=== PATIENT | male | born 1950 | race Caucasian/White ===

== ENCOUNTER → 2018-06-13 | Outpatient (CLI) | payer MEDICARE, BC ==
[2018-06-13 07:38] LABS: ALT 35 U/L (21-72); AST 35 U/L (17-59); Cholesterol 93 mg/dL (<200); HDL Cholesterol 41 mg/dL (40-60); LDL Cholesterol,Calculated 39 mg/dL (0-99); Triglycerides 67 mg/dL (<150)
== END | disposition home or self-care (01) ==
LOC: LABWHC1 06:57
PROVIDERS: ATTEND Internal Medicine Cardiovascular Disease
DX: E78.2 Mixed hyperlipidemia (principal)
CPT/HCPCS: 36415; 80061; 84450; 84460

== ENCOUNTER 2019-03-13 09:09 | Emergency (ER) | payer MEDICARE, BC ==
[2019-03-13 09:13] VITALS: BP 147/68; PULSE 60; RESP 20; TEMP 97.5
[2019-03-13] MEDS ORDERED: FAMOTIDINE 20 MG/2 ML VIAL IV STA (09:23)
[2019-03-13] MEDS ORDERED: diphenhydrAMINE 50 MG/ML 1 ML VIAL IVP STA (09:24)
--- NOTE | 2019-03-13 09:24 | ED ---
Skin/Abscess/FB HPI - General Chief complaint: Skin/Abscess/Foreign Body Stated complaint: blisters Time Seen by Provider: 03/13/19 09:15 Source: patient, family Mode of arrival: ambulatory Limitations: physical limitation - History of Present Illness Initial comments: 63-year-old male past history of insulin-dependent diabetes presenting today for chief complaint of blisters. He states he has a blister on his right anterior knee as well as the inner thighs bilaterally one on each. He denies a surrounding redness he denies any fever chills or night sweats. Patient states after working in the yard, a few hours later while driving he noticed a blister on the right knee that was itchy. Patient states at night we took off his pants he noticed 2 additional blisters one on each thigh. He states therefore fluid. She denies any enlargement or spread the blistered since yesterday evening. He denies any feelings of general malaise he denies any new medications, diarrhea, vomiting. He states he feels fine. Upon arrival pt appears well, no signs of distress. VS within acceptable limits. Afebrile. - Related Data Home Medications Medication Instructions Recorded Confirmed Ammonium Lactate Cream [Lac-Hydrin 1 applic TOPICAL DAILY 03/13/19 03/13/19 12% Cream] Aspirin [[place] Aspirin EC] 81 mg PO DAILY 03/13/19 03/13/19 Clopidogrel [Plavix] 75 mg PO DAILY 03/13/19 03/13/19 Ferrous Sulfate [Iron (65 MG 325 mg PO DAILY 03/13/19 03/13/19 Elemental)] Gabapentin [Neurontin] 300 mg PO TID 03/13/19 03/13/19 Insulin Aspart [NovoLOG] See Protocol SQ AC-TID 03/13/19 03/13/19 Insulin Glargine [Lantus] 26 units SQ DAILY 03/13/19 03/13/19 Isosorbide Mononitrate ER [Imdur] 30 mg PO DAILY 03/13/19 03/13/19 Levothyroxine Sodium [Synthroid] 137 mcg PO DAILY 03/13/19 03/13/19 Lisinopril [Zestril] 2.5 mg PO DAILY 03/13/19 03/13/19 Metoprolol Tartrate [Lopressor] 25 mg PO BID 03/13/19 03/13/19 Pantoprazole Sodium [Protonix] 40 g PO DAILY 03/13/19 03/13/19 Simvastatin [Zocor] 40 mg PO DAILY 03/13/19 03/13/19 amLODIPine [Norvasc] 5 mg PO DAILY 03/13/19 03/13/19 Previous Rx's Medication Instructions Recorded predniSONE 50 mg PO DAILY 5 Days #5 tab 03/13/19 Allergies Allergy/AdvReac Type Severity Reaction Status Date / Time No Known Allergies Allergy Verified 03/13/19 09:35 Review of Systems ROS Statement: Those systems with pertinent positive or pertinent negative responses have been documented in the HPI. ROS Other: All systems not noted in ROS Statement are negative. Past Medical History Past Medical History: Coronary Artery Disease (CAD), Diabetes Mellitus, Hyperlipidemia, Hypertension, Myocardial Infarction ([place]) History of Any Multi-Drug Resistant Organisms: None Reported Past Surgical History: Appendectomy, Coronary Bypass/CABG, Heart Catheterization With Stent Past Psychological History: No Psychological Hx Reported Smoking Status: Never smoker Past Alcohol Use History: Daily Past Drug Use History: None Reported General Exam - General Exam Comments Initial Comments: General: The patient is awake and alert, in no distress, and does not appear acutely ill. Eye: Pupils are equal, round and reactive to light, extra-ocular movements are intact. No nystagmus. There is normal conjunctiva bilaterally. No signs of icterus. Ears, nose, mouth and throat: There are moist mucous membranes and no oral l esions. Neck: The neck is supple, there is no tenderness or JVD. Cardiovascular: There is a regular rate and rhythm. No murmur, rub or gallop is appreciated. Respiratory: Lungs are clear to auscultation, respirations are non-labored, breath sounds are equal. No wheezes, stridor, rales, or rhonchi. Musculoskeletal: Normal ROM, no tenderness. Strength 5/5. Sensation intact. Pulses equal bilaterally 2+. Neurological: A&O x 3. CN II-XII intact, There are no obvious motor or sensory deficits. Coordination appears grossly intact. Speech is normal. Skin: Skin is warm and dry. 3 bullae on skin, one quarter size lesion on the right anterior knee there is no surrounding erythema. Bullae intact. Full of fluid. No evidence of blood or blood filled bullae. No tenderness. Two similar lesions on inner thighs, intact skin full of fluid < 2 inches each without surrounding erythema. No other rash upon full body examination. Psychiatric: Cooperative, appropriate mood & affect, normal judgment. Limitations: physical limitation Course Vital Signs 03/13/19 09:10 Temperature 97.5 F L Pulse Rate 60 Respiratory 20 Rate Blood Pressure 147/68 O2 Sat by Pulse 99 Oximetry Medical Decision Making - Medical Decision Making Very well-appearing 68-year-old male presented for blisters of the right knee and bilateral thighs, 3 blisters in total. There is no surrounding erythema. Nikolsky sign (-). Patient has no constitutional symptoms denies fever chills night sweats. There is no warmth to palpation of the area. There is no blood filled bullae, no evidence of hemorrhage. Patient denies any new medications. Patient denies any spread since last night of the bullae. Pt states he feels great just wanted to have them evaluated. Given physical examination I feel at this time most likely until diagnosis is bullous pemphigoid. I discussed case at length with attending provider reviewing patient medication history at this time we do no identify a specific cause. At this time given it is early in disease process there is possibility ddx of another autoimmune or other cause. Patient's laboratory studies stable. Patient glucose on the lower aspect of normal patient was provided juice. At this time we feel patient should be started on a short course of steroid 50 mg daily for 5 days and follow-up with dermatology as well as primary care provider. Patient instructed return parameters for worsening symptoms, fever spread of bullae erythema or any other concerning signs or symptoms pt is agreeable with care plan and discharge. Verbalized understanding of return parameters and was discharged appearing well - Lab Data Result diagrams: 03/13/19 09:39 03/13/19 09:37 Lab Results 03/13/19 03/13/19 Range/Units 09:37 09:39 WBC 8.1 (3.8-10.6) k/uL RBC 4.77 (4.30-5.90) m/uL Hgb 13.5 (13.0-17.5) gm/dL Hct 43.3 (39.0-53.0) % MCV 90.8 (80.0-100.0) fL MCH 28.2 (25.0-35.0) pg MCHC 31.1 (31.0-37.0) g/dL RDW 13.8 (11.5-15.5) % Plt Count 257 (150-450) k/uL Neutrophils % 61 % Lymphocytes % 24 % Monocytes % 5 % Eosinophils % 6 % Basophils % 1 % Neutrophils # 5.0 (1.3-7.7) k/uL Lymphocytes # 2.0 (1.0-4.8) k/uL Monocytes # 0.4 (0-1.0) k/uL Eosinophils # 0.5 (0-0.7) k/uL Basophils # 0.1 (0-0.2) k/uL Sodium 141 (137-145) mmol/L Potassium 5.3 H (3.5-5.1) mmol/L Chloride 109 H (98-107) mmol/L Carbon Dioxide 23 (22-30) mmol/L Anion Gap 9 mmol/L BUN 32 H (9-20) mg/dL Creatinine 1.13 (0.66-1.25) mg/dL Est GFR (CKD-EPI)AfAm 77 (>60 ml/min/1.73 sqM) Est GFR (CKD-EPI)NonAf 67 (>60 ml/min/1.73 sqM) Glucose 70 L (74-99) mg/dL Calcium 9.3 (8.4-10.2) mg/dL Total Bilirubin 0.5 (0.2-1.3) mg/dL AST 39 (17-59) U/L ALT 27 (21-72) U/L Alkaline Phosphatase 83 (38-126) U/L Total Protein 7.8 (6.3-8.2) g/dL Albumin 4.3 (3.5-5.0) g/dL Disposition Clinical Impression: Bullae, Skin disorder Disposition: HOME SELF-CARE Condition: Good Instructions (If sedation given, give patient instructions): Acute Rash (ED) Additional Instructions: Please use medication as discussed. Please follow-up with family doctor in the next 2 days, review medications. Please follow-up with dermatology in next week. Please return to emergency room if the symptoms increase or worsen or for any other concerns, increased number of blisters, redness, pain/fever. Prescriptions: predniSONE 50 mg PO DAILY 5 Days #5 tab Is patient prescribed a controlled substance at d/c from ED?: No Referrals: Mika Bell DO [Primary Care Provider] - 1-2 days Bev Alcantar MD [STAFF PHYSICIAN] - 1-2 days Time of Disposition: 10:21
[2019-03-13 09:51] LABS: Basophils # (A) 0.1 k/uL (0-0.2); Basophils % (A) 1 %; Eosinophils # (A) 0.5 k/uL (0-0.7); Eosinophils % (A) 6 %; HCT 43.3 % (39.0-53.0); HGB 13.5 gm/dL (13.0-17.5); Lymphocytes % (A) 24 %; MCH 28.2 pg (25.0-35.0); MCHC 31.1 g/dL (31.0-37.0); MCV 90.8 fL (80.0-100.0); Mean Platelet Volume 6.9; Monocytes # (A) 0.4 k/uL (0-1.0); Monocytes % (A) 5 %; Neutrophils % (A) 61 %; Platelet Count 257 k/uL (150-450); RBC 4.77 m/uL (4.30-5.90); RDW 13.8 % (11.5-15.5); WBC 8.1 k/uL (3.8-10.6)
[2019-03-13 10:05] LABS: Albumin 4.3 g/dL (3.5-5.0); Calcium 9.3 mg/dL (8.4-10.2); Potassium 5.3 mmol/L (3.5-5.1); Total Bilirubin 0.5 mg/dL (0.2-1.3); Total Protein 7.8 g/dL (6.3-8.2)
== END 2019-03-13 10:30 | disposition home or self-care (01) ==
LOC: EEVIPCON 09:09 → EC 09:09
DX: L98.9 Disorder of the skin and subcutaneous tissue, unspecified (principal); R23.8 Other skin changes; I25.10 Atherosclerotic heart disease of native coronary artery without angina pectoris; E11.9 Type 2 diabetes mellitus without complications; E78.5 Hyperlipidemia, unspecified; I10 Essential (primary) hypertension; I25.2 Old myocardial infarction; Z79.4 Long term (current) use of insulin; Z79.890 Hormone replacement therapy; Z79.899 Other long term (current) drug therapy; Z79.82 Long term (current) use of aspirin; Z79.02 Long term (current) use of antithrombotics/antiplatelets; Z95.1 Presence of aortocoronary bypass graft; Z95.5 Presence of coronary angioplasty implant and graft
CPT/HCPCS: 36415; 80053; 85025; 99283; 96374; 96375; J1200

== ENCOUNTER → 2019-08-07 | Outpatient (CLI) | payer MEDICARE, BC ==
[2019-08-07 08:37] LABS: HCT 44.4 % (39.0-53.0); HGB 12.9 gm/dL (13.0-17.5); Hypochromasia Moderate; MCH 28.4 pg (25.0-35.0); MCV 97.8 fL (80.0-100.0); Mean Platelet Volume 7.1; Platelet Count 251 k/uL (150-450); RBC 4.55 m/uL (4.30-5.90); RDW 13.9 % (11.5-15.5); WBC 6.1 k/uL (3.8-10.6)
[2019-08-07 16:41] LABS: ALT 18 U/L (10-49); AST 25 U/L (14-35); African American GFR (CKD) 79.5 (60.0-200.0); Albumin/Globulin Ratio 1.56 (1.60-3.17); Alkaline Phosphatase 88 U/L (41-126); Calcium 8.8 mg/dL (8.7-10.3); Carbon Dioxide 24.6 mmol/L (21.6-31.8); Chloride 110 mmol/L (96-109); Chol/HDL Ratio 2.73; Cholesterol 142 mg/dL (0-200); Globulin 2.5 g/dL (1.6-3.3); Glucose 127 mg/dL (70-110); Potassium 5.2 mmol/L (3.5-5.5); Sodium 145 mmol/L (135-145); Total Bilirubin 0.4 mg/dL (0.2-1.2); Total Protein 6.4 g/dL (6.2-8.2); Triglycerides <50.0 mg/dL (0.0-149.0)
[2019-08-10 17:41] LABS: Chromogranin A 455 ng/mL (0-160)
== END | disposition home or self-care (01) ==
LOC: LABWHC1 07:31
PROVIDERS: ATTEND Internal Medicine Hematology & Oncology
DX: C7A.026 Malignant carcinoid tumor of the rectum (principal); E78.2 Mixed hyperlipidemia
CPT/HCPCS: 36415; 80053; 80061; 84260; 85027; 86316

== ENCOUNTER 2020-06-03 11:13 | Emergency (ER) | payer MEDICARE, BC ==
[2020-06-03] MEDS ORDERED: SODIUM CHLORIDE 0.9% 1,000 ML IV STA (11:38)
--- NOTE | 2020-06-03 12:09 | ED ---
Extremity Problem HPI - General Chief complaint: Extremity Problem,Nontraumatic Stated complaint: rt arm pain, neck, head pain Time Seen by Provider: 06/03/20 11:22 Source: patient, family, RN notes reviewed, old records reviewed Mode of arrival: wheelchair Limitations: physical limitation - History of Present Illness Initial comments: 69-year-old male with a history of the center, heart disease, presents emergency room today with complaints of pain on the right arm going into the neck and complaining of a headache. Patient reports that he was laying down and listening to the radio when the symptoms started. He reports the pain seemed be worse with range of motion of the shoulder initially. He denies any heavy lifting fall or trauma to cause onset of pain. He does report history of stroke in the past. Patient's reports symptoms started at 10:30 this morning. He states he felt well prior to this. He states that he had no decrease [employer] strength or weakness in the arm. He states that he has no visual changes. Denies any lower extremity weakness. Patient reports that he lives with his sister whom is his legal guardian. Patient reports the pain was so bad in his arm that he had have a neck that he had have his sister helped him down the stairs. He reports the headaches and be worse after going up and down the stairs each time. - Related Data Home Medications Medication Instructions Recorded Confirmed Aspirin [[place] Aspirin EC] 81 mg PO DAILY 03/13/19 06/03/20 Clopidogrel [Plavix] 75 mg PO DAILY 03/13/19 06/03/20 Ferrous Sulfate [Iron (65 MG 325 mg PO DAILY 03/13/19 06/03/20 Elemental)] Gabapentin [Neurontin] 300 mg PO TID 03/13/19 06/03/20 Insulin Aspart [NovoLOG] See Protocol SQ AC-TID 03/13/19 06/03/20 Insulin Glargine [Lantus] 26 units SQ DAILY 03/13/19 06/03/20 Isosorbide Mononitrate ER [Imdur] 30 mg PO DAILY 03/13/19 06/03/20 Levothyroxine Sodium [Synthroid] 137 mcg PO DAILY 03/13/19 06/03/20 Metoprolol Tartrate [Lopressor] 25 mg PO BID 03/13/19 06/03/20 Pantoprazole Sodium [Protonix] 40 mg PO DAILY 03/13/19 06/03/20 Simvastatin [Zocor] 40 mg PO DAILY 03/13/19 06/03/20 amLODIPine [Norvasc] 5 mg PO DAILY 03/13/19 06/03/20 lisinopriL [Zestril] 2.5 mg PO DAILY 03/13/19 06/03/20 Allergies Allergy/AdvReac Type Severity Reaction Status Date / Time No Known Allergies Allergy Verified 06/03/20 13:32 Review of Systems ROS Statement: Those systems with pertinent positive or pertinent negative responses have been documented in the HPI. ROS Other: All systems not noted in ROS Statement are negative. Past Medical History Past Medical History: Coronary Artery Disease (CAD), Diabetes Mellitus, Hyperlipidemia, Hypertension, Myocardial Infarction ([place]) History of Any Multi-Drug Resistant Organisms: None Reported Past Surgical History: Appendectomy, Coronary Bypass/CABG, Heart Catheterization With Stent Past Psychological History: No Psychological Hx Reported Smoking Status: Never smoker Past Alcohol Use History: Daily Past Drug Use History: None Reported General Exam - General Exam Comments Initial Comments: 69-year-old male. Patient has significant stutter. Limitations: physical limitation General appearance: alert, in no apparent distress Head exam: Present: atraumatic, normocephalic, normal inspection Eye exam: Present: normal appearance, PERRL, EOMI. Absent: scleral icterus, conjunctival injection, periorbital swelling ENT exam: Present: normal exam, mucous membranes moist Neck exam: Present: normal inspection. Absent: tenderness, meningismus, lymphadenopathy Respiratory exam: Present: normal lung sounds bilaterally. Absent: respiratory distress, wheezes, rales, rhonchi, stridor Cardiovascular Exam: Present: regular rate, normal rhythm, normal heart sounds. Absent: systolic murmur, diastolic murmur, rubs, gallop, clicks GI/Abdominal exam: Present: soft, normal bowel sounds. Absent: distended, tenderness, guarding, rebound, rigid Extremities exam: Present: normal inspection, full ROM, normal capillary refill. Absent: tenderness, pedal edema, joint swelling, calf tenderness Back exam: Present: normal inspection Neurological exam: Present: alert, oriented X3, CN II-XII intact Psychiatric exam: Present: normal affect Course Vital Signs 08/05/20 08/05/20 08/05/20 11:16 12:27 13:09 Temperature 97.7 F Pulse Rate 63 61 58 L Respiratory 18 18 16 Rate Blood Pressure 118/77 181/63 147/69 O2 Sat by Pulse 99 100 99 Oximetry Medical Decision Making - Medical Decision Making 69-year-old male presents emergency room today with his sister, his guardian with chief complaint of onset of right-sided shoulder and neck pain and no head pain starting today at 10:30 this morning. Patient is emergency department. No distress. He has full range of motion of the arm and neck. Patient reported the pain was worse after going down the steps. Discussed possible muscular skeletal or nerve impingement injury. He doesn't complain at the scene. Concerning headache. He has no acute neurological deficits on exam initially exam. He has full range of motion of the hand shoulder and neck. Patient's labs reviewedsignificant change since mild elevated potassium but could be hemolyzed. EKG shows no acute changes. Shoulder x-rays reviewed just shows some degenerative changes but no acute fracture. CT of the brain and C-spine and C-spine were completed and showed no acute intracranial hemorrhage. No sign of cervical spine fracture. He does have degenerative changes at C2-C3 to C5-C6.Patient was noted to be hypertensive while he is making her and was given a dose of IV labetalol and blood pressure improved well. He states that even before treatment he is feeling much better of his head and neck pain. I discussed the case with Dr. Persaud whom evaluated the Patient as well. Determine most likely muscular skeletal origin with worsening pain going on the steps and advised Patient to follow-up tomorrow with his primary care doctor. At this time. Again he has no acute neurological deficits. Blood pressure is normalized he has full range of motion of the arm. - Lab Data Result diagrams: 06/03/20 11:51 06/03/20 11:51 Lab Results 06/03/20 06/03/20 06/03/20 Range/Units 11:51 11:51 11:51 WBC 7.2 (3.8-10.6) k/uL RBC 4.88 (4.30-5.90) m/uL Hgb 14.5 (13.0-17.5) gm/dL Hct 46.2 (39.0-53.0) % MCV 94.5 (80.0-100.0) fL MCH 29.6 (25.0-35.0) pg MCHC 31.3 (31.0-37.0) g/dL RDW 13.4 (11.5-15.5) % Plt Count 232 (150-450) k/uL Neutrophils % 70 % Lymphocytes % 17 % Monocytes % 5 % Eosinophils % 5 % Basophils % 2 % Neutrophils # 5.0 (1.3-7.7) k/uL Lymphocytes # 1.3 (1.0-4.8) k/uL Monocytes # 0.3 (0-1.0) k/uL Eosinophils # 0.3 (0-0.7) k/uL Basophils # 0.1 (0-0.2) k/uL PT 9.7 (9.0-12.0) sec INR 0.9 (<1.2) APTT 21.2 L (22.0-30.0) sec Sodium 137 (137-145) mmol/L Potassium 5.7 H (3.5-5.1) mmol/L Chloride 108 H (98-107) mmol/L Carbon Dioxide 23 (22-30) mmol/L Anion Gap 6 mmol/L BUN 29 H (9-20) mg/dL Creatinine 0.97 (0.66-1.25) mg/dL Est GFR (CKD-EPI)AfAm >90 (>60 ml/min/1.73 sqM) Est GFR (CKD-EPI)NonAf 80 (>60 ml/min/1.73 sqM) Glucose 216 H (74-99) mg/dL Calcium 9.2 (8.4-10.2) mg/dL Total Bilirubin 0.6 (0.2-1.3) mg/dL AST 28 (17-59) U/L ALT 15 (4-49) U/L Alkaline Phosphatase 106 (38-126) U/L Total Protein 7.3 (6.3-8.2) g/dL Albumin 4.0 (3.5-5.0) g/dL 06/03/20 12:52 Patient's EKG shows sinus bradycardia with occasional PVCs, possible left atrial monitor. Low voltage QRS. Borderline EKG. Ventricular rate of 58 bpm. Intervals 180 ms. QS duration is 84 ms. QT QTc is 402/443 ms. - Radiology Data Radiology results: report reviewed Shoulder x-ray shows no fracture dislocation evident the shoulder. Well-defined curvilinear fragment of the distal clavicle could represent products of old i njury. Alignment of the inferior clot distal clavicle to the inferior acromion is satisfactory. Moderate glenohumeral joint narrowing without significant spurring. Visually was ribs are normal. Visualization of sternal wires is noted. Computed tomography scan shows no acute fracture dislocation evident cervical spine. No acute intracranial hemorrhage or midline shift is seen. Disposition Clinical Impression: Right shoulder pain, Neck muscle spasm Disposition: HOME SELF-CARE Condition: Good Instructions (If sedation given, give patient instructions): Muscle Spasm (ED) Additional Instructions: Patient is to take Motrin Tylenol for pain. Follow-up with PCP. Return to the emergency department if any alarming signs or symptoms occur. Is patient prescribed a controlled substance at d/c from ED?: No Referrals: Mika Bell DO [Primary Care Provider] - 1-2 days Time of Disposition: 13:58
[2020-06-03 12:12] LABS: Basophils # (A) 0.1 k/uL (0-0.2); Basophils % (A) 2 %; Eosinophils # (A) 0.3 k/uL (0-0.7); Eosinophils % (A) 5 %; HCT 46.2 % (39.0-53.0); HGB 14.5 gm/dL (13.0-17.5); Lymphocytes # (A) 1.3 k/uL (1.0-4.8); Lymphocytes % (A) 17 %; MCH 29.6 pg (25.0-35.0); MCHC 31.3 g/dL (31.0-37.0); MCV 94.5 fL (80.0-100.0); Mean Platelet Volume 7.6; Monocytes # (A) 0.3 k/uL (0-1.0); Monocytes % (A) 5 %; Neutrophils % (A) 70 %; Platelet Count 232 k/uL (150-450); RBC 4.88 m/uL (4.30-5.90); RDW 13.4 % (11.5-15.5); WBC 7.2 k/uL (3.8-10.6)
[2020-06-03 12:22] LABS: ALT 15 U/L (4-49); AST 28 U/L (17-59); African American GFR (CKD) >90 (>60 ml/min/1.73 sqM); Alkaline Phosphatase 106 U/L (38-126); Anion Gap 6 mmol/L; Blood Urea Nitrogen 29 mg/dL (9-20); Calcium 9.2 mg/dL (8.4-10.2); Carbon Dioxide 23 mmol/L (22-30); Chloride 108 mmol/L (98-107); Glucose 216 mg/dL (74-99); Non-African American GFR(CKD) 80 (>60 ml/min/1.73 sqM); Potassium 5.7 mmol/L (3.5-5.1); Sodium 137 mmol/L (137-145); Total Bilirubin 0.6 mg/dL (0.2-1.3); Total Protein 7.3 g/dL (6.3-8.2)
--- NOTE | 2020-06-03 12:29 | CT ---
EXAMINATION TYPE: CT brain [facility] DATE OF EXAM: 06/03/2020 COMPARISON: NONE HISTORY: Head and neck pain, right arm numbness and pain. History of stroke. CT DLP: 1448.2 mGycm. Automated Exposure Control for Dose Reduction was Utilized. TECHNIQUE: CT scan of the head and cervical spine are performed without contrast. FINDINGS: There is no acute intracranial hemorrhage or midline shift identified. Diffuse ventricula r and sulcal prominence consistent with moderate generalized atrophy. The calvarium is intact. Persis tent anterior metopic suture incidentally noted. The globes are intact and the visualized sinuses ar e clear. Cervical spine is visualized in its entirety from C1 through upper thoracic levels and demonstrates l oss of normal cervical curvature without evidence of acute fracture or dislocation. Prevertebral sof t tissue appears within normal limits. The C1-C2 articulation is within normal limits on the coronal images. Vertebral body heights are maintained. Moderate to borderline severe multilevel spurring and disc space narrowing C3-C4 through the C6-C7 levels is present. Posterior spur disc complexes are se en effacing anterior thecal sac at these levels on sagittal and axial images. Axial images reveal uncovertebral facet spurring causing multilevel bilateral neural foraminal narrow ing. Thyroid gland is somewhat small in size. Lung apices show moderate bilateral pleural/parenchymal scarring. There is moderate to severe calcified plaque at bilateral carotid bulb level noted. IMPRESSION: 1. There is no acute fracture or dislocation evident in the cervical spine. 2. No acute intracranial hemorrhage or midline shift is seen.
--- NOTE | 2020-06-03 12:30 | XR ---
EXAMINATION TYPE: XR shoulder complete RT DATE OF EXAM: 06/03/2020 CLINICAL HISTORY: Right shoulder pain. TECHNIQUE: Three views of the right shoulder are obtained. COMPARISON: None. FINDINGS: There is no acute fracture/dislocation evident in the right shoulder. Well-defined curvili near fragment from the distal clavicle could reflect product of old injury. Alignment of the inferior distal clavicle to the inferior acromion in satisfactory. Moderate narrowing glenohumeral joint with out significant spurring. The visualized ribs are intact and unremarkable. Partial visualization of s ternal wires. IMPRESSION: As above
[2020-06-03 12:36] LABS: INR 0.9 (<1.2); Prothrombin Time 9.7 sec (9.0-12.0)
[2020-06-03] MEDS ORDERED: ORPHENADRINE 30 MG/ML 2 ML VIAL IVP STA (12:41)
[2020-06-03 12:42] LABS: Partial Thromboplastin Time 21.2 sec (22.0-30.0)
[2020-06-03] MEDS ORDERED: KETOROLAC 30 MG/ML 1 ML VIAL IVP STA (12:42)
[2020-06-03] MEDS ORDERED: LABETALOL 5 MG/ML VIAL MDV IVP STA (12:43)
[2020-06-03 13:10] VITALS: RESP 16
[2020-06-03 14:10] VITALS: BP 167/60; PULSE 72; TEMP 98
== END 2020-06-03 14:09 | disposition home or self-care (01) ==
LOC: EC 11:13
DX: M25.511 Pain in right shoulder (principal); M62.838 Other muscle spasm; I25.10 Atherosclerotic heart disease of native coronary artery without angina pectoris; I10 Essential (primary) hypertension; E11.9 Type 2 diabetes mellitus without complications; E78.5 Hyperlipidemia, unspecified; I25.2 Old myocardial infarction; Z79.890 Hormone replacement therapy; Z79.4 Long term (current) use of insulin; Z79.02 Long term (current) use of antithrombotics/antiplatelets; Z79.899 Other long term (current) drug therapy; Z95.1 Presence of aortocoronary bypass graft; Z95.5 Presence of coronary angioplasty implant and graft; Z86.73 Personal history of transient ischemic attack (TIA), and cerebral infarction without residual deficits
CPT/HCPCS: 36415; 93005; 80053; 85025; 85610; 85730; 73030; 72125; 70450; 99285; 96374; 96375 ×2; 96361 ×2; J2360; J1885

== ENCOUNTER → 2020-08-19 | Outpatient (CLI) | payer MEDICARE, BC ==
[2020-08-19 11:34] LABS: ALT 24 U/L (10-49); AST 26 U/L (14-35); Chol/HDL Ratio 3.02; Cholesterol 151 mg/dL (0-200); Triglycerides <50.0 mg/dL (0.0-149.0)
== END | disposition home or self-care (01) ==
LOC: LABWHC1 07:40
PROVIDERS: ATTEND Internal Medicine Cardiovascular Disease
DX: E78.2 Mixed hyperlipidemia (principal)
CPT/HCPCS: 36415; 80061; 84450; 84460

== ENCOUNTER 2021-03-30 14:32 | Emergency (ER) | payer MEDICARE, BC ==
--- NOTE | 2021-03-30 15:31 | ED ---
General Adult HPI - General Chief complaint: Recheck/Abnormal Lab/Rx Stated complaint: abnormal labs, sent from dr Time Seen by Provider: 03/30/21 15:30 Source: patient Mode of arrival: ambulatory Limitations: no limitations - History of Present Illness Initial comments: Patient is 70-year-old man here to have recheck for suspected hyperkalemia. Patient had labs drawn earlier today and received call back for potassium 6.7 -: hour(s) Severity scale (1-10): 0 Improves with: none Worsens with: none Associated Symptoms: denies other symptoms Treatments Prior to Arrival: none - Related Data Home Medications Medication Instructions Recorded Confirmed Aspirin [[place] Aspirin EC] 81 mg PO DAILY 03/13/19 03/30/21 Clopidogrel [Plavix] 75 mg PO DAILY 03/13/19 03/30/21 Ferrous Sulfate [Iron (65 MG 325 mg PO DAILY 03/13/19 03/30/21 Elemental)] Gabapentin [Neurontin] 300 mg PO TID 03/13/19 03/30/21 Isosorbide Mononitrate ER [Imdur] 30 mg PO DAILY 03/13/19 03/30/21 Levothyroxine Sodium [Synthroid] 137 mcg PO DAILY 03/13/19 03/30/21 Metoprolol Tartrate [Lopressor] 25 mg PO BID 03/13/19 03/30/21 Pantoprazole Sodium [Protonix] 40 mg PO DAILY 03/13/19 03/30/21 Simvastatin [Zocor] 40 mg PO DAILY 03/13/19 03/30/21 amLODIPine [Norvasc] 5 mg PO DAILY 03/13/19 03/30/21 Insulin Aspart [NovoLOG Flexpen] See Protocol SQ AC-TID 03/30/21 03/30/21 Insulin Glargine,Hum.rec.anlog 20 unit SQ HS 03/30/21 03/30/21 [Lantus Solostar] Lisinopril [Zestril] 10 mg PO DAILY 03/30/21 03/30/21 Allergies Allergy/AdvReac Type Severity Reaction Status Date / Time No Known Allergies Allergy Verified 03/30/21 17:17 Review of Systems ROS Statement: Those systems with pertinent positive or pertinent negative responses have been documented in the HPI. ROS Other: All systems not noted in ROS Statement are negative. Constitutional: Denies: fever, chills, weakness Respiratory: Denies: cough, dyspnea Cardiovascular: Denies: chest pain, palpitations Gastrointestinal: Denies: abdominal pain, nausea, vomiting, diarrhea Genitourinary: Denies: dysuria Musculoskeletal: Denies: back pain Skin: Denies: rash Neurological: Denies: headache, weakness Past Medical History Past Medical History: Coronary Artery Disease (CAD), Diabetes Mellitus, Hyperlipidemia, Hypertension, Myocardial Infarction ([place]) History of Any Multi-Drug Resistant Organisms: None Reported Past Surgical History: Appendectomy, Coronary Bypass/CABG, Heart Catheterization With Stent Past Psychological History: No Psychological Hx Reported Smoking Status: Never smoker Past Alcohol Use History: Daily Past Drug Use History: None Reported General Exam Limitations: no limitations General appearance: alert, in no apparent distress Head exam: Present: atraumatic, normocephalic Eye exam: Present: normal appearance. Absent: scleral icterus, conjunctival injection Respiratory exam: Present: normal lung sounds bilaterally. Absent: respiratory distress, wheezes, rales, rhonchi, stridor Cardiovascular Exam: Present: regular rate, normal rhythm, normal heart sounds. Absent: systolic murmur, diastolic murmur, rubs, gallop GI/Abdominal exam: Present: soft. Absent: distended, tenderness, guarding, rebound, rigid, mass Extremities exam: Present: normal inspection, normal capillary refill Neurological exam: Present: alert. Absent: motor sensory deficit Skin exam: Present: warm, dry, intact, normal color. Absent: rash Course Vital Signs 03/30/21 03/30/21 14:58 16:50 Temperature 97.6 F Pulse Rate 51 L 52 L Respiratory 16 18 Rate Blood Pressure 123/64 148/69 O2 Sat by Pulse 98 99 Oximetry EKG Findings - EKG Results: EKG: interpreted by ERMD, sinus rhythm, normal axis, normal QRS EKG shows: bradycardia (Rate proximally 48 bpm) Medical Decision Making - Lab Data Result diagrams: 03/30/21 15:38 03/30/21 15:38 Lab Results 03/30/21 03/30/21 03/30/21 Range/Units 15:34 15:38 15:38 WBC 6.5 (3.8-10.6) k/uL RBC 4.43 (4.30-5.90) m/uL Hgb 13.1 (13.0-17.5) gm/dL Hct 41.5 (39.0-53.0) % MCV 93.6 (80.0-100.0) fL MCH 29.7 (25.0-35.0) pg MCHC 31.7 (31.0-37.0) g/dL RDW 13.0 (11.5-15.5) % Plt Count 269 (150-450) k/uL MPV 7.0 Neutrophils % 58 % Lymphocytes % 29 % Monocytes % 5 % Eosinophils % 4 % Basophils % 1 % Neutrophils # 3.8 (1.3-7.7) k/uL Lymphocytes # 1.9 (1.0-4.8) k/uL Monocytes # 0.4 (0-1.0) k/uL Eosinophils # 0.3 (0-0.7) k/uL Basophils # 0.1 (0-0.2) k/uL Sodium 138 (137-145) mmol/L Potassium 4.3 (3.5-5.1) mmol/L Chloride 105 (98-107) mmol/L Carbon Dioxide 26 (22-30) mmol/L Anion Gap 7 mmol/L BUN 33 H (9-20) mg/dL Creatinine 1.13 (0.66-1.25) mg/dL Est GFR (CKD-EPI)AfAm 76 (>60 ml/min/1.73 sqM) Est GFR (CKD-EPI)NonAf 66 (>60 ml/min/1.73 sqM) Glucose 35 L* (74-99) mg/dL POC Glucose (mg/dL) (75-99) mg/dL POC Glu Remelt Pan Tank Operator ID Plasma Lactic Acid Selvin (0.7-2.0) mmol/L Calcium 9.6 (8.4-10.2) mg/dL Magnesium 2.1 (1.6-2.3) mg/dL Total Bilirubin 0.2 (0.2-1.3) mg/dL AST 25 (17-59) U/L ALT 14 (4-49) U/L Alkaline Phosphatase 103 (38-126) U/L Total Protein 7.7 (6.3-8.2) g/dL Albumin 4.4 (3.5-5.0) g/dL Acetone, Qual Negative (Negative) 0603/30/21 03/30/21 Range/Units 16:40 16:49 17:16 WBC (3.8-10.6) k/uL RBC (4.30-5.90) m/uL Hgb (13.0-17.5) gm/dL Hct (39.0-53.0) % MCV (80.0-100.0) fL MCH (25.0-35.0) pg MCHC (31.0-37.0) g/dL RDW (11.5-15.5) % Plt Count (150-450) k/uL MPV Neutrophils % % Lymphocytes % % Monocytes % % Eosinophils % % Basophils % % Neutrophils # (1.3-7.7) k/uL Lymphocytes # (1.0-4.8) k/uL Monocytes # (0-1.0) k/uL Eosinophils # (0-0.7) k/uL Basophils # (0-0.2) k/uL Sodium (137-145) mmol/L Potassium (3.5-5.1) mmol/L Chloride (98-107) mmol/L Carbon Dioxide (22-30) mmol/L Anion Gap mmol/L BUN (9-20) mg/dL Creatinine (0.66-1.25) mg/dL Est GFR (CKD-EPI)AfAm (>60 ml/min/1.73 sqM) Est GFR (CKD-EPI)NonAf (>60 ml/min/1.73 sqM) Glucose (74-99) mg/dL POC Glucose (mg/dL) 73 L 119 H (75-99) mg/dL POC Glu Remelt Pan Tank Operator ID Doron, Vivienne Doron, Vivienne Plasma Lactic Acid Selvin 5.1 H* (0.7-2.0) mmol/L Calcium (8.4-10.2) mg/dL Magnesium (1.6-2.3) mg/dL Total Bilirubin (0.2-1.3) mg/dL AST (17-59) U/L ALT (4-49) U/L Alkaline Phosphatase (38-126) U/L Total Protein (6.3-8.2) g/dL Albumin (3.5-5.0) g/dL Acetone, Qual (Negative) Disposition Clinical Impression: Feared condition not demonstrated Disposition: HOME SELF-CARE Condition: Good Instructions (If sedation given, give patient instructions): Hyperkalemia (ED) Is patient prescribed a controlled substance at d/c from ED?: No Referrals: Mika Bell DO [Primary Care Provider] - 1-2 days
[2021-03-30] MEDS ORDERED: SODIUM CHLORIDE 0.9% 500 ML 500 ML IV STA (15:39)
[2021-03-30 15:45] LABS: Basophils # (A) 0.1 k/uL (0-0.2); Basophils % (A) 1 %; Eosinophils # (A) 0.3 k/uL (0-0.7); Eosinophils % (A) 4 %; HCT 41.5 % (39.0-53.0); HGB 13.1 gm/dL (13.0-17.5); Lymphocytes # (A) 1.9 k/uL (1.0-4.8); Lymphocytes % (A) 29 %; MCH 29.7 pg (25.0-35.0); MCHC 31.7 g/dL (31.0-37.0); MCV 93.6 fL (80.0-100.0); Monocytes # (A) 0.4 k/uL (0-1.0); Monocytes % (A) 5 %; Neutrophils # (A) 3.8 k/uL (1.3-7.7); Neutrophils % (A) 58 %; Platelet Count 269 k/uL (150-450); RBC 4.43 m/uL (4.30-5.90); WBC 6.5 k/uL (3.8-10.6)
[2021-03-30 15:55] LABS: Magnesium 2.1 mg/dL (1.6-2.3)
[2021-03-30 15:56] LABS: Albumin 4.4 g/dL (3.5-5.0); Calcium 9.6 mg/dL (8.4-10.2); Potassium 4.3 mmol/L (3.5-5.1); Total Bilirubin 0.2 mg/dL (0.2-1.3); Total Protein 7.7 g/dL (6.3-8.2)
[2021-03-30 16:52] LABS: Glucose,Whole Blood 73 mg/dL (75-99)
[2021-03-30 17:01] VITALS: RESP 18
[2021-03-30 17:17] LABS: Glucose,Whole Blood 119 mg/dL (75-99)
[2021-03-30 18:00] LABS: Calcium 9.2 mg/dL (8.4-10.2); Potassium 4.8 mmol/L (3.5-5.1)
[2021-03-30 18:15] VITALS: BP 149/66; PULSE 67; TEMP 98.1
== END 2021-03-30 18:22 | disposition home or self-care (01) ==
LOC: EC 14:32
DX: Z71.1 Person with feared health complaint in whom no diagnosis is made (principal); E11.9 Type 2 diabetes mellitus without complications; I10 Essential (primary) hypertension; E78.5 Hyperlipidemia, unspecified; I25.2 Old myocardial infarction; Z86.79 Personal history of other diseases of the circulatory system; Z79.82 Long term (current) use of aspirin; Z79.4 Long term (current) use of insulin; Z79.899 Other long term (current) drug therapy
CPT/HCPCS: 36415; 80048; 80053; 80061; 82009; 83036; 83605; 83735; 84439; 84443; 84450; 84460; 85025; 85027; 93005; 96360; 96361; 99283

== ENCOUNTER → 2021-03-30 | Outpatient (CLI) | payer MEDICARE, BC ==
[2021-03-30 11:28] LABS: HCT 41.8 % (39.6-50.0); MCH 29.7 pg (27.0-32.0); MCHC 31.1 g/dL (32.0-37.0); MCV 95.4 fL (80.0-97.0); Mean Platelet Volume 10.2 fL (9.5-12.2); Platelet Count 236 X 10*3/uL (140-440); RBC 4.38 X 10*6/uL (4.40-5.60)
[2021-03-30 11:59] LABS: African American GFR (CKD) 58.6 (60.0-200.0); Anion Gap 5.4 mmol/L (4.00-12.00); BUN/Creat Ratio 23.57 Ratio (12.00-20.00); Calcium 9.2 mg/dL (8.7-10.3); Carbon Dioxide 27.6 mmol/L (21.6-31.8); Chol/HDL Ratio 3.45; LDL Cholesterol,Calculated 100.4 mg/dL (0.0-131.0); Non-African American GFR(CKD) 50.5 (60.0-200.0); Potassium 6.7 mmol/L (3.5-5.5); Prostate Specific Antigen 0.6 ng/mL (0.0-6.5); VLDL Calculation 14.6 mg/dL (5.00-40.00)
[2021-03-30 12:55] LABS: Hemoglobin A1C 7.8 % (4.0-6.0)
== END | disposition home or self-care (01) ==
LOC: LABWHC1 07:19
PROVIDERS: ATTEND Internal Medicine Cardiovascular Disease
DX: D29.1 Benign neoplasm of prostate (principal); I10 Essential (primary) hypertension; E78.2 Mixed hyperlipidemia; E78.5 Hyperlipidemia, unspecified; E11.65 Type 2 diabetes mellitus with hyperglycemia; E03.9 Hypothyroidism, unspecified
CPT/HCPCS: 36415; 80048; 80061; 83036; 84153; 84439; 84443; 84450; 84460; 85027

== ENCOUNTER 2022-07-01 14:49 | Emergency (ER) | payer MEDICARE, BC ==
[2022-07-01 15:11] VITALS: PULSE 74; RESP 18; TEMP 98
--- NOTE | 2022-07-01 17:05 | ED ---
General Adult HPI - General Chief complaint: Recheck/Abnormal Lab/Rx Stated complaint: Irregular labs-sent by PCP Time Seen by Provider: 07/01/22 16:34 Source: patient Mode of arrival: ambulatory Limitations: no limitations - History of Present Illness Initial comments: Patient is a 71-year-old man who presents from his primary care office for suspected hyperkalemia. Patient had recent checkup with labs drawn and was called today due to high potassium and instructed to report to the emergency department. Patient states he feels well. Denies fever, chills, shortness of breath, chest pain, abdominal pain, nausea, vomiting, paresthesias, weakness. - Related Data Home Medications Medication Instructions Recorded Confirmed Aspirin [[place] Aspirin EC] 81 mg PO DAILY 03/13/19 03/30/21 Clopidogrel [Plavix] 75 mg PO DAILY 03/13/19 03/30/21 Ferrous Sulfate [Iron (65 MG 325 mg PO DAILY 03/13/19 03/30/21 Elemental)] Gabapentin [Neurontin] 300 mg PO TID 03/13/19 03/30/21 Isosorbide Mononitrate ER [Imdur] 30 mg PO DAILY 03/13/19 03/30/21 Levothyroxine Sodium [Synthroid] 137 mcg PO DAILY 03/13/19 03/30/21 Metoprolol Tartrate [Lopressor] 25 mg PO BID 03/13/19 03/30/21 Pantoprazole Sodium [Protonix] 40 mg PO DAILY 03/13/19 03/30/21 Simvastatin [Zocor] 40 mg PO DAILY 03/13/19 03/30/21 amLODIPine [Norvasc] 5 mg PO DAILY 03/13/19 03/30/21 Insulin Aspart [NovoLOG Flexpen] See Protocol SQ AC-TID 03/30/21 03/30/21 Insulin Glargine,Hum.rec.anlog 20 unit SQ HS 03/30/21 03/30/21 [Lantus Solostar] lisinopriL [Zestril] 10 mg PO DAILY 03/30/21 03/30/21 Allergies Allergy/AdvReac Type Severity Reaction Status Date / Time No Known Allergies Allergy Verified 07/01/22 15:11 Review of Systems ROS Statement: Those systems with pertinent positive or pertinent negative responses have been documented in the HPI. ROS Other: All systems not noted in ROS Statement are negative. Past Medical History Past Medical History: Coronary Artery Disease (CAD), Diabetes Mellitus, Hyperlipidemia, Hypertension, Myocardial Infarction ([place]) History of Any Multi-Drug Resistant Organisms: None Reported Past Surgical History: Appendectomy, Coronary Bypass/CABG, Heart Catheterization With Stent Past Psychological History: No Psychological Hx Reported Smoking Status: Never smoker Past Alcohol Use History: Daily Past Drug Use History: None Reported General Exam Limitations: no limitations Course Vital Signs 07/01/22 07/01/22 15:06 17:18 Temperature 98.0 F Pulse Rate 74 Respiratory 18 Rate Blood Pressure 86/54 144/59 O2 Sat by Pulse 96 Oximetry EKG Findings - EKG Comments: EKG Findings:: EKG taken at 16:53. Sinus bradycardia, no ST or T-wave abnormalities. Ventricular rate 56. IA interval 204. QRS duration 98. QTc 43 7 Medical Decision Making - Medical Decision Making This 71-year-old male who presents for evaluation of possible hyperkalemia. Thorough history and examination were performed. Potassium is 4.8. Patient to follow-up with primary care provider. Dr. Cope is my attending. - Lab Data Result diagrams: 07/01/22 17:08 07/01/22 17:08 Lab Results 07/01/22 07/01/22 Range/Units 17:08 17:08 WBC 6.0 (3.8-10.6) k/uL RBC 4.30 (4.30-5.90) m/uL Hgb 12.8 L (13.0-17.5) gm/dL Hct 41.1 (39.0-53.0) % MCV 95.5 (80.0-100.0) fL MCH 29.8 (25.0-35.0) pg MCHC 31.2 (31.0-37.0) g/dL RDW 13.1 (11.5-15.5) % Plt Count 216 (150-450) k/uL MPV 8.3 Neutrophils % 54 % Lymphocytes % 32 % Monocytes % 6 % Eosinophils % 4 % Basophils % 2 % Neutrophils # 3.2 (1.3-7.7) k/uL Lymphocytes # 1.9 (1.0-4.8) k/uL Monocytes # 0.3 (0-1.0) k/uL Eosinophils # 0.3 (0-0.7) k/uL Basophils # 0.1 (0-0.2) k/uL Hypochromasia Slight Sodium 142 (137-145) mmol/L Potassium 4.8 (3.5-5.1) mmol/L Chloride 104 (98-107) mmol/L Carbon Dioxide 25 (22-30) mmol/L Anion Gap 13 mmol/L BUN 36 H (9-20) mg/dL Creatinine 1.13 (0.66-1.25) mg/dL Est GFR (CKD-EPI)AfAm 76 (>60 ml/min/1.73 sqM) Est GFR (CKD-EPI)NonAf 65 (>60 ml/min/1.73 sqM) Glucose 87 (74-99) mg/dL Calcium 9.2 (8.4-10.2) mg/dL Total Bilirubin 0.3 (0.2-1.3) mg/dL AST 30 (17-59) U/L ALT 28 (4-49) U/L Alkaline Phosphatase 104 (38-126) U/L Total Protein 7.0 (6.3-8.2) g/dL Albumin 4.1 (3.5-5.0) g/dL Disposition Clinical Impression: Feared condition not demonstrated Disposition: HOME SELF-CARE Condition: Good Instructions (If sedation given, give patient instructions): Hyperkalemia (ED) Additional Instructions: Follow-up with primary care provider in one to 2 days. Return to the emergency department experience new, concerning, or worsening symptoms. Is patient prescribed a controlled substance at d/c from ED?: No Referrals: Mika Bell DO [Primary Care Provider] - 1-2 days Time of Disposition: 18:05
[2022-07-01 17:23] LABS: Basophils # (A) 0.1 k/uL (0-0.2); Basophils % (A) 2 %; Eosinophils # (A) 0.3 k/uL (0-0.7); Eosinophils % (A) 4 %; HCT 41.1 % (39.0-53.0); HGB 12.8 gm/dL (13.0-17.5); Hypochromasia Slight; Lymphocytes # (A) 1.9 k/uL (1.0-4.8); Lymphocytes % (A) 32 %; MCH 29.8 pg (25.0-35.0); MCHC 31.2 g/dL (31.0-37.0); MCV 95.5 fL (80.0-100.0); Mean Platelet Volume 8.3; Monocytes # (A) 0.3 k/uL (0-1.0); Monocytes % (A) 6 %; Neutrophils # (A) 3.2 k/uL (1.3-7.7); Neutrophils % (A) 54 %; Platelet Count 216 k/uL (150-450); RDW 13.1 % (11.5-15.5)
[2022-07-01 17:35] LABS: Albumin 4.1 g/dL (3.5-5.0); Calcium 9.2 mg/dL (8.4-10.2); Potassium 4.8 mmol/L (3.5-5.1); Total Bilirubin 0.3 mg/dL (0.2-1.3)
[2022-07-01 18:39] VITALS: BP 142/80
== END 2022-07-01 18:38 | disposition home or self-care (01) ==
LOC: EC 14:49
DX: Z71.1 Person with feared health complaint in whom no diagnosis is made (principal); R00.1 Bradycardia, unspecified; I25.10 Atherosclerotic heart disease of native coronary artery without angina pectoris; E11.9 Type 2 diabetes mellitus without complications; E78.5 Hyperlipidemia, unspecified; I10 Essential (primary) hypertension; I25.2 Old myocardial infarction; Z79.82 Long term (current) use of aspirin; Z79.02 Long term (current) use of antithrombotics/antiplatelets; Z79.4 Long term (current) use of insulin; Z79.899 Other long term (current) drug therapy
CPT/HCPCS: 36415; 80053; 85025; 93005; 99283

== ENCOUNTER → 2022-07-22 | Outpatient (CLI) | payer MEDICARE, BC ==
--- NOTE | 2022-07-22 14:54 | CT ---
EXAMINATION TYPE: CT ChestAbdPelvis w con DATE OF EXAM: 07/22/2022 COMPARISON: None HISTORY: Abnormal weight loss CT DLP: 881.70 mGycm CONTRAST: CT scan of the chest, abdomen and pelvis is performed with Oral Contrast and with IV Contrast, patien t injected with 70 mL of Isovue 300. CT Chest: LUNGS: There is biapical scarring. Subpleural fibrotic changes mild in degree are seen bilaterally. T he lungs are clear and free of infiltrate or atelectasis. No pulmonary nodule or mass is detected. No pleural effusion. MEDIASTINUM: Thoracic aorta is of normal caliber. The heart is not enlarged. No evidence for media stinal mass or adenopathy. HILAR STRUCTURES: No evidence for mass. No hilar adenopathy is appreciated. OTHER: No significant abnormality. CONTRAST CT ABDOMEN AND PELVIS FINDINGS: LIVER/GB: No calcified gallstones. No space occupying hepatic lesion. Biliary tree is of normal ca liber. PANCREAS: No inflammation. No distinct mass. SPLEEN: No splenic enlargement. No lesion seen. ADRENALS: No nodule. No thickening. KIDNEYS/BLADDER: No hydronephrosis. No nephrolithiasis. No disctinct renal mass. BOWEL: Normal appendix. Normal bowel caliber. No inflammation. GENITAL ORGANS: No gross abnormality. LYMPH NODES: No greater than 1cm abdominal or pelvic lymph nodes are appreciated. AORTA: No significant abnormality. OSSEOUS STRUCTURES: Moderate to severe degenerative change scattered throughout the mid and lower tho racic spine as well as the lumbar spine. OTHER: No significant additional abnormality is seen. IMPRESSION: 1. Significant abnormality to account for the patient's symptoms of weight loss.
== END | disposition home or self-care (01) ==
LOC: RADCTMAIN 11:49
PROVIDERS: ATTEND Family Medicine
DX: R91.8 Other nonspecific abnormal finding of lung field (principal)
CPT/HCPCS: 82565; 84520; 71260; 74177; 36415; Q9967

== ENCOUNTER 2023-04-07 17:27 | Emergency (ER) | payer MEDICARE, BC ==
[2023-04-07 17:47] VITALS: RESP 18
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
--- NOTE | 2023-04-07 19:03 | XR ---
EXAMINATION TYPE: XR Hip RT and AP Pelvis DATE OF EXAM: 04/07/2023 6:27 PM INDICATION: Patient age:Male; 72 years old; Reason for study: Right hip pain; PHH. COMPARISON: None. TECHNIQUE: The right hip was examined in the frontal and lateral projections and a AP pelvis. FINDINGS: No evidence for acute process, joint dislocation or significant soft tissue swelling. Osteo phyte formation of the superior acetabulum of the hips. Cam deformities of the femoral heads. Multile french disc degeneration changes of the spine. IMPRESSION: 1. No evidence for acute process. 2. Mild hip osteoarthrosis. 3. 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 4. Severe atherosclerosis.
[2023-04-07 19:40] VITALS: BP 212/78; PULSE 62; TEMP 98.5
== END 2023-04-07 19:43 | disposition home or self-care (01) ==
LOC: EC 17:27
DX: S70.01XA Contusion of right hip, initial encounter (principal); S70.11XA Contusion of right thigh, initial encounter; S50.311A Abrasion of right elbow, initial encounter; M23.91 Unspecified internal derangement of right knee; I25.10 Atherosclerotic heart disease of native coronary artery without angina pectoris; E11.9 Type 2 diabetes mellitus without complications; E78.5 Hyperlipidemia, unspecified; I10 Essential (primary) hypertension; I25.2 Old myocardial infarction; F12.90 Cannabis use, unspecified, uncomplicated; Z79.4 Long term (current) use of insulin; Z79.899 Other long term (current) drug therapy; Z79.82 Long term (current) use of aspirin; Z79.02 Long term (current) use of antithrombotics/antiplatelets; W19.XXXA Unspecified fall, initial encounter
CPT/HCPCS: 73502; 99283

== ENCOUNTER 2023-04-13 12:33 | Inpatient (IN) | payer MEDICARE, BC ==
[2023-04-13 12:42] LABS: Glucose,Whole Blood 115 mg/dL (70-110)
[2023-04-13] MEDS ORDERED: SODIUM CHLORIDE 0.9% 1,000 ML IV STA (12:54)
[2023-04-13 13:06] LABS: Glucose,Whole Blood 58 mg/dL (70-110)
--- NOTE | 2023-04-13 13:28 | ED ---
General Adult HPI - General Chief complaint: Recheck/Abnormal Lab/Rx Stated complaint: Diabetes Time Seen by Provider: 04/13/23 12:36 Source: patient, RN notes reviewed, old records reviewed Mode of arrival: EMS Limitations: physical limitation - History of Present Illness Initial comments: Patient is a 72-year-old male with past medical history remarkable for diabetes presents in the department complaining of multiple episodes of fainting at home secondary to low blood sugar. Has occurred 5 times over the last few days. Takes 24 units Lantus in the morning and 4 units NovoLog 3 times a day. Patient's sister is his guardian. States he has had episodes where he passes out. Resolved when replenishment here. Had another episode prior to arrival with a blood sugar of 40. Patient is improved now. Did receive 1 amp of dextrose prior to arrival. Currently is alert and oriented 4 with no acute neurological deficits. Complaining of right hip pain from a fall last week. Denies any headaches, neck pain. Denies any chest pain or shortness of breath. Denies any diarrhea, nausea, vomiting. Denies any fevers. His no other acute complaints at this time. Presents for further evaluation at this time. - Related Data Home Medications Medication Instructions Recorded Confirmed Aspirin [Ashe Aspirin EC] 81 mg PO DAILY 03/13/19 04/13/23 Ferrous Sulfate [Iron (65 MG 325 mg PO DAILY 03/13/19 04/13/23 Elemental)] Gabapentin [Neurontin] 300 mg PO TID 03/13/19 04/13/23 Isosorbide Mononitrate ER [Imdur] 30 mg PO DAILY 03/13/19 04/13/23 Levothyroxine Sodium [Synthroid] 137 mcg PO DAILY 03/13/19 04/13/23 Metoprolol Tartrate [Lopressor] 25 mg PO DAILY 03/13/19 04/13/23 Pantoprazole Sodium [Protonix] 40 mg PO DAILY 03/13/19 04/13/23 Insulin Aspart [NovoLOG Flexpen] See Protocol SQ AC-TID 03/30/21 04/13/23 Insulin Glargine,Hum.rec.anlog 20 unit SQ DAILY 03/30/21 04/13/23 [Lantus Solostar] Ammonium Lactate Cream [Lac-Hydrin 1 applic TOPICAL BID PRN 04/13/23 04/13/23 12% Cream] Atorvastatin [Lipitor] 80 mg PO DAILY 04/13/23 04/13/23 Empagliflozin [Jardiance] 25 mg PO DAILY 04/13/23 04/13/23 Escitalopram [Lexapro] 10 mg PO DAILY 04/13/23 04/13/23 Glucagon Emergency Kit 1 mg IM ONCE PRN 04/13/23 04/13/23 Solifenacin Succinate [Vesicare] 5 mg PO DAILY 04/13/23 04/13/23 metFORMIN HCL ER [Glucophage XR] 1,000 mg PO W/SUPPER 04/13/23 04/13/23 Allergies Allergy/AdvReac Type Severity Reaction Status Date / Time No Known Allergies Allergy Verified 04/13/23 14:10 Review of Systems ROS Statement: Those systems with pertinent positive or pertinent negative responses have been documented in the HPI. Review of Systems: CONST: Denies fever EYES: Denies blurry vision ENT: Denies nasal congestion C/V: Denies Chest pain RESP: Denies shortness of breath GI: Denies abdominal pain : Denies dysuria SKIN: Denies rash. MSK: Endorses right hip pain NEURO: Denies headache ROS Other: All systems not noted in ROS Statement are negative. Past Medical History Past Medical History: Coronary Artery Disease (CAD), Diabetes Mellitus, Hyperlipidemia, Hypertension, Myocardial Infarction (OK) History of Any Multi-Drug Resistant Organisms: None Reported Past Surgical History: Appendectomy, Coronary Bypass/CABG, Heart Catheterization With Stent Past Psychological History: No Psychological Hx Reported Smoking Status: Never smoker Past Alcohol Use History: Daily Past Drug Use History: Marijuana General Exam - General Exam Comments Initial Comments: General: Appears in no acute distress. HEAD: Normal with no signs of head trauma. EYES: PERRLA, EOMI, conjunctiva normal, no discharge. Pupils are 3 mm equal bilaterally. ENT: Hearing grossly intact, normal oropharynx. Moist mucous membranes. RESPIRATORY: Clear breath sounds bilaterally. No wheezes, rales, or rhonchi. C/V: Regular rate and rhythm. S1 and S2 auscultated, no edema, peripheral pulses 2+ and intact throughout ABD: Abd is soft, nontender, nondistended EXT: Normal range of motion, no obvious deformity. Tenderness to palpation of the right hip. No deformities. SKIN: No rashes or lesions observed on exposed skin. NEURO: Alert and oriented x 4. Cranial nerves II-XII intact. No focal sensory or strength deficits. GCS of 15. Limitations: physical limitation Course Vital Signs 04/13/23 12:37 Temperature 97.6 F Pulse Rate 78 Respiratory 18 Rate Blood Pressure 211/85 O2 Sat by Pulse 96 Oximetry Medical Decision Making - Medical Decision Making Was pt. sent in by a medical professional or institution (, PA, EXCEPTIONAL STUDENT EDUCATION TEACHER, urgent c are, hospital, or prison...) When possible be specific @ -No Did you speak to anyone other than the patient for history (EMS, parent, family, police, friend...)? What history was obtained from this source @ -Patient's sisters at bedside, who is the patient's guardian and provides past medical history the patient including medications. Did you review nursing and triage notes (agree or disagree)? Why? @ -I reviewed and agree with nursing and triage notes Were old charts reviewed (outside hosp., previous admission, EMS record, old EKG, old radiological studies, urgent care reports/EKG's, prison records)? Report findings @ -No old charts were reviewed Differential Diagnosis (chest pain, altered mental status, abdominal pain women, abdominal pain men, vaginal bleeding, weakness, fever, dyspnea, syncope, headache, dizziness, GI bleed, back pain, seizure, CVA, palpatations, mental health, musculoskeletal)? @ -Differential Syncope: Valvular disease, hypertrophic cardiomyopathy, pulmonary embolism, tamponade, tachycardia, bradycardia, OK, hypovolemia, hemorrhage, dissection, anemia, intracranial hemorrhage, seizure, hypoglycemia, carbon monoxide poisoning, this is not meant to be an all-inclusive list. EKG interpreted by me (3pts min.). @ -As above X-rays interpreted by me (1pt min.). @ -Patient's chest x-ray revealed no obvious acute cardio, process. Pelvis x- ray reveals a possible right femoral fracture. Radiology Recommend CT for definitive imaging. CT interpreted by me (1pt min.). @ -CT brain and C-spine negative for any acute intracranial process or cervical spine injury. Patient's CT right hip does reveal a right nondisplaced comminuted greater trochanteric fracture U/S interpreted by me (1pt. min.). @ -None done What testing was considered but not performed or refused? (CT, X-rays, U/S, labs)? Why? @ -None What meds were considered but not given or refused? Why? @ -Patient initially declined pain medications. Did you discuss the management of the patient with other professionals (professionals i.e. , PA, EXCEPTIONAL STUDENT EDUCATION TEACHER, lab, RT, psych nurse, dialysis social worker, management liaison, teacher, motorcycle police officer, pillowcase folder)? Give summary @ -I spoke with orthopedic mid-level provider Vicki as well as Dr. Barnett who accepted the consult will request the patient be made a medical admit as the fracture is nonoperative. I believe this is reasonable. I spoke with Dr. Parks who did accept the admission to his service. Was smoking cessation discussed for >3mins.? @ -No Was critical care preformed (if so, how long)? @ -No Were there social determinants of health that impacted care today? How? (Homelessness, low income, unemployed, alcoholism, drug addiction, transportation, low edu. Level, literacy, decrease access to med. care, [facility], rehab)? @ -No Was there de-escalation of care discussed even if they declined (Discuss DNR or withdrawal of care, Hospice)? DNR status @ -No What co-morbidities impacted this encounter? (DM, HTN, Smoking, COPD, CAD, Cancer, CVA, ARF, Chemo, Hep., AIDS, mental health diagnosis, sleep apnea, morbid obesity)? @ -None Was patient admitted / discharged? Hospital course, mention meds given and route, prescriptions, significant lab abnormalities, going to OR and other pertinent info. @ -Based on the patient's presentation and physical exam, I'm concerned for hypoglycemic episodes causing his syncopal episodes. Has had low blood sugar every time these occur. He is complaining of right hip pain. Unknown is if he lost consciousness. Is not on thinners. Due to his age we will obtain CT imaging of the brain and neck as well as chest x-ray and pelvic x-ray. We will obtain basic labs as well. He will likely be admitted for the recurrent episodes of hypoglycemia. As been compliant with his insulin medication. He was in agreement this plan. No other acute complaints at this time. Patient is hypertensive initially, but it is improving. I do believe it is likely secondary to stress and we will continue to monitor. Patient's labs returned within acceptable limits. Patient became hypoglycemic once here in the department was given an amp of D50 with recovery. Patient's initial imaging negative for any obvious fracture except for possibly the right hip. CT brain and C-spine negative for any obvious acute injury. We did obtain a CT of the right hip at this time which did reveal a minimally displaced comminuted right greater trochanteric fracture. I did the patient. He will be admitted for further monitoring. I spoke with orthopedic mid-level provider Vicki as well as Dr. Barnett who accepted the consult will request the patient be made a medical admit as the fracture is nonoperative. I believe this is reasonable. I spoke with Dr. Parks who did accept the admission to his service. Undiagnosed new problem with uncertain prognosis? @ -No Drug Therapy requiring intensive monitoring for toxicity (Heparin, Nitro, Insulin, Cardizem)? @ -No Were any procedures done? @ -No Diagnosis/symptom? @ -Hypoglycemia, right comminuted greater trochanteric fracture Acute, or Chronic, or Acute on Chronic? @ -Acute Uncomplicated (without systemic symptoms) or Complicated (systemic symptoms)? @ -Complicated Side effects of treatment? @ -No Exacerbation, Progression, or Severe Exacerbation? @ -No Poses a threat to life or bodily function? How? (Chest pain, USA, OK, pneumonia, PE, COPD, DKA, ARF, appy, cholecystitis, CVA, Diverticulitis, Homicidal, Suicidal, threat to staff... and all critical care pts) @ -Yes - Lab Data Result diagrams: 04/13/23 13:00 04/13/23 13:00 Lab Results 04/13/23 04/13/23 04/13/23 Range/Units 12:41 13:00 13:00 WBC 7.8 (3.8-10.6) k/uL RBC 4.22 L (4.30-5.90) m/uL Hgb 12.0 L (13.0-17.5) gm/dL Hct 39.7 (39.0-53.0) % MCV 94.2 (80.0-100.0) fL MCH 28.5 (25.0-35.0) pg MCHC 30.3 L (31.0-37.0) g/dL RDW 15.2 (11.5-15.5) % Plt Count 271 (150-450) k/uL MPV 8.0 Neutrophils % 78 % Lymphocytes % 13 % Monocytes % 5 % Eosinophils % 3 % Basophils % 1 % Neutrophils # 6.1 (1.3-7.7) k/uL Lymphocytes # 1.0 (1.0-4.8) k/uL Monocytes # 0.4 (0-1.0) k/uL Eosinophils # 0.2 (0-0.7) k/uL Basophils # 0.0 (0-0.2) k/uL Hypochromasia Slight PT 9.7 (9.0-12.0) sec INR 0.9 (<1.2) APTT 23.1 (22.0-30.0) sec Sodium (137-145) mmol/L Potassium (3.5-5.1) mmol/L Chloride (98-107) mmol/L Carbon Dioxide (22-30) mmol/L Anion Gap mmol/L BUN (9-20) mg/dL Creatinine (0.66-1.25) mg/dL Est GFR (CKD-EPI)AfAm (>60 ml/min/1.73 sqM) Est GFR (CKD-EPI)NonAf (>60 ml/min/1.73 sqM) Glucose (74-99) mg/dL POC Glucose (mg/dL) 115 H (70-110) mg/dL POC Glu Certified Professional Ergonomist ID Delroy Topete Calcium (8.4-10.2) mg/dL Magnesium (1.6-2.3) mg/dL Total Bilirubin (0.2-1.3) mg/dL AST (17-59) U/L ALT (4-49) U/L Alkaline Phosphatase (38-126) U/L Total Protein (6.3-8.2) g/dL Albumin (3.5-5.0) g/dL Urine Color Urine Appearance (Clear) Urine pH (5.0-8.0) Ur Specific [place] (1.001-1.035) Urine Protein (Negative) Urine Glucose (UA) (Negative) Urine Ketones (Negative) Urine Blood (Negative) Urine Nitrite (Negative) Urine Bilirubin (Negative) Urine Urobilinogen (<2.0) mg/dL Ur Leukocyte Esterase (Negative) Serum Alcohol mg/dL 06/04/13/23 04/13/23 Range/Units 13:00 13:00 13:03 WBC (3.8-10.6) k/uL RBC (4.30-5.90) m/uL Hgb (13.0-17.5) gm/dL Hct (39.0-53.0) % MCV (80.0-100.0) fL MCH (25.0-35.0) pg MCHC (31.0-37.0) g/dL RDW (11.5-15.5) % Plt Count (150-450) k/uL MPV Neutrophils % % Lymphocytes % % Monocytes % % Eosinophils % % Basophils % % Neutrophils # (1.3-7.7) k/uL Lymphocytes # (1.0-4.8) k/uL Monocytes # (0-1.0) k/uL Eosinophils # (0-0.7) k/uL Basophils # (0-0.2) k/uL Hypochromasia PT (9.0-12.0) sec INR (<1.2) APTT (22.0-30.0) sec Sodium 141 (137-145) mmol/L Potassium 4.4 (3.5-5.1) mmol/L Chloride 110 H (98-107) mmol/L Carbon Dioxide 26 (22-30) mmol/L Anion Gap 5 mmol/L BUN 28 H (9-20) mg/dL Creatinine 0.94 (0.66-1.25) mg/dL Est GFR (CKD-EPI)AfAm >90 (>60 ml/min/1.73 sqM) Est GFR (CKD-EPI)NonAf 81 (>60 ml/min/1.73 sqM) Glucose 48 L* (74-99) mg/dL POC Glucose (mg/dL) 58 L (70-110) mg/dL POC Glu Certified Professional Ergonomist ID Topete, Delroy Calcium 8.3 L (8.4-10.2) mg/dL Magnesium 2.0 (1.6-2.3) mg/dL Total Bilirubin 0.2 (0.2-1.3) mg/dL AST 39 (17-59) U/L ALT 32 (4-49) U/L Alkaline Phosphatase 108 (38-126) U/L Total Protein 6.7 (6.3-8.2) g/dL Albumin 3.4 L (3.5-5.0) g/dL Urine Color Light Yellow Urine Appearance Clear (Clear) Urine pH 5.5 (5.0-8.0) Ur Specific [place] 1.006 (1.001-1.035) Urine Protein Negative (Negative) Urine Glucose (UA) 3+ H (Negative) Urine Ketones Negative (Negative) Urine Blood Negative (Negative) Urine Nitrite Negative (Negative) Urine Bilirubin Negative (Negative) Urine Urobilinogen <2.0 (<2.0) mg/dL Ur Leukocyte Esterase Negative (Negative) Serum Alcohol mg/dL 04/13/23 04/13/23 04/13/23 Range/Units 14:02 14:29 15:32 WBC (3.8-10.6) k/uL RBC (4.30-5.90) m/uL Hgb (13.0-17.5) gm/dL Hct (39.0-53.0) % MCV (80.0-100.0) fL MCH (25.0-35.0) pg MCHC (31.0-37.0) g/dL RDW (11.5-15.5) % Plt Count (150-450) k/uL MPV Neutrophils % % Lymphocytes % % Monocytes % % Eosinophils % % Basophils % % Neutrophils # (1.3-7.7) k/uL Lymphocytes # (1.0-4.8) k/uL Monocytes # (0-1.0) k/uL Eosinophils # (0-0.7) k/uL Basophils # (0-0.2) k/uL Hypochromasia PT (9.0-12.0) sec INR (<1.2) APTT (22.0-30.0) sec Sodium (137-145) mmol/L Potassium (3.5-5.1) mmol/L Chloride (98-107) mmol/L Carbon Dioxide (22-30) mmol/L Anion Gap mmol/L BUN (9-20) mg/dL Creatinine (0.66-1.25) mg/dL Est GFR (CKD-EPI)AfAm (>60 ml/min/1.73 sqM) Est GFR (CKD-EPI)NonAf (>60 ml/min/1.73 sqM) Glucose (74-99) mg/dL POC Glucose (mg/dL) 106 141 H (70-110) mg/dL POC Glu Certified Professional Ergonomist ID Delroy Topete Kathryn Calcium (8.4-10.2) mg/dL Magnesium (1.6-2.3) mg/dL Total Bilirubin (0.2-1.3) mg/dL AST (17-59) U/L ALT (4-49) U/L Alkaline Phosphatase (38-126) U/L Total Protein (6.3-8.2) g/dL Albumin (3.5-5.0) g/dL Urine Color Urine Appearance (Clear) Urine pH (5.0-8.0) Ur Specific [place] (1.001-1.035) Urine Protein (Negative) Urine Glucose (UA) (Negative) Urine Ketones (Negative) Urine Blood (Negative) Urine Nitrite (Negative) Urine Bilirubin (Negative) Urine Urobilinogen (<2.0) mg/dL Ur Leukocyte Esterase (Negative) Serum Alcohol <10 mg/dL - EKG Data -: EKG Interpreted by Me EKG Comments: 12-lead Electrocardiogram Interpretation Note EKG was reviewed and interpreted by myself. 12-lead ECG performed at 1609 is interpreted by me as revealing normal sinus rhythm at a rate of 68 beats per minute. [place] is normal. NE interval is 208 ms, QRS duration is 89 ms, QTc is 436 ms.. There were no ST or T wave abnormalities to suggest myocardial ischemia or injury. R wave progression across the precordium was satisfactory. By my interpretation this EKG is non-diagnostic for acute ischemia. Disposition Clinical Impression: Fall, Hypoglycemia, Fracture of greater trochanter of right femur Disposition: ADMITTED IP TO THIS HOSP Condition: Stable Referrals: Mika Bell DO [Primary Care Provider] - 1-2 days Time of Disposition: 15:35
[2023-04-13 13:29] LABS: Basophils % (A) 1 %; Eosinophils # (A) 0.2 k/uL (0-0.7); Eosinophils % (A) 3 %; HCT 39.7 % (39.0-53.0); Hypochromasia Slight; Lymphocytes % (A) 13 %; MCH 28.5 pg (25.0-35.0); MCHC 30.3 g/dL (31.0-37.0); MCV 94.2 fL (80.0-100.0); Monocytes # (A) 0.4 k/uL (0-1.0); Monocytes % (A) 5 %; Neutrophils # (A) 6.1 k/uL (1.3-7.7); Neutrophils % (A) 78 %; Platelet Count 271 k/uL (150-450); RBC 4.22 m/uL (4.30-5.90); RDW 15.2 % (11.5-15.5); WBC 7.8 k/uL (3.8-10.6)
[2023-04-13 13:34] LABS: Appearance,Urine Clear (Clear); Bilirubin,Urine Negative (Negative); Blood,Urine Negative (Negative); Color,Urine Light Yellow; Glucose,Urine (UA) 3+ (Negative); Ketones,Urine Negative (Negative); Leukocyte Esterase,Urine Negative (Negative); Nitrite,Urine Negative (Negative); PH, Urine 5.5 (5.0-8.0); Protein,Urine Negative (Negative); Specific Gravity,Urine 1.006 (1.001-1.035); Urobilinogen,Urine <2.0 mg/dL (<2.0)
[2023-04-13 13:38] LABS: INR 0.9 (<1.2); Partial Thromboplastin Time 23.1 sec (22.0-30.0); Prothrombin Time 9.7 sec (9.0-12.0)
[2023-04-13 13:45] LABS: ALT 32 U/L (4-49); AST 39 U/L (17-59); African American GFR (CKD) >90 (>60 ml/min/1.73 sqM); Albumin 3.4 g/dL (3.5-5.0); Alkaline Phosphatase 108 U/L (38-126); Anion Gap 5 mmol/L; Blood Urea Nitrogen 28 mg/dL (9-20); Calcium 8.3 mg/dL (8.4-10.2); Carbon Dioxide 26 mmol/L (22-30); Chloride 110 mmol/L (98-107); Non-African American GFR(CKD) 81 (>60 ml/min/1.73 sqM); Potassium 4.4 mmol/L (3.5-5.1); Sodium 141 mmol/L (137-145); Total Bilirubin 0.2 mg/dL (0.2-1.3); Total Protein 6.7 g/dL (6.3-8.2)
[2023-04-13 13:52] LABS: Glucose 48 mg/dL (74-99)
[2023-04-13] MEDS ORDERED: DEXTROSE 50% SYRINGE 50 ML IVP STA (13:55)
[2023-04-13 14:03] LABS: Glucose,Whole Blood 106 mg/dL (70-110)
--- NOTE | 2023-04-13 14:14 | XR ---
EXAMINATION TYPE: XR chest 2V DATE OF EXAM: 04/13/2023 COMPARISON: NONE TECHNIQUE: PA and lateral views submitted. HISTORY: Syncope FINDINGS: The lungs are clear and there is no pneumothorax, pleural effusion, or focal pneumonia. Heart size normal and no overt failure. Osseous structures demonstrate hypertrophic and degenerative changes of the spine. Poststernotomy changes noted. Coarsened interstitium. Arthropathy of the shoulders with di ffuse osteopenia. Questionable 5 mm right upper lobe pulmonary nodule. IMPRESSION: 1. No acute process. 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 2. There is a 5 mm right upper lobe pulmonary nodule recommend follow-up CT chest.
--- NOTE | 2023-04-13 14:16 | XR ---
EXAMINATION TYPE: XR Hip RT and AP Pelvis DATE OF EXAM: 04/13/2023 COMPARISON: NONE HISTORY: Pain TECHNIQUE: A single AP view of the pelvis is obtained. Two views of the right hip are obtained. FINDINGS: There is lucency involving the greater trochanter. The sacroiliac joints appear symmetric and unremarkable. Mild concentric narrowing in joint. Vascular calcification seen in their surgical c lips along the left lower extremity soft tissues. Spina bifida occulta of the sacrum. Two views of right hip show no acute fracture or dislocation. No focal lytic or sclerotic lesion see n in the proximal right femur. The overlying soft tissue is unremarkable. IMPRESSION: 1. Findings are highly suspicious for a mildly displaced right greater trochanter femoral fracture. R ecommend CT of the hip for confirmation.
--- NOTE | 2023-04-13 14:29 | CT ---
EXAMINATION TYPE: CT brain cspine wo con CT DLP: 1496.9 mGycm, Automated exposure control for dose reduction was used. DATE OF EXAM: 04/13/2023 2:21 PM COMPARISON: CT brain C-spine 06/03/2020. CLINICAL INDICATION:Male, 72 years old with history of syncope, fall; Fall x2. TECHNIQUE: Brain: Multiple axial CT images of the brain were obtained without IV contrast. Cspine: Axial CT images from the skull base to the inferior aspect of T2 we obtained without intraven ous contrast. Coronal and sagittal reformatted images were also reviewed. FINDINGS: Brain: Extra-axial spaces: No abnormal extra-axial fluid collections. Ventricular system: Within normal limits Cerebral parenchyma: Cerebral atrophy. No acute intraparenchymal hemorrhage or mass effect. The sorenson -white junction is well differentiated. Scattered hypoattenuating areas are seen within the white mat ter. Cerebellum: Unremarkable. Mass effect: No evidence of midline shift. Intracranial vasculature: unremarkable Soft tissues: Normal. Calvarium/osseous structures: No depressed skull fracture. Paranasal sinuses and mastoid air cells: Mild mucosal thickening of the right maxillary sinus with ai r-fluid level. The mastoid air cells are clear. Visualized orbits: Bilateral aphakia Cervical spine: Fracture: None. Osseous structures: Multilevel degenerative disc disease changes with endplate spurring and disc oste ophyte complex's. Partial visualization of median sternotomy wire. Vertebral alignment: Within normal limits. Spinal canal/Neural Foramina: Disc osteophyte complexes at C3-C4, C4-C5, C5-C6 with at least mild spi nal canal stenosis. Facet joint uncovertebral joint arthropathy scattered throughout the cervical spi ne with varying degrees of neural foraminal stenosis. Neck soft tissues: Prevertebral soft tissues are within normal limits. Other: The airway is patent. Biapical pleural-parenchymal scarring.. Marked bilateral carotid bulb ca lcifications. IMPRESSION: 1. No acute intracranial process. 2. Nonspecific white matter changes, likely secondary to chronic small vessel ischemic disease. 3. No evidence of cervical spine fracture. 4. Moderate multilevel degenerative disc disease.
[2023-04-13] MEDS ORDERED: MORPHINE SULFATE 2 MG/ML SYRINGE IVP STA (14:57)
--- NOTE | 2023-04-13 15:31 | CT ---
EXAMINATION TYPE: CT hip RT wo con CT DLP: 524.3 mGycm, Automated exposure control for dose reduction was used. DATE OF EXAM: 04/13/2023 3:17 PM COMPARISON: CT chest abdomen pelvis 07/22/2022, right hip/pelvic's radiograph 04/13/2023. CLINICAL INDICATION:Male, 72 years old with history of possible right hip fracture; PHH, possible rig ht hip fracture TECHNIQUE: Axial images were obtained of the right hip without the use of IV contrast. Additional co sabina and sagittal reformatted images and soft tissue and bone window were obtained for review. 3-D r econstruction was created on a separate workstation. FINDINGS: Acute minimally displaced comminuted fracture of the greater trochanter (series 202, image 48 through 58). No subluxation or dislocation. There is associated mild soft tissue edema. No sizable joint effusion. Degenerative changes of the visualized lower lumbar spine. Multiple calcifications i dentified within the medial thigh soft tissues. Vascular sclerosis. Distended urinary bladder. IMPRESSION: 1. Acute minimally displaced comminuted fracture of the right greater trochanter. 2. Distended urinary bladder. Consider Romeo catheter placement if patient cannot void.
[2023-04-13 15:34] LABS: Glucose,Whole Blood 141 mg/dL (70-110)
[2023-04-13] MEDS ORDERED: NALOXONE 0.4 MG/ML 1 ML VIAL IV PRN (16:18)
[2023-04-13] MEDS ORDERED: MORPHINE SULFATE 4 MG/ML SYRINGE IV PRN (16:18)
[2023-04-13 17:09] LABS: Glucose,Whole Blood 148 mg/dL (70-110)
[2023-04-13 18:37] LABS: Glucose,Whole Blood 213 mg/dL (70-110)
[2023-04-13] MEDS ORDERED: AMMONIUM LACTATE 12% CREAM 140 GM TUBE TOPICAL PRN (19:15)
[2023-04-13] MEDS ORDERED: DEXTROSE 50% SYRINGE 50 ML IVP PRN (19:17)
[2023-04-13] MEDS ORDERED: cloNIDine HCL 0.1 MG TAB PO STA (19:22)
[2023-04-13 20:47] LABS: Glucose,Whole Blood 235 mg/dL (70-110)
[2023-04-13] MEDS: GABAPENTIN 300 MG CAP PO SCH (20:48)
[2023-04-13] MEDS: INSULIN ASPART (NovoLOG) 100 UNIT/ML VIAL SQ SCH (20:48)
[2023-04-14] MEDS: DEXTROSE 50% SYRINGE 50 ML IVP PRN (01:48)
[2023-04-14 02:05] LABS: Glucose,Whole Blood 194 mg/dL (70-110)
[2023-04-14] MEDS: INSULIN ASPART (NovoLOG) 100 UNIT/ML VIAL SQ SCH ×5 (04:42→22:00)
[2023-04-14 05:18] LABS: African American GFR (CKD) >90 (>60 ml/min/1.73 sqM); Anion Gap 6 mmol/L; Blood Urea Nitrogen 24 mg/dL (9-20); Calcium 8.6 mg/dL (8.4-10.2); Carbon Dioxide 28 mmol/L (22-30); Chloride 108 mmol/L (98-107); Glucose 96 mg/dL (74-99); Non-African American GFR(CKD) 82 (>60 ml/min/1.73 sqM); Potassium 4.4 mmol/L (3.5-5.1); Sodium 142 mmol/L (137-145)
[2023-04-14 05:19] LABS: Basophils % (A) 1 %; Eosinophils # (A) 0.4 k/uL (0-0.7); Eosinophils % (A) 5 %; HCT 41.2 % (39.0-53.0); HGB 12.3 gm/dL (13.0-17.5); Hypochromasia Moderate; Lymphocytes # (A) 1.3 k/uL (1.0-4.8); Lymphocytes % (A) 18 %; MCH 28.4 pg (25.0-35.0); MCHC 29.9 g/dL (31.0-37.0); Mean Platelet Volume 7.8; Monocytes # (A) 0.5 k/uL (0-1.0); Monocytes % (A) 6 %; Neutrophils # (A) 4.9 k/uL (1.3-7.7); Neutrophils % (A) 69 %; Platelet Count 270 k/uL (150-450); RBC 4.34 m/uL (4.30-5.90); RDW 15.1 % (11.5-15.5); WBC 7.1 k/uL (3.8-10.6)
[2023-04-14 07:32] LABS: Glucose,Whole Blood 93 mg/dL (70-110)
[2023-04-14 08:42] LABS: Glucose,Whole Blood 45 mg/dL (70-110)
[2023-04-14] MEDS ORDERED: METOPROLOL TARTRATE 25 MG TAB PO SCH (09:00)
[2023-04-14] MEDS: ASPIRIN 81 MG PO SCH (09:27)
[2023-04-14] MEDS: PANTOPRAZOLE 40 MG TABLET PO SCH (09:27)
[2023-04-14] MEDS: GABAPENTIN 300 MG CAP PO SCH ×2 (09:27→22:00)
[2023-04-14] MEDS: LEVOTHYROXINE 137 MCG TAB PO SCH (09:27)
[2023-04-14] MEDS: FERROUS SULFATE 325 MG TAB PO SCH (09:27)
[2023-04-14] MEDS: ESCITALOPRAM 10 MG TAB PO SCH (09:27)
[2023-04-14] MEDS: ISOSORBIDE MONONITRATE ER 30 MG TAB.ER.24H PO SCH (09:27)
[2023-04-14] MEDS: METOPROLOL TARTRATE 25 MG TAB PO SCH ×3 (09:27→22:00)
[2023-04-14] MEDS: ATORVASTATIN 80 MG TAB PO SCH (09:27)
[2023-04-14] MEDS: LISINOPRIL-HCTZ 10-12.5 MG 1 EACH TAB PO SCH ×3 (10:39→22:00)
[2023-04-14] MEDS: TROSPIUM CHLORIDE 20 MG TABLET PO SCH (10:39)
[2023-04-14] MEDS: DAPAGLIFLOZIN PROPANEDIOL 10 MG TABLET PO SCH (10:39)
[2023-04-14 11:19] LABS: Glucose,Whole Blood 198 mg/dL (70-110)
[2023-04-14] MEDS: ENOXAPARIN 40 MG/0.4 ML SYRINGE SQ SCH (12:47)
[2023-04-14] MEDS: metFORMIN 500 MG TAB PO SCH ×2 (12:48→16:58)
--- NOTE | 2023-04-14 14:50 | P.HPIM ---
History of Present Illness H&P Date: 04/14/23 Chief Complaint: Fall This is a pleasant 72-year-old patient follows with Dr. Bell. Patient lives with his sister who is also the guardian. Patient been having hypoglycemic episodes at home. Gets tremors are noted.. About 5 times in the last few days. Patient took a fall again yesterday. Right greater trochanter minimally displaced fracture occurred. Patient's appetite is good. Last night Lantus was held. Blood glucose in the ER yesterday was 48. Patient denies any chest pain or palpitation. And a baseline patient has stuttering when he talks. Denies any fever and chills. Review of systems: GEN.: Tired EYES: None HEENT: None NECK: None RESPIRATORY: None CARDIOVASCULAR: None GASTROINTESTINAL: None GENITOURINARY: None MUSCULOSKELETAL: Joint pain LYMPHATICS: None HEMATOLOGICAL: None PSYCHIATRY: None NEUROLOGICAL: Does use a cane Past medical history to include: CAD with stent, bypass, diabetes, GERD, hypertension, hyperlipidemia, peripheral neuropathy, hypothyroid, PAD Social history: Lives with his sister GEN. Was also the guardian. Smoked about 2 packs a day for 32 years stopped in 2001. Did work at [employer]. Physical examination: VITAL SIGNS: [98.1, 62, 18, 173/66, 96% room air upon presentation GENERAL: BMI 30.1, reclining bit of a comfortable. EYES: Pupils equal. Conjunctiva normal. HEENT: External appearance of nose and ears normal, oral cavity grossly normal. NECK: JVD not raised; masses not palpable. HEART: First and second heart sounds are normal; no edema. LUNGS: Respiratory rate normal; clear to auscultation. ABDOMEN: Soft, nontender, liver spleen not palpable, no masses palpable. PSYCH: Alert and oriented x3; mood and affect normal. MUSCULOSKELETAL:No Clubbing/cyanosis;muscles-grossly intact OA NEUROLOGICAL: Stuttering. Otherwise grossly intact. LYMPHATICS: No lymph nodes palpable in the axilla and neck INVESTIGATIONS, reviewed in the clinical context: White count 7.8 hemoglobin 12 platelets 271 sodium 141 potassium 4.4 BUN 28 creatinine 0.94 blood glucose 48 UA glucose 3+ positive EKG tracing personally reviewed by me-normal sinus rhythm. Nonspecific ST-T wave changes. Chest x-ray film personally reviewed by me-unremarkable Head CT: Acute minimally displaced comminuted fracture of the right greater trochanter. Head cervical spine CT: Multilevel DJD.. No fracture. Assessment and plan: -Acute minimally displaced comminuted fracture of the right greater trochanter secondary to fall. Orthopedics consulted -Recurrent falls due to recurrent hypoglycemia. -Diabetes mellitus type 2, chronically on insulin. Uncontrolled with hypoglycemia. . Stop Lantus. Metformin, GERD and squamous. Sliding scale. -Coronary artery disease and history of stent, bypass -GERD Chronic -Hyperlipidemia Lipitor 80 -Essential hypertension, accelerated Lopressor 25 mg twice a day, started Zestoretic 08/10.5 one tablet twice a day. Started Yesterday -Hypothyroid Synthroid. Recheck TSH/free T4 -Peripheral neuropathy Cutback Neurontin 300 mg bid -Chronic bladder dysfunction Vesicare -Depression and anxiety Lexapro -Full code Stop Lantus. Lopressor Zestoretic. Follow Accu-Cheks. Await orthopedic consult input. Discussed with patient. Subcu Lovenox. PTOT. Past Medical History Past Medical History: Coronary Artery Disease (CAD), Diabetes Mellitus, GERD/Reflux, Hyperlipidemia, Hypertension, Myocardial Infarction ([place]), Thyroid Disorder Additional Past Medical History / Comment(s): neuropathy Last Myocardial Infarction Date:: unknown History of Any Multi-Drug Resistant Organisms: None Reported Past Surgical History: Appendectomy, Coronary Bypass/CABG, Heart Catheterization With Stent Past Anesthesia/Blood Transfusion Reactions: No Reported Reaction Date of Last Stent Placement:: unknown Past Psychological History: Depression Smoking Status: Former smoker Past Alcohol Use History: Daily Past Drug Use History: Marijuana - Past Family History Father Family Medical History: Congestive Heart Failure (CHF) Mother Additional Family Medical History / Comment(s): of old age. Medications and Allergies Home Medications Medication Instructions Recorded Confirmed Type Aspirin [Mystic Aspirin EC] 81 mg PO DAILY 03/13/19 04/13/23 History Ferrous Sulfate [Iron (65 MG 325 mg PO DAILY 03/13/19 04/13/23 History Elemental)] Gabapentin [Neurontin] 300 mg PO TID 03/13/19 04/13/23 History Isosorbide Mononitrate ER [Imdur] 30 mg PO DAILY 03/13/19 04/13/23 History Levothyroxine Sodium [Synthroid] 137 mcg PO DAILY 03/13/19 04/13/23 History Metoprolol Tartrate [Lopressor] 25 mg PO DAILY 03/13/19 04/13/23 History Pantoprazole Sodium [Protonix] 40 mg PO DAILY 03/13/19 04/13/23 History Insulin Aspart [NovoLOG Flexpen] See Protocol SQ AC-TID 03/30/21 04/13/23 History Insulin Glargine,Hum.rec.anlog 20 unit SQ DAILY 03/30/21 04/13/23 History [Lantus Solostar] Ammonium Lactate Cream [Lac-Hydrin 1 applic TOPICAL BID PRN 04/13/23 04/13/23 History 12% Cream] Atorvastatin [Lipitor] 80 mg PO DAILY 04/13/23 04/13/23 History Empagliflozin [Jardiance] 25 mg PO DAILY 04/13/23 04/13/23 History Escitalopram [Lexapro] 10 mg PO DAILY 04/13/23 04/13/23 History Glucagon Emergency Kit 1 mg IM ONCE PRN 04/13/23 04/13/23 History Solifenacin Succinate [Vesicare] 5 mg PO DAILY 04/13/23 04/13/23 History metFORMIN HCL ER [Glucophage XR] 1,000 mg PO W/SUPPER 04/13/23 04/13/23 History Allergies Allergy/AdvReac Type Severity Reaction Status Date / Time No Known Allergies Allergy Verified 04/13/23 14:10 Physical Exam Vitals: Vital Signs Temp Pulse Pulse Resp BP BP BP 04/14/23 09:21 04/14/23 07:18 98.1 F 62 18 211/65 211/65 04/14/23 01:39 98.4 F 61 20 155/66 04/13/23 20:00 75 20 04/13/23 19:04 98.7 F 75 20 197/72 04/13/23 18:41 98.4 F 71 19 193/73 04/13/23 18:00 72 18 173/66 04/13/23 16:23 98.4 F 77 18 193/80 04/13/23 12:37 97.6 F 78 18 211/85 Pulse Ox 04/14/23 09:21 99 04/14/23 07:18 98 04/14/23 01:39 96 04/13/23 20:00 04/13/23 19:04 97 04/13/23 18:41 97 04/13/23 18:00 97 04/13/23 16:23 98 04/13/23 12:37 96 Intake and Output 04/13/23 04/14/23 04/14/23 22:59 06:59 14:59 Output Total 400 Balance -400 Output: Urine 400 Other: Voiding Method Urinal # Voids 1 3 # Bowel Movements 1 Weight 95.254 kg Results CBC & Chem 7: 04/14/23 04:34 04/14/23 04:34 Labs: Abnormal Lab Results - Last 24 Hours (Table) 04/13/23 04/13/23 04/13/23 Range/Units 12:41 13:00 13:00 RBC 4.22 L (4.30-5.90) m/uL Hgb 12.0 L (13.0-17.5) gm/dL MCHC 30.3 L (31.0-37.0) g/dL Chloride 110 H (98-107) mmol/L BUN 28 H (9-20) mg/dL Glucose 48 L* (74-99) mg/dL POC Glucose (mg/dL) 115 H (70-110) mg/dL Hemoglobin A1c (<=6.0) % Calcium 8.3 L (8.4-10.2) mg/dL Albumin 3.4 L (3.5-5.0) g/dL Urine Glucose (UA) (Negative) 04/13/23 04/13/23 04/13/23 Range/Units 13:00 13:03 15:32 RBC (4.30-5.90) m/uL Hgb (13.0-17.5) gm/dL MCHC (31.0-37.0) g/dL Chloride (98-107) mmol/L BUN (9-20) mg/dL Glucose (74-99) mg/dL POC Glucose (mg/dL) 58 L 141 H (70-110) mg/dL Hemoglobin A1c (<=6.0) % Calcium (8.4-10.2) mg/dL Albumin (3.5-5.0) g/dL Urine Glucose (UA) 3+ H (Negative) 04/13/23 04/13/23 04/13/23 Range/Units 17:07 18:34 20:44 RBC (4.30-5.90) m/uL Hgb (13.0-17.5) gm/dL MCHC (31.0-37.0) g/dL Chloride (98-107) mmol/L BUN (9-20) mg/dL Glucose (74-99) mg/dL POC Glucose (mg/dL) 148 H 213 H 235 H (70-110) mg/dL Hemoglobin A1c (<=6.0) % Calcium (8.4-10.2) mg/dL Albumin (3.5-5.0) g/dL Urine Glucose (UA) (Negative) 04/14/23 04/14/23 04/14/23 Range/Units 01:41 02:03 04:34 RBC (4.30-5.90) m/uL Hgb (13.0-17.5) gm/dL MCHC (31.0-37.0) g/dL Chloride (98-107) mmol/L BUN (9-20) mg/dL Glucose (74-99) mg/dL POC Glucose (mg/dL) 45 L 194 H (70-110) mg/dL Hemoglobin A1c 7.7 H (<=6.0) % Calcium (8.4-10.2) mg/dL Albumin (3.5-5.0) g/dL Urine Glucose (UA) (Negative) 04/14/23 04/14/23 Range/Units 04:34 04:34 RBC (4.30-5.90) m/uL Hgb 12.3 L (13.0-17.5) gm/dL MCHC 29.9 L (31.0-37.0) g/dL Chloride 108 H (98-107) mmol/L BUN 24 H (9-20) mg/dL Glucose (74-99) mg/dL POC Glucose (mg/dL) (70-110) mg/dL Hemoglobin A1c (<=6.0) % Calcium (8.4-10.2) mg/dL Albumin (3.5-5.0) g/dL Urine Glucose (UA) (Negative) Thrombosis Risk Factor Assmnt - Choose All That Apply Any of the Below Risk Factors Present?: Yes Each Factor Represents 1 point: Obesity (BMI >25) Other Risk Factors: Yes Each Risk Factor Represents 2 Points: Age 61-74 years Other congenital or acquired thrombophilia - If yes, enter type in comment: Yes Each Risk Factor Represents 5 Points: Hip, pelvis, or leg fracture (< 1 month) Thrombosis Risk Factor Assessment Total Risk Factor Score: 8 Thrombosis Risk Factor Assessment Level: High Risk
[2023-04-14 16:32] LABS: Glucose,Whole Blood 195 mg/dL (70-110)
[2023-04-14 21:09] LABS: Glucose,Whole Blood 179 mg/dL (70-110)
--- NOTE | 2023-04-14 21:20 | P.CNOR ---
History of Present Illness - [facility] Consult date: 04/14/23 History of present illness: The patient is a very pleasant 72-year-old male admitted to internal medicine with hypoglycemia and a minimally displaced isolated greater trochanter fracture. The patient has a history of mild dementia and diabetes. The patient is a somewhat poor historian but based on his history and the records history in the chart he has had several falls over the last several days resulting from hypoglycemia. He ultimately came to the emergency department where x-rays showed an isolated and minimally displaced greater trochanter fracture. The patient was admitted to internal medicine due to his hypoglycemia causing his falls. At the time of my evaluation the patient is complaining of mild discomfort in the lateral aspect of the right hip only with motion. He states that he has fallen several times over the several days, but has been able to walk. He has no other complaints today. Past Medical History Past Medical History: Coronary Artery Disease (CAD), Diabetes Mellitus, GERD/Reflux, Hyperlipidemia, Hypertension, Myocardial Infarction ([place]), Thyroid Disorder Additional Past Medical History / Comment(s): neuropathy Last Myocardial Infarction Date:: unknown History of Any Multi-Drug Resistant Organisms: None Reported Past Surgical History: Appendectomy, Coronary Bypass/CABG, Heart Catheterization With Stent Additional Past Surgical History / Comment(s): Sister relays, "He had peripheral artery surgery too." Past Anesthesia/Blood Transfusion Reactions: No Reported Reaction Date of Last Stent Placement:: unknown Past Psychological History: Depression Smoking Status: Former smoker Past Alcohol Use History: Daily Past Drug Use History: Marijuana - Past Family History Father Family Medical History: Congestive Heart Failure (CHF) Mother Additional Family Medical History / Comment(s): of old age. Medications and Allergies Home Medications Medication Instructions Recorded Confirmed Type Aspirin [Jerome Aspirin EC] 81 mg PO DAILY 03/13/19 04/13/23 History Ferrous Sulfate [Iron (65 MG 325 mg PO DAILY 03/13/19 04/13/23 History Elemental)] Gabapentin [Neurontin] 300 mg PO TID 03/13/19 04/13/23 History Isosorbide Mononitrate ER [Imdur] 30 mg PO DAILY 03/13/19 04/13/23 History Levothyroxine Sodium [Synthroid] 137 mcg PO DAILY 03/13/19 04/13/23 History Metoprolol Tartrate [Lopressor] 25 mg PO DAILY 03/13/19 04/13/23 History Pantoprazole Sodium [Protonix] 40 mg PO DAILY 03/13/19 04/13/23 History Insulin Aspart [NovoLOG Flexpen] See Protocol SQ AC-TID 03/30/21 04/13/23 History Insulin Glargine,Hum.rec.anlog 20 unit SQ DAILY 03/30/21 04/13/23 History [Lantus Solostar] Ammonium Lactate Cream [Lac-Hydrin 1 applic TOPICAL BID PRN 04/13/23 04/13/23 History 12% Cream] Atorvastatin [Lipitor] 80 mg PO DAILY 04/13/23 04/13/23 History Empagliflozin [Jardiance] 25 mg PO DAILY 04/13/23 04/13/23 History Escitalopram [Lexapro] 10 mg PO DAILY 04/13/23 04/13/23 History Glucagon Emergency Kit 1 mg IM ONCE PRN 04/13/23 04/13/23 History Solifenacin Succinate [Vesicare] 5 mg PO DAILY 04/13/23 04/13/23 History metFORMIN HCL ER [Glucophage XR] 1,000 mg PO W/SUPPER 04/13/23 04/13/23 History Allergies Allergy/AdvReac Type Severity Reaction Status Date / Time No Known Allergies Allergy Verified 04/13/23 14:10 Physical Examination The patient is resting comfortably in his bed. His head is normocephalic and atraumatic. He demonstrates nonlabored breathing with symmetric chest expansion. His abdomen is soft and nonobese. His upper extremities without deformity. His bilateral lower extremities are without deformity. He is able to perform a straight leg raise on the right. He has no pain with passive range of motion of the hip. He has tenderness over the lateral aspect of the hip over the greater trochanter. He has no pain with logroll and heel strike. His thigh and calf are soft. Motor and sensory function are intact. Results X-rays and computed tomography scan show an isolated greater trochanter fracture with no intertrochanteric extension. - Labs Labs: Abnormal Lab Results - Last 24 Hours (Table) 04/14/23 04/14/23 04/14/23 Range/Units 01:41 02:03 04:34 Hgb (13.0-17.5) gm/dL MCHC (31.0-37.0) g/dL Chloride (98-107) mmol/L BUN (9-20) mg/dL POC Glucose (mg/dL) 45 L 194 H (70-110) mg/dL Hemoglobin A1c 7.7 H (<=6.0) % 04/14/23 04/14/23 04/14/23 Range/Units 04:34 04:34 11:18 Hgb 12.3 L (13.0-17.5) gm/dL MCHC 29.9 L (31.0-37.0) g/dL Chloride 108 H (98-107) mmol/L BUN 24 H (9-20) mg/dL POC Glucose (mg/dL) 198 H (70-110) mg/dL Hemoglobin A1c (<=6.0) % 04/14/23 04/14/23 Range/Units 16:31 21:07 Hgb (13.0-17.5) gm/dL MCHC (31.0-37.0) g/dL Chloride (98-107) mmol/L BUN (9-20) mg/dL POC Glucose (mg/dL) 195 H 179 H (70-110) mg/dL Hemoglobin A1c (<=6.0) % H & H 04/13/23 04/14/23 Range/Units 13:00 04:34 Hgb 12.0 L 12.3 L (13.0-17.5) gm/dL Hct 39.7 41.2 (39.0-53.0) % Coagulation 04/13/23 Range/Units 13:00 INR 0.9 (<1.2) Result Diagrams: 04/14/23 04:34 04/14/23 04:34 Assessment and Plan Assessment: Isolated, minimally displaced right greater trochanter fracture without CT evidence of intertrochanteric extension Diabetes Dementia Plan: A long discussion with the patient at bedside this evening, but unfortunately he is a somewhat poor historian and his sister was not available time of my adelita luation. Given the minimal displacement of the greater trochanter fracture on x-ray and computed tomography scan without evidence of intertrochanteric extension my recommendation is nonsurgical treatment. The patient can weight- bear as tolerated on his right leg with a walker. He should avoid active abduction. We briefly discussed the best way to rule out intertrochanteric extension is with an MRI, but unfortunately the patient can have it due to heart stents. Since he has minimal pain and his computed tomography scan shows no extension we will trial nonsurgical treatment. Briefly discussed the potential for completion of intertrochanteric fracture if there is in fact intertrochanteric extension, but I think this is unlikely. The patient is okay to discharge from an orthopedic standpoint when he is medically stable. He will need follow-up in the office in 1 week for repeat x-rays of the hip. Time with Patient: Greater than 30
[2023-04-15] MEDS: LEVOTHYROXINE 137 MCG TAB PO SCH (05:47)
[2023-04-15 06:14] LABS: Glucose,Whole Blood 209 mg/dL (70-110)
[2023-04-15] MEDS: metFORMIN 500 MG TAB PO SCH ×3 (06:37→17:13)
[2023-04-15] MEDS: INSULIN ASPART (NovoLOG) 100 UNIT/ML VIAL SQ SCH ×6 (06:37→20:08)
[2023-04-15] MEDS: DAPAGLIFLOZIN PROPANEDIOL 10 MG TABLET PO SCH (10:18)
[2023-04-15] MEDS: ENOXAPARIN 40 MG/0.4 ML SYRINGE SQ SCH (10:18)
[2023-04-15] MEDS: LISINOPRIL-HCTZ 10-12.5 MG 1 EACH TAB PO SCH ×2 (10:18→20:27)
[2023-04-15] MEDS: GABAPENTIN 300 MG CAP PO SCH ×2 (10:18→20:27)
[2023-04-15] MEDS: TROSPIUM CHLORIDE 20 MG TABLET PO SCH (10:18)
[2023-04-15] MEDS: PANTOPRAZOLE 40 MG TABLET PO SCH (10:19)
[2023-04-15] MEDS: ESCITALOPRAM 10 MG TAB PO SCH (10:19)
[2023-04-15] MEDS: FERROUS SULFATE 325 MG TAB PO SCH (10:19)
[2023-04-15] MEDS: ASPIRIN 81 MG PO SCH (10:19)
[2023-04-15] MEDS: METOPROLOL TARTRATE 25 MG TAB PO SCH ×2 (10:19→20:27)
[2023-04-15] MEDS: ISOSORBIDE MONONITRATE ER 30 MG TAB.ER.24H PO SCH (10:19)
[2023-04-15] MEDS: ATORVASTATIN 80 MG TAB PO SCH (10:21)
--- NOTE | 2023-04-15 10:31 | P.PN ---
Subjective Patient is doing well this morning. He has been up and walking with therapy with minimal pain. Objective - Vital Signs Vital signs: Vital Signs Temp 97.9 F 04/15/23 07:25 Pulse 62 04/15/23 07:25 Resp 16 04/15/23 07:25 BP 130/68 04/15/23 07:25 Pulse Ox 97 04/15/23 07:25 FiO2 Intake & Output 04/14/23 04/15/23 04/15/23 18:59 06:59 18:59 Intake Total 1080 250 Output Total 1300 1075 Balance -220 -825 Intake: Oral 1080 250 Output: Urine 1300 1075 Other: Voiding Method Urinal # Voids 1 - Exam Patient is sitting comfortably in bed. He has minimal pain with passive range of motion of the hip. He is mildly tender over the greater trochanter. - Labs CBC & Chem 7: 04/14/23 04:34 04/14/23 04:34 Labs: Abnormal Lab Results - Last 24 Hours (Table) 04/14/23 04/14/23 04/14/23 Range/Units 11:18 16:31 21:07 POC Glucose (mg/dL) 198 H 195 H 179 H (70-110) mg/dL 04/15/23 Range/Units 06:12 POC Glucose (mg/dL) 209 H (70-110) mg/dL Assessment and Plan Plan: Continue treatment as outlined yesterday. The patient can weight-bear as tolerated with a walker. I would avoid active abduction. He is okay to discharge from an orthopedic standpoint.
[2023-04-15 11:06] LABS: Glucose,Whole Blood 463 mg/dL (70-110)
[2023-04-15] MEDS ORDERED: INSULIN ASPART (NovoLOG) 100 UNIT/ML VIAL SQ ONE (11:30)
[2023-04-15] MEDS ORDERED: INSULIN DETEMIR (LEVEMIR) 100 UNIT/ML SYR SQ SCH ×2 (12:00→12:30)
--- NOTE | 2023-04-15 13:35 | P.PN ---
Progress Note - Text Progress Note Date: 04/15/23 Chief Complaint: Fall This is a pleasant 72-year-old patient follows with Dr. Bell. Patient lives with his sister who is also the guardian. Patient been having hypoglycemic episodes at home. Gets tremors are noted.. About 5 times in the last few days. Patient took a fall again yesterday. Right greater trochanter minimally displaced fracture occurred. Patient's appetite is good. Last night Lantus was held. Blood glucose in the ER yesterday was 48. Patient denies any chest pain or palpitation. And a baseline patient has stuttering when he talks. Denies any fever and chills. April 15: Blood glucose 463 this morning. Patient's sister the bedside. She did tell me that patient is supposed to take Lantus 26 years in the morning. She was mistakenly also given Humalog 26 units along with that. This morning patient's Levemir has been resumed. At 22 units. Extra NovoLog is being given. Watch another 24 hours. Oral intake good. Discussed with the nurse. Time spent today over 50 minutes Active Medications Acetaminophen (Acetaminophen Tab 325 Mg Tab) 650 mg PO Q6HR PRN PRN Reason: Mild Pain or Fever > 100.5 Aspirin (Aspirin 81 Mg) 81 mg PO DAILY [facility] Last Admin: 04/15/23 10:19 Dose: 81 mg Atorvastatin Calcium (Atorvastatin 80 Mg Tab) 80 mg PO DAILY [facility] Last Admin: 04/15/23 10:21 Dose: 80 mg Dapagliflozin (Dapagliflozin Propanediol 10 Mg Tablet) 10 mg PO DAILY [facility] Last Admin: 04/15/23 10:18 Dose: 10 mg Dextrose/Water (Dextrose 50% Syringe 50 Ml) 25 ml IVP PER PROTOCOL PRN; Protocol PRN Reason: Hypoglycemia Dextrose/Water (Dextrose 50% Syringe 50 Ml) 50 ml IVP PER PROTOCOL PRN; Protocol PRN Reason: Hypoglycemia Last Admin: 04/14/23 01:48 Dose: 50 ml Enoxaparin Sodium (Enoxaparin 40 Mg/0.4 Ml Syringe) 40 mg SQ DAILY [facility] Last Admin: 04/15/23 10:18 Dose: 40 mg Escitalopram Oxalate (Escitalopram 10 Mg Tab) 10 mg PO DAILY [facility] Last Admin: 04/15/23 10:19 Dose: 10 mg Ferrous Sulfate (Ferrous Sulfate 325 Mg Tab) 325 mg PO DAILY [facility] Last Admin: 04/15/23 10:19 Dose: 325 mg Gabapentin (Gabapentin 300 Mg Cap) 300 mg PO BID [facility] Last Admin: 04/15/23 10:18 Dose: 300 mg Lisinopril/HCTZ (Lisinopril-Hctz 10-12.5 Mg 1 Each Tab) 1 each PO BID [facility] Last Admin: 04/15/23 10:18 Dose: 1 each Insulin Aspart (Insulin Aspart (Novolog) 100 Unit/Ml Vial) 0 unit SQ ACHS [facility]; Protocol Last Admin: 04/15/23 11:32 Dose: Not Given Insulin Aspart (Insulin Aspart (Novolog) 100 Unit/Ml Vial) 6 unit SQ AC-TID [facility] Last Admin: 04/15/23 11:54 Dose: 6 unit Insulin Detemir (Insulin Detemir (Levemir) 100 Unit/Ml Syr) 24 unit SQ DAILY@0700 [facility] Isosorbide Mononitrate (Isosorbide Mononitrate Er 30 Mg Tab.Er.24h) 30 mg PO DAILY [facility] Last Admin: 04/15/23 10:19 Dose: 30 mg Lactic Acid (Ammonium Lactate 12% Cream 140 Gm Tube) 1 applic TOPICAL BID PRN; Protocol PRN Reason: Dry Skin Levothyroxine Sodium (Levothyroxine 137 Mcg Tab) 137 mcg PO 0630 [facility] Last Admin: 04/15/23 05:47 Dose: 137 mcg Metformin HCl (Metformin 500 Mg Tab) 500 mg PO AC-TID [facility] Last Admin: 04/15/23 11:36 Dose: 500 mg Metoprolol Tartrate (Metoprolol Tartrate 25 Mg Tab) 25 mg PO BID [facility] Last Admin: 04/15/23 10:19 Dose: 25 mg Naloxone HCl (Naloxone 0.4 Mg/Ml 1 Ml Vial) 0.2 mg IV Q2M PRN PRN Reason: Opioid Reversal Pantoprazole Sodium (Pantoprazole 40 Mg Tablet) 40 mg PO DAILY [facility] Last Admin: 04/15/23 10:19 Dose: 40 mg Trospium (Trospium Chloride 20 Mg Tablet) 20 mg PO DAILY [facility] Last Admin: 04/15/23 10:18 Dose: 20 mg Past medical history to include: CAD with stent, bypass, diabetes, GERD, hypertension, hyperlipidemia, peripheral neuropathy, hypothyroid, PAD Social history: Lives with his sister GEN. Was also the guardian. Smoked about 2 packs a day for 32 years stopped in 2001. Did work at [employer]. Physical examination: VITAL SIGNS: 97.9, 62, 16, 1:30/68, 97% room air GENERAL: BMI 30.1, reclining -comfortable. EYES: Pupils equal. Conjunctiva normal. HEENT: External appearance of nose and ears normal, oral cavity grossly normal. NECK: JVD not raised; masses not palpable. HEART: First and second heart sounds are normal; no edema. LUNGS: Respiratory rate normal; clear to auscultation. ABDOMEN: Soft, nontender, liver spleen not palpable, no masses palpable. PSYCH: Alert and oriented x3; mood and affect normal. MUSCULOSKELETAL:No Clubbing/cyanosis;muscles-grossly intact OA NEUROLOGICAL: Stuttering. Otherwise grossly intact. INVESTIGATIONS, reviewed in the clinical context: TSH 3.2 White count 7.8 hemoglobin 12 platelets 271 sodium 141 potassium 4.4 BUN 28 creatinine 0.94 blood glucose 48 UA glucose 3+ positive EKG tracing personally reviewed by me-normal sinus rhythm. Nonspecific ST-T wave changes. Chest x-ray film personally reviewed by me-unremarkable Head CT: Acute minimally displaced comminuted fracture of the right greater trochanter. Head cervical spine CT: Multilevel DJD.. No fracture. Assessment and plan: -Acute minimally displaced comminuted fracture of the right greater trochanter secondary to fall. Weightbearing as tolerated. With a walker. Avoid active abduction. Seen by Dr. Barnett from orthopedics -Recurrent falls due to recurrent hypoglycemia. -Diabetes mellitus type 2, chronically on insulin. Uncontrolled with hyperglycemia start Lantus 24 units a day... Metformin, jardiance -Coronary artery disease and history of stent, bypass Aspirin, Lopressor -GERD Protonix -Hyperlipidemia Lipitor 80 -Essential hypertension, Lopressor 25 mg twice a day, Zestoretic 10/12.5 one tablet twice a day. -Hypothyroid Synthroid. -Peripheral neuropathy Cutback Neurontin 300 mg bid -Chronic bladder dysfunction Vesicare -Depression and anxiety Lexapro -Full code Resume Lantus. Scheduled Humalog 6 units with meals. Discussed with the sister and the patient. At a nurse.
[2023-04-15 16:22] LABS: Glucose,Whole Blood 81 mg/dL (70-110)
[2023-04-15] MEDS: ACETAMINOPHEN TAB 325 MG TAB PO PRN (17:51)
[2023-04-15 20:09] LABS: Glucose,Whole Blood 143 mg/dL (70-110)
[2023-04-15] MEDS: traMADol 50 MG TAB PO PRN (20:27)
[2023-04-16 02:43] LABS: Glucose,Whole Blood 35 mg/dL (70-110)
[2023-04-16] MEDS: DEXTROSE 50% SYRINGE 50 ML IVP PRN (02:49)
[2023-04-16 03:28] LABS: Glucose,Whole Blood 171 mg/dL (70-110)
[2023-04-16 05:51] LABS: Glucose,Whole Blood 397 mg/dL (70-110)
[2023-04-16] MEDS: LEVOTHYROXINE 137 MCG TAB PO SCH (06:10)
[2023-04-16] MEDS: metFORMIN 500 MG TAB PO SCH ×3 (06:10→17:00)
[2023-04-16] MEDS: INSULIN ASPART (NovoLOG) 100 UNIT/ML VIAL SQ SCH ×7 (06:10→20:33)
[2023-04-16] MEDS ORDERED: INSULIN DETEMIR (LEVEMIR) 100 UNIT/ML SYR SQ SCH (07:00)
[2023-04-16] MEDS: ISOSORBIDE MONONITRATE ER 30 MG TAB.ER.24H PO SCH (07:56)
[2023-04-16] MEDS: METOPROLOL TARTRATE 25 MG TAB PO SCH ×2 (07:56→20:35)
[2023-04-16] MEDS: LISINOPRIL-HCTZ 10-12.5 MG 1 EACH TAB PO SCH ×2 (07:56→20:35)
[2023-04-16] MEDS: ESCITALOPRAM 10 MG TAB PO SCH (07:56)
[2023-04-16] MEDS: FERROUS SULFATE 325 MG TAB PO SCH (07:56)
[2023-04-16] MEDS: ASPIRIN 81 MG PO SCH (07:56)
[2023-04-16] MEDS: TROSPIUM CHLORIDE 20 MG TABLET PO SCH (07:56)
[2023-04-16] MEDS: PANTOPRAZOLE 40 MG TABLET PO SCH (07:56)
[2023-04-16] MEDS: ATORVASTATIN 80 MG TAB PO SCH (07:56)
[2023-04-16] MEDS: DAPAGLIFLOZIN PROPANEDIOL 10 MG TABLET PO SCH (07:56)
[2023-04-16] MEDS: GABAPENTIN 300 MG CAP PO SCH ×2 (07:56→20:35)
[2023-04-16] MEDS: ENOXAPARIN 40 MG/0.4 ML SYRINGE SQ SCH (07:57)
[2023-04-16] MEDS: ACETAMINOPHEN TAB 325 MG TAB PO PRN (08:01)
[2023-04-16 11:09] LABS: Glucose,Whole Blood 86 mg/dL (70-110)
[2023-04-16 16:13] LABS: Glucose,Whole Blood 273 mg/dL (70-110)
--- NOTE | 2023-04-16 17:58 | P.PN ---
Progress Note - Text Progress Note Date: 04/16/23 Chief Complaint: Fall This is a pleasant 72-year-old patient follows with Dr. Bell. Patient lives with his sister who is also the guardian. Patient been having hypoglycemic episodes at home. Gets tremors are noted.. About 5 times in the last few days. Patient took a fall again yesterday. Right greater trochanter minimally displaced fracture occurred. Patient's appetite is good. Last night Lantus was held. Blood glucose in the ER yesterday was 48. Patient denies any chest pain or palpitation. And a baseline patient has stuttering when he talks. Denies any fever and chills. April 15: Blood glucose 463 this morning. Patient's sister the bedside. She did tell me that patient is supposed to take Lantus 26 years in the morning. She was mistakenly also given Humalog 26 units along with that. This morning patient's Levemir has been resumed. At 22 units. Extra NovoLog is being given. Watch another 24 hours. Oral intake good. Discussed with the nurse. Time spent today over 50 minutes April 16: At about 2:30 AM she'll drop blood glucose to 35. Today patient had received 24 units of Levemir in the morning. This involving cutback to 18 units for tomorrow morning. Also scheduled NovoLog is being cut back to 4 units with meals. Discussed with the patient's sister the bedside. Depending upon what Accu-Cheks remained tomorrow patient should be able to be discharged home tomorrow evening. Active Medications Acetaminophen (Acetaminophen Tab 325 Mg Tab) 650 mg PO Q6HR PRN PRN Reason: Mild Pain or Fever > 100.5 Last Admin: 04/16/23 08:01 Dose: 650 mg Aspirin (Aspirin 81 Mg) 81 mg PO DAILY [facility] Last Admin: 04/16/23 07:56 Dose: 81 mg Atorvastatin Calcium (Atorvastatin 80 Mg Tab) 80 mg PO DAILY [facility] Last Admin: 04/16/23 07:56 Dose: 80 mg Dapagliflozin (Dapagliflozin Propanediol 10 Mg Tablet) 10 mg PO DAILY [facility] Last Admin: 04/16/23 07:56 Dose: 10 mg Dextrose/Water (Dextrose 50% Syringe 50 Ml) 25 ml IVP PER PROTOCOL PRN; Protocol PRN Reason: Hypoglycemia Dextrose/Water (Dextrose 50% Syringe 50 Ml) 50 ml IVP PER PROTOCOL PRN; Protocol PRN Reason: Hypoglycemia Last Admin: 04/16/23 02:49 Dose: 50 ml Enoxaparin Sodium (Enoxaparin 40 Mg/0.4 Ml Syringe) 40 mg SQ DAILY [facility] Last Admin: 04/16/23 07:57 Dose: 40 mg Escitalopram Oxalate (Escitalopram 10 Mg Tab) 10 mg PO DAILY [facility] Last Admin: 04/16/23 07:56 Dose: 10 mg Ferrous Sulfate (Ferrous Sulfate 325 Mg Tab) 325 mg PO DAILY [facility] Last Admin: 04/16/23 07:56 Dose: 325 mg Gabapentin (Gabapentin 300 Mg Cap) 300 mg PO BID [facility] Last Admin: 04/16/23 07:56 Dose: 300 mg Lisinopril/HCTZ (Lisinopril-Hctz 10-12.5 Mg 1 Each Tab) 1 each PO BID [facility] Last Admin: 04/16/23 07:56 Dose: 1 each Insulin Aspart (Insulin Aspart (Novolog) 100 Unit/Ml Vial) 0 unit SQ [facility]; Protocol Last Admin: 04/16/23 17:00 Dose: 6 unit Insulin Aspart (Insulin Aspart (Novolog) 100 Unit/Ml Vial) 4 unit SQ AC-TID [facility] Last Admin: 04/16/23 17:00 Dose: 4 unit Insulin Detemir (Insulin Detemir (Levemir) 100 Unit/Ml Syr) 18 unit SQ DAILY@0700 [facility] Isosorbide Mononitrate (Isosorbide Mononitrate Er 30 Mg Tab.Er.24h) 30 mg PO DAILY [facility] Last Admin: 04/16/23 07:56 Dose: 30 mg Lactic Acid (Ammonium Lactate 12% Cream 140 Gm Tube) 1 applic TOPICAL BID PRN; Protocol PRN Reason: Dry Skin Levothyroxine Sodium (Levothyroxine 137 Mcg Tab) 137 mcg PO 0630 [facility] Last Admin: 04/16/23 06:10 Dose: 137 mcg Metformin HCl (Metformin 500 Mg Tab) 500 mg PO AC-TID [facility] Last Admin: 04/16/23 17:00 Dose: 500 mg Metoprolol Tartrate (Metoprolol Tartrate 25 Mg Tab) 25 mg PO BID [facility] Last Admin: 04/16/23 07:56 Dose: 25 mg Naloxone HCl (Naloxone 0.4 Mg/Ml 1 Ml Vial) 0.2 mg IV Q2M PRN PRN Reason: Opioid Reversal Pantoprazole Sodium (Pantoprazole 40 Mg Tablet) 40 mg PO DAILY [facility] Last Admin: 04/16/23 07:56 Dose: 40 mg Tramadol HCl (Tramadol 50 Mg Tab) 50 mg PO QID PRN PRN Reason: Moderate to Severe Pain (4-10) Last Admin: 04/15/23 20:27 Dose: 50 mg Trospium (Trospium Chloride 20 Mg Tablet) 20 mg PO DAILY [facility] Last Admin: 04/16/23 07:56 Dose: 20 mg Past medical history to include: CAD with stent, bypass, diabetes, GERD, hypertension, hyperlipidemia, peripheral neuropathy, hypothyroid, PAD Social history: Lives with his sister Was also the guardian. Smoked about 2 packs a day for 32 years stopped in 2001. Did work at [employer]. Physical examination: VITAL SIGNS: 97.9, 51, 16, 109/63, 96% room air GENERAL: BMI 30.1, reclining -comfortable. EYES: Pupils equal. Conjunctiva normal. HEENT: External appearance of nose and ears normal, oral cavity grossly normal. NECK: JVD not raised; masses not palpable. HEART: First and second heart sounds are normal; no edema. LUNGS: Respiratory rate normal; clear to auscultation. ABDOMEN: Soft, nontender, liver spleen not palpable, no masses palpable. PSYCH: Alert and oriented x3; mood and affect normal. MUSCULOSKELETAL:No Clubbing/cyanosis;muscles-grossly intact OA NEUROLOGICAL: Stuttering. Otherwise grossly intact. INVESTIGATIONS, reviewed in the clinical context: TSH 3.2 White count 7.8 hemoglobin 12 platelets 271 sodium 141 potassium 4.4 BUN 28 creatinine 0.94 blood glucose 48 UA glucose 3+ positive EKG tracing personally reviewed by me-normal sinus rhythm. Nonspecific ST-T wave changes. Chest x-ray film personally reviewed by me-unremarkable Head CT: Acute minimally displaced comminuted fracture of the right greater trochanter. Head cervical spine CT: Multilevel DJD.. No fracture. Assessment and plan: -Acute minimally displaced comminuted fracture of the right greater trochanter secondary to fall. Weightbearing as tolerated. With a walker. Avoid active abduction. Seen by Dr. Barnett from orthopedics -Recurrent falls due to recurrent hypoglycemia. -Diabetes mellitus type 2, chronically on insulin. Uncontrolled with hyperglycemia and hypoglycemia. Cutback Levemir 18 units a day... Metformin, jardiance. Cutback scheduled Humalog to 4 units with meals -Coronary artery disease and history of stent, bypass Aspirin, Lopressor -GERD Protonix -Hyperlipidemia Lipitor 80 -Essential hypertension, Lopressor 25 mg twice a day, Zestoretic 1012.5 one tablet twice a day. -Hypothyroid Synthroid. -Peripheral neuropathy Cutback Neurontin 300 mg bid -Chronic bladder dysfunction Vesicare -Depression and anxiety Lexapro -Full code Cutback Humalog to 4 units with meals. Cutback Levemir to 18 units in the morning. Depending on Accu-Cheks patient can be discharged hopefully tomorrow evening. No change in current blood pressure medications.
[2023-04-16 20:30] LABS: Glucose,Whole Blood 81 mg/dL (70-110)
[2023-04-17] MEDS: traMADol 50 MG TAB PO PRN (00:47)
[2023-04-17 01:05] LABS: Glucose,Whole Blood 118 mg/dL (70-110)
[2023-04-17 05:53] LABS: Glucose,Whole Blood 206 mg/dL (70-110)
[2023-04-17] MEDS: INSULIN ASPART (NovoLOG) 100 UNIT/ML VIAL SQ SCH ×4 (06:30→11:59)
[2023-04-17] MEDS: metFORMIN 500 MG TAB PO SCH ×2 (06:30→11:59)
[2023-04-17] MEDS: LEVOTHYROXINE 137 MCG TAB PO SCH (06:30)
[2023-04-17] MEDS ORDERED: INSULIN DETEMIR (LEVEMIR) 100 UNIT/ML SYR SQ SCH (07:00)
[2023-04-17 07:24] VITALS: TEMP 97.6
[2023-04-17] MEDS: FERROUS SULFATE 325 MG TAB PO SCH (07:24)
[2023-04-17] MEDS: ISOSORBIDE MONONITRATE ER 30 MG TAB.ER.24H PO SCH (07:24)
[2023-04-17] MEDS: ASPIRIN 81 MG PO SCH (07:24)
[2023-04-17] MEDS: ENOXAPARIN 40 MG/0.4 ML SYRINGE SQ SCH (07:24)
[2023-04-17] MEDS: METOPROLOL TARTRATE 25 MG TAB PO SCH (07:24)
[2023-04-17] MEDS: PANTOPRAZOLE 40 MG TABLET PO SCH (07:24)
[2023-04-17] MEDS: GABAPENTIN 300 MG CAP PO SCH (07:24)
[2023-04-17] MEDS: ATORVASTATIN 80 MG TAB PO SCH (07:24)
[2023-04-17] MEDS: DAPAGLIFLOZIN PROPANEDIOL 10 MG TABLET PO SCH (07:25)
[2023-04-17] MEDS: LISINOPRIL-HCTZ 10-12.5 MG 1 EACH TAB PO SCH (07:25)
[2023-04-17] MEDS: ESCITALOPRAM 10 MG TAB PO SCH (07:25)
[2023-04-17] MEDS: TROSPIUM CHLORIDE 20 MG TABLET PO SCH (07:25)
[2023-04-17 07:50] VITALS: RESP 18
[2023-04-17 11:39] LABS: Glucose,Whole Blood 116 mg/dL (70-110)
[2023-04-17 13:56] VITALS: BP 103/56; PULSE 64
--- NOTE | 2023-04-17 14:08 | P.DS ---
Providers Date of admission: 04/13/23 16:20 Expected date of discharge: 04/17/23 Attending physician: José Luis Parks Consults: 04/13/23 16:18 Consult Physician Routine Consulting Provider: Piotr Barnett Consult Reason/Comments: fall, right great trochanteric fracture Do you want consulting provider notified?: Already Contacted Primary care physician: [facility] Course: Discharge diagnoses; Acute minimally displaced comminuted fracture of the right greater trochanter secondary to fall. Weightbearing as tolerated. With a walker. Avoid active abduction. Seen by Dr. Barnett from orthopedics, outpatient follow-up -Recurrent falls due to recurrent hypoglycemia. -Diabetes mellitus type 2, chronically on insulin. Uncontrolled with hyperglycemia and hypoglycemia. Cutback Levemir 18 units a day... Metformin, jardiance. Cutback scheduled Humalog to 4 units with meals -Coronary artery disease and history of stent, bypass Aspirin, Lopressor -GERD Protonix -Hyperlipidemia Lipitor 80 -Essential hypertension, Lopressor 25 mg twice a day, Zestoretic 10/12.5 one tablet twice a day. -Hypothyroid Synthroid. -Peripheral neuropathy Continue Neurontin 300 mg bid -Chronic bladder dysfunction Vesicare -Depression and anxiety [facility] course; This is a pleasant 72-year-old patient follows with Dr. Bell. Patient lives with his sister who is also the guardian. Patient been having hypoglycemic episodes at home. Gets tremors are noted.. About 5 times in the last few days. Patient took a fall again yesterday. Right greater trochanter minimally displaced fracture occurred. Patient's appetite is good. Last night Lantus was held. Blood glucose in the ER yesterday was 48. Patient denies any chest pain or palpitation. And a baseline patient has stuttering when he talks. Denies any fever and chills. April 15: Blood glucose 463 this morning. Patient's sister the bedside. She did tell me that patient is supposed to take Lantus 26 years in the morning. She was mistakenly also given Humalog 26 units along with that. This morning patient's Levemir has been resumed. At 22 units. Extra NovoLog is being given. Watch another 24 hours. Oral intake good. Discussed with the nurse. Time spent today over 50 minutes April 16: At about 2:30 AM she'll drop blood glucose to 35. Today patient had received 24 units of Levemir in the morning. This involving cutback to 18 units for tomorrow morning. Also scheduled NovoLog is being cut back to 4 units with meals. Discussed with the patient's sister the bedside. Depending upon what Accu-Cheks remained tomorrow patient should be able to be discharged home tomorrow evening. 04/17. Patient seen and examined and blood sugar is better controlled, no evide nce of hypoglycemia. Being discharged on current regimen of Lantus 18 units in the morning and NovoLog 4 units with meals PHYSICAL EXAMINATION: GENERAL: The patient is alert and oriented x3, not in any acute distress. Well developed, well nourished. HEENT: Pupils are round and equally reacting to light. EOMI. No scleral icterus. No conjunctival pallor. Normocephalic, atraumatic. No pharyngeal erythema. No thyromegaly. CARDIOVASCULAR: S1 and S2 present. No murmurs, rubs, or gallops. PULMONARY: Chest is clear to auscultation, no wheezing or crackles. ABDOMEN: Soft, nontender, nondistended, normoactive bowel sounds. No palpable organomegaly. MUSCULOSKELETAL: No joint swelling or deformity. EXTREMITIES: No cyanosis, clubbing, or pedal edema. NEUROLOGICAL: Gross neurological examination did not reveal any focal deficits. SKIN: No rashes. Patient Condition at Discharge: Stable Plan - Discharge Summary Discharge Rx Participant: No New Discharge Prescriptions: New Lisinopril-Hctz 10-12.5 mg [Zestoretic 10-12.5] 1 each PO BID #30 tab Continue Isosorbide Mononitrate ER [Imdur] 30 mg PO DAILY Pantoprazole Sodium [Protonix] 40 mg PO DAILY Metoprolol Tartrate [Lopressor] 25 mg PO DAILY Ferrous Sulfate [Iron (65 MG Elemental)] 325 mg PO DAILY Aspirin [[place] Aspirin EC] 81 mg PO DAILY Gabapentin [Neurontin] 300 mg PO TID Levothyroxine Sodium [Synthroid] 137 mcg PO DAILY Ammonium Lactate Cream [Lac-Hydrin 12% Cream] 1 applic TOPICAL BID PRN PRN Reason: Dry Skin Empagliflozin [Jardiance] 25 mg PO DAILY Glucagon Emergency Kit 1 mg IM ONCE PRN PRN Reason: LOW BLOOD SUGAR Escitalopram [Lexapro] 10 mg PO DAILY Insulin Glargine,Hum.rec.anlog [Lantus Solostar Pen] 20 unit SQ DAILY Insulin Aspart [NovoLOG Flexpen] See Protocol SQ AC-TID Atorvastatin [Lipitor] 80 mg PO DAILY metFORMIN HCL ER [Glucophage XR] 1,000 mg PO W/SUPPER Solifenacin Succinate [Vesicare] 5 mg PO DAILY Discharge Medication List Aspirin [[place] Aspirin EC] 81 mg PO DAILY 03/13/19 [History] Ferrous Sulfate [Iron (65 MG Elemental)] 325 mg PO DAILY 03/13/19 [History] Gabapentin [Neurontin] 300 mg PO TID 03/13/19 [History] Isosorbide Mononitrate ER [Imdur] 30 mg PO DAILY 03/13/19 [History] Levothyroxine Sodium [Synthroid] 137 mcg PO DAILY 03/13/19 [History] Metoprolol Tartrate [Lopressor] 25 mg PO DAILY 03/13/19 [History] Pantoprazole Sodium [Protonix] 40 mg PO DAILY 03/13/19 [History] Insulin Aspart [NovoLOG Flexpen] See Protocol SQ AC-TID 03/30/21 [History] Insulin Glargine,Hum.rec.anlog [Lantus Solostar Pen] 20 unit SQ DAILY 03/30/21 [History] Ammonium Lactate Cream [Lac-Hydrin 12% Cream] 1 applic TOPICAL BID PRN 04/13/23 [History] Atorvastatin [Lipitor] 80 mg PO DAILY 04/13/23 [History] Empagliflozin [Jardiance] 25 mg PO DAILY 04/13/23 [History] Escitalopram [Lexapro] 10 mg PO DAILY 04/13/23 [History] Glucagon Emergency Kit 1 mg IM ONCE PRN 04/13/23 [History] Solifenacin Succinate [Vesicare] 5 mg PO DAILY 04/13/23 [History] metFORMIN HCL ER [Glucophage XR] 1,000 mg PO W/SUPPER 04/13/23 [History] Lisinopril-Hctz 10-12.5 mg [Zestoretic 10-12.5] 1 each PO BID #30 tab 04/17/23 [Rx] Follow up Appointment(s)/Referral(s): Souphis,Mika, DO [Primary Care Provider] - 1-2 days [facility], [NON-STAFF] - 1-2 Days Piotr Barnett MD [Medical Doctor] - 1 Week Activity/Diet/Wound Care/Special Instructions: Take Lantus 18 units in the morning Take Humalog 4 units with meals
== END 2023-04-17 15:54 | disposition home health service (06) | DRG 637 ==
LOC: EC 12:33 → 4SSUR 16:20
PROVIDERS: ADMIT Hospitalist; ATTEND Hospitalist
DX: E11.649 Type 2 diabetes mellitus with hypoglycemia without coma (principal); S72.111A Displaced fracture of greater trochanter of right femur, initial encounter for closed fracture; F03.A3 Unspecified dementia, mild, with mood disturbance; F03.A4 Unspecified dementia, mild, with anxiety; E11.42 Type 2 diabetes mellitus with diabetic polyneuropathy; E11.69 Type 2 diabetes mellitus with other specified complication; E11.51 Type 2 diabetes mellitus with diabetic peripheral angiopathy without gangrene; E11.65 Type 2 diabetes mellitus with hyperglycemia; I10 Essential (primary) hypertension; E78.5 Hyperlipidemia, unspecified; E03.9 Hypothyroidism, unspecified; K21.9 Gastro-esophageal reflux disease without esophagitis; N31.9 Neuromuscular dysfunction of bladder, unspecified; R25.1 Tremor, unspecified; R29.6 Repeated falls; W19.XXXA Unspecified fall, initial encounter; Z79.4 Long term (current) use of insulin; Z28.310 Unvaccinated for COVID-19; Z87.891 Personal history of nicotine dependence; Z95.1 Presence of aortocoronary bypass graft; Z95.5 Presence of coronary angioplasty implant and graft; I25.2 Old myocardial infarction; Z79.890 Hormone replacement therapy; Z79.82 Long term (current) use of aspirin; Z79.891 Long term (current) use of opiate analgesic; Z79.84 Long term (current) use of oral hypoglycemic drugs; Z91.81 History of falling; Z79.899 Other long term (current) drug therapy
CPT/HCPCS: 36415; 70450; 71046; 72125; 73502; 80048; 80053; 80320; 81003; 83036; 83735; 84443; 85025; 85610; 85730; 93005; 94760; 96360; 99285

== ENCOUNTER 2023-04-18 14:35 | Emergency (ER) | payer MEDICARE, BC ==
[2023-04-18] MEDS ORDERED: MORPHINE SULFATE 4 MG/ML SYRINGE IVP STA (16:17)
--- NOTE | 2023-04-18 16:43 | ED ---
General Adult HPI - General Chief complaint: Extremity Injury, Lower Stated complaint: Right Hip pain/hyerglycemia Time Seen by Provider: 04/18/23 16:06 Source: patient, EMS Mode of arrival: EMS Limitations: language barrier, physical limitation - History of Present Illness Initial comments: 72-year-old male with past medical history significant for diabetes causing hypoglycemia and frequent falls presents today with a chief complaint of right hip pain. Patient discharged yesterday after a fall. CT of the hip showed a right greater trochanteric minimally displaced fracture with no intertrochanteric extension. Evaluated by orthopedics who recommended nonsurgical treatment weight bear as tolerated. Per sister and patient, was attempting to walk up the stairs when his right leg gave out and he fell backwards onto his right hip. Now complains of worsening right hip pain. Denies head or neck injury at this time. Baby aspirin on a daily basis. Denies chest pain shortness of breath. - Related Data Home Medications Medication Instructions Recorded Confirmed Aspirin [[place] Aspirin EC] 81 mg PO DAILY 03/13/19 04/18/23 Ferrous Sulfate [Iron (65 MG 325 mg PO DAILY 03/13/19 04/18/23 Elemental)] Gabapentin [Neurontin] 300 mg PO TID 03/13/19 04/18/23 Isosorbide Mononitrate ER [Imdur] 30 mg PO DAILY 03/13/19 04/18/23 Levothyroxine Sodium [Synthroid] 137 mcg PO DAILY 03/13/19 04/18/23 Metoprolol Tartrate [Lopressor] 25 mg PO DAILY 03/13/19 04/18/23 Pantoprazole Sodium [Protonix] 40 mg PO DAILY 03/13/19 04/18/23 Insulin Aspart [NovoLOG Flexpen] See Protocol SQ AC-TID 03/30/21 04/18/23 Insulin Glargine,Hum.rec.anlog 20 unit SQ DAILY 03/30/21 04/18/23 [Lantus Solostar Pen] Ammonium Lactate Cream [Lac-Hydrin 1 applic TOPICAL BID PRN 04/13/23 04/18/23 12% Cream] Atorvastatin [Lipitor] 80 mg PO DAILY 04/13/23 04/18/23 Empagliflozin [Jardiance] 25 mg PO DAILY 04/13/23 04/18/23 Escitalopram [Lexapro] 10 mg PO DAILY 04/13/23 04/18/23 Glucagon Emergency Kit 1 mg IM ONCE PRN 04/13/23 04/18/23 Solifenacin Succinate [Vesicare] 5 mg PO DAILY 04/13/23 04/18/23 metFORMIN HCL ER [Glucophage XR] 1,000 mg PO W/SUPPER 04/13/23 04/18/23 Lisinopril-Hctz 10-12.5 mg 1 tab PO BID 04/18/23 04/18/23 [Zestoretic 10-12.5] Allergies Allergy/AdvReac Type Severity Reaction Status Date / Time No Known Allergies Allergy Verified 04/18/23 17:20 Review of Systems ROS Statement: Those systems with pertinent positive or pertinent negative responses have been documented in the HPI. ROS Other: All systems not noted in ROS Statement are negative. Past Medical History Past Medical History: Coronary Artery Disease (CAD), Diabetes Mellitus, GERD/Reflux, Hyperlipidemia, Hypertension, Myocardial Infarction (PA), Thyroid Disorder Additional Past Medical History / Comment(s): neuropathy Last Myocardial Infarction Date:: unknown History of Any Multi-Drug Resistant Organisms: None Reported Past Surgical History: Appendectomy, Coronary Bypass/CABG, Heart Catheterization With Stent Additional Past Surgical History / Comment(s): Sister relays, "He had peripheral artery surgery too." Past Anesthesia/Blood Transfusion Reactions: No Reported Reaction Date of Last Stent Placement:: unknown Past Psychological History: Depression Smoking Status: Former smoker Past Alcohol Use History: Daily Past Drug Use History: Marijuana - Past Family History Father Family Medical History: Congestive Heart Failure (CHF) Mother Additional Family Medical History / Comment(s): of old age. General Exam Limitations: language barrier (Stutters at baseline ), physical limitation General appearance: alert, in no apparent distress Head exam: Present: atraumatic, normocephalic Eye exam: Present: normal appearance Neck exam: Present: other (No midline cervical spinal tenderness to palpation) Respiratory exam: Present: wheezes (Diffuse wheezes in bilateral lung alexandra) Cardiovascular Exam: Present: regular rate, normal rhythm Extremities exam: Present: other (Strength and Sensation of bilateral lower extremities 5/5. Unable to log roll right hip secondary to pain. No shortening or rotation. No crepitus of the tibia or the fibula or step-off.) Back exam: Present: other (No midline thoracic or lumbar spinal tenderness to palpation) Neurological exam: Present: alert, oriented X3 Skin exam: Present: warm, dry Course Vital Signs 04/18/23 14:41 Temperature 97.2 F L Pulse Rate 73 Respiratory 16 Rate Blood Pressure 155/62 O2 Sat by Pulse 97 Oximetry Medical Decision Making - Medical Decision Making Was pt. sent in by a medical professional or institution (, PA, [employer], urgent care, hospital, or long term...) When possible be specific @ -No Did you speak to anyone other than the patient for history (EMS, parent, family, police, friend...)? What history was obtained from this source @ -Spoke to patient's sister/guardian who corroborates history. Did you review nursing and triage notes (agree or disagree)? Why? @ -I reviewed and agree with nursing and triage notes Were old charts reviewed (outside hosp., previous admission, EMS record, old EKG, old radiological studies, urgent care reports/EKG's, long term records)? Report findings @ -Reviewed discharge/orthopedic evaluation that showed history of right greater trochanteric minimally displaced fracture with no intertrochanteric extension. Orthopedics recommended nonsurgical treatment and weightbearing as tolerated at this time. Differential Diagnosis (chest pain, altered mental status, abdominal pain women, abdominal pain men, vaginal bleeding, weakness, fever, dyspnea, syncope, headache, dizziness, GI bleed, back pain, seizure, CVA, palpatations, mental health, musculoskeletal)? @ -Acute brain hemorrhage, cervical fracture, worsening hip fracture, femur/tib-fib fracture. This is not meant to be an all-inclusive list. EKG interpreted by me (3pts min.). @ -None X-rays interpreted by me (1pt min.). @ -X-rays of the femur and tib/fib showed no acute findings. CT interpreted by me (1pt min.). @ -CT of the right hip showed the same right greater trochanteric fracture mi nimally displaced with no intertrochanteric extension with improvement of soft tissue swelling. CT of the brain and C-spine showed no acute findings. U/S interpreted by me (1pt. min.). @ -None done What testing was considered but not performed or refused? (CT, X-rays, U/S, labs)? Why? @ -None What meds were considered but not given or refused? Why? @ -None Did you discuss the management of the patient with other professionals (professionals i.e. , PA, [employer], lab, RT, psych nurse, social media community manager, senior benefits analyst, teacher, special loan officer, major case detective)? Give summary @ -No Was smoking cessation discussed for >3mins.? @ -No Was critical care preformed (if so, how long)? @ -No Were there social determinants of health that impacted care today? How? (Homelessness, low income, unemployed, alcoholism, drug addiction, transportation, low edu. Level, literacy, decrease access to med. care, penitentiary, rehab)? @ -No Was there de-escalation of care discussed even if they declined (Discuss DNR or withdrawal of care, Hospice)? DNR status @ -No What co-morbidities impacted this encounter? (DM, HTN, Smoking, COPD, CAD, Cancer, CVA, ARF, Chemo, Hep., AIDS, mental health diagnosis, sleep apnea, morbid obesity)? @ -Diabetes Was patient admitted / discharged? Hospital course, mention meds given and route, prescriptions, significant lab abnormalities, going to OR and other pertinent info. @ -Discharge. Imaging studies showed no acute/worsening findings. Patient had improvement of pain with morphine. Patient able to ambulate in the ER with a cane without significant difficulty. He will be discharged home with the same recommendations as previously given by orthopedics - WBAT. Patient discharged in stable condition. Discussed return precautions with patient's guardian who verbally agreed. Undiagnosed new problem with uncertain prognosis? @ -No Drug Therapy requiring intensive monitoring for toxicity (Heparin, Nitro, Insulin, Cardizem)? @ -No Were any procedures done? @ -No Diagnosis/symptom? @ -Right greater trochanteric fracture Acute, or Chronic, or Acute on Chronic? @ -Acute Uncomplicated (without systemic symptoms) or Complicated (systemic symptoms)? @ -Uncomplicated Side effects of treatment? @ -No Exacerbation, Progression, or Severe Exacerbation? @ -No Poses a threat to life or bodily function? How? (Chest pain, [place], PA, pneumonia, PE, COPD, DKA, ARF, appy, cholecystitis, CVA, Diverticulitis, Homicidal, Suicidal, threat to staff... and all critical care pts) @ -No Disposition Clinical Impression: Hip fracture, right Disposition: HOME SELF-CARE Condition: Good Instructions (If sedation given, give patient instructions): Hip Pain (ED) Additional Instructions: Please return to the Emergency Department if symptoms worsen or any other concerns. Is patient prescribed a controlled substance at d/c from ED?: No Referrals: Mika Bell DO [Primary Care Provider] - 1-2 days Time of Disposition: 18:14
--- NOTE | 2023-04-18 17:28 | CT ---
EXAMINATION TYPE: CT brain cspine wo con DATE OF EXAM: 04/18/2023 COMPARISON: 04/13/2023 HISTORY: 72-year-old male with pain after fall on blood thinners CT DLP: 1370.7 mGycm Automated exposure control for dose reduction was used. Technique: Examination of the head was done in axial plane without intravenous contrast. Coronal and sagittal reconstructions performed. CT of the cervical spine was obtained in axial plane without intravenous injection of contrast mater ial. Coronal and sagittal reformatted images were obtained from the axial views for evaluation of f ractures, spinal alignment and canal. FINDINGS: Head: There is no evidence of acute intracranial hemorrhage, acute ischemic changes, mass, mass-effect, or extra-axial fluid collection. There is no effacement of cerebral sulci or basal subarachnoid cister ns. There is no hydrocephalus. There is no midline shift. Coburn-white matter distinction is preserv ed. Atherosclerotic calcifications in the carotid siphons. Mild to moderate generalized supratentorial vo lume loss. Paranasal sinuses and mastoid air cells are well pneumatized. Orbits and globes are intact. No calvar ial fracture. Cervical spine: No craniocervical junction anomaly, predental space widening, or prevertebral soft tissue swelling. Moderate to advanced spondylotic change throughout the cervical spine. Alignment is maintained. No ac viejas fracture of the cervical spine. Disc osteophyte complexes contribute to variable mild to moderate canal stenosis throughout. Additional variable moderate neuroforaminal stenoses throughout. Extensive pleural parenchymal scarring at the apices with underlying emphysematous change. Sagittal and coronal reformatted images confirm above findings. COMBINED IMPRESSION: 1. Mild to moderate cerebral atrophy. No acute intracranial abnormality seen. 2. Moderate to advanced multilevel spondylotic change. No acute fracture or malalignment of the cervi jenny spine.
--- NOTE | 2023-04-18 17:38 | CT ---
EXAMINATION TYPE: CT hip RT wo con DATE OF EXAM: 04/18/2023 COMPARISON: 04/13/2023 HISTORY: 72-year-old male with history of right greater trochanteric fracture. TECHNIQUE: Contiguous axial scanning of the right hip without IV contrast. Coronal and sagittal recon structions performed. Reconstructions generated on a dedicated workstation. CT DLP: 575.6 mGycm Automated exposure control for dose reduction was used. FINDINGS: Redemonstrated mildly comminuted fracture of the right greater trochanter. Minimal off set to 3 mm. N o significant displacement is seen. No clear intertrochanteric extension is identified. Some of the a djacent soft tissue swelling shows slight improvement. Underlying mild degenerative change at the rig ht hip with marginal spurring and axial joint space narrowing. Marked distention of the urinary bladder. IMPRESSION: 1. SEVERE DISTENTION OF THE URINARY BLADDER. CORRELATE TO EXCLUDE URINARY RETENTION/BLADDER OUTLET OB STRUCTION. 2. MILDLY COMMINUTED, RIGHT GREATER TROCHANTER FRACTURE REDEMONSTRATED. MINIMAL INTERVAL DISPLACEMENT UP TO 3 MM. SOFT TISSUE SWELLING MAY HAVE SLIGHTLY IMPROVED. 3. UNDERLYING MILD RIGHT HIP OA.
--- NOTE | 2023-04-18 17:43 | XR ---
EXAMINATION TYPE: XR femur 2 views RT, XR tibia fibula 2 views RT DATE OF EXAM: 04/18/2023 COMPARISON: NONE HISTORY: 72-year-old male with pain after fall FINDINGS: Femur: Mildly comminuted fracture of the right greater trochanter offset medially by 3 mm. Some adjacent sof t tissue swelling. Mild degenerative change of the right hip. Vascular calcifications. Surgical clips medially related to prior saphenous vein graft harvesting. Generalized muscle atrophy. Tibia/fibula: Chronic appearing bony deformity distal fibula suggesting prior healed fracture deformity. Generalize d muscle atrophy. Osteopenia. No acute fracture seen. Vascular calcifications. IMPRESSION: 1. Femur: Mildly comminuted fractures of the right greater trochanter offset medially by 3 mm. Mild r ight hip OA. 2. Tibia/fibula: Generalized muscle atrophy. Vascular calcification. Previous saphenous vein graft ochoa rvesting. Suspect old healed fracture of the distal fibula. No acute osseous abnormality seen.
[2023-04-18 18:37] VITALS: BP 173/72; PULSE 86; RESP 18; TEMP 98.1
== END 2023-04-18 18:37 | disposition home or self-care (01) ==
LOC: EC 14:35
DX: S72.111A Displaced fracture of greater trochanter of right femur, initial encounter for closed fracture (principal); I10 Essential (primary) hypertension; I25.2 Old myocardial infarction; I25.10 Atherosclerotic heart disease of native coronary artery without angina pectoris; E11.9 Type 2 diabetes mellitus without complications; E78.5 Hyperlipidemia, unspecified; K21.9 Gastro-esophageal reflux disease without esophagitis; E07.9 Disorder of thyroid, unspecified; F32.A Depression, unspecified; F12.90 Cannabis use, unspecified, uncomplicated; Z79.01 Long term (current) use of anticoagulants; Z79.4 Long term (current) use of insulin; Z79.82 Long term (current) use of aspirin; Z79.84 Long term (current) use of oral hypoglycemic drugs; Z79.890 Hormone replacement therapy; Z79.899 Other long term (current) drug therapy; Z87.891 Personal history of nicotine dependence; W18.30XA Fall on same level, unspecified, initial encounter
CPT/HCPCS: 73552; 73590; 72125; 70450; 73700; 99285; 96374; J2270

== ENCOUNTER 2023-04-20 17:01 | Inpatient (IN) | payer MEDICARE, BC ==
[2023-04-20] MEDS ORDERED: MORPHINE SULFATE 4 MG/ML SYRINGE IVP STA (18:10)
[2023-04-20 18:44] LABS: Glucose,Whole Blood 410 mg/dL (70-110)
--- NOTE | 2023-04-20 19:13 | ED ---
General Adult HPI - General Chief complaint: Fall Stated complaint: Hip Pain Time Seen by Provider: 04/20/23 17:11 Source: patient, family (Sister), EMS, RN notes reviewed Mode of arrival: EMS Limitations: physical limitation - History of Present Illness Initial comments: 72-year-old male presents emergency department for chief complaint of not being able to walk. Patient and his sister state that he has had multiple falls recently and was admitted to the hospital last week following a fall. He returned home on the and fell on the stairs he came to the emergency department following this. He has not had any new falls since but is u nable to bear weight on the right leg due to pain and history states that he is unable to care for himself at home. She reports that she has been helping him with the dressing and other ADLs. An x-ray of the right hip at that time was performed following the fall on which showed a mildly displaced greater trochanteric fracture which was evident after his fall on and a CT of the hip was performed demonstrating no fracture. - Related Data Home Medications Medication Instructions Recorded Confirmed Aspirin [Medora Aspirin EC] 81 mg PO DAILY 03/13/19 04/20/23 Ferrous Sulfate [Iron (65 MG 325 mg PO DAILY 03/13/19 04/20/23 Elemental)] Isosorbide Mononitrate ER [Imdur] 30 mg PO DAILY 03/13/19 04/20/23 Levothyroxine Sodium [Synthroid] 137 mcg PO DAILY 03/13/19 04/20/23 Metoprolol Tartrate [Lopressor] 25 mg PO DAILY 03/13/19 04/20/23 Pantoprazole Sodium [Protonix] 40 mg PO DAILY 03/13/19 04/20/23 Insulin Aspart [NovoLOG Flexpen] See Protocol SQ AC-TID 03/30/21 04/20/23 Ammonium Lactate Cream [Lac-Hydrin 1 applic TOPICAL BID PRN 04/13/23 04/20/23 12% Cream] Atorvastatin [Lipitor] 80 mg PO DAILY 04/13/23 04/20/23 Empagliflozin [Jardiance] 25 mg PO DAILY 04/13/23 04/20/23 Escitalopram [Lexapro] 10 mg PO DAILY 04/13/23 04/20/23 Glucagon Emergency Kit 1 mg IM ONCE PRN 04/13/23 04/20/23 Solifenacin Succinate [Vesicare] 5 mg PO DAILY 04/13/23 04/20/23 metFORMIN HCL ER [Glucophage XR] 1,000 mg PO W/SUPPER 04/13/23 04/20/23 Previous Rx's Medication Instructions Recorded Gabapentin [Neurontin] 300 mg PO TID 3 Days #6 cap 04/25/23 HYDROcodone/APAP 5-325MG [[place] 1 each PO Q4HR PRN #18 tab 04/25/23 5-325] Insulin Detemir (Levemir) [Levemir] 10 unit SQ HS each 04/25/23 Insulin Detemir (Levemir) [Levemir] 15 unit SQ DAILY@0700 each 04/25/23 Allergies Allergy/AdvReac Type Severity Reaction Status Date / Time No Known Allergies Allergy Verified 04/20/23 20:56 Review of Systems ROS Statement: Those systems with pertinent positive or pertinent negative responses have been documented in the HPI. ROS Other: All systems not noted in ROS Statement are negative. Past Medical History Past Medical History: Coronary Artery Disease (CAD), Diabetes Mellitus, GERD/Reflux, Hyperlipidemia, Hypertension, Myocardial Infarction (PA), Thyroid Disorder Additional Past Medical History / Comment(s): neuropathy Last Myocardial Infarction Date:: unknown History of Any Multi-Drug Resistant Organisms: None Reported Past Surgical History: Appendectomy, Coronary Bypass/CABG, Heart Catheterization With Stent Additional Past Surgical History / Comment(s): Sister relays, "He had peripheral artery surgery too." Past Anesthesia/Blood Transfusion Reactions: No Reported Reaction Date of Last Stent Placement:: unknown Past Psychological History: Depression Smoking Status: Former smoker Past Alcohol Use History: Daily Past Drug Use History: Marijuana - Past Family History Father Family Medical History: Congestive Heart Failure (CHF) Mother Additional Family Medical History / Comment(s): of old age. General Exam Limitations: physical limitation General appearance: alert, in no apparent distress Head exam: Present: atraumatic, normocephalic, normal inspection Eye exam: Present: normal appearance, PERRL, EOMI. Absent: scleral icterus, c onjunctival injection, periorbital swelling ENT exam: Present: normal exam, mucous membranes moist Neck exam: Present: normal inspection. Absent: tenderness, meningismus, lymphadenopathy Respiratory exam: Present: normal lung sounds bilaterally. Absent: respiratory distress, wheezes, rales, rhonchi, stridor Cardiovascular Exam: Present: regular rate, normal rhythm, normal heart sounds. Absent: systolic murmur, diastolic murmur, rubs, gallop, clicks GI/Abdominal exam: Present: soft, normal bowel sounds. Absent: distended, tenderness, guarding, rebound, rigid Extremities exam: Present: tenderness (Tenderness to the right hip), normal capillary refill, other (1+ PT pulses bilaterally, history of arterial disease with prior procedures; patient unable to bear weight on his right leg). Absent: pedal edema, joint swelling, calf tenderness Back exam: Present: normal inspection Neurological exam: Present: alert, oriented X3, other (Patient has a stutter at baseline ) Psychiatric exam: Present: normal affect, normal mood Skin exam: Present: warm, dry, intact, normal color. Absent: rash Course Vital Signs 04/20/23 04/20/23 04/20/23 17:03 18:59 20:21 Temperature 98.0 F Pulse Rate 78 80 77 Respiratory 18 18 18 Rate Blood Pressure 125/55 131/86 102/52 O2 Sat by Pulse 93 L 99 93 L Oximetry 04/20/23 23:00 Temperature Pulse Rate 72 Respiratory 18 Rate Blood Pressure 106/57 O2 Sat by Pulse 94 L Oximetry Medical Decision Making - Medical Decision Making Was pt. sent in by a medical professional or institution ([facility], [employer], urgent care, hospital, or intermediate...) When possible be specific @ -[No] Did you speak to anyone other than the patient for history (EMS, parent, family, police, friend...)? What history was obtained from this source @ -[No] Did you review nursing and triage notes (agree or disagree)? Why? @ -[I reviewed and agree with nursing and triage notes] Were old charts reviewed (outside hosp., previous admission, EMS record, old E KG, old radiological studies, urgent care reports/EKG's, intermediate records)? Report findings @ -[No old charts were reviewed] Differential Diagnosis (chest pain, altered mental status, abdominal pain women, abdominal pain men, vaginal bleeding, weakness, fever, dyspnea, syncope, headache, dizziness, GI bleed, back pain, seizure, CVA, palpatations, mental h ealth, musculoskeletal)? @ -[Differential Musculoskeletal Muscular strain, contusion, ligament sprain, fracture, arthritis, septic arthritis, bursitis, cellulitis, muscle spasm, nerve compression, DVT, arterial occlusion, herpes zoster, electrolyte abnormality, tumor.... This is not meant to be in all inclusive list] EKG interpreted by me (3pts min.). @ -[None] X-rays interpreted by me (1pt min.). @ -[None done] CT interpreted by me (1pt min.). @ -[None done] U/S interpreted by me (1pt. min.). @ -[None done] What testing was considered but not performed or refused? (CT, X-rays, U/S, labs)? Why? @ -[None] What meds were considered but not given or refused? Why? @ -[None] Did you discuss the management of the patient with other professionals (professionals i.e. , PA, INSIDE SALES LEAD, lab, RT, psych nurse, social sciences research scientist, utility bill collector, teacher, security control room officer, family service caseworker)? Give summary @ -[Case discussed with [facility]] Was smoking cessation discussed for >3mins.? @ -[No] Was critical care preformed (if so, how long)? @ -[No] Were there social determinants of health that impacted care today? How? (Homelessness, low income, unemployed, alcoholism, drug addiction, transportation, low edu. Level, literacy, decrease access to med. care, prison, rehab)? @ -[No] Was there de-escalation of care discussed even if they declined (Discuss DNR or withdrawal of care, Hospice)? DNR status @ -[No] What co-morbidities impacted this encounter? (DM, HTN, Smoking, COPD, CAD, Cancer, CVA, ARF, Chemo, Hep., AIDS, mental health diagnosis, sleep apnea, morbid obesity)? @ -[None] Was patient admitted / discharged? Hospital course, mention meds given and route, prescriptions, significant lab abnormalities, going to OR and other pertinent info. @ -[Admitted for observation. Patient presented to emergency department with chief complaint of right hip pain and unable to bear weight and perform ADLs. When patient was discharged from the hospital he was set up with home health but has not been seen by them yet. Patient reports increasing difficulty with walking worse than when he initially presented to the emergency department which at that time he did not qualify for rehab. It is unsafe for the patient to return home as he is unable to care for himself] Undiagnosed new problem with uncertain prognosis? @ -[No] Drug Therapy requiring intensive monitoring for toxicity (Heparin, Nitro, Insulin, Cardizem)? @ -[No] Were any procedures done? @ -[No] Diagnosis/symptom? @ -[greater trochanter fracture] Acute, or Chronic, or Acute on Chronic? @ -[acute] Uncomplicated (without systemic symptoms) or Complicated (systemic symptoms)? @ -[default] Side effects of treatment? @ -[No] Exacerbation, Progression, or Severe Exacerbation? @ -[No] Poses a threat to life or bodily function? How? (Chest pain, USA, PA, pneumonia, PE, COPD, DKA, ARF, appy, cholecystitis, CVA, Diverticulitis, Homicidal, Suicidal, threat to staff... and all critical care pts) @ -[No] - Lab Data Result diagrams: 04/21/23 22:47 04/22/23 08:15 Lab Results 04/20/23 04/20/23 04/20/23 Range/Units 18:42 19:01 19:01 WBC 11.6 H (3.8-10.6) k/uL RBC 3.99 L (4.30-5.90) m/uL Hgb 11.8 L (13.0-17.5) gm/dL Hct 37.9 L (39.0-53.0) % MCV 95.0 (80.0-100.0) fL MCH 29.6 (25.0-35.0) pg MCHC 31.1 (31.0-37.0) g/dL RDW 14.6 (11.5-15.5) % Plt Count 233 (150-450) k/uL MPV 8.6 Neutrophils % 85 % Lymphocytes % 6 % Monocytes % 6 % Eosinophils % 1 % Basophils % 1 % Neutrophils # 9.9 H (1.3-7.7) k/uL Lymphocytes # 0.7 L (1.0-4.8) k/uL Monocytes # 0.7 (0-1.0) k/uL Eosinophils # 0.1 (0-0.7) k/uL Basophils # 0.1 (0-0.2) k/uL Hypochromasia Slight VBG pH (7.31-7.41) VBG pCO2 (37-51) mmHg VBG HCO3 (24-28) mmol/L Sodium 131 L (137-145) mmol/L Potassium 4.7 (3.5-5.1) mmol/L Chloride 93 L (98-107) mmol/L Carbon Dioxide 23 (22-30) mmol/L Anion Gap 15 mmol/L BUN 56 H (9-20) mg/dL Creatinine 1.51 H (0.66-1.25) mg/dL Est GFR (CKD-EPI)AfAm 53 (>60 ml/min/1.73 sqM) Est GFR (CKD-EPI)NonAf 46 (>60 ml/min/1.73 sqM) Glucose 396 H (74-99) mg/dL POC Glucose (mg/dL) 410 H (70-110) mg/dL POC Glu Service Assistant Michele Chilel [address] Glu mg/dL mg/dL Hemoglobin A1c (<=6.0) % Calcium 8.7 (8.4-10.2) mg/dL Phosphorus (2.5-4.5) mg/dL Total Bilirubin 0.8 (0.2-1.3) mg/dL AST 24 (17-59) U/L ALT 30 (4-49) U/L Alkaline Phosphatase 145 H (38-126) U/L Total Protein 6.7 (6.3-8.2) g/dL Albumin 3.4 L (3.5-5.0) g/dL Acetone, Qual (Negative) 04/20/23 04/20/23 04/20/23 Range/Units 19:01 20:13 21:44 WBC (3.8-10.6) k/uL RBC (4.30-5.90) m/uL Hgb (13.0-17.5) gm/dL Hct (39.0-53.0) % MCV (80.0-100.0) fL MCH (25.0-35.0) pg MCHC (31.0-37.0) g/dL RDW (11.5-15.5) % Plt Count (150-450) k/uL MPV Neutrophils % % Lymphocytes % % Monocytes % % Eosinophils % % Basophils % % Neutrophils # (1.3-7.7) k/uL Lymphocytes # (1.0-4.8) k/uL Monocytes # (0-1.0) k/uL Eosinophils # (0-0.7) k/uL Basophils # (0-0.2) k/uL Hypochromasia VBG pH (7.31-7.41) VBG pCO2 (37-51) mmHg VBG HCO3 (24-28) mmol/L Sodium (137-145) mmol/L Potassium (3.5-5.1) mmol/L Chloride (98-107) mmol/L Carbon Dioxide (22-30) mmol/L Anion Gap mmol/L BUN (9-20) mg/dL Creatinine (0.66-1.25) mg/dL Est GFR (CKD-EPI)AfAm (>60 ml/min/1.73 sqM) Est GFR (CKD-EPI)NonAf (>60 ml/min/1.73 sqM) Glucose (74-99) mg/dL POC Glucose (mg/dL) >600 H 352 H (70-110) mg/dL POC Glu Service Assistant KARI Trotter, Michele Agraw[address] Glu mg/dL 186 mg/dL Hemoglobin A1c 8.1 H (<=6.0) % Calcium (8.4-10.2) mg/dL Phosphorus (2.5-4.5) mg/dL Total Bilirubin (0.2-1.3) mg/dL AST (17-59) U/L ALT (4-49) U/L Alkaline Phosphatase (38-126) U/L Total Protein (6.3-8.2) g/dL Albumin (3.5-5.0) g/dL Acetone, Qual (Negative) 04/20/23 04/20/23 04/21/23 Range/Units 22:53 23:46 06:10 WBC (3.8-10.6) k/uL RBC (4.30-5.90) m/uL Hgb (13.0-17.5) gm/dL Hct (39.0-53.0) % MCV (80.0-100.0) fL MCH (25.0-35.0) pg MCHC (31.0-37.0) g/dL RDW (11.5-15.5) % Plt Count (150-450) k/uL MPV Neutrophils % % Lymphocytes % % Monocytes % % Eosinophils % % Basophils % % Neutrophils # (1.3-7.7) k/uL Lymphocytes # (1.0-4.8) k/uL Monocytes # (0-1.0) k/uL Eosinophils # (0-0.7) k/uL Basophils # (0-0.2) k/uL Hypochromasia VBG pH (7.31-7.41) VBG pCO2 (37-51) mmHg VBG HCO3 (24-28) mmol/L Sodium (137-145) mmol/L Potassium (3.5-5.1) mmol/L Chloride (98-107) mmol/L Carbon Dioxide (22-30) mmol/L Anion Gap mmol/L BUN (9-20) mg/dL Creatinine (0.66-1.25) mg/dL Est GFR (CKD-EPI)AfAm (>60 ml/min/1.73 sqM) Est GFR (CKD-EPI)NonAf (>60 ml/min/1.73 sqM) Glucose (74-99) mg/dL POC Glucose (mg/dL) 428 H 324 H 582 H (70-110) mg/dL POC Glu Service Assistant Michele Chilel Taylor Sanchez, Deondra [address] Glu mg/dL mg/dL Hemoglobin A1c (<=6.0) % Calcium (8.4-10.2) mg/dL Phosphorus (2.5-4.5) mg/dL Total Bilirubin (0.2-1.3) mg/dL AST (17-59) U/L ALT (4-49) U/L Alkaline Phosphatase (38-126) U/L Total Protein (6.3-8.2) g/dL Albumin (3.5-5.0) g/dL Acetone, Qual (Negative) 04/21/23 04/21/23 04/21/23 Range/Units 11:53 16:57 17:00 WBC (3.8-10.6) k/uL RBC (4.30-5.90) m/uL Hgb (13.0-17.5) gm/dL Hct (39.0-53.0) % MCV (80.0-100.0) fL MCH (25.0-35.0) pg MCHC (31.0-37.0) g/dL RDW (11.5-15.5) % Plt Count (150-450) k/uL MPV Neutrophils % % Lymphocytes % % Monocytes % % Eosinophils % % Basophils % % Neutrophils # (1.3-7.7) k/uL Lymphocytes # (1.0-4.8) k/uL Monocytes # (0-1.0) k/uL Eosinophils # (0-0.7) k/uL Basophils # (0-0.2) k/uL Hypochromasia VBG pH (7.31-7.41) VBG pCO2 (37-51) mmHg VBG HCO3 (24-28) mmol/L Sodium (137-145) mmol/L Potassium (3.5-5.1) mmol/L Chloride (98-107) mmol/L Carbon Dioxide (22-30) mmol/L Anion Gap mmol/L BUN (9-20) mg/dL Creatinine (0.66-1.25) mg/dL Est GFR (CKD-EPI)AfAm (>60 ml/min/1.73 sqM) Est GFR (CKD-EPI)NonAf (>60 ml/min/1.73 sqM) Glucose (74-99) mg/dL POC Glucose (mg/dL) 468 H >600 H 488 H (70-110) mg/dL POC Glu Service Assistant ID Nadine, Tomas [facility], Tomas [facility], Tomas [address] Glu mg/dL mg/dL Hemoglobin A1c (<=6.0) % Calcium (8.4-10.2) mg/dL Phosphorus (2.5-4.5) mg/dL Total Bilirubin (0.2-1.3) mg/dL AST (17-59) U/L ALT (4-49) U/L Alkaline Phosphatase (38-126) U/L Total Protein (6.3-8.2) g/dL Albumin (3.5-5.0) g/dL Acetone, Qual (Negative) 04/21/23 04/21/23 04/21/23 Range/Units 20:43 21:57 22:47 WBC 9.3 (3.8-10.6) k/uL RBC 4.25 L (4.30-5.90) m/uL Hgb 12.6 L (13.0-17.5) gm/dL Hct 39.8 (39.0-53.0) % MCV 93.6 (80.0-100.0) fL MCH 29.6 (25.0-35.0) pg MCHC 31.6 (31.0-37.0) g/dL RDW 14.6 (11.5-15.5) % Plt Count 241 (150-450) k/uL MPV 7.9 Neutrophils % 80 % Lymphocytes % 10 % Monocytes % 5 % Eosinophils % 3 % Basophils % 1 % Neutrophils # 7.4 (1.3-7.7) k/uL Lymphocytes # 1.0 (1.0-4.8) k/uL Monocytes # 0.5 (0-1.0) k/uL Eosinophils # 0.3 (0-0.7) k/uL Basophils # 0.1 (0-0.2) k/uL Hypochromasia VBG pH (7.31-7.41) VBG pCO2 (37-51) mmHg VBG HCO3 (24-28) mmol/L Sodium (137-145) mmol/L Potassium (3.5-5.1) mmol/L Chloride (98-107) mmol/L Carbon Dioxide (22-30) mmol/L Anion Gap mmol/L BUN (9-20) mg/dL Creatinine (0.66-1.25) mg/dL Est GFR (CKD-EPI)AfAm (>60 ml/min/1.73 sqM) Est GFR (CKD-EPI)NonAf (>60 ml/min/1.73 sqM) Glucose (74-99) mg/dL POC Glucose (mg/dL) 536 H 444 H (70-110) mg/dL POC Glu Service Assistant Lilia Mcdonald Taylor [address] Glu mg/dL mg/dL Hemoglobin A1c (<=6.0) % Calcium (8.4-10.2) mg/dL Phosphorus (2.5-4.5) mg/dL Total Bilirubin (0.2-1.3) mg/dL AST (17-59) U/L ALT (4-49) U/L Alkaline Phosphatase (38-126) U/L Total Protein (6.3-8.2) g/dL Albumin (3.5-5.0) g/dL Acetone, Qual (Negative) 04/21/23 04/21/23 04/22/23 Range/Units 22:47 22:47 00:01 WBC (3.8-10.6) k/uL RBC (4.30-5.90) m/uL Hgb (13.0-17.5) gm/dL Hct (39.0-53.0) % MCV (80.0-100.0) fL MCH (25.0-35.0) pg MCHC (31.0-37.0) g/dL RDW (11.5-15.5) % Plt Count (150-450) k/uL MPV Neutrophils % % Lymphocytes % % Monocytes % % Eosinophils % % Basophils % % Neutrophils # (1.3-7.7) k/uL Lymphocytes # (1.0-4.8) k/uL Monocytes # (0-1.0) k/uL Eosinophils # (0-0.7) k/uL Basophils # (0-0.2) k/uL Hypochromasia VBG pH 7.40 (7.31-7.41) VBG pCO2 52 H (37-51) mmHg VBG HCO3 31 H (24-28) mmol/L Sodium 133 L (137-145) mmol/L Potassium 4.2 (3.5-5.1) mmol/L Chloride 96 L (98-107) mmol/L Carbon Dioxide 29 (22-30) mmol/L Anion Gap 8 mmol/L BUN 59 H (9-20) mg/dL Creatinine 1.29 H (0.66-1.25) mg/dL Est GFR (CKD-EPI)AfAm 64 (>60 ml/min/1.73 sqM) Est GFR (CKD-EPI)NonAf 55 (>60 ml/min/1.73 sqM) Glucose 253 H (74-99) mg/dL POC Glucose (mg/dL) 197 H (70-110) mg/dL POC Glu Service Assistant Justin Bass [address] Glu mg/dL mg/dL Hemoglobin A1c (<=6.0) % Calcium (8.4-10.2) mg/dL Phosphorus 3.7 (2.5-4.5) mg/dL Total Bilirubin (0.2-1.3) mg/dL AST (17-59) U/L ALT (4-49) U/L Alkaline Phosphatase (38-126) U/L Total Protein (6.3-8.2) g/dL Albumin (3.5-5.0) g/dL Acetone, Qual Negative (Negative) 04/22/23 04/22/23 04/22/23 Range/Units 00:10 02:05 03:49 WBC (3.8-10.6) k/uL RBC (4.30-5.90) m/uL Hgb (13.0-17.5) gm/dL Hct (39.0-53.0) % MCV (80.0-100.0) fL MCH (25.0-35.0) pg MCHC (31.0-37.0) g/dL RDW (11.5-15.5) % Plt Count (150-450) k/uL MPV Neutrophils % % Lymphocytes % % Monocytes % % Eosinophils % % Basophils % % Neutrophils # (1.3-7.7) k/uL Lymphocytes # (1.0-4.8) k/uL Monocytes # (0-1.0) k/uL Eosinophils # (0-0.7) k/uL Basophils # (0-0.2) k/uL Hypochromasia VBG pH (7.31-7.41) VBG pCO2 (37-51) mmHg VBG HCO3 (24-28) mmol/L Sodium 134 L (137-145) mmol/L Potassium 3.9 (3.5-5.1) mmol/L Chloride 97 L (98-107) mmol/L Carbon Dioxide 29 (22-30) mmol/L Anion Gap 8 mmol/L BUN 57 H (9-20) mg/dL Creatinine 1.24 (0.66-1.25) mg/dL Est GFR (CKD-EPI)AfAm 67 (>60 ml/min/1.73 sqM) Est GFR (CKD-EPI)NonAf 58 (>60 ml/min/1.73 sqM) Glucose 163 H (74-99) mg/dL POC Glucose (mg/dL) 158 H (70-110) mg/dL POC Glu Service Assistant ID Justin Aviles [address] Glu mg/dL 192 mg/dL Hemoglobin A1c 8.3 H (<=6.0) % Calcium (8.4-10.2) mg/dL Phosphorus (2.5-4.5) mg/dL Total Bilirubin (0.2-1.3) mg/dL AST (17-59) U/L ALT (4-49) U/L Alkaline Phosphatase (38-126) U/L Total Protein (6.3-8.2) g/dL Albumin (3.5-5.0) g/dL Acetone, Qual (Negative) 04/22/23 Range/Units 03:49 WBC (3.8-10.6) k/uL RBC (4.30-5.90) m/uL Hgb (13.0-17.5) gm/dL Hct (39.0-53.0) % MCV (80.0-100.0) fL MCH (25.0-35.0) pg MCHC (31.0-37.0) g/dL RDW (11.5-15.5) % Plt Count (150-450) k/uL MPV Neutrophils % % Lymphocytes % % Monocytes % % Eosinophils % % Basophils % % Neutrophils # (1.3-7.7) k/uL Lymphocytes # (1.0-4.8) k/uL Monocytes # (0-1.0) k/uL Eosinophils # (0-0.7) k/uL Basophils # (0-0.2) k/uL Hypochromasia VBG pH (7.31-7.41) VBG pCO2 (37-51) mmHg VBG HCO3 (24-28) mmol/L Sodium 135 L (137-145) mmol/L Potassium 4.8 (3.5-5.1) mmol/L Chloride 99 (98-107) mmol/L Carbon Dioxide 29 (22-30) mmol/L Anion Gap 7 mmol/L BUN 55 H (9-20) mg/dL Creatinine 1.24 (0.66-1.25) mg/dL Est GFR (CKD-EPI)AfAm 67 (>60 ml/min/1.73 sqM) Est GFR (CKD-EPI)NonAf 58 (>60 ml/min/1.73 sqM) Glucose 90 (74-99) mg/dL POC Glucose (mg/dL) (70-110) mg/dL POC Glu Service Assistant ID Estimated Ave Glu mg/dL mg/dL Hemoglobin A1c (<=6.0) % Calcium (8.4-10.2) mg/dL Phosphorus 4.2 (2.5-4.5) mg/dL Total Bilirubin (0.2-1.3) mg/dL AST (17-59) U/L ALT (4-49) U/L Alkaline Phosphatase (38-126) U/L Total Protein (6.3-8.2) g/dL Albumin (3.5-5.0) g/dL Acetone, Qual (Negative) Disposition Clinical Impression: Fracture of greater trochanter of right femur Disposition: ADMITTED IP TO THIS [facility] Condition: Good Is patient prescribed a controlled substance at d/c from ED?: No
[2023-04-20 19:17] LABS: Basophils # (A) 0.1 k/uL (0-0.2); Basophils % (A) 1 %; Eosinophils # (A) 0.1 k/uL (0-0.7); Eosinophils % (A) 1 %; HCT 37.9 % (39.0-53.0); HGB 11.8 gm/dL (13.0-17.5); Hypochromasia Slight; Lymphocytes # (A) 0.7 k/uL (1.0-4.8); Lymphocytes % (A) 6 %; MCH 29.6 pg (25.0-35.0); MCHC 31.1 g/dL (31.0-37.0); Mean Platelet Volume 8.6; Monocytes # (A) 0.7 k/uL (0-1.0); Monocytes % (A) 6 %; Neutrophils # (A) 9.9 k/uL (1.3-7.7); Neutrophils % (A) 85 %; Platelet Count 233 k/uL (150-450); RBC 3.99 m/uL (4.30-5.90); RDW 14.6 % (11.5-15.5); WBC 11.6 k/uL (3.8-10.6)
[2023-04-20] MEDS ORDERED: NALOXONE 0.4 MG/ML 1 ML VIAL IV PRN (19:41)
[2023-04-20 19:45] LABS: ALT 30 U/L (4-49); AST 24 U/L (17-59); African American GFR (CKD) 53 (>60 ml/min/1.73 sqM); Albumin 3.4 g/dL (3.5-5.0); Alkaline Phosphatase 145 U/L (38-126); Anion Gap 15 mmol/L; Blood Urea Nitrogen 56 mg/dL (9-20); Calcium 8.7 mg/dL (8.4-10.2); Carbon Dioxide 23 mmol/L (22-30); Chloride 93 mmol/L (98-107); Glucose 396 mg/dL (74-99); Non-African American GFR(CKD) 46 (>60 ml/min/1.73 sqM); Potassium 4.7 mmol/L (3.5-5.1); Sodium 131 mmol/L (137-145); Total Bilirubin 0.8 mg/dL (0.2-1.3); Total Protein 6.7 g/dL (6.3-8.2)
[2023-04-20] MEDS ORDERED: DEXTROSE 50% SYRINGE 50 ML IVP PRN ×2 (20:01)
[2023-04-20] MEDS ORDERED: INSULIN REGULAR 100 UNIT/ML VIAL (IV) SQ STA (20:02)
[2023-04-20 20:17] LABS: Glucose,Whole Blood >600 mg/dL (70-110)
[2023-04-20 21:46] LABS: Glucose,Whole Blood 352 mg/dL (70-110)
[2023-04-20] MEDS: INSULIN ASPART (NovoLOG) 100 UNIT/ML VIAL SQ SCH (21:52)
[2023-04-20 22:54] LABS: Glucose,Whole Blood 428 mg/dL (70-110)
[2023-04-20 23:50] LABS: Glucose,Whole Blood 324 mg/dL (70-110)
[2023-04-21] MEDS: MORPHINE SULFATE 4 MG/ML SYRINGE IV PRN ×2 (01:43→15:39)
[2023-04-21 06:12] LABS: Glucose,Whole Blood 582 mg/dL (70-110)
[2023-04-21] MEDS: INSULIN ASPART (NovoLOG) 100 UNIT/ML VIAL SQ SCH ×6 (06:37→21:12)
[2023-04-21] MEDS ORDERED: DEXTROSE 50% SYRINGE 50 ML IVP PRN ×5 (11:12→22:25)
[2023-04-21 11:58] LABS: Glucose,Whole Blood 468 mg/dL (70-110)
--- NOTE | 2023-04-21 13:32 | P.CNOR ---
History of Present Illness - [facility] Consult date: 04/21/23 History of present illness: This patient is a 72- year old male who presented to [facility] emergency department last evening due to multiple falls. Patient was recently admitted last weekend for hypoglycemia and a minimally displaced right greater trochanter fracture. CT showed no evidence of intertrochanteric extension. Patient was evaluated by Dr. Barnett and instructed to weight bear to tolerance on right lower extremity with a walker. Patient was discharged home with home health under the care of his sister, who is his guardian. Apparently patient has sustained multiple falls at home. He again presented to [facility] on 04/18/23, CT scan of the right hip was obtained and showed no significant displacement of the right greater trochanter fracture or intertrochanteric extension. He was again discharged home. Patient presented to the ED yesterday with concerns of being unable to care for himself. Patient was admitted under the care of internal medicine for rehab placement with a consult placed to orthopedics. Patient is examined bedside this morning. He is complaining of increased pain in the right hip, as well as left shoulder pain. He is confused and unsure when his last fall was. He is unsure if he fell after the CT was obtained of his right hip was obtained on 04/18. He states his left shoulder is the most painful right now. No additional complaints at this time. Past Medical History Past Medical History: Coronary Artery Disease (CAD), Diabetes Mellitus, GERD/Reflux, Hyperlipidemia, Hypertension, Myocardial Infarction ([place]), Thyroid Disorder Additional Past Medical History / Comment(s): neuropathy Last Myocardial Infarction Date:: unknown History of Any Multi-Drug Resistant Organisms: None Reported Past Surgical History: Appendectomy, Coronary Bypass/CABG, Heart Catheterization With Stent Additional Past Surgical History / Comment(s): Sister relays, "He had peripheral artery surgery too." Past Anesthesia/Blood Transfusion Reactions: No Reported Reaction Date of Last Stent Placement:: unknown Past Psychological History: Depression Smoking Status: Former smoker Past Alcohol Use History: Daily Past Drug Use History: Marijuana - Past Family History Father Family Medical History: Congestive Heart Failure (CHF) Mother Additional Family Medical History / Comment(s): of old age. Medications and Allergies Home Medications Medication Instructions Recorded Confirmed Type Aspirin [[place] Aspirin EC] 81 mg PO DAILY 03/13/19 04/20/23 History Ferrous Sulfate [Iron (65 MG 325 mg PO DAILY 03/13/19 04/20/23 History Elemental)] Gabapentin [Neurontin] 300 mg PO TID 03/13/19 04/20/23 History Isosorbide Mononitrate ER [Imdur] 30 mg PO DAILY 03/13/19 04/20/23 History Levothyroxine Sodium [Synthroid] 137 mcg PO DAILY 03/13/19 04/20/23 History Metoprolol Tartrate [Lopressor] 25 mg PO DAILY 03/13/19 04/20/23 History Pantoprazole Sodium [Protonix] 40 mg PO DAILY 03/13/19 04/20/23 History Insulin Aspart [NovoLOG Flexpen] See Protocol SQ AC-TID 03/30/21 04/20/23 History Insulin Glargine,Hum.rec.anlog 20 unit SQ DAILY 03/30/21 04/20/23 History [Lantus Solostar Pen] Ammonium Lactate Cream [Lac-Hydrin 1 applic TOPICAL BID PRN 04/13/23 04/20/23 History 12% Cream] Atorvastatin [Lipitor] 80 mg PO DAILY 04/13/23 04/20/23 History Empagliflozin [Jardiance] 25 mg PO DAILY 04/13/23 04/20/23 History Escitalopram [Lexapro] 10 mg PO DAILY 04/13/23 04/20/23 History Glucagon Emergency Kit 1 mg IM ONCE PRN 04/13/23 04/20/23 History Solifenacin Succinate [Vesicare] 5 mg PO DAILY 04/13/23 04/20/23 History metFORMIN HCL ER [Glucophage XR] 1,000 mg PO W/SUPPER 04/13/23 04/20/23 History Lisinopril-Hctz 10-12.5 mg 1 tab PO BID 04/18/23 04/20/23 History [Zestoretic 10-12.5] Allergies Allergy/AdvReac Type Severity Reaction Status Date / Time No Known Allergies Allergy Verified 04/20/23 20:56 Physical Examination On examination, the patient is sitting up in bed in no apparent distress. He is alert and answers questions appropriately, although confused. His head appears normocephalic and atraumatic. His breathing appears non-labored. On inspection of his right upper extremity, no obvious deformities or signs of trauma. On inspection of the left upper extremity, small superficial skin tears at the forearm and hand. There is diffuse pain with palpation of the shoulder. C-spine nontender. Elbow, forearm, wrist, hand nontender. Pain at any attempts at PROM of the left shoulder. Motor and sensory function is intact of the left upper extremity. Left upper extremity warm and well perfused. On inspection of the right hip, no swelling, ecchymosis, signs of trauma. No open wounds. There is diffuse pain on palpation of the lateral hip. Pain with attempts at log rolling and PROM of the right hip. No pain with palpation of the distal thigh, knee, lower leg, ankle, foot. Motor and sensory function intact right lower extremity. Right lower extremity warm and well perfused. No pain with PROM of the left hip. Results CT scan of the right hip obtained on 04/18/23 reviewed. Minimally displaced right greater trochanter fracture, no obvious intertrochanteric extension. CT scan of the right hip obtained 04/13/23 again reviewed. Right femur, Right tibia/fibula x-rays obtained 04/18/23 also reviewed. - Labs Labs: Abnormal Lab Results - Last 24 Hours (Table) 04/20/23 04/20/23 04/20/23 Range/Units 18:42 19:01 19:01 WBC 11.6 H (3.8-10.6) k/uL RBC 3.99 L (4.30-5.90) m/uL Hgb 11.8 L (13.0-17.5) gm/dL Hct 37.9 L (39.0-53.0) % Neutrophils # 9.9 H (1.3-7.7) k/uL Lymphocytes # 0.7 L (1.0-4.8) k/uL Sodium 131 L (137-145) mmol/L Chloride 93 L (98-107) mmol/L BUN 56 H (9-20) mg/dL Creatinine 1.51 H (0.66-1.25) mg/dL Glucose 396 H (74-99) mg/dL POC Glucose (mg/dL) 410 H (70-110) mg/dL Hemoglobin A1c (<=6.0) % Alkaline Phosphatase 145 H (38-126) U/L Albumin 3.4 L (3.5-5.0) g/dL 04/20/23 04/20/23 04/20/23 Range/Units 19:01 20:13 21:44 WBC (3.8-10.6) k/uL RBC (4.30-5.90) m/uL Hgb (13.0-17.5) gm/dL Hct (39.0-53.0) % Neutrophils # (1.3-7.7) k/uL Lymphocytes # (1.0-4.8) k/uL Sodium (137-145) mmol/L Chloride (98-107) mmol/L BUN (9-20) mg/dL Creatinine (0.66-1.25) mg/dL Glucose (74-99) mg/dL POC Glucose (mg/dL) >600 H 352 H (70-110) mg/dL Hemoglobin A1c 8.1 H (<=6.0) % Alkaline Phosphatase (38-126) U/L Albumin (3.5-5.0) g/dL 04/20/23 04/20/23 04/21/23 Range/Units 22:53 23:46 06:10 WBC (3.8-10.6) k/uL RBC (4.30-5.90) m/uL Hgb (13.0-17.5) gm/dL Hct (39.0-53.0) % Neutrophils # (1.3-7.7) k/uL Lymphocytes # (1.0-4.8) k/uL Sodium (137-145) mmol/L Chloride (98-107) mmol/L BUN (9-20) mg/dL Creatinine (0.66-1.25) mg/dL Glucose (74-99) mg/dL POC Glucose (mg/dL) 428 H 324 H 582 H (70-110) mg/dL Hemoglobin A1c (<=6.0) % Alkaline Phosphatase (38-126) U/L Albumin (3.5-5.0) g/dL 04/21/23 Range/Units 11:53 WBC (3.8-10.6) k/uL RBC (4.30-5.90) m/uL Hgb (13.0-17.5) gm/dL Hct (39.0-53.0) % Neutrophils # (1.3-7.7) k/uL Lymphocytes # (1.0-4.8) k/uL Sodium (137-145) mmol/L Chloride (98-107) mmol/L BUN (9-20) mg/dL Creatinine (0.66-1.25) mg/dL Glucose (74-99) mg/dL POC Glucose (mg/dL) 468 H (70-110) mg/dL Hemoglobin A1c (<=6.0) % Alkaline Phosphatase (38-126) U/L Albumin (3.5-5.0) g/dL H & H 04/20/23 Range/Units 19:01 Hgb 11.8 L (13.0-17.5) gm/dL Hct 37.9 L (39.0-53.0) % Result Diagrams: 04/20/23 19:01 04/20/23 19:01 Assessment and Plan Assessment: Right minimally displaced greater trochanter fracture without CT evidence of intertrochanteric extension Left shoulder pain Multiple falls Plan: - The patient and his imaging were reviewed with Dr. Giron. Patient is unsure of when he last fell. We will obtain new x-rays of the right hip and pelvis today for further evaluation of patient's increased right hip pain. If there is no concern for intertrochanteric extension, patient may weight bear to tolerance on right lower extremity with a walker. No active abduction of right hip. - We will also obtain x-rays of the left shoulder. - Recommend evaluation by physical therapy pending x-rays. - Patient would most likely benefit from discharge to subacute rehab. - We will follow patient as he remains inpatient and make recommendations as needed. Further recommendations following x-rays.
--- NOTE | 2023-04-21 14:38 | XR ---
EXAMINATION TYPE: XR shoulder complete 3 views LT DATE OF EXAM: 04/21/2023 Comparison: None Clinical History: 72-year-old male pain Findings: There is slight narrowing of the subacromial space and bony irregularity of the greater tuberosity. M edian sternotomy wires and post-CABG clips. No acute fracture, subluxation, dislocation seen. Moderat e degenerative joint space narrowing at the AC joint. Impression: 1. One of the images shows slight narrowing of the subacromial space with bony irregularity at the gr eater tuberosity. If concern for underlying rotator cuff tear, MRI can be performed. 2. Mild degenerative change at the AC joint. 3. No acute osseous abnormality seen.
--- NOTE | 2023-04-21 14:40 | P.HPIM ---
History of Present Illness H&P Date: 04/21/23 history of present illness;. Patient is a 72-year-old gentleman with past medical history significant for hypothyroidism, hypertension, diabetes mellitus who presented to the ER because of inability to walk. Patient was recently admitted to the hospital after having a fall.patient had a fall on the at which time he was monitored ,CT of the hip showed a right greater trochanteric minimally displaced fracture with no intertrochanteric extension. Evaluated by orthopedics who recommended nonsurgical treatment weight bear as tolerated. patient at home unable to bear any weight on his right leg and unable to take care of himself. Patient was admitted to medicine service REVIEW OF SYSTEMS: CONSTITUTIONAL: No fever, no malaise, no fatigue. HEENT: No recent visual problems or hearing problems. Denied any sore throat. CARDIOVASCULAR: No chest pain, orthopnea, PND, no palpitations, no syncope. PULMONARY: No shortness of breath, no cough, no hemoptysis. GASTROINTESTINAL: No diarrhea, no nausea, no vomiting, no abdominal pain. NEUROLOGICAL: No headaches, no weakness, no numbness. HEMATOLOGICAL: Denies any bleeding or petechiae. GENITOURINARY: Denies any burning micturition, frequency, or urgency. MUSCULOSKELETAL/RHEUMATOLOGICAL: Right hip pain ENDOCRINE: Denies any polyuria or polydipsia. The rest of the 14-point review of systems is negative. PHYSICAL EXAMINATION: GENERAL: The patient is alert and oriented x3, not in any acute distress. Well developed, well nourished. HEENT: Pupils are round and equally reacting to light. EOMI. No scleral icterus. No conjunctival pallor. Normocephalic, atraumatic. No pharyngeal erythema. No thyromegaly. CARDIOVASCULAR: S1 and S2 present. No murmurs, rubs, or gallops. PULMONARY: Chest is clear to auscultation, no wheezing or crackles. ABDOMEN: Soft, nontender, nondistended, normoactive bowel sounds. No palpable organomegaly. MUSCULOSKELETAL: No joint swelling or deformity. EXTREMITIES: No cyanosis, clubbing, or pedal edema. NEUROLOGICAL: Gross neurological examination did not reveal any focal deficits. SKIN: No rashes. Assessment and plan Acute minimally displaced comminuted fracture of the right greater trochanter secondary to fall. Inability to take care of himself -Recurrent falls Continue pain regimen Consult orthopedics PT and OT evaluation -Diabetes mellitus type 2, chronically on insulin. Uncontrolled with hyperglycemia and hypoglycemia. Monitor blood sugar levels Resume Levemir 15 units twice a day Resume NovoLog 4 units with meals Continue sliding scale -Coronary artery disease and history of stent, bypass Aspirin, Lopressor -GERD Protonix -Hyperlipidemia Lipitor 80 -Essential hypertension, Lopressor 25 mg twice a day, -Hypothyroid Synthroid. -Peripheral neuropathy Continue Neurontin 300 mg bid Past Medical History Past Medical History: Coronary Artery Disease (CAD), Diabetes Mellitus, GERD/Reflux, Hyperlipidemia, Hypertension, Myocardial Infarction ([place]), Thyroid Disorder Additional Past Medical History / Comment(s): neuropathy Last Myocardial Infarction Date:: unknown History of Any Multi-Drug Resistant Organisms: None Reported Past Surgical History: Appendectomy, Coronary Bypass/CABG, Heart Catheterization With Stent Additional Past Surgical History / Comment(s): Sister relays, "He had peripheral artery surgery too." Past Anesthesia/Blood Transfusion Reactions: No Reported Reaction Date of Last Stent Placement:: unknown Past Psychological History: Depression Smoking Status: Former smoker Past Alcohol Use History: Daily Past Drug Use History: Marijuana - Past Family History Father Family Medical History: Congestive Heart Failure (CHF) Mother Additional Family Medical History / Comment(s): of old age. Medications and Allergies Home Medications Medication Instructions Recorded Confirmed Type Aspirin [[place] Aspirin EC] 81 mg PO DAILY 03/13/19 04/20/23 History Ferrous Sulfate [Iron (65 MG 325 mg PO DAILY 03/13/19 04/20/23 History Elemental)] Gabapentin [Neurontin] 300 mg PO TID 03/13/19 04/20/23 History Isosorbide Mononitrate ER [Imdur] 30 mg PO DAILY 03/13/19 04/20/23 History Levothyroxine Sodium [Synthroid] 137 mcg PO DAILY 03/13/19 04/20/23 History Metoprolol Tartrate [Lopressor] 25 mg PO DAILY 03/13/19 04/20/23 History Pantoprazole Sodium [Protonix] 40 mg PO DAILY 03/13/19 04/20/23 History Insulin Aspart [NovoLOG Flexpen] See Protocol SQ AC-TID 03/30/21 04/20/23 History Insulin Glargine,Hum.rec.anlog 20 unit SQ DAILY 03/30/21 04/20/23 History [Lantus Solostar Pen] Ammonium Lactate Cream [Lac-Hydrin 1 applic TOPICAL BID PRN 04/13/23 04/20/23 History 12% Cream] Atorvastatin [Lipitor] 80 mg PO DAILY 04/13/23 04/20/23 History Empagliflozin [Jardiance] 25 mg PO DAILY 04/13/23 04/20/23 History Escitalopram [Lexapro] 10 mg PO DAILY 04/13/23 04/20/23 History Glucagon Emergency Kit 1 mg IM ONCE PRN 04/13/23 04/20/23 History Solifenacin Succinate [Vesicare] 5 mg PO DAILY 04/13/23 04/20/23 History metFORMIN HCL ER [Glucophage XR] 1,000 mg PO W/SUPPER 04/13/23 04/20/23 History Lisinopril-Hctz 10-12.5 mg 1 tab PO BID 04/18/23 04/20/23 History [Zestoretic 10-12.5] Allergies Allergy/AdvReac Type Severity Reaction Status Date / Time No Known Allergies Allergy Verified 04/20/23 20:56 Physical Exam Vitals: Vital Signs Temp Pulse Pulse Pulse Resp BP BP 04/21/23 07:53 98.2 F 90 19 100/75 04/21/23 02:18 99.1 F 70 04/20/23 23:33 99.9 F H 73 18 04/20/23 23:00 72 18 106/57 04/20/23 20:21 77 18 102/52 04/20/23 18:59 80 18 131/86 04/20/23 17:03 98.0 F 78 18 125/55 BP Pulse Ox 04/21/23 07:53 95 04/21/23 02:18 110/65 90 L 04/20/23 23:33 153/54 92 L 04/20/23 23:00 94 L 04/20/23 20:21 93 L 04/20/23 18:59 99 04/20/23 17:03 93 L Intake and Output 04/20/23 04/21/23 04/21/23 22:59 06:59 14:59 Output Total 485 Balance -485 Output: Urine 485 Other: # Voids 2 Weight 97.976 kg Results CBC & Chem 7: 04/20/23 19:01 04/20/23 19:01 Labs: Abnormal Lab Results - Last 24 Hours (Table) 04/20/23 04/20/23 04/20/23 Range/Units 18:42 19:01 19:01 WBC 11.6 H (3.8-10.6) k/uL RBC 3.99 L (4.30-5.90) m/uL Hgb 11.8 L (13.0-17.5) gm/dL Hct 37.9 L (39.0-53.0) % Neutrophils # 9.9 H (1.3-7.7) k/uL Lymphocytes # 0.7 L (1.0-4.8) k/uL Sodium 131 L (137-145) mmol/L Chloride 93 L (98-107) mmol/L BUN 56 H (9-20) mg/dL Creatinine 1.51 H (0.66-1.25) mg/dL Glucose 396 H (74-99) mg/dL POC Glucose (mg/dL) 410 H (70-110) mg/dL Hemoglobin A1c (<=6.0) % Alkaline Phosphatase 145 H (38-126) U/L Albumin 3.4 L (3.5-5.0) g/dL 04/20/23 04/20/23 04/20/23 Range/Units 19:01 20:13 21:44 WBC (3.8-10.6) k/uL RBC (4.30-5.90) m/uL Hgb (13.0-17.5) gm/dL Hct (39.0-53.0) % Neutrophils # (1.3-7.7) k/uL Lymphocytes # (1.0-4.8) k/uL Sodium (137-145) mmol/L Chloride (98-107) mmol/L BUN (9-20) mg/dL Creatinine (0.66-1.25) mg/dL Glucose (74-99) mg/dL POC Glucose (mg/dL) >600 H 352 H (70-110) mg/dL Hemoglobin A1c 8.1 H (<=6.0) % Alkaline Phosphatase (38-126) U/L Albumin (3.5-5.0) g/dL 04/20/23 04/20/23 04/21/23 Range/Units 22:53 23:46 06:10 WBC (3.8-10.6) k/uL RBC (4.30-5.90) m/uL Hgb (13.0-17.5) gm/dL Hct (39.0-53.0) % Neutrophils # (1.3-7.7) k/uL Lymphocytes # (1.0-4.8) k/uL Sodium (137-145) mmol/L Chloride (98-107) mmol/L BUN (9-20) mg/dL Creatinine (0.66-1.25) mg/dL Glucose (74-99) mg/dL POC Glucose (mg/dL) 428 H 324 H 582 H (70-110) mg/dL Hemoglobin A1c (<=6.0) % Alkaline Phosphatase (38-126) U/L Albumin (3.5-5.0) g/dL
--- NOTE | 2023-04-21 14:41 | XR ---
EXAMINATION TYPE: XR Hip RT and AP Pelvis DATE OF EXAM: 04/21/2023 COMPARISON: NONE HISTORY: Pain TECHNIQUE: A single AP view of the pelvis is obtained. Two views of the right hip are obtained. FINDINGS: There is fracture of the greater trochanter with mild displacement. Surgical clips overlyi ng the obturator canal.. The hip and sacroiliac joints appear symmetric and unremarkable. The overl isabella soft tissue appears unremarkable. Extensive vascular calcifications. Hypertrophic changes of the lower lumbar spine. IMPRESSION: There is a mildly displaced greater trochanteric fracture of the right femur.
[2023-04-21] MEDS: GABAPENTIN 300 MG CAP PO SCH ×2 (16:17→21:12)
[2023-04-21 16:57] LABS: Glucose,Whole Blood >600 mg/dL (70-110)
[2023-04-21 17:02] LABS: Glucose,Whole Blood 488 mg/dL (70-110)
[2023-04-21] MEDS: metFORMIN 500 MG TAB PO SCH (17:38)
[2023-04-21 20:45] LABS: Glucose,Whole Blood 536 mg/dL (70-110)
[2023-04-21] MEDS: INSULIN DETEMIR (LEVEMIR) 100 UNIT/ML SYR SQ SCH (21:12)
[2023-04-21] MEDS: ACETAMINOPHEN TAB 325 MG TAB PO PRN (21:12)
[2023-04-21 21:59] LABS: Glucose,Whole Blood 444 mg/dL (70-110)
[2023-04-21] MEDS ORDERED: Potassium Replacement Protocol 1 EACH MISC MISCELLANE PRN (22:25)
[2023-04-21] MEDS ORDERED: Magnesium Replacement Protocol 1 EACH MISC MISCELLANE PRN (22:25)
[2023-04-21] MEDS ORDERED: INSULIN REGULAR BOLUS (FROM DRIP BAG) IV ONE (22:25)
[2023-04-21] MEDS ORDERED: INSULIN REGULAR 100 UNIT in SODIUM CHLORIDE 0.9% 100 ML IV SCH (22:30)
[2023-04-21 23:08] LABS: Basophils # (A) 0.1 k/uL (0-0.2); Basophils % (A) 1 %; Eosinophils # (A) 0.3 k/uL (0-0.7); Eosinophils % (A) 3 %; HCT 39.8 % (39.0-53.0); HGB 12.6 gm/dL (13.0-17.5); Lymphocytes % (A) 10 %; MCH 29.6 pg (25.0-35.0); MCHC 31.6 g/dL (31.0-37.0); MCV 93.6 fL (80.0-100.0); Mean Platelet Volume 7.9; Monocytes # (A) 0.5 k/uL (0-1.0); Monocytes % (A) 5 %; Neutrophils # (A) 7.4 k/uL (1.3-7.7); Neutrophils % (A) 80 %; Platelet Count 241 k/uL (150-450); RBC 4.25 m/uL (4.30-5.90); RDW 14.6 % (11.5-15.5); WBC 9.3 k/uL (3.8-10.6)
[2023-04-21 23:10] LABS: VBG PH 7.4 (7.31-7.41)
[2023-04-21 23:19] LABS: African American GFR (CKD) 64 (>60 ml/min/1.73 sqM); Anion Gap 8 mmol/L; Blood Urea Nitrogen 59 mg/dL (9-20); Carbon Dioxide 29 mmol/L (22-30); Chloride 96 mmol/L (98-107); Glucose 253 mg/dL (74-99); Non-African American GFR(CKD) 55 (>60 ml/min/1.73 sqM); Phosphorus 3.7 mg/dL (2.5-4.5); Potassium 4.2 mmol/L (3.5-5.1); Sodium 133 mmol/L (137-145)
[2023-04-22] MEDS: MORPHINE SULFATE 4 MG/ML SYRINGE IV PRN ×3 (00:27→12:47)
[2023-04-22 01:08] LABS: African American GFR (CKD) 67 (>60 ml/min/1.73 sqM); Anion Gap 8 mmol/L; Blood Urea Nitrogen 57 mg/dL (9-20); Carbon Dioxide 29 mmol/L (22-30); Chloride 97 mmol/L (98-107); Glucose 163 mg/dL (74-99); Non-African American GFR(CKD) 58 (>60 ml/min/1.73 sqM); Potassium 3.9 mmol/L (3.5-5.1); Sodium 134 mmol/L (137-145)
[2023-04-22] MEDS: SODIUM CHLORIDE 0.9% 1,000 ML IV SCH ×9 (03:32→22:17)
[2023-04-22 04:36] LABS: African American GFR (CKD) 67 (>60 ml/min/1.73 sqM); Anion Gap 7 mmol/L; Blood Urea Nitrogen 55 mg/dL (9-20); Carbon Dioxide 29 mmol/L (22-30); Chloride 99 mmol/L (98-107); Glucose 90 mg/dL (74-99); Non-African American GFR(CKD) 58 (>60 ml/min/1.73 sqM); Phosphorus 4.2 mg/dL (2.5-4.5); Potassium 4.8 mmol/L (3.5-5.1); Sodium 135 mmol/L (137-145)
[2023-04-22 06:07] LABS: Glucose,Whole Blood 197 mg/dL (70-110)
[2023-04-22 06:07] LABS: Glucose,Whole Blood 158 mg/dL (70-110)
[2023-04-22 06:20] LABS: Glucose,Whole Blood 474 mg/dL (70-110)
[2023-04-22] MEDS: metFORMIN 500 MG TAB PO SCH ×2 (06:32→18:32)
[2023-04-22] MEDS: INSULIN ASPART (NovoLOG) 100 UNIT/ML VIAL SQ SCH ×7 (06:41→21:31)
[2023-04-22] MEDS: INSULIN DETEMIR (LEVEMIR) 100 UNIT/ML SYR SQ SCH ×2 (06:41→21:31)
[2023-04-22 08:38] LABS: African American GFR (CKD) 84 (>60 ml/min/1.73 sqM); Anion Gap 3 mmol/L; Blood Urea Nitrogen 50 mg/dL (9-20); Calcium 8.5 mg/dL (8.4-10.2); Carbon Dioxide 30 mmol/L (22-30); Chloride 103 mmol/L (98-107); Glucose 70 mg/dL (74-99); Non-African American GFR(CKD) 73 (>60 ml/min/1.73 sqM); Potassium 3.7 mmol/L (3.5-5.1); Sodium 136 mmol/L (137-145)
[2023-04-22] MEDS: PANTOPRAZOLE 40 MG TABLET PO SCH (08:46)
[2023-04-22] MEDS: ASPIRIN 81 MG PO SCH (08:46)
[2023-04-22] MEDS: GABAPENTIN 300 MG CAP PO SCH ×3 (08:46→21:31)
[2023-04-22] MEDS: ESCITALOPRAM 10 MG TAB PO SCH (08:46)
[2023-04-22] MEDS: ATORVASTATIN 80 MG TAB PO SCH (08:46)
[2023-04-22] MEDS: ISOSORBIDE MONONITRATE ER 30 MG TAB.ER.24H PO SCH (08:46)
[2023-04-22] MEDS: FERROUS SULFATE 325 MG TAB PO SCH (08:46)
[2023-04-22] MEDS: METOPROLOL TARTRATE 25 MG TAB PO SCH (08:46)
[2023-04-22] MEDS: LEVOTHYROXINE 137 MCG TAB PO SCH (08:55)
--- NOTE | 2023-04-22 10:09 | P.PN ---
Progress Note - Text Progress Note Date: 04/22/23 Orthopedics: History of present illness: Patient is a very pleasant 72-year-old male who is seen at bedside for follow-up evaluation of his right hip and left shoulder. He is known to have a right greater trochanter fracture. He has sustained mult iple falls. He states he does continue to have some pain at his right hip. He was able to transfer from bed to a bedside chair with the assistance of therapy and a walker this morning. He was able to weight-bear on his right lower extremity. His right hip pain is better controlled at rest. He does have some increased pain with hip flexion and active range of motion of the right hip. Regards to his left shoulder, he does continue to have some pain with active range of motion. He is difficulty with flexion and abduction. He was able to use a walker with his arms without significant difficulty to his left shoulder. X-ray imaging was performed yesterday in regards to his right hip and left shoulder. X-ray imaging of the right hip redemonstrated the known greater trochanter fracture without change. We did not see evidence of intratrochanteric fracture or femoral neck fracture. He is undergone multiple imaging modalities for his right hip. Imaging of the left shoulder did not show evidence of fracture or dislocation at the left shoulder. Patient is unable to go MRI imaging. Patient was transferred to [facility] care last night after significantly elevated glucose level at 474. Patient continues to be seen and examined by medicine. They're planning for discharge to a rehabilitation facility when the patient is stable. Physical Exam: Patient is awake, alert, and oriented 3 Vital signs stable Adequate chest excursion with deep inspiration and expiration Patient was able to transfer to a bedside chair with the assistance of a walker while weightbearing on the right lower extremity Pain with right hip flexion Pain with internal and external rotation of the right hip No significant pain with palpation over the right hip No signs or symptoms of DVT; no calf pain; right calf is soft nontender No significant pain with palpation over the left shoulder No significant pain with palpation over the acromioclavicular joint on the left Limited range of motion with left shoulder flexion and abduction Increased left shoulder pain with active range of motion of the left shoulder No swelling, erythema, bruising, or obvious sign of infection at the left shoulder Pertinent studies: X-rays of the right hip and pelvis taken on 04/21/2023: Mildly displaced fracture of the right greater trochanter; hip joint spacing and [place] joint spacing appears to be adequately maintained X-rays of the left shoulder taken on 04/21/2023: No evidence of fracture or dislocation at the left shoulder; mild degenerative change at the acromioclavicular joint; slight narrowing of the subacromial space with with bony irregularity at the greater tuberosity Sternal wires and post CABG clips Assessment: History of multiple falls Right hip pain Mildly displaced fracture of the right greater trochanter Left shoulder pain Left shoulder weakness Left acromioclavicular degenerative change Left shoulder subacromial space narrowing with greater tuberosity bony irregularity Elevated glucose at 474, transfered to [facility] care Coronary artery disease History of CABG Hypertension Hyperlipidemia Diabetes mellitus History of myocardial infarction Thyroid disorder Plan: 1. Imaging has been reviewed in regards to the patient's right hip and left shoulder. He has had multiple imaging modalities for his right hip which all have been reviewed. Review of imaging shows evidence of a mildly displaced fracture of the right greater trochanter. We do not see evidence of intertrochanteric fracture or femoral neck fracture. Patient may continue to weight-bear as tolerated on the right lower extremity with the assistance of a walker. He was able to ambulate on his right lower extremity today while I was at the bedside and transferred to a bedside chair. We did discuss without planning for surgical intervention currently at his right hip would recommend continued conservative treatment. He'll plan to follow up with Dr. Barnett at [facility] for further evaluation in approximately 7-10 days following discharge. 2. Patient does continue to have some pain with some weakness in his left shoulder. He does not have significant pain with palpation over his left shoulder or left acromioclavicular joint. X-ray imaging of the left shoulder was taken which shows evidence of left acromioclavicular degenerative change and left shoulder subacromial space narrowing with greater tuberosity bony irregularity. We do not see evidence of fracture or dislocation at the left shoulder. We did discuss may have an injury to his rotator cuff. He is unable to undergo MRI imaging. Currently, we would recommend he continue conservative treatment options. He does not need further acute imaging during his admission to the hospital for his left shoulder. We would not plan for acute surgical intervention in regards to his left shoulder. 3. He is encouraged to continue working with physical therapy for both his right hip and left shoulder. He may perform regular activities of daily living to his tolerance. 4. From an orthopedic standpoint, patient is clear for discharge. He'll plan to follow up with Dr. Barnett in the outpatient setting for further treatment and evaluation. 5. Patient is most likely being discharged to rehabilitation facility the time of discharge was cleared by medicine. 6. Patient will continue be seen and examined by medicine and will manage his discharge status.
[2023-04-22 11:43] LABS: Glucose,Whole Blood 54 mg/dL (70-110)
[2023-04-22 12:00] LABS: Glucose,Whole Blood 52 mg/dL (70-110)
[2023-04-22] MEDS: DAPAGLIFLOZIN PROPANEDIOL 10 MG TABLET PO SCH (12:12)
[2023-04-22 12:18] LABS: Glucose,Whole Blood 53 mg/dL (70-110)
[2023-04-22] MEDS: DEXTROSE 50% SYRINGE 50 ML IVP PRN (12:23)
[2023-04-22] MEDS: ACETAMINOPHEN TAB 325 MG TAB PO PRN (12:23)
[2023-04-22 12:52] LABS: Glucose,Whole Blood 155 mg/dL (70-110)
[2023-04-22 13:06] VITALS: BMI 30.9
--- NOTE | 2023-04-22 14:37 | P.PN ---
Subjective Progress Note Date: 04/22/23 Patient is a 72-year-old gentleman with past medical history significant for hypothyroidism, hypertension, diabetes mellitus who presented to the ER because of inability to walk. Patient was recently admitted to the hospital after having a fall.patient had a fall on the at which time he was monitored ,CT of the hip showed a right greater trochanteric minimally displaced fracture with no intertrochanteric extension. Evaluated by orthopedics who recommended nonsurgical treatment weight bear as tolerated. patient at home unable to bear any weight on his right leg and unable to take care of himself. Patient was admitted to medicine service 04/22. Patient seen and examined. Blood sugars were slightly elevated this morning, yesterday night was running pretty consistently in 100-200. Blood sugars are very labile. Sister at the bedside REVIEW OF SYSTEMS: CONSTITUTIONAL: No fever, no malaise,. CARDIOVASCULAR: No chest pain, no palpitations, no syncope. PULMONARY: No shortness of breath, no cough, GASTROINTESTINAL: No diarrhea, no nausea, no vomiting, no abdominal pain. NEUROLOGICAL: No headaches, no weakness, PHYSICAL EXAMINATION: GENERAL: The patient is alert , not in any acute distress. Well developed, well nourished. HEENT: Pupils are round and equally reacting to light. EOMI. No scleral icterus. No conjunctival pallor. Normocephalic, atraumatic. No pharyngeal erythema. No thyromegaly. CARDIOVASCULAR: S1 and S2 present. No murmurs, rubs, or gallops. PULMONARY: Chest is clear to auscultation, no wheezing or crackles. ABDOMEN: Soft, nontender, nondistended, normoactive bowel sounds. No palpable organomegaly. MUSCULOSKELETAL: No joint swelling or deformity. EXTREMITIES: No cyanosis, clubbing, or pedal edema. NEUROLOGICAL: Gross neurological examination did not reveal any focal deficits. SKIN: No rashes. Assessment and plan Acute minimally displaced comminuted fracture of the right greater trochanter secondary to fall. Inability to take care of himself -Recurrent falls Continue pain regimen Orthopedic evaluation the patient recommended no surgical intervention, recommended conservative management PT and OT evaluation -Diabetes mellitus type 2, chronically on insulin. Uncontrolled with hyperglycemia and hypoglycemia. Monitor blood sugar levels Continue Levemir 15 units twice a day continue NovoLog 4 units with meals Continue sliding scale Continue metformin and farxiga -Coronary artery disease and history of stent, bypass Aspirin, Lopressor -GERD Protonix -Hyperlipidemia Lipitor 80 -Essential hypertension, Lopressor 25 mg twice a day, -Hypothyroid Synthroid. -Peripheral neuropathy Continue Neurontin 300 mg bid DVT prophylaxis: Objective - Vital Signs Vital signs: Vital Signs Temp 97.8 F 04/22/23 08:00 Pulse 79 04/22/23 08:00 Resp 16 04/22/23 08:00 BP 161/68 04/22/23 08:00 Pulse Ox 92 L 04/22/23 08:00 FiO2 Intake & Output 04/21/23 04/22/23 04/22/23 18:59 06:59 18:59 Intake Total 120 120 Output Total 1450 250 450 Balance -1330 -250 -330 Intake: Oral 120 120 Output: Urine 1450 250 450 Other: # Voids 1 - Labs CBC & Chem 7: 04/21/23 22:47 04/22/23 08:15 Labs: Abnormal Lab Results - Last 24 Hours (Table) 04/21/23 04/21/23 04/21/23 Range/Units 11:53 16:57 17:00 RBC (4.30-5.90) m/uL Hgb (13.0-17.5) gm/dL VBG pCO2 (37-51) mmHg VBG HCO3 (24-28) mmol/L Sodium (137-145) mmol/L Chloride (98-107) mmol/L BUN (9-20) mg/dL Creatinine (0.66-1.25) mg/dL Glucose (74-99) mg/dL POC Glucose (mg/dL) 468 H >600 H 488 H (70-110) mg/dL 04/21/23 04/21/23 04/21/23 Range/Units 20:43 21:57 22:47 RBC 4.25 L (4.30-5.90) m/uL Hgb 12.6 L (13.0-17.5) gm/dL VBG pCO2 (37-51) mmHg VBG HCO3 (24-28) mmol/L Sodium (137-145) mmol/L Chloride (98-107) mmol/L BUN (9-20) mg/dL Creatinine (0.66-1.25) mg/dL Glucose (74-99) mg/dL POC Glucose (mg/dL) 536 H 444 H (70-110) mg/dL 04/21/23 04/21/23 04/22/23 Range/Units 22:47 22:47 00:01 RBC (4.30-5.90) m/uL Hgb (13.0-17.5) gm/dL VBG pCO2 52 H (37-51) mmHg VBG HCO3 31 H (24-28) mmol/L Sodium 133 L (137-145) mmol/L Chloride 96 L (98-107) mmol/L BUN 59 H (9-20) mg/dL Creatinine 1.29 H (0.66-1.25) mg/dL Glucose 253 H (74-99) mg/dL POC Glucose (mg/dL) 197 H (70-110) mg/dL 04/22/23 04/22/23 04/22/23 Range/Units 00:10 02:05 03:49 RBC (4.30-5.90) m/uL Hgb (13.0-17.5) gm/dL VBG pCO2 (37-51) mmHg VBG HCO3 (24-28) mmol/L Sodium 134 L 135 L (137-145) mmol/L Chloride 97 L (98-107) mmol/L BUN 57 H 55 H (9-20) mg/dL Creatinine (0.66-1.25) mg/dL Glucose 163 H (74-99) mg/dL POC Glucose (mg/dL) 158 H (70-110) mg/dL 04/22/23 04/22/23 Range/Units 06:16 08:15 RBC (4.30-5.90) m/uL Hgb (13.0-17.5) gm/dL VBG pCO2 (37-51) mmHg VBG HCO3 (24-28) mmol/L Sodium 136 L (137-145) mmol/L Chloride (98-107) mmol/L BUN 50 H (9-20) mg/dL Creatinine (0.66-1.25) mg/dL Glucose 70 L (74-99) mg/dL POC Glucose (mg/dL) 474 H (70-110) mg/dL
[2023-04-22 16:40] LABS: Glucose,Whole Blood 277 mg/dL (70-110)
[2023-04-22 20:08] LABS: Glucose,Whole Blood 319 mg/dL (70-110)
[2023-04-23] MEDS: MORPHINE SULFATE 4 MG/ML SYRINGE IV PRN ×5 (01:03→20:37)
[2023-04-23 02:07] LABS: Glucose,Whole Blood 124 mg/dL (70-110)
[2023-04-23] MEDS: SODIUM CHLORIDE 0.9% 1,000 ML IV SCH ×4 (04:27→12:27)
[2023-04-23 06:12] LABS: Glucose,Whole Blood 49 mg/dL (70-110)
[2023-04-23] MEDS: DEXTROSE 50% SYRINGE 50 ML IVP PRN (06:21)
[2023-04-23] MEDS: INSULIN ASPART (NovoLOG) 100 UNIT/ML VIAL SQ SCH ×7 (06:23→20:36)
[2023-04-23] MEDS: metFORMIN 500 MG TAB PO SCH ×2 (06:25→16:44)
[2023-04-23 06:29] LABS: Glucose,Whole Blood 125 mg/dL (70-110)
[2023-04-23] MEDS: INSULIN DETEMIR (LEVEMIR) 100 UNIT/ML SYR SQ SCH ×2 (06:33→20:36)
[2023-04-23] MEDS: ISOSORBIDE MONONITRATE ER 30 MG TAB.ER.24H PO SCH (08:19)
[2023-04-23] MEDS: PANTOPRAZOLE 40 MG TABLET PO SCH (08:19)
[2023-04-23] MEDS: ESCITALOPRAM 10 MG TAB PO SCH (08:19)
[2023-04-23] MEDS: FERROUS SULFATE 325 MG TAB PO SCH (08:19)
[2023-04-23] MEDS: METOPROLOL TARTRATE 25 MG TAB PO SCH (08:19)
[2023-04-23] MEDS: ATORVASTATIN 80 MG TAB PO SCH (08:19)
[2023-04-23] MEDS: ASPIRIN 81 MG PO SCH (08:19)
[2023-04-23] MEDS: GABAPENTIN 300 MG CAP PO SCH ×3 (08:19→20:36)
[2023-04-23] MEDS: DAPAGLIFLOZIN PROPANEDIOL 10 MG TABLET PO SCH (08:19)
[2023-04-23] MEDS: LEVOTHYROXINE 137 MCG TAB PO SCH (08:19)
[2023-04-23 11:28] LABS: Glucose,Whole Blood 79 mg/dL (70-110)
--- NOTE | 2023-04-23 13:46 | P.PN ---
Subjective Progress Note Date: 04/23/23 Patient is a 72-year-old gentleman with past medical history significant for hypothyroidism, hypertension, diabetes mellitus who presented to the ER because of inability to walk. Patient was recently admitted to the hospital after having a fall.patient had a fall on the at which time he was monitored ,CT of the hip showed a right greater trochanteric minimally displaced fracture with no intertrochanteric extension. Evaluated by orthopedics who recommended nonsurgical treatment weight bear as tolerated. patient at home unable to bear any weight on his right leg and unable to take care of himself. Patient was admitted to medicine service 04/22. Patient seen and examined. Blood sugars were slightly elevated this morning, yesterday night was running pretty consistently in 100-200. Blood sugars are very labile. Sister at the bedside 04/23. Patient seen and examined. Patient had a drop of low blood sugar this morning around 6:00. Rest of blood sugars were well maintained. Still com plaining of right hip pain REVIEW OF SYSTEMS: CONSTITUTIONAL: No fever, no malaise,. CARDIOVASCULAR: No chest pain, no palpitations, no syncope. PULMONARY: No shortness of breath, no cough, GASTROINTESTINAL: No diarrhea, no nausea, no vomiting, no abdominal pain. NEUROLOGICAL: No headaches, no weakness, PHYSICAL EXAMINATION: GENERAL: The patient is alert , not in any acute distress. Well developed, well nourished. HEENT: Pupils are round and equally reacting to light. EOMI. No scleral icterus. No conjunctival pallor. Normocephalic, atraumatic. No pharyngeal erythema. No thyromegaly. CARDIOVASCULAR: S1 and S2 present. No murmurs, rubs, or gallops. PULMONARY: Chest is clear to auscultation, no wheezing or crackles. ABDOMEN: Soft, nontender, nondistended, normoactive bowel sounds. No palpable organomegaly. MUSCULOSKELETAL: No joint swelling or deformity. EXTREMITIES: No cyanosis, clubbing, or pedal edema. NEUROLOGICAL: Gross neurological examination did not reveal any focal deficits. SKIN: No rashes. Assessment and plan Acute minimally displaced comminuted fracture of the right greater trochanter secondary to fall. Inability to take care of himself -Recurrent falls Continue pain regimen Orthopedic evaluation the patient recommended no surgical intervention, recommended conservative management PT and OT evaluation -Diabetes mellitus type 2, chronically on insulin. Uncontrolled with hyperglycemia and hypoglycemia. Monitor blood sugar levels Decrease Levemir to 10 units at night, continue Levemir 15 units a morning continue NovoLog 4 units with meals Continue sliding scale Continue metformin and farxiga -Coronary artery disease and history of stent, bypass Aspirin, Lopressor -GERD Protonix -Hyperlipidemia Lipitor 80 -Essential hypertension, Lopressor 25 mg twice a day, -Hypothyroid Synthroid. -Peripheral neuropathy Continue Neurontin 300 mg bid DVT prophylaxis: Objective - Vital Signs Vital signs: Vital Signs Temp 98.4 F 04/23/23 08:30 Pulse 73 04/23/23 08:30 Resp 16 04/23/23 08:30 BP 172/72 04/23/23 08:30 Pulse Ox 95 04/23/23 08:30 FiO2 Intake & Output 04/22/23 04/23/23 04/23/23 18:59 06:59 18:59 Intake Total 360 180 Output Total 1350 3002 Balance -990 -3002 180 Weight 97.976 kg Intake: Oral 360 180 Output: Gastric Drainage 0 Urine 1350 2375 Straight 900 900 Post Void Residual 627 Stool 0 0 Urine/Stool Mix 0 Emesis 0 Oral Regurgitation 0 Other 0 Other: Voiding Method External Catheter # Voids 0 # Bowel Movements 0 - Labs CBC & Chem 7: 04/21/23 22:47 04/22/23 08:15 Labs: Abnormal Lab Results - Last 24 Hours (Table) 04/22/23 04/22/23 04/22/23 Range/Units 03:49 11:41 11:59 POC Glucose (mg/dL) 54 L 52 L (70-110) mg/dL Hemoglobin A1c 8.3 H (<=6.0) % 04/22/23 04/22/23 04/22/23 Range/Units 12:16 12:51 16:38 POC Glucose (mg/dL) 53 L 155 H 277 H (70-110) mg/dL Hemoglobin A1c (<=6.0) % 04/22/23 04/23/23 04/23/23 Range/Units 20:07 02:04 06:11 POC Glucose (mg/dL) 319 H 124 H 49 L (70-110) mg/dL Hemoglobin A1c (<=6.0) % 04/23/23 Range/Units 06:28 POC Glucose (mg/dL) 125 H (70-110) mg/dL Hemoglobin A1c (<=6.0) %
[2023-04-23 16:46] LABS: Glucose,Whole Blood 141 mg/dL (70-110)
[2023-04-23 20:16] LABS: Glucose,Whole Blood 245 mg/dL (70-110)
[2023-04-24] MEDS: SODIUM CHLORIDE 0.9% 1,000 ML IV SCH ×3 (00:07→19:52)
[2023-04-24 02:16] LABS: Glucose,Whole Blood 127 mg/dL (70-110)
[2023-04-24] MEDS: MORPHINE SULFATE 4 MG/ML SYRINGE IV PRN ×3 (02:35→08:58)
[2023-04-24 05:40] LABS: Glucose,Whole Blood 85 mg/dL (70-110)
[2023-04-24] MEDS: INSULIN ASPART (NovoLOG) 100 UNIT/ML VIAL SQ SCH ×7 (05:44→19:51)
[2023-04-24] MEDS: METOPROLOL TARTRATE 25 MG TAB PO SCH (06:34)
[2023-04-24] MEDS: LEVOTHYROXINE 137 MCG TAB PO SCH (06:34)
[2023-04-24] MEDS: INSULIN DETEMIR (LEVEMIR) 100 UNIT/ML SYR SQ SCH ×2 (06:34→19:51)
[2023-04-24] MEDS: metFORMIN 500 MG TAB PO SCH ×2 (06:34→17:12)
[2023-04-24] MEDS: ATORVASTATIN 80 MG TAB PO SCH (08:59)
[2023-04-24] MEDS: DAPAGLIFLOZIN PROPANEDIOL 10 MG TABLET PO SCH (08:59)
[2023-04-24] MEDS: ASPIRIN 81 MG PO SCH (08:59)
[2023-04-24] MEDS: ISOSORBIDE MONONITRATE ER 30 MG TAB.ER.24H PO SCH (08:59)
[2023-04-24] MEDS: GABAPENTIN 300 MG CAP PO SCH ×3 (09:00→19:51)
[2023-04-24] MEDS: FERROUS SULFATE 325 MG TAB PO SCH (09:00)
[2023-04-24] MEDS: PANTOPRAZOLE 40 MG TABLET PO SCH (09:00)
[2023-04-24] MEDS: ESCITALOPRAM 10 MG TAB PO SCH (09:00)
[2023-04-24 11:44] LABS: Glucose,Whole Blood 104 mg/dL (70-110)
[2023-04-24] MEDS: ACETAMINOPHEN TAB 325 MG TAB PO PRN ×2 (11:56→19:51)
[2023-04-24] MEDS: HYDROcodone/APAP 5-325MG 1 EACH TAB PO PRN ×3 (13:04→22:02)
--- NOTE | 2023-04-24 14:32 | P.PN ---
Subjective Progress Note Date: 04/24/23 Patient is a 72-year-old gentleman with past medical history significant for hypothyroidism, hypertension, diabetes mellitus who presented to the ER because of inability to walk. Patient was recently admitted to the hospital after having a fall.patient had a fall on the at which time he was monitored ,CT of the hip showed a right greater trochanteric minimally displaced fracture with no intertrochanteric extension. Evaluated by orthopedics who recommended nonsurgical treatment weight bear as tolerated. patient at home unable to bear any weight on his right leg and unable to take care of himself. Patient was admitted to medicine service 04/22. Patient seen and examined. Blood sugars were slightly elevated this morning, yesterday night was running pretty consistently in 100-200. Blood sugars are very labile. Sister at the bedside 04/23. Patient seen and examined. Patient had a drop of low blood sugar this morning around 6:00. Rest of blood sugars were well maintained. Still com plaining of right hip pain 04/24. Patient seen and examined. Blood sugars are better controlled, still has right hip pain REVIEW OF SYSTEMS: CONSTITUTIONAL: No fever, no malaise,. CARDIOVASCULAR: No chest pain, no palpitations, no syncope. PULMONARY: No shortness of breath, no cough, GASTROINTESTINAL: No diarrhea, no nausea, no vomiting, no abdominal pain. NEUROLOGICAL: No headaches, no weakness, PHYSICAL EXAMINATION: GENERAL: The patient is alert , not in any acute distress. Well developed, well nourished. HEENT: Pupils are round and equally reacting to light. EOMI. No scleral icterus. No conjunctival pallor. Normocephalic, atraumatic. No pharyngeal erythema. No thyromegaly. CARDIOVASCULAR: S1 and S2 present. No murmurs, rubs, or gallops. PULMONARY: Chest is clear to auscultation, no wheezing or crackles. ABDOMEN: Soft, nontender, nondistended, normoactive bowel sounds. No palpable organomegaly. MUSCULOSKELETAL: No joint swelling or deformity. EXTREMITIES: No cyanosis, clubbing, or pedal edema. NEUROLOGICAL: Gross neurological examination did not reveal any focal deficits. SKIN: No rashes. Assessment and plan Acute minimally displaced comminuted fracture of the right greater trochanter secondary to fall. Inability to take care of himself -Recurrent falls Continue pain regimen Orthopedic evaluation the patient recommended no surgical intervention, recommended conservative management Start Dolores for pain control PT and OT evaluation -Diabetes mellitus type 2, chronically on insulin. Uncontrolled with hyperglycemia and hypoglycemia. Monitor blood sugar levels Continue Levemir 10 units at night, continue Levemir 15 units a morning continue NovoLog 4 units with meals Continue sliding scale Continue metformin and farxiga -Coronary artery disease and history of stent, bypass Aspirin, Lopressor -GERD Protonix -Hyperlipidemia Lipitor 80 -Essential hypertension, Lopressor 25 mg twice a day, -Hypothyroid Synthroid. -Peripheral neuropathy Continue Neurontin 300 mg bid DVT prophylaxis: Objective - Vital Signs Vital signs: Vital Signs Temp 98.9 F 04/24/23 08:43 Pulse 86 04/24/23 12:00 Resp 22 04/24/23 12:00 BP 185/86 04/24/23 12:00 Pulse Ox 95 04/24/23 12:00 FiO2 Intake & Output 04/23/23 04/24/23 04/24/23 18:59 06:59 18:59 Intake Total 1620 900 Output Total 1175 2225 650 Balance 445 -2225 250 Intake: Intake, IV Titration 1200 Amount Sodium Chloride 0.9% 1, 1200 000 ml @ 100 mls/hr IV . Q10H [facility] Rx#:[id number] Oral 420 900 Output: Urine 1175 2225 650 Uretheral (Romeo) 725 Stool 0 0 Other: Voiding Method Indwelling Catheter Indwelling Catheter Indwelling Catheter - Labs CBC & Chem 7: 04/21/23 22:47 04/22/23 08:15 Labs: Abnormal Lab Results - Last 24 Hours (Table) 04/23/23 04/23/23 04/24/23 Range/Units 16:45 20:15 02:07 POC Glucose (mg/dL) 141 H 245 H 127 H (70-110) mg/dL
[2023-04-24 15:54] LABS: Glucose,Whole Blood 223 mg/dL (70-110)
[2023-04-24 19:33] LABS: Glucose,Whole Blood 430 mg/dL (70-110)
[2023-04-25 02:00] LABS: Glucose,Whole Blood 184 mg/dL (70-110)
[2023-04-25 06:04] LABS: Glucose,Whole Blood 155 mg/dL (70-110)
[2023-04-25] MEDS: LEVOTHYROXINE 137 MCG TAB PO SCH (06:33)
[2023-04-25] MEDS: metFORMIN 500 MG TAB PO SCH (06:33)
[2023-04-25] MEDS: INSULIN DETEMIR (LEVEMIR) 100 UNIT/ML SYR SQ SCH (06:33)
[2023-04-25] MEDS: SODIUM CHLORIDE 0.9% 1,000 ML IV SCH (06:33)
[2023-04-25] MEDS: INSULIN ASPART (NovoLOG) 100 UNIT/ML VIAL SQ SCH ×5 (06:34→16:40)
[2023-04-25 08:24] VITALS: RESP 16
[2023-04-25] MEDS: ATORVASTATIN 80 MG TAB PO SCH (08:25)
[2023-04-25] MEDS: ISOSORBIDE MONONITRATE ER 30 MG TAB.ER.24H PO SCH (08:25)
[2023-04-25] MEDS: PANTOPRAZOLE 40 MG TABLET PO SCH (08:25)
[2023-04-25] MEDS: ESCITALOPRAM 10 MG TAB PO SCH (08:25)
[2023-04-25] MEDS: FERROUS SULFATE 325 MG TAB PO SCH (08:25)
[2023-04-25] MEDS: GABAPENTIN 300 MG CAP PO SCH ×2 (08:25→16:39)
[2023-04-25] MEDS: ASPIRIN 81 MG PO SCH (08:25)
[2023-04-25] MEDS: METOPROLOL TARTRATE 25 MG TAB PO SCH (08:25)
[2023-04-25] MEDS: HYDROcodone/APAP 5-325MG 1 EACH TAB PO PRN ×3 (08:26→16:39)
[2023-04-25] MEDS: DAPAGLIFLOZIN PROPANEDIOL 10 MG TABLET PO SCH (10:16)
[2023-04-25 11:44] LABS: Glucose,Whole Blood 86 mg/dL (70-110)
[2023-04-25 12:29] VITALS: BP 164/78; PULSE 69; TEMP 98
--- NOTE | 2023-04-25 13:59 | P.DS ---
Providers Date of admission: 04/22/23 06:06 Expected date of discharge: 04/25/23 Attending physician: Carter Ibarra Consults: 04/21/23 11:10 Consult Physician Routine Consulting Provider: Piotr Barnett Consult Reason/Comments: rt hip pain Do you want consulting provider notified?: Yes Primary care physician: [facility] Course: Discharge diagnoses; Acute minimally displaced comminuted fracture of the right greater trochanter secondary to fall. Inability to take care of himself -Recurrent falls Continue pain regimen Orthopedic evaluation the patient recommended no surgical intervention, recommended conservative management Being discharged to rehab -Diabetes mellitus type 2, chronically on insulin. Uncontrolled with hyperglycemia and hypoglycemia. Monitor blood sugar levels Continue Levemir 10 units at night, continue Levemir 15 units a morning Continue sliding scale Continue metformin and farxiga -Coronary artery disease and history of stent, bypass Aspirin, Lopressor -GERD Protonix -Hyperlipidemia Lipitor 80 -Essential hypertension, Lopressor 25 mg twice a day, -Hypothyroid Synthroid. -Peripheral neuropathy Continue Neurontin 300 mg bid Hospital course; Patient is a 72-year-old gentleman with past medical history significant for hypothyroidism, hypertension, diabetes mellitus who presented to the ER because of inability to walk. Patient was recently admitted to the hospital after having a fall.patient had a fall on the at which time he was monitored ,CT of the hip showed a right greater trochanteric minimally displaced fracture with no intertrochanteric extension. Evaluated by orthopedics who recommended nonsurgical treatment weight bear as tolerated. patient at home unable to bear any weight on his right leg and unable to take care of himself. Patient was admitted to medicine service 04/22. Patient seen and examined. Blood sugars were slightly elevated this morning, yesterday night was running pretty consistently in 100-200. Blood sugars are very labile. Sister at the bedside 04/23. Patient seen and examined. Patient had a drop of low blood sugar this morning around 6:00. Rest of blood sugars were well maintained. Still complaining of right hip pain 04/24. Patient seen and examined. Blood sugars are better controlled, still has right hip pain 04/25. Patient seen and examined. Being discharged in stable condition to rehab. Blood sugar is better controlled PHYSICAL EXAMINATION: GENERAL: The patient is alert , not in any acute distress. Well developed, well nourished. HEENT: Pupils are round and equally reacting to light. EOMI. No scleral icterus. No conjunctival pallor. Normocephalic, atraumatic. No pharyngeal erythema. No thyromegaly. CARDIOVASCULAR: S1 and S2 present. No murmurs, rubs, or gallops. PULMONARY: Chest is clear to auscultation, no wheezing or crackles. ABDOMEN: Soft, nontender, nondistended, normoactive bowel sounds. No palpable organomegaly. MUSCULOSKELETAL: No joint swelling or deformity. EXTREMITIES: No cyanosis, clubbing, or pedal edema. NEUROLOGICAL: Gross neurological examination did not reveal any focal deficits. SKIN: No rashes. Patient Condition at Discharge: Good Plan - Discharge Summary Discharge Rx Participant: No New Discharge Prescriptions: New Insulin Detemir (Levemir) [Levemir] 15 unit SQ DAILY@0700 each HYDROcodone/APAP 5-325MG [Hudson 5-325] 1 each PO Q4HR PRN #18 tab PRN Reason: Pain Insulin Detemir (Levemir) [Levemir] 10 unit SQ HS each Continue Isosorbide Mononitrate ER [Imdur] 30 mg PO DAILY Pantoprazole Sodium [Protonix] 40 mg PO DAILY Metoprolol Tartrate [Lopressor] 25 mg PO DAILY Ferrous Sulfate [Iron (65 MG Elemental)] 325 mg PO DAILY Aspirin [Ubly Aspirin EC] 81 mg PO DAILY Levothyroxine Sodium [Synthroid] 137 mcg PO DAILY Ammonium Lactate Cream [Lac-Hydrin 12% Cream] 1 applic TOPICAL BID PRN PRN Reason: Dry Skin Empagliflozin [Jardiance] 25 mg PO DAILY Glucagon Emergency Kit 1 mg IM ONCE PRN PRN Reason: LOW BLOOD SUGAR Escitalopram [Lexapro] 10 mg PO DAILY Gabapentin [Neurontin] 300 mg PO TID 3 Days #6 cap Insulin Aspart [NovoLOG Flexpen] See Protocol SQ AC-TID Atorvastatin [Lipitor] 80 mg PO DAILY metFORMIN HCL ER [Glucophage XR] 1,000 mg PO W/SUPPER Solifenacin Succinate [Vesicare] 5 mg PO DAILY Discontinued Insulin Glargine,Hum.rec.anlog [Lantus Solostar Pen] 20 unit SQ DAILY Lisinopril-Hctz 10-12.5 mg [Zestoretic 10-12.5] 1 tab PO BID Discharge Medication List Aspirin [Ubly Aspirin EC] 81 mg PO DAILY 03/13/19 [History] Ferrous Sulfate [Iron (65 MG Elemental)] 325 mg PO DAILY 03/13/19 [History] Isosorbide Mononitrate ER [Imdur] 30 mg PO DAILY 03/13/19 [History] Levothyroxine Sodium [Synthroid] 137 mcg PO DAILY 03/13/19 [History] Metoprolol Tartrate [Lopressor] 25 mg PO DAILY 03/13/19 [History] Pantoprazole Sodium [Protonix] 40 mg PO DAILY 03/13/19 [History] Insulin Aspart [NovoLOG Flexpen] See Protocol SQ AC-TID 03/30/21 [History] Ammonium Lactate Cream [Lac-Hydrin 12% Cream] 1 applic TOPICAL BID PRN 04/13/23 [History] Atorvastatin [Lipitor] 80 mg PO DAILY 04/13/23 [History] Empagliflozin [Jardiance] 25 mg PO DAILY 04/13/23 [History] Escitalopram [Lexapro] 10 mg PO DAILY 04/13/23 [History] Glucagon Emergency Kit 1 mg IM ONCE PRN 04/13/23 [History] Solifenacin Succinate [Vesicare] 5 mg PO DAILY 04/13/23 [History] metFORMIN HCL ER [Glucophage XR] 1,000 mg PO W/SUPPER 04/13/23 [History] Gabapentin [Neurontin] 300 mg PO TID 3 Days #6 cap 04/25/23 [Rx] HYDROcodone/APAP 5-325MG [Hudson 5-325] 1 each PO Q4HR PRN #18 tab 04/25/23 [Rx] Insulin Detemir (Levemir) [Levemir] 10 unit SQ HS each 04/25/23 [Rx] Insulin Detemir (Levemir) [Levemir] 15 unit SQ DAILY@0700 each 04/25/23 [Rx] Follow up Appointment(s)/Referral(s): [facility], [NON-STAFF] - (Contact Home Care Agency regarding visit.) Mika Bell DO [Primary Care Provider] - 1-2 days Piotr Barnett MD [Medical Doctor] - 10 Days (Patient may follow-up with Dr. Barnett at [facility] in 7-10 days following discharge. ) Activity/Diet/Wound Care/Special Instructions: 1. Patient may weight-bear as tolerated on right lower extremity with the assistance of a walker 2. Patient may perform regular activities of daily living with his left shoulder and left upper extremity to his tolerance 3. Patient is encouraged to continue working with physical therapy Discharge Disposition: TRANSFER TO SNF/ECF
[2023-04-25 16:34] LABS: Glucose,Whole Blood 134 mg/dL (70-110)
--- NOTE | 2023-04-25 16:55 | CDI ---
Documentation Clarification Form Date: From: Sasha Eagle RN, CCDS Admit Date: 04/22/2023 06:06:00 AM Patient Name: Colton Ross Visit Number: [id number] Discharge Date: ATTENTION: The Clinical Documentation Specialists (CDI) and [facility] Coding Staff appreciate your assistance in clarifying documentation. Please respond to the clarification below the line at the bottom and electronically sign. The CDI & [facility] Coding staff will review the response and follow-up if needed. Please note: Queries are made part of the Legal Health Record. If you have any questions, please contact the author of this message via ITS. Dr. Adi Harris Your patient has an abnormal lab value starting on 2022 BUN 56, Cr 1.51. Please clarify if there is an additional diagnosis and/or clinical significance related to this value. History/Risk Factors: CAD, Diabetes Mellitus type 2 HTN MS Hyperlipidemia, Thyroid disorder, former smoker Clinical indicators: 72-year-old male present to ER with inability to walk. He had a previous fall with CT of the hip showed a right greater trochanteric minimally displaced fracture with no intertrochanteric extension. Evaluated by orthopedic who recommended nonsurgical treatment weight bear as tolerated. He is alert and oriented x3. 04/20 BUN 56, Cr 1.51 GFR 46 04/21 BUN 59, Cr 1.29 GFR 55 04/22 BUN 55, Cr 1.24 GFR 58 Treatment: Cardiac/Telemetry Monitoring .9NS @100 MLS/HR 04/21-04/25 Is there an additional diagnosis and/or clinical significance related to the above lab result/information? [ x ] Acute Kidney injury [ ] Acute Kidney injury with chronic kidney disease (specify stage [ ] Other, please specify [ ] Unable to determine (Template Last Revised: November 2020) MTDD
== END 2023-04-25 16:50 | DRG 536 ==
LOC: EC 17:01 → 4SSUR 19:46 → 3SCARD 04-22 00:05 → OBSVTOIN 04-22 06:06
PROVIDERS: ADMIT Hospitalist; ATTEND Hospitalist
DX: S72.111A Displaced fracture of greater trochanter of right femur, initial encounter for closed fracture (principal); N17.9 Acute kidney failure, unspecified; E03.9 Hypothyroidism, unspecified; Z79.890 Hormone replacement therapy; E11.42 Type 2 diabetes mellitus with diabetic polyneuropathy; E78.5 Hyperlipidemia, unspecified; F32.A Depression, unspecified; I25.10 Atherosclerotic heart disease of native coronary artery without angina pectoris; K21.9 Gastro-esophageal reflux disease without esophagitis; I25.2 Old myocardial infarction; I10 Essential (primary) hypertension; M19.90 Unspecified osteoarthritis, unspecified site; R29.6 Repeated falls; W10.9XXA Fall (on) (from) unspecified stairs and steps, initial encounter; Z79.4 Long term (current) use of insulin; Z79.899 Other long term (current) drug therapy; Z79.84 Long term (current) use of oral hypoglycemic drugs; Z91.81 History of falling; Z87.891 Personal history of nicotine dependence; Z95.1 Presence of aortocoronary bypass graft; Z79.82 Long term (current) use of aspirin; Z82.49 Family history of ischemic heart disease and other diseases of the circulatory system; E11.649 Type 2 diabetes mellitus with hypoglycemia without coma
CPT/HCPCS: 36415; 73502; 80048; 80051; 80053; 82009; 82565; 82803; 82947; 83036; 84100; 84520; 85025; 96374; 99285

== ENCOUNTER 2023-05-01 22:31 | Emergency (ER) | payer MEDICARE, BC ==
[2023-05-01] MEDS ORDERED: Acetaminophen-Codeine 300-30mg TAB PO STA (22:56)
--- NOTE | 2023-05-01 22:59 | ED ---
Recheck HPI - General Stated Complaint: Abnormal labs Time Seen by Provider: 05/01/23 22:42 - History of Present Illness Initial Comments: This patient is 72-year-old man sent here because his potassium was found to be 6.8. The patient states that he was having routine blood testing at the prison and they found that his potassium was up to 6.8. The accompanying paperwork does state that the potassium was 6.8. The patient denies having symptoms related to that. He states he hasn't felt weaker than usual, but he isn't up that much at the prison anyway. He states that his hip does ache that he had a recent fracture related to a fall. Complaint: abnormal lab Onset/Timin -: days(s) Returns Today for: Called Because of Abnormal Lab/Test Symptoms Since Prior Visit: no new symptoms Context: called for abnormal lab result Associated Symptoms: none - Related Data Home Medications Medication Instructions Recorded Confirmed Aspirin [[place] Aspirin EC] 81 mg PO DAILY 03/13/19 04/20/23 Ferrous Sulfate [Iron (65 MG 325 mg PO DAILY 03/13/19 04/20/23 Elemental)] Isosorbide Mononitrate ER [Imdur] 30 mg PO DAILY 03/13/19 04/20/23 Levothyroxine Sodium [Synthroid] 137 mcg PO DAILY 03/13/19 04/20/23 Metoprolol Tartrate [Lopressor] 25 mg PO DAILY 03/13/19 04/20/23 Pantoprazole Sodium [Protonix] 40 mg PO DAILY 03/13/19 04/20/23 Insulin Aspart [NovoLOG Flexpen] See Protocol SQ AC-TID 03/30/21 04/20/23 Ammonium Lactate Cream [Lac-Hydrin 1 applic TOPICAL BID PRN 04/13/23 04/20/23 12% Cream] Atorvastatin [Lipitor] 80 mg PO DAILY 04/13/23 04/20/23 Empagliflozin [Jardiance] 25 mg PO DAILY 04/13/23 04/20/23 Escitalopram [Lexapro] 10 mg PO DAILY 04/13/23 04/20/23 Glucagon Emergency Kit 1 mg IM ONCE PRN 04/13/23 04/20/23 Solifenacin Succinate [Vesicare] 5 mg PO DAILY 04/13/23 04/20/23 metFORMIN HCL ER [Glucophage XR] 1,000 mg PO W/SUPPER 04/13/23 04/20/23 Previous Rx's Medication Instructions Recorded Gabapentin [Neurontin] 300 mg PO TID 3 Days #6 cap 04/25/23 HYDROcodone/APAP 5-325MG [Roland 1 each PO Q4HR PRN #18 tab 04/25/23 5-325] Insulin Detemir (Levemir) [Levemir] 10 unit SQ HS each 04/25/23 Insulin Detemir (Levemir) [Levemir] 15 unit SQ DAILY@0700 each 04/25/23 Allergies Allergy/AdvReac Type Severity Reaction Status Date / Time No Known Allergies Allergy Verified 04/20/23 20:56 Review of Systems ROS Statement: Those systems with pertinent positive or pertinent negative responses have been documented in the HPI. ROS Other: All systems not noted in ROS Statement are negative. Constitutional: Denies: fever, weakness Respiratory: Denies: cough, dyspnea Cardiovascular: Denies: chest pain, palpitations, syncope Gastrointestinal: Denies: abdominal pain, vomiting, diarrhea Genitourinary: Denies: dysuria Musculoskeletal: Reports: as per HPI, arthralgia Skin: Denies: rash Neurological: Denies: headache, weakness Past Medical History Past Medical History: Coronary Artery Disease (CAD), Diabetes Mellitus, GERD/Reflux, Hyperlipidemia, Hypertension, Myocardial Infarction ([place]), Thyroid Disorder Additional Past Medical History / Comment(s): neuropathy Last Myocardial Infarction Date:: unknown History of Any Multi-Drug Resistant Organisms: None Reported Past Surgical History: Appendectomy, Coronary Bypass/CABG, Heart Catheterization With Stent Additional Past Surgical History / Comment(s): Sister relays, "He had peripheral artery surgery too." Past Anesthesia/Blood Transfusion Reactions: No Reported Reaction Date of Last Stent Placement:: unknown Past Psychological History: Depression Smoking Status: Former smoker Past Alcohol Use History: Daily Past Drug Use History: Marijuana - Past Family History Father Family Medical History: Congestive Heart Failure (CHF) Mother Additional Family Medical History / Comment(s): of old age. General Exam General appearance: alert, in no apparent distress Head exam: Present: atraumatic, normocephalic Eye exam: Present: normal appearance. Absent: scleral icterus, conjunctival injection Neck exam: Present: normal inspection Respiratory exam: Present: normal lung sounds bilaterally. Absent: respiratory distress, wheezes, rales, rhonchi, stridor Cardiovascular Exam: Present: regular rate, normal rhythm, normal heart sounds. Absent: systolic murmur, diastolic murmur, rubs, gallop GI/Abdominal exam: Present: soft. Absent: distended, tenderness, guarding, rebound, rigid, mass Extremities exam: Present: normal inspection, normal capillary refill. Absent: pedal edema, calf tenderness Neurological exam: Present: alert Skin exam: Present: warm, dry, intact, normal color. Absent: rash Course Vital Signs 05/01/23 23:01 Temperature 98.5 F Pulse Rate 96 Respiratory 18 Rate Blood Pressure 175/83 O2 Sat by Pulse 93 L Oximetry Medical Decision Making - Medical Decision Making Was pt. sent in by a medical professional or institution (, PA, PLACEMENT SECRETARY, urgent care, hospital, or prison...) When possible be specific @ -Yes sent from prison after abnormal lab test Did you speak to anyone other than the patient for history (EMS, parent, family, police, friend...)? What history was obtained from this source @ -[No] Did you review nursing and triage notes (agree or disagree)? Why? @ -[I reviewed and agree with nursing and triage notes] Were old charts reviewed (outside hosp., previous admission, EMS record, old EKG, old radiological studies, urgent care reports/EKG's, prison records)? Report findings @ -[Transfer papers were reviewed] Differential Diagnosis (chest pain, altered mental status, abdominal pain women, abdominal pain men, vaginal bleeding, weakness, fever, dyspnea, syncope, headache, dizziness, GI bleed, back pain, seizure, CVA, palpatations, mental health, musculoskeletal)? @ -[The differential diagnosis for hyperkalemia includes but not limited to: Renal failure, acidosis, adrenal gland pathology, medication induced, rhabdomyolysis, increased intake, pseudohyperkalemia EKG interpreted by me (3pts min.). @ -[As above] X-rays interpreted by me (1pt min.). @ -[None done] CT interpreted by me (1pt min.). @ -[None done] U/S interpreted by me (1pt. min.). @ -[None done] What testing was considered but not performed or refused? (CT, X-rays, U/S, labs)? Why? @ -[None] What meds were considered but not given or refused? Why? @ -[None] Did you discuss the management of the patient with other professionals (professionals i.e. , PA, PLACEMENT SECRETARY, lab, RT, psych nurse, healthcare social worker, buzzle buffer, teacher, credit compliance officer, case management specialist)? Give summary @ -[No] Was smoking cessation discussed for >3mins.? @ -[No] Was critical care preformed (if so, how long)? @ -[No] Were there social determinants of health that impacted care today? How? (Homelessness, low income, unemployed, alcoholism, drug addiction, transportation, low edu. Level, literacy, decrease access to med. care, snf, rehab)? @ -[No] Was there de-escalation of care discussed even if they declined (Discuss DNR or withdrawal of care, Hospice)? DNR status @ -[No] What co-morbidities impacted this encounter? (DM, HTN, Smoking, COPD, CAD, Cancer, CVA, ARF, Chemo, Hep., AIDS, mental health diagnosis, sleep apnea, morbid obesity)? @ -[None] Was patient admitted / discharged? Hospital course, mention meds given and route, prescriptions, significant lab abnormalities, going to OR and other pertinent info. @ -[Lab testing reveals that the potassium here is normal, therefore patient stable for discharge back to his care facility Undiagnosed new problem with uncertain prognosis? @ -[No] Drug Therapy requiring intensive monitoring for toxicity (Heparin, Nitro, Insulin, Cardizem)? @ -[No] Were any procedures done? @ -[No] Diagnosis/symptom? @ -[Concern unfounded, normal potassium Acute, or Chronic, or Acute on Chronic? @ -[default] Uncomplicated (without systemic symptoms) or Complicated (systemic symptoms)? @ -[Uncomplicated Side effects of treatment? @ -[No] Exacerbation, Progression, or Severe Exacerbation? @ -[No] Poses a threat to life or bodily function? How? (Chest pain, [place], [place], pneumonia, PE, COPD, DKA, ARF, appy, cholecystitis, CVA, Diverticulitis, Homicidal, Suicidal, threat to staff... and all critical care pts) @ -[No] - Lab Data Result diagrams: 05/01/23 23:03 05/01/23 23:03 Lab Results 05/01/23 05/01/23 Range/Units 23:03 23:03 WBC 13.8 H (3.8-10.6) k/uL RBC 4.07 L (4.30-5.90) m/uL Hgb 11.8 L (13.0-17.5) gm/dL Hct 38.3 L (39.0-53.0) % MCV 94.0 (80.0-100.0) fL MCH 29.0 (25.0-35.0) pg MCHC 30.8 L (31.0-37.0) g/dL RDW 14.1 (11.5-15.5) % Plt Count 512 H (150-450) k/uL MPV 7.6 Neutrophils % 87 % Lymphocytes % 6 % Monocytes % 5 % Eosinophils % 1 % Basophils % 0 % Neutrophils # 12.0 H (1.3-7.7) k/uL Lymphocytes # 0.9 L (1.0-4.8) k/uL Monocytes # 0.6 (0-1.0) k/uL Eosinophils # 0.2 (0-0.7) k/uL Basophils # 0.0 (0-0.2) k/uL Hypochromasia Slight Sodium 131 L (137-145) mmol/L Potassium 5.0 (3.5-5.1) mmol/L Chloride 97 L (98-107) mmol/L Carbon Dioxide 26 (22-30) mmol/L Anion Gap 8 mmol/L BUN 24 H (9-20) mg/dL Creatinine 1.03 (0.66-1.25) mg/dL Est GFR (CKD-EPI)AfAm 84 (>60 ml/min/1.73 sqM) Est GFR (CKD-EPI)NonAf 73 (>60 ml/min/1.73 sqM) Glucose 284 H (74-99) mg/dL Calcium 8.2 L (8.4-10.2) mg/dL Total Bilirubin 0.4 (0.2-1.3) mg/dL AST 24 (17-59) U/L ALT 28 (4-49) U/L Alkaline Phosphatase 137 H (38-126) U/L Total Protein 7.0 (6.3-8.2) g/dL Albumin 2.9 L (3.5-5.0) g/dL - EKG Data -: EKG Interpreted by Me EKG shows normal: sinus rhythm, axis (Normal), intervals (Normal), QRS complexes (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
[2023-05-01 23:03] VITALS: BP 175/83; PULSE 96; RESP 18; TEMP 98.5
[2023-05-01 23:25] LABS: ALT 28 U/L (4-49); AST 24 U/L (17-59); African American GFR (CKD) 84 (>60 ml/min/1.73 sqM); Albumin 2.9 g/dL (3.5-5.0); Alkaline Phosphatase 137 U/L (38-126); Anion Gap 8 mmol/L; Blood Urea Nitrogen 24 mg/dL (9-20); Calcium 8.2 mg/dL (8.4-10.2); Carbon Dioxide 26 mmol/L (22-30); Chloride 97 mmol/L (98-107); Glucose 284 mg/dL (74-99); Non-African American GFR(CKD) 73 (>60 ml/min/1.73 sqM); Sodium 131 mmol/L (137-145); Total Bilirubin 0.4 mg/dL (0.2-1.3)
[2023-05-01 23:26] LABS: Basophils % (A) 0 %; Eosinophils # (A) 0.2 k/uL (0-0.7); Eosinophils % (A) 1 %; HCT 38.3 % (39.0-53.0); HGB 11.8 gm/dL (13.0-17.5); Hypochromasia Slight; Lymphocytes # (A) 0.9 k/uL (1.0-4.8); Lymphocytes % (A) 6 %; MCHC 30.8 g/dL (31.0-37.0); Mean Platelet Volume 7.6; Monocytes # (A) 0.6 k/uL (0-1.0); Monocytes % (A) 5 %; Neutrophils % (A) 87 %; Platelet Count 512 k/uL (150-450); RBC 4.07 m/uL (4.30-5.90); RDW 14.1 % (11.5-15.5); WBC 13.8 k/uL (3.8-10.6)
== END 2023-05-02 00:52 | disposition home or self-care (01) ==
LOC: EC 22:31
DX: Z71.1 Person with feared health complaint in whom no diagnosis is made (principal); E11.9 Type 2 diabetes mellitus without complications; E78.5 Hyperlipidemia, unspecified; F32.A Depression, unspecified; I10 Essential (primary) hypertension; I25.10 Atherosclerotic heart disease of native coronary artery without angina pectoris; I25.2 Old myocardial infarction; K21.9 Gastro-esophageal reflux disease without esophagitis; E07.9 Disorder of thyroid, unspecified; Z79.4 Long term (current) use of insulin; Z79.82 Long term (current) use of aspirin; Z79.84 Long term (current) use of oral hypoglycemic drugs; Z79.890 Hormone replacement therapy; Z79.899 Other long term (current) drug therapy; Z87.891 Personal history of nicotine dependence
CPT/HCPCS: 36415; 80053; 85025; 93005; 99284

== ENCOUNTER 2023-06-03 09:29 | Emergency (ER) | payer MEDICARE, BC ==
[2023-06-03 09:50] LABS: Glucose,Whole Blood 516 mg/dL (70-110)
[2023-06-03] MEDS ORDERED: KETOROLAC 15 MG/ML 1 ML VIAL IVP STA (10:37)
[2023-06-03] MEDS ORDERED: MORPHINE SULFATE 2 MG/ML SYRINGE IVP STA ×2 (10:37→16:08)
[2023-06-03 10:49] LABS: Basophils # (A) 0.1 k/uL (0-0.2); Basophils % (A) 1 %; Eosinophils # (A) 0.1 k/uL (0-0.7); Eosinophils % (A) 1 %; HGB 10.6 gm/dL (13.0-17.5); Hypochromasia Marked; Lymphocytes # (A) 0.6 k/uL (1.0-4.8); Lymphocytes % (A) 7 %; MCH 29.5 pg (25.0-35.0); MCHC 31.1 g/dL (31.0-37.0); MCV 94.8 fL (80.0-100.0); Mean Platelet Volume 7.6; Monocytes # (A) 0.4 k/uL (0-1.0); Monocytes % (A) 5 %; Neutrophils # (A) 7.8 k/uL (1.3-7.7); Neutrophils % (A) 85 %; Platelet Count 336 k/uL (150-450); RBC 3.59 m/uL (4.30-5.90); RDW 14.9 % (11.5-15.5); WBC 9.1 k/uL (3.8-10.6)
[2023-06-03 10:50] LABS: Appearance,Urine Clear (Clear); Bilirubin,Urine Negative (Negative); Blood,Urine Negative (Negative); Color,Urine Light Yellow; Glucose,Urine (UA) 4+ (Negative); Leukocyte Esterase,Urine Negative (Negative); Nitrite,Urine Negative (Negative); Protein,Urine Negative (Negative); Urobilinogen,Urine <2.0 mg/dL (<2.0)
[2023-06-03 10:54] LABS: Ketones,Urine 2+ (Negative)
--- NOTE | 2023-06-03 10:57 | ED ---
Fall HPI - General Chief Complaint: Fall Stated Complaint: Fall on thinners Time Seen by Provider: 06/03/23 10:12 Source: patient, EMS, RN notes reviewed Mode of arrival: EMS Limitations: no limitations - History of Present Illness Initial Comments: This is a 72-year-old male who presents to the emergency department for frequent falls and weakness. Patient was discharged from [facility] 2 weeks ago for a hairline fracture in the right hip, which was nonsurgical. He has since been living with his sister. States that since being home, he has fallen over 5 times, including one time that was on the stairs. He has not hit his head or sustain any loss of consciousness. Patient is on blood thinners. However, he does complain of pain to the right hip, left foot, and left shoulder. Additionally, his blood sugar has been elevated. Today it was over 600 and yesterday was in the 500s. Denies any fevers, chills, sore throat, cough, dyspnea, chest pain, palpitations, abdominal pain, nausea, vomiting, diarrhea, back pain, or headaches. MD Complaint: fall - Related Data Home Medications Medication Instructions Recorded Confirmed Aspirin [Stanford Aspirin EC] 81 mg PO DAILY 03/13/19 04/20/23 Ferrous Sulfate [Iron (65 MG 325 mg PO DAILY 03/13/19 04/20/23 Elemental)] Isosorbide Mononitrate ER [Imdur] 30 mg PO DAILY 03/13/19 04/20/23 Levothyroxine Sodium [Synthroid] 137 mcg PO DAILY 03/13/19 04/20/23 Metoprolol Tartrate [Lopressor] 25 mg PO DAILY 03/13/19 04/20/23 Pantoprazole Sodium [Protonix] 40 mg PO DAILY 03/13/19 04/20/23 Insulin Aspart [NovoLOG Flexpen] See Protocol SQ AC-TID 03/30/21 04/20/23 Ammonium Lactate Cream [Lac-Hydrin 1 applic TOPICAL BID PRN 04/13/23 04/20/23 12% Cream] Atorvastatin [Lipitor] 80 mg PO DAILY 04/13/23 04/20/23 Empagliflozin [Jardiance] 25 mg PO DAILY 04/13/23 04/20/23 Escitalopram [Lexapro] 10 mg PO DAILY 04/13/23 04/20/23 Glucagon Emergency Kit 1 mg IM ONCE PRN 04/13/23 04/20/23 Solifenacin Succinate [Vesicare] 5 mg PO DAILY 04/13/23 04/20/23 metFORMIN HCL ER [Glucophage XR] 1,000 mg PO W/SUPPER 04/13/23 04/20/23 Previous Rx's Medication Instructions Recorded Gabapentin [Neurontin] 300 mg PO TID 3 Days #6 cap 04/25/23 HYDROcodone/APAP 5-325MG [[place] 1 each PO Q4HR PRN #18 tab 04/25/23 5-325] Insulin Detemir (Levemir) [Levemir] 10 unit SQ HS each 04/25/23 Insulin Detemir (Levemir) [Levemir] 15 unit SQ DAILY@0700 each 04/25/23 Allergies Allergy/AdvReac Type Severity Reaction Status Date / Time No Known Allergies Allergy Verified 04/20/23 20:56 Review of Systems ROS Statement: Those systems with pertinent positive or pertinent negative responses have been documented in the HPI. ROS Other: All systems not noted in ROS Statement are negative. Past Medical History Past Medical History: Coronary Artery Disease (CAD), Diabetes Mellitus, GERD/Reflux, Hyperlipidemia, Hypertension, Myocardial Infarction ([place]), Thyroid Disorder Additional Past Medical History / Comment(s): neuropathy Last Myocardial Infarction Date:: unknown History of Any Multi-Drug Resistant Organisms: None Reported Past Surgical History: Appendectomy, Coronary Bypass/CABG, Heart Catheterization With Stent Additional Past Surgical History / Comment(s): Sister relays, "He had peripheral artery surgery too." Past Anesthesia/Blood Transfusion Reactions: No Reported Reaction Date of Last Stent Placement:: unknown Past Psychological History: Depression Smoking Status: Former smoker Past Alcohol Use History: Daily Past Drug Use History: Marijuana - Past Family History Father Family Medical History: Congestive Heart Failure (CHF) Mother Additional Family Medical History / Comment(s): of old age. General Exam Limitations: no limitations General appearance: alert, in no apparent distress Head exam: Present: atraumatic, normocephalic, normal inspection Respiratory exam: Present: normal lung sounds bilaterally. Absent: respiratory distress, wheezes, rales, rhonchi, stridor Cardiovascular Exam: Present: regular rate, normal rhythm, normal heart sounds. Absent: systolic murmur, diastolic murmur, rubs, gallop, clicks Extremities exam: Present: normal inspection, other (Mild tenderness to palpation over the left heel. Full active and passive range of motion. 2+ DP and PT pulses. Capillary refill less than 1 second.) Left Shoulder Exam: Present: normal inspection, full ROM. Absent: tenderness Right Hip exam: Present: normal inspection, tenderness (Right greater trochanter) Neurological exam: Present: alert, oriented X3, CN II-XII intact Psychiatric exam: Present: normal affect, normal mood Skin exam: Present: warm, dry, intact, normal color. Absent: rash Course Vital Signs 06/03/23 06/03/23 06/03/23 10:40 15:18 17:15 Temperature 97.8 F Pulse Rate 64 64 66 Respiratory 20 15 20 Rate Blood Pressure 189/71 139/71 168/70 O2 Sat by Pulse 98 97 97 Oximetry Medical Decision Making - Medical Decision Making This is a 72-year-old male who presents to the emergency department for frequent falls and hyperglycemia. Was pt. sent in by a medical professional or institution? @ -No Did you speak to anyone other than the patient for history? @ -No Did you review nursing and triage notes? @ -Yes, and I agree, it is accurate with regards to the patient's symptoms. Were old charts reviewed? @ -No Differential Diagnosis? @ -Differential Hyperglycemia: DKA, HHS, illness, inadequate medication, this is not meant to be an all- inclusive list. EKG interpreted by me (3pts min.)? @ -EKG interpreted by me demonstrating the following: Sinus rhythm. Ventricular rate 66 bpm, MT interval 174 ms, QRS duration 85 ms, QTC 421. X-rays interpreted by me (1pt min.)? @ -X-ray of the chest, right hip, left shoulder, and left foot obtained. My in terpretation identifies a lucency through the right greater trochanter without any other acute process on any of the other x-rays. CT interpreted by me (1pt min.)? @ -Not obtained U/S interpreted by me (1pt. min.)? @ -Not obtained What testing was considered but not performed? (CT, X-rays, U/S, labs)? Why? @ -None What meds were considered but not given? Why? @ -None Did you discuss the management of the patient with other professionals? @ -No Did you reconcile home meds? @ -No Was smoking cessation discussed for >3mins.? @ -No Was critical care preformed (if so, how long)? @ -No Were there social determinants of health that impacted care today? How? (Homelessness, low income, unemployed, alcoholism, drug addiction, transportation, low edu. Level, literacy, decrease access to med. care, fci, rehab)? @ -No Was there de-escalation of care discussed even if they declined? (Discuss DNR or withdrawal of care, Hospice)? @ -No What co-morbidities impacted this encounter? (DM, HTN, Smoking, COPD, CAD, Cancer, CVA, Hep., AIDS, mental health diagnosis, sleep apnea, morbid obesity)? @ -DM, Was patient admitted / discharged? @ -Discharged. Lab work obtained revealing hyperglycemia as reported by the patient at home. Patient does not meet DKA criteria, as he is acetone negative. He is mildly hyperkalemic, which has been an issue for the patient in the past as well. X-rays of the chest, right hip, left shoulder, and left foot obt ained. The avulsion fracture of the right greater trochanter was redemonstrated without any other acute processes identified. He does have multiple degenerative changes noted. His pain was well controlled in the emergency department. He was given 8 units of insulin, however he was apparently eating at the same time, and thus recheck of blood sugar was not improved. I did have an in-depth discussion with the patient regarding his frequent falls and ability to care for himself. He states that he lives with his sister who is comfortable providing care for him at this time. Patient's sister is in agreement with this as well and they do not feel the need for him to return to rehab at this time. He is instructed to increase his Levemir dose by 5 units and to monitor his blood sugar closely. Also discussed reducing intake of carbohydrates and sugar. He is also advised of the need to have very close follow-up with his primary care provider regarding his blood sugar and to have his potassium rechecked. He has [place] available to him at home, which he will continue to take for pain relief. Patient otherwise discharged home in stable condition with his sister. Undiagnosed new problem with uncertain prognosis? @ -None Drug Therapy requiring intensive monitoring for toxicity (Heparin, Nitro, Insulin, Cardizem)? @ -None Were any procedures done? @ -None Diagnosis/symptom? @ -Frequent falls, hyperglycemia, hyperkalemia Acute, or Chronic, or Acute on Chronic? @ -Acute Uncomplicated (without systemic symptoms) or Complicated (systemic symptoms)? @ -Uncomplicated Side effects of treatment? @ -None Exacerbation, Progression, or Severe Exacerbation] @ -Not applicable Poses a threat to life or bodily function? @ -No Return precautions reviewed in depth, the patient is instructed to return to the emergency department with any new, worsening, or concerning symptoms. Patient verbalized understanding. This case was discussed in detail with the attending ED physician, Dr. Lewis. Presentation, findings, and treatment plan discussed in detail as well. - Lab Data Result diagrams: 06/03/23 10:30 06/03/23 10:30 Lab Results 06/03/23 06/03/23 06/03/23 Range/Units 09:48 10:30 10:30 WBC 9.1 (3.8-10.6) k/uL RBC 3.59 L (4.30-5.90) m/uL Hgb 10.6 L (13.0-17.5) gm/dL Hct 34.0 L (39.0-53.0) % MCV 94.8 (80.0-100.0) fL MCH 29.5 (25.0-35.0) pg MCHC 31.1 (31.0-37.0) g/dL RDW 14.9 (11.5-15.5) % Plt Count 336 (150-450) k/uL MPV 7.6 Neutrophils % 85 % Lymphocytes % 7 % Monocytes % 5 % Eosinophils % 1 % Basophils % 1 % Neutrophils # 7.8 H (1.3-7.7) k/uL Lymphocytes # 0.6 L (1.0-4.8) k/uL Monocytes # 0.4 (0-1.0) k/uL Eosinophils # 0.1 (0-0.7) k/uL Basophils # 0.1 (0-0.2) k/uL Hypochromasia Marked Sodium (137-145) mmol/L Potassium (3.5-5.1) mmol/L Chloride (98-107) mmol/L Carbon Dioxide (22-30) mmol/L Anion Gap mmol/L BUN (9-20) mg/dL Creatinine (0.66-1.25) mg/dL Est GFR (CKD-EPI)AfAm (>60 ml/min/1.73 sqM) Est GFR (CKD-EPI)NonAf (>60 ml/min/1.73 sqM) Glucose (74-99) mg/dL POC Glucose (mg/dL) 516 H (70-110) mg/dL POC Glu Buck Presser ID Cami Infante Plasma Lactic Acid Selvin (0.7-2.0) mmol/L Calcium (8.4-10.2) mg/dL Magnesium (1.6-2.3) mg/dL Total Bilirubin (0.2-1.3) mg/dL AST (17-59) U/L ALT (4-49) U/L Alkaline Phosphatase (38-126) U/L Troponin I (0.000-0.034) ng/mL Total Protein (6.3-8.2) g/dL Albumin (3.5-5.0) g/dL Urine Color Light Yellow Urine Appearance Clear (Clear) Urine pH 6.0 (5.0-8.0) Ur Specific [place] 1.020 (1.001-1.035) Urine Protein Negative (Negative) Urine Glucose (UA) 4+ H (Negative) Urine Ketones 2+ H (Negative) Urine Blood Negative (Negative) Urine Nitrite Negative (Negative) Urine Bilirubin Negative (Negative) Urine Urobilinogen <2.0 (<2.0) mg/dL Ur Leukocyte Esterase Negative (Negative) Acetone, Qual (Negative) 06/03/23 06/03/23 06/03/23 Range/Units 10:30 10:30 10:30 WBC (3.8-10.6) k/uL RBC (4.30-5.90) m/uL Hgb (13.0-17.5) gm/dL Hct (39.0-53.0) % MCV (80.0-100.0) fL MCH (25.0-35.0) pg MCHC (31.0-37.0) g/dL RDW (11.5-15.5) % Plt Count (150-450) k/uL MPV Neutrophils % % Lymphocytes % % Monocytes % % Eosinophils % % Basophils % % Neutrophils # (1.3-7.7) k/uL Lymphocytes # (1.0-4.8) k/uL Monocytes # (0-1.0) k/uL Eosinophils # (0-0.7) k/uL Basophils # (0-0.2) k/uL Hypochromasia Sodium 133 L (137-145) mmol/L Potassium 5.4 H (3.5-5.1) mmol/L Chloride 99 (98-107) mmol/L Carbon Dioxide 19 L (22-30) mmol/L Anion Gap 15 mmol/L BUN 37 H (9-20) mg/dL Creatinine 0.94 (0.66-1.25) mg/dL Est GFR (CKD-EPI)AfAm >90 (>60 ml/min/1.73 sqM) Est GFR (CKD-EPI)NonAf 81 (>60 ml/min/1.73 sqM) Glucose 452 H (74-99) mg/dL POC Glucose (mg/dL) (70-110) mg/dL POC Glu Buck Presser ID Plasma Lactic Acid Selvin 0.9 (0.7-2.0) mmol/L Calcium 8.3 L (8.4-10.2) mg/dL Magnesium 2.2 (1.6-2.3) mg/dL Total Bilirubin 0.5 (0.2-1.3) mg/dL AST 23 (17-59) U/L ALT 24 (4-49) U/L Alkaline Phosphatase 156 H (38-126) U/L Troponin I <0.012 (0.000-0.034) ng/mL Total Protein 7.5 (6.3-8.2) g/dL Albumin 3.1 L (3.5-5.0) g/dL Urine Color Urine Appearance (Clear) Urine pH (5.0-8.0) Ur Specific [place] (1.001-1.035) Urine Protein (Negative) Urine Glucose (UA) (Negative) Urine Ketones (Negative) Urine Blood (Negative) Urine Nitrite (Negative) Urine Bilirubin (Negative) Urine Urobilinogen (<2.0) mg/dL Ur Leukocyte Esterase (Negative) Acetone, Qual Negative (Negative) 06/03/23 06/03/23 Range/Units 14:16 15:57 WBC (3.8-10.6) k/uL RBC (4.30-5.90) m/uL Hgb (13.0-17.5) gm/dL Hct (39.0-53.0) % MCV (80.0-100.0) fL MCH (25.0-35.0) pg MCHC (31.0-37.0) g/dL RDW (11.5-15.5) % Plt Count (150-450) k/uL MPV Neutrophils % % Lymphocytes % % Monocytes % % Eosinophils % % Basophils % % Neutrophils # (1.3-7.7) k/uL Lymphocytes # (1.0-4.8) k/uL Monocytes # (0-1.0) k/uL Eosinophils # (0-0.7) k/uL Basophils # (0-0.2) k/uL Hypochromasia Sodium (137-145) mmol/L Potassium (3.5-5.1) mmol/L Chloride (98-107) mmol/L Carbon Dioxide (22-30) mmol/L Anion Gap mmol/L BUN (9-20) mg/dL Creatinine (0.66-1.25) mg/dL Est GFR (CKD-EPI)AfAm (>60 ml/min/1.73 sqM) Est GFR (CKD-EPI)NonAf (>60 ml/min/1.73 sqM) Glucose (74-99) mg/dL POC Glucose (mg/dL) 437 H 436 H (70-110) mg/dL POC Glu Buck Presser Ashleigh Salmon Jessica Plasma Lactic Acid Selvin (0.7-2.0) mmol/L Calcium (8.4-10.2) mg/dL Magnesium (1.6-2.3) mg/dL Total Bilirubin (0.2-1.3) mg/dL AST (17-59) U/L ALT (4-49) U/L Alkaline Phosphatase (38-126) U/L Troponin I (0.000-0.034) ng/mL Total Protein (6.3-8.2) g/dL Albumin (3.5-5.0) g/dL Urine Color Urine Appearance (Clear) Urine pH (5.0-8.0) Ur Specific [place] (1.001-1.035) Urine Protein (Negative) Urine Glucose (UA) (Negative) Urine Ketones (Negative) Urine Blood (Negative) Urine Nitrite (Negative) Urine Bilirubin (Negative) Urine Urobilinogen (<2.0) mg/dL Ur Leukocyte Esterase (Negative) Acetone, Qual (Negative) - Radiology Data Radiology results: report reviewed, image reviewed Disposition Clinical Impression: Frequent falls, Hyperglycemia due to diabetes mellitus, Hyperkalemia Disposition: HOME SELF-CARE Instructions (If sedation given, give patient instructions): Fall Prevention for Older Adults (ED), Diabetic Hyperglycemia (ED) Additional Instructions: Return to the emergency department with any new, worsening, or concerning symptoms. Take Tylenol as needed for pain relief. You can increase your L evemir by 5 units due to your elevated blood sugar. Make sure you continue to monitor your sugar closely, and if it becomes too low, go back to your original dose. Follow up with your primary care provider in 1-2 days. Is patient prescribed a controlled substance at d/c from ED?: No Referrals: Mika Bell DO [Primary Care Provider] - 1-2 days
[2023-06-03 11:06] LABS: ALT 24 U/L (4-49); AST 23 U/L (17-59); African American GFR (CKD) >90 (>60 ml/min/1.73 sqM); Albumin 3.1 g/dL (3.5-5.0); Alkaline Phosphatase 156 U/L (38-126); Anion Gap 15 mmol/L; Blood Urea Nitrogen 37 mg/dL (9-20); Calcium 8.3 mg/dL (8.4-10.2); Carbon Dioxide 19 mmol/L (22-30); Chloride 99 mmol/L (98-107); Glucose 452 mg/dL (74-99); Magnesium 2.2 mg/dL (1.6-2.3); Non-African American GFR(CKD) 81 (>60 ml/min/1.73 sqM); Potassium 5.4 mmol/L (3.5-5.1); Sodium 133 mmol/L (137-145); Total Bilirubin 0.5 mg/dL (0.2-1.3); Total Protein 7.5 g/dL (6.3-8.2)
[2023-06-03] MEDS ORDERED: SODIUM CHLORIDE 0.9% 1,000 ML IV STA (11:12)
--- NOTE | 2023-06-03 11:57 | XR ---
EXAMINATION TYPE: XR shoulder complete LT DATE OF EXAM: 06/03/2023 COMPARISON: NONE HISTORY: Pain TECHNIQUE: Shoulder examined in 3 projections. FINDINGS: The humeral head articulates with the glenoid. The acromio-clavicular junction is normal. There is narrowing of the acromiohumeral space which can b e related to chronic rotator cuff tear. Some elevation of the humeral head in relation to the glenoid may be present. No acute fractures or dislocations are evident. A follow up study can be performed 7-10 days from acute trauma for continued pain. MRI can be perfor med if soft tissue evaluation would be of benefit. IMPRESSION: 1. No acute osseous left shoulder abnormality. 2. Chronic rotator cuff tears not excluded. MRI can be performed as clinically indicated
--- NOTE | 2023-06-03 12:38 | XR ---
EXAMINATION TYPE: XR foot complete LT DATE OF EXAM: 06/03/2023 COMPARISON: None HISTORY: Fall, pain TECHNIQUE: 3 view left foot FINDINGS: Note is made of prior open reduction internal fixation distal fibula. No acute fracture or dislocation is evident within the foot. Joint spaces and mild degenerative pena es. Soft tissues are normal. Vascular calcification foot. Follow-up studies can be performed 7-10 day s from acute trauma for continued pain. IMPRESSION: 1. No acute osseous abnormality left foot
--- NOTE | 2023-06-03 12:45 | XR ---
EXAMINATION TYPE: XR Hip Complete RT DATE OF EXAM: 06/03/2023 COMPARISON: CT right hip 04/18/2023 HISTORY: Pain after fall TECHNIQUE: 2 view right hip FINDINGS: Femoral head articulates with the acetabulum. Cam deformity appears to be present. There is a lucency within the greater trochanter corresponding to prior known greater trochanter avul chandrika. There is some progression of lucency within the greater trochanter Vascular calcification is present. No additional fractures evident. IMPRESSION: 1. Subacute avulsion of the greater trochanter. 2. New fracture is not identified.
--- NOTE | 2023-06-03 12:52 | XR ---
EXAMINATION TYPE: XR chest 1V DATE OF EXAM: 06/03/2023 COMPARISON: 04/13/2023 INDICATION: Pain after fall. TECHNIQUE: Single frontal view of the chest is obtained. FINDINGS: The heart size is normal. The pulmonary vasculature is normal. The lungs are clear. No pneumothorax is evident. Sternotomy wires are within the midline. IMPRESSION: 1. No acute pulmonary process.
[2023-06-03] MEDS ORDERED: INSULIN REGULAR 100 UNIT/ML VIAL (IV) IV ONE (13:03)
[2023-06-03 14:18] LABS: Glucose,Whole Blood 437 mg/dL (70-110)
[2023-06-03 15:59] LABS: Glucose,Whole Blood 436 mg/dL (70-110)
[2023-06-03] MEDS ORDERED: IBUPROFEN 600 MG STARTER PACK 4 TAB BTL PO STA (16:04)
[2023-06-03] MEDS ORDERED: ACET/COD 300 MG/30 MG STARTER PACK 6 TAB BTL PO STA (16:04)
[2023-06-03 17:17] VITALS: BP 168/70; PULSE 66; RESP 20; TEMP 97.8
== END 2023-06-03 17:15 | disposition home or self-care (01) ==
LOC: EC 09:29
DX: R35.0 Frequency of micturition (principal); E11.65 Type 2 diabetes mellitus with hyperglycemia; E87.5 Hyperkalemia; E78.5 Hyperlipidemia, unspecified; F32.A Depression, unspecified; I10 Essential (primary) hypertension; I25.10 Atherosclerotic heart disease of native coronary artery without angina pectoris; I25.2 Old myocardial infarction; K21.9 Gastro-esophageal reflux disease without esophagitis; E07.9 Disorder of thyroid, unspecified; F12.90 Cannabis use, unspecified, uncomplicated; Z87.891 Personal history of nicotine dependence; Z79.01 Long term (current) use of anticoagulants; Z79.4 Long term (current) use of insulin; Z79.82 Long term (current) use of aspirin; Z79.84 Long term (current) use of oral hypoglycemic drugs; Z79.890 Hormone replacement therapy; Z79.899 Other long term (current) drug therapy; W18.39XA Other fall on same level, initial encounter
CPT/HCPCS: 36415; 93005; 80053; 82009; 83605; 83735; 84484; 85025; 81003; 73030; 73502; 73630; 71045; 99285; 96374; 96375; 96376; 96361; J2270; J1885

== ENCOUNTER 2023-06-06 06:21 | Inpatient (IN) | payer MEDICARE, BC ==
[2023-06-06] MEDS ORDERED: SODIUM CHLORIDE 0.9% 1,000 ML IV STA (07:34)
--- NOTE | 2023-06-06 07:40 | ED ---
General Adult HPI - General Chief complaint: Altered Mental Status Stated complaint: Weakness Time Seen by Provider: 06/06/23 06:45 Source: patient, EMS, RN notes reviewed, old records reviewed Mode of arrival: EMS Limitations: altered mental status - History of Present Illness Initial comments: This is a 72-year-old male who is a very poor historian and has a severe stutter. Patient stated he did not fall today he stated he fell a few days ago was in the emergency department. Patient states she's been falling quite a bit in the last 6 weeks. Patient states about a year ago he spent about 9 months senior living because of the diabetic coma he states when he got out about 6 weeks or so ago he was trying to get on a bike ride outside he fell off the bike was seen in the hospital For 4 days and then went to a senior living for about 30 days. Patient states since then he's been home and did fall a few days ago and was here. Today he came in because she was sleeping on the couch and was unable to get up off the couch for about 8 hours because she was too weak states she's been getting progressively weaker over the last couple of months patient denies headache patient denies numbness weakness. Patient denies any chest pain difficulty breathing shortness of breath per patient has any fever chills or cough per patient denies abdominal pain patient denies nausea vomiting diarrhea. - Related Data Home Medications Medication Instructions Recorded Confirmed Aspirin [[place] Aspirin EC] 81 mg PO DAILY 03/13/19 04/20/23 Ferrous Sulfate [Iron (65 MG 325 mg PO DAILY 03/13/19 04/20/23 Elemental)] Isosorbide Mononitrate ER [Imdur] 30 mg PO DAILY 03/13/19 04/20/23 Levothyroxine Sodium [Synthroid] 137 mcg PO DAILY 03/13/19 04/20/23 Metoprolol Tartrate [Lopressor] 25 mg PO DAILY 03/13/19 04/20/23 Pantoprazole Sodium [Protonix] 40 mg PO DAILY 03/13/19 04/20/23 Insulin Aspart [NovoLOG Flexpen] See Protocol SQ AC-TID 03/30/21 04/20/23 Ammonium Lactate Cream [Lac-Hydrin 1 applic TOPICAL BID PRN 04/13/23 04/20/23 12% Cream] Atorvastatin [Lipitor] 80 mg PO DAILY 04/13/23 04/20/23 Empagliflozin [Jardiance] 25 mg PO DAILY 04/13/23 04/20/23 Escitalopram [Lexapro] 10 mg PO DAILY 04/13/23 04/20/23 Glucagon Emergency Kit 1 mg IM ONCE PRN 04/13/23 04/20/23 Solifenacin Succinate [Vesicare] 5 mg PO DAILY 04/13/23 04/20/23 metFORMIN HCL ER [Glucophage XR] 1,000 mg PO W/SUPPER 04/13/23 04/20/23 Previous Rx's Medication Instructions Recorded Gabapentin [Neurontin] 300 mg PO TID 3 Days #6 cap 04/25/23 HYDROcodone/APAP 5-325MG [[place] 1 each PO Q4HR PRN #18 tab 04/25/23 5-325] Insulin Detemir (Levemir) [Levemir] 10 unit SQ HS each 04/25/23 Insulin Detemir (Levemir) [Levemir] 15 unit SQ DAILY@0700 each 04/25/23 Allergies Allergy/AdvReac Type Severity Reaction Status Date / Time No Known Allergies Allergy Verified 04/20/23 20:56 Review of Systems ROS Statement: Those systems with pertinent positive or pertinent negative responses have been documented in the HPI. ROS Other: All systems not noted in ROS Statement are negative. Past Medical History Past Medical History: Coronary Artery Disease (CAD), Diabetes Mellitus, GERD/Reflux, Hyperlipidemia, Hypertension, Myocardial Infarction (DE), Thyroid Disorder Additional Past Medical History / Comment(s): neuropathy Last Myocardial Infarction Date:: unknown History of Any Multi-Drug Resistant Organisms: None Reported Past Surgical History: Appendectomy, Coronary Bypass/CABG, Heart Catheterization With Stent Additional Past Surgical History / Comment(s): Sister relays, "He had peripheral artery surgery too." Past Anesthesia/Blood Transfusion Reactions: No Reported Reaction Date of Last Stent Placement:: unknown Past Psychological History: Depression Smoking Status: Former smoker Past Alcohol Use History: Daily Past Drug Use History: Marijuana - Past Family History Father Family Medical History: Congestive Heart Failure (CHF) Mother Additional Family Medical History / Comment(s): of old age. General Exam - General Exam Comments Initial Comments: GENERAL: Patient is well-developed and well-nourished. Patient is nontoxic and well- hydrated and is in no acute distress. ENT: Neck is soft and supple. No significant lymphadenopathy is noted. Oropharynx is clear. Moist mucous membranes. Neck has full range of motion without eliciting any pain. EYES: The sclera were anicteric and conjunctiva were pink and moist. Extraocular movements were intact and pupils were equal round and reactive to light. Eyelids were unremarkable. PULMONARY: Unlabored respirations. Good breath sounds bilaterally. No audible rales rhonchi or wheezing was noted. CARDIOVASCULAR: There is a regular rate and rhythm without any murmurs gallops or rubs. ABDOMEN: Soft and nontender with normal bowel sounds. SKIN: Skin is clear with no lesions or rashes and otherwise unremarkable. NEUROLOGIC: Patient is alert and oriented x3. Cranial nerves II through XII are grossly intact. Motor and sensory are also intact. Patient has a significant stutter which she states is been long-standing. Symmetrical smile. MUSCULOSKELETAL: Patient is pain on the left shoulder. LYMPHATICS: No significant lymphadenopathy is noted PSYCHIATRIC: Normal psychiatric evaluation. Limitations: altered mental status Course Vital Signs 06/06/23 06/06/23 06/06/23 06:22 07:49 09:18 Temperature 98.2 F Pulse Rate 71 61 70 Respiratory 18 18 18 Rate Blood Pressure 190/87 174/68 171/67 O2 Sat by Pulse 97 97 95 Oximetry Medical Decision Making - Medical Decision Making EKG is interpreted by myself shows a sinus rhythm at 64 bpm HI interval 164 QRS is 85 Q-T intervals 423 QTC is 433. Patient's EKG shows no ST segment elevation or depression. Was pt. sent in by a medical professional or institution (, [facility], AVIATION CONSULTANT, urgent care, hospital, or senior living...) When possible be specific @ -No Did you speak to anyone other than the patient for history (EMS, parent, family, police, friend...)? What history was obtained from this source @ -No Did you review nursing and triage notes (agree or disagree)? Why? @ -I reviewed and agree with nursing and triage notes Were old charts reviewed (outside hosp., previous admission, EMS record, old EKG, old radiological studies, urgent care reports/EKG's, senior living records)? Report findings @ -I reviewed per chart per laboratory per radiological studies in this patient Differential Diagnosis (chest pain, altered mental status, abdominal pain women, abdominal pain men, vaginal bleeding, weakness, fever, dyspnea, syncope, headac he, dizziness, GI bleed, back pain, seizure, CVA, palpatations, mental health, musculoskeletal)? @ -Differential Weakness: Hypoglycemia, shock, sepsis, hyponatremia, anemia, infection, DE, ETOH, adverse medicine reaction, overdose, stroke, this is not meant to be an all-inclusive list. EKG interpreted by me (3pts min.). @ -As above X-rays interpreted by me (1pt min.). @ -Chest x-ray showed no acute abnormality CT interpreted by me (1pt min.). @ -None done U/S interpreted by me (1pt. min.). @ -None done What testing was considered but not performed or refused? (CT, X-rays, U/S, labs)? Why? @ -None What meds were considered but not given or refused? Why? @ -None Did you discuss the management of the patient with other professionals (professionals i.e. , PA, AVIATION CONSULTANT, lab, RT, psych nurse, director social welfare, decorating consultant, teacher, customs patrol officer, mattress spring encaser)? Give summary @ -I spoke with Dr. Parks he agreed to admit the patient Was smoking cessation discussed for >3mins.? @ -No Was critical care preformed (if so, how long)? @ -No Were there social determinants of health that impacted care today? How? (Homelessness, low income, unemployed, alcoholism, drug addiction, transportation, low edu. Level, literacy, decrease access to med. care, [place] [facility], rehab)? @ -No Was there de-escalation of care discussed even if they declined (Discuss DNR or withdrawal of care, Hospice)? DNR status @ -No What co-morbidities impacted this encounter? (DM, HTN, Smoking, COPD, CAD, Cancer, CVA, ARF, Chemo, Hep., AIDS, mental health diagnosis, sleep apnea, m orbid obesity)? @ -None Was patient admitted / discharged? Hospital course, mention meds given and route, prescriptions, significant lab abnormalities, going to OR and other pertinent info. @ -Patient had a urinary tract infection which could be coming to his weakness. I put the patient on antibiotics emergency department I'll continue those antibiotics on the floor. I spoke with Dr. Parks he did agree to admit the patient minute the patient wrote admitting orders Undiagnosed new problem with uncertain prognosis? @ -No Drug Therapy requiring intensive monitoring for toxicity (Heparin, Nitro, Insulin, Cardizem)? @ -No Were any procedures done? @ -No Diagnosis/symptom? @ -Urinary tract infection Acute, or Chronic, or Acute on Chronic? @ -Acute Uncomplicated (without systemic symptoms) or Complicated (systemic symptoms)? @ -Complicated Side effects of treatment? @ -No Exacerbation, Progression, or Severe Exacerbation? @ -No Poses a threat to life or bodily function? How? (Chest pain, [place], DE, pneumonia, PE, COPD, DKA, ARF, appy, cholecystitis, CVA, Diverticulitis, Homicidal, Suicidal, threat to staff... and all critical care pts) @ -Yes this could lead to sepsis and end organ dysfunction Diagnosis/symptom? @ -Generalized weakness Acute, or Chronic, or Acute on Chronic? @ -Acute Uncomplicated (without systemic symptoms) or Complicated (systemic symptoms)? @ -Complicated Side effects of treatment? @ -none Exacerbation, Progression, or Severe Exacerbation] @ -no Poses a threat to life or bodily function? @ -no - Lab Data Result diagrams: 06/06/23 07:42 06/06/23 07:42 Lab Results 06/06/23 06/06/23 06/06/23 Range/Units 07:42 07:42 07:42 WBC 8.8 (3.8-10.6) k/uL RBC 3.79 L (4.30-5.90) m/uL Hgb 11.1 L (13.0-17.5) gm/dL Hct 35.4 L (39.0-53.0) % MCV 93.4 (80.0-100.0) fL MCH 29.4 (25.0-35.0) pg MCHC 31.5 (31.0-37.0) g/dL RDW 14.8 (11.5-15.5) % Plt Count 327 (150-450) k/uL MPV 8.8 Neutrophils % 81 % Lymphocytes % 9 % Monocytes % 6 % Eosinophils % 2 % Basophils % 0 % Neutrophils # 7.1 (1.3-7.7) k/uL Lymphocytes # 0.8 L (1.0-4.8) k/uL Monocytes # 0.5 (0-1.0) k/uL Eosinophils # 0.1 (0-0.7) k/uL Basophils # 0.0 (0-0.2) k/uL Hypochromasia Moderate PT 10.4 (9.0-12.0) sec INR 1.0 (<1.2) APTT 23.2 (22.0-30.0) sec Sodium 135 L (137-145) mmol/L Potassium 5.3 H (3.5-5.1) mmol/L Chloride 103 (98-107) mmol/L Carbon Dioxide 22 (22-30) mmol/L Anion Gap 10 mmol/L BUN 25 H (9-20) mg/dL Creatinine 0.67 (0.66-1.25) mg/dL Est GFR (CKD-EPI)AfAm >90 (>60 ml/min/1.73 sqM) Est GFR (CKD-EPI)NonAf >90 (>60 ml/min/1.73 sqM) Glucose 300 H (74-99) mg/dL Plasma Lactic Acid Selvin (0.7-2.0) mmol/L Calcium 8.4 (8.4-10.2) mg/dL Magnesium 2.0 (1.6-2.3) mg/dL Total Bilirubin 0.6 (0.2-1.3) mg/dL AST 27 (17-59) U/L ALT 23 (4-49) U/L Alkaline Phosphatase 138 H (38-126) U/L Troponin I (0.000-0.034) ng/mL Total Protein 7.4 (6.3-8.2) g/dL Albumin 2.9 L (3.5-5.0) g/dL Urine Color Urine Appearance (Clear) Urine pH (5.0-8.0) Ur Specific Skipwith (1.001-1.035) Urine Protein (Negative) Urine Glucose (UA) (Negative) Urine Ketones (Negative) Urine Blood (Negative) Urine Nitrite (Negative) Urine Bilirubin (Negative) Urine Urobilinogen (<2.0) mg/dL Ur Leukocyte Esterase (Negative) Urine RBC (0-5) /hpf Urine WBC (0-5) /hpf Urine WBC Clumps (None) /hpf Ur Squamous Epith Cells (0-4) /hpf Urine Bacteria (None) /hpf Urine Mucus (None) /hpf 06/06/23 06/06/23 06/06/23 Range/Units 07:42 07:42 09:09 WBC (3.8-10.6) k/uL RBC (4.30-5.90) m/uL Hgb (13.0-17.5) gm/dL Hct (39.0-53.0) % MCV (80.0-100.0) fL MCH (25.0-35.0) pg MCHC (31.0-37.0) g/dL RDW (11.5-15.5) % Plt Count (150-450) k/uL MPV Neutrophils % % Lymphocytes % % Monocytes % % Eosinophils % % Basophils % % Neutrophils # (1.3-7.7) k/uL Lymphocytes # (1.0-4.8) k/uL Monocytes # (0-1.0) k/uL Eosinophils # (0-0.7) k/uL Basophils # (0-0.2) k/uL Hypochromasia PT (9.0-12.0) sec INR (<1.2) APTT (22.0-30.0) sec Sodium (137-145) mmol/L Potassium (3.5-5.1) mmol/L Chloride (98-107) mmol/L Carbon Dioxide (22-30) mmol/L Anion Gap mmol/L BUN (9-20) mg/dL Creatinine (0.66-1.25) mg/dL Est GFR (CKD-EPI)AfAm (>60 ml/min/1.73 sqM) Est GFR (CKD-EPI)NonAf (>60 ml/min/1.73 sqM) Glucose (74-99) mg/dL Plasma Lactic Acid Selvin 1.4 (0.7-2.0) mmol/L Calcium (8.4-10.2) mg/dL Magnesium (1.6-2.3) mg/dL Total Bilirubin (0.2-1.3) mg/dL AST (17-59) U/L ALT (4-49) U/L Alkaline Phosphatase (38-126) U/L Troponin I 0.013 (0.000-0.034) ng/mL Total Protein (6.3-8.2) g/dL Albumin (3.5-5.0) g/dL Urine Color Light Yellow Urine Appearance Cloudy (Clear) Urine pH 6.0 (5.0-8.0) Ur Specific [place] 1.017 (1.001-1.035) Urine Protein 1+ H (Negative) Urine Glucose (UA) 4+ H (Negative) Urine Ketones 1+ H (Negative) Urine Blood Trace H (Negative) Urine Nitrite Negative (Negative) Urine Bilirubin Negative (Negative) Urine Urobilinogen <2.0 (<2.0) mg/dL Ur Leukocyte Esterase Large H (Negative) Urine RBC 8 H (0-5) /hpf Urine WBC >182 H (0-5) /hpf Urine WBC Clumps Occasional H (None) /hpf Ur Squamous Epith Cells <1 (0-4) /hpf Urine Bacteria Rare H (None) /hpf Urine Mucus Rare H (None) /hpf Disposition Clinical Impression: Urinary tract infection, Generalized weakness Disposition: ADMITTED IP TO THIS HOSP Referrals: Mika Bell DO [Primary Care Provider] - 1-2 days Time of Disposition: 10:05
--- NOTE | 2023-06-06 07:43 | CT ---
EXAMINATION TYPE: CT brain [place] wo con DATE OF EXAM: 06/06/2023 COMPARISON: 04/18/2023 HISTORY: Fall CT DLP: [address] of the brain was performed. The ventricles, basal cisterns and sulci overlying the cerebral convexities demonstrate mild enlargem ent. There is no evidence for intracranial hemorrhage or sulcal effacement. There is decreased attenuatio n about the periventricular white matter and deep white matter of both cerebral hemispheres, compatib le with chronic small vessel ischemia. No mass effects are seen. If symptoms persist consider MRI. Osseous calvarium is intact. IMPRESSION: 1. Age related atrophic and chronic small vessel ischemic change without acute intracranial process seen at this time. CT Cervical Spine: Unenhanced CT of the cervical spine was performed with bone and soft tissue window settings submitted . Coronal and sagittal reconstruction is obtained. There is normal alignment and prevertebral soft tissues. No evidence for acute cervical fracture . Scattered degenerative disc disease and spondylosis. Biapical scarring. IMPRESSION: 1. No evidence for acute fracture or subluxation of the cervical spine.
[2023-06-06 08:00] LABS: Basophils % (A) 0 %; Eosinophils # (A) 0.1 k/uL (0-0.7); Eosinophils % (A) 2 %; HCT 35.4 % (39.0-53.0); HGB 11.1 gm/dL (13.0-17.5); Hypochromasia Moderate; Lymphocytes # (A) 0.8 k/uL (1.0-4.8); Lymphocytes % (A) 9 %; MCH 29.4 pg (25.0-35.0); MCHC 31.5 g/dL (31.0-37.0); MCV 93.4 fL (80.0-100.0); Mean Platelet Volume 8.8; Monocytes # (A) 0.5 k/uL (0-1.0); Monocytes % (A) 6 %; Neutrophils # (A) 7.1 k/uL (1.3-7.7); Neutrophils % (A) 81 %; Platelet Count 327 k/uL (150-450); RBC 3.79 m/uL (4.30-5.90); RDW 14.8 % (11.5-15.5); WBC 8.8 k/uL (3.8-10.6)
[2023-06-06 08:10] LABS: Partial Thromboplastin Time 23.2 sec (22.0-30.0); Prothrombin Time 10.4 sec (9.0-12.0)
[2023-06-06 08:18] LABS: ALT 23 U/L (4-49); AST 27 U/L (17-59); African American GFR (CKD) >90 (>60 ml/min/1.73 sqM); Albumin 2.9 g/dL (3.5-5.0); Alkaline Phosphatase 138 U/L (38-126); Anion Gap 10 mmol/L; Blood Urea Nitrogen 25 mg/dL (9-20); Calcium 8.4 mg/dL (8.4-10.2); Carbon Dioxide 22 mmol/L (22-30); Chloride 103 mmol/L (98-107); Glucose 300 mg/dL (74-99); Non-African American GFR(CKD) >90 (>60 ml/min/1.73 sqM); Potassium 5.3 mmol/L (3.5-5.1); Sodium 135 mmol/L (137-145); Total Bilirubin 0.6 mg/dL (0.2-1.3); Total Protein 7.4 g/dL (6.3-8.2)
--- NOTE | 2023-06-06 09:10 | XR ---
EXAMINATION TYPE: XR shoulder complete LT DATE OF EXAM: 06/06/2023 CLINICAL HISTORY: pain COMPARISON: NONE TECHNIQUE: Three views of the left shoulder are obtained. FINDINGS: There is no acute fracture/dislocation evident. The acromioclavicular and glenohumeral lakeisha int spaces appear moderately narrowed. The visualized ribs are intact and unremarkable. IMPRESSION: 1. There is no acute fracture or dislocation. ICD 10 NO FRACTURE, INITIAL EVALUATION
--- NOTE | 2023-06-06 09:15 | XR ---
EXAMINATION TYPE: XR chest 2V DATE OF EXAM: 06/06/2023 COMPARISON: 06/03/2023 HISTORY: Shortness of breath TECHNIQUE: Frontal and lateral views of the chest are obtained. FINDINGS: Scattered senescent parenchymal changes noted. Hyperinflation compatible with COPD. No evidence for infiltrate. No evidence for atelectasis. Heart size is stable. Mediastinal structures are stable and grossly unremarkable. No evidence for hilar prominence. Degenerative changes dorsal spine. IMPRESSION: 1. No evidence for acute pulmonary disease.
[2023-06-06 09:30] LABS: Appearance,Urine Cloudy (Clear); Bacteria,Urine Rare /hpf; Bilirubin,Urine Negative (Negative); Blood,Urine Trace (Negative); Color,Urine Light Yellow; Glucose,Urine (UA) 4+ (Negative); Ketones,Urine 1+ (Negative); Leukocyte Esterase,Urine Large (Negative); Mucus,Urine Rare /hpf; Nitrite,Urine Negative (Negative); Protein,Urine 1+ (Negative); RBC,Urine 8 /hpf (0-5); Specific Gravity,Urine 1.017 (1.001-1.035); Squamous Epithelial Cell,Urine <1 /hpf (0-4); Urobilinogen,Urine <2.0 mg/dL (<2.0); WBC,Urine >182 /hpf (0-5)
[2023-06-06] MEDS ORDERED: cefTRIAXone IN SWFI 1,000 MG/10 ML SYRINGE IVP STA ×2 (09:59→10:00)
[2023-06-06] MEDS ORDERED: SODIUM CHLORIDE 0.9% 1,000 ML IV ONE (10:05)
[2023-06-06] MEDS ORDERED: AMMONIUM LACTATE 12% CREAM 140 GM TUBE TOPICAL PRN (10:51)
[2023-06-06] MEDS ORDERED: DEXTROSE 50% SYRINGE 50 ML IVP PRN ×2 (10:52)
[2023-06-06] MEDS ORDERED: INSULIN DETEMIR (LEVEMIR) 100 UNIT/ML SYR SQ SCH ×2 (11:30→21:00)
[2023-06-06 12:02] LABS: Glucose,Whole Blood 289 mg/dL (70-110)
[2023-06-06] MEDS: DAPAGLIFLOZIN PROPANEDIOL 10 MG TABLET PO SCH (12:32)
[2023-06-06] MEDS: ESCITALOPRAM 10 MG TAB PO SCH (12:33)
[2023-06-06] MEDS: ISOSORBIDE MONONITRATE ER 30 MG TAB.ER.24H PO SCH (12:33)
[2023-06-06] MEDS: LEVOTHYROXINE 137 MCG TAB PO SCH (12:33)
[2023-06-06] MEDS: PANTOPRAZOLE 40 MG TABLET PO SCH (12:37)
[2023-06-06] MEDS: METOPROLOL TARTRATE 25 MG TAB PO SCH ×2 (12:37→20:29)
[2023-06-06] MEDS: TROSPIUM CHLORIDE 20 MG TABLET PO SCH (12:37)
[2023-06-06] MEDS: INSULIN ASPART (NovoLOG) 100 UNIT/ML VIAL SQ SCH ×2 (13:01→18:03)
[2023-06-06] MEDS: ENOXAPARIN 40 MG/0.4 ML SYRINGE SQ SCH (13:02)
--- NOTE | 2023-06-06 13:54 | P.GSCN ---
History of Present Illness Consult date: 06/06/23 Reason for Consult: Healing wound Requesting physician: José Luis Parks History of present illness: This is a pleasant 72-year-old male who presented to the emergency department today for weakness. Patient has had several falls and hospitalizations in the last few weeks. He was seen in the emergency department on 06/03/2023 for recent falls. Prior to that he had a fall where he fractured his right hip in March of this year which was nonsurgical. He then went to Rehab and was discharged about 2 weeks ago. He states that the wound started to left heel while he was at [facility]. He is unsure how long it has been present. He has a past medical history including coronary artery disease, hypertension, h yperlipidemia, peripheral arterial disease and diabetes mellitus, hypothyroidism and GERD. He is status post CABG, heart catheterization with stent and states that he had peripheral arterial surgery done in [place] possibly around 6 months ago. Patient states that he has had that wound since he left [facility] and it is painful. He has not had any wound care outpatient. He has been afebrile. He currently denies any shortness breath or chest pain, no abdominal pain, nausea or vomiting. Denies any pain in his legs. Sensorimotor intact. States that he has been following due to loss of balance. Review of Systems A 14 point review systems was completed all pertinent positives and negatives as stated in the HPI. Past Medical History Past Medical History: Coronary Artery Disease (CAD), Diabetes Mellitus, GERD/Reflux, Hyperlipidemia, Hypertension, Myocardial Infarction (ME), Thyroid Disorder Additional Past Medical History / Comment(s): neuropathy Last Myocardial Infarction Date:: unknown History of Any Multi-Drug Resistant Organisms: None Reported Past Surgical History: Appendectomy, Coronary Bypass/CABG, Heart Catheterization With Stent Additional Past Surgical History / Comment(s): Sister relays, "He had peripheral artery surgery too." Past Anesthesia/Blood Transfusion Reactions: No Reported Reaction Date of Last Stent Placement:: unknown Past Psychological History: Depression Smoking Status: Former smoker Past Alcohol Use History: Daily Past Drug Use History: Marijuana - Past Family History Father Family Medical History: Congestive Heart Failure (CHF) Mother Additional Family Medical History / Comment(s): of old age. Medications and Allergies Home Medications Medication Instructions Recorded Confirmed Type Aspirin [[place] Aspirin EC] 81 mg PO DAILY 03/13/19 06/06/23 History Ferrous Sulfate [Iron (65 MG 325 mg PO DAILY 03/13/19 06/06/23 History Elemental)] Isosorbide Mononitrate ER [Imdur] 30 mg PO DAILY 03/13/19 06/06/23 History Levothyroxine Sodium [Synthroid] 137 mcg PO DAILY 03/13/19 06/06/23 History Metoprolol Tartrate [Lopressor] 25 mg PO BID 03/13/19 06/06/23 History Pantoprazole Sodium [Protonix] 40 mg PO DAILY 03/13/19 06/06/23 History Insulin Aspart [NovoLOG Flexpen] 5 units SQ AC-BID 03/30/21 06/06/23 History Ammonium Lactate Cream [Lac-Hydrin 1 applic TOPICAL BID PRN 04/13/23 06/06/23 History 12% Cream] Atorvastatin [Lipitor] 80 mg PO HS 04/13/23 06/06/23 History Empagliflozin [Jardiance] 25 mg PO DAILY 04/13/23 06/06/23 History Escitalopram [Lexapro] 10 mg PO DAILY 04/13/23 06/06/23 History Glucagon Emergency Kit 1 mg IM ONCE PRN 04/13/23 06/06/23 History Solifenacin Succinate [Vesicare] 5 mg PO DAILY 04/13/23 06/06/23 History metFORMIN HCL ER [Glucophage XR] 1,000 mg PO W/SUPPER 04/13/23 06/06/23 History Gabapentin [Neurontin] 300 mg PO TID 3 Days #6 cap 04/25/23 06/06/23 Rx HYDROcodone/APAP 5-325MG [[place] 1 tab PO Q6HR PRN 06/06/23 06/06/23 History 5-325] Insulin Aspart [NovoLOG Flexpen] 7 units SQ AC-LUNCH 06/06/23 06/06/23 History Insulin Glargine,Hum.rec.anlog 26 units SQ DAILY 06/06/23 06/06/23 History [Lantus Solostar Pen] Allergies Allergy/AdvReac Type Severity Reaction Status Date / Time No Known Allergies Allergy Verified 04/20/23 20:56 Surgical - Exam Vital Signs Temp Pulse Resp BP Pulse Ox 98.2 F 71 18 190/87 97 06/06/23 06:22 06/06/23 06:22 06/06/23 06:22 06/06/23 06:22 06/06/23 06:22 General appearance: The patient is alert, oriented, appears in no acute distress. HET: Head is normocephalic and atraumatic. Pupils are equal and reactive. Neck: Supple. Heart: Regular. Lungs: Equal expansion, normal respiratory effort. Abdomen: Soft, nontender, nondistended. Extremities: Bilateral palpable femoral pulses. Right palpable popliteal pulse. Nonpalpable PT and DP pulses bilaterally. Left heel with pressure ulcer. Neurological: No focal deficits. Sensorimotor intact. Results - Labs 06/06/23 07:42 06/06/23 07:42 Abnormal Lab Results - Last 24 Hours (Table) 06/06/23 06/06/23 06/06/23 Range/Units 07:42 07:42 09:09 RBC 3.79 L (4.30-5.90) m/uL Hgb 11.1 L (13.0-17.5) gm/dL Hct 35.4 L (39.0-53.0) % Lymphocytes # 0.8 L (1.0-4.8) k/uL Sodium 135 L (137-145) mmol/L Potassium 5.3 H (3.5-5.1) mmol/L BUN 25 H (9-20) mg/dL Glucose 300 H (74-99) mg/dL POC Glucose (mg/dL) (70-110) mg/dL Alkaline Phosphatase 138 H (38-126) U/L Albumin 2.9 L (3.5-5.0) g/dL Urine Protein 1+ H (Negative) Urine Glucose (UA) 4+ H (Negative) Urine Ketones 1+ H (Negative) Urine Blood Trace H (Negative) Ur Leukocyte Esterase Large H (Negative) Urine RBC 8 H (0-5) /hpf Urine WBC >182 H (0-5) /hpf Urine WBC Clumps Occasional H (None) /hpf Urine Bacteria Rare H (None) /hpf Urine Mucus Rare H (None) /hpf 06/06/23 Range/Units 12:00 RBC (4.30-5.90) m/uL Hgb (13.0-17.5) gm/dL Hct (39.0-53.0) % Lymphocytes # (1.0-4.8) k/uL Sodium (137-145) mmol/L Potassium (3.5-5.1) mmol/L BUN (9-20) mg/dL Glucose (74-99) mg/dL POC Glucose (mg/dL) 289 H (70-110) mg/dL Alkaline Phosphatase (38-126) U/L Albumin (3.5-5.0) g/dL Urine Protein (Negative) Urine Glucose (UA) (Negative) Urine Ketones (Negative) Urine Blood (Negative) Ur Leukocyte Esterase (Negative) Urine RBC (0-5) /hpf Urine WBC (0-5) /hpf Urine WBC Clumps (None) /hpf Urine Bacteria (None) /hpf Urine Mucus (None) /hpf Diabetes panel 06/06/23 Range/Units 07:42 Sodium 135 L (137-145) mmol/L Potassium 5.3 H (3.5-5.1) mmol/L Chloride 103 (98-107) mmol/L Carbon Dioxide 22 (22-30) mmol/L BUN 25 H (9-20) mg/dL Creatinine 0.67 (0.66-1.25) mg/dL Glucose 300 H (74-99) mg/dL Calcium 8.4 (8.4-10.2) mg/dL AST 27 (17-59) U/L ALT 23 (4-49) U/L Alkaline Phosphatase 138 H (38-126) U/L Total Protein 7.4 (6.3-8.2) g/dL Albumin 2.9 L (3.5-5.0) g/dL Calcium panel 06/06/23 Range/Units 07:42 Calcium 8.4 (8.4-10.2) mg/dL Albumin 2.9 L (3.5-5.0) g/dL Pituitary panel 06/06/23 Range/Units 07:42 Sodium 135 L (137-145) mmol/L Potassium 5.3 H (3.5-5.1) mmol/L Chloride 103 (98-107) mmol/L Carbon Dioxide 22 (22-30) mmol/L BUN 25 H (9-20) mg/dL Creatinine 0.67 (0.66-1.25) mg/dL Glucose 300 H (74-99) mg/dL Calcium 8.4 (8.4-10.2) mg/dL Adrenal panel 06/06/23 Range/Units 07:42 Sodium 135 L (137-145) mmol/L Potassium 5.3 H (3.5-5.1) mmol/L Chloride 103 (98-107) mmol/L Carbon Dioxide 22 (22-30) mmol/L BUN 25 H (9-20) mg/dL Creatinine 0.67 (0.66-1.25) mg/dL Glucose 300 H (74-99) mg/dL Calcium 8.4 (8.4-10.2) mg/dL Total Bilirubin 0.6 (0.2-1.3) mg/dL AST 27 (17-59) U/L ALT 23 (4-49) U/L Alkaline Phosphatase 138 H (38-126) U/L Total Protein 7.4 (6.3-8.2) g/dL Albumin 2.9 L (3.5-5.0) g/dL Assessment and Plan Assessment: 1. Pressure ulcer left heel 2. Weakness 3. Multiple recent falls with right hip fracture, nonsurgical 4. Diabetes mellitus 5. Hyperglycemia 6. Hyperkalemia 7. History coronary artery disease status post CABG, cardiac stent 8. History of peripheral arterial disease, with possible revascularization 9. History hypertension and hyperlipidemia Plan: 1. Continue symptomatic and supportive care 2. Consult to wound clinic for local wound care for left heel pressure ulcer 3. Offload Pressure to bilateral heels, recommend soft green mediboots 4. Arterial ultrasound of lower extremities ordered Thank you for this consultation, we will continue to follow. The impression and plan of care has been dictated as directed. I performed a history and examination of this patient, discussed the same with the dictator. I agree with the dictator's note ,documented as a scribe. Any additional findings or plans will be noted.
--- NOTE | 2023-06-06 14:39 | P.HPIM ---
History of Present Illness H&P Date: 06/06/23 Chief Complaint: Falls This is a 72-year-old patient who follows with Dr. Bell. History is obtained but the sister to patient at the bedside. Patient's sister is the guardian. And patient lives with her. Patient had a fall in March 31. Says that he is at least had 3 falls. Very recently patient had a fall where he went down about 10 stairs. When tried to go up stairs. The last few days patient started using a walker. He has pain in the left shoulder not able to move much since the fall. Also pain in the right hip. In the ER presentation on June 03 right hip x-ray did show subacute avulsion of the greater trochanter. Because of fall patient also limited range of motion of left shoulder. Outpatient not barely able to move not even able to get out to uri spike. Has been wetting the culture has been sleeping. Appetite is good. No fever no chills. Urine frequency. Does not have good control of the bladder. Good control on the bowels ears. Patient for about 20 years has a stutter. After he came out of her diabetic coma,. No respiratory symptoms. Patient also has a wound on the left heel. Dressing changed from Dr. Bell's wound care team. Painful. Some drainage. Review of systems: GEN.: Tired EYES: None HEENT: None NECK: None RESPIRATORY: None CARDIOVASCULAR: None GASTROINTESTINAL: None GENITOURINARY: Urinary incontinence MUSCULOSKELETAL: Multiple joint pains LYMPHATICS: None HEMATOLOGICAL: None PSYCHIATRY: Slightly forgetful NEUROLOGICAL: Limited range of motion right hip and left shoulder Past medical history to include: CAD, diabetes, GERD, hypertension, hyperlipidemia, hypothyroid, peripheral neuropathy,'s coronary artery disease with stent and bypass, PAD, depression Social history: Lives with sister German who is also the POA. Former smoker. Marijuana. Physical examination: VITAL SIGNS: 98.5, 96, 18, 175/83, 93% room air upon presentation GENERAL: BMI 23, declining but awake not in distress. EYES: Pupils equal. Conjunctiva normal. HEENT: External appearance of nose and ears normal, oral cavity grossly normal. NECK: JVD not raised; masses not palpable. HEART: First and second heart sounds are normal; no edema. LUNGS: Respiratory rate normal; clear to auscultation. ABDOMEN: Soft, nontender, liver spleen not palpable, no masses palpable. PSYCH: Patient is able to answer simple questions.l. MUSCULOSKELETAL:No Clubbing/cyanosis;muscles-grossly intact. Limited range of motion left shoulder and the right hip. OA. NEUROLOGICAL: Cranial nerves grossly intact; no facial asymmetry, power and se nsation grossly intact. LYMPHATICS: No lymph nodes palpable in the axilla and neck DERMATOLOGICAL: Left heel ulcer. INVESTIGATIONS, reviewed in the clinical context: White count 8.8 hemoglobin 11.1 platelets 327 sodium 135 potassium 5.3 BUN 25 creatinine 0.67 Troponin I 0.013 UA positive for leukoesterase, WBC creatinine 182 bacteria and rare squamous epithelial less than 1 Chest x-ray film personally reviewed by me-cardiomegaly. Questionable chronic changes. Left shoulder x-ray: No fracture EKG tracing personally reviewed by me-no sinus rhythm. CT brain seeks spine without contrast: No fracture age-related changes. Right hip x-ray [June 03]: Subacute avulsion of the greater trochanter Assessment and plan: -Multiple falls related to underlying left shoulder injury, right hip injury, likely precipitating the initial fall in March of this year. 10 days ago patient has not undertaken fall from the stairs about 10 stairs down. -Likely left shoulder rotator cuff injury secondary to fall about 10 days ago. X-rays ruled out fracture. Orthopedics consulted -Right great greater trochanter avulsion fracture. Consult orthopedics. -Left heel ulcer, decubitus infected., Probably secondary to diabetes mellitus type 2 Consult vascular. Wound care. Offload the heel -Diabetes mellitus type 2 Metformin. Lantus. Follow Accu-Cheks and sliding scale. jardiance -Depression Lexapro -Acute UTI with cystitis IV ceftriaxone -Hyperlipidemia Lipitor -CAD with a prior history of stent and a bypass Aspirin. Lipitor. Imdur. Lopressor. -Hypothyroid Synthroid -Chronic stuttering -Patient's sister German is the POA -Full code Consultation orthopedics, vascular, wound care. Past Medical History Past Medical History: Coronary Artery Disease (CAD), Diabetes Mellitus, GERD/Reflux, Hyperlipidemia, Hypertension, Myocardial Infarction ([place]), Thyroid Disorder Additional Past Medical History / Comment(s): neuropathy Last Myocardial Infarction Date:: unknown History of Any Multi-Drug Resistant Organisms: None Reported Past Surgical History: Appendectomy, Coronary Bypass/CABG, Heart Catheterization With Stent Additional Past Surgical History / Comment(s): Sister relays, "He had peripheral artery surgery too." Past Anesthesia/Blood Transfusion Reactions: No Reported Reaction Date of Last Stent Placement:: unknown Past Psychological History: Depression Smoking Status: Former smoker Past Alcohol Use History: Daily Past Drug Use History: Marijuana - Past Family History Father Family Medical History: Congestive Heart Failure (CHF) Mother Additional Family Medical History / Comment(s): of old age. Medications and Allergies Home Medications Medication Instructions Recorded Confirmed Type Aspirin [[place] Aspirin EC] 81 mg PO DAILY 03/13/19 06/06/23 History Ferrous Sulfate [Iron (65 MG 325 mg PO DAILY 03/13/19 06/06/23 History Elemental)] Isosorbide Mononitrate ER [Imdur] 30 mg PO DAILY 03/13/19 06/06/23 History Levothyroxine Sodium [Synthroid] 137 mcg PO DAILY 03/13/19 06/06/23 History Metoprolol Tartrate [Lopressor] 25 mg PO BID 03/13/19 06/06/23 History Pantoprazole Sodium [Protonix] 40 mg PO DAILY 03/13/19 06/06/23 History Insulin Aspart [NovoLOG Flexpen] 5 units SQ AC-BID 03/30/21 06/06/23 History Ammonium Lactate Cream [Lac-Hydrin 1 applic TOPICAL BID PRN 04/13/23 06/06/23 History 12% Cream] Atorvastatin [Lipitor] 80 mg PO HS 04/13/23 06/06/23 History Empagliflozin [Jardiance] 25 mg PO DAILY 04/13/23 06/06/23 History Escitalopram [Lexapro] 10 mg PO DAILY 04/13/23 06/06/23 History Glucagon Emergency Kit 1 mg IM ONCE PRN 04/13/23 06/06/23 History Solifenacin Succinate [Vesicare] 5 mg PO DAILY 04/13/23 06/06/23 History metFORMIN HCL ER [Glucophage XR] 1,000 mg PO W/SUPPER 04/13/23 06/06/23 History Gabapentin [Neurontin] 300 mg PO TID 3 Days #6 cap 04/25/23 06/06/23 Rx HYDROcodone/APAP 5-325MG [Connell 1 tab PO Q6HR PRN 06/06/23 06/06/23 History 5-325] Insulin Aspart [NovoLOG Flexpen] 7 units SQ AC-LUNCH 06/06/23 06/06/23 History Insulin Glargine,Hum.rec.anlog 26 units SQ DAILY 06/06/23 06/06/23 History [Lantus Solostar Pen] Allergies Allergy/AdvReac Type Severity Reaction Status Date / Time No Known Allergies Allergy Verified 04/20/23 20:56 Physical Exam Vitals: Vital Signs Temp Pulse Resp BP Pulse Ox 06/06/23 09:18 70 18 171/67 95 06/06/23 07:49 61 18 174/68 97 06/06/23 06:22 98.2 F 71 18 190/87 97 Intake and Output 06/05/23 06/06/23 06/06/23 22:59 06:59 14:59 Other: Weight 72.575 kg Results CBC & Chem 7: 06/06/23 07:42 06/06/23 07:42 Labs: Abnormal Lab Results - Last 24 Hours (Table) 06/06/23 06/06/23 06/06/23 Range/Units 07:42 07:42 09:09 RBC 3.79 L (4.30-5.90) m/uL Hgb 11.1 L (13.0-17.5) gm/dL Hct 35.4 L (39.0-53.0) % Lymphocytes # 0.8 L (1.0-4.8) k/uL Sodium 135 L (137-145) mmol/L Potassium 5.3 H (3.5-5.1) mmol/L BUN 25 H (9-20) mg/dL Glucose 300 H (74-99) mg/dL Alkaline Phosphatase 138 H (38-126) U/L Albumin 2.9 L (3.5-5.0) g/dL Urine Protein 1+ H (Negative) Urine Glucose (UA) 4+ H (Negative) Urine Ketones 1+ H (Negative) Urine Blood Trace H (Negative) Ur Leukocyte Esterase Large H (Negative) Urine RBC 8 H (0-5) /hpf Urine WBC >182 H (0-5) /hpf Urine WBC Clumps Occasional H (None) /hpf Urine Bacteria Rare H (None) /hpf Urine Mucus Rare H (None) /hpf
--- NOTE | 2023-06-06 14:45 | P.CNOR ---
History of Present Illness - [facility] Consult date: 06/06/23 Requesting physician: José Luis Parks Consult reason: other (fall - pain diff joints) History of present illness: Patient is a 72-year-old male who presented the emergency department today with a chief complaint of weakness and history of falls. Orthopedics was consulted for difficulty ambulating and pain in his joints. Patient was seen at bedside this afternoon in the emergency department lying semirecumbent position. Patient says currently he is having left shoulder pain as well as right hip pain and pain in the feet. Patient says he was in the emergency department last week for similar issues. X-rays were performed of the right hip last week which did reveal avulsion fracture of the greater trochanter on the right hip. Left shoulder x-ray performed today in the emergency room does show some AC joint arthritis as well as rotator cuff arthropathy. Negative for any fractures. Patient states this past weekend he fell down 10 or 11 steps. Patient says normally does ambulate with a walker at home. Patient also mentions he is having some pain in both heels of his feet. He says he used to follow with a wound care doctor but his wound care physician retired. Patient does have a past medical history significant for CAD, hyperlipidemia, PVD diabetes. Patient denies chest pain, fever, shortness of breath, nausea, vomiting, change in vision, loss of bowel/bladder control. Past Medical History Past Medical History: Coronary Artery Disease (CAD), Diabetes Mellitus, GERD/Reflux, Hyperlipidemia, Hypertension, Myocardial Infarction ([place]), Thyroid Disorder Additional Past Medical History / Comment(s): neuropathy Last Myocardial Infarction Date:: unknown History of Any Multi-Drug Resistant Organisms: None Reported Past Surgical History: Appendectomy, Coronary Bypass/CABG, Heart Catheterization With Stent Additional Past Surgical History / Comment(s): Sister relays, "He had peripheral artery surgery too." Past Anesthesia/Blood Transfusion Reactions: No Reported Reaction Date of Last Stent Placement:: unknown Past Psychological History: Depression Smoking Status: Former smoker Past Alcohol Use History: Daily Past Drug Use History: Marijuana - Past Family History Father Family Medical History: Congestive Heart Failure (CHF) Mother Additional Family Medical History / Comment(s): of old age. Medications and Allergies Home Medications Medication Instructions Recorded Confirmed Type Aspirin [[place] Aspirin EC] 81 mg PO DAILY 03/13/19 06/06/23 History Ferrous Sulfate [Iron (65 MG 325 mg PO DAILY 03/13/19 06/06/23 History Elemental)] Isosorbide Mononitrate ER [Imdur] 30 mg PO DAILY 03/13/19 06/06/23 History Levothyroxine Sodium [Synthroid] 137 mcg PO DAILY 03/13/19 06/06/23 History Metoprolol Tartrate [Lopressor] 25 mg PO BID 03/13/19 06/06/23 History Pantoprazole Sodium [Protonix] 40 mg PO DAILY 03/13/19 06/06/23 History Insulin Aspart [NovoLOG Flexpen] 5 units SQ AC-BID 03/30/21 06/06/23 History Ammonium Lactate Cream [Lac-Hydrin 1 applic TOPICAL BID PRN 04/13/23 06/06/23 History 12% Cream] Atorvastatin [Lipitor] 80 mg PO HS 04/13/23 06/06/23 History Empagliflozin [Jardiance] 25 mg PO DAILY 04/13/23 06/06/23 History Escitalopram [Lexapro] 10 mg PO DAILY 04/13/23 06/06/23 History Glucagon Emergency Kit 1 mg IM ONCE PRN 04/13/23 06/06/23 History Solifenacin Succinate [Vesicare] 5 mg PO DAILY 04/13/23 06/06/23 History metFORMIN HCL ER [Glucophage XR] 1,000 mg PO W/SUPPER 04/13/23 06/06/23 History Gabapentin [Neurontin] 300 mg PO TID 3 Days #6 cap 04/25/23 06/06/23 Rx HYDROcodone/APAP 5-325MG [Mccarr 1 tab PO Q6HR PRN 06/06/23 06/06/23 History 5-325] Insulin Aspart [NovoLOG Flexpen] 7 units SQ AC-LUNCH 06/06/23 06/06/23 History Insulin Glargine,Hum.rec.anlog 26 units SQ DAILY 06/06/23 06/06/23 History [Lantus Solostar Pen] Allergies Allergy/AdvReac Type Severity Reaction Status Date / Time No Known Allergies Allergy Verified 04/20/23 20:56 Physical Examination Inspection: Negative for any open fractures, significant ecchymosis/erythema. There are 2 open wounds present on the bilateral heels. Negative for any active drainage. Sensation: Equal, symmetric, bilaterally intact Palpation: Patient does have moderate tenderness to patient diffusely throughout the right hip as well as the bilateral heels in the feet and diffusely throughout the left shoulder. Nontender to palpation throughout rest exam. Range of motion: Patient does have limited range of motion in the left shoulder. Patient is not able to actively flex, abduct, externally/internally rotate left shoulder due to pain. Limited passive range of motion of left shoulder as well as there is referred pain to left shoulder. Patient does have limited range of motion actively in the right hip in flexion/extension due to pain. Patient does have full range of motion right upper extremity and left lower extremity on exam. Patient does have limited range of motion in right knee and flexion/extension secondary referred pain to the right hip. Patient does have full range of motion in bilateral ankles in dorsi/plantar flexion bilaterally. Motor: 3/5 in resisted left shoulder for elevation, abduction, external/internal rotation. 3/5 and resisted right hip flexion/extension. 4/5 in all other major motor groups Neurovascular: Right foot is somewhat cool to the touch. DP pulse is intact in the right foot. Cap refill is somewhat delayed. Special tests: Negative Homans bilaterally. Results - Labs Labs: Abnormal Lab Results - Last 24 Hours (Table) 06/06/23 06/06/23 06/06/23 Range/Units 07:42 07:42 09:09 RBC 3.79 L (4.30-5.90) m/uL Hgb 11.1 L (13.0-17.5) gm/dL Hct 35.4 L (39.0-53.0) % Lymphocytes # 0.8 L (1.0-4.8) k/uL Sodium 135 L (137-145) mmol/L Potassium 5.3 H (3.5-5.1) mmol/L BUN 25 H (9-20) mg/dL Glucose 300 H (74-99) mg/dL POC Glucose (mg/dL) (70-110) mg/dL Alkaline Phosphatase 138 H (38-126) U/L Albumin 2.9 L (3.5-5.0) g/dL Urine Protein 1+ H (Negative) Urine Glucose (UA) 4+ H (Negative) Urine Ketones 1+ H (Negative) Urine Blood Trace H (Negative) Ur Leukocyte Esterase Large H (Negative) Urine RBC 8 H (0-5) /hpf Urine WBC >182 H (0-5) /hpf Urine WBC Clumps Occasional H (None) /hpf Urine Bacteria Rare H (None) /hpf Urine Mucus Rare H (None) /hpf 06/06/23 Range/Units 12:00 RBC (4.30-5.90) m/uL Hgb (13.0-17.5) gm/dL Hct (39.0-53.0) % Lymphocytes # (1.0-4.8) k/uL Sodium (137-145) mmol/L Potassium (3.5-5.1) mmol/L BUN (9-20) mg/dL Glucose (74-99) mg/dL POC Glucose (mg/dL) 289 H (70-110) mg/dL Alkaline Phosphatase (38-126) U/L Albumin (3.5-5.0) g/dL Urine Protein (Negative) Urine Glucose (UA) (Negative) Urine Ketones (Negative) Urine Blood (Negative) Ur Leukocyte Esterase (Negative) Urine RBC (0-5) /hpf Urine WBC (0-5) /hpf Urine WBC Clumps (None) /hpf Urine Bacteria (None) /hpf Urine Mucus (None) /hpf H & H 06/06/23 Range/Units 07:42 Hgb 11.1 L (13.0-17.5) gm/dL Hct 35.4 L (39.0-53.0) % Coagulation 06/06/23 Range/Units 07:42 INR 1.0 (<1.2) Result Diagrams: 06/06/23 07:42 06/06/23 07:42 - Diagnostic results Shoulder x-ray: report reviewed, image reviewed (X-ray of the left shoulder does reveal arthritis in the acromioclavicular joint. There is also evident rotator cuff arthropathy.) Assessment and Plan Assessment: 1. Left shoulder pain; right hip pain; bilateral foot wounds 2. Multiple medical comorbidities Plan: 1. Left shoulder pain; right hip pain; bilateral foot wounds - patient does present with weakness to the left shoulder on exam. Patient does have arthritis throughout the left shoulder and there is likely some rotator cuff pathology. At this time we are not recommending any emergent orthopedic surgical intervention for the left shoulder. Patient may follow-up in the outpatient setting with Dr. Pack for further evaluation of his left shoulder. Due to patient's history avulsion fracture of the right greater trochanter, we will order x-ray right hip. Pain medication as needed. Patient may be able to weight-bear as tolerated with walker and assistance. We'll continue to follow patient during his stay in hospital. 2. Appreciate medical management 3. Pain management - Mccarr; gabapentin 4. DVT prophylaxis - aspirin; Lovenox 5. GI prophylaxis - Protonix 6. PT/OT - weightbearing as tolerated with walker and assistance 7. Encourage incentive spirometer use 8. Appreciate consult Time with Patient: Less than 30
[2023-06-06] MEDS ORDERED: GABAPENTIN 300 MG CAP PO SCH (16:00)
--- NOTE | 2023-06-06 16:10 | XR ---
EXAMINATION TYPE: XR Hip Complete RT DATE OF EXAM: 06/06/2023 3:03 PM INDICATION: Patient age:Male; 72 years old; Reason for study: right hip pain; PHH. COMPARISON: 06/03/2023 TECHNIQUE: The right hip was examined in the frontal and lateral projections FINDINGS/IMPRESSION: Persistent irregularity to the greater trochanter suggestive of fracture. This can be confirmed with CT if clinically warranted.
[2023-06-06] MEDS: HYDROcodone/APAP 5-325MG 1 EACH TAB PO PRN ×2 (17:22→20:56)
--- NOTE | 2023-06-06 17:44 | US ---
EXAMINATION TYPE: US arterial LE single level DATE OF EXAM: 06/06/2023 5:11 PM CLINICAL INDICATION: Male, 72 years old with history of non-palpable DP/PT pulses. hx PAD; absent pe dianne pulses History of: Smoker: 20 yrs prior Hypertension: N Diabetic: Y Hyperlipidemia: N TIA/CVA: N Previous Vascular Surgery: BILAT VEIN STRIPPING, per RN and patient no peripheral arterial surgeries , quad bypass CAD: No [place]: No Vascular Ulcers: No Claudication: No Gangrene: No Doppler Waveforms: Right: Multiphasic Left: Multiphasic Right Brachial Pressure: defer due to IV Left Brachial Pressure: 166 Ankle-Brachial Indices: Right: could not occlude Left: could not occlude Toe Brachial Indices: Right: patient in too much pain, and unable to hold still to obtain Left: patient in too much pain, and unable to hold still to obtain LT DP audibly heard faintly but not strong enough to produce a waveform IMPRESSION: Findings suggestive of vessel hardening.
[2023-06-06 17:45] LABS: Glucose,Whole Blood 288 mg/dL (70-110)
[2023-06-06] MEDS: metFORMIN 500 MG TAB PO SCH (18:03)
[2023-06-06 20:07] LABS: Glucose,Whole Blood 300 mg/dL (70-110)
[2023-06-06] MEDS: GABAPENTIN 300 MG CAP PO SCH (20:29)
[2023-06-06] MEDS: INSULIN DETEMIR (LEVEMIR) 100 UNIT/ML SYR SQ SCH (20:30)
--- NOTE | 2023-06-06 22:30 | P.CONS ---
History of Present Illness - Reason for Consult Consult date: 06/06/23 Left heel wound Requesting physician: José Luis Parks - Chief Complaint Left heel pain and nonhealing wound x days - History of Present Illness Patient is a 72-year-old male with a past medical history significant for diabetes mellitus hypertension hyperlipidemia [place] coronary artery disease did have a recent discharge from jail about 6 weeks ago prior to that he has been there for about 9 months patient apparently came to the hospital complaining of weak and did have multiple falls patient also have developed a sore on his left heel area the patient mentioned has been there for a few weeks patient denies any history of any trauma has been complaining of pain to the left hand to be sharp 5-6 or 10 no radiation patient denies having any drainage from the left ear area denies any headache or urinary symptoms no chest pain shortness of breath or cough no abdominal pain or diarrhea on presentation to the hospital the patient was afebrile and no fever have encouraged subsequently patient is normal white count with no left shift creatinine was normal liver enzymes are normal patient did have a positive UA with large leukocyte esterase more than 1-2 WBC patient did receive a dose of Rocephin in the ER subsequently but has been switched over to cefazolin concerning for possible infected wound infectious disease was consulted for further management of antibiotic therapy Review of Systems Positive point and negatives has been mentioned in the HPI, complete review of systems was performed and all other systems are negative Past Medical History Past Medical History: Coronary Artery Disease (CAD), Diabetes Mellitus, GERD/Reflux, Hyperlipidemia, Hypertension, Myocardial Infarction ([place]), Thyroid Disorder Additional Past Medical History / Comment(s): neuropathy Last Myocardial Infarction Date:: unknown History of Any Multi-Drug Resistant Organisms: None Reported Past Surgical History: Appendectomy, Coronary Bypass/CABG, Heart Catheterization With Stent Additional Past Surgical History / Comment(s): Sister relays, "He had peripheral artery surgery too." Past Anesthesia/Blood Transfusion Reactions: No Reported Reaction Date of Last Stent Placement:: unknown Past Psychological History: Depression Smoking Status: Former smoker Past Alcohol Use History: Daily Past Drug Use History: Marijuana - Past Family History Father Family Medical History: Congestive Heart Failure (CHF) Mother Additional Family Medical History / Comment(s): of old age. Medications and Allergies Home Medications Medication Instructions Recorded Confirmed Type Aspirin [[place] Aspirin EC] 81 mg PO DAILY 03/13/19 06/06/23 History Ferrous Sulfate [Iron (65 MG 325 mg PO DAILY 03/13/19 06/06/23 History Elemental)] Isosorbide Mononitrate ER [Imdur] 30 mg PO DAILY 03/13/19 06/06/23 History Levothyroxine Sodium [Synthroid] 137 mcg PO DAILY 03/13/19 06/06/23 History Pantoprazole Sodium [Protonix] 40 mg PO DAILY 03/13/19 06/06/23 History Ammonium Lactate Cream [Lac-Hydrin 1 applic TOPICAL BID PRN 04/13/23 06/06/23 History 12% Cream] Atorvastatin [Lipitor] 80 mg PO HS 04/13/23 06/06/23 History Empagliflozin [Jardiance] 25 mg PO DAILY 04/13/23 06/06/23 History Escitalopram [Lexapro] 10 mg PO DAILY 04/13/23 06/06/23 History Glucagon Emergency Kit 1 mg IM ONCE PRN 04/13/23 06/06/23 History Solifenacin Succinate [Vesicare] 5 mg PO DAILY 04/13/23 06/06/23 History metFORMIN HCL ER [Glucophage XR] 1,000 mg PO W/SUPPER 04/13/23 06/06/23 History Vancomycin HCl in 5 % Dextrose 1.25 gm IV Q12HR #84 each 06/15/23 Rx [Vancomycin 1 Gram/250 ml-D5w] metroNIDAZOLE [Flagyl] 500 mg PO TID #90 tab 06/15/23 Rx Gabapentin [Neurontin] 300 mg PO HS #3 cap 06/16/23 Rx HYDROcodone/APAP 5-325MG [[place] 1 tab PO Q6HR PRN #12 06/16/23 06/06/23 Rx 5-325] INSULIN ASPART (NovoLOG) [NovoLOG 0 unit SQ ACHS each 06/16/23 Rx (formulary)] INSULIN ASPART (NovoLOG) [NovoLOG 7 unit SQ AC-TID #0 each 06/16/23 Rx (formulary)] Insulin Detemir (Levemir) [Levemir] 20 unit SQ BID@0700,2100 each 06/16/23 Rx Lisinopril-Hctz 20-12.5 mg 1 each PO BID #30 tab 06/16/23 Rx [Zestoretic 20-12.5] Metoprolol Tartrate [Lopressor] 50 mg PO BID #30 tab 06/16/23 Rx Allergies Allergy/AdvReac Type Severity Reaction Status Date / Time No Known Allergies Allergy Verified 04/20/23 20:56 Physical Exam Vitals: Vital Signs Temp Pulse Pulse Resp BP BP Pulse Ox 06/06/23 15:17 98.7 F 72 17 179/63 96 06/06/23 15:02 98.5 F 66 18 167/73 97 06/06/23 13:40 65 18 173/76 94 L 06/06/23 12:30 195/75 06/06/23 10:56 97.8 F 66 18 186/73 97 06/06/23 09:18 70 18 171/67 95 06/06/23 07:49 61 18 174/68 97 06/06/23 06:22 98.2 F 71 18 190/87 97 Intake and Output 06/06/23 06/06/23 06/06/23 06:59 14:59 22:59 Other: Weight 72.575 kg GENERAL DESCRIPTION: An elderly male lying in bed, no distress. No tachypnea or accessory muscle of respiration use. HEENT: Shows Pallor , no scleral icterus. Oral mucous membrane is dry. No pharyngeal erythema or thrush NECK: Trachea central, no thyromegaly. LUNGS: Unlabored breathing. Clear to auscultation anteriorly. No wheeze or crackle. HEART: S1, S2, regular rate and rhythm. No loud murmur ABDOMEN: Soft, no tenderness , guarding or rigidity, no organomegaly EXTREMITIES: Left heel with a blister minimal foul-smelling but no significant drainage was noticed. SKIN: No rash, no masses palpable. NEUROLOGICAL: The patient is awake, alert, oriented x3, mood and affect normal. Results CBC & Chem 7: 06/16/23 06:13 06/16/23 06:43 Labs: Abnormal Lab Results - Last 24 Hours (Table) 06/06/23 06/06/23 06/06/23 Range/Units 07:42 07:42 09:09 RBC 3.79 L (4.30-5.90) m/uL Hgb 11.1 L (13.0-17.5) gm/dL Hct 35.4 L (39.0-53.0) % Lymphocytes # 0.8 L (1.0-4.8) k/uL Sodium 135 L (137-145) mmol/L Potassium 5.3 H (3.5-5.1) mmol/L BUN 25 H (9-20) mg/dL Glucose 300 H (74-99) mg/dL POC Glucose (mg/dL) (70-110) mg/dL Alkaline Phosphatase 138 H (38-126) U/L Albumin 2.9 L (3.5-5.0) g/dL Urine Protein 1+ H (Negative) Urine Glucose (UA) 4+ H (Negative) Urine Ketones 1+ H (Negative) Urine Blood Trace H (Negative) Ur Leukocyte Esterase Large H (Negative) Urine RBC 8 H (0-5) /hpf Urine WBC >182 H (0-5) /hpf Urine WBC Clumps Occasional H (None) /hpf Urine Bacteria Rare H (None) /hpf Urine Mucus Rare H (None) /hpf 06/06/23 Range/Units 12:00 RBC (4.30-5.90) m/uL Hgb (13.0-17.5) gm/dL Hct (39.0-53.0) % Lymphocytes # (1.0-4.8) k/uL Sodium (137-145) mmol/L Potassium (3.5-5.1) mmol/L BUN (9-20) mg/dL Glucose (74-99) mg/dL POC Glucose (mg/dL) 289 H (70-110) mg/dL Alkaline Phosphatase (38-126) U/L Albumin (3.5-5.0) g/dL Urine Protein (Negative) Urine Glucose (UA) (Negative) Urine Ketones (Negative) Urine Blood (Negative) Ur Leukocyte Esterase (Negative) Urine RBC (0-5) /hpf Urine WBC (0-5) /hpf Urine WBC Clumps (None) /hpf Urine Bacteria (None) /hpf Urine Mucus (None) /hpf Assessment and Plan (1) Pressure ulcer, heel, left, unstageable Status: Acute Code(s): L89.620 - PRESSURE ULCER OF LEFT HEEL, UNSTAGEABLE SNOMED Code(s): 83095137934812160 Plan: 1patient presented hospital with weakness multiple falls which is likely multifactorial patient did have a significantly positive UA some vague urinary symptoms underlying urinary source are not really excluded 2-patient did have a unstageable pressure ulcer to the left heel area no surrounding erythema clinically does not look infected however underlying deep infection not entirely excluded 3-we will repeat his UA and a culture and check inflammatory markers 4-continue the empiric cefazolin while waiting for the work-up to be completed We will follow on clinical condition and cultures to further adjust medication if needed Thank you for this consultation we will follow the patient along with you Dictation was produced using [employer] dictation software. please excuse any grammatical, word or spelling errors. Time with Patient: Greater than 30
[2023-06-07] MEDS: HYDROcodone/APAP 5-325MG 1 EACH TAB PO PRN ×4 (05:08→20:05)
[2023-06-07] MEDS: LEVOTHYROXINE 137 MCG TAB PO SCH (06:00)
[2023-06-07] MEDS: metFORMIN 500 MG TAB PO SCH ×2 (06:00→17:06)
[2023-06-07] MEDS: PANTOPRAZOLE 40 MG TABLET PO SCH (06:00)
[2023-06-07 06:10] LABS: Glucose,Whole Blood 165 mg/dL (70-110)
[2023-06-07] MEDS: INSULIN ASPART (NovoLOG) 100 UNIT/ML VIAL SQ SCH ×3 (06:13→17:24)
[2023-06-07] MEDS: TROSPIUM CHLORIDE 20 MG TABLET PO SCH (08:55)
[2023-06-07] MEDS: FERROUS SULFATE 325 MG TAB PO SCH (08:55)
[2023-06-07] MEDS: METOPROLOL TARTRATE 25 MG TAB PO SCH ×2 (08:55→20:04)
[2023-06-07] MEDS: ASPIRIN 81 MG PO SCH (08:55)
[2023-06-07] MEDS: ENOXAPARIN 40 MG/0.4 ML SYRINGE SQ SCH (08:55)
[2023-06-07] MEDS: ATORVASTATIN 80 MG TAB PO SCH (08:55)
[2023-06-07] MEDS: DAPAGLIFLOZIN PROPANEDIOL 10 MG TABLET PO SCH (08:55)
[2023-06-07] MEDS: ESCITALOPRAM 10 MG TAB PO SCH (08:55)
[2023-06-07] MEDS: ISOSORBIDE MONONITRATE ER 30 MG TAB.ER.24H PO SCH (08:55)
--- NOTE | 2023-06-07 09:44 | P.CONS ---
History of Present Illness - Reason for Consult Consult date: 06/07/23 wound care - History of Present Illness This is a pleasant 72-year-old male being seen on for a unstageable pressure ulcer of the left heel. Patient has had several falls and hospitalizations in the last few weeks. He was seen in the emergency department on 06/03/2023 for recent falls. Prior to that he had a fall where he fractured his right hip in March of this year which was nonsurgical. He then went to Rehab and was discharged about 2 weeks ago. He states that the wound started to left heel while he was at [facility]. He is unsure how long it has been present. He has a past medical history including coronary artery disease, hypertension, hyperlipidemia, peripheral arterial disease and diabetes mellitus, hypothyroidism and GERD. He is status post CABG, heart catheterization with stent and states that he had peripheral arterial surgery done in [place] possibly around 6 months ago. Patient states that he has had that wound since he left [facility] and it is painful. He has not had any wound care outpatient. Left heel ulceration is unstageable pressure ulcer with eschar in place measur ing approximately 3 x 3 x 0.1 cm no granulation noted to the wound bed no tunneling or undermining noted at this time. The ulceration is tender to touch. Review Of Systems: Constitutional: No fever, no chills, no night sweats. No weight change. No weakness, fatigue or lethargy. No daytime sleepiness. Integumentary:reports wounds, no lesions. No rash or pruritus. No unusual bruising. No change in hair or nails. Physical exam: General Appearance: Alert, cooperative, no distress, appears stated age. Skin: See HPI all other Skin color, texture, tugor normal, no rashes or lesions. Neurologic: Alert oriented x3 Assessment: 1. Unstageable pressure ulcer left calcaneus 2. Diabetes the skin ulceration 3. Peripheral arterial disease with intervention Plan: 1. Apply honey gel, border foam. Continue to offload utilizing a heel protector. Nonweightbearing to the left heel. Patient would benefit from continued advancement care in a wound care center. We'll be happy to see him upon discharge. Thank for the consultation any questions contact the wound care center DNP note has been reviewed and discussed with Dr. Ramos and the impression and plan of care has been directed as dictated. Past Medical History Past Medical History: Coronary Artery Disease (CAD), Diabetes Mellitus, GERD/Reflux, Hyperlipidemia, Hypertension, Myocardial Infarction ([place]), Thyroid Disorder Additional Past Medical History / Comment(s): neuropathy Last Myocardial Infarction Date:: unknown History of Any Multi-Drug Resistant Organisms: None Reported Past Surgical History: Appendectomy, Coronary Bypass/CABG, Heart Catheterization With Stent Additional Past Surgical History / Comment(s): Sister relays, "He had peripheral artery surgery too." Past Anesthesia/Blood Transfusion Reactions: No Reported Reaction Date of Last Stent Placement:: unknown Past Psychological History: Depression Smoking Status: Former smoker Past Alcohol Use History: Daily Past Drug Use History: Marijuana - Past Family History Father Family Medical History: Congestive Heart Failure (CHF) Mother Additional Family Medical History / Comment(s): of old age. Medications and Allergies Home Medications Medication Instructions Recorded Confirmed Type Aspirin [[place] Aspirin EC] 81 mg PO DAILY 03/13/19 06/06/23 History Ferrous Sulfate [Iron (65 MG 325 mg PO DAILY 03/13/19 06/06/23 History Elemental)] Isosorbide Mononitrate ER [Imdur] 30 mg PO DAILY 03/13/19 06/06/23 History Levothyroxine Sodium [Synthroid] 137 mcg PO DAILY 03/13/19 06/06/23 History Metoprolol Tartrate [Lopressor] 25 mg PO BID 03/13/19 06/06/23 History Pantoprazole Sodium [Protonix] 40 mg PO DAILY 03/13/19 06/06/23 History Insulin Aspart [NovoLOG Flexpen] 5 units SQ AC-BID 03/30/21 06/06/23 History Ammonium Lactate Cream [Lac-Hydrin 1 applic TOPICAL BID PRN 04/13/23 06/06/23 History 12% Cream] Atorvastatin [Lipitor] 80 mg PO HS 04/13/23 06/06/23 History Empagliflozin [Jardiance] 25 mg PO DAILY 04/13/23 06/06/23 History Escitalopram [Lexapro] 10 mg PO DAILY 04/13/23 06/06/23 History Glucagon Emergency Kit 1 mg IM ONCE PRN 04/13/23 06/06/23 History Solifenacin Succinate [Vesicare] 5 mg PO DAILY 04/13/23 06/06/23 History metFORMIN HCL ER [Glucophage XR] 1,000 mg PO W/SUPPER 04/13/23 06/06/23 History Gabapentin [Neurontin] 300 mg PO TID 3 Days #6 cap 04/25/23 06/06/23 Rx HYDROcodone/APAP 5-325MG [[place] 1 tab PO Q6HR PRN 06/06/23 06/06/23 History 5-325] Insulin Aspart [NovoLOG Flexpen] 7 units SQ AC-LUNCH 06/06/23 06/06/23 History Insulin Glargine,Hum.rec.anlog 26 units SQ DAILY 06/06/23 06/06/23 History [Lantus Solostar Pen] Allergies Allergy/AdvReac Type Severity Reaction Status Date / Time No Known Allergies Allergy Verified 04/20/23 20:56 Physical Exam Vitals: Vital Signs Temp Pulse Pulse Resp BP BP BP 06/07/23 07:00 98.4 F 72 18 161/78 06/07/23 02:30 98.1 F 63 16 165/68 06/06/23 19:44 98.5 F 73 18 149/62 06/06/23 15:17 98.7 F 72 17 179/63 06/06/23 15:02 98.5 F 66 18 167/73 06/06/23 13:40 65 18 173/76 06/06/23 12:30 195/75 06/06/23 10:56 97.8 F 66 18 186/73 Pulse Ox 06/07/23 07:00 95 06/07/23 02:30 95 06/06/23 19:44 94 L 06/06/23 15:17 96 06/06/23 15:02 97 06/06/23 13:40 94 L 06/06/23 12:30 06/06/23 10:56 97 Intake and Output 06/06/23 06/07/23 06/07/23 22:59 06:59 14:59 Intake Total 1182 Output Total 400 750 Balance 782 -750 Intake: Oral 1182 Output: Urine 400 750 Other: Voiding Method Diaper Diaper Diaper External Catheter External Catheter External Catheter Weight 72.575 kg Results CBC & Chem 7: 06/06/23 07:42 06/06/23 07:42 Labs: Abnormal Lab Results - Last 24 Hours (Table) 08/06/2106/06/23 06/06/23 Range/Units 12:00 17:44 20:06 POC Glucose (mg/dL) 289 H 288 H 300 H (70-110) mg/dL 06/07/23 Range/Units 06:09 POC Glucose (mg/dL) 165 H (70-110) mg/dL Assessment and Plan (1) Pressure ulcer, heel, left, unstageable Current Visit: Yes Status: Acute Code(s): L89.620 - PRESSURE ULCER OF LEFT HEEL, UNSTAGEABLE SNOMED Code(s): 63915550925257789 (2) Type 2 diabetes mellitus with foot ulcer Current Visit: Yes Status: Acute Code(s): E11.621 - TYPE 2 DIABETES MELLITUS WITH FOOT ULCER; L97.509 - NON-PRESSURE CHRONIC ULCER OTH PRT UNSP FOOT W UNSP SEVERITY SNOMED Code(s): 675823963 (3) Peripheral vascular disease Current Visit: Yes Status: Acute Code(s): I73.9 - PERIPHERAL VASCULAR DISEASE, UNSPECIFIED SNOMED Code(s): 671799375
--- NOTE | 2023-06-07 10:10 | P.PN ---
Subjective Progress Note Date: 06/07/23 Principal diagnosis: bilateral foot wounds; greater trochanter fracture; left shoulder osteoarthrosis; left shoulder rotator cuff arthropathy Patient was seen at bedside this morning lying in semirecumbent position with physical therapy at bedside. Patient does have pringle boots presents to the lower extremities, vascular following. Patient states he is still having left shoul colton pain in right hip pain at this time. Patient says it is difficult to put weight on the right lower extremity. Physical therapy is about to help patient get up at bedside. X-ray of the right hip was performed. There does not appear to be any significant changes from previous x-ray of the right hip performed just over one month ago. Patient denies any changes since yesterday. Patient denies chest pain, fever, shortness of breath, nausea, vomiting, change in vision, loss of bowel/bladder control. Objective - Vital Signs Vital signs: Vital Signs Temp 98.4 F 06/07/23 07:00 Pulse 72 06/07/23 07:00 Resp 18 06/07/23 07:00 BP 161/78 06/07/23 07:00 Pulse Ox 95 06/07/23 07:00 FiO2 Intake & Output 06/06/23 06/07/23 06/07/23 18:59 06:59 18:59 Intake Total 1182 Output Total 1150 Balance 1182 -1150 Weight 72.575 kg Intake: Oral 1182 Output: Urine 1150 Other: Voiding Method Diaper Diaper External Catheter External Catheter - Exam Inspection: Negative for any open fractures, significant ecchymosis/erythema. There are 2 open wounds present on the bilateral heels. Negative for any active drainage. Sensation: Equal, symmetric, bilaterally intact Palpation: Patient does have moderate tenderness to patient diffusely throughout the right hip as well as the bilateral heels in the feet and diffusely throughout the left shoulder. Nontender to palpation throughout rest exam. Range of motion: Patient does have limited range of motion in the left shoulder. Patient is not able to actively flex, abduct, externally/internally rotate left shoulder due to pain. Limited passive range of motion of left shoulder as well as there is referred pain to left shoulder. Patient does have limited range of motion actively in the right hip in flexion/extension due to pain. Patient does have full range of motion right upper extremity and left lower extremity on exam. Patient does have limited range of motion in right knee and flexion/extension secondary referred pain to the right hip. Patient does have full range of motion in bilateral ankles in dorsi/plantar flexion bilaterally. Motor: 3/5 in resisted left shoulder for elevation, abduction, external/internal rotation. 3/5 and resisted right hip flexion/extension. 4/5 in all other major motor groups Neurovascular: Right foot is somewhat cool to the touch. DP pulse is intact in the right foot. Cap refill is somewhat delayed. Special tests: Negative Homans bilaterally. - Labs CBC & Chem 7: 06/06/23 07:42 06/06/23 07:42 Labs: Abnormal Lab Results - Last 24 Hours (Table) 06/06/23 06/06/23 06/06/23 Range/Units 09:09 12:00 17:44 POC Glucose (mg/dL) 289 H 288 H (70-110) mg/dL Urine Protein 1+ H (Negative) Urine Glucose (UA) 4+ H (Negative) Urine Ketones 1+ H (Negative) Urine Blood Trace H (Negative) Ur Leukocyte Esterase Large H (Negative) Urine RBC 8 H (0-5) /hpf Urine WBC >182 H (0-5) /hpf Urine WBC Clumps Occasional H (None) /hpf Urine Bacteria Rare H (None) /hpf Urine Mucus Rare H (None) /hpf 06/06/23 06/07/23 Range/Units 20:06 06:09 POC Glucose (mg/dL) 300 H 165 H (70-110) mg/dL Urine Protein (Negative) Urine Glucose (UA) (Negative) Urine Ketones (Negative) Urine Blood (Negative) Ur Leukocyte Esterase (Negative) Urine RBC (0-5) /hpf Urine WBC (0-5) /hpf Urine WBC Clumps (None) /hpf Urine Bacteria (None) /hpf Urine Mucus (None) /hpf Assessment and Plan Assessment: 1. bilateral foot wounds; greater trochanter fracture; left shoulder osteoarthrosis; left shoulder rotator cuff arthropathy 2. Multiple medical comorbidities Plan: 1. bilateral foot wounds; greater trochanter fracture; left shoulder osteoar throsis; left shoulder rotator cuff arthropathy - patient does present with weakness to the left shoulder on exam. Patient does have arthritis throughout the left shoulder and there is likely some rotator cuff pathology. At this time we are not recommending any emergent orthopedic surgical intervention for the left shoulder. Patient may follow-up in the outpatient setting with Dr. Pack for further evaluation of his left shoulder. X-ray of the right hip does demonstrate greater trochanter which was shown on previous x-ray from March 2023. Negative for any significant changes on x-ray. Pain medication as needed. Patient may be able to weight-bear as tolerated with walker and assistance. Patient is stable for orthopedic standpoint. Patient may follow-up in the outpatient setting with Dr. Pack for further evaluation of right hip and left shoulder. At this time orthopedics is signing off. Please do not hesitate to contact us for any further questions. 2. Appreciate medical management 3. Pain management - [place]; gabapentin 4. DVT prophylaxis - aspirin; Lovenox 5. GI prophylaxis - Protonix 6. PT/OT - weightbearing as tolerated with walker and assistance 7. Encourage incentive spirometer use Time with Patient: Less than 30
--- NOTE | 2023-06-07 10:46 | P.PN ---
Subjective Progress Note Date: 06/07/23 Principal diagnosis: Pressure ulcer Patient was seen and examined today as a follow-up. He has been afebrile. States he still has pain in bilateral heels. Left lower extremity with soft offloading boot in place. He denies any other acute changes through the night. He underwent arterial ultrasound of bilateral lower extremities multiphasic signals, ABIs could not occlude, TBI is unable to hold still to obtain, findings suggestive of vessel hardening Objective - Vital Signs Vital signs: Vital Signs Temp 98.4 F 06/07/23 07:00 Pulse 72 06/07/23 07:00 Resp 18 06/07/23 07:00 BP 161/78 06/07/23 07:00 Pulse Ox 95 06/07/23 07:00 FiO2 Intake & Output 06/06/23 06/07/23 06/07/23 18:59 06:59 18:59 Intake Total 1182 560 Output Total 1150 Balance 1182 -1150 560 Weight 72.575 kg Intake: Oral 1182 560 Output: Urine 1150 Other: Voiding Method Diaper Diaper Diaper External Catheter External Catheter External Catheter - Exam General appearance: The patient is alert, oriented, appears in no acute distress. HET: Head is normocephalic and atraumatic. Neck: Supple. Heart: Regular. Lungs: Equal expansion, normal respiratory effort. Abdomen: Soft, nondistended. Extremities: Palpable bilateral femoral pulses, bilateral lower extremities warm to the touch with good capillary refill. Left heel with pressure ulcer with eschar, tender to palpation. Neurological: No focal deficits. - Labs CBC & Chem 7: 06/06/23 07:42 06/06/23 07:42 Labs: Abnormal Lab Results - Last 24 Hours (Table) 06/06/23 06/06/23 06/06/23 Range/Units 12:00 17:44 20:06 POC Glucose (mg/dL) 289 H 288 H 300 H (70-110) mg/dL 06/07/23 Range/Units 06:09 POC Glucose (mg/dL) 165 H (70-110) mg/dL Assessment and Plan Assessment: 1. Pressure ulcer left heel 2. Weakness 3. Multiple recent falls with right hip fracture, nonsurgical 4. Diabetes mellitus 5. Hyperglycemia 6. Hyperkalemia 7. History coronary artery disease status post CABG, cardiac stent 8. History of peripheral arterial disease, with possible revascularization 9. History hypertension and hyperlipidemia Plan: 1. Continue symptomatic and supportive care 2. Continue local wound care per recommendations, and follow up outpatient with wound clinic 3. Offload Pressure to bilateral heels, recommend soft green mediboots 4. Arterial ultrasound of lower extremities ordered and reviewed 5. There is no indication for any vascular surgical intervention at this time. Thank you for this consultation, we will sign off at this time. The impression and plan of care has been dictated as directed. I performed a history and examination of this patient, discussed the same with the dictator. I agree with the dictator's note ,documented as a scribe. Any additional findings or plans will be noted.
[2023-06-07 11:36] VITALS: BMI 22.9
[2023-06-07 11:57] LABS: Appearance,Urine Turbid (Clear); Bacteria,Urine Rare /hpf; Bilirubin,Urine Negative (Negative); Blood,Urine Small (Negative); Color,Urine Light Yellow; Glucose,Urine (UA) 4+ (Negative); Ketones,Urine Negative (Negative); Leukocyte Esterase,Urine Large (Negative); Nitrite,Urine Negative (Negative); Protein,Urine 1+ (Negative); RBC,Urine 4 /hpf (0-5); Specific Gravity,Urine 1.018 (1.001-1.035); Squamous Epithelial Cell,Urine 1 /hpf (0-4); Urobilinogen,Urine <2.0 mg/dL (<2.0); WBC,Urine >182 /hpf (0-5)
[2023-06-07 12:25] LABS: Glucose,Whole Blood 232 mg/dL (70-110)
[2023-06-07 13:41] LABS: ALT 18 U/L (10-49); AST 21 U/L (14-35); Albumin 2.5 d/dL (3.8-4.9); Albumin/Globulin Ratio 0.57 Ratio (1.60-3.17); Alkaline Phosphatase 101 U/L (41-126); Blood Urea Nitrogen 19.8 mg/dL (9.0-27.0); Calcium 8.3 mg/dL (8.7-10.3); Carbon Dioxide 22.9 mmol/L (21.6-31.8); Chloride 103 mmol/L (96-109); Globulin 4.4 d/dL (1.6-3.3); Glucose 122 mg/dL (70-110); Potassium 4.6 mmol/L (3.5-5.5); Sodium 136 mmol/L (135-145); Total Bilirubin 0.3 mg/dL (0.3-1.2); Total Protein 6.9 d/dL (6.2-8.2)
[2023-06-07 14:24] LABS: Basophils # (A) 0.04 X 10*3/uL (0.00-0.10); Basophils % (A) 0.5 %; Eosinophils # (A) 0.13 X 10*3/uL (0.04-0.35); Eosinophils % (A) 1.5 %; HCT 31.5 % (39.6-50.0); HGB 9.9 d/dL (13.0-17.0); Lymphocytes # (A) 0.83 X 10*3/uL (0.90-5.00); Lymphocytes % (A) 9.6 %; MCH 28.4 pg (27.0-32.0); MCHC 31.4 d/dL (32.0-37.0); MCV 90.5 FL (80.0-97.0); Mean Platelet Volume 10.2 FL (9.5-12.2); Monocytes # (A) 0.61 X 10*3/uL (0.20-1.00); Monocytes % (A) 7.1 %; NRBC Per 100 WBC 0 X 10*3/uL (0.00-0.01); Platelet Count 393 X 10*3/uL (140-440); RBC 3.48 X 10*6/uL (4.40-5.60); RDW 15.1 % (11.5-14.5); WBC 8.64 X 10*3/uL (4.50-10.00)
[2023-06-07 17:19] LABS: Glucose,Whole Blood 290 mg/dL (70-110)
[2023-06-07] MEDS: GABAPENTIN 300 MG CAP PO SCH (20:04)
[2023-06-07 20:13] LABS: Glucose,Whole Blood 347 mg/dL (70-110)
[2023-06-07] MEDS ORDERED: INSULIN ASPART (NovoLOG) 100 UNIT/ML VIAL SQ ONE (20:43)
[2023-06-07] MEDS: INSULIN DETEMIR (LEVEMIR) 100 UNIT/ML SYR SQ SCH (21:15)
--- NOTE | 2023-06-07 22:23 | P.PN ---
Progress Note - Text Progress Note Date: 06/07/23 Chief Complaint: Falls This is a 72-year-old patient who follows with Dr. Bell. History is obtained but the sister to patient at the bedside. Patient's sister is the guardian. And patient lives with her. Patient had a fall in March 31. Says that he is at least had 3 falls. Very recently patient had a fall where he went down about 10 stairs. When tried to go up stairs. The last few days patient started using a walker. He has pain in the left shoulder not able to move much since the fall. Also pain in the right hip. In the ER presentation on June 03 right hip x-ray did show subacute avulsion of the greater trochanter. Because of fall patient also limited range of motion of left shoulder. Outpatient not barely able to move not even able to get out to urinate. Has been wetting the culture has been sleeping. Appetite is good. No fever no chills. Urine frequency. Does not have good control of the bladder. Good control on the bowels ears. Patient for about 20 years has a stutter. After he came out of her diabetic coma,. No respiratory symptoms. Patient also has a wound on the left heel. Dressing changed from Dr. Bell's wound care team. Painful. Some drainage. 06/17/2023: Up in a recliner. Feeling a bit better. Eating well. Seen by orthopedics Dr. Headley. Will follow up outpatient for the left shoulder. Right hip weightbearing as tolerated. With walker and assistance. Seen by wound care team. Nonweightbearing to the left heel. Seen by vascular Dr. Jackman. Offload both the years. Soft green MediPort. We will follow up outpatient. Active Medications Hydrocodone Bitart/Acetaminophen (Hydrocodone/Apap 5-325mg 1 Each Tab) 1 each PO Q4HR PRN PRN Reason: Pain Last Admin: 06/07/23 20:05 Dose: 1 each Aspirin (Aspirin 81 Mg) 81 mg PO DAILY [facility] Last Admin: 06/07/23 08:55 Dose: 81 mg Atorvastatin Calcium (Atorvastatin 80 Mg Tab) 80 mg PO DAILY [facility] Last Admin: 06/07/23 08:55 Dose: 80 mg Dapagliflozin (Dapagliflozin Propanediol 10 Mg Tablet) 10 mg PO DAILY [facility] Last Admin: 06/07/23 08:55 Dose: 10 mg Dextrose/Water (Dextrose 50% Syringe 50 Ml) 25 ml IVP PER PROTOCOL PRN; Protocol PRN Reason: Hypoglycemia Dextrose/Water (Dextrose 50% Syringe 50 Ml) 50 ml IVP PER PROTOCOL PRN; Protocol PRN Reason: Hypoglycemia Enoxaparin Sodium (Enoxaparin 40 Mg/0.4 Ml Syringe) 40 mg SQ DAILY [facility] Last Admin: 06/07/23 08:55 Dose: 40 mg Escitalopram Oxalate (Escitalopram 10 Mg Tab) 10 mg PO DAILY [facility] Last Admin: 06/07/23 08:55 Dose: 10 mg Ferrous Sulfate (Ferrous Sulfate 325 Mg Tab) 325 mg PO DAILY [facility] Last Admin: 06/07/23 08:55 Dose: 325 mg Gabapentin (Gabapentin 300 Mg Cap) 300 mg PO [facility] Last Admin: 06/07/23 20:04 Dose: 300 mg Cefazolin Sodium 2 gm/ Sodium (Chloride) 50 mls @ 100 mls/hr IVPB Q8HR [facility] Last Admin: 06/07/23 17:08 Dose: 100 mls/hr Insulin Aspart (Insulin Aspart (Novolog) 100 Unit/Ml Vial) 0 unit SQ AC-TID [facility]; Protocol Last Admin: 06/07/23 17:24 Dose: 3 unit Insulin Detemir (Insulin Detemir (Levemir) 100 Unit/Ml Syr) 20 unit SQ [facility] Last Admin: 06/07/23 21:15 Dose: 20 unit Isosorbide Mononitrate (Isosorbide Mononitrate Er 30 Mg Tab.Er.24h) 30 mg PO DAILY [facility] Last Admin: 06/07/23 08:55 Dose: 30 mg Lactic Acid (Ammonium Lactate 12% Cream 140 Gm Tube) 1 applic TOPICAL BID PRN; Protocol PRN Reason: Dry Skin Levothyroxine Sodium (Levothyroxine 137 Mcg Tab) 137 mcg PO DAILY@0630 [facility] Last Admin: 06/07/23 06:00 Dose: 137 mcg Metformin HCl (Metformin 500 Mg Tab) 500 mg PO BID-W/MEALS [facility] Last Admin: 06/07/23 17:06 Dose: 500 mg Metoprolol Tartrate (Metoprolol Tartrate 25 Mg Tab) 25 mg PO BID [facility] Last Admin: 06/07/23 20:04 Dose: 25 mg Pantoprazole Sodium (Pantoprazole 40 Mg Tablet) 40 mg PO AC-BRKFST [facility] Last Admin: 06/07/23 06:00 Dose: 40 mg Trospium (Trospium Chloride 20 Mg Tablet) 20 mg PO DAILY [facility] Last Admin: 06/07/23 08:55 Dose: 20 mg Past medical history to include: CAD, diabetes, GERD, hypertension, hyperlipidemia, hypothyroid, peripheral neuropathy,'s coronary artery disease with stent and bypass, PAD, depression Social history: Lives with sister German who is also the POA. Former smoker. Marijuana. Physical examination: VITAL SIGNS: 97.8, 65, 17, 156/72, 96% room air GENERAL: BMI 23, in a recliner. Awake. Comfortable. EYES: Pupils equal. Conjunctiva normal. HEENT: External appearance of nose and ears normal, oral cavity grossly normal. NECK: JVD not raised; masses not palpable. HEART: First and second heart sounds are normal; no edema. LUNGS: Respiratory rate normal; clear to auscultation. ABDOMEN: Soft, nontender, liver spleen not palpable, no masses palpable. PSYCH: Patient is able to answer simple questions.l. MUSCULOSKELETAL:No Clubbing/cyanosis;muscles-grossly intact. Limited range of motion left shoulder and the right hip. OA. DERMATOLOGICAL: Left heel ulcer. INVESTIGATIONS, reviewed in the clinical context: Arterial ultrasound left lower extremity: Evidence of vessel hardening. June 07: White count 8.6 hemoglobin 9.9 platelets 393 sodium 136 potassium 4.6 creatinine 0.9. CRP 13.8 White count 8.8 hemoglobin 11.1 platelets 327 sodium 135 potassium 5.3 BUN 25 creatinine 0.67 Troponin I 0.013 UA positive for leukoesterase, WBC creatinine 182 bacteria and rare squamous epithelial less than 1 Chest x-ray film personally reviewed by me-cardiomegaly. Questionable chronic changes. Left shoulder x-ray: No fracture EKG tracing personally reviewed by me-no sinus rhythm. CT brain seeks spine without contrast: No fracture age-related changes. Right hip x-ray [June 03]: Subacute avulsion of the greater trochanter Assessment and plan: -Multiple falls related to underlying left shoulder injury, right hip injury, likely precipitating the initial fall in March of this year. 10 days ago patient has not undertaken fall from the stairs about 10 stairs down. -Likely left shoulder rotator cuff injury secondary to fall about 10 days ago. X-rays ruled out fracture. \ Seen by Dr. Pack. With follow-up outpatient. -Right great greater trochanter avulsion fracture. Seen by Dr. Pack. No surgical intervention -Left heel ulcer stage I, not infected., Probably secondary to diabetes mellitus type 2 Seen by vascular and 90. Wound care. Offload the heel -Diabetes mellitus type 2 Metformin. Lantus. Follow Accu-Cheks and sliding scale. jardiance -Depression Lexapro -Acute UTI with cystitis IV ceftriaxone -Hyperlipidemia Lipitor -CAD with a prior history of stent and a bypass Aspirin. Lipitor. Imdur. Lopressor. -Hypothyroid Synthroid -Chronic stuttering -Patient's sister German is the POA -Full code Patient seen by multiple consultants. No surgical intervention from orthopedic vascular standpoint. Looking at rehab placement. Nonweightbearing of both the heels. Green offloading boots. Awake urine culture results.
[2023-06-08 06:11] LABS: Glucose,Whole Blood 277 mg/dL (70-110)
[2023-06-08] MEDS: INSULIN ASPART (NovoLOG) 100 UNIT/ML VIAL SQ SCH ×3 (06:16→18:11)
[2023-06-08] MEDS: LEVOTHYROXINE 137 MCG TAB PO SCH (06:16)
[2023-06-08] MEDS: PANTOPRAZOLE 40 MG TABLET PO SCH (06:16)
[2023-06-08] MEDS: TROSPIUM CHLORIDE 20 MG TABLET PO SCH (08:31)
[2023-06-08] MEDS: ATORVASTATIN 80 MG TAB PO SCH (08:32)
[2023-06-08] MEDS: FERROUS SULFATE 325 MG TAB PO SCH (08:32)
[2023-06-08] MEDS: ASPIRIN 81 MG PO SCH (08:32)
[2023-06-08] MEDS: ISOSORBIDE MONONITRATE ER 30 MG TAB.ER.24H PO SCH (08:32)
[2023-06-08] MEDS: ENOXAPARIN 40 MG/0.4 ML SYRINGE SQ SCH (08:32)
[2023-06-08] MEDS: METOPROLOL TARTRATE 25 MG TAB PO SCH ×2 (08:32→20:00)
[2023-06-08] MEDS: metFORMIN 500 MG TAB PO SCH ×2 (08:32→18:11)
[2023-06-08] MEDS: ESCITALOPRAM 10 MG TAB PO SCH (08:32)
[2023-06-08] MEDS: DAPAGLIFLOZIN PROPANEDIOL 10 MG TABLET PO SCH (08:32)
[2023-06-08 09:15] LABS: Basophils # (A) 0.04 X 10*3/uL (0.00-0.10); Basophils % (A) 0.5 %; Eosinophils % (A) 2.3 %; HCT 31.8 % (39.6-50.0); HGB 9.9 d/dL (13.0-17.0); Lymphocytes # (A) 0.93 X 10*3/uL (0.90-5.00); Lymphocytes % (A) 10.6 %; MCH 28.6 pg (27.0-32.0); MCHC 31.1 d/dL (32.0-37.0); MCV 91.9 FL (80.0-97.0); Mean Platelet Volume 10.2 FL (9.5-12.2); Monocytes # (A) 0.63 X 10*3/uL (0.20-1.00); Monocytes % (A) 7.2 %; NRBC Per 100 WBC 0 X 10*3/uL (0.00-0.01); Neutrophils # (A) 6.93 X 10*3/uL (1.80-7.70); Neutrophils % (A) 79.1 %; Platelet Count 340 X 10*3/uL (140-440); RBC 3.46 X 10*6/uL (4.40-5.60); RDW 15.1 % (11.5-14.5); WBC 8.76 X 10*3/uL (4.50-10.00)
[2023-06-08] MEDS: HYDROcodone/APAP 5-325MG 1 EACH TAB PO PRN ×3 (10:11→20:01)
[2023-06-08 10:38] LABS: Erythrocyte Sedimentation Rate >130 mm/Hr (0-20)
[2023-06-08 11:24] LABS: ALT 20 U/L (10-49); AST 26 U/L (14-35); Albumin 2.5 d/dL (3.8-4.9); Albumin/Globulin Ratio 0.58 Ratio (1.60-3.17); Alkaline Phosphatase 109 U/L (41-126); BUN/Creat Ratio 28.25 Ratio (12.00-20.00); Blood Urea Nitrogen 22.6 mg/dL (9.0-27.0); Calcium 8.4 mg/dL (8.7-10.3); Carbon Dioxide 23.2 mmol/L (21.6-31.8); Chloride 104 mmol/L (96-109); Globulin 4.3 d/dL (1.6-3.3); Glucose 184 mg/dL (70-110); Potassium 4.5 mmol/L (3.5-5.5); Sodium 136 mmol/L (135-145); Total Bilirubin <0.2 mg/dL (0.3-1.2); Total Protein 6.8 d/dL (6.2-8.2)
[2023-06-08 12:07] LABS: Glucose,Whole Blood 460 mg/dL (70-110)
[2023-06-08] MEDS ORDERED: INSULIN ASPART (NovoLOG) 100 UNIT/ML VIAL SQ ONE (12:35)
[2023-06-08] MEDS ORDERED: VANCOMYCIN IV PER PHARMACY 1 EACH MISC MISCELLANE PRN (13:27)
[2023-06-08 17:32] LABS: Glucose,Whole Blood 214 mg/dL (70-110)
[2023-06-08] MEDS: GABAPENTIN 300 MG CAP PO SCH (20:01)
--- NOTE | 2023-06-08 20:45 | P.PN ---
Progress Note - Text Progress Note Date: 06/08/23 Chief Complaint: Falls This is a 72-year-old patient who follows with Dr. Bell. History is obtained but the sister to patient at the bedside. Patient's sister is the guardian. And patient lives with her. Patient had a fall in March 31. Says that he is at least had 3 falls. Very recently patient had a fall where he went down about 10 stairs. When tried to go up stairs. The last few days patient started using a walker. He has pain in the left shoulder not able to move much since the fall. Also pain in the right hip. In the ER presentation on June 03 right hip x-ray did show subacute avulsion of the greater trochanter. Because of fall patient also limited range of motion of left shoulder. Outpatient not barely able to move not even able to get out to urinate. Has been wetting the culture has been sleeping. Appetite is good. No fever no chills. Urine frequency. Does not have good control of the bladder. Good control on the bowels ears. Patient for about 20 years has a stutter. After he came out of her diabetic coma,. No respiratory symptoms. Patient also has a wound on the left heel. Dressing changed from Dr. Bell's wound care team. Painful. Some drainage. 06/07/2023: Up in a recliner. Feeling a bit better. Eating well. Seen by orthopedics Dr. Headley. Will follow up outpatient for the left shoulder. Right hip weightbearing as tolerated. With walker and assistance. Seen by wound care team. Nonweightbearing to the left heel. Seen by vascular Dr. Jackman. Offload both the years. Soft green MediPort. We will follow up outpatient. 06/08/2023: Patient's blood cultures are growing presumptive staph aureus. Woun d cultures are growing Streptococcus agalactiae. Patient is on IV Ancef. Eating well. For increased blood pressure increase Lopressor to 50 mg twice a day. Active Medications Hydrocodone Bitart/Acetaminophen (Hydrocodone/Apap 5-325mg 1 Each Tab) 1 each PO Q4HR PRN PRN Reason: Pain Last Admin: 06/08/23 20:01 Dose: 1 each Aspirin (Aspirin 81 Mg) 81 mg PO DAILY [facility] Last Admin: 06/08/23 08:32 Dose: 81 mg Atorvastatin Calcium (Atorvastatin 80 Mg Tab) 80 mg PO DAILY [facility] Last Admin: 06/08/23 08:32 Dose: 80 mg Dapagliflozin (Dapagliflozin Propanediol 10 Mg Tablet) 10 mg PO DAILY [facility] Last Admin: 06/08/23 08:32 Dose: 10 mg Dextrose/Water (Dextrose 50% Syringe 50 Ml) 25 ml IVP PER PROTOCOL PRN; Protocol PRN Reason: Hypoglycemia Dextrose/Water (Dextrose 50% Syringe 50 Ml) 50 ml IVP PER PROTOCOL PRN; Protocol PRN Reason: Hypoglycemia Enoxaparin Sodium (Enoxaparin 40 Mg/0.4 Ml Syringe) 40 mg SQ DAILY [facility] Last Admin: 06/08/23 08:32 Dose: 40 mg Escitalopram Oxalate (Escitalopram 10 Mg Tab) 10 mg PO DAILY [facility] Last Admin: 06/08/23 08:32 Dose: 10 mg Ferrous Sulfate (Ferrous Sulfate 325 Mg Tab) 325 mg PO DAILY [facility] Last Admin: 06/08/23 08:32 Dose: 325 mg Gabapentin (Gabapentin 300 Mg Cap) 300 mg PO HS [facility] Last Admin: 06/08/23 20:01 Dose: 300 mg Cefazolin Sodium 2 gm/ Sodium (Chloride) 50 mls @ 100 mls/hr IVPB Q8HR [facility] Last Admin: 06/08/23 15:00 Dose: 100 mls/hr Insulin Aspart (Insulin Aspart (Novolog) 100 Unit/Ml Vial) 0 unit SQ AC-TID [facility]; Protocol Last Admin: 06/08/23 18:11 Dose: 2 unit Insulin Detemir (Insulin Detemir (Levemir) 100 Unit/Ml Syr) 26 unit SQ [facility] Isosorbide Mononitrate (Isosorbide Mononitrate Er 30 Mg Tab.Er.24h) 30 mg PO DAILY [facility] Last Admin: 06/08/23 08:32 Dose: 30 mg Lactic Acid (Ammonium Lactate 12% Cream 140 Gm Tube) 1 applic TOPICAL BID PRN; Protocol PRN Reason: Dry Skin Levothyroxine Sodium (Levothyroxine 137 Mcg Tab) 137 mcg PO DAILY@0630 [facility] Last Admin: 06/08/23 06:16 Dose: 137 mcg Metformin HCl (Metformin 500 Mg Tab) 500 mg PO BID-W/MEALS [facility] Last Admin: 06/08/23 18:11 Dose: 500 mg Metoprolol Tartrate (Metoprolol Tartrate 25 Mg Tab) 25 mg PO BID [facility] Last Admin: 06/08/23 20:00 Dose: 25 mg Pantoprazole Sodium (Pantoprazole 40 Mg Tablet) 40 mg PO AC-BRKFST [facility] Last Admin: 06/08/23 06:16 Dose: 40 mg Trospium (Trospium Chloride 20 Mg Tablet) 20 mg PO DAILY [facility] Last Admin: 06/08/23 08:31 Dose: 20 mg Past medical history to include: CAD, diabetes, GERD, hypertension, hyperlipidemia, hypothyroid, peripheral neuropathy,'s coronary artery disease with stent and bypass, PAD, depression Social history: Lives with sister German who is also the POA. Former smoker. Marijuana. Physical examination: VITAL SIGNS: 98.2, 65, 16, 165/70, 96% room air GENERAL: BMI 23, in a recliner. Awake. Comfortable. EYES: Pupils equal. Conjunctiva normal. HEENT: External appearance of nose and ears normal, oral cavity grossly normal. NECK: JVD not raised; masses not palpable. HEART: First and second heart sounds are normal; no edema. LUNGS: Respiratory rate normal; clear to auscultation. ABDOMEN: Soft, nontender, liver spleen not palpable, no masses palpable. PSYCH: Patient is able to answer simple questions.l. MUSCULOSKELETAL:No Clubbing/cyanosis;muscles-grossly intact. Limited range of motion left shoulder and the right hip. OA. DERMATOLOGICAL: Left heel ulcer. INVESTIGATIONS, reviewed in the clinical context: June 08: White count 8.7 hemoglobin 9.9 potassium 4.5 creatinine 0.8 Arterial ultrasound left lower extremity: Evidence of vessel hardening. June 07: White count 8.6 hemoglobin 9.9 platelets 393 sodium 136 potassium 4.6 creatinine 0.9. CRP 13.8 White count 8.8 hemoglobin 11.1 platelets 327 sodium 135 potassium 5.3 BUN 25 creatinine 0.67 Troponin I 0.013 UA positive for leukoesterase, WBC creatinine 182 bacteria and rare squamous epithelial less than 1 Chest x-ray film personally reviewed by me-cardiomegaly. Questionable chronic changes. Left shoulder x-ray: No fracture EKG tracing personally reviewed by me-no sinus rhythm. CT brain seeks spine without contrast: No fracture age-related changes. Right hip x-ray [June 03]: Subacute avulsion of the greater trochanter Assessment and plan: -Multiple falls related to underlying left shoulder injury, right hip injury, likely precipitating the initial fall in March of this year. 10 days ago patient has not undertaken fall from the stairs about 10 stairs down. -Sepsis and blood cultures positive for presumptive staph aureus.: New diagnosis Repeat blood cultures from June 08 pending. IV Ancef. -Likely left shoulder rotator cuff injury secondary to fall about 10 days ago. X-rays ruled out fracture. \ Seen by Dr. Pack. With follow-up outpatient. -Right great greater trochanter avulsion fracture. Seen by Dr. Pack. No surgical intervention -Left heel ulcer stage I, not infected., Probably secondary to diabetes mellitus type 2 Seen by vascular and ID. Wound care. Offload the heel -Diabetes mellitus type 2, uncontrolled with hyperglycemia Metformin. Increase Levemir 26 units.. Follow Accu-Cheks and sliding scale. jardiance -Depression Lexapro -Acute UTI with cystitis IV Ancef -Hyperlipidemia Lipitor -CAD with a prior history of stent and a bypass Aspirin. Lipitor. Imdur. Lopressor. -Hypothyroid Synthroid -Chronic stuttering -Patient's sister German is the POA -Full code Increase Levemir to 26 units. On IV Ancef for positive blood cultures. Repeat blood cultures pending. Other medications to continue.
[2023-06-08 20:52] LABS: Glucose,Whole Blood 296 mg/dL (70-110)
[2023-06-08] MEDS: METOPROLOL TARTRATE 50 MG TAB PO SCH (21:29)
[2023-06-08] MEDS: INSULIN DETEMIR (LEVEMIR) 100 UNIT/ML SYR SQ SCH (21:29)
--- NOTE | 2023-06-08 22:23 | P.PN ---
Subjective Progress Note Date: 06/07/23 Principal diagnosis: Left heel ulcer and bacteremia Patient is a 72-year-old male with a past medical history significant for diabetes mellitus hypertension hyperlipidemia NM coronary artery disease did have a recent discharge from [place] [facility], presenting to the hospital with weakness and fall and did have wound to the left heel area, subsequently blood cultures currently positive with MSSA. On today's evaluation that is 06/07/2023 patient remains to be afebrile, patient is breathing comfortably on room air no chest pain no shortness of the cough no nausea vomiting abdominal pain still complaining of pain to the left heel area. Patient had a hemoglobin of 9.9 white of 8.64 creatinine 0 point 9 repeat urine is positive blood culture with MSSA left heel culture with Streptococcus agalactiae Objective - Vital Signs Vital signs: Vital Signs Temp 98.4 F 06/07/23 07:00 Pulse 72 06/07/23 07:00 Resp 18 06/07/23 07:00 BP 161/78 06/07/23 07:00 Pulse Ox 95 06/07/23 07:00 FiO2 Intake & Output 06/06/23 06/07/23 06/07/23 18:59 06:59 18:59 Intake Total 1182 560 Output Total 1150 800 Balance 1182 -1150 -240 Weight 72.575 kg 72.575 kg Intake: Oral 1182 560 Output: Urine 1150 800 Other: Voiding Method Diaper Diaper Diaper External Catheter External Catheter External Catheter - Exam GENERAL DESCRIPTION: Elderly male lying in bed in no distress RESPIRATORY SYSTEM: Unlabored breathing , decreased breath sounds at bases HEART: S1 S2 regular rate and rhythm ,no loud murmurs ABDOMEN: Soft , no tenderness EXTREMITIES: Left heel is currently dressed - Labs CBC & Chem 7: 06/08/23 06:00 06/08/23 06:00 Labs: Abnormal Lab Results - Last 24 Hours (Table) 06/06/23 06/06/23 06/07/23 Range/Units 17:44 20:06 06:09 POC Glucose (mg/dL) 288 H 300 H 165 H (70-110) mg/dL Urine Protein (Negative) Urine Glucose (UA) (Negative) Urine Blood (Negative) Ur Leukocyte Esterase (Negative) Urine WBC (0-5) /hpf Urine WBC Clumps (None) /hpf Urine Bacteria (None) /hpf 06/07/23 06/07/23 Range/Units 11:35 12:24 POC Glucose (mg/dL) 232 H (70-110) mg/dL Urine Protein 1+ H (Negative) Urine Glucose (UA) 4+ H (Negative) Urine Blood Small H (Negative) Ur Leukocyte Esterase Large H (Negative) Urine WBC >182 H (0-5) /hpf Urine WBC Clumps Many H (None) /hpf Urine Bacteria Rare H (None) /hpf Microbiology - Last 24 Hours (Table) 06/06/23 10:15 Blood Culture Gram Stain - Preliminary Blood 06/06/23 10:00 Blood Culture Gram Stain - Preliminary Blood Assessment and Plan (1) Bacteremia Current Visit: Yes Status: Acute Code(s): R78.81 - BACTEREMIA SNOMED Code(s): 7356476 Plan: 1patient presented hospital with weakness multiple falls which is likely multifactorial patient did have a significantly positive UA some vague urinary symptoms underlying urinary source are not really excluded 2-patient did have a stage I pressure ulcer to the left heel area no surrounding erythema 3patient with a positive blood culture with MSSA source questionably urinary versus left heel ulcer patient to continue cefazolin blood culture has been repeated document clearance of his bacteremia Dictation was produced using [employer] dictation software. please excuse any grammatical, word or spelling errors. Time with Patient: Less than 30
[2023-06-09 06:15] LABS: Glucose,Whole Blood 216 mg/dL (70-110)
[2023-06-09] MEDS: INSULIN ASPART (NovoLOG) 100 UNIT/ML VIAL SQ SCH ×4 (06:24→21:10)
[2023-06-09] MEDS: HYDROcodone/APAP 5-325MG 1 EACH TAB PO PRN ×3 (06:25→20:45)
[2023-06-09] MEDS: LEVOTHYROXINE 137 MCG TAB PO SCH (06:25)
[2023-06-09] MEDS: PANTOPRAZOLE 40 MG TABLET PO SCH (06:25)
[2023-06-09] MEDS: DAPAGLIFLOZIN PROPANEDIOL 10 MG TABLET PO SCH (08:47)
[2023-06-09] MEDS: FERROUS SULFATE 325 MG TAB PO SCH (08:47)
[2023-06-09] MEDS: METOPROLOL TARTRATE 50 MG TAB PO SCH ×2 (08:47→20:46)
[2023-06-09] MEDS: ENOXAPARIN 40 MG/0.4 ML SYRINGE SQ SCH (08:47)
[2023-06-09] MEDS: ASPIRIN 81 MG PO SCH (08:47)
[2023-06-09] MEDS: ESCITALOPRAM 10 MG TAB PO SCH (08:47)
[2023-06-09] MEDS: ATORVASTATIN 80 MG TAB PO SCH (08:47)
[2023-06-09] MEDS: metFORMIN 500 MG TAB PO SCH ×2 (08:47→17:59)
[2023-06-09] MEDS: TROSPIUM CHLORIDE 20 MG TABLET PO SCH (08:47)
[2023-06-09] MEDS: ISOSORBIDE MONONITRATE ER 30 MG TAB.ER.24H PO SCH (08:47)
[2023-06-09] MEDS: VANCOMYCIN 1,250 MG in SODIUM CHLORIDE 0.9% 250 ML IVPB SCH ×2 (10:32→21:10)
[2023-06-09 12:28] LABS: Glucose,Whole Blood 259 mg/dL (70-110)
--- NOTE | 2023-06-09 13:27 | P.PN ---
Subjective Progress Note Date: 06/09/23 Principal diagnosis: Pressure ulcer Patient seen and examined today as a follow-up as requested by infectious disease. Patient had a wound culture showing presumptive MRSA and positive blood cultures. Patient denies any fevers or chills. He does have significant tenderness to his left heel with palpation or pressure. Green soft heel protector in place. No leukocytosis. Objective - Vital Signs Vital signs: Vital Signs Temp 98.1 F 06/09/23 07:15 Pulse 58 L 06/09/23 07:15 Resp 18 06/09/23 07:15 BP 185/74 06/09/23 07:15 Pulse Ox 95 06/09/23 08:05 FiO2 Intake & Output 06/08/23 06/09/23 06/09/23 18:59 06:59 18:59 Intake Total 1782 1180 Output Total 1500 2450 Balance 282 -2450 1180 Intake: Oral 1782 1180 Output: Urine 1500 2450 Other: Voiding Method Diaper Diaper Diaper External Catheter External Catheter External Catheter # Voids 300 - Exam General appearance: The patient is alert, oriented, appears in no acute distress. HET: Head is normocephalic and atraumatic. Neck: Supple. Abdomen: Soft, nondistended. Extremities: Palpable bilateral femoral and popliteal pulses, palpable bypass right lower extremity. Bilateral lower extremities warm to the touch with good capillary refill. Left heel with pressure ulcer with eschar, no pus or surrounding erythema. Tender to palpation. Neurological: No focal deficits. - Labs CBC & Chem 7: 06/08/23 06:00 06/08/23 06:00 Labs: Abnormal Lab Results - Last 24 Hours (Table) 06/08/23 06/08/23 06/09/23 Range/Units 17:30 20:50 06:13 POC Glucose (mg/dL) 214 H 296 H 216 H (70-110) mg/dL 06/09/23 Range/Units 12:26 POC Glucose (mg/dL) 259 H (70-110) mg/dL Microbiology - Last 24 Hours (Table) 06/08/23 06:00 Blood Culture - Preliminary Blood 06/07/23 11:35 Urine Culture - Final Urine,Voided 06/06/23 17:46 Gram Stain - Preliminary Foot - Left Wound Culture - Preliminary Strep agalactiae - (group b) Presumptive MRSA Group D Enterococcus 06/06/23 10:15 Blood Culture Gram Stain - Preliminary Blood Blood Culture - Preliminary Presumptive Staph aureus 06/06/23 10:00 Blood Culture Gram Stain - Preliminary Blood Assessment and Plan Assessment: 1. Pressure ulcer left heel 2. Weakness 3. Multiple recent falls with right hip fracture, nonsurgical 4. Positive wound culture 5. Positive blood cultures 6. Diabetes mellitus 7. Hyperglycemia 8. Hyperkalemia 9. History coronary artery disease status post CABG, cardiac stent 10. History of peripheral arterial disease, with possible revascularization 11. History hypertension and hyperlipidemia Plan: 1. Continue symptomatic and supportive care 2. Continue local wound care per recommendations, and follow up outpatient with wound clinic 3. Offload Pressure to bilateral heels, recommend soft green mediboots 4. Arterial ultrasound of lower extremities ordered and reviewed 5. There is no indication for surgical debridement at this time. Patient would benefit for outpatient wound care. 6. Nonweightbearing to left heel Thank you for this consultation. The impression and plan of care has been dictated as directed. Dr. Romeo I performed a history and examination of this patient, discussed the same with the dictator. I agree with the dictator's note ,documented as a scribe. Any additional findings or plans will be noted.
[2023-06-09 17:13] LABS: Glucose,Whole Blood 304 mg/dL (70-110)
[2023-06-09 20:44] LABS: Glucose,Whole Blood 339 mg/dL (70-110)
[2023-06-09] MEDS: INSULIN DETEMIR (LEVEMIR) 100 UNIT/ML SYR SQ SCH (20:44)
[2023-06-09] MEDS: GABAPENTIN 300 MG CAP PO SCH (20:46)
[2023-06-09] MEDS ORDERED: INSULIN DETEMIR (LEVEMIR) 100 UNIT/ML SYR SQ SCH (22:38)
--- NOTE | 2023-06-09 22:42 | P.PN ---
Progress Note - Text Progress Note Date: 06/09/23 Chief Complaint: Falls This is a 72-year-old patient who follows with Dr. Bell. History is obtained but the sister to patient at the bedside. Patient's sister is the guardian. And patient lives with her. Patient had a fall in March 31. Says that he is at least had 3 falls. Very recently patient had a fall where he went down about 10 stairs. When tried to go up stairs. The last few days patient started using a walker. He has pain in the left shoulder not able to move much since the fall. Also pain in the right hip. In the ER presentation on June 03 right hip x-ray did show subacute avulsion of the greater trochanter. Because of fall patient also limited range of motion of left shoulder. Outpatient not barely able to move not even able to get out to urinate. Has been wetting the culture has been sleeping. Appetite is good. No fever no chills. Urine frequency. Does not have good control of the bladder. Good control on the bowels ears. Patient for about 20 years has a stutter. After he came out of her diabetic coma,. No respiratory symptoms. Patient also has a wound on the left heel. Dressing changed from Dr. Bell's wound care team. Painful. Some drainage. 06/07/2023: Up in a recliner. Feeling a bit better. Eating well. Seen by orthopedics Dr. Headley. Will follow up outpatient for the left shoulder. Right hip weightbearing as tolerated. With walker and assistance. Seen by wound care team. Nonweightbearing to the left heel. Seen by vascular Dr. Jackman. Offload both the years. Soft green MediPort. We will follow up outpatient. 06/08/2023: Patient's blood cultures are growing presumptive staph aureus. Woun d cultures are growing Streptococcus agalactiae. Patient is on IV Ancef. Eating well. For increased blood pressure increase Lopressor to 50 mg twice a day. 06/09/2023: Discussed with Dr. Romeo from vascular. No surgical intervention on the heel wound. Cultures finalized for MSSA. Repeat blood cultures pending. Active Medications Hydrocodone Bitart/Acetaminophen (Hydrocodone/Apap 5-325mg 1 Each Tab) 1 each PO Q4HR PRN PRN Reason: Pain Last Admin: 06/09/23 20:45 Dose: 1 each Aspirin (Aspirin 81 Mg) 81 mg PO DAILY [facility] Last Admin: 06/09/23 08:47 Dose: 81 mg Atorvastatin Calcium (Atorvastatin 80 Mg Tab) 80 mg PO DAILY [facility] Last Admin: 06/09/23 08:47 Dose: 80 mg Dapagliflozin (Dapagliflozin Propanediol 10 Mg Tablet) 10 mg PO DAILY [facility] Last Admin: 06/09/23 08:47 Dose: 10 mg Dextrose/Water (Dextrose 50% Syringe 50 Ml) 25 ml IVP PER PROTOCOL PRN; Protocol PRN Reason: Hypoglycemia Dextrose/Water (Dextrose 50% Syringe 50 Ml) 50 ml IVP PER PROTOCOL PRN; Protocol PRN Reason: Hypoglycemia Enoxaparin Sodium (Enoxaparin 40 Mg/0.4 Ml Syringe) 40 mg SQ DAILY [facility] Last Admin: 06/09/23 08:47 Dose: 40 mg Escitalopram Oxalate (Escitalopram 10 Mg Tab) 10 mg PO DAILY [facility] Last Admin: 06/09/23 08:47 Dose: 10 mg Ferrous Sulfate (Ferrous Sulfate 325 Mg Tab) 325 mg PO DAILY [facility] Last Admin: 06/09/23 08:47 Dose: 325 mg Gabapentin (Gabapentin 300 Mg Cap) 300 mg PO HS [facility] Last Admin: 06/09/23 20:46 Dose: 300 mg Vancomycin HCl 1,250 mg/ (Sodium Chloride) 250 mls @ 125 mls/hr IVPB Q12HR [facility] Last Admin: 06/09/23 21:10 Dose: 125 mls/hr Insulin Aspart (Insulin Aspart (Novolog) 100 Unit/Ml Vial) 0 unit SQ AC-TID [facility]; Protocol Last Admin: 06/09/23 18:00 Dose: 4 unit Insulin Aspart (Insulin Aspart (Novolog) 100 Unit/Ml Vial) 0 unit SQ ACHS [facility]; Protocol Last Admin: 06/09/23 21:10 Dose: 4 unit Insulin Detemir (Insulin Detemir (Levemir) 100 Unit/Ml Syr) 26 unit SQ HS [facility] Last Admin: 06/09/23 20:44 Dose: 26 unit Isosorbide Mononitrate (Isosorbide Mononitrate Er 30 Mg Tab.Er.24h) 30 mg PO DAILY [facility] Last Admin: 06/09/23 08:47 Dose: 30 mg Lactic Acid (Ammonium Lactate 12% Cream 140 Gm Tube) 1 applic TOPICAL BID PRN; Protocol PRN Reason: Dry Skin Levothyroxine Sodium (Levothyroxine 137 Mcg Tab) 137 mcg PO DAILY@0630 [facility] Last Admin: 06/09/23 06:25 Dose: 137 mcg Metformin HCl (Metformin 500 Mg Tab) 500 mg PO BID-W/MEALS [facility] Last Admin: 06/09/23 17:59 Dose: 500 mg Metoprolol Tartrate (Metoprolol Tartrate 50 Mg Tab) 50 mg PO BID [facility] Last Admin: 06/09/23 20:46 Dose: 50 mg Pantoprazole Sodium (Pantoprazole 40 Mg Tablet) 40 mg PO AC-BRKFST [facility] Last Admin: 06/09/23 06:25 Dose: 40 mg Trospium (Trospium Chloride 20 Mg Tablet) 20 mg PO DAILY [facility] Last Admin: 06/09/23 08:47 Dose: 20 mg Past medical history to include: CAD, diabetes, GERD, hypertension, hyperlipidemia, hypothyroid, peripheral neuropathy,'s coronary artery disease with stent and bypass, PAD, depression Social history: Lives with sister German who is also the POA. Former smoker. Marijuana. Physical examination: VITAL SIGNS: Weight 0.3, 89, 18, 170/64, 96% room air GENERAL: BMI 23, in a recliner. Awake. Comfortable. EYES: Pupils equal. Conjunctiva normal. HEENT: External appearance of nose and ears normal, oral cavity grossly normal. NECK: JVD not raised; masses not palpable. HEART: First and second heart sounds are normal; no edema. LUNGS: Respiratory rate normal; clear to auscultation. ABDOMEN: Soft, nontender, liver spleen not palpable, no masses palpable. PSYCH: Patient is able to answer simple questions.l. MUSCULOSKELETAL:No Clubbing/cyanosis;muscles-grossly intact. Limited range of motion left shoulder and the right hip. OA. DERMATOLOGICAL: Left heel ulcer. INVESTIGATIONS, reviewed in the clinical context: June 08: White count 8.7 hemoglobin 9.9 potassium 4.5 creatinine 0.8 Arterial ultrasound left lower extremity: Evidence of vessel hardening. June 07: White count 8.6 hemoglobin 9.9 platelets 393 sodium 136 potassium 4.6 creatinine 0.9. CRP 13.8 White count 8.8 hemoglobin 11.1 platelets 327 sodium 135 potassium 5.3 BUN 25 creatinine 0.67 Troponin I 0.013 UA positive for leukoesterase, WBC creatinine 182 bacteria and rare squamous epithelial less than 1 Chest x-ray film personally reviewed by me-cardiomegaly. Questionable chronic changes. Left shoulder x-ray: No fracture EKG tracing personally reviewed by me-no sinus rhythm. CT brain seeks spine without contrast: No fracture age-related changes. Right hip x-ray [June 03]: Subacute avulsion of the greater trochanter Assessment and plan: -Multiple falls related to underlying left shoulder injury, right hip injury, likely precipitating the initial fall in March of this year. 10 days ago patient has not undertaken fall from the stairs about 10 stairs down. -Sepsis and blood cultures positive for MSSA.: Repeat blood cultures from June 08 pending. IV Ancef. -Likely left shoulder rotator cuff injury secondary to fall about 10 days ago. X-rays ruled out fracture. \ Seen by Dr. Pack. With follow-up outpatient. -Right great greater trochanter avulsion fracture. Seen by Dr. Pack. No surgical intervention -Left heel ulcer stage I, not infected., Probably secondary to diabetes mellitus type 2 Seen by vascular and ID. Wound care. Offload the heel. Not any surgical intervention. -Diabetes mellitus type 2, uncontrolled with hyperglycemia Metformin. Increase Levemir 32 units.. Follow Accu-Cheks and sliding scale. jardiance -Depression Lexapro -Acute UTI with cystitis IV Ancef -Hyperlipidemia Lipitor -CAD with a prior history of stent and a bypass Aspirin. Lipitor. Imdur. Lopressor. -Essential hypertension, uncontrolled Lopressor 50 mg twice a day. Add lisinopril hydrochlorothiazide 08/10.5 one tablet twice a day. -Hypothyroid Synthroid -Chronic stuttering -Patient's sister German is the POA -Full code Patient has been accepted [facility] for rehab. Once antibiotics finalized then will get discharged.
[2023-06-09] MEDS: LISINOPRIL-HCTZ 10-12.5 MG 1 EACH TAB PO SCH (22:55)
[2023-06-10] MEDS: HYDROcodone/APAP 5-325MG 1 EACH TAB PO PRN ×5 (02:56→22:04)
[2023-06-10 06:18] LABS: Glucose,Whole Blood 93 mg/dL (70-110)
[2023-06-10] MEDS: INSULIN ASPART (NovoLOG) 100 UNIT/ML VIAL SQ SCH ×4 (06:22→21:19)
[2023-06-10] MEDS: metFORMIN 500 MG TAB PO SCH ×2 (06:27→17:51)
[2023-06-10] MEDS: LEVOTHYROXINE 137 MCG TAB PO SCH (06:27)
[2023-06-10] MEDS: PANTOPRAZOLE 40 MG TABLET PO SCH (06:27)
[2023-06-10 08:01] LABS: African American GFR (CKD) >90 (>60 ml/min/1.73 sqM); Non-African American GFR(CKD) >90 (>60 ml/min/1.73 sqM)
[2023-06-10] MEDS: ATORVASTATIN 80 MG TAB PO SCH (08:14)
[2023-06-10] MEDS: METOPROLOL TARTRATE 50 MG TAB PO SCH ×2 (08:14→21:19)
[2023-06-10] MEDS: LISINOPRIL-HCTZ 10-12.5 MG 1 EACH TAB PO SCH ×2 (08:14→21:19)
[2023-06-10] MEDS: TROSPIUM CHLORIDE 20 MG TABLET PO SCH (08:14)
[2023-06-10] MEDS: ENOXAPARIN 40 MG/0.4 ML SYRINGE SQ SCH (08:15)
[2023-06-10] MEDS: DAPAGLIFLOZIN PROPANEDIOL 10 MG TABLET PO SCH (08:15)
[2023-06-10] MEDS: ISOSORBIDE MONONITRATE ER 30 MG TAB.ER.24H PO SCH (08:15)
[2023-06-10] MEDS: ASPIRIN 81 MG PO SCH (08:15)
[2023-06-10] MEDS: VANCOMYCIN 1,250 MG in SODIUM CHLORIDE 0.9% 250 ML IVPB SCH ×2 (08:16→21:19)
[2023-06-10] MEDS: ESCITALOPRAM 10 MG TAB PO SCH (08:17)
[2023-06-10] MEDS: FERROUS SULFATE 325 MG TAB PO SCH (08:45)
[2023-06-10 12:15] LABS: Glucose,Whole Blood 286 mg/dL (70-110)
--- NOTE | 2023-06-10 16:03 | P.PN ---
Progress Note - Text Progress Note Date: 06/10/23 Chief Complaint: Falls This is a 72-year-old patient who follows with Dr. Bell. History is obtained but the sister to patient at the bedside. Patient's sister is the guardian. And patient lives with her. Patient had a fall in March 31. Says that he is at least had 3 falls. Very recently patient had a fall where he went down about 10 stairs. When tried to go up stairs. The last few days patient started using a walker. He has pain in the left shoulder not able to move much since the fall. Also pain in the right hip. In the ER presentation on June 03 right hip x-ray did show subacute avulsion of the greater trochanter. Because of fall patient also limited range of motion of left shoulder. Outpatient not barely able to move not even able to get out to urinate. Has been wetting the culture has been sleeping. Appetite is good. No fever no chills. Urine frequency. Does not have good control of the bladder. Good control on the bowels ears. Patient for about 20 years has a stutter. After he came out of her diabetic coma,. No respiratory symptoms. Patient also has a wound on the left heel. Dressing changed from Dr. Bell's wound care team. Painful. Some drainage. 06/07/2023: Up in a recliner. Feeling a bit better. Eating well. Seen by orthopedics Dr. Headley. Will follow up outpatient for the left shoulder. Right hip weightbearing as tolerated. With walker and assistance. Seen by wound care team. Nonweightbearing to the left heel. Seen by vascular Dr. Jackman. Offload both the years. Soft green MediPort. We will follow up outpatient. 06/08/2023: Patient's blood cultures are growing presumptive staph aureus. Woun d cultures are growing Streptococcus agalactiae. Patient is on IV Ancef. Eating well. For increased blood pressure increase Lopressor to 50 mg twice a day. 06/09/2023: Discussed with Dr. Romeo from vascular. No surgical intervention on the heel wound. Cultures finalized for MSSA. Repeat blood cultures pending. 06/10/2023: Discussed with Dr. Go. He feels heel wound needs to be debrided. For deep cultures. He'll speak to vascular. Meantime continue IV vancomycin. Patient tolerating diet well. Active Medications Hydrocodone Bitart/Acetaminophen (Hydrocodone/Apap 5-325mg 1 Each Tab) 1 each PO Q4HR PRN PRN Reason: Pain Last Admin: 06/10/23 12:58 Dose: 1 each Aspirin (Aspirin 81 Mg) 81 mg PO DAILY [facility] Last Admin: 06/10/23 08:15 Dose: 81 mg Atorvastatin Calcium (Atorvastatin 80 Mg Tab) 80 mg PO DAILY [facility] Last Admin: 06/10/23 08:14 Dose: 80 mg Dapagliflozin (Dapagliflozin Propanediol 10 Mg Tablet) 10 mg PO DAILY [facility] Last Admin: 06/10/23 08:15 Dose: 10 mg Dextrose/Water (Dextrose 50% Syringe 50 Ml) 25 ml IVP PER PROTOCOL PRN; Protocol PRN Reason: Hypoglycemia Dextrose/Water (Dextrose 50% Syringe 50 Ml) 50 ml IVP PER PROTOCOL PRN; Protocol PRN Reason: Hypoglycemia Enoxaparin Sodium (Enoxaparin 40 Mg/0.4 Ml Syringe) 40 mg SQ DAILY [facility] Last Admin: 06/10/23 08:15 Dose: 40 mg Escitalopram Oxalate (Escitalopram 10 Mg Tab) 10 mg PO DAILY [facility] Last Admin: 06/10/23 08:17 Dose: 10 mg Ferrous Sulfate (Ferrous Sulfate 325 Mg Tab) 325 mg PO DAILY [facility] Last Admin: 06/10/23 08:45 Dose: 325 mg Gabapentin (Gabapentin 300 Mg Cap) 300 mg PO HS [facility] Last Admin: 06/09/23 20:46 Dose: 300 mg Lisinopril/HCTZ (Lisinopril-Hctz 10-12.5 Mg 1 Each Tab) 1 each PO BID [facility] Last Admin: 06/10/23 08:14 Dose: 1 each Vancomycin HCl 1,250 mg/ (Sodium Chloride) 250 mls @ 125 mls/hr IVPB Q12HR [facility] Last Admin: 06/10/23 08:16 Dose: 125 mls/hr Insulin Aspart (Insulin Aspart (Novolog) 100 Unit/Ml Vial) [address] [facility]; Protocol Last Admin: 06/10/23 12:59 Dose: 3 unit Insulin Detemir (Insulin Detemir (Levemir) 100 Unit/Ml Syr) 32 unit SQ [facility] Isosorbide Mononitrate (Isosorbide Mononitrate Er 30 Mg Tab.Er.24h) 30 mg PO DAILY [facility] Last Admin: 06/10/23 08:15 Dose: 30 mg Lactic Acid (Ammonium Lactate 12% Cream 140 Gm Tube) 1 applic TOPICAL BID PRN; Protocol PRN Reason: Dry Skin Levothyroxine Sodium (Levothyroxine 137 Mcg Tab) 137 mcg PO DAILY@0630 [facility] Last Admin: 06/10/23 06:27 Dose: 137 mcg Metformin HCl (Metformin 500 Mg Tab) 500 mg PO BID-W/MEALS [facility] Last Admin: 06/10/23 06:27 Dose: 500 mg Metoprolol Tartrate (Metoprolol Tartrate 50 Mg Tab) 50 mg PO BID [facility] Last Admin: 06/10/23 08:14 Dose: 50 mg Miscellaneous Information (Vancomycin Trough Due 1 Each Misc) 1 each MISCELLANE ONCE ONE Stop: 06/11/23 08:01 Pantoprazole Sodium (Pantoprazole 40 Mg Tablet) 40 mg PO AC-BRKFST [facility] Last Admin: 06/10/23 06:27 Dose: 40 mg Trospium (Trospium Chloride 20 Mg Tablet) 20 mg PO DAILY [facility] Last Admin: 06/10/23 08:14 Dose: 20 mg Past medical history to include: CAD, diabetes, GERD, hypertension, hyperlipidemia, hypothyroid, peripheral neuropathy,'s coronary artery disease with stent and bypass, PAD, depression Social history: Lives with sister German who is also the POA. Former smoker. Marijuana. Physical examination: VITAL SIGNS: 98.1, 63, 16, 156/75, 93% room air GENERAL: BMI 23, in a recliner. Awake. Comfortable. EYES: Pupils equal. Conjunctiva normal. HEENT: External appearance of nose and ears normal, oral cavity grossly normal. NECK: JVD not raised; masses not palpable. HEART: First and second heart sounds are normal; no edema. LUNGS: Respiratory rate normal; clear to auscultation. ABDOMEN: Soft, nontender, liver spleen not palpable, no masses palpable. PSYCH: Patient is able to answer simple questions.l. MUSCULOSKELETAL:No Clubbing/cyanosis;muscles-grossly intact. Limited range of motion left shoulder and the right hip. OA. DERMATOLOGICAL: Left heel ulcer. INVESTIGATIONS, reviewed in the clinical context: June 08: White count 8.7 hemoglobin 9.9 potassium 4.5 creatinine 0.8 Arterial ultrasound left lower extremity: Evidence of vessel hardening. June 07: White count 8.6 hemoglobin 9.9 platelets 393 sodium 136 potassium 4.6 creatinine 0.9. CRP 13.8 White count 8.8 hemoglobin 11.1 platelets 327 sodium 135 potassium 5.3 BUN 25 creatinine 0.67 Troponin I 0.013 UA positive for leukoesterase, WBC creatinine 182 bacteria and rare squamous epithelial less than 1 Chest x-ray film personally reviewed by me-cardiomegaly. Questionable chronic changes. Left shoulder x-ray: No fracture EKG tracing personally reviewed by me-no sinus rhythm. CT brain seeks spine without contrast: No fracture age-related changes. Right hip x-ray [June 03]: Subacute avulsion of the greater trochanter Assessment and plan: -Multiple falls related to underlying left shoulder injury, right hip injury, likely precipitating the initial fall in March of this year. 10 days ago patient has not undertaken fall from the stairs about 10 stairs down. -Sepsis and blood cultures positive for MSSA.: Repeat blood cultures from June 08 pending. IV Ancef. -Likely left shoulder rotator cuff injury secondary to fall about 10 days ago. X-rays ruled out fracture. \ Seen by Dr. Pack. With follow-up outpatient. -Right great greater trochanter avulsion fracture. Seen by Dr. Pack. No surgical intervention -Left heel ulcer stage I, not infected., Probably secondary to diabetes mellitus type 2 Seen by vascular and ID. Wound care. Offload the heel. Not any surgical intervention per vascular. -Diabetes mellitus type 2, uncontrolled with hyperglycemia Metformin. Increase Levemir 32 units.. Follow Accu-Cheks and sliding scale. jardiance -Depression Lexapro -Acute UTI with cystitis IV Ancef -Hyperlipidemia Lipitor -CAD with a prior history of stent and a bypass Aspirin. Lipitor. Imdur. Lopressor. -Essential hypertension, uncontrolled Lopressor 50 mg twice a day. Add lisinopril hydrochlorothiazide /12.5 one tablet twice a day. -Hypothyroid Synthroid -Chronic stuttering -Patient's sister German is the POA -Full code Dr. Go from ID will speak to vascular about debridement and deep wound culture of the left heel wound.
[2023-06-10 17:31] LABS: Glucose,Whole Blood 370 mg/dL (70-110)
[2023-06-10 20:49] LABS: Glucose,Whole Blood 339 mg/dL (70-110)
[2023-06-10] MEDS: GABAPENTIN 300 MG CAP PO SCH (21:18)
[2023-06-10] MEDS: INSULIN DETEMIR (LEVEMIR) 100 UNIT/ML SYR SQ SCH (21:19)
--- NOTE | 2023-06-10 22:10 | P.PN ---
Subjective Progress Note Date: 06/08/23 Principal diagnosis: Left heel ulcer and bacteremia Patient is a 72-year-old male with a past medical history significant for diabetes mellitus hypertension hyperlipidemia [place] coronary artery disease did have a recent discharge from long-term, presenting to the hospital with weakness and fall and did have wound to the left heel area, subsequently blood cultures currently positive with MSSA. On today's evaluation that is 06/08/2023 the patient denies having any fever or chills the patient is breathing comfortably on room air patient denies having any chest pain shortness of breath or cough no abdominal pains and abdominal pain to the left heel area. Patient did have a hemoglobin of 9.9 white count was 8.76 sed rate is more than 130 creatinine 0.8 local cultures growing Streptococcus agalactiae and MRSA along with anaerobes blood culture with MSSA blood culture repeat currently pending Objective - Vital Signs Vital signs: Vital Signs Temp 98.3 F 06/08/23 07:20 Pulse 71 06/08/23 07:20 Resp 16 06/08/23 07:20 BP 180/79 06/08/23 07:20 Pulse Ox 98 06/08/23 07:20 FiO2 Intake & Output 06/07/23 06/08/23 06/08/23 18:59 06:59 18:59 Intake Total 1255 477 Output Total 1400 600 Balance -145 -600 477 Weight 72.575 kg Intake: Oral 1255 477 Output: Urine 1400 600 Other: Voiding Method Diaper Diaper Diaper External Catheter External Catheter External Catheter - Exam GENERAL DESCRIPTION: Elderly male lying in bed in no distress RESPIRATORY SYSTEM: Unlabored breathing , decreased breath sounds at bases HEART: S1 S2 regular rate and rhythm ,no loud murmurs ABDOMEN: Soft , no tenderness EXTREMITIES: Left heel is currently dressed - Labs CBC & Chem 7: 06/08/23 06:00 06/10/23 07:00 Labs: Abnormal Lab Results - Last 24 Hours (Table) 06/07/23 06/07/23 06/07/23 Range/Units 07:01 07:01 11:35 RBC 3.48 L (4.40-5.60) X 10*6/uL Hgb 9.9 L (13.0-17.0) d/dL Hct 31.5 L (39.6-50.0) % MCHC 31.4 L (32.0-37.0) d/dL RDW 15.1 H (11.5-14.5) % Lymphocytes # 0.83 L (0.90-5.00) X 10*3/uL ESR (0-20) mm/Hr BUN/Creatinine Ratio 22.00 H (12.00-20.00) Ratio Glucose 122 H (70-110) mg/dL POC Glucose (mg/dL) (70-110) mg/dL Calcium 8.3 L (8.7-10.3) mg/dL C-Reactive Protein 13.80 H (0.00-0.80) mg/dL Albumin 2.5 L (3.8-4.9) d/dL Globulin 4.4 H (1.6-3.3) d/dL Albumin/Globulin Ratio 0.57 L (1.60-3.17) Ratio Urine Protein 1+ H (Negative) Urine Glucose (UA) 4+ H (Negative) Urine Blood Small H (Negative) Ur Leukocyte Esterase Large H (Negative) Urine WBC >182 H (0-5) /hpf Urine WBC Clumps Many H (None) /hpf Urine Bacteria Rare H (None) /hpf 06/07/23 06/07/23 06/07/23 Range/Units 12:24 17:18 20:12 RBC (4.40-5.60) X 10*6/uL Hgb (13.0-17.0) d/dL Hct (39.6-50.0) % MCHC (32.0-37.0) d/dL RDW (11.5-14.5) % Lymphocytes # (0.90-5.00) X 10*3/uL ESR (0-20) mm/Hr BUN/Creatinine Ratio (12.00-20.00) Ratio Glucose (70-110) mg/dL POC Glucose (mg/dL) 232 H 290 H 347 H (70-110) mg/dL Calcium (8.7-10.3) mg/dL C-Reactive Protein (0.00-0.80) mg/dL Albumin (3.8-4.9) d/dL Globulin (1.6-3.3) d/dL Albumin/Globulin Ratio (1.60-3.17) Ratio Urine Protein (Negative) Urine Glucose (UA) (Negative) Urine Blood (Negative) Ur Leukocyte Esterase (Negative) Urine WBC (0-5) /hpf Urine WBC Clumps (None) /hpf Urine Bacteria (None) /hpf 06/08/23 06/08/23 Range/Units 06:00 06:09 RBC 3.46 L (4.40-5.60) X 10*6/uL Hgb 9.9 L (13.0-17.0) d/dL Hct 31.8 L (39.6-50.0) % MCHC 31.1 L (32.0-37.0) d/dL RDW 15.1 H (11.5-14.5) % Lymphocytes # (0.90-5.00) X 10*3/uL ESR >130 H (0-20) mm/Hr BUN/Creatinine Ratio (12.00-20.00) Ratio Glucose (70-110) mg/dL POC Glucose (mg/dL) 277 H (70-110) mg/dL Calcium (8.7-10.3) mg/dL C-Reactive Protein (0.00-0.80) mg/dL Albumin (3.8-4.9) d/dL Globulin (1.6-3.3) d/dL Albumin/Globulin Ratio (1.60-3.17) Ratio Urine Protein (Negative) Urine Glucose (UA) (Negative) Urine Blood (Negative) Ur Leukocyte Esterase (Negative) Urine WBC (0-5) /hpf Urine WBC Clumps (None) /hpf Urine Bacteria (None) /hpf Microbiology - Last 24 Hours (Table) 06/06/23 10:15 Blood Culture Gram Stain - Preliminary Blood Blood Culture - Preliminary Presumptive Staph aureus 06/06/23 10:00 Blood Culture Gram Stain - Preliminary Blood 06/06/23 17:46 Gram Stain - Preliminary Foot - Left Wound Culture - Preliminary Strep agalactiae - (group b) Assessment and Plan (1) Bacteremia Current Visit: Yes Status: Acute Code(s): R78.81 - BACTEREMIA SNOMED Code(s): 8556586 (2) Pressure ulcer, heel, left, unstageable Current Visit: Yes Status: Acute Code(s): L89.620 - PRESSURE ULCER OF LEFT HEEL, UNSTAGEABLE SNOMED Code(s): 82680551243506614 (3) Type 2 diabetes mellitus with foot ulcer Current Visit: Yes Status: Acute Code(s): E11.621 - TYPE 2 DIABETES MELLITUS WITH FOOT ULCER; L97.509 - NON-PRESSURE CHRONIC ULCER OTH PRT UNSP FOOT W UNSP SEVERITY SNOMED Code(s): 579623314 Plan: 1patient presented hospital with weakness multiple falls which is likely multifactorial patient did have a significantly positive UA some vague urinary symptoms underlying urinary source are not really excluded 2-patient did have a unstagble pressure ulcer to the left heel area Now with local cultures growing MRSA and Streptococcus we will discontinue cefazolin start the patient on vancomycin pharmacy to dose, patient benefit from surgical debridement and deep cultures Dictation was produced using [employer] dictation software. please excuse any grammatical, word or spelling errors. Time with Patient: Less than 30
--- NOTE | 2023-06-10 22:14 | P.PN ---
Subjective Progress Note Date: 06/09/23 Principal diagnosis: Left heel ulcer and bacteremia Patient is a 72-year-old male with a past medical history significant for diabetes mellitus hypertension hyperlipidemia [place] coronary artery disease did have a recent [facility] from [facility], presenting to the hospital with weakness and fall and did have wound to the left heel area, subsequently blood cultures currently positive with MSSA. On today's evaluation that is 06/09/2023 the patient remains to be afebrile patient is breathing comfortably on room air denies any chest pain shortness of breath or cough no abdominal pain and no diarrhea has been reported still complaining of pain to the left heel area. No new blood draw today patient did have a white count of 8.75 and a sed rate of more than 130 left heel culture positive for MRSA and strep Enterococcus and anaerobes, blood culture repeated so far pending Objective - Vital Signs Vital signs: Vital Signs Temp 98.1 F 06/09/23 07:15 Pulse 58 L 06/09/23 07:15 Resp 18 06/09/23 07:15 BP 185/74 06/09/23 07:15 Pulse Ox 95 06/09/23 08:05 FiO2 Intake & Output 06/08/23 06/09/23 06/09/23 18:59 06:59 18:59 Intake Total 1782 1180 Output Total 1500 2450 Balance 282 -2450 1180 Intake: Oral 1782 1180 Output: Urine 1500 2450 Other: Voiding Method Diaper Diaper Diaper External Catheter External Catheter External Catheter # Voids 300 - Exam GENERAL DESCRIPTION: Elderly male lying in bed in no distress RESPIRATORY SYSTEM: Unlabored breathing , decreased breath sounds at bases HEART: S1 S2 regular rate and rhythm ,no loud murmurs ABDOMEN: Soft , no tenderness EXTREMITIES: Left heel wound with black esher , surrounding redness and foul smell - Labs CBC & Chem 7: 06/08/23 06:00 06/10/23 07:00 Labs: Abnormal Lab Results - Last 24 Hours (Table) 06/08/23 06/08/23 06/09/23 Range/Units 17:30 20:50 06:13 POC Glucose (mg/dL) 214 H 296 H 216 H (70-110) mg/dL 06/09/23 Range/Units 12:26 POC Glucose (mg/dL) 259 H (70-110) mg/dL Microbiology - Last 24 Hours (Table) 06/07/23 11:35 Urine Culture - Final Urine,Voided 06/06/23 17:46 Gram Stain - Preliminary Foot - Left Wound Culture - Preliminary Strep agalactiae - (group b) Presumptive MRSA Group D Enterococcus 06/06/23 10:15 Blood Culture Gram Stain - Preliminary Blood Blood Culture - Preliminary Presumptive Staph aureus 06/06/23 10:00 Blood Culture Gram Stain - Preliminary Blood Assessment and Plan (1) Bacteremia Current Visit: Yes Status: Acute Code(s): R78.81 - BACTEREMIA SNOMED Code(s): 8192081 Plan: 1patient presented hospital with weakness multiple falls which is likely multifactorial patient did have a significantly positive UA some vague urinary symptoms underlying urinary source are not really excluded 2-patient did have a unstagble pressure ulcer to the left heel area Now with local cultures growing MRSA and Streptococcus , With concern for possible deep infection and foul-smelling from the left heel patient benefit from reevaluation by vascular surgery and debridement this was discussed with the [employer] for the vascular surgery await reevaluation continue with the vancomycin Dictation was produced using [employer] dictation software. please excuse any grammatical, word or spelling errors. Time with Patient: Less than 30
--- NOTE | 2023-06-10 22:17 | P.PN ---
Subjective Progress Note Date: 06/10/23 Principal diagnosis: Left heel ulcer and bacteremia Patient is a 72-year-old male with a past medical history significant for diabetes mellitus hypertension hyperlipidemia [place] coronary artery disease did have a recent discharge from [facility], presenting to the hospital with weakness and fall and did have wound to the left heel area, subsequently blood cultures currently positive with MSSA. On today's evaluation that is 06/10/2023 the patient Denies any fever or any chills, the patient is breathing comfortably on room air. Denies any chest pain or shortness with occasional cough no abdominal pain or diarrhea still complaining of pain to the left heel area. Patient did have a normal creatinine 0.71 today no CBC was done today local culture positive for MRSA strep and anaerobes blood culture with MSSA repeat blood culture negative so far Objective - Vital Signs Vital signs: Vital Signs Temp 98.3 F 06/10/23 15:00 Pulse 68 06/10/23 15:00 Resp 16 06/10/23 15:00 BP 148/70 06/10/23 15:00 Pulse Ox 96 06/10/23 15:00 FiO2 Intake & Output 06/09/23 06/10/23 06/10/23 18:59 06:59 18:59 Intake Total 2131 250 477 Output Total 1150 2500 1500 Balance 081 -0734 -1023 Intake: Oral 2131 250 477 Output: Urine 1150 2500 1500 Other: Voiding Method Diaper Diaper Diaper External Catheter External Catheter External Catheter - Exam GENERAL DESCRIPTION: Elderly male lying in bed in no distress RESPIRATORY SYSTEM: Unlabored breathing , decreased breath sounds at bases HEART: S1 S2 regular rate and rhythm ,no loud murmurs ABDOMEN: Soft , no tenderness EXTREMITIES: Left heel wound with black esher , surrounding redness and foul smell - Labs CBC & Chem 7: 06/08/23 06:00 06/10/23 07:00 Labs: Abnormal Lab Results - Last 24 Hours (Table) 06/09/23 06/09/23 06/10/23 Range/Units 17:12 20:41 12:13 POC Glucose (mg/dL) 304 H 339 H 286 H (70-110) mg/dL Microbiology - Last 24 Hours (Table) 06/08/23 06:00 Blood Culture - Preliminary Blood 06/06/23 17:46 Gram Stain - Preliminary Foot - Left Wound Culture - Preliminary Strep agalactiae - (group b) Presumptive MRSA Group D Enterococcus 06/06/23 17:46 Anaerobic Culture - Final Heel - Left Anaerobic Gm Negative Bacilli Anaerobic Gram Positive Cocci 06/06/23 10:15 Blood Culture Gram Stain - Final Blood Blood Culture - Final Staphylococcus aureus 06/06/23 10:00 Blood Culture Gram Stain - Final Blood Blood Culture - Final Staphylococcus aureus Assessment and Plan (1) Bacteremia Current Visit: Yes Status: Acute Code(s): R78.81 - BACTEREMIA SNOMED C ode(s): 6892659 Plan: 1patient presented hospital with weakness multiple falls which is likely multifactorial patient did have a significantly positive UA some vague urinary symptoms underlying urinary source are not really excluded 2-patient did have a unstagble pressure ulcer to the left heel area Now with local cultures growing MRSA and Streptococcus , With concern for possible deep infection and foul-smelling from the left heel patient benefit from surgical debridement that will determine the extent of infection and possible underlying osteo however vascular surgery wants debridement to be done as an outpatient, in my clinical opinion the patient benefit from surgical debridement during this hospital stay that will decrease the burden of infection and help heal his wound, the snooer the debridement the the greater the patient can be discharged for now continue with the vancomycin Dictation was produced using [employer] dictation software. please excuse any grammatical, word or spelling errors. Time with Patient: Greater than 30
[2023-06-11 06:01] LABS: Glucose,Whole Blood 177 mg/dL (70-110)
[2023-06-11] MEDS: LEVOTHYROXINE 137 MCG TAB PO SCH (06:29)
[2023-06-11] MEDS: PANTOPRAZOLE 40 MG TABLET PO SCH (06:30)
[2023-06-11] MEDS: INSULIN ASPART (NovoLOG) 100 UNIT/ML VIAL SQ SCH ×4 (06:30→21:06)
[2023-06-11] MEDS: metFORMIN 500 MG TAB PO SCH ×2 (06:30→18:38)
[2023-06-11] MEDS ORDERED: VANCOMYCIN TROUGH DUE 1 EACH MISC MISCELLANE ONE (08:00)
[2023-06-11 08:12] LABS: ALT 28 U/L (4-49); AST 44 U/L (17-59); African American GFR (CKD) >90 (>60 ml/min/1.73 sqM); Albumin 2.8 g/dL (3.5-5.0); Albumin/Globulin Ratio 0.6; Alkaline Phosphatase 122 U/L (38-126); Anion Gap 3 mmol/L; Blood Urea Nitrogen 32 mg/dL (9-20); Calcium 8.3 mg/dL (8.4-10.2); Carbon Dioxide 32 mmol/L (22-30); Chloride 101 mmol/L (98-107); Globulin 4.5 g/dL; Glucose 141 mg/dL (74-99); Non-African American GFR(CKD) >90 (>60 ml/min/1.73 sqM); Potassium 4.5 mmol/L (3.5-5.1); Sodium 136 mmol/L (137-145); Total Bilirubin 0.3 mg/dL (0.2-1.3); Total Protein 7.3 g/dL (6.3-8.2)
[2023-06-11] MEDS: VANCOMYCIN 1,250 MG in SODIUM CHLORIDE 0.9% 250 ML IVPB SCH ×2 (09:06→21:11)
[2023-06-11] MEDS: ASPIRIN 81 MG PO SCH (09:07)
[2023-06-11] MEDS: HYDROcodone/APAP 5-325MG 1 EACH TAB PO PRN ×2 (09:07→18:41)
[2023-06-11] MEDS: DAPAGLIFLOZIN PROPANEDIOL 10 MG TABLET PO SCH (09:08)
[2023-06-11] MEDS: ESCITALOPRAM 10 MG TAB PO SCH (09:08)
[2023-06-11] MEDS: METOPROLOL TARTRATE 50 MG TAB PO SCH ×2 (09:08→21:05)
[2023-06-11] MEDS: ISOSORBIDE MONONITRATE ER 30 MG TAB.ER.24H PO SCH (09:08)
[2023-06-11] MEDS: TROSPIUM CHLORIDE 20 MG TABLET PO SCH (09:08)
[2023-06-11] MEDS: ATORVASTATIN 80 MG TAB PO SCH (09:08)
[2023-06-11] MEDS: FERROUS SULFATE 325 MG TAB PO SCH (09:08)
[2023-06-11] MEDS: ENOXAPARIN 40 MG/0.4 ML SYRINGE SQ SCH (09:09)
[2023-06-11] MEDS: LISINOPRIL-HCTZ 10-12.5 MG 1 EACH TAB PO SCH (09:11)
[2023-06-11 10:50] LABS: Basophils # (A) 0.09 X 10*3/uL (0.00-0.10); Eosinophils # (A) 0.24 X 10*3/uL (0.04-0.35); Eosinophils % (A) 2.7 %; HCT 34.4 % (39.6-50.0); HGB 10.5 d/dL (13.0-17.0); Lymphocytes # (A) 1.23 X 10*3/uL (0.90-5.00); MCH 27.9 pg (27.0-32.0); MCHC 30.5 d/dL (32.0-37.0); MCV 91.5 FL (80.0-97.0); Mean Platelet Volume 10.2 FL (9.5-12.2); NRBC Per 100 WBC 0 X 10*3/uL (0.00-0.01); Neutrophils # (A) 6.48 X 10*3/uL (1.80-7.70); Neutrophils % (A) 73.7 %; Platelet Count 401 X 10*3/uL (140-440); RBC 3.76 X 10*6/uL (4.40-5.60); RDW 14.9 % (11.5-14.5); WBC 8.79 X 10*3/uL (4.50-10.00)
[2023-06-11 12:10] LABS: Glucose,Whole Blood 385 mg/dL (70-110)
--- NOTE | 2023-06-11 14:49 | P.PN ---
Progress Note - Text Progress Note Date: 06/11/23 Chief Complaint: Falls This is a 72-year-old patient who follows with Dr. Bell. History is obtained but the sister to patient at the bedside. Patient's sister is the guardian. And patient lives with her. Patient had a fall in March 31. Says that he is at least had 3 falls. Very recently patient had a fall where he went down about 10 stairs. When tried to go up stairs. The last few days patient started using a walker. He has pain in the left shoulder not able to move much since the fall. Also pain in the right hip. In the ER presentation on June 03 right hip x-ray did show subacute avulsion of the greater trochanter. Because of fall patient also limited range of motion of left shoulder. Outpatient not barely able to move not even able to get out to urinate. Has been wetting the culture has been sleeping. Appetite is good. No fever no chills. Urine frequency. Does not have good control of the bladder. Good control on the bowels ears. Patient for about 20 years has a stutter. After he came out of her diabetic coma,. No respiratory symptoms. Patient also has a wound on the left heel. Dressing changed from Dr. Bell's wound care team. Painful. Some drainage. 06/07/2023: Up in a recliner. Feeling a bit better. Eating well. Seen by orthopedics Dr. Headley. Will follow up outpatient for the left shoulder. Right hip weightbearing as tolerated. With walker and assistance. Seen by wound care team. Nonweightbearing to the left heel. Seen by vascular Dr. Jackman. Offload both the years. Soft green MediPort. We will follow up outpatient. 06/08/2023: Patient's blood cultures are growing presumptive staph aureus. Woun d cultures are growing Streptococcus agalactiae. Patient is on IV Ancef. Eating well. For increased blood pressure increase Lopressor to 50 mg twice a day. 06/09/2023: Discussed with Dr. Romeo from vascular. No surgical intervention on the heel wound. Cultures finalized for MSSA. Repeat blood cultures pending. 06/10/2023: Discussed with Dr. Go. He feels heel wound needs to be debrided. For deep cultures. He'll speak to vascular. Meantime continue IV vancomycin. Patient tolerating diet well. 06/28/2023: I spoke to Dr. Romeo. From vascular. She will arrange for the heel to be debrided. Meantime continue with IV vancomycin. Eating well. The pressure on the high side. Increase Zestoretic to 20/12.5 twice a day Active Medications Hydrocodone Bitart/Acetaminophen (Hydrocodone/Apap 5-325mg 1 Each Tab) 1 each PO Q4HR PRN PRN Reason: Pain Last Admin: 06/11/23 09:07 Dose: 1 each Aspirin (Aspirin 81 Mg) 81 mg PO DAILY [facility] Last Admin: 06/11/23 09:07 Dose: 81 mg Atorvastatin Calcium (Atorvastatin 80 Mg Tab) 80 mg PO DAILY [facility] Last Admin: 06/11/23 09:08 Dose: 80 mg Dapagliflozin (Dapagliflozin Propanediol 10 Mg Tablet) 10 mg PO DAILY [facility] Last Admin: 06/11/23 09:08 Dose: 10 mg Dextrose/Water (Dextrose 50% Syringe 50 Ml) 25 ml IVP PER PROTOCOL PRN; Protocol PRN Reason: Hypoglycemia Dextrose/Water (Dextrose 50% Syringe 50 Ml) 50 ml IVP PER PROTOCOL PRN; Protocol PRN Reason: Hypoglycemia Enoxaparin Sodium (Enoxaparin 40 Mg/0.4 Ml Syringe) 40 mg SQ DAILY [facility] Last Admin: 06/11/23 09:09 Dose: 40 mg Escitalopram Oxalate (Escitalopram 10 Mg Tab) 10 mg PO DAILY [facility] Last Admin: 06/11/23 09:08 Dose: 10 mg Ferrous Sulfate (Ferrous Sulfate 325 Mg Tab) 325 mg PO DAILY [facility] Last Admin: 06/11/23 09:08 Dose: 325 mg Gabapentin (Gabapentin 300 Mg Cap) 300 mg PO HS [facility] Last Admin: 06/10/23 21:18 Dose: 300 mg Lisinopril/HCTZ (Lisinopril-Hctz 10-12.5 Mg 1 Each Tab) 1 each PO BID [facility] Last Admin: 06/11/23 09:11 Dose: 1 each Vancomycin HCl 1,250 mg/ (Sodium Chloride) 250 mls @ 125 mls/hr IVPB Q12HR YESY Last Admin: 06/11/23 09:06 Dose: 125 mls/hr Insulin Aspart (Insulin Aspart (Novolog) 100 Unit/Ml Vial) 0 unit SQ ACHS [facility]; Protocol Last Admin: 06/11/23 13:14 Dose: 6 unit Insulin Detemir (Insulin Detemir (Levemir) 100 Unit/Ml Syr) 32 unit SQ HS [facility] Last Admin: 06/10/23 21:19 Dose: 32 unit Isosorbide Mononitrate (Isosorbide Mononitrate Er 30 Mg Tab.Er.24h) 30 mg PO DAILY [facility] Last Admin: 06/11/23 09:08 Dose: 30 mg Lactic Acid (Ammonium Lactate 12% Cream 140 Gm Tube) 1 applic TOPICAL BID PRN; Protocol PRN Reason: Dry Skin Levothyroxine Sodium (Levothyroxine 137 Mcg Tab) 137 mcg PO DAILY@0630 [facility] Last Admin: 06/11/23 06:29 Dose: 137 mcg Metformin HCl (Metformin 500 Mg Tab) 500 mg PO BID-W/MEALS [facility] Last Admin: 06/11/23 06:30 Dose: 500 mg Metoprolol Tartrate (Metoprolol Tartrate 50 Mg Tab) 50 mg PO BID [facility] Last Admin: 06/11/23 09:08 Dose: 50 mg Metronidazole (Metronidazole 500 Mg Tab) 500 mg PO TID [facility]; Protocol Pantoprazole Sodium (Pantoprazole 40 Mg Tablet) 40 mg PO AC-BRKFST [facility] Last Admin: 06/11/23 06:30 Dose: 40 mg Trospium (Trospium Chloride 20 Mg Tablet) 20 mg PO DAILY [facility] Last Admin: 06/11/23 09:08 Dose: 20 mg Past medical history to include: CAD, diabetes, GERD, hypertension, hyperlipidemia, hypothyroid, peripheral neuropathy,'s coronary artery disease with stent and bypass, PAD, depression Social history: Lives with sister German who is also the POA. Former smoker. Marijuana. Physical examination: VITAL SIGNS: 98.1, 58, 18, 185-74, 98% room air GENERAL: BMI 23, in a recliner. Awake. Comfortable. EYES: Pupils equal. Conjunctiva normal. HEENT: External appearance of nose and ears normal, oral cavity grossly normal. NECK: JVD not raised; masses not palpable. HEART: First and second heart sounds are normal; no edema. LUNGS: Respiratory rate normal; clear to auscultation. ABDOMEN: Soft, nontender, liver spleen not palpable, no masses palpable. PSYCH: Patient is able to answer simple questions.l. MUSCULOSKELETAL:No Clubbing/cyanosis;muscles-grossly intact. Limited range of motion left shoulder and the right hip. OA. DERMATOLOGICAL: Left heel ulcer. INVESTIGATIONS, reviewed in the clinical context: June 11: White count 8.7 hemoglobin 10.5 potassium 4.5 crit 0.77 Arterial ultrasound left lower extremity: Evidence of vessel hardening. White count 8.8 hemoglobin 11.1 platelets 327 sodium 135 potassium 5.3 BUN 25 creatinine 0.67 Troponin I 0.013 UA positive for leukoesterase, WBC creatinine 182 bacteria and rare squamous epithelial less than 1 Chest x-ray film personally reviewed by me-cardiomegaly. Questionable chronic changes. Left shoulder x-ray: No fracture EKG tracing personally reviewed by me-no sinus rhythm. CT brain seeks spine without contrast: No fracture age-related changes. Right hip x-ray [June 03]: Subacute avulsion of the greater trochanter Assessment and plan: -Multiple falls related to underlying left shoulder injury, right hip injury, likely precipitating the initial fall in March of this year. 10 days ago patient has not undertaken fall from the stairs about 10 stairs down. -Sepsis and blood cultures positive for MSSA.: Repeat blood cultures from June 08 pending. IV Ancef. -Likely left shoulder rotator cuff injury secondary to fall about 10 days ago. X-rays ruled out fracture. \ Seen by Dr. Pack. With follow-up outpatient. -Right great greater trochanter avulsion fracture. Seen by Dr. Pack. No surgical intervention -Left heel ulcer stage I, not infected., Probably secondary to diabetes mellitus type 2 Seen by vascular and ID. Wound care. Offload the heel. -Diabetes mellitus type 2, uncontrolled with hyperglycemia Metformin. Increase Levemir 32 units.. Follow Accu-Cheks and sliding scale. jardiance -Depression Lexapro -Acute UTI with cystitis IV Ancef -Hyperlipidemia Lipitor -CAD with a prior history of stent and a bypass Aspirin. Lipitor. Imdur. Lopressor. -Essential hypertension, uncontrolled Lopressor 50 mg twice a day. Increase lisinopril hydrochlorothiazide 20/12.5 one tablet twice a day. -Hypothyroid Synthroid -Chronic stuttering -Patient's sister German is the POA -Full code Spoke to Dr. Romeo from vascular. She'll arrange for the heel to be debrided and deep cultured.
[2023-06-11] MEDS: metroNIDAZOLE 500 MG TAB PO SCH ×2 (17:13→21:05)
--- NOTE | 2023-06-11 17:37 | P.PN ---
Subjective Progress Note Date: 06/11/23 Principal diagnosis: Left heel ulcer and bacteremia Patient is a 72-year-old male with a past medical history significant for diabetes mellitus hypertension hyperlipidemia [place] coronary artery disease did have a recent discharge from [facility] term, presenting to the hospital with weakness and fall and did have wound to the left heel area, subsequently blood cultures currently positive with MSSA. On today's evaluation that is 06/11/2023 the patient remains to be afebrile, the patient is breathing comfortably on room air. The patient denies any chest pain or shortness with occasional cough no abdominal pain or diarrhea still complaining of pain to the left heel area. Patient did have a normal creatinine 0.77, hemoglobin is 10.5 white count 8.79, local culture positive for MRSA strep and anaerobes blood culture with MSSA repeat blood culture negative so far Objective - Vital Signs Vital signs: Vital Signs Temp 98.3 F 06/11/23 08:00 Pulse 68 06/11/23 08:00 Resp 16 06/11/23 08:00 BP 184/78 06/11/23 08:00 Pulse Ox 94 L 06/11/23 08:00 FiO2 Intake & Output 06/10/23 06/11/23 06/11/23 18:59 06:59 18:59 Intake Total 714 474 Output Total 2200 3050 1000 Balance -1486 -3050 -526 Intake: Oral 714 474 Output: Urine 2200 3050 1000 Other: Voiding Method Diaper Diaper Diaper External Catheter External Catheter External Catheter - Exam GENERAL DESCRIPTION: Elderly male lying in bed in no distress RESPIRATORY SYSTEM: Unlabored breathing , decreased breath sounds at bases HEART: S1 S2 regular rate and rhythm ,no loud murmurs ABDOMEN: Soft , no tenderness EXTREMITIES: Left heel wound with black esher , surrounding redness and foul smell - Labs CBC & Chem 7: 06/11/23 07:45 06/11/23 07:45 Labs: Abnormal Lab Results - Last 24 Hours (Table) 06/10/23 06/10/23 06/11/23 Range/Units 17:30 20:43 06:00 RBC (4.40-5.60) X 10*6/uL Hgb (13.0-17.0) d/dL Hct (39.6-50.0) % MCHC (32.0-37.0) d/dL RDW (11.5-14.5) % Sodium (137-145) mmol/L Carbon Dioxide (22-30) mmol/L BUN (9-20) mg/dL Glucose (74-99) mg/dL POC Glucose (mg/dL) 370 H 339 H 177 H (70-110) mg/dL Calcium (8.4-10.2) mg/dL C-Reactive Protein (<1.0) mg/dL Albumin (3.5-5.0) g/dL 06/11/23 06/11/23 06/11/23 Range/Units 07:45 07:45 12:08 RBC 3.76 L (4.40-5.60) X 10*6/uL Hgb 10.5 L (13.0-17.0) d/dL Hct 34.4 L (39.6-50.0) % MCHC 30.5 L (32.0-37.0) d/dL RDW 14.9 H (11.5-14.5) % Sodium 136 L (137-145) mmol/L Carbon Dioxide 32 H (22-30) mmol/L BUN 32 H (9-20) mg/dL Glucose 141 H (74-99) mg/dL POC Glucose (mg/dL) 385 H (70-110) mg/dL Calcium 8.3 L (8.4-10.2) mg/dL C-Reactive Protein 5.0 H (<1.0) mg/dL Albumin 2.8 L (3.5-5.0) g/dL Microbiology - Last 24 Hours (Table) 06/08/23 06:00 Blood Culture - Preliminary Blood 06/06/23 17:46 Gram Stain - Final Foot - Left Wound Culture - Final Strep agalactiae - (group b) Methicillin resist S. aureus Enterococcus gallinarum Assessment and Plan (1) Bacteremia Current Visit: Yes Status: Acute Code(s): R78.81 - BACTEREMIA SNOMED Code(s): 3957045 Plan: 1patient presented hospital with weakness multiple falls which is likely multifactorial patient did have a significantly positive UA some vague urinary symptoms underlying urinary source are not really excluded 2-patient did have a unstagble pressure ulcer to the left heel area Now with local cultures growing MRSA and Streptococcus , With concern for possible deep infection and foul-smelling from the left heel patient benefit from surgical debridement that will determine the extent of infection and possible underlying osteo however vascular surgery wants debridement to be done as an outpatient, in my clinical opinion the patient benefit from surgical debridement during this hospital stay that will decrease the burden of infection and help heal his wound this will be discussed further with the vascular surgery in the a.m., , we'll also check bone scan 3- for now continue with the vancomycin while watching his kidney function closely Dictation was produced using [employer] dictation software. please excuse any grammatical, word or spelling errors. Time with Patient: Less than 30
[2023-06-11 18:08] LABS: Glucose,Whole Blood 423 mg/dL (70-110)
[2023-06-11] MEDS ORDERED: INSULIN ASPART (NovoLOG) 100 UNIT/ML VIAL SQ ONE (19:06)
[2023-06-11 20:10] LABS: Glucose,Whole Blood 436 mg/dL (70-110)
[2023-06-11] MEDS: GABAPENTIN 300 MG CAP PO SCH (21:05)
[2023-06-11] MEDS: INSULIN DETEMIR (LEVEMIR) 100 UNIT/ML SYR SQ SCH (21:06)
[2023-06-11] MEDS: LISINOPRIL-HCTZ 20-12.5 MG 1 EACH TAB PO SCH (21:11)
[2023-06-12] MEDS: HYDROcodone/APAP 5-325MG 1 EACH TAB PO PRN ×4 (02:39→20:55)
[2023-06-12 06:13] LABS: Glucose,Whole Blood 70 mg/dL (70-110)
[2023-06-12] MEDS: INSULIN ASPART (NovoLOG) 100 UNIT/ML VIAL SQ SCH ×6 (06:19→22:18)
[2023-06-12] MEDS: PANTOPRAZOLE 40 MG TABLET PO SCH (06:28)
[2023-06-12] MEDS: LEVOTHYROXINE 137 MCG TAB PO SCH (06:28)
[2023-06-12 06:52] LABS: African American GFR (CKD) >90 (>60 ml/min/1.73 sqM); Non-African American GFR(CKD) >90 (>60 ml/min/1.73 sqM)
[2023-06-12] MEDS: VANCOMYCIN 1,250 MG in SODIUM CHLORIDE 0.9% 250 ML IVPB SCH ×2 (09:45→20:56)
[2023-06-12] MEDS: metroNIDAZOLE 500 MG TAB PO SCH ×3 (09:45→20:55)
[2023-06-12] MEDS: ISOSORBIDE MONONITRATE ER 30 MG TAB.ER.24H PO SCH (09:46)
[2023-06-12] MEDS: DAPAGLIFLOZIN PROPANEDIOL 10 MG TABLET PO SCH (09:46)
[2023-06-12] MEDS: ATORVASTATIN 80 MG TAB PO SCH (09:46)
[2023-06-12] MEDS: ESCITALOPRAM 10 MG TAB PO SCH (09:46)
[2023-06-12] MEDS: LISINOPRIL-HCTZ 20-12.5 MG 1 EACH TAB PO SCH ×2 (09:46→20:56)
[2023-06-12] MEDS: metFORMIN 500 MG TAB PO SCH ×2 (09:47→17:51)
[2023-06-12] MEDS: ASPIRIN 81 MG PO SCH (09:47)
[2023-06-12] MEDS: TROSPIUM CHLORIDE 20 MG TABLET PO SCH (09:47)
[2023-06-12] MEDS: FERROUS SULFATE 325 MG TAB PO SCH (09:47)
[2023-06-12] MEDS: METOPROLOL TARTRATE 50 MG TAB PO SCH ×2 (09:47→20:56)
[2023-06-12 12:09] LABS: Glucose,Whole Blood 412 mg/dL (70-110)
[2023-06-12] MEDS ORDERED: DEXTROSE 50% SYRINGE 50 ML IVP PRN ×2 (12:20)
[2023-06-12] MEDS ORDERED: INSULIN ASPART (NovoLOG) 100 UNIT/ML VIAL SQ ONE (12:30)
--- NOTE | 2023-06-12 13:15 | P.PN ---
Subjective Progress Note Date: 06/12/23 Principal diagnosis: Pressure ulcer Patient seen and examined today as a follow-up. He underwent this bone scan this morning and is scheduled to finish this afternoon. He denies any fevers or chills. Final wound cultures came back as strep group B agalactiae, MRSA, enterococcus gallinarum. Patient currently on vancomycin and Flagyl. Repeat blood cultures negative at 72 hours Objective - Vital Signs Vital signs: Vital Signs Temp 98.2 F 06/12/23 08:00 Pulse 79 06/12/23 08:00 Resp 16 06/12/23 08:00 BP 126/63 06/12/23 08:00 Pulse Ox 96 06/12/23 08:00 FiO2 Intake & Output 06/11/23 06/12/23 06/12/23 18:59 06:59 18:59 Intake Total 951 Output Total 2200 1550 Balance -1249 -1550 Intake: Oral 951 Output: Urine 2200 1550 Other: Voiding Method Diaper Diaper External Catheter External Catheter - Exam General appearance: The patient is alert, oriented, appears in no acute distres s. HET: Head is normocephalic and atraumatic. Neck: Supple. Abdomen: Soft, nondistended. Extremities: Palpable bilateral femoral and popliteal pulses, palpable bypass right lower extremity. Bilateral lower extremities warm to the touch with good capillary refill. Left heel with pressure ulcer with eschar, no pus or surrounding erythema. Tender to palpation. Neurological: No focal deficits. - Labs CBC & Chem 7: 06/11/23 07:45 06/12/23 05:45 Labs: Abnormal Lab Results - Last 24 Hours (Table) 06/11/23 06/11/23 06/12/23 Range/Units 18:07 20:08 12:07 POC Glucose (mg/dL) 423 H 436 H 412 H (70-110) mg/dL Microbiology - Last 24 Hours (Table) 06/08/23 06:00 Blood Culture - Preliminary Blood Assessment and Plan Assessment: 1. Pressure ulcer left heel 2. Weakness 3. Multiple recent falls with right hip fracture, nonsurgical 4. Positive wound culture 5. Positive blood cultures 6. Diabetes mellitus 7. Hyperglycemia 8. Hyperkalemia 9. History coronary artery disease status post CABG, cardiac stent 10. History of peripheral arterial disease, with possible revascularization 11. History hypertension and hyperlipidemia Plan: 1. Continue symptomatic and supportive care 2. Continue local wound care per recommendations, and follow up outpatient with wound clinic 3. Offload Pressure to bilateral heels, recommend soft green mediboots 4. Arterial ultrasound of lower extremities ordered and reviewed 5. Plan for left heel bedside debridement this afternoon. 6. Nonweightbearing to left heel Thank you for this consultation. The impression and plan of care has been dictated as directed. Dr. Jacmkan I performed a history and examination of this patient, discussed the same with the dictator. I agree with the dictator's note ,documented as a scribe. Any additional findings or plans will be noted.
--- NOTE | 2023-06-12 14:15 | P.PN ---
Subjective Progress Note Date: 06/12/23 This is a 72-year-old patient who follows with Dr. Bell. History is obtained but the sister to patient at the bedside. Patient's sister is the guardian. And patient lives with her. Patient had a fall in March 31. Says that he is at least had 3 falls. Very recently patient had a fall where he went down about 10 stairs. When tried to go up stairs. The last few days patient started using a walker. He has pain in the left shoulder not able to move much since the fall. Also pain in the right hip. In the ER presentation on June 03 right hip x-ray did show subacute avulsion of the greater trocha nter. Because of fall patient also limited range of motion of left shoulder. Outpatient not barely able to move not even able to get out to urinate. Has been wetting the culture has been sleeping. Appetite is good. No fever no chills. Urine frequency. Does not have good control of the bladder. Good control on the bowels ears. Patient for about 20 years has a stutter. After he came out of her diabetic coma,. No respiratory symptoms. Patient also has a wound on the left heel. Dressing changed from Dr. Bell's wound care team. Painful. Some drainage. 06/07/2023: Up in a recliner. Feeling a bit better. Eating well. Seen by orthopedics Dr. Headley. Will follow up outpatient for the left shoulder. Right hip weightbearing as tolerated. With walker and assistance. Seen by wound care team. Nonweightbearing to the left heel. Seen by vascular Dr. Jackman. Offload both the years. Soft green MediPort. We will follow up outpatient. 06/08/2023: Patient's blood cultures are growing presumptive staph aureus. Wound cultures are growing Streptococcus agalactiae. Patient is on IV Ancef. Eating well. For increased blood pressure increase Lopressor to 50 mg twice a day. 06/09/2023: Discussed with Dr. Romeo from vascular. No surgical intervention on the heel wound. Cultures finalized for MSSA. Repeat blood cultures pending. 06/10/2023: Discussed with Dr. Go. He feels heel wound needs to be debrided. For deep cultures. He'll speak to vascular. Meantime continue IV vancomycin. Patient tolerating diet well. 06/28/2023: I spoke to Dr. Romeo. From vascular. She will arrange for the heel to be debrided. Meantime continue with IV vancomycin. Eating well. The pressure on the high side. Increase Zestoretic to 20/12.5 twice a day 06/12. Patient seen and examined. Going for bone scan today, vascular planning bedside debridement REVIEW OF SYSTEMS: CONSTITUTIONAL: No fever, no malaise,. CARDIOVASCULAR: No chest pain, no palpitations, no syncope. PULMONARY: No shortness of breath, no cough, GASTROINTESTINAL: No diarrhea, no nausea, no vomiting, no abdominal pain. NEUROLOGICAL: No headaches, no weakness, PHYSICAL EXAMINATION: GENERAL: The patient is alert and oriented x3, not in any acute distress. Well developed, well nourished. HEENT: Pupils are round and equally reacting to light. EOMI. No scleral icterus. No conjunctival pallor. Normocephalic, atraumatic. No pharyngeal erythema. No thyromegaly. CARDIOVASCULAR: S1 and S2 present. No murmurs, rubs, or gallops. PULMONARY: Chest is clear to auscultation, no wheezing or crackles. ABDOMEN: Soft, nontender, nondistended, normoactive bowel sounds. No palpable organomegaly. MUSCULOSKELETAL: No joint swelling or deformity. EXTREMITIES: No cyanosis, clubbing, or pedal edema. NEUROLOGICAL: Gross neurological examination did not reveal any focal deficits. SKIN: No rashes. Assessment and plan -Multiple falls related to underlying left shoulder injury, right hip injury, likely precipitating the initial fall in March of this year. 10 days ago patient has not undertaken fall from the stairs about 10 stairs down. -Sepsis and blood cultures positive for MSSA.: Repeat blood cultures from June 08 pending. IV Ancef. ID following Vascular Planning left heel bedside debridement this afternoon -Likely left shoulder rotator cuff injury secondary to fall about 10 days ago. X-rays ruled out fracture. \ Seen by Dr. Pack. With follow-up outpatient. -Right great greater trochanter avulsion fracture. Seen by Dr. Pack. No surgical intervention -Left heel ulcer stage I, not infected., Probably secondary to diabetes mellitus type 2 Seen by vascular and ID. Wound care. Vascular Planning left heel bedside debridement this afternoon -Diabetes mellitus type 2, uncontrolled with hyperglycemia Metformin. Increase Levemir 32 units.. Follow Accu-Cheks and sliding scale. jardiance -Depression Lexapro -Acute UTI with cystitis On IV antibiotics -Hyperlipidemia Lipitor -CAD with a prior history of stent and a bypass Aspirin. Lipitor. Imdur. Lopressor. -Essential hypertension, uncontrolled Lopressor 50 mg twice a day. Increase lisinopril hydrochlorothiazide 20/12.5 one tablet twice a day. -Hypothyroid Synthroid -Chronic stuttering Labs and medication were reviewed.. Continue same treatment. Continue with symptomatic treatment. Resume home medication. Monitor labs and vitals. DVT and GI prophylaxis. Further recommendations as per clinical course of the patient Dictation was produced using [employer] dictation software. please excuse any grammatical, word or spelling errors. Objective - Vital Signs Vital signs: Vital Signs Temp 98.2 F 06/12/23 08:00 Pulse 79 06/12/23 08:00 Resp 16 06/12/23 08:00 BP 126/63 06/12/23 08:00 Pulse Ox 96 06/12/23 08:00 FiO2 Intake & Output 06/11/23 06/12/23 06/12/23 18:59 06:59 18:59 Intake Total 951 Output Total 2200 1550 Balance -1249 -1550 Intake: Oral 951 Output: Urine 2200 1550 Other: Voiding Method Diaper Diaper External Catheter External Catheter - Labs CBC & Chem 7: 06/11/23 07:45 06/12/23 05:45 Labs: Abnormal Lab Results - Last 24 Hours (Table) 06/11/23 06/11/23 06/11/23 Range/Units 12:08 18:07 20:08 POC Glucose (mg/dL) 385 H 423 H 436 H (70-110) mg/dL Microbiology - Last 24 Hours (Table) 06/08/23 06:00 Blood Culture - Preliminary Blood
--- NOTE | 2023-06-12 15:10 | NM ---
EXAMINATION TYPE: NM bone 3 phase DATE OF EXAM: 06/12/2023 COMPARISON: NONE CLINICAL INDICATION: Male, 72 years old with history of left heel osteo; Triple phase bone scintigraphy was performed following the injection of 21.3 mCi Tc 99m MDP. Immedia te images and 6 hours post injection images acquired. FINDINGS: There is increased perfusion to the left foot. Soft tissue uptake is seen along margins of the calcaneus. Delayed imaging demonstrates focal abnormal uptake involving the calcaneus plantar surface. IMPRESSION: Cellulitis with osteomyelitis of the calcaneus.
[2023-06-12 17:21] LABS: Glucose,Whole Blood 244 mg/dL (70-110)
[2023-06-12] MEDS: ENOXAPARIN 40 MG/0.4 ML SYRINGE SQ SCH (19:25)
[2023-06-12] MEDS: GABAPENTIN 300 MG CAP PO SCH (20:55)
[2023-06-12 22:09] LABS: Glucose,Whole Blood 278 mg/dL (70-110)
[2023-06-12] MEDS: INSULIN DETEMIR (LEVEMIR) 100 UNIT/ML SYR SQ SCH (22:18)
[2023-06-13] MEDS: HYDROcodone/APAP 5-325MG 1 EACH TAB PO PRN ×4 (04:03→21:54)
[2023-06-13] MEDS: INSULIN ASPART (NovoLOG) 100 UNIT/ML VIAL SQ SCH ×7 (06:25→21:51)
[2023-06-13] MEDS: LEVOTHYROXINE 137 MCG TAB PO SCH (06:26)
[2023-06-13] MEDS: PANTOPRAZOLE 40 MG TABLET PO SCH (06:26)
[2023-06-13] MEDS: metFORMIN 500 MG TAB PO SCH ×2 (06:26→17:22)
[2023-06-13 06:28] LABS: Glucose,Whole Blood 216 mg/dL (70-110)
[2023-06-13] MEDS: INSULIN DETEMIR (LEVEMIR) 100 UNIT/ML SYR SQ SCH ×2 (06:31→21:52)
[2023-06-13 06:56] LABS: ALT 33 U/L (4-49); AST 39 U/L (17-59); African American GFR (CKD) >90 (>60 ml/min/1.73 sqM); Albumin 2.8 g/dL (3.5-5.0); Albumin/Globulin Ratio 0.6; Alkaline Phosphatase 141 U/L (38-126); Anion Gap 8 mmol/L; Blood Urea Nitrogen 37 mg/dL (9-20); Calcium 8.5 mg/dL (8.4-10.2); Carbon Dioxide 29 mmol/L (22-30); Chloride 99 mmol/L (98-107); Globulin 4.7 g/dL; Glucose 231 mg/dL (74-99); Non-African American GFR(CKD) 88 (>60 ml/min/1.73 sqM); Sodium 136 mmol/L (137-145); Total Bilirubin 0.3 mg/dL (0.2-1.3); Total Protein 7.5 g/dL (6.3-8.2)
[2023-06-13] MEDS: ENOXAPARIN 40 MG/0.4 ML SYRINGE SQ SCH ×2 (07:32→16:03)
[2023-06-13] MEDS ORDERED: VANCOMYCIN TROUGH DUE 1 EACH MISC MISCELLANE ONE (08:00)
[2023-06-13] MEDS: ESCITALOPRAM 10 MG TAB PO SCH (08:15)
[2023-06-13] MEDS: FERROUS SULFATE 325 MG TAB PO SCH (08:15)
[2023-06-13] MEDS: metroNIDAZOLE 500 MG TAB PO SCH ×3 (08:15→21:08)
[2023-06-13] MEDS: ISOSORBIDE MONONITRATE ER 30 MG TAB.ER.24H PO SCH (08:16)
[2023-06-13] MEDS: METOPROLOL TARTRATE 50 MG TAB PO SCH ×2 (08:16→21:08)
[2023-06-13] MEDS: ASPIRIN 81 MG PO SCH (08:16)
[2023-06-13] MEDS: LISINOPRIL-HCTZ 20-12.5 MG 1 EACH TAB PO SCH ×2 (08:17→21:08)
[2023-06-13] MEDS: ATORVASTATIN 80 MG TAB PO SCH (08:17)
[2023-06-13] MEDS: DAPAGLIFLOZIN PROPANEDIOL 10 MG TABLET PO SCH (08:17)
[2023-06-13] MEDS: TROSPIUM CHLORIDE 20 MG TABLET PO SCH (08:17)
[2023-06-13 12:00] LABS: Basophils # (A) 0.09 X 10*3/uL (0.00-0.10); Basophils % (A) 1.1 %; Eosinophils # (A) 0.21 X 10*3/uL (0.04-0.35); Eosinophils % (A) 2.5 %; HCT 33.9 % (39.6-50.0); HGB 10.5 d/dL (13.0-17.0); Lymphocytes # (A) 1.28 X 10*3/uL (0.90-5.00); Lymphocytes % (A) 15.1 %; MCH 28.5 pg (27.0-32.0); MCV 92.1 FL (80.0-97.0); Mean Platelet Volume 9.9 FL (9.5-12.2); Monocytes # (A) 0.73 X 10*3/uL (0.20-1.00); Monocytes % (A) 8.6 %; NRBC Per 100 WBC 0 X 10*3/uL (0.00-0.01); Neutrophils # (A) 6.13 X 10*3/uL (1.80-7.70); Platelet Count 416 X 10*3/uL (140-440); RBC 3.68 X 10*6/uL (4.40-5.60)
--- NOTE | 2023-06-13 12:01 | P.PN ---
Subjective Progress Note Date: 06/13/23 Principal diagnosis: Pressure ulcer Patient seen and examined today as a follow-up. The patient underwent bone scan yesterday that revealed osteomyelitis in the left calcaneus. Bedside debridement deferred yesterday. Patient remains on IV antibiotics. He's been afebrile. No acute changes through the night. Still has tenderness to the left heel. Objective - Vital Signs Vital signs: Vital Signs Temp 97.9 F 06/13/23 07:30 Pulse 61 06/13/23 07:30 Resp 18 06/13/23 07:30 BP 172/79 06/13/23 07:30 Pulse Ox 96 06/13/23 08:35 FiO2 Intake & Output 06/12/23 06/13/23 06/13/23 18:59 06:59 18:59 Intake Total 118 Output Total 1000 1950 Balance -882 -1950 Weight 72.575 kg Intake: Oral 118 Output: Urine 1000 1950 Other: Voiding Method Diaper External Catheter External Catheter - Exam General appearance: The patient is alert, oriented, appears in no acute distress. HET: Head is normocephalic and atraumatic. Neck: Supple. Abdomen: Soft, nondistended. Extremities: Palpable bilateral femoral and popliteal pulses, palpable bypass right lower extremity. Bilateral lower extremities warm to the touch with good capillary refill. Left heel with pressure ulcer with eschar, no pus or surr ounding erythema. Tender to palpation. Neurological: No focal deficits. - Labs CBC & Chem 7: 06/11/23 07:45 06/13/23 06:03 Labs: Abnormal Lab Results - Last 24 Hours (Table) 06/12/23 06/12/23 06/12/23 Range/Units 12:07 17:19 22:08 Sodium (137-145) mmol/L BUN (9-20) mg/dL Glucose (74-99) mg/dL POC Glucose (mg/dL) 412 H 244 H 278 H (70-110) mg/dL Alkaline Phosphatase (38-126) U/L Albumin (3.5-5.0) g/dL Vancomycin Trough ug/mL 06/13/23 06/13/23 06/13/23 Range/Units 06:03 06:03 06:27 Sodium 136 L (137-145) mmol/L BUN 37 H (9-20) mg/dL Glucose 231 H (74-99) mg/dL POC Glucose (mg/dL) 216 H (70-110) mg/dL Alkaline Phosphatase 141 H (38-126) U/L Albumin 2.8 L (3.5-5.0) g/dL Vancomycin Trough 30.4 H* ug/mL Assessment and Plan Assessment: 1. Pressure ulcer left heel 2. Osteomyelitis of the left calcaneus 3. Weakness 4. Multiple recent falls with right hip fracture, nonsurgical 5. Positive wound culture 6. Positive blood cultures 7. Diabetes mellitus 8. Hyperglycemia 9. Hyperkalemia 10. History coronary artery disease status post CABG, cardiac stent 11. History of peripheral arterial disease, with possible revascularization 12. History hypertension and hyperlipidemia Plan: 1. Continue symptomatic and supportive care 2. Plan for surgical debridement tomorrow 3. Hold Lovenox morning dose 06/14/2023 4. Nothing by mouth after midnight 5. Offload Pressure to bilateral heels, recommend soft green mediboots 6. Arterial ultrasound of lower extremities ordered and reviewed 7. Continue antibiotics per recommendations from infectious disease 8. Nonweightbearing to left heel Thank you for this consultation. The impression and plan of care has been dictated as directed. Dr. Romeo I performed a history and examination of this patient, discussed the same with the dictator. I agree with the dictator's note ,documented as a scribe. Any additional findings or plans will be noted.
[2023-06-13 12:29] LABS: Glucose,Whole Blood 291 mg/dL (70-110)
--- NOTE | 2023-06-13 15:00 | P.PN ---
Subjective Progress Note Date: 06/13/23 This is a 72-year-old patient who follows with Dr. Bell. History is obtained but the sister to patient at the bedside. Patient's sister is the guardian. And patient lives with her. Patient had a fall in March 31. Says that he is at least had 3 falls. Very recently patient had a fall where he went down about 10 stairs. When tried to go up stairs. The last few days patient started using a walker. He has pain in the left shoulder not able to move much since the fall. Also pain in the right hip. In the ER presentation on June 03 right hip x-ray did show subacute avulsion of the greater trocha nter. Because of fall patient also limited range of motion of left shoulder. Outpatient not barely able to move not even able to get out to urinate. Has been wetting the culture has been sleeping. Appetite is good. No fever no chills. Urine frequency. Does not have good control of the bladder. Good control on the bowels ears. Patient for about 20 years has a stutter. After he came out of her diabetic coma,. No respiratory symptoms. Patient also has a wound on the left heel. Dressing changed from Dr. Bell's wound care team. Painful. Some drainage. 06/07/2023: Up in a recliner. Feeling a bit better. Eating well. Seen by orthopedics Dr. Headley. Will follow up outpatient for the left shoulder. Right hip weightbearing as tolerated. With walker and assistance. Seen by wound care team. Nonweightbearing to the left heel. Seen by vascular Dr. Jackman. Offload both the years. Soft green MediPort. We will follow up outpatient. 06/08/2023: Patient's blood cultures are growing presumptive staph aureus. Wound cultures are growing Streptococcus agalactiae. Patient is on IV Ancef. Eating well. For increased blood pressure increase Lopressor to 50 mg twice a day. 06/09/2023: Discussed with Dr. Romeo from vascular. No surgical intervention on the heel wound. Cultures finalized for MSSA. Repeat blood cultures pending. 06/10/2023: Discussed with Dr. Go. He feels heel wound needs to be debrided. For deep cultures. He'll speak to vascular. Meantime continue IV vancomycin. Patient tolerating diet well. 06/28/2023: I spoke to Dr. Romeo. From vascular. She will arrange for the heel to be debrided. Meantime continue with IV vancomycin. Eating well. The pressure on the high side. Increase Zestoretic to 20/12.5 twice a day 06/12. Patient seen and examined. Going for bone scan today, vascular planning bedside debridement 06/13. Patient seen and examined. Bone scan showed osteomyelitis in the left calcaneal REVIEW OF SYSTEMS: CONSTITUTIONAL: No fever, no malaise,. CARDIOVASCULAR: No chest pain, no palpitations, no syncope. PULMONARY: No shortness of breath, no cough, GASTROINTESTINAL: No diarrhea, no nausea, no vomiting, no abdominal pain. NEUROLOGICAL: No headaches, no weakness, PHYSICAL EXAMINATION: GENERAL: The patient is alert and oriented x3, not in any acute distress. Well developed, well nourished. HEENT: Pupils are round and equally reacting to light. EOMI. No scleral icterus. No conjunctival pallor. Normocephalic, atraumatic. No pharyngeal erythema. No thyromegaly. CARDIOVASCULAR: S1 and S2 present. No murmurs, rubs, or gallops. PULMONARY: Chest is clear to auscultation, no wheezing or crackles. ABDOMEN: Soft, nontender, nondistended, normoactive bowel sounds. No palpable organomegaly. MUSCULOSKELETAL: No joint swelling or deformity. EXTREMITIES: No cyanosis, clubbing, or pedal edema. NEUROLOGICAL: Gross neurological examination did not reveal any focal deficits. SKIN: No rashes. Assessment and plan -Multiple falls related to underlying left shoulder injury, right hip injury, likely precipitating the initial fall in March of this year. 10 days ago patient has not undertaken fall from the stairs about 10 stairs down. -Sepsis and blood cultures positive for MSSA.: Repeat blood cultures from June 08 pending. Continue vancomycin pharmacy dose Bone scan showed osteomyelitis in the left calcaneal ID following Vascular Planning left heel bedside debridement tomorrow -Likely left shoulder rotator cuff injury secondary to fall about 10 days ago. X-rays ruled out fracture. \ Seen by Dr. Pack. With follow-up outpatient. -Right great greater trochanter avulsion fracture. Seen by Dr. Pack. No surgical intervention -Left heel ulcer stage I, not infected., Probably secondary to diabetes mellitus type 2 Seen by vascular and ID. Wound care. Vascular Planning left heel debridement tomorrow -Diabetes mellitus type 2, uncontrolled with hyperglycemia Metformin. Continue current insulin regimen Follow Accu-Cheks and sliding scale. jardiance -Depression Lexapro -Acute UTI with cystitis On IV antibiotics -Hyperlipidemia Lipitor -CAD with a prior history of stent and a bypass Aspirin. Lipitor. Imdur. Lopressor. -Essential hypertension, uncontrolled Lopressor 50 mg twice a day. Increase lisinopril hydrochlorothiazide 20/12.5 one tablet twice a day. -Hypothyroid Synthroid -Chronic stuttering Labs and medication were reviewed.. Continue same treatment. Continue with symptomatic treatment. Resume home medication. Monitor labs and vitals. DVT and GI prophylaxis. Further recommendations as per clinical course of the patient Dictation was produced using [employer] dictation software. please excuse any gr ammatical, word or spelling errors. Objective - Vital Signs Vital signs: Vital Signs Temp 98.1 F 06/13/23 13:59 Pulse 62 06/13/23 14:41 Resp 16 06/13/23 13:59 BP 92/53 06/13/23 14:41 Pulse Ox 95 06/13/23 14:41 FiO2 Intake & Output 06/12/23 06/13/23 06/13/23 18:59 06:59 18:59 Intake Total 118 237 Output Total 1000 1950 700 Balance -882 -1950 -683 Weight 72.575 kg Intake: Oral 118 237 Output: Urine 1000 1950 700 Other: Voiding Method Diaper External Catheter External Catheter - Labs CBC & Chem 7: 06/13/23 06:03 06/13/23 06:03 Labs: Abnormal Lab Results - Last 24 Hours (Table) 06/12/23 06/12/23 06/13/23 Range/Units 17:19 22:08 06:03 RBC (4.40-5.60) X 10*6/uL Hgb (13.0-17.0) d/dL Hct (39.6-50.0) % MCHC (32.0-37.0) d/dL RDW (11.5-14.5) % Sodium (137-145) mmol/L BUN (9-20) mg/dL Glucose (74-99) mg/dL POC Glucose (mg/dL) 244 H 278 H (70-110) mg/dL Hemoglobin A1c 10.3 H (<=6.0) % Alkaline Phosphatase (38-126) U/L Albumin (3.5-5.0) g/dL Vancomycin Trough ug/mL 06/13/23 06/13/23 06/13/23 Range/Units 06:03 06:03 06:03 RBC 3.68 L (4.40-5.60) X 10*6/uL Hgb 10.5 L (13.0-17.0) d/dL Hct 33.9 L (39.6-50.0) % MCHC 31.0 L (32.0-37.0) d/dL RDW 15.0 H (11.5-14.5) % Sodium 136 L (137-145) mmol/L BUN 37 H (9-20) mg/dL Glucose 231 H (74-99) mg/dL POC Glucose (mg/dL) (70-110) mg/dL Hemoglobin A1c (<=6.0) % Alkaline Phosphatase 141 H (38-126) U/L Albumin 2.8 L (3.5-5.0) g/dL Vancomycin Trough 30.4 H* ug/mL 06/13/23 06/13/23 Range/Units 06:27 12:28 RBC (4.40-5.60) X 10*6/uL Hgb (13.0-17.0) d/dL Hct (39.6-50.0) % MCHC (32.0-37.0) d/dL RDW (11.5-14.5) % Sodium (137-145) mmol/L BUN (9-20) mg/dL Glucose (74-99) mg/dL POC Glucose (mg/dL) 216 H 291 H (70-110) mg/dL Hemoglobin A1c (<=6.0) % Alkaline Phosphatase (38-126) U/L Albumin (3.5-5.0) g/dL Vancomycin Trough ug/mL Microbiology - Last 24 Hours (Table) 06/08/23 06:00 Blood Culture - Final Blood
[2023-06-13] MEDS: VANCOMYCIN 1,250 MG in SODIUM CHLORIDE 0.9% 250 ML IVPB SCH (15:28)
[2023-06-13 17:12] LABS: Glucose,Whole Blood 194 mg/dL (70-110)
[2023-06-13] MEDS: GABAPENTIN 300 MG CAP PO SCH (21:08)
[2023-06-13 21:39] LABS: Glucose,Whole Blood 153 mg/dL (70-110)
[2023-06-14] MEDS: HYDROcodone/APAP 5-325MG 1 EACH TAB PO PRN ×5 (01:46→22:00)
[2023-06-14] MEDS: INSULIN ASPART (NovoLOG) 100 UNIT/ML VIAL SQ SCH ×7 (05:43→22:00)
[2023-06-14] MEDS: metFORMIN 500 MG TAB PO SCH ×2 (05:43→17:47)
[2023-06-14] MEDS: LEVOTHYROXINE 137 MCG TAB PO SCH (05:49)
[2023-06-14] MEDS: PANTOPRAZOLE 40 MG TABLET PO SCH (05:49)
[2023-06-14 06:12] LABS: Glucose,Whole Blood 205 mg/dL (70-110)
[2023-06-14] MEDS: INSULIN DETEMIR (LEVEMIR) 100 UNIT/ML SYR SQ SCH ×2 (06:18→22:00)
[2023-06-14] MEDS: VANCOMYCIN 1,250 MG in SODIUM CHLORIDE 0.9% 250 ML IVPB SCH (08:00)
[2023-06-14] MEDS: FERROUS SULFATE 325 MG TAB PO SCH (08:02)
[2023-06-14] MEDS: ISOSORBIDE MONONITRATE ER 30 MG TAB.ER.24H PO SCH (08:02)
[2023-06-14] MEDS: ESCITALOPRAM 10 MG TAB PO SCH (08:02)
[2023-06-14] MEDS: ATORVASTATIN 80 MG TAB PO SCH (08:02)
[2023-06-14] MEDS: ASPIRIN 81 MG PO SCH (08:02)
[2023-06-14] MEDS: LISINOPRIL-HCTZ 20-12.5 MG 1 EACH TAB PO SCH ×2 (08:02→22:00)
[2023-06-14] MEDS: metroNIDAZOLE 500 MG TAB PO SCH ×3 (08:03→22:00)
[2023-06-14] MEDS: TROSPIUM CHLORIDE 20 MG TABLET PO SCH (08:03)
[2023-06-14] MEDS: DAPAGLIFLOZIN PROPANEDIOL 10 MG TABLET PO SCH (08:03)
[2023-06-14] MEDS: METOPROLOL TARTRATE 50 MG TAB PO SCH ×2 (08:03→22:00)
[2023-06-14] MEDS: ENOXAPARIN 40 MG/0.4 ML SYRINGE SQ SCH (08:04)
[2023-06-14 09:30] LABS: ALT 35 U/L (10-49); AST 36 U/L (14-35); Albumin 2.5 d/dL (3.8-4.9); Albumin/Globulin Ratio 0.57 Ratio (1.60-3.17); Alkaline Phosphatase 115 U/L (41-126); Blood Urea Nitrogen 38.1 mg/dL (9.0-27.0); Calcium 8.7 mg/dL (8.7-10.3); Carbon Dioxide 26.2 mmol/L (21.6-31.8); Chloride 101 mmol/L (96-109); Globulin 4.4 d/dL (1.6-3.3); Glucose 210 mg/dL (70-110); Potassium 5.1 mmol/L (3.5-5.5); Sodium 135 mmol/L (135-145); Total Bilirubin <0.2 mg/dL (0.3-1.2); Total Protein 6.9 d/dL (6.2-8.2)
[2023-06-14 12:05] LABS: Glucose,Whole Blood 74 mg/dL (70-110)
[2023-06-14] MEDS: DEXTROSE 5% IN WATER 1,000 ML IV SCH (12:56)
[2023-06-14 13:40] LABS: Basophils # (A) 0.09 X 10*3/uL (0.00-0.10); Basophils % (A) 1.2 %; Eosinophils # (A) 0.25 X 10*3/uL (0.04-0.35); Eosinophils % (A) 3.3 %; HCT 31.9 % (39.6-50.0); HGB 10.2 d/dL (13.0-17.0); Lymphocytes # (A) 1.39 X 10*3/uL (0.90-5.00); Lymphocytes % (A) 18.5 %; MCH 29.1 pg (27.0-32.0); MCV 91.1 FL (80.0-97.0); Mean Platelet Volume 10.1 FL (9.5-12.2); Monocytes # (A) 0.63 X 10*3/uL (0.20-1.00); Monocytes % (A) 8.4 %; NRBC Per 100 WBC 0 X 10*3/uL (0.00-0.01); Neutrophils # (A) 5.07 X 10*3/uL (1.80-7.70); Neutrophils % (A) 67.7 %; Platelet Count 401 X 10*3/uL (140-440); RDW 15.3 % (11.5-14.5)
[2023-06-14] MEDS ORDERED: LIDOCAINE 2% (PF) 20 MG/ML 5 ML VIAL SQ ONE ×2 (13:53)
--- NOTE | 2023-06-14 14:45 | P.PN ---
Subjective Progress Note Date: 06/14/23 This is a 72-year-old patient who follows with Dr. Bell. History is obtained but the sister to patient at the bedside. Patient's sister is the guardian. And patient lives with her. Patient had a fall in March 31. Says that he is at least had 3 falls. Very recently patient had a fall where he went down about 10 stairs. When tried to go up stairs. The last few days patient started using a walker. He has pain in the left shoulder not able to move much since the fall. Also pain in the right hip. In the ER presentation on June 03 right hip x-ray did show subacute avulsion of the greater trocha nter. Because of fall patient also limited range of motion of left shoulder. Outpatient not barely able to move not even able to get out to urinate. Has been wetting the culture has been sleeping. Appetite is good. No fever no chills. Urine frequency. Does not have good control of the bladder. Good control on the bowels ears. Patient for about 20 years has a stutter. After he came out of her diabetic coma,. No respiratory symptoms. Patient also has a wound on the left heel. Dressing changed from Dr. Bell's wound care team. Painful. Some drainage. 06/07/2023: Up in a recliner. Feeling a bit better. Eating well. Seen by orthopedics Dr. Headley. Will follow up outpatient for the left shoulder. Right hip weightbearing as tolerated. With walker and assistance. Seen by wound care team. Nonweightbearing to the left heel. Seen by vascular Dr. Jackman. Offload both the years. Soft green MediPort. We will follow up outpatient. 06/08/2023: Patient's blood cultures are growing presumptive staph aureus. Wound cultures are growing Streptococcus agalactiae. Patient is on IV Ancef. Eating well. For increased blood pressure increase Lopressor to 50 mg twice a day. 06/09/2023: Discussed with Dr. Romeo from vascular. No surgical intervention on the heel wound. Cultures finalized for MSSA. Repeat blood cultures pending. 06/10/2023: Discussed with Dr. Go. He feels heel wound needs to be debrided. For deep cultures. He'll speak to vascular. Meantime continue IV vancomycin. Patient tolerating diet well. 06/28/2023: I spoke to Dr. Romeo. From vascular. She will arrange for the heel to be debrided. Meantime continue with IV vancomycin. Eating well. The pressure on the high side. Increase Zestoretic to 20/12.5 twice a day 06/12. Patient seen and examined. Going for bone scan today, vascular planning bedside debridement 06/13. Patient seen and examined. 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 Patient seen and examined. Currently, scheduled for procedure today REVIEW OF SYSTEMS: CONSTITUTIONAL: No fever, no malaise,. CARDIOVASCULAR: No chest pain, no palpitations, no syncope. PULMONARY: No shortness of breath, no cough, GASTROINTESTINAL: No diarrhea, no nausea, no vomiting, no abdominal pain. NEUROLOGICAL: No headaches, no weakness, PHYSICAL EXAMINATION: GENERAL: The patient is alert and oriented x3, not in any acute distress. Well developed, well nourished. HEENT: Pupils are round and equally reacting to light. EOMI. No scleral icterus. No conjunctival pallor. Normocephalic, atraumatic. No pharyngeal erythema. No thyromegaly. CARDIOVASCULAR: S1 and S2 present. No murmurs, rubs, or gallops. PULMONARY: Chest is clear to auscultation, no wheezing or crackles. ABDOMEN: Soft, nontender, nondistended, normoactive bowel sounds. No palpable organomegaly. MUSCULOSKELETAL: No joint swelling or deformity. EXTREMITIES: No cyanosis, clubbing, or pedal edema. NEUROLOGICAL: Gross neurological examination did not reveal any focal deficits. SKIN: No rashes. Assessment and plan -Multiple falls related to underlying left shoulder injury, right hip injury, likely precipitating the initial fall in March of this year. 10 days ago patient has not undertaken fall from the stairs about 10 stairs down. -Sepsis and blood cultures positive for MSSA.: Monitor vital signs Monitor CBC Continue vancomycin pharmacy dose Bone scan showed osteomyelitis in the left calcaneal ID following Vascular Planning left heel bedside debridement today -Likely left shoulder rotator cuff injury secondary to fall about 10 days ago. X-rays ruled out fracture. \ Seen by Dr. Pack. With follow-up outpatient. -Right great greater trochanter avulsion fracture. Seen by Dr. Pack. No surgical intervention -Left heel ulcer stage I, not infected., Probably secondary to diabetes mellitus type 2 Seen by vascular and ID. Wound care. Vascular Planning left heel debridement today -Diabetes mellitus type 2, uncontrolled with hyperglycemia Metformin. Continue current insulin regimen Follow Accu-Cheks and sliding scale. jardiance -Depression Lexapro -Acute UTI with cystitis On IV antibiotics -Hyperlipidemia Lipitor -CAD with a prior history of stent and a bypass Aspirin. Lipitor. Imdur. Lopressor. -Essential hypertension, uncontrolled Lopressor 50 mg twice a day. Continue lisinopril hydrochlorothiazide 20/12.5 one tablet twice a day. -Hypothyroid Synthroid -Chronic stuttering Labs and medication were reviewed.. Continue same treatment. Continue with symptomatic treatment. Resume home medication. Monitor labs and vitals. DVT and GI prophylaxis. Further recommendations as per clinical course of the patient Dictation was produced using [employer] dictation software. please excuse any grammatical, word or spelling errors. Objective - Vital Signs Vital signs: Vital Signs Temp 98.2 F 06/14/23 07:42 Pulse 57 L 06/14/23 07:42 Resp 16 06/14/23 07:42 BP 165/70 06/14/23 07:42 Pulse Ox 94 L 06/14/23 07:42 FiO2 Intake & Output 06/13/23 06/14/23 06/14/23 18:59 06:59 18:59 Intake Total 474 Output Total 700 700 Balance -226 -700 Intake: Oral 474 Output: Urine 700 700 Other: Voiding Method External Catheter External Catheter - Labs CBC & Chem 7: 06/14/23 05:43 06/14/23 05:43 Labs: Abnormal Lab Results - Last 24 Hours (Table) 06/13/23 06/13/23 06/14/23 Range/Units 17:11 21:37 05:43 RBC 3.50 L (4.40-5.60) X 10*6/uL Hgb 10.2 L (13.0-17.0) d/dL Hct 31.9 L (39.6-50.0) % RDW 15.3 H (11.5-14.5) % BUN (9.0-27.0) mg/dL BUN/Creatinine Ratio (12.00-20.00) Ratio Glucose (70-110) mg/dL POC Glucose (mg/dL) 194 H 153 H (70-110) mg/dL Total Bilirubin (0.3-1.2) mg/dL AST (14-35) U/L Albumin (3.8-4.9) d/dL Globulin (1.6-3.3) d/dL Albumin/Globulin Ratio (1.60-3.17) Ratio 06/14/23 06/14/23 Range/Units 05:43 06:11 RBC (4.40-5.60) X 10*6/uL Hgb (13.0-17.0) d/dL Hct (39.6-50.0) % RDW (11.5-14.5) % BUN 38.1 H (9.0-27.0) mg/dL BUN/Creatinine Ratio 38.10 H (12.00-20.00) Ratio Glucose 210 H (70-110) mg/dL POC Glucose (mg/dL) 205 H (70-110) mg/dL Total Bilirubin <0.2 L (0.3-1.2) mg/dL AST 36 H (14-35) U/L Albumin 2.5 L (3.8-4.9) d/dL Globulin 4.4 H (1.6-3.3) d/dL Albumin/Globulin Ratio 0.57 L (1.60-3.17) Ratio Microbiology - Last 24 Hours (Table) 06/08/23 06:00 Blood Culture - Final Blood
--- NOTE | 2023-06-14 14:49 | IR ---
PICC LINE PLACEMENT: HISTORY: Infection requiring long-term antibiotic therapy PROCEDURE: Ultrasound and fluoroscopic guidance of PICC line placement. COMPLICATIONS: None ANESTHESIA: 1. 1% Lidocaine locally. FINDINGS/TECHNIQUE: The procedure was explained to the patient. The risks, complications, benefits and alternatives were discussed and any questions were answered. Informed consent was obtained. The patient was placed supine on the fluoroscopic table and prepped and draped in the usual sterile fash ion. Utilizing a 21 gauge needle and sonographic and fluoroscopic guidance, access in the left basi lic vein was achieved and there is placement of a 0.018 guidewire. The vein is patent. A 4-F sheath was placed over the guidewire. The guidewire and dilator were removed and a 4-F. PICC line was plac ed through the sheath with the tip at the level of the SVC. The sheath was removed, the catheter was flushed and sutured into position. The patient was stable throughout the procedure and remained sta ble upon discharge from the Department of Radiology. The vein puncture was patent under ultrasound. A sorenson scale image was obtained to document patency of the vein punctured. All elements of the maximal barrier technique were utilized. FLUOROSCOPY TIME: DAP 0.0781Gy cm2 IMPRESSION: Successful PICC line placement under ultrasound and fluoroscopic guidance.
[2023-06-14] MEDS ORDERED: IV FLUID CONTINUATION 1,000 ML IV ONE (14:55)
[2023-06-14] MEDS ORDERED: ONDANSETRON 4 MG/2 ML VIAL ONE (15:30)
[2023-06-14] MEDS ORDERED: ONDANSETRON 4 MG/2 ML VIAL IVP ONE ×2 (15:37→15:53)
[2023-06-14] MEDS ORDERED: LACTATED RINGERS 1,000 ML IV ONE ×2 (15:37→16:16)
[2023-06-14 15:42] LABS: Glucose,Whole Blood 87 mg/dL (70-110)
[2023-06-14] MEDS ORDERED: PHENYLEPHRINE-0.9% NACL SYG 1,000 MCG/10 ML SYRINGE ONE (15:50)
[2023-06-14] MEDS ORDERED: MIDAZOLAM 2 MG/2 ML VIAL ONE (15:50)
[2023-06-14] MEDS ORDERED: fentaNYL (PF) 50 MCG/ML 2 ML AMP ONE (15:50)
[2023-06-14] MEDS ORDERED: SUCCINYLCHOLINE CHLORIDE 200 MG/10 ML VIAL IV ONE (15:50)
[2023-06-14] MEDS ORDERED: PROPOFOL 10 MG/ML 20 ML VIAL IV ONE (15:50)
[2023-06-14 16:33] LABS: Glucose,Whole Blood 124 mg/dL (70-110)
--- NOTE | 2023-06-14 16:34 | P.OP ---
Date of Procedure: 06/14/23 Description of Procedure: Preoperative diagnosis: Left heel wound, unstageable Postoperative diagnosis: Same Procedure: Sharp excisional debridement left heel wound to subcutaneous tissues measuring 3.6 x 3.5 x 0.2 cm Surgeon: Pricila Romeo D.O. EBL: Less than 5 mL IV fluids: See records Urine output: See records Drains: None Complications: None immediately apparent Condition: Stable Operative indication and findings: Patient is a 72-year-old male with a left heel wound that is unstageable. Skin cultures were growing fluoride he does have evidence of osteomyelitis in the heel due to the unstageable nature of the wound, it was recommended he undergo debridement. Initial discussion regarding bedside debridement was had however the patient had significant pain in the heel therefore operative evaluation was performed. Risks and benefits were discussed including but not limited to bleeding infection and poor wound healing. He seemingly understood and was willing to proceed. Procedure in detail: Patient was taken to the operative suite. He was intubated and placed in prone position. The left heel was prepped and draped in usual sterile fashion a preprocedure timeout was performed and all parties were in agreement. Using a scalpel, the eschar was excised. The measurements as above. The wound was then debrided with curet to the level of subcutaneous tissue and healthy-appearing granulation tissue. There was no purulent drainage or deep infection noted. There was no evidence of erosion to the bone itself. Cultures were taken The area was copiously irrigated. Dressings were placed. The patient was extubated in the OR and transported to recovery in stable condition having tolerated the procedure well.
[2023-06-14] MEDS ORDERED: HYDROmorphone 0.5 MG/0.5 ML SYRINGE IVP ONE (16:48)
[2023-06-14 21:47] LABS: Glucose,Whole Blood 216 mg/dL (70-110)
[2023-06-14] MEDS: GABAPENTIN 300 MG CAP PO SCH (22:00)
[2023-06-15] MEDS: VANCOMYCIN 1,250 MG in SODIUM CHLORIDE 0.9% 250 ML IVPB SCH ×2 (00:05→16:50)
[2023-06-15] MEDS: HYDROcodone/APAP 5-325MG 1 EACH TAB PO PRN ×4 (02:00→21:03)
[2023-06-15] MEDS: DEXTROSE 5% IN WATER 1,000 ML IV SCH (02:00)
[2023-06-15 06:18] LABS: Glucose,Whole Blood 212 mg/dL (70-110)
[2023-06-15 06:21] LABS: Glucose,Whole Blood 238 mg/dL (70-110)
[2023-06-15] MEDS: INSULIN DETEMIR (LEVEMIR) 100 UNIT/ML SYR SQ SCH ×2 (06:24→21:04)
[2023-06-15] MEDS: INSULIN ASPART (NovoLOG) 100 UNIT/ML VIAL SQ SCH ×7 (06:24→21:04)
[2023-06-15] MEDS: LEVOTHYROXINE 137 MCG TAB PO SCH (06:25)
[2023-06-15] MEDS: PANTOPRAZOLE 40 MG TABLET PO SCH (06:25)
[2023-06-15 07:13] LABS: African American GFR (CKD) >90 (>60 ml/min/1.73 sqM); Non-African American GFR(CKD) 88 (>60 ml/min/1.73 sqM)
--- NOTE | 2023-06-15 08:20 | P.PN ---
Subjective Progress Note Date: 06/15/23 Principal diagnosis: Pressure ulcer A shunt is seen and examined today as a follow-up. Yesterday he underwent debridement of his left heel. No pus was noted. He is been afebrile. He states there is some pain at that heel. Otherwise no complaints. Objective - Vital Signs Vital signs: Vital Signs Temp 98.0 F 06/15/23 07:10 Pulse 60 06/15/23 07:10 Resp 16 06/15/23 07:10 BP 149/67 06/15/23 07:10 Pulse Ox 96 06/15/23 07:10 FiO2 Intake & Output 06/14/23 06/15/23 06/15/23 18:59 06:59 18:59 Intake Total 400 Output Total 602 1850 Balance - -1849 Weight 72.575 kg Intake: IV 400 Output: Urine 600 1850 Estimated Blood Loss 2 Other: Voiding Method External Catheter External Catheter - Exam General appearance: The patient is alert, oriented, appears in no acute distress. HET: Head is normocephalic and atraumatic. Neck: Supple. Abdomen: Soft, nondistended. Extremities: Left foot with dressing clean dry and intact. Good capillary refill. Neurological: No focal deficits. - Labs CBC & Chem 7: 06/14/23 05:43 06/15/23 06:11 Labs: Abnormal Lab Results - Last 24 Hours (Table) 06/14/23 06/14/23 06/14/23 Range/Units 05:43 05:43 16:32 RBC 3.50 L (4.40-5.60) X 10*6/uL Hgb 10.2 L (13.0-17.0) d/dL Hct 31.9 L (39.6-50.0) % RDW 15.3 H (11.5-14.5) % BUN 38.1 H (9.0-27.0) mg/dL BUN/Creatinine Ratio 38.10 H (12.00-20.00) Ratio Glucose 210 H (70-110) mg/dL POC Glucose (mg/dL) 124 H (70-110) mg/dL Total Bilirubin <0.2 L (0.3-1.2) mg/dL AST 36 H (14-35) U/L Albumin 2.5 L (3.8-4.9) d/dL Globulin 4.4 H (1.6-3.3) d/dL Albumin/Globulin Ratio 0.57 L (1.60-3.17) Ratio 06/14/23 06/15/23 06/15/23 Range/Units 21:45 06:16 06:19 RBC (4.40-5.60) X 10*6/uL Hgb (13.0-17.0) d/dL Hct (39.6-50.0) % RDW (11.5-14.5) % BUN (9.0-27.0) mg/dL BUN/Creatinine Ratio (12.00-20.00) Ratio Glucose (70-110) mg/dL POC Glucose (mg/dL) 216 H 212 H 238 H (70-110) mg/dL Total Bilirubin (0.3-1.2) mg/dL AST (14-35) U/L Albumin (3.8-4.9) d/dL Globulin (1.6-3.3) d/dL Albumin/Globulin Ratio (1.60-3.17) Ratio Assessment and Plan Assessment: 1. Unstageable Pressure ulcer left heel status post surgical debridement 2. Osteomyelitis of the left calcaneus 3. Weakness 4. Multiple recent falls with right hip fracture, nonsurgical 5. Positive wound culture 6. Positive blood cultures 7. Diabetes mellitus 8. Hyperglycemia 9. Hyperkalemia 10. History coronary artery disease status post CABG, cardiac stent 11. History of peripheral arterial disease, with possible revascularization 12. History hypertension and hyperlipidemia Plan: 1. Continue symptomatic and supportive care 2. May resume Lovenox 3. Continue wound care as previously ordered 4. Offload Pressure to bilateral heels, recommend soft green mediboots 5. Arterial ultrasound of lower extremities ordered and reviewed 6. Nonweightbearing to left heel 7. Recommend outpatient follow-up with wound care clinic as previously recommended Thank you for this consultation. We will sign off at this time. The impression and plan of care has been dictated as directed. Dr. Romeo I performed a history and examination of this patient, discussed the same with the dictator. I agree with the dictator's note ,documented as a scribe. Any additional findings or plans will be noted.
[2023-06-15] MEDS: LISINOPRIL-HCTZ 20-12.5 MG 1 EACH TAB PO SCH ×2 (08:50→20:25)
[2023-06-15] MEDS: ASPIRIN 81 MG PO SCH (08:50)
[2023-06-15] MEDS: METOPROLOL TARTRATE 50 MG TAB PO SCH ×2 (08:50→20:25)
[2023-06-15] MEDS: FERROUS SULFATE 325 MG TAB PO SCH (08:50)
[2023-06-15] MEDS: ISOSORBIDE MONONITRATE ER 30 MG TAB.ER.24H PO SCH (08:50)
[2023-06-15] MEDS: ESCITALOPRAM 10 MG TAB PO SCH (08:50)
[2023-06-15] MEDS: ENOXAPARIN 40 MG/0.4 ML SYRINGE SQ SCH (08:50)
[2023-06-15] MEDS: TROSPIUM CHLORIDE 20 MG TABLET PO SCH (08:50)
[2023-06-15] MEDS: metroNIDAZOLE 500 MG TAB PO SCH ×3 (08:50→20:25)
[2023-06-15] MEDS: ATORVASTATIN 80 MG TAB PO SCH (08:50)
[2023-06-15] MEDS: metFORMIN 500 MG TAB PO SCH ×2 (08:50→18:05)
[2023-06-15] MEDS: DAPAGLIFLOZIN PROPANEDIOL 10 MG TABLET PO SCH (08:50)
[2023-06-15 12:20] LABS: Glucose,Whole Blood 236 mg/dL (70-110)
--- NOTE | 2023-06-15 15:00 | P.PN ---
Subjective Progress Note Date: 06/15/23 This is a 72-year-old patient who follows with Dr. Bell. History is obtained but the sister to patient at the bedside. Patient's sister is the guardian. And patient lives with her. Patient had a fall in March 31. Says that he is at least had 3 falls. Very recently patient had a fall where he went down about 10 stairs. When tried to go up stairs. The last few days patient started using a walker. He has pain in the left shoulder not able to move much since the fall. Also pain in the right hip. In the ER presentation on June 03 right hip x-ray did show subacute avulsion of the greater trocha nter. Because of fall patient also limited range of motion of left shoulder. Outpatient not barely able to move not even able to get out to urinate. Has been wetting the culture has been sleeping. Appetite is good. No fever no chills. Urine frequency. Does not have good control of the bladder. Good control on the bowels ears. Patient for about 20 years has a stutter. After he came out of her diabetic coma,. No respiratory symptoms. Patient also has a wound on the left heel. Dressing changed from Dr. Bell's wound care team. Painful. Some drainage. 06/07/2023: Up in a recliner. Feeling a bit better. Eating well. Seen by orthopedics Dr. Headley. Will follow up outpatient for the left shoulder. Right hip weightbearing as tolerated. With walker and assistance. Seen by wound care team. Nonweightbearing to the left heel. Seen by vascular Dr. Jackman. Offload both the years. Soft green MediPort. We will follow up outpatient. 06/08/2023: Patient's blood cultures are growing presumptive staph aureus. Wound cultures are growing Streptococcus agalactiae. Patient is on IV Ancef. Eating well. For increased blood pressure increase Lopressor to 50 mg twice a day. 06/09/2023: Discussed with Dr. Romeo from vascular. No surgical intervention on the heel wound. Cultures finalized for MSSA. Repeat blood cultures pending. 06/10/2023: Discussed with Dr. Go. He feels heel wound needs to be debrided. For deep cultures. He'll speak to vascular. Meantime continue IV vancomycin. Patient tolerating diet well. 06/28/2023: I spoke to Dr. Romeo. From vascular. She will arrange for the heel to be debrided. Meantime continue with IV vancomycin. Eating well. The pressure on the high side. Increase Zestoretic to 20/12.5 twice a day 06/12. Patient seen and examined. Going for bone scan today, vascular planning bedside debridement 06/13. Patient seen and examined. 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 Patient seen and examined. Currently, scheduled for procedure today 06/15. Patient seen and examined. Currently her oral Flagyl and vancomycin. Possible discharge to rehab tomorrow REVIEW OF SYSTEMS: CONSTITUTIONAL: No fever, no malaise,. CARDIOVASCULAR: No chest pain, no palpitations, no syncope. PULMONARY: No shortness of breath, no cough, GASTROINTESTINAL: No diarrhea, no nausea, no vomiting, no abdominal pain. NEUROLOGICAL: No headaches, no weakness, PHYSICAL EXAMINATION: GENERAL: The patient is alert and oriented x3, not in any acute distress. Well developed, well nourished. HEENT: Pupils are round and equally reacting to light. EOMI. No scleral icterus. No conjunctival pallor. Normocephalic, atraumatic. No pharyngeal erythema. No thyromegaly. CARDIOVASCULAR: S1 and S2 present. No murmurs, rubs, or gallops. PULMONARY: Chest is clear to auscultation, no wheezing or crackles. ABDOMEN: Soft, nontender, nondistended, normoactive bowel sounds. No palpable organomegaly. MUSCULOSKELETAL: No joint swelling or deformity. EXTREMITIES: Left heel bandage seen NEUROLOGICAL: Gross neurological examination did not reveal any focal deficits. SKIN: No rashes. Assessment and plan -Multiple falls related to underlying left shoulder injury, right hip injury, likely precipitating the initial fall in March of this year. 10 days ago patient has not undertaken fall from the stairs about 10 stairs down. -Sepsis and blood cultures positive for MSSA.: Monitor vital signs Monitor CBC Continue vancomycin pharmacy dose and oral Flagyl Bone scan showed osteomyelitis in the left calcaneal Status post left heel bedside debridement Vascular surgery following -Likely left shoulder rotator cuff injury secondary to fall about 10 days ago. X-rays ruled out fracture. \ Seen by Dr. Pack. With follow-up outpatient. -Right great greater trochanter avulsion fracture. Seen by Dr. Pack. No surgical intervention -Left heel ulcer stage I, not infected., Probably secondary to diabetes mellitus type 2 Seen by vascular and ID. Wound care. Status post left heel bedside debridement Vascular surgery following -Diabetes mellitus type 2, uncontrolled with hyperglycemia Metformin. Continue current insulin regimen Follow Accu-Cheks and sliding scale. jardiance -Depression Lexapro -Acute UTI with cystitis Completed Course of antibiotics for UTI -Hyperlipidemia Lipitor -CAD with a prior history of stent and a bypass Aspirin. Lipitor. Imdur. Lopressor. -Essential hypertension, uncontrolled Lopressor 50 mg twice a day. Continue lisinopril hydrochlorothiazide 20/12.5 one tablet twice a day. -Hypothyroid Synthroid -Chronic stuttering Labs and medication were reviewed.. Continue same treatment. Continue with symptomatic treatment. Resume home medication. Monitor labs and vitals. DVT and GI prophylaxis. Further recommendations as per clinical course of the patient Dictation was produced using [employer] dictation software. please excuse any grammatical, word or spelling errors. Objective - Vital Signs Vital signs: Vital Signs Temp 98.0 F 06/15/23 07:10 Pulse 60 06/15/23 07:10 Resp 16 06/15/23 07:10 BP 149/67 06/15/23 07:10 Pulse Ox 97 06/15/23 08:21 FiO2 21 06/15/23 08:21 Intake & Output 06/14/23 06/15/23 06/15/23 18:59 06:59 18:59 Intake Total 400 118 Output Total 602 1850 850 Balance - - Weight 72.575 kg Intake: IV 400 Oral 118 Output: Urine 600 1850 850 Estimated Blood Loss 2 Other: Voiding Method External Catheter External Catheter External Catheter - Labs CBC & Chem 7: 06/14/23 05:43 06/15/23 06:11 Labs: Abnormal Lab Results - Last 24 Hours (Table) 06/14/23 06/14/23 06/15/23 Range/Units 16:32 21:45 06:16 POC Glucose (mg/dL) 124 H 216 H 212 H (70-110) mg/dL 06/15/23 06/15/23 Range/Units 06:19 12:20 POC Glucose (mg/dL) 238 H 236 H (70-110) mg/dL
[2023-06-15 17:10] LABS: Glucose,Whole Blood 219 mg/dL (70-110)
[2023-06-15] MEDS: GABAPENTIN 300 MG CAP PO SCH (20:25)
[2023-06-15 20:41] LABS: Glucose,Whole Blood 184 mg/dL (70-110)
[2023-06-16] MEDS: HYDROcodone/APAP 5-325MG 1 EACH TAB PO PRN ×3 (01:59→14:15)
[2023-06-16 03:13] VITALS: RESP 16
[2023-06-16] MEDS: INSULIN ASPART (NovoLOG) 100 UNIT/ML VIAL SQ SCH ×4 (06:22→12:55)
[2023-06-16 06:23] LABS: Glucose,Whole Blood 72 mg/dL (70-110)
[2023-06-16] MEDS: LEVOTHYROXINE 137 MCG TAB PO SCH (06:50)
[2023-06-16] MEDS: PANTOPRAZOLE 40 MG TABLET PO SCH (06:50)
[2023-06-16 06:55] LABS: Glucose,Whole Blood 118 mg/dL (70-110)
[2023-06-16] MEDS ORDERED: VANCOMYCIN TROUGH DUE 1 EACH MISC MISCELLANE ONE (07:00)
[2023-06-16 07:08] LABS: African American GFR (CKD) 70 (>60 ml/min/1.73 sqM); Non-African American GFR(CKD) 61 (>60 ml/min/1.73 sqM)
[2023-06-16] MEDS: INSULIN DETEMIR (LEVEMIR) 100 UNIT/ML SYR SQ SCH (08:14)
[2023-06-16] MEDS: ATORVASTATIN 80 MG TAB PO SCH (08:14)
[2023-06-16] MEDS: FERROUS SULFATE 325 MG TAB PO SCH (08:14)
[2023-06-16] MEDS: DAPAGLIFLOZIN PROPANEDIOL 10 MG TABLET PO SCH (08:14)
[2023-06-16] MEDS: ESCITALOPRAM 10 MG TAB PO SCH (08:14)
[2023-06-16] MEDS: METOPROLOL TARTRATE 50 MG TAB PO SCH (08:14)
[2023-06-16] MEDS: ENOXAPARIN 40 MG/0.4 ML SYRINGE SQ SCH (08:14)
[2023-06-16] MEDS: ASPIRIN 81 MG PO SCH (08:15)
[2023-06-16] MEDS: LISINOPRIL-HCTZ 20-12.5 MG 1 EACH TAB PO SCH (08:15)
[2023-06-16] MEDS: TROSPIUM CHLORIDE 20 MG TABLET PO SCH (08:15)
[2023-06-16] MEDS: ISOSORBIDE MONONITRATE ER 30 MG TAB.ER.24H PO SCH (08:15)
[2023-06-16] MEDS: metFORMIN 500 MG TAB PO SCH (08:15)
[2023-06-16] MEDS: metroNIDAZOLE 500 MG TAB PO SCH (08:15)
--- NOTE | 2023-06-16 08:31 | P.PN ---
Subjective Progress Note Date: 06/12/23 Principal diagnosis: Left heel ulcer and bacteremia Patient is a 72-year-old male with a past medical history significant for diabetes mellitus hypertension hyperlipidemia CA coronary artery disease did have a recent discharge from snf, presenting to the hospital with weakness and fall and did have wound to the left heel area, subsequently blood cultures currently positive with MSSA. On today's evaluation that is 06/12/2023 the patient continues to be afebrile, the patient is breathing comfortably on room air. The patient denies any chest pain or shortness with occasional cough no abdominal pain or diarrhea still complaining of pain to the left heel area. Patient did have a normal creatinine 0.77, hemoglobin is 10.5 white count 8.79, local culture positive for MRSA strep and anaerobes blood culture with MSSA repeat blood culture negative so far Objective - Vital Signs Vital signs: Vital Signs Temp 98.2 F 06/12/23 08:00 Pulse 79 06/12/23 08:00 Resp 16 06/12/23 08:00 BP 126/63 06/12/23 08:00 Pulse Ox 96 06/12/23 08:00 FiO2 Intake & Output 06/11/23 06/12/23 06/12/23 18:59 06:59 18:59 Intake Total 951 Output Total 2200 1550 Balance -1249 -1550 Intake: Oral 951 Output: Urine 2200 1550 Other: Voiding Method Diaper Diaper External Catheter External Catheter - Exam GENERAL DESCRIPTION: Elderly male lying in bed in no distress RESPIRATORY SYSTEM: Unlabored breathing , decreased breath sounds at bases HEART: S1 S2 regular rate and rhythm ,no loud murmurs ABDOMEN: Soft , no tenderness EXTREMITIES: Left heel wound with black esher , surrounding redness and foul smell - Labs CBC & Chem 7: 06/14/23 05:43 06/16/23 06:43 Labs: Abnormal Lab Results - Last 24 Hours (Table) 06/11/23 06/11/23 06/11/23 Range/Units 07:45 12:08 18:07 RBC 3.76 L (4.40-5.60) X 10*6/uL Hgb 10.5 L (13.0-17.0) d/dL Hct 34.4 L (39.6-50.0) % MCHC 30.5 L (32.0-37.0) d/dL RDW 14.9 H (11.5-14.5) % POC Glucose (mg/dL) 385 H 423 H (70-110) mg/dL 06/11/23 Range/Units 20:08 RBC (4.40-5.60) X 10*6/uL Hgb (13.0-17.0) d/dL Hct (39.6-50.0) % MCHC (32.0-37.0) d/dL RDW (11.5-14.5) % POC Glucose (mg/dL) 436 H (70-110) mg/dL Microbiology - Last 24 Hours (Table) 06/08/23 06:00 Blood Culture - Preliminary Blood Assessment and Plan (1) Bacteremia Current Visit: Yes Status: Acute Code(s): R78.81 - BACTEREMIA SNOMED Code(s): 0071497 Plan: 1patient presented hospital with weakness multiple falls which is likely multifactorial patient did have a significantly positive UA some vague urinary symptoms underlying urinary source are not really excluded 2-patient did have a unstagble pressure ulcer to the left heel area Now with local cultures growing MRSA and Streptococcus , With concern for possible deep infection and foul-smelling from the left heel patient benefit from surgical debridement that will determine the extent of infection and possible underlying osteo however vascular surgery wants debridement to be done as an outpatient, in my clinical opinion the patient benefit from surgical debridement during this hospital stay , bone scan is in progress 3- Pt to continue with the vancomycin while watching his kidney function closely Dictation was produced using [employer] dictation software. please excuse any grammatical, word or spelling errors. Time with Patient: Less than 30
--- NOTE | 2023-06-16 08:33 | P.PN ---
Subjective Progress Note Date: 06/13/23 Principal diagnosis: Left heel ulcer and bacteremia Patient is a 72-year-old male with a past medical history significant for diabetes mellitus hypertension hyperlipidemia [place] coronary artery disease did have a recent discharge from longterm, presenting to the hospital with weakness and fall and did have wound to the left heel area, subsequently blood cultures currently positive with MSSA. On today's evaluation that is 06/13/2023 the patient denies having any fever or any chills the patient is breathing comfortably on room air denies any chest pain shortness of breath or cough no nausea noted no abdominal pain patient continued complaint of pain to the left heel area. Patient did have a white count of 8.5 that hemoglobin is 10.5 creatinine 0.83 Vanco trough has been high. Bone scan came a positive suspicious for osteomyelitis to the left heel area Objective - Vital Signs Vital signs: Vital Signs Temp 98.2 F 06/14/23 07:42 Pulse 57 L 06/14/23 07:42 Resp 16 06/14/23 07:42 BP 165/70 06/14/23 07:42 Pulse Ox 94 L 06/14/23 07:42 FiO2 Intake & Output 06/13/23 06/14/23 06/14/23 18:59 06:59 18:59 Intake Total 474 Output Total 700 700 Balance -226 -700 Intake: Oral 474 Output: Urine 700 700 Other: Voiding Method External Catheter External Catheter - Exam GENERAL DESCRIPTION: Elderly male lying in bed in no distress RESPIRATORY SYSTEM: Unlabored breathing , decreased breath sounds at bases HEART: S1 S2 regular rate and rhythm ,no loud murmurs ABDOMEN: Soft , no tenderness EXTREMITIES: Left heel wound with black esher , surrounding redness and foul smell - Labs CBC & Chem 7: 06/14/23 05:43 06/16/23 06:43 Labs: Abnormal Lab Results - Last 24 Hours (Table) 06/13/23 06/13/23 06/13/23 Range/Units 06:03 06:03 12:28 RBC 3.68 L (4.40-5.60) X 10*6/uL Hgb 10.5 L (13.0-17.0) d/dL Hct 33.9 L (39.6-50.0) % MCHC 31.0 L (32.0-37.0) d/dL RDW 15.0 H (11.5-14.5) % BUN (9.0-27.0) mg/dL BUN/Creatinine Ratio (12.00-20.00) Ratio Glucose (70-110) mg/dL POC Glucose (mg/dL) 291 H (70-110) mg/dL Hemoglobin A1c 10.3 H (<=6.0) % Total Bilirubin (0.3-1.2) mg/dL AST (14-35) U/L Albumin (3.8-4.9) d/dL Globulin (1.6-3.3) d/dL Albumin/Globulin Ratio (1.60-3.17) Ratio 06/13/23 06/13/23 06/14/23 Range/Units 17:11 21:37 05:43 RBC (4.40-5.60) X 10*6/uL Hgb (13.0-17.0) d/dL Hct (39.6-50.0) % MCHC (32.0-37.0) d/dL RDW (11.5-14.5) % BUN 38.1 H (9.0-27.0) mg/dL BUN/Creatinine Ratio 38.10 H (12.00-20.00) Ratio Glucose 210 H (70-110) mg/dL POC Glucose (mg/dL) 194 H 153 H (70-110) mg/dL Hemoglobin A1c (<=6.0) % Total Bilirubin <0.2 L (0.3-1.2) mg/dL AST 36 H (14-35) U/L Albumin 2.5 L (3.8-4.9) d/dL Globulin 4.4 H (1.6-3.3) d/dL Albumin/Globulin Ratio 0.57 L (1.60-3.17) Ratio 06/14/23 Range/Units 06:11 RBC (4.40-5.60) X 10*6/uL Hgb (13.0-17.0) d/dL Hct (39.6-50.0) % MCHC (32.0-37.0) d/dL RDW (11.5-14.5) % BUN (9.0-27.0) mg/dL BUN/Creatinine Ratio (12.00-20.00) Ratio Glucose (70-110) mg/dL POC Glucose (mg/dL) 205 H (70-110) mg/dL Hemoglobin A1c (<=6.0) % Total Bilirubin (0.3-1.2) mg/dL AST (14-35) U/L Albumin (3.8-4.9) d/dL Globulin (1.6-3.3) d/dL Albumin/Globulin Ratio (1.60-3.17) Ratio Microbiology - Last 24 Hours (Table) 06/08/23 06:00 Blood Culture - Final Blood Assessment and Plan (1) Bacteremia Current Visit: Yes Status: Acute Code(s): R78.81 - BACTEREMIA SNOMED Code(s): 3580682 Plan: 1patient presented hospital with weakness multiple falls which is likely multifactorial patient did have a significantly positive UA some vague urinary symptoms underlying urinary source are not really excluded 2-patient did have a unstagble pressure ulcer to the left heel area Now with local cultures growing MRSA and Streptococcus , With concern for possible deep infection and foul-smelling from the left heel , With a local culture positive for MRSA and the bone scan is suspicious for osteomyelitis of the calcaneus vascular surgery is planning for OR drainage of left heel. 3we will keep the patient on vancomycin however need to monitor his trough closely to keep it around 15 and will watch his kidney function closely patient will get a PICC line for outpatient antibiotics Dictation was produced using [employer] dictation software. please excuse any grammatical, word or spelling errors. Time with Patient: Less than 30
--- NOTE | 2023-06-16 08:35 | P.PN ---
Subjective Progress Note Date: 06/14/23 Principal diagnosis: Left heel ulcer and bacteremia Patient is a 72-year-old male with a past medical history significant for diabetes mellitus hypertension hyperlipidemia [place] coronary artery disease did have a recent discharge from [facility], presenting to the hospital with weakness and fall and did have wound to the left heel area, subsequently blood cultures currently positive with MSSA. On today's evaluation that is 06/14/2023 patient denies having any fever or any chills, the patient is breathing comfortably on room air no chest pain no shortness of breath or cough no abdominal pain no diarrhea at the patient no bowel movement pain to the left it is currently controlled. Patient did have a white count of 7.50 creatinine is 1.0 Objective - Vital Signs Vital signs: Vital Signs Temp 98.2 F 06/14/23 07:42 Pulse 57 L 06/14/23 07:42 Resp 16 06/14/23 07:42 BP 165/70 06/14/23 07:42 Pulse Ox 94 L 06/14/23 07:42 FiO2 Intake & Output 06/13/23 06/14/23 06/14/23 18:59 06:59 18:59 Intake Total 474 Output Total 700 700 Balance -226 -700 Intake: Oral 474 Output: Urine 700 700 Other: Voiding Method External Catheter External Catheter - Exam GENERAL DESCRIPTION: Elderly male lying in bed in no distress RESPIRATORY SYSTEM: Unlabored breathing , decreased breath sounds at bases HEART: S1 S2 regular rate and rhythm ,no loud murmurs ABDOMEN: Soft , no tenderness EXTREMITIES: Left heel wound with black esher , surrounding redness and foul smell - Labs CBC & Chem 7: 06/14/23 05:43 06/16/23 06:43 Labs: Abnormal Lab Results - Last 24 Hours (Table) 06/13/23 06/13/23 06/13/23 Range/Units 06:03 06:03 12:28 RBC 3.68 L (4.40-5.60) X 10*6/uL Hgb 10.5 L (13.0-17.0) d/dL Hct 33.9 L (39.6-50.0) % MCHC 31.0 L (32.0-37.0) d/dL RDW 15.0 H (11.5-14.5) % BUN (9.0-27.0) mg/dL BUN/Creatinine Ratio (12.00-20.00) Ratio Glucose (70-110) mg/dL POC Glucose (mg/dL) 291 H (70-110) mg/dL Hemoglobin A1c 10.3 H (<=6.0) % Total Bilirubin (0.3-1.2) mg/dL AST (14-35) U/L Albumin (3.8-4.9) d/dL Globulin (1.6-3.3) d/dL Albumin/Globulin Ratio (1.60-3.17) Ratio 06/13/23 06/13/23 06/14/23 Range/Units 17:11 21:37 05:43 RBC (4.40-5.60) X 10*6/uL Hgb (13.0-17.0) d/dL Hct (39.6-50.0) % MCHC (32.0-37.0) d/dL RDW (11.5-14.5) % BUN 38.1 H (9.0-27.0) mg/dL BUN/Creatinine Ratio 38.10 H (12.00-20.00) Ratio Glucose 210 H (70-110) mg/dL POC Glucose (mg/dL) 194 H 153 H (70-110) mg/dL Hemoglobin A1c (<=6.0) % Total Bilirubin <0.2 L (0.3-1.2) mg/dL AST 36 H (14-35) U/L Albumin 2.5 L (3.8-4.9) d/dL Globulin 4.4 H (1.6-3.3) d/dL Albumin/Globulin Ratio 0.57 L (1.60-3.17) Ratio 06/14/23 Range/Units 06:11 RBC (4.40-5.60) X 10*6/uL Hgb (13.0-17.0) d/dL Hct (39.6-50.0) % MCHC (32.0-37.0) d/dL RDW (11.5-14.5) % BUN (9.0-27.0) mg/dL BUN/Creatinine Ratio (12.00-20.00) Ratio Glucose (70-110) mg/dL POC Glucose (mg/dL) 205 H (70-110) mg/dL Hemoglobin A1c (<=6.0) % Total Bilirubin (0.3-1.2) mg/dL AST (14-35) U/L Albumin (3.8-4.9) d/dL Globulin (1.6-3.3) d/dL Albumin/Globulin Ratio (1.60-3.17) Ratio Microbiology - Last 24 Hours (Table) 06/08/23 06:00 Blood Culture - Final Blood Assessment and Plan (1) Bacteremia Current Visit: Yes Status: Acute Code(s): R78.81 - BACTEREMIA SNOMED Code(s): 8405808 Plan: 1patient presented hospital with weakness multiple falls which is likely multifactorial patient did have a significantly positive UA some vague urinary symptoms underlying urinary source are not really excluded 2-patient did have a unstagble pressure ulcer to the left heel area Now with local cultures growing MRSA and Streptococcus , With concern for possible deep infection and foul-smelling from the left heel , With a local culture positive for MRSA and the bone scan is suspicious for osteomyelitis of the calcaneus vascular surgery is planning for OR drainage of left heel This afternoon along with deep culture. 3continue with the vancomycin pharmacy to dose target trough 15 patient will require a PICC line for outpatient IV antibiotic therapy Dictation was produced using [email or web address] dictation software. please excuse any grammatical, word or spelling errors. Time with Patient: Less than 30
--- NOTE | 2023-06-16 08:38 | P.PN ---
Subjective Progress Note Date: 06/15/23 Principal diagnosis: Left heel ulcer and bacteremia Patient is a 72-year-old male with a past medical history significant for diabetes mellitus hypertension hyperlipidemia [place] coronary artery disease did have a [facility], presenting to the hospital with weakness and fall and did have wound to the left heel area, subsequently blood cultures currently positive with MSSA. On today's evaluation that is 06/15/2023 the patient denies having any fever or any chills he is breathing comfortably on room air denies any chest pain shortness of breath or cough no abdominal pain or worsening pain to the left heel patient has been complaining of constipation with no bowel movement during this admission. Patient did have a normal creatinine 0.84 no CBC was done today repeat blood culture negative OR culture from 06/14/2023 pending Objective - Vital Signs Vital signs: Vital Signs Temp 98.0 F 06/15/23 07:10 Pulse 60 06/15/23 07:10 Resp 16 06/15/23 07:10 BP 149/67 06/15/23 07:10 Pulse Ox 97 06/15/23 08:21 FiO2 21 06/15/23 08:21 Intake & Output 06/14/23 06/15/23 06/15/23 18:59 06:59 18:59 Intake Total 400 118 Output Total 602 1850 Balance - -1849 118 Weight 72.575 kg Intake: IV 400 Oral 118 Output: Urine 600 1850 Estimated Blood Loss 2 Other: Voiding Method External Catheter External Catheter - Exam GENERAL DESCRIPTION: Elderly male lying in bed in no distress RESPIRATORY SYSTEM: Unlabored breathing , decreased breath sounds at bases HEART: S1 S2 regular rate and rhythm ,no loud murmurs ABDOMEN: Soft , no tenderness EXTREMITIES: Left heel wound is currently dressed no drainage on the dressing - Labs CBC & Chem 7: 06/14/23 05:43 06/16/23 06:43 Labs: Abnormal Lab Results - Last 24 Hours (Table) 06/14/23 06/14/23 06/14/23 Range/Units 05:43 16:32 21:45 RBC 3.50 L (4.40-5.60) X 10*6/uL Hgb 10.2 L (13.0-17.0) d/dL Hct 31.9 L (39.6-50.0) % RDW 15.3 H (11.5-14.5) % POC Glucose (mg/dL) 124 H 216 H (70-110) mg/dL 06/15/23 06/15/23 Range/Units 06:16 06:19 RBC (4.40-5.60) X 10*6/uL Hgb (13.0-17.0) d/dL Hct (39.6-50.0) % RDW (11.5-14.5) % POC Glucose (mg/dL) 212 H 238 H (70-110) mg/dL Assessment and Plan (1) Bacteremia Current Visit: Yes Status: Acute Code(s): R78.81 - BACTEREMIA SNOMED Code(s): 1048103 Plan: 1-patient did have a unstagble pressure ulcer to the left heel area Now with local cultures growing MRSA and Streptococcus , With concern for possible deep infection and foul-smelling from the left heel , With a local culture positive for MRSA and the bone scan is suspicious for osteomyelitis of the calcaneus Patient is status post surgical drainage however no significant purulence or destruction of the bone reported by the surgeon deep cultures obtained which are currently pending. 2patient already get a PICC line plan is for a 6-week course of IV vancomycin pharmacy to dose target of 15 along with oral Flagyl and close outpatient follow-up Discharge antibiotic discussed with the admitting team Dictation was produced using [employer] dictation software. please excuse any grammatical, word or spelling errors. Time with Patient: Less than 30
[2023-06-16 11:07] LABS: HCT 34.3 % (39.6-50.0); HGB 10.7 d/dL (13.0-17.0); MCH 28.5 pg (27.0-32.0); MCHC 31.2 d/dL (32.0-37.0); MCV 91.5 FL (80.0-97.0); Mean Platelet Volume 10.2 FL (9.5-12.2); NRBC Per 100 WBC 0 X 10*3/uL (0.00-0.01); Platelet Count 422 X 10*3/uL (140-440); RBC 3.75 X 10*6/uL (4.40-5.60); RDW 15.4 % (11.5-14.5); WBC 10.11 X 10*3/uL (4.50-10.00)
[2023-06-16] MEDS ORDERED: SENNOSIDES 8.6 MG TAB PO SCH (12:15)
[2023-06-16 12:35] LABS: Glucose,Whole Blood 222 mg/dL (70-110)
--- NOTE | 2023-06-16 12:35 | P.DS ---
Providers Date of admission: 06/06/23 14:41 Expected date of discharge: 06/16/23 Attending physician: José Luis Parks Consults: 06/06/23 12:41 Consult Physician Routine Consulting Provider: Chava Pack Consult Reason/Comments: fall - pain diff joints Do you want consulting provider notified?: Yes 06/06/23 14:44 Consult Physician Routine Consulting Provider: Candido Fairbanks Consult Reason/Comments: Left heel wound Do you want consulting provider notified?: Yes Primary care physician: Mika Hollowaysaint elizabeth hebrontequila [facility] Course: Discharge diagnoses; -Multiple falls related to underlying left shoulder injury, right hip injury, likely precipitating the initial fall in March of this year. 10 days ago patient has not undertaken fall from the stairs about 10 stairs down. -Sepsis and blood cultures positive for MSSA.: -Likely left shoulder rotator cuff injury secondary to fall about 10 days ago. -Right great greater trochanter avulsion fracture. -Left heel ulcer -Diabetes mellitus type 2, uncontrolled with hyperglycemia -Depression -Acute UTI with cystitis -Hyperlipidemia -CAD with a prior history of stent and a bypass -Essential hypertension, uncontrolled -Hypothyroid -Chronic stuttering Hospital course; This is a 72-year-old patient who follows with Dr. Bell. History is obtained but the sister to patient at the bedside. Patient's sister is the guardian. And patient lives with her. Patient had a fall in March 31. Says that he is at least had 3 falls. Very recently patient had a fall where he went down about 10 stairs. When tried to go up stairs. The last few days patient started using a walker. He has pain in the left shoulder not able to move much since the fall. Also pain in the right hip. In the ER presentation on June 03 right hip x-ray did show subacute avulsion of the greater trochanter. Because of fall patient also limited range of motion of left shoulder. Outpatient not barely able to move not even able to get out to urinate. Has been wetting the culture has been sleeping. Appetite is good. No fever no chills. Urine frequency. Does not have good control of the bladder. Good control on the bowels ears. Patient for about 20 years has a stutter. After he came out of her diabetic coma,. No respiratory symptoms. Patient also has a wound on the left heel. Dressing changed from Dr. Bell's wound care team. Painful. Some drainage. 06/07/2023: Up in a recliner. Feeling a bit better. Eating well. Seen by orthopedics Dr. Headley. Will follow up outpatient for the left shoulder. Right hip weightbearing as tolerated. With walker and assistance. Seen by wound care team. Nonweightbearing to the left heel. Seen by vascular Dr. Jackman. Offload both the years. Soft green [employer]. We will follow up outpatient. 06/08/2023: Patient's blood cultures are growing presumptive staph aureus. Wound cultures are growing Streptococcus agalactiae. Patient is on IV Ancef. Eating well. For increased blood pressure increase Lopressor to 50 mg twice a day. 06/09/2023: Discussed with Dr. Romeo from vascular. No surgical intervention on the heel wound. Cultures finalized for MSSA. Repeat blood cultures pending. 06/10/2023: Discussed with Dr. Go. He feels heel wound needs to be debrided. For deep cultures. He'll speak to vascular. Meantime continue IV vancomycin. Patient tolerating diet well. 06/28/2023: I spoke to Dr. Romeo. From vascular. She will arrange for the heel to be debrided. Meantime continue with IV vancomycin. Eating well. The pressure on the high side. Increase Zestoretic to 20/12.5 twice a day 06/12. Patient seen and examined. Going for bone scan today, vascular planning bedside debridement 06/13. Patient seen and examined. 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 Patient seen and examined. Currently, scheduled for procedure today 06/15. Patient seen and examined.Status post left heel bedside debridement Currently her oral Flagyl and vancomycin. Possible discharge to rehab tomorrow 06/16. Being discharged on oral Flagyl and vancomycin for 6 weeks. Outpatient follow-up with vascular surgery and ID PHYSICAL EXAMINATION: GENERAL: The patient is alert and oriented x3, not in any acute distress. Well developed, well nourished. HEENT: Pupils are round and equally reacting to light. EOMI. No scleral icterus. No conjunctival pallor. Normocephalic, atraumatic. No pharyngeal erythema. No thyromegaly. CARDIOVASCULAR: S1 and S2 present. No murmurs, rubs, or gallops. PULMONARY: Chest is clear to auscultation, no wheezing or crackles. ABDOMEN: Soft, nontender, nondistended, normoactive bowel sounds. No palpable organomegaly. MUSCULOSKELETAL: Left heel bandage seen EXTREMITIES: No cyanosis, clubbing, or pedal edema. NEUROLOGICAL: Gross neurological examination did not reveal any focal deficits. SKIN: No rashes. Dictation was produced using [employer] dictation software. please excuse any grammatical, word or spelling errors. Patient Condition at Discharge: Good Plan - Discharge Summary Discharge Rx Participant: Yes New Discharge Prescriptions: New Vancomycin HCl in 5 % Dextrose [Vancomycin 1 Gram/250 ml-D5w] 1.25 gm IV Q12HR #84 each Metoprolol Tartrate [Lopressor] 50 mg PO BID #30 tab INSULIN ASPART (NovoLOG) [NovoLOG (formulary)] 0 unit SQ ACHS each Lisinopril-Hctz 20-12.5 mg [Zestoretic 20-12.5] 1 each PO BID #30 tab metroNIDAZOLE [Flagyl] 500 mg PO TID #90 tab Insulin Detemir (Levemir) [Levemir] 20 unit SQ BID@0700,2100 each Gabapentin [Neurontin] 300 mg PO HS #3 cap INSULIN ASPART (NovoLOG) [NovoLOG (formulary)] 7 unit SQ AC-TID #0 each Continue Isosorbide Mononitrate ER [Imdur] 30 mg PO DAILY Pantoprazole Sodium [Protonix] 40 mg PO DAILY Ferrous Sulfate [Iron (65 MG Elemental)] 325 mg PO DAILY Aspirin [Greenbrier Aspirin EC] 81 mg PO DAILY Levothyroxine Sodium [Synthroid] 137 mcg PO DAILY Ammonium Lactate Cream [Lac-Hydrin 12% Cream] 1 applic TOPICAL BID PRN PRN Reason: Dry Skin Empagliflozin [Jardiance] 25 mg PO DAILY Glucagon Emergency Kit 1 mg IM ONCE PRN PRN Reason: LOW BLOOD SUGAR Escitalopram [Lexapro] 10 mg PO DAILY HYDROcodone/APAP 5-325MG [Odin 5-325] 1 tab PO Q6HR PRN #12 PRN Reason: Pain Atorvastatin [Lipitor] 80 mg PO HS metFORMIN HCL ER [Glucophage XR] 1,000 mg PO W/SUPPER Solifenacin Succinate [Vesicare] 5 mg PO DAILY Discontinued Metoprolol Tartrate [Lopressor] 25 mg PO BID Gabapentin [Neurontin] 300 mg PO TID 3 Days #6 cap Insulin Glargine,Hum.rec.anlog [Lantus Solostar Pen] 26 units SQ DAILY Insulin Aspart [NovoLOG Flexpen] 5 units SQ AC-BID Insulin Aspart [NovoLOG Flexpen] 7 units SQ AC-LUNCH Discharge Medication List Aspirin [Green[place]rier Aspirin EC] 81 mg PO DAILY 03/13/19 [History] Ferrous Sulfate [Iron (65 MG Elemental)] 325 mg PO DAILY 03/13/19 [History] Isosorbide Mononitrate ER [Imdur] 30 mg PO DAILY 03/13/19 [History] Levothyroxine Sodium [Synthroid] 137 mcg PO DAILY 03/13/19 [History] Pantoprazole Sodium [Protonix] 40 mg PO DAILY 03/13/19 [History] Ammonium Lactate Cream [Lac-Hydrin 12% Cream] 1 applic TOPICAL BID PRN 04/13/23 [History] Atorvastatin [Lipitor] 80 mg PO HS 04/13/23 [History] Empagliflozin [Jardiance] 25 mg PO DAILY 04/13/23 [History] Escitalopram [Lexapro] 10 mg PO DAILY 04/13/23 [History] Glucagon Emergency Kit 1 mg IM ONCE PRN 04/13/23 [History] Solifenacin Succinate [Vesicare] 5 mg PO DAILY 04/13/23 [History] metFORMIN HCL ER [Glucophage XR] 1,000 mg PO W/SUPPER 04/13/23 [History] Vancomycin HCl in 5 % Dextrose [Vancomycin 1 Gram/250 ml-D5w] 1.25 gm IV Q12HR #84 each 06/15/23 [Rx] metroNIDAZOLE [Flagyl] 500 mg PO TID #90 tab 06/15/23 [Rx] Gabapentin [Neurontin] 300 mg PO HS #3 cap 06/16/23 [Rx] HYDROcodone/APAP 5-325MG [Odin 5-325] 1 tab PO Q6HR PRN #12 06/16/23 [Rx] INSULIN ASPART (NovoLOG) [NovoLOG (formulary)] 0 unit SQ ACHS each 06/16/23 [Rx] INSULIN ASPART (NovoLOG) [NovoLOG (formulary)] 7 unit SQ AC-TID #0 each 06/16/23 [Rx] Insulin Detemir (Levemir) [Levemir] 20 unit SQ BID@0700,2100 each 06/16/23 [Rx] Lisinopril-Hctz 20-12.5 mg [Zestoretic 20-12.5] 1 each PO BID #30 tab 06/16/23 [Rx] Metoprolol Tartrate [Lopressor] 50 mg PO BID #30 tab 06/16/23 [Rx] Follow up Appointment(s)/Referral(s): Mika Bell DO [Primary Care Provider] - 1-2 days [facility] [NON-STAFF] - 06/20/23 12:45 pm Candido Fairbanks MD [STAFF PHYSICIAN] - 2 Weeks Chava Pack MD [STAFF PHYSICIAN] - 2 Weeks Ambulatory/Diagnostic Orders: Basic Metabolic Panel [LAB.AMB] Location: None Selected C Reactive Protein [LAB.AMB] Location: None Selected Complete Blood Count w/diff [LAB.AMB] Location: None Selected Erythrocyte Sedimentation Rate [LAB.AMB] Location: None Selected Discharge Disposition: TRANSFER TO SNF/ECF
[2023-06-16 13:20] LABS: Blood Urea Nitrogen 36.6 mg/dL (9.0-27.0); Chloride 100 mmol/L (96-109); Glucose 83 mg/dL (70-110); Potassium 5.9 mmol/L (3.5-5.5); Sodium 137 mmol/L (135-145)
[2023-06-16 13:21] LABS: ALT 44 U/L (10-49); AST 35 U/L (14-35); Albumin/Globulin Ratio 0.56 Ratio (1.60-3.17); Alkaline Phosphatase 122 U/L (41-126); Calcium 9.4 mg/dL (8.7-10.3); Carbon Dioxide 26.6 mmol/L (21.6-31.8); Globulin 5.4 d/dL (1.6-3.3); Total Bilirubin 0.3 mg/dL (0.3-1.2); Total Protein 8.4 d/dL (6.2-8.2)
[2023-06-16 15:07] VITALS: BP 126/64; PULSE 75; TEMP 98.4
[2023-06-16] MEDS ORDERED: VANCOMYCIN 1,250 MG in SODIUM CHLORIDE 0.9% 250 ML IVPB SCH (18:00)
--- NOTE | 2023-06-23 15:41 | P.PN ---
Subjective Progress Note Date: 06/16/23 Principal diagnosis: Left heel ulcer and bacteremia Patient is a 72-year-old male with a past medical history significant for diabetes mellitus hypertension hyperlipidemia [place] coronary artery disease did have a recent discharge from [facility], presenting to the hospital with weakness and fall and did have wound to the left heel area, subsequently blood cultures currently positive with MSSA. On today's evaluation that is 06/16/2023 the patient remains to be afebrile, the patient is breathing comfortably on room air, the patient denies any chest pain shortness of breath or cough no abdominal pain or worsening pain to the left heel patient has been complaining of constipation with no bowel movement during this admission. Patient did have a normal creatinine, 1.19, white count is 10.11, left foot culture with MRSA and anaerobic gram-negative bacilli Objective - Vital Signs Vital signs: Vital Signs Temp 98.1 F 06/16/23 07:50 Pulse 63 06/16/23 07:50 Resp 16 06/16/23 07:50 BP 158/81 06/16/23 07:50 Pulse Ox 96 06/16/23 08:52 FiO2 21 06/16/23 08:52 Intake & Output 06/15/23 06/16/23 06/16/23 18:59 06:59 18:59 Intake Total 1552 Output Total 1600 1450 Balance -48 -1450 Intake: Oral 1552 Output: Urine 1600 1450 Other: Voiding Method External Catheter External Catheter - Exam GENERAL DESCRIPTION: Elderly male lying in bed in no distress RESPIRATORY SYSTEM: Unlabored breathing , decreased breath sounds at bases HEART: S1 S2 regular rate and rhythm ,no loud murmurs ABDOMEN: Soft , no tenderness EXTREMITIES: Left heel wound is currently dressed no drainage on the dressing - Labs CBC & Chem 7: 06/16/23 06:13 06/16/23 06:43 Labs: Abnormal Lab Results - Last 24 Hours (Table) 06/15/23 06/15/23 06/15/23 Range/Units 12:20 17:09 20:39 WBC (4.50-10.00) X 10*3/uL RBC (4.40-5.60) X 10*6/uL Hgb (13.0-17.0) d/dL Hct (39.6-50.0) % MCHC (32.0-37.0) d/dL RDW (11.5-14.5) % POC Glucose (mg/dL) 236 H 219 H 184 H (70-110) mg/dL 06/16/23 06/16/23 Range/Units 06:13 06:54 WBC 10.11 H (4.50-10.00) X 10*3/uL RBC 3.75 L (4.40-5.60) X 10*6/uL Hgb 10.7 L (13.0-17.0) d/dL Hct 34.3 L (39.6-50.0) % MCHC 31.2 L (32.0-37.0) d/dL RDW 15.4 H (11.5-14.5) % POC Glucose (mg/dL) 118 H (70-110) mg/dL Microbiology - Last 24 Hours (Table) 06/14/23 16:22 Gram Stain - Preliminary Foot - Left Assessment and Plan (1) Bacteremia Status: Acute Code(s): R78.81 - BACTEREMIA SNOMED Code(s): 5108389 Plan: 1-patient did have a unstagble pressure ulcer to the left heel area Now with local cultures growing MRSA and Streptococcus , With concern for possible deep infection and foul-smelling from the left heel , With a local culture positive for MRSA and the 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 please excuse any grammatical, word or spelling errors. Time with Patient: Less than 30
== END 2023-06-16 14:40 | DRG 854 ==
LOC: EC 06:21 → 6NMEDSUR 10:05 → OBSVTOIN 14:41
PROVIDERS: ADMIT Hospitalist; ATTEND Hospitalist
PROC: 02HV33Z Insertion of Infusion Device into Superior Vena Cava, Percutaneous Approach (ICD-10-PCS; 2023-06-14)
PROC: 0JBR0ZZ Excision of Left Foot Subcutaneous Tissue and Fascia, Open Approach (ICD-10-PCS; principal; 2023-06-14 09:40)
DX: A41.01 Sepsis due to Methicillin susceptible Staphylococcus aureus (principal); E87.1 Hypo-osmolality and hyponatremia; N30.00 Acute cystitis without hematuria; M86.9 Osteomyelitis, unspecified; E11.42 Type 2 diabetes mellitus with diabetic polyneuropathy; E11.51 Type 2 diabetes mellitus with diabetic peripheral angiopathy without gangrene; E11.621 Type 2 diabetes mellitus with foot ulcer; E11.65 Type 2 diabetes mellitus with hyperglycemia; E11.69 Type 2 diabetes mellitus with other specified complication; L89.620 Pressure ulcer of left heel, unstageable; Z79.4 Long term (current) use of insulin; Z28.310 Unvaccinated for COVID-19; S72.111D Displaced fracture of greater trochanter of right femur, subsequent encounter for closed fracture with routine healing; E78.5 Hyperlipidemia, unspecified; E87.5 Hyperkalemia; I10 Essential (primary) hypertension; E03.9 Hypothyroidism, unspecified; I25.10 Atherosclerotic heart disease of native coronary artery without angina pectoris; I25.2 Old myocardial infarction; K21.9 Gastro-esophageal reflux disease without esophagitis; F32.A Depression, unspecified; M19.012 Primary osteoarthritis, left shoulder; R29.6 Repeated falls; F80.81 Childhood onset fluency disorder; S91.301A Unspecified open wound, right foot, initial encounter; R32 Unspecified urinary incontinence; Z79.82 Long term (current) use of aspirin; Z79.84 Long term (current) use of oral hypoglycemic drugs; Z79.890 Hormone replacement therapy; Z79.899 Other long term (current) drug therapy; Z91.81 History of falling; Z87.891 Personal history of nicotine dependence; Z95.1 Presence of aortocoronary bypass graft; Z95.5 Presence of coronary angioplasty implant and graft; Z71.3 Dietary counseling and surveillance
CPT/HCPCS: 36415; 36573; 70450; 71046; 72125; 73502; 78315; 80053; 80202; 81001; 82009; 82565; 83036; 83605; 83735; 84484; 85025; 85027; 85610; 85652; 85730; 86140; 87040; 87070; 87075; 87077; 87086; 87186; 87205; 93005; 93922; 94760; 96361; 96374; 99285

== ENCOUNTER 2023-09-19 23:13 | Emergency (ER) | payer MEDICARE, BC ==
[2023-09-19 23:24] VITALS: TEMP 97.6
--- NOTE | 2023-09-19 23:27 | ED ---
Recheck HPI - General Chief Complaint: Recheck/Abnormal Lab/Rx Stated Complaint: Abn Labs Time Seen by Provider: 09/19/23 23:23 Source: patient, EMS Mode of arrival: EMS Limitations: no limitations - History of Present Illness Initial Comments: Colton is a 72-year-old man who presents to the emergency department today from [facility] after outpatient labs resulted with a high potassium. Patient had routine labs drawn earlier today he resulted this evening with the same of 6.4 so he is transported hospital for evaluation. Patient reports is been eating and drinking well and has not had any vomiting or abdominal pain. Patient states that he takes multiple pills a day but does not know what they are he states he takes whatever meds he is administered at [facility]. - Related Data Home Medications Medication Instructions Recorded Confirmed Aspirin [[place] Aspirin EC] 81 mg PO DAILY 03/13/19 06/06/23 Ferrous Sulfate [Iron (65 MG 325 mg PO DAILY 03/13/19 06/06/23 Elemental)] Isosorbide Mononitrate ER [Imdur] 30 mg PO DAILY 03/13/19 06/06/23 Levothyroxine Sodium [Synthroid] 137 mcg PO DAILY 03/13/19 06/06/23 Pantoprazole Sodium [Protonix] 40 mg PO DAILY 03/13/19 06/06/23 Ammonium Lactate Cream [Lac-Hydrin 1 applic TOPICAL BID PRN 04/13/23 06/06/23 12% Cream] Atorvastatin [Lipitor] 80 mg PO HS 04/13/23 06/06/23 Empagliflozin [Jardiance] 25 mg PO DAILY 04/13/23 06/06/23 Escitalopram [Lexapro] 10 mg PO DAILY 04/13/23 06/06/23 Glucagon Emergency Kit 1 mg IM ONCE PRN 04/13/23 06/06/23 Solifenacin Succinate [Vesicare] 5 mg PO DAILY 04/13/23 06/06/23 metFORMIN HCL ER [Glucophage XR] 1,000 mg PO W/SUPPER 04/13/23 06/06/23 Previous Rx's Medication Instructions Recorded Vancomycin HCl in 5 % Dextrose 1.25 gm IV Q12HR #84 each 06/15/23 [Vancomycin 1 Gram/250 ml-D5w] metroNIDAZOLE [Flagyl] 500 mg PO TID #90 tab 06/15/23 Gabapentin [Neurontin] 300 mg PO HS #3 cap 06/16/23 HYDROcodone/APAP 5-325MG [[place] 1 tab PO Q6HR PRN #12 06/16/23 5-325] INSULIN ASPART (NovoLOG) [NovoLOG 0 unit SQ ACHS each 06/16/23 (formulary)] INSULIN ASPART (NovoLOG) [NovoLOG 7 unit SQ AC-TID #0 each 06/16/23 (formulary)] Insulin Detemir (Levemir) [Levemir] 20 unit SQ BID@0700,2100 each 06/16/23 Lisinopril-Hctz 20-12.5 mg 1 each PO BID #30 tab 06/16/23 [Zestoretic 20-12.5] Metoprolol Tartrate [Lopressor] 50 mg PO BID #30 tab 06/16/23 Allergies Allergy/AdvReac Type Severity Reaction Status Date / Time No Known Allergies Allergy Verified 09/19/23 23:26 Review of Systems ROS Statement: Those systems with pertinent positive or pertinent negative responses have been documented in the HPI. ROS Other: All systems not noted in ROS Statement are negative. Past Medical History Past Medical History: Coronary Artery Disease (CAD), Diabetes Mellitus, GERD/Reflux, Hyperlipidemia, Hypertension, Myocardial Infarction (CT), Thyroid Disorder Additional Past Medical History / Comment(s): neuropathy Last Myocardial Infarction Date:: unknown History of Any Multi-Drug Resistant Organisms: MRSA Date of last positivie culture/infection: 06/14/23 MDRO Source:: Left Foot Past Surgical History: Appendectomy, Coronary Bypass/CABG, Heart Catheterization With Stent Additional Past Surgical History / Comment(s): Sister relays, "He had peripheral artery surgery too." Past Anesthesia/Blood Transfusion Reactions: No Reported Reaction Date of Last Stent Placement:: unknown Past Psychological History: Depression Smoking Status: Former smoker Past Alcohol Use History: Daily Past Drug Use History: Marijuana - Past Family History Father Family Medical History: Congestive Heart Failure (CHF) Mother Additional Family Medical History / Comment(s): of old age. General Exam Limitations: no limitations General appearance: alert Eye exam: Present: normal appearance ENT exam: Present: mucous membranes dry Respiratory exam: Absent: respiratory distress Cardiovascular Exam: Present: regular rate GI/Abdominal exam: Present: soft Rectal exam: Present: deferred Neurological exam: Present: alert Skin exam: Present: warm Course Vital Signs 09/19/23 09/20/23 23:17 00:20 Temperature 97.6 F Pulse Rate 67 63 Respiratory 18 18 Rate Blood Pressure 162/70 128/54 O2 Sat by Pulse 96 95 Oximetry Medical Decision Making - Medical Decision Making Was pt. sent in by a medical professional or institution (, [facility], [employer], urgent care, hospital, or mcc...) When possible be specific @ -Yes Dr. Av Echevarria Did you speak to anyone other than the patient for history (EMS, parent, family, police, friend...)? What history was obtained from this source @ -No Did you review nursing and triage notes (agree or disagree)? Why? @ -I reviewed and agree with nursing and triage notes Were old charts reviewed (outside hosp., previous admission, EMS record, old EKG, old radiological studies, urgent care reports/EKG's, mcc records)? Report findings @ -Previous labs were reviewed Differential Diagnosis (chest pain, altered mental status, abdominal pain women, abdominal pain men, vaginal bleeding, weakness, fever, dyspnea, syncope, headache, dizziness, GI bleed, back pain, seizure, CVA, palpatations, mental health, musculoskeletal)? @ -And him differential hyperkalemia, acute kidney injury, lab error EKG interpreted by me (3pts min.). @ -As above X-rays interpreted by me (1pt min.). @ -None done CT interpreted by me (1pt min.). @ -None done U/S interpreted by me (1pt. min.). @ -None done What testing was considered but not performed or refused? (CT, X-rays, U/S, labs)? Why? @ -None What meds were considered but not given or refused? Why? @ -None Did you discuss the management of the patient with other professionals (professionals i.e. , [facility], [employer]K ASSOCIATE, lab, RT, psych nurse, medical social worker, dining room host/hostess, teacher, marketing officer, case management assistant)? Give summary @ -No Was smoking cessation discussed for >3mins.? @ -No Was critical care preformed (if so, how long)? @ -No Were there social determinants of health that impacted care today? How? (Homele ssness, low income, unemployed, alcoholism, drug addiction, transportation, low edu. Level, literacy, decrease access to med. care, fpc, rehab)? @ -No Was there de-escalation of care discussed even if they declined (Discuss DNR or withdrawal of care, Hospice)? DNR status @ -No What co-morbidities impacted this encounter? (DM, HTN, Smoking, COPD, CAD, Cancer, CVA, ARF, Chemo, Hep., AIDS, mental health diagnosis, sleep apnea, morbid obesity)? @ -Diabetes, hypertension, CAD, CKD Was patient admitted / discharged? Hospital course, mention meds given and route, prescriptions, significant lab abnormalities, going to OR and other pertinent info. @ -Discharge Patient was seen and evaluated, outpatient labs reveal hyperkalemia, repeat labs reveal mild hyperkalemia with elevated BUN and creatinine consistent with prerenal a 5. IV fluids and Lasix were ordered for hyperkalemia. Repeat labs reveal only minimal improvement in the hyperkalemia a I remains unchanged. Additional 1 L bolus was given. At this time patient is stable for discharge home I suspect that his significantly elevated potassium on outpatient labs was a lab error is mildly elevated potassium now which is improving he has no EKG changes he was dehydrated upon arrival but has been appropriately hydrated and is being's charge home. Undiagnosed new problem with uncertain prognosis? @ -No Drug Therapy requiring intensive monitoring for toxicity (Heparin, Nitro, Insulin, Cardizem)? @ -No Were any procedures done? @ -No Diagnosis/symptom? @ -Dehydration, and CAD, hyperkalemia Acute, or Chronic, or Acute on Chronic? @ -default Uncomplicated (without systemic symptoms) or Complicated (systemic symptoms)? @ -default Side effects of treatment? @ -No Exacerbation, Progression, or Severe Exacerbation? @ -No Poses a threat to life or bodily function? How? (Chest pain, USA, CT, pneumonia, PE, COPD, DKA, ARF, appy, cholecystitis, CVA, Diverticulitis, Homicidal, Estella cidal, threat to staff... and all critical care pts) @ -No - Lab Data Result diagrams: 09/19/23 23:33 09/20/23 02:40 Lab Results 09/19/23 09/19/23 09/20/23 Range/Units 23:33 23:33 02:40 WBC 8.9 (3.8-10.6) k/uL RBC 4.10 L (4.30-5.90) m/uL Hgb 12.4 L (13.0-17.5) gm/dL Hct 39.4 (39.0-53.0) % MCV 96.1 (80.0-100.0) fL MCH 30.3 (25.0-35.0) pg MCHC 31.5 (31.0-37.0) g/dL RDW 13.8 (11.5-15.5) % Plt Count 295 (150-450) k/uL MPV 7.4 Neutrophils % 74 % Lymphocytes % 15 % Monocytes % 5 % Eosinophils % 4 % Basophils % 1 % Neutrophils # 6.5 (1.3-7.7) k/uL Lymphocytes # 1.3 (1.0-4.8) k/uL Monocytes # 0.4 (0-1.0) k/uL Eosinophils # 0.4 (0-0.7) k/uL Basophils # 0.1 (0-0.2) k/uL Hypochromasia Slight Sodium 137 139 (137-145) mmol/L Potassium 5.6 H 5.2 H (3.5-5.1) mmol/L Chloride 104 104 (98-107) mmol/L Carbon Dioxide 20 L 24 (22-30) mmol/L Anion Gap 13 11 mmol/L BUN 62 H 63 H (9-20) mg/dL Creatinine 1.60 H 1.57 H (0.66-1.25) mg/dL Est GFR (CKD-EPI)AfAm 49 50 (>60 ml/min/1.73 sqM) Est GFR (CKD-EPI)NonAf 43 44 (>60 ml/min/1.73 sqM) Glucose 203 H 229 H (74-99) mg/dL Calcium 9.1 9.3 (8.4-10.2) mg/dL Magnesium 2.4 H (1.6-2.3) mg/dL Total Bilirubin 0.3 (0.2-1.3) mg/dL AST 20 (17-59) U/L ALT 18 (4-49) U/L Alkaline Phosphatase 126 (38-126) U/L Total Protein 8.1 (6.3-8.2) g/dL Albumin 3.8 (3.5-5.0) g/dL - EKG Data -: EKG Interpreted by Me EKG Comments: EKG interpreted by me, EKG obtained due to hyperkalemia on outpatient labs, EKG obtained at 2323 rate is 70 rhythm is sinus first degree AV block, MN prolonged to 45 QRS stage III QTC [address] elevations or depressions no significant T-wave abnormalities concerning for hyperkalemia. No evidence of ischemia ischemia or infarction. Disposition Clinical Impression: Hyperkalemia Disposition: HOME SELF-CARE Condition: Stable Is patient prescribed a controlled substance at d/c from ED?: No Referrals: Mika Bell DO [Primary Care Provider] - 1-2 days
[2023-09-19] MEDS ORDERED: MORPHINE SULFATE 4 MG/ML SYRINGE IVP STA (23:29)
[2023-09-19 23:45] LABS: Basophils # (A) 0.1 k/uL (0-0.2); Basophils % (A) 1 %; Eosinophils # (A) 0.4 k/uL (0-0.7); Eosinophils % (A) 4 %; HCT 39.4 % (39.0-53.0); HGB 12.4 gm/dL (13.0-17.5); Hypochromasia Slight; Lymphocytes # (A) 1.3 k/uL (1.0-4.8); Lymphocytes % (A) 15 %; MCH 30.3 pg (25.0-35.0); MCHC 31.5 g/dL (31.0-37.0); MCV 96.1 fL (80.0-100.0); Mean Platelet Volume 7.4; Monocytes # (A) 0.4 k/uL (0-1.0); Monocytes % (A) 5 %; Neutrophils # (A) 6.5 k/uL (1.3-7.7); Neutrophils % (A) 74 %; Platelet Count 295 k/uL (150-450); RDW 13.8 % (11.5-15.5); WBC 8.9 k/uL (3.8-10.6)
[2023-09-19 23:53] LABS: ALT 18 U/L (4-49); AST 20 U/L (17-59); African American GFR (CKD) 49 (>60 ml/min/1.73 sqM); Albumin 3.8 g/dL (3.5-5.0); Alkaline Phosphatase 126 U/L (38-126); Anion Gap 13 mmol/L; Blood Urea Nitrogen 62 mg/dL (9-20); Calcium 9.1 mg/dL (8.4-10.2); Carbon Dioxide 20 mmol/L (22-30); Chloride 104 mmol/L (98-107); Glucose 203 mg/dL (74-99); Magnesium 2.4 mg/dL (1.6-2.3); Non-African American GFR(CKD) 43 (>60 ml/min/1.73 sqM); Potassium 5.6 mmol/L (3.5-5.1); Sodium 137 mmol/L (137-145); Total Bilirubin 0.3 mg/dL (0.2-1.3); Total Protein 8.1 g/dL (6.3-8.2)
[2023-09-20] MEDS ORDERED: SODIUM CHLORIDE 0.9% 1,000 ML IV ONE ×2 (00:07→03:24)
[2023-09-20] MEDS ORDERED: FUROSEMIDE 10 MG/ML 4 ML VIAL IV STA (00:08)
[2023-09-20 03:00] LABS: Appearance,Urine Cloudy (Clear); Bacteria,Urine Rare /hpf; Bilirubin,Urine Negative (Negative); Blood,Urine Large (Negative); Budding Yeast,Urine Many /hpf; Color,Urine Colorless; Glucose,Urine (UA) 3+ (Negative); Ketones,Urine Negative (Negative); Leukocyte Esterase,Urine Large (Negative); Nitrite,Urine Negative (Negative); Protein,Urine Negative (Negative); RBC,Urine 181 /hpf (0-5); Squamous Epithelial Cell,Urine 1 /hpf (0-4); Urobilinogen,Urine <2.0 mg/dL (<2.0); WBC,Urine >182 /hpf (0-5)
[2023-09-20 03:03] LABS: African American GFR (CKD) 50 (>60 ml/min/1.73 sqM); Anion Gap 11 mmol/L; Blood Urea Nitrogen 63 mg/dL (9-20); Calcium 9.3 mg/dL (8.4-10.2); Carbon Dioxide 24 mmol/L (22-30); Chloride 104 mmol/L (98-107); Glucose 229 mg/dL (74-99); Non-African American GFR(CKD) 44 (>60 ml/min/1.73 sqM); Potassium 5.2 mmol/L (3.5-5.1); Sodium 139 mmol/L (137-145)
[2023-09-20 03:57] VITALS: BP 162/67; PULSE 61; RESP 16
== END 2023-09-20 04:28 | disposition home or self-care (01) ==
LOC: EC 23:13
DX: E87.5 Hyperkalemia (principal); I44.0 Atrioventricular block, first degree; E11.42 Type 2 diabetes mellitus with diabetic polyneuropathy; E07.9 Disorder of thyroid, unspecified; E78.5 Hyperlipidemia, unspecified; I10 Essential (primary) hypertension; I25.10 Atherosclerotic heart disease of native coronary artery without angina pectoris; I25.2 Old myocardial infarction; K21.9 Gastro-esophageal reflux disease without esophagitis; F32.A Depression, unspecified; F12.90 Cannabis use, unspecified, uncomplicated; Z79.84 Long term (current) use of oral hypoglycemic drugs; Z79.899 Other long term (current) drug therapy; Z79.890 Hormone replacement therapy; Z87.891 Personal history of nicotine dependence; Z79.82 Long term (current) use of aspirin
CPT/HCPCS: 36415 ×2; 93005; 80053; 80048; 83735; 85025; 81001; 99285; 96374; 96375; 96361 ×2; J2270; J1940

== ENCOUNTER 2023-09-24 13:17 | Inpatient (IN) | payer MEDICARE, BC ==
[2023-09-24] MEDS ORDERED: SODIUM CHLORIDE 0.9% 1,000 ML IV STA ×2 (13:39→16:27)
[2023-09-24 13:45] LABS: Glucose,Whole Blood 387 mg/dL (70-110)
[2023-09-24] MEDS ORDERED: MORPHINE SULFATE 2 MG/ML SYRINGE IVP STA (14:13)
[2023-09-24 14:28] LABS: Basophils # (A) 0.1 k/uL (0-0.2); Basophils % (A) 1 %; Eosinophils # (A) 0.1 k/uL (0-0.7); Eosinophils % (A) 1 %; HCT 34.8 % (39.0-53.0); HGB 11.1 gm/dL (13.0-17.5); Hypochromasia Slight; Lymphocytes # (A) 0.8 k/uL (1.0-4.8); Lymphocytes % (A) 8 %; MCH 30.6 pg (25.0-35.0); MCHC 31.8 g/dL (31.0-37.0); MCV 96.1 fL (80.0-100.0); Mean Platelet Volume 7.5; Monocytes # (A) 0.5 k/uL (0-1.0); Monocytes % (A) 5 %; Neutrophils # (A) 8.3 k/uL (1.3-7.7); Neutrophils % (A) 84 %; Platelet Count 301 k/uL (150-450); RBC 3.62 m/uL (4.30-5.90); RDW 13.8 % (11.5-15.5); WBC 9.9 k/uL (3.8-10.6)
[2023-09-24 14:51] LABS: African American GFR (CKD) 36 (>60 ml/min/1.73 sqM); Anion Gap 8 mmol/L; Blood Urea Nitrogen 75 mg/dL (9-20); Calcium 8.6 mg/dL (8.4-10.2); Carbon Dioxide 25 mmol/L (22-30); Chloride 98 mmol/L (98-107); Glucose 377 mg/dL (74-99); Magnesium 2.2 mg/dL (1.6-2.3); Non-African American GFR(CKD) 32 (>60 ml/min/1.73 sqM); Potassium 5.1 mmol/L (3.5-5.1); Sodium 131 mmol/L (137-145)
[2023-09-24] MEDS ORDERED: NALOXONE 0.4 MG/ML 1 ML VIAL IV PRN (16:27)
--- NOTE | 2023-09-24 16:42 | ED ---
General Adult HPI - General Chief complaint: Recheck/Abnormal Lab/Rx Stated complaint: Abnormal labs Time Seen by Provider: 09/24/23 13:29 Source: patient, EMS, RN notes reviewed, old records reviewed Mode of arrival: EMS Limitations: physical limitation - History of Present Illness Initial comments: Patient is a 72-year-old male presents emergency Department after being sent from his nursing facility over concern for possible infection as an ear ther mometer reading read 100F. Also concern for hyperglycemia after treating a hypoglycemic episode. Also had recent hyperkalemia. Patient is on antibiotics for a chronic foot wound. This is over his left foot. No other acute complaints at this time. Patient states he has no symptoms. Presents for further evaluation. - Related Data Home Medications Medication Instructions Recorded Confirmed Aspirin [[place] Aspirin EC] 81 mg PO DAILY@1700 03/13/19 09/24/23 Ferrous Sulfate [Iron (65 MG 325 mg PO DAILY@1700 03/13/19 09/24/23 Elemental)] Isosorbide Mononitrate ER [Imdur] 30 mg PO DAILY@0800 03/13/19 09/24/23 Levothyroxine Sodium [Synthroid] 137 mcg PO DAILY 03/13/19 09/24/23 Pantoprazole Sodium [Protonix] 40 mg PO DAILY@0600 03/13/19 09/24/23 Ammonium Lactate Cream [Lac-Hydrin 1 applic TOPICAL BID PRN 04/13/23 09/24/23 12% Cream] Atorvastatin [Lipitor] 80 mg PO HS 04/13/23 09/24/23 Empagliflozin [Jardiance] 25 mg PO DAILY@0800 04/13/23 09/24/23 Escitalopram [Lexapro] 10 mg PO DAILY@0800 04/13/23 09/24/23 Solifenacin Succinate [Vesicare] 5 mg PO DAILY@0800 04/13/23 09/24/23 ALPRAZolam [Xanax] 0.25 mg PO DAILY PRN 09/24/23 09/24/23 Acetaminophen [Tylenol 8 Hour] 650 mg PO Q4HR PRN 09/24/23 09/24/23 Cefuroxime [Ceftin] 250 mg PO BID@0800,1700 09/24/23 09/24/23 Collagenase [Santyl Ointment] 1 applic TOPICAL DAILY 09/24/23 09/24/23 Furosemide [Lasix] 40 mg PO DAILY@0800 09/24/23 09/24/23 Gabapentin [Neurontin] 400 mg PO HS@2130 09/24/23 09/24/23 Glucerna Shake 1 can PO DAILY@1500 09/24/23 09/24/23 HYDROcodone/APAP 7.5-325MG [[place] 1 tab PO Q6H PRN 09/24/23 09/24/23 7.5-325] INSULIN ASPART (NovoLOG) [NovoLOG 10 unit SQ AC-TID 09/24/23 09/24/23 (formulary)] INSULIN ASPART (NovoLOG) [NovoLOG See Protocol SQ ACHS 09/24/23 09/24/23 (formulary)] Insulin Detemir (Levemir) [Levemir] 20 unit SQ HS@2100 09/24/23 09/24/23 Insulin Detemir (Levemir) [Levemir] 30 unit SQ DAILY@0800 09/24/23 09/24/23 Liquacel 30 ml PO BID@0800,1700 09/24/23 09/24/23 Magnesium Hydroxide [Milk of 7,200 mg PO Q48H PRN 09/24/23 09/24/23 Magnesia Concentrate] Metoprolol Tartrate [Lopressor] 50 mg PO BID@0800,1700 09/24/23 09/24/23 Na Phos,M-B/Na Phos,Di-Ba [Fleet 133 ml RECTAL DAILY PRN 09/24/23 09/24/23 Adult] Nystatin 100,000Unit/gm Cream 1 applic TOPICAL BID 09/24/23 09/24/23 [Mycostatin Cream] amLODIPine [Norvasc] 5 mg PO DAILY@0800 09/24/23 09/24/23 bisacodyL [Dulcolax] 10 mg RECTAL DAILY PRN 09/24/23 09/24/23 metFORMIN HCL [Glucophage] 1,000 mg PO DAILY@1700 09/24/23 09/24/23 Allergies Allergy/AdvReac Type Severity Reaction Status Date / Time No Known Allergies Allergy Verified 09/24/23 18:35 Review of Systems ROS Statement: Those systems with pertinent positive or pertinent negative responses have been documented in the HPI. Review of Systems: CONST: Denies fever EYES: Denies blurry vision ENT: Denies nasal congestion C/V: Denies Chest pain RESP: Denies shortness of breath GI: Denies abdominal pain : Denies dysuria SKIN: Endorses chronic left heel wound MSK: Denies joint pain. NEURO: Denies headache ROS Other: All systems not noted in ROS Statement are negative. Past Medical History Past Medical History: Coronary Artery Disease (CAD), Diabetes Mellitus, GERD/Reflux, Hyperlipidemia, Hypertension, Myocardial Infarction (SD), Thyroid Disorder Additional Past Medical History / Comment(s): neuropathy Last Myocardial Infarction Date:: unknown History of Any Multi-Drug Resistant Organisms: MRSA Date of last positivie culture/infection: 06/14/23 MDRO Source:: Left Foot Past Surgical History: Appendectomy, Coronary Bypass/CABG, Heart Catheterization With Stent Additional Past Surgical History / Comment(s): Sister relays, "He had peripheral artery surgery too." Past Anesthesia/Blood Transfusion Reactions: No Reported Reaction Date of Last Stent Placement:: unknown Past Psychological History: Depression Smoking Status: Former smoker Past Alcohol Use History: Daily Past Drug Use History: Marijuana - Past Family History Father Family Medical History: Congestive Heart Failure (CHF) Mother Additional Family Medical History / Comment(s): of old age. General Exam - General Exam Comments Initial Comments: General: Appears in no acute distress. Afebrile. HEAD: Normal with no signs of head trauma. EYES: PERRLA, EOMI, conjunctiva normal, no discharge. ENT: Hearing grossly intact, normal oropharynx. RESPIRATORY: Clear breath sounds bilaterally. No wheezes, rales, or rhonchi. C/V: Regular rate and rhythm. S1 and S2 auscultated, no edema, peripheral pulses 2+ and intact throughout ABD: Abd is soft, nontender, nondistended EXT: Normal range of motion, no obvious deformity SKIN: Chronic left heel wound that appears to be healing well and maintained. No evidence of cellulitis. No evidence of other acute infection. NEURO: Alert and oriented x 4. Cranial nerves II-XII intact. No focal sensory or strength deficits. Limitations: physical limitation Course Vital Signs 09/24/23 09/24/23 13:24 18:08 Temperature 98.3 F Pulse Rate 67 104 H Respiratory 18 18 Rate Blood Pressure 126/65 158/71 O2 Sat by Pulse 97 96 Oximetry Medical Decision Making - Medical Decision Making Was pt. sent in by a medical professional or institution ([facility], [facility] [employer] [facility], urgent care, hospital, or mcc...) When possible be specific @ -Sent from nursing facility for further evaluation. Did you speak to anyone other than the patient for history (EMS, parent, family, police, friend...)? What history was obtained from this source @ -No Did you review nursing and triage notes (agree or disagree)? Why? @ -I reviewed and agree with nursing and triage notes Were old charts reviewed (outside hosp., previous admission, EMS record, old EKG, old radiological studies, urgent care reports/EKG's, mcc records)? Report findings @ -Charts reviewed. Differential Diagnosis (chest pain, altered mental status, abdominal pain women, abdominal pain men, vaginal bleeding, weakness, fever, dyspnea, syncope, headache, dizziness, GI bleed, back pain, seizure, CVA, palpatations, mental health, musculoskeletal)? @ -Hypoglycemia, electrolyte abnormality, hyperglycemia, DKA, cellulitis, infection. This list is not all inclusive. EKG interpreted by me (3pts min.). @ -As above X-rays interpreted by me (1pt min.). @ -None done CT interpreted by me (1pt min.). @ -None done U/S interpreted by me (1pt. min.). @ -None done What testing was considered but not performed or refused? (CT, X-rays, U/S, labs)? Why? @ -None What meds were considered but not given or refused? Why? @ -None Did you discuss the management of the patient with other professionals (professionals i.e. [facility], [employer], lab, RT, psych nurse, director social service, orthopedic technician, teacher, space officer, caseworker protective services)? Give summary @ -Discussed with Dr. Tyson who accepted the admission. Was smoking cessation discussed for >3mins.? @ -No Was critical care preformed (if so, how long)? @ -No Were there social determinants of health that impacted care today? How? (Homelessness, low income, unemployed, alcoholism, drug addiction, transp ortation, low edu. Level, literacy, decrease access to med. care, residential, rehab)? @ -No Was there de-escalation of care discussed even if they declined (Discuss DNR or withdrawal of care, Hospice)? DNR status @ -No What co-morbidities impacted this encounter? (DM, HTN, Smoking, COPD, CAD, Cancer, CVA, ARF, Chemo, Hep., AIDS, mental health diagnosis, sleep apnea, morbid obesity)? @ -None Was patient admitted / discharged? Hospital course, mention meds given and route, prescriptions, significant lab abnormalities, going to OR and other pertinent info. @ -Based on patient's presentation and physical exam, presents mildly hyperglycemic with chronic foot wound and concern for possible hyperkalemia. We will obtain basic labs, screening EKG. He is on antibiotics at home. Patient in agreement this plan. EKG shows no evidence of hyperkalemia or other acute process. Labs are remarkable for a mild anemia with a hemoglobin of 11.1 which is chronic and stable for the patient. Patient also has what appears to be in acute ROSA with a BUN of 75 and creatinine of 2.05. Baseline creatinine appears to be 1.4. These elevations are all within the last week it appears. Patient is every glycemic without any evidence of anion gap metabolic acidosis. I discussed results of the patient. We will continue with IV fluid hydration and admit the patient for evaluation by nephrology. Patient agreement this plan. I spoke with the admitting physician, Dr. Tyson who accepted the admission. Undiagnosed new problem with uncertain prognosis? @ -No Drug Therapy requiring intensive monitoring for toxicity (Heparin, Nitro, Insulin, Cardizem)? @ -No Were any procedures done? @ -No Diagnosis/symptom? @ -Acute kidney injury Acute, or Chronic, or Acute on Chronic? @ -Acute Uncomplicated (without systemic symptoms) or Complicated (systemic symptoms)? @ -complicated Side effects of treatment? @ -No Exacerbation, Progression, or Severe Exacerbation? @ -No Poses a threat to life or bodily function? How? (Chest pain, USA, SD, pneumonia, PE, COPD, DKA, ARF, appy, cholecystitis, CVA, Diverticulitis, Homicidal, Suicidal, threat to staff... and all critical care pts) @ -Potentially - Lab Data Result diagrams: 09/24/23 14:03 09/24/23 14:03 Lab Results 09/24/23 09/24/2323 Range/Units 13:43 14:03 14:03 WBC 9.9 (3.8-10.6) k/uL RBC 3.62 L (4.30-5.90) m/uL Hgb 11.1 L (13.0-17.5) gm/dL Hct 34.8 L (39.0-53.0) % MCV 96.1 (80.0-100.0) fL MCH 30.6 (25.0-35.0) pg MCHC 31.8 (31.0-37.0) g/dL RDW 13.8 (11.5-15.5) % Plt Count 301 (150-450) k/uL MPV 7.5 Neutrophils % 84 % Lymphocytes % 8 % Monocytes % 5 % Eosinophils % 1 % Basophils % 1 % Neutrophils # 8.3 H (1.3-7.7) k/uL Lymphocytes # 0.8 L (1.0-4.8) k/uL Monocytes # 0.5 (0-1.0) k/uL Eosinophils # 0.1 (0-0.7) k/uL Basophils # 0.1 (0-0.2) k/uL Hypochromasia Slight Sodium 131 L (137-145) mmol/L Potassium 5.1 (3.5-5.1) mmol/L Chloride 98 (98-107) mmol/L Carbon Dioxide 25 (22-30) mmol/L Anion Gap 8 mmol/L BUN 75 H (9-20) mg/dL Creatinine 2.05 H (0.66-1.25) mg/dL Est GFR (CKD-EPI)AfAm 36 (>60 ml/min/1.73 sqM) Est GFR (CKD-EPI)NonAf 32 (>60 ml/min/1.73 sqM) Glucose 377 H (74-99) mg/dL POC Glucose (mg/dL) 387 H (70-110) mg/dL POC Glu Instructor Watch [employer] ID Alex Lugo Calcium 8.6 (8.4-10.2) mg/dL Magnesium 2.2 (1.6-2.3) mg/dL Acetone, Qual Negative (Negative) - EKG Data -: EKG Interpreted by Me EKG Comments: 12-lead Electrocardiogram Interpretation Note EKG was reviewed and interpreted by myself. 12-lead ECG performed at 1358 is interpreted by me as revealing normal sinus rhythm at a rate of 67 beats per minute. [place] is normal. [place] interval is 251 ms, QRS duration is 96 ms, QTc is 455 ms.. There were no ST or T wave abnormalities to suggest myocardial ischemia or injury. R wave progression across the precordium was satisfactory. By my interpretation this EKG is non-diagnostic for acute ischemia. Disposition Clinical Impression: Acute kidney injury Disposition: ADMITTED IP TO THIS HOSP Condition: Stable Time of Disposition: 16:15
[2023-09-24 17:11] LABS: Glucose,Whole Blood 240 mg/dL (70-110)
[2023-09-24 20:57] LABS: Glucose,Whole Blood 157 mg/dL (70-110)
--- NOTE | 2023-09-24 20:57 | US ---
EXAMINATION TYPE: US kidneys/renal and bladder DATE OF EXAM: 09/24/2023 COMPARISON: NONE CLINICAL INDICATION: Male, 72 years old with history of Renal failure; Renal failure EXAM MEASUREMENTS: Right Kidney: 9.7 x 4.6 x 4.2 cm Left Kidney: 10.7 x 5.8 x 5.4 cm Right Kidney: Lower pole limited due to bowel gas Left Kidney: Limited due to bowel gas Bladder: anechoic posterior wall appears slightly thickened Bilateral Jets seen: Yes There is no evidence for hydronephrosis at this point in time. No nephrolithiasis is seen. No lamar s are identified. The urinary bladder is anechoic. Bilateral ureteral jets are seen. IMPRESSION: Limited evaluation no evidence for obstructive uropathy.
[2023-09-24] MEDS: ATORVASTATIN 80 MG TAB PO SCH (21:22)
[2023-09-24] MEDS: GABAPENTIN 400 MG CAP PO SCH (21:22)
[2023-09-24] MEDS: INSULIN DETEMIR (LEVEMIR) 100 UNIT/ML SYR SQ SCH (21:30)
[2023-09-24] MEDS: HYDROcodone/APAP 7.5-325MG 1 EACH TAB PO PRN (21:40)
[2023-09-25] MEDS: HYDROcodone/APAP 7.5-325MG 1 EACH TAB PO PRN ×3 (03:51→22:04)
[2023-09-25] MEDS: PANTOPRAZOLE 40 MG TABLET PO SCH (06:14)
[2023-09-25] MEDS: LEVOTHYROXINE 137 MCG TAB PO SCH (06:14)
[2023-09-25 08:17] LABS: Glucose,Whole Blood 185 mg/dL (70-110)
[2023-09-25] MEDS: ALPRAZolam 0.25 MG TAB PO PRN (09:15)
[2023-09-25] MEDS: ISOSORBIDE MONONITRATE ER 30 MG TAB.ER.24H PO SCH (09:30)
[2023-09-25] MEDS: TROSPIUM CHLORIDE 20 MG TABLET PO SCH (09:30)
[2023-09-25] MEDS: ESCITALOPRAM 10 MG TAB PO SCH (09:30)
[2023-09-25] MEDS: METOPROLOL TARTRATE 50 MG TAB PO SCH ×2 (09:30→17:30)
[2023-09-25] MEDS: INSULIN ASPART (NovoLOG) 100 UNIT/ML VIAL SQ SCH ×3 (09:30→17:26)
[2023-09-25] MEDS: amLODIPine 5 MG TAB PO SCH (09:30)
[2023-09-25] MEDS: INSULIN DETEMIR (LEVEMIR) 100 UNIT/ML SYR SQ SCH ×2 (09:49→21:06)
[2023-09-25] MEDS: CEFDINIR 300 MG CAP PO SCH ×2 (10:16→17:24)
--- NOTE | 2023-09-25 10:54 | P.NPCON ---
History of Present Illness - Reason for Consult acute renal failure, chronic renal failure - History of Present Illness Reason for consultation: Acute kidney injury and chronic kidney disease History of present illness: Patient is a 72-year-old male seen in consultation for acute kidney injury on chronic kidney disease. Patient has chronic kidney disease stage II with baseline creatinine in the range of 1-1.2 in June and July 2023. Patient's creatinine this admission was 1.67 and then up to 2.05 dated 09/24/2023 at 2 PM. Patient comes from an extended care facility due to concern of infection. He was noted to have a fever and also had wounds on his left foot. Ultrasound showed no evidence of hydronephrosis. Patient was on diuretics as well as jardiance which are both held. He did receive fluids on admission. Patient has long-standing history of diabetes. He also has history of coronary artery disease and is status post CABG. He denies hematuria or dysuria. Patient is unsure of the pain medication he takes. I don't see any NSAIDs and his home medication list. Labs from this morning are pending. Afebrile this admission. Blood pressure controlled. On room air. Vital signs are stable. General: No acute distress. HEENT: Head exam is unremarkable. LUNGS: No audible rhonchi or wheezes. HEART: Rate and Rhythm are regular. ABDOMEN: Nontender. EXTREMITITES: Lower extremity wrapped. No edema. Past Medical History Past Medical History: Coronary Artery Disease (CAD), Diabetes Mellitus, GERD/Reflux, Hyperlipidemia, Hypertension, Myocardial Infarction ([place]), Thyroid Disorder Additional Past Medical History / Comment(s): neuropathy Last Myocardial Infarction Date:: unknown History of Any Multi-Drug Resistant Organisms: MRSA Date of last positivie culture/infection: 06/14/23 MDRO Source:: Left Foot Past Surgical History: Appendectomy, Coronary Bypass/CABG, Heart Catheterization With Stent Additional Past Surgical History / Comment(s): Sister relays, "He had peripheral artery surgery too." Past Anesthesia/Blood Transfusion Reactions: No Reported Reaction Date of Last Stent Placement:: unknown Past Psychological History: Depression Smoking Status: Former smoker Past Alcohol Use History: Daily Past Drug Use History: Marijuana - Past Family History Father Family Medical History: Congestive Heart Failure (CHF) Mother Additional Family Medical History / Comment(s): of old age. Medications and Allergies Home Medications Medication Instructions Recorded Confirmed Type Aspirin [[place] Aspirin EC] 81 mg PO DAILY@1700 03/13/19 09/24/23 History Ferrous Sulfate [Iron (65 MG 325 mg PO DAILY@1700 03/13/19 09/24/23 History Elemental)] Isosorbide Mononitrate ER [Imdur] 30 mg PO DAILY@0800 03/13/19 09/24/23 History Levothyroxine Sodium [Synthroid] 137 mcg PO DAILY 03/13/19 09/24/23 History Pantoprazole Sodium [Protonix] 40 mg PO DAILY@0600 03/13/19 09/24/23 History Ammonium Lactate Cream [Lac-Hydrin 1 applic TOPICAL BID PRN 04/13/23 09/24/23 History 12% Cream] Atorvastatin [Lipitor] 80 mg PO HS 04/13/23 09/24/23 History Empagliflozin [Jardiance] 25 mg PO DAILY@0800 04/13/23 09/24/23 History Escitalopram [Lexapro] 10 mg PO DAILY@0800 04/13/23 09/24/23 History Solifenacin Succinate [Vesicare] 5 mg PO DAILY@0800 04/13/23 09/24/23 History ALPRAZolam [Xanax] 0.25 mg PO DAILY PRN 09/24/23 09/24/23 History Acetaminophen [Tylenol 8 Hour] 650 mg PO Q4HR PRN 09/24/23 09/24/23 History Cefuroxime [Ceftin] 250 mg PO BID@0800,1700 09/24/23 09/24/23 History Collagenase [Santyl Ointment] 1 applic TOPICAL DAILY 09/24/23 09/24/23 History Furosemide [Lasix] 40 mg PO DAILY@0800 09/24/23 09/24/23 History Gabapentin [Neurontin] 400 mg PO HS@2130 09/24/23 09/24/23 History Glucerna Shake 1 can PO DAILY@1500 09/24/23 09/24/23 History HYDROcodone/APAP 7.5-325MG [[place] 1 tab PO Q6H PRN 09/24/23 09/24/23 History 7.5-325] INSULIN ASPART (NovoLOG) [NovoLOG 10 unit SQ AC-TID 09/24/23 09/24/23 History (formulary)] INSULIN ASPART (NovoLOG) [NovoLOG See Protocol SQ ACHS 09/24/23 09/24/23 History (formulary)] Insulin Detemir (Levemir) [Levemir] 20 unit SQ HS@2100 09/24/23 09/24/23 History Insulin Detemir (Levemir) [Levemir] 30 unit SQ DAILY@0800 09/24/23 09/24/23 History Liquacel 30 ml PO BID@0800,1700 09/24/23 09/24/23 History Magnesium Hydroxide [Milk of 7,200 mg PO Q48H PRN 09/24/23 09/24/23 History Magnesia Concentrate] Metoprolol Tartrate [Lopressor] 50 mg PO BID@0800,1700 09/24/23 09/24/23 History Na Phos,M-B/Na Phos,Di-Ba [Fleet 133 ml RECTAL DAILY PRN 09/24/23 09/24/23 History Adult] Nystatin 100,000Unit/gm Cream 1 applic TOPICAL BID 09/24/23 09/24/23 History [Mycostatin Cream] amLODIPine [Norvasc] 5 mg PO DAILY@0800 09/24/23 09/24/23 History bisacodyL [Dulcolax] 10 mg RECTAL DAILY PRN 09/24/23 09/24/23 History metFORMIN HCL [Glucophage] 1,000 mg PO DAILY@1700 09/24/23 09/24/23 History Allergies Allergy/AdvReac Type Severity Reaction Status Date / Time No Known Allergies Allergy Verified 09/24/23 18:35 Physical Exam Vitals: Vital Signs Temp Pulse Pulse Resp BP BP Pulse Ox 09/25/23 01:28 98.4 F 69 16 125/69 95 09/24/23 20:00 98.6 F 80 16 125/65 95 09/24/23 18:08 104 H 18 158/71 96 09/24/23 13:24 98.3 F 67 18 126/65 97 Intake and Output 09/24/23 09/25/23 09/25/23 22:59 06:59 14:59 Intake Total 1000 1200 Output Total 100 Balance 1000 1200 -100 Intake: Intake, IV Titration 500 700 Amount Sodium Chloride 0.9% 1, 500 700 000 ml @ 100 mls/hr IV . Q10H STA Rx#:[id number] Oral 500 500 Output: Urine 100 Other: Voiding Method Urinal Urinal Diaper Diaper # Voids 3 6 Weight 77.111 kg Results - Lab Results Most recent lab results Calcium 8.6 mg/dL (8.4-10.2) 09/24/23 14:03 Magnesium 2.2 mg/dL (1.6-2.3) 09/24/23 14:03 09/24/23 14:03 09/24/23 14:03 Assessment and Plan Plan: Assessment: 1. Acute kidney injury secondary to ATN secondary to hypovolemia, diuretics. Creatinine 2.05 on admission. No hydronephrosis noted on kidney ultrasound. 2. Chronic kidney disease stage II with baseline creatinine 1-1.2. Suspect diabetic kidney disease. UA dated 09/20/2023 showed UTI but no proteinuria. 3. Diabetes mellitus. 4. Hypertension with chronic kidney disease. 5. Hypovolemic hyponatremia. Component of hypertonicity from hyperglycemia. Plan: Start normal saline at 50 mL an hour. Continue to hold diuretics. Check UA. Avoid nephrotoxins. Follow-up morning labs. Thank you for the consultation. I will continue to follow the patient with you during his hospital stay.
[2023-09-25 11:05] LABS: Blood Urea Nitrogen 68.4 mg/dL (9.0-27.0); Calcium 9.2 mg/dL (8.7-10.3); Carbon Dioxide 23.2 mmol/L (21.6-31.8); Chloride 101 mmol/L (96-109); Glucose 172 mg/dL (70-110); Potassium 4.9 mmol/L (3.5-5.5); Sodium 136 mmol/L (135-145)
[2023-09-25 11:12] LABS: Basophils # (A) 0.06 X 10*3/uL (0.00-0.10); Basophils % (A) 0.6 %; Eosinophils % (A) 0.9 %; HGB 11.2 g/dL (13.0-17.0); Lymphocytes # (A) 0.78 X 10*3/uL (0.90-5.00); Lymphocytes % (A) 7.2 %; MCH 29.6 pg (27.0-32.0); MCHC 31.1 g/dL (32.0-37.0); MCV 95.2 FL (80.0-97.0); Mean Platelet Volume 9.8 FL (9.5-12.2); Monocytes # (A) 0.84 X 10*3/uL (0.20-1.00); Monocytes % (A) 7.7 %; NRBC Per 100 WBC 0 X 10*3/uL (0.00-0.01); Neutrophils # (A) 9.06 X 10*3/uL (1.80-7.70); Neutrophils % (A) 83.2 %; Platelet Count 309 X 10*3/uL (140-440); RBC 3.78 X 10*6/uL (4.40-5.60); RDW 13.7 % (11.5-14.5); WBC 10.88 X 10*3/uL (4.50-10.00)
[2023-09-25 12:08] LABS: Appearance,Urine Turbid (Clear); Bilirubin,Urine Negative (Negative); Blood,Urine Large (Negative); Color,Urine Red; Glucose,Urine (UA) 4+ (Negative); Ketones,Urine Negative (Negative); Leukocyte Esterase,Urine Large (Negative); Nitrite,Urine Negative (Negative); Protein,Urine 2+ (Negative); RBC,Urine >182 /hpf (0-5); Specific Gravity,Urine 1.017 (1.001-1.035); Urobilinogen,Urine <2.0 mg/dL (<2.0); WBC,Urine >182 /hpf (0-5)
[2023-09-25] MEDS: SODIUM CHLORIDE 0.9% 1,000 ML IV SCH ×2 (12:19→17:25)
--- NOTE | 2023-09-25 12:40 | P.HPIM ---
History of Present Illness H&P Date: 09/25/23 History of present illness; patient is 72-year-old gentleman with past medical h istory significant for hypertension, hypothyroidism, hyperlipidemia, insulin- dependent diabetes mellitus who was sent to the ER from his intermediate facility for concern of possible infection. Patient denies any symptoms. Patient was recently seen in the ER for elevated potassium levels and was evaluated by ER and was given IV fluids and repeat labs were normal so he was sent back to facility. This time nursing staff noticed that on patient's thermometer reading he was having a fever. Patient blood sugars also been very high and there was no complain of any nausea, vomiting or abdominal pain. No complain of increased frequency or burning micturition. No complaint of lethargy or weakness. Patient has been on antibiotics at the facility for chronic left wound. Denies any chest pain or shortness of breath. Patient was sent in for evaluation Initial lab work done in the ER showed WBC 9.9, hemoglobin 11.1, platelet count 301, sodium 139, potassium 5.1, BUN 75, creatinine 2.05, glucose 377, EKG done in the ER showed heart rate of 67, QRS 96, no ST segment elevation, no T-wave inversions seen Patient admitted to medicine service REVIEW OF SYSTEMS: CONSTITUTIONAL: No fever, no malaise, no fatigue. HEENT: No recent visual problems or hearing problems. Denied any sore throat. CARDIOVASCULAR: No chest pain, orthopnea, PND, no palpitations, no syncope. PULMONARY: No shortness of breath, no cough, no hemoptysis. GASTROINTESTINAL: No diarrhea, no nausea, no vomiting, no abdominal pain. NEUROLOGICAL: No headaches, no weakness, no numbness. HEMATOLOGICAL: Denies any bleeding or petechiae. GENITOURINARY: Denies any burning micturition, frequency, or urgency. MUSCULOSKELETAL/RHEUMATOLOGICAL: Denies any joint pain, swelling, or any muscle pain. ENDOCRINE: Denies any polyuria or polydipsia. The rest of the 14-point review of systems is negative. PHYSICAL EXAMINATION: GENERAL: The patient is alert and oriented x3, not in any acute distress. Well developed, well nourished. HEENT: Pupils are round and equally reacting to light. EOMI. No scleral icterus. No conjunctival pallor. Normocephalic, atraumatic. No pharyngeal erythema. No thyromegaly. CARDIOVASCULAR: S1 and S2 present. No murmurs, rubs, or gallops. PULMONARY: Chest is clear to auscultation, no wheezing or crackles. ABDOMEN: Soft, nontender, nondistended, normoactive bowel sounds. No palpable organomegaly. MUSCULOSKELETAL: Left foot wound seen EXTREMITIES: No cyanosis, clubbing, or pedal edema. NEUROLOGICAL: Gross neurological examination did not reveal any focal deficits. SKIN: No rashes. Assessment and plan Acute kidney injury Hyperglycemia Left foot wound insulin-dependent diabetes mellitus Hypertension Hyperlipidemia Monitor vital signs Monitor CBC Monitor CMP Continue telemetry monitoring Avoid nephrotoxic agents Continue IV fluids Ordered ultrasound of kidneys Monitor blood sugar levels, continue self scale insulin Resume home regimen of insulin. Resume home meds Consult nephrology Consult ID for evaluation of left foot wound, and need for antibiotics Labs and medication were reviewed.. Continue same treatment. Continue with symptomatic treatment. Resume home medication. Monitor labs and vitals. DVT and GI prophylaxis. Further recommendations as per clinical course of the patient Dictation was produced using [employer] dictation software. please excuse any grammatical, word or spelling errors. Past Medical History Past Medical History: Coronary Artery Disease (CAD), Diabetes Mellitus, GERD/Reflux, Hyperlipidemia, Hypertension, Myocardial Infarction ([place]), Thyroid Disorder Additional Past Medical History / Comment(s): neuropathy Last Myocardial Infarction Date:: unknown History of Any Multi-Drug Resistant Organisms: MRSA Date of last positivie culture/infection: 06/14/23 MDRO Source:: Left Foot Past Surgical History: Appendectomy, Coronary Bypass/CABG, Heart Catheterization With Stent Additional Past Surgical History / Comment(s): Sister relays, "He had peripheral artery surgery too." Past Anesthesia/Blood Transfusion Reactions: No Reported Reaction Date of Last Stent Placement:: unknown Past Psychological History: Depression Smoking Status: Former smoker Past Alcohol Use History: Daily Past Drug Use History: Marijuana - Past Family History Father Family Medical History: Congestive Heart Failure (CHF) Mother Additional Family Medical History / Comment(s): of old age. Medications and Allergies Home Medications Medication Instructions Recorded Confirmed Type Aspirin [[place] Aspirin EC] 81 mg PO DAILY@0 03/13/19 09/24/23 History Ferrous Sulfate [Iron (65 MG 325 mg PO DAILY@169903/13/19 09/24/23 History Elemental)] Isosorbide Mononitrate ER [Imdur] 30 mg PO DAILY@0800 03/13/19 09/24/23 History Levothyroxine Sodium [Synthroid] 137 mcg PO DAILY 03/13/19 09/24/23 History Pantoprazole Sodium [Protonix] 40 mg PO DAILY@0600 03/13/19 09/24/23 History Ammonium Lactate Cream [Lac-Hydrin 1 applic TOPICAL BID PRN 04/13/23 09/24/23 History 12% Cream] Atorvastatin [Lipitor] 80 mg PO HS 04/13/23 09/24/23 History Empagliflozin [Jardiance] 25 mg PO DAILY@0800 04/13/23 09/24/23 History Escitalopram [Lexapro] 10 mg PO DAILY@0800 04/13/23 09/24/23 History Solifenacin Succinate [Vesicare] 5 mg PO DAILY@0800 04/13/23 09/24/23 History ALPRAZolam [Xanax] 0.25 mg PO DAILY PRN 09/24/23 09/24/23 History Acetaminophen [Tylenol 8 Hour] 650 mg PO Q4HR PRN 09/24/23 09/24/23 History Cefuroxime [Ceftin] 250 mg PO BID@0800,1700 09/24/23 09/24/23 History Collagenase [Santyl Ointment] 1 applic TOPICAL DAILY 09/24/23 09/24/23 History Furosemide [Lasix] 40 mg PO DAILY@0800 09/24/23 09/24/23 History Gabapentin [Neurontin] 400 mg PO HS@2130 09/24/23 09/24/23 History Glucerna Shake 1 can PO DAILY@1500 09/24/23 09/24/23 History HYDROcodone/APAP 7.5-325MG [[place] 1 tab PO Q6H PRN 09/24/23 09/24/23 History 7.5-325] INSULIN ASPART (NovoLOG) [NovoLOG 10 unit SQ AC-TID 09/24/23 09/24/23 History (formulary)] INSULIN ASPART (NovoLOG) [NovoLOG See Protocol SQ ACHS 09/24/23 09/24/23 History (formulary)] Insulin Detemir (Levemir) [Levemir] 20 unit SQ HS@2100 09/24/23 09/24/23 History Insulin Detemir (Levemir) [Levemir] 30 unit SQ DAILY@0800 09/24/23 09/24/23 His tory Liquacel 30 ml PO BID@0800,1700 09/24/23 09/24/23 History Magnesium Hydroxide [Milk of 7,200 mg PO Q48H PRN 09/24/23 09/24/23 History Magnesia Concentrate] Metoprolol Tartrate [Lopressor] 50 mg PO BID@0800,1700 09/24/23 09/24/23 History Na Phos,M-B/Na Phos,Di-Ba [Fleet 133 ml RECTAL DAILY PRN 09/24/23 09/24/23 History Adult] Nystatin 100,000Unit/gm Cream 1 applic TOPICAL BID 09/24/23 09/24/23 History [Mycostatin Cream] amLODIPine [Norvasc] 5 mg PO DAILY@0800 09/24/23 09/24/23 History bisacodyL [Dulcolax] 10 mg RECTAL DAILY PRN 09/24/23 09/24/23 History metFORMIN HCL [Glucophage] 1,000 mg PO DAILY@1700 09/24/23 09/24/23 History Allergies Allergy/AdvReac Type Severity Reaction Status Date / Time No Known Allergies Allergy Verified 09/24/23 18:35 Physical Exam Vitals: Vital Signs Temp Pulse Pulse Resp BP BP Pulse Ox 09/25/23 01:28 98.4 F 69 16 125/69 95 09/24/23 20:00 98.6 F 80 16 125/65 95 09/24/23 18:08 104 H 18 158/71 96 09/24/23 13:24 98.3 F 67 18 126/65 97 Intake and Output 09/24/23 09/25/23 09/25/23 22:59 06:59 14:59 Intake Total 1000 1200 Balance 1000 1200 Intake: Intake, IV Titration 500 700 Amount Sodium Chloride 0.9% 1, 500 700 000 ml @ 100 mls/hr IV . Q10H STA Rx#:[id number] Oral 500 500 Other: Voiding Method Urinal Urinal Diaper Diaper # Voids 3 6 Weight 77.111 kg Results CBC & Chem 7: 09/25/23 08:17 09/25/23 08:17 Labs: Abnormal Lab Results - Last 24 Hours (Table) 09/24/23 09/24/23 09/24/23 Range/Units 13:43 14:03 14:03 RBC 3.62 L (4.30-5.90) m/uL Hgb 11.1 L (13.0-17.5) gm/dL Hct 34.8 L (39.0-53.0) % Neutrophils # 8.3 H (1.3-7.7) k/uL Lymphocytes # 0.8 L (1.0-4.8) k/uL Sodium 131 L (137-145) mmol/L BUN 75 H (9-20) mg/dL Creatinine 2.05 H (0.66-1.25) mg/dL Glucose 377 H (74-99) mg/dL POC Glucose (mg/dL) 387 H (70-110) mg/dL 09/24/23 09/24/23 09/25/23 Range/Units 17:09 20:55 08:16 RBC (4.30-5.90) m/uL Hgb (13.0-17.5) gm/dL Hct (39.0-53.0) % Neutrophils # (1.3-7.7) k/uL Lymphocytes # (1.0-4.8) k/uL Sodium (137-145) mmol/L BUN (9-20) mg/dL Creatinine (0.66-1.25) mg/dL Glucose (74-99) mg/dL POC Glucose (mg/dL) 240 H 157 H 185 H (70-110) mg/dL
[2023-09-25 13:39] LABS: Glucose,Whole Blood 114 mg/dL (70-110)
[2023-09-25 16:15] LABS: Glucose,Whole Blood 84 mg/dL (70-110)
[2023-09-25] MEDS: ACETAMINOPHEN TAB 325 MG TAB PO PRN (16:21)
[2023-09-25 16:30] LABS: Glucose,Whole Blood 87 mg/dL (70-110)
[2023-09-25] MEDS: ASPIRIN 81 MG PO SCH (17:30)
--- NOTE | 2023-09-25 17:30 | XR ---
EXAMINATION TYPE: XR chest 1V portable DATE OF EXAM: 09/25/2023 5:12 PM CLINICAL INDICATION:Male, 72 years old with history of desat; COMPARISON: Chest radiographs from 06/06/2023. TECHNIQUE: XR chest 1V portable Frontal view of the chest. FINDINGS: Lungs/Pleura: Prominent interstitial lung markings are seen scattered throughout the lungs with rachele ening of the diaphragm and increased lucency of the lung apices. No evidence of focal consolidation, pneumothorax or pleural effusion. Pulmonary vascularity: Unremarkable. Heart/mediastinum: Cardiomediastinal silhouette is prominent in size. Musculoskeletal: No acute osseous pathology. Midline sternotomy wires are noted. IMPRESSION: 1. There may be mild pulmonary vascular congestion versus low lung volumes and atelectasis correlate with serum BNP. 2. COPD changes.
[2023-09-25] MEDS: FERROUS SULFATE 325 MG TAB PO SCH (17:31)
[2023-09-25] MEDS: PIPERACILLIN-TAZOBACTAM 3.375 GM in SODIUM CHLORIDE 0.9% 100 ML IVPB SCH (18:16)
[2023-09-25 20:10] LABS: Glucose,Whole Blood 225 mg/dL (70-110)
[2023-09-25] MEDS: ATORVASTATIN 80 MG TAB PO SCH (21:06)
[2023-09-25] MEDS: GABAPENTIN 400 MG CAP PO SCH (21:06)
[2023-09-26] MEDS: PIPERACILLIN-TAZOBACTAM 3.375 GM in SODIUM CHLORIDE 0.9% 100 ML IVPB SCH ×2 (01:47→11:41)
[2023-09-26] MEDS: ACETAMINOPHEN TAB 325 MG TAB PO PRN ×2 (01:55→21:13)
[2023-09-26 06:10] LABS: Glucose,Whole Blood 43 mg/dL (70-110)
[2023-09-26 06:31] LABS: Glucose,Whole Blood 33 mg/dL (70-110)
[2023-09-26] MEDS: DEXTROSE 50% SYRINGE 50 ML IVP PRN ×2 (06:34→06:49)
[2023-09-26] MEDS ORDERED: DEXTROSE 50% SYRINGE 50 ML IVP PRN (06:42)
[2023-09-26 06:48] LABS: Glucose,Whole Blood 59 mg/dL (70-110)
[2023-09-26] MEDS: INSULIN ASPART (NovoLOG) 100 UNIT/ML VIAL SQ SCH ×5 (06:55→21:14)
[2023-09-26] MEDS: PANTOPRAZOLE 40 MG TABLET PO SCH (06:55)
[2023-09-26] MEDS: LEVOTHYROXINE 137 MCG TAB PO SCH (06:55)
[2023-09-26] MEDS: SODIUM CHLORIDE 0.9% 1,000 ML IV SCH ×2 (06:59)
[2023-09-26 07:00] LABS: Glucose,Whole Blood 191 mg/dL (70-110)
[2023-09-26 08:18] LABS: Glucose,Whole Blood 237 mg/dL (70-110)
--- NOTE | 2023-09-26 08:37 | P.CONS ---
History of Present Illness - Reason for Consult Consult date: 09/25/23 Chronic left heel wound evaluate for infection Requesting physician: Adi Harris - Chief Complaint Fever concerning for infection x one day - History of Present Illness Patient is a 72-year-old male with a past medical history significant for diabetes mellitus hypertension hyperlipidemia [place] coronary artery disease shelter resident patient has been sent to the ER for evaluation of possible infection at the patient was noticed to have a fever of 100 F at the local shelter patient also concern for hypoglycemia patient did have a chronic wound to the left heel area currently being treated at the shelter patient on presentation to the hospital was afebrile however he did spike a fever of 102.7 F patient was tachycardic not hypotensive or hypoxic currently on 2 L nasal cannula oxygen patient did have white count of 10.88 with a left shift BUN /creatinine has been mildly elevated did have a positive UA COVID testing was negative patient did have a chest x-ray mild pulmonary vascular congestion and atelectasis COPD changes abdominal bladder ultrasound limited evaluation evidence for obstructive uropathy, patient was initially started on cefdinir subsequently switched over to Zosyn infectious disease was consulted for further management of antibiotic therapy most information has been obtained from review the chart as patient is an elevated good historian patient denies having any headache or chest pain shortness of breath or cough no abdominal pain denies significant pain to the left heel wound area Review of Systems Positive points has been mentioned in HPI complete review could not be obtained because of his underlying mental status Past Medical History Past Medical History: Coronary Artery Disease (CAD), Diabetes Mellitus, GERD/Reflux, Hyperlipidemia, Hypertension, Myocardial Infarction (ME), Thyroid Disorder Additional Past Medical History / Comment(s): neuropathy Last Myocardial Infarction Date:: unknown History of Any Multi-Drug Resistant Organisms: MRSA Year Discovered:: 06/14/23 MDRO Source:: Left Foot Past Surgical History: Appendectomy, Coronary Bypass/CABG, Heart Catheterization With Stent Additional Past Surgical History / Comment(s): Sister relays, "He had peripheral artery surgery too." Past Anesthesia/Blood Transfusion Reactions: No Reported Reaction Date of Last Stent Placement:: unknown Past Psychological History: Depression Smoking Status: Former smoker Past Alcohol Use History: Daily Past Drug Use History: Marijuana - Past Family History Father Family Medical History: Congestive Heart Failure (CHF) Mother Additional Family Medical History / Comment(s): of old age. Medications and Allergies Home Medications Medication Instructions Recorded Confirmed Type Aspirin [[place] Aspirin EC] 81 mg PO DAILY@1700 03/13/19 09/24/23 History Ferrous Sulfate [Iron (65 MG 325 mg PO DAILY@1700 03/13/19 09/24/23 History Elemental)] Isosorbide Mononitrate ER [Imdur] 30 mg PO DAILY@0800 03/13/19 09/24/23 History Levothyroxine Sodium [Synthroid] 137 mcg PO DAILY 03/13/19 09/24/23 History Pantoprazole Sodium [Protonix] 40 mg PO DAILY@0600 03/13/19 09/24/23 History Ammonium Lactate Cream [Lac-Hydrin 1 applic TOPICAL BID PRN 04/13/23 09/24/23 History 12% Cream] Atorvastatin [Lipitor] 80 mg PO HS 04/13/23 09/24/23 History Empagliflozin [Jardiance] 25 mg PO DAILY@0800 04/13/23 09/24/23 History Escitalopram [Lexapro] 10 mg PO DAILY@0800 04/13/23 09/24/23 History Solifenacin Succinate [Vesicare] 5 mg PO DAILY@0800 04/13/23 09/24/23 History Acetaminophen [Tylenol 8 Hour] 650 mg PO Q4HR PRN 09/24/23 09/24/23 History Collagenase [Santyl Ointment] 1 applic TOPICAL DAILY 09/24/23 09/24/23 History Glucerna Shake 1 can PO DAILY@1500 09/24/23 09/24/23 History Insulin Detemir (Levemir) [Levemir] 20 unit SQ HS@2100 09/24/23 09/24/23 History Liquacel 30 ml PO BID@0800,1700 09/24/23 09/24/23 History Magnesium Hydroxide [Milk of 7,200 mg PO Q48H PRN 09/24/23 09/24/23 History Magnesia Concentrate] Metoprolol Tartrate [Lopressor] 50 mg PO BID@0800,1700 09/24/23 09/24/23 History Na Phos,M-B/Na Phos,Di-Ba [Fleet 133 ml RECTAL DAILY PRN 09/24/23 09/24/23 History Adult] Nystatin 100,000Unit/gm Cream 1 applic TOPICAL BID 09/24/23 09/24/23 History [Mycostatin Cream] bisacodyL [Dulcolax] 10 mg RECTAL DAILY PRN 09/24/23 09/24/23 History metFORMIN HCL [Glucophage] 1,000 mg PO DAILY@1700 09/24/23 09/24/23 History ALPRAZolam [Xanax] 0.25 mg PO DAILY PRN #3 tab 10/05/23 Rx Famotidine [Pepcid] 20 mg PO DAILY tab 10/05/23 Rx Fluconazole [Diflucan] 100 mg PO DAILY 4 Days #4 tab 10/05/23 Rx Gabapentin [Neurontin] 400 mg PO HS@2130 #2 cap 10/05/23 Rx HYDROcodone/APAP 7.5-325MG [[employer] 1 tab PO Q6H PRN #4 tab 10/05/23 Rx 7.5-325] Heparin Sodium,Porcine (1 ml) 5,000 unit SQ Q12HR each 10/05/23 Rx [Heparin Sodium] INSULIN ASPART (NovoLOG) [NovoLOG 0 unit SQ ACHS each 10/05/23 Rx (formulary)] INSULIN ASPART (NovoLOG) [NovoLOG 3 unit SQ AC-TID each 10/05/23 Rx (formulary)] Piperacillin-Tazobactam [Zosyn] 3.375 gm IVPB Q8HR 35 Days #105 10/05/23 Rx each Sodium Bicarbonate Tab 650 mg PO BID tab 10/05/23 Rx amLODIPine [Norvasc] 5 mg PO BID tab 10/05/23 Rx Allergies Allergy/AdvReac Type Severity Reaction Status Date / Time No Known Allergies Allergy Verified 09/24/23 18:35 Physical Exam Vitals: Vital Signs Temp Pulse Pulse Resp BP BP Pulse Ox 09/25/23 01:28 98.4 F 69 16 125/69 95 09/24/23 20:00 98.6 F 80 16 125/65 95 09/24/23 18:08 104 H 18 158/71 96 09/24/23 13:24 98.3 F 67 18 126/65 97 Intake and Output 09/24/23 09/25/23 09/25/23 22:59 06:59 14:59 Intake Total 1000 1200 Output Total 100 Balance 1000 1200 -100 Intake: Intake, IV Titration 500 700 Amount Sodium Chloride 0.9% 1, 500 700 000 ml @ 100 mls/hr IV . Q10H STA Rx#:[id number] Oral 500 500 Output: Urine 100 Other: Voiding Method Urinal Urinal Diaper Diaper # Voids 3 6 Weight 77.111 kg GENERAL DESCRIPTION: Elderly male lying in bed, no distress. No tachypnea or accessory muscle of respiration use. HEENT: Shows Pallor , no scleral icterus. Oral mucous membrane is dry. No pharyngeal erythema or thrush NECK: Trachea central, no thyromegaly. LUNGS: Unlabored breathing. Clear to auscultation anteriorly. No wheeze or crackle. HEART: S1, S2, regular rate and rhythm. No loud murmur ABDOMEN: Soft, no tenderness , guarding or rigidity, no organomegaly EXTREMITIES: Left heel wound with some slough tissue minimal swelling no s ignificant redness or drainage SKIN: No rash, no masses palpable. NEUROLOGICAL: The patient is awake, orientation could not be determined, mood and affect is okay. Results CBC & Chem 7: 10/05/23 06:33 10/05/23 06:33 Labs: Abnormal Lab Results - Last 24 Hours (Table) 09/24/23 09/24/23 09/24/23 Range/Units 13:43 14:03 14:03 RBC 3.62 L (4.30-5.90) m/uL Hgb 11.1 L (13.0-17.5) gm/dL Hct 34.8 L (39.0-53.0) % Neutrophils # 8.3 H (1.3-7.7) k/uL Lymphocytes # 0.8 L (1.0-4.8) k/uL Sodium 131 L (137-145) mmol/L BUN 75 H (9-20) mg/dL Creatinine 2.05 H (0.66-1.25) mg/dL Glucose 377 H (74-99) mg/dL POC Glucose (mg/dL) 387 H (70-110) mg/dL 09/24/23 09/24/23 09/25/23 Range/Units 17:09 20:55 08:16 RBC (4.30-5.90) m/uL Hgb (13.0-17.5) gm/dL Hct (39.0-53.0) % Neutrophils # (1.3-7.7) k/uL Lymphocytes # (1.0-4.8) k/uL Sodium (137-145) mmol/L BUN (9-20) mg/dL Creatinine (0.66-1.25) mg/dL Glucose (74-99) mg/dL POC Glucose (mg/dL) 240 H 157 H 185 H (70-110) mg/dL Assessment and Plan (1) Sepsis Current Visit: Yes Status: Acute Code(s): A41.9 - SEPSIS, UNSPECIFIED O RGANISM SNOMED Code(s): 21696676 (2) Pressure ulcer of left heel, stage 3 Current Visit: Yes Status: Acute Code(s): L89.623 - PRESSURE ULCER OF LEFT HEEL, STAGE 3 SNOMED Code(s): 31747835978015 (3) Urinary tract infection Current Visit: No Status: Acute Code(s): N39.0 - URINARY TRACT INFECTION, SITE NOT SPECIFIED SNOMED Code(s): 10613177 Plan: 1patient with an episode of sepsis in this patient who did have a fever tachycardia mild elevated white count source is likely urinary patient did have significantly positive UA and likely from enteric gram-negative pathogen, patient chest x-ray with mostly pulmonary vascular congestion no significant respiratory symptoms to be suspicious for pneumonia. 2patient with a chronic nonhealing wound to the left heel area with some slough tissue however no significant surrounding redness clinic suspicion is low for wound infection and cellulitis. 3we will obtain local wound culture and check x-ray of the left heel area 4Zosyn 3.375 g every 8 hours should provide adequate antibiotics coverage while waiting for the work-up to be completed 5local wound care to the left heel with Medihoney followed by moist dressing and keep the area of the pressure We will follow on clinical condition and cultures to further adjust medication if needed Thank you for this consultation we will follow the patient along with you Dictation was produced using [employer] dictation software. please excuse any grammatical, word or spelling errors. Time with Patient: Greater than 30
[2023-09-26] MEDS: ISOSORBIDE MONONITRATE ER 30 MG TAB.ER.24H PO SCH (09:22)
[2023-09-26] MEDS: INSULIN DETEMIR (LEVEMIR) 100 UNIT/ML SYR SQ SCH ×3 (09:22→21:28)
[2023-09-26] MEDS: ESCITALOPRAM 10 MG TAB PO SCH (09:22)
[2023-09-26] MEDS: amLODIPine 5 MG TAB PO SCH (09:22)
[2023-09-26] MEDS: TROSPIUM CHLORIDE 20 MG TABLET PO SCH (09:22)
[2023-09-26] MEDS: HYDROcodone/APAP 7.5-325MG 1 EACH TAB PO PRN ×2 (09:22→17:19)
[2023-09-26] MEDS: METOPROLOL TARTRATE 50 MG TAB PO SCH ×2 (09:22→17:19)
[2023-09-26] MEDS ORDERED: FUROSEMIDE 10 MG/ML 4 ML VIAL IV STA (11:02)
[2023-09-26 11:03] LABS: HGB 10.4 g/dL (13.0-17.0); MCH 29.3 pg (27.0-32.0); MCHC 30.6 g/dL (32.0-37.0); MCV 95.8 FL (80.0-97.0); Mean Platelet Volume 10.1 FL (9.5-12.2); NRBC Per 100 WBC 0 X 10*3/uL (0.00-0.01); Platelet Count 296 X 10*3/uL (140-440); RBC 3.55 X 10*6/uL (4.40-5.60); RDW 13.4 % (11.5-14.5); WBC 10.82 X 10*3/uL (4.50-10.00)
--- NOTE | 2023-09-26 11:03 | P.PN ---
Subjective Patient is seen in follow-up for acute kidney injury on chronic kidney disease. Has Romeo catheter. Nonoliguric. On IV fluids. Oral intake is good. Vital signs are stable. General: No acute distress. HEENT: Head exam is unremarkable. On nasal cannula. LUNGS: No audible rhonchi or wheezes. HEART: Rate and Rhythm are regular. ABDOMEN: Nontender. EXTREMITITES: 1+ edema. Objective - Vital Signs Vital signs: Vital Signs Temp 98.4 F 09/26/23 09:13 Pulse 87 09/26/23 09:13 Resp 20 09/26/23 09:13 BP 169/61 09/26/23 09:13 Pulse Ox 99 09/26/23 09:13 FiO2 Intake & Output 09/25/23 09/26/23 09/26/23 18:59 06:59 18:59 Intake Total 800 Output Total 800 900 Balance 0 -900 Intake: Intake, IV Titration 300 Amount Sodium Chloride 0.9% 1, 300 000 ml @ 100 mls/hr IV . Q10H STA Rx#:[id number] Oral 500 Output: Urine 800 900 Other: Voiding Method Urinal Indwelling Catheter Diaper - Labs CBC & Chem 7: 09/25/23 08:17 09/25/23 08:17 Labs: Abnormal Lab Results - Last 24 Hours (Table) 09/25/23 09/25/23 09/25/23 Range/Units 08:17 08:17 08:17 WBC 10.88 H (4.50-10.00) X 10*3/uL RBC 3.78 L (4.40-5.60) X 10*6/uL Hgb 11.2 L (13.0-17.0) g/dL Hct 36.0 L (39.6-50.0) % MCHC 31.1 L (32.0-37.0) g/dL Neutrophils # 9.06 H (1.80-7.70) X 10*3/uL Lymphocytes # 0.78 L (0.90-5.00) X 10*3/uL BUN 68.4 H (9.0-27.0) mg/dL Creatinine 1.9 H (0.6-1.5) mg/dL Est GFR (CKD-EPI) 37 L (>=60) BUN/Creatinine Ratio 36.00 H (12.00-20.00) Ratio Glucose 172 H (70-110) mg/dL POC Glucose (mg/dL) (70-110) mg/dL Magnesium 2.5 H (1.5-2.4) mg/dL Urine Protein (Negative) Urine Glucose (UA) (Negative) Urine Blood (Negative) Ur Leukocyte Esterase (Negative) Urine RBC (0-5) /hpf Urine WBC (0-5) /hpf Urine WBC Clumps (None) /hpf 09/25/23 09/25/23 09/25/23 Range/Units 11:56 13:37 20:08 WBC (4.50-10.00) X 10*3/uL RBC (4.40-5.60) X 10*6/uL Hgb (13.0-17.0) g/dL Hct (39.6-50.0) % MCHC (32.0-37.0) g/dL Neutrophils # (1.80-7.70) X 10*3/uL Lymphocytes # (0.90-5.00) X 10*3/uL BUN (9.0-27.0) mg/dL Creatinine (0.6-1.5) mg/dL Est GFR (CKD-EPI) (>=60) BUN/Creatinine Ratio (12.00-20.00) Ratio Glucose (70-110) mg/dL POC Glucose (mg/dL) 114 H 225 H (70-110) mg/dL Magnesium (1.5-2.4) mg/dL Urine Protein 2+ H (Negative) Urine Glucose (UA) 4+ H (Negative) Urine Blood Large H (Negative) Ur Leukocyte Esterase Large H (Negative) Urine RBC >182 H (0-5) /hpf Urine WBC >182 H (0-5) /hpf Urine WBC Clumps Many H (None) /hpf 09/26/23 09/26/23 09/26/23 Range/Units 06:09 06:29 06:47 WBC (4.50-10.00) X 10*3/uL RBC (4.40-5.60) X 10*6/uL Hgb (13.0-17.0) g/dL Hct (39.6-50.0) % MCHC (32.0-37.0) g/dL Neutrophils # (1.80-7.70) X 10*3/uL Lymphocytes # (0.90-5.00) X 10*3/uL BUN (9.0-27.0) mg/dL Creatinine (0.6-1.5) mg/dL Est GFR (CKD-EPI) (>=60) BUN/Creatinine Ratio (12.00-20.00) Ratio Glucose (70-110) mg/dL POC Glucose (mg/dL) 43 L 33 L 59 L (70-110) mg/dL Magnesium (1.5-2.4) mg/dL Urine Protein (Negative) Urine Glucose (UA) (Negative) Urine Blood (Negative) Ur Leukocyte Esterase (Negative) Urine RBC (0-5) /hpf Urine WBC (0-5) /hpf Urine WBC Clumps (None) /hpf 09/26/23 09/26/23 Range/Units 06:57 08:15 WBC (4.50-10.00) X 10*3/uL RBC (4.40-5.60) X 10*6/uL Hgb (13.0-17.0) g/dL Hct (39.6-50.0) % MCHC (32.0-37.0) g/dL Neutrophils # (1.80-7.70) X 10*3/uL Lymphocytes # (0.90-5.00) X 10*3/uL BUN (9.0-27.0) mg/dL Creatinine (0.6-1.5) mg/dL Est GFR (CKD-EPI) (>=60) BUN/Creatinine Ratio (12.00-20.00) Ratio Glucose (70-110) mg/dL POC Glucose (mg/dL) 191 H 237 H (70-110) mg/dL Magnesium (1.5-2.4) mg/dL Urine Protein (Negative) Urine Glucose (UA) (Negative) Urine Blood (Negative) Ur Leukocyte Esterase (Negative) Urine RBC (0-5) /hpf Urine WBC (0-5) /hpf Urine WBC Clumps (None) /hpf Assessment and Plan Plan: Assessment: 1. Acute kidney injury secondary to ATN secondary to severe sepsis, hypovolemia, diuretics. Creatinine 2.05 on admission - 1.9 yesterday. No hydronephrosis noted on kidney ultrasound. 2. Chronic kidney disease stage II with baseline creatinine 1-1.2. Suspect diabetic kidney disease. UA dated 09/20/2023 showed UTI but no proteinuria. 3. Diabetes mellitus. 4. Hypertension with chronic kidney disease. 5. Hypovolemic hyponatremia. Component of hypertonicity from hyperglycemia. Improved. Now slightly hypervolemic or lower extremity edema. 6. Severe sepsis secondary to UTI. Also has a nonhealing left foot wound. ID following. Plan: Hep-Lock IV fluids. Lasix 40 mg IV once today. Avoid nephrotoxins. Follow-up morning labs.
[2023-09-26 11:14] LABS: Magnesium 2.3 mg/dL (1.5-2.4)
[2023-09-26 11:33] LABS: Glucose,Whole Blood 316 mg/dL (70-110)
--- NOTE | 2023-09-26 11:51 | XR ---
EXAMINATION TYPE: XR foot complete LT DATE OF EXAM: 09/26/2023 COMPARISON: Bone scan 06/12/2023 HISTORY: Wound not heal TECHNIQUE: Three views are submitted. FINDINGS: The osseous structures are intact. There is no acute fracture or dislocation. Diffuse osteopenia. Vascular calcifications. Soft tissue edema posteriorly with a suspected ulceration near the posterior margin of the calcaneus. Arthropathy of the ankle mortise. There is a first MTP joint arthropathy. IMPRESSION: 1. Soft tissue edema with suspected ulceration posterior to the calcaneus. There is an area of demine ralization involving the posterior margin of the calcaneus and corresponds to the triple phase bone s can abnormality suspicious for osteomyelitis.
[2023-09-26 11:57] LABS: ALT 34 U/L (10-49); AST 128 U/L (14-35); Albumin 3.5 g/dL (3.8-4.9); Albumin/Globulin Ratio 0.81 Ratio (1.60-3.17); Alkaline Phosphatase 92 U/L (41-126); BUN/Creat Ratio 37.18 Ratio (12.00-20.00); Blood Urea Nitrogen 63.2 mg/dL (9.0-27.0); Calcium 9.1 mg/dL (8.7-10.3); Carbon Dioxide 22.4 mmol/L (21.6-31.8); Chloride 98 mmol/L (96-109); Globulin 4.3 g/dL (1.6-3.3); Glucose 35 mg/dL (70-110); Potassium 4.3 mmol/L (3.5-5.5); Sodium 133 mmol/L (135-145); Total Bilirubin 0.3 mg/dL (0.3-1.2); Total Protein 7.8 g/dL (6.2-8.2)
[2023-09-26 13:23] LABS: Glucose,Whole Blood 334 mg/dL (70-110)
[2023-09-26] MEDS: MEROPENEM 1 GM in SODIUM CHLORIDE 0.9% 100 ML IVPB SCH ×2 (15:54→21:19)
[2023-09-26 16:15] LABS: Glucose,Whole Blood 259 mg/dL (70-110)
--- NOTE | 2023-09-26 16:26 | P.PN ---
Subjective Progress Note Date: 09/26/23 Principal diagnosis: Reason for follow-up is fever and bacteremia Patient is a 72-year-old male with a past medical history significant for diabetes mellitus hypertension hyperlipidemia [place] coronary artery disease alf resident patient has been sent to the ER for evaluation of possible infection at the patient was noticed to have a fever of 100 F at the local alf, patient did have a positive UA also noticed to have a positive blood culture with ESBL E. coli On today's evaluation that is09/26/2023, the patient denies any fever or any chills, the patient is breathing comfortably on 3 L nasal cannula supplemental oxygen, patient denies chest pain shortness of breath, the patient denies cough or sputum production, patient denies Abdominal pain, no nausea/vomiting or diarrhea. Patient did have white count of 10.82, creatinine 1.7 Objective - Vital Signs Vital signs: Vital Signs Temp 98.4 F 09/26/23 09:13 Pulse 60 09/26/23 11:29 Resp 20 09/26/23 11:29 BP 106/69 09/26/23 11:29 Pulse Ox 99 09/26/23 11:29 FiO2 Intake & Output 09/25/23 09/26/23 09/26/23 18:59 06:59 18:59 Intake Total 800 Output Total 800 900 Balance 0 -900 Intake: Intake, IV Titration 300 Amount Sodium Chloride 0.9% 1, 300 000 ml @ 100 mls/hr IV . Q10H STA Rx#:[id number] Oral 500 Output: Urine 800 900 Other: Voiding Method Urinal Indwelling Catheter Diaper - Exam GENERAL DESCRIPTION: An elderly male up in bed in no distress RESPIRATORY SYSTEM: Unlabored breathing , clear to auscultation anteriorly HEART: S1 S2 regular rate and rhythm , ABDOMEN: Soft , no tenderness EXTREMITIES: Left heel wound is currently dressed - Labs CBC & Chem 7: 09/26/23 06:22 09/26/23 06:22 Labs: Abnormal Lab Results - Last 24 Hours (Table) 09/25/23 09/25/23 09/25/23 Range/Units 08:17 13:37 20:08 WBC (4.50-10.00) X 10*3/uL RBC (4.40-5.60) X 10*6/uL Hgb (13.0-17.0) g/dL Hct (39.6-50.0) % MCHC (32.0-37.0) g/dL Sodium (135-145) mmol/L Anion Gap (4.00-12.00) mmol/L BUN (9.0-27.0) mg/dL Creatinine (0.6-1.5) mg/dL Est GFR (CKD-EPI) (>=60) BUN/Creatinine Ratio (12.00-20.00) Ratio Glucose (70-110) mg/dL POC Glucose (mg/dL) 114 H 225 H (70-110) mg/dL Magnesium 2.5 H (1.5-2.4) mg/dL AST (14-35) U/L Albumin (3.8-4.9) g/dL Globulin (1.6-3.3) g/dL Albumin/Globulin Ratio (1.60-3.17) Ratio 09/26/23 09/26/23 09/26/23 Range/Units 06:09 06:22 06:22 WBC 10.82 H (4.50-10.00) X 10*3/uL RBC 3.55 L (4.40-5.60) X 10*6/uL Hgb 10.4 L (13.0-17.0) g/dL Hct 34.0 L (39.6-50.0) % MCHC 30.6 L (32.0-37.0) g/dL Sodium 133 L (135-145) mmol/L Anion Gap 12.60 H (4.00-12.00) mmol/L BUN 63.2 H (9.0-27.0) mg/dL Creatinine 1.7 H (0.6-1.5) mg/dL Est GFR (CKD-EPI) 42 L (>=60) BUN/Creatinine Ratio 37.18 H (12.00-20.00) Ratio Glucose 35 A* (70-110) mg/dL POC Glucose (mg/dL) 43 L (70-110) mg/dL Magnesium (1.5-2.4) mg/dL AST 128 H (14-35) U/L Albumin 3.5 L (3.8-4.9) g/dL Globulin 4.3 H (1.6-3.3) g/dL Albumin/Globulin Ratio 0.81 L (1.60-3.17) Ratio 09/26/23 09/26/23 09/26/23 Range/Units 06:29 06:47 06:57 WBC (4.50-10.00) X 10*3/uL RBC (4.40-5.60) X 10*6/uL Hgb (13.0-17.0) g/dL Hct (39.6-50.0) % MCHC (32.0-37.0) g/dL Sodium (135-145) mmol/L Anion Gap (4.00-12.00) mmol/L BUN (9.0-27.0) mg/dL Creatinine (0.6-1.5) mg/dL Est GFR (CKD-EPI) (>=60) BUN/Creatinine Ratio (12.00-20.00) Ratio Glucose (70-110) mg/dL POC Glucose (mg/dL) 33 L 59 L 191 H (70-110) mg/dL Magnesium (1.5-2.4) mg/dL AST (14-35) U/L Albumin (3.8-4.9) g/dL Globulin (1.6-3.3) g/dL Albumin/Globulin Ratio (1.60-3.17) Ratio 09/26/23 09/26/23 Range/Units 08:15 11:32 WBC (4.50-10.00) X 10*3/uL RBC (4.40-5.60) X 10*6/uL Hgb (13.0-17.0) g/dL Hct (39.6-50.0) % MCHC (32.0-37.0) g/dL Sodium (135-145) mmol/L Anion Gap (4.00-12.00) mmol/L BUN (9.0-27.0) mg/dL Creatinine (0.6-1.5) mg/dL Est GFR (CKD-EPI) (>=60) BUN/Creatinine Ratio (12.00-20.00) Ratio Glucose (70-110) mg/dL POC Glucose (mg/dL) 237 H 316 H (70-110) mg/dL Magnesium (1.5-2.4) mg/dL AST (14-35) U/L Albumin (3.8-4.9) g/dL Globulin (1.6-3.3) g/dL Albumin/Globulin Ratio (1.60-3.17) Ratio Microbiology - Last 24 Hours (Table) 09/25/23 17:05 Blood Culture Gram Stain - Preliminary Blood Assessment and Plan (1) Bacteremia Current Visit: No Status: Acute Code(s): R78.81 - BACTEREMIA SNOMED Code(s): 3727645 Plan: 1patient with an episode of sepsis in this patient who did have a fever tachycardia mild elevated white count source is likely urinary patient did have significantly positive UA and likely from enteric gram-negative pathogen, patient chest x-ray with mostly pulmonary vascular congestion no significant respiratory symptoms to be suspicious for pneumonia. 2patient with a chronic nonhealing wound to the left heel area with some slough tissue however no significant surrounding redness , patient did have x-rays show soft tissue swelling and area of demineralization, local wound care to the left heel with Medihoney followed by moist dressing and keep the area of the pressure 3positive blood culture with ESBL E. coli possible urinary source Zosyn discontinued meropenem has been added blood cultures will be repeated document clearance Dictation was produced using [employer] dictation software. please excuse any grammatical, word or spelling errors.
[2023-09-26] MEDS: ASPIRIN 81 MG PO SCH (17:19)
[2023-09-26] MEDS: FERROUS SULFATE 325 MG TAB PO SCH (17:19)
[2023-09-26 17:24] LABS: Glucose,Whole Blood 173 mg/dL (70-110)
[2023-09-26 20:49] LABS: Glucose,Whole Blood 108 mg/dL (70-110)
[2023-09-26] MEDS: GABAPENTIN 400 MG CAP PO SCH (21:13)
[2023-09-26] MEDS: ATORVASTATIN 80 MG TAB PO SCH (21:13)
--- NOTE | 2023-09-26 21:32 | P.PN ---
Subjective Progress Note Date: 09/26/23 Patient evaluated in the ER pending bed placement on the medical floor. He has indwelling catheter placed which was done in the ER on admission. There is concern for UTI as source of infection and urine culture has been ordered. Patient went for xray of the right foot wound which shows soft tissue edema with suspected ulceration posterior to the calcaneus, there is an area that corresponds to triple bone scan and is suspicious for osteomyelitis. Patient is on antibiotic coverage currently with IV zosyn and infectious disease consultation is in place. Renal function has improved with IV fluids currently 1.7, however sodium has decreased to 133. Chest xray was suspicious for vascular congestion and a proBNP was checked which results to 3090. Patient is on room air does not appear to be in over heart failure would recommending stopping the IV fluids and monitor closely at this time. He is having low blood glucose at insulin has been adjusted. Review of Systems Constitutional: Denied any fatigue denied any fever. Cardio vascular: denied any chest pain, palpitations Gastrointestinal: denied any nausea, vomiting, diarrhea Pulmonary: Denied any shortness of breath cough Neurologic denied any new focal deficits All inpatient medications were reviewed and appropriate changes in these medicat ions as dictated in the interval history and assessment and plan. PHYSICAL EXAMINATION: GENERAL: The patient is alert and oriented x3, not in any acute distress. Well developed, well nourished. HEENT: Pupils are round and equally reacting to light. EOMI. No scleral icterus. No conjunctival pallor. Normocephalic, atraumatic. No pharyngeal erythema. No thyromegaly. CARDIOVASCULAR: S1 and S2 present. No murmurs, rubs, or gallops. PULMONARY: Chest is clear to auscultation, no wheezing or crackles. ABDOMEN: Soft, nontender, nondistended, normoactive bowel sounds. No palpable organomegaly. MUSCULOSKELETAL: No joint swelling or deformity. EXTREMITIES: No cyanosis, clubbing, or pedal edema. NEUROLOGICAL: Gross neurological examination did not reveal any focal deficits. SKIN: No rashes. Lower extremity dressing in place. Assessment Acute kidney injury from ATN/sepsis and hypovolemia Left foot wound non-healing with concern for osteomyelitis insulin-dependent diabetes mellitus uncontrolled with hyper/hypoglycemia Abnormal urinalysis concern for acute UTI and sepsis present on admission Urinary retention requiring IDC placement Diabetic nephropathy Chronic kidney disease stage II Hypertension Hyperlipidemia Hx of coronary artery disease and prior CABG/Stenting Hypothyroidism Gastroesophageal reflux disease Former smoker GI prophylaxis DVT prophylaxis Full Code Plan Avoid nephrotoxic agents Nephrology following renal function Continue on IV zosyn, ID following cultures Wound culture pending IV fluids discontinued patient given dose of IV lasix x 1 Due to the hypoglycemia recommend to stop scheduled insulin and continue with accuchecks ACHS and sliding scale. Adjustments made pending clinical course Repeat blood culture and check urine culture PT/OT consultation Repeat labs in AM Continue all other medications and supportive care The impression and plan of care has been dictated by Silvia Ralph, Nurse Practitioner as directed. Dr. Karlie MD I have performed a history and physical examination and medical decision making of this patient, discussed the same with the dictator, and agree with the dictators assessment and plan as written, documented as a scribe. Based on total visit time, I have performed more than 50% of this visit. Objective - Vital Signs Vital signs: Vital Signs Temp 98.4 F 09/26/23 15:51 Pulse 68 09/26/23 15:51 Resp 18 09/26/23 15:51 BP 131/64 09/26/23 15:51 Pulse Ox 98 09/26/23 15:51 FiO2 Intake & Output 09/25/23 09/26/23 09/26/23 18:59 06:59 18:59 Intake Total 800 Output Total 800 2800 Balance 0 -2800 Intake: Intake, IV Titration 300 Amount Sodium Chloride 0.9% 1, 300 000 ml @ 100 mls/hr IV . Q10H STA Rx#:[id number] Oral 500 Output: Urine 800 2800 Uretheral (Romeo) 1900 Other: Voiding Method Urinal Indwelling Catheter Diaper - Labs CBC & Chem 7: 09/26/23 06:22 09/26/23 06:22 Labs: Abnormal Lab Results - Last 24 Hours (Table) 09/25/23 09/25/23 09/26/23 Range/Units 08:17 20:08 06:09 WBC (4.50-10.00) X 10*3/uL RBC (4.40-5.60) X 10*6/uL Hgb (13.0-17.0) g/dL Hct (39.6-50.0) % MCHC (32.0-37.0) g/dL Sodium (135-145) mmol/L Anion Gap (4.00-12.00) mmol/L BUN (9.0-27.0) mg/dL Creatinine (0.6-1.5) mg/dL Est GFR (CKD-EPI) (>=60) BUN/Creatinine Ratio (12.00-20.00) Ratio Glucose (70-110) mg/dL POC Glucose (mg/dL) 225 H 43 L (70-110) mg/dL Magnesium 2.5 H (1.5-2.4) mg/dL AST (14-35) U/L Albumin (3.8-4.9) g/dL Globulin (1.6-3.3) g/dL Albumin/Globulin Ratio (1.60-3.17) Ratio 09/26/23 09/26/23 09/26/23 Range/Units 06:22 06:22 06:29 WBC 10.82 H (4.50-10.00) X 10*3/uL RBC 3.55 L (4.40-5.60) X 10*6/uL Hgb 10.4 L (13.0-17.0) g/dL Hct 34.0 L (39.6-50.0) % MCHC 30.6 L (32.0-37.0) g/dL Sodium 133 L (135-145) mmol/L Anion Gap 12.60 H (4.00-12.00) mmol/L BUN 63.2 H (9.0-27.0) mg/dL Creatinine 1.7 H (0.6-1.5) mg/dL Est GFR (CKD-EPI) 42 L (>=60) BUN/Creatinine Ratio 37.18 H (12.00-20.00) Ratio Glucose 35 A* (70-110) mg/dL POC Glucose (mg/dL) 33 L (70-110) mg/dL Magnesium (1.5-2.4) mg/dL AST 128 H (14-35) U/L Albumin 3.5 L (3.8-4.9) g/dL Globulin 4.3 H (1.6-3.3) g/dL Albumin/Globulin Ratio 0.81 L (1.60-3.17) Ratio 09/26/23 09/26/23 09/26/23 Range/Units 06:47 06:57 08:15 WBC (4.50-10.00) X 10*3/uL RBC (4.40-5.60) X 10*6/uL Hgb (13.0-17.0) g/dL Hct (39.6-50.0) % MCHC (32.0-37.0) g/dL Sodium (135-145) mmol/L Anion Gap (4.00-12.00) mmol/L BUN (9.0-27.0) mg/dL Creatinine (0.6-1.5) mg/dL Est GFR (CKD-EPI) (>=60) BUN/Creatinine Ratio (12.00-20.00) Ratio Glucose (70-110) mg/dL POC Glucose (mg/dL) 59 L 191 H 237 H (70-110) mg/dL Magnesium (1.5-2.4) mg/dL AST (14-35) U/L Albumin (3.8-4.9) g/dL Globulin (1.6-3.3) g/dL Albumin/Globulin Ratio (1.60-3.17) Ratio 09/26/23 09/26/23 Range/Units 11:32 13:21 WBC (4.50-10.00) X 10*3/uL RBC (4.40-5.60) X 10*6/uL Hgb (13.0-17.0) g/dL Hct (39.6-50.0) % MCHC (32.0-37.0) g/dL Sodium (135-145) mmol/L Anion Gap (4.00-12.00) mmol/L BUN (9.0-27.0) mg/dL Creatinine (0.6-1.5) mg/dL Est GFR (CKD-EPI) (>=60) BUN/Creatinine Ratio (12.00-20.00) Ratio Glucose (70-110) mg/dL POC Glucose (mg/dL) 316 H 334 H (70-110) mg/dL Magnesium (1.5-2.4) mg/dL AST (14-35) U/L Albumin (3.8-4.9) g/dL Globulin (1.6-3.3) g/dL Albumin/Globulin Ratio (1.60-3.17) Ratio Microbiology - Last 24 Hours (Table) 09/25/23 17:05 Blood Culture Gram Stain - Preliminary Blood Assessment and Plan Time with Patient: Less than 30
[2023-09-27] MEDS: HEPARIN SODIUM,PORCINE 5,000 UNIT/ML 1 ML VIAL SQ SCH ×3 (00:34→20:55)
[2023-09-27 02:49] LABS: Glucose,Whole Blood 42 mg/dL (70-110)
[2023-09-27 03:12] LABS: Glucose,Whole Blood 73 mg/dL (70-110)
[2023-09-27] MEDS: MEROPENEM 1 GM in SODIUM CHLORIDE 0.9% 100 ML IVPB SCH ×3 (06:18→21:00)
[2023-09-27] MEDS: LEVOTHYROXINE 137 MCG TAB PO SCH (06:18)
[2023-09-27 08:15] LABS: Glucose,Whole Blood >600 mg/dL (70-110)
[2023-09-27 08:15] LABS: Glucose,Whole Blood 112 mg/dL (70-110)
[2023-09-27] MEDS: INSULIN ASPART (NovoLOG) 100 UNIT/ML VIAL SQ SCH ×4 (08:15→21:08)
[2023-09-27] MEDS: ISOSORBIDE MONONITRATE ER 30 MG TAB.ER.24H PO SCH (08:40)
[2023-09-27] MEDS: METOPROLOL TARTRATE 50 MG TAB PO SCH ×2 (08:40→17:48)
[2023-09-27] MEDS: ESCITALOPRAM 10 MG TAB PO SCH (08:40)
[2023-09-27] MEDS: amLODIPine 5 MG TAB PO SCH ×2 (08:40→20:58)
[2023-09-27] MEDS: TROSPIUM CHLORIDE 20 MG TABLET PO SCH (08:40)
[2023-09-27] MEDS: FAMOTIDINE 20 MG TAB PO SCH (08:40)
[2023-09-27] MEDS: HYDROcodone/APAP 7.5-325MG 1 EACH TAB PO PRN ×3 (08:43→22:40)
--- NOTE | 2023-09-27 10:56 | P.PN ---
Subjective Patient is seen in follow-up for acute kidney injury on chronic kidney disease. Has Romeo catheter. Nonoliguric. Oral intake is good. Denies chest pain or shortness of breath. Vital signs are stable. General: No acute distress. HEENT: Head exam is unremarkable. LUNGS: No audible rhonchi or wheezes. HEART: Rate and Rhythm are regular. ABDOMEN: Nontender. EXTREMITITES: 1+ edema. Objective - Vital Signs Vital signs: Vital Signs Temp 98.4 F 09/27/23 08:33 Pulse 74 09/27/23 08:33 Resp 14 09/27/23 08:33 BP 163/68 09/27/23 08:33 Pulse Ox 95 09/27/23 08:33 FiO2 Intake & Output 09/26/23 09/27/23 09/27/23 18:59 06:59 18:59 Intake Total 150 Output Total 3700 1650 650 Balance -3700 -1650 -500 Intake: Oral 150 Output: Urine 3700 1650 650 Uretheral (Romeo) 1900 Other: Voiding Method Indwelling Catheter Indwelling Catheter - Labs CBC & Chem 7: 09/26/23 06:22 09/26/23 06:22 Labs: Abnormal Lab Results - Last 24 Hours (Table) 09/26/23 09/26/23 09/26/23 Range/Units 06:22 06:22 11:32 WBC 10.82 H (4.50-10.00) X 10*3/uL RBC 3.55 L (4.40-5.60) X 10*6/uL Hgb 10.4 L (13.0-17.0) g/dL Hct 34.0 L (39.6-50.0) % MCHC 30.6 L (32.0-37.0) g/dL Sodium 133 L (135-145) mmol/L Anion Gap 12.60 H (4.00-12.00) mmol/L BUN 63.2 H (9.0-27.0) mg/dL Creatinine 1.7 H (0.6-1.5) mg/dL Est GFR (CKD-EPI) 42 L (>=60) BUN/Creatinine Ratio 37.18 H (12.00-20.00) Ratio Glucose 35 A* (70-110) mg/dL POC Glucose (mg/dL) 316 H (70-110) mg/dL AST 128 H (14-35) U/L Albumin 3.5 L (3.8-4.9) g/dL Globulin 4.3 H (1.6-3.3) g/dL Albumin/Globulin Ratio 0.81 L (1.60-3.17) Ratio 09/26/23 09/26/23 09/26/23 Range/Units 13:21 16:12 17:22 WBC (4.50-10.00) X 10*3/uL RBC (4.40-5.60) X 10*6/uL Hgb (13.0-17.0) g/dL Hct (39.6-50.0) % MCHC (32.0-37.0) g/dL Sodium (135-145) mmol/L Anion Gap (4.00-12.00) mmol/L BUN (9.0-27.0) mg/dL Creatinine (0.6-1.5) mg/dL Est GFR (CKD-EPI) (>=60) BUN/Creatinine Ratio (12.00-20.00) Ratio Glucose (70-110) mg/dL POC Glucose (mg/dL) 334 H 259 H 173 H (70-110) mg/dL AST (14-35) U/L Albumin (3.8-4.9) g/dL Globulin (1.6-3.3) g/dL Albumin/Globulin Ratio (1.60-3.17) Ratio 09/27/23 09/27/23 09/27/23 Range/Units 02:47 08:09 08:14 WBC (4.50-10.00) X 10*3/uL RBC (4.40-5.60) X 10*6/uL Hgb (13.0-17.0) g/dL Hct (39.6-50.0) % MCHC (32.0-37.0) g/dL Sodium (135-145) mmol/L Anion Gap (4.00-12.00) mmol/L BUN (9.0-27.0) mg/dL Creatinine (0.6-1.5) mg/dL Est GFR (CKD-EPI) (>=60) BUN/Creatinine Ratio (12.00-20.00) Ratio Glucose (70-110) mg/dL POC Glucose (mg/dL) 42 L >600 H 112 H (70-110) mg/dL AST (14-35) U/L Albumin (3.8-4.9) g/dL Globulin (1.6-3.3) g/dL Albumin/Globulin Ratio (1.60-3.17) Ratio Microbiology - Last 24 Hours (Table) 09/26/23 02:02 Gram Stain - Preliminary Foot - Left 09/25/23 17:05 Blood Culture Gram Stain - Preliminary Blood Assessment and Plan Plan: Assessment: 1. Acute kidney injury secondary to ATN secondary to severe sepsis, hypo volemia, diuretics. Creatinine 2.05 on admission - 1.7 yesterday. No hydronephrosis noted on kidney ultrasound. 2. Chronic kidney disease stage II with baseline creatinine 1-1.2. Suspect diabetic kidney disease. UA dated 09/20/2023 showed UTI but no proteinuria. 3. Diabetes mellitus. 4. Hypertension with chronic kidney disease. 5. Hypovolemic hyponatremia. Component of hypertonicity from hyperglycemia. Improved. Now slightly hypervolemic or lower extremity edema. 6. Severe sepsis secondary to UTI. Also has a nonhealing left foot wound. Blood cultures positive for gram-negative bacilli. ID following. Plan: Status post IV Lasix given 09/26/2023. Increase amlodipine to 5 mg twice daily. Avoid nephrotoxins. Encourage oral intake. Continue to monitor renal function and urine output. Follow-up morning labs. Repeat chest x-ray tomorrow morning.
[2023-09-27 11:22] LABS: Magnesium 2.2 mg/dL (1.5-2.4)
[2023-09-27 11:27] LABS: BUN/Creat Ratio 31.76 Ratio (12.00-20.00); Carbon Dioxide 24.2 mmol/L (21.6-31.8); Chloride 98 mmol/L (96-109); Glucose 79 mg/dL (70-110); Potassium 4.3 mmol/L (3.5-5.5); Sodium 134 mmol/L (135-145)
[2023-09-27 12:03] LABS: Glucose,Whole Blood 293 mg/dL (70-110)
[2023-09-27 12:38] VITALS: BMI 23.7
[2023-09-27 17:20] LABS: Glucose,Whole Blood 205 mg/dL (70-110)
[2023-09-27] MEDS: ASPIRIN 81 MG PO SCH (17:48)
[2023-09-27] MEDS: FERROUS SULFATE 325 MG TAB PO SCH (17:48)
[2023-09-27] MEDS: GABAPENTIN 400 MG CAP PO SCH (20:55)
[2023-09-27] MEDS: ATORVASTATIN 80 MG TAB PO SCH (20:55)
[2023-09-27 21:06] LABS: Glucose,Whole Blood 248 mg/dL (70-110)
[2023-09-27] MEDS: INSULIN DETEMIR (LEVEMIR) 100 UNIT/ML SYR SQ SCH (21:08)
--- NOTE | 2023-09-27 22:10 | P.PN ---
Subjective Progress Note Date: 09/27/23 Patient evaluated in the ER pending bed placement on the medical floor. He has indwelling catheter placed which was done in the ER on admission. There is concern for UTI as source of infection and urine culture has been ordered. Patient went for xray of the right foot wound which shows soft tissue edema with suspected ulceration posterior to the calcaneus, there is an area that corresponds to triple bone scan and is suspicious for osteomyelitis. Patient is on antibiotic coverage currently with IV zosyn and infectious disease consultation is in place. Renal function has improved with IV fluids currently 1.7, however sodium has decreased to 133. Chest xray was suspicious for vascular congestion and a proBNP was checked which results to 3090. Patient is on room air does not appear to be in over heart failure would recommending stopping the IV fluids and monitor closely at this time. He is having low blood glucose at insulin has been adjusted. 09/27/2023 Patient monitored on medical floor. More lethargic today. Blood culture is positive revealing gram negative bacilli. Urine culture pending. Remains with indwelling catheter. On IV meropenem. Labs today showing sodium 134, BUN 54, creatinine 1.7. Review of Systems Constitutional: Denied any fatigue denied any fever. Cardio vascular: denied any chest pain, palpitations Gastrointestinal: denied any nausea, vomiting, diarrhea Pulmonary: Denied any shortness of breath cough Neurologic denied any new focal deficits All inpatient medications were reviewed and appropriate changes in these medications as dictated in the interval history and assessment and plan. PHYSICAL EXAMINATION: GENERAL: The patient is alert and oriented x2-3, not in any acute distress. Well developed, well nourished. HEENT: Pupils are round and equally reacting to light. EOMI. No scleral icterus. No conjunctival pallor. Normocephalic, atraumatic. No pharyngeal erythema. No thyromegaly. CARDIOVASCULAR: S1 and S2 present. No murmurs, rubs, or gallops. PULMONARY: Chest is clear to auscultation, no wheezing or crackles. ABDOMEN: Soft, nontender, nondistended, normoactive bowel sounds. No palpable organomegaly. MUSCULOSKELETAL: No joint swelling or deformity. EXTREMITIES: No cyanosis, clubbing, or pedal edema. NEUROLOGICAL: Gross neurological examination did not reveal any focal deficits. Generalized weakness. SKIN: No rashes. Lower extremity dressing in place. Assessment Acute kidney injury from ATN/sepsis and hypovolemia Left foot wound non-healing with concern for osteomyelitis insulin-dependent diabetes mellitus uncontrolled with hyper/hypoglycemia Abnormal urinalysis concern for acute UTI and sepsis present on admission Urinary retention requiring IDC placement Diabetic nephropathy Chronic kidney disease stage II Hypertension Hyperlipidemia Hx of coronary artery disease and prior CABG/Stenting Hypothyroidism Gastroesophageal reflux disease Former smoker GI prophylaxis DVT prophylaxis Full Code Plan Avoid nephrotoxic agents Nephrology following renal function Continue on IV zantibiotics, ID following cultures Wound culture pending IV fluids discontinued patient given dose of IV lasix x 1 remains off fluids at this time Due to the hypoglycemia recommend to stop scheduled insulin and continue with accuchecks ACHS and sliding scale. Adjustments made pending clinical course Repeat blood culture and check urine culture PT/OT consultation Repeat labs in AM Continue all other medications and supportive care The impression and plan of care has been dictated by Silvia Ralph, Nurse Practitioner as directed. Dr. Karlie MD I have performed a history and physical examination and medical decision making of this patient, discussed the same with the dictator, and agree with the dictators assessment and plan as written, documented as a scribe. Based on total visit time, I have performed more than 50% of this visit. Objective - Vital Signs Vital signs: Vital Signs Temp 98.4 F 09/27/23 08:33 Pulse 74 09/27/23 08:33 Resp 14 09/27/23 08:33 BP 163/68 09/27/23 08:33 Pulse Ox 95 09/27/23 08:33 FiO2 Intake & Output 09/26/23 09/27/23 09/27/23 18:59 06:59 18:59 Output Total 3700 1650 Balance -3700 -1650 Output: Urine 3700 1650 Uretheral (Romeo) 1900 Other: Voiding Method Indwelling Catheter - Labs CBC & Chem 7: 09/26/23 06:22 09/27/23 06:38 Labs: Abnormal Lab Results - Last 24 Hours (Table) 09/26/23 09/26/23 09/26/23 Range/Units 06:22 06:22 11:32 WBC 10.82 H (4.50-10.00) X 10*3/uL RBC 3.55 L (4.40-5.60) X 10*6/uL Hgb 10.4 L (13.0-17.0) g/dL Hct 34.0 L (39.6-50.0) % MCHC 30.6 L (32.0-37.0) g/dL Sodium 133 L (135-145) mmol/L Anion Gap 12.60 H (4.00-12.00) mmol/L BUN 63.2 H (9.0-27.0) mg/dL Creatinine 1.7 H (0.6-1.5) mg/dL Est GFR (CKD-EPI) 42 L (>=60) BUN/Creatinine Ratio 37.18 H (12.00-20.00) Ratio Glucose 35 A* (70-110) mg/dL POC Glucose (mg/dL) 316 H (70-110) mg/dL AST 128 H (14-35) U/L Albumin 3.5 L (3.8-4.9) g/dL Globulin 4.3 H (1.6-3.3) g/dL Albumin/Globulin Ratio 0.81 L (1.60-3.17) Ratio 09/26/23 09/26/23 09/26/23 Range/Units 13:21 16:12 17:22 WBC (4.50-10.00) X 10*3/uL RBC (4.40-5.60) X 10*6/uL Hgb (13.0-17.0) g/dL Hct (39.6-50.0) % MCHC (32.0-37.0) g/dL Sodium (135-145) mmol/L Anion Gap (4.00-12.00) mmol/L BUN (9.0-27.0) mg/dL Creatinine (0.6-1.5) mg/dL Est GFR (CKD-EPI) (>=60) BUN/Creatinine Ratio (12.00-20.00) Ratio Glucose (70-110) mg/dL POC Glucose (mg/dL) 334 H 259 H 173 H (70-110) mg/dL AST (14-35) U/L Albumin (3.8-4.9) g/dL Globulin (1.6-3.3) g/dL Albumin/Globulin Ratio (1.60-3.17) Ratio 09/27/23 09/27/23 09/27/23 Range/Units 02:47 08:09 08:14 WBC (4.50-10.00) X 10*3/uL RBC (4.40-5.60) X 10*6/uL Hgb (13.0-17.0) g/dL Hct (39.6-50.0) % MCHC (32.0-37.0) g/dL Sodium (135-145) mmol/L Anion Gap (4.00-12.00) mmol/L BUN (9.0-27.0) mg/dL Creatinine (0.6-1.5) mg/dL Est GFR (CKD-EPI) (>=60) BUN/Creatinine Ratio (12.00-20.00) Ratio Glucose (70-110) mg/dL POC Glucose (mg/dL) 42 L >600 H 112 H (70-110) mg/dL AST (14-35) U/L Albumin (3.8-4.9) g/dL Globulin (1.6-3.3) g/dL Albumin/Globulin Ratio (1.60-3.17) Ratio Microbiology - Last 24 Hours (Table) 09/26/23 02:02 Gram Stain - Preliminary Foot - Left 09/25/23 17:05 Blood Culture Gram Stain - Preliminary Blood Assessment and Plan Time with Patient: Less than 30
[2023-09-28] MEDS: ACETAMINOPHEN TAB 325 MG TAB PO PRN (02:31)
[2023-09-28 04:58] LABS: Glucose,Whole Blood 233 mg/dL (70-110)
[2023-09-28] MEDS: MEROPENEM 1 GM in SODIUM CHLORIDE 0.9% 100 ML IVPB SCH ×3 (05:26→21:10)
[2023-09-28] MEDS: LEVOTHYROXINE 137 MCG TAB PO SCH (06:12)
[2023-09-28 07:30] LABS: Glucose,Whole Blood 192 mg/dL (70-110)
[2023-09-28] MEDS: ISOSORBIDE MONONITRATE ER 30 MG TAB.ER.24H PO SCH (08:53)
[2023-09-28] MEDS: FAMOTIDINE 20 MG TAB PO SCH (08:53)
[2023-09-28] MEDS: INSULIN ASPART (NovoLOG) 100 UNIT/ML VIAL SQ SCH ×4 (08:54→20:29)
[2023-09-28] MEDS: amLODIPine 5 MG TAB PO SCH ×2 (08:56→20:28)
[2023-09-28] MEDS: METOPROLOL TARTRATE 50 MG TAB PO SCH ×2 (08:56→16:09)
[2023-09-28] MEDS: TROSPIUM CHLORIDE 20 MG TABLET PO SCH (08:56)
[2023-09-28] MEDS: HEPARIN SODIUM,PORCINE 5,000 UNIT/ML 1 ML VIAL SQ SCH ×2 (08:57→20:28)
[2023-09-28] MEDS: ESCITALOPRAM 10 MG TAB PO SCH (08:57)
[2023-09-28] MEDS: HYDROcodone/APAP 7.5-325MG 1 EACH TAB PO PRN ×3 (08:59→23:39)
--- NOTE | 2023-09-28 10:28 | XR ---
EXAMINATION TYPE: XR chest 1V DATE OF EXAM: 09/28/2023 COMPARISON: 09/25/2023 HISTORY: Shortness of breath TECHNIQUE: Single frontal view of the chest is obtained. FINDINGS: Emphysematous changes with suspected pulmonary fibrosis. Elevated left hemidiaphragm with left lower lobe infiltrate. Median sternotomy changes. Atherosclerotic change aorta. Diffuse osteopen ia with arthropathy of the shoulders. IMPRESSION: 1. COPD correlate for pulmonary fibrosis. 2. Left lower lobe infiltrate.
[2023-09-28 11:09] LABS: Basophils # (A) 0.07 X 10*3/uL (0.00-0.10); Basophils % (A) 0.9 %; Eosinophils % (A) 3.8 %; HCT 32.7 % (39.6-50.0); HGB 10.3 g/dL (13.0-17.0); Lymphocytes # (A) 1.07 X 10*3/uL (0.90-5.00); Lymphocytes % (A) 13.6 %; MCH 29.4 pg (27.0-32.0); MCHC 31.5 g/dL (32.0-37.0); MCV 93.4 FL (80.0-97.0); Mean Platelet Volume 10.1 FL (9.5-12.2); Monocytes # (A) 0.99 X 10*3/uL (0.20-1.00); Monocytes % (A) 12.6 %; NRBC Per 100 WBC 0 X 10*3/uL (0.00-0.01); Neutrophils # (A) 5.38 X 10*3/uL (1.80-7.70); Neutrophils % (A) 68.6 %; Platelet Count 303 X 10*3/uL (140-440); RDW 13.4 % (11.5-14.5); WBC 7.85 X 10*3/uL (4.50-10.00)
[2023-09-28 11:31] LABS: Magnesium 2.2 mg/dL (1.5-2.4)
--- NOTE | 2023-09-28 11:37 | P.PN ---
Subjective Patient is seen in follow-up for acute kidney injury on chronic kidney disease. Has Romeo catheter. Nonoliguric. Oral intake is good. Denies chest pain or shortness of breath. Creatinine stable at 1.7 yesterday. Vital signs are stable. General: No acute distress. HEENT: Head exam is unremarkable. LUNGS: No audible rhonchi or wheezes. HEART: Rate and Rhythm are regular. ABDOMEN: Nontender. EXTREMITITES: Trace edema. Objective - Vital Signs Vital signs: Vital Signs Temp 97.5 F L 09/28/23 07:23 Pulse 54 L 09/28/23 07:23 Resp 16 09/28/23 07:23 BP 157/72 09/28/23 07:23 Pulse Ox 95 09/28/23 07:23 FiO2 Intake & Output 09/27/23 09/28/23 09/28/23 18:59 06:59 18:59 Intake Total 881 Output Total 1000 1850 Balance -119 -1850 Weight 77.111 kg Intake: Oral 881 Output: Urine 1000 1850 Other: Voiding Method Indwelling Catheter Indwelling Catheter Indwelling Catheter - Labs CBC & Chem 7: 09/28/23 06:39 09/27/23 06:38 Labs: Abnormal Lab Results - Last 24 Hours (Table) 09/27/23 09/27/23 09/27/23 Range/Units 06:38 06:38 12:02 RBC (4.40-5.60) X 10*6/uL Hgb (13.0-17.0) g/dL Hct (39.6-50.0) % MCHC (32.0-37.0) g/dL ESR 111 H (0-20) mm/Hr POC Glucose (mg/dL) 293 H (70-110) mg/dL Hemoglobin A1c 8.4 H (<=6.0) % 09/27/23 09/27/23 09/28/23 Range/Units 17:19 21:04 04:55 RBC (4.40-5.60) X 10*6/uL Hgb (13.0-17.0) g/dL Hct (39.6-50.0) % MCHC (32.0-37.0) g/dL ESR (0-20) mm/Hr POC Glucose (mg/dL) 205 H 248 H 233 H (70-110) mg/dL Hemoglobin A1c (<=6.0) % 09/28/23 09/28/23 Range/Units 06:39 07:30 RBC 3.50 L (4.40-5.60) X 10*6/uL Hgb 10.3 L (13.0-17.0) g/dL Hct 32.7 L (39.6-50.0) % MCHC 31.5 L (32.0-37.0) g/dL ESR (0-20) mm/Hr POC Glucose (mg/dL) 192 H (70-110) mg/dL Hemoglobin A1c (<=6.0) % Microbiology - Last 24 Hours (Table) 09/25/23 17:05 Blood Culture Gram Stain - Final Blood Blood Culture - Final Escherichia coli 09/26/23 16:25 Blood Culture - Preliminary Blood 09/26/23 20:18 Urine Culture - Preliminary Urine,Catheterized Yeast Assessment and Plan Plan: Assessment: 1. Acute kidney injury secondary to ATN secondary to severe sepsis, hypovolemia , diuretics. Creatinine 2.05 on admission - stable at 1.7 yesterday. No hydronephrosis noted on kidney ultrasound. 2. Chronic kidney disease stage II with baseline creatinine 1-1.2. Suspect diabetic kidney disease. UA dated 09/20/2023 showed UTI but no proteinuria. 3. Diabetes mellitus. 4. Hypertension with chronic kidney disease. 5. Hypovolemic hyponatremia. Component of hypertonicity from hyperglycemia. Improved. Slightly hypervolemic and improved with diuresis. 6. Severe sepsis secondary to UTI. Also has a nonhealing left foot wound. Blood cultures positive for E. coli. ID following. On IV antibiotics. Plan: Status post IV Lasix given 09/26/2023. Avoid nephrotoxins. Encourage oral intake. Continue to monitor renal function and urine output. Follow-up morning labs.
[2023-09-28 11:49] LABS: BUN/Creat Ratio 40.07 Ratio (12.00-20.00); Blood Urea Nitrogen 60.1 mg/dL (9.0-27.0); Calcium 8.7 mg/dL (8.7-10.3); Carbon Dioxide 23.7 mmol/L (21.6-31.8); Chloride 101 mmol/L (96-109); Glucose 192 mg/dL (70-110); Potassium 4.4 mmol/L (3.5-5.5); Sodium 134 mmol/L (135-145)
[2023-09-28 12:11] LABS: Glucose,Whole Blood 235 mg/dL (70-110)
--- NOTE | 2023-09-28 14:35 | P.PN ---
Subjective Progress Note Date: 09/27/23 Principal diagnosis: Reason for follow-up is fever and bacteremia Patient is a 72-year-old male with a past medical history significant for diabetes mellitus hypertension hyperlipidemia LA coronary artery disease long term resident patient has been sent to the ER for evaluation of possible infection at the patient was noticed to have a fever of 100 F at the local long term, patient did have a positive UA also noticed to have a positive blood culture with ESBL E. coli On today's evaluation that is 09/27/2023, the patient remains to be febrile, the patient is breathing comfortably on room air. The patient denies having any shortness of breath no chest pain or cough, patient denies Abdominal pain, no nausea/vomiting or diarrhea Patient did have white count of 10.82, creatinine 1.7 as of 09/26/2023 Objective - Vital Signs Vital signs: Vital Signs Temp 98.4 F 09/27/23 08:33 Pulse 74 09/27/23 08:33 Resp 14 09/27/23 08:33 BP 163/68 09/27/23 08:33 Pulse Ox 95 09/27/23 08:33 FiO2 Intake & Output 09/26/23 09/27/23 09/27/23 18:59 06:59 18:59 Intake Total 150 Output Total 3700 1650 650 Balance -3700 -1650 -500 Weight 77.111 kg Intake: Oral 150 Output: Urine 3700 1650 650 Uretheral (Romeo) 1900 Other: Voiding Method Indwelling Catheter Indwelling Catheter - Exam GENERAL DESCRIPTION: An elderly male up in bed in no distress RESPIRATORY SYSTEM: Unlabored breathing , clear to auscultation anteriorly HEART: S1 S2 regular rate and rhythm , ABDOMEN: Soft , no tenderness EXTREMITIES: Left heel wound is currently dressed - Labs CBC & Chem 7: 09/28/23 06:39 09/28/23 06:39 Labs: Abnormal Lab Results - Last 24 Hours (Table) 09/26/23 09/26/23 09/26/23 Range/Units 13:21 16:12 17:22 ESR (0-20) mm/Hr Sodium (135-145) mmol/L BUN (9.0-27.0) mg/dL Creatinine (0.6-1.5) mg/dL Est GFR (CKD-EPI) (>=60) BUN/Creatinine Ratio (12.00-20.00) Ratio POC Glucose (mg/dL) 334 H 259 H 173 H (70-110) mg/dL 09/27/23 09/27/23 09/27/23 Range/Units 02:47 06:38 06:38 ESR 111 H (0-20) mm/Hr Sodium 134 L (135-145) mmol/L BUN 54.0 H (9.0-27.0) mg/dL Creatinine 1.7 H (0.6-1.5) mg/dL Est GFR (CKD-EPI) 42 L (>=60) BUN/Creatinine Ratio 31.76 H (12.00-20.00) Ratio POC Glucose (mg/dL) 42 L (70-110) mg/dL 09/27/23 09/27/23 09/27/23 Range/Units 08:09 08:14 12:02 ESR (0-20) mm/Hr Sodium (135-145) mmol/L BUN (9.0-27.0) mg/dL Creatinine (0.6-1.5) mg/dL Est GFR (CKD-EPI) (>=60) BUN/Creatinine Ratio (12.00-20.00) Ratio POC Glucose (mg/dL) >600 H 112 H 293 H (70-110) mg/dL Microbiology - Last 24 Hours (Table) 09/25/23 17:05 Blood Culture Gram Stain - Preliminary Blood Blood Culture - Preliminary Gram Neg Bacilli 09/26/23 02:02 Gram Stain - Preliminary Foot - Left Assessment and Plan (1) Bacteremia Current Visit: No Status: Acute Code(s): R78.81 - BACTEREMIA SNOMED Code(s): 2014278 Plan: 1patient with an episode of sepsis in this patient who did have a fever tachycardia mild elevated white count source is likely urinary patient did have significantly positive UA and likely from enteric gram-negative pathogen, rell ent chest x-ray with mostly pulmonary vascular congestion no significant respiratory symptoms to be suspicious for pneumonia. 2patient with a chronic nonhealing wound to the left heel area with some slough tissue however no significant surrounding redness , patient did have x-rays show soft tissue swelling and area of demineralization, local wound care to the left heel with Medihoney followed by moist dressing and keep the area of the pressure 3positive blood culture with ESBL E. coli , status post questionable urinary versus his left heel ulcer. Wait for the culture to be finalize may need bone scan will continue with the meropenem Dictation was produced using [email or web address] dictation software. please excuse any grammatical, word or spelling errors. Time with Patient: Less than 30
--- NOTE | 2023-09-28 14:37 | P.PN ---
Subjective Progress Note Date: 09/28/23 Principal diagnosis: Reason for follow-up is fever and bacteremia Patient is a 72-year-old male with a past medical history significant for diabetes mellitus hypertension hyperlipidemia [place] coronary artery disease snf resident patient has been sent to the ER for evaluation of possible infection at the patient was noticed to have a fever of 100 F at the local snf, patient did have a positive UA also noticed to have a positive blood culture with ESBL E. coli On today's evaluation that is 09/28/2023, the patient denies any fever or any chills, the patient is breathing comfortably on room air and denies any shortness of breath, the patient denies any chest pain, no cough or sputum production, patient denies nausea/vomiting /diarrhea and no abdominal pain, denies any worsening pain to the left heel wound area Patient did have white count 7.5, creatinine 1.5, blood culture with ESBL E. coli, left heel with a gram-negative urine with yeast Objective - Vital Signs Vital signs: Vital Signs Temp 97.8 F 09/28/23 14:06 Pulse 72 09/28/23 14:06 Resp 16 09/28/23 14:06 BP 148/62 09/28/23 14:06 Pulse Ox 96 09/28/23 14:06 FiO2 Intake & Output 09/27/23 09/28/23 09/28/23 18:59 06:59 18:59 Intake Total 881 Output Total 1000 1850 1200 Balance -119 -1850 -1200 Weight 77.111 kg Intake: Oral 881 Output: Urine 1000 1850 1200 Other: Voiding Method Indwelling Catheter Indwelling Catheter Indwelling Catheter - Exam GENERAL DESCRIPTION: An elderly male up in bed in no distress RESPIRATORY SYSTEM: Unlabored breathing , clear to auscultation anteriorly HEART: S1 S2 regular rate and rhythm , ABDOMEN: Soft , no tenderness EXTREMITIES: Left heel wound is currently dressed - Labs CBC & Chem 7: 09/28/23 06:39 09/28/23 06:39 Labs: Abnormal Lab Results - Last 24 Hours (Table) 09/27/23 09/27/23 09/28/23 Range/Units 17:19 21:04 04:55 RBC (4.40-5.60) X 10*6/uL Hgb (13.0-17.0) g/dL Hct (39.6-50.0) % MCHC (32.0-37.0) g/dL Sodium (135-145) mmol/L BUN (9.0-27.0) mg/dL Est GFR (CKD-EPI) (>=60) BUN/Creatinine Ratio (12.00-20.00) Ratio Glucose (70-110) mg/dL POC Glucose (mg/dL) 205 H 248 H 233 H (70-110) mg/dL 09/28/23 09/28/23 09/28/23 Range/Units 06:39 06:39 07:30 RBC 3.50 L (4.40-5.60) X 10*6/uL Hgb 10.3 L (13.0-17.0) g/dL Hct 32.7 L (39.6-50.0) % MCHC 31.5 L (32.0-37.0) g/dL Sodium 134 L (135-145) mmol/L BUN 60.1 H (9.0-27.0) mg/dL Est GFR (CKD-EPI) 49 L (>=60) BUN/Creatinine Ratio 40.07 H (12.00-20.00) Ratio Glucose 192 H (70-110) mg/dL POC Glucose (mg/dL) 192 H (70-110) mg/dL 09/28/23 Range/Units 12:10 RBC (4.40-5.60) X 10*6/uL Hgb (13.0-17.0) g/dL Hct (39.6-50.0) % MCHC (32.0-37.0) g/dL Sodium (135-145) mmol/L BUN (9.0-27.0) mg/dL Est GFR (CKD-EPI) (>=60) BUN/Creatinine Ratio (12.00-20.00) Ratio Glucose (70-110) mg/dL POC Glucose (mg/dL) 235 H (70-110) mg/dL Microbiology - Last 24 Hours (Table) 09/27/23 06:38 Blood Culture - Preliminary Blood 09/26/23 02:02 Gram Stain - Preliminary Foot - Left Wound Culture - Preliminary Gram Neg Bacilli 09/25/23 17:05 Blood Culture Gram Stain - Final Blood Blood Culture - Final Escherichia coli 09/26/23 16:25 Blood Culture - Preliminary Blood 09/26/23 20:18 Urine Culture - Preliminary Urine,Catheterized Yeast Assessment and Plan (1) Bacteremia Current Visit: No Status: Acute Code(s): R78.81 - BACTEREMIA SNOMED Code(s): 6521193 Plan: 1patient with an episode of sepsis in this patient who did have a fever tachycardia mild elevated white count source is likely urinary patient did have significantly positive UA and likely from enteric gram-negative pathogen, patient chest x-ray with mostly pulmonary vascular congestion no significant respiratory symptoms to be suspicious for pneumonia. 2patient with a chronic nonhealing wound to the left heel area with some slough tissue , patient did have x-rays show soft tissue swelling and area of demineralization, local culture from the left lateral growing gram-negative with IV sensitivities pending 3positive blood culture with ESBL E. coli , source is likely left heel infected pressure ulcer and concern for possible osteomyelitis we will request a bone scan continue with the meropenem will need a PICC line and outpatient IV antibiotic therapy Dictation was produced using [employer] dictation software. please excuse any gram matical, word or spelling errors. Time with Patient: Less than 30
[2023-09-28] MEDS: FERROUS SULFATE 325 MG TAB PO SCH (16:09)
[2023-09-28] MEDS: ASPIRIN 81 MG PO SCH (16:09)
[2023-09-28 17:05] LABS: Glucose,Whole Blood 408 mg/dL (70-110)
[2023-09-28 19:10] LABS: Glucose,Whole Blood 472 mg/dL (70-110)
[2023-09-28] MEDS: GABAPENTIN 400 MG CAP PO SCH (20:28)
[2023-09-28] MEDS: ATORVASTATIN 80 MG TAB PO SCH (20:28)
[2023-09-28] MEDS ORDERED: INSULIN ASPART (NovoLOG) 100 UNIT/ML VIAL SQ ONE (20:28)
[2023-09-28] MEDS: INSULIN DETEMIR (LEVEMIR) 100 UNIT/ML SYR SQ SCH (20:28)
[2023-09-28 22:15] LABS: Glucose,Whole Blood 313 mg/dL (70-110)
[2023-09-29] MEDS: MEROPENEM 1 GM in SODIUM CHLORIDE 0.9% 100 ML IVPB SCH ×3 (05:35→21:36)
[2023-09-29] MEDS: HYDROcodone/APAP 7.5-325MG 1 EACH TAB PO PRN ×2 (05:35→14:13)
[2023-09-29] MEDS: LEVOTHYROXINE 137 MCG TAB PO SCH (05:50)
[2023-09-29 07:13] LABS: Glucose,Whole Blood 264 mg/dL (70-110)
[2023-09-29] MEDS: HEPARIN SODIUM,PORCINE 5,000 UNIT/ML 1 ML VIAL SQ SCH ×2 (08:24→20:46)
[2023-09-29] MEDS: INSULIN ASPART (NovoLOG) 100 UNIT/ML VIAL SQ SCH ×6 (08:25→20:49)
[2023-09-29] MEDS: ISOSORBIDE MONONITRATE ER 30 MG TAB.ER.24H PO SCH (08:25)
[2023-09-29] MEDS: ESCITALOPRAM 10 MG TAB PO SCH (08:26)
[2023-09-29] MEDS: FAMOTIDINE 20 MG TAB PO SCH (08:26)
[2023-09-29] MEDS: METOPROLOL TARTRATE 50 MG TAB PO SCH ×2 (08:26→18:03)
[2023-09-29] MEDS: amLODIPine 5 MG TAB PO SCH ×2 (08:27→20:46)
[2023-09-29] MEDS: TROSPIUM CHLORIDE 20 MG TABLET PO SCH (08:27)
--- NOTE | 2023-09-29 08:27 | P.PN ---
Subjective Progress Note Date: 09/28/23 Patient evaluated in the ER pending bed placement on the medical floor. He has indwelling catheter placed which was done in the ER on admission. There is concern for UTI as source of infection and urine culture has been ordered. Patient went for xray of the right foot wound which shows soft tissue edema with suspected ulceration posterior to the calcaneus, there is an area that corresponds to triple bone scan and is suspicious for osteomyelitis. Patient is on antibiotic coverage currently with IV zosyn and infectious disease consultation is in place. Renal function has improved with IV fluids currently 1.7, however sodium has decreased to 133. Chest xray was suspicious for vascular congestion and a proBNP was checked which results to 3090. Patient is on room air does not appear to be in over heart failure would recommending stopping the IV fluids and monitor closely at this time. He is having low blood glucose at insulin has been adjusted. 09/27/2023 Patient monitored on medical floor. More lethargic today. Blood culture is positive revealing gram negative bacilli. Urine culture pending. Remains with indwelling catheter. On IV meropenem. Labs today showing sodium 134, BUN 54, creatinine 1.7. 09/28/2023 Patient evaluated today sitting up in bed. Patient is agitated today. States he aches all over asking for pain medication. Indwelling catheter remains in place. Urine culture showing yeast, blood culture showing E.Coli and repeat blood culture pending. The left foot wound is also showing gram negative bacilli likely the source of infection. ID following closely. Had a f/u chest xray showing COPD, correlate for pulmonary fibrosis and left lower lobe infiltrate. Off IV fluids, sodium 134, creatinine 1.5. Review of Systems Constitutional: Denied any fatigue denied any fever. Cardio vascular: denied any chest pain, palpitations Gastrointestinal: denied any nausea, vomiting, diarrhea Pulmonary: Denied any shortness of breath cough Neurologic denied any new focal deficits All inpatient medications were reviewed and appropriate changes in these medications as dictated in the interval history and assessment and plan. PHYSICAL EXAMINATION: GENERAL: The patient is alert and oriented x2-3, not in any acute distress. Well developed, well nourished. HEENT: Pupils are round and equally reacting to light. EOMI. No scleral icterus. No conjunctival pallor. Normocephalic, atraumatic. No pharyngeal erythema. No thyromegaly. CARDIOVASCULAR: S1 and S2 present. No murmurs, rubs, or gallops. PULMONARY: Chest is clear to auscultation, no wheezing or crackles. ABDOMEN: Soft, nontender, nondistended, normoactive bowel sounds. No palpable organomegaly. MUSCULOSKELETAL: No joint swelling or deformity. EXTREMITIES: No cyanosis, clubbing, or pedal edema. NEUROLOGICAL: Gross neurological examination did not reveal any focal deficits. Generalized weakness. SKIN: No rashes. Lower extremity dressing in place. Assessment Acute kidney injury from ATN/sepsis and hypovolemia Left foot wound non-healing with concern for osteomyelitis culture showing gram negative likely source of the bacteremia E.Coli bacteremia insulin-dependent diabetes mellitus uncontrolled with hyper/hypoglycemia Abnormal urinalysis concern for acute UTI and sepsis present on admission urine culture showing donna. Urinary retention requiring IDC placement Diabetic nephropathy Chronic kidney disease stage II Hypertension Hyperlipidemia Hx of coronary artery disease and prior CABG/Stenting Hypothyroidism Gastroesophageal reflux disease Former smoker GI prophylaxis DVT prophylaxis Full Code Plan Avoid nephrotoxic agents Nephrology following renal function Continue on IV antibiotics, ID following cultures Wound culture pending currently growing gram negative IV fluids discontinued patient given dose of IV lasix x 1 remains off fluids at this time Due to the hypoglycemia recommend to stop scheduled insulin and continue with accuchecks ACHS and sliding scale. Adjustments made pending clinical course Repeat blood culture and check urine culture PT/OT consultation Repeat labs in AM Continue all other medications and supportive care The impression and plan of care has been dictated by Silvia Ralph, Nurse Practitioner as directed. Dr. Karlie MD I have performed a history and physical examination and medical decision making of this patient, discussed the same with the dictator, and agree with the dictators assessment and plan as written, documented as a scribe. Based on total visit time, I have performed more than 50% of this visit. Objective - Vital Signs Vital signs: Vital Signs Temp 98.2 F 09/29/23 02:00 Pulse 65 09/29/23 02:00 Resp 17 09/29/23 02:00 BP 154/62 09/29/23 02:00 Pulse Ox 95 09/29/23 02:00 FiO2 Intake & Output 09/28/23 09/28/23 09/29/23 06:59 18:59 06:59 Intake Total 100 1040 Output Total 1850 2300 2100 Balance -1850 -2200 -1060 Intake: Intake, IV Titration 100 Amount Meropenem 1 gm In Sodium 100 Chloride 0.9% 100 ml @ 33 .333 mls/hr IVPB Q8HR@ 0600,1400,2200 [facility] Rx#: [id number] Oral 1040 Output: Urine 1850 2300 2100 Uretheral (Romeo) 2100 Other: Voiding Method Indwelling Catheter Indwelling Catheter Indwelling Catheter - Labs CBC & Chem 7: 09/28/23 06:39 09/28/23 06:39 Labs: Abnormal Lab Results - Last 24 Hours (Table) 09/28/23 09/28/23 09/28/23 Range/Units 06:39 06:39 07:30 RBC 3.50 L (4.40-5.60) X 10*6/uL Hgb 10.3 L (13.0-17.0) g/dL Hct 32.7 L (39.6-50.0) % MCHC 31.5 L (32.0-37.0) g/dL Sodium 134 L (135-145) mmol/L BUN 60.1 H (9.0-27.0) mg/dL Est GFR (CKD-EPI) 49 L (>=60) BUN/Creatinine Ratio 40.07 H (12.00-20.00) Ratio Glucose 192 H (70-110) mg/dL POC Glucose (mg/dL) 192 H (70-110) mg/dL 09/28/23 09/28/23 09/28/23 Range/Units 12:10 17:04 19:08 RBC (4.40-5.60) X 10*6/uL Hgb (13.0-17.0) g/dL Hct (39.6-50.0) % MCHC (32.0-37.0) g/dL Sodium (135-145) mmol/L BUN (9.0-27.0) mg/dL Est GFR (CKD-EPI) (>=60) BUN/Creatinine Ratio (12.00-20.00) Ratio Glucose (70-110) mg/dL POC Glucose (mg/dL) 235 H 408 H 472 H (70-110) mg/dL 09/28/23 Range/Units 22:09 RBC (4.40-5.60) X 10*6/uL Hgb (13.0-17.0) g/dL Hct (39.6-50.0) % MCHC (32.0-37.0) g/dL Sodium (135-145) mmol/L BUN (9.0-27.0) mg/dL Est GFR (CKD-EPI) (>=60) BUN/Creatinine Ratio (12.00-20.00) Ratio Glucose (70-110) mg/dL POC Glucose (mg/dL) 313 H (70-110) mg/dL Microbiology - Last 24 Hours (Table) 09/26/23 16:25 Blood Culture - Preliminary Blood 09/26/23 20:18 Urine Culture - Final Urine,Catheterized Donna albicans 09/26/23 02:02 Anaerobic Culture - Final Heel - Left 09/27/23 06:38 Blood Culture - Preliminary Blood 09/26/23 02:02 Gram Stain - Preliminary Foot - Left Wound Culture - Preliminary Gram Neg Bacilli 09/25/23 17:05 Blood Culture Gram Stain - Final Blood Blood Culture - Final Escherichia coli Assessment and Plan Time with Patient: Less than 30
[2023-09-29 08:48] LABS: African American GFR (CKD) 55 (>60 ml/min/1.73 sqM); Anion Gap 11 mmol/L; Blood Urea Nitrogen 69 mg/dL (9-20); Calcium 8.4 mg/dL (8.4-10.2); Carbon Dioxide 22 mmol/L (22-30); Chloride 100 mmol/L (98-107); Glucose 243 mg/dL (74-99); Magnesium 2.2 mg/dL (1.6-2.3); Non-African American GFR(CKD) 47 (>60 ml/min/1.73 sqM); Potassium 4.9 mmol/L (3.5-5.1); Sodium 133 mmol/L (137-145)
[2023-09-29] MEDS: ACETAMINOPHEN TAB 325 MG TAB PO PRN (10:27)
[2023-09-29 12:02] LABS: Glucose,Whole Blood 407 mg/dL (70-110)
--- NOTE | 2023-09-29 12:47 | P.PN ---
Subjective Patient is seen in follow-up for acute kidney injury on chronic kidney disease. Has Romeo catheter. Nonoliguric. Oral intake is good. Denies chest pain or shortness of breath. Renal function stable. Vital signs are stable. General: No acute distress. HEENT: Head exam is unremarkable. LUNGS: No audible rhonchi or wheezes. HEART: Rate and Rhythm are regular. ABDOMEN: Nontender. EXTREMITITES: No edema. Objective - Vital Signs Vital signs: Vital Signs Temp 98.4 F 09/29/23 11:59 Pulse 62 09/29/23 11:59 Resp 16 09/29/23 11:59 BP 120/61 09/29/23 11:59 Pulse Ox 98 09/29/23 11:59 FiO2 Intake & Output 09/28/23 09/29/23 09/29/23 18:59 06:59 18:59 Intake Total 100 1040 Output Total 2300 2099 2049 Balance -2199 -1059 Intake: Intake, IV Titration 100 Amount Meropenem 1 gm In Sodium 100 Chloride 0.9% 100 ml @ 33 .333 mls/hr IVPB Q8HR@ 0600,1400,2200 [facility] Rx#: [id number] Oral 1040 Output: Urine 2300 2099 2049 Uretheral (Romeo) 2100 Other: Voiding Method Indwelling Catheter Indwelling Catheter Indwelling Catheter - Labs CBC & Chem 7: 09/28/23 06:39 09/29/23 07:22 Labs: Abnormal Lab Results - Last 24 Hours (Table) 09/28/23 09/28/23 09/28/23 Range/Units 17:04 19:08 22:09 Sodium (137-145) mmol/L BUN (9-20) mg/dL Creatinine (0.66-1.25) mg/dL Glucose (74-99) mg/dL POC Glucose (mg/dL) 408 H 472 H 313 H (70-110) mg/dL 09/29/23 09/29/23 09/29/23 Range/Units 07:11 07:22 12:01 Sodium 133 L (137-145) mmol/L BUN 69 H (9-20) mg/dL Creatinine 1.46 H (0.66-1.25) mg/dL Glucose 243 H (74-99) mg/dL POC Glucose (mg/dL) 264 H 407 H (70-110) mg/dL Microbiology - Last 24 Hours (Table) 09/26/23 02:02 Gram Stain - Final Foot - Left Wound Culture - Final Pseudomonas aeruginosa Proteus mirabilis 09/26/23 16:25 Blood Culture - Preliminary Blood 09/26/23 20:18 Urine Culture - Final Urine,Catheterized Donna albicans 09/26/23 02:02 Anaerobic Culture - Final Heel - Left 09/27/23 06:38 Blood Culture - Preliminary Blood 09/25/23 17:05 Blood Culture Gram Stain - Final Blood Blood Culture - Final Escherichia coli Assessment and Plan Plan: Assessment: 1. Acute kidney injury secondary to ATN secondary to severe sepsis, hypovolemia, diuretics. Creatinine 2.05 on admission -1.46 today. No hydronephrosis noted on kidney ultrasound. 2. Chronic kidney disease stage II with baseline creatinine 1-1.2. Suspect diabetic kidney disease. UA dated 09/20/2023 showed UTI but no proteinuria. 3. Diabetes mellitus. 4. Hypertension with chronic kidney disease. Controlled. 5. Hypovolemic hyponatremia. Component of hypertonicity from hyperglycemia. 6. Severe sepsis secondary to UTI. Also has a nonhealing left foot wound. Blood cultures positive for E. coli. ID following. On IV antibiotics. Plan: Status post IV Lasix given 09/26/2023. Avoid nephrotoxins. Encourage oral intake. Continue to monitor renal function and urine output.
--- NOTE | 2023-09-29 13:36 | NM ---
EXAMINATION TYPE: NM bone 3 phase DATE OF EXAM: 09/29/2023 COMPARISON: 06/12/2023, x-ray 09/26/2023 CLINICAL INDICATION: Male, 72 years old with history of Left heel ulcer Abnormal x-ray; Triple phase bone scintigraphy was performed following the injection of 20.0 mCi Tc 99m MDP. Immedia te images and 5.5 hours post injection images acquired. FINDINGS: There is increased perfusion to the left foot. Soft tissue uptake is seen along margins of the calcan eus. Delayed imaging demonstrates focal abnormal uptake involving the calcaneus plantar surface. Incr eased uptake is also seen on delayed images along the medial malleolus. Findings are similar to prior exam. IMPRESSION: 1. Findings remain compatible with cellulitis and osteomyelitis of the calcaneus medial malleolus.
--- NOTE | 2023-09-29 15:07 | P.PN ---
Subjective Progress Note Date: 09/29/23 Principal diagnosis: Reason for follow-up is fever and bacteremia Patient is a 72-year-old male with a past medical history significant for diabetes mellitus hypertension hyperlipidemia [place] coronary artery disease long-term resident patient has been sent to the ER for evaluation of possible infection at the patient was noticed to have a fever of 100 F at the local long-term, patient did have a positive UA also noticed to have a positive blood culture with ESBL E. coli On today's evaluation that is 09/29/2023 the patient remains to be afebrile, the patient is breathing comfortably on room air and no need for oxygen. The patient denies shortness of breath denies any chest pain or cough, patient denies nausea/vomiting or diarrhea and no abdominal pain, the patient pain to the left heel wound area currently controlled Patient did have white count 7.85 as of 09/28/2023, creatinine 1.46, blood culture with ESBL E. coli, left heel with Pseudomonas aeruginosa and Proteus mirabilis, urine with yeast Objective - Vital Signs Vital signs: Vital Signs Temp 98.4 F 09/29/23 11:59 Pulse 62 09/29/23 11:59 Resp 16 09/29/23 11:59 BP 120/61 09/29/23 11:59 Pulse Ox 98 09/29/23 11:59 FiO2 Intake & Output 09/28/23 09/29/23 09/29/23 18:59 06:59 18:59 Intake Total 100 1040 Output Total 2300 2099 2049 Balance -2199 Intake: Intake, IV Titration 100 Amount Meropenem 1 gm In Sodium 100 Chloride 0.9% 100 ml @ 33 .333 mls/hr IVPB Q8HR@ 0600,1400,2200 [facility] Rx#: [id number] Oral 1040 Output: Urine 2300 2099 2049 Uretheral (Romeo) 2099 Other: Voiding Method Indwelling Catheter Indwelling Catheter Indwelling Catheter - Exam GENERAL DESCRIPTION: An elderly male up in bed in no distress RESPIRATORY SYSTEM: Unlabored breathing , clear to auscultation anteriorly HEART: S1 S2 regular rate and rhythm , ABDOMEN: Soft , no tenderness EXTREMITIES: Left heel wound necrotic no foul-smelling drainage - Labs CBC & Chem 7: 09/28/23 06:39 09/29/23 07:22 Labs: Abnormal Lab Results - Last 24 Hours (Table) 09/28/23 09/28/23 09/28/23 Range/Units 17:04 19:08 22:09 Sodium (137-145) mmol/L BUN (9-20) mg/dL Creatinine (0.66-1.25) mg/dL Glucose (74-99) mg/dL POC Glucose (mg/dL) 408 H 472 H 313 H (70-110) mg/dL 09/29/23 09/29/23 09/29/23 Range/Units 07:11 07:22 12:01 Sodium 133 L (137-145) mmol/L BUN 69 H (9-20) mg/dL Creatinine 1.46 H (0.66-1.25) mg/dL Glucose 243 H (74-99) mg/dL POC Glucose (mg/dL) 264 H 407 H (70-110) mg/dL Microbiology - Last 24 Hours (Table) 09/26/23 02:02 Gram Stain - Final Foot - Left Wound Culture - Final Pseudomonas aeruginosa Proteus mirabilis 09/26/23 16:25 Blood Culture - Preliminary Blood 09/26/23 20:18 Urine Culture - Final Urine,Catheterized Donna albicans 09/26/23 02:02 Anaerobic Culture - Final Heel - Left 09/27/23 06:38 Blood Culture - Preliminary Blood 09/25/23 17:05 Blood Culture Gram Stain - Final Blood Blood Culture - Final Escherichia coli Assessment and Plan (1) Bacteremia Current Visit: No Status: Acute Code(s): R78.81 - BACTEREMIA SNOMED Code(s): 8199513 Plan: 1patient with an episode of sepsis in this patient who did have a fever tachycardia mild elevated white count source is likely urinary patient did have significantly positive UA and likely from enteric gram-negative pathogen, patient chest x-ray with mostly pulmonary vascular congestion no significant respiratory symptoms to be suspicious for pneumonia. 2patient with a chronic nonhealing wound to the left heel area , did have evidence of some necrotic tissue and will benefit from surgical debridement versus surgical consult has been placed 3positive blood culture with ESBL E. coli , however the patient is growing Pseudomonas and Proteus from the left heel wound await a surgical debridement and deep culture 4bone scan is positive suggestive left heel osteomyelitis 5will need PICC line for outpatient IV antibiotic therapy Dictation was produced using [employer] dictation software. please excuse any grammatical, word or spelling errors. Time with Patient: Less than 30
--- NOTE | 2023-09-29 16:08 | P.PN ---
Subjective Progress Note Date: 09/29/23 Patient evaluated in the ER pending bed placement on the medical floor. He has indwelling catheter placed which was done in the ER on admission. There is concern for UTI as source of infection and urine culture has been ordered. Patient went for xray of the right foot wound which shows soft tissue edema with suspected ulceration posterior to the calcaneus, there is an area that corresponds to triple bone scan and is suspicious for osteomyelitis. Patient is on antibiotic coverage currently with IV zosyn and infectious disease consultation is in place. Renal function has improved with IV fluids currently 1.7, however sodium has decreased to 133. Chest xray was suspicious for vascular congestion and a proBNP was checked which results to 3090. Patient is on room air does not appear to be in over heart failure would recommending stopping the IV fluids and monitor closely at this time. He is having low blood glucose at insulin has been adjusted. 09/27/2023 Patient monitored on medical floor. More lethargic today. Blood culture is positive revealing gram negative bacilli. Urine culture pending. Remains with indwelling catheter. On IV meropenem. Labs today showing sodium 134, BUN 54, creatinine 1.7. 09/28/2023 Patient evaluated today sitting up in bed. Patient is agitated today. States he aches all over asking for pain medication. Indwelling catheter remains in place. Urine culture showing yeast, blood culture showing E.Coli and repeat blood culture pending. The left foot wound is also showing gram negative bacilli likely the source of infection. ID following closely. Had a f/u chest xray showing COPD, correlate for pulmonary fibrosis and left lower lobe infiltrate. Off IV fluids, sodium 134, creatinine 1.5. 09/29/2023 Patient evaluated today sitting up in bed. Less agitated. Patient went for bone scan today which reveals cellulitis and osteomyelitis of the calcaneus medial ma lleolus. Patient will need PICC line for outpatient antibiotics per Dr Fairbanks. Additionally vascular has been consulted for debridement of the heel wound. Patient has been establishing care with Dr. Huertas outpatient who will be consulted. Patient will need deep tissue cultures also. Creatinine 1.46 today. Blood glucose up to 400. Review of Systems Constitutional: Denied any fatigue denied any fever. Cardio vascular: denied any chest pain, palpitations Gastrointestinal: denied any nausea, vomiting, diarrhea Pulmonary: Denied any shortness of breath cough Neurologic denied any new focal deficits All inpatient medications were reviewed and appropriate changes in these medications as dictated in the interval history and assessment and plan. PHYSICAL EXAMINATION: GENERAL: The patient is alert and oriented x2-3, not in any acute distress. Well developed, well nourished. HEENT: Pupils are round and equally reacting to light. EOMI. No scleral icterus. No conjunctival pallor. Normocephalic, atraumatic. No pharyngeal erythema. No thyromegaly. CARDIOVASCULAR: S1 and S2 present. No murmurs, rubs, or gallops. PULMONARY: Chest is clear to auscultation, no wheezing or crackles. ABDOMEN: Soft, nontender, nondistended, normoactive bowel sounds. No palpable organomegaly. MUSCULOSKELETAL: No joint swelling or deformity. EXTREMITIES: No cyanosis, clubbing, or pedal edema. NEUROLOGICAL: Gross neurological examination did not reveal any focal deficits. Generalized weakness. SKIN: No rashes. Lower extremity dressing in place. Ulceration to the left heel with surrounding erythema. Assessment Acute kidney injury from ATN/sepsis and hypovolemia Left foot wound non-healing with concern for osteomyelitis with cellulitis culture showing gram negative likely source of the bacteremia E.Coli bacteremia insulin-dependent diabetes mellitus uncontrolled with hyper/hypoglycemia Abnormal urinalysis concern for acute UTI and sepsis present on admission urine culture showing donna. Urinary retention requiring IDC placement Diabetic nephropathy Chronic kidney disease stage II Hypertension Hyperlipidemia Hx of coronary artery disease and prior CABG/Stenting Hypothyroidism Gastroesophageal reflux disease Former smoker GI prophylaxis DVT prophylaxis Full Code Plan Avoid nephrotoxic agents Nephrology following renal function Continue on IV antibiotics, ID following cultures Wound culture pending currently growing gram negative PICC line has been ordered patient will need IV antibiotics on discharge. IV fluids discontinued patient given dose of IV lasix x 1 remains off fluids at this time with improvement in renal function. Vascular has been consulted for surgical debridement and deep tissue cultures of the left heel wound. Due to the hypoglycemia recommend to stop scheduled insulin and continue with accuchecks ACHS and sliding scale. Adjustments made pending clinical course Repeat blood culture is negative so far. PT/OT consultation patient will return to ECF on discharge. Repeat labs in AM Continue all other medications and supportive care The impression and plan of care has been dictated by Silvia Ralph, Nurse Practitioner as directed. Dr. Karlie MD I have performed a history and physical examination and medical decision making of this patient, discussed the same with the dictator, and agree with the dictators assessment and plan as written, documented as a scribe. Based on total visit time, I have performed more than 50% of this visit. Objective - Vital Signs Vital signs: Vital Signs Temp 98.4 F 09/29/23 07:09 Pulse 64 09/29/23 07:09 Resp 16 09/29/23 07:09 BP 152/61 09/29/23 07:09 Pulse Ox 92 L 09/29/23 07:09 FiO2 Intake & Output 09/28/23 09/29/23 09/29/23 18:59 06:59 18:59 Intake Total 100 1040 Output Total 2300 2100 1450 Balance -2200 -1060 -1450 Intake: Intake, IV Titration 100 Amount Meropenem 1 gm In Sodium 100 Chloride 0.9% 100 ml @ 33 .333 mls/hr IVPB Q8HR@ 0600,1400,2200 [facility] Rx#: [id number] Oral 1040 Output: Urine 2300 2100 1450 Uretheral (Romeo) 2100 Other: Voiding Method Indwelling Catheter Indwelling Catheter - Labs CBC & Chem 7: 09/28/23 06:39 09/29/23 07:22 Labs: Abnormal Lab Results - Last 24 Hours (Table) 09/28/23 09/28/23 09/28/23 Range/Units 06:39 06:39 12:10 RBC 3.50 L (4.40-5.60) X 10*6/uL Hgb 10.3 L (13.0-17.0) g/dL Hct 32.7 L (39.6-50.0) % MCHC 31.5 L (32.0-37.0) g/dL Sodium 134 L (135-145) mmol/L BUN 60.1 H (9.0-27.0) mg/dL Est GFR (CKD-EPI) 49 L (>=60) BUN/Creatinine Ratio 40.07 H (12.00-20.00) Ratio Glucose 192 H (70-110) mg/dL POC Glucose (mg/dL) 235 H (70-110) mg/dL 09/28/23 09/28/23 09/28/23 Range/Units 17:04 19:08 22:09 RBC (4.40-5.60) X 10*6/uL Hgb (13.0-17.0) g/dL Hct (39.6-50.0) % MCHC (32.0-37.0) g/dL Sodium (135-145) mmol/L BUN (9.0-27.0) mg/dL Est GFR (CKD-EPI) (>=60) BUN/Creatinine Ratio (12.00-20.00) Ratio Glucose (70-110) mg/dL POC Glucose (mg/dL) 408 H 472 H 313 H (70-110) mg/dL 09/29/23 Range/Units 07:11 RBC (4.40-5.60) X 10*6/uL Hgb (13.0-17.0) g/dL Hct (39.6-50.0) % MCHC (32.0-37.0) g/dL Sodium (135-145) mmol/L BUN (9.0-27.0) mg/dL Est GFR (CKD-EPI) (>=60) BUN/Creatinine Ratio (12.00-20.00) Ratio Glucose (70-110) mg/dL POC Glucose (mg/dL) 264 H (70-110) mg/dL Microbiology - Last 24 Hours (Table) 09/26/23 16:25 Blood Culture - Preliminary Blood 09/26/23 20:18 Urine Culture - Final Urine,Catheterized Donna albicans 09/26/23 02:02 Anaerobic Culture - Final Heel - Left 09/27/23 06:38 Blood Culture - Preliminary Blood 09/26/23 02:02 Gram Stain - Preliminary Foot - Left Wound Culture - Preliminary Gram Neg Bacilli 09/25/23 17:05 Blood Culture Gram Stain - Final Blood Blood Culture - Final Escherichia coli Assessment and Plan Time with Patient: Less than 30
[2023-09-29 17:05] LABS: Glucose,Whole Blood 351 mg/dL (70-110)
[2023-09-29] MEDS: FERROUS SULFATE 325 MG TAB PO SCH (18:03)
[2023-09-29] MEDS: ASPIRIN 81 MG PO SCH (18:03)
[2023-09-29] MEDS ORDERED: ZINC OXIDE PASTE (Z-GUARD) 1 APPLIC APPLIC TOPICAL PRN (18:29)
[2023-09-29 20:44] LABS: Glucose,Whole Blood 415 mg/dL (70-110)
[2023-09-29] MEDS: GABAPENTIN 400 MG CAP PO SCH (20:46)
[2023-09-29] MEDS: ATORVASTATIN 80 MG TAB PO SCH (20:46)
[2023-09-29] MEDS: INSULIN DETEMIR (LEVEMIR) 100 UNIT/ML SYR SQ SCH (20:47)
[2023-09-29] MEDS ORDERED: INSULIN DETEMIR (LEVEMIR) 100 UNIT/ML SYR SQ SCH (21:00)
[2023-09-30] MEDS: LEVOTHYROXINE 137 MCG TAB PO SCH (06:10)
[2023-09-30] MEDS: MEROPENEM 1 GM in SODIUM CHLORIDE 0.9% 100 ML IVPB SCH ×3 (06:10→22:39)
[2023-09-30 07:27] LABS: Glucose,Whole Blood 198 mg/dL (70-110)
[2023-09-30] MEDS: HEPARIN SODIUM,PORCINE 5,000 UNIT/ML 1 ML VIAL SQ SCH ×2 (08:16→20:55)
[2023-09-30] MEDS: FAMOTIDINE 20 MG TAB PO SCH (08:16)
[2023-09-30] MEDS: METOPROLOL TARTRATE 50 MG TAB PO SCH ×2 (08:16→16:43)
[2023-09-30] MEDS: ISOSORBIDE MONONITRATE ER 30 MG TAB.ER.24H PO SCH (08:16)
[2023-09-30] MEDS: amLODIPine 5 MG TAB PO SCH ×2 (08:16→20:54)
[2023-09-30] MEDS: INSULIN ASPART (NovoLOG) 100 UNIT/ML VIAL SQ SCH ×7 (08:16→20:54)
[2023-09-30] MEDS: HYDROcodone/APAP 7.5-325MG 1 EACH TAB PO PRN ×2 (08:16→16:43)
[2023-09-30] MEDS: ESCITALOPRAM 10 MG TAB PO SCH (08:17)
[2023-09-30] MEDS: TROSPIUM CHLORIDE 20 MG TABLET PO SCH (08:17)
--- NOTE | 2023-09-30 11:00 | P.GSCN ---
History of Present Illness Consult date: 09/30/23 History of present illness: Patient is a 72-year-old male with a past medical history of diabetes, hypertension, hyperlipidemia, coronary artery disease with CABG who has a heel wound of his left. He is not certain really how long it has been going on for. He has a urinary infection as well as a bacteremia with multiple different strains bacteria between his blood and heel wound. He states that when he elevates his legs he has pain and then he has to having them over the site of the bed. Has walked previously but since the heel wound he's been told he is not allowed to walk. He states he has pain. Past Medical History Past Medical History: Coronary Artery Disease (CAD), Diabetes Mellitus, GERD/Reflux, Hyperlipidemia, Hypertension, Myocardial Infarction (AL), Thyroid Disorder Additional Past Medical History / Comment(s): neuropathy Last Myocardial Infarction Date:: unknown History of Any Multi-Drug Resistant Organisms: MRSA Year Discovered:: 06/14/23 MDRO Source:: Left Foot Past Surgical History: Appendectomy, Coronary Bypass/CABG, Heart Catheterization With Stent Additional Past Surgical History / Comment(s): Sister relays, "He had peripheral artery surgery too." Past Anesthesia/Blood Transfusion Reactions: No Reported Reaction Date of Last Stent Placement:: unknown Past Psychological History: Depression Smoking Status: Former smoker Past Alcohol Use History: Daily Past Drug Use History: Marijuana - Past Family History Father Family Medical History: Congestive Heart Failure (CHF) Mother Additional Family Medical History / Comment(s): of old age. Medications and Allergies Home Medications Medication Instructions Recorded Confirmed Type Aspirin [Lavalette Aspirin EC] 81 mg PO DAILY@1700 03/13/19 09/24/23 History Ferrous Sulfate [Iron (65 MG 325 mg PO DAILY@1700 03/13/19 09/24/23 History Elemental)] Isosorbide Mononitrate ER [Imdur] 30 mg PO DAILY@0800 03/13/19 09/24/23 History Levothyroxine Sodium [Synthroid] 137 mcg PO DAILY 03/13/19 09/24/23 History Pantoprazole Sodium [Protonix] 40 mg PO DAILY@0600 03/13/19 09/24/23 History Ammonium Lactate Cream [Lac-Hydrin 1 applic TOPICAL BID PRN 04/13/23 09/24/23 History 12% Cream] Atorvastatin [Lipitor] 80 mg PO HS 04/13/23 09/24/23 History Empagliflozin [Jardiance] 25 mg PO DAILY@0800 04/13/23 09/24/23 History Escitalopram [Lexapro] 10 mg PO DAILY@0800 04/13/23 09/24/23 History Solifenacin Succinate [Vesicare] 5 mg PO DAILY@0800 04/13/23 09/24/23 History ALPRAZolam [Xanax] 0.25 mg PO DAILY PRN 09/24/23 09/24/23 History Acetaminophen [Tylenol 8 Hour] 650 mg PO Q4HR PRN 09/24/23 09/24/23 History Cefuroxime [Ceftin] 250 mg PO BID@0800,1700 09/24/23 09/24/23 History Collagenase [Santyl Ointment] 1 applic TOPICAL DAILY 09/24/23 09/24/23 History Furosemide [Lasix] 40 mg PO DAILY@0800 09/24/23 09/24/23 History Gabapentin [Neurontin] 400 mg PO HS@2130 09/24/23 09/24/23 History Glucerna Shake 1 can PO DAILY@1500 09/24/23 09/24/23 History HYDROcodone/APAP 7.5-325MG [[place] 1 tab PO Q6H PRN 09/24/23 09/24/23 History 7.5-325] INSULIN ASPART (NovoLOG) [NovoLOG 10 unit SQ AC-TID 09/24/23 09/24/23 History (formulary)] INSULIN ASPART (NovoLOG) [NovoLOG See Protocol SQ ACHS 09/24/23 09/24/23 History (formulary)] Insulin Detemir (Levemir) [Levemir] 20 unit SQ HS@2100 09/24/23 09/24/23 History Insulin Detemir (Levemir) [Levemir] 30 unit SQ DAILY@0800 09/24/23 09/24/23 History Liquacel 30 ml PO BID@0800,1700 09/24/23 09/24/23 History Magnesium Hydroxide [Milk of 7,200 mg PO Q48H PRN 09/24/23 09/24/23 History Magnesia Concentrate] Metoprolol Tartrate [Lopressor] 50 mg PO BID@0800,1700 09/24/23 09/24/23 History Na Phos,M-B/Na Phos,Di-Ba [Fleet 133 ml RECTAL DAILY PRN 09/24/23 09/24/23 History Adult] Nystatin 100,000Unit/gm Cream 1 applic TOPICAL BID 09/24/23 09/24/23 History [Mycostatin Cream] amLODIPine [Norvasc] 5 mg PO DAILY@0800 09/24/23 09/24/23 History bisacodyL [Dulcolax] 10 mg RECTAL DAILY PRN 09/24/23 09/24/23 History metFORMIN HCL [Glucophage] 1,000 mg PO DAILY@1700 09/24/23 09/24/23 History Allergies Allergy/AdvReac Type Severity Reaction Status Date / Time No Known Allergies Allergy Verified 09/24/23 18:35 Surgical - Exam Vital Signs Temp Pulse Resp BP Pulse Ox 98.3 F 67 18 126/65 97 09/24/23 13:24 09/24/23 13:24 09/24/23 13:24 09/24/23 13:24 09/24/23 13:24 Gen is a pleasant cooperative elderly male in no acute distress. Heart appears regular at this time. Lungs are clear. Abdomen is soft or cyanosis. There is mild bilateral lower extremity edema. Left heel wound with evidence of necrotic tissue. No obvious drainage. No easily palpable pulses Results - Labs 09/28/23 06:39 09/29/23 07:22 Abnormal Lab Results - Last 24 Hours (Table) 09/29/23 09/29/23 09/29/23 Range/Units 12: 17:04 20:42 POC Glucose (mg/dL) 407 H 351 H 415 H (70-110) mg/dL 09/30/23 Range/Units 07:23 POC Glucose (mg/dL) 198 H (70-110) mg/dL Microbiology - Last 24 Hours (Table) 09/26/23 16:25 Blood Culture - Preliminary Blood 09/27/23 06:38 Blood Culture - Preliminary Blood 09/26/23 02:02 Gram Stain - Final Foot - Left Wound Culture - Final Pseudomonas aeruginosa Proteus mirabilis Assessment and Plan Assessment: Left heel wound, chronic nonhealing with evidence of osteomyelitis Positive culture Pseudomonas and Proteus from left heel wound Bacteremia ESBL E. coli Urosepsis Plan: Discussion had with the patient regarding his left heel wound. We'll plan for debridement with deep culture we'll also evaluate vascular studies to see if there is any revascularization potential to aid in wound healing. We'll plan to get a schedule for Monday, 10/02 pending OR availability
--- NOTE | 2023-09-30 11:47 | P.PN ---
Subjective Patient is seen for follow-up for acute kidney injury and chronic kidney disease. Serum creatinine decreased to 1.4 mg/dL yesterday from 2.0 on admission next No complaints today. Objective - Vital Signs Vital signs: Vital Signs Temp 98.8 F 09/30/23 07:00 Pulse 62 09/30/23 07:00 Resp 17 09/30/23 07:00 BP 173/70 09/30/23 07:00 Pulse Ox 98 09/30/23 07:00 FiO2 Intake & Output 09/29/23 09/30/23 09/30/23 18:59 06:59 18:59 Intake Total 460 120 Output Total 3000 2700 Balance -3000 -2240 120 Weight 77.111 kg Intake: Intake, IV Titration 100 Amount Meropenem 1 gm In Sodium 100 Chloride 0.9% 100 ml @ 33 .333 mls/hr IVPB Q8HR@ 0600,1400,2200 [facility] Rx#: [id number] Oral 360 120 Output: Urine 3000 2700 Other: Voiding Method Indwelling Catheter Indwelling Catheter - Exam Patient is comfortable awake not in any acute distress Examination of the heart S1 and S2 Examination lungs decreased breath sounds at the bases Abdomen is soft nontender Examination of the lower extremities shows no significant edema [employer]ING [employer] exam grossly intact - Labs CBC & Chem 7: 09/28/23 06:39 09/29/23 07:22 Labs: Abnormal Lab Results - Last 24 Hours (Table) 09/29/23 09/29/23 09/29/23 Range/Units 12: 17:04 20:42 POC Glucose (mg/dL) 407 H 351 H 415 H (70-110) mg/dL 09/30/23 Range/Units 07:23 POC Glucose (mg/dL) 198 H (70-110) mg/dL Microbiology - Last 24 Hours (Table) 09/26/23 16:25 Blood Culture - Preliminary Blood 09/27/23 06:38 Blood Culture - Preliminary Blood 09/26/23 02:02 Gram Stain - Final Foot - Left Wound Culture - Final Pseudomonas aeruginosa Proteus mirabilis Assessment and Plan Assessment: 1. Acute kidney injury secondary to ATN secondary to severe sepsis, hypovolemia, diuretics. Creatinine 2.05 on admission -1.46 today. No hydronephrosis noted on kidney ultrasound. 2. Chronic kidney disease stage II with baseline creatinine 1-1.2. Suspect diabetic kidney disease. UA dated 09/20/2023 showed UTI but no proteinuria. 3. Diabetes mellitus. 4. Hypertension with chronic kidney disease. Controlled. 5. Hypovolemic hyponatremia. Component of hypertonicity from hyperglycemia. 6. Severe sepsis secondary to UTI. Also has a nonhealing left foot wound. Blood cultures positive for E. coli. ID following. On IV antibiotics. Plan: Repeat labs in a.m. Encourage increased oral intake
--- NOTE | 2023-09-30 11:59 | P.PN ---
Subjective Progress Note Date: 09/30/23 Patient evaluated in the ER pending bed placement on the medical floor. He has indwelling catheter placed which was done in the ER on admission. There is concern for UTI as source of infection and urine culture has been ordered. Patient went for xray of the right foot wound which shows soft tissue edema with suspected ulceration posterior to the calcaneus, there is an area that corresponds to triple bone scan and is suspicious for osteomyelitis. Patient is on antibiotic coverage currently with IV zosyn and infectious disease consultation is in place. Renal function has improved with IV fluids currently 1.7, however sodium has decreased to 133. Chest xray was suspicious for vascular congestion and a proBNP was checked which results to 3090. Patient is on room air does not appear to be in over heart failure would recommending stopping the IV fluids and monitor closely at this time. He is having low blood glucose at insulin has been adjusted. 09/27/2023 Patient monitored on medical floor. More lethargic today. Blood culture is positive revealing gram negative bacilli. Urine culture pending. Remains with indwelling catheter. On IV meropenem. Labs today showing sodium 134, BUN 54, creatinine 1.7. 09/28/2023 Patient evaluated today sitting up in bed. Patient is agitated today. States he aches all over asking for pain medication. Indwelling catheter remains in place. Urine culture showing yeast, blood culture showing E.Coli and repeat blood culture pending. The left foot wound is also showing gram negative bacilli likely the source of infection. ID following closely. Had a f/u chest xray showing COPD, correlate for pulmonary fibrosis and left lower lobe infiltrate. Off IV fluids, sodium 134, creatinine 1.5. 09/29/2023 Patient evaluated today sitting up in bed. Less agitated. Patient went for bone scan today which reveals cellulitis and osteomyelitis of the calcaneus medial ma lleolus. Patient will need PICC line for outpatient antibiotics per Dr Fairbanks. Additionally vascular has been consulted for debridement of the heel wound. Patient has been establishing care with Dr. Huertas outpatient who will be consulted. Patient will need deep tissue cultures also. Creatinine 1.46 today. Blood glucose up to 400. 09/30/2023 Patient is evaluated today sitting up in bed. Indwelling catheter remains with 3.5 L of urine output overnight. Nephrology following. Patient was evaluated by vascular with plans for surgical debridement and deep tissue cultures on Monday. Patient will need PICC Line placed for outpatient antibiotics this will need to be done Monday as there is no IR here this weekend to place. Patient remains on IV meropenem. Wound culture showing pseudomonas and proteus, blood culture showing e.coli and urine showing yeast. Review of Systems Constitutional: Denied any fatigue denied any fever. Cardio vascular: denied any chest pain, palpitations Gastrointestinal: denied any nausea, vomiting, diarrhea Pulmonary: Denied any shortness of breath cough Neurologic denied any new focal deficits All inpatient medications were reviewed and appropriate changes in these medications as dictated in the interval history and assessment and plan. PHYSICAL EXAMINATION: GENERAL: The patient is alert and oriented x2-3, not in any acute distress. Well developed, well nourished. HEENT: Pupils are round and equally reacting to light. EOMI. No scleral icterus. No conjunctival pallor. Normocephalic, atraumatic. No pharyngeal erythema. No thyromegaly. CARDIOVASCULAR: S1 and S2 present. No murmurs, rubs, or gallops. PULMONARY: Chest is clear to auscultation, no wheezing or crackles. ABDOMEN: Soft, nontender, nondistended, normoactive bowel sounds. No palpable o rganomegaly. MUSCULOSKELETAL: No joint swelling or deformity. EXTREMITIES: No cyanosis, clubbing, or pedal edema. NEUROLOGICAL: Gross neurological examination did not reveal any focal deficits. Generalized weakness. SKIN: No rashes. Lower extremity dressing in place. Ulceration to the left heel with surrounding erythema. Assessment Acute kidney injury from ATN/sepsis and hypovolemia Left foot wound non-healing with concern for osteomyelitis with cellulitis culture showing gram negative likely source of the bacteremia E.Coli bacteremia insulin-dependent diabetes mellitus uncontrolled with hyper/hypoglycemia Abnormal urinalysis concern for acute UTI and sepsis present on admission urine culture showing alyssa. Urinary retention requiring IDC placement Diabetic nephropathy Chronic kidney disease stage II Hypertension Hyperlipidemia Hx of coronary artery disease and prior CABG/Stenting Hypothyroidism Gastroesophageal reflux disease Former smoker GI prophylaxis DVT prophylaxis Full Code Plan Avoid nephrotoxic agents Nephrology following renal function Continue on IV antibiotics, ID following cultures PICC line has been ordered patient will need IV antibiotics on discharge. IV fluids discontinued patient given dose of IV lasix x 1 remains off fluids at this time with improvement in renal function. Vascular planning for surgical debridement and deep tissue cultures on monday. Patient will undergo arterial ultrasound today. Due to the hypoglycemia recommend to stop scheduled insulin and continue with accuchecks ACHS and sliding scale. Adjustments made pending clinical course Repeat blood culture is negative so far. PT/OT consultation patient will return to ECF on discharge. Repeat labs in AM Continue all other medications and supportive care The impression and plan of care has been dictated by Silvia Ralph, Nurse Practitioner as directed. Dr. Karlie MD I have performed a history and physical examination and medical decision making of this patient, discussed the same with the dictator, and agree with the di ctators assessment and plan as written, documented as a scribe. Based on total visit time, I have performed more than 50% of this visit. Objective - Vital Signs Vital signs: Vital Signs Temp 98.1 F 09/30/23 02:00 Pulse 59 L 09/30/23 02:00 Resp 16 09/30/23 02:00 BP 127/66 09/30/23 02:00 Pulse Ox 96 09/29/23 20:00 FiO2 Intake & Output 09/29/23 09/30/23 09/30/23 18:59 06:59 18:59 Intake Total 460 Output Total 3000 2700 Balance -3000 -2240 Weight 77.111 kg Intake: Intake, IV Titration 100 Amount Meropenem 1 gm In Sodium 100 Chloride 0.9% 100 ml @ 33 .333 mls/hr IVPB Q8HR@ 0600,1400,2200 [facility] Rx#: [id number] Oral 360 Output: Urine 3000 2700 Other: Voiding Method Indwelling Catheter Indwelling Catheter - Labs CBC & Chem 7: 09/28/23 06:39 09/29/23 07:22 Labs: Abnormal Lab Results - Last 24 Hours (Table) 09/29/23 09/29/23 09/29/23 Range/Units 07:22 12: 17:04 Sodium 133 L (137-145) mmol/L BUN 69 H (9-20) mg/dL Creatinine 1.46 H (0.66-1.25) mg/dL Glucose 243 H (74-99) mg/dL POC Glucose (mg/dL) 407 H 351 H (70-110) mg/dL 09/29/23 09/30/23 Range/Units 20:42 07:23 Sodium (137-145) mmol/L BUN (9-20) mg/dL Creatinine (0.66-1.25) mg/dL Glucose (74-99) mg/dL POC Glucose (mg/dL) 415 H 198 H (70-110) mg/dL Microbiology - Last 24 Hours (Table) 09/26/23 16:25 Blood Culture - Preliminary Blood 09/27/23 06:38 Blood Culture - Preliminary Blood 09/26/23 02:02 Gram Stain - Final Foot - Left Wound Culture - Final Pseudomonas aeruginosa Proteus mirabilis Assessment and Plan Time with Patient: Less than 30
[2023-09-30 12:25] LABS: Glucose,Whole Blood 216 mg/dL (70-110)
--- NOTE | 2023-09-30 12:32 | US ---
EXAMINATION TYPE: US arterial LE single level DATE OF EXAM: 09/30/2023 12:16 PM CLINICAL INDICATION: Male, 72 years old with history of foot wound; Non-healing left heel wound History of: Smoker: Previous Hypertension: Yes Diabetic: Yes Hyperlipidemia: No TIA/CVA: No Previous Vascular Surgery: Heart bypass CAD: Yes WV: No Vascular Ulcers: Left Doppler Waveforms: Monophasic waveforms are evident bilaterally. Right Brachial Pressure: 127 Left Brachial Pressure: Deferred due to IV site Ankle-Brachial Indices: Right: 1.3 PT- please note that DP pressures could not be occluded Left: Could not be occluded Toe Brachial Indices: Right: 0.6 Left: 0.2 IMPRESSION: 1. Severe stenosis into the distal digits bilaterally. 2. Exam is limited with nonvisualization of left lower extremity trifurcation vessels right dorsalis pedis artery.
[2023-09-30] MEDS: ASPIRIN 81 MG PO SCH (16:43)
[2023-09-30] MEDS: FERROUS SULFATE 325 MG TAB PO SCH (16:43)
[2023-09-30 17:41] LABS: Glucose,Whole Blood 341 mg/dL (70-110)
[2023-09-30 20:33] LABS: Glucose,Whole Blood 306 mg/dL (70-110)
[2023-09-30] MEDS: INSULIN DETEMIR (LEVEMIR) 100 UNIT/ML SYR SQ SCH (20:54)
[2023-09-30] MEDS: ATORVASTATIN 80 MG TAB PO SCH (20:54)
[2023-09-30] MEDS: GABAPENTIN 400 MG CAP PO SCH (20:54)
[2023-10-01] MEDS: LEVOTHYROXINE 137 MCG TAB PO SCH (05:43)
[2023-10-01] MEDS: MEROPENEM 1 GM in SODIUM CHLORIDE 0.9% 100 ML IVPB SCH ×3 (05:43→22:29)
[2023-10-01 07:10] LABS: Glucose,Whole Blood 196 mg/dL (70-110)
[2023-10-01 07:49] LABS: Basophils # (A) 0.1 k/uL (0-0.2); Basophils % (A) 1 %; Eosinophils # (A) 0.5 k/uL (0-0.7); Eosinophils % (A) 6 %; HCT 36.9 % (39.0-53.0); HGB 11.7 gm/dL (13.0-17.5); Hypochromasia Slight; Lymphocytes # (A) 1.4 k/uL (1.0-4.8); Lymphocytes % (A) 15 %; MCHC 31.6 g/dL (31.0-37.0); MCV 95.1 fL (80.0-100.0); Mean Platelet Volume 8.4; Monocytes # (A) 0.5 k/uL (0-1.0); Monocytes % (A) 6 %; Neutrophils # (A) 6.7 k/uL (1.3-7.7); Neutrophils % (A) 72 %; Platelet Count 347 k/uL (150-450); RBC 3.88 m/uL (4.30-5.90); RDW 13.5 % (11.5-15.5); WBC 9.4 k/uL (3.8-10.6)
[2023-10-01] MEDS: HEPARIN SODIUM,PORCINE 5,000 UNIT/ML 1 ML VIAL SQ SCH ×2 (07:54→20:45)
[2023-10-01] MEDS: INSULIN ASPART (NovoLOG) 100 UNIT/ML VIAL SQ SCH ×7 (07:54→20:45)
[2023-10-01] MEDS: FAMOTIDINE 20 MG TAB PO SCH (07:54)
[2023-10-01] MEDS: TROSPIUM CHLORIDE 20 MG TABLET PO SCH (07:55)
[2023-10-01] MEDS: ESCITALOPRAM 10 MG TAB PO SCH (07:55)
[2023-10-01] MEDS: amLODIPine 5 MG TAB PO SCH ×2 (07:55→20:44)
[2023-10-01] MEDS: ISOSORBIDE MONONITRATE ER 30 MG TAB.ER.24H PO SCH (07:55)
[2023-10-01] MEDS: METOPROLOL TARTRATE 50 MG TAB PO SCH ×2 (07:55→16:44)
[2023-10-01] MEDS: HYDROcodone/APAP 7.5-325MG 1 EACH TAB PO PRN ×2 (10:02→20:44)
[2023-10-01] MEDS: ALPRAZolam 0.25 MG TAB PO PRN (10:05)
--- NOTE | 2023-10-01 11:13 | P.PN ---
Subjective Progress Note Date: 10/01/23 Patient evaluated in the ER pending bed placement on the medical floor. He has indwelling catheter placed which was done in the ER on admission. There is concern for UTI as source of infection and urine culture has been ordered. Patient went for xray of the right foot wound which shows soft tissue edema with suspected ulceration posterior to the calcaneus, there is an area that corresponds to triple bone scan and is suspicious for osteomyelitis. Patient is on antibiotic coverage currently with IV zosyn and infectious disease consultation is in place. Renal function has improved with IV fluids currently 1.7, however sodium has decreased to 133. Chest xray was suspicious for vascular congestion and a proBNP was checked which results to 3090. Patient is on room air does not appear to be in over heart failure would recommending stopping the IV fluids and monitor closely at this time. He is having low blood glucose at insulin has been adjusted. 09/27/2023 Patient monitored on medical floor. More lethargic today. Blood culture is positive revealing gram negative bacilli. Urine culture pending. Remains with indwelling catheter. On IV meropenem. Labs today showing sodium 134, BUN 54, creatinine 1.7. 09/28/2023 Patient evaluated today sitting up in bed. Patient is agitated today. States he aches all over asking for pain medication. Indwelling catheter remains in place. Urine culture showing yeast, blood culture showing E.Coli and repeat blood culture pending. The left foot wound is also showing gram negative bacilli likely the source of infection. ID following closely. Had a f/u chest xray showing COPD, correlate for pulmonary fibrosis and left lower lobe infiltrate. Off IV fluids, sodium 134, creatinine 1.5. 09/29/2023 Patient evaluated today sitting up in bed. Less agitated. Patient went for bone scan today which reveals cellulitis and osteomyelitis of the calcaneus medial ma lleolus. Patient will need PICC line for outpatient antibiotics per Dr Fairbanks. Additionally vascular has been consulted for debridement of the heel wound. Patient has been establishing care with Dr. Huertas outpatient who will be consulted. Patient will need deep tissue cultures also. Creatinine 1.46 today. Blood glucose up to 400. 09/30/2023 Patient is evaluated today sitting up in bed. Indwelling catheter remains with 3.5 L of urine output overnight. Nephrology following. Patient was evaluated by vascular with plans for surgical debridement and deep tissue cultures on Monday. Patient will need PICC Line placed for outpatient antibiotics this will need to be done Monday as there is no IR here this weekend to place. Patient remains on IV meropenem. Wound culture showing pseudomonas and proteus, blood culture showing e.coli and urine showing yeast. 10/01/2023 Patient evaluated today resting in bed. Complains of pain to the left leg, he is receiving norco q6 has not received since yesterday. Patient with E.Coli bacteremia and repeat blood culture is negative so far. Wound culture to the left heel growing pseudomonas and proteus plan for surgical debridement with vascular tomorrow. Patient needs PICC line scheduled for tomorrow also. Continues on IV meropenem. Arterial US completed yesterday reveals severe stenosis into the distal digits bilaterally. Review of Systems Constitutional: Denied any fatigue denied any fever. Cardio vascular: denied any chest pain, palpitations Gastrointestinal: denied any nausea, vomiting, diarrhea Pulmonary: Denied any shortness of breath cough Neurologic denied any new focal deficits All inpatient medications were reviewed and appropriate changes in these medications as dictated in the interval history and assessment and plan. PHYSICAL EXAMINATION: GENERAL: The patient is alert and oriented x2-3, not in any acute distress. Well developed, well nourished. HEENT: Pupils are round and equally reacting to light. EOMI. No scleral icterus. No conjunctival pallor. Normocephalic, atraumatic. No pharyngeal erythema. No thyromegaly. CARDIOVASCULAR: S1 and S2 present. No murmurs, rubs, or gallops. PULMONARY: Chest is clear to auscultation, no wheezing or crackles. ABDOMEN: Soft, nontender, nondistended, normoactive bowel sounds. No palpable organomegaly. MUSCULOSKELETAL: No joint swelling or deformity. EXTREMITIES: No cyanosis, clubbing, or pedal edema. NEUROLOGICAL: Gross neurological examination did not reveal any focal deficits. Generalized weakness. SKIN: No rashes. Lower extremity dressing in place. Ulceration to the left heel with surrounding erythema. Assessment Acute kidney injury from ATN/sepsis and hypovolemia Left foot wound non-healing with concern for osteomyelitis with cellulitis culture showing gram negative likely source of the bacteremia E.Coli bacteremia insulin-dependent diabetes mellitus uncontrolled with hyper/hypoglycemia Abnormal urinalysis concern for acute UTI and sepsis present on admission urine culture showing alyssa. Urinary retention requiring IDC placement Diabetic nephropathy Chronic kidney disease stage II Hypertension Hyperlipidemia Hx of coronary artery disease and prior CABG/Stenting Hypothyroidism Gastroesophageal reflux disease Former smoker GI prophylaxis DVT prophylaxis Full Code Plan Avoid nephrotoxic agents Nephrology following renal function Continue on IV antibiotics, ID following cultures PICC line has been ordered patient will need IV antibiotics on discharge. IV fluids discontinued patient given dose of IV lasix x 1 remains off fluids at this time with improvement in renal function. Vascular planning for surgical debridement and deep tissue cultures on monday. Due to the hypoglycemia recommend to stop scheduled insulin and continue with accuchecks ACHS and sliding scale. Adjustments made pending clinical course Repeat blood culture is negative so far. PT/OT consultation patient will return to ECF on discharge. Repeat labs in AM Continue all other medications and supportive care The impression and plan of care has been dictated by Silvia Ralph, Nurse Practitioner as directed. Dr. Karlie MD I have performed a history and physical examination and medical decision making of this patient, discussed the same with the dictator, and agree with the dictators assessment and plan as written, documented as a scribe. Based on total visit time, I have performed more than 50% of this visit. Objective - Vital Signs Vital signs: Vital Signs Temp 98.3 F 10/01/23 07:00 Pulse 58 L 10/01/23 10:06 Resp 18 10/01/23 07:00 BP 137/61 10/01/23 10:06 Pulse Ox 95 10/01/23 07:00 FiO2 Intake & Output 09/30/23 10/01/23 10/01/23 18:59 06:59 18:59 Intake Total 1200 560 240 Output Total 1000 Balance 200 560 240 Intake: Intake, IV Titration 200 Amount Meropenem 1 gm In Sodium 200 Chloride 0.9% 100 ml @ 33 .333 mls/hr IVPB Q8HR@ 0600,1400,2200 [facility] Rx#: [id number] Oral 1200 360 240 Output: Urine 1000 Other: Voiding Method Indwelling Catheter Indwelling Catheter Indwelling Catheter - Labs CBC & Chem 7: 10/01/23 06:44 09/29/23 07:22 Labs: Abnormal Lab Results - Last 24 Hours (Table) 09/30/23 09/30/23 09/30/23 Range/Units : 17:39 20:32 RBC (4.30-5.90) m/uL Hgb (13.0-17.5) gm/dL Hct (39.0-53.0) % POC Glucose (mg/dL) 216 H 341 H 306 H (70-110) mg/dL 10/01/23 10/01/23 Range/Units 06:44 07:07 RBC 3.88 L (4.30-5.90) m/uL Hgb 11.7 L (13.0-17.5) gm/dL Hct 36.9 L (39.0-53.0) % POC Glucose (mg/dL) 196 H (70-110) mg/dL Microbiology - Last 24 Hours (Table) 09/26/23 02:02 Gram Stain - Final Foot - Left Wound Culture - Final Pseudomonas aeruginosa Proteus mirabilis 09/27/23 06:38 Blood Culture - Preliminary Blood Assessment and Plan Time with Patient: Less than 30
--- NOTE | 2023-10-01 12:03 | P.PN ---
Subjective Patient is seen for follow-up for acute kidney injury and chronic kidney disease. Serum creatinine decreased to 1.4 mg/dL from 2.0 on admission. Complaining of constipation. There is concern for possible confusion. Significant stammering noted today Objective - Vital Signs Vital signs: Vital Signs Temp 98.3 F 10/01/23 07:00 Pulse 58 L 10/01/23 10:06 Resp 18 10/01/23 07:00 BP 137/61 10/01/23 10:06 Pulse Ox 95 10/01/23 07:00 FiO2 Intake & Output 09/30/23 10/01/23 10/01/23 18:59 06:59 18:59 Intake Total 1200 560 240 Output Total 1000 Balance 200 560 240 Intake: Intake, IV Titration 200 Amount Meropenem 1 gm In Sodium 200 Chloride 0.9% 100 ml @ 33 .333 mls/hr IVPB Q8HR@ 0600,1400,2200 [facility] Rx#: [id number] Oral 1200 360 240 Output: Urine 1000 Other: Voiding Method Indwelling Catheter Indwelling Catheter Indwelling Catheter - Exam Patient is comfortable awake not in any acute distress Examination of the heart S1 and S2 Examination lungs decreased breath sounds at the bases Abdomen is soft nontender Examination of the lower extremities shows no significant edema E [employer] exam grossly intact - Labs CBC & Chem 7: 10/01/23 06:44 09/29/23 07:22 Labs: Abnormal Lab Results - Last 24 Hours (Table) 09/30/23 09/30/23 09/30/23 Range/Units : 17:39 20:32 RBC (4.30-5.90) m/uL Hgb (13.0-17.5) gm/dL Hct (39.0-53.0) % POC Glucose (mg/dL) 216 H 341 H 306 H (70-110) mg/dL 10/01/23 10/01/23 Range/Units 06:44 07:07 RBC 3.88 L (4.30-5.90) m/uL Hgb 11.7 L (13.0-17.5) gm/dL Hct 36.9 L (39.0-53.0) % POC Glucose (mg/dL) 196 H (70-110) mg/dL Microbiology - Last 24 Hours (Table) 09/26/23 02:02 Gram Stain - Final Foot - Left Wound Culture - Final Pseudomonas aeruginosa Proteus mirabilis 09/27/23 06:38 Blood Culture - Preliminary Blood Assessment and Plan Assessment: 1. Acute kidney injury secondary to ATN secondary to severe sepsis, hypovolemia, diuretics. Creatinine 2.05 on admission -1.46 on 09/29/2023. No hydronephrosis noted on kidney ultrasound. 2. Chronic kidney disease stage II with baseline creatinine 1-1.2. Suspect diabetic kidney disease. UA dated 09/20/2023 showed UTI but no proteinuria. 3. Diabetes mellitus. 4. Hypertension with chronic kidney disease. Controlled. 5. Hypovolemic hyponatremia. Component of hypertonicity from hyperglycemia. 6. Severe sepsis secondary to UTI. Also has a nonhealing left foot wound. Blood cultures positive for E. coli. ID following. On IV antibiotics. Plan: Treatment of constipation Check labs today and in a.m. Encourage increased oral intake
[2023-10-01 12:34] LABS: African American GFR (CKD) 59 (>60 ml/min/1.73 sqM); Anion Gap 14 mmol/L; Blood Urea Nitrogen 71 mg/dL (9-20); Calcium 9.1 mg/dL (8.4-10.2); Carbon Dioxide 17 mmol/L (22-30); Chloride 107 mmol/L (98-107); Glucose 187 mg/dL (74-99); Non-African American GFR(CKD) 51 (>60 ml/min/1.73 sqM); Potassium 4.9 mmol/L (3.5-5.1); Sodium 138 mmol/L (137-145)
[2023-10-01 12:36] LABS: Glucose,Whole Blood 277 mg/dL (70-110)
--- NOTE | 2023-10-01 15:28 | P.PN ---
Subjective Progress Note Date: 09/30/23 Principal diagnosis: Reason for follow-up is fever and bacteremia Patient is a 72-year-old male with a past medical history significant for diabetes mellitus hypertension hyperlipidemia [place] coronary artery disease [place] resident patient has been sent to the ER for evaluation of possible infection at the patient was noticed to have a fever [facility] [address] [facility], patient did have a positive UA also noticed to have a positive blood culture with ESBL E. coli On today's evaluation that is 09/30/2023 the patient continues to be afebrile, the patient is breathing comfortably on room air and denies any shortness of breath, the patient denies chest pain or cough, patient denies abdominal pain, no nausea/vomiting or diarrhea., The patient has any worsening pain to the left heel wound area Patient did have white count 7.85 as of 09/28/2023, creatinine 1.46 as of 09/29/2023, blood culture with ESBL E. coli, left heel with Pseudomonas aeruginosa and Proteus mirabilis, urine with yeast Objective - Vital Signs Vital signs: Vital Signs Temp 98.8 F 09/30/23 07:00 Pulse 62 09/30/23 07:00 Resp 17 09/30/23 07:00 BP 173/70 09/30/23 07:00 Pulse Ox 98 09/30/23 07:00 FiO2 Intake & Output 09/29/23 09/30/23 09/30/23 18:59 06:59 18:59 Intake Total 460 120 Output Total 3000 2700 Balance -3000 -2240 120 Weight 77.111 kg Intake: Intake, IV Titration 100 Amount Meropenem 1 gm In Sodium 100 Chloride 0.9% 100 ml @ 33 .333 mls/hr IVPB Q8HR@ 0600,1400,2200 [facility] Rx#: [id number] Oral 360 120 Output: Urine 3000 2700 Other: Voiding Method Indwelling Catheter Indwelling Catheter Indwelling Catheter - Exam GENERAL DESCRIPTION: An elderly male up in bed in no distress RESPIRATORY SYSTEM: Unlabored breathing , clear to auscultation anteriorly HEART: S1 S2 regular rate and rhythm , ABDOMEN: Soft , no tenderness EXTREMITIES: Left heel wound is currently dressed - Labs CBC & Chem 7: 10/01/23 06:44 10/01/23 06:44 Labs: Abnormal Lab Results - Last 24 Hours (Table) 09/29/23 09/29/23 09/30/23 Range/Units 17:04 20:42 07:23 POC Glucose (mg/dL) 351 H 415 H 198 H (70-110) mg/dL 09/30/23 Range/Units 12:23 POC Glucose (mg/dL) 216 H (70-110) mg/dL Microbiology - Last 24 Hours (Table) 09/27/23 06:38 Blood Culture - Preliminary Blood 09/26/23 16:25 Blood Culture - Preliminary Blood 09/26/23 02:02 Gram Stain - Final Foot - Left Wound Culture - Final Pseudomonas aeruginosa Proteus mirabilis Assessment and Plan (1) Bacteremia Current Visit: No Status: Acute Code(s): R78.81 - BACTEREMIA SNOMED Code(s): 7500120 Plan: 1patient with an episode of sepsis in this patient who did have a fever tachycardia mild elevated white count source is likely urinary patient did have significantly positive UA and likely from enteric gram-negative pathogen, patient chest x-ray with mostly pulmonary vascular congestion no significant respiratory symptoms to be suspicious for pneumonia. 2patient with a chronic nonhealing wound to the left heel area , did have evidence of some necrotic tissue and will benefit from surgical debridement versus surgical consult has been placed 3positive blood culture with ESBL E. coli , however the patient is growing Pseudomonas and Proteus from the left heel wound, patient currently waiting for surgical debridement and deep culture 4bone scan is positive suggestive left heel osteomyelitis 5will need PICC line for outpatient IV antibiotic therapy, for now continue the patient on meropenem 1 g every 8 hours Dictation was produced using [employer] dictation software. please excuse any grammatical, word or spelling errors. Time with Patient: Less than 30
--- NOTE | 2023-10-01 15:30 | P.PN ---
Subjective Progress Note Date: 10/01/23 Principal diagnosis: Reason for follow-up is fever and bacteremia Patient is a 72-year-old male with a past medical history significant for diabetes mellitus hypertension hyperlipidemia [place] coronary artery disease [place] resident patient has been sent to the ER for evaluation of possible infection at the patient was noticed to have a fever of 100 F at the local [place] [facility], patient did have a positive UA also noticed to have a positive blood culture with ESBL E. coli On today's evaluation that is 10/01/2023 the patient denies any fever or any chills, the patient denies shortness of breath chest pain or cough, the patient nausea/vomiting or diarrhea and no abdominal pain. Patient denies any worsening pain to the left heel wound area Patient did have white count is 9.4, creatinine 1.37, blood culture with ESBL E. coli, left heel with Pseudomonas aeruginosa and Proteus mirabilis, urine with yeast Objective - Vital Signs Vital signs: Vital Signs Temp 97.6 F 10/01/23 13:01 Pulse 55 L 10/01/23 13:01 Resp 16 10/01/23 13:01 BP 131/61 10/01/23 13:01 Pulse Ox 96 10/01/23 13:01 FiO2 Intake & Output 09/30/23 10/01/23 10/01/23 18:59 06:59 18:59 Intake Total 1200 560 240 Output Total 1000 Balance 200 560 240 Intake: Intake, IV Titration 200 Amount Meropenem 1 gm In Sodium 200 Chloride 0.9% 100 ml @ 33 .333 mls/hr IVPB Q8HR@ 0600,1400,2200 [facility] Rx#: [id number] Oral 1200 360 240 Output: Urine 1000 Other: Voiding Method Indwelling Catheter Indwelling Catheter Indwelling Catheter - Exam GENERAL DESCRIPTION: An elderly male up in bed in no distress RESPIRATORY SYSTEM: Unlabored breathing , clear to auscultation anteriorly HEART: S1 S2 regular rate and rhythm , ABDOMEN: Soft , no tenderness EXTREMITIES: Left heel wound is currently dressed - Labs CBC & Chem 7: 10/01/23 06:44 10/01/23 06:44 Labs: Abnormal Lab Results - Last 24 Hours (Table) 09/30/23 09/30/23 10/01/23 Range/Units 17:39 20:32 06:44 RBC 3.88 L (4.30-5.90) m/uL Hgb 11.7 L (13.0-17.5) gm/dL Hct 36.9 L (39.0-53.0) % Carbon Dioxide (22-30) mmol/L BUN (9-20) mg/dL Creatinine (0.66-1.25) mg/dL Glucose (74-99) mg/dL POC Glucose (mg/dL) 341 H 306 H (70-110) mg/dL 10/01/23 10/01/23 10/01/23 Range/Units 06:44 07:07 12:33 RBC (4.30-5.90) m/uL Hgb (13.0-17.5) gm/dL Hct (39.0-53.0) % Carbon Dioxide 17 L (22-30) mmol/L BUN 71 H (9-20) mg/dL Creatinine 1.37 H (0.66-1.25) mg/dL Glucose 187 H (74-99) mg/dL POC Glucose (mg/dL) 196 H 277 H (70-110) mg/dL Microbiology - Last 24 Hours (Table) 09/26/23 02:02 Gram Stain - Final Foot - Left Wound Culture - Final Pseudomonas aeruginosa Proteus mirabilis 09/27/23 06:38 Blood Culture - Preliminary Blood Assessment and Plan (1) Bacteremia Current Visit: No Status: Acute Code(s): R78.81 - BACTEREMIA SNOMED Code(s): 3966044 Plan: 1patient with an episode of sepsis in this patient who did have a fever tachycardia mild elevated white count source is likely urinary patient did have significantly positive UA and likely from enteric gram-negative pathogen, patient chest x-ray with mostly pulmonary vascular congestion no significant respiratory symptoms to be suspicious for pneumonia. 2patient with a chronic nonhealing wound to the left heel area , did have evidence of some necrotic tissue and will benefit from surgical debridement versus surgical consult has been placed 3positive blood culture with ESBL E. coli , however the patient is growing Pseudomonas and Proteus from the left heel wound, patient currently waiting for surgical debridement and deep culture, possibly scheduled for tomorrow 4bone scan is positive suggestive left heel osteomyelitis 5patient continue the patient on meropenem 1 g every 8 hours, plan is for a PICC line placement tomorrow discussed with the EQUIPMENT DRIVER for admitting team Dictation was produced using [employer] dictation software. please excuse any grammatical, word or spelling errors. Time with Patient: Less than 30
[2023-10-01] MEDS: ASPIRIN 81 MG PO SCH (16:44)
[2023-10-01] MEDS: FERROUS SULFATE 325 MG TAB PO SCH (16:44)
[2023-10-01 17:00] LABS: Glucose,Whole Blood 355 mg/dL (70-110)
[2023-10-01 20:27] LABS: Glucose,Whole Blood 374 mg/dL (70-110)
[2023-10-01] MEDS: GABAPENTIN 400 MG CAP PO SCH (20:44)
[2023-10-01] MEDS: ATORVASTATIN 80 MG TAB PO SCH (20:44)
[2023-10-01] MEDS: INSULIN DETEMIR (LEVEMIR) 100 UNIT/ML SYR SQ SCH (20:45)
[2023-10-02] MEDS: ACETAMINOPHEN TAB 325 MG TAB PO PRN (00:43)
[2023-10-02] MEDS: HYDROcodone/APAP 7.5-325MG 1 EACH TAB PO PRN ×2 (02:46→20:58)
[2023-10-02] MEDS: LEVOTHYROXINE 137 MCG TAB PO SCH (06:17)
[2023-10-02] MEDS: MEROPENEM 1 GM in SODIUM CHLORIDE 0.9% 100 ML IVPB SCH ×3 (06:17→23:38)
[2023-10-02 06:34] LABS: Glucose,Whole Blood 147 mg/dL (70-110)
[2023-10-02 07:35] LABS: Glucose,Whole Blood 97 mg/dL (70-110)
[2023-10-02] MEDS: INSULIN ASPART (NovoLOG) 100 UNIT/ML VIAL SQ SCH ×7 (07:39→20:56)
[2023-10-02] MEDS: TROSPIUM CHLORIDE 20 MG TABLET PO SCH (08:31)
[2023-10-02] MEDS: FAMOTIDINE 20 MG TAB PO SCH (08:31)
[2023-10-02] MEDS: ISOSORBIDE MONONITRATE ER 30 MG TAB.ER.24H PO SCH (08:31)
[2023-10-02] MEDS: amLODIPine 5 MG TAB PO SCH ×2 (08:31→20:55)
[2023-10-02] MEDS: ESCITALOPRAM 10 MG TAB PO SCH (08:31)
[2023-10-02] MEDS: METOPROLOL TARTRATE 50 MG TAB PO SCH ×2 (08:32→18:33)
[2023-10-02] MEDS: HEPARIN SODIUM,PORCINE 5,000 UNIT/ML 1 ML VIAL SQ SCH ×2 (08:32→20:56)
[2023-10-02] MEDS ORDERED: LIDOCAINE 1% INJ 10MG/ML (5 ML VIAL-PF) SQ ONE (09:35)
--- NOTE | 2023-10-02 11:08 | IR ---
PICC LINE PLACEMENT: HISTORY: Infection requiring long-term antibiotic therapy PROCEDURE: Ultrasound and fluoroscopic guidance of PICC line placement. COMPLICATIONS: None ANESTHESIA: 1. 1% Lidocaine locally. FINDINGS/TECHNIQUE: The procedure was explained to the patient. The risks, complications, benefits and alternatives were discussed and any questions were answered. Informed consent was obtained. The patient was placed supine on the fluoroscopic table and prepped and draped in the usual sterile fash ion. Utilizing a 21 gauge needle and sonographic and fluoroscopic guidance, access in the left basi lic vein was achieved and there is placement of a 0.018 guidewire. The vein is patent. A 4-F sheath was placed over the guidewire. The guidewire and dilator were removed and a 4-F. PICC line was plac ed through the sheath with the tip at the level of the SVC. The sheath was removed, the catheter was flushed and sutured into position. The patient was stable throughout the procedure and remained sta ble upon discharge from the Department of Radiology. The vein puncture was patent under ultrasound. A sorenson scale image was obtained to document patency of the vein punctured. All elements of the maximal barrier technique were utilized. FLUOROSCOPY TIME: DAP 0.1Gy cm2 IMPRESSION: Successful PICC line placement under ultrasound and fluoroscopic guidance.
--- NOTE | 2023-10-02 11:55 | P.PN ---
Subjective Patient is seen for follow-up for acute kidney injury and chronic kidney disease. Serum creatinine decreased to 1.37 mg/dL from 2.0 on admission. Has indwelling sutton catheter. Laying in bed. No significant complaints today. Objective - Vital Signs Vital signs: Vital Signs Temp 98.1 F 10/02/23 07:18 Pulse 65 10/02/23 07:18 Resp 16 10/02/23 07:18 BP 166/74 10/02/23 07:18 Pulse Ox 94 L 10/02/23 07:18 FiO2 Intake & Output 10/01/23 10/02/23 10/02/23 18:59 06:59 18:59 Intake Total 1630 590 Output Total 19990 Balance -370 -1610 Intake: Intake, IV Titration 200 Amount Meropenem 1 gm In Sodium 200 Chloride 0.9% 100 ml @ 33 .333 mls/hr IVPB Q8HR@ 0600,1400,2200 [facility] Rx#: [id number] Oral 1430 590 Output: Urine 1999 1600 Post Void Residual 600 Other: Voiding Method Indwelling Catheter Indwelling Catheter Indwelling Catheter # Bowel Movements 1 - Exam Patient is comfortable awake not in any acute distress Examination of the heart S1 and S2 Examination lungs decreased breath sounds at the bases Abdomen is soft nontender Examination of the lower extremities shows no significant edema [employer]GER exam grossly intact - Labs CBC & Chem 7: 10/01/23 06:44 10/01/23 06:44 Labs: Abnormal Lab Results - Last 24 Hours (Table) 10/01/23 10/01/23 10/01/23 Range/Units 06:44 12:33 16:58 Carbon Dioxide 17 L (22-30) mmol/L BUN 71 H (9-20) mg/dL Creatinine 1.37 H (0.66-1.25) mg/dL Glucose 187 H (74-99) mg/dL POC Glucose (mg/dL) 277 H 355 H (70-110) mg/dL 10/01/23 10/02/23 Range/Units 20:25 06:15 Carbon Dioxide (22-30) mmol/L BUN (9-20) mg/dL Creatinine (0.66-1.25) mg/dL Glucose (74-99) mg/dL POC Glucose (mg/dL) 374 H 147 H (70-110) mg/dL Microbiology - Last 24 Hours (Table) 09/26/23 16:25 Blood Culture - Final Blood Assessment and Plan Assessment: 1. Acute kidney injury secondary to ATN secondary to severe sepsis, hypovolemia, diuretics. Creatinine 2.05 on admission -1.46 on 09/29/2023. No hydronephrosis noted on kidney ultrasound. 2. Chronic kidney disease stage II with baseline creatinine 1-1.2. Suspect diabetic kidney disease. UA dated 09/20/2023 showed UTI but no proteinuria. 3. Diabetes mellitus. 4. Hypertension with chronic kidney disease. Controlled. 5. Hypovolemic hyponatremia. Component of hypertonicity from hyperglycemia. 6. Severe sepsis secondary to UTI. Also has a nonhealing left foot wound. Blood cultures positive for E. coli. ID following. On IV antibiotics. Plan: Repeat labs Encourage increased oral intake Add oral sodium bicarb.
[2023-10-02 12:08] LABS: BUN/Creat Ratio 48.23 Ratio (12.00-20.00); Blood Urea Nitrogen 62.7 mg/dL (9.0-27.0); Calcium 9.3 mg/dL (8.7-10.3); Carbon Dioxide 20.7 mmol/L (21.6-31.8); Chloride 105 mmol/L (96-109); Glucose 93 mg/dL (70-110); Potassium 4.9 mmol/L (3.5-5.5); Sodium 138 mmol/L (135-145)
[2023-10-02] MEDS: DEXTROSE 50% SYRINGE 50 ML IVP PRN (12:08)
[2023-10-02 12:16] LABS: Glucose,Whole Blood 64 mg/dL (70-110)
[2023-10-02 12:22] LABS: Glucose,Whole Blood 147 mg/dL (70-110)
[2023-10-02 13:29] LABS: Glucose,Whole Blood 138 mg/dL (70-110)
[2023-10-02] MEDS ORDERED: LACTATED RINGERS 1,000 ML IV ONE (13:38)
[2023-10-02] MEDS ORDERED: ONDANSETRON 4 MG/2 ML VIAL ONE (13:46)
[2023-10-02] MEDS ORDERED: ONDANSETRON 4 MG/2 ML VIAL IVP ONE (13:49)
[2023-10-02] MEDS ORDERED: PROPOFOL 10 MG/ML 20 ML VIAL IV ONE (14:01)
[2023-10-02] MEDS ORDERED: MIDAZOLAM 2 MG/2 ML VIAL ONE (14:01)
[2023-10-02] MEDS ORDERED: KETAMINE HCL IN 0.9 % NACL 50 MG/5 ML SYRINGE ONE (14:01)
--- NOTE | 2023-10-02 14:35 | P.OP ---
Date of Procedure: 10/02/23 Description of Procedure: Preoperative diagnosis: [Nonhealing left heel wound] Postoperative diagnosis: Same Procedure: [Sharp excisional debridement left heel wound measuring 3 x 3 x 0.7 cm to bone] Surgeon: Pricila Romeo D.O. EBL: [5 mL] IV fluids: [See records] Urine output: [See records] Drains: [None] Complications: [None] Condition: [Stable] Operative indication and findings: [Patient is a 72-year-old male with a nonhealing heel wound who has bacteremia and due to this infectious disease want ed cleanup wound with deep cultures and potential bone culture.] Procedure in detail: [Patient was brought to the special suite and placed in supine position. The left foot was prepped and draped in usual sterile fashion. A procedure, performed, all parties were in agreement. Once anesthesia was adequate, a scalpel was utilized to debride the devitalized and callus tissue at the periwound. The further devitalized tissue at the schedule wound was debrided to healthy-appearing granulation tissue. There was an area of exposed bone which was debridement back and a portion of the bone was sent for culture. The bone itself at this location again exposed felt felt relatively brittle as well. Hemostasis was achieved with electrocautery and direct pressure. Wound measurements are as above. The wound was then irrigated copiously and dressings were placed. The patient was transferred to recovery in stable condition having tolerated the procedure well.]
[2023-10-02] MEDS ORDERED: bisacodyL 10 MG SUPP RECTAL PRN (14:51)
[2023-10-02] MEDS ORDERED: HYDROmorphone 0.5 MG/0.5 ML SYRINGE IVP ONE (15:00)
--- NOTE | 2023-10-02 15:59 | PN ---
PROGRESS NOTE DATE OF SERVICE: 10/02/2023 SUBJECTIVE: This is a 72-year-old gentleman, who was admitted with acute kidney injury. He also had left foot wound, also nonhealing ulcer, and concerns for osteomyelitis. The patient is scheduled to have a PICC line today. The patient is being closely monitored. The wound culture showed multiple organisms, Pseudomonas and Proteus. Donna in the urine. E coli in the blood also. PAST MEDICAL HISTORY: Reviewed. REVIEW OF SYSTEMS: Fourteen-point review is negative except as mentioned earlier. CURRENT MEDICATIONS: Reviewed include Norvasc. Doses and rest of the medications are noted. PHYSICAL EXAMINATION: VITAL SIGNS: Pulse is 67, blood pressure is 152/65, respirations 16. HEENT: Conjunctivae are normal. NECK: No jugular venous distention. CARDIOVASCULAR: S1 and S2 muffled. RESPIRATORY: Breath sounds diminished at the bases. Few scattered rhonchi. ABDOMEN: Soft. LEGS: Left leg wound present. LABORATORY DATA: Reviewed. ASSESSMENT: 1. Acute kidney injury from acute tubular necrosis and hypovolemia. 2. Left foot infection, nonhealing with osteomyelitis with Pseudomonas and Proteus mirabilis, sensitive. 3. Escherichia coli sepsis. 4. Donna from the urine. 5. Diabetes mellitus, type 2. 6. Urinary retention. 7. Hypertension. 8. Hyperlipidemia. 9. Multiple complex medical issues. RECOMMENDATIONS: Recommend to continue current medical management. Continue symptomatic treatment. Continue with antibiotics. I would also recommend to add Diflucan to the current regimen. Otherwise, closely follow with multiple consultants. PICC line and outpatient IV antibiotics. PT and OT evaluation. Prognosis is guarded. Further recommendations to follow. Monitor blood sugars closely. Repeat labs will be ordered. MMODL / IJN: [id number] /
[2023-10-02] MEDS: FLUCONAZOLE 100 MG TAB PO SCH (16:00)
[2023-10-02] MEDS ORDERED: HYDROmorphone 0.5 MG/0.5 ML SYRINGE IVP PRN (16:16)
[2023-10-02 17:26] LABS: Glucose,Whole Blood 174 mg/dL (70-110)
[2023-10-02] MEDS: FERROUS SULFATE 325 MG TAB PO SCH (18:33)
[2023-10-02] MEDS: ASPIRIN 81 MG PO SCH (18:33)
[2023-10-02 20:17] LABS: Glucose,Whole Blood 475 mg/dL (70-110)
[2023-10-02] MEDS ORDERED: INSULIN ASPART (NovoLOG) 100 UNIT/ML VIAL SQ ONE (20:33)
[2023-10-02] MEDS: INSULIN DETEMIR (LEVEMIR) 100 UNIT/ML SYR SQ SCH (20:54)
[2023-10-02] MEDS: GABAPENTIN 400 MG CAP PO SCH (20:55)
[2023-10-02] MEDS: ATORVASTATIN 80 MG TAB PO SCH (20:55)
[2023-10-02] MEDS: SODIUM BICARBONATE TAB 650 MG TAB PO SCH (20:55)
[2023-10-02] MEDS ORDERED: INSULIN DETEMIR (LEVEMIR) 100 UNIT/ML SYR SQ SCH (21:00)
[2023-10-02] MEDS ORDERED: INSULIN DETEMIR (LEVEMIR) 100 UNIT/ML SYR SQ ONE (21:30)
[2023-10-02] MEDS: ALPRAZolam 0.25 MG TAB PO PRN (21:42)
[2023-10-03 00:35] LABS: Glucose,Whole Blood 181 mg/dL (70-110)
[2023-10-03] MEDS: MEROPENEM 1 GM in SODIUM CHLORIDE 0.9% 100 ML IVPB SCH ×3 (05:28→20:48)
[2023-10-03] MEDS: LEVOTHYROXINE 137 MCG TAB PO SCH (06:30)
[2023-10-03] MEDS: HYDROcodone/APAP 7.5-325MG 1 EACH TAB PO PRN ×2 (06:30→14:42)
[2023-10-03] MEDS: INSULIN ASPART (NovoLOG) 100 UNIT/ML VIAL SQ SCH ×7 (07:48→20:47)
[2023-10-03 07:49] LABS: Glucose,Whole Blood 56 mg/dL (70-110)
[2023-10-03 07:49] LABS: Glucose,Whole Blood 60 mg/dL (70-110)
[2023-10-03 08:29] LABS: Glucose,Whole Blood 71 mg/dL (70-110)
[2023-10-03] MEDS: HEPARIN SODIUM,PORCINE 5,000 UNIT/ML 1 ML VIAL SQ SCH ×2 (09:36→20:37)
[2023-10-03] MEDS: METOPROLOL TARTRATE 50 MG TAB PO SCH ×2 (09:36→18:12)
[2023-10-03] MEDS: FAMOTIDINE 20 MG TAB PO SCH (09:36)
[2023-10-03] MEDS: SODIUM BICARBONATE TAB 650 MG TAB PO SCH ×2 (09:36→20:37)
[2023-10-03] MEDS: ESCITALOPRAM 10 MG TAB PO SCH (09:36)
[2023-10-03] MEDS: ISOSORBIDE MONONITRATE ER 30 MG TAB.ER.24H PO SCH (09:37)
[2023-10-03] MEDS: amLODIPine 5 MG TAB PO SCH ×2 (09:37→20:37)
[2023-10-03] MEDS: FLUCONAZOLE 100 MG TAB PO SCH (09:37)
[2023-10-03] MEDS: TROSPIUM CHLORIDE 20 MG TABLET PO SCH (09:37)
--- NOTE | 2023-10-03 10:03 | P.CONS ---
History of Present Illness - Reason for Consult Consult date: 10/03/23 wound care - History of Present Illness Patient is a 72-year-old male with a past medical history of diabetes, hypertension, hyperlipidemia, coronary artery disease with CABG who has a heel wound of his left. Patient is known to the wound care center has been treated with Santyl to the site. However there has not been significant change. Patient was scheduled to see vascular surgery for discussion of possible intervention. Patient underwent surgical debridement. The ulceration measures approximate 3 x 3 x 0.7 with bone exposure. We will continue with Santyl patient will be seen in the wound care center next week at 2:45. Review Of Systems: Constitutional: No fever, no chills, no night sweats. No weight change. No weakness, fatigue or lethargy. No daytime sleepiness. Integumentary:reports wounds, no lesions. No rash or pruritus. No unusual bruising. No change in hair or nails. Physical exam: General Appearance: Alert, cooperative, no distress, appears stated age. Skin: See HPI all other Skin color, texture, tugor normal, no rashes or lesions. Neurologic: Alert oriented x3 Assessment: 1. Pressure ulcer left heel stage III 2. Ostomy mellitus 3. Arthrosclerosis of left lower extremity with ulcerations to other parts of left foot Plan: 1. Apply Santyl. Saline moistened gauze, dry gauze, rolled gauze and secure with paper tape. Change daily. Patient returned to the wound care center on October 10 at 245. Continue nonweightbearing to the left heel. May use the left forefoot for transferring. Thank you for this consultation any questions please contact the wound care center DNP note has been reviewed and discussed with Dr. Ramos and the impression and plan of care has been directed as dictated. Past Medical History Past Medical History: Coronary Artery Disease (CAD), Diabetes Mellitus, GERD/Reflux, Hyperlipidemia, Hypertension, Myocardial Infarction (NH), Thyroid Disorder Additional Past Medical History / Comment(s): neuropathy, diabetic coma in 2000 and pt's sister has had legal guardianship since. Last Myocardial Infarction Date:: unknown History of Any Multi-Drug Resistant Organisms: MRSA Year Discovered:: 06/14/23 MDRO Source:: Left Foot Past Surgical History: Appendectomy, Coronary Bypass/CABG, Heart Catheterization With Stent Additional Past Surgical History / Comment(s): Sister relays, "He had peripheral artery surgery too." Past Anesthesia/Blood Transfusion Reactions: No Reported Reaction Date of Last Stent Placement:: unknown Past Psychological History: Depression, Panic Disorder Smoking Status: Former smoker Past Alcohol Use History: Daily Past Drug Use History: Marijuana - Past Family History Father Family Medical History: Congestive Heart Failure (CHF) Mother Additional Family Medical History / Comment(s): of old age. Medications and Allergies Home Medications Medication Instructions Recorded Confirmed Type Aspirin [[place] Aspirin EC] 81 mg PO DAILY@1700 03/13/19 09/24/23 History Ferrous Sulfate [Iron (65 MG 325 mg PO DAILY@169903/13/19 09/24/23 History Elemental)] Isosorbide Mononitrate ER [Imdur] 30 mg PO DAILY@0800 03/13/19 09/24/23 History Levothyroxine Sodium [Synthroid] 137 mcg PO DAILY 03/13/19 09/24/23 History Pantoprazole Sodium [Protonix] 40 mg PO DAILY@0600 03/13/19 09/24/23 History Ammonium Lactate Cream [Lac-Hydrin 1 applic TOPICAL BID PRN 04/13/23 09/24/23 History 12% Cream] Atorvastatin [Lipitor] 80 mg PO HS 04/13/23 09/24/23 History Empagliflozin [Jardiance] 25 mg PO DAILY@0800 04/13/23 09/24/23 History Escitalopram [Lexapro] 10 mg PO DAILY@0800 04/13/23 09/24/23 History Solifenacin Succinate [Vesicare] 5 mg PO DAILY@0800 04/13/23 09/24/23 History ALPRAZolam [Xanax] 0.25 mg PO DAILY PRN 09/24/23 09/24/23 History Acetaminophen [Tylenol 8 Hour] 650 mg PO Q4HR PRN 09/24/23 09/24/23 History Cefuroxime [Ceftin] 250 mg PO BID@0800,1700 09/24/23 09/24/23 History Collagenase [Santyl Ointment] 1 applic TOPICAL DAILY 09/24/23 09/24/23 History Furosemide [Lasix] 40 mg PO DAILY@0800 09/24/23 09/24/23 History Gabapentin [Neurontin] 400 mg PO HS@2130 09/24/23 09/24/23 History Glucerna Shake 1 can PO DAILY@1500 09/24/23 09/24/23 History HYDROcodone/APAP 7.5-325MG [[place] 1 tab PO Q6H PRN 09/24/23 09/24/23 History 7.5-325] INSULIN ASPART (NovoLOG) [NovoLOG 10 unit SQ AC-TID 09/24/23 09/24/23 History (formulary)] INSULIN ASPART (NovoLOG) [NovoLOG See Protocol SQ ACHS 09/24/23 09/24/23 History (formulary)] Insulin Detemir (Levemir) [Levemir] 20 unit SQ HS@2100 09/24/23 09/24/23 History Insulin Detemir (Levemir) [Levemir] 30 unit SQ DAILY@0800 09/24/23 09/24/23 History Liquacel 30 ml PO BID@0800,1700 09/24/23 09/24/23 History Magnesium Hydroxide [Milk of 7,200 mg PO Q48H PRN 09/24/23 09/24/23 History Magnesia Concentrate] Metoprolol Tartrate [Lopressor] 50 mg PO BID@0800,1700 09/24/23 09/24/23 History Na Phos,M-B/Na Phos,Di-Ba [Fleet 133 ml RECTAL DAILY PRN 09/24/23 09/24/23 History Adult] Nystatin 100,000Unit/gm Cream 1 applic TOPICAL BID 09/24/23 09/24/23 History [Mycostatin Cream] amLODIPine [Norvasc] 5 mg PO DAILY@0800 09/24/23 09/24/23 History bisacodyL [Dulcolax] 10 mg RECTAL DAILY PRN 09/24/23 09/24/23 History metFORMIN HCL [Glucophage] 1,000 mg PO DAILY@1700 09/24/23 09/24/23 History Allergies Allergy/AdvReac Type Severity Reaction Status Date / Time No Known Allergies Allergy Verified 09/24/23 18:35 Physical Exam Vitals: Vital Signs Temp Pulse Resp BP Pulse Ox 10/03/23 07:22 97.4 F L 56 L 16 112/54 91 L 10/03/23 02:00 98 16 99/54 93 L 10/02/23 20:00 97.6 F 96 16 135/69 92 L 10/02/23 17:20 69 112/62 96 10/02/23 17:05 67 117/63 97 10/02/23 16:50 65 107/60 97 10/02/23 16:35 66 111/61 96 10/02/23 16:05 98.2 F 69 16 109/61 96 10/02/23 15:30 67 18 114/56 94 L 10/02/23 15:15 68 16 127/63 97 10/02/23 15:00 66 16 122/68 95 10/02/23 14:47 67 16 114/55 94 L 10/02/23 14:32 58 L 18 86/51 96 10/02/23 13:21 97 F L 67 16 132/61 97 10/02/23 11:58 98.1 F 62 16 150/64 93 L Intake and Output 10/02/23 10/03/23 10/03/23 22:59 06:59 14:59 Intake Total 275 Output Total 225 1000 Balance 50 -1000 Intake: IV 275 Output: Urine 225 1000 Other: Voiding Method Indwelling Catheter Weight 77.111 kg Results CBC & Chem 7: 10/01/23 06:44 10/02/23 07:18 Labs: Abnormal Lab Results - Last 24 Hours (Table) 10/02/23 10/02/23 10/02/23 Range/Units 07:18 12:01 12:20 Carbon Dioxide 20.7 L (21.6-31.8) mmol/L Anion Gap 12.30 H (4.00-12.00) mmol/L BUN 62.7 H (9.0-27.0) mg/dL Est GFR (CKD-EPI) 58 L (>=60) BUN/Creatinine Ratio 48.23 H (12.00-20.00) Ratio POC Glucose (mg/dL) 64 L 147 H (70-110) mg/dL 10/02/23 10/02/23 10/02/23 Range/Units 13:26 17:24 20:15 Carbon Dioxide (21.6-31.8) mmol/L Anion Gap (4.00-12.00) mmol/L BUN (9.0-27.0) mg/dL Est GFR (CKD-EPI) (>=60) BUN/Creatinine Ratio (12.00-20.00) Ratio POC Glucose (mg/dL) 138 H 174 H 475 H (70-110) mg/dL 10/03/23 10/03/23 10/03/23 Range/Units 00:33 07:27 07:44 Carbon Dioxide (21.6-31.8) mmol/L Anion Gap (4.00-12.00) mmol/L BUN (9.0-27.0) mg/dL Est GFR (CKD-EPI) (>=60) BUN/Creatinine Ratio (12.00-20.00) Ratio POC Glucose (mg/dL) 181 H 60 L 56 L (70-110) mg/dL Microbiology - Last 24 Hours (Table) 10/02/23 14:46 Gram Stain - Preliminary Foot - Left 09/27/23 06:38 Blood Culture - Final Blood 09/26/23 16:25 Blood Culture - Final Blood Assessment and Plan (1) Pressure ulcer of left heel, stage 3 Current Visit: Yes Status: Acute Code(s): L89.623 - PRESSURE ULCER OF LEFT HEEL, STAGE 3 SNOMED Code(s): 89407088362445 (2) Osteomyelitis, unspecified Current Visit: Yes Status: Acute Code(s): M86.9 - OSTEOMYELITIS, UNSPECIFIED SNOMED Code(s): 38751866 (3) Atherosclerosis of [place] arteries of left leg with ulceration of other part of foot Current Visit: Yes Status: Acute Code(s): I70.245 - ATHSCL [place] ARTERIES OF LEFT LEG W ULCERATION OTH PRT FOOT SNOMED Code(s): 2345143323 (4) Type 2 diabetes mellitus with foot ulcer Current Visit: No Status: Acute Code(s): E11.621 - TYPE 2 DIABETES MELLITUS WITH FOOT ULCER; L97.509 - NON-PRESSURE CHRONIC ULCER OTH PRT UNSP FOOT W UNSP SEVERITY SNOMED Code(s): 731744746
[2023-10-03 10:56] LABS: Basophils # (A) 0.07 X 10*3/uL (0.00-0.10); Basophils % (A) 0.6 %; Eosinophils # (A) 0.75 X 10*3/uL (0.04-0.35); Eosinophils % (A) 6.3 %; HCT 36.1 % (39.6-50.0); Lymphocytes % (A) 14.3 %; MCH 29.6 pg (27.0-32.0); MCHC 30.5 g/dL (32.0-37.0); MCV 97.3 FL (80.0-97.0); Mean Platelet Volume 10.1 FL (9.5-12.2); Monocytes # (A) 0.78 X 10*3/uL (0.20-1.00); Monocytes % (A) 6.6 %; NRBC Per 100 WBC 0 X 10*3/uL (0.00-0.01); Neutrophils # (A) 8.49 X 10*3/uL (1.80-7.70); Neutrophils % (A) 71.6 %; Platelet Count 425 X 10*3/uL (140-440); RBC 3.71 X 10*6/uL (4.40-5.60); RDW 13.5 % (11.5-14.5); WBC 11.86 X 10*3/uL (4.50-10.00)
[2023-10-03 11:56] LABS: ALT 33 U/L (10-49); AST 25 U/L (14-35); Albumin 2.9 g/dL (3.8-4.9); Albumin/Globulin Ratio 0.76 Ratio (1.60-3.17); Alkaline Phosphatase 98 U/L (41-126); BUN/Creat Ratio 40.33 Ratio (12.00-20.00); Blood Urea Nitrogen 60.5 mg/dL (9.0-27.0); Calcium 8.9 mg/dL (8.7-10.3); Carbon Dioxide 25.5 mmol/L (21.6-31.8); Chloride 102 mmol/L (96-109); Globulin 3.8 g/dL (1.6-3.3); Glucose 27 mg/dL (70-110); Potassium 5.5 mmol/L (3.5-5.5); Sodium 135 mmol/L (135-145); Total Bilirubin 0.3 mg/dL (0.3-1.2); Total Protein 6.7 g/dL (6.2-8.2)
[2023-10-03 12:01] LABS: Glucose,Whole Blood 142 mg/dL (70-110)
--- NOTE | 2023-10-03 12:12 | P.PN ---
Subjective Patient is seen for follow-up for acute kidney injury and chronic kidney disease. Serum creatinine decreased to 1.37 mg/dL from 2.0 on admission. It was 1.5 today. Has indwelling sutton catheter. Sitting up in bed. No significant complaints today. Objective - Vital Signs Vital signs: Vital Signs Temp 97.4 F L 10/03/23 07:22 Pulse 56 L 10/03/23 07:22 Resp 16 10/03/23 07:22 BP 112/54 10/03/23 07:22 Pulse Ox 91 L 10/03/23 07:22 FiO2 Intake & Output 10/02/23 10/03/23 10/03/23 18:59 06:59 18:59 Intake Total 675 Output Total 230 1000 600 Balance 445 -1000 -600 Weight 77.111 kg Intake: IV 675 Output: Urine 225 1000 600 Estimated Blood Loss 5 Other: Voiding Method Indwelling Catheter Indwelling Catheter - Exam Patient is comfortable awake not in any acute distress Examination of the heart S1 and S2 Examination lungs decreased breath sounds at the bases Abdomen is soft nontender Examination of the lower extremities shows 1+ edema left leg. Left foot is wrapped PEOPLESOFT exam grossly intact - Labs CBC & Chem 7: 10/03/23 06:30 10/03/23 06:30 Labs: Abnormal Lab Results - Last 24 Hours (Table) 10/02/23 10/02/23 10/02/23 Range/Units 12:01 12:20 13:26 WBC (4.50-10.00) X 10*3/uL RBC (4.40-5.60) X 10*6/uL Hgb (13.0-17.0) g/dL Hct (39.6-50.0) % MCV (80.0-97.0) FL MCHC (32.0-37.0) g/dL Neutrophils # (1.80-7.70) X 10*3/uL Eosinophils # (0.04-0.35) X 10*3/uL BUN (9.0-27.0) mg/dL Est GFR (CKD-EPI) (>=60) BUN/Creatinine Ratio (12.00-20.00) Ratio Glucose (70-110) mg/dL POC Glucose (mg/dL) 64 L 147 H 138 H (70-110) mg/dL Albumin (3.8-4.9) g/dL Globulin (1.6-3.3) g/dL Albumin/Globulin Ratio (1.60-3.17) Ratio 10/02/23 10/02/23 10/03/23 Range/Units 17:24 20:15 00:33 WBC (4.50-10.00) X 10*3/uL RBC (4.40-5.60) X 10*6/uL Hgb (13.0-17.0) g/dL Hct (39.6-50.0) % MCV (80.0-97.0) FL MCHC (32.0-37.0) g/dL Neutrophils # (1.80-7.70) X 10*3/uL Eosinophils # (0.04-0.35) X 10*3/uL BUN (9.0-27.0) mg/dL Est GFR (CKD-EPI) (>=60) BUN/Creatinine Ratio (12.00-20.00) Ratio Glucose (70-110) mg/dL POC Glucose (mg/dL) 174 H 475 H 181 H (70-110) mg/dL Albumin (3.8-4.9) g/dL Globulin (1.6-3.3) g/dL Albumin/Globulin Ratio (1.60-3.17) Ratio 10/03/23 10/03/23 10/03/23 Range/Units 06:30 06:30 07:27 WBC 11.86 H (4.50-10.00) X 10*3/uL RBC 3.71 L (4.40-5.60) X 10*6/uL Hgb 11.0 L (13.0-17.0) g/dL Hct 36.1 L (39.6-50.0) % MCV 97.3 H (80.0-97.0) FL MCHC 30.5 L (32.0-37.0) g/dL Neutrophils # 8.49 H (1.80-7.70) X 10*3/uL Eosinophils # 0.75 H (0.04-0.35) X 10*3/uL BUN 60.5 H (9.0-27.0) mg/dL Est GFR (CKD-EPI) 49 L (>=60) BUN/Creatinine Ratio 40.33 H (12.00-20.00) Ratio Glucose 27 A* (70-110) mg/dL POC Glucose (mg/dL) 60 L (70-110) mg/dL Albumin 2.9 L (3.8-4.9) g/dL Globulin 3.8 H (1.6-3.3) g/dL Albumin/Globulin Ratio 0.76 L (1.60-3.17) Ratio 10/03/23 10/03/23 Range/Units 07:44 11:59 WBC (4.50-10.00) X 10*3/uL RBC (4.40-5.60) X 10*6/uL Hgb (13.0-17.0) g/dL Hct (39.6-50.0) % MCV (80.0-97.0) FL MCHC (32.0-37.0) g/dL Neutrophils # (1.80-7.70) X 10*3/uL Eosinophils # (0.04-0.35) X 10*3/uL BUN (9.0-27.0) mg/dL Est GFR (CKD-EPI) (>=60) BUN/Creatinine Ratio (12.00-20.00) Ratio Glucose (70-110) mg/dL POC Glucose (mg/dL) 56 L 142 H (70-110) mg/dL Albumin (3.8-4.9) g/dL Globulin (1.6-3.3) g/dL Albumin/Globulin Ratio (1.60-3.17) Ratio Microbiology - Last 24 Hours (Table) 10/02/23 14:46 Gram Stain - Preliminary Foot - Left 09/27/23 06:38 Blood Culture - Final Blood Assessment and Plan Assessment: 1. Acute kidney injury secondary to ATN secondary to severe sepsis, hypovolemia, diuretics. Creatinine 2.05 on admission -1.46 on 09/29/2023. No hydronephrosis noted on kidney ultrasound. 2. Chronic kidney disease stage II with baseline creatinine 1-1.2. Suspect diabetic kidney disease. UA dated 09/20/2023 showed UTI but no proteinuria. 3. Diabetes mellitus. 4. Hypertension with chronic kidney disease. Controlled. 5. Hypovolemic hyponatremia. Component of hypertonicity from hyperglycemia. 6. Severe sepsis secondary to UTI. Also has a nonhealing left foot wound. Blood cultures positive for E. coli. ID following. On IV antibiotics. Plan: Repeat labs Encourage increased oral intake Can likely discontinue sodium bicarb upon admission as metabolic acidosis has improved.
[2023-10-03] MEDS: COLLAGENASE 250 UNIT/GM OINTMENT 30 GM TUBE TOPICAL SCH (14:10)
--- NOTE | 2023-10-03 14:41 | PN ---
PROGRESS NOTE DATE OF SERVICE: 10/03/2023 SUBJECTIVE: This is a 72-year-old gentleman, who was admitted with acute kidney injury from acute tubular necrosis and hypovolemia, also had left foot infection. The patient is being closely monitored at this time. No chest pain. No palpitation. PHYSICAL EXAMINATION: VITAL SIGNS: Pulse is 56, blood pressure 112/55, respirations 16. CHEST: Few scattered rhonchi and crackles. ABDOMEN: Soft. NERVOUS SYSTEM: Nonfocal. LABORATORY DATA: Reviewed. Cultures are growing multiple cultures. Urine Donna. ASSESSMENT: 1. Acute kidney injury from acute tubular necrosis and hypovolemia. 2. Left foot infection, nonhealing with osteomyelitis, Pseudomonas and Proteus mirabilis, sensitive. 3. Escherichia coli sepsis. 4. Donna from the urine. 5. Diabetes mellitus, type 2. 6. Urinary retention. 7. Hypertension. 8. Hyperlipidemia. 9. Multiple complex medical issues. RECOMMENDATIONS: Recommend to continue current medical management. Continue symptomatic treatment. Otherwise, at this time, PICC line for outpatient IV antibiotics. Prognosis is guarded. Further recommendations to follow. MMODL / IJN: [id number] /
--- NOTE | 2023-10-03 15:53 | P.PN ---
Subjective Progress Note Date: 10/03/23 Patient was seen and examined today as a follow-up. Yesterday he underwent excisional debridement of the left heel. He states his pain is not well controlled. He is been afebrile. Objective - Vital Signs Vital signs: Vital Signs Temp 97.4 F L 10/03/23 07:22 Pulse 56 L 10/03/23 07:22 Resp 16 10/03/23 07:22 BP 112/54 10/03/23 07:22 Pulse Ox 91 L 10/03/23 07:22 FiO2 Intake & Output 10/02/23 10/03/23 10/03/23 18:59 06:59 18:59 Intake Total 675 Output Total 230 1000 Balance 445 -1000 Weight 77.111 kg Intake: IV 675 Output: Urine 225 1000 Estimated Blood Loss 5 Other: Voiding Method Indwelling Catheter Indwelling Catheter - Exam General appearance: The patient is alert, oriented, appears in no acute distress. HET: Head is normocephalic and atraumatic. Pupils are equal and reactive. Extremities: Left lobe with dressing clean dry and intact. Neurological: No focal deficits. Strength and sensation are grossly intact. - Labs CBC & Chem 7: 10/03/23 06:30 10/03/23 06:30 Labs: Abnormal Lab Results - Last 24 Hours (Table) 10/02/23 10/02/23 10/02/23 Range/Units 07:18 12:01 12:20 Carbon Dioxide 20.7 L (21.6-31.8) mmol/L Anion Gap 12.30 H (4.00-12.00) mmol/L BUN 62.7 H (9.0-27.0) mg/dL Est GFR (CKD-EPI) 58 L (>=60) BUN/Creatinine Ratio 48.23 H (12.00-20.00) Ratio POC Glucose (mg/dL) 64 L 147 H (70-110) mg/dL 10/02/23 10/02/23 10/02/23 Range/Units 13:26 17:24 20:15 Carbon Dioxide (21.6-31.8) mmol/L Anion Gap (4.00-12.00) mmol/L BUN (9.0-27.0) mg/dL Est GFR (CKD-EPI) (>=60) BUN/Creatinine Ratio (12.00-20.00) Ratio POC Glucose (mg/dL) 138 H 174 H 475 H (70-110) mg/dL 10/03/23 10/03/23 10/03/23 Range/Units 00:33 07:27 07:44 Carbon Dioxide (21.6-31.8) mmol/L Anion Gap (4.00-12.00) mmol/L BUN (9.0-27.0) mg/dL Est GFR (CKD-EPI) (>=60) BUN/Creatinine Ratio (12.00-20.00) Ratio POC Glucose (mg/dL) 181 H 60 L 56 L (70-110) mg/dL Microbiology - Last 24 Hours (Table) 10/02/23 14:46 Gram Stain - Preliminary Foot - Left 09/27/23 06:38 Blood Culture - Final Blood 09/26/23 16:25 Blood Culture - Final Blood Assessment and Plan Assessment: 1. Nonhealing left heel wound status post sharp excisional debridement 2. History coronary artery disease status post CABG 3. Diabetes mellitus 4. Bacteremia 5. Urinary tract infection 6. History of peripheral arterial disease Plan: 1. Consult to wound care clinic, patient known to them 2. Continue antibiotics per recommendations from infectious disease 3. Apply green soft offloading boot to patient while in bed in chair 4. Offloading heel pressure when ambulating 5. Patient to follow-up in outpatient setting with vascular surgery Thank you for this consultation. The impression and plan of care has been dictated as directed. I performed a history and examination of this patient, discussed the same with the dictator. I agree with the dictator's note ,documented as a scribe. Any additional findings or plans will be noted.
--- NOTE | 2023-10-03 16:02 | P.PN ---
Subjective Progress Note Date: 10/02/23 Principal diagnosis: Reason for follow-up is fever and bacteremia Patient is a 72-year-old male with a past medical history significant for diabetes mellitus hypertension hyperlipidemia DE coronary artery disease halfway resident patient has been sent to the ER for evaluation of possible infection at the patient was noticed to have a fever of 100 F at the local halfway, patient did have a positive UA also noticed to have a positive blood culture with ESBL E. coli, patient did have Sharp excisional debridement left heel wound measuring 3 x 3 x 0.7 cm to bone completed on 10/02/2023 On today's evaluation that is 10/02/2023 the patient remains to be afebrile, the patient is breathing comfortably on 2 L nasal cannula supplemental oxygen, the patient denies having any chest pain denies any cough or sputum production, patient denies any abdominal pain no nausea vomiting or any diarrhea, patient denies any worsening pain to the left heel Patient did have white count is 9.4, creatinine 1.37 as of 10/01/2023, blood culture with ESBL E. coli, left heel with Pseudomonas aeruginosa and Proteus mirabilis, urine with yeast Objective - Vital Signs Vital signs: Vital Signs Temp 97.6 F 10/02/23 20:00 Pulse 96 10/02/23 20:00 Resp 16 10/02/23 20:00 BP 135/69 10/02/23 20:00 Pulse Ox 92 L 10/02/23 20:00 FiO2 Intake & Output 10/02/23 10/02/23 10/03/23 06:59 18:59 06:59 Intake Total 590 675 Output Total 2200 230 Balance -1610 445 Weight 77.111 kg Intake: IV 675 Oral 590 Output: Urine 1600 225 Post Void Residual 600 Estimated Blood Loss 5 Other: Voiding Method Indwelling Catheter Indwelling Catheter - Exam GENERAL DESCRIPTION: An elderly male up in bed in no distress RESPIRATORY SYSTEM: Unlabored breathing , clear to auscultation anteriorly HEART: S1 S2 regular rate and rhythm , ABDOMEN: Soft , no tenderness EXTREMITIES: Left heel wound is currently dressed - Labs CBC & Chem 7: 10/03/23 06:30 10/03/23 06:30 Labs: Abnormal Lab Results - Last 24 Hours (Table) 10/02/23 10/02/23 10/02/23 Range/Units 06:15 07:18 12:01 Carbon Dioxide 20.7 L (21.6-31.8) mmol/L Anion Gap 12.30 H (4.00-12.00) mmol/L BUN 62.7 H (9.0-27.0) mg/dL Est GFR (CKD-EPI) 58 L (>=60) BUN/Creatinine Ratio 48.23 H (12.00-20.00) Ratio POC Glucose (mg/dL) 147 H 64 L (70-110) mg/dL 10/02/23 10/02/23 10/02/23 Range/Units 12:20 13:26 17:24 Carbon Dioxide (21.6-31.8) mmol/L Anion Gap (4.00-12.00) mmol/L BUN (9.0-27.0) mg/dL Est GFR (CKD-EPI) (>=60) BUN/Creatinine Ratio (12.00-20.00) Ratio POC Glucose (mg/dL) 147 H 138 H 174 H (70-110) mg/dL 10/02/23 Range/Units 20:15 Carbon Dioxide (21.6-31.8) mmol/L Anion Gap (4.00-12.00) mmol/L BUN (9.0-27.0) mg/dL Est GFR (CKD-EPI) (>=60) BUN/Creatinine Ratio (12.00-20.00) Ratio POC Glucose (mg/dL) 475 H (70-110) mg/dL Microbiology - Last 24 Hours (Table) 09/27/23 06:38 Blood Culture - Final Blood 09/26/23 16:25 Blood Culture - Final Blood Assessment and Plan (1) Bacteremia Current Visit: No Status: Acute Code(s): R78.81 - BACTEREMIA SNOMED Cod e(s): 0374634 (2) Osteomyelitis of left foot Current Visit: Yes Status: Acute Code(s): M86.9 - OSTEOMYELITIS, UNSPECIFIED SNOMED Code(s): 6154334744786627 Plan: 1patient with an episode of sepsis in this patient who did have a fever tachycardia mild elevated white count source is likely urinary patient did have significantly positive UA and likely from enteric gram-negative pathogen, patient chest x-ray with mostly pulmonary vascular congestion no significant respiratory symptoms to be suspicious for pneumonia. 2patient with a chronic nonhealing wound to the left heel area , did have evidence of some necrotic tissue , patient did have Sharp excisional debridement left heel wound measuring 3 x 3 x 0.7 cm to bone completed on 10/02/2023 3positive blood culture with ESBL E. coli , however the patient is growing Pseudomonas and Proteus from the left heel wound, patient is status post surgical debridement and deep culture which are currently pending 4bone scan is positive suggestive left heel osteomyelitis 5patient continue the patient on meropenem 1 g every 8 hours, awaiting deep culture finalization to determine his discharge antibiotics Dictation was produced using [employer] dictation software. please excuse any gr ammatical, word or spelling errors. Time with Patient: Less than 30
--- NOTE | 2023-10-03 16:03 | P.PN ---
Subjective Progress Note Date: 10/03/23 Principal diagnosis: Reason for follow-up is fever and bacteremia Patient is a 72-year-old male with a past medical history significant for diabetes mellitus hypertension hyperlipidemia MD coronary artery disease [facility] resident patient has been sent to the ER for evaluation of possible infection at the patient was noticed to have a fever of 100 F at the local [facility], patient did have a positive UA also noticed to have a positive blood culture with ESBL E. coli, patient did have Sharp excisional debridement left heel wound measuring 3 x 3 x 0.7 cm to bone completed on 10/02/2023 On today's evaluation that is 10/03/2023, the patient continues to be afebrile and is breathing comfortably on 2 L nasal cannula oxygen, and patient denies any shortness of breath, chest pain, no cough or sputum production, patient denies nausea/vomiting /diarrhea and no abdominal pain., the patient denies pain to the left heel Patient did have white count is 11.86, creatinine 1.5, blood culture with ESBL E. coli, left heel with Pseudomonas aeruginosa and Proteus mirabilis, urine with yeast Objective - Vital Signs Vital signs: Vital Signs Temp 97.6 F 10/03/23 11:56 Pulse 67 10/03/23 11:56 Resp 16 10/03/23 11:56 BP 146/73 10/03/23 11:56 Pulse Ox 99 10/03/23 11:56 FiO2 Intake & Output 10/02/23 10/03/23 10/03/23 18:59 06:59 18:59 Intake Total 675 Output Total 230 1000 600 Balance 445 -1000 -600 Weight 77.111 kg Intake: IV 675 Output: Urine 225 1000 600 Estimated Blood Loss 5 Other: Voiding Method Indwelling Catheter Indwelling Catheter Indwelling Catheter - Exam GENERAL DESCRIPTION: An elderly male up in bed in no distress RESPIRATORY SYSTEM: Unlabored breathing , clear to auscultation anteriorly HEART: S1 S2 regular rate and rhythm , ABDOMEN: Soft , no tenderness EXTREMITIES: Left heel wound is currently dressed - Labs CBC & Chem 7: 10/03/23 06:30 10/03/23 06:30 Labs: Abnormal Lab Results - Last 24 Hours (Table) 10/02/23 10/02/23 10/03/23 Range/Units 17:24 20:15 00:33 WBC (4.50-10.00) X 10*3/uL RBC (4.40-5.60) X 10*6/uL Hgb (13.0-17.0) g/dL Hct (39.6-50.0) % MCV (80.0-97.0) FL MCHC (32.0-37.0) g/dL Neutrophils # (1.80-7.70) X 10*3/uL Eosinophils # (0.04-0.35) X 10*3/uL BUN (9.0-27.0) mg/dL Est GFR (CKD-EPI) (>=60) BUN/Creatinine Ratio (12.00-20.00) Ratio Glucose (70-110) mg/dL POC Glucose (mg/dL) 174 H 475 H 181 H (70-110) mg/dL Albumin (3.8-4.9) g/dL Globulin (1.6-3.3) g/dL Albumin/Globulin Ratio (1.60-3.17) Ratio 10/03/23 10/03/23 10/03/23 Range/Units 06:30 06:30 07:27 WBC 11.86 H (4.50-10.00) X 10*3/uL RBC 3.71 L (4.40-5.60) X 10*6/uL Hgb 11.0 L (13.0-17.0) g/dL Hct 36.1 L (39.6-50.0) % MCV 97.3 H (80.0-97.0) FL MCHC 30.5 L (32.0-37.0) g/dL Neutrophils # 8.49 H (1.80-7.70) X 10*3/uL Eosinophils # 0.75 H (0.04-0.35) X 10*3/uL BUN 60.5 H (9.0-27.0) mg/dL Est GFR (CKD-EPI) 49 L (>=60) BUN/Creatinine Ratio 40.33 H (12.00-20.00) Ratio Glucose 27 A* (70-110) mg/dL POC Glucose (mg/dL) 60 L (70-110) mg/dL Albumin 2.9 L (3.8-4.9) g/dL Globulin 3.8 H (1.6-3.3) g/dL Albumin/Globulin Ratio 0.76 L (1.60-3.17) Ratio 10/03/23 10/03/23 Range/Units 07:44 11:59 WBC (4.50-10.00) X 10*3/uL RBC (4.40-5.60) X 10*6/uL Hgb (13.0-17.0) g/dL Hct (39.6-50.0) % MCV (80.0-97.0) FL MCHC (32.0-37.0) g/dL Neutrophils # (1.80-7.70) X 10*3/uL Eosinophils # (0.04-0.35) X 10*3/uL BUN (9.0-27.0) mg/dL Est GFR (CKD-EPI) (>=60) BUN/Creatinine Ratio (12.00-20.00) Ratio Glucose (70-110) mg/dL POC Glucose (mg/dL) 56 L 142 H (70-110) mg/dL Albumin (3.8-4.9) g/dL Globulin (1.6-3.3) g/dL Albumin/Globulin Ratio (1.60-3.17) Ratio Microbiology - Last 24 Hours (Table) 10/02/23 14:46 Gram Stain - Preliminary Foot - Left 09/27/23 06:38 Blood Culture - Final Blood Assessment and Plan (1) Bacteremia Current Visit: No Status: Acute Code(s): R78.81 - BACTEREMIA SNOMED Code(s): 8282459 (2) Osteomyelitis of left foot Current Visit: Yes Status: Acute Code(s): M86.9 - OSTEOMYELITIS, UNSPECIFIED SNOMED Code(s): 4574571795289833 Plan: 1patient with an episode of sepsis in this patient who did have a fever tachyca rdia mild elevated white count source is likely urinary patient did have significantly positive UA and likely from enteric gram-negative pathogen, patient chest x-ray with mostly pulmonary vascular congestion no significant respiratory symptoms to be suspicious for pneumonia. 2patient with a chronic nonhealing wound to the left heel area , did have evidence of some necrotic tissue , patient did have Sharp excisional debridement left heel wound measuring 3 x 3 x 0.7 cm to bone completed on 10/02/2023 3positive blood culture with ESBL E. coli , however the patient is growing Pseudomonas and Proteus from the left heel wound, patient is status post surgical debridement and deep culture which are currently pending 4bone scan is positive suggestive left heel osteomyelitis 5patient is afebrile white count is slightly up and will be monitored closely, patient to continue the patient on meropenem 1 g every 8 hours, awaiting deep culture finalization to determine his discharge antibiotics Dictation was produced using [employer] dictation software. please excuse any grammatical, word or spelling errors. Time with Patient: Less than 30
[2023-10-03 17:28] LABS: Glucose,Whole Blood 291 mg/dL (70-110)
[2023-10-03] MEDS: metFORMIN 500 MG TAB PO SCH (18:12)
[2023-10-03] MEDS: FERROUS SULFATE 325 MG TAB PO SCH (18:12)
[2023-10-03] MEDS: ASPIRIN 81 MG PO SCH (18:12)
[2023-10-03 20:13] LABS: Glucose,Whole Blood 377 mg/dL (70-110)
[2023-10-03] MEDS: ATORVASTATIN 80 MG TAB PO SCH (20:37)
[2023-10-03] MEDS: INSULIN DETEMIR (LEVEMIR) 100 UNIT/ML SYR SQ SCH (20:37)
[2023-10-03] MEDS: GABAPENTIN 400 MG CAP PO SCH (20:37)
[2023-10-03] MEDS: ALPRAZolam 0.25 MG TAB PO PRN (20:47)
[2023-10-04] MEDS: MEROPENEM 1 GM in SODIUM CHLORIDE 0.9% 100 ML IVPB SCH ×3 (06:13→21:47)
[2023-10-04] MEDS: LEVOTHYROXINE 137 MCG TAB PO SCH (06:13)
[2023-10-04] MEDS: HYDROcodone/APAP 7.5-325MG 1 EACH TAB PO PRN ×3 (06:17→18:14)
[2023-10-04 07:16] LABS: Glucose,Whole Blood 41 mg/dL (70-110)
[2023-10-04 07:40] LABS: Glucose,Whole Blood 53 mg/dL (70-110)
[2023-10-04 08:13] LABS: Glucose,Whole Blood 104 mg/dL (70-110)
[2023-10-04] MEDS: INSULIN ASPART (NovoLOG) 100 UNIT/ML VIAL SQ SCH ×7 (09:00→21:43)
[2023-10-04] MEDS: ISOSORBIDE MONONITRATE ER 30 MG TAB.ER.24H PO SCH (09:01)
[2023-10-04] MEDS: amLODIPine 5 MG TAB PO SCH ×2 (09:01→21:37)
[2023-10-04] MEDS: FLUCONAZOLE 100 MG TAB PO SCH (09:01)
[2023-10-04] MEDS: TROSPIUM CHLORIDE 20 MG TABLET PO SCH (09:01)
[2023-10-04] MEDS: ESCITALOPRAM 10 MG TAB PO SCH (09:01)
[2023-10-04] MEDS: METOPROLOL TARTRATE 50 MG TAB PO SCH ×2 (09:02→18:15)
[2023-10-04] MEDS: SODIUM BICARBONATE TAB 650 MG TAB PO SCH ×2 (09:02→21:37)
[2023-10-04] MEDS: HEPARIN SODIUM,PORCINE 5,000 UNIT/ML 1 ML VIAL SQ SCH ×2 (09:02→21:38)
[2023-10-04] MEDS: FAMOTIDINE 20 MG TAB PO SCH (09:02)
[2023-10-04] MEDS: COLLAGENASE 250 UNIT/GM OINTMENT 30 GM TUBE TOPICAL SCH (10:28)
[2023-10-04] MEDS: HYDROmorphone 0.5 MG/0.5 ML SYRINGE IVP PRN ×2 (10:28→21:57)
[2023-10-04 10:52] LABS: Basophils # (A) 0.06 X 10*3/uL (0.00-0.10); Basophils % (A) 0.6 %; Eosinophils # (A) 0.48 X 10*3/uL (0.04-0.35); Eosinophils % (A) 4.4 %; HCT 37.3 % (39.6-50.0); HGB 11.3 g/dL (13.0-17.0); Lymphocytes # (A) 1.45 X 10*3/uL (0.90-5.00); Lymphocytes % (A) 13.4 %; MCH 29.4 pg (27.0-32.0); MCHC 30.3 g/dL (32.0-37.0); MCV 96.9 FL (80.0-97.0); Mean Platelet Volume 10.1 FL (9.5-12.2); Monocytes # (A) 0.66 X 10*3/uL (0.20-1.00); Monocytes % (A) 6.1 %; NRBC Per 100 WBC 0 X 10*3/uL (0.00-0.01); Neutrophils # (A) 8.14 X 10*3/uL (1.80-7.70); Neutrophils % (A) 74.9 %; Platelet Count 366 X 10*3/uL (140-440); RBC 3.85 X 10*6/uL (4.40-5.60); RDW 13.6 % (11.5-14.5); WBC 10.85 X 10*3/uL (4.50-10.00)
--- NOTE | 2023-10-04 11:00 | P.PN ---
Subjective Patient is seen for follow-up for acute kidney injury and chronic kidney disease. Serum creatinine decreased to 1.37 mg/dL from 2.0 on admission. It was 1.5 yesterday. Has indwelling sutton catheter. Sitting up in bed. No significant complaints today. Objective - Vital Signs Vital signs: Vital Signs Temp 98.3 F 10/04/23 07:09 Pulse 58 L 10/04/23 07:09 Resp 16 10/04/23 07:09 BP 129/66 10/04/23 07:09 Pulse Ox 100 10/04/23 07:09 FiO2 Intake & Output 10/03/23 10/04/23 10/04/23 18:59 06:59 18:59 Intake Total 200 Output Total 1600 1175 Balance -1600 -975 Intake: Oral 200 Output: Urine 1600 1175 Other: Voiding Method Indwelling Catheter Indwelling Catheter - Exam Patient is comfortable awake not in any acute distress Examination of the heart S1 and S2 Examination lungs decreased breath sounds at the bases Abdomen is soft nontender Examination of the lower extremities shows 1+ edema left leg. Left foot is wrapped [employer] exam grossly intact - Labs CBC & Chem 7: 10/04/23 06:37 10/03/23 06:30 Labs: Abnormal Lab Results - Last 24 Hours (Table) 10/03/23 10/03/23 10/03/23 Range/Units 06:30 11:59 17:23 WBC (4.50-10.00) X 10*3/uL RBC (4.40-5.60) X 10*6/uL Hgb (13.0-17.0) g/dL Hct (39.6-50.0) % MCHC (32.0-37.0) g/dL Immature Gran # (0.00-0.04) X 10*3/uL Neutrophils # (1.80-7.70) X 10*3/uL Eosinophils # (0.04-0.35) X 10*3/uL BUN 60.5 H (9.0-27.0) mg/dL Est GFR (CKD-EPI) 49 L (>=60) BUN/Creatinine Ratio 40.33 H (12.00-20.00) Ratio Glucose 27 A* (70-110) mg/dL POC Glucose (mg/dL) 142 H 291 H (70-110) mg/dL Albumin 2.9 L (3.8-4.9) g/dL Globulin 3.8 H (1.6-3.3) g/dL Albumin/Globulin Ratio 0.76 L (1.60-3.17) Ratio 10/03/23 10/04/23 10/04/23 Range/Units 20:11 06:37 07:10 WBC 10.85 H (4.50-10.00) X 10*3/uL RBC 3.85 L (4.40-5.60) X 10*6/uL Hgb 11.3 L (13.0-17.0) g/dL Hct 37.3 L (39.6-50.0) % MCHC 30.3 L (32.0-37.0) g/dL Immature Gran # 0.06 H (0.00-0.04) X 10*3/uL Neutrophils # 8.14 H (1.80-7.70) X 10*3/uL Eosinophils # 0.48 H (0.04-0.35) X 10*3/uL BUN (9.0-27.0) mg/dL Est GFR (CKD-EPI) (>=60) BUN/Creatinine Ratio (12.00-20.00) Ratio Glucose (70-110) mg/dL POC Glucose (mg/dL) 377 H 41 L (70-110) mg/dL Albumin (3.8-4.9) g/dL Globulin (1.6-3.3) g/dL Albumin/Globulin Ratio (1.60-3.17) Ratio 10/04/23 Range/Units 07:38 WBC (4.50-10.00) X 10*3/uL RBC (4.40-5.60) X 10*6/uL Hgb (13.0-17.0) g/dL Hct (39.6-50.0) % MCHC (32.0-37.0) g/dL Immature Gran # (0.00-0.04) X 10*3/uL Neutrophils # (1.80-7.70) X 10*3/uL Eosinophils # (0.04-0.35) X 10*3/uL BUN (9.0-27.0) mg/dL Est GFR (CKD-EPI) (>=60) BUN/Creatinine Ratio (12.00-20.00) Ratio Glucose (70-110) mg/dL POC Glucose (mg/dL) 53 L (70-110) mg/dL Albumin (3.8-4.9) g/dL Globulin (1.6-3.3) g/dL Albumin/Globulin Ratio (1.60-3.17) Ratio Microbiology - Last 24 Hours (Table) 10/02/23 14:46 Gram Stain - Preliminary Foot - Left Wound Culture - Preliminary Gram Neg Bacilli Assessment and Plan Assessment: 1. Acute kidney injury secondary to ATN secondary to severe sepsis, hypovolemia, diuretics. Creatinine 2.05 on admission -1.5 on 10/03/2023. No hydronephrosis noted on kidney ultrasound. 2. Chronic kidney disease stage II with baseline creatinine 1-1.2. Suspect diabetic kidney disease. UA dated 09/20/2023 showed UTI but no proteinuria. 3. Diabetes mellitus. 4. Hypertension with chronic kidney disease. Controlled. 5. Hypovolemic hyponatremia. Component of hypertonicity from hyperglycemia. 6. Severe sepsis secondary to UTI and nonhealing left foot wound. Blood cultures positive for E. coli. ID following. On IV antibiotics. Plan: Repeat labs Encourage increased oral intake Can likely discontinue sodium bicarb upon discharge as metabolic acidosis has improved.
[2023-10-04 11:10] LABS: Blood Urea Nitrogen 61.1 mg/dL (9.0-27.0); Calcium 8.9 mg/dL (8.7-10.3); Carbon Dioxide 23.7 mmol/L (21.6-31.8); Chloride 104 mmol/L (96-109); Glucose 28 mg/dL (70-110); Potassium 5.1 mmol/L (3.5-5.5); Sodium 139 mmol/L (135-145)
--- NOTE | 2023-10-04 11:41 | P.PN ---
Subjective Progress Note Date: 10/04/23 Should seen and examined today as a follow-up for left heel debridement. Patient states pain is better controlled today. He was seen by wound care yesterday with recommendations for continued local wound care. He is afebrile. Objective - Vital Signs Vital signs: Vital Signs Temp 98.3 F 10/04/23 07:09 Pulse 58 L 10/04/23 07:09 Resp 16 10/04/23 07:09 BP 129/66 10/04/23 07:09 Pulse Ox 100 10/04/23 07:09 FiO2 Intake & Output 10/03/23 10/04/23 10/04/23 18:59 06:59 18:59 Intake Total 200 Output Total 1600 1175 Balance -1600 -975 Weight 77.111 kg Intake: Oral 200 Output: Urine 1600 1175 Other: Voiding Method Indwelling Catheter Indwelling Catheter - Exam General appearance: The patient is alert, oriented, appears in no acute distress. HET: Head is normocephalic and atraumatic. Pupils are equal and reactive. Extremities: Leftfoot with dressing clean dry and intact. Neurological: No focal deficits. Strength and sensation are grossly intact. - Labs CBC & Chem 7: 10/04/23 06:37 10/04/23 06:37 Labs: Abnormal Lab Results - Last 24 Hours (Table) 10/03/23 10/03/23 10/03/23 Range/Units 06:30 11:59 17:23 WBC (4.50-10.00) X 10*3/uL RBC (4.40-5.60) X 10*6/uL Hgb (13.0-17.0) g/dL Hct (39.6-50.0) % MCHC (32.0-37.0) g/dL Immature Gran # (0.00-0.04) X 10*3/uL Neutrophils # (1.80-7.70) X 10*3/uL Eosinophils # (0.04-0.35) X 10*3/uL BUN 60.5 H (9.0-27.0) mg/dL Est GFR (CKD-EPI) 49 L (>=60) BUN/Creatinine Ratio 40.33 H (12.00-20.00) Ratio Glucose 27 A* (70-110) mg/dL POC Glucose (mg/dL) 142 H 291 H (70-110) mg/dL Albumin 2.9 L (3.8-4.9) g/dL Globulin 3.8 H (1.6-3.3) g/dL Albumin/Globulin Ratio 0.76 L (1.60-3.17) Ratio 10/03/23 10/04/23 10/04/23 Range/Units 20:11 06:37 06:37 WBC 10.85 H (4.50-10.00) X 10*3/uL RBC 3.85 L (4.40-5.60) X 10*6/uL Hgb 11.3 L (13.0-17.0) g/dL Hct 37.3 L (39.6-50.0) % MCHC 30.3 L (32.0-37.0) g/dL Immature Gran # 0.06 H (0.00-0.04) X 10*3/uL Neutrophils # 8.14 H (1.80-7.70) X 10*3/uL Eosinophils # 0.48 H (0.04-0.35) X 10*3/uL BUN 61.1 H (9.0-27.0) mg/dL Est GFR (CKD-EPI) 58 L (>=60) BUN/Creatinine Ratio 47.00 H (12.00-20.00) Ratio Glucose 28 A* (70-110) mg/dL POC Glucose (mg/dL) 377 H (70-110) mg/dL Albumin (3.8-4.9) g/dL Globulin (1.6-3.3) g/dL Albumin/Globulin Ratio (1.60-3.17) Ratio 10/04/23 10/04/23 Range/Units 07:10 07:38 WBC (4.50-10.00) X 10*3/uL RBC (4.40-5.60) X 10*6/uL Hgb (13.0-17.0) g/dL Hct (39.6-50.0) % MCHC (32.0-37.0) g/dL Immature Gran # (0.00-0.04) X 10*3/uL Neutrophils # (1.80-7.70) X 10*3/uL Eosinophils # (0.04-0.35) X 10*3/uL BUN (9.0-27.0) mg/dL Est GFR (CKD-EPI) (>=60) BUN/Creatinine Ratio (12.00-20.00) Ratio Glucose (70-110) mg/dL POC Glucose (mg/dL) 41 L 53 L (70-110) mg/dL Albumin (3.8-4.9) g/dL Globulin (1.6-3.3) g/dL Albumin/Globulin Ratio (1.60-3.17) Ratio Microbiology - Last 24 Hours (Table) 10/02/23 14:46 Gram Stain - Preliminary Foot - Left Wound Culture - Preliminary Gram Neg Bacilli Assessment and Plan Assessment: 1. Nonhealing left heel wound status post sharp excisional debridement 2. History coronary artery disease status post CABG 3. Diabetes mellitus 4. Bacteremia 5. Urinary tract infection 6. History of peripheral arterial disease Plan: 1. Consult to wound care clinic, patient known to them 2. Local wound care per recommendations from wound care clinic 3. Continue antibiotics per recommendations from infectious disease 4. Apply green soft offloading boot to patient while in bed in chair 5. Offloading heel pressure when ambulating 6. Patient to follow-up in outpatient setting with vascular surgery Thank you for this consultation. We will sign off at this time. The impression and plan of care has been dictated as directed. Dr. Romeo I performed a history and examination of this patient, discussed the same with the dictator. I agree with the dictator's note ,documented as a scribe. Any additional findings or plans will be noted.
[2023-10-04 11:56] LABS: Glucose,Whole Blood 196 mg/dL (70-110)
[2023-10-04 17:40] LABS: Glucose,Whole Blood 415 mg/dL (70-110)
[2023-10-04] MEDS: ASPIRIN 81 MG PO SCH (18:15)
[2023-10-04] MEDS: metFORMIN 500 MG TAB PO SCH (18:15)
[2023-10-04] MEDS: FERROUS SULFATE 325 MG TAB PO SCH (18:16)
[2023-10-04 20:38] LABS: Glucose,Whole Blood 394 mg/dL (70-110)
[2023-10-04] MEDS: ATORVASTATIN 80 MG TAB PO SCH (21:37)
[2023-10-04] MEDS: GABAPENTIN 400 MG CAP PO SCH (21:37)
[2023-10-04] MEDS: INSULIN DETEMIR (LEVEMIR) 100 UNIT/ML SYR SQ SCH (21:43)
[2023-10-04] MEDS: ALPRAZolam 0.25 MG TAB PO PRN (21:57)
[2023-10-05 04:33] LABS: Glucose,Whole Blood 124 mg/dL (70-110)
[2023-10-05] MEDS: MEROPENEM 1 GM in SODIUM CHLORIDE 0.9% 100 ML IVPB SCH (05:30)
[2023-10-05] MEDS: LEVOTHYROXINE 137 MCG TAB PO SCH (06:24)
--- NOTE | 2023-10-05 06:26 | P.PN ---
Subjective Progress Note Date: 10/04/23 This is a 72-year-old male who was admitted with acute kidney injury with acute tubular necrosis as well as having an unhealing left foot infection with osteomyelitis being closely monitored. Patient is status post debridement of the left heel ulcer with vascular surgery and deep tissues cultures were obtained maintained on antibiotics with infectious disease following. Awaiting finalized cultures to determine appropriate discharge antibiotics. Patient will be returning to ECF on discharge. Patient is currently afebrile with no reported chest pain or shortness of breath. Patient tolerating diet and would recommend aspiration precautions. Patient also poorly controlled diabetic with extremely sensitive blood sugars and uncontrolled hyperglycemia. We'll continue to monitor Accu-Cheks before meals and at bedtime and continue current regimen. Patient has a tendency to drop drastically overnight and have low blood sugar readings in the morning. Case management following as patient will be returning to ECF on discharge Review of systems: Constitutional: No reports of fatigue, fever, or chills Cardiovascular: No reports of chest pain or palpitations Respiratory: No reports of shortness of breath or cough GI: No reports of nausea, no reports of vomiting, no diarrhea : No reports of dysuria or retention Neurovascular: reports of generalized weakness All medications have been reviewed PHYSICAL EXAMINATION: GENERAL: The patient is alert and oriented , Well developed, elderly appearing, thin built HEENT: Pupils are round and equally reacting to light. EOMI. no scleral icterus. No conjunctival pallor. Normocephalic, atraumatic. No pharyngeal erythema. No thyromegaly. CARDIOVASCULAR: S1 and S2 muffled PULMONARY: diminished breath sounds bilaterally with no wheezing or rhonchi noted. ABDOMEN: soft. Nontender on exam. non-distended, normoactive bowel sounds. No palpable organomegaly. MUSCULOSKELETAL: No joint swelling or deformity. EXTREMITIES: No cyanosis, clubbing, or pedal edema. Left foot dressing is dry and intact NEUROLOGICAL: Gross neurological examination did not reveal any focal deficits. Diffuse weakness SKIN: No rashes. Assessment: Acute kidney injury from acute tubular necrosis and hypokalemia, improving Left foot infection with nonhealing osteomyelitis, Pseudomonas and Proteus in the cultures E. coli sepsis, present on admission Donna from the urine Diabetes mellitus, type II uncontrolled with hypo-and hyperglycemia Blevins urinary retention next and hypertension Hyperlipidemia GI prophylaxis DVT prophylaxis Full code Plan: Recommend to continue with current medications and management with nephrology as well as infectious disease following. Kidney functions are improving and will continue current medication regimen Patient continues on IV antibiotics with infectious disease following and is status post left heel debridement with vascular surgery and deep tissue cultures were obtained awaiting finalized cultures to determine discharge antibiotics Case management following as patient will be returning to ECF once cleared by consultations Will discuss further with infectious disease on discharge planning patient will require midline or PICC line for discharge Follow-up labs ordered for a.m. Recommend aspiration precautions and supervision with meals Continue to monitor blood sugars closely and continued Accu-Cheks before meals and at bedtime and will continue current regimen Due to multiple complex medical issues, prognosis is guarded Possible discharge in the next 24 hours The impression and plan of care has been dictated by Aileen Poon, nurse practitioner as directed. Dr. Fred PARR I have performed a history and examination and MDM of this patient, discussed the same with the dictator, and agree with the dictator's assessment and plan as written ,documented as a scribe. Based on total visit time, I have performed more than 50% of the visit. Any additional findings or plans will be noted. Objective - Vital Signs Vital signs: Vital Signs Temp 97.7 F 10/05/23 02:06 Pulse 60 10/05/23 02:06 Resp 18 10/05/23 02:06 BP 121/56 10/05/23 02:06 Pulse Ox 96 10/05/23 02:06 FiO2 Intake & Output 10/04/23 10/04/23 10/05/23 06:59 18:59 06:59 Intake Total 200 Output Total 1175 1400 2600 Balance -975 -1400 -2600 Weight 77.111 kg Intake: Oral 200 Output: Urine 1175 1400 2600 Other: Voiding Method Indwelling Catheter Indwelling Catheter Indwelling Catheter # Voids 6 - Labs CBC & Chem 7: 10/04/23 06:37 10/04/23 06:37 Labs: Abnormal Lab Results - Last 24 Hours (Table) 10/04/23 10/04/23 10/04/23 Range/Units 06:37 06:37 07:10 WBC 10.85 H (4.50-10.00) X 10*3/uL RBC 3.85 L (4.40-5.60) X 10*6/uL Hgb 11.3 L (13.0-17.0) g/dL Hct 37.3 L (39.6-50.0) % MCHC 30.3 L (32.0-37.0) g/dL Immature Gran # 0.06 H (0.00-0.04) X 10*3/uL Neutrophils # 8.14 H (1.80-7.70) X 10*3/uL Eosinophils # 0.48 H (0.04-0.35) X 10*3/uL BUN 61.1 H (9.0-27.0) mg/dL Est GFR (CKD-EPI) 58 L (>=60) BUN/Creatinine Ratio 47.00 H (12.00-20.00) Ratio Glucose 28 A* (70-110) mg/dL POC Glucose (mg/dL) 41 L (70-110) mg/dL 10/04/23 10/04/23 10/04/23 Range/Units 07:38 11:54 17:39 WBC (4.50-10.00) X 10*3/uL RBC (4.40-5.60) X 10*6/uL Hgb (13.0-17.0) g/dL Hct (39.6-50.0) % MCHC (32.0-37.0) g/dL Immature Gran # (0.00-0.04) X 10*3/uL Neutrophils # (1.80-7.70) X 10*3/uL Eosinophils # (0.04-0.35) X 10*3/uL BUN (9.0-27.0) mg/dL Est GFR (CKD-EPI) (>=60) BUN/Creatinine Ratio (12.00-20.00) Ratio Glucose (70-110) mg/dL POC Glucose (mg/dL) 53 L 196 H 415 H (70-110) mg/dL 10/04/23 10/05/23 Range/Units 20:36 04:30 WBC (4.50-10.00) X 10*3/uL RBC (4.40-5.60) X 10*6/uL Hgb (13.0-17.0) g/dL Hct (39.6-50.0) % MCHC (32.0-37.0) g/dL Immature Gran # (0.00-0.04) X 10*3/uL Neutrophils # (1.80-7.70) X 10*3/uL Eosinophils # (0.04-0.35) X 10*3/uL BUN (9.0-27.0) mg/dL Est GFR (CKD-EPI) (>=60) BUN/Creatinine Ratio (12.00-20.00) Ratio Glucose (70-110) mg/dL POC Glucose (mg/dL) 394 H 124 H (70-110) mg/dL Microbiology - Last 24 Hours (Table) 10/02/23 14:46 Anaerobic Culture - Preliminary Foot - Left 10/02/23 14:46 Gram Stain - Final Foot - Left Wound Culture - Final Pseudomonas aeruginosa Proteus mirabilis
[2023-10-05 07:15] LABS: Glucose,Whole Blood 94 mg/dL (70-110)
[2023-10-05 07:43] LABS: Basophils # (A) 0.1 k/uL (0-0.2); Basophils % (A) 1 %; Eosinophils # (A) 0.6 k/uL (0-0.7); Eosinophils % (A) 6 %; HCT 35.1 % (39.0-53.0); HGB 11.2 gm/dL (13.0-17.5); Hypochromasia Slight; Lymphocytes # (A) 1.5 k/uL (1.0-4.8); Lymphocytes % (A) 14 %; MCH 30.7 pg (25.0-35.0); MCV 95.9 fL (80.0-100.0); Mean Platelet Volume 8.1; Monocytes # (A) 0.4 k/uL (0-1.0); Monocytes % (A) 4 %; Neutrophils # (A) 8.1 k/uL (1.3-7.7); Neutrophils % (A) 75 %; Platelet Count 375 k/uL (150-450); RBC 3.66 m/uL (4.30-5.90); RDW 13.6 % (11.5-15.5); WBC 10.9 k/uL (3.8-10.6)
[2023-10-05 07:47] VITALS: RESP 16
[2023-10-05 07:54] LABS: African American GFR (CKD) 72 (>60 ml/min/1.73 sqM); Anion Gap 9 mmol/L; Blood Urea Nitrogen 69 mg/dL (9-20); Calcium 8.9 mg/dL (8.4-10.2); Carbon Dioxide 27 mmol/L (22-30); Chloride 101 mmol/L (98-107); Glucose 86 mg/dL (74-99); Non-African American GFR(CKD) 62 (>60 ml/min/1.73 sqM); Potassium 5.4 mmol/L (3.5-5.1); Sodium 137 mmol/L (137-145)
[2023-10-05] MEDS: HEPARIN SODIUM,PORCINE 5,000 UNIT/ML 1 ML VIAL SQ SCH (08:25)
[2023-10-05] MEDS: FLUCONAZOLE 100 MG TAB PO SCH (08:25)
[2023-10-05] MEDS: METOPROLOL TARTRATE 50 MG TAB PO SCH (08:25)
[2023-10-05] MEDS: amLODIPine 5 MG TAB PO SCH (08:25)
[2023-10-05] MEDS: FAMOTIDINE 20 MG TAB PO SCH (08:25)
[2023-10-05] MEDS: ISOSORBIDE MONONITRATE ER 30 MG TAB.ER.24H PO SCH (08:25)
[2023-10-05] MEDS: TROSPIUM CHLORIDE 20 MG TABLET PO SCH (08:25)
[2023-10-05] MEDS: ESCITALOPRAM 10 MG TAB PO SCH (08:25)
[2023-10-05] MEDS: SODIUM BICARBONATE TAB 650 MG TAB PO SCH (08:25)
[2023-10-05] MEDS: INSULIN ASPART (NovoLOG) 100 UNIT/ML VIAL SQ SCH ×4 (08:35→13:12)
[2023-10-05] MEDS: HYDROcodone/APAP 7.5-325MG 1 EACH TAB PO PRN (09:24)
[2023-10-05] MEDS ORDERED: PIPERACILLIN-TAZOBACTAM 3.375 GM in SODIUM CHLORIDE 0.9% 100 ML IVPB STA (10:01)
[2023-10-05] MEDS: COLLAGENASE 250 UNIT/GM OINTMENT 30 GM TUBE TOPICAL SCH (11:32)
[2023-10-05 12:03] LABS: Glucose,Whole Blood 194 mg/dL (70-110)
--- NOTE | 2023-10-05 12:40 | P.PN ---
Subjective Progress Note Date: 10/04/23 Principal diagnosis: Reason for follow-up is fever and bacteremia Patient is a 72-year-old male with a past medical history significant for diabetes mellitus hypertension hyperlipidemia ID coronary artery disease long term resident patient has been sent to the ER for evaluation of possible infection at the patient was noticed to have a fever of 100 F at the local long term, patient did have a positive UA also noticed to have a positive blood culture with ESBL E. coli, patient did have Sharp excisional debridement left heel wound measuring 3 x 3 x 0.7 cm to bone completed on 10/02/2023 On today's evaluation that is 10/04/2023 the patient remains to be afebrile, the patient is breathing comfortably on room air and no need for supplemental oxygen, the patient denies having any chest pain or cough and no sputum production, patient denies nausea vomiting or any diarrhea, and no abdominal pain, the patient pain to the left heel has decreased intensity Patient did have white count is 10.85, creatinine 1.3, blood culture with ESBL E. coli, left heel with Pseudomonas aeruginosa and Proteus mirabilis, urine with yeast, deep OR culture from the left heel pending Objective - Vital Signs Vital signs: Vital Signs Temp 98.3 F 10/04/23 07:09 Pulse 58 L 10/04/23 07:09 Resp 16 10/04/23 07:09 BP 129/66 10/04/23 07:09 Pulse Ox 100 10/04/23 07:09 FiO2 Intake & Output 10/03/23 10/04/23 10/04/23 18:59 06:59 18:59 Intake Total 200 Output Total 1600 1175 Balance -1600 -975 Weight 77.111 kg Intake: Oral 200 Output: Urine 1600 1175 Other: Voiding Method Indwelling Catheter Indwelling Catheter Indwelling Catheter - Exam GENERAL DESCRIPTION: An elderly male up in bed in no distress RESPIRATORY SYSTEM: Unlabored breathing , clear to auscultation anteriorly HEART: S1 S2 regular rate and rhythm , ABDOMEN: Soft , no tenderness EXTREMITIES: Left heel wound is currently dressed - Labs CBC & Chem 7: 10/05/23 06:33 10/05/23 06:33 Labs: Abnormal Lab Results - Last 24 Hours (Table) 10/03/23 10/03/23 10/04/23 Range/Units 17:23 20:11 06:37 WBC 10.85 H (4.50-10.00) X 10*3/uL RBC 3.85 L (4.40-5.60) X 10*6/uL Hgb 11.3 L (13.0-17.0) g/dL Hct 37.3 L (39.6-50.0) % MCHC 30.3 L (32.0-37.0) g/dL Immature Gran # 0.06 H (0.00-0.04) X 10*3/uL Neutrophils # 8.14 H (1.80-7.70) X 10*3/uL Eosinophils # 0.48 H (0.04-0.35) X 10*3/uL BUN (9.0-27.0) mg/dL Est GFR (CKD-EPI) (>=60) BUN/Creatinine Ratio (12.00-20.00) Ratio Glucose (70-110) mg/dL POC Glucose (mg/dL) 291 H 377 H (70-110) mg/dL 10/04/23 10/04/23 10/04/23 Range/Units 06:37 07:10 07:38 WBC (4.50-10.00) X 10*3/uL RBC (4.40-5.60) X 10*6/uL Hgb (13.0-17.0) g/dL Hct (39.6-50.0) % MCHC (32.0-37.0) g/dL Immature Gran # (0.00-0.04) X 10*3/uL Neutrophils # (1.80-7.70) X 10*3/uL Eosinophils # (0.04-0.35) X 10*3/uL BUN 61.1 H (9.0-27.0) mg/dL Est GFR (CKD-EPI) 58 L (>=60) BUN/Creatinine Ratio 47.00 H (12.00-20.00) Ratio Glucose 28 A* (70-110) mg/dL POC Glucose (mg/dL) 41 L 53 L (70-110) mg/dL 10/04/23 Range/Units 11:54 WBC (4.50-10.00) X 10*3/uL RBC (4.40-5.60) X 10*6/uL Hgb (13.0-17.0) g/dL Hct (39.6-50.0) % MCHC (32.0-37.0) g/dL Immature Gran # (0.00-0.04) X 10*3/uL Neutrophils # (1.80-7.70) X 10*3/uL Eosinophils # (0.04-0.35) X 10*3/uL BUN (9.0-27.0) mg/dL Est GFR (CKD-EPI) (>=60) BUN/Creatinine Ratio (12.00-20.00) Ratio Glucose (70-110) mg/dL POC Glucose (mg/dL) 196 H (70-110) mg/dL Microbiology - Last 24 Hours (Table) 10/02/23 14:46 Gram Stain - Preliminary Foot - Left Wound Culture - Preliminary Gram Neg Bacilli Assessment and Plan (1) Bacteremia Current Visit: No Status: Acute Code(s): R78.81 - BACTEREMIA SNOMED Code(s): 9774239 (2) Osteomyelitis of left foot Current Visit: Yes Status: Acute Code(s): M86.9 - OSTEOMYELITIS, UNSPECIFIED SNOMED Code(s): 3901877714289637 Plan: 1patient with an episode of sepsis in this patient who did have a fever tachycardia mild elevated white count source is likely urinary patient did have significantly positive UA and likely from enteric gram-negative pathogen, patient chest x-ray with mostly pulmonary vascular congestion no significant respiratory symptoms to be suspicious for pneumonia. 2patient with a chronic nonhealing wound to the left heel area , did have evidence of some necrotic tissue , patient did have Sharp excisional debridement left heel wound measuring 3 x 3 x 0.7 cm to bone completed on 10/02/2023 3positive blood culture with ESBL E. coli , however the patient is growing Pseudomonas and Proteus from the left heel wound, patient is status post surgical debridement and deep culture which are currently pending 4bone scan is positive suggestive left heel osteomyelitis 5patient is afebrile white count is trending down plan at this time is to continue the patient on meropenem 1 g every 8 hours, while waiting for deep culture finalization to determine his discharge antibiotics Dictation was produced using [employer] dictation software. please excuse any grammatical, word or spelling errors. Time with Patient: Less than 30
--- NOTE | 2023-10-05 12:43 | P.PN ---
Subjective Progress Note Date: 10/05/23 Principal diagnosis: Reason for follow-up is fever and bacteremia Patient is a 72-year-old male with a past medical history significant for diabetes mellitus hypertension hyperlipidemia [place] coronary artery disease [facility] resident patient has been sent to the ER for evaluation of possible infection at the patient was noticed to have a fever of 100 F at the local [facility], patient did have a positive UA also noticed to have a positive blood culture with ESBL E. coli, patient did have Sharp excisional debridement left heel wound measuring 3 x 3 x 0.7 cm to bone completed on 10/02/2023 On today's evaluation that is 10/05/2023, the patient continues to be afebrile and is breathing comfortably on 2 L nasal cannula oxygen, and patient denies any shortness of breath, chest pain and no cough or sputum production, patient denies abdominal pain, no nausea/vomiting and no diarrhea has been reported, the patient is complaining of pain to the left heel however has decreased intensity Patient did have white count is 10.9 , creatinine 1.17, blood culture with ESBL E. coli, left heel with Pseudomonas aeruginosa and Proteus mirabilis, urine with yeast, deep OR culture from the left heel growing Pseudomonas and Proteus Objective - Vital Signs Vital signs: Vital Signs Temp 98.0 F 10/05/23 07:15 Pulse 61 10/05/23 07:15 Resp 16 10/05/23 07:15 BP 124/68 10/05/23 07:15 Pulse Ox 98 10/05/23 07:15 FiO2 Intake & Output 10/04/23 10/05/23 10/05/23 18:59 06:59 18:59 Output Total 1400 2600 Balance -1400 -2600 Weight 77.111 kg Output: Urine 1400 2600 Other: Voiding Method Indwelling Catheter Indwelling Catheter # Voids 6 - Exam GENERAL DESCRIPTION: An elderly male up in bed in no distress RESPIRATORY SYSTEM: Unlabored breathing , clear to auscultation anteriorly HEART: S1 S2 regular rate and rhythm , ABDOMEN: Soft , no tenderness EXTREMITIES: Left heel wound is currently dressed - Labs CBC & Chem 7: 10/05/23 06:33 10/05/23 06:33 Labs: Abnormal Lab Results - Last 24 Hours (Table) 10/04/23 10/04/23 10/04/23 Range/Units 06:37 06:37 11:54 WBC 10.85 H (4.50-10.00) X 10*3/uL RBC 3.85 L (4.40-5.60) X 10*6/uL Hgb 11.3 L (13.0-17.0) g/dL Hct 37.3 L (39.6-50.0) % MCHC 30.3 L (32.0-37.0) g/dL Immature Gran # 0.06 H (0.00-0.04) X 10*3/uL Neutrophils # 8.14 H (1.80-7.70) X 10*3/uL Eosinophils # 0.48 H (0.04-0.35) X 10*3/uL Potassium (3.5-5.1) mmol/L BUN 61.1 H (9.0-27.0) mg/dL Est GFR (CKD-EPI) 58 L (>=60) BUN/Creatinine Ratio 47.00 H (12.00-20.00) Ratio Glucose 28 A* (70-110) mg/dL POC Glucose (mg/dL) 196 H (70-110) mg/dL 10/04/23 10/04/23 10/05/23 Range/Units 17:39 20:36 04:30 WBC (4.50-10.00) X 10*3/uL RBC (4.40-5.60) X 10*6/uL Hgb (13.0-17.0) g/dL Hct (39.6-50.0) % MCHC (32.0-37.0) g/dL Immature Gran # (0.00-0.04) X 10*3/uL Neutrophils # (1.80-7.70) X 10*3/uL Eosinophils # (0.04-0.35) X 10*3/uL Potassium (3.5-5.1) mmol/L BUN (9.0-27.0) mg/dL Est GFR (CKD-EPI) (>=60) BUN/Creatinine Ratio (12.00-20.00) Ratio Glucose (70-110) mg/dL POC Glucose (mg/dL) 415 H 394 H 124 H (70-110) mg/dL 10/05/23 10/05/23 Range/Units 06:33 06:33 WBC 10.9 H (4.50-10.00) X 10*3/uL RBC 3.66 L (4.40-5.60) X 10*6/uL Hgb 11.2 L (13.0-17.0) g/dL Hct 35.1 L (39.6-50.0) % MCHC (32.0-37.0) g/dL Immature Gran # (0.00-0.04) X 10*3/uL Neutrophils # 8.1 H (1.80-7.70) X 10*3/uL Eosinophils # (0.04-0.35) X 10*3/uL Potassium 5.4 H (3.5-5.1) mmol/L BUN 69 H (9.0-27.0) mg/dL Est GFR (CKD-EPI) (>=60) BUN/Creatinine Ratio (12.00-20.00) Ratio Glucose (70-110) mg/dL POC Glucose (mg/dL) (70-110) mg/dL Microbiology - Last 24 Hours (Table) 10/02/23 14:46 Anaerobic Culture - Preliminary Foot - Left 10/02/23 14:46 Gram Stain - Final Foot - Left Wound Culture - Final Pseudomonas aeruginosa Proteus mirabilis Assessment and Plan (1) Bacteremia Current Visit: No Status: Acute Code(s): R78.81 - BACTEREMIA SNOMED Code(s): 1762316 (2) Osteomyelitis of left foot Current Visit: Yes Status: Acute Code(s): M86.9 - OSTEOMYELITIS, UNSPECIFIED SNOMED Code(s): 4040256947795381 Plan: 1patient with an episode of sepsis in this patient who did have a fever tachycardia mild elevated white count source is likely urinary patient did have significantly positive UA and likely from enteric gram-negative pathogen, patient chest x-ray with mostly pulmonary vascular congestion no significant respiratory symptoms to be suspicious for pneumonia. 2patient with a chronic nonhealing wound to the left heel area , did have evidence of some necrotic tissue , patient did have Sharp excisional debridement left heel wound measuring 3 x 3 x 0.7 cm to bone completed on 10/02/2023 3positive blood culture with ESBL E. coli repeat blood culture has been negative and the patient has received about 10 day course of meropenem that should be enough 4- the patient is growing Pseudomonas and Proteus from the left heel wound, patient is status post surgical debridement and deep culture which are growing Pseudomonas and Proteus, the patient bone scan is positive suggestive left heel osteomyelitis, plan is for a 5 week course of IV Zosyn on discharge as patient has received almost 10 days of antibiotic is already healed and closed the patient follow-up this was discussed with the APPLICATION MANAGER for admitting the working on discharge Dictation was produced using [employer] dictation software. please excuse any grammatical, word or spelling errors. Time with Patient: Less than 30
--- NOTE | 2023-10-05 12:44 | P.PN ---
Subjective Patient is seen for follow-up for acute kidney injury and chronic kidney disease. Serum creatinine decreased to 1.17 mg/dL from 2.0 on admission. Has indwelling sutton catheter. Sitting up in bed. No significant complaints today. Objective - Vital Signs Vital signs: Vital Signs Temp 98.0 F 10/05/23 07:15 Pulse 61 10/05/23 07:15 Resp 16 10/05/23 07:15 BP 124/68 10/05/23 07:15 Pulse Ox 98 10/05/23 07:15 FiO2 Intake & Output 10/04/23 10/05/23 10/05/23 18:59 06:59 18:59 Output Total 1400 2600 1966 Balance -1399 Weight 77.111 kg Output: Urine 1400 2600 1100 Post Void Residual 867 Other: Voiding Method Indwelling Catheter Indwelling Catheter Indwelling Catheter # Voids 6 2 - Exam Patient is comfortable awake not in any acute distress Examination of the heart S1 and S2 Examination lungs decreased breath sounds at the bases Abdomen is soft nontender Examination of the lower extremities shows 1+ edema left leg. Left foot is wrapped [employer] exam grossly intact - Labs CBC & Chem 7: 10/05/23 06:33 10/05/23 06:33 Labs: Abnormal Lab Results - Last 24 Hours (Table) 10/04/23 10/04/23 10/05/23 Range/Units 17:39 20:36 04:30 WBC (3.8-10.6) k/uL RBC (4.30-5.90) m/uL Hgb (13.0-17.5) gm/dL Hct (39.0-53.0) % Neutrophils # (1.3-7.7) k/uL Potassium (3.5-5.1) mmol/L BUN (9-20) mg/dL POC Glucose (mg/dL) 415 H 394 H 124 H (70-110) mg/dL 10/05/23 10/05/23 10/05/23 Range/Units 06:33 06:33 12:02 WBC 10.9 H (3.8-10.6) k/uL RBC 3.66 L (4.30-5.90) m/uL Hgb 11.2 L (13.0-17.5) gm/dL Hct 35.1 L (39.0-53.0) % Neutrophils # 8.1 H (1.3-7.7) k/uL Potassium 5.4 H (3.5-5.1) mmol/L BUN 69 H (9-20) mg/dL POC Glucose (mg/dL) 194 H (70-110) mg/dL Microbiology - Last 24 Hours (Table) 10/02/23 14:46 Anaerobic Culture - Preliminary Foot - Left 10/02/23 14:46 Gram Stain - Final Foot - Left Wound Culture - Final Pseudomonas aeruginosa Proteus mirabilis Assessment and Plan Assessment: 1. Acute kidney injury secondary to ATN secondary to severe sepsis, hypovolemia, diuretics. Creatinine 2.05 on admission -1.5 on 10/03/2023. No hydronephrosis noted on kidney ultrasound. 2. Chronic kidney disease stage II with baseline creatinine 1-1.2. Suspect diabetic kidney disease. UA dated 09/20/2023 showed UTI but no proteinuria. 3. Diabetes mellitus. 4. Hypertension with chronic kidney disease. Controlled. 5. Hypovolemic hyponatremia. Component of hypertonicity from hyperglycemia. 6. Severe sepsis secondary to UTI and nonhealing left foot wound. Blood cultures positive for E. coli. ID following. On IV antibiotics. Plan: Encourage increased oral intake PC sodium bicarb
[2023-10-05 14:14] VITALS: BP 128/64; PULSE 58; TEMP 98.2
--- NOTE | 2023-10-05 14:58 | P.DS ---
Providers Date of admission: 09/26/23 09:20 Expected date of discharge: 10/05/23 Attending physician: Jonnathan Tyson MD Consults: 09/24/23 16:27 Consult Physician Routine Consulting Provider: Elin Lopez Consult Reason/Comments: janice Do you want consulting provider notified?: Yes 09/25/23 09:32 Consult Physician Routine Consulting Provider: Candido Fairbanks Consult Reason/Comments: Chronic left wound, evaluate the need for antibiotics Do you want consulting provider notified?: Yes Primary care physician: Mika Bell [facility] Course: Final diagnosis Acute kidney injury from acute tubular necrosis and hypokalemia, improving Left foot infection with non-healing osteomyelitis, Pseudomonas and Proteus in the cultures E. coli sepsis, present on admission Donna from the urine Urinary retention requiring indwelling Romeo catheter Diabetes mellitus, type II uncontrolled with hypo-and hyperglycemia hypertension Hyperlipidemia GI prophylaxis DVT prophylaxis Full code Discharge disposition Patient is being discharged in a stable condition with guarded prognosis to [facility]. Patient will follow-up with Dr. Bell in the outpatient setting upon discharge. Patient is to continue with IV antibiotics in the form of Zosyn 3 times daily for the next 5 weeks per ID recommendations as scheduled. Patient to follow-up with vascular surgery along with infectious disease in the outpatient setting in the next 1-2 weeks. labs in the next 2-3 days to monitor CBC, BMP, magnesium. Total time taken is greater than 35 minutes. Hospital course This is a 72-year-old male who was recently admitted with acute kidney injury with acute tubular necrosis with severe sepsis and found to have a left unhealing foot wound infection with osteomyelitis being closely monitored. Patient was evaluated by vascular surgery underwent deep tissue debridement of the left heel and cultures were sent showing pseudomonas aeruginosa along with Proteus mirabilis and was contained on meropenem during hospitalization and we'll transition IV Zosyn 3 times daily for the next 5 weeks per ID recommendations. Patient has a PICC line in the left upper extremity and will continue these antibiotics with close outpatient follow-up with infectious disease along with vascular surgery. Patient to elevate lower extremities while at rest and continue with local wound care as mentioned below. Patient was also noted to have urinary retention requiring indwelling Romeo catheter with significant amount of sediment noted as well as yeast and is continued on nystatin along with Diflucan for the next 4 days. Recommend meticulous Romeo catheter care and frequent irrigation as there was large amounts of sediment noted and Romeo catheter was replaced today. Trial void in the outpatient setting and if continuing to have retention would recommend urology consultation outpatient. Patient with extremely uncontrollable blood sugars being extremely elevated as well as hypoglycemic recommend monitoring Accu-Cheks closely including at 2 AM if needed as blood sugars drop drastically overnight. Patient to continue on current regimen and continue with heart healthy, consistent carb diet. Patient has been cleared by consultations for discharge. Please refer to other consultation notes for further HPI. Currently no reports of chest pain, shortness of breath, or palpitations. Patient is afebrile. No reports of nausea or vomiting and patient is tolerating diet. Patient will be going to [facility] today. Guarded prognosis and high risk for readmission given patient's significant comorbidities Physical exam: Gen: This is a 72-year-old male who is awake, alert and oriented 3, thin built, elderly appearing, well-developed HEENT: Head is atraumatic, normocephalic. Pupils equal, round. Sclerae is anicteric. NECK: Supple. No JVD. No lymphadenopathy. No thyromegaly. LUNGS: Diminished breath sounds bilaterally with some scattered rhonchi. No intercostal retractions. HEART: Regular rate and rhythm. No murmur. ABDOMEN: Soft. Bowel sounds are present. No masses. No tenderness. EXTREMITIES: No pedal edema. No calf tenderness. NEUROLOGICAL: Patient is awake, alert and oriented x3. Cranial nerves 2 through 12 are grossly intact. Please refer to medication reconciliation sheet for a list of medications. The impression and plan of care has been dictated by Aileen Poon, Nurse Practitioner as directed. Dr. Carmencita MD I have performed a history and examination and MDM of this patient, discussed the same with the dictator, and agree with the dictator's assessment and plan as written ,documented as a scribe. Based on total visit time, I have performed more than 50% of the visit. Patient Condition at Discharge: Fair Plan - Discharge Summary Discharge Rx Participant: No New Discharge Prescriptions: New Fluconazole [Diflucan] 100 mg PO DAILY 4 Days #4 tab amLODIPine [Norvasc] 5 mg PO BID tab Famotidine [Pepcid] 20 mg PO DAILY tab Sodium Bicarbonate Tab 650 mg PO BID tab Heparin Sodium,Porcine (1 ml) [Heparin Sodium] 5,000 unit SQ Q12HR each INSULIN ASPART (NovoLOG) [NovoLOG (formulary)] 3 unit SQ AC-TID each INSULIN ASPART (NovoLOG) [NovoLOG (formulary)] 0 unit SQ ACHS each Piperacillin-Tazobactam [Zosyn] 3.375 gm IVPB Q8HR 35 Days #105 each Continue Isosorbide Mononitrate ER [Imdur] 30 mg PO DAILY@0800 Pantoprazole Sodium [Protonix] 40 mg PO DAILY@0600 Ferrous Sulfate [Iron (65 MG Elemental)] 325 mg PO DAILY@1700 Aspirin [[place] Aspirin EC] 81 mg PO DAILY@1700 Levothyroxine Sodium [Synthroid] 137 mcg PO DAILY Ammonium Lactate Cream [Lac-Hydrin 12% Cream] 1 applic TOPICAL BID PRN PRN Reason: Dry Skin Empagliflozin [Jardiance] 25 mg PO DAILY@0800 Escitalopram [Lexapro] 10 mg PO DAILY@0800 bisacodyL [Dulcolax] 10 mg RECTAL DAILY PRN PRN Reason: Constipation Magnesium Hydroxide [Milk of Magnesia Concentrate] 7,200 mg PO Q48H PRN PRN Reason: Constipation Collagenase [Santyl Ointment] 1 applic TOPICAL DAILY metFORMIN HCL [Glucophage] 1,000 mg PO DAILY@1700 Insulin Detemir (Levemir) [Levemir] 20 unit SQ HS@2100 HYDROcodone/APAP 7.5-325MG [Humble 7.5-325] 1 tab PO Q6H PRN #4 tab PRN Reason: Pain Atorvastatin [Lipitor] 80 mg PO HS Solifenacin Succinate [Vesicare] 5 mg PO DAILY@0800 Na Phos,M-B/Na Phos,Di-Ba [Fleet Adult] 133 ml RECTAL DAILY PRN PRN Reason: Constipation Acetaminophen [Tylenol 8 Hour] 650 mg PO Q4HR PRN PRN Reason: General Discomfort Nystatin 100,000Unit/gm Cream [Mycostatin Cream] 1 applic TOPICAL BID Metoprolol Tartrate [Lopressor] 50 mg PO BID@0800,1700 Liquacel 30 ml PO BID@0800,1700 Glucerna Shake 1 can PO DAILY@1500 Gabapentin [Neurontin] 400 mg PO HS@2130 #2 cap ALPRAZolam [Xanax] 0.25 mg PO DAILY PRN #3 tab PRN Reason: Anxiety Discontinued INSULIN ASPART (NovoLOG) [NovoLOG (formulary)] See Protocol SQ ACHS INSULIN ASPART (NovoLOG) [NovoLOG (formulary)] 10 unit SQ AC-TID Furosemide [Lasix] 40 mg PO DAILY@0800 Cefuroxime [Ceftin] 250 mg PO BID@0800,1700 Insulin Detemir (Levemir) [Levemir] 30 unit SQ DAILY@0800 amLODIPine [Norvasc] 5 mg PO DAILY@0800 Discharge Medication List Aspirin [[place] Aspirin EC] 81 mg PO DAILY@1700 03/13/19 [History] Ferrous Sulfate [Iron (65 MG Elemental)] 325 mg PO DAILY@1700 03/13/19 [History] Isosorbide Mononitrate ER [Imdur] 30 mg PO DAILY@0800 03/13/19 [History] Levothyroxine Sodium [Synthroid] 137 mcg PO DAILY 03/13/19 [History] Pantoprazole Sodium [Protonix] 40 mg PO DAILY@0600 03/13/19 [History] Ammonium Lactate Cream [Lac-Hydrin 12% Cream] 1 applic TOPICAL BID PRN 04/13/23 [History] Atorvastatin [Lipitor] 80 mg PO HS 04/13/23 [History] Empagliflozin [Jardiance] 25 mg PO DAILY@0800 04/13/23 [History] Escitalopram [Lexapro] 10 mg PO DAILY@0800 04/13/23 [History] Solifenacin Succinate [Vesicare] 5 mg PO DAILY@0800 04/13/23 [History] Acetaminophen [Tylenol 8 Hour] 650 mg PO Q4HR PRN 09/24/23 [History] Collagenase [Santyl Ointment] 1 applic TOPICAL DAILY 09/24/23 [History] Glucerna Shake 1 can PO DAILY@1500 09/24/23 [History] Insulin Detemir (Levemir) [Levemir] 20 unit SQ HS@2100 09/24/23 [History] Liquacel 30 ml PO BID@0800,1700 09/24/23 [History] Magnesium Hydroxide [Milk of Magnesia Concentrate] 7,200 mg PO Q48H PRN 09/24/23 [History] Metoprolol Tartrate [Lopressor] 50 mg PO BID@0800,1700 09/24/23 [History] Na Phos,M-B/Na Phos,Di-Ba [Fleet Adult] 133 ml RECTAL DAILY PRN 09/24/23 [History] Nystatin 100,000Unit/gm Cream [Mycostatin Cream] 1 applic TOPICAL BID 09/24/23 [History] bisacodyL [Dulcolax] 10 mg RECTAL DAILY PRN 09/24/23 [History] metFORMIN HCL [Glucophage] 1,000 mg PO DAILY@1700 09/24/23 [History] ALPRAZolam [Xanax] 0.25 mg PO DAILY PRN #3 tab 10/05/23 [Rx] Famotidine [Pepcid] 20 mg PO DAILY tab 10/05/23 [Rx] Fluconazole [Diflucan] 100 mg PO DAILY 4 Days #4 tab 10/05/23 [Rx] Gabapentin [Neurontin] 400 mg PO HS@0 #2 cap 10/05/23 [Rx] HYDROcodone/APAP 7.5-325MG [Humble 7.5-325] 1 tab PO Q6H PRN #4 tab 10/05/23 [Rx] Heparin Sodium,Porcine (1 ml) [Heparin Sodium] 5,000 unit SQ Q12HR each 10/05/23 [Rx] INSULIN ASPART (NovoLOG) [NovoLOG (formulary)] 0 unit SQ ACHS each 10/05/23 [Rx] INSULIN ASPART (NovoLOG) [NovoLOG (formulary)] 3 unit SQ AC-TID each 10/05/23 [Rx] Piperacillin-Tazobactam [Zosyn] 3.375 gm IVPB Q8HR 35 Days #105 each 10/05/23 [Rx] Sodium Bicarbonate Tab 650 mg PO BID tab 10/05/23 [Rx] amLODIPine [Norvasc] 5 mg PO BID tab 10/05/23 [Rx] Follow up Appointment(s)/Referral(s): Mika Bell DO [Primary Care Provider] - 1-2 days Pricila Romeo DO [STAFF PHYSICIAN] - 1 Week Candido Fairbanks MD [STAFF PHYSICIAN] - 1 Week Activity/Diet/Wound Care/Special Instructions: Patient is going to [facility] as tolerated Patient to continue on IV Zosyn every 8 hours for the next 5 weeks and has a PICC line per ID recommendations Continue monitoring Accu-Cheks before meals and at bedtime and as needed at night as blood sugars drop frequently Continue with current insulin regimen including sliding scale NovoLog sliding scale 0-150 equals 0 units 151-200 equals 2 units 201-250 equals 4 units 251-300 equals 6 units 301-350 equals 8 units 351-400 equals 10 units Please notify provider if blood sugar is 400 or above Continue heart healthy diet with consistent carb diet Repeat labs of CBC, BMP, magnesium in 2-3 days Continue with wound care by applying Santyl to the left heel daily apply edge to edge a nickel in depth with saline moistened gauze, dry gauze and roll gauze and secure with paper tape Elevate left lower extremity well at rest Continue indwelling Romeo catheter care for retention. Recommend frequent irrigation as patient is having retention due to increased sediment Discharge Disposition: TRANSFER TO SNF/ECF
[2023-10-05] MEDS ORDERED: PIPERACILLIN-TAZOBACTAM 3.375 GM in SODIUM CHLORIDE 0.9% 100 ML IVPB SCH (16:00)
[2023-10-05 17:06] LABS: Glucose,Whole Blood 344 mg/dL (70-110)
== END 2023-10-05 17:20 | DRG 853 ==
LOC: EC 13:17 → 6NMEDSUR 16:28 → 4SSUR 09-25 17:07 → OBSVTOIN 09-26 09:20 → 5NMEDONC 09-26 16:04
PROVIDERS: ADMIT Internal Medicine; ATTEND Internal Medicine
PROC: 02HV33Z Insertion of Infusion Device into Superior Vena Cava, Percutaneous Approach (ICD-10-PCS; 2023-10-02)
PROC: B548ZZA Ultrasonography of Superior Vena Cava, Guidance (ICD-10-PCS; 2023-10-02)
PROC: 0QBM0ZZ Excision of Left Tarsal, Open Approach (ICD-10-PCS; principal; 2023-10-02 07:30)
DX: A41.51 Sepsis due to Escherichia coli [E. coli] (principal); L89.623 Pressure ulcer of left heel, stage 3; N17.0 Acute kidney failure with tubular necrosis; M86.9 Osteomyelitis, unspecified; E87.1 Hypo-osmolality and hyponatremia; L03.116 Cellulitis of left lower limb; B37.49 Other urogenital candidiasis; B96.5 Pseudomonas (aeruginosa) (mallei) (pseudomallei) as the cause of diseases classified elsewhere; D63.1 Anemia in chronic kidney disease; E11.22 Type 2 diabetes mellitus with diabetic chronic kidney disease; E11.65 Type 2 diabetes mellitus with hyperglycemia; E11.621 Type 2 diabetes mellitus with foot ulcer; F32.A Depression, unspecified; E11.69 Type 2 diabetes mellitus with other specified complication; E11.649 Type 2 diabetes mellitus with hypoglycemia without coma; E11.628 Type 2 diabetes mellitus with other skin complications; I70.245 Atherosclerosis of native arteries of left leg with ulceration of other part of foot; J44.9 Chronic obstructive pulmonary disease, unspecified; I12.9 Hypertensive chronic kidney disease with stage 1 through stage 4 chronic kidney disease, or unspecified chronic kidney disease; E11.51 Type 2 diabetes mellitus with diabetic peripheral angiopathy without gangrene; E03.9 Hypothyroidism, unspecified; N13.9 Obstructive and reflux uropathy, unspecified; E11.40 Type 2 diabetes mellitus with diabetic neuropathy, unspecified; L97.529 Non-pressure chronic ulcer of other part of left foot with unspecified severity; N18.2 Chronic kidney disease, stage 2 (mild); Z79.4 Long term (current) use of insulin; B96.4 Proteus (mirabilis) (morganii) as the cause of diseases classified elsewhere; E78.5 Hyperlipidemia, unspecified; Z79.84 Long term (current) use of oral hypoglycemic drugs; E86.1 Hypovolemia; E87.70 Fluid overload, unspecified; I25.10 Atherosclerotic heart disease of native coronary artery without angina pectoris; I25.2 Old myocardial infarction; E87.6 Hypokalemia; K21.9 Gastro-esophageal reflux disease without esophagitis; R33.9 Retention of urine, unspecified; K59.00 Constipation, unspecified; Z79.82 Long term (current) use of aspirin; Z79.890 Hormone replacement therapy; Z79.899 Other long term (current) drug therapy; Z82.49 Family history of ischemic heart disease and other diseases of the circulatory system; Z95.1 Presence of aortocoronary bypass graft; Z95.5 Presence of coronary angioplasty implant and graft; Z86.14 Personal history of Methicillin resistant Staphylococcus aureus infection; Z11.52 Encounter for screening for COVID-19
CPT/HCPCS: 36415; 36573; 51702; 71045; 76770; 78315; 80048; 80053; 81001; 82009; 83036; 83605; 83735; 83880; 85025; 85027; 85652; 87040; 87070; 87075; 87077; 87086; 87186; 87205; 87635; 93005; 93922; 96361; 96365; 96366; 96375; 99285

== ENCOUNTER 2023-12-19 11:50 | Emergency (ER) | payer MEDICARE, BC, OTHER ==
[2023-12-19 11:54] LABS: Glucose,Whole Blood 537 mg/dL (70-110)
[2023-12-19 12:13] VITALS: RESP 18
--- NOTE | 2023-12-19 12:19 | ED ---
General Adult HPI - General Chief complaint: Recheck/Abnormal Lab/Rx Stated complaint: Hyperglycemia Time Seen by Provider: 12/19/23 12:03 Source: EMS Mode of arrival: EMS Limitations: no limitations - History of Present Illness Initial comments: Dictation was produced using [employer] dictation software. please excuse any grammatical, word or spelling errors. Chief Complaint: 73-year-old male presents to the emergency department for hyperglycemia History of Present Illness: Patient 73-year-old male presents emergency department for 1 day of hypoglycemia. According to EMS who provided history of present illness half-way staff forgot to give patient's long-acting insulin. This morning was found to have elevated blood glucose of over 500. He was given 15 units of short acting insulin at approximately 8:00 AM his blood sugar was still elevated. Patient has an indwelling PICC line catheter in his left upper extremity for foot ulcer he received antibiotics for. At the bedside patient has no complaints states he has no pain. He feels well and at baseline. Denies any pain lethargy nausea weakness. The ROS documented in this emergency department record has been reviewed and confirmed by me. Those systems with pertinent positive or negative responses have been documented in the HPI. All other systems are other negative and/or noncontributory. - Related Data Home Medications Medication Instructions Recorded Confirmed Aspirin [[place] Aspirin EC] 81 mg PO DAILY@1700 03/13/19 12/19/23 Ferrous Sulfate [Iron (65 MG 325 mg PO DAILY@1700 03/13/19 12/19/23 Elemental)] Isosorbide Mononitrate ER [Imdur] 30 mg PO DAILY@0803/13/19 12/19/23 Pantoprazole Sodium [Protonix] 40 mg PO DAILY@59903/13/19 12/19/23 Ammonium Lactate Cream [Lac-Hydrin 1 applic TOPICAL BID PRN 04/13/23 12/19/23 12% Cream] Atorvastatin [Lipitor] 80 mg PO DIRECTED 04/13/23 12/19/23 Empagliflozin [Jardiance] 25 mg PO DAILY@0800 04/13/23 12/19/23 Escitalopram [Lexapro] 10 mg PO DAILY@0800 04/13/23 12/19/23 Acetaminophen [Tylenol 8 Hour] 650 mg PO Q4HR PRN 09/24/23 12/19/23 Glucerna Shake 237 ml PO DAILY@1500 09/24/23 12/19/23 Liquacel 30 ml PO BID@0800,1700 09/24/23 12/19/23 Magnesium Hydroxide [Milk of 7,200 mg PO Q48H PRN 09/24/23 12/19/23 Magnesia Concentrate] Metoprolol Tartrate [Lopressor] 50 mg PO BID@0800,1700 09/24/23 12/19/23 Na Phos,M-B/Na Phos,Di-Ba [Fleet 133 ml RECTAL DAILY PRN 09/24/23 12/19/23 Adult] Nystatin 100,000Unit/gm Cream 1 applic TOPICAL BID 09/24/23 12/19/23 [Mycostatin Cream] bisacodyL [Dulcolax] 10 mg RECTAL DAILY PRN 09/24/23 12/19/23 metFORMIN HCL [Glucophage] 1,000 mg PO DAILY@1700 09/24/23 12/19/23 0.9 % Sodium Chloride [Sodium 10 ml IV BID 12/19/23 12/19/23 Chloride Flush] Cefepime [Maxipime] 2 gm IVPB Q8HR@0600,1400,2200 12/19/23 12/19/23 Cholecalciferol [Vitamin D3 (25 25 mcg PO DAILY@0812/19/23 12/19/23 Mcg = 1000 Iu)] DAPTOmycin [Cubicin] 500 mg IV DAILY@0800 12/19/23 12/19/23 Dulaglutide [Trulicity] 0.75 mg SQ FR@79912/19/23 12/19/23 Famotidine [Pepcid] 20 mg PO DAILY@0812/19/23 12/19/23 INSULIN ASPART (NovoLOG) [NovoLOG 3 unit SQ TID@0800,1200,1700 12/19/23 12/19/23 (formulary)] INSULIN ASPART (NovoLOG) [NovoLOG See Protocol SQ ACHS 12/19/23 12/19/23 (formulary)] Insulin Glargine [Lantus Vial] 20 unit SQ HS@2100 12/19/23 12/19/23 Levothyroxine Sodium [Synthroid] 150 mcg PO DAILY 12/19/23 12/19/23 Phytoplex Z-Guard External Paste 1 applic TOPICAL TUTHSA 12/19/23 12/19/23 57-17% Tamsulosin HCl [Flomax] 0.4 mg PO HS@2100 12/19/23 12/19/23 metroNIDAZOLE [Flagyl] 500 mg PO BID@0800,2100 12/19/23 12/19/23 Previous Rx's Medication Instructions Recorded Gabapentin [Neurontin] 400 mg PO HS@2130 #2 cap 10/05/23 HYDROcodone/APAP 7.5-325MG [[place] 1 tab PO Q6H PRN #4 tab 10/05/23 7.5-325] Heparin Sodium,Porcine (1 ml) 5,000 unit SQ Q12HR each 10/05/23 [Heparin Sodium] Allergies Allergy/AdvReac Type Severity Reaction Status Date / Time No Known Allergies Allergy Verified 12/19/23 12:56 Review of Systems ROS Statement: Those systems with pertinent positive or pertinent negative responses have been documented in the HPI. ROS Other: All systems not noted in ROS Statement are negative. Past Medical History Past Medical History: Coronary Artery Disease (CAD), Diabetes Mellitus, GERD/Reflux, Hyperlipidemia, Hypertension, Myocardial Infarction (MA), Thyroid Disorder Additional Past Medical History / Comment(s): neuropathy, diabetic coma in 2000 and pt's sister has had legal guardianship since. Last Myocardial Infarction Date:: unknown History of Any Multi-Drug Resistant Organisms: ESBL, MRSA, MRSA Date of last positivie culture/infection: 11/23/23-MRSA; 09/25/23 ESBL MDRO Source:: Left Heel-MRSA; Blood-ESBL Past Surgical History: Appendectomy, Coronary Bypass/CABG, Heart Catheterization With Stent Additional Past Surgical History / Comment(s): Sister relays, "He had peripheral artery surgery too." Past Anesthesia/Blood Transfusion Reactions: No Reported Reaction Date of Last Stent Placement:: unknown Past Psychological History: Depression, Panic Disorder Smoking Status: Former smoker Past Alcohol Use History: Daily Past Drug Use History: Marijuana - Past Family History Father Family Medical History: Congestive Heart Failure (CHF) Mother Additional Family Medical History / Comment(s): of old age. General Exam - General Exam Comments Initial Comments: PHYSICAL EXAM: General Impression: Alert and oriented x3, not in acute distress HEENT: Normocephalic atraumatic, extra-ocular movements intact, pupils equal and reactive to light bilaterally, mucous membranes moist. Cardiovascular: Heart regular rate and rhythm Chest: Able to complete full sentences, no retractions, no tachypnea Abdomen: abdomen soft, non-tender, non-distended, no organomegaly Musculoskeletal: Pulses present and equal in all extremities, no peripheral edema Motor: no focal deficits noted Neurological: CN II-XII grossly intact, no focal motor or sensory deficits noted Skin: Intact with no visualized rashes Psych: Normal affect and mood Limitations: no limitations Course Vital Signs 12/19/23 12:00 Temperature 98.6 F Pulse Rate 60 Respiratory 18 Rate Blood Pressure 93/55 O2 Sat by Pulse 97 Oximetry Medical Decision Making - Medical Decision Making Was pt. sent in by a medical professional or institution ([facility] Beckford, PRINCIPLE SOFTWARE ENGINEER, urgent care, hospital, or half-way...) When possible be specific @ -No Did you speak to anyone other than the patient for history (EMS, parent, family, police, friend...)? What history was obtained from this source @ -See above Did you review nursing and triage notes (agree or disagree)? Why? @ -I reviewed and agree with nursing and triage notes Were old charts reviewed (outside hosp., previous admission, EMS record, old EKG, old radiological studies, urgent care reports/EKG's, half-way records)? Report findings @ -No old charts were reviewed Differential Diagnosis (chest pain, altered mental status, abdominal pain women, abdominal pain men, vaginal bleeding, musculoskeletal, weakness, fever, dyspnea, syncope, headache, dizziness, GI bleed, back pain, seizure, CVA, palpatations, mental health)? @ -Not applicable EKG interpreted by me (3pts min.). @ -None done X-rays interpreted by me (1pt min.). @ -None done CT interpreted by me (1pt min.). @ -None done U/S interpreted by me (1pt. min.). @ -None done What testing was considered but not performed or refused? (CT, X-rays, U/S, labs)? Why? @ -None What meds were considered but not given or refused? Why? @ -None Did you discuss the management of the patient with other professionals (professionals i.e. [facility] Beckford, PRINCIPLE SOFTWARE ENGINEER, lab, RT, psych nurse, social insurance adviser, it support engineer, teacher, postal delivery officer, case technician)? Give summary @ -No Was smoking cessation discussed for >3mins.? @ -No Was critical care preformed (if so, how long)? @ -No Were there social determinants of health that impacted care today? How? (Homelessness, low income, unemployed, alcoholism, drug addiction, transportation, low edu. Level, literacy, decrease access to med. care, intermediate, rehab)? @ -No Was there de-escalation of care discussed even if they declined (Discuss DNR or withdrawal of care, Hospice)? DNR status @ -No What co-morbidities impacted this encounter? (DM, HTN, Smoking, COPD, CAD, Cancer, CVA, ARF, Chemo, Hep., AIDS, mental health diagnosis, sleep apnea, morbid obesity)? @ -None Was patient admitted / discharged? Hospital course, mention meds given and route, prescriptions, significant lab abnormalities, going to OR and other pertinent info. @ -73-year-old male presents to the emergency department for hyperglycemia. Patient has no complaints. Vital signs stable. Physical examination is benign. History of present illness benign. Clinically there is no concern for hyperosmolar coma, diabetic ketoacidosis or hyperglycemia related to acute illness. Blood sugars were improved with IV fluids and IV insulin. Blood sugar was 252. No acidosis. Labs are within acceptable limits. Patient reevaluated bedside at 3:30 PM found be stable to condition. Patient discharged. Undiagnosed new problem with uncertain prognosis? @ -No Drug Therapy requiring intensive monitoring for toxicity (Heparin, Nitro, Insulin, Cardizem)? @ -No Were any procedures done? @ -No Diagnosis/symptom? Acute, or Chronic, or Acute on Chronic? Uncomplicated (without systemic symptoms) or Complicated (systemic symptoms)? @ -Hyperglycemia Side effects of treatment? @ -No Exacerbation, Progression, or Severe Exacerbation? @ -No Poses a threat to life or bodily function? How? (Chest pain, [place], MA, pneumonia, PE, COPD, DKA, ARF, appy, cholecystitis, CVA, Diverticulitis, Homicidal, Suicidal, threat to staff... and all critical care pts) @ -No - Lab Data Result diagrams: 12/19/23 12:42 12/19/23 12:42 Lab Results 12/19/23 12/19/2312/19/24 Range/Units 11:53 12:42 12:42 WBC 7.4 (3.8-10.6) k/uL RBC 3.72 L (4.30-5.90) m/uL Hgb 11.4 L (13.0-17.5) gm/dL Hct 36.9 L (39.0-53.0) % MCV 99.3 (80.0-100.0) fL MCH 30.6 (25.0-35.0) pg MCHC 30.8 L (31.0-37.0) g/dL RDW 13.8 (11.5-15.5) % Plt Count 215 (150-450) k/uL MPV 8.0 Neutrophils % 76 % Lymphocytes % 11 % Monocytes % 5 % Eosinophils % 5 % Basophils % 1 % Neutrophils # 5.6 (1.3-7.7) k/uL Lymphocytes # 0.8 L (1.0-4.8) k/uL Monocytes # 0.4 (0-1.0) k/uL Eosinophils # 0.4 (0-0.7) k/uL Basophils # 0.1 (0-0.2) k/uL Hypochromasia Marked Sodium 134 L (137-145) mmol/L Potassium 5.4 H (3.5-5.1) mmol/L Chloride 108 H (98-107) mmol/L Carbon Dioxide 18 L (22-30) mmol/L Anion Gap 8 mmol/L BUN 61 H (9-20) mg/dL Creatinine 1.58 H (0.66-1.25) mg/dL Est GFR (CKD-EPI)AfAm 50 (>60 ml/min/1.73 sqM) Est GFR (CKD-EPI)NonAf 43 (>60 ml/min/1.73 sqM) Glucose 548 H* (74-99) mg/dL POC Glucose (mg/dL) 537 H (70-110) mg/dL POC Glu [employer] Car [employer]ic ID Cami Infante Calcium 9.0 (8.4-10.2) mg/dL 12/19/23 12/19/23 Range/Units 14:03 14:58 WBC (3.8-10.6) k/uL RBC (4.30-5.90) m/uL Hgb (13.0-17.5) gm/dL Hct (39.0-53.0) % MCV (80.0-100.0) fL MCH (25.0-35.0) pg MCHC (31.0-37.0) g/dL RDW (11.5-15.5) % Plt Count (150-450) k/uL MPV Neutrophils % % Lymphocytes % % Monocytes % % Eosinophils % % Basophils % % Neutrophils # (1.3-7.7) k/uL Lymphocytes # (1.0-4.8) k/uL Monocytes # (0-1.0) k/uL Eosinophils # (0-0.7) k/uL Basophils # (0-0.2) k/uL Hypochromasia Sodium (137-145) mmol/L Potassium (3.5-5.1) mmol/L Chloride (98-107) mmol/L Carbon Dioxide (22-30) mmol/L Anion Gap mmol/L BUN (9-20) mg/dL Creatinine (0.66-1.25) mg/dL Est GFR (CKD-EPI)AfAm (>60 ml/min/1.73 sqM) Est GFR (CKD-EPI)NonAf (>60 ml/min/1.73 sqM) Glucose (74-99) mg/dL POC Glucose (mg/dL) 421 H 252 H (70-110) mg/dL POC Glu Foreign Car Mechanic ID Karlie Falcon Danielle Calcium (8.4-10.2) mg/dL Disposition Clinical Impression: Hyperglycemia Disposition: HOME SELF-CARE Condition: Good Instructions (If sedation given, give patient instructions): Diabetic Hyp erglycemia (ED) Is patient prescribed a controlled substance at d/c from ED?: No Referrals: Mika Bell DO [Primary Care Provider] - 1-2 days Time of Disposition: 15:26
[2023-12-19] MEDS: SODIUM CHLORIDE 0.9% 1,000 ML IV STA (12:43)
[2023-12-19 12:46] LABS: Basophils # (A) 0.1 k/uL (0-0.2); Basophils % (A) 1 %; Eosinophils # (A) 0.4 k/uL (0-0.7); Eosinophils % (A) 5 %; HCT 36.9 % (39.0-53.0); HGB 11.4 gm/dL (13.0-17.5); Hypochromasia Marked; Lymphocytes # (A) 0.8 k/uL (1.0-4.8); Lymphocytes % (A) 11 %; MCH 30.6 pg (25.0-35.0); MCHC 30.8 g/dL (31.0-37.0); MCV 99.3 fL (80.0-100.0); Monocytes # (A) 0.4 k/uL (0-1.0); Monocytes % (A) 5 %; Neutrophils # (A) 5.6 k/uL (1.3-7.7); Neutrophils % (A) 76 %; Platelet Count 215 k/uL (150-450); RBC 3.72 m/uL (4.30-5.90); RDW 13.8 % (11.5-15.5); WBC 7.4 k/uL (3.8-10.6)
[2023-12-19 13:19] LABS: African American GFR (CKD) 50 (>60 ml/min/1.73 sqM); Anion Gap 8 mmol/L; Blood Urea Nitrogen 61 mg/dL (9-20); Carbon Dioxide 18 mmol/L (22-30); Chloride 108 mmol/L (98-107); Non-African American GFR(CKD) 43 (>60 ml/min/1.73 sqM); Potassium 5.4 mmol/L (3.5-5.1); Sodium 134 mmol/L (137-145)
[2023-12-19 14:00] LABS: Glucose 548 mg/dL (74-99)
[2023-12-19 14:05] LABS: Glucose,Whole Blood 421 mg/dL (70-110)
[2023-12-19] MEDS: INSULIN REGULAR 100 UNIT/ML VIAL (IV) IV ONE (14:06)
[2023-12-19 15:00] LABS: Glucose,Whole Blood 252 mg/dL (70-110)
[2023-12-19 15:47] VITALS: BP 134/92; PULSE 64; TEMP 98.1
== END 2023-12-19 15:49 | disposition home or self-care (01) ==
LOC: EC 11:50
DX: E11.65 Type 2 diabetes mellitus with hyperglycemia (principal); E11.621 Type 2 diabetes mellitus with foot ulcer; E11.649 Type 2 diabetes mellitus with hypoglycemia without coma; I25.10 Atherosclerotic heart disease of native coronary artery without angina pectoris; E78.5 Hyperlipidemia, unspecified; I10 Essential (primary) hypertension; E07.9 Disorder of thyroid, unspecified; I25.2 Old myocardial infarction; F32.A Depression, unspecified; F12.90 Cannabis use, unspecified, uncomplicated; K21.9 Gastro-esophageal reflux disease without esophagitis; Z79.82 Long term (current) use of aspirin; Z79.4 Long term (current) use of insulin; Z79.84 Long term (current) use of oral hypoglycemic drugs; Z79.890 Hormone replacement therapy; Z95.1 Presence of aortocoronary bypass graft; Z79.899 Other long term (current) drug therapy; Z87.891 Personal history of nicotine dependence
CPT/HCPCS: 36415; 80048; 85025; 96361; 96374; 99284

== ENCOUNTER 2024-01-12 22:10 | Inpatient (IN) | payer MEDICARE, BC, OTHER ==
--- NOTE | 2024-01-12 22:58 | ED ---
Abdominal Pain HPI - General Source: patient, EMS, RN notes reviewed, old records reviewed Mode of arrival: EMS Limitations: physical limitation <Meredith Sanchez - Last Filed: 01/13/24 00:12> <India Cartagena - Last Filed: 01/13/24 16:42> - General Chief Complaint: Abdominal Pain Stated Complaint: abd pain Time Seen by Provider: 01/12/24 22:57 - History of Present Illness Initial Comments: Patient is a 73-year-old male presented to ER via EMS with a chief complaint of abdominal pain x 3 days. Patient is currently residing at [facility] for rehab. Patient reports generalized abdominal pain. He states his last bowel movement was this morning and it was hard. Patient is unsure if he is passing gas. Reports appetite is normal denies any nausea or vomiting. Chart review from [facility] significant for temperature of 100.8 and oxygen saturation 88% on 2 L. Patient is not normally on oxygen. Patient states he is not currently having any shortness of breath, chest pain. Due to patient compl aining of abdominal pain KUB was performed which showed "scant stool". Does report that he did feel recent chills. Denies any urinary complaints. Patient does report he is having increased pain in his left heel for which he has a wound. Patient sees wound care and had dressing changed on Monday. (Meredith Sanchez) - Related Data Home Medications Medication Instructions Recorded Confirmed Aspirin [[place] Aspirin EC] 81 mg PO DAILY@0 03/13/19 01/13/24 Ferrous Sulfate [Iron (65 MG 325 mg PO DAILY@169903/13/19 01/13/24 Elemental)] Isosorbide Mononitrate ER [Imdur] 30 mg PO DAILY@0803/13/19 01/13/24 Pantoprazole Sodium [Protonix] 40 mg PO DAILY@59903/13/19 01/13/24 Ammonium Lactate Cream [Lac-Hydrin 1 applic TOPICAL BID PRN 04/13/23 01/13/24 12% Cream] Atorvastatin [Lipitor] 80 mg PO HS 04/13/23 01/13/24 Empagliflozin [Jardiance] 25 mg PO DAILY@79904/13/23 01/13/24 Escitalopram [Lexapro] 10 mg PO DAILY@0800 04/13/23 01/13/24 Acetaminophen [Tylenol 8 Hour] 650 mg PO Q4HR PRN 09/24/23 01/13/24 Glucerna Shake 237 ml PO DAILY@1500 09/24/23 01/13/24 Liquacel 30 ml PO BID@0800,1700 09/24/23 01/13/24 Magnesium Hydroxide [Milk of 7,200 mg PO Q48H PRN 09/24/23 01/13/24 Magnesia Concentrate] Metoprolol Tartrate [Lopressor] 50 mg PO BID@0800,1700 09/24/23 01/13/24 Na Phos,M-B/Na Phos,Di-Ba [Fleet 133 ml RECTAL DAILY PRN 09/24/23 01/13/24 Adult] bisacodyL [Dulcolax] 10 mg RECTAL DAILY PRN 09/24/23 01/13/24 0.9 % Sodium Chloride [Sodium 10 ml IV BID 12/19/23 01/13/24 Chloride Flush] Cholecalciferol [Vitamin D3 (25 25 mcg PO DAILY@0800 12/19/23 01/13/24 Mcg = 1000 Iu)] DAPTOmycin [Cubicin] 500 mg IV DAILY@0800 12/19/23 01/13/24 Famotidine [Pepcid] 20 mg PO DAILY@0800 12/19/23 01/13/24 INSULIN ASPART (NovoLOG) [NovoLOG 3 unit SQ TID@0800,1200,1700 12/19/23 01/13/24 (formulary)] INSULIN ASPART (NovoLOG) [NovoLOG See Protocol SQ ACHS 12/19/23 01/13/24 (formulary)] Insulin Glargine [Lantus Vial] 26 unit SQ HS 12/19/23 01/13/24 Levothyroxine Sodium [Synthroid] 150 mcg PO DAILY@0600 12/19/23 01/13/24 Phytoplex Z-Guard External Paste 1 applic TOPICAL TUTHSA 12/19/23 01/13/24 57-17% Tamsulosin HCl [Flomax] 0.4 mg PO HS 12/19/23 01/13/24 metroNIDAZOLE [Flagyl] 500 mg PO TID@0600,1400,2200 12/19/23 01/13/24 Dulaglutide [Trulicity] 1.5 mg SQ TH 01/13/24 01/13/24 Gabapentin [Neurontin] 400 mg PO HS 01/13/24 01/13/24 Ondansetron [Zofran] 4 mg PO Q8H PRN 01/13/24 01/13/24 amLODIPine [Norvasc] 5 mg PO BID@0800,199901/13/24 01/13/24 Previous Rx's Medication Instructions Recorded HYDROcodone/APAP 7.5-325MG [Hope 1 tab PO Q6H PRN #4 tab 10/05/23 7.5-325] Allergies Allergy/AdvReac Type Severity Reaction Status Date / Time No Known Allergies Allergy Verified 01/13/24 12:28 Review of Systems ROS Other: All systems not noted in ROS Statement are negative. <Meredith Sanchez - Last Filed: 01/13/24 00:12> ROS Other: All systems not noted in ROS Statement are negative. <India Cartagena - Last Filed: 01/13/24 16:42> ROS Statement: Those systems with pertinent positive or pertinent negative responses have been documented in the HPI. Past Medical History Past Medical History: Coronary Artery Disease (CAD), Diabetes Mellitus, GERD/Reflux, Hyperlipidemia, Hypertension, Myocardial Infarction (RI), Thyroid Disorder Additional Past Medical History / Comment(s): neuropathy, diabetic coma in 2000 and pt's sister has had legal guardianship since. Last Myocardial Infarction Date:: unknown History of Any Multi-Drug Resistant Organisms: ESBL, MRSA, MRSA Date of last positivie culture/infection: 11/23/23-MRSA; 09/25/23 ESBL MDRO Source:: Left Heel-MRSA; Blood-ESBL Past Surgical History: Appendectomy, Coronary Bypass/CABG, Heart Catheterization With Stent Additional Past Surgical History / Comment(s): Sister relays, "He had peripheral artery surgery too." Past Anesthesia/Blood Transfusion Reactions: No Reported Reaction Date of Last Stent Placement:: unknown Past Psychological History: Depression, Panic Disorder Smoking Status: Former smoker Past Alcohol Use History: Daily Past Drug Use History: Marijuana - Past Family History Father Family Medical History: Congestive Heart Failure (CHF) Mother Additional Family Medical History / Comment(s): of old age. <Meredith Sanchez - Last Filed: 01/13/24 00:12> General Exam Limitations: language barrier, physical limitation General appearance: alert, in no apparent distress Head exam: Present: atraumatic, normocephalic, normal inspection Eye exam: Present: normal appearance, PERRL, EOMI. Absent: scleral icterus, conjunctival injection, periorbital swelling Respiratory exam: Present: wheezes (mild bilaterally) Cardiovascular Exam: Present: regular rate, normal rhythm, normal heart sounds. Absent: systolic murmur, diastolic murmur, rubs, gallop, clicks GI/Abdominal exam: Present: soft, tenderness (Generalized), normal bowel sounds Neurological exam: Present: alert, oriented X3, CN II-XII intact Psychiatric exam: Present: normal affect, normal mood Skin exam: Present: warm, dry, intact, normal color. Absent: rash <Meredith Sanchez - Last Filed: 01/13/24 00:12> Course Vital Signs 01/12/24 01/13/24 01/13/24 22:12 00:00 03:38 Temperature 98.6 F Pulse Rate 93 96 72 Respiratory 19 19 18 Rate Blood Pressure 127/93 164/72 126/61 O2 Sat by Pulse 95 94 L Oximetry 01/13/24 05:01 Temperature Pulse Rate 71 Respiratory 17 Rate Blood Pressure 138/60 O2 Sat by Pulse 97 Oximetry Medical Decision Making - Lab Data Result diagrams: 01/12/24 23:18 01/12/24 23:18 - EKG Data -: EKG Interpreted by [facility] <Meredith Sanchez - Last Filed: 01/13/24 00:12> - Lab Data Result diagrams: 01/12/24 23:18 01/12/24 23:18 <India Cartagena - Last Filed: 01/13/24 16:42> - Medical Decision Making Was pt. sent in by a medical professional or institution (, PA, VICE PRESIDENT CLIENT SERVICES, urgent care, hospital, or [facility]...) When possible be specific @ -Yes, chart review from [facility] significant for temperature of 100.8 and oxygen saturation 88% on 2 L. Patient is not normally on oxygen. Patient also reporting abdominal pain for the past 3 days. KUB performed showed "scant stool". [facility] would also called and reported patient has a UTI. Did you speak to anyone other than the patient for history (EMS, parent, family, police, friend...)? What history was obtained from this source @ -No Did you review nursing and triage notes (agree or disagree)? Why? @ -I reviewed and agree with nursing and triage notes Were old charts reviewed (outside hosp., previous admission, EMS record, old EKG, old radiological studies, urgent care reports/EKG's, [facility] records)? Report findings @ -No old charts were reviewed Differential Diagnosis (chest pain, altered mental status, abdominal pain women, abdominal pain men, vaginal bleeding, weakness, fever, dyspnea, syncope, headache, dizziness, GI bleed, back pain, seizure, CVA, palpatations, mental health, musculoskeletal)? @ -Differential Abdominal Pain Men:Appendicitis, cholecystitis, diverticulosis, ischemic bowel, pancreatitis, hepatitis, UTI, gastroenteritis, AAA, incarcerated hernia, bowel obstruction, constipation, inflammatory bowel, hepatitis, peptic ulcer disease, splenic infarction, perforated viscus, testicular torsion, this is not meant to be an all-inclusive list EKG interpreted by me (3pts min.). @ -As above X-rays interpreted by me (1pt min.). @ -Pending CT interpreted by me (1pt min.). @ -Pending U/S interpreted by me (1pt. min.). @ -None done What testing was considered but not performed or refused? (CT, X-rays, U/S, labs)? Why? @ -None What meds were considered but not given or refused? Why? @ -None Did you discuss the management of the patient with other professionals (professionals i.e. , PA, VICE PRESIDENT CLIENT SERVICES, lab, RT, psych nurse, oncology social worker, manager account management, teacher, horticultural technical officer, watch case polisher)? Give summary @ -No Was smoking cessation discussed for >3mins.? @ -No Was critical care preformed (if so, how long)? @ -No Were there social determinants of health that impacted care today? How? (H omelessness, low income, unemployed, alcoholism, drug addiction, transportation, low edu. Level, literacy, decrease access to med. care, retirement, rehab)? @ -Yes, patient is currently residing at [facility] for rehab. Was there de-escalation of care discussed even if they declined (Discuss DNR or withdrawal of care, Hospice)? DNR status @ -No What co-morbidities impacted this encounter? (DM, HTN, Smoking, COPD, CAD, Cancer, CVA, ARF, Chemo, Hep., AIDS, mental health diagnosis, sleep apnea, morbid obesity)? @ -DM Was patient admitted / discharged? Hospital course, mention meds given and route, prescriptions, significant lab abnormalities, going to OR and other pertinent info. @ -Patient is a 73-year-old male presented to the ER with chief complaint of abdominal pain x 3 days. Patient sent from [facility] for evaluation. History and physical exam completed. Vitals stable. Patient no signs acute distress and resting comfortably in exam room. No focal abdominal tenderness on exam. Patient also has ulcer on left heel, dressing in place. Labs obtained significant for ROSA (BUN 40/creatinine 1.38). Influenza A positive. COVID and RSV negative. Patient signd out to India Cartagena PA-C pending imaging results and disposition. (Meredith Sanchez) Patient was signed out to me by Meredith Sanchez PA-C. In short this is a 73-year-old male sent from [facility] for abdominal pain. CT abdomen and pelvis shows no bowel obstruction. There is slight hydronephrosis of the left kidney without obstructing stone, cause unclear. Chest x-ray shows no acute findings in the chest. X-ray of the left foot shows focal extra-articular erosion involving the aspect of the first tarsometatarsal joint. Finding could represent underlying gout, or possibly osteomyelitis. Correlate clinically. No soft tissue ulcer visible by radiograph. No acute fracture or dislocation. Urine is positive for UTI. Patient is positive for influenza A. Patient is treated with Tamiflu for influenza. He was treated with Rocephin and Zosyn for UTI and possible osteomyelitis. He will be admitted for further management and evaluation. I discussed this case with my attending Dr. Coronel Was patient admitted / discharged? Hospital course, mention meds given and route, prescriptions, significant lab abnormalities, going to OR and other pertinent info. @ -Admitted, see above for details Undiagnosed new problem with uncertain prognosis? @ -No Drug Therapy requiring intensive monitoring for toxicity (Heparin, Nitro, Insulin, Cardizem)? @ -No Were any procedures done? @ -No Diagnosis/symptom? @ -Influenza, UTI, osteomyelitis versus gout Acute, or Chronic, or Acute on Chronic? @ -Acute Uncomplicated (without systemic symptoms) or Complicated (systemic symptoms)? @ -Complicated Side effects of treatment? @ -No Exacerbation, Progression, or Severe Exacerbation? @ -No Poses a threat to life or bodily function? How? (Chest pain, USA, RI, pneumonia, PE, COPD, DKA, ARF, appy, cholecystitis, CVA, Diverticulitis, Homicidal, Suicidal, threat to staff... and all critical care pts) @ -Yes (India Cartagena) - Lab Data Lab Results 01/12/24 01/12/24 01/12/24 Range/Units 23:18 23:18 23:18 WBC 6.8 (3.8-10.6) k/uL RBC 4.49 (4.30-5.90) m/uL Hgb 13.3 (13.0-17.5) gm/dL Hct 42.7 (39.0-53.0) % MCV 95.2 (80.0-100.0) fL MCH 29.7 (25.0-35.0) pg MCHC 31.2 (31.0-37.0) g/dL RDW 13.4 (11.5-15.5) % Plt Count 243 (150-450) k/uL MPV 7.4 Neutrophils % 78 % Lymphocytes % 9 % Monocytes % 8 % Eosinophils % 2 % Basophils % 1 % Neutrophils # 5.3 (1.3-7.7) k/uL Lymphocytes # 0.6 L (1.0-4.8) k/uL Monocytes # 0.5 (0-1.0) k/uL Eosinophils # 0.1 (0-0.7) k/uL Basophils # 0.1 (0-0.2) k/uL PT 10.3 (10.0-12.5) sec INR 0.9 (<1.2) APTT 24.5 (22.0-30.0) sec Sodium 131 L (137-145) mmol/L Potassium 4.8 (3.5-5.1) mmol/L Chloride 101 (98-107) mmol/L Carbon Dioxide 25 (22-30) mmol/L Anion Gap 5 mmol/L BUN 40 H (9-20) mg/dL Creatinine 1.38 H (0.66-1.25) mg/dL Est GFR (CKD-EPI)AfAm 58 (>60 ml/min/1.73 sqM) Est GFR (CKD-EPI)NonAf 50 (>60 ml/min/1.73 sqM) Glucose 192 H (74-99) mg/dL Plasma Lactic Acid Selvin (0.7-2.0) mmol/L Calcium 8.8 (8.4-10.2) mg/dL Magnesium 2.0 (1.6-2.3) mg/dL Total Bilirubin 0.3 (0.2-1.3) mg/dL AST 34 (17-59) U/L ALT 21 (4-49) U/L Alkaline Phosphatase 120 (38-126) U/L Troponin I (0.000-0.034) ng/mL Total Protein 7.4 (6.3-8.2) g/dL Albumin 3.5 (3.5-5.0) g/dL Amylase 49 (30-110) U/L Lipase 142 (23-300) U/L Urine Color Urine Appearance (Clear) Urine pH (5.0-8.0) Ur Specific Chamberlain (1.001-1.035) Urine Protein (Negative) Urine Glucose (UA) (Negative) Urine Ketones (Negative) Urine Blood (Negative) Urine Nitrite (Negative) Urine Bilirubin (Negative) Urine Urobilinogen (<2.0) mg/dL Ur Leukocyte Esterase (Negative) Urine RBC (0-5) /hpf Urine WBC (0-5) /hpf Urine WBC Clumps (None) /hpf Urine Bacteria (None) /hpf Urine Mucus (None) /hpf Influenza Type A (PCR) (Not Detectd) Influenza Type B (PCR) (Not Detectd) RSV (PCR) (Not Detectd) SARS-CoV-2 (PCR) (Not Detectd) 01/12/24 01/12/24 01/12/24 Range/Units 23:18 23:18 23:18 WBC (3.8-10.6) k/uL RBC (4.30-5.90) m/uL Hgb (13.0-17.5) gm/dL Hct (39.0-53.0) % MCV (80.0-100.0) fL MCH (25.0-35.0) pg MCHC (31.0-37.0) g/dL RDW (11.5-15.5) % Plt Count (150-450) k/uL MPV Neutrophils % % Lymphocytes % % Monocytes % % Eosinophils % % Basophils % % Neutrophils # (1.3-7.7) k/uL Lymphocytes # (1.0-4.8) k/uL Monocytes # (0-1.0) k/uL Eosinophils # (0-0.7) k/uL Basophils # (0-0.2) k/uL PT (10.0-12.5) sec INR (<1.2) APTT (22.0-30.0) sec Sodium (137-145) mmol/L Potassium (3.5-5.1) mmol/L Chloride (98-107) mmol/L Carbon Dioxide (22-30) mmol/L Anion Gap mmol/L BUN (9-20) mg/dL Creatinine (0.66-1.25) mg/dL Est GFR (CKD-EPI)AfAm (>60 ml/min/1.73 sqM) Est GFR (CKD-EPI)NonAf (>60 ml/min/1.73 sqM) Glucose (74-99) mg/dL Plasma Lactic Acid Selvin 1.1 (0.7-2.0) mmol/L Calcium (8.4-10.2) mg/dL Magnesium (1.6-2.3) mg/dL Total Bilirubin (0.2-1.3) mg/dL AST (17-59) U/L ALT (4-49) U/L Alkaline Phosphatase (38-126) U/L Troponin I 0.025 (0.000-0.034) ng/mL Total Protein (6.3-8.2) g/dL Albumin (3.5-5.0) g/dL Amylase (30-110) U/L Lipase (23-300) U/L Urine Color Urine Appearance (Clear) Urine pH (5.0-8.0) Ur Specific Chamberlain (1.001-1.035) Urine Protein (Negative) Urine Glucose (UA) (Negative) Urine Ketones (Negative) Urine Blood (Negative) Urine Nitrite (Negative) Urine Bilirubin (Negative) Urine Urobilinogen (<2.0) mg/dL Ur Leukocyte Esterase (Negative) Urine RBC (0-5) /hpf Urine WBC (0-5) /hpf Urine WBC Clumps (None) /hpf Urine Bacteria (None) /hpf Urine Mucus (None) /hpf Influenza Type A (PCR) Detected A (Not Detectd) Influenza Type B (PCR) Not Detected (Not Detectd) RSV (PCR) Not Detected (Not Detectd) SARS-CoV-2 (PCR) Not Detected (Not Detectd) 01/13/24 Range/Units 02:21 WBC (3.8-10.6) k/uL RBC (4.30-5.90) m/uL Hgb (13.0-17.5) gm/dL Hct (39.0-53.0) % MCV (80.0-100.0) fL MCH (25.0-35.0) pg MCHC (31.0-37.0) g/dL RDW (11.5-15.5) % Plt Count (150-450) k/uL MPV Neutrophils % % Lymphocytes % % Monocytes % % Eosinophils % % Basophils % % Neutrophils # (1.3-7.7) k/uL Lymphocytes # (1.0-4.8) k/uL Monocytes # (0-1.0) k/uL Eosinophils # (0-0.7) k/uL Basophils # (0-0.2) k/uL PT (10.0-12.5) sec INR (<1.2) APTT (22.0-30.0) sec Sodium (137-145) mmol/L Potassium (3.5-5.1) mmol/L Chloride (98-107) mmol/L Carbon Dioxide (22-30) mmol/L Anion Gap mmol/L BUN (9-20) mg/dL Creatinine (0.66-1.25) mg/dL Est GFR (CKD-EPI)AfAm (>60 ml/min/1.73 sqM) Est GFR (CKD-EPI)NonAf (>60 ml/min/1.73 sqM) Glucose (74-99) mg/dL Plasma Lactic Acid Selvin (0.7-2.0) mmol/L Calcium (8.4-10.2) mg/dL Magnesium (1.6-2.3) mg/dL Total Bilirubin (0.2-1.3) mg/dL AST (17-59) U/L ALT (4-49) U/L Alkaline Phosphatase (38-126) U/L Troponin I (0.000-0.034) ng/mL Total Protein (6.3-8.2) g/dL Albumin (3.5-5.0) g/dL Amylase (30-110) U/L Lipase (23-300) U/L Urine Color Colorless Urine Appearance Cloudy (Clear) Urine pH 6.0 (5.0-8.0) Ur Specific Chamberlain 1.014 (1.001-1.035) Urine Protein 1+ H (Negative) Urine Glucose (UA) 4+ H (Negative) Urine Ketones Trace H (Negative) Urine Blood Moderate H (Negative) Urine Nitrite Negative (Negative) Urine Bilirubin Negative (Negative) Urine Urobilinogen <2.0 (<2.0) mg/dL Ur Leukocyte Esterase Large H (Negative) Urine RBC 22 H (0-5) /hpf Urine WBC >182 H (0-5) /hpf Urine WBC Clumps Many H (None) /hpf Urine Bacteria Rare H (None) /hpf Urine Mucus Rare H (None) /hpf Influenza Type A (PCR) (Not Detectd) Influenza Type B (PCR) (Not Detectd) RSV (PCR) (Not Detectd) SARS-CoV-2 (PCR) (Not Detectd) - EKG Data EKG Comments: EKG taken at 22: 41 shows a sinus rhythm with a first-degree AV block. Inverted T waves in lead III and aVF. No other acute ST segment or T wave abnormalities. Ventricular rate 75, MA interval 256, QRS duration 89, QT/QTc 383/412. (Meredith Sanchez) Disposition <Meredith Sanchez - Last Filed: 01/13/24 00:12> Time of Disposition: 03:17 <India Cartagena - Last Filed: 01/13/24 16:42> Clinical Impression: UTI (urinary tract infection), Influenza A, Osteomyelitis Disposition: ADMITTED IP TO THIS HOSP Condition: Fair
[2024-01-12 23:32] LABS: Basophils # (A) 0.1 k/uL (0-0.2); Basophils % (A) 1 %; Eosinophils # (A) 0.1 k/uL (0-0.7); Eosinophils % (A) 2 %; HCT 42.7 % (39.0-53.0); HGB 13.3 gm/dL (13.0-17.5); Lymphocytes # (A) 0.6 k/uL (1.0-4.8); Lymphocytes % (A) 9 %; MCH 29.7 pg (25.0-35.0); MCHC 31.2 g/dL (31.0-37.0); MCV 95.2 fL (80.0-100.0); Mean Platelet Volume 7.4; Monocytes # (A) 0.5 k/uL (0-1.0); Monocytes % (A) 8 %; Neutrophils # (A) 5.3 k/uL (1.3-7.7); Neutrophils % (A) 78 %; Platelet Count 243 k/uL (150-450); RBC 4.49 m/uL (4.30-5.90); RDW 13.4 % (11.5-15.5); WBC 6.8 k/uL (3.8-10.6)
[2024-01-12 23:44] LABS: ALT 21 U/L (4-49); AST 34 U/L (17-59); African American GFR (CKD) 58 (>60 ml/min/1.73 sqM); Albumin 3.5 g/dL (3.5-5.0); Alkaline Phosphatase 120 U/L (38-126); Amylase 49 U/L (30-110); Anion Gap 5 mmol/L; Blood Urea Nitrogen 40 mg/dL (9-20); Calcium 8.8 mg/dL (8.4-10.2); Carbon Dioxide 25 mmol/L (22-30); Chloride 101 mmol/L (98-107); Glucose 192 mg/dL (74-99); Lipase 142 U/L (23-300); Non-African American GFR(CKD) 50 (>60 ml/min/1.73 sqM); Potassium 4.8 mmol/L (3.5-5.1); Sodium 131 mmol/L (137-145); Total Bilirubin 0.3 mg/dL (0.2-1.3); Total Protein 7.4 g/dL (6.3-8.2)
[2024-01-12 23:46] LABS: INR 0.9 (<1.2); Partial Thromboplastin Time 24.5 sec (22.0-30.0); Prothrombin Time 10.3 sec (10.0-12.5)
--- NOTE | 2024-01-13 00:21 | CT ---
EXAM: CT Abdomen and Pelvis Without Intravenous Contrast CLINICAL HISTORY: ITS.REASON CT Reason: abdominal pain- x-ray show poss blockage TECHNIQUE: Axial computed tomography images of the abdomen and pelvis without intravenous contrast. CTDI is 8.5 mGy and DLP is 566.1 mGy-cm. This CT exam was performed using one or more of the following dose reduction techniques: automated exposure control, adjustment of the mA and/or kV according to patient size, and/or use of iterative reconstruction technique. COMPARISON: No relevant prior studies available. FINDINGS: Lung bases: Mild fibrotic changes at the lung bases. No consolidation. Heart: No cardiomegaly. Coronary artery atherosclerosis. ABDOMEN: Liver: Unremarkable. Gallbladder and bile ducts: Unremarkable. No calcified stones. No ductal dilation. Pancreas: Unremarkable. No ductal dilation. Spleen: Unremarkable. No splenomegaly. Adrenals: Unremarkable. No mass. Kidneys and ureters: Slight hydronephrosis of left kidney without obstructing radiopaque stone. Normal right kidney. No radiopaque urinary stones identified. Stomach and bowel: Unremarkable. No mucosal thickening. No bowel obstruction. PELVIS: Appendix: Appendix not identified. Bladder: Unremarkable. No stones. Normal urinary bladder. Reproductive: Unremarkable as visualized. ABDOMEN and PELVIS: Intraperitoneal space: Unremarkable. No free air. No significant fluid collection. Bones/joints: No acute fracture or dislocation. Previous sternotomy. Remodeling of the right greater trochanter may represent chronic fracture or old avulsion injury. Soft tissues: Unremarkable. Vasculature: Heavy calcification of the aorta and iliac arteries. No aneurysm. Lymph nodes: Unremarkable. No enlarged lymph nodes. IMPRESSION: 1. No bowel obstruction. 2. Slight hydronephrosis of the left kidney without obstructing stone, cause unclear.
--- NOTE | 2024-01-13 00:23 | XR ---
EXAM: XR Chest, 2 Views CLINICAL HISTORY: ITS.REASON XR Reason: fever TECHNIQUE: Frontal and lateral views of the chest. COMPARISON: No relevant prior studies available. FINDINGS: Lungs: No airspace consolidation. Pleural space: Unremarkable. No pleural effusion or pneumothorax. Heart: Previous sternotomy and CABG. No cardiomegaly. No vascular congestion. Bones/joints: No acute fracture or dislocation. IMPRESSION: No acute findings in the chest.
--- NOTE | 2024-01-13 00:26 | XR ---
EXAM: XR Left Foot Complete, 3 or More Views CLINICAL HISTORY: ITS.REASON XR Reason: heel wound TECHNIQUE: Frontal, lateral and oblique views of the left foot. COMPARISON: 09/26/23 FINDINGS: Bones/joints: Bones are osteopenic. There is [id number] fixation hardware in the distal fibula. There is no acute fracture or dislocation. Extra-articular erosion is present along the medial aspect of the first tarsometatarsal joint. Soft tissues: No focal soft tissue swelling. No region of soft tissue ulceration is visible by radiograph. Surgical clips along the medial aspect of the distal tibia. No radiopaque foreign body. IMPRESSION: 1. Focal extra-articular erosion involving the medial aspect of the first tarsometatarsal joint. Finding could represent underlying gout, or possibly osteomyelitis. Correlate clinically. 2. No soft tissue ulcer visible by radiograph. 3. No acute fracture or dislocation.
[2024-01-13] MEDS: HYDROcodone/APAP 7.5-325MG 1 EACH TAB PO ONE (01:34)
[2024-01-13] MEDS ORDERED: NALOXONE 0.4 MG/ML 1 ML VIAL IV PRN (02:48)
[2024-01-13 02:55] LABS: Appearance,Urine Cloudy (Clear); Bacteria,Urine Rare /hpf; Bilirubin,Urine Negative (Negative); Blood,Urine Moderate (Negative); Color,Urine Colorless; Glucose,Urine (UA) 4+ (Negative); Ketones,Urine Trace (Negative); Leukocyte Esterase,Urine Large (Negative); Mucus,Urine Rare /hpf; Nitrite,Urine Negative (Negative); Protein,Urine 1+ (Negative); RBC,Urine 22 /hpf (0-5); Specific Gravity,Urine 1.014 (1.001-1.035); Urobilinogen,Urine <2.0 mg/dL (<2.0); WBC,Urine >182 /hpf (0-5)
[2024-01-13] MEDS ORDERED: ACETAMINOPHEN TAB 325 MG TAB PO PRN (03:09)
[2024-01-13] MEDS: cefTRIAXone IN SWFI 1,000 MG/10 ML SYRINGE IVP ONE (03:29)
[2024-01-13] MEDS: SODIUM CHLORIDE 0.9% 1,000 ML IV SCH (03:33)
[2024-01-13] MEDS: PIPERACILLIN-TAZOBACTAM 3.375 GM in SODIUM CHLORIDE 0.9% 100 ML IVPB STA (03:36)
[2024-01-13] MEDS: OSELTAMIVIR 75 MG CAP PO STA (03:38)
[2024-01-13] MEDS: HYDROcodone/APAP 5-325MG 1 EACH TAB PO PRN (05:52)
[2024-01-13 06:13] LABS: Glucose,Whole Blood 256 mg/dL (70-110)
[2024-01-13] MEDS ORDERED: DEXTROSE 50% SYRINGE 50 ML IVP PRN ×2 (09:14)
[2024-01-13] MEDS ORDERED: VANCOMYCIN IV PER PHARMACY 1 EACH MISC MISCELLANE PRN (09:23)
[2024-01-13] MEDS ORDERED: BENZONATATE 100 MG CAP PO PRN (09:26)
[2024-01-13] MEDS: guaiFENesin 600 MG TABLET.ER PO SCH (09:47)
[2024-01-13] MEDS: PIPERACILLIN-TAZOBACTAM 3.375 GM in SODIUM CHLORIDE 0.9% 100 ML IVPB SCH (09:48)
[2024-01-13] MEDS: VANCOMYCIN 1,500 MG in SODIUM CHLORIDE 0.9% 500 ML 500 ML IVPB ONE (11:24)
[2024-01-13] MEDS: IPRATROPIUM-ALBUTEROL 3 ML NEB INHALATION PRN (11:46)
[2024-01-13 12:06] LABS: Glucose,Whole Blood 450 mg/dL (70-110)
--- NOTE | 2024-01-13 12:29 | US ---
EXAMINATION TYPE: US kidneys/renal and bladder DATE OF EXAM: 01/13/2024 COMPARISON: CT 01/12/2024 CLINICAL INDICATION: Male, 73 years old with history of Hydronephrosis left kidney; Poor historian. CT showed left hydronephrosis. EXAM MEASUREMENTS: Right Kidney: 11.0 x 5.4 x 4.9 cm Left Kidney: 10.6 x 5.7 x 5.6 cm Right Kidney: Inferior pole obscured by bowel gas Left Kidney: Limited due to bowel gas, mild hydronephrosis. Bladder: Distended. Moving internal echoes. Posterior wall thickening = 0.9 cm Left ureteral jet seen IMPRESSION: 1. Limited visualization of the kidneys due to bowel gas. 2. Visualized right kidney is unremarkable. No hydronephrosis. 3. Mild left hydronephrosis, concordant with the CT finding. 4. Distended bladder containing echogenic urine and there is posterior wall thickening up to 0.9 cm. Findings could represent cystitis. Consider correlation with UA.
[2024-01-13] MEDS: INSULIN ASPART (NovoLOG) 100 UNIT/ML VIAL SQ SCH ×2 (12:43→16:50)
[2024-01-13] MEDS: OSELTAMIVIR 30 MG CAP PO SCH (12:43)
[2024-01-13] MEDS ORDERED: HYDROcodone/APAP 7.5-325MG 1 EACH TAB PO PRN (14:17)
[2024-01-13] MEDS ORDERED: AMMONIUM LACTATE 12% CREAM 140 GM TUBE TOPICAL PRN (14:17)
--- NOTE | 2024-01-13 14:17 | P.HPIM ---
History of Present Illness H&P Date: 01/13/24 Chief Complaint: Abdominal pain * 73-year-old gentleman with past medical history significant for left foot osteomyelitis, diabetes mellitus type 2, hypertension, hyperlipidemia, hypothyroid, previous history of MRSA, history of coronary artery disease s/p CABG, history of PCI presents to the emergency department with complaints of ongoing abdominal discomfort. Patient is residing at [facility] for rehab. Patient complained of generalized abdominal discomfort with no relief after bowel movement. Patient had also been complaining of left foot discomfort. * In ER included x-ray left foot which showed focal area of erosion involving the medial aspect of first metatarsal joint possibility of osteomyelitis cannot be ruled out. blood work obtained include WBC count of 6.8 hemoglobin 13.3 platelet count of 243 INR of 0.9. Serum chemistry obtained sodium 131 potassium 4.8, dioxide 25 BUN 40 creatinine 1.38 glucose 192. Serum lactate of 1.1, calcium of 8.8 magnesium of 2 alkaline phosphatase within normal limits troponin within normal limits * Tested positive for influenza a * Urine analysis obtained showed large leukocyte esterase WBC many bacteria * Chest x-ray negative for intrathoracic process * CT abdomen pelvis obtained in ER showed unremarkable liver no bowel obstruction slight hydronephrosis of left kidney without obstructing stone noted * While in ER patient was treated with IV Zosyn given dose of Tamiflu, received Rocephin as well started on fluid resuscitation and consultation from infectious disease REVIEW OF SYSTEMS: Abdominal pain, fever CONSTITUTIONAL: No fever, no malaise, no fatigue. HEENT: No recent visual problems or hearing problems. Denied any sore throat. CARDIOVASCULAR: No chest pain, orthopnea, PND, no palpitations, no syncope. PULMONARY: No shortness of breath, no cough, no hemoptysis. GASTROINTESTINAL: No diarrhea, no nausea, no vomiting, no abdominal pain. NEUROLOGICAL: No headaches, no weakness, no numbness. HEMATOLOGICAL: Denies any bleeding or petechiae. GENITOURINARY: Denies any burning micturition, frequency, or urgency. MUSCULOSKELETAL/RHEUMATOLOGICAL: Denies any joint pain, swelling, or any muscle pain. ENDOCRINE: Denies any polyuria or polydipsia. PHYSICAL EXAMINATION: GENERAL: The patient is alert and oriented x3, ill appearance, nasal cannula in place HEENT: Pupils are round and equally reacting to light. EOMI. No scleral icterus CARDIOVASCULAR: S1 and S2 present. No murmurs, rubs, or gallops. PULMONARY: Chest is clear to auscultation, no wheezing or crackles. ABDOMEN: Soft, nontender, nondistended, normoactive bowel sounds. No palpable o rganomegaly. MUSCULOSKELETAL: No joint swelling or deformity. EXTREMITIES: No cyanosis, clubbing, or pedal edema. NEUROLOGICAL: Gross neurological examination did not reveal any focal deficits. SKIN: Chronic changes noted bilateral lower extremity left foot bandage Past Medical History Past Medical History: Coronary Artery Disease (CAD), Diabetes Mellitus, GERD/Reflux, Hyperlipidemia, Hypertension, Myocardial Infarction ([place]), Thyroid Disorder Additional Past Medical History / Comment(s): neuropathy, diabetic coma in 2000 and pt's sister has had legal guardianship since. Last Myocardial Infarction Date:: unknown History of Any Multi-Drug Resistant Organisms: ESBL, MRSA, MRSA Date of last positivie culture/infection: 11/23/23-MRSA; 09/25/23 ESBL MDRO Source:: Left Heel-MRSA; Blood-ESBL Past Surgical History: Appendectomy, Coronary Bypass/CABG, Heart Catheterization With Stent Additional Past Surgical History / Comment(s): Sister relays, "He had peripheral artery surgery too." Past Anesthesia/Blood Transfusion Reactions: No Reported Reaction Date of Last Stent Placement:: unknown Past Psychological History: Depression, Panic Disorder Smoking Status: Former smoker Past Alcohol Use History: Daily Past Drug Use History: Marijuana - Past Family History Father Family Medical History: Congestive Heart Failure (CHF) Mother Additional Family Medical History / Comment(s): of old age. Medications and Allergies Home Medications Medication Instructions Recorded Confirmed Type Aspirin [[place] Aspirin EC] 81 mg PO DAILY@169903/13/19 01/13/24 History Ferrous Sulfate [Iron (65 MG 325 mg PO DAILY@169903/13/19 01/13/24 History Elemental)] Isosorbide Mononitrate ER [Imdur] 30 mg PO DAILY@0803/13/19 01/13/24 History Pantoprazole Sodium [Protonix] 40 mg PO DAILY@0603/13/19 01/13/24 History Ammonium Lactate Cream [Lac-Hydrin 1 applic TOPICAL BID PRN 04/13/23 01/13/24 History 12% Cream] Atorvastatin [Lipitor] 80 mg PO HS 04/13/23 01/13/24 History Empagliflozin [Jardiance] 25 mg PO DAILY@0800 04/13/23 01/13/24 History Escitalopram [Lexapro] 10 mg PO DAILY@0800 04/13/23 01/13/24 History Acetaminophen [Tylenol 8 Hour] 650 mg PO Q4HR PRN 09/24/23 01/13/24 History Glucerna Shake 237 ml PO DAILY@1500 09/24/23 01/13/24 History Liquacel 30 ml PO BID@0800,1700 09/24/23 01/13/24 History Magnesium Hydroxide [Milk of 7,200 mg PO Q48H PRN 09/24/23 01/13/24 History Magnesia Concentrate] Metoprolol Tartrate [Lopressor] 50 mg PO BID@0800,1700 09/24/23 01/13/24 History Na Phos,M-B/Na Phos,Di-Ba [Fleet 133 ml RECTAL DAILY PRN 09/24/23 01/13/24 History Adult] bisacodyL [Dulcolax] 10 mg RECTAL DAILY PRN 09/24/23 01/13/24 History HYDROcodone/APAP 7.5-325MG [[place] 1 tab PO Q6H PRN #4 tab 10/05/23 01/13/24 Rx 7.5-325] 0.9 % Sodium Chloride [Sodium 10 ml IV BID 12/19/23 01/13/24 History Chloride Flush] Cholecalciferol [Vitamin D3 (25 25 mcg PO DAILY@0800 12/19/23 01/13/24 History Mcg = 1000 Iu)] DAPTOmycin [Cubicin] 500 mg IV DAILY@0800 12/19/23 01/13/24 History Famotidine [Pepcid] 20 mg PO DAILY@0800 12/19/23 01/13/24 History INSULIN ASPART (NovoLOG) [NovoLOG 3 unit SQ TID@0800,1200,1700 12/19/23 01/13/24 History (formulary)] INSULIN ASPART (NovoLOG) [NovoLOG See Protocol SQ ACHS 12/19/23 01/13/24 History (formulary)] Insulin Glargine [Lantus Vial] 26 unit SQ HS 12/19/23 01/13/24 History Levothyroxine Sodium [Synthroid] 150 mcg PO DAILY@0600 12/19/23 01/13/24 History Phytoplex Z-Guard External Paste 1 applic TOPICAL TUTHSA 12/19/23 01/13/24 His tory 57-17% Tamsulosin HCl [Flomax] 0.4 mg PO HS 12/19/23 01/13/24 History metroNIDAZOLE [Flagyl] 500 mg PO TID@0600,1400,2200 12/19/23 01/13/24 History Dulaglutide [Trulicity] 1.5 mg SQ TH 01/13/24 01/13/24 History Gabapentin [Neurontin] 400 mg PO HS 01/13/24 01/13/24 History Ondansetron [Zofran] 4 mg PO Q8H PRN 01/13/24 01/13/24 History amLODIPine [Norvasc] 5 mg PO BID@0800,2000 01/13/24 01/13/24 History Allergies Allergy/AdvReac Type Severity Reaction Status Date / Time No Known Allergies Allergy Verified 01/13/24 12:28 Physical Exam Vitals: Vital Signs Temp Pulse Pulse Resp BP BP Pulse Ox 01/13/24 08:01 99.7 F H 65 17 150/63 97 01/13/24 05:57 72 20 01/13/24 05:37 98.6 F 72 20 161/77 97 01/13/24 05:01 71 17 138/60 97 01/13/24 03:38 72 18 126/61 94 L 01/13/24 00:00 96 19 164/72 01/12/24 22:12 98.6 F 93 19 127/93 95 Intake and Output 01/12/24 01/13/24 01/13/24 22:59 06:59 14:59 Intake Total 200 Output Total 240 Balance -40 Intake: Oral 200 Output: Urine 240 Other: Voiding Method Urinal # Voids 1 Weight 77.111 kg 77.111 kg Results CBC & Chem 7: 01/12/24 23:18 01/12/24 23:18 Labs: Abnormal Lab Results - Last 24 Hours (Table) 01/12/24 01/12/24 01/12/24 Range/Units 23:18 23:18 23:18 Lymphocytes # 0.6 L (1.0-4.8) k/uL Sodium 131 L (137-145) mmol/L BUN 40 H (9-20) mg/dL Creatinine 1.38 H (0.66-1.25) mg/dL Glucose 192 H (74-99) mg/dL POC Glucose (mg/dL) (70-110) mg/dL Urine Protein (Negative) Urine Glucose (UA) (Negative) Urine Ketones (Negative) Urine Blood (Negative) Ur Leukocyte Esterase (Negative) Urine RBC (0-5) /hpf Urine WBC (0-5) /hpf Urine WBC Clumps (None) /hpf Urine Bacteria (None) /hpf Urine Mucus (None) /hpf Influenza Type A (PCR) Detected A (Not Detectd) 01/13/24 01/13/24 Range/Units 02:21 06:09 Lymphocytes # (1.0-4.8) k/uL Sodium (137-145) mmol/L BUN (9-20) mg/dL Creatinine (0.66-1.25) mg/dL Glucose (74-99) mg/dL POC Glucose (mg/dL) 256 H (70-110) mg/dL Urine Protein 1+ H (Negative) Urine Glucose (UA) 4+ H (Negative) Urine Ketones Trace H (Negative) Urine Blood Moderate H (Negative) Ur Leukocyte Esterase Large H (Negative) Urine RBC 22 H (0-5) /hpf Urine WBC >182 H (0-5) /hpf Urine WBC Clumps Many H (None) /hpf Urine Bacteria Rare H (None) /hpf Urine Mucus Rare H (None) /hpf Influenza Type A (PCR) (Not Detectd) Thrombosis Risk Factor Assmnt - Choose All That Apply Any of the Below Risk Factors Present?: No Other Risk Factors: Yes Each Risk Factor Represents 2 Points: Age 61-74 years Other congenital or acquired thrombophilia - If yes, enter type in comment: No Thrombosis Risk Factor Assessment Total Risk Factor Score: 2 Thrombosis Risk Factor Assessment Level: Low Risk Assessment and Plan Assessment: Assessment and plan Acute hypoxemic respiratory failure secondary to influenza A viral infection Urinary tract infection Left foot cellulitis, rule out osteomyelitis Diabetes mellitus type 2 History of hypothyroid History of coronary artery disease s/p CABG History of bladder outflow obstruction * In regards to acute hypoxemic respiratory failure, chest x-ray negative, continue patient on Tamiflu, continue Mucinex as needed breathing treatment for shortness of breath * Regards to urinary tract infection continue patient on Zosyn, follow-up on blood cultures urine culture * Regards to suspected left foot cellulitis versus osteomyelitis, continue antibiotic will continue to monitor * In regards to diabetes mellitus Accu-Cheks ACHS continue patient on correctional insulin, will resume Lantus once confirmed * In regards to coronary artery disease continue patient on aspirin and Lipitor * In regards to bladder outflow obstruction, ultrasound ordered to evaluate for left-sided hydronephrosis. * Status is full code Time with Patient: Greater than 30
[2024-01-13] MEDS: ASPIRIN 81 MG PO SCH (16:03)
[2024-01-13] MEDS: CEFEPIME 2 GM in SODIUM CHLORIDE 0.9% 100 ML IVPB SCH (16:03)
[2024-01-13] MEDS: FERROUS SULFATE 325 MG TAB PO SCH (16:03)
[2024-01-13] MEDS: METOPROLOL TARTRATE 50 MG TAB PO SCH (16:03)
[2024-01-13 16:19] LABS: Glucose,Whole Blood 339 mg/dL (70-110)
[2024-01-13 20:01] LABS: Glucose,Whole Blood 207 mg/dL (70-110)
[2024-01-13] MEDS: GABAPENTIN 400 MG CAP PO SCH (22:00)
[2024-01-13] MEDS: amLODIPine 5 MG TAB PO SCH (22:00)
[2024-01-13] MEDS: TAMSULOSIN 0.4 MG CAP.ER.24H PO SCH (22:00)
[2024-01-13] MEDS: ATORVASTATIN 80 MG TAB PO SCH (22:00)
[2024-01-13] MEDS: ONDANSETRON 4 MG/2 ML VIAL IVP PRN (22:01)
[2024-01-13 22:23] LABS: Glucose,Whole Blood 203 mg/dL (70-110)
[2024-01-13] MEDS: INSULIN DETEMIR (LEVEMIR) 100 UNIT/ML SYR SQ SCH (22:32)
--- NOTE | 2024-01-13 23:05 | P.CONS ---
History of Present Illness - Reason for Consult Consult date: 01/13/24 UTI, possible osteomyelitis Requesting physician: Galindo Coronel - Chief Complaint Abdominal pain x 1 day - History of Present Illness Patient is a 73-year-old male with a past medical history significant for diabetes mellitus hypertension hyperlipidemia NC patient did have a chronic nonhealing wound to the left heel area with underlying osteomyelitis culture p ositive for Pseudomonas and MRSA for which the patient was receiving daptomycin and cefepime at the local long-term patient has been brought to the ER last night concerning for abdominal pain x 3 days patient symptom has been going on for 3 days and was complaining of constipation and did have a hard bowel movement he was noticed to have temperature 100.8 noted to be slightly hypoxic for the patient has been sent to the ER for further evaluation on presentation to the hospital patient was afebrile patient was not tachycardic or hypotensive mildly hypoxic currently on 3 L nasal cannula oxygen patient did have white count of 6.8 BUN/creatinine mildly elevated liver enzymes are normal amylase lipase was normal urine has been positive patient did tested positive for influenza COVID and RSV was negative patient did have a CT of abdominal pelvis no bowel obstruction slight hydronephrosis of the left kidney without obstructive stone he did have a foot x-ray focal extra-articular erosion in volving the medial aspect of the first tarsometatarsal joint abdominal ultrasound mild left hydronephrosis distended bladder containing echogenic urine and posterior wall thickening suggestive of cystitis patient was admitted to the hospital currently being treated with the vancomycin and Zosyn infectious disease was consulted for further management of antibiotic therapy Review of Systems Positive point and negatives has been mentioned in the HPI, complete review of systems was performed and all other systems are negative Past Medical History Past Medical History: Coronary Artery Disease (CAD), Diabetes Mellitus, GERD/Reflux, Hyperlipidemia, Hypertension, Myocardial Infarction ([place]), Thyroid Disorder Additional Past Medical History / Comment(s): neuropathy, diabetic coma in 2000 and pt's sister has had legal guardianship since. 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-MRSA; 09/25/23 ESBL MDRO Source:: Left Heel-MRSA; Blood-ESBL Past Surgical History: Appendectomy, Coronary Bypass/CABG, Heart Catheterization With Stent Additional Past Surgical History / Comment(s): Sister relays, "He had peripheral artery surgery too." Past Anesthesia/Blood Transfusion Reactions: No Reported Reaction Date of Last Stent Placement:: unknown Past Psychological History: Depression, Panic Disorder Smoking Status: Former smoker Past Alcohol Use History: Daily Past Drug Use History: Marijuana - Past Family History Father Family Medical History: Congestive Heart Failure (CHF) Mother Additional Family Medical History / Comment(s): of old age. Medications and Allergies Home Medications Medication Instructions Recorded Confirmed Type Aspirin [[place] Aspirin EC] 81 mg PO DAILY@1700 03/13/19 01/13/24 History Ferrous Sulfate [Iron (65 MG 325 mg PO DAILY@1700 03/13/19 01/13/24 History Elemental)] Isosorbide Mononitrate ER [Imdur] 30 mg PO DAILY@0800 03/13/19 01/13/24 History Pantoprazole Sodium [Protonix] 40 mg PO DAILY@0600 03/13/19 01/13/24 History Ammonium Lactate Cream [Lac-Hydrin 1 applic TOPICAL BID PRN 04/13/23 01/13/24 History 12% Cream] Atorvastatin [Lipitor] 80 mg PO HS 04/13/23 01/13/24 History Empagliflozin [Jardiance] 25 mg PO DAILY@0800 04/13/23 01/13/24 History Escitalopram [Lexapro] 10 mg PO DAILY@0800 04/13/23 01/13/24 History Glucerna Shake 237 ml PO DAILY@1500 09/24/23 01/13/24 History Liquacel 30 ml PO BID@0800,1700 09/24/23 01/13/24 History Magnesium Hydroxide [Milk of 7,200 mg PO Q48H PRN 09/24/23 01/13/24 History Magnesia Concentrate] Metoprolol Tartrate [Lopressor] 50 mg PO BID@0800,1700 09/24/23 01/13/24 History Na Phos,M-B/Na Phos,Di-Ba [Fleet 133 ml RECTAL DAILY PRN 09/24/23 01/13/24 Histo ry Adult] bisacodyL [Dulcolax] 10 mg RECTAL DAILY PRN 09/24/23 01/13/24 History Cholecalciferol [Vitamin D3 (25 25 mcg PO DAILY@0800 12/19/23 01/13/24 History Mcg = 1000 Iu)] Famotidine [Pepcid] 20 mg PO DAILY@0800 12/19/23 01/13/24 History INSULIN ASPART (NovoLOG) [NovoLOG 3 unit SQ TID@0800,1200,1700 12/19/23 01/13/24 History (formulary)] INSULIN ASPART (NovoLOG) [NovoLOG See Protocol SQ ACHS 12/19/23 01/13/24 History (formulary)] Levothyroxine Sodium [Synthroid] 150 mcg PO DAILY@0600 12/19/23 01/13/24 History Phytoplex Z-Guard External Paste 1 applic TOPICAL TUTHSA 12/19/23 01/13/24 History 57-17% Tamsulosin HCl [Flomax] 0.4 mg PO HS 12/19/23 01/13/24 History Dulaglutide [Trulicity] 1.5 mg SQ TH 01/13/24 01/13/24 History Ondansetron [Zofran] 4 mg PO Q8H PRN 01/13/24 01/13/24 History amLODIPine [Norvasc] 5 mg PO BID@0800,2000 01/13/24 01/13/24 History Acetaminophen Tab [Tylenol] 650 mg PO Q6HR PRN tab 01/23/24 Rx Benzonatate [Tessalon Perles] 100 mg PO TID PRN cap 01/23/24 Rx Enoxaparin [Lovenox] 40 mg SQ DAILY each 01/23/24 Rx Fluconazole [Diflucan] 400 mg PO 20 #10 tablet 01/23/24 Rx Folic Acid 1 mg PO DAILY@1200 tab 01/23/24 Rx Gabapentin [Neurontin] 400 mg PO HS #2 cap 01/23/24 Rx HYDROcodone/APAP 5-325MG [[place] 1 each PO Q4HR PRN #4 tab 01/23/24 Rx 5-325] Insulin Glargine [Lantus Vial] 20 unit SQ HS #0 01/23/24 01/13/24 Rx Ipratropium-Albuterol Nebulize 3 ml INHALATION RT-Q2H PRN each 01/23/24 Rx [Duoneb 0.5 mg-3 mg/3 ml Soln] Multivitamins, Thera [Multivitamin 1 each PO DAILY@1200 tab 01/23/24 Rx (formulary)] Nystatin 100,000 Unit/gm Powd 1 applic TOPICAL TID each 01/23/24 Rx [Mycostatin Powder] Thiamine [Vitamin B-1] 100 mg PO BID-W/MEALS tab 01/23/24 Rx guaiFENesin [Mucinex] 600 mg PO Q12HR 7 Days #14 tab 01/23/24 Rx Allergies Allergy/AdvReac Type Severity Reaction Status Date / Time No Known Allergies Allergy Verified 01/13/24 12:28 Physical Exam Vitals: Vital Signs Temp Pulse Pulse Resp BP BP Pulse Ox 01/13/24 11:57 74 01/13/24 11:48 70 97 01/13/24 08:01 99.7 F H 65 17 150/63 97 01/13/24 05:57 72 20 01/13/24 05:37 98.6 F 72 20 161/77 97 01/13/24 05:01 71 17 138/60 97 01/13/24 03:38 72 18 126/61 94 L 01/13/24 00:00 96 19 164/72 01/12/24 22:12 98.6 F 93 19 127/93 95 Intake and Output 01/12/24 01/13/24 01/13/24 22:59 06:59 14:59 Intake Total 200 Output Total 340 Balance -140 Intake: Oral 200 Output: Urine 340 Other: Voiding Method Urinal Urinal Diaper # Voids 1 1 Weight 77.111 kg 77.111 kg GENERAL DESCRIPTION: Elderly male lying in bed, no distress. No tachypnea or accessory muscle of respiration use. HEENT: Shows Pallor , no scleral icterus. Oral mucous membrane is dry. No pharyngeal erythema or thrush NECK: Trachea central, no thyromegaly. LUNGS: Unlabored breathing. Clear to auscultation anteriorly. No wheeze or crackle. HEART: S1, S2, regular rate and rhythm. No loud murmur ABDOMEN: Soft, no tenderness , guarding or rigidity, no organomegaly EXTREMITIES: Left heel is currently covered with specialized dressing no drainage SKIN: No rash, no masses palpable. NEUROLOGICAL: The patient is awake, alert, oriented x3, mood and affect normal. Results CBC & Chem 7: 01/23/24 06:22 01/23/24 06:22 Labs: Abnormal Lab Results - Last 24 Hours (Table) 01/12/24 01/12/24 01/12/24 Range/Units 23:18 23:18 23:18 Lymphocytes # 0.6 L (1.0-4.8) k/uL Sodium 131 L (137-145) mmol/L BUN 40 H (9-20) mg/dL Creatinine 1.38 H (0.66-1.25) mg/dL Glucose 192 H (74-99) mg/dL POC Glucose (mg/dL) (70-110) mg/dL Urine Protein (Negative) Urine Glucose (UA) (Negative) Urine Ketones (Negative) Urine Blood (Negative) Ur Leukocyte Esterase (Negative) Urine RBC (0-5) /hpf Urine WBC (0-5) /hpf Urine WBC Clumps (None) /hpf Urine Bacteria (None) /hpf Urine Mucus (None) /hpf Influenza Type A (PCR) Detected A (Not Detectd) 01/13/24 01/13/24 01/13/24 Range/Units 02:21 06:09 12:04 Lymphocytes # (1.0-4.8) k/uL Sodium (137-145) mmol/L BUN (9-20) mg/dL Creatinine (0.66-1.25) mg/dL Glucose (74-99) mg/dL POC Glucose (mg/dL) 256 H 450 H (70-110) mg/dL Urine Protein 1+ H (Negative) Urine Glucose (UA) 4+ H (Negative) Urine Ketones Trace H (Negative) Urine Blood Moderate H (Negative) Ur Leukocyte Esterase Large H (Negative) Urine RBC 22 H (0-5) /hpf Urine WBC >182 H (0-5) /hpf Urine WBC Clumps Many H (None) /hpf Urine Bacteria Rare H (None) /hpf Urine Mucus Rare H (None) /hpf Influenza Type A (PCR) (Not Detectd) Assessment and Plan (1) Influenza A Current Visit: Yes Status: Acute Code(s): J10.1 - FLU DUE TO OTH IDENT INFLUENZA VIRUS W OTH RESP MANIFEST SNOMED Code(s): 947160323 (2) Osteomyelitis, unspecified Current Visit: Yes Status: Acute Code(s): M86.9 - OSTEOMYELITIS, UNSPECIFIED SNOMED Code(s): 16920381 (3) Urinary tract infection Current Visit: Yes Status: Acute Code(s): N39.0 - URINARY TRACT INFECTION, SITE NOT SPECIFIED SNOMED Code(s): 53788959 Plan: 1patient presented to hospital abdominal pain in this patient who did have a positive UA both CT ultrasound has been suggestive of cystitis to be the likely etiology of his abdominal pain has no other acute process was seen on the CT abdominal pelvis and the patient did have significant tenderness on abdominal examination likely from enteric gram-negative pathogen. 2patient with a left heel osteomyelitis with outpatient culture positive for MRSA for which the patient has been receiving daptomycin at the local long-term 3-we will keep the patient on vancomycin while watching his kidney function closely however switch Zosyn to cefepime to decrease risk of nephrotoxicity while waiting for the urine culture to finalize 4-continue local wound care to the left heel and keep the area of the pressure 5-patient to continue with the Tamiflu to finish a 5-day course of therapy for influenza A We will follow on clinical condition and cultures to further adjust medication if needed Thank you for this consultation we will follow the patient along with you Dictation was produced using [employer] dictation software. please excuse any grammatical, word or spelling errors. Time with Patient: Greater than 30
[2024-01-14] MEDS: VANCOMYCIN 1,500 MG in SODIUM CHLORIDE 0.9% 500 ML 500 ML IVPB SCH (00:49)
[2024-01-14 06:06] LABS: Glucose,Whole Blood 60 mg/dL (70-110)
[2024-01-14 06:21] LABS: Glucose,Whole Blood 79 mg/dL (70-110)
[2024-01-14] MEDS: PANTOPRAZOLE 40 MG TABLET PO SCH (06:30)
[2024-01-14] MEDS: LEVOTHYROXINE 75 MCG TAB PO SCH (06:30)
[2024-01-14] MEDS: ESCITALOPRAM 10 MG TAB PO SCH (08:23)
[2024-01-14] MEDS: ENOXAPARIN 40 MG/0.4 ML SYRINGE SQ SCH (08:23)
[2024-01-14] MEDS: CHOLECALCIFEROL 25 MCG (1000 IU) TABLET PO SCH (08:23)
[2024-01-14] MEDS: FAMOTIDINE 20 MG TAB PO SCH (08:23)
[2024-01-14] MEDS: ISOSORBIDE MONONITRATE ER 30 MG TAB.ER.24H PO SCH (08:23)
[2024-01-14] MEDS: DAPAGLIFLOZIN PROPANEDIOL 10 MG TABLET PO SCH (08:23)
[2024-01-14 11:31] LABS: Glucose,Whole Blood 198 mg/dL (70-110)
[2024-01-14] MEDS: CEFEPIME 2 GM in SODIUM CHLORIDE 0.9% 100 ML IVPB SCH (11:54)
--- NOTE | 2024-01-14 12:53 | P.PN ---
Subjective Progress Note Date: 01/14/24 * 73-year-old gentleman with past medical history significant for left foot osteomyelitis, diabetes mellitus type 2, hypertension, hyperlipidemia, hypothyroid, previous history of MRSA, history of coronary artery disease s/p CABG, history of PCI presents to the emergency department with complaints of ongoing abdominal discomfort. Patient is residing at [facility] for rehab. Patient complained of generalized abdominal discomfort with no relief after bowel movement. Patient had also been complaining of left foot discomfort. * In ER included x-ray left foot which showed focal area of erosion involving th e medial aspect of first metatarsal joint possibility of osteomyelitis cannot be ruled out. blood work obtained include WBC count of 6.8 hemoglobin 13.3 platelet count of 243 INR of 0.9. Serum chemistry obtained sodium 131 potassium 4.8, dioxide 25 BUN 40 creatinine 1.38 glucose 192. Serum lactate of 1.1, calcium of 8.8 magnesium of 2 alkaline phosphatase within normal limits troponin within normal limits * Tested positive for influenza a * Urine analysis obtained showed large leukocyte esterase WBC many bacteria * Chest x-ray negative for intrathoracic process * CT abdomen pelvis obtained in ER showed unremarkable liver no bowel obstruction slight hydronephrosis of left kidney without obstructing stone noted * While in ER patient was treated with IV Zosyn given dose of Tamiflu, received Rocephin as well started on fluid resuscitation and consultation from infectious disease * 01/14/2024: Patient seen and evaluated at bedside, patient is awake and alert however angry does not want blood draw done. Patient stated he is tired of getting poked. Does complain of cough REVIEW OF SYSTEMS: Fever, abdominal pain resolved cough present CONSTITUTIONAL: No fever, no malaise, no fatigue. HEENT: No recent visual problems or hearing problems. Denied any sore throat. CARDIOVASCULAR: No chest pain, orthopnea, PND, no palpitations, no syncope. PULMONARY: Denies shortness of breath, cough present GASTROINTESTINAL: No diarrhea, no nausea, no vomiting, no abdominal pain. NEUROLOGICAL: No headaches, no weakness, no numbness. HEMATOLOGICAL: Denies any bleeding or petechiae. GENITOURINARY: Denies any burning micturition, frequency, or urgency. MUSCULOSKELETAL/RHEUMATOLOGICAL: Denies any joint pain, swelling, or any muscle pain. ENDOCRINE: Denies any polyuria or polydipsia. PHYSICAL EXAMINATION: GENERAL: The patient is alert and oriented x3, ill appearance, nasal cannula in place HEENT: Pupils are round and equally reacting to light. EOMI. No scleral icterus CARDIOVASCULAR: S1 and S2 present. No murmurs, rubs, or gallops. PULMONARY: Chest is clear to auscultation, no wheezing or crackles. ABDOMEN: Soft, nontender, nondistended, normoactive bowel sounds. No palpable organomegaly. MUSCULOSKELETAL: No joint swelling or deformity. EXTREMITIES: No cyanosis, clubbing, or pedal edema. NEUROLOGICAL: Gross neurological examination did not reveal any focal deficits. SKIN: Chronic changes noted bilateral lower extremity left foot bandage Objective - Vital Signs Vital signs: Vital Signs Temp 98.0 F 01/14/24 07:03 Pulse 75 01/14/24 07:49 Resp 19 01/14/24 07:03 BP 130/70 01/14/24 07:03 Pulse Ox 93 L 01/14/24 07:03 FiO2 Intake & Output 01/13/24 01/14/24 01/14/24 18:59 06:59 18:59 Output Total 700 700 Balance -700 -700 Output: Urine 700 700 Other: Voiding Method Urinal Urinal Diaper Diaper External Catheter # Voids 1 1 - Labs CBC & Chem 7: 01/12/24 23:18 01/12/24 23:18 Labs: Abnormal Lab Results - Last 24 Hours (Table) 01/13/24 01/13/24 01/13/24 Range/Units 16:18 20:00 22:22 POC Glucose (mg/dL) 339 H 207 H 203 H (70-110) mg/dL 01/14/24 01/14/24 Range/Units 06:05 11:30 POC Glucose (mg/dL) 60 L 198 H (70-110) mg/dL Microbiology - Last 24 Hours (Table) 01/13/24 02:21 Urine Culture - Preliminary Urine,Voided Gram Neg Bacilli Assessment and Plan Assessment: Assessment and plan Acute hypoxemic respiratory failure secondary to influenza A viral infection Urinary tract infection Left foot cellulitis, rule out osteomyelitis Diabetes mellitus type 2 History of hypothyroid History of coronary artery disease s/p CABG History of bladder outflow obstruction * In regards to acute hypoxemic respiratory failure, chest x-ray negative, continue patient on Tamiflu, continue Mucinex as needed breathing treatment for shortness of breath * Regards to urinary tract infection continue patient on cefepime and vancomycin follow-up on blood cultures, urine culture * Regards to suspected left foot cellulitis versus osteomyelitis, continue antibiotic will continue to monitor * In regards to diabetes mellitus Accu-Cheks ACHS continue patient on correctional insulin, will resume Lantus once confirmed * In regards to coronary artery disease continue patient on aspirin and Lipitor * In regards to bladder outflow obstruction, ultrasound ordered to evaluate for left-sided hydronephrosis., Inconclusive * Status is full code
--- NOTE | 2024-01-14 15:03 | P.PN ---
Subjective Progress Note Date: 01/14/24 Principal diagnosis: Reason for follow-up is left heel osteomyelitis and UTI Patient is a 73-year-old male with a past medical history significant for diabetes mellitus hypertension hyperlipidemia [place] patient did have a chronic nonhealing wound to the left heel area with underlying osteomyelitis culture positive for Pseudomonas and MRSA, presented to hospital with abdominal pain has been diagnosed with cystitis. On today's evaluation that is 01/14/2024, the patient continues to be afebrile, the patient is on 3 L nasal cannula oxygen and breathing comfortably, the Pt denies having any chest pain or cough, the patient denies having any abdominal pain no vomiting or any diarrhea has been reported by the nursing staff. No new labs obtained today urine is growing gram-negative Objective - Vital Signs Vital signs: Vital Signs Temp 98.0 F 01/14/24 07:03 Pulse 75 01/14/24 07:49 Resp 19 01/14/24 07:03 BP 130/70 01/14/24 07:03 Pulse Ox 93 L 01/14/24 07:03 FiO2 Intake & Output 01/13/24 01/14/24 01/14/24 18:59 06:59 18:59 Output Total 700 700 Balance -700 -700 Output: Urine 700 700 Other: Voiding Method Urinal Urinal Urinal Diaper Diaper Diaper External Catheter External Catheter # Voids 1 1 - Exam GENERAL DESCRIPTION: An elderly male lying in bed in no distress RESPIRATORY SYSTEM: Unlabored breathing , decreased breath sounds at bases HEART: S1 S2 regular rate and rhythm , ABDOMEN: Soft , no tenderness EXTREMITIES: Left heel is currently dressed - Labs CBC & Chem 7: 01/12/24 23:18 01/12/24 23:18 Labs: Abnormal Lab Results - Last 24 Hours (Table) 01/13/24 01/13/24 01/13/24 Range/Units 16:18 20:00 22:22 POC Glucose (mg/dL) 339 H 207 H 203 H (70-110) mg/dL 01/14/24 01/14/24 Range/Units 06:05 11:30 POC Glucose (mg/dL) 60 L 198 H (70-110) mg/dL Microbiology - Last 24 Hours (Table) 01/13/24 03:20 Blood Culture - Preliminary Blood 01/13/24 03:05 Blood Culture - Preliminary Blood 01/13/24 02:21 Urine Culture - Preliminary Urine,Voided Gram Neg Bacilli Assessment and Plan (1) Influenza A Current Visit: Yes Status: Acute Code(s): J10.1 - FLU DUE TO OTH IDENT INFLUENZA VIRUS W OTH RESP MANIFEST SNOMED Code(s): 622373575 (2) Urinary tract infection Current Visit: Yes Status: Acute Code(s): N39.0 - URINARY TRACT INFECTION, SITE NOT SPECIFIED SNOMED Code(s): 08155816 (3) Osteomyelitis of left foot Current Visit: No Status: Acute Code(s): M86.9 - OSTEOMYELITIS, UNSPECIFIED SNOMED Code(s): 1524864434860527 Plan: 1patient presented to hospital abdominal pain in this patient who did have a positive UA both CT ultrasound has been suggestive of cystitis to be the likely etiology of his abdominal pain has no other acute process was seen on the CT abdominal pelvis and the patient did have significant tenderness on abdominal examination likely from enteric gram-negative pathogen. 2patient with a left heel osteomyelitis with outpatient culture positive for MRSA for which the patient has been receiving daptomycin at the local long term 3--continue local wound care to the left heel and keep the area of the pressure 4-patient to continue with the Tamiflu to finish 5-day course of therapy 5-continue vancomycin and cefepime while waiting for the culture to finalize Dictation was produced using [employer] dictation software. please excuse any grammatical, word or spelling errors.
[2024-01-14 16:58] LABS: Glucose,Whole Blood 211 mg/dL (70-110)
[2024-01-14] MEDS: FLUCONAZOLE IN NACL,ISO-OSM 400 MG in SALINE 1 200ML.BAG IVPB SCH (19:45)
[2024-01-14 20:05] LABS: Glucose,Whole Blood 164 mg/dL (70-110)
[2024-01-15 05:46] LABS: Glucose,Whole Blood 51 mg/dL (70-110)
[2024-01-15 06:05] LABS: Glucose,Whole Blood 67 mg/dL (70-110)
[2024-01-15 06:19] LABS: Glucose,Whole Blood 75 mg/dL (70-110)
[2024-01-15 08:36] LABS: African American GFR (CKD) 75 (>60 ml/min/1.73 sqM); Anion Gap 9 mmol/L; Blood Urea Nitrogen 31 mg/dL (9-20); Calcium 8.1 mg/dL (8.4-10.2); Carbon Dioxide 19 mmol/L (22-30); Chloride 108 mmol/L (98-107); Glucose 90 mg/dL (74-99); Non-African American GFR(CKD) 64 (>60 ml/min/1.73 sqM); Potassium 3.9 mmol/L (3.5-5.1); Sodium 136 mmol/L (137-145)
[2024-01-15 08:40] LABS: Basophils # (A) 0.01 X 10*3/uL (0.00-0.10); Basophils % (A) 0.1 %; Eosinophils # (A) 0.12 X 10*3/uL (0.04-0.35); Eosinophils % (A) 1.6 %; HGB 11.2 g/dL (13.0-17.0); Lymphocytes # (A) 0.46 X 10*3/uL (0.90-5.00); Lymphocytes % (A) 6.2 %; MCHC 30.3 g/dL (32.0-37.0); MCV 95.9 FL (80.0-97.0); Mean Platelet Volume 10.3 FL (9.5-12.2); Monocytes # (A) 0.69 X 10*3/uL (0.20-1.00); Monocytes % (A) 9.3 %; NRBC Per 100 WBC 0 X 10*3/uL (0.00-0.01); Neutrophils # (A) 6.13 X 10*3/uL (1.80-7.70); Neutrophils % (A) 82.4 %; Platelet Count 196 X 10*3/uL (140-440); RBC 3.86 X 10*6/uL (4.40-5.60); RDW 13.1 % (11.5-14.5); WBC 7.44 X 10*3/uL (4.50-10.00)
[2024-01-15 11:43] LABS: Glucose,Whole Blood 224 mg/dL (70-110)
[2024-01-15 17:08] LABS: Glucose,Whole Blood 226 mg/dL (70-110)
--- NOTE | 2024-01-15 17:39 | P.PN ---
Subjective Progress Note Date: 01/15/24 Principal diagnosis: Reason for follow-up is left heel osteomyelitis and UTI Patient is a 73-year-old male with a past medical history significant for diabetes mellitus hypertension hyperlipidemia [place] patient did have a chronic nonhealing wound to the left heel area with underlying osteomyelitis culture positive for Pseudomonas and MRSA, presented to hospital with abdominal pain has been diagnosed with cystitis. On today's evaluation that is 01/15/2024, Patient is afebrile patient is currently on 3 L nasal cannula oxygen and denies having any shortness of breath, the patient denies any chest pain or cough, the patient denies any nausea vomiting did not have any abdominal pain and no diarrhea. Patient white count is 7.44, creatinine is 1.13 urine grew ESBL E. coli, blood culture with Donna albicans Objective - Vital Signs Vital signs: Vital Signs Temp 98.2 F 01/15/24 07:20 Pulse 68 01/15/24 07:20 Resp 17 01/15/24 07:20 BP 136/56 01/15/24 07:20 Pulse Ox 99 01/15/24 09:58 FiO2 Intake & Output 01/14/24 01/15/24 01/15/24 18:59 06:59 18:59 Intake Total 1500 Output Total 1600 1200 Balance -100 -1200 Intake: Intake, IV Titration 1500 Amount Cefepime 2 gm In Sodium 100 Chloride 0.9% 100 ml @ 25 mls/hr IVPB Q12H [facility] Rx# :[id number] Cefepime 2 gm In Sodium 500 Chloride 0.9% 100 ml @ 25 mls/hr IVPB Q8HR [facility] Rx# :[id number] Sodium Chloride 0.9% 1, 900 000 ml @ 75 mls/hr IV . [id number] [facility] Rx#:[id number] Output: Urine 1600 1200 Other: Voiding Method Urinal Diaper Diaper Diaper External Catheter External Catheter External Catheter - Exam GENERAL DESCRIPTION: An elderly male lying in bed in no distress RESPIRATORY SYSTEM: Unlabored breathing , decreased breath sounds at bases HEART: S1 S2 regular rate and rhythm , ABDOMEN: Soft , no tenderness EXTREMITIES: Left heel is currently dressed - Labs CBC & Chem 7: 01/15/24 06:25 01/15/24 06:25 Labs: Abnormal Lab Results - Last 24 Hours (Table) 01/14/24 01/14/24 01/15/24 Range/Units 16:57 20:03 05:41 RBC (4.40-5.60) X 10*6/uL Hgb (13.0-17.0) g/dL Hct (39.6-50.0) % MCHC (32.0-37.0) g/dL Lymphocytes # (0.90-5.00) X 10*3/uL Sodium (137-145) mmol/L Chloride (98-107) mmol/L Carbon Dioxide (22-30) mmol/L BUN (9-20) mg/dL POC Glucose (mg/dL) 211 H 164 H 51 L (70-110) mg/dL Hemoglobin A1c (<=6.0) % Calcium (8.4-10.2) mg/dL 01/15/24 01/15/24 01/15/24 Range/Units 05:59 06:25 06:25 RBC 3.86 L (4.40-5.60) X 10*6/uL Hgb 11.2 L (13.0-17.0) g/dL Hct 37.0 L (39.6-50.0) % MCHC 30.3 L (32.0-37.0) g/dL Lymphocytes # 0.46 L (0.90-5.00) X 10*3/uL Sodium (137-145) mmol/L Chloride (98-107) mmol/L Carbon Dioxide (22-30) mmol/L BUN (9-20) mg/dL POC Glucose (mg/dL) 67 L (70-110) mg/dL Hemoglobin A1c 9.6 H (<=6.0) % Calcium (8.4-10.2) mg/dL 01/15/24 01/15/24 Range/Units 06:25 11:43 RBC (4.40-5.60) X 10*6/uL Hgb (13.0-17.0) g/dL Hct (39.6-50.0) % MCHC (32.0-37.0) g/dL Lymphocytes # (0.90-5.00) X 10*3/uL Sodium 136 L (137-145) mmol/L Chloride 108 H (98-107) mmol/L Carbon Dioxide 19 L (22-30) mmol/L BUN 31 H (9-20) mg/dL POC Glucose (mg/dL) 224 H (70-110) mg/dL Hemoglobin A1c (<=6.0) % Calcium 8.1 L (8.4-10.2) mg/dL Microbiology - Last 24 Hours (Table) 01/13/24 03:05 Blood Culture Gram Stain - Preliminary Blood Blood Culture - Preliminary 01/13/24 03:20 Blood Culture - Preliminary Blood 01/13/24 02:21 Urine Culture - Preliminary Urine,Voided Gram Neg Bacilli Assessment and Plan (1) Influenza A Current Visit: Yes Status: Acute Code(s): J10.1 - FLU DUE TO OTH IDENT INFLUENZA VIRUS W OTH RESP MANIFEST SNOMED Code(s): 141910729 (2) Urinary tract infection Current Visit: Yes Status: Acute Code(s): N39.0 - URINARY TRACT INFECTION, SITE NOT SPECIFIED SNOMED Code(s): 55168444 (3) Osteomyelitis of left foot Current Visit: No Status: Acute Code(s): M86.9 - OSTEOMYELITIS, UNSPECIFIED SNOMED Code(s): 5280357612249937 (4) Candidemia Current Visit: Yes Status: Acute Code(s): B37.7 - CANDIDAL SEPSIS SNOMED Code(s): 507815276 (5) Infection due to ESBL-producing Escherichia coli Current Visit: Yes Status: Acute Code(s): A49.8 - OTHER BACTERIAL INFECTIONS OF UNSPECIFIED SITE; Z16.12 - EXTENDED SPECTRUM BETA LACTAMASE (ESBL) RESISTANCE SNOMED Code(s): 716654772 Plan: 1patient presented to hospital abdominal pain in this patient who did have a positive UA both CT ultrasound has been suggestive of cystitis to be the likely etiology of his abdominal pain has no other acute process was seen on the CT abdominal pelvis and the patient did have significant tenderness on abdominal e xamination likely from enteric gram-negative pathogen. 2patient with a left heel osteomyelitis with outpatient culture positive for MRSA for which the patient has been receiving daptomycin at the local custodial 3--continue local wound care to the left heel and keep the area of the pressure 4-patient to continue with the Tamiflu to finish 5-day course of therapy 5-patient with a positive blood culture with Donna albicans high clinical suspicion for related to the PICC line which will be discontinued tip will be sent for culture blood culture repeated yesterday patient started on Diflucan. 6urine cultures are growing ESBL E. coli we will discontinue cefepime and start the patient on meropenem 1 g every 8 hours Dictation was produced using [employer] dictation software. please excuse any grammatical, word or spelling errors. Time with Patient: Less than 30
[2024-01-15] MEDS: MEROPENEM 1 GM in SODIUM CHLORIDE 0.9% 100 ML IVPB SCH (18:00)
[2024-01-15 21:00] LABS: Glucose,Whole Blood 311 mg/dL (70-110)
--- NOTE | 2024-01-15 23:03 | P.PN ---
Subjective Progress Note Date: 01/15/24 Patient is evaluated in follow up today. Sent over from [facility] due to hypoxemia and found to be positive for Influenza. He is maintained on tamiflu at this time. He is currently denying shortness of breath. His wound culture to the left heel positive for MRSA and pseudomonas and patient remains on IV antibiotics with ID following closely. Patient has positive urine tract infection with culture showing E.Coli ESBL. Blood culture is growing donna albicans and his PICC Line has been removed and sent for culture. ID following closely. Blood work today reveals white count of 7.44, hemoglobin 11.2. BUN 31, creatinine 1.13. Blood glucose increased. Hemoglobin A1C 9.6. Review of Systems Constitutional: Denied any fatigue denied any fever. Cardio vascular: denied any chest pain, palpitations Gastrointestinal: denied any nausea, vomiting, diarrhea Pulmonary: Denied any shortness of breath cough Neurologic denied any new focal deficits All inpatient medications were reviewed and appropriate changes in these medications as dictated in the interval history and assessment and plan. PHYSICAL EXAMINATION: GENERAL: The patient is alert and oriented x3, ill appearance, nasal cannula in place HEENT: Pupils are round and equally reacting to light. EOMI. No scleral icterus CARDIOVASCULAR: S1 and S2 present. No murmurs, rubs, or gallops. PULMONARY: Chest is clear to auscultation, no wheezing or crackles. ABDOMEN: Soft, nontender, nondistended, normoactive bowel sounds. No palpable organomegaly. MUSCULOSKELETAL: No joint swelling or deformity. EXTREMITIES: No cyanosis, clubbing, or pedal edema. NEUROLOGICAL: Gross neurological examination did not reveal any focal deficits. SKIN: Chronic changes noted bilateral lower extremity left foot bandage Assessment and plan Acute hypoxemic respiratory failure secondary to influenza A viral infection Acute influenza A infection patient continues on oral tamiflu Urinary tract infection with ESBL currently on IV meropenem and IV vancomycin Donna bacteremia has been started on IV diflucan. PICC Line removed and sent for culture. Repeat blood cultures in place. Left foot cellulitis, history of osteomyelitis with MRSA and pseudomonas. 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 GI prophylaxis pepcid DVT prophylaxis lovenox Full Code The impression and plan of care has been dictated by Silvia Ralph, Nurse Practitioner as directed. Dr. Karlie MD I have performed a history and physical examination and medical decision making of this patient, discussed the same with the dictator, and agree with the dictators assessment and plan as written, documented as a scribe. Based on total visit time, I have performed more than 50% of this visit. Objective - Vital Signs Vital signs: Vital Signs Temp 98.5 F 01/15/24 14:00 Pulse 64 01/15/24 14:00 Resp 17 01/15/24 14:00 BP 132/74 01/15/24 14:00 Pulse Ox 99 01/15/24 14:00 FiO2 Intake & Output 01/15/24 01/15/24 01/16/24 06:59 18:59 06:59 Output Total 1200 2700 Balance -1200 -2700 Output: Urine 1200 2700 Other: Voiding Method Diaper Diaper Diaper External Catheter External Catheter External Catheter - Labs CBC & Chem 7: 01/15/24 06:25 01/15/24 06:25 Labs: Abnormal Lab Results - Last 24 Hours (Table) 01/15/24 01/15/24 01/15/24 Range/Units 05:41 05:59 06:25 RBC (4.40-5.60) X 10*6/uL Hgb (13.0-17.0) g/dL Hct (39.6-50.0) % MCHC (32.0-37.0) g/dL Lymphocytes # (0.90-5.00) X 10*3/uL Sodium (137-145) mmol/L Chloride (98-107) mmol/L Carbon Dioxide (22-30) mmol/L BUN (9-20) mg/dL POC Glucose (mg/dL) 51 L 67 L (70-110) mg/dL Hemoglobin A1c 9.6 H (<=6.0) % Calcium (8.4-10.2) mg/dL 01/15/24 01/15/24 01/15/24 Range/Units 06:25 06:25 11:43 RBC 3.86 L (4.40-5.60) X 10*6/uL Hgb 11.2 L (13.0-17.0) g/dL Hct 37.0 L (39.6-50.0) % MCHC 30.3 L (32.0-37.0) g/dL Lymphocytes # 0.46 L (0.90-5.00) X 10*3/uL Sodium 136 L (137-145) mmol/L Chloride 108 H (98-107) mmol/L Carbon Dioxide 19 L (22-30) mmol/L BUN 31 H (9-20) mg/dL POC Glucose (mg/dL) 224 H (70-110) mg/dL Hemoglobin A1c (<=6.0) % Calcium 8.1 L (8.4-10.2) mg/dL 01/15/24 01/15/24 Range/Units 17:07 20:59 RBC (4.40-5.60) X 10*6/uL Hgb (13.0-17.0) g/dL Hct (39.6-50.0) % MCHC (32.0-37.0) g/dL Lymphocytes # (0.90-5.00) X 10*3/uL Sodium (137-145) mmol/L Chloride (98-107) mmol/L Carbon Dioxide (22-30) mmol/L BUN (9-20) mg/dL POC Glucose (mg/dL) 226 H 311 H (70-110) mg/dL Hemoglobin A1c (<=6.0) % Calcium (8.4-10.2) mg/dL Microbiology - Last 24 Hours (Table) 01/13/24 02:21 Urine Culture - Preliminary Urine,Voided Escherichia coli 01/13/24 03:05 Blood Culture Gram Stain - Final Blood Blood Culture - Final Donna albicans 01/13/24 03:20 Blood Culture - Preliminary Blood Assessment and Plan Time with Patient: Less than 30
[2024-01-15] MEDS: VANCOMYCIN 1,250 MG in SODIUM CHLORIDE 0.9% 250 ML IVPB SCH (23:45)
[2024-01-16 06:21] LABS: Glucose,Whole Blood 102 mg/dL (70-110)
[2024-01-16 10:04] LABS: Basophils % (A) 1 %; Eosinophils # (A) 0.4 k/uL (0-0.7); Eosinophils % (A) 7 %; HCT 37.3 % (39.0-53.0); HGB 11.5 gm/dL (13.0-17.5); Hypochromasia Slight; Lymphocytes # (A) 0.7 k/uL (1.0-4.8); Lymphocytes % (A) 12 %; MCH 29.8 pg (25.0-35.0); MCHC 30.9 g/dL (31.0-37.0); MCV 96.7 fL (80.0-100.0); Mean Platelet Volume 8.2; Monocytes # (A) 0.4 k/uL (0-1.0); Monocytes % (A) 6 %; Neutrophils # (A) 4.7 k/uL (1.3-7.7); Neutrophils % (A) 74 %; Platelet Count 214 k/uL (150-450); RBC 3.86 m/uL (4.30-5.90); RDW 13.2 % (11.5-15.5); WBC 6.3 k/uL (3.8-10.6)
[2024-01-16 10:16] LABS: African American GFR (CKD) 86 (>60 ml/min/1.73 sqM); Anion Gap 8 mmol/L; Blood Urea Nitrogen 23 mg/dL (9-20); Carbon Dioxide 22 mmol/L (22-30); Chloride 109 mmol/L (98-107); Glucose 103 mg/dL (74-99); Non-African American GFR(CKD) 74 (>60 ml/min/1.73 sqM); Sodium 139 mmol/L (137-145)
--- NOTE | 2024-01-16 10:20 | P.CONS ---
History of Present Illness - Reason for Consult Consult date: 01/16/24 wound care - History of Present Illness This is a 73-year-old patient known to the wound care center being seen on 4 S. for nonhealing ulceration to the left heel. Patient has a stage III pressure ulcer to the left heel with history of osteomyelitis. He is currently a resident at [facility]. We have been utilizing EpiFix to the site. Ulceration shows granulation with minimal slough and nonviable tissue present the wound edges are attached to the wound base no tunneling or undermining noted. EpiFix to be kept in place until seen in the wound care center. Review Of Systems: Constitutional: No fever, no chills, no night sweats. No weight change. No weakness, fatigue or lethargy. No daytime sleepiness. Integumentary:reports wounds, no lesions. No rash or pruritus. No unusual bruising. No change in hair or nails. Physical exam: General Appearance: Alert, cooperative, no distress, appears stated age. Skin: See HPI all other Skin color, texture, tugor normal, no rashes or lesions. Neurologic: Alert oriented x3 Assessment: 1. Stage III pressure ulcer left heel 2. Osteomyelitis 3. Diabetic foot ulcer 4. Atherosclerosis of [place] arteries of left leg with ulceration of other part of foot Plan: 1. EpiFix is in place. Do not remove dressing. Dressing will be removed at the next wound care appointment which is January 22 at 245 Thank you for the consultation any questions please contact the wound care center DNP note has been reviewed and discussed with Dr. Ramos and the impression and plan of care has been directed as dictated. Past Medical History Past Medical History: Coronary Artery Disease (CAD), Diabetes Mellitus, GERD/Reflux, Hyperlipidemia, Hypertension, Myocardial Infarction ([place]), Thyroid Disorder Additional Past Medical History / Comment(s): neuropathy, diabetic coma in 2000 and pt's sister has had legal guardianship since. 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-MRSA; 09/25/23 ESBL MDRO Source:: Left Heel-MRSA; Blood-ESBL Past Surgical History: Appendectomy, Coronary Bypass/CABG, Heart Catheterization With Stent Additional Past Surgical History / Comment(s): Sister relays, "He had peripheral artery surgery too." Past Anesthesia/Blood Transfusion Reactions: No Reported Reaction Date of Last Stent Placement:: unknown Past Psychological History: Depression, Panic Disorder Smoking Status: Former smoker Past Alcohol Use History: Daily Past Drug Use History: Marijuana - Past Family History Father Family Medical History: Congestive Heart Failure (CHF) Mother Additional Family Medical History / Comment(s): of old age. Medications and Allergies Home Medications Medication Instructions Recorded Confirmed Type Aspirin [[place] Aspirin EC] 81 mg PO DAILY@1700 03/13/19 01/13/24 History Ferrous Sulfate [Iron (65 MG 325 mg PO DAILY@169903/13/19 01/13/24 History Elemental)] Isosorbide Mononitrate ER [Imdur] 30 mg PO DAILY@0800 03/13/19 01/13/24 History Pantoprazole Sodium [Protonix] 40 mg PO DAILY@0600 03/13/19 01/13/24 History Ammonium Lactate Cream [Lac-Hydrin 1 applic TOPICAL BID PRN 04/13/23 01/13/24 History 12% Cream] Atorvastatin [Lipitor] 80 mg PO HS 04/13/23 01/13/24 History Empagliflozin [Jardiance] 25 mg PO DAILY@0800 04/13/23 01/13/24 History Escitalopram [Lexapro] 10 mg PO DAILY@0800 04/13/23 01/13/24 History Acetaminophen [Tylenol 8 Hour] 650 mg PO Q4HR PRN 09/24/23 01/13/24 History Glucerna Shake 237 ml PO DAILY@1500 09/24/23 01/13/24 History Liquacel 30 ml PO BID@0800,1700 09/24/23 01/13/24 History Magnesium Hydroxide [Milk of 7,200 mg PO Q48H PRN 09/24/23 01/13/24 History Magnesia Concentrate] Metoprolol Tartrate [Lopressor] 50 mg PO BID@0800,1700 09/24/23 01/13/24 History Na Phos,M-B/Na Phos,Di-Ba [Fleet 133 ml RECTAL DAILY PRN 09/24/23 01/13/24 History Adult] bisacodyL [Dulcolax] 10 mg RECTAL DAILY PRN 09/24/23 01/13/24 History HYDROcodone/APAP 7.5-325MG [[place] 1 tab PO Q6H PRN #4 tab 10/05/23 01/13/24 Rx 7.5-325] 0.9 % Sodium Chloride [Sodium 10 ml IV BID 12/19/23 01/13/24 History Chloride Flush] Cholecalciferol [Vitamin D3 (25 25 mcg PO DAILY@0800 12/19/23 01/13/24 History Mcg = 1000 Iu)] DAPTOmycin [Cubicin] 500 mg IV DAILY@0800 12/19/23 01/13/24 History Famotidine [Pepcid] 20 mg PO DAILY@0800 12/19/23 01/13/24 History INSULIN ASPART (NovoLOG) [NovoLOG 3 unit SQ TID@0800,1200,1700 12/19/23 01/13/24 History (formulary)] INSULIN ASPART (NovoLOG) [NovoLOG See Protocol SQ ACHS 12/19/23 01/13/24 History (formulary)] Insulin Glargine [Lantus Vial] 26 unit SQ HS 12/19/23 01/13/24 History Levothyroxine Sodium [Synthroid] 150 mcg PO DAILY@0600 12/19/23 01/13/24 History Phytoplex Z-Guard External Paste 1 applic TOPICAL TUTHSA 12/19/23 01/13/24 History 57-17% Tamsulosin HCl [Flomax] 0.4 mg PO 12/19/23 01/13/24 History metroNIDAZOLE [Flagyl] 500 mg PO TID@0600,1400,2200 12/19/23 01/13/24 History Dulaglutide [Trulicity] 1.5 mg SQ TH 01/13/24 01/13/24 History Gabapentin [Neurontin] 400 mg PO HS 01/13/24 01/13/24 History Ondansetron [Zofran] 4 mg PO Q8H PRN 01/13/24 01/13/24 History amLODIPine [Norvasc] 5 mg PO BID@0800,2000 01/13/24 01/13/24 History Allergies Allergy/AdvReac Type Severity Reaction Status Date / Time No Known Allergies Allergy Verified 01/13/24 12:28 Physical Exam Vitals: Vital Signs Temp Pulse Resp BP BP Pulse Ox 01/16/24 07:38 97.6 F 75 18 170/79 100 01/16/24 01:19 61 149/74 99 01/15/24 19:36 98.6 F 65 15 152/63 97 01/15/24 14:00 98.5 F 64 17 132/74 99 Intake and Output 01/15/24 01/16/24 01/16/24 22:59 06:59 14:59 Output Total 1600 1350 Balance -1600 -1350 Output: Urine 1600 1350 Other: Voiding Method Diaper Diaper External Catheter External Catheter Results CBC & Chem 7: 01/16/24 08:37 01/15/24 06:25 Labs: Abnormal Lab Results - Last 24 Hours (Table) 01/15/24 01/15/24 01/15/24 Range/Units 11:43 17:07 20:59 RBC (4.30-5.90) m/uL Hgb (13.0-17.5) gm/dL Hct (39.0-53.0) % MCHC (31.0-37.0) g/dL Lymphocytes # (1.0-4.8) k/uL POC Glucose (mg/dL) 224 H 226 H 311 H (70-110) mg/dL 01/16/24 Range/Units 08:37 RBC 3.86 L (4.30-5.90) m/uL Hgb 11.5 L (13.0-17.5) gm/dL Hct 37.3 L (39.0-53.0) % MCHC 30.9 L (31.0-37.0) g/dL Lymphocytes # 0.7 L (1.0-4.8) k/uL POC Glucose (mg/dL) (70-110) mg/dL Microbiology - Last 24 Hours (Table) 01/13/24 03:20 Blood Culture - Preliminary Blood 01/14/24 18:48 Blood Culture - Preliminary Blood 01/14/24 18:50 Blood Culture - Preliminary Blood 01/13/24 02:21 Urine Culture - Preliminary Urine,Voided Escherichia coli 01/13/24 03:05 Blood Culture Gram Stain - Final Blood Blood Culture - Final Donna albicans Assessment and Plan (1) Pressure ulcer of left heel, stage 3 Current Visit: No Status: Acute Code(s): L89.623 - PRESSURE ULCER OF LEFT HEEL, STAGE 3 SNOMED Code(s): 22976090097515 (2) Osteomyelitis, unspecified Current Visit: Yes Status: Acute Code(s): M86.9 - OSTEOMYELITIS, UNSPECIFIED SNOMED Code(s): 72344049 (3) Atherosclerosis of [place] arteries of left leg with ulceration of other part of foot Current Visit: No Status: Acute Code(s): I70.245 - ATHSCL [place] ARTERIES OF LEFT LEG W ULCERATION OTH PRT FOOT SNOMED Code(s): 5691250448 (4) Type 2 diabetes mellitus with foot ulcer Current Visit: No Status: Acute Code(s): E11.621 - TYPE 2 DIABETES MELLITUS WITH FOOT ULCER; L97.509 - NON-PRESSURE CHRONIC ULCER OTH PRT UNSP FOOT W UNSP SEVERITY SNOMED Code(s): 474378537
[2024-01-16 10:31] LABS: Potassium 4.3 mmol/L (3.5-5.1)
[2024-01-16 11:55] LABS: Glucose,Whole Blood 96 mg/dL (70-110)
[2024-01-16 13:42] VITALS: BMI 24.3
--- NOTE | 2024-01-16 15:01 | P.PN ---
Subjective Progress Note Date: 01/16/24 Patient is evaluated in follow up today. Sent over from [facility] due to hypoxemia and found to be positive for Influenza. He is maintained on tamiflu at this time. He is currently denying shortness of breath. His wound culture to the left heel positive for MRSA and pseudomonas and patient remains on IV antibiotics with ID following closely. Patient has positive urine tract infection with culture showing E.Coli ESBL. Blood culture is growing donna albicans and his PICC Line has been removed and sent for culture. ID following closely. Blood work today reveals white count of 7.44, hemoglobin 11.2. BUN 31, creatinine 1.13. Blood glucose increased. Hemoglobin A1C 9.6. 01/16/2024 Patient is evaluated in follow up. He remains primarily bed rest. PT following he is from rehab. His PICC line was removed yesterday due to donna bacteremia and the catheter tip was sent for culture. ID following closely. IV fluconazole was added. Patient denies any shortness of breath and rest. He is continued on oxygen therapy. White blood cell count today is 6.3, hemoglobin 11.5, sodium 139, potassium 4.3, BUN of 23, creatinine of 1.00. Review of Systems Constitutional: Denied any fatigue denied any fever. Cardio vascular: denied any chest pain, palpitations Gastrointestinal: denied any nausea, vomiting, diarrhea Pulmonary: Denied any shortness of breath cough Neurologic denied any new focal deficits All inpatient medications were reviewed and appropriate changes in these medications as dictated in the interval history and assessment and plan. PHYSICAL EXAMINATION: GENERAL: The patient is alert and oriented x3, ill appearance, nasal cannula in place HEENT: Pupils are round and equally reacting to light. EOMI. No scleral icterus CARDIOVASCULAR: S1 and S2 present. No murmurs, rubs, or gallops. PULMONARY: Chest is clear to auscultation, no wheezing or crackles. ABDOMEN: Soft, nontender, nondistended, normoactive bowel sounds. No palpable organomegaly. MUSCULOSKELETAL: No joint swelling or deformity. EXTREMITIES: No cyanosis, clubbing, or pedal edema. NEUROLOGICAL: Gross neurological examination did not reveal any focal deficits. SKIN: Chronic changes noted bilateral lower extremity left foot bandage Assessment and plan Acute hypoxemic respiratory failure secondary to influenza A viral infection Acute influenza A infection patient continues on oral tamiflu Urinary tract infection with ESBL currently on IV meropenem and IV vancomycin Donna bacteremia has been started on IV diflucan. PICC Line removed and sent for culture. Repeat blood cultures in place. Left foot cellulitis, history of osteomyelitis with MRSA and pseudomonas. 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 GI prophylaxis pepcid DVT prophylaxis lovenox Full Code The impression and plan of care has been dictated by Silvia Ralph, Nurse Practitioner as directed. Dr. Karlie MD I have performed a history and physical examination and medical decision making of this patient, discussed the same with the dictator, and agree with the dictators assessment and plan as written, documented as a scribe. Based on total visit time, I have performed more than 50% of this visit. Objective - Vital Signs Vital signs: Vital Signs Temp 97.6 F 01/16/24 07:38 Pulse 75 01/16/24 07:38 Resp 18 01/16/24 07:38 BP 170/79 01/16/24 07:38 Pulse Ox 100 01/16/24 07:38 FiO2 Intake & Output 01/15/24 01/16/24 01/16/24 18:59 06:59 18:59 Output Total 2700 1350 Balance -2700 -1350 Weight 77.111 kg Output: Urine 2700 1350 Other: Voiding Method Diaper Diaper Diaper External Catheter External Catheter External Catheter - Labs CBC & Chem 7: 01/16/24 08:37 01/16/24 08:37 Labs: Abnormal Lab Results - Last 24 Hours (Table) 01/15/24 01/15/24 01/16/24 Range/Units 17:07 20:59 08:37 RBC (4.30-5.90) m/uL Hgb (13.0-17.5) gm/dL Hct (39.0-53.0) % MCHC (31.0-37.0) g/dL Lymphocytes # (1.0-4.8) k/uL Chloride 109 H (98-107) mmol/L BUN 23 H (9-20) mg/dL Glucose 103 H (74-99) mg/dL POC Glucose (mg/dL) 226 H 311 H (70-110) mg/dL Calcium 8.0 L (8.4-10.2) mg/dL 01/16/24 Range/Units 08:37 RBC 3.86 L (4.30-5.90) m/uL Hgb 11.5 L (13.0-17.5) gm/dL Hct 37.3 L (39.0-53.0) % MCHC 30.9 L (31.0-37.0) g/dL Lymphocytes # 0.7 L (1.0-4.8) k/uL Chloride (98-107) mmol/L BUN (9-20) mg/dL Glucose (74-99) mg/dL POC Glucose (mg/dL) (70-110) mg/dL Calcium (8.4-10.2) mg/dL Microbiology - Last 24 Hours (Table) 01/13/24 03:20 Blood Culture Gram Stain - Preliminary Blood Blood Culture - Preliminary 01/13/24 02:21 Urine Culture - Final Urine,Voided Escherichia coli Proteus mirabilis 01/14/24 18:48 Blood Culture - Preliminary Blood 01/14/24 18:50 Blood Culture - Preliminary Blood 01/13/24 03:05 Blood Culture Gram Stain - Final Blood Blood Culture - Final Donna albicans Assessment and Plan Time with Patient: Less than 30
--- NOTE | 2024-01-16 15:01 | P.PN ---
Subjective Progress Note Date: 01/16/24 Principal diagnosis: Reason for follow-up is left heel osteomyelitis and UTI Patient is a 73-year-old male with a past medical history significant for diabetes mellitus hypertension hyperlipidemia [place] patient did have a chronic nonhealing wound to the left heel area with underlying osteomyelitis culture positive for Pseudomonas and MRSA, presented to hospital with abdominal pain has been diagnosed with cystitis. On today's evaluation that is 01/16/2024, patient has been afebrile, patient is breathing comfortably and is currently on 2 L nasal cannula oxygen, patient denies having any significant cough no chest pain shortness of breath, patient denies nausea vomiting or diarrhea and no abdominal pain. Patient white count is 6.3, creatinine is 1.0 urine is growing ESBL E. coli and Proteus blood cultures with Donna albicans Objective - Vital Signs Vital signs: Vital Signs Temp 97.6 F 01/16/24 07:38 Pulse 75 01/16/24 07:38 Resp 18 01/16/24 07:38 BP 170/79 01/16/24 07:38 Pulse Ox 100 01/16/24 07:38 FiO2 Intake & Output 01/15/24 01/16/24 01/16/24 18:59 06:59 18:59 Output Total 2700 1350 Balance -2700 -1350 Weight 77.111 kg Output: Urine 2700 1350 Other: Voiding Method Diaper Diaper Diaper External Catheter External Catheter External Catheter - Exam GENERAL DESCRIPTION: An elderly male lying in bed in no distress RESPIRATORY SYSTEM: Unlabored breathing , decreased breath sounds at bases HEART: S1 S2 regular rate and rhythm , ABDOMEN: Soft , no tenderness EXTREMITIES: Left heel is currently dressed - Labs CBC & Chem 7: 01/16/24 08:37 01/16/24 08:37 Labs: Abnormal Lab Results - Last 24 Hours (Table) 01/15/24 01/15/24 01/16/24 Range/Units 17:07 20:59 08:37 RBC (4.30-5.90) m/uL Hgb (13.0-17.5) gm/dL Hct (39.0-53.0) % MCHC (31.0-37.0) g/dL Lymphocytes # (1.0-4.8) k/uL Chloride 109 H (98-107) mmol/L BUN 23 H (9-20) mg/dL Glucose 103 H (74-99) mg/dL POC Glucose (mg/dL) 226 H 311 H (70-110) mg/dL Calcium 8.0 L (8.4-10.2) mg/dL 01/16/24 Range/Units 08:37 RBC 3.86 L (4.30-5.90) m/uL Hgb 11.5 L (13.0-17.5) gm/dL Hct 37.3 L (39.0-53.0) % MCHC 30.9 L (31.0-37.0) g/dL Lymphocytes # 0.7 L (1.0-4.8) k/uL Chloride (98-107) mmol/L BUN (9-20) mg/dL Glucose (74-99) mg/dL POC Glucose (mg/dL) (70-110) mg/dL Calcium (8.4-10.2) mg/dL Microbiology - Last 24 Hours (Table) 01/13/24 03:20 Blood Culture Gram Stain - Preliminary Blood Blood Culture - Preliminary 01/13/24 02:21 Urine Culture - Final Urine,Voided Escherichia coli Proteus mirabilis 01/14/24 18:48 Blood Culture - Preliminary Blood 01/14/24 18:50 Blood Culture - Preliminary Blood 01/13/24 03:05 Blood Culture Gram Stain - Final Blood Blood Culture - Final Donna albicans Assessment and Plan (1) Influenza A Current Visit: Yes Status: Acute Code(s): J10.1 - FLU DUE TO OTH IDENT INFLUENZA VIRUS W OTH RESP MANIFEST SNOMED Code(s): 216493995 (2) Urinary tract infection Current Visit: Yes Status: Acute Code(s): N39.0 - URINARY TRACT INFECTION, SITE NOT SPECIFIED SNOMED Code(s): 55482814 (3) Osteomyelitis of left foot Current Visit: No Status: Acute Code(s): M86.9 - OSTEOMYELITIS, UNSPECIFIED SNOMED Code(s): 8684454620905897 (4) Candidemia Current Visit: Yes Status: Acute Code(s): B37.7 - CANDIDAL SEPSIS SNOMED Code(s): 832815076 (5) Infection due to ESBL-producing Escherichia coli Current Visit: Yes Status: Acute Code(s): A49.8 - OTHER BACTERIAL INFECTIONS OF UNSPECIFIED SITE; Z16.12 - EXTENDED SPECTRUM BETA LACTAMASE (ESBL) RESISTANCE SNOMED Code(s): 345539628 Plan: 1patient presented to hospital abdominal pain in this patient who did have a positive UA both CT ultrasound has been suggestive of cystitis to be the likely etiology of his abdominal pain has no other acute process was seen on the CT abdominal pelvis and the patient did have significant tenderness on abdominal examination likely from enteric gram-negative pathogen. 2patient with a left heel osteomyelitis with outpatient culture positive for MRSA for which the patient has been receiving daptomycin at the local halfway 3--continue local wound care to the left heel and keep the area of the pressure 4-patient to finish 5-day course of Tamiflu 5-patient with a positive blood culture with Donna albicans high clinical suspicion for related to the PICC line, PICC line has been discontinued blood cultures be obtained daily document clearance of candidemia and continue with the Diflucan 6urine cultures are growing ESBL E. coli, patient to continue with meropenem 1 g every 8 hours Dictation was produced using [employer] dictation software. please excuse any grammatical, word or spelling errors. Time with Patient: Less than 30
[2024-01-16 17:16] LABS: Glucose,Whole Blood 262 mg/dL (70-110)
[2024-01-16 20:43] LABS: Glucose,Whole Blood 167 mg/dL (70-110)
[2024-01-16] MEDS: OSELTAMIVIR 75 MG CAP PO SCH (20:45)
[2024-01-17 06:16] LABS: Glucose,Whole Blood 205 mg/dL (70-110)
[2024-01-17 09:17] LABS: BUN/Creat Ratio 16.92 Ratio (12.00-20.00); Blood Urea Nitrogen 20.3 mg/dL (9.0-27.0); Calcium 8.5 mg/dL (8.7-10.3); Chloride 107 mmol/L (96-109); Glucose 180 mg/dL (70-110); Potassium 4.4 mmol/L (3.5-5.5); Sodium 139 mmol/L (135-145)
[2024-01-17 11:57] LABS: Glucose,Whole Blood 156 mg/dL (70-110)
--- NOTE | 2024-01-17 12:36 | P.PN ---
Subjective Progress Note Date: 01/17/24 Principal diagnosis: Reason for follow-up is left heel osteomyelitis and UTI Patient is a 73-year-old male with a past medical history significant for diabetes mellitus hypertension hyperlipidemia [place] patient did have a chronic nonhealing wound to the left heel area with underlying osteomyelitis culture positive for Pseudomonas and MRSA, presented to hospital with abdominal pain has been diagnosed with cystitis. On today's evaluation that is 01/17/2024,the patient denies any fever or any chills, patient is breathing comfortably on room air, the patient denies chest pain shortness of breath and no significant cough, patient denies abdominal pain, no nausea vomiting or diarrhea. Patient did have a creatinine of 1.2 sed rate is 91 CRP is 4.40 blood culture repeat currently pending Objective - Vital Signs Vital signs: Vital Signs Temp 97.9 F 01/17/24 07:50 Pulse 61 01/17/24 07:50 Resp 18 01/17/24 07:50 BP 152/72 01/17/24 07:50 Pulse Ox 99 01/17/24 07:50 FiO2 Intake & Output 01/16/24 01/17/24 01/17/24 18:59 06:59 18:59 Output Total 400 1950 800 Balance -400 -1950 -800 Weight 77.111 kg Output: Urine 400 1950 800 Other: Voiding Method Diaper External Catheter External Catheter External Catheter # Voids 2 - Exam GENERAL DESCRIPTION: An elderly male lying in bed in no distress RESPIRATORY SYSTEM: Unlabored breathing , decreased breath sounds at bases HEART: S1 S2 regular rate and rhythm , ABDOMEN: Soft , no tenderness EXTREMITIES: Left heel is currently dressed - Labs CBC & Chem 7: 01/16/24 08:37 01/17/24 05:44 Labs: Abnormal Lab Results - Last 24 Hours (Table) 01/16/24 01/16/24 01/17/24 Range/Units 17:15 20:42 05:44 ESR (0-20) mm/Hr Glucose 180 H (70-110) mg/dL POC Glucose (mg/dL) 262 H 167 H (70-110) mg/dL Calcium 8.5 L (8.7-10.3) mg/dL C-Reactive Protein 4.40 H (0.00-0.80) mg/dL 01/17/24 01/17/24 01/17/24 Range/Units 05:44 06:14 11:55 ESR 91 H (0-20) mm/Hr Glucose (70-110) mg/dL POC Glucose (mg/dL) 205 H 156 H (70-110) mg/dL Calcium (8.7-10.3) mg/dL C-Reactive Protein (0.00-0.80) mg/dL Microbiology - Last 24 Hours (Table) 01/15/24 13:19 Catheter Tip Culture - Preliminary Picc Line 01/13/24 03:20 Blood Culture Gram Stain - Final Blood Blood Culture - Final Donna albicans 01/14/24 18:48 Blood Culture - Preliminary Blood 01/14/24 18:50 Blood Culture - Preliminary Blood 01/13/24 02:21 Urine Culture - Final Urine,Voided Escherichia coli Proteus mirabilis Assessment and Plan (1) Influenza A Current Visit: Yes Status: Acute Code(s): J10.1 - FLU DUE TO OTH IDENT INFLUENZA VIRUS W OTH RESP MANIFEST SNOMED Code(s): 704713327 (2) Urinary tract infection Current Visit: Yes Status: Acute Code(s): N39.0 - URINARY TRACT INFECTION, SITE NOT SPECIFIED SNOMED Code(s): 35862767 (3) Osteomyelitis of left foot Current Visit: No Status: Acute Code(s): M86.9 - OSTEOMYELITIS, UNSPECIFIED SNOMED Code(s): 6442274896730755 (4) Candidemia Current Visit: Yes Status: Acute Code(s): B37.7 - CANDIDAL SEPSIS SNOMED Code(s): 923820034 (5) Infection due to ESBL-producing Escherichia coli Current Visit: Yes Status: Acute Code(s): A49.8 - OTHER BACTERIAL INFECTIONS OF UNSPECIFIED SITE; Z16.12 - EXTENDED SPECTRUM BETA LACTAMASE (ESBL) RESISTANCE SNOMED Code(s): 036169312 Plan: 1patient presented to hospital abdominal pain in this patient who did have a positive UA both CT ultrasound has been suggestive of cystitis to be the likely etiology of his abdominal pain has no other acute process was seen on the CT abdominal pelvis and the patient did have significant tenderness on abdominal examination likely from enteric gram-negative pathogen. 2patient with a left heel osteomyelitis with outpatient culture positive for MRSA for which the patient has been [facility], currently on vancomycin pharmacy to dose to continue 3--continue local wound care to the left heel and keep the area of the pressure 4-patient to finish 5-day course of Tamiflu 5-patient with a positive blood culture with Donna albicans high clinical suspicion for related to the PICC line, PICC line has been discontinued blood cultures has been repeated which are currently pending, patient to continue with the Diflucan 6urine cultures are growing ESBL E. coli, patient to continue with meropenem 1 g every 8 hours and monitor his clinical course closely Dictation was produced using [employer] dictation software. please excuse any grammatical, word or spelling errors. Time with Patient: Less than 30
--- NOTE | 2024-01-17 14:27 | P.PN ---
Subjective Progress Note Date: 01/17/24 Patient is evaluated in follow up today. Sent over from [facility] due to hypoxemia and found to be positive for Influenza. He is maintained on tamiflu at this time. He is currently denying shortness of breath. His wound culture to the left heel positive for MRSA and pseudomonas and patient remains on IV antibiotics with ID following closely. Patient has positive urine tract infection with culture showing E.Coli ESBL. Blood culture is growing donna albicans and his PICC Line has been removed and sent for culture. ID following closely. Blood work today reveals white count of 7.44, hemoglobin 11.2. BUN 31, creatinine 1.13. Blood glucose increased. Hemoglobin A1C 9.6. 01/16/2024 Patient is evaluated in follow up. He remains primarily bed rest. PT following he is from rehab. His PICC line was removed yesterday due to donna bacteremia and the catheter tip was sent for culture. ID following closely. IV fluconazole was added. Patient denies any shortness of breath and rest. He is continued on oxygen therapy. White blood cell count today is 6.3, hemoglobin 11.5, sodium 139, potassium 4.3, BUN of 23, creatinine of 1.00. 01/17/2024 Patient is evaluated today in follow-up he is sitting up in the chair he is denying any shortness of breath he is not having any cough he has been weaned to room air. PICC line has been removed with culture tip pending. 2/2 blood cultures growing Donna bacteremia. Review of Systems Constitutional: Denied any fatigue denied any fever. Cardio vascular: denied any chest pain, palpitations Gastrointestinal: denied any nausea, vomiting, diarrhea Pulmonary: Denied any shortness of breath cough Neurologic denied any new focal deficits All inpatient medications were reviewed and appropriate changes in these medications as dictated in the interval history and assessment and plan. PHYSICAL EXAMINATION: GENERAL: The patient is alert and oriented x3, ill appearance, nasal cannula in place HEENT: Pupils are round and equally reacting to light. EOMI. No scleral icterus CARDIOVASCULAR: S1 and S2 present. No murmurs, rubs, or gallops. PULMONARY: Chest is clear to auscultation, no wheezing or crackles. ABDOMEN: Soft, nontender, nondistended, normoactive bowel sounds. No palpable organomegaly. MUSCULOSKELETAL: No joint swelling or deformity. EXTREMITIES: No cyanosis, clubbing, or pedal edema. NEUROLOGICAL: Gross neurological examination did not reveal any focal deficits. SKIN: Chronic changes noted bilateral lower extremity left foot bandage Assessment and plan Acute hypoxemic respiratory failure secondary to influenza A viral infection Acute influenza A infection patient continues on oral tamiflu Urinary tract infection with ESBL currently on IV meropenem and IV vancomycin Donna bacteremia has been started on IV diflucan. PICC Line removed and sent for culture. Repeat blood cultures in place. Left foot cellulitis, history of osteomyelitis with MRSA and pseudomonas. 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 GI prophylaxis pepcid DVT prophylaxis lovenox Full Code The impression and plan of care has been dictated by Silvia Ralph, Nurse Practitioner as directed. Dr. Karlie MD I have performed a history and physical examination and medical decision making of this patient, discussed the same with the dictator, and agree with the dictators assessment and plan as written, documented as a scribe. Based on total visit time, I have performed more than 50% of this visit. Objective - Vital Signs Vital signs: Vital Signs Temp 97.9 F 01/17/24 07:50 Pulse 61 01/17/24 07:50 Resp 18 01/17/24 07:50 BP 152/72 01/17/24 07:50 Pulse Ox 99 01/17/24 07:50 FiO2 Intake & Output 01/16/24 01/17/24 01/17/24 18:59 06:59 18:59 Output Total 400 1950 1300 Balance -400 -1950 -1300 Weight 77.111 kg Output: Urine 400 1950 1300 Other: Voiding Method Diaper External Catheter External Catheter External Catheter # Voids 2 # Bowel Movements 1 - Labs CBC & Chem 7: 01/16/24 08:37 01/17/24 05:44 Labs: Abnormal Lab Results - Last 24 Hours (Table) 01/16/24 01/16/24 01/17/24 Range/Units 17:15 20:42 05:44 ESR (0-20) mm/Hr Glucose 180 H (70-110) mg/dL POC Glucose (mg/dL) 262 H 167 H (70-110) mg/dL Calcium 8.5 L (8.7-10.3) mg/dL C-Reactive Protein 4.40 H (0.00-0.80) mg/dL 01/17/24 01/17/24 01/17/24 Range/Units 05:44 06:14 11:55 ESR 91 H (0-20) mm/Hr Glucose (70-110) mg/dL POC Glucose (mg/dL) 205 H 156 H (70-110) mg/dL Calcium (8.7-10.3) mg/dL C-Reactive Protein (0.00-0.80) mg/dL Microbiology - Last 24 Hours (Table) 01/15/24 13:19 Catheter Tip Culture - Preliminary Picc Line 01/13/24 03:20 Blood Culture Gram Stain - Final Blood Blood Culture - Final Donna albicans 01/14/24 18:48 Blood Culture - Preliminary Blood 01/14/24 18:50 Blood Culture - Preliminary Blood 01/13/24 02:21 Urine Culture - Final Urine,Voided Escherichia coli Proteus mirabilis Assessment and Plan Time with Patient: Less than 30
[2024-01-17 17:03] LABS: Glucose,Whole Blood 160 mg/dL (70-110)
[2024-01-17 20:34] LABS: Glucose,Whole Blood 228 mg/dL (70-110)
[2024-01-18 05:51] LABS: Glucose,Whole Blood 104 mg/dL (70-110)
[2024-01-18 11:19] LABS: Basophils # (A) 0.05 X 10*3/uL (0.00-0.10); Basophils % (A) 0.8 %; Eosinophils % (A) 6.2 %; HCT 40.8 % (39.6-50.0); HGB 12.6 g/dL (13.0-17.0); Lymphocytes % (A) 21.6 %; MCH 28.8 pg (27.0-32.0); MCHC 30.9 g/dL (32.0-37.0); MCV 93.2 FL (80.0-97.0); Mean Platelet Volume 10.1 FL (9.5-12.2); Monocytes # (A) 0.69 X 10*3/uL (0.20-1.00); Monocytes % (A) 10.6 %; NRBC Per 100 WBC 0 X 10*3/uL (0.00-0.01); Neutrophils # (A) 3.87 X 10*3/uL (1.80-7.70); Neutrophils % (A) 59.6 %; Platelet Count 234 X 10*3/uL (140-440); RBC 4.38 X 10*6/uL (4.40-5.60); RDW 12.7 % (11.5-14.5); WBC 6.49 X 10*3/uL (4.50-10.00)
[2024-01-18 11:45] LABS: BUN/Creat Ratio 17.33 Ratio (12.00-20.00); Blood Urea Nitrogen 20.8 mg/dL (9.0-27.0); Calcium 8.6 mg/dL (8.7-10.3); Carbon Dioxide 24.3 mmol/L (21.6-31.8); Chloride 107 mmol/L (96-109); Glucose 78 mg/dL (70-110); Potassium 4.4 mmol/L (3.5-5.5); Sodium 141 mmol/L (135-145)
[2024-01-18 11:53] LABS: Glucose,Whole Blood 136 mg/dL (70-110)
--- NOTE | 2024-01-18 15:08 | P.PN ---
Subjective Progress Note Date: 01/18/24 Principal diagnosis: Reason for follow-up is left heel osteomyelitis and UTI Patient is a 73-year-old male with a past medical history significant for diabetes mellitus hypertension hyperlipidemia SC patient did have a chronic nonhealing wound to the left heel area with underlying osteomyelitis culture positive for Pseudomonas and MRSA, presented to hospital with abdominal pain has been diagnosed with cystitis. On today's evaluation that is 01/18/2024,the patient remains to be afebrile, patient is on room air not requiring supplemental oxygen and denies any short ness of breath no chest pain or cough.Patient denies having any nausea or vomiting, no abdominal pain and no diarrhea has been reported, no new symptoms. Patient white count 6.49, creatinine 1.2 blood culture repeat currently pending Objective - Vital Signs Vital signs: Vital Signs Temp 98.1 F 01/18/24 07:31 Pulse 59 L 01/18/24 07:31 Resp 17 01/18/24 07:31 BP 144/69 01/18/24 07:31 Pulse Ox 93 L 01/18/24 08:02 FiO2 Intake & Output 01/17/24 01/18/24 01/18/24 18:59 06:59 18:59 Output Total 1795 1650 600 Balance -1795 -1650 -600 Output: Urine 1795 1650 600 Other: Voiding Method External Catheter External Catheter External Catheter # Voids 3 # Bowel Movements 1 - Exam GENERAL DESCRIPTION: An elderly male lying in bed in no distress RESPIRATORY SYSTEM: Unlabored breathing , decreased breath sounds at bases HEART: S1 S2 regular rate and rhythm , ABDOMEN: Soft , no tenderness EXTREMITIES: Left heel is currently dressed - Labs CBC & Chem 7: 01/18/24 06:35 01/18/24 06:35 Labs: Abnormal Lab Results - Last 24 Hours (Table) 01/17/24 01/17/24 01/18/24 Range/Units 17:01 20:32 06:35 RBC 4.38 L (4.40-5.60) X 10*6/uL Hgb 12.6 L (13.0-17.0) g/dL MCHC 30.9 L (32.0-37.0) g/dL Immature Gran # 0.08 H (0.00-0.04) X 10*3/uL Eosinophils # 0.40 H (0.04-0.35) X 10*3/uL POC Glucose (mg/dL) 160 H 228 H (70-110) mg/dL Calcium (8.7-10.3) mg/dL 01/18/24 01/18/24 Range/Units 06:35 11:52 RBC (4.40-5.60) X 10*6/uL Hgb (13.0-17.0) g/dL MCHC (32.0-37.0) g/dL Immature Gran # (0.00-0.04) X 10*3/uL Eosinophils # (0.04-0.35) X 10*3/uL POC Glucose (mg/dL) 136 H (70-110) mg/dL Calcium 8.6 L (8.7-10.3) mg/dL Microbiology - Last 24 Hours (Table) 01/17/24 05:44 Blood Culture - Preliminary Blood 01/15/24 13:19 Catheter Tip Culture - Final Picc Line 01/14/24 18:48 Blood Culture - Preliminary Blood 01/14/24 18:50 Blood Culture - Preliminary Blood 01/16/24 15:18 Blood Culture - Preliminary Blood Assessment and Plan (1) Influenza A Current Visit: Yes Status: Acute Code(s): J10.1 - FLU DUE TO OTH IDENT INFLUENZA VIRUS W OTH RESP MANIFEST SNOMED Code(s): 209574760 (2) Urinary tract infection Current Visit: Yes Status: Acute Code(s): N39.0 - URINARY TRACT INFECTION, SITE NOT SPECIFIED SNOMED Code(s): 44911119 (3) Osteomyelitis of left foot Current Visit: No Status: Acute Code(s): M86.9 - OSTEOMYELITIS, UNSPECIFIED SNOMED Code(s): 2843600428106505 (4) Candidemia Current Visit: Yes Status: Acute Code(s): B37.7 - CANDIDAL SEPSIS SNOMED Code(s): 564558697 (5) Infection due to ESBL-producing Escherichia coli Current Visit: Yes Status: Acute Code(s): A49.8 - OTHER BACTERIAL INFECTIONS OF UNSPECIFIED SITE; Z16.12 - EXTENDED SPECTRUM BETA LACTAMASE (ESBL) RESISTANCE SNOMED Code(s): 933584267 Plan: 1patient presented to hospital abdominal pain in this patient who did have a positive UA both CT ultrasound has been suggestive of cystitis to be the likely etiology of his abdominal pain has no other acute process was seen on the CT abdominal pelvis and the patient did have significant tenderness on abdominal examination likely from enteric gram-negative pathogen. 2patient with a left heel osteomyelitis with outpatient culture positive for MRSA for which the patient has been receiving [facility]aptomycin [facility] the [facility], currently on vancomycin pharmacy to dose to continue 3--continue local wound care to the left heel per the wound care and keep the area of the pressure 4-patient has completed 5-day course of Tamiflu 5-patient with a positive blood culture with Donna albicans high clinical suspicion for related to the PICC line, PICC line has been discontinued blood cultures has been repeated which are currently pending, patient to continue with the Diflucan 6urine cultures are growing ESBL E. coli, patient to continue with meropenem 1 g every 8 hours and monitor his clinical course closely, we will wait for the repeat culture to be negative before placement of another midline for completion of outpatient antibiotic therapy Dictation was produced using [employer] dictation software. please excuse any grammatical, word or spelling errors. Time with Patient: Less than 30
--- NOTE | 2024-01-18 16:05 | P.PN ---
Subjective Progress Note Date: 01/18/24 Patient is evaluated in follow up today. Sent over from [facility] due to hypoxemia and found to be positive for Influenza. He is maintained on tamiflu at this time. He is currently denying shortness of breath. His wound culture to the left heel positive for MRSA and pseudomonas and patient remains on IV antibiotics with ID following closely. Patient has positive urine tract infection with culture showing E.Coli ESBL. Blood culture is growing donna albicans and his PICC Line has been removed and sent for culture. ID following closely. Blood work today reveals white count of 7.44, hemoglobin 11.2. BUN 31, creatinine 1.13. Blood glucose increased. Hemoglobin A1C 9.6. 01/16/2024 Patient is evaluated in follow up. He remains primarily bed rest. PT following he is from rehab. His PICC line was removed yesterday due to donna bacteremia and the catheter tip was sent for culture. ID following closely. IV fluconazole was added. Patient denies any shortness of breath and rest. He is continued on oxygen therapy. White blood cell count today is 6.3, hemoglobin 11.5, sodium 139, potassium 4.3, BUN of 23, creatinine of 1.00. 01/17/2024 Patient is evaluated today in follow-up he is sitting up in the chair he is denying any shortness of breath he is not having any cough he has been weaned to room air. PICC line has been removed with culture tip pending. 2/2 blood cultures growing Donna bacteremia. 01/18/2024 Patient is evaluated today on the medical floor. He is currently resting comfor tably in the bed. He has no acute complaints. He was found to have Donna bacteremia and has been placed on IV fluconazole and remains on antibiotics for the left heel osteomyelitis with IV ertapenem and IV vancomycin. ID following closely. Review of Systems Constitutional: Denied any fatigue denied any fever. Cardio vascular: denied any chest pain, palpitations Gastrointestinal: denied any nausea, vomiting, diarrhea Pulmonary: Denied any shortness of breath cough Neurologic denied any new focal deficits All inpatient medications were reviewed and appropriate changes in these medications as dictated in the interval history and assessment and plan. PHYSICAL EXAMINATION: GENERAL: The patient is alert and oriented x3, ill appearance, nasal cannula in place HEENT: Pupils are round and equally reacting to light. EOMI. No scleral icterus CARDIOVASCULAR: S1 and S2 present. No murmurs, rubs, or gallops. PULMONARY: Chest is clear to auscultation, no wheezing or crackles. ABDOMEN: Soft, nontender, nondistended, normoactive bowel sounds. No palpable organomegaly. MUSCULOSKELETAL: No joint swelling or deformity. EXTREMITIES: No cyanosis, clubbing, or pedal edema. NEUROLOGICAL: Gross neurological examination did not reveal any focal deficits. SKIN: Chronic changes noted bilateral lower extremity left foot bandage Assessment and plan Acute hypoxemic respiratory failure secondary to influenza A viral infection Acute influenza A infection patient continues on oral tamiflu Urinary tract infection with ESBL currently on IV meropenem Donna bacteremia has been started on IV diflucan. PICC Line removed and sent for culture. Repeat blood cultures in place. Left foot cellulitis, history of osteomyelitis with MRSA and pseudomonas. Was on IV daptomycin outpatient, has been continued on IV vancomycin while inpatient. 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 GI prophylaxis pepcid DVT prophylaxis lovenox Full Code PICC line has been removed with catheter tip sent for culture. Once blood cultures are negative patient will have a midline placed for continuation of outpatient antibiotics. Patient has completed course of tamiflu. He has been weaned to room air. The impression and plan of care has been dictated by Silvia Ralph, Nurse Practitioner as directed. Dr. Karlie MD I have performed a history and physical examination and medical decision making of this patient, discussed the same with the dictator, and agree with the dictators assessment and plan as written, documented as a scribe. Based on total visit time, I have performed more than 50% of this visit. Objective - Vital Signs Vital signs: Vital Signs Temp 98.1 F 01/18/24 07:31 Pulse 59 L 01/18/24 07:31 Resp 17 01/18/24 07:31 BP 144/69 01/18/24 07:31 Pulse Ox 93 L 01/18/24 08:02 FiO2 Intake & Output 01/17/24 01/18/24 01/18/24 18:59 06:59 18:59 Output Total 1795 1650 600 Balance -1795 -1650 -600 Output: Urine 1795 1650 600 Other: Voiding Method External Catheter External Catheter External Catheter # Voids 3 # Bowel Movements 1 - Labs CBC & Chem 7: 01/18/24 06:35 01/18/24 06:35 Labs: Abnormal Lab Results - Last 24 Hours (Table) 01/17/24 01/17/24 01/18/24 Range/Units 17:01 20:32 06:35 RBC 4.38 L (4.40-5.60) X 10*6/uL Hgb 12.6 L (13.0-17.0) g/dL MCHC 30.9 L (32.0-37.0) g/dL Immature Gran # 0.08 H (0.00-0.04) X 10*3/uL Eosinophils # 0.40 H (0.04-0.35) X 10*3/uL POC Glucose (mg/dL) 160 H 228 H (70-110) mg/dL Calcium (8.7-10.3) mg/dL 01/18/24 01/18/24 Range/Units 06:35 11:52 RBC (4.40-5.60) X 10*6/uL Hgb (13.0-17.0) g/dL MCHC (32.0-37.0) g/dL Immature Gran # (0.00-0.04) X 10*3/uL Eosinophils # (0.04-0.35) X 10*3/uL POC Glucose (mg/dL) 136 H (70-110) mg/dL Calcium 8.6 L (8.7-10.3) mg/dL Microbiology - Last 24 Hours (Table) 01/17/24 05:44 Blood Culture - Preliminary Blood 01/15/24 13:19 Catheter Tip Culture - Final Picc Line 01/14/24 18:48 Blood Culture - Preliminary Blood 01/14/24 18:50 Blood Culture - Preliminary Blood 01/16/24 15:18 Blood Culture - Preliminary Blood Assessment and Plan Time with Patient: Less than 30
[2024-01-18 16:35] LABS: Glucose,Whole Blood 175 mg/dL (70-110)
[2024-01-18 20:02] LABS: Glucose,Whole Blood 169 mg/dL (70-110)
[2024-01-19 05:54] LABS: Glucose,Whole Blood 51 mg/dL (70-110)
[2024-01-19 06:22] LABS: Glucose,Whole Blood 112 mg/dL (70-110)
[2024-01-19] MEDS: VANCOMYCIN TROUGH DUE 1 EACH MISC MISCELLANE ONE (06:47)
[2024-01-19 08:08] LABS: African American GFR (CKD) 64 (>60 ml/min/1.73 sqM); Non-African American GFR(CKD) 55 (>60 ml/min/1.73 sqM)
[2024-01-19] MEDS ORDERED: VANCOMYCIN IV PER PHARMACY 1 EACH MISC MISCELLANE PRN (09:42)
[2024-01-19 11:38] LABS: Glucose,Whole Blood 162 mg/dL (70-110)
--- NOTE | 2024-01-19 14:29 | P.PN ---
Subjective Progress Note Date: 01/19/24 Patient is evaluated in follow up today. Sent over from [facility] due to hypoxemia and found to be positive for Influenza. He is maintained on tamiflu at this time. He is currently denying shortness of breath. His wound culture to the left heel positive for MRSA and pseudomonas and patient remains on IV antibiotics with ID following closely. Patient has positive urine tract infection with culture showing E.Coli ESBL. Blood culture is growing donna albicans and his PICC Line has been removed and sent for culture. ID following closely. Blood work today reveals white count of 7.44, hemoglobin 11.2. BUN 31, creatinine 1.13. Blood glucose increased. Hemoglobin A1C 9.6. 01/16/2024 Patient is evaluated in follow up. He remains primarily bed rest. PT following he is from rehab. His PICC line was removed yesterday due to donna bacteremia and the catheter tip was sent for culture. ID following closely. IV fluconazole was added. Patient denies any shortness of breath and rest. He is continued on oxygen therapy. White blood cell count today is 6.3, hemoglobin 11.5, sodium 139, potassium 4.3, BUN of 23, creatinine of 1.00. 01/17/2024 Patient is evaluated today in follow-up he is sitting up in the chair he is denying any shortness of breath he is not having any cough he has been weaned to room air. PICC line has been removed with culture tip pending. 2/2 blood cultures growing Donna bacteremia. 01/18/2024 Patient is evaluated today on the medical floor. He is currently resting comfor tably in the bed. He has no acute complaints. He was found to have Donna bacteremia and has been placed on IV fluconazole and remains on antibiotics for the left heel osteomyelitis with IV ertapenem and IV vancomycin. ID following closely. 01/19/2024 Patient is evaluated today on the medical floor. no acute complaints. He is maintained on room air. He has completed course of tamiflu for the influenza A infection. He remains on IV fluconazole, IV vancomycin and IV meropenem. Once blood cultures are negative he will either have PICC line or midline placed to complete course of antibiotic therapy outpatient. He has been on prolonged antibiotic therapy outpatient due to left heel wound with osteomyelitis. PICC line was removed and culture has been negative of the catheter tip. Review of Systems Constitutional: Denied any fatigue denied any fever. Cardio vascular: denied any chest pain, palpitations Gastrointestinal: denied any nausea, vomiting, diarrhea Pulmonary: Denied any shortness of breath cough Neurologic denied any new focal deficits All inpatient medications were reviewed and appropriate changes in these medications as dictated in the interval history and assessment and plan. PHYSICAL EXAMINATION: GENERAL: The patient is alert and oriented x3, ill appearance, nasal cannula in place HEENT: Pupils are round and equally reacting to light. EOMI. No scleral icterus CARDIOVASCULAR: S1 and S2 present. No murmurs, rubs, or gallops. PULMONARY: Chest is clear to auscultation, no wheezing or crackles. ABDOMEN: Soft, nontender, nondistended, normoactive bowel sounds. No palpable organomegaly. MUSCULOSKELETAL: No joint swelling or deformity. EXTREMITIES: No cyanosis, clubbing, or pedal edema. NEUROLOGICAL: Gross neurological examination did not reveal any focal deficits. SKIN: Chronic changes noted bilateral lower extremity left foot bandage Assessment and plan Acute hypoxemic respiratory failure secondary to influenza A viral infection resolved and on room air. Acute influenza A infection Completed course of tamiflu. Urinary tract infection with ESBL currently on IV meropenem Donna bacteremia has been started on IV diflucan. PICC Line removed and sent for culture which was negative. Once Blood cultures are negative patient to receive either PICC line or midline for continued antibiotic therapy. Left foot cellulitis, history of osteomyelitis with MRSA and pseudomonas. Was on IV daptomycin outpatient, has been continued on IV vancomycin while inpatient. 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 GI prophylaxis pepcid DVT prophylaxis lovenox Full Code Once blood cultures are negative patient will have a midline placed for co ntinuation of outpatient antibiotics. Patient has completed course of tamiflu. He has been weaned to room air. Pending further recommendations from ID. Local wound care to the left heel provided by [facility] wound care. Epifex is in place and dressing is not to be removed at this time. The impression and plan of care has been dictated by Silvia Ralph, Nurse Practitioner as directed. Dr. Karlie MD I have performed a history and physical examination and medical decision making of this patient, discussed the same with the dictator, and agree with the dictators assessment and plan as written, documented as a scribe. Based on total visit time, I have performed more than 50% of this visit. Objective - Vital Signs Vital signs: Vital Signs Temp 96 F L 01/19/24 08:00 Pulse 68 01/19/24 08:00 Resp 17 01/19/24 08:00 BP 172/70 01/19/24 08:00 Pulse Ox 96 01/19/24 08:00 FiO2 Intake & Output 01/18/24 01/19/24 01/19/24 18:59 06:59 18:59 Intake Total 120 Output Total 1300 1400 990 Balance -1300 -1280 -990 Intake: Oral 120 Output: Urine 1300 1400 990 Other: Voiding Method External Catheter External Catheter Incontinent - Labs CBC & Chem 7: 01/18/24 06:35 01/19/24 06:40 Labs: Abnormal Lab Results - Last 24 Hours (Table) 01/18/24 01/18/24 01/19/24 Range/Units 16:34 20:01 05:52 Creatinine (0.66-1.25) mg/dL POC Glucose (mg/dL) 175 H 169 H 51 L (70-110) mg/dL 01/19/24 01/19/24 01/19/24 Range/Units 06:21 06:40 11:37 Creatinine 1.28 H (0.66-1.25) mg/dL POC Glucose (mg/dL) 112 H 162 H (70-110) mg/dL Microbiology - Last 24 Hours (Table) 01/18/24 06:35 Blood Culture - Preliminary Blood 01/17/24 05:44 Blood Culture - Preliminary Blood 01/16/24 15:18 Blood Culture - Preliminary Blood Assessment and Plan Time with Patient: Less than 30
--- NOTE | 2024-01-19 16:14 | P.PN ---
Subjective Progress Note Date: 01/19/24 Principal diagnosis: Reason for follow-up is left heel osteomyelitis and UTI Patient is a 73-year-old male with a past medical history significant for diabetes mellitus hypertension hyperlipidemia [place] patient did have a chronic nonhealing wound to the left heel area with underlying osteomyelitis culture positive for Pseudomonas and MRSA, presented to hospital with abdominal pain has been diagnosed with cystitis. On today's evaluation that is 01/19/2024, the patient continues to be afebrile, the patient is on room air and breathing comfortably, the Pt denies having any chest pain or cough, the patient denies having any abdominal pain no vomiting or any diarrhea Patient creatinine is 1.28 vancomycin trough is 26.8 blood culture repeat pending Objective - Vital Signs Vital signs: Vital Signs Temp 96 F L 01/19/24 08:00 Pulse 68 01/19/24 08:00 Resp 17 01/19/24 08:00 BP 172/70 01/19/24 08:00 Pulse Ox 96 01/19/24 08:00 FiO2 Intake & Output 01/18/24 01/19/24 01/19/24 18:59 06:59 18:59 Intake Total 120 Output Total 1300 1400 990 Balance -1300 -1280 -990 Intake: Oral 120 Output: Urine 1300 1400 990 Other: Voiding Method External Catheter External Catheter Incontinent - Exam GENERAL DESCRIPTION: An elderly male lying in bed in no distress RESPIRATORY SYSTEM: Unlabored breathing , decreased breath sounds at bases HEART: S1 S2 regular rate and rhythm , ABDOMEN: Soft , no tenderness EXTREMITIES: Left heel is currently dressed - Labs CBC & Chem 7: 01/18/24 06:35 01/19/24 06:40 Labs: Abnormal Lab Results - Last 24 Hours (Table) 01/18/24 01/18/24 01/19/24 Range/Units 16:34 20:01 05:52 Creatinine (0.66-1.25) mg/dL POC Glucose (mg/dL) 175 H 169 H 51 L (70-110) mg/dL 01/19/24 01/19/24 01/19/24 Range/Units 06:21 06:40 11:37 Creatinine 1.28 H (0.66-1.25) mg/dL POC Glucose (mg/dL) 112 H 162 H (70-110) mg/dL Microbiology - Last 24 Hours (Table) 01/18/24 06:35 Blood Culture - Preliminary Blood 01/17/24 05:44 Blood Culture - Preliminary Blood 01/16/24 15:18 Blood Culture - Preliminary Blood Assessment and Plan (1) Influenza A Current Visit: Yes Status: Acute Code(s): J10.1 - FLU DUE TO OTH IDENT INFLUENZA VIRUS W OTH RESP MANIFEST SNOMED Code(s): 874571778 (2) Urinary tract infection Current Visit: Yes Status: Acute Code(s): N39.0 - URINARY TRACT INFECTION, SITE NOT SPECIFIED SNOMED Code(s): 89316918 (3) Osteomyelitis of left foot Current Visit: No Status: Acute Code(s): M86.9 - OSTEOMYELITIS, UNSPECIFIED SNOMED Code(s): 4939271461070834 (4) Candidemia Current Visit: Yes Status: Acute Code(s): B37.7 - CANDIDAL SEPSIS SNOMED Code(s): 619688633 (5) Infection due to ESBL-producing Escherichia coli Current Visit: Yes Status: Acute Code(s): A49.8 - OTHER BACTERIAL INFECTIONS OF UNSPECIFIED SITE; Z16.12 - EXTENDED SPECTRUM BETA LACTAMASE (ESBL) RESISTANCE SNOMED Code(s): 208300912 Plan: 1patient presented to hospital abdominal pain in this patient who did have a positive UA both CT ultrasound has been suggestive of cystitis to be the likely etiology of his abdominal pain has no other acute process was seen on the CT abdominal pelvis and the patient did have significant tenderness on abdominal examination likely from enteric gram-negative pathogen. 2patient with a left heel osteomyelitis with outpatient culture positive for MRSA for which the [facility], currently on vancomycin pharmacy to dose to continue, however Vanco trough slightly on the high side and does need to be cut back to prevent any worsening kidney function 3--continue local wound care to the left heel per the wound care and keep the area of the pressure 4-patient has completed 5-day course of Tamiflu 5-patient with a positive blood culture with Donna albicans high clinical suspicion for related to the PICC line, PICC line has been discontinued blood cultures has been repeated which are currently pending, patient to continue with the Diflucan 6urine cultures are growing ESBL E. coli, patient to continue with meropenem 1 g every 8 hours and monitor his clinical course closely Dictation was produced using [employer] dictation software. please excuse any grammatical, word or spelling errors. Time with Patient: Less than 30
[2024-01-19 16:19] LABS: Glucose,Whole Blood 106 mg/dL (70-110)
[2024-01-19 20:08] LABS: Glucose,Whole Blood 184 mg/dL (70-110)
[2024-01-20 06:04] LABS: Glucose,Whole Blood 126 mg/dL (70-110)
[2024-01-20 07:01] LABS: African American GFR (CKD) 75 (>60 ml/min/1.73 sqM); Anion Gap 7 mmol/L; Blood Urea Nitrogen 26 mg/dL (9-20); Calcium 8.6 mg/dL (8.4-10.2); Carbon Dioxide 22 mmol/L (22-30); Chloride 109 mmol/L (98-107); Glucose 125 mg/dL (74-99); Non-African American GFR(CKD) 64 (>60 ml/min/1.73 sqM); Potassium 4.4 mmol/L (3.5-5.1); Sodium 138 mmol/L (137-145)
[2024-01-20 07:06] LABS: Vancomycin,Random 24.8 ug/mL
[2024-01-20 11:21] LABS: Glucose,Whole Blood 296 mg/dL (70-110)
--- NOTE | 2024-01-20 15:36 | P.PN ---
Subjective Progress Note Date: 01/20/24 Principal diagnosis: Reason for follow-up is left heel osteomyelitis and UTI Patient is a 73-year-old male with a past medical history significant for diabetes mellitus hypertension hyperlipidemia [place] patient did have a chronic nonhealing wound to the left heel area with underlying osteomyelitis culture positive for Pseudomonas and MRSA, presented to hospital with abdominal pain has been diagnosed with cystitis. On today's evaluation that is 01/20/2024, Patient is afebrile patient is currently on room air and denies having any shortness of breath, the patient denies any chest pain or cough, the patient denies any nausea vomiting did not have any abdominal pain and no diarrhea, denies pain to the left heel wound area. Patient creatinine is 1.13 Vanco random is 24.8 blood culture repeat has been negative Objective - Vital Signs Vital signs: Vital Signs Temp 98.5 F 01/20/24 13:43 Pulse 61 01/20/24 13:43 Resp 18 01/20/24 13:43 BP 130/64 01/20/24 13:43 Pulse Ox 96 01/20/24 13:43 FiO2 Intake & Output 01/19/24 01/20/24 01/20/24 18:59 06:59 18:59 Output Total 1690 2150 Balance -1690 -2150 Weight 77.111 kg Output: Urine 990 2150 Stool 700 Other: Voiding Method Incontinent Incontinent Incontinent External Catheter - Exam GENERAL DESCRIPTION: An elderly male lying in bed in no distress RESPIRATORY SYSTEM: Unlabored breathing , decreased breath sounds at bases HEART: S1 S2 regular rate and rhythm , ABDOMEN: Soft , no tenderness EXTREMITIES: Left heel is currently dressed - Labs CBC & Chem 7: 01/18/24 06:35 01/20/24 06:09 Labs: Abnormal Lab Results - Last 24 Hours (Table) 01/19/24 01/20/24 01/20/24 Range/Units 20:06 06:03 06:09 Chloride 109 H (98-107) mmol/L BUN 26 H (9-20) mg/dL Glucose 125 H (74-99) mg/dL POC Glucose (mg/dL) 184 H 126 H (70-110) mg/dL 01/20/24 Range/Units 11:19 Chloride (98-107) mmol/L BUN (9-20) mg/dL Glucose (74-99) mg/dL POC Glucose (mg/dL) 296 H (70-110) mg/dL Microbiology - Last 24 Hours (Table) 01/18/24 06:35 Blood Culture - Preliminary Blood 01/17/24 05:44 Blood Culture - Preliminary Blood 01/14/24 18:48 Blood Culture - Final Blood 01/14/24 18:50 Blood Culture - Final Blood 01/16/24 15:18 Blood Culture - Preliminary Blood Assessment and Plan (1) Influenza A Current Visit: Yes Status: Acute Code(s): J10.1 - FLU DUE TO OTH IDENT INFLUENZA VIRUS W OTH RESP MANIFEST SNOMED Code(s): 985561656 (2) Urinary tract infection Current Visit: Yes Status: Acute Code(s): N39.0 - URINARY TRACT INFECTION, SITE NOT SPECIFIED SNOMED Code(s): 76572305 (3) Osteomyelitis of left foot Current Visit: No Status: Acute Code(s): M86.9 - OSTEOMYELITIS, UNSPECIFIED SNOMED Code(s): 9419306796235321 (4) Candidemia Current Visit: Yes Status: Acute Code(s): B37.7 - CANDIDAL SEPSIS SNOMED Code(s): 342596367 (5) Infection due to ESBL-producing Escherichia coli Current Visit: Yes Status: Acute Code(s): A49.8 - OTHER BACTERIAL INFECTIONS OF UNSPECIFIED SITE; Z16.12 - EXTENDED SPECTRUM BETA LACTAMASE (ESBL) RESISTANCE SNOMED Code(s): 806478652 Plan: 1patient presented to hospital abdominal pain in this patient who did have a positive UA both CT ultrasound has been suggestive of cystitis to be the likely etiology of his abdominal pain has no other acute process was seen on the CT abdominal pelvis and the patient did have significant tenderness on abdominal examination likely from enteric gram-negative pathogen. 2patient with a left heel osteomyelitis with outpatient culture positive for MRSA for which the patient has [facility], currently on vancomycin pharmacy to dose to continue, patient noticed to have elevated Vanco random and does need to be cut back to keep the trough around 15 and will monitor his creatinine closely which is currently 1.3 3--continue local wound care to the left heel per the wound care and keep the area of the pressure 4--patient with a positive blood culture with Donna albicans high clinical suspicion for related to the PICC line, PICC line has been discontinued blood cultures has been repeated which are currently pending, patient to continue with the Diflucan, hopefully will be able to finish therapy with oral Diflucan 6urine cultures are growing ESBL E. coli, patient to continue with meropenem 1 g every 8 hours and hopefully will complete treatment for the UTI by Monday so we can avoid placement of another line at the bedside questions answered Dictation was produced using [employer] dictation software. please excuse any grammatical, word or spelling errors. Time with Patient: Less than 30
[2024-01-20 16:27] LABS: Glucose,Whole Blood 55 mg/dL (70-110)
[2024-01-20 17:07] LABS: Glucose,Whole Blood 109 mg/dL (70-110)
--- NOTE | 2024-01-20 19:19 | PN ---
PROGRESS NOTE DATE OF SERVICE: 01/20/2024 SUBJECTIVE: This is a 73-year-old gentleman, who was admitted with multiple complex medical issues including respiratory failure, influenza A, also had UTI with ESBL, and has Donna bacteremia. The Donna was noted with Donna albicans, in the urine cultures, Escherichia coli and Proteus mirabilis. The most recent blood cultures reported as negative. PAST MEDICAL HISTORY: Reviewed. REVIEW OF SYSTEMS: A 14-point review is negative except as mentioned above. CURRENT MEDICATIONS: Reviewed, include DuoNeb, Radiant. Doses and rest of medications noted. PHYSICAL EXAMINATION: VITAL SIGNS: Pulse is 61, blood pressure n, respirations 18. HEENT: Conjunctivae normal. NECK: No jugular venous distention. CARDIOVASCULAR: S1, S2. RESPIRATIONS: Few scattered rhonchi. ABDOMEN: Soft. NERVOUS SYSTEM: Diffusely weak. LABORATORY DATA: Noted. WBC 6.1 and ESR is 91. ASSESSMENT: 1. Acute influenza A with acute hypoxic respiratory failure present on admission. 2. Donna bacteremia and candidemia. PICC line removed. 3. Urinary tract infection with extended-spectrum beta-lactamases, on meropenem. 4. Left foot cellulitis. 5. Diabetes mellitus, type 2. 6. Hypothyroidism. 7. Coronary artery disease, coronary artery bypass graft. 8. Multiple complex medical issues. RECOMMENDATIONS AND DISCUSSION: I recommend to continue current management and treatment, otherwise, at this time, I would also recommend a 2D echo with Doppler. Continue the antibiotics. Repeat cultures negative as mentioned earlier. The PICC line cultures are also showing no growth at this time. Prognosis guarded. Further recommendations to follow. See orders for details. We will repeat labs. MMODL / IJN: [id number] / MTDD
[2024-01-20 21:32] LABS: Glucose,Whole Blood 357 mg/dL (70-110)
--- NOTE | 2024-01-21 02:33 | CA ---
Transthoracic Echo Report Name: Colton Ross Age: 73 Gender: M : 1950 Exam Date: 01/20/2024 16:45 Exam Location: [facility] Ht (in): 70 Wt (lb): 170 Ordering Physician: Carter Ibarra MD Attending/Referring Phys: Combination Building Inspector Terell Ashley RDCS Procedure CPT: Indications: candidemia Cardiac Hx: Technical Quality: Contrast 1: Definity Total Dose (mL): 2 Contrast 2: Total Dose (mL): MEASUREMENTS (Male / Female) Normal Values 2D ECHO LV Diastolic Diameter PLAX 5.5 cm 4.2 - 5.9 / 3.9 - 5.3 cm LV Systolic Diameter PLAX 4.0 cm IVS Diastolic Thickness 1.0 cm 0.6 - 1.0 / 0.6 - 0.9 cm LVPW Diastolic Thickness 0.9 cm 0.6 - 1.0 / 0.6 - 0.9 cm LV Relative Wall Thickness 0.3 LVOT Diameter 2.0 cm Aortic Root Diameter 3.5 cm LA Systolic Diameter LX 4.2 cm 3.0 - 4.0 / 2.7 - 3.8 cm DOPPLER AV Peak Velocity 101.6 cm/s AV Peak Gradient 4.1 mmHg AV Mean Velocity 69.9 cm/s AV Mean Gradient 2.2 mmHg AV Velocity Time Integral 23.5 cm LVOT Peak Velocity 77.8 cm/s LVOT Peak Gradient 2.4 mmHg LVOT Velocity Time Integral 16.5 cm LVOT Stroke Volume 51.7 cm??? LVOT Stroke Volume Index 26.5 ml/m??? AV Area Cont Eq vti 2.2 cm??? AV Area Cont Eq pk 2.4 cm??? Mitral E Point Velocity 91.4 cm/s Mitral A Point Velocity 105.0 cm/s Mitral E to A Ratio 0.9 MV Deceleration Time 337.1 ms PV Peak Velocity 102.5 cm/s PV Peak Gradient 4.2 mmHg FINDINGS Left Ventricle Left ventricular ejection fraction is estimated at 50 %. Normal left ventricular wall motion. No obvious regional wall motion abnormalities. Mild anterolateral, inferolateral hypokinesis Right Ventricle Normal right ventricular size. Unable to estimate the right ventricular systolic pressure. Right Atrium Normal right atrial size. Left Atrium Mildly increased left atrial diameter. Mitral Valve Trace to mild mitral regurgitation. Aortic Valve No aortic regurgitation. Tricuspid Valve Trace tricuspid regurgitation. Pulmonic Valve No pulmonic regurgitation. Pericardium No pericardial effusion. Aorta Normal size aortic root. CONCLUSIONS Left ventricular ejection fraction 50% with anterolateral, inferolateral hypokinesis Trace to mild mitral regurgitation Trace tricuspid regurgitation No pericardial effusion Previewed by: Dr. Harjinder Tony DO (Electronically Signed) Final Date: 21 January 2024 02:32
[2024-01-21 06:26] LABS: Glucose,Whole Blood 51 mg/dL (70-110)
[2024-01-21 06:34] LABS: ALT 26 U/L (4-49); AST 29 U/L (17-59); African American GFR (CKD) 76 (>60 ml/min/1.73 sqM); Albumin 3.1 g/dL (3.5-5.0); Albumin/Globulin Ratio 0.8; Alkaline Phosphatase 100 U/L (38-126); Anion Gap 5 mmol/L; Blood Urea Nitrogen 27 mg/dL (9-20); Calcium 8.8 mg/dL (8.4-10.2); Carbon Dioxide 24 mmol/L (22-30); Chloride 109 mmol/L (98-107); Globulin 3.9 g/dL; Glucose 63 mg/dL (74-99); Non-African American GFR(CKD) 66 (>60 ml/min/1.73 sqM); Potassium 4.3 mmol/L (3.5-5.1); Sodium 138 mmol/L (137-145); Total Bilirubin 0.3 mg/dL (0.2-1.3)
[2024-01-21 06:40] LABS: Vancomycin,Random 18.8 ug/mL
[2024-01-21 06:48] LABS: Glucose,Whole Blood 64 mg/dL (70-110)
[2024-01-21 07:02] LABS: Glucose,Whole Blood 102 mg/dL (70-110)
[2024-01-21 10:08] LABS: Basophils # (A) 0.04 X 10*3/uL (0.00-0.10); Basophils % (A) 0.7 %; Eosinophils # (A) 0.36 X 10*3/uL (0.04-0.35); Eosinophils % (A) 5.9 %; HCT 37.5 % (39.6-50.0); HGB 11.8 g/dL (13.0-17.0); Lymphocytes # (A) 1.44 X 10*3/uL (0.90-5.00); Lymphocytes % (A) 23.4 %; MCH 29.1 pg (27.0-32.0); MCHC 31.5 g/dL (32.0-37.0); MCV 92.6 FL (80.0-97.0); Mean Platelet Volume 9.8 FL (9.5-12.2); Monocytes # (A) 0.75 X 10*3/uL (0.20-1.00); Monocytes % (A) 12.2 %; NRBC Per 100 WBC 0 X 10*3/uL (0.00-0.01); Neutrophils % (A) 56.8 %; Platelet Count 353 X 10*3/uL (140-440); RBC 4.05 X 10*6/uL (4.40-5.60); RDW 12.7 % (11.5-14.5); WBC 6.15 X 10*3/uL (4.50-10.00)
[2024-01-21] MEDS: VANCOMYCIN 1,250 MG in SODIUM CHLORIDE 0.9% 250 ML IVPB ONE (11:11)
[2024-01-21 11:33] LABS: Glucose,Whole Blood 130 mg/dL (70-110)
--- NOTE | 2024-01-21 16:36 | P.PN ---
Subjective Progress Note Date: 01/21/24 Principal diagnosis: Reason for follow-up is left heel osteomyelitis and UTI Patient is a 73-year-old male with a past medical history significant for diabetes mellitus hypertension hyperlipidemia [place] patient did have a chronic nonhealing wound to the left heel area with underlying osteomyelitis culture positive for Pseudomonas and MRSA, presented to hospital with abdominal pain has been diagnosed with cystitis. On today's evaluation that is 01/21/2024, patient has been afebrile, patient is breathing comfortably and is currently on room air, patient denies having any significant cough no chest pain shortness of breath, patient denies nausea vomiting or diarrhea and no abdominal pain, he did have a mild pain to the left heel area. No new labs has been repeated today blood culture repeat has been negative Objective - Vital Signs Vital signs: Vital Signs Temp 97.8 F 01/21/24 13:48 Pulse 59 L 01/21/24 13:48 Resp 17 01/21/24 13:48 BP 128/68 01/21/24 13:48 Pulse Ox 97 01/21/24 13:48 FiO2 Intake & Output 01/20/24 01/21/24 01/21/24 18:59 06:59 18:59 Output Total 2500 1900 Balance -2500 -1900 Output: Urine 2500 1900 Other: Voiding Method Incontinent Incontinent Incontinent External Catheter - Exam GENERAL DESCRIPTION: An elderly male lying in bed in no distress RESPIRATORY SYSTEM: Unlabored breathing , decreased breath sounds at bases HEART: S1 S2 regular rate and rhythm , ABDOMEN: Soft , no tenderness EXTREMITIES: Left heel is currently dressed - Labs CBC & Chem 7: 01/21/24 05:28 01/21/24 05:28 Labs: Abnormal Lab Results - Last 24 Hours (Table) 01/20/24 01/21/24 01/21/24 Range/Units 21:29 05:28 05:28 RBC 4.05 L (4.40-5.60) X 10*6/uL Hgb 11.8 L (13.0-17.0) g/dL Hct 37.5 L (39.6-50.0) % MCHC 31.5 L (32.0-37.0) g/dL Immature Gran # 0.06 H (0.00-0.04) X 10*3/uL Eosinophils # 0.36 H (0.04-0.35) X 10*3/uL Chloride 109 H (98-107) mmol/L BUN 27 H (9-20) mg/dL Glucose 63 L (74-99) mg/dL POC Glucose (mg/dL) 357 H (70-110) mg/dL Albumin 3.1 L (3.5-5.0) g/dL 01/21/24 01/21/24 01/21/24 Range/Units 06:24 06:46 11:31 RBC (4.40-5.60) X 10*6/uL Hgb (13.0-17.0) g/dL Hct (39.6-50.0) % MCHC (32.0-37.0) g/dL Immature Gran # (0.00-0.04) X 10*3/uL Eosinophils # (0.04-0.35) X 10*3/uL Chloride (98-107) mmol/L BUN (9-20) mg/dL Glucose (74-99) mg/dL POC Glucose (mg/dL) 51 L 64 L 130 H (70-110) mg/dL Albumin (3.5-5.0) g/dL Microbiology - Last 24 Hours (Table) 01/18/24 06:35 Blood Culture - Preliminary Blood 01/17/24 05:44 Blood Culture - Preliminary Blood Assessment and Plan (1) Influenza A Current Visit: Yes Status: Acute Code(s): J10.1 - FLU DUE TO OTH IDENT INFLUENZA VIRUS W OTH RESP MANIFEST SNOMED Code(s): 011607564 (2) Urinary tract infection Current Visit: Yes Status: Acute Code(s): N39.0 - URINARY TRACT INFECTION, SITE NOT SPECIFIED SNOMED Code(s): 10075354 (3) Osteomyelitis of left foot Current Visit: No Status: Acute Code(s): M86.9 - OSTEOMYELITIS, UNSPECIFIED SNOMED Code(s): 7194752581657345 (4) Candidemia Current Visit: Yes Status: Acute Code(s): B37.7 - CANDIDAL SEPSIS SNOMED Code(s): 112568163 (5) Infection due to ESBL-producing Escherichia coli Current Visit: Yes Status: Acute Code(s): A49.8 - OTHER BACTERIAL INFECTIONS OF UNSPECIFIED SITE; Z16.12 - EXTENDED SPECTRUM BETA LACTAMASE (ESBL) RESISTANCE SNOMED Code(s): 487814655 Plan: 1patient presented to hospital abdominal pain in this patient who did have a positive UA both CT ultrasound has been suggestive of cystitis to be the likely etiology of his abdominal pain has no other acute process was seen on the CT abdominal pelvis and the patient did have significant tenderness on abdominal examination likely from enteric gram-negative pathogen. 2patient with a left heel osteomyelitis with outpatient culture positive for MRSA for which the patient has been receiving [facility] the local [facility], currently on vancomycin pharmacy to dose to continue, however the patient seem to have completed 6-week course of IV vancomycin/daptomycin and recommend to discontinue vancomycin on discharge 3--continue local wound care to the left heel per the wound care and keep the area of the pressure 4--patient with a positive blood culture with Donna albicans high clinical suspicion for related to the PICC line, PICC line has been discontinued blood c ultures has been repeated which are currently pending, patient to continue with the Diflucan, hopefully will be able to finish therapy with oral Diflucan x 10 days on discharge 6urine cultures are growing ESBL E. coli, patient to continue with meropenem 1 g every 8 hours patient has received enough meropenem for his UTI and can be discontinued on discharge Dictation was produced using [employer] dictation software. please excuse any grammatical, word or spelling errors. Time with Patient: Less than 30
[2024-01-21 16:59] LABS: Glucose,Whole Blood 196 mg/dL (70-110)
[2024-01-21] MEDS: THIAMINE 100 MG TAB PO SCH (17:11)
[2024-01-21 20:14] LABS: Glucose,Whole Blood 288 mg/dL (70-110)
[2024-01-21 20:43] LABS: Amorphous Sediment,Urine Occasional /hpf; Bacteria,Urine Occasional /hpf; RBC,Urine >182 /hpf (0-5); WBC,Urine >182 /hpf (0-5)
[2024-01-21 20:44] LABS: Appearance,Urine Turbid (Clear); Color,Urine Light Red
--- NOTE | 2024-01-21 20:49 | P.GSCN ---
History of Present Illness Consult date: 01/21/24 History of present illness: 73 yo male in the hospital several days. He came in for for abdominal pain He has been found to have a uti. We have been asked to see for hematuria. the patient has had a normal us and ct scan during this admission. Blood cultures are pending. Urine culture grew E. coli and Proteus. The patient states that he had blood one time however I do not believe his history is reliable. Review of Systems ROS unobtainable: due to mental status All systems: negative - Constitutional Denies fever, Denies weight loss - EENT Eyes: denies blurred vision Ears, nose, mouth and throat: Denies dysphagia - Cardiovascular Denies chest pain, Denies shortness of breath - Respiratory Denies cough, Denies 7 - Gastrointestinal Reports as per HPI - Genitourinary Denies dysuria, Denies hematuria - Integumentary Denies rash, Denies unusual bruising - Neurological Denies headaches, Denies syncope - Hematologic/Lymphatic Denies easy bleeding, Denies easy bruising Past Medical History Past Medical History: Coronary Artery Disease (CAD), Diabetes Mellitus, GERD/Reflux, Hyperlipidemia, Hypertension, Myocardial Infarction (DC), Thyroid Disorder Additional Past Medical History / Comment(s): neuropathy, diabetic coma in 2000 and pt's sister has had legal guardianship since. 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-MRSA; 09/25/23 ESBL MDRO Source:: Left Heel-MRSA; Blood-ESBL Past Surgical History: Appendectomy, Coronary Bypass/CABG, Heart Catheterization With Stent Additional Past Surgical History / Comment(s): Sister relays, "He had peripheral artery surgery too." Past Anesthesia/Blood Transfusion Reactions: No Reported Reaction Date of Last Stent Placement:: unknown Past Psychological History: Depression, Panic Disorder Smoking Status: Former smoker Past Alcohol Use History: Daily Past Drug Use History: Marijuana - Past Family History Father Family Medical History: Congestive Heart Failure (CHF) Mother Additional Family Medical History / Comment(s): of old age. Medications and Allergies Home Medications Medication Instructions Recorded Confirmed Type Aspirin [Kay Aspirin EC] 81 mg PO DAILY@169903/13/19 01/13/24 History Ferrous Sulfate [Iron (65 MG 325 mg PO DAILY@1700 03/13/19 01/13/24 History Elemental)] Isosorbide Mononitrate ER [Imdur] 30 mg PO DAILY@0800 03/13/19 01/13/24 History Pantoprazole Sodium [Protonix] 40 mg PO DAILY@0600 03/13/19 01/13/24 History Ammonium Lactate Cream [Lac-Hydrin 1 applic TOPICAL BID PRN 04/13/23 01/13/24 History 12% Cream] Atorvastatin [Lipitor] 80 mg PO HS 04/13/23 01/13/24 History Empagliflozin [Jardiance] 25 mg PO DAILY@0800 04/13/23 01/13/24 History Escitalopram [Lexapro] 10 mg PO DAILY@0800 04/13/23 01/13/24 History Acetaminophen [Tylenol 8 Hour] 650 mg PO Q4HR PRN 09/24/23 01/13/24 History Glucerna Shake 237 ml PO DAILY@1500 09/24/23 01/13/24 History Liquacel 30 ml PO BID@0800,1700 09/24/23 01/13/24 History Magnesium Hydroxide [Milk of 7,200 mg PO Q48H PRN 09/24/23 01/13/24 History Magnesia Concentrate] Metoprolol Tartrate [Lopressor] 50 mg PO BID@0800,1700 09/24/23 01/13/24 History Na Phos,M-B/Na Phos,Di-Ba [Fleet 133 ml RECTAL DAILY PRN 09/24/23 01/13/24 History Adult] bisacodyL [Dulcolax] 10 mg RECTAL DAILY PRN 09/24/23 01/13/24 History HYDROcodone/APAP 7.5-325MG [[place] 1 tab PO Q6H PRN #4 tab 10/05/23 01/13/24 Rx 7.5-325] 0.9 % Sodium Chloride [Sodium 10 ml IV BID 12/19/23 01/13/24 History Chloride Flush] Cholecalciferol [Vitamin D3 (25 25 mcg PO DAILY@0800 12/19/23 01/13/24 History Mcg = 1000 Iu)] DAPTOmycin [Cubicin] 500 mg IV DAILY@0800 12/19/23 01/13/24 History Famotidine [Pepcid] 20 mg PO DAILY@0800 12/19/23 01/13/24 History INSULIN ASPART (NovoLOG) [NovoLOG 3 unit SQ TID@0800,1200,1700 12/19/23 01/13/24 History (formulary)] INSULIN ASPART (NovoLOG) [NovoLOG See Protocol SQ ACHS 12/19/23 01/13/24 History (formulary)] Insulin Glargine [Lantus Vial] 26 unit SQ HS 12/19/23 01/13/24 History Levothyroxine Sodium [Synthroid] 150 mcg PO DAILY@0600 12/19/23 01/13/24 History Phytoplex Z-Guard External Paste 1 applic TOPICAL TUTHSA 12/19/23 01/13/24 History 57-17% Tamsulosin HCl [Flomax] 0.4 mg PO HS 12/19/23 01/13/24 History metroNIDAZOLE [Flagyl] 500 mg PO TID@0600,1400,2200 12/19/23 01/13/24 History Dulaglutide [Trulicity] 1.5 mg SQ TH 01/13/24 01/13/24 History Gabapentin [Neurontin] 400 mg PO HS 01/13/24 01/13/24 History Ondansetron [Zofran] 4 mg PO Q8H PRN 01/13/24 01/13/24 History amLODIPine [Norvasc] 5 mg PO BID@0800,2000 01/13/24 01/13/24 History Allergies Allergy/AdvReac Type Severity Reaction Status Date / Time No Known Allergies Allergy Verified 01/13/24 12:28 Surgical - Exam Vital Signs Temp Pulse Resp BP Pulse Ox 98.6 F 93 19 127/93 95 01/12/24 22:12 01/12/24 22:12 01/12/24 22:12 01/12/24 22:12 01/12/24 22:12 - General well developed, well nourished, no distress - Eyes normal ocular movement, no icteric - ENT no hearing loss, no congestion - Neck no masses, trachea midline - Respiratory normal respiratory effort, clear to auscultation - Abdomen Abdomen: soft, non tender, no guarding, no rigid, no rebound - Integumentary no rash, no abnormal pigmentation - Neurologic no disoriented, no combative - Psychiatric oriented to time, oriented to person, oriented to place, speech is normal, memory intact Results - Labs 01/21/24 05:28 01/21/24 05:28 Abnormal Lab Results - Last 24 Hours (Table) 01/20/24 01/21/24 01/21/24 Range/Units 21:29 05:28 05:28 RBC 4.05 L (4.40-5.60) X 10*6/uL Hgb 11.8 L (13.0-17.0) g/dL Hct 37.5 L (39.6-50.0) % MCHC 31.5 L (32.0-37.0) g/dL Immature Gran # 0.06 H (0.00-0.04) X 10*3/uL Eosinophils # 0.36 H (0.04-0.35) X 10*3/uL Chloride 109 H (98-107) mmol/L BUN 27 H (9-20) mg/dL Glucose 63 L (74-99) mg/dL POC Glucose (mg/dL) 357 H (70-110) mg/dL Albumin 3.1 L (3.5-5.0) g/dL 01/21/24 01/21/24 01/21/24 Range/Units 06:24 06:46 11:31 RBC (4.40-5.60) X 10*6/uL Hgb (13.0-17.0) g/dL Hct (39.6-50.0) % MCHC (32.0-37.0) g/dL Immature Gran # (0.00-0.04) X 10*3/uL Eosinophils # (0.04-0.35) X 10*3/uL Chloride (98-107) mmol/L BUN (9-20) mg/dL Glucose (74-99) mg/dL POC Glucose (mg/dL) 51 L 64 L 130 H (70-110) mg/dL Albumin (3.5-5.0) g/dL 01/21/24 Range/Units 16:58 RBC (4.40-5.60) X 10*6/uL Hgb (13.0-17.0) g/dL Hct (39.6-50.0) % MCHC (32.0-37.0) g/dL Immature Gran # (0.00-0.04) X 10*3/uL Eosinophils # (0.04-0.35) X 10*3/uL Chloride (98-107) mmol/L BUN (9-20) mg/dL Glucose (74-99) mg/dL POC Glucose (mg/dL) 196 H (70-110) mg/dL Albumin (3.5-5.0) g/dL Microbiology - Last 24 Hours (Table) 01/18/24 06:35 Blood Culture - Preliminary Blood Diabetes panel 01/21/24 Range/Units 05:28 Sodium 138 (137-145) mmol/L Potassium 4.3 (3.5-5.1) mmol/L Chloride 109 H (98-107) mmol/L Carbon Dioxide 24 (22-30) mmol/L BUN 27 H (9-20) mg/dL Creatinine 1.11 (0.66-1.25) mg/dL Glucose 63 L (74-99) mg/dL Calcium 8.8 (8.4-10.2) mg/dL AST 29 (17-59) U/L ALT 26 (4-49) U/L Alkaline Phosphatase 100 (38-126) U/L Total Protein 7.0 (6.3-8.2) g/dL Albumin 3.1 L (3.5-5.0) g/dL Calcium panel 01/21/24 Range/Units 05:28 Calcium 8.8 (8.4-10.2) mg/dL Albumin 3.1 L (3.5-5.0) g/dL Pituitary panel 01/21/24 Range/Units 05:28 Sodium 138 (137-145) mmol/L Potassium 4.3 (3.5-5.1) mmol/L Chloride 109 H (98-107) mmol/L Carbon Dioxide 24 (22-30) mmol/L BUN 27 H (9-20) mg/dL Creatinine 1.11 (0.66-1.25) mg/dL Glucose 63 L (74-99) mg/dL Calcium 8.8 (8.4-10.2) mg/dL Adrenal panel 01/21/24 Range/Units 05:28 Sodium 138 (137-145) mmol/L Potassium 4.3 (3.5-5.1) mmol/L Chloride 109 H (98-107) mmol/L Carbon Dioxide 24 (22-30) mmol/L BUN 27 H (9-20) mg/dL Creatinine 1.11 (0.66-1.25) mg/dL Glucose 63 L (74-99) mg/dL Calcium 8.8 (8.4-10.2) mg/dL Total Bilirubin 0.3 (0.2-1.3) mg/dL AST 29 (17-59) U/L ALT 26 (4-49) U/L Alkaline Phosphatase 100 (38-126) U/L Total Protein 7.0 (6.3-8.2) g/dL Albumin 3.1 L (3.5-5.0) g/dL - Imaging CT scan - abdomen: report reviewed, image reviewed CT scan - pelvis: report reviewed, image reviewed US - kidney/bladder: report reviewed, image reviewed Assessment and Plan Assessment: Impression: Hematuria secondary to urinary tract infection, hemorrhagic cystitis. Recommendations: I have no further urologic recommendations other than treating him with antibiotics. A follow-up either with our office or with his primary care to make sure the urine clears would be appropriate
[2024-01-21] MEDS: INSULIN DETEMIR (LEVEMIR) 100 UNIT/ML SYR SQ SCH (20:53)
[2024-01-21] MEDS: ZINC OXIDE PASTE (Z-GUARD) 1 APPLIC TOPICAL SCH (21:05)
[2024-01-21] MEDS: NYSTATIN 100,000 UNIT/GM POWD 15 GM TOPICAL SCH (21:05)
--- NOTE | 2024-01-22 00:01 | PN ---
PROGRESS NOTE DATE OF SERVICE: 01/21/2024 SUBJECTIVE: This is a 73-year-old gentleman, who was admitted with multiple complex medical issues including respiratory failure, also had ESBL UTI and Donna bacteremia. Most recent cultures are negative. The patient also underwent a 2D echocardiogram, which was read today, ejection fraction 50%, some inferolateral hypokinesia, otherwise trace valvular abnormalities. PAST MEDICAL HISTORY: Reviewed. REVIEW OF SYSTEMS: A 14-point review of systems is negative except as mentioned above. MEDICATIONS: Current medications reviewed include [place], dose and rest of medications noted. PHYSICAL EXAMINATION: VITAL SIGNS: Pulse 59, blood pressure 120/60, and respirations 17. HEENT: Conjunctivae normal. NECK: No JVD. CARDIOVASCULAR: S1 and S2. RESPIRATIONS: Breath sounds diminished at the bases. Few scattered rhonchi and crackles. ABDOMEN: Soft. NERVOUS SYSTEMS: Diffusely weak. LABORATORY DATA: Reviewed. Glucose is 51. The patient also has hypoglycemia. ASSESSMENT: 1. Acute influenza A with acute hypoxic respiratory failure, present on admission. 2. Donna bacteremia and candidemia. PICC line removed. 3. Urinary tract infection with ESBL, on meropenem. 4. Hypoglycemia with uncontrolled diabetes mellitus type 2. 5. Left foot cellulitis. 6. Hypothyroidism. 7. Coronary artery disease, coronary artery bypass graft. 8. Multiple complex medical issues. RECOMMENDATIONS: Recommend to continue current management and treatment. 2D echo was reviewed. Otherwise, I would recommend repeat labs. Continue to follow the cultures. Continue the antibiotics and antifungals. Prognosis guarded because of multiple complex medical issues. Further recommendations to follow. See orders for details. I would also recommend reduce the dose of insulins also. MMODL / IJN: [id number] / MTDD
[2024-01-22 05:56] LABS: Glucose,Whole Blood 80 mg/dL (70-110)
[2024-01-22 08:38] LABS: Basophils # (A) 0.04 X 10*3/uL (0.00-0.10); Basophils % (A) 0.6 %; Eosinophils # (A) 0.29 X 10*3/uL (0.04-0.35); Eosinophils % (A) 4.7 %; HCT 38.8 % (39.6-50.0); HGB 12.4 g/dL (13.0-17.0); Lymphocytes # (A) 1.34 X 10*3/uL (0.90-5.00); Lymphocytes % (A) 21.8 %; MCH 29.8 pg (27.0-32.0); MCV 93.3 FL (80.0-97.0); Mean Platelet Volume 10.1 FL (9.5-12.2); Monocytes # (A) 0.78 X 10*3/uL (0.20-1.00); Monocytes % (A) 12.7 %; NRBC Per 100 WBC 0 X 10*3/uL (0.00-0.01); Neutrophils # (A) 3.64 X 10*3/uL (1.80-7.70); Neutrophils % (A) 59.1 %; Platelet Count 344 X 10*3/uL (140-440); RBC 4.16 X 10*6/uL (4.40-5.60); RDW 12.8 % (11.5-14.5); WBC 6.16 X 10*3/uL (4.50-10.00)
[2024-01-22 08:43] LABS: ALT 24 U/L (10-49); AST 22 U/L (14-35); Albumin 3.2 g/dL (3.8-4.9); Albumin/Globulin Ratio 0.82 Ratio (1.60-3.17); Alkaline Phosphatase 99 U/L (41-126); Blood Urea Nitrogen 24.6 mg/dL (9.0-27.0); Calcium 9.1 mg/dL (8.7-10.3); Carbon Dioxide 24.9 mmol/L (21.6-31.8); Chloride 104 mmol/L (96-109); Globulin 3.9 g/dL (1.6-3.3); Glucose 86 mg/dL (70-110); Potassium 4.7 mmol/L (3.5-5.5); Sodium 138 mmol/L (135-145); Total Bilirubin <0.2 mg/dL (0.3-1.2); Total Protein 7.1 g/dL (6.2-8.2)
[2024-01-22 11:54] LABS: Glucose,Whole Blood 191 mg/dL (70-110)
[2024-01-22] MEDS: FOLIC ACID 1 MG TAB PO SCH (12:39)
[2024-01-22] MEDS: MULTIVITAMINS, THERA 1 EACH TAB PO SCH (12:39)
--- NOTE | 2024-01-22 13:36 | PN ---
PROGRESS NOTE DATE OF SERVICE: 01/22/2024 This is a 73-year-old gentleman, admitted with multiple complex medical issues, including influenza A, also had Donna bacteremia. The patient is on antibiotics and antibacterial. Multiple consultants are following the patient closely. The patient has hematuria secondary to UTI and hemorrhagic cystitis. No chest pain. No palpitations. No fever. A 2D echo with Doppler was reported, basically negative except inferolateral hypokinesis. PHYSICAL EXAMINATION: VITAL SIGNS: Pulse 56, blood pressure 138/70, respirations 19. CHEST: Few scattered rhonchi and crackles. ABDOMEN: Soft. NERVOUS SYSTEM: Nonfocal. LABORATORY DATA: Reviewed. ASSESSMENT: 1. Acute influenza A with acute hypoxic respiratory failure, present on admission. 2. Donna bacteremia and candidemia. PICC line removed. 3. Urinary tract infection with ESBL, on meropenem. 4. Hypoglycemia with uncontrolled diabetes mellitus type 2. 5. Left foot cellulitis. 6. Hypothyroidism. 7. CAD, CABG. 8. Inferolateral hypokinesis in the 2D echo. 9. Multiple complex medical issues. RECOMMENDATIONS: Recommend to continue current management. Continue symptomatic treatment. The patient has history of myocardial infarction and CAD. Continue rest of medications. Continue the antibiotics and antifungals and closely follow with multiple consultants. Possible ECF rehab once the patient is stabilized. I will repeat the labs tomorrow. MMODL / IJN: [id number] /
[2024-01-22 15:45] VITALS: RESP 18
[2024-01-22 17:07] LABS: Glucose,Whole Blood 242 mg/dL (70-110)
--- NOTE | 2024-01-22 17:46 | P.PN ---
Subjective Progress Note Date: 01/22/24 Principal diagnosis: Reason for follow-up is left heel osteomyelitis and UTI Patient is a 73-year-old male with a past medical history significant for diabetes mellitus hypertension hyperlipidemia MS patient did have a chronic nonhealing wound to the left heel area with underlying osteomyelitis culture positive for Pseudomonas and MRSA, presented to hospital with abdominal pain has been diagnosed with cystitis. On today's evaluation that is 01/22/2024,the patient denies any fever or any chills, patient is breathing comfortably on room air, the patient denies chest pain shortness of breath and no significant cough, patient denies abdominal pain, no nausea vomiting or diarrhea. Feeling better no new symptoms. Patient white count is 6.16 creatinine is 1.2 blood culture repeat has been negative Objective - Vital Signs Vital signs: Vital Signs Temp 97.4 F L 01/22/24 07:34 Pulse 56 L 01/22/24 08:00 Resp 19 01/22/24 08:00 BP 138/70 01/22/24 07:34 Pulse Ox 95 01/22/24 09:02 FiO2 Intake & Output 01/21/24 01/22/24 01/22/24 18:59 06:59 18:59 Output Total 3300 1900 1100 Balance -3300 -1900 -1100 Output: Urine 3300 1900 400 Stool 700 Other: Voiding Method Incontinent Incontinent Incontinent External Catheter External Catheter # Voids 1 # Bowel Movements 1 - Exam GENERAL DESCRIPTION: An elderly male lying in bed in no distress RESPIRATORY SYSTEM: Unlabored breathing , decreased breath sounds at bases HEART: S1 S2 regular rate and rhythm , ABDOMEN: Soft , no tenderness EXTREMITIES: Left heel is currently dressed - Labs CBC & Chem 7: 01/22/24 06:16 01/22/24 06:16 Labs: Abnormal Lab Results - Last 24 Hours (Table) 01/21/24 01/21/24 01/21/24 Range/Units 16:58 20:13 20:17 RBC (4.40-5.60) X 10*6/uL Hgb (13.0-17.0) g/dL Hct (39.6-50.0) % Immature Gran # (0.00-0.04) X 10*3/uL BUN/Creatinine Ratio (12.00-20.00) Ratio POC Glucose (mg/dL) 196 H 288 H (70-110) mg/dL Total Bilirubin (0.3-1.2) mg/dL Albumin (3.8-4.9) g/dL Globulin (1.6-3.3) g/dL Albumin/Globulin Ratio (1.60-3.17) Ratio Urine RBC >182 H (0-5) /hpf Urine WBC >182 H (0-5) /hpf Urine WBC Clumps Few H (None) /hpf Amorphous Sediment Occasional H (None) /hpf Urine Bacteria Occasional H (None) /hpf 01/22/24 01/22/24 01/22/24 Range/Units 06:16 06:16 11:50 RBC 4.16 L (4.40-5.60) X 10*6/uL Hgb 12.4 L (13.0-17.0) g/dL Hct 38.8 L (39.6-50.0) % Immature Gran # 0.07 H (0.00-0.04) X 10*3/uL BUN/Creatinine Ratio 20.50 H (12.00-20.00) Ratio POC Glucose (mg/dL) 191 H (70-110) mg/dL Total Bilirubin <0.2 L (0.3-1.2) mg/dL Albumin 3.2 L (3.8-4.9) g/dL Globulin 3.9 H (1.6-3.3) g/dL Albumin/Globulin Ratio 0.82 L (1.60-3.17) Ratio Urine RBC (0-5) /hpf Urine WBC (0-5) /hpf Urine WBC Clumps (None) /hpf Amorphous Sediment (None) /hpf Urine Bacteria (None) /hpf Microbiology - Last 24 Hours (Table) 01/17/24 05:44 Blood Culture - Final Blood 01/16/24 15:18 Blood Culture - Final Blood 01/18/24 06:35 Blood Culture - Preliminary Blood Assessment and Plan (1) Influenza A Current Visit: Yes Status: Acute Code(s): J10.1 - FLU DUE TO OTH IDENT INFLUENZA VIRUS W OTH RESP MANIFEST SNOMED Code(s): 590800828 (2) Urinary tract infection Current Visit: Yes Status: Acute Code(s): N39.0 - URINARY TRACT INFECTION, SITE NOT SPECIFIED SNOMED Code(s): 33202037 (3) Osteomyelitis of left foot Current Visit: No Status: Acute Code(s): M86.9 - OSTEOMYELITIS, UNSPECIFIED SNOMED Code(s): 5310636855107938 (4) Candidemia Current Visit: Yes Status: Acute Code(s): B37.7 - CANDIDAL SEPSIS SNOMED Code(s): 778632522 (5) Infection due to ESBL-producing Escherichia coli Current Visit: Yes Status: Acute Code(s): A49.8 - OTHER BACTERIAL INFECTIONS OF UNSPECIFIED SITE; Z16.12 - EXTENDED SPECTRUM BETA LACTAMASE (ESBL) RESISTANCE SNOMED Code(s): 682848706 Plan: 1patient presented to hospital abdominal pain in this patient who did have a positive UA both CT ultrasound has been suggestive of cystitis to be the likely etiology of his abdominal pain has no other acute process was seen on the CT abdominal pelvis and the patient did have significant tenderness on abdominal examination likely from enteric gram-negative pathogen. 2patient with a left heel osteomyelitis with outpatient culture positive for MRSA for which the patient has been receiving daptomycin at the local senior living, currently on vancomycin pharmacy to dose to continue, however the patient seem to have completed 6-week course of IV vancomycin/daptomycin, vancomycin can be safely discontinued on discharge 3--continue local wound care to the left heel per the wound care and keep the area of the pressure 4--patient with a positive blood culture with Donna albicans high clinical suspicion for related to the PICC line, PICC line has been discontinued blood cultures has been repeated which are currently pending, patient to continue with the Diflucan, hopefully will be able to finish therapy with oral Diflucan 4 mg p.o. daily x 10 days on discharge 6urine cultures are growing ESBL E. coli, patient to continue with meropenem 1 g every 8 hours patient has received adequate antibiotic before his UTI not running any fever recommended discontinue meropenem on discharge at the bedside questions were answered Dictation was produced using zhiwo dictation software. please excuse any grammatical, word or spelling errors. Time with Patient: Less than 30
[2024-01-22 20:52] LABS: Glucose,Whole Blood 286 mg/dL (70-110)
[2024-01-23 05:42] LABS: Glucose,Whole Blood 44 mg/dL (70-110)
[2024-01-23 05:56] LABS: Glucose,Whole Blood 52 mg/dL (70-110)
[2024-01-23 06:06] LABS: Glucose,Whole Blood 77 mg/dL (70-110)
[2024-01-23 06:52] LABS: African American GFR (CKD) 70 (>60 ml/min/1.73 sqM); Anion Gap 7 mmol/L; Blood Urea Nitrogen 29 mg/dL (9-20); Calcium 8.8 mg/dL (8.4-10.2); Carbon Dioxide 25 mmol/L (22-30); Chloride 107 mmol/L (98-107); Glucose 140 mg/dL (74-99); Non-African American GFR(CKD) 60 (>60 ml/min/1.73 sqM); Potassium 4.4 mmol/L (3.5-5.1); Sodium 139 mmol/L (137-145)
[2024-01-23] MEDS: VANCOMYCIN 1,250 MG in SODIUM CHLORIDE 0.9% 250 ML IVPB ONE (11:07)
[2024-01-23 11:34] LABS: Glucose,Whole Blood 157 mg/dL (70-110)
[2024-01-23 12:15] LABS: Basophils # (A) 0.04 X 10*3/uL (0.00-0.10); Basophils % (A) 0.5 %; Eosinophils # (A) 0.21 X 10*3/uL (0.04-0.35); Eosinophils % (A) 2.6 %; HCT 38.7 % (39.6-50.0); HGB 11.9 g/dL (13.0-17.0); Lymphocytes # (A) 0.99 X 10*3/uL (0.90-5.00); Lymphocytes % (A) 12.4 %; MCH 28.7 pg (27.0-32.0); MCHC 30.7 g/dL (32.0-37.0); MCV 93.3 FL (80.0-97.0); Mean Platelet Volume 9.8 FL (9.5-12.2); Monocytes # (A) 0.63 X 10*3/uL (0.20-1.00); Monocytes % (A) 7.9 %; NRBC Per 100 WBC 0 X 10*3/uL (0.00-0.01); Neutrophils # (A) 6.01 X 10*3/uL (1.80-7.70); Neutrophils % (A) 75.5 %; Platelet Count 351 X 10*3/uL (140-440); RBC 4.15 X 10*6/uL (4.40-5.60); RDW 12.6 % (11.5-14.5); WBC 7.97 X 10*3/uL (4.50-10.00)
--- NOTE | 2024-01-23 14:06 | P.DS ---
Providers Date of admission: 01/13/24 03:13 Expected date of discharge: 01/23/24 Attending physician: Carter Ibarra Consults: 01/13/24 07:05 Consult Physician Routine Consulting Provider: Candido Fairbanks Consult Reason/Comments: UYI. Possible osteomyelitis Do you want consulting provider notified?: Yes 01/21/24 17:34 Consult Physician Routine Consulting Provider: Uriel Bowen Consult Reason/Comments: hematuria Do you want consulting provider notified?: Yes, Notify in am Primary care physician: Mika [facility] Course: Final diagnosis Acute influenza A with acute hypoxic respiratory failure, present on admission Donna bacteremia and candidemia, PICC line was removed and cultures were negative. Initial blood culture showing Donna and repeat cultures are negative. Acute urinary tract infection, present on admission with ESBL, has received adequate antibiotics Diabetes mellitus, type II, uncontrolled with hypoglycemia Left foot cellulitis, present on admission, improved Hypothyroidism GERD Hyperlipidemia Hypertension History of depression/panic disorder History of coronary artery disease with CABG Inferior lateral hypokinesis on the 2D echo GI prophylaxis DVT prophylaxis Full code Discharge disposition Patient is being discharged in a stable condition with guarded prognosis to [facility]. Patient will follow-up with Dr. Bell in the outpatient setting upon discharge. Patient is to continue with oral Diflucan 400 mg daily for the next 10 days and outpatient follow-up with the wound care center as well as Dr. Fairbanks as scheduled. Total time taken is greater than 35 minutes. Hospital course This is a 73-year-old male who was recently admitted with acute influenza A infection also with Donna bacteremia maintained on antibiotics. Patient had hematuria secondary to urinary tract infection with hemorrhagic cystitis and was evaluated by urology recommending continuing the course of antibiotics to complete the course and outpatient follow-up as needed. Infectious disease following and repeat cultures have been negative recommending to continue with Diflucan 400 mg daily for the next 10 days. Patient to continue with local wound care and elevating lower extremities while at rest. Patient has completed antibiotics and PICC line was removed. PICC line cultures were negative. Patient has been cleared by consultations for discharge back to [facility]. Please refer to other consultation notes for further HPI. Patient is a diabetic and recommend monitoring Accu-Cheks before meals and at bedtime and continuing with sliding scale, Premeal, and long-acting. Currently no reports of chest pain, shortness of breath, or palpitations. Patient is afebrile. No reports of nausea or vomiting and patient is tolerating diet. Patient will be going to [facility] today. Guarded prognosis given patient's significant comorbidities and high risk for readmission. Physical exam: Gen: This is a 73-year-old male who is awake, alert and oriented x 2-3, well- developed, well-nourished, elderly appearing HEENT: Head is atraumatic, normocephalic. Pupils equal, round. Sclerae is anicteric. NECK: Supple. No JVD. No lymphadenopathy. No thyromegaly. LUNGS: Diminished breath sounds bilaterally otherwise clear to auscultation. No wheezes or rhonchi. No intercostal retractions. HEART: S1, S2 are muffled ABDOMEN: Soft. Bowel sounds are present. No masses. No tenderness. EXTREMITIES: No pedal edema. No calf tenderness. Generalized edema noted bilaterally, improved from admission NEUROLOGICAL: Patient is awake, alert and oriented x2-3. Cranial nerves 2 through 12 are grossly intact. Diffusely weak Please refer to medication reconciliation sheet for a list of medications. The impression and plan of care has been dictated by Aileen Poon, Nurse Practitioner as directed. Dr. Fred MD I have performed a history and examination and MDM of this patient, discussed the same with the dictator, and agree with the dictator's assessment and plan as written ,documented as a scribe. Based on total visit time, I have performed more than 50% of the visit. Patient Condition at Discharge: Fair Plan - Discharge Summary Discharge Rx Participant: Yes New Discharge Prescriptions: New Fluconazole [Diflucan] 400 mg PO 20 #10 tablet Ipratropium-Albuterol Nebulize [Duoneb 0.5 mg-3 mg/3 ml Soln] 3 ml INHALATION RT-Q2H PRN each PRN Reason: Shortness Of Breath Or Wheezing Folic Acid 1 mg PO DAILY@1200 tab guaiFENesin [Mucinex] 600 mg PO Q12HR 7 Days #14 tab Multivitamins, Thera [Multivitamin (formulary)] 1 each PO DAILY@1200 tab Nystatin 100,000 Unit/gm Powd [Mycostatin Powder] 1 applic TOPICAL TID each Acetaminophen Tab [Tylenol] 650 mg PO Q6HR PRN tab PRN Reason: Mild Pain Or Fever > 100.5 Thiamine [Vitamin B-1] 100 mg PO BID-W/MEALS tab Enoxaparin [Lovenox] 40 mg SQ DAILY each HYDROcodone/APAP 5-325MG [Whitetop 5-325] 1 each PO Q4HR PRN #4 tab PRN Reason: Moderate Pain (Scale 4 To 6) Benzonatate [Tessalon Perles] 100 mg PO TID PRN cap PRN Reason: Cough Continue Isosorbide Mononitrate ER [Imdur] 30 mg PO DAILY@0800 Pantoprazole Sodium [Protonix] 40 mg PO DAILY@0600 Ferrous Sulfate [Iron (65 MG Elemental)] 325 mg PO DAILY@1700 Aspirin [[place] Aspirin EC] 81 mg PO DAILY@1700 Ammonium Lactate Cream [Lac-Hydrin 12% Cream] 1 applic TOPICAL BID PRN PRN Reason: Dry Skin Empagliflozin [Jardiance] 25 mg PO DAILY@0800 Escitalopram [Lexapro] 10 mg PO DAILY@0800 bisacodyL [Dulcolax] 10 mg RECTAL DAILY PRN PRN Reason: Constipation Magnesium Hydroxide [Milk of Magnesia Concentrate] 7,200 mg PO Q48H PRN PRN Reason: Constipation INSULIN ASPART (NovoLOG) [NovoLOG (formulary)] See Protocol SQ ACHS INSULIN ASPART (NovoLOG) [NovoLOG (formulary)] 3 unit SQ TID@0800,1200,1700 Famotidine [Pepcid] 20 mg PO DAILY@0800 Tamsulosin HCl [Flomax] 0.4 mg PO HS Ondansetron [Zofran] 4 mg PO Q8H PRN PRN Reason: Nausea And Vomiting Atorvastatin [Lipitor] 80 mg PO HS Na Phos,M-B/Na Phos,Di-Ba [Fleet Adult] 133 ml RECTAL DAILY PRN PRN Reason: Constipation Metoprolol Tartrate [Lopressor] 50 mg PO BID@0800,1700 Liquacel 30 ml PO BID@0800,1700 Glucerna Shake 237 ml PO DAILY@1500 Phytoplex Z-Guard External Paste 57-17% 1 applic TOPICAL TUTHSA Levothyroxine Sodium [Synthroid] 150 mcg PO DAILY@0600 Cholecalciferol [Vitamin D3 (25 Mcg = 1000 Iu)] 25 mcg PO DAILY@0800 amLODIPine [Norvasc] 5 mg PO BID@0800,1999 Dulaglutide [Trulicity] 1.5 mg SQ TH Changed Insulin Glargine [Lantus Vial] 20 unit SQ HS #0 Gabapentin [Neurontin] 400 mg PO HS #2 cap Discontinued HYDROcodone/APAP 7.5-325MG [Whitetop 7.5-325] 1 tab PO Q6H PRN #4 tab PRN Reason: Pain 0.9 % Sodium Chloride [Sodium Chloride Flush] 10 ml IV BID DAPTOmycin [Cubicin] 500 mg IV DAILY@0800 Acetaminophen [Tylenol 8 Hour] 650 mg PO Q4HR PRN PRN Reason: General Discomfort metroNIDAZOLE [Flagyl] 500 mg PO TID@0600,1400,2200 Discharge Medication List Aspirin [Johnson Siding Aspirin EC] 81 mg PO DAILY@1700 03/13/19 [History] Ferrous Sulfate [Iron (65 MG Elemental)] 325 mg PO DAILY@17003/13/19 [History] Isosorbide Mononitrate ER [Imdur] 30 mg PO DAILY@0800 03/13/19 [History] Pantoprazole Sodium [Protonix] 40 mg PO DAILY@0603/13/19 [History] Ammonium Lactate Cream [Lac-Hydrin 12% Cream] 1 applic TOPICAL BID PRN 04/13/23 [History] Atorvastatin [Lipitor] 80 mg PO HS 04/13/23 [History] Empagliflozin [Jardiance] 25 mg PO DAILY@0800 04/13/23 [History] Escitalopram [Lexapro] 10 mg PO DAILY@0800 04/13/23 [History] Glucerna Shake 237 ml PO DAILY@1500 09/24/23 [History] Liquacel 30 ml PO BID@0800,1700 09/24/23 [History] Magnesium Hydroxide [Milk of Magnesia Concentrate] 7,200 mg PO Q48H PRN 09/24/23 [History] Metoprolol Tartrate [Lopressor] 50 mg PO BID@0800,1700 09/24/23 [History] Na Phos,M-B/Na Phos,Di-Ba [Fleet Adult] 133 ml RECTAL DAILY PRN 09/24/23 [History] bisacodyL [Dulcolax] 10 mg RECTAL DAILY PRN 09/24/23 [History] Cholecalciferol [Vitamin D3 (25 Mcg = 1000 Iu)] 25 mcg PO DAILY@0800 12/19/23 [History] Famotidine [Pepcid] 20 mg PO DAILY@0800 12/19/23 [History] INSULIN ASPART (NovoLOG) [NovoLOG (formulary)] 3 unit SQ TID@0800,1200,1700 12/19/23 [History] INSULIN ASPART (NovoLOG) [NovoLOG (formulary)] See Protocol SQ ACHS 12/19/23 [History] Levothyroxine Sodium [Synthroid] 150 mcg PO DAILY@0600 12/19/23 [History] Phytoplex Z-Guard External Paste 57-17% 1 applic TOPICAL TUTHSA 12/19/23 [History] Tamsulosin HCl [Flomax] 0.4 mg PO HS 12/19/23 [History] Dulaglutide [Trulicity] 1.5 mg SQ TH 01/13/24 [History] Ondansetron [Zofran] 4 mg PO Q8H PRN 01/13/24 [History] amLODIPine [Norvasc] 5 mg PO BID@0800,2000 01/13/24 [History] Acetaminophen Tab [Tylenol] 650 mg PO Q6HR PRN tab 01/23/24 [Rx] Benzonatate [Tessalon Perles] 100 mg PO TID PRN cap 01/23/24 [Rx] Enoxaparin [Lovenox] 40 mg SQ DAILY each 01/23/24 [Rx] Fluconazole [Diflucan] 400 mg PO 20 #10 tablet 01/23/24 [Rx] Folic Acid 1 mg PO DAILY@1200 tab 01/23/24 [Rx] Gabapentin [Neurontin] 400 mg PO HS #2 cap 01/23/24 [Rx] HYDROcodone/APAP 5-325MG [Whitetop 5-325] 1 each PO Q4HR PRN #4 tab 01/23/24 [Rx] Insulin Glargine [Lantus Vial] 20 unit SQ HS #0 01/23/24 [Rx] Ipratropium-Albuterol Nebulize [Duoneb 0.5 mg-3 mg/3 ml Soln] 3 ml INHALATION RT-Q2H PRN each 01/23/24 [Rx] Multivitamins, Thera [Multivitamin (formulary)] 1 each PO DAILY@1200 tab 01/23/24 [Rx] Nystatin 100,000 Unit/gm Powd [Mycostatin Powder] 1 applic TOPICAL TID each 01/23/24 [Rx] Thiamine [Vitamin B-1] 100 mg PO BID-W/MEALS tab 01/23/24 [Rx] guaiFENesin [Mucinex] 600 mg PO Q12HR 7 Days #14 tab 01/23/24 [Rx] Follow up Appointment(s)/Referral(s): Mika Bell DO [Primary Care Provider] - 1-2 days Candido Fairbanks MD [STAFF PHYSICIAN] - 1 Week Activity/Diet/Wound Care/Special Instructions: Patient is returning to Adapx Activity as tolerated Patient is to continue with oral Diflucan 400 mg daily for the next 10 days per ID recommendations Continue with zinc barrier paste to the bottom twice daily and if becoming soiled and offloading with frequent position changes Continue monitoring Accu-Cheks before meals and at bedtime and continue with long-acting along with sliding scale and meals NovoLog sliding scale 0-150 equals 0 units 151-200 equals 2 units 201-250 equals 4 units 251-300 equals 6 units 301-350 equals 8 units 351-400 equals 10 units Please notify provider if blood sugar is 400 or above Follow-up primary care provider on discharge Follow-up with infectious disease outpatient Follow-up with the wound care center outpatient in 1 to 2 weeks. Left foot ulcer wound EpiFix is in place do not remove dressing Follow-up with urology outpatient as needed Continue consistent carb/heart healthy diet Discharge Disposition: TRANSFER TO SNF/ECF
[2024-01-23 14:18] VITALS: BP 118/62; PULSE 52; TEMP 97.8
--- NOTE | 2024-01-23 15:18 | P.PN ---
Subjective Progress Note Date: 01/23/24 Principal diagnosis: Reason for follow-up is left heel osteomyelitis and UTI Patient is a 73-year-old male with a past medical history significant for diabetes mellitus hypertension hyperlipidemia IA patient did have a chronic nonhealing wound to the left heel area with underlying osteomyelitis culture positive for Pseudomonas and MRSA, presented to hospital with abdominal pain has been diagnosed with cystitis. On today's evaluation that is 01/23/2024,the patient remains to be afebrile, patient is on room air not requiring supplemental oxygen and denies any short ness of breath no chest pain or cough.Patient denies having any nausea or vomiting, no abdominal pain and no diarrhea has been reported. Patient white count 7.97, creatinine 1.19 Vanco random is 13.7 Objective - Vital Signs Vital signs: Vital Signs Temp 97.9 F 01/23/24 07:26 Pulse 59 L 01/23/24 07:26 Resp 18 01/23/24 07:26 BP 135/66 01/23/24 07:26 Pulse Ox 96 01/23/24 07:26 FiO2 Intake & Output 01/22/24 01/23/24 01/23/24 18:59 06:59 18:59 Output Total 1750 1325 Balance -1750 -1325 Output: Urine 1050 1325 Stool 700 Other: Voiding Method Incontinent Incontinent Incontinent External Catheter External Catheter External Catheter # Voids 1 # Bowel Movements 1 - Exam GENERAL DESCRIPTION: An elderly male lying in bed in no distress RESPIRATORY SYSTEM: Unlabored breathing , decreased breath sounds at bases HEART: S1 S2 regular rate and rhythm , ABDOMEN: Soft , no tenderness EXTREMITIES: Left heel is currently dressed - Labs CBC & Chem 7: 01/23/24 06:22 01/23/24 06:22 Labs: Abnormal Lab Results - Last 24 Hours (Table) 01/22/24 01/22/24 01/23/24 Range/Units 17:05 20:51 05:35 RBC (4.40-5.60) X 10*6/uL Hgb (13.0-17.0) g/dL Hct (39.6-50.0) % MCHC (32.0-37.0) g/dL Immature Gran # (0.00-0.04) X 10*3/uL BUN (9-20) mg/dL Glucose (74-99) mg/dL POC Glucose (mg/dL) 242 H 286 H 44 L (70-110) mg/dL 01/23/24 01/23/24 01/23/24 Range/Units 05:51 06:22 06:22 RBC 4.15 L (4.40-5.60) X 10*6/uL Hgb 11.9 L (13.0-17.0) g/dL Hct 38.7 L (39.6-50.0) % MCHC 30.7 L (32.0-37.0) g/dL Immature Gran # 0.09 H (0.00-0.04) X 10*3/uL BUN 29 H (9-20) mg/dL Glucose 140 H (74-99) mg/dL POC Glucose (mg/dL) 52 L (70-110) mg/dL 01/23/24 Range/Units 11:32 RBC (4.40-5.60) X 10*6/uL Hgb (13.0-17.0) g/dL Hct (39.6-50.0) % MCHC (32.0-37.0) g/dL Immature Gran # (0.00-0.04) X 10*3/uL BUN (9-20) mg/dL Glucose (74-99) mg/dL POC Glucose (mg/dL) 157 H (70-110) mg/dL Microbiology - Last 24 Hours (Table) 01/18/24 06:35 Blood Culture - Final Blood 01/17/24 05:44 Blood Culture - Final Blood Assessment and Plan (1) Influenza A Current Visit: Yes Status: Acute Code(s): J10.1 - FLU DUE TO OTH IDENT INFLUENZA VIRUS W OTH RESP MANIFEST SNOMED Code(s): 968341121 (2) Urinary tract infection Current Visit: Yes Status: Acute Code(s): N39.0 - URINARY TRACT INFECTION, SITE NOT SPECIFIED SNOMED Code(s): 99793005 (3) Osteomyelitis of left foot Current Visit: No Status: Acute Code(s): M86.9 - OSTEOMYELITIS, UNSPECIFIED SNOMED Code(s): 2980452196331252 (4) Candidemia Current Visit: Yes Status: Acute Code(s): B37.7 - CANDIDAL SEPSIS SNOMED Code(s): 403636784 (5) Infection due to ESBL-producing Escherichia coli Current Visit: Yes Status: Acute Code(s): A49.8 - OTHER BACTERIAL INFECTIONS OF UNSPECIFIED SITE; Z16.12 - EXTENDED SPECTRUM BETA LACTAMASE (ESBL) RESISTANCE SNOMED Code(s): 184957637 Plan: 1patient with a left heel osteomyelitis with outpatient culture positive for MRSA for which the patient has been receiving daptomycin at the local detention, currently on vancomycin pharmacy to dose to continue, however the patient seem to have completed 6-week course of IV vancomycin/daptomycin, vancomycin can be discontinued on discharge discussed with the nursing staff,continue local wound care to the left heel per the wound care and keep the area of the pressure 2--patient with a positive blood culture with Donna albicans high clinical suspicion for related to the PICC line, PICC line has been discontinued blood cultures has been repeated which are currently pending, patient to continue with the Diflucan, hopefully will be able to finish therapy with oral Diflucan 400 mg p.o. daily x 10 days on discharge 3urine cultures grew ESBL E. coli, patient to continue with meropenem 1 g every 8 hours patient has received adequate antibiotic for his UTI and no need to continue meropenem on discharge This has been discussed in detail with the BUSINESS ANALYTICS ANALYST for admitting team working on discharge Dictation was produced using [employer] dictation software. please excuse any grammatical, word or spelling errors.
[2024-01-23 16:19] LABS: Glucose,Whole Blood 238 mg/dL (70-110)
== END 2024-01-23 17:03 | DRG 871 ==
LOC: EC 22:10 → 4SSUR 01-13 03:13
PROVIDERS: ADMIT Hospitalist; ATTEND Hospitalist
DX: B37.7 Candidal sepsis (principal); J96.01 Acute respiratory failure with hypoxia; L89.623 Pressure ulcer of left heel, stage 3; M86.8X7 Other osteomyelitis, ankle and foot; L97.829 Non-pressure chronic ulcer of other part of left lower leg with unspecified severity; L03.116 Cellulitis of left lower limb; N17.9 Acute kidney failure, unspecified; Z16.12 Extended spectrum beta lactamase (ESBL) resistance; N30.91 Cystitis, unspecified with hematuria; J10.1 Influenza due to other identified influenza virus with other respiratory manifestations; Z11.52 Encounter for screening for COVID-19; B96.20 Unspecified Escherichia coli [E. coli] as the cause of diseases classified elsewhere; E11.65 Type 2 diabetes mellitus with hyperglycemia; E11.649 Type 2 diabetes mellitus with hypoglycemia without coma; E11.69 Type 2 diabetes mellitus with other specified complication; E03.9 Hypothyroidism, unspecified; E11.40 Type 2 diabetes mellitus with diabetic neuropathy, unspecified; E11.621 Type 2 diabetes mellitus with foot ulcer; L97.529 Non-pressure chronic ulcer of other part of left foot with unspecified severity; E11.51 Type 2 diabetes mellitus with diabetic peripheral angiopathy without gangrene; I70.245 Atherosclerosis of native arteries of left leg with ulceration of other part of foot; E78.5 Hyperlipidemia, unspecified; F32.A Depression, unspecified; F41.0 Panic disorder [episodic paroxysmal anxiety]; I10 Essential (primary) hypertension; I25.10 Atherosclerotic heart disease of native coronary artery without angina pectoris; B95.62 Methicillin resistant Staphylococcus aureus infection as the cause of diseases classified elsewhere; B96.5 Pseudomonas (aeruginosa) (mallei) (pseudomallei) as the cause of diseases classified elsewhere; K59.00 Constipation, unspecified; K21.9 Gastro-esophageal reflux disease without esophagitis; N32.0 Bladder-neck obstruction; Z95.1 Presence of aortocoronary bypass graft; I25.2 Old myocardial infarction; Z79.2 Long term (current) use of antibiotics; Z79.4 Long term (current) use of insulin; Z79.82 Long term (current) use of aspirin; Z79.84 Long term (current) use of oral hypoglycemic drugs; Z79.890 Hormone replacement therapy; Z79.899 Other long term (current) drug therapy; Z87.891 Personal history of nicotine dependence; Z95.5 Presence of coronary angioplasty implant and graft
CPT/HCPCS: 36415; 71046; 74176; 76770; 80048; 80053; 80202; 81001; 82150; 82565; 83036; 83605; 83690; 83735; 84484; 85025; 85610; 85652; 85730; 86140; 87040; 87070; 87077; 87086; 87186; 87636; 93005; 93306; 94640; 94760; 96365; 96375; 99285

== ENCOUNTER 2024-02-16 04:12 | Inpatient (IN) | payer MEDICARE, BC, OTHER ==
[2024-02-16 04:19] LABS: Glucose,Whole Blood 483 mg/dL (70-110)
[2024-02-16] MEDS: SODIUM CHLORIDE 0.9% 1,000 ML IV STA ×3 (04:32→06:08)
[2024-02-16] MEDS: ONDANSETRON 4 MG/2 ML VIAL IVP STA (04:32)
[2024-02-16] MEDS: SODIUM CHLORIDE 0.9% 500 ML 500 ML IV STA (04:33)
--- NOTE | 2024-02-16 04:47 | ED ---
Recheck HPI - General Chief Complaint: Recheck/Abnormal Lab/Rx Stated Complaint: Hyperglycemia Time Seen by Provider: 02/16/24 04:14 Source: patient, EMS, RN notes reviewed, old records reviewed Mode of arrival: EMS Limitations: no limitations - History of Present Illness Initial Comments: This is a 73-year-old male for generalized pain. Patient coming in for severe pain complaining of severe pain but is coming in for evaluation of hyperglycemia. Patient is unable to significantly contribute to history of present illness MD Complaint: abnormal lab (Elevated blood sugar) -: unknown Returns Today for: Called Because of Abnormal Lab/Test Symptoms Since Prior Visit: worsening pain Context: called for abnormal lab result Associated Symptoms: none Treatments Prior to Arrival: Given Pain Meds on - Related Data Home Medications Medication Instructions Recorded Confirmed Aspirin [[facility] Aspirin EC] 81 mg PO DAILY@1700 03/13/19 02/16/24 Ferrous Sulfate [Iron (65 MG 325 mg PO DAILY@1700 03/13/19 02/16/24 Elemental)] Isosorbide Mononitrate ER [Imdur] 30 mg PO DAILY@0800 03/13/19 02/16/24 Pantoprazole Sodium [Protonix] 40 mg PO DAILY@0600 03/13/19 02/16/24 Ammonium Lactate Cream [Lac-Hydrin 1 applic TOPICAL BID PRN 04/13/23 02/16/24 12% Cream] Atorvastatin [Lipitor] 80 mg PO HS 04/13/23 02/16/24 Empagliflozin [Jardiance] 25 mg PO DAILY@0800 04/13/23 02/16/24 Escitalopram [Lexapro] 10 mg PO DAILY@0800 04/13/23 02/16/24 Glucerna Shake 237 ml PO DAILY@1500 09/24/23 02/16/24 Liquacel 30 ml PO BID@0800,1700 09/24/23 02/16/24 Magnesium Hydroxide [Milk of 7,200 mg PO Q48H PRN 09/24/23 02/16/24 Magnesia Concentrate] Metoprolol Tartrate [Lopressor] 50 mg PO BID@0800,1700 09/24/23 02/16/24 Na Phos,M-B/Na Phos,Di-Ba [Fleet 133 ml RECTAL DAILY PRN 09/24/23 02/16/24 Adult] bisacodyL [Dulcolax] 10 mg RECTAL DAILY PRN 09/24/23 02/16/24 Cholecalciferol [Vitamin D3 (25 25 mcg PO DAILY@0800 12/19/23 02/16/24 Mcg = 1000 Iu)] Famotidine [Pepcid] 20 mg PO DAILY@0800 12/19/23 02/16/24 Levothyroxine Sodium [Synthroid] 150 mcg PO DAILY@0600 12/19/23 02/16/24 Phytoplex Z-Guard External Paste 1 applic TOPICAL TUTHSA 12/19/23 02/16/24 57-17% Tamsulosin HCl [Flomax] 0.4 mg PO HS 12/19/23 02/16/24 Dulaglutide [Trulicity] 1.5 mg SQ TH 01/13/24 02/16/24 Ondansetron [Zofran] 4 mg PO Q8H PRN 01/13/24 02/16/24 amLODIPine [Norvasc] 5 mg PO BID@0800,199901/13/24 02/16/24 ALPRAZolam [Xanax] 0.25 mg PO DAILY PRN 02/16/24 02/16/24 Acetaminophen [Tylenol 8 Hour] 650 mg PO Q8H PRN 02/16/24 02/16/24 HYDROcodone/APAP 5-325MG [[place] 1 tab PO Q4HR PRN 02/16/24 02/16/24 5-325] Ipratropium-Albuterol Nebulize 3 ml INHALATION RT-Q6H 02/16/24 02/16/24 [Duoneb 0.5 mg-3 mg/3 ml Soln] Multivitamins, Thera [Multivitamin 1 tab PO DAILY@1200 02/16/24 02/16/24 (formulary)] Previous Rx's Medication Instructions Recorded Benzonatate [Tessalon Perles] 100 mg PO TID PRN cap 01/23/24 Enoxaparin [Lovenox] 40 mg SQ DAILY each 01/23/24 Folic Acid 1 mg PO DAILY@1200 tab 01/23/24 Gabapentin [Neurontin] 400 mg PO HS #2 cap 01/23/24 Nystatin 100,000 Unit/gm Powd 1 applic TOPICAL TID each 01/23/24 [Mycostatin Powder] Thiamine [Vitamin B-1] 100 mg PO BID-W/MEALS tab 01/23/24 INSULIN ASPART (NovoLOG) [NovoLOG 0 unit SQ ACHS each 02/16/24 (formulary)] INSULIN ASPART (NovoLOG) [NovoLOG 8 unit SQ AC-TID each 02/16/24 (formulary)] Insulin Detemir (Levemir) [Levemir] 13 unit SQ BID@0700,2100 each 02/16/24 Allergies Allergy/AdvReac Type Severity Reaction Status Date / Time No Known Allergies Allergy Verified 02/16/24 08:12 Review of Systems ROS Statement: Those systems with pertinent positive or pertinent negative responses have been documented in the HPI. ROS Other: All systems not noted in ROS Statement are negative. Past Medical History Past Medical History: Coronary Artery Disease (CAD), Diabetes Mellitus, GERD/Reflux, Hyperlipidemia, Hypertension, Myocardial Infarction (LA), Thyroid Disorder Additional Past Medical History / Comment(s): neuropathy, diabetic coma in 2000 and pt's sister has had legal guardianship since. Last Myocardial Infarction Date:: unknown History of Any Multi-Drug Resistant Organisms: ESBL, MRSA, MRSA Date of last positivie culture/infection: 11/23/23-MRSA; 09/25/23 ESBL MDRO Source:: Left Heel-MRSA; Blood-ESBL Past Surgical History: Appendectomy, Coronary Bypass/CABG, Heart Catheterization With Stent Additional Past Surgical History / Comment(s): Sister relays, "He had peripheral artery surgery too." Past Anesthesia/Blood Transfusion Reactions: No Reported Reaction Date of Last Stent Placement:: unknown Past Psychological History: Depression, Panic Disorder Smoking Status: Former smoker Past Alcohol Use History: Daily Past Drug Use History: Marijuana - Past Family History Father Family Medical History: Congestive Heart Failure (CHF) Mother Additional Family Medical History / Comment(s): of old age. General Exam Limitations: no limitations General appearance: alert, in no apparent distress, anxious, lethargic Head exam: Present: atraumatic, normocephalic, normal inspection Eye exam: Present: normal appearance, PERRL, EOMI. Absent: scleral icterus, conjunctival injection, periorbital swelling ENT exam: Present: normal exam, mucous membranes moist Neck exam: Present: normal inspection. Absent: tenderness, meningismus, lymphadenopathy Respiratory exam: Present: normal lung sounds bilaterally. Absent: respiratory distress, wheezes, rales, rhonchi, stridor Cardiovascular Exam: Present: regular rate, normal rhythm, normal heart sounds. Absent: systolic murmur, diastolic murmur, rubs, gallop, clicks GI/Abdominal exam: Present: soft, normal bowel sounds. Absent: distended, tenderness, guarding, rebound, rigid Extremities exam: Present: normal inspection, full ROM, normal capillary refill. Absent: tenderness, pedal edema, joint swelling, calf tenderness Back exam: Present: normal inspection Neurological exam: Present: alert, oriented X3, CN II-XII intact Psychiatric exam: Present: normal affect, normal mood Skin exam: Present: warm, dry, intact, normal color. Absent: rash Course Vital Signs 02/16/24 02/16/24 02/16/24 04:13 06:06 08:05 Temperature 97.4 F L 97.6 F Pulse Rate 67 72 65 Respiratory 18 18 17 Rate Blood Pressure 141/63 150/71 155/74 O2 Sat by Pulse 99 99 97 Oximetry 02/16/24 02/16/24 02/16/24 09:02 10:01 11:05 Temperature Pulse Rate 60 80 67 Respiratory 17 17 17 Rate Blood Pressure 146/64 175/89 155/60 O2 Sat by Pulse 98 98 96 Oximetry 02/16/24 02/16/24 02/16/24 12:13 13:09 14:17 Temperature 97.9 F 98.0 F 97.6 F Pulse Rate 73 77 61 Respiratory 18 20 16 Rate Blood Pressure 173/65 128/62 149/83 O2 Sat by Pulse 97 97 98 Oximetry - Reevaluation(s) Reevaluation #1: 02/16/24 06:15 Records reviewed Reevaluation #2: 02/16/24 06:15 Patient remains in severe pain Reevaluation #3: Patient informed of results and questions answered Reevaluation #4: Was pt. sent in by a medical professional or institution (, PA, UPHOLSTERY RESTORER, urgent care, hospital, or [facility]...) When possible be specific @ -no Did you speak to anyone other than the patient for history (EMS, parent, family, police, friend...)? What history was obtained from this source @ -no Did you review nursing and triage notes (agree or disagree)? Why? @ -agree Are old charts reviewed (outside hosp., previous admission, EMS record, old EKG, old radiological studies, urgent care reports/EKG's, [facility] records)? Report findings @ -yes Differential Diagnosis (chest pain, altered mental status, abdominal pain women, abdominal pain men, vaginal bleeding, weakness, fever, dyspnea, syncope, headache, dizziness, GI bleed, back pain, seizure, CVA, palpatations, mental he alth, musculoskeletal)? @ -prior EKG interpreted by me (3pts min.). @ -yes X-rays interpreted by me (1pt min.). @ -no CT interpreted by me (1pt min.). @ -no U/S interpreted by me (1pt. min.). @ -no What testing was considered but not performed or refused? (CT, X-rays, U/S, labs)? Why? @ -none What meds were considered but not given or refused? Why? @ -none Did you discuss the management of the patient with other professionals (professionals i.e. , PA, UPHOLSTERY RESTORER, lab, RT, psych nurse, neonatal social worker, financial risk manager, teacher, senior administrative services officer, medical case worker)? Give summary @ -no Was smoking cessation discussed for >3mins.? @ -no Was critical care preformed (if so, how long)? @ -no Were there social determinants of health that impacted care today? How? (Homelessness, low income, unemployed, alcoholism, drug addiction, transportation, low edu. Level, literacy, decrease access to med. care, care home, r ehab)? @ -none Was there de-escalation of care discussed even if they declined (Discuss DNR or withdrawal of care, Hospice)? DNR status @ -no What co-morbidities impacted this encounter? (DM, HTN, Smoking, COPD, CAD, Cancer, CVA, ARF, Chemo, Hep., AIDS, mental health diagnosis, sleep apnea, morbid obesity)? @ -none Was patient admitted / discharged? Hospital course, mention meds given and route , prescriptions, significant lab abnormalities, going to OR and other pertinent info. @ - 73 male to the ER for evaluation today. Patient presents today for evaluation regards to elevated blood sugar significant weakness with no other complaints. Patient will be admitted for further evaluation and management Admitted Undiagnosed new problem with uncertain prognosis? @ -no Drug Therapy requiring intensive monitoring for toxicity (Heparin, Nitro, Insulin, Cardizem)? @ -no Were any procedures done? @ -no Diagnosis/symptom? @ -Hyperglycemia Acute, or Chronic, or Acute on Chronic? @ -Acute Uncomplicated (without systemic symptoms) or Complicated (systemic symptoms)? @ -Complicated Side effects of treatment? @ -no Exacerbation, Progression, or Severe Exacerbation? @ -exacerbation Poses a threat to life or bodily function? How? (Chest pain, USA, LA, pneumonia, PE, COPD, DKA, ARF, appy, cholecystitis, CVA, Diverticulitis, Homicidal, Suicidal, threat to staff... and all critical care pts) @ -yes with extremes of age Reevaluation #5: Differential Weakness: Hypoglycemia, shock, sepsis, hyponatremia, anemia, infection, LA, ETOH, adverse medicine reaction, overdose, stroke, this is not meant to be an all-inclusive list. - Consultations Consultation #1: Spoke with many physicians who agreed to admit this patient Medical Decision Making - Medical Decision Making 73 male to the ER for evaluation today. Patient midstate for evaluation regards to elevated blood sugar significant weakness with no other complaints. Patient will be admitted for further evaluation and management - Lab Data Result diagrams: 02/16/24 04:35 02/16/24 04:35 Lab Results 02/16/24 02/16/24 02/16/24 Range/Units 04:18 04:35 04:35 WBC 6.0 (3.8-10.6) k/uL RBC 3.90 L (4.30-5.90) m/uL Hgb 11.2 L (13.0-17.5) gm/dL Hct 37.1 L (39.0-53.0) % MCV 95.2 (80.0-100.0) fL MCH 28.8 (25.0-35.0) pg MCHC 30.2 L (31.0-37.0) g/dL RDW 14.0 (11.5-15.5) % Plt Count 313 (150-450) k/uL MPV 7.5 Neutrophils % 64 % Lymphocytes % 22 % Monocytes % 6 % Eosinophils % 5 % Basophils % 1 % Neutrophils # 3.9 (1.3-7.7) k/uL Lymphocytes # 1.3 (1.0-4.8) k/uL Monocytes # 0.3 (0-1.0) k/uL Eosinophils # 0.3 (0-0.7) k/uL Basophils # 0.1 (0-0.2) k/uL Hypochromasia Slight PT 9.8 L (10.0-12.5) sec INR 0.9 (<1.2) APTT 20.4 L (22.0-30.0) sec VBG pH (7.31-7.41) VBG pCO2 (37-51) mmHg VBG HCO3 (24-28) mmol/L Sodium (137-145) mmol/L Potassium (3.5-5.1) mmol/L Chloride (98-107) mmol/L Carbon Dioxide (22-30) mmol/L Anion Gap mmol/L BUN (9-20) mg/dL Creatinine (0.66-1.25) mg/dL Est GFR (CKD-EPI)AfAm (>60 ml/min/1.73 sqM) Est GFR (CKD-EPI)NonAf (>60 ml/min/1.73 sqM) Glucose (74-99) mg/dL POC Glucose (mg/dL) 483 H (70-110) mg/dL POC Glu [employer] ID Indira Vidal Plasma Lactic Acid Selvin (0.7-2.0) mmol/L Calcium (8.4-10.2) mg/dL Phosphorus (2.5-4.5) mg/dL Magnesium (1.6-2.3) mg/dL Total Bilirubin (0.2-1.3) mg/dL AST (17-59) U/L ALT (4-49) U/L Alkaline Phosphatase (38-126) U/L Troponin I (0.000-0.034) ng/mL Total Protein (6.3-8.2) g/dL Albumin (3.5-5.0) g/dL Acetone, Qual (Negative) 02/16/24 02/16/24 02/16/24 Range/Units 04:35 04:35 04:35 WBC (3.8-10.6) k/uL RBC (4.30-5.90) m/uL Hgb (13.0-17.5) gm/dL Hct (39.0-53.0) % MCV (80.0-100.0) fL MCH (25.0-35.0) pg MCHC (31.0-37.0) g/dL RDW (11.5-15.5) % Plt Count (150-450) k/uL MPV Neutrophils % % Lymphocytes % % Monocytes % % Eosinophils % % Basophils % % Neutrophils # (1.3-7.7) k/uL Lymphocytes # (1.0-4.8) k/uL Monocytes # (0-1.0) k/uL Eosinophils # (0-0.7) k/uL Basophils # (0-0.2) k/uL Hypochromasia PT (10.0-12.5) sec INR (<1.2) APTT (22.0-30.0) sec VBG pH (7.31-7.41) VBG pCO2 (37-51) mmHg VBG HCO3 (24-28) mmol/L Sodium 132 L (137-145) mmol/L Potassium 5.8 H (3.5-5.1) mmol/L Chloride 104 (98-107) mmol/L Carbon Dioxide 16 L (22-30) mmol/L Anion Gap 12 mmol/L BUN 53 H (9-20) mg/dL Creatinine 1.44 H (0.66-1.25) mg/dL Est GFR (CKD-EPI)AfAm 55 (>60 ml/min/1.73 sqM) Est GFR (CKD-EPI)NonAf 48 (>60 ml/min/1.73 sqM) Glucose 506 H* (74-99) mg/dL POC Glucose (mg/dL) (70-110) mg/dL POC Glu [employer] ID Plasma Lactic Acid Selvin 1.3 (0.7-2.0) mmol/L Calcium 8.7 (8.4-10.2) mg/dL Phosphorus 4.7 H (2.5-4.5) mg/dL Magnesium 2.1 (1.6-2.3) mg/dL Total Bilirubin 0.7 (0.2-1.3) mg/dL AST 30 (17-59) U/L ALT 17 (4-49) U/L Alkaline Phosphatase 104 (38-126) U/L Troponin I <0.012 (0.000-0.034) ng/mL Total Protein 8.0 (6.3-8.2) g/dL Albumin 3.6 (3.5-5.0) g/dL Acetone, Qual Negative (Negative) 02/16/24 02/16/24 Range/Units 05:24 06:00 WBC (3.8-10.6) k/uL RBC (4.30-5.90) m/uL Hgb (13.0-17.5) gm/dL Hct (39.0-53.0) % MCV (80.0-100.0) fL MCH (25.0-35.0) pg MCHC (31.0-37.0) g/dL RDW (11.5-15.5) % Plt Count (150-450) k/uL MPV Neutrophils % % Lymphocytes % % Monocytes % % Eosinophils % % Basophils % % Neutrophils # (1.3-7.7) k/uL Lymphocytes # (1.0-4.8) k/uL Monocytes # (0-1.0) k/uL Eosinophils # (0-0.7) k/uL Basophils # (0-0.2) k/uL Hypochromasia PT (10.0-12.5) sec INR (<1.2) APTT (22.0-30.0) sec VBG pH 7.28 L (7.31-7.41) VBG pCO2 47 (37-51) mmHg VBG HCO3 22 L (24-28) mmol/L Sodium (137-145) mmol/L Potassium (3.5-5.1) mmol/L Chloride (98-107) mmol/L Carbon Dioxide (22-30) mmol/L Anion Gap mmol/L BUN (9-20) mg/dL Creatinine (0.66-1.25) mg/dL Est GFR (CKD-EPI)AfAm (>60 ml/min/1.73 sqM) Est GFR (CKD-EPI)NonAf (>60 ml/min/1.73 sqM) Glucose (74-99) mg/dL POC Glucose (mg/dL) 423 H (70-110) mg/dL POC Glu [employer]ship Vaishnavi Marshall Plasma Lactic Acid [place] (0.7-2.0) mmol/L Calcium (8.4-10.2) mg/dL Phosphorus (2.5-4.5) mg/dL Magnesium (1.6-2.3) mg/dL Total Bilirubin (0.2-1.3) mg/dL AST (17-59) U/L ALT (4-49) U/L Alkaline Phosphatase (38-126) U/L Troponin I (0.000-0.034) ng/mL Total Protein (6.3-8.2) g/dL Albumin (3.5-5.0) g/dL Acetone, Qual (Negative) - EKG Data -: EKG Interpreted by Me (EKG is sinus 65 SC 247 QRS 98 QTc four 42-year-old) Disposition Clinical Impression: Generalized weakness, Chronic pain, Hyperglycemia, Hyperkalemia Disposition: HOME SELF-CARE Condition: Fair Is patient prescribed a controlled substance at d/c from ED?: No Time of Disposition: 06:00
[2024-02-16 04:50] LABS: Basophils # (A) 0.1 k/uL (0-0.2); Basophils % (A) 1 %; Eosinophils # (A) 0.3 k/uL (0-0.7); Eosinophils % (A) 5 %; HCT 37.1 % (39.0-53.0); HGB 11.2 gm/dL (13.0-17.5); Hypochromasia Slight; Lymphocytes # (A) 1.3 k/uL (1.0-4.8); Lymphocytes % (A) 22 %; MCH 28.8 pg (25.0-35.0); MCHC 30.2 g/dL (31.0-37.0); MCV 95.2 fL (80.0-100.0); Mean Platelet Volume 7.5; Monocytes # (A) 0.3 k/uL (0-1.0); Monocytes % (A) 6 %; Neutrophils # (A) 3.9 k/uL (1.3-7.7); Neutrophils % (A) 64 %; Platelet Count 313 k/uL (150-450)
[2024-02-16 05:07] LABS: INR 0.9 (<1.2); Partial Thromboplastin Time 20.4 sec (22.0-30.0); Prothrombin Time 9.8 sec (10.0-12.5)
[2024-02-16 05:13] LABS: ALT 17 U/L (4-49); African American GFR (CKD) 55 (>60 ml/min/1.73 sqM); Anion Gap 12 mmol/L; Blood Urea Nitrogen 53 mg/dL (9-20); Calcium 8.7 mg/dL (8.4-10.2); Carbon Dioxide 16 mmol/L (22-30); Chloride 104 mmol/L (98-107); Non-African American GFR(CKD) 48 (>60 ml/min/1.73 sqM); Sodium 132 mmol/L (137-145)
[2024-02-16 05:15] LABS: Glucose 506 mg/dL (74-99)
[2024-02-16 05:19] LABS: AST 30 U/L (17-59); Albumin 3.6 g/dL (3.5-5.0); Alkaline Phosphatase 104 U/L (38-126); Magnesium 2.1 mg/dL (1.6-2.3); Phosphorus 4.7 mg/dL (2.5-4.5); Potassium 5.8 mmol/L (3.5-5.1); Total Bilirubin 0.7 mg/dL (0.2-1.3)
[2024-02-16 06:01] LABS: Glucose,Whole Blood 423 mg/dL (70-110)
[2024-02-16] MEDS: HYDROmorphone 1 MG/ML 1 ML SYRINGE IVP STA (06:08)
[2024-02-16] MEDS ORDERED: MORPHINE SULFATE 4 MG/ML SYRINGE IV PRN (06:14)
[2024-02-16] MEDS ORDERED: NALOXONE 0.4 MG/ML 1 ML VIAL IV PRN (06:14)
[2024-02-16] MEDS ORDERED: ONDANSETRON 4 MG/2 ML VIAL IVP PRN (06:14)
[2024-02-16 06:27] LABS: VBG PH 7.28 (7.31-7.41)
[2024-02-16] MEDS: SODIUM CHLORIDE 0.9% 1,000 ML IV SCH (06:41)
[2024-02-16 10:14] LABS: Glucose,Whole Blood 299 mg/dL (70-110)
[2024-02-16] MEDS ORDERED: DEXTROSE 50% SYRINGE 50 ML IVP PRN ×2 (10:30)
[2024-02-16 11:57] LABS: Glucose,Whole Blood 252 mg/dL (70-110)
[2024-02-16] MEDS: INSULIN ASPART (NovoLOG) 100 UNIT/ML VIAL SQ SCH ×2 (12:19→12:21)
--- NOTE | 2024-02-16 13:41 | P.HPIM ---
History of Present Illness H&P Date: 02/16/24 This is a 73-year-old male who presented to the emergency department via EMS from [facility] where he resides with concerns of hyperglycemia. Patient follows with Dr. Bell in the outpatient setting with a past medical history of coronary artery disease, diabetes, GERD, hyperlipidemia, hypertension, previous myocardial infarction, thyroid disorder, neuropathy, depression, panic disorder. On admission labs including glucose were found to be 506 other labs including troponin were negative. Patient will continue on Accu-Cheks before meals and at bedtime along with sliding scale, Premeal insulin, and long-acting twice daily. Adjust insulins accordingly and can consistent carb diet. REVIEW OF SYSTEMS: CONSTITUTIONAL: No fever, no malaise, no fatigue. Patient reports feeling " crappy" HEENT: No recent visual problems or hearing problems. Denied any sore throat. CARDIOVASCULAR: No chest pain, orthopnea, PND, no palpitations, no syncope. PULMONARY: No shortness of breath, no cough, no hemoptysis. GASTROINTESTINAL: No diarrhea, no nausea, no vomiting, no abdominal pain. NEUROLOGICAL: No headaches, no weakness, no numbness. HEMATOLOGICAL: Denies any bleeding or petechiae. GENITOURINARY: Denies any burning micturition, frequency, or urgency. MUSCULOSKELETAL/RHEUMATOLOGICAL: Reports chronic pain all the time ENDOCRINE: Denies any polyuria or polydipsia. The rest of the 14-point review of systems is negative. PHYSICAL EXAMINATION: GENERAL: The patient is alert and oriented x2-3, baseline, agitated because he has not eaten Well developed, well nourished. Elderly appearing HEENT: Pupils are round and equally reacting to light. EOMI. No scleral icterus. No conjunctival pallor. Normocephalic, atraumatic. No pharyngeal erythema. No thyromegaly. CARDIOVASCULAR: S1 and S2 present. No murmurs, rubs, or gallops. PULMONARY: Chest is clear to auscultation, no wheezing or crackles. ABDOMEN: Soft, nontender, nondistended, normoactive bowel sounds. No palpable organomegaly. MUSCULOSKELETAL: No joint swelling or deformity. EXTREMITIES: No cyanosis, clubbing, or pedal edema. NEUROLOGICAL: Gross neurological examination did not reveal any focal deficits. Diffusely weak SKIN: No rashes. Assessment: Diabetes mellitus, type II, insulin-dependent uncontrolled with hyperglycemia Chronic pain Gait dysfunction and generalized weakness History of coronary artery disease GERD Hyperlipidemia Hypertension Thyroid disorder Neuropathy Depression and panic disorder history Former smoker GI prophylaxis DVT prophylaxis Full code Plan: Patient has been seen and evaluated and blood sugars are more controlled recommend to continue with Accu-Cheks before meals and at bedtime as well as 2 AM and also adjust insulins accordingly. Patient will continue on long-acting twice daily along with sliding scale and Premeal insulins. Patient is medically stable for returning to [facility] where he resides at [facility] Case management following working on discharge planning Continue consistent carb diet The impression and plan of care has been dictated by Aileen Poon, Nurse Practitioner as directed. Dr. Fred MD I have performed a history and examination and MDM of this patient, discussed the same with the dictator, and agree with the dictator's assessment and plan as written ,documented as a scribe. Based on total visit time, I have performed more than 50% of the visit. Past Medical History Past Medical History: Coronary Artery Disease (CAD), Diabetes Mellitus, GERD/Reflux, Hyperlipidemia, Hypertension, Myocardial Infarction (MA), Thyroid Disorder Additional Past Medical History / Comment(s): neuropathy, diabetic coma in 2000 and pt's sister has had legal guardianship since. Last Myocardial Infarction Date:: unknown History of Any Multi-Drug Resistant Organisms: ESBL, MRSA, MRSA Date of last positivie culture/infection: 11/23/23-MRSA; 09/25/23 ESBL MDRO Source:: Left Heel-MRSA; Blood-ESBL Past Surgical History: Appendectomy, Coronary Bypass/CABG, Heart Catheterization With Stent Additional Past Surgical History / Comment(s): Sister relays, "He had peripheral artery surgery too." Past Anesthesia/Blood Transfusion Reactions: No Reported Reaction Date of Last Stent Placement:: unknown Past Psychological History: Depression, Panic Disorder Smoking Status: Former smoker Past Alcohol Use History: Daily Past Drug Use History: Marijuana - Past Family History Father Family Medical History: Congestive Heart Failure (CHF) Mother Additional Family Medical History / Comment(s): of old age. Medications and Allergies Home Medications Medication Instructions Recorded Confirmed Type Aspirin [Lea Aspirin EC] 81 mg PO DAILY@0 03/13/19 02/16/24 History Ferrous Sulfate [Iron (65 MG 325 mg PO DAILY@169903/13/19 02/16/24 History Elemental)] Isosorbide Mononitrate ER [Imdur] 30 mg PO DAILY@0800 03/13/19 02/16/24 History Pantoprazole Sodium [Protonix] 40 mg PO DAILY@0600 03/13/19 02/16/24 History Ammonium Lactate Cream [Lac-Hydrin 1 applic TOPICAL BID PRN 04/13/23 02/16/24 History 12% Cream] Atorvastatin [Lipitor] 80 mg PO HS 04/13/23 02/16/24 History Empagliflozin [Jardiance] 25 mg PO DAILY@0800 04/13/23 02/16/24 History Escitalopram [Lexapro] 10 mg PO DAILY@0800 04/13/23 02/16/24 History Glucerna Shake 237 ml PO DAILY@1500 09/24/23 02/16/24 History Liquacel 30 ml PO BID@0800,1700 09/24/23 02/16/24 History Magnesium Hydroxide [Milk of 7,200 mg PO Q48H PRN 09/24/23 02/16/24 History Magnesia Concentrate] Metoprolol Tartrate [Lopressor] 50 mg PO BID@0800,1700 09/24/23 02/16/24 History Na Phos,M-B/Na Phos,Di-Ba [Fleet 133 ml RECTAL DAILY PRN 09/24/23 02/16/24 His tory Adult] bisacodyL [Dulcolax] 10 mg RECTAL DAILY PRN 09/24/23 02/16/24 History Cholecalciferol [Vitamin D3 (25 25 mcg PO DAILY@0800 12/19/23 02/16/24 History Mcg = 1000 Iu)] Famotidine [Pepcid] 20 mg PO DAILY@0800 12/19/23 02/16/24 History Levothyroxine Sodium [Synthroid] 150 mcg PO DAILY@0600 12/19/23 02/16/24 History Phytoplex Z-Guard External Paste 1 applic TOPICAL TUTHSA 12/19/23 02/16/24 History 57-17% Tamsulosin HCl [Flomax] 0.4 mg PO HS 12/19/23 02/16/24 History Dulaglutide [Trulicity] 1.5 mg SQ TH 01/13/24 02/16/24 History Ondansetron [Zofran] 4 mg PO Q8H PRN 01/13/24 02/16/24 History amLODIPine [Norvasc] 5 mg PO BID@0800,2000 01/13/24 02/16/24 History Benzonatate [Tessalon Perles] 100 mg PO TID PRN cap 01/23/24 02/16/24 Rx Enoxaparin [Lovenox] 40 mg SQ DAILY each 01/23/24 02/16/24 Rx Folic Acid 1 mg PO DAILY@1200 tab 01/23/24 02/16/24 Rx Gabapentin [Neurontin] 400 mg PO HS #2 cap 01/23/24 02/16/24 Rx Nystatin 100,000 Unit/gm Powd 1 applic TOPICAL TID each 01/23/24 02/16/24 Rx [Mycostatin Powder] Thiamine [Vitamin B-1] 100 mg PO BID-W/MEALS tab 01/23/24 02/16/24 Rx ALPRAZolam [Xanax] 0.25 mg PO DAILY PRN 02/16/24 02/16/24 History Acetaminophen [Tylenol 8 Hour] 650 mg PO Q8H PRN 02/16/24 02/16/24 History HYDROcodone/APAP 5-325MG [[place] 1 tab PO Q4HR PRN 02/16/24 02/16/24 History 5-325] INSULIN ASPART (NovoLOG) [NovoLOG 0 unit SQ ACHS each 02/16/24 Rx (formulary)] INSULIN ASPART (NovoLOG) [NovoLOG 8 unit SQ AC-TID each 02/16/24 Rx (formulary)] Insulin Detemir (Levemir) [Levemir] 13 unit SQ BID@0700,2100 each 02/16/24 Rx Ipratropium-Albuterol Nebulize 3 ml INHALATION RT-Q6H 02/16/24 02/16/24 History [Duoneb 0.5 mg-3 mg/3 ml Soln] Multivitamins, Thera [Multivitamin 1 tab PO DAILY@1200 02/16/24 02/16/24 History (formulary)] Allergies Allergy/AdvReac Type Severity Reaction Status Date / Time No Known Allergies Allergy Verified 02/16/24 08:12 Physical Exam Vitals: Vital Signs Temp Pulse Resp BP Pulse Ox 02/16/24 12:13 97.9 F 73 18 173/65 97 02/16/24 11:05 67 17 155/60 96 02/16/24 10:01 80 17 175/89 98 02/16/24 09:02 60 17 146/64 98 02/16/24 08:05 97.6 F 65 17 155/74 97 02/16/24 06:06 72 18 150/71 99 02/16/24 04:13 97.4 F L 67 18 141/63 99 Intake and Output 02/15/24 02/16/24 02/16/24 22:59 06:59 14:59 Other: Weight 83.915 kg Results CBC & Chem 7: 02/16/24 04:35 02/16/24 04:35 Labs: Abnormal Lab Results - Last 24 Hours (Table) 02/16/24 02/16/24 02/16/24 Range/Units 04:18 04:35 04:35 RBC 3.90 L (4.30-5.90) m/uL Hgb 11.2 L (13.0-17.5) gm/dL Hct 37.1 L (39.0-53.0) % MCHC 30.2 L (31.0-37.0) g/dL PT 9.8 L (10.0-12.5) sec APTT 20.4 L (22.0-30.0) sec VBG pH (7.31-7.41) VBG HCO3 (24-28) mmol/L Sodium (137-145) mmol/L Potassium (3.5-5.1) mmol/L Carbon Dioxide (22-30) mmol/L BUN (9-20) mg/dL Creatinine (0.66-1.25) mg/dL Glucose (74-99) mg/dL POC Glucose (mg/dL) 483 H (70-110) mg/dL Phosphorus (2.5-4.5) mg/dL 02/16/24 02/16/24 02/16/24 Range/Units 04:35 05:24 06:00 RBC (4.30-5.90) m/uL Hgb (13.0-17.5) gm/dL Hct (39.0-53.0) % MCHC (31.0-37.0) g/dL PT (10.0-12.5) sec APTT (22.0-30.0) sec VBG pH 7.28 L (7.31-7.41) VBG HCO3 22 L (24-28) mmol/L Sodium 132 L (137-145) mmol/L Potassium 5.8 H (3.5-5.1) mmol/L Carbon Dioxide 16 L (22-30) mmol/L BUN 53 H (9-20) mg/dL Creatinine 1.44 H (0.66-1.25) mg/dL Glucose 506 H* (74-99) mg/dL POC Glucose (mg/dL) 423 H (70-110) mg/dL Phosphorus 4.7 H (2.5-4.5) mg/dL 02/16/24 02/16/24 Range/Units 10:12 11:54 RBC (4.30-5.90) m/uL Hgb (13.0-17.5) gm/dL Hct (39.0-53.0) % MCHC (31.0-37.0) g/dL PT (10.0-12.5) sec APTT (22.0-30.0) sec VBG pH (7.31-7.41) VBG HCO3 (24-28) mmol/L Sodium (137-145) mmol/L Potassium (3.5-5.1) mmol/L Carbon Dioxide (22-30) mmol/L BUN (9-20) mg/dL Creatinine (0.66-1.25) mg/dL Glucose (74-99) mg/dL POC Glucose (mg/dL) 299 H 252 H (70-110) mg/dL Phosphorus (2.5-4.5) mg/dL Thrombosis Risk Factor Assmnt - DVT/VTE Prophylaxis DVT/VTE Prophylaxis: Pharmacologic Prophylaxis ordered Assessment and Plan Time with Patient: Less than 30
--- NOTE | 2024-02-16 13:47 | P.DS ---
Providers Date of admission: 02/16/24 06:15 Expected date of discharge: 02/16/24 Attending physician: Carter Ibarra Primary care physician: Wale Mcconnell Hospital Course: Final diagnosis Diabetes mellitus, type II, insulin-dependent uncontrolled with hyperglycemia Chronic pain Gait dysfunction and generalized weakness History of coronary artery disease GERD Hyperlipidemia Hypertension Thyroid disorder Neuropathy Depression and panic disorder history Former smoker GI prophylaxis DVT prophylaxis Full code Discharge disposition Patient is being discharged in a stable condition with guarded prognosis to [facility] where he resides. Patient will follow-up with Dr. Bell in the outpatient setting upon discharge. Patient is to continue with current insulin regimen as scheduled and adjust accordingly. Continue heart healthy consistent carb diet. Total time taken is greater than 35 minutes. Hospital course This is a 73-year-old male who was recently admitted who is awake, alert and oriented x 2-3 baseline and agitated because he feels hungry. Patient was here for hyperglycemia with a blood sugar of 506. Insulins adjusted and patient will be returning to [facility] where he resides. Recommend to continue with Accu-Cheks b efore meals and at bedtime and at 2 AM as needed and would recommend low-dose long-acting twice daily with Premeal and sliding scale. Patient to follow-up with primary care provider on discharge. Patient is medically stable for discharge to return to [facility] today. Currently no reports of chest pain, shortness of breath, or palpitations. Patient is afebrile. No reports of nausea or vomiting and patient is tolerating diet. Patient will be going to [facility] today. Guarded prognosis and high risk for readmissions. Physical exam: Gen: This is a 73-year-old male who is awake, alert and oriented x 2-3, baseline, well-developed, thin built, elderly appearing HEENT: Head is atraumatic, normocephalic. Pupils equal, round. Sclerae is anicteric. NECK: Supple. No JVD. No lymphadenopathy. No thyromegaly. LUNGS: Diminished breath sounds bilaterally otherwise clear to auscultation. No wheezes or rhonchi. No intercostal retractions. HEART: S1, S2 are muffled ABDOMEN: Soft. Bowel sounds are present. No masses. No tenderness. EXTREMITIES: No pedal edema. No calf tenderness. NEUROLOGICAL: Patient is awake, alert and oriented x2-3. Cranial nerves 2 through 12 are grossly intact. Please refer to medication reconciliation sheet for a list of medications. The impression and plan of care has been dictated by Aileen Poon, Nurse Practitioner as directed. Dr. Fred MD I have performed a history and examination and MDM of this patient, discussed the same with the dictator, and agree with the dictator's assessment and plan as written ,documented as a scribe. Based on total visit time, I have performed more than 50% of the visit. Patient Condition at Discharge: Fair Plan - Discharge Summary New Discharge Prescriptions: New INSULIN ASPART (NovoLOG) [NovoLOG (formulary)] 0 unit SQ ACHS each Insulin Detemir (Levemir) [Levemir] 13 unit SQ BID@0700,2100 each INSULIN ASPART (NovoLOG) [NovoLOG (formulary)] 8 unit SQ AC-TID each Continue Isosorbide Mononitrate ER [Imdur] 30 mg PO DAILY@0800 Pantoprazole Sodium [Protonix] 40 mg PO DAILY@0600 Ferrous Sulfate [Iron (65 MG Elemental)] 325 mg PO DAILY@1700 Aspirin [[place] Aspirin EC] 81 mg PO DAILY@1700 Ammonium Lactate Cream [Lac-Hydrin 12% Cream] 1 applic TOPICAL BID PRN PRN Reason: Dry Skin Empagliflozin [Jardiance] 25 mg PO DAILY@0800 Escitalopram [Lexapro] 10 mg PO DAILY@0800 bisacodyL [Dulcolax] 10 mg RECTAL DAILY PRN PRN Reason: Constipation Magnesium Hydroxide [Milk of Magnesia Concentrate] 7,200 mg PO Q48H PRN PRN Reason: Constipation Famotidine [Pepcid] 20 mg PO DAILY@0800 Tamsulosin HCl [Flomax] 0.4 mg PO HS Ondansetron [Zofran] 4 mg PO Q8H PRN PRN Reason: Nausea And Vomiting Folic Acid 1 mg PO DAILY@1200 tab Nystatin 100,000 Unit/gm Powd [Mycostatin Powder] 1 applic TOPICAL TID each Thiamine [Vitamin B-1] 100 mg PO BID-W/MEALS tab Multivitamins, Thera [Multivitamin (formulary)] 1 tab PO DAILY@1200 Acetaminophen [Tylenol 8 Hour] 650 mg PO Q8H PRN PRN Reason: general discomfort Atorvastatin [Lipitor] 80 mg PO HS Na Phos,M-B/Na Phos,Di-Ba [Fleet Adult] 133 ml RECTAL DAILY PRN PRN Reason: Constipation Metoprolol Tartrate [Lopressor] 50 mg PO BID@0800,1700 Liquacel 30 ml PO BID@0800,1700 Glucerna Shake 237 ml PO DAILY@1500 Phytoplex Z-Guard External Paste 57-17% 1 applic TOPICAL TUTHSA Levothyroxine Sodium [Synthroid] 150 mcg PO DAILY@0600 Cholecalciferol [Vitamin D3 (25 Mcg = 1000 Iu)] 25 mcg PO DAILY@0800 amLODIPine [Norvasc] 5 mg PO BID@0800,2000 Dulaglutide [Trulicity] 1.5 mg SQ TH Enoxaparin [Lovenox] 40 mg SQ DAILY each Benzonatate [Tessalon Perles] 100 mg PO TID PRN cap PRN Reason: Cough Gabapentin [Neurontin] 400 mg PO HS #2 cap ALPRAZolam [Xanax] 0.25 mg PO DAILY PRN PRN Reason: Anxiety Ipratropium-Albuterol Nebulize [Duoneb 0.5 mg-3 mg/3 ml Soln] 3 ml INHALATION RT-Q6H HYDROcodone/APAP 5-325MG [[place] 5-325] 1 tab PO Q4HR PRN PRN Reason: Moderate Pain (Scale 4 To 6) Discontinued INSULIN ASPART (NovoLOG) [NovoLOG (formulary)] See Protocol SQ ACHS INSULIN ASPART (NovoLOG) [NovoLOG (formulary)] 3 unit SQ TID@0800,1200,1700 Insulin Glargine [Lantus Vial] 20 unit SQ HS #0 Discharge Medication List Aspirin [[place]illa Aspirin EC] 81 mg PO DAILY@1700 03/13/19 [History] Ferrous Sulfate [Iron (65 MG Elemental)] 325 mg PO DAILY@1700 03/13/19 [History] Isosorbide Mononitrate ER [Imdur] 30 mg PO DAILY@0800 03/13/19 [History] Pantoprazole Sodium [Protonix] 40 mg PO DAILY@0600 03/13/19 [History] Ammonium Lactate Cream [Lac-Hydrin 12% Cream] 1 applic TOPICAL BID PRN 04/13/23 [History] Atorvastatin [Lipitor] 80 mg PO HS 04/13/23 [History] Empagliflozin [Jardiance] 25 mg PO DAILY@0800 04/13/23 [History] Escitalopram [Lexapro] 10 mg PO DAILY@0800 04/13/23 [History] Glucerna Shake 237 ml PO DAILY@1500 09/24/23 [History] Liquacel 30 ml PO BID@0800,1700 09/24/23 [History] Magnesium Hydroxide [Milk of Magnesia Concentrate] 7,200 mg PO Q48H PRN 09/24/23 [History] Metoprolol Tartrate [Lopressor] 50 mg PO BID@0800,1700 09/24/23 [History] Na Phos,M-B/Na Phos,Di-Ba [Fleet Adult] 133 ml RECTAL DAILY PRN 09/24/23 [History] bisacodyL [Dulcolax] 10 mg RECTAL DAILY PRN 09/24/23 [History] Cholecalciferol [Vitamin D3 (25 Mcg = 1000 Iu)] 25 mcg PO DAILY@0800 12/19/23 [History] Famotidine [Pepcid] 20 mg PO DAILY@0800 12/19/23 [History] Levothyroxine Sodium [Synthroid] 150 mcg PO DAILY@0600 12/19/23 [History] Phytoplex Z-Guard External Paste 57-17% 1 applic TOPICAL TUTHSA 12/19/23 [History] Tamsulosin HCl [Flomax] 0.4 mg PO HS 12/19/23 [History] Dulaglutide [Trulicity] 1.5 mg SQ TH 01/13/24 [History] Ondansetron [Zofran] 4 mg PO Q8H PRN 01/13/24 [History] amLODIPine [Norvasc] 5 mg PO BID@0800,2000 01/13/24 [History] Benzonatate [Tessalon Perles] 100 mg PO TID PRN cap 01/23/24 [Rx] Enoxaparin [Lovenox] 40 mg SQ DAILY each 01/23/24 [Rx] Folic Acid 1 mg PO DAILY@1200 tab 01/23/24 [Rx] Gabapentin [Neurontin] 400 mg PO HS #2 cap 01/23/24 [Rx] Nystatin 100,000 Unit/gm Powd [Mycostatin Powder] 1 applic TOPICAL TID each 01/23/24 [Rx] Thiamine [Vitamin B-1] 100 mg PO BID-W/MEALS tab 01/23/24 [Rx] ALPRAZolam [Xanax] 0.25 mg PO DAILY PRN 02/16/24 [History] Acetaminophen [Tylenol 8 Hour] 650 mg PO Q8H PRN 02/16/24 [History] HYDROcodone/APAP 5-325MG [[place] 5-325] 1 tab PO Q4HR PRN 02/16/24 [History] INSULIN ASPART (NovoLOG) [NovoLOG (formulary)] 0 unit SQ ACHS each 02/16/24 [Rx] INSULIN ASPART (NovoLOG) [NovoLOG (formulary)] 8 unit SQ AC-TID each 02/16/24 [Rx] Insulin Detemir (Levemir) [Levemir] 13 unit SQ BID@0700,2100 each 02/16/24 [Rx] Ipratropium-Albuterol Nebulize [Duoneb 0.5 mg-3 mg/3 ml Soln] 3 ml INHALATION RT-Q6H 02/16/24 [History] Multivitamins, Thera [Multivitamin (formulary)] 1 tab PO DAILY@1200 02/16/24 [History] Follow up Appointment(s)/Referral(s): Mika Bell DO [STAFF PHYSICIAN] - 1 Week [facility] [Primary Care Provider] - 1-2 days Activity/Diet/Wound Care/Special Instructions: Patient returning to [facility] Activity as tolerated Recommend monitoring Accu-Cheks before meals and at bedtime and adjust sliding scale and long-acting as needed Continue consistent carb diet Discharge Disposition: TRANSFER TO SNF/ECF
[2024-02-16 14:21] VITALS: BP 149/83; PULSE 61; RESP 16; TEMP 97.6
[2024-02-16] MEDS ORDERED: INSULIN DETEMIR (LEVEMIR) 100 UNIT/ML SYR SQ SCH (21:00)
--- NOTE | 2024-02-21 12:24 | CDI ---
Documentation Clarification Form Date: 02/21/2024 12:07:34 PM From: Johanny Chu RN, CCDS Phone: [phone] Admit Date: 02/16/2024 06:15:00 AM Patient Name: Colton Ross Visit Number: [id number] Discharge Date: 02/16/2024 03:00:00 PM ATTENTION: The Clinical Documentation Specialists (CDI) and [facility] Coding Staff appreciate your assistance in clarifying documentation. Please respond to the clarification below the line at the bottom and electronically sign. The CDI & [facility] Coding staff will review the response and follow-up if needed. Please note: Queries are made part of the Legal Health Record. If you have any questions, please contact the author of this message via ITS. Dr. Carter Ibarra There is documentation of Diabetes with hyperglycemia and abnormal lab values noted. Additional clarification is requested. History/Risk Factors: CAD, DM, GERD, HTN and thyroid disorder. Sent in from extended care facility for hyperglycemia and weakness. Clinical Indicators: 02/15 VBG Results: pH 7.28 pCO2 47 HCO3 22 02/15 Labs: Na 132, CO2 16, anion gap 12, Cr 1.44, Glucose 506, acetone negative, PO4 4.7, K+ 5.8 02/15 POC glucose: [phone] H&P: "Gait dysfunction and generalized weakness." Discharge summary: "Diabetes mellitus, type II, insulin-dependent uncontrolled with hyperglycemia." Treatment: 0.9 NS 1L IV bolus x2 on 02/15 then 0.9 NS @130mL/hr; accuchecks; Aspart insulin 6 units on 02/15; Discharge on Aspart insulin and Levemir insulin Please clarify if there is an additional diagnosis: [ x ] Hyperosmolar hyperglycemic state [ ] Metabolic acidosis [ ] Unable to determine [ ] Other, please specify MTDD
--- NOTE | 2024-02-21 12:37 | CDI ---
Documentation Clarification Form Date: 02/21/2024 12:26:03 PM From: Johanny Chu RN, CCDS Phone: [phone] Admit Date: 02/16/2024 06:15:00 AM Patient Name: Colton Ross Visit Number: [id number] Discharge Date: 02/16/2024 03:00:00 PM ATTENTION: The Clinical Documentation Specialists (CDI) and [facility] Coding Staff appreciate your assistance in clarifying documentation. Please respond to the clarification below the line at the bottom and electronically sign. The CDI & [facility] Coding staff will review the response and follow-up if needed. Please note: Queries are made part of the Legal Health Record. If you have any questions, please contact the author of this message via ITS. Dr. Carter Ibarra Your patient had and elevated Cr/BUN. Based on this information and the findings below, is there an additional diagnosis that is clinically appropriate for this patient? History/Risk Factors: CAD, DM, GERD, HTN and thyroid disorder. Sent in from [facility] care facility for hyperglycemia and weakness. Clinical Indicators: 02/15 Labs: BUN 53, Cr 1.44, GFR 48, Glucose 506, 02/15 H&P: "Gait dysfunction and generalized weakness." 02/15 Discharge summary: "Diabetes mellitus, type II, insulin-dependent uncontrolled with hyperglycemia." Treatment: 0.9 NS 1L IV bolus x2 on 02/15 then 0.9 NS @130mL/hr; Aspart insulin 6 units on 02/15; IV Zofran 4mg x1 on 02/15 Is there an additional diagnosis that is clinically appropriate for this patient? [x ] Acute Kidney Injury secondary to uncontrolled diabetes [ ] No additional diagnosis/Not clinically significant [ ] Unable to determine [ ] Other, please specify Reference: KDIGO ROSA Criteria An increase in serum creatinine by greater than or equal to 0.3 mg/dL within 48 hours; An increase in serum creatinine by greater than or equal to 1.5 times baseline, which is known or presumed to have occurred within the prior 7 days; A urine volume less than 0.5 ml/kg/h for 6 hours. When the baseline is unknown the lowest creatinine during admission assumed to be baseline MTDD
== END 2024-02-16 15:00 | DRG 638 ==
LOC: EC 04:12 → 3SCARD 06:15
PROVIDERS: ADMIT Hospitalist; ATTEND Hospitalist
DX: E11.00 Type 2 diabetes mellitus with hyperosmolarity without nonketotic hyperglycemic-hyperosmolar coma (NKHHC) (principal); N17.9 Acute kidney failure, unspecified; E07.9 Disorder of thyroid, unspecified; E11.40 Type 2 diabetes mellitus with diabetic neuropathy, unspecified; F32.A Depression, unspecified; I10 Essential (primary) hypertension; Z79.4 Long term (current) use of insulin; E78.5 Hyperlipidemia, unspecified; E87.5 Hyperkalemia; F41.0 Panic disorder [episodic paroxysmal anxiety]; G89.29 Other chronic pain; I25.10 Atherosclerotic heart disease of native coronary artery without angina pectoris; I25.2 Old myocardial infarction; K21.9 Gastro-esophageal reflux disease without esophagitis; R26.9 Unspecified abnormalities of gait and mobility; Z79.82 Long term (current) use of aspirin; Z79.85 Long-term (current) use of injectable non-insulin antidiabetic drugs; Z79.84 Long term (current) use of oral hypoglycemic drugs; Z79.890 Hormone replacement therapy; Z79.899 Other long term (current) drug therapy; Z87.891 Personal history of nicotine dependence; Z95.1 Presence of aortocoronary bypass graft; Z95.5 Presence of coronary angioplasty implant and graft; Z86.14 Personal history of Methicillin resistant Staphylococcus aureus infection; Z86.19 Personal history of other infectious and parasitic diseases
CPT/HCPCS: 36415; 80053; 82009; 82803; 83605; 83735; 84100; 84484; 85025; 85610; 85730; 93005; 96361; 96374; 96375; 99285

== ENCOUNTER 2024-03-26 14:55 | Inpatient (IN) | payer MEDICARE, BC ==
[2024-03-26] MEDS: ACETAMINOPHEN TAB 325 MG TAB PO STA (15:49)
--- NOTE | 2024-03-26 15:49 | ED ---
Wound/Laceration HPI - General Chief Complaint: Wound/Laceration Stated Complaint: L Toe Wound-wound center Time Seen by Provider: 03/26/24 15:48 Source: patient, family, RN notes reviewed Mode of arrival: wheelchair Limitations: no limitations - History of Present Illness Initial Comments: 74-year-old male presented to the ER with a chief complaint of left toe wound. Patient has a past medical history significant of diabetes mellitus. Patient being treated by wound care for the past year for multiple sores. He most recently has been treated for a left heel and great toe wound. Patient had wound cultures completed and was started on antibiotics. Patient was seen by wound care today sent to the ER and this wound has deteriorated in the past week and is failing outpatient treatment. Patient reports most of his pain is in his left foot. Patient denies any fevers, chills, nausea, vomiting, chest pain, shortness of breath, peripheral edema, or urinary complaints. - Related Data Home Medications Medication Instructions Recorded Confirmed Aspirin [[place] Aspirin EC] 81 mg PO DAILY@17003/13/19 03/26/24 Ferrous Sulfate [Iron (65 MG 325 mg PO DAILY@169903/13/19 03/26/24 Elemental)] Isosorbide Mononitrate ER [Imdur] 30 mg PO DAILY@0800 03/13/19 03/26/24 Pantoprazole Sodium [Protonix] 40 mg PO DAILY@0603/13/19 03/26/24 Ammonium Lactate Cream [Lac-Hydrin 1 applic TOPICAL BID PRN 04/13/23 03/26/24 12% Cream] Atorvastatin [Lipitor] 80 mg PO HS@2100 04/13/23 03/26/24 Empagliflozin [Jardiance] 25 mg PO DAILY@0800 04/13/23 03/26/24 Escitalopram [Lexapro] 10 mg PO DAILY@0804/13/23 03/26/24 Glucerna Shake 237 ml PO AC-SUPPER@1500 09/24/23 03/26/24 Liquacel 30 ml PO BID@0800,1700 09/24/23 03/26/24 Magnesium Hydroxide [Milk of 7,200 mg PO Q48H PRN 09/24/23 03/26/24 Magnesia Concentrate] Metoprolol Tartrate [Lopressor] 50 mg PO BID@0800,1700 09/24/23 03/26/24 Na Phos,M-B/Na Phos,Di-Ba [Fleet 133 ml RECTAL DAILY PRN 09/24/23 03/26/24 Adult] bisacodyL [Dulcolax] 10 mg RECTAL DAILY PRN 09/24/23 03/26/24 Cholecalciferol [Vitamin D3 (25 25 mcg PO DAILY@0800 12/19/23 03/26/24 Mcg = 1000 Iu)] Famotidine [Pepcid] 20 mg PO DAILY@0800 12/19/23 03/26/24 Levothyroxine Sodium [Synthroid] 150 mcg PO DAILY@0612/19/23 03/26/24 Tamsulosin HCl [Flomax] 0.4 mg PO HS@209912/19/23 03/26/24 Dulaglutide [Trulicity] 1.5 mg SQ TH 01/13/24 03/26/24 Ondansetron [Zofran] 4 mg PO Q8H PRN 01/13/24 03/26/24 amLODIPine [Norvasc] 5 mg PO BID@0800,199901/13/24 03/26/24 ALPRAZolam [Xanax] 0.25 mg PO DAILY PRN 02/16/24 03/26/24 Acetaminophen [Tylenol 8 Hour] 650 mg PO Q8H PRN 02/16/24 03/26/24 HYDROcodone/APAP 5-325MG [[place] 1 tab PO Q4HR PRN 02/16/24 03/26/24 5-325] Ipratropium-Albuterol Nebulize 3 ml INHALATION RT-Q6H 02/16/24 03/26/24 [Duoneb 0.5 mg-3 mg/3 ml Soln] Multivitamins, Thera [Multivitamin 1 tab PO DAILY@1200 02/16/24 03/26/24 (formulary)] Enoxaparin [Lovenox] 40 mg SQ DAILY@0800 03/26/24 03/26/24 Gabapentin [Neurontin] 400 mg PO HS@209903/26/24 03/26/24 INSULIN ASPART (NovoLOG) [NovoLOG 8 unit SQ TID@0800,1200,1700 03/26/24 03/26/24 (formulary)] INSULIN ASPART (NovoLOG) [NovoLOG See Protocol SQ ACHS 03/26/24 03/26/24 (formulary)] Petrolat,White/Javi/8-Hydroxyqu 1 applic TOPICAL TUTHSA 03/26/24 03/26/24 [Bag [place]] clindamycin HCL [Cleocin HCl] 300 mg PO BID@0800,2100 03/26/24 03/26/24 Previous Rx's Medication Instructions Recorded Benzonatate [Tessalon Perles] 100 mg PO TID PRN cap 01/23/24 Folic Acid 1 mg PO DAILY@1200 tab 01/23/24 Nystatin 100,000 Unit/gm Powd 1 applic TOPICAL TID each 01/23/24 [Mycostatin Powder] Thiamine [Vitamin B-1] 100 mg PO BID-W/MEALS tab 01/23/24 Insulin Detemir (Levemir) [Levemir] 13 unit SQ BID@0700,2100 each 02/16/24 Allergies Allergy/AdvReac Type Severity Reaction Status Date / Time No Known Allergies Allergy Verified 03/26/24 17:47 Review of Systems ROS Statement: Those systems with pertinent positive or pertinent negative responses have been documented in the HPI. ROS Other: All systems not noted in ROS Statement are negative. Past Medical History Past Medical History: Coronary Artery Disease (CAD), Diabetes Mellitus, GERD/Reflux, Hyperlipidemia, Hypertension, Myocardial Infarction (MT), Thyroid Disorder Additional Past Medical History / Comment(s): neuropathy, diabetic coma in 2000 and pt's sister has had legal guardianship since. Last Myocardial Infarction Date:: unknown History of Any Multi-Drug Resistant Organisms: ESBL, MRSA, MRSA Date of last positivie culture/infection: 11/23/23-MRSA; 09/25/23 ESBL MDRO Source:: Left Heel-MRSA; Blood-ESBL Past Surgical History: Appendectomy, Coronary Bypass/CABG, Heart Catheterization With Stent Additional Past Surgical History / Comment(s): Sister relays, "He had peripheral artery surgery too." Past Anesthesia/Blood Transfusion Reactions: No Reported Reaction Date of Last Stent Placement:: unknown Past Psychological History: Depression, Panic Disorder Smoking Status: Former smoker Past Alcohol Use History: Daily Past Drug Use History: Marijuana - Past Family History Father Family Medical History: Congestive Heart Failure (CHF) Mother Additional Family Medical History / Comment(s): of old age. General Exam Limitations: no limitations General appearance: alert, in no apparent distress Respiratory exam: Present: normal lung sounds bilaterally. Absent: respiratory distress, wheezes, rales, rhonchi, stridor Cardiovascular Exam: Present: regular rate, normal rhythm, normal heart sounds. Absent: systolic murmur, diastolic murmur, rubs, gallop, clicks Extremities exam: Present: normal inspection, full ROM, normal capillary refill. Absent: tenderness, pedal edema, joint swelling, calf tenderness Skin exam: Present: warm, dry, other (2 cm left heel wound with surrounding erythema. Centimeter left great toe wound with surrounding erythema and purulent drainage. There is a white purulent material over the dorsal foot. Sensation intact. Blisters on bilateral shins. 1+ bilateral dorsalis pedis pulse.) Course Vital Signs 03/26/24 03/26/24 03/26/24 15:20 16:35 20:00 Temperature 98.6 F 98.9 F 98.4 F Pulse Rate 78 76 Pulse Rate [ 90 Pulse Oximetery ] Respiratory 16 18 16 Rate Blood Pressure 174/83 142/70 Blood Pressure 150/65 [Left Arm] O2 Sat by Pulse 98 97 96 Oximetry 03/26/24 20:49 Temperature 98.4 F Pulse Rate 80 Pulse Rate [ Pulse Oximetery ] Respiratory 18 Rate Blood Pressure 151/63 Blood Pressure [Left Arm] O2 Sat by Pulse 96 Oximetry - Reevaluation(s) Reevaluation #1: 03/26/24 18:[address] Parks accepts medical admission. Medical Decision Making - Medical Decision Making Was pt. sent in by a medical professional or institution (, PA, DEPARTMENT HEAD, urgent care, hospital, or fdc...) When possible be specific @ -Patient sent by wound care for evaluation of left great toe wound. Patient recently failed outpatient oral antibiotic treatment. Did you speak to anyone other than the patient for history (EMS, parent, family, police, friend...)? What history was obtained from this source @ -Sister, legal guardian, aiding in HPI and PMHx. Did you review nursing and triage notes (agree or disagree)? Why? @ -I reviewed and agree with nursing and triage notes Were old charts reviewed (outside hosp., previous admission, EMS record, old EKG, old radiological studies, urgent care reports/EKG's, fdc records)? Report findings @ -No old charts were reviewed Differential Diagnosis (chest pain, altered mental status, abdominal pain women, abdominal pain men, vaginal bleeding, weakness, fever, dyspnea, syncope, headache, dizziness, GI bleed, back pain, seizure, CVA, palpatations, mental health, musculoskeletal)? @ -Differential Musculoskeletal Muscular strain, contusion, ligament sprain, fracture, arthritis, septic arthritis, bursitis, cellulitis, muscle spasm, nerve compression, DVT, arterial occlusion, herpes zoster, electrolyte abnormality, tumor.... This is not meant to be in all inclusive list EKG interpreted by me (3pts min.). @ -As above X-rays interpreted by me (1pt min.). @ -Left foot x-ray interpreted by me significant for soft tissue swelling of the great toe with no suspicious lytic destruction. CT interpreted by me (1pt min.). @ -None done U/S interpreted by me (1pt. min.). @ -None done What testing was considered but not performed or refused? (CT, X-rays, U/S, labs)? Why? @ -None What meds were considered but not given or refused? Why? @ -None Did you discuss the management of the patient with other professionals (professionals i.e. , PA, DEPARTMENT HEAD, lab, RT, psych nurse, social media campaign manager, hair dresser, teacher, dog license officer supervisor, briefcase sewer)? Give summary @ -Yes, case discussed with Dr. Parks, customer care representative, who accepts medical admission. Was smoking cessation discussed for >3mins.? @ -No Was critical care preformed (if so, how long)? @ -No Were there social determinants of health that impacted care today? How? (Homelessness, low income, unemployed, alcoholism, drug addiction, transportation, low edu. Level, literacy, decrease access to med. care, long term, rehab)? @ -Patient is currently residing at [facility] and his sister is legal guardian. Was there de-escalation of care discussed even if they declined (Discuss DNR or withdrawal of care, Hospice)? DNR status @ -No What co-morbidities impacted this encounter? (DM, HTN, Smoking, COPD, CAD, Cancer, CVA, ARF, Chemo, Hep., AIDS, mental health diagnosis, sleep apnea, morbid obesity)? @ -Diabetes, peripheral arterial disease Was patient admitted / discharged? Hospital course, mention meds given and route, prescriptions, significant lab abnormalities, going to OR and other pertinent info. @ -Admitted. 73-year-old male presented to the ER with a chief complaint of left great toe wound. This has been a chronic issue patient has been following up with wound care outpatient. Patient recently failed outpatient antibiotic treatment. History and physical exam completed. Vitals stable. Patient in no signs of acute distress and nontoxic-appearing. Physical exam significant for 2 cm wound to left great toe with surrounding erythema and mild purulent drainage. There is also a 2 cm wound to left heel. Large vesicle on cherry. Bilateral lower extremities neurovascular intact. Laboratory studies obtained significant for white blood cell count 7.7, hemoglobin 9.5 which appears to be baseline. Hyponatremia 135, hyperkalemia 5.8, ROSA (BUN 67, creatinine 1.80). Blood cultures and wound cultures obtained. Admission considered for cellulitis and IV antibiotics as patient recently failed outpatient treatment. Case discussed with Dr. Hayden, who accepts medical admission. ID and vascular on consult. Patient started on IV zosyn. Patient agreeable for admission. Patient admitted in stable condition. Case discussed with ED attending, Dr. Trotter. Undiagnosed new problem with uncertain prognosis? @ -No Drug Therapy requiring intensive monitoring for toxicity (Heparin, Nitro, Insulin, Cardizem)? @ -No Were any procedures done? @ -No Diagnosis/symptom? @ -Cellulitis/ROSA/hyperkalemia Acute, or Chronic, or Acute on Chronic? @ -Acute Uncomplicated (without systemic symptoms) or Complicated (systemic symptoms)? @ -Complicated Side effects of treatment? @ -No Exacerbation, Progression, or Severe Exacerbation? @ -No Poses a threat to life or bodily function? How? (Chest pain, [place], MT, pneumonia, PE, COPD, DKA, ARF, appy, cholecystitis, CVA, Diverticulitis, Homicidal, Suicidal, threat to staff... and all critical care pts) @ -Yes can lead to sepsis - Lab Data Result diagrams: 03/27/24 06:32 03/27/24 06:32 Lab Results 03/26/24 03/26/24 03/26/24 Range/Units 16:01 16:01 16:01 WBC 7.7 (3.8-10.6) k/uL RBC 3.20 L (4.30-5.90) m/uL Hgb 9.5 L D (13.0-17.5) gm/dL Hct 30.0 L (39.0-53.0) % MCV 93.5 (80.0-100.0) fL MCH 29.8 (25.0-35.0) pg MCHC 31.9 (31.0-37.0) g/dL RDW 14.4 (11.5-15.5) % Plt Count 448 (150-450) k/uL MPV 8.5 Neutrophils % 81 % Lymphocytes % 8 % Monocytes % 5 % Eosinophils % 4 % Basophils % 1 % Neutrophils # 6.3 (1.3-7.7) k/uL Lymphocytes # 0.6 L (1.0-4.8) k/uL Monocytes # 0.4 (0-1.0) k/uL Eosinophils # 0.3 (0-0.7) k/uL Basophils # 0.1 (0-0.2) k/uL Hypochromasia Slight Sodium 135 L (137-145) mmol/L Potassium 5.8 H (3.5-5.1) mmol/L Chloride 108 H (98-107) mmol/L Carbon Dioxide 18 L (22-30) mmol/L Anion Gap 9 mmol/L BUN 67 H (9-20) mg/dL Creatinine 1.80 H (0.66-1.25) mg/dL Est GFR (CKD-EPI)AfAm 42 (>60 ml/min/1.73 sqM) Est GFR (CKD-EPI)NonAf 37 (>60 ml/min/1.73 sqM) Glucose 89 (74-99) mg/dL Plasma Lactic Acid [place] 1.0 (0.7-2.0) mmol/L Calcium 9.0 (8.4-10.2) mg/dL Total Bilirubin 0.3 (0.2-1.3) mg/dL AST 19 (17-59) U/L ALT 16 (4-49) U/L Alkaline Phosphatase 134 H (38-126) U/L Total Protein 8.5 H (6.3-8.2) g/dL Albumin 4.1 (3.5-5.0) g/dL - Radiology Data Radiology results: report reviewed, image reviewed Disposition Clinical Impression: Acute kidney injury, Cellulitis Disposition: ADMITTED IP TO THIS HOSP Condition: Good Time of Disposition: 17:16
[2024-03-26 16:40] LABS: ALT 16 U/L (4-49); AST 19 U/L (17-59); African American GFR (CKD) 42 (>60 ml/min/1.73 sqM); Albumin 4.1 g/dL (3.5-5.0); Alkaline Phosphatase 134 U/L (38-126); Anion Gap 9 mmol/L; Blood Urea Nitrogen 67 mg/dL (9-20); Carbon Dioxide 18 mmol/L (22-30); Chloride 108 mmol/L (98-107); Glucose 89 mg/dL (74-99); Non-African American GFR(CKD) 37 (>60 ml/min/1.73 sqM); Potassium 5.8 mmol/L (3.5-5.1); Sodium 135 mmol/L (137-145); Total Bilirubin 0.3 mg/dL (0.2-1.3); Total Protein 8.5 g/dL (6.3-8.2)
[2024-03-26 16:46] LABS: Basophils # (A) 0.1 k/uL (0-0.2); Basophils % (A) 1 %; Eosinophils # (A) 0.3 k/uL (0-0.7); Eosinophils % (A) 4 %; HGB 9.5 gm/dL (13.0-17.5); Hypochromasia Slight; Lymphocytes # (A) 0.6 k/uL (1.0-4.8); Lymphocytes % (A) 8 %; MCH 29.8 pg (25.0-35.0); MCHC 31.9 g/dL (31.0-37.0); MCV 93.5 fL (80.0-100.0); Mean Platelet Volume 8.5; Monocytes # (A) 0.4 k/uL (0-1.0); Monocytes % (A) 5 %; Neutrophils # (A) 6.3 k/uL (1.3-7.7); Neutrophils % (A) 81 %; Platelet Count 448 k/uL (150-450); RDW 14.4 % (11.5-15.5); WBC 7.7 k/uL (3.8-10.6)
--- NOTE | 2024-03-26 17:05 | XR ---
EXAMINATION TYPE: XR foot complete 3 views LT DATE OF EXAM: 03/26/2024 Comparison: 01/12/2024 Clinical History: 73-year-old male left great toe pain, infection, wound Findings: Diffuse osteopenia. Focal pronounced areas of osteopenia that has the medial aspect of the fifth MTP joint and medial aspect of the first TMT joint appear unchanged from 01/12/2024. Soft tissue swelling especially of the great toe. Vascular calcifications suggest underlying diabetes and chronic kidney d isease. No new discrete lytic destruction is identified. Some mild periosteal bone along the posterio r calcaneus is unchanged. Lateral plate and screw fixation distal fibula. Impression: 1. Focal areas of osteopenia such as at the medial aspect of the fifth MTP joint and medial aspect of the first TMT joint remain unchanged. Subtle periostitis at the posterior calcaneus is also similar. Suggestive of chronic changes. 2. Soft tissue swelling especially of the great toe. No new areas of suspicious lytic destruction is identified for a definitive radiographic diagnosis of osteomyelitis. If persistent concern, follow-up radiograph or MRI.
[2024-03-26] MEDS: SODIUM CHLORIDE 0.9% 1,000 ML IV STA (17:16)
[2024-03-26] MEDS: ONDANSETRON 4 MG/2 ML VIAL IVP STA (17:17)
[2024-03-26] MEDS: HYDROmorphone 0.5 MG/0.5 ML SYRINGE IVP STA (17:17)
[2024-03-26] MEDS ORDERED: NALOXONE 0.4 MG/ML 1 ML VIAL IV PRN (18:35)
[2024-03-26] MEDS: PIPERACILLIN-TAZOBACTAM 3.375 GM in SODIUM CHLORIDE 0.9% 100 ML IVPB STA (19:26)
[2024-03-26] MEDS: SODIUM CHLORIDE 0.9% 1,000 ML IV SCH (19:31)
[2024-03-26] MEDS: HYDROmorphone 0.5 MG/0.5 ML SYRINGE IVP PRN (21:52)
[2024-03-26] MEDS ORDERED: AMMONIUM LACTATE 12% CREAM 140 GM TUBE TOPICAL PRN (23:05)
[2024-03-26] MEDS ORDERED: NON FORMULARY DRUG (Acetaminophen [Tylenol 8 Hour] 650 MG Tablet) PO PRN (23:05)
[2024-03-26 23:06] LABS: Glucose,Whole Blood 327 mg/dL (70-110)
[2024-03-26] MEDS ORDERED: MAGNESIUM HYDROXIDE 2,400 MG/30 ML CUP PO PRN (23:12)
[2024-03-26] MEDS ORDERED: bisacodyL 10 MG SUPP RECTAL PRN (23:12)
[2024-03-26] MEDS ORDERED: ONDANSETRON 4 MG TAB PO PRN (23:12)
[2024-03-26] MEDS ORDERED: BENZONATATE 100 MG CAP PO PRN (23:12)
[2024-03-27] MEDS: PETROLATUM, WHITE OINT 50 GM TUBE TOPICAL SCH (03:07)
[2024-03-27] MEDS: LEVOTHYROXINE 75 MCG TAB PO SCH (06:27)
[2024-03-27 07:23] LABS: Glucose,Whole Blood 450 mg/dL (70-110)
[2024-03-27] MEDS ORDERED: DEXTROSE 50% SYRINGE 50 ML IVP PRN ×2 (07:26)
[2024-03-27] MEDS: IPRATROPIUM-ALBUTEROL 3 ML NEB INHALATION SCH (07:48)
[2024-03-27] MEDS ORDERED: NON FORMULARY DRUG (Liquacel 30 ML) PO SCH (08:00)
[2024-03-27] MEDS: INSULIN DETEMIR (LEVEMIR) 100 UNIT/ML SYR SQ SCH (09:38)
[2024-03-27] MEDS: INSULIN ASPART (NovoLOG) 100 UNIT/ML VIAL SQ SCH ×2 (09:38)
[2024-03-27] MEDS: PANTOPRAZOLE 40 MG TABLET PO SCH (09:39)
[2024-03-27] MEDS: THIAMINE 100 MG TAB PO SCH (09:39)
[2024-03-27] MEDS: amLODIPine 5 MG TAB PO SCH (09:39)
[2024-03-27] MEDS: CHOLECALCIFEROL 25 MCG (1000 IU) TABLET PO SCH (09:40)
[2024-03-27] MEDS: ENOXAPARIN 40 MG/0.4 ML SYRINGE SQ SCH (09:40)
[2024-03-27] MEDS: ISOSORBIDE MONONITRATE ER 30 MG TAB.ER.24H PO SCH (09:40)
[2024-03-27] MEDS: FAMOTIDINE 20 MG TAB PO SCH (09:40)
[2024-03-27] MEDS: METOPROLOL TARTRATE 50 MG TAB PO SCH (09:40)
[2024-03-27] MEDS: ESCITALOPRAM 10 MG TAB PO SCH (09:40)
[2024-03-27] MEDS: DAPAGLIFLOZIN PROPANEDIOL 10 MG TABLET PO SCH (09:40)
[2024-03-27] MEDS: MULTIVITAMINS, THERA 1 EACH TAB PO SCH (09:41)
[2024-03-27] MEDS: NYSTATIN 100,000 UNIT/GM POWD 15 GM TOPICAL SCH (09:41)
[2024-03-27] MEDS: FOLIC ACID 1 MG TAB PO SCH (09:41)
[2024-03-27] MEDS: HYDROcodone/APAP 5-325MG 1 EACH TAB PO PRN (09:47)
[2024-03-27] MEDS: ALPRAZolam 0.25 MG TAB PO PRN (09:49)
[2024-03-27] MEDS: CLINDAMYCIN 150 MG CAP PO SCH (09:57)
[2024-03-27] MEDS ORDERED: LACTULOSE 20 GM/30 ML CUP PO PRN (10:27)
[2024-03-27] MEDS ORDERED: CALCIUM CARBONATE 500 MG CHEWABLE PO PRN (10:27)
[2024-03-27 10:31] LABS: Basophils # (A) 0.04 X 10*3/uL (0.00-0.10); Basophils % (A) 0.6 %; Eosinophils # (A) 0.14 X 10*3/uL (0.04-0.35); Eosinophils % (A) 2.2 %; HCT 31.9 % (39.6-50.0); HGB 9.6 g/dL (13.0-17.0); Lymphocytes # (A) 0.35 X 10*3/uL (0.90-5.00); Lymphocytes % (A) 5.4 %; MCH 28.9 pg (27.0-32.0); MCHC 30.1 g/dL (32.0-37.0); MCV 96.1 FL (80.0-97.0); Mean Platelet Volume 9.9 FL (9.5-12.2); Monocytes # (A) 0.58 X 10*3/uL (0.20-1.00); NRBC Per 100 WBC 0 X 10*3/uL (0.00-0.01); Neutrophils # (A) 5.32 X 10*3/uL (1.80-7.70); Neutrophils % (A) 82.3 %; Platelet Count 334 X 10*3/uL (140-440); RBC 3.32 X 10*6/uL (4.40-5.60); RDW 14.2 % (11.5-14.5); WBC 6.46 X 10*3/uL (4.50-10.00)
[2024-03-27 10:39] LABS: ALT 13 U/L (10-49); AST 13 U/L (14-35); Albumin 3.2 g/dL (3.8-4.9); Albumin/Globulin Ratio 0.82 Ratio (1.60-3.17); Alkaline Phosphatase 103 U/L (41-126); BUN/Creat Ratio 30.53 Ratio (12.00-20.00); Calcium 8.3 mg/dL (8.7-10.3); Carbon Dioxide 18.8 mmol/L (21.6-31.8); Chloride 105 mmol/L (96-109); Globulin 3.9 g/dL (1.6-3.3); Glucose 340 mg/dL (70-110); Potassium 5.5 mmol/L (3.5-5.5); Sodium 134 mmol/L (135-145); Total Bilirubin <0.2 mg/dL (0.3-1.2); Total Protein 7.1 g/dL (6.2-8.2)
--- NOTE | 2024-03-27 11:00 | XR ---
EXAMINATION TYPE: XR chest 2V DATE OF EXAM: 03/27/2024 COMPARISON: 01/12/2024 TECHNIQUE: PA and lateral views submitted. HISTORY: Presurgical FINDINGS: The lungs are clear and there is no pneumothorax, pleural effusion, or focal pneumonia. Heart size normal and no overt failure. Osseous structures demonstrate hypertrophic and degenerative changes of the spine. Post median sternotomy changes. Diffuse osteopenia and arthropathy of the shoulders. Under lying COPD and chronic interstitial lung disease suspected. Subsegmental changes left lung base most typical of scarring or atelectasis. IMPRESSION: 1. No acute process. I suspect underlying COPD and interstitial chronic lung disease such as pulmonar y fibrosis.
[2024-03-27 11:55] LABS: Glucose,Whole Blood 233 mg/dL (70-110)
[2024-03-27] MEDS ORDERED: NON FORMULARY DRUG (Glucerna Shake 1 CAN Ml) PO SCH (15:00)
--- NOTE | 2024-03-27 15:47 | P.GSCN ---
History of Present Illness Consult date: 03/27/24 Reason for Consult: Foot abscess Requesting physician: José Luis Parks History of present illness: This is a 73-year-old male who was brought in for a left foot wound. He has a past medical history of diabetes mellitus and chronic nonhealing wounds. He has seen vascular surgery in the past and has undergone debridement of his left heel twice with Dr. Romeo. He is now presenting with wound on his left foot and grea t toe along with other multiple small wounds. He does state that bilateral lower extremities are painful. There is a visible blister on the left cherry. He has had recent arterial ultrasound of the lower extremities in September 2023 with noncompressible ABIs, and monophasic waveforms with severe stenosis in the distal digits bilaterally. He denies any fevers, chills, abdominal pain, nausea or vomiting. No shortness of breath or chest pain. Wound cultures currently pending. He did spike a low-grade fever of 100.5 through the night but has been afebrile since. Review of Systems A 14 point review systems was completed all pertinent positives and negatives as stated in the HPI. Past Medical History Past Medical History: Coronary Artery Disease (CAD), Diabetes Mellitus, GERD/Reflux, Hyperlipidemia, Hypertension, Myocardial Infarction (MD), Thyroid Disorder Additional Past Medical History / Comment(s): neuropathy, diabetic coma in 2000 and pt's sister has had legal guardianship since. 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-MRSA; 09/25/23 ESBL MDRO Source:: Left Heel-MRSA; Blood-ESBL Past Surgical History: Appendectomy, Coronary Bypass/CABG, Heart Catheterization With Stent Additional Past Surgical History / Comment(s): Sister relays, "He had peripheral artery surgery too." Past Anesthesia/Blood Transfusion Reactions: No Reported Reaction Date of Last Stent Placement:: unknown Past Psychological History: Depression, Panic Disorder Smoking Status: Former smoker Past Alcohol Use History: Daily Past Drug Use History: Marijuana - Past Family History Father Family Medical History: Congestive Heart Failure (CHF) Mother Additional Family Medical History / Comment(s): of old age. Medications and Allergies Home Medications Medication Instructions Recorded Confirmed Type Aspirin [[place] Aspirin EC] 81 mg PO DAILY@1700 03/13/19 03/26/24 History Ferrous Sulfate [Iron (65 MG 325 mg PO DAILY@1700 03/13/19 03/26/24 History Elemental)] Isosorbide Mononitrate ER [Imdur] 30 mg PO DAILY@0800 03/13/19 03/26/24 History Pantoprazole Sodium [Protonix] 40 mg PO DAILY@0600 03/13/19 03/26/24 History Ammonium Lactate Cream [Lac-Hydrin 1 applic TOPICAL BID PRN 04/13/23 03/26/24 History 12% Cream] Atorvastatin [Lipitor] 80 mg PO HS@2100 04/13/23 03/26/24 History Empagliflozin [Jardiance] 25 mg PO DAILY@0800 04/13/23 03/26/24 History Escitalopram [Lexapro] 10 mg PO DAILY@0800 04/13/23 03/26/24 History Glucerna Shake 237 ml PO AC-SUPPER@1500 09/24/23 03/26/24 History Liquacel 30 ml PO BID@0800,1700 09/24/23 03/26/24 History Magnesium Hydroxide [Milk of 7,200 mg PO Q48H PRN 09/24/23 03/26/24 History Magnesia Concentrate] Metoprolol Tartrate [Lopressor] 50 mg PO BID@0800,1700 09/24/23 03/26/24 History Na Phos,M-B/Na Phos,Di-Ba [Fleet 133 ml RECTAL DAILY PRN 09/24/23 03/26/24 History Adult] bisacodyL [Dulcolax] 10 mg RECTAL DAILY PRN 09/24/23 03/26/24 History Cholecalciferol [Vitamin D3 (25 25 mcg PO DAILY@0800 12/19/23 03/26/24 History Mcg = 1000 Iu)] Famotidine [Pepcid] 20 mg PO DAILY@0800 12/19/23 03/26/24 History Levothyroxine Sodium [Synthroid] 150 mcg PO DAILY@0600 12/19/23 03/26/24 History Tamsulosin HCl [Flomax] 0.4 mg PO HS@2100 12/19/23 03/26/24 History Dulaglutide [Trulicity] 1.5 mg SQ TH 01/13/24 03/26/24 History Ondansetron [Zofran] 4 mg PO Q8H PRN 01/13/24 03/26/24 History amLODIPine [Norvasc] 5 mg PO BID@0800,2000 01/13/24 03/26/24 History Benzonatate [Tessalon Perles] 100 mg PO TID PRN cap 01/23/24 03/26/24 Rx Folic Acid 1 mg PO DAILY@1200 tab 01/23/24 03/26/24 Rx Nystatin 100,000 Unit/gm Powd 1 applic TOPICAL TID each 01/23/24 03/26/24 Rx [Mycostatin Powder] Thiamine [Vitamin B-1] 100 mg PO BID-W/MEALS tab 01/23/24 03/26/24 Rx ALPRAZolam [Xanax] 0.25 mg PO DAILY PRN 02/16/24 03/26/24 History Acetaminophen [Tylenol 8 Hour] 650 mg PO Q8H PRN 02/16/24 03/26/24 History HYDROcodone/APAP 5-325MG [[place] 1 tab PO Q4HR PRN 02/16/24 03/26/24 History 5-325] Insulin Detemir (Levemir) [Levemir] 13 unit SQ BID@0700,2100 each 02/16/24 03/26/24 Rx Ipratropium-Albuterol Nebulize 3 ml INHALATION RT-Q6H 02/16/24 03/26/24 History [Duoneb 0.5 mg-3 mg/3 ml Soln] Multivitamins, Thera [Multivitamin 1 tab PO DAILY@1200 02/16/24 03/26/24 History (formulary)] Enoxaparin [Lovenox] 40 mg SQ DAILY@0800 03/26/24 03/26/24 History Gabapentin [Neurontin] 400 mg PO HS@2100 03/26/24 03/26/24 History INSULIN ASPART (NovoLOG) [NovoLOG 8 unit SQ TID@0800,1200,1700 03/26/24 03/26/24 History (formulary)] INSULIN ASPART (NovoLOG) [NovoLOG See Protocol SQ ACHS 03/26/24 03/26/24 History (formulary)] Petrolat,White/Javi/8-Hydroxyqu 1 applic TOPICAL TUTHSA 03/26/24 03/26/24 History [Bag [place]] clindamycin HCL [Cleocin HCl] 300 mg PO BID@0800,2100 03/26/24 03/26/24 History Allergies Allergy/AdvReac Type Severity Reaction Status Date / Time No Known Allergies Allergy Verified 03/26/24 17:47 Surgical - Exam Vital Signs Temp Pulse Resp BP Pulse Ox 98.6 F 78 16 174/83 98 03/26/24 15:20 03/26/24 15:20 03/26/24 15:20 03/26/24 15:20 03/26/24 15:20 General appearance: The patient is alert, oriented, appears in no acute distress. HET: Head is normocephalic and atraumatic. Neck: Supple. Heart: Regular. Lungs: Equal expansion, normal respiratory effort. Abdomen: Soft, nondistended. Extremities: Nonpalpable PT and DP pulses bilaterally. Left lower extremity with multiple diabetic ulcers on toes, dorsal aspect of left foot with diabetic ulcer, no fluctuance or drainage noted. Great toe with ischemic changes. Toes are cool to touch with decreased capillary refill. Diabetic ulcers to left lower extremity and cherry along with a blister with clear fluid. Left heel pressure ulcer, healing. Neurological: Patient is alert and oriented to person place and time. Results - Labs 03/27/24 06:32 03/27/24 06:32 Abnormal Lab Results - Last 24 Hours (Table) 03/26/24 03/26/24 03/26/24 Range/Units 16:01 16:01 23:04 RBC 3.20 L (4.30-5.90) m/uL Hgb 9.5 L D (13.0-17.5) gm/dL Hct 30.0 L (39.0-53.0) % MCHC (32.0-37.0) g/dL Lymphocytes # 0.6 L (1.0-4.8) k/uL Sodium 135 L (137-145) mmol/L Potassium 5.8 H (3.5-5.1) mmol/L Chloride 108 H (98-107) mmol/L Carbon Dioxide 18 L (22-30) mmol/L BUN 67 H (9-20) mg/dL Creatinine 1.80 H (0.66-1.25) mg/dL Est GFR (CKD-EPI) (>=60) BUN/Creatinine Ratio (12.00-20.00) Ratio Glucose (70-110) mg/dL POC Glucose (mg/dL) 327 H (70-110) mg/dL Calcium (8.7-10.3) mg/dL Total Bilirubin (0.3-1.2) mg/dL AST (14-35) U/L Alkaline Phosphatase 134 H (38-126) U/L Total Protein 8.5 H (6.3-8.2) g/dL Albumin (3.8-4.9) g/dL Globulin (1.6-3.3) g/dL Albumin/Globulin Ratio (1.60-3.17) Ratio 03/27/24 03/27/24 03/27/24 Range/Units 06:32 06:32 07:20 RBC 3.32 L (4.30-5.90) m/uL Hgb 9.6 L (13.0-17.5) gm/dL Hct 31.9 L (39.0-53.0) % MCHC 30.1 L (32.0-37.0) g/dL Lymphocytes # 0.35 L (1.0-4.8) k/uL Sodium 134 L (137-145) mmol/L Potassium (3.5-5.1) mmol/L Chloride (98-107) mmol/L Carbon Dioxide 18.8 L (22-30) mmol/L BUN 58.0 H (9-20) mg/dL Creatinine 1.9 H (0.66-1.25) mg/dL Est GFR (CKD-EPI) 37 L (>=60) BUN/Creatinine Ratio 30.53 H (12.00-20.00) Ratio Glucose 340 H (70-110) mg/dL POC Glucose (mg/dL) 450 H (70-110) mg/dL Calcium 8.3 L (8.7-10.3) mg/dL Total Bilirubin <0.2 L (0.3-1.2) mg/dL AST 13 L (14-35) U/L Alkaline Phosphatase (38-126) U/L Total Protein (6.3-8.2) g/dL Albumin 3.2 L (3.8-4.9) g/dL Globulin 3.9 H (1.6-3.3) g/dL Albumin/Globulin Ratio 0.82 L (1.60-3.17) Ratio 03/27/24 Range/Units 11:52 RBC (4.30-5.90) m/uL Hgb (13.0-17.5) gm/dL Hct (39.0-53.0) % MCHC (32.0-37.0) g/dL Lymphocytes # (1.0-4.8) k/uL Sodium (137-145) mmol/L Potassium (3.5-5.1) mmol/L Chloride (98-107) mmol/L Carbon Dioxide (22-30) mmol/L BUN (9-20) mg/dL Creatinine (0.66-1.25) mg/dL Est GFR (CKD-EPI) (>=60) BUN/Creatinine Ratio (12.00-20.00) Ratio Glucose (70-110) mg/dL POC Glucose (mg/dL) 233 H (70-110) mg/dL Calcium (8.7-10.3) mg/dL Total Bilirubin (0.3-1.2) mg/dL AST (14-35) U/L Alkaline Phosphatase (38-126) U/L Total Protein (6.3-8.2) g/dL Albumin (3.8-4.9) g/dL Globulin (1.6-3.3) g/dL Albumin/Globulin Ratio (1.60-3.17) Ratio Microbiology - Last 24 Hours (Table) 03/26/24 16:30 Gram Stain - Preliminary Foot - Left Diabetes panel 03/26/24 03/27/24 Range/Units 16:01 06:32 Sodium 135 L 134 L (137-145) mmol/L Potassium 5.8 H 5.5 (3.5-5.1) mmol/L Chloride 108 H 105 (98-107) mmol/L Carbon Dioxide 18 L 18.8 L (22-30) mmol/L BUN 67 H 58.0 H (9-20) mg/dL Creatinine 1.80 H 1.9 H (0.66-1.25) mg/dL Glucose 89 340 H (74-99) mg/dL Calcium 9.0 8.3 L (8.4-10.2) mg/dL AST 19 13 L (17-59) U/L ALT 16 13 (4-49) U/L Alkaline Phosphatase 134 H 103 (38-126) U/L Total Protein 8.5 H 7.1 (6.3-8.2) g/dL Albumin 4.1 3.2 L (3.5-5.0) g/dL Calcium panel 03/26/24 03/27/24 Range/Units 16:01 06:32 Calcium 9.0 8.3 L (8.4-10.2) mg/dL Albumin 4.1 3.2 L (3.5-5.0) g/dL Pituitary panel 03/26/24 03/27/24 Range/Units 16:01 06:32 Sodium 135 L 134 L (137-145) mmol/L Potassium 5.8 H 5.5 (3.5-5.1) mmol/L Chloride 108 H 105 (98-107) mmol/L Carbon Dioxide 18 L 18.8 L (22-30) mmol/L BUN 67 H 58.0 H (9-20) mg/dL Creatinine 1.80 H 1.9 H (0.66-1.25) mg/dL Glucose 89 340 H (74-99) mg/dL Calcium 9.0 8.3 L (8.4-10.2) mg/dL Adrenal panel 03/26/24 03/27/24 Range/Units 16:01 06:32 Sodium 135 L 134 L (137-145) mmol/L Potassium 5.8 H 5.5 (3.5-5.1) mmol/L Chloride 108 H 105 (98-107) mmol/L Carbon Dioxide 18 L 18.8 L (22-30) mmol/L BUN 67 H 58.0 H (9-20) mg/dL Creatinine 1.80 H 1.9 H (0.66-1.25) mg/dL Glucose 89 340 H (74-99) mg/dL Calcium 9.0 8.3 L (8.4-10.2) mg/dL Total Bilirubin 0.3 <0.2 L (0.2-1.3) mg/dL AST 19 13 L (17-59) U/L ALT 16 13 (4-49) U/L Alkaline Phosphatase 134 H 103 (38-126) U/L Total Protein 8.5 H 7.1 (6.3-8.2) g/dL Albumin 4.1 3.2 L (3.5-5.0) g/dL Assessment and Plan Assessment: 1. Left lower extremity diabetic ulcers 2. Left great toe diabetic ulcer with ischemic changes 3. Peripheral arterial disease 4. History of nonhealing wounds 5. Diabetes mellitus Plan: Discussed with patient that due to extent of peripheral arterial disease, nonhealing diabetic ulcers recommendation would be for below the knee amputation. Patient is alert and oriented to person place and time and states that he does not want any surgical intervention and no amputations. Discussed with him that if infection gets severe it could kill him and he states he would rather than have any amputations. At this time we will recommend continued local wound care per wound clinic. No plans for surgical intervention, recommend outpatient follow-up if patient should change his mind. Thank you for this consultation. The impression and plan of care has been dictated as directed. Dr. Romeo I performed a history and examination of this patient, discussed the same with the dictator. I agree with the dictator's note ,documented as a scribe. Any additional findings or plans will be noted.
[2024-03-27 16:59] LABS: Glucose,Whole Blood 76 mg/dL (70-110)
[2024-03-27] MEDS: ASPIRIN 81 MG PO SCH (17:51)
[2024-03-27] MEDS: FERROUS SULFATE 325 MG TAB PO SCH (17:51)
--- NOTE | 2024-03-27 17:53 | P.HPIM ---
History of Present Illness H&P Date: 03/26/24 Chief Complaint: Left foot infection This is a 73-year-old patient, follows Dr. Bell. Patient was seen by me in the ER. Chronic stable medical condition include CAD, diabetes, GERD, hypertension, hyperlipidemia, neuropathy. CAD with bypass and stent. PAD. Depression panic disorder. Patient's sister is his legal guardian: Radha Patient presents to the ER with left foot infection. He has had different wounds and follows up with the wound care center by Dr. Fiore. He was treated for a left heel wound. Also has had a great toe wound. Patient has been having increasing pain in the left bone. Apparently drainage from the left foot. Somewhat tender. Patient's sister and daughter at the bedside. Appetite is fair. Review of systems: GEN.: Tired some decrease in appetite EYES: None HEENT: None NECK: None RESPIRATORY: None CARDIOVASCULAR: None GASTROINTESTINAL: None GENITOURINARY: None MUSCULOSKELETAL: Left foot wound LYMPHATICS: None HEMATOLOGICAL: None PSYCHIATRY: Forgetful NEUROLOGICAL: Speech is somewhat staccato, also tremors Social history: Former smoker. Patient's sister denies a legal guardian Physical examination: VITAL SIGNS: 98.6, 78, 16, 142/70, 97% room air GENERAL: BMI 24, sitting at edge of bed somewhat anxious. EYES: Pupils equal. Conjunctiva cindy l. HEENT: External appearance of nose and ears normal, oral cavity grossly normal. NECK: JVD not raised; masses not palpable. HEART: First and second heart sounds are normal; no edema. LUNGS: Respiratory rate normal; decreased breath sounds. ABDOMEN: Soft, nontender, liver spleen not palpable, no masses palpable. PSYCH: Patient is able to hold a simple conversation. Sometimes jumps from 1 topic to the other. l. MUSCULOSKELETAL:No Clubbing/cyanosis;muscles-grossly intact. Left foot is swollen. Some wounds including the dorsum. Tender. Some drainage. NEUROLOGICAL: Stuttering speech. Gross tremors.. LYMPHATICS: No lymph nodes palpable in the axilla and neck INVESTIGATIONS, reviewed in the clinical context: March 26, 2024: White count 7.7 hemoglobin 9.5 platelets 448 sodium 135 potassium 5.8 BUN 67 creatinine 1.8 EKG tracing personally reviewed by me-normal sinus rhythm. Rate 81 Left foot x-ray: Focal areas of osteopenia subtle periostitis at the posterior calcaneus. Soft tissue swelling around the great toe. Assessment plan: -Suspect abscess of the left foot and possible soft tissue deep infection. Foot is rather swollen and tender and areas of drainage. Patient has known PAD and also underlying diabetes. Previous cultures that showed growing MRSA and Pseudomonas. Patient thinks he has seen Dr. Pascal in the past. He has been consulted. Wound culture Consult ID -Hyperlipidemia Lipitor 80 mg nightly -Diabetes mellitus type 2 Follow Accu-Cheks with sliding scale Jardiance 25 mg a day Trulicity. Levemir. NovoLog -Depression Lexapro 10 mg a day -Diabetic peripheral neuropathy Neurontin 4 mg nightly -BPH Flomax 0.4 mg nightly -GERD Pepcid 20 mg a day -Hypothyroid Synthroid 150 mcg a day -Cognitive impairment -CAD with a prior history of coronary bypass and stent Lopressor 50 mg twice daily -Chronic wound to the left foot follows at the wound care center -Full code -POA, Sister Radha Care was discussed with the patient. Sister not at the bedside. Consultation to ID and vascular Dr. Pascal to whom patient status known. Given the complexity and severity of patient's condition expect the patient to be in the hospital at least for 2 overnights Past Medical History Past Medical History: Coronary Artery Disease (CAD), Diabetes Mellitus, GERD/Reflux, Hyperlipidemia, Hypertension, Myocardial Infarction (MS), Thyroid Disorder Additional Past Medical History / Comment(s): neuropathy, diabetic coma in 2000 and pt's sister has had legal guardianship since. Last Myocardial Infarction Date:: unknown History of Any Multi-Drug Resistant Organisms: ESBL, MRSA, MRSA Date of last positivie culture/infection: 11/23/23-MRSA; 09/25/23 ESBL MDRO Source:: Left Heel-MRSA; Blood-ESBL Past Surgical History: Appendectomy, Coronary Bypass/CABG, Heart Catheterization With Stent Additional Past Surgical History / Comment(s): Sister relays, "He had peripheral artery surgery too." Past Anesthesia/Blood Transfusion Reactions: No Reported Reaction Date of Last Stent Placement:: unknown Past Psychological History: Depression, Panic Disorder Smoking Status: Former smoker Past Alcohol Use History: Daily Past Drug Use History: Marijuana - Past Family History Father Family Medical History: Congestive Heart Failure (CHF) Mother Additional Family Medical History / Comment(s): of old age. Medications and Allergies Home Medications Medication Instructions Recorded Confirmed Type Aspirin [[place] Aspirin EC] 81 mg PO DAILY@1700 03/13/19 03/26/24 History Ferrous Sulfate [Iron (65 MG 325 mg PO DAILY@17003/13/19 03/26/24 History Elemental)] Isosorbide Mononitrate ER [Imdur] 30 mg PO DAILY@0800 03/13/19 03/26/24 History Pantoprazole Sodium [Protonix] 40 mg PO DAILY@0603/13/19 03/26/24 History Ammonium Lactate Cream [Lac-Hydrin 1 applic TOPICAL BID PRN 04/13/23 03/26/24 History 12% Cream] Atorvastatin [Lipitor] 80 mg PO HS@2100 04/13/23 03/26/24 History Empagliflozin [Jardiance] 25 mg PO DAILY@0800 04/13/23 03/26/24 History Escitalopram [Lexapro] 10 mg PO DAILY@0800 04/13/23 03/26/24 History Glucerna Shake 237 ml PO AC-SUPPER@1500 09/24/23 03/26/24 History Liquacel 30 ml PO BID@0800,1700 09/24/23 03/26/24 History Magnesium Hydroxide [Milk of 7,200 mg PO Q48H PRN 09/24/23 03/26/24 History Magnesia Concentrate] Metoprolol Tartrate [Lopressor] 50 mg PO BID@0800,1700 09/24/23 03/26/24 History Na Phos,M-B/Na Phos,Di-Ba [Fleet 133 ml RECTAL DAILY PRN 09/24/23 03/26/24 History Adult] bisacodyL [Dulcolax] 10 mg RECTAL DAILY PRN 09/24/23 03/26/24 History Cholecalciferol [Vitamin D3 (25 25 mcg PO DAILY@0812/19/23 03/26/24 History Mcg = 1000 Iu)] Famotidine [Pepcid] 20 mg PO DAILY@0800 12/19/23 03/26/24 History Levothyroxine Sodium [Synthroid] 150 mcg PO DAILY@0600 12/19/23 03/26/24 History Tamsulosin HCl [Flomax] 0.4 mg PO HS@2100 /20/24 05/28/24 History Dulaglutide [Trulicity] 1.5 mg SQ TH 01/13/24 03/26/24 History Ondansetron [Zofran] 4 mg PO Q8H PRN 01/13/24 03/26/24 History amLODIPine [Norvasc] 5 mg PO BID@0800,2000 01/13/24 03/26/24 History Benzonatate [Tessalon Perles] 100 mg PO TID PRN cap 01/23/24 03/26/24 Rx Folic Acid 1 mg PO DAILY@1200 tab 01/23/24 03/26/24 Rx Nystatin 100,000 Unit/gm Powd 1 applic TOPICAL TID each 01/23/24 03/26/24 Rx [Mycostatin Powder] Thiamine [Vitamin B-1] 100 mg PO BID-W/MEALS tab 01/23/24 03/26/24 Rx ALPRAZolam [Xanax] 0.25 mg PO DAILY PRN 02/16/24 03/26/24 History Acetaminophen [Tylenol 8 Hour] 650 mg PO Q8H PRN 02/16/24 03/26/24 History HYDROcodone/APAP 5-325MG [[place] 1 tab PO Q4HR PRN 02/16/24 03/26/24 History 5-325] Insulin Detemir (Levemir) [Levemir] 13 unit SQ BID@0700,2100 each 02/16/24 03/26/24 Rx Ipratropium-Albuterol Nebulize 3 ml INHALATION RT-Q6H 02/16/24 03/26/24 History [Duoneb 0.5 mg-3 mg/3 ml Soln] Multivitamins, Thera [Multivitamin 1 tab PO DAILY@1200 02/16/24 03/26/24 History (formulary)] Enoxaparin [Lovenox] 40 mg SQ DAILY@0800 03/26/24 03/26/24 History Gabapentin [Neurontin] 400 mg PO HS@209903/26/24 03/26/24 History INSULIN ASPART (NovoLOG) [NovoLOG 8 unit SQ TID@0800,1200,1700 03/26/24 03/26/24 History (formulary)] INSULIN ASPART (NovoLOG) [NovoLOG See Protocol SQ ACHS 03/26/24 03/26/24 History (formulary)] Petrolat,White/Javi/8-Hydroxyqu 1 applic TOPICAL TUTHSA 03/26/24 03/26/24 History [Bag [place]] clindamycin HCL [Cleocin HCl] 300 mg PO BID@0800,2100 03/26/24 03/26/24 History Allergies Allergy/AdvReac Type Severity Reaction Status Date / Time No Known Allergies Allergy Verified 03/26/24 17:47 Physical Exam Vitals: Vital Signs Temp Pulse Pulse Resp BP BP Pulse Ox 03/27/24 07:17 98.3 F 93 16 156/65 94 L 03/27/24 02:00 100.5 F H 107 H 16 140/80 94 L 03/26/24 22:00 18 03/26/24 20:49 98.4 F 80 18 151/63 96 03/26/24 20:00 98.4 F 90 16 150/65 96 03/26/24 16:35 98.9 F 76 18 142/70 97 03/26/24 15:20 98.6 F 78 16 174/83 98 Intake and Output 03/26/24 03/27/24 03/27/24 22:59 06:59 14:59 Intake Total 590 Balance 590 Intake: Oral 590 Other: Voiding Method Urinal # Voids 2 2 Weight 75.75 kg Results CBC & Chem 7: 03/27/24 06:32 03/27/24 06:32 Labs: Abnormal Lab Results - Last 24 Hours (Table) 03/26/24 03/26/24 03/26/24 Range/Units 16:01 16:01 23:04 RBC 3.20 L (4.30-5.90) m/uL Hgb 9.5 L D (13.0-17.5) gm/dL Hct 30.0 L (39.0-53.0) % Lymphocytes # 0.6 L (1.0-4.8) k/uL Sodium 135 L (137-145) mmol/L Potassium 5.8 H (3.5-5.1) mmol/L Chloride 108 H (98-107) mmol/L Carbon Dioxide 18 L (22-30) mmol/L BUN 67 H (9-20) mg/dL Creatinine 1.80 H (0.66-1.25) mg/dL POC Glucose (mg/dL) 327 H (70-110) mg/dL Alkaline Phosphatase 134 H (38-126) U/L Total Protein 8.5 H (6.3-8.2) g/dL 03/27/24 Range/Units 07:20 RBC (4.30-5.90) m/uL Hgb (13.0-17.5) gm/dL Hct (39.0-53.0) % Lymphocytes # (1.0-4.8) k/uL Sodium (137-145) mmol/L Potassium (3.5-5.1) mmol/L Chloride (98-107) mmol/L Carbon Dioxide (22-30) mmol/L BUN (9-20) mg/dL Creatinine (0.66-1.25) mg/dL POC Glucose (mg/dL) 450 H (70-110) mg/dL Alkaline Phosphatase (38-126) U/L Total Protein (6.3-8.2) g/dL Microbiology - Last 24 Hours (Table) 03/26/24 16:30 Gram Stain - Preliminary Foot - Left Thrombosis Risk Factor Assmnt - Choose All That Apply Any of the Below Risk Factors Present?: Yes Each Factor Represents 1 point: Swollen legs (current) Other Risk Factors: Yes Each Risk Factor Represents 2 Points: Age 61-74 years Other congenital or acquired thrombophilia - If yes, enter type in comment: No Thrombosis Risk Factor Assessment Total Risk Factor Score: 3 Thrombosis Risk Factor Assessment Level: Moderate Risk
--- NOTE | 2024-03-27 18:27 | P.PN ---
Progress Note - Text Progress Note Date: 03/27/24 Chief Complaint: Left foot infection This is a 73-year-old patient, follows Dr. Bell. Patient was seen by me in the ER. Chronic stable medical condition include CAD, diabetes, GERD, hypertension, hyperlipidemia, neuropathy. CAD with bypass and stent. PAD. Depression panic disorder. Patient's sister is his legal guardian: Radha Patient presents to the ER with left foot infection. He has had different wounds and follows up with the wound care center by Dr. Fiore. He was treated for a left heel wound. Also has had a great toe wound. Patient has been having increasing pain in the left bone. Apparently drainage from the left foot. Somewhat tender. Patient's sister and daughter at the bedside. Appetite is fair. March 27, 2024: Admitted with left foot infection deep tissue/abscess. Spoke with Dr. Pascal from vascular. He will be going out of town. Will consult Dr. Romeo from vascular. ID following. Oral intake good. Patient diabetes appears to be brittle. Follow Active Medications Acetaminophen (Acetaminophen Tab 325 Mg Tab) 650 mg PO Q6HR PRN PRN Reason: Mild Pain or Fever > 100.5 Hydrocodone Bitart/Acetaminophen (Hydrocodone/Apap 5-325mg 1 Each Tab) 1 each PO Q4HR PRN PRN Reason: Pain Last Admin: 03/27/24 14:41 Dose: 1 each Albuterol/Ipratropium (Ipratropium-Albuterol 3 Ml Neb) 3 ml INHALATION RT-Q6H [facility] Last Admin: 03/27/24 11:37 Dose: Not Given Alprazolam (Alprazolam 0.25 Mg Tab) 0.25 mg PO DAILY PRN PRN Reason: Anxiety Last Admin: 03/27/24 09:49 Dose: 0.25 mg Amlodipine Besylate (Amlodipine 5 Mg Tab) 5 mg PO BID@0800,2000 [facility] Last Admin: 03/27/24 09:39 Dose: 5 mg Aspirin (Aspirin 81 Mg) 81 mg PO DAILY@1700 [facility] Last Admin: 03/27/24 17:51 Dose: 81 mg Atorvastatin Calcium (Atorvastatin 80 Mg Tab) 80 mg PO HS@2100 [facility] Benzonatate (Benzonatate 100 Mg Cap) 100 mg PO TID PRN PRN Reason: Cough Bisacodyl (Bisacodyl 10 Mg Supp) 10 mg RECTAL DAILY PRN PRN Reason: Constipation Calcium Carbonate/Glycine (Calcium Carbonate 500 Mg Chewable) 1,000 mg PO Q4HR PRN PRN Reason: Dyspepsia Cholecalciferol (Cholecalciferol 25 Mcg (1000 Iu) Tablet) 25 mcg PO DAILY@0800 [facility] Last Admin: 03/27/24 09:51 Dose: 25 mcg Dapagliflozin (Dapagliflozin Propanediol 10 Mg Tablet) 10 mg PO DAILY@0800 [facility] Last Admin: 03/27/24 09:51 Dose: 10 mg Dextrose/Water (Dextrose 50% Syringe 50 Ml) 25 ml IVP PER PROTOCOL PRN; Protocol PRN Reason: Hypoglycemia Dextrose/Water (Dextrose 50% Syringe 50 Ml) 50 ml IVP PER PROTOCOL PRN; Protocol PRN Reason: Hypoglycemia Enoxaparin Sodium (Enoxaparin 40 Mg/0.4 Ml Syringe) 40 mg SQ DAILY@0800 [facility] Last Admin: 03/27/24 09:52 Dose: 40 mg Escitalopram Oxalate (Escitalopram 10 Mg Tab) 10 mg PO DAILY@0800 [facility] Last Admin: 03/27/24 09:51 Dose: 10 mg Famotidine (Famotidine 20 Mg Tab) 20 mg PO DAILY@0800 [facility] Last Admin: 03/27/24 09:52 Dose: 20 mg Ferrous Sulfate (Ferrous Sulfate 325 Mg Tab) 325 mg PO DAILY@1700 [facility] Last Admin: 03/27/24 17:51 Dose: 325 mg Folic Acid (Folic Acid 1 Mg Tab) 1 mg PO DAILY@1200 [facility] Last Admin: 03/27/24 09:51 Dose: 1 mg Gabapentin (Gabapentin 400 Mg Cap) 400 mg PO HS@2100 [facility] Hydromorphone HCl (Hydromorphone 0.5 Mg/0.5 Ml Syringe) 0.5 mg IVP Q3HR PRN PRN Reason: Moderate Pain (Scale 4 to 6) Last Admin: 03/27/24 14:43 Dose: 0.5 mg Sodium Chloride (Saline 0.9%) 1,000 mls @ 75 mls/hr IV .[id number] [facility] Last Admin: 03/27/24 09:58 Dose: 75 mls/hr Insulin Aspart (Insulin Aspart (Novolog) 100 Unit/Ml Vial) 8 unit SQ TID@0800,1200,1700 [facility] Last Admin: 03/27/24 17:51 Dose: Not Given Insulin Aspart (Insulin Aspart (Novolog) 100 Unit/Ml Vial) 0 unit SQ ACHS [facility]; Protocol Last Admin: 03/27/24 17:52 Dose: Not Given Insulin Detemir (Insulin Detemir (Levemir) 100 Unit/Ml Syr) 13 unit SQ BID@0700,2100 [facility] Last Admin: 03/27/24 09:38 Dose: 13 unit Isosorbide Mononitrate (Isosorbide Mononitrate Er 30 Mg Tab.Er.24h) 30 mg PO DAILY@0800 [facility] Last Admin: 03/27/24 09:52 Dose: 30 mg Lactic Acid (Ammonium Lactate 12% Cream 140 Gm Tube) 1 applic TOPICAL BID PRN; Protocol PRN Reason: Dry Skin Lactulose (Lactulose 20 Gm/30 Ml Cup) 20 gm PO DAILY PRN PRN Reason: Constipation Levothyroxine Sodium (Levothyroxine 75 Mcg Tab) 150 mcg PO DAILY@0630 [facility] Last Admin: 03/27/24 06:27 Dose: 150 mcg Magnesium Hydroxide (Magnesium Hydroxide 2,400 Mg/30 Ml Cup) 7,200 mg PO Q48H PRN PRN Reason: Constipation Melatonin (Melatonin 3 Mg Tablet) 3 mg PO HS PRN PRN Reason: Insomnia Metoprolol Tartrate (Metoprolol Tartrate 50 Mg Tab) 50 mg PO BID@0800,1700 [facility] Last Admin: 03/27/24 17:51 Dose: 50 mg Multivitamins (Multivitamins, Thera 1 Each Tab) 1 each PO DAILY@1200 [facility] Last Admin: 03/27/24 09:51 Dose: 1 each Naloxone HCl (Naloxone 0.4 Mg/Ml 1 Ml Vial) 0.2 mg IV Q2M PRN PRN Reason: Opioid Reversal Non-Formulary Medication (Dulaglutide [Trulicity]) 1.5 mg SQ TH [facility] Nystatin (Nystatin 100,000 Unit/Gm Powd 15 Gm) 1 applic TOPICAL TID [facility]; Protocol Last Admin: 03/27/24 14:41 Dose: Not Given Ondansetron HCl (Ondansetron 4 Mg Tab) 4 mg PO Q8H PRN PRN Reason: Nausea And Vomiting Pantoprazole Sodium (Pantoprazole 40 Mg Tablet) 40 mg PO -BRKFST [facility] Last Admin: 03/27/24 09:51 Dose: 40 mg Petrolatum (Petrolatum, White Oint 50 Gm Tube) 1 applic TOPICAL TUTHSA [facility]; Protocol Last Admin: 03/27/24 03:07 Dose: Not Given Tamsulosin HCl (Tamsulosin 0.4 Mg Cap.Er.24h) 0.4 mg PO HS@2100 [facility] Thiamine HCl (Thiamine 100 Mg Tab) 100 mg PO BID-W/MEALS [facility] Last Admin: 03/27/24 17:51 Dose: 100 mg Social history: Former smoker. Patient's sister denies a legal guardian Physical examination: VITAL SIGNS: 98.9, 76, 18, 142/70, 97% room air GENERAL: Slightly slightly anxious. EYES: Pupils equal. Conjunctiva cindy l. HEENT: External appearance of nose and ears normal, oral cavity grossly normal. NECK: JVD not raised; masses not palpable. HEART: First and second heart sounds are normal; no edema. LUNGS: Respiratory rate normal; decreased breath sounds. ABDOMEN: Soft, nontender, liver spleen not palpable, no masses palpable. PSYCH: Patient is able to hold a simple conversation. Sometimes jumps from 1 topic to the other. A bit anxious MUSCULOSKELETAL:No Clubbing/cyanosis;muscles-grossly intact. Left foot is swollen. Some wounds including the dorsum. Tender. Some drainage. NEUROLOGICAL: Stuttering speech. Gross tremors.. INVESTIGATIONS, reviewed in the clinical context: March 27, 2024: White count 6.4 hemoglobin 9.6 platelets 334 sodium 134 potassium 5.5 BUN 58 creatinine 1.9 blood glucose 340 March 26, 2024: White count 7.7 hemoglobin 9.5 platelets 448 sodium 135 potassium 5.8 BUN 67 creatinine 1.8 EKG tracing personally reviewed by me-normal sinus rhythm. Rate 81 Left foot x-ray: Focal areas of osteopenia subtle periostitis at the posterior calcaneus. Soft tissue swelling around the great toe. Previous labs: Creatinine 1.44 on February 15 Assessment plan: -Suspect abscess of the left foot and possible soft tissue deep infection. Foot is rather swollen and tender and areas of drainage. Patient has known PAD and also underlying diabetes. Previous cultures that showed growing MRSA and Pseudomonas.: Slow to respond Consult Dr. Romeo from vascular. Wound culture, blood culture pending ID following -Hyperlipidemia Lipitor 80 mg nightly -Diabetes mellitus type 2, uncontrolled with hyperglycemia. Brittle Follow Accu-Cheks with sliding scale Jardiance 25 mg a day Trulicity. Levemir. 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 Add Lokelma 10 mg 3 times daily -BPH Flomax 0.4 mg nightly -GERD Pepcid 20 mg a day -Hypothyroid Synthroid 150 mcg a day -Peripheral arterial disease Lipitor -Cognitive impairment -CAD with a prior history of coronary bypass and stent Lopressor 50 mg twice daily -Chronic wound to the left foot follows at the wound care center -Full code -Legal guardian, Sister Radha: Legal guardian makes all decisions for the patient. Lokelma added. Spoke to patient's Sister Radha over the phone. She makes all decisions about the patient. Patient does not make decisions. Spoke to Dr. Romeo. Patient was seen by Dr. Romeo back in May 2023. Patient's sister is okay to proceed with surgery. Dr. Romeo will speak to the sister. Have asked the nurse to place the legal documents in the chart. Timing of surgery to be f urther determined now per Dr. Romeo. [Total time spent today about 1 hour with over 40 minutes of discussion] Past Medical History Past Medical History: Coronary Artery Disease (CAD), Diabetes Mellitus, GERD/Reflux, Hyperlipidemia, Hypertension, Myocardial Infarction ([place]), Thyroid Disorder Additional Past Medical History / Comment(s): neuropathy, diabetic coma in 2000 and pt's sister has had legal guardianship since. Last Myocardial Infarction Date:: unknown History of Any Multi-Drug Resistant Organisms: ESBL, MRSA, MRSA Date of last positivie culture/infection: 11/23/23-MRSA; 09/25/23 ESBL MDRO Source:: Left Heel-MRSA; Blood-ESBL Past Surgical History: Appendectomy, Coronary Bypass/CABG, Heart Catheterization With Stent Additional Past Surgical History / Comment(s): Sister relays, "He had peripheral artery surgery too." Past Anesthesia/Blood Transfusion Reactions: No Reported Reaction Date of Last Stent Placement:: unknown Past Psychological History: Depression, Panic Disorder Smoking Status: Former smoker Past Alcohol Use History: Daily Past Drug Use History: Marijuana
[2024-03-27] MEDS: SODIUM ZIRCONIUM CYCLOSILICATE 10 GM PACKET PO SCH (18:46)
[2024-03-27 20:22] LABS: Glucose,Whole Blood 190 mg/dL (70-110)
[2024-03-27] MEDS: GABAPENTIN 400 MG CAP PO SCH (20:40)
[2024-03-27] MEDS: TAMSULOSIN 0.4 MG CAP.ER.24H PO SCH (20:41)
[2024-03-27] MEDS ORDERED: ATORVASTATIN 80 MG TAB PO SCH (21:00)
[2024-03-27] MEDS: CEFEPIME 2 GM in SODIUM CHLORIDE 0.9% 100 ML IVPB SCH (23:56)
[2024-03-28 07:10] LABS: Glucose,Whole Blood 204 mg/dL (70-110)
--- NOTE | 2024-03-28 07:10 | P.CONS ---
History of Present Illness - Reason for Consult Consult date: 03/27/24 - History of Present Illness Patient is a 73-year-old male with a past medical history significant for diabetes mellitus hypertension hyperlipidemia [place] coronary artery disease patient did have a history of left heel infected pressure ulcer with underlying osteomyelitis for the patient has completed his antibiotic therapy patient has been sent to the [facility] ER from the local jail concerning for the left big toe wound patient was seen in the wound care center and subsequently sent to the ER for antibiotic therapy concerning for wound infection patient overall has not very good historian to tell me when it started and what kind of treatment has been provided to him has been complaining of some dull aching pain unable to quantify daily for the not very sure about any trauma and denies any high-grade fever or any chills on presentation to the hospital patient was initially afebrile however he did spike a fever of 100.5 F at 2 AM patient has been afebrile since then patient was mildly tachycardic at 1 point but not hypotensive or hypoxic and no need for supplemental oxygen patient did have a white count of 7.7 BUN and creatinine has been elevated with a creatinine 1.9 liver liver enzymes are normal patient did have a x-ray of the foot focal areas of osteopenia medial aspect of the fifth MTP joint and the medial aspect of the first TMT joint remain unchanged soft tissue swelling especially of the great toe no new areas of suspicious lytic destruction is identified patient has been admitted to hospital infectious disease was consulted for further management of antibiotic therapy apparently the patient has been evaluated by vascular surgery recommending amputation with the patient has refused Past Medical History Past Medical History: Coronary Artery Disease (CAD), Diabetes Mellitus, GERD/Reflux, Hyperlipidemia, Hypertension, Myocardial Infarction ([place]), Thyroid Disorder Additional Past Medical History / Comment(s): neuropathy, diabetic coma in 2000 and pt's sister has had legal guardianship since. 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-MRSA; 09/25/23 ESBL MDRO Source:: Left Heel-MRSA; Blood-ESBL Past Surgical History: Appendectomy, Coronary Bypass/CABG, Heart Catheterization With Stent Additional Past Surgical History / Comment(s): Sister relays, "He had peripheral artery surgery too." Past Anesthesia/Blood Transfusion Reactions: No Reported Reaction Date of Last Stent Placement:: unknown Past Psychological History: Depression, Panic Disorder Smoking Status: Former smoker Past Alcohol Use History: Daily Past Drug Use History: Marijuana - Past Family History Father Family Medical History: Congestive Heart Failure (CHF) Mother Additional Family Medical History / Comment(s): of old age. Medications and Allergies Home Medications Medication Instructions Recorded Confirmed Type Aspirin [[place] Aspirin EC] 81 mg PO DAILY@1700 03/13/19 03/26/24 History Ferrous Sulfate [Iron (65 MG 325 mg PO DAILY@17003/13/19 03/26/24 History Elemental)] Isosorbide Mononitrate ER [Imdur] 30 mg PO DAILY@0800 03/13/19 03/26/24 History Pantoprazole Sodium [Protonix] 40 mg PO DAILY@0600 03/13/19 03/26/24 History Ammonium Lactate Cream [Lac-Hydrin 1 applic TOPICAL BID PRN 04/13/23 03/26/24 History 12% Cream] Atorvastatin [Lipitor] 80 mg PO HS@2100 04/13/23 03/26/24 History Empagliflozin [Jardiance] 25 mg PO DAILY@0800 04/13/23 03/26/24 History Escitalopram [Lexapro] 10 mg PO DAILY@0800 04/13/23 03/26/24 History Glucerna Shake 237 ml PO AC-SUPPER@1500 09/24/23 03/26/24 History Liquacel 30 ml PO BID@0800,1700 09/24/23 03/26/24 History Magnesium Hydroxide [Milk of 7,200 mg PO Q48H PRN 09/24/23 03/26/24 History Magnesia Concentrate] Metoprolol Tartrate [Lopressor] 50 mg PO BID@0800,1700 09/24/23 03/26/24 History Na Phos,M-B/Na Phos,Di-Ba [Fleet 133 ml RECTAL DAILY PRN 09/24/23 03/26/24 History Adult] bisacodyL [Dulcolax] 10 mg RECTAL DAILY PRN 09/24/23 03/26/24 History Cholecalciferol [Vitamin D3 (25 25 mcg PO DAILY@0800 12/19/23 03/26/24 History Mcg = 1000 Iu)] Famotidine [Pepcid] 20 mg PO DAILY@0800 12/19/23 03/26/24 History Levothyroxine Sodium [Synthroid] 150 mcg PO DAILY@0600 12/19/23 03/26/24 History Tamsulosin HCl [Flomax] 0.4 mg PO HS@209912/19/23 03/26/24 History Dulaglutide [Trulicity] 1.5 mg SQ TH 01/13/24 03/26/24 History Ondansetron [Zofran] 4 mg PO Q8H PRN 01/13/24 03/26/24 History amLODIPine [Norvasc] 5 mg PO BID@0800,199901/13/24 03/26/24 History Benzonatate [Tessalon Perles] 100 mg PO TID PRN cap 01/23/24 03/26/24 Rx Folic Acid 1 mg PO DAILY@1200 tab 01/23/24 03/26/24 Rx Nystatin 100,000 Unit/gm Powd 1 applic TOPICAL TID each 01/23/24 03/26/24 Rx [Mycostatin Powder] Thiamine [Vitamin B-1] 100 mg PO BID-W/MEALS tab 01/23/24 03/26/24 Rx ALPRAZolam [Xanax] 0.25 mg PO DAILY PRN 02/16/24 03/26/24 History Acetaminophen [Tylenol 8 Hour] 650 mg PO Q8H PRN 02/16/24 03/26/24 History HYDROcodone/APAP 5-325MG [[place] 1 tab PO Q4HR PRN 02/16/24 03/26/24 History 5-325] Insulin Detemir (Levemir) [Levemir] 13 unit SQ BID@0700,2100 each 02/16/24 03/26/24 Rx Ipratropium-Albuterol Nebulize 3 ml INHALATION RT-Q6H 02/16/24 03/26/24 History [Duoneb 0.5 mg-3 mg/3 ml Soln] Multivitamins, Thera [Multivitamin 1 tab PO DAILY@1200 02/16/24 03/26/24 History (formulary)] Enoxaparin [Lovenox] 40 mg SQ DAILY@0800 03/26/24 03/26/24 History Gabapentin [Neurontin] 400 mg PO HS@2100 03/26/24 03/26/24 History INSULIN ASPART (NovoLOG) [NovoLOG 8 unit SQ TID@0800,1200,1700 03/26/24 03/26/24 History (formulary)] INSULIN ASPART (NovoLOG) [NovoLOG See Protocol SQ ACHS 03/26/24 03/26/24 History (formulary)] Petrolat,White/Javi/8-Hydroxyqu 1 applic TOPICAL TUTHSA 03/26/24 03/26/24 History [Bag [place]] clindamycin HCL [Cleocin HCl] 300 mg PO BID@0800,2100 03/26/24 03/26/24 History Allergies Allergy/AdvReac Type Severity Reaction Status Date / Time No Known Allergies Allergy Verified 03/26/24 17:47 Physical Exam Vitals: Vital Signs Temp Pulse Pulse Resp BP BP Pulse Ox 03/27/24 11:47 98.4 F 87 16 134/60 96 03/27/24 08:40 93 16 03/27/24 07:17 98.3 F 93 16 156/65 94 L 03/27/24 02:00 100.5 F H 107 H 16 140/80 94 L 03/26/24 22:00 18 03/26/24 20:49 98.4 F 80 18 151/63 96 03/26/24 20:00 98.4 F 90 16 150/65 96 Intake and Output 03/27/24 03/27/24 03/27/24 06:59 14:59 22:59 Intake Total 590 Balance 590 Intake: Oral 590 Other: Voiding Method Urinal # Voids 2 4 Results CBC & Chem 7: 03/27/24 06:32 03/27/24 06:32 Labs: Abnormal Lab Results - Last 24 Hours (Table) 03/26/24 03/27/24 03/27/24 Range/Units 23:04 06:32 06:32 RBC 3.32 L (4.40-5.60) X 10*6/uL Hgb 9.6 L (13.0-17.0) g/dL Hct 31.9 L (39.6-50.0) % MCHC 30.1 L (32.0-37.0) g/dL Lymphocytes # 0.35 L (0.90-5.00) X 10*3/uL Sodium 134 L (135-145) mmol/L Carbon Dioxide 18.8 L (21.6-31.8) mmol/L BUN 58.0 H (9.0-27.0) mg/dL Creatinine 1.9 H (0.6-1.5) mg/dL Est GFR (CKD-EPI) 37 L (>=60) BUN/Creatinine Ratio 30.53 H (12.00-20.00) Ratio Glucose 340 H (70-110) mg/dL POC Glucose (mg/dL) 327 H (70-110) mg/dL Calcium 8.3 L (8.7-10.3) mg/dL Total Bilirubin <0.2 L (0.3-1.2) mg/dL AST 13 L (14-35) U/L Albumin 3.2 L (3.8-4.9) g/dL Globulin 3.9 H (1.6-3.3) g/dL Albumin/Globulin Ratio 0.82 L (1.60-3.17) Ratio 03/27/24 03/27/24 Range/Units 07:20 11:52 RBC (4.40-5.60) X 10*6/uL Hgb (13.0-17.0) g/dL Hct (39.6-50.0) % MCHC (32.0-37.0) g/dL Lymphocytes # (0.90-5.00) X 10*3/uL Sodium (135-145) mmol/L Carbon Dioxide (21.6-31.8) mmol/L BUN (9.0-27.0) mg/dL Creatinine (0.6-1.5) mg/dL Est GFR (CKD-EPI) (>=60) BUN/Creatinine Ratio (12.00-20.00) Ratio Glucose (70-110) mg/dL POC Glucose (mg/dL) 450 H 233 H (70-110) mg/dL Calcium (8.7-10.3) mg/dL Total Bilirubin (0.3-1.2) mg/dL AST (14-35) U/L Albumin (3.8-4.9) g/dL Globulin (1.6-3.3) g/dL Albumin/Globulin Ratio (1.60-3.17) Ratio Microbiology - Last 24 Hours (Table) 03/26/24 16:30 Gram Stain - Preliminary Foot - Left Assessment and Plan Plan: 1patient being admitted to the hospital with worsening wound to the left big toe in this patient with underlying history of diabetes mellitus and also a history left heel osteomyelitis for the patient has completed antibiotic therapy patient has shown overall improvement in almost healing of the left heel wound now with wound to the left big toe has some superficial solution to the left foot concerning for diabetic foot wound and secondary cellulitis will need to call for the resistant gram-positive as well as gram-negative pathogen as the patient has previously grown MRSA and Pseudomonas 2-patient with renal insufficiency and high risk of nephrotoxicity from vancomycin 3-local culture has been obtained and results will be followed 4-we will start patient on cefepime and daptomycin while waiting for the culture to finalize We will follow on clinical condition and cultures to further adjust medication if needed Thank you for this consultation we will follow the patient along with you Dictation was produced using [employer] dictation software. please excuse any grammatical, word or spelling errors. Time with Patient: Greater than 30
[2024-03-28] MEDS: NON FORMULARY DRUG (Dulaglutide [Trulicity] 1.5 MG/0.5 ML Each) SQ SCH (08:25)
--- NOTE | 2024-03-28 11:57 | P.PN ---
Subjective Progress Note Date: 03/28/24 Principal diagnosis: Left lower extremity nonhealing wounds, peripheral arterial disease Patient was seen and examined today as a follow-up. He is laying in bed with his legs hanging over the side. He states that that relieves his pain. States he has pain in both lower extremities left more than right and greatest in his left great toe. He denies any shortness of breath, chest pain, fevers or chills. No abdominal pain, nausea or vomiting. He remains afebrile. No leuko cytosis. Wound culture and blood culture pending. Objective - Vital Signs Vital signs: Vital Signs Temp 98.1 F 03/28/24 07:00 Pulse 78 03/28/24 07:00 Resp 16 03/28/24 07:00 BP 178/79 03/28/24 07:00 Pulse Ox 97 03/28/24 07:00 FiO2 Intake & Output 03/27/24 03/28/24 03/28/24 18:59 06:59 18:59 Intake Total 360 1350 Output Total 600 Balance -240 1350 Intake: Intake, IV Titration 750 Amount Cefepime 2 gm In Sodium 100 Chloride 0.9% 100 ml @ 25 mls/hr IVPB Q12H [facility] Rx# :[id number] DAPTOmycin 300 mg In 50 Sodium Chloride 0.9% 50 ml @ 100 mls/hr IVPB Q24H [facility] Rx#:[id number] Sodium Chloride 0.9% 1, 600 000 ml @ 75 mls/hr IV . [id number] [facility] Rx#:[id number] Oral 360 600 Output: Urine 600 Other: Voiding Method Urinal Urinal # Voids 2 3 - Exam General appearance: The patient is alert, oriented, appears in no acute distre ss. HET: Head is normocephalic and atraumatic. Neck: Supple. Heart: Regular. Lungs: Equal expansion, normal respiratory effort. Abdomen: Soft, nondistended. Extremities: Nonpalpable PT and DP pulses bilaterally. Left lower extremity with multiple diabetic ulcers on toes, dorsal aspect of left foot with diabetic ulcer, no fluctuance or drainage noted. Great toe with ischemic changes. Toes are cool to touch with decreased capillary refill. Diabetic ulcers to left lower extremity and cherry along with a blister with clear fluid. Left heel pressure ulcer, healing. Neurological: Patient is alert and oriented to person place and time. - Labs CBC & Chem 7: 03/27/24 06:32 03/27/24 06:32 Labs: Abnormal Lab Results - Last 24 Hours (Table) 03/27/24 03/27/24 03/27/24 Range/Units 06:32 06:32 11:52 RBC 3.32 L (4.40-5.60) X 10*6/uL Hgb 9.6 L (13.0-17.0) g/dL Hct 31.9 L (39.6-50.0) % MCHC 30.1 L (32.0-37.0) g/dL Lymphocytes # 0.35 L (0.90-5.00) X 10*3/uL Sodium 134 L (135-145) mmol/L Carbon Dioxide 18.8 L (21.6-31.8) mmol/L BUN 58.0 H (9.0-27.0) mg/dL Creatinine 1.9 H (0.6-1.5) mg/dL Est GFR (CKD-EPI) 37 L (>=60) BUN/Creatinine Ratio 30.53 H (12.00-20.00) Ratio Glucose 340 H (70-110) mg/dL POC Glucose (mg/dL) 233 H (70-110) mg/dL Calcium 8.3 L (8.7-10.3) mg/dL Total Bilirubin <0.2 L (0.3-1.2) mg/dL AST 13 L (14-35) U/L Albumin 3.2 L (3.8-4.9) g/dL Globulin 3.9 H (1.6-3.3) g/dL Albumin/Globulin Ratio 0.82 L (1.60-3.17) Ratio 03/27/24 03/28/24 Range/Units 20:19 07:08 RBC (4.40-5.60) X 10*6/uL Hgb (13.0-17.0) g/dL Hct (39.6-50.0) % MCHC (32.0-37.0) g/dL Lymphocytes # (0.90-5.00) X 10*3/uL Sodium (135-145) mmol/L Carbon Dioxide (21.6-31.8) mmol/L BUN (9.0-27.0) mg/dL Creatinine (0.6-1.5) mg/dL Est GFR (CKD-EPI) (>=60) BUN/Creatinine Ratio (12.00-20.00) Ratio Glucose (70-110) mg/dL POC Glucose (mg/dL) 190 H 204 H (70-110) mg/dL Calcium (8.7-10.3) mg/dL Total Bilirubin (0.3-1.2) mg/dL AST (14-35) U/L Albumin (3.8-4.9) g/dL Globulin (1.6-3.3) g/dL Albumin/Globulin Ratio (1.60-3.17) Ratio Microbiology - Last 24 Hours (Table) 03/26/24 16:10 Blood Culture - Preliminary Blood 03/26/24 15:55 Blood Culture - Preliminary Blood 03/26/24 16:30 Gram Stain - Preliminary Foot - Left Assessment and Plan Assessment: 1. Left lower extremity chronic nonhealing diabetic ulcers 2. Left great toe diabetic ulcer with ischemic changes 3. Peripheral arterial disease with history of revascularization and bypass 4. History of nonhealing wounds 5. Diabetes mellitus Plan: Discussed with patient that due to extent of peripheral arterial disease, nonhealing diabetic ulcers recommendation would be for below the knee amputation. Today also discussed with patient possibly doing angiogram to further evaluate blood flow. Patient states he does not want any intervention or surgery done. He states that he does not care if he is in pain he just wants to go back to [facility]. Patient is alert and oriented to person place and time and states that he does not want any surgical intervention and no amputations. Discussed with him that if he gets an infection and it gets severe it could kill him and he states "I would rather than have any amputations". There is no evidence of bacteremia at this time and no sepsis. There is no urgency to any surgical intervention. Continue local wound care. Recommend offloading boots for heel protection. Patient apparently has a legal guardian his Sister German Ross. Documentation reviewed in chart. Dated from December 16, 2014. Unclear as to why patient has a legal guardian. His legal guardian German ross was called and a message was left for her to return call to discuss plan of care for Mr. Ross moving forward. In the meantime spoke with social work, may need to look further into guardianship. No plans on surgery at this time. Further recommendations forthcoming based on clinical course. Thank you for this consultation. The impression and plan of care has been dictated as directed. Dr. Romeo I performed a history and examination of this patient, discussed the same with the dictator. I agree with the dictator's note ,documented as a scribe. Any additional findings or plans will be noted.
[2024-03-28 12:15] LABS: Glucose,Whole Blood 73 mg/dL (70-110)
--- NOTE | 2024-03-28 12:55 | P.CONS ---
History of Present Illness - Reason for Consult Consult date: 03/28/24 wound care - History of Present Illness This is a 73-year-old patient known to the wound care center with nonhealing ulcerations to bilateral lower extremities. Patient was seen on Monday in the wound care center with a new ulceration to the left great toe that appeared necrotic and was sent to the emergency room for evaluation. We have been utilizing Santyl to the ulcerations. However patient continues to have signi ficant amount of pain and discomfort. Patient is often noncompliant. Original cause of wound was Pressure Injury. The date acquired was: 06/20/2023. The wound has been in treatment 40 weeks. The wound is currently classified as a Grade 3 wound with etiologies of Diabetic Wound/Ulcer of the Lower Extremity and Pressure Ulcer and is located on the Left Calcaneus. The wound measures 2.8cm length x 2.5cm width x 0.2cm depth; 5.498cm^2 area and 1.1cm^3 volume. There is Fat Layer (Subcutaneous Tissue) exposed. There is no tunneling or undermining noted. There is a large amount of serosanguineous drainage noted. The wound margin is flat and intact. There is large (67-100%) pink granulation within the wound bed. There is a small (1-33%) amount of necrotic tissue within the wound bed including Adherent Slough. The periwound skin appearance exhibited: Callus, Scarring, Maceration, Erythema. The periwound skin appearance did not exhibit: Crepitus, Excoriation, Induration, Rash, Dry/Scaly, Atrophie [place], Cyanosis, Ecchymosis, Hemosiderin Staining, Mottled, Pallor, Rubor. The surrounding wound skin color is noted with erythema which is circumferential. Periwound temperature was noted as No Abnormality. The periwound has tenderness on palpation. Wound #10 status is Open. Original cause of wound was Blister. The date acquired was: 02/27/2024. The wound has been in treatment 4 weeks. The wound is currently classified as a Grade 2 wound with etiology of Diabetic Wound/Ulcer of the Lower Extremity and is located on the Left,Distal,Dorsal Foot. The wound measures 6.3cm length x 4cm width x 0.1cm depth; 19.792cm^2 area and 1.979cm^3 volume. There is Fat Layer (Subcutaneous Tissue) exposed. There is no tunneling or undermining noted. There is a large amount of purulent drainage noted. The wound margin is indistinct and nonvisible. There is small (1-33%) pink granulation within the wound bed. There is a large (67-100%) amount of necrotic tissue within the wound bed including Eschar and Adherent Slough. The periwound skin appearance exhibited: Scarring, Maceration, Erythema. The periwound skin appearance did not exhibit: Callus, Crepitus, Excoriation, Induration, Rash, Dry/Scaly, Atrophie [place], Cyanosis, Ecchymosis, Hemosiderin Staining, Mottled, Pallor, Rubor. The surrounding wound skin color is noted with erythema which is circumferential. Periwound temperature was noted as No Abnormality. Wound #12 status is Open. Original cause of wound was Gradually Appeared. The date acquired was: 02/28/2024. The wound has been in treatment 3 weeks. The wound is currently classified as a Grade 2 wound with etiology of Diabetic Wound/Ulcer of the Lower Extremity and is located on the Left,Medial,Posterior Foot. The wound measures 1.1cm length x 1cm width x 0.1cm depth; 0.864cm^2 area and 0.086cm^3 volume. There is Fat Layer (Subcutaneous Tissue) exposed. There is no tunneling or undermining noted. There is a small amount of serous drainage noted. The wound margin is distinct with the outline attached to the wound base. There is large (67-100%) pink granulation within the wound bed. There is a small (1-33%) amount of necrotic tissue within the wound bed including Adherent Slough. The periwound skin appearance exhibited: Erythema. The periwound skin appearance did not exhibit: Callus, Crepitus, Excoriation, Induration, Rash, Scarring, Dry/Scaly, Maceration, Atrophie [place], Cyanosis, Ecchymosis, Hemosiderin Staining, Mottled, Pallor, Rubor. The surrounding wound skin color is noted with erythema which is circumferential. Periwound temperature was noted as No Abnormality. Wound #13 status is Open. Original cause of wound was Gradually Appeared. The date acquired was: 03/12/2024. The wound has been in treatment 1 weeks. The wound is currently classified as a Grade 2 wound with etiology of Diabetic Wound/Ulcer of the Lower Extremity and is located on the Left,Dorsal Toe Great. The wound measures 3cm length x 2.7cm width x 0.1cm depth; 6.362cm^2 area and 0.636cm^3 volume. There is Fat Layer (Subcutaneous Tissue) exposed. There is no tunneling or undermining noted. There is a large amount of purulent drainage noted. Foul odor after cleansing was noted. The wound margin is indistinct and nonvisible. There is no granulation within the wound bed. There is a large (67-100%) amount of necrotic tissue within the wound bed including Eschar and Adherent Slough. The periwound skin appearance exhibited: Maceration, Erythema. The periwound skin appearance did not exhibit: Callus, Crepitus, Excoriation, Induration, Rash, Scarring, Dry/Scaly, Atrophie [place], Cyanosis, Ecchymosis, Hemosiderin Staining, Mottled, Pallor, Rubor. The surrounding wound skin color is noted with erythema which is circumferential. Periwound temperature was noted as No Abnormality. The periwound has tenderness on palpation. Wound #7 status is Open. Original cause of wound was Gradually Appeared. The date acquired was: 02/06/2024. The wound has been in treatment 7 weeks. The wound is currently classified as a Grade 2 wound with etiology of Diabetic Wound/Ulcer of the Lower Extremity and is located on the Left,Dorsal Foot. The wound measures 1.7cm length x 1.1cm width x 0.1cm depth; 1.469cm^2 area and 0.147cm^3 volume. There is Fat Layer (Subcutaneous Tissue) exposed. There is no tunneling or undermining noted. There is a medium amount of serosanguineous drainage noted. The wound margin is indistinct and nonvisible. There is small (1-33%) red granulation within the wound bed. There is a large (67-100%) amount of necrotic tissue within the wound bed including Adherent Slough. The periwound skin appearance exhibited: Scarring, Maceration, Erythema. The periwound skin irma earance did not exhibit: Callus, Crepitus, Excoriation, Induration, Rash, Dry/Scaly, Atrophie [place], Cyanosis, Ecchymosis, Hemosiderin Staining, Mottled, Pallor, Rubor. The surrounding wound skin color is noted with erythema which is circumferential. Periwound temperature was noted as No Abnormality. Wound #8 status is Open. Original cause of wound was Gradually Appeared. The date acquired was: 02/06/2024. The wound has been in treatment 7 weeks. The wound is currently classified as a Grade 2 wound with etiology of Diabetic Wound/Ulcer of the Lower Extremity and is located on the Left,Anterior Lower Leg. The wound measures 2cm length x 2cm width x 0.1cm depth; 3.142cm^2 area and 0.314cm^3 v olume. There is Fat Layer (Subcutaneous Tissue) exposed. There is no tunneling or undermining noted. There is a small amount of serosanguineous drainage noted. The wound margin is indistinct and nonvisible. There is large (67-100%) pink granulation within the wound bed. There is a small (1-33%) amount of necrotic tissue within the wound bed. The periwound skin appearance exhibited: Scarring, Dry/Scaly, Erythema. The periwound skin appearance did not exhibit: Callus, Crepitus, Excoriation, Induration, Rash, Maceration, Atrophie [place], Cyanosis, Ecchymosis, Hemosiderin Staining, Mottled, Pallor, Rubor. The surrounding wound skin color is noted with erythema which is circumferential. Periwound temperature was noted as No Abnormality. Review Of Systems: Constitutional: No fever, no chills, no night sweats. No weight change. No weakness, fatigue or lethargy. No daytime sleepiness. Integumentary:reports wounds, no lesions. No rash or pruritus. No unusual bruising. No change in hair or nails. Physical exam: General Appearance: Alert, cooperative, no distress, appears stated age. Skin: See HPI all other Skin color, texture, tugor normal, no rashes or lesions. Neurologic: Alert oriented x3 Assessment: 1. Arthrosclerosis with ulcerations to the left foot and left calf 2. Stage III pressure ulcer left heel 3. Osteomyelitis 4. Diabetic foot ulcer Plan: 1. Apply Santyl to all open ulcerations, saline moist gauze, dry gauze, rolled gauze and secure with tape. Change daily. Patient return to the wound care center next week Thank you for the consultation any questions please contact the wound care center DNP note has been reviewed and discussed with Dr. Ramos and the impression and plan of care has been directed as dictated. Past Medical History Past Medical History: Coronary Artery Disease (CAD), Diabetes Mellitus, GERD/Reflux, Hyperlipidemia, Hypertension, Myocardial Infarction (AR), Thyroid Disorder Additional Past Medical History / Comment(s): neuropathy, diabetic coma in 2000 and pt's sister has had legal guardianship since. 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-MRSA; 09/25/23 ESBL MDRO Source:: Left Heel-MRSA; Blood-ESBL Past Surgical History: Appendectomy, Coronary Bypass/CABG, Heart Catheterization With Stent Additional Past Surgical History / Comment(s): Sister relays, "He had peripheral artery surgery too." Past Anesthesia/Blood Transfusion Reactions: No Reported Reaction Date of Last Stent Placement:: unknown Past Psychological History: Depression, Panic Disorder Smoking Status: Former smoker Past Alcohol Use History: Daily Past Drug Use History: Marijuana - Past Family History Father Family Medical History: Congestive Heart Failure (CHF) Mother Additional Family Medical History / Comment(s): of old age. Medications and Allergies Home Medications Medication Instructions Recorded Confirmed Type Aspirin [[place] Aspirin EC] 81 mg PO DAILY@169903/13/19 03/26/24 History Ferrous Sulfate [Iron (65 MG 325 mg PO DAILY@169903/13/19 03/26/24 History Elemental)] Isosorbide Mononitrate ER [Imdur] 30 mg PO DAILY@0803/13/19 03/26/24 History Pantoprazole Sodium [Protonix] 40 mg PO DAILY@0603/13/19 03/26/24 History Ammonium Lactate Cream [Lac-Hydrin 1 applic TOPICAL BID PRN 04/13/23 03/26/24 History 12% Cream] Atorvastatin [Lipitor] 80 mg PO HS@2100 04/13/23 03/26/24 History Empagliflozin [Jardiance] 25 mg PO DAILY@0800 04/13/23 03/26/24 History Escitalopram [Lexapro] 10 mg PO DAILY@0800 04/13/23 03/26/24 History Glucerna Shake 237 ml PO AC-SUPPER@1500 09/24/23 03/26/24 History Liquacel 30 ml PO BID@0800,1700 09/24/23 03/26/24 History Magnesium Hydroxide [Milk of 7,200 mg PO Q48H PRN 09/24/23 03/26/24 History Magnesia Concentrate] Metoprolol Tartrate [Lopressor] 50 mg PO BID@0800,1700 09/24/23 03/26/24 History Na Phos,M-B/Na Phos,Di-Ba [Fleet 133 ml RECTAL DAILY PRN 09/24/23 03/26/24 History Adult] bisacodyL [Dulcolax] 10 mg RECTAL DAILY PRN 09/24/23 03/26/24 History Cholecalciferol [Vitamin D3 (25 25 mcg PO DAILY@0800 12/19/23 03/26/24 History Mcg = 1000 Iu)] Famotidine [Pepcid] 20 mg PO DAILY@0800 12/19/23 03/26/24 History Levothyroxine Sodium [Synthroid] 150 mcg PO DAILY@0600 12/19/23 03/26/24 History Tamsulosin HCl [Flomax] 0.4 mg PO HS@2100 12/19/23 03/26/24 History Dulaglutide [Trulicity] 1.5 mg SQ TH 01/13/24 03/26/24 History Ondansetron [Zofran] 4 mg PO Q8H PRN 01/13/24 03/26/24 History amLODIPine [Norvasc] 5 mg PO BID@0800,2000 01/13/24 03/26/24 History Benzonatate [Tessalon Perles] 100 mg PO TID PRN cap 01/23/24 03/26/24 Rx Folic Acid 1 mg PO DAILY@1200 tab 01/23/24 03/26/24 Rx Nystatin 100,000 Unit/gm Powd 1 applic TOPICAL TID each 01/23/24 03/26/24 Rx [Mycostatin Powder] Thiamine [Vitamin B-1] 100 mg PO BID-W/MEALS tab 01/23/24 03/26/24 Rx ALPRAZolam [Xanax] 0.25 mg PO DAILY PRN 02/16/24 03/26/24 History Acetaminophen [Tylenol 8 Hour] 650 mg PO Q8H PRN 02/16/24 03/26/24 History HYDROcodone/APAP 5-325MG [[place] 1 tab PO Q4HR PRN 02/16/24 03/26/24 History 5-325] Insulin Detemir (Levemir) [Levemir] 13 unit SQ BID@0700,2100 each 02/16/24 03/26/24 Rx Ipratropium-Albuterol Nebulize 3 ml INHALATION RT-Q6H 02/16/24 03/26/24 History [Duoneb 0.5 mg-3 mg/3 ml Soln] Multivitamins, Thera [Multivitamin 1 tab PO DAILY@1200 02/16/24 03/26/24 History (formulary)] Enoxaparin [Lovenox] 40 mg SQ DAILY@0800 03/26/24 03/26/24 History Gabapentin [Neurontin] 400 mg PO HS@2100 03/26/24 03/26/24 History INSULIN ASPART (NovoLOG) [NovoLOG 8 unit SQ TID@0800,1200,1700 03/26/24 03/26/24 History (formulary)] INSULIN ASPART (NovoLOG) [NovoLOG See Protocol SQ ACHS 03/26/24 03/26/24 History (formulary)] Petrolat,White/Javi/8-Hydroxyqu 1 applic TOPICAL TUTHSA 03/26/24 03/26/24 History [Bag [place]] clindamycin HCL [Cleocin HCl] 300 mg PO BID@0800,2100 03/26/24 03/26/24 History Allergies Allergy/AdvReac Type Severity Reaction Status Date / Time No Known Allergies Allergy Verified 03/26/24 17:47 Physical Exam Vitals: Vital Signs Temp Pulse Resp BP Pulse Ox 03/28/24 12:08 97.8 F 71 16 136/63 98 03/28/24 08:40 78 16 03/28/24 07:00 98.1 F 78 16 178/79 97 03/28/24 02:00 98 F 90 16 143/61 92 L 03/27/24 20:00 98.3 F 63 16 111/57 90 L Intake and Output 03/27/24 03/28/24 03/28/24 22:59 06:59 14:59 Intake Total 360 1350 Output Total 600 Balance -240 1350 Intake: Intake, IV Titration 750 Amount Cefepime 2 gm In Sodium 100 Chloride 0.9% 100 ml @ 25 mls/hr IVPB Q12H [facility] Rx# :[id number] DAPTOmycin 300 mg In 50 Sodium Chloride 0.9% 50 ml @ 100 mls/hr IVPB Q24H [facility] Rx#:[id number] Sodium Chloride 0.9% 1, 600 000 ml @ 75 mls/hr IV . [id number] [facility] Rx#:[id number] Oral 360 600 Output: Urine 600 Other: Voiding Method Urinal Urinal # Voids 2 3 1 # Bowel Movements 1 Results CBC & Chem 7: 03/27/24 06:32 03/27/24 06:32 Labs: Abnormal Lab Results - Last 24 Hours (Table) 03/27/24 03/28/24 03/28/24 Range/Units 20:19 06:41 07:08 POC Glucose (mg/dL) 190 H 204 H (70-110) mg/dL Hemoglobin A1c 9.3 H (<=6.0) % Microbiology - Last 24 Hours (Table) 03/26/24 16:10 Blood Culture - Preliminary Blood 03/26/24 15:55 Blood Culture - Preliminary Blood
[2024-03-28] MEDS: COLLAGENASE 250 UNIT/GM OINTMENT 30 GM TUBE TOPICAL SCH (14:36)
--- NOTE | 2024-03-28 16:10 | P.PN ---
Subjective Progress Note Date: 03/28/24 Principal diagnosis: Reason for follow-up is left diabetic foot infection Patient is a 73-year-old male with a past medical history significant for diabetes mellitus hypertension hyperlipidemia [place] coronary artery disease patient did have a history of left heel infected pressure ulcer with underlying osteomyelitis for the patient has completed his antibiotic therapy, patient presenting to the hospital with worsening wound and discoloration to the left big toe concerning for diabetic foot infection. On today's evaluation that is 03/28/2024,the patient remains to be afebrile, patient is on room air not requiring supplemental oxygen and denies any shortness of breath no chest pain or cough.Patient denies having any nausea or vomiting, no abdominal pain and no diarrhea has been reported, denies any worsening pain to the left foot. No new labs has been obtained today cultures are currently pending Objective - Vital Signs Vital signs: Vital Signs Temp 97.8 F 03/28/24 12:08 Pulse 71 03/28/24 12:08 Resp 16 03/28/24 12:08 BP 136/63 03/28/24 12:08 Pulse Ox 98 03/28/24 12:08 FiO2 Intake & Output 03/27/24 03/28/24 03/28/24 18:59 06:59 18:59 Intake Total 360 1350 Output Total 600 Balance -240 1350 Intake: Intake, IV Titration 750 Amount Cefepime 2 gm In Sodium 100 Chloride 0.9% 100 ml @ 25 mls/hr IVPB Q12H [facility] Rx# :[id number] DAPTOmycin 300 mg In 50 Sodium Chloride 0.9% 50 ml @ 100 mls/hr IVPB Q24H [facility] Rx#:[id number] Sodium Chloride 0.9% 1, 600 000 ml @ 75 mls/hr IV . [id number] [facility] Rx#:[id number] Oral 360 600 Output: Urine 600 Other: Voiding Method Urinal Urinal Urinal # Voids 2 3 1 # Bowel Movements 1 - Exam GENERAL DESCRIPTION: An elderly male lying in bed in no distress RESPIRATORY SYSTEM: Unlabored breathing , decreased breath sounds at bases HEART: S1 S2 regular rate and rhythm , ABDOMEN: Soft , no tenderness EXTREMITIES: Left big toe with some discoloration did have some superficial elevation to the left foot no foul-smelling drainage - Labs CBC & Chem 7: 03/27/24 06:32 03/27/24 06:32 Labs: Abnormal Lab Results - Last 24 Hours (Table) 03/27/24 03/28/24 03/28/24 Range/Units 20:19 06:41 07:08 POC Glucose (mg/dL) 190 H 204 H (70-110) mg/dL Hemoglobin A1c 9.3 H (<=6.0) % Microbiology - Last 24 Hours (Table) 03/26/24 16:10 Blood Culture - Preliminary Blood 03/26/24 15:55 Blood Culture - Preliminary Blood Assessment and Plan (1) Diabetic infection of left foot Current Visit: Yes Status: Acute Code(s): E11.628 - TYPE 2 DIABETES MELLITUS WITH OTHER SKIN COMPLICATIONS; L08.9 - LOCAL INFECTION OF THE SKIN AND SUBCUTANEOUS TISSUE, UNSP SNOMED Code(s): 23436027 (2) Type 2 diabetes mellitus with foot ulcer Current Visit: No Status: Acute Code(s): E11.621 - TYPE 2 DIABETES MELLITUS WITH FOOT ULCER; L97.509 - NON-PRESSURE CHRONIC ULCER OTH PRT UNSP FOOT W UNSP SEVERITY SNOMED Code(s): 752851170 Plan: 1patient being admitted to the hospital with worsening wound to the left big toe in this patient with underlying history of diabetes mellitus and also a history left heel osteomyelitis for the patient has completed antibiotic therapy patient has shown overall improvement in almost healing of the left heel wound now with wound to the left big toe has some superficial solution to the left foot concerning for diabetic foot wound and secondary cellulitis will need to call for the resistant gram-positive as well as gram-negative pathogen as the patient has previously grown MRSA and Pseudomonas 2-patient with renal insufficiency and high risk of nephrotoxicity from vancomycin 3-local culture has been obtained and results are currently pending 4-patient to continue with cefepime and daptomycin while waiting for the cu lture to finalize Discussed with admitting team Dictation was produced using [employer] dictation software. please excuse any grammatical, word or spelling errors. Time with Patient: Less than 30
[2024-03-28 17:01] LABS: Glucose,Whole Blood 183 mg/dL (70-110)
--- NOTE | 2024-03-28 17:12 | P.PN ---
Progress Note - Text Progress Note Date: 03/28/24 Chief Complaint: Left foot infection This is a 73-year-old patient, follows Dr. Bell. Patient was seen by me in the ER. Chronic stable medical condition include CAD, diabetes, GERD, hypertension, hyperlipidemia, neuropathy. CAD with bypass and stent. PAD. Depression panic disorder. Patient's sister is his legal guardian: Radha Patient presents to the ER with left foot infection. He has had different wounds and follows up with the wound care center by Dr. Fiore. He was treated for a left heel wound. Also has had a great toe wound. Patient has been having increasing pain in the left bone. Apparently drainage from the left foot. Somewhat tender. Patient's sister and daughter at the bedside. Appetite is fair. March 27, 2024: Admitted with left foot infection deep tissue/abscess. Spoke with Dr. Pascal from vascular. He will be going out of town. Will consult Dr. Romeo from vascular. ID following. Oral intake good. Patient diabetes appears to be brittle. Follow March 28, 2024: Spoke to patient's sister German yesterday. She did confirm that she is a legal guardian takes all decisions for the patient. I did convey this to Dr. Romeo from vascular. Patient's sister was okay with proceeding with surgical intervention including amputation if so felt by Dr. Romeo. This morning MARGE Jj informed me that doctors for reevaluation patient was always a standing and able to decline surgery. They placed ethics consult for the same. I did speak to the hospital legal secretary Mrs. Frost, to assist in the situation. I spoke to the patient and explained to him the reason surgery is offering operation because it is felt antibiotics would not really help. Patient was initially irritated but then said he will proceed for surgery. I did communicate this to Анна BIRD. Meantime patient to continue with antibiotics. urgency of surgery is to be determined by Dr. Romeo. Await further input. Active Medications Acetaminophen (Acetaminophen Tab 325 Mg Tab) 650 mg PO Q6HR PRN PRN Reason: Mild Pain or Fever > 100.5 Hydrocodone Bitart/Acetaminophen (Hydrocodone/Apap 5-325mg 1 Each Tab) 1 each PO Q4HR PRN PRN Reason: Pain Last Admin: 03/28/24 08:30 Dose: 1 each Albuterol/Ipratropium (Ipratropium-Albuterol 3 Ml Neb) 3 ml INHALATION RT-Q6H [facility] Last Admin: 03/28/24 15:36 Dose: Not Given Alprazolam (Alprazolam 0.25 Mg Tab) 0.25 mg PO DAILY PRN PRN Reason: Anxiety Last Admin: 03/28/24 15:38 Dose: 0.25 mg Amlodipine Besylate (Amlodipine 5 Mg Tab) 5 mg PO BID@0800,2000 [facility] Last Admin: 03/28/24 08:20 Dose: 5 mg Aspirin (Aspirin 81 Mg) 81 mg PO DAILY@1700 [facility] Last Admin: 03/27/24 17:51 Dose: 81 mg Benzonatate (Benzonatate 100 Mg Cap) 100 mg PO TID PRN PRN Reason: Cough Bisacodyl (Bisacodyl 10 Mg Supp) 10 mg RECTAL DAILY PRN PRN Reason: Constipation Calcium Carbonate/Glycine (Calcium Carbonate 500 Mg Chewable) 1,000 mg PO Q4HR PRN PRN Reason: Dyspepsia Cholecalciferol (Cholecalciferol 25 Mcg (1000 Iu) Tablet) 25 mcg PO DAILY@0800 [facility] Last Admin: 03/27/24 09:51 Dose: 25 mcg Collagenase (Collagenase 250 Unit/Gm Ointment 30 Gm Tube) 1 applic TOPICAL DAILY [facility]; Protocol Last Admin: 03/28/24 14:36 Dose: Not Given Dapagliflozin (Dapagliflozin Propanediol 10 Mg Tablet) 10 mg PO DAILY@0800 [facility] Last Admin: 03/28/24 08:24 Dose: 10 mg Dextrose/Water (Dextrose 50% Syringe 50 Ml) 25 ml IVP PER PROTOCOL PRN; Protocol PRN Reason: Hypoglycemia Dextrose/Water (Dextrose 50% Syringe 50 Ml) 50 ml IVP PER PROTOCOL PRN; Protocol PRN Reason: Hypoglycemia Enoxaparin Sodium (Enoxaparin 40 Mg/0.4 Ml Syringe) 40 mg SQ DAILY@0800 [facility] Last Admin: 03/27/24 09:52 Dose: 40 mg Escitalopram Oxalate (Escitalopram 10 Mg Tab) 10 mg PO DAILY@0800 [facility] Last Admin: 03/28/24 08:21 Dose: 10 mg Famotidine (Famotidine 20 Mg Tab) 20 mg PO DAILY@0800 [facility] Last Admin: 03/28/24 08:22 Dose: 20 mg Ferrous Sulfate (Ferrous Sulfate 325 Mg Tab) 325 mg PO DAILY@1700 [facility] Last Admin: 03/27/24 17:51 Dose: 325 mg Folic Acid (Folic Acid 1 Mg Tab) 1 mg PO DAILY@1200 [facility] Last Admin: 03/27/24 09:51 Dose: 1 mg Gabapentin (Gabapentin 400 Mg Cap) 400 mg PO HS@2100 [facility] Last Admin: 03/27/24 20:40 Dose: 400 mg Hydromorphone HCl (Hydromorphone 0.5 Mg/0.5 Ml Syringe) 0.5 mg IVP Q3HR PRN PRN Reason: Moderate Pain (Scale 4 to 6) Last Admin: 03/28/24 15:38 Dose: 0.5 mg Sodium Chloride (Saline 0.9%) 1,000 mls @ 75 mls/hr IV .[id number] [facility] Last Admin: 03/27/24 20:45 Dose: 75 mls/hr Daptomycin 300 mg/ Sodium (Chloride) 50 mls @ 100 mls/hr IVPB Q24H [facility]; Protocol Last Admin: 03/27/24 20:40 Dose: 100 mls/hr Cefepime HCl 2 gm/ Sodium (Chloride) 100 mls @ 25 mls/hr IVPB Q12H [facility]; Protocol Last Admin: 03/28/24 12:55 Dose: 25 mls/hr Insulin Aspart (Insulin Aspart (Novolog) 100 Unit/Ml Vial) 8 unit SQ TID@0800,1200,1700 [facility] Last Admin: 03/28/24 12:52 Dose: Not Given Insulin Aspart (Insulin Aspart (Novolog) 100 Unit/Ml Vial) 0 unit SQ ACHS [facility]; Protocol Last Admin: 03/28/24 12:27 Dose: Not Given Insulin Detemir (Insulin Detemir (Levemir) 100 Unit/Ml Syr) 13 unit SQ BID@0700,2100 [facility] Last Admin: 03/28/24 08:18 Dose: 13 unit Isosorbide Mononitrate (Isosorbide Mononitrate Er 30 Mg Tab.Er.24h) 30 mg PO DAILY@0800 [facility] Last Admin: 03/28/24 08:20 Dose: 30 mg Lactic Acid (Ammonium Lactate 12% Cream 140 Gm Tube) 1 applic TOPICAL BID PRN; Protocol PRN Reason: Dry Skin Lactulose (Lactulose 20 Gm/30 Ml Cup) 20 gm PO DAILY PRN PRN Reason: Constipation Levothyroxine Sodium (Levothyroxine 75 Mcg Tab) 150 mcg PO DAILY@0630 [facility] Last Admin: 03/28/24 05:35 Dose: 150 mcg Magnesium Hydroxide (Magnesium Hydroxide 2,400 Mg/30 Ml Cup) 7,200 mg PO Q48H PRN PRN Reason: Constipation Melatonin (Melatonin 3 Mg Tablet) 3 mg PO HS PRN PRN Reason: Insomnia Metoprolol Tartrate (Metoprolol Tartrate 50 Mg Tab) 50 mg PO BID@0800,1700 [facility] Last Admin: 03/28/24 08:23 Dose: 50 mg Multivitamins (Multivitamins, Thera 1 Each Tab) 1 each PO DAILY@1200 [facility] Last Admin: 03/27/24 09:51 Dose: 1 each Naloxone HCl (Naloxone 0.4 Mg/Ml 1 Ml Vial) 0.2 mg IV Q2M PRN PRN Reason: Opioid Reversal Non-Formulary Medication (Dulaglutide [Trulicity]) 1.5 mg SQ TH [facility] Last Admin: 03/28/24 08:25 Dose: Not Given Nystatin (Nystatin 100,000 Unit/Gm Powd 15 Gm) 1 applic TOPICAL TID [facility]; Protocol Last Admin: 03/28/24 08:23 Dose: 1 applic Ondansetron HCl (Ondansetron 4 Mg Tab) 4 mg PO Q8H PRN PRN Reason: Nausea And Vomiting Pantoprazole Sodium (Pantoprazole 40 Mg Tablet) 40 mg PO AC-BRKFST [facility] Last Admin: 03/27/24 09:51 Dose: 40 mg Petrolatum (Petrolatum, White Oint 50 Gm Tube) 1 applic TOPICAL TUTHSA [facility]; Protocol Last Admin: 03/27/24 03:07 Dose: Not Given Tamsulosin HCl (Tamsulosin 0.4 Mg Cap.Er.24h) 0.4 mg PO HS@2100 [facility] Last Admin: 03/27/24 20:41 Dose: 0.4 mg Thiamine HCl (Thiamine 100 Mg Tab) 100 mg PO BID-W/MEALS [facility] Last Admin: 03/28/24 08:21 Dose: 100 mg Social history: Former smoker. Patient's sister denies a legal guardian Physical examination: VITAL SIGNS: 7.8, 71, 16, 136/63, 98% room air GENERAL: Resting in bed, EYES: Pupils equal. Conjunctiva cindy l. HEENT: External appearance of nose and ears normal, oral cavity grossly normal. NECK: JVD not raised; masses not palpable. HEART: First and second heart sounds are normal; no edema. LUNGS: Respiratory rate normal; decreased breath sounds. ABDOMEN: Soft, nontender, liver spleen not palpable, no masses palpable. PSYCH: Patient is able to hold a simple conversation. Sometimes jumps from 1 topic to the other. Mood swings. Easily gets agitated MUSCULOSKELETAL:No Clubbing/cyanosis;muscles-grossly intact. Left foot is swollen. Some wounds including the dorsum. Tender. Some drainage. NEUROLOGICAL: Stuttering speech. Gross tremors.. INVESTIGATIONS, reviewed in the clinical context: March 27, 2024: White count 6.4 hemoglobin 9.6 platelets 334 sodium 134 potassium 5.5 BUN 58 creatinine 1.9 blood glucose 340 March 26, 2024: White count 7.7 hemoglobin 9.5 platelets 448 sodium 135 potassium 5.8 BUN 67 creatinine 1.8 EKG tracing personally reviewed by me-normal sinus rhythm. Rate 81 Left foot x-ray: Focal areas of osteopenia subtle periostitis at the posterior calcaneus. Soft tissue swelling around the great toe. Previous labs: Creatinine 1.44 on February 15 Assessment plan: -Suspect abscess of the left foot and possible soft tissue deep infection. Foot is rather swollen and tender and areas of drainage. Patient has known PAD and also underlying diabetes. Previous cultures that showed growing MRSA and Pseudomonas.: Slow to respond Dr. Romeo from vascular:: Offered amputation to the patient. Patient declined surgery to Dr. Romeo. As per my discussion with the patient today he is agreeable for the same. Legal opinion awaited from [facility] [facility] [place], regarding patient's decision-making status given sister has legal guardianship.. Wound culture, blood culture pending ID following -Hyperlipidemia Lipitor 80 mg nightly -Diabetes mellitus type 2, uncontrolled with hyperglycemia. Brittle Follow Accu-Cheks with sliding scale Jardiance 25 mg a day Trulicity. Levemir. 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 Add Lokelma 10 mg 3 times daily -BPH Flomax 0.4 mg nightly -GERD Pepcid 20 mg a day -Hypothyroid Synthroid 150 mcg a day -Peripheral arterial disease Lipitor -Cognitive impairment -CAD with a prior history of coronary bypass and stent Lopressor 50 mg twice daily -Chronic wound to the left foot follows at the wound care center -Full code -Legal guardian, Sister Radha: Legal guardian makes all decisions for the patient. Lokelma added. Spoke to patient's Sister Radha over the phone. She makes all decisions about the patient. Patient does not make decisions. Spoke to Dr. Romeo. Patient was seen by Dr. Romeo back in May 2023. Patient's sister is okay to proceed with surgery. Dr. Romeo will speak to the sister. Have asked the nurse to place the legal documents in the chart. Timing of surgery to be further determined now per Dr. Romeo. Later in the day spoke to Dr. Alvarado from ethics committee.: They recommend a multidisciplinary meeting. Will do so after CT scan results are obtained we will speak to Dr. Romeo to determine urgency and viability of surgery if so. [Total time spent today about 1 hour with over 40 minutes of discussion] Past Medical History Past Medical History: Coronary Artery Disease (CAD), Diabetes Mellitus, GERD/Reflux, Hyperlipidemia, Hypertension, Myocardial Infarction ([place]), Thyroid Disorder Additional Past Medical History / Comment(s): neuropathy, diabetic coma in 2000 and pt's sister has had legal guardianship since. Last Myocardial Infarction Date:: unknown History of Any Multi-Drug Resistant Organisms: ESBL, MRSA, MRSA Date of last positivie culture/infection: 11/23/23-MRSA; 09/25/23 ESBL MDRO Source:: Left Heel-MRSA; Blood-ESBL Past Surgical History: Appendectomy, Coronary Bypass/CABG, Heart Catheterization With Stent Additional Past Surgical History / Comment(s): Sister relays, "He had peripheral artery surgery too." Past Anesthesia/Blood Transfusion Reactions: No Reported Reaction Date of Last Stent Placement:: unknown Past Psychological History: Depression, Panic Disorder Smoking Status: Former smoker Past Alcohol Use History: Daily Past Drug Use History: Marijuana
--- NOTE | 2024-03-28 17:49 | P.PN ---
Progress Note - Text Progress Note Date: 03/28/24 ETHICS CONSULT NOTE Members Present: MD Ramirez Guo MD Ryan Johnson Holly Gould Elizabeth Gildner Situation: Ethics Committee was consulted due to concerns over patient who expressed his wishes not to have amputation for diabetic foot infection. Vascular surgery placed consult over concerns that patient's legal guardian had decision making authority over a patient who appeared to have capacity to refuse medical procedure. Discussion: The ethics committee considered this unique case of a patient who has guardianship for over 9 years follow-up with sister. Patient is a diabetic and presented with a left diabetic foot infection. Primary care physician, vascular surgery, infectious disease are in agreement the patient's best course of action is to have below-knee amputation due to vascular perfusion issues of the extremity. Given these recommendations, guardian is in agreement with proceeding with surgery. However, patient has expressed his wish not to proceed with surgery. In the course of discussion it was identified the patient did demonstrate that he was alert and oriented x 3, understood the benefits of surgery, understood the risks of surgery and of with holding surgery, and was expressing his wishes that was consistent with his previously stated values. Therefore, in this situation, patient does appear to have capacity to refuse this medical procedure, but does not have competency in the eyes of the court. Therefore, in this situation consent for or against proceeding with an operation would fall in the hands of the guardian while "assent" falls in the purview of the patient. Given patient's adamant refusal to proceed with below-knee amputation, and his capacity to refuse despite lack of competency, this committee presents the following recommendations. Recommendations: 1. Multidisciplinary approach in which vascular surgery, primary attending, patient, guardian should meet together and discuss patient's expressed wishes, as well as alternative strategies that better align with patient's previously stated values. 2. This committee is in agreement that provided patient continues to demonstrate his understanding of his present medical condition, surgical options, benefits, risks, it would not be ethical to proceed with the procedure while the patient does not provide his assent to do so. 3. The patient become encephalopathic in the future however, and is unable to demonstrate understanding of the benefits and risks which at that point we will have changed, it is well within the rights of patient's legal guardian to consent to a lifesaving procedure such as below-knee amputation. 4. The patient should be provided resources to understand his legal rights as well as to appeal those in probate court, should he choose to do so.
[2024-03-28 20:35] LABS: Glucose,Whole Blood 184 mg/dL (70-110)
--- NOTE | 2024-03-28 22:53 | CT ---
EXAMINATION TYPE: CT angio abd aorta w/ Runoff DATE OF EXAM: 03/28/2024 HISTORY: cellutlitis, non healing wounds. Inpatient. CT DLP: 2280.9 mGycm, Automated Exposure Control for Dose Reduction was Utilized. CONTRAST: CT scan of the abdomen and pelvis is performed with oral and with IV Contrast, patient inje cted with 80ml mL of Isovue 370. COMPARISON: CT 07/22/2022 FINDINGS: VASCULATURE The visualized distal thoracic aorta is tortuous but not dilated. The abdominal aorta is not dilated but demonstrates at least circumferential intimal calcifications throughout its extent. The celiac tr unk, SMA, and BRIDGETTE are widely patent as are the bilateral renal arteries. Right lower extremity The right aortoiliac inflow is widely patent. The right common and external iliac arteries are widely patent. The right internal iliac artery is widely patent but there is an origin stenosis which appea rs hemodynamically significant. The proximal [employer] is patent but calcified stenosis produces hemodynami c significant narrowing throughout the mid and distal [employer], and extends to become a hemodynamically si gnificant origin stenosis of the profunda femoral artery. The femoral-posterior tibial graft is widel y patent. It is difficult to resolve the heavily calcified arterial anatomy from the contrast within the arteries below the knee but it appears there is a three-vessel runoff. Left lower extremity The left aortoiliac inflow is patent but the left common iliac origin shows a borderline significant stenosis. The mid and distal left common iliac and the left external iliac arteries are widely patent . The left internal iliac artery is widely patent but there is an origin stenosis which appears hemod ynamically significant. Left [employer] is widely patent but there is profundofemoral artery origin stenosis which appears hemodynamically significant. The left SFA and the popliteal arteries are severely dise ased throughout their extent, with innumerable hemodynamically significant stenoses. Again, it is dif ficult to resolve the heavily calcified arterial anatomy from the contrast within the arteries below the knee but it appears there is a three-vessel runoff. LUNG BASES: Chronic interstitial lung changes with a diffuse pattern of bilateral bronchiectasis and bronchial wall thickening and with normal right lower lobe ill-defined opacities partially visualized mild mediastinal adenopathy. These findings can be fully characterized with follow-up CT chest. LIVER/GB: No significant abnormality is appreciated. PANCREAS: No significant abnormality is seen. SPLEEN: No significant abnormality is seen. ADRENALS: No significant abnormality is seen. KIDNEYS, URETERS, BLADDER: There is moderate left-sided and [id number] right-sided hydronephro sis and hydroureter down to the urinary bladder, which shows marked urinary bladder mural thickening circumferentially. BOWEL: There is no small bowel dilation. Marked volume of pancolonic stool noted. LYMPH NODES: No greater than 1cm abdominal or pelvic lymph nodes. OSSEOUS STRUCTURES: No significant abnormality is seen. IMPRESSION: 1. Significant CTA runoff findings. 2. Prominent bilateral obstructive uropathy, left greater than right; suggest Urology consultation. 3. Marked pancolonic stool volume noted. 4. Pulmonary findings as noted; consider CT Chest.
[2024-03-29 07:16] LABS: Glucose,Whole Blood 133 mg/dL (70-110)
[2024-03-29 07:29] LABS: Basophils # (A) 0.1 k/uL (0-0.2); Basophils % (A) 1 %; Eosinophils # (A) 0.3 k/uL (0-0.7); Eosinophils % (A) 3 %; HCT 35.7 % (39.0-53.0); HGB 10.7 gm/dL (13.0-17.5); Hypochromasia Moderate; Lymphocytes # (A) 0.6 k/uL (1.0-4.8); Lymphocytes % (A) 7 %; MCH 28.6 pg (25.0-35.0); MCV 95.3 fL (80.0-100.0); Mean Platelet Volume 7.9; Monocytes # (A) 0.4 k/uL (0-1.0); Monocytes % (A) 5 %; Neutrophils # (A) 7.4 k/uL (1.3-7.7); Neutrophils % (A) 84 %; Platelet Count 349 k/uL (150-450); RBC 3.74 m/uL (4.30-5.90); RDW 14.2 % (11.5-15.5); WBC 8.8 k/uL (3.8-10.6)
[2024-03-29 07:43] LABS: African American GFR (CKD) 43 (>60 ml/min/1.73 sqM); Anion Gap 9 mmol/L; Blood Urea Nitrogen 44 mg/dL (9-20); Calcium 8.5 mg/dL (8.4-10.2); Carbon Dioxide 20 mmol/L (22-30); Chloride 110 mmol/L (98-107); Glucose 89 mg/dL (74-99); Non-African American GFR(CKD) 37 (>60 ml/min/1.73 sqM); Sodium 139 mmol/L (137-145)
[2024-03-29] MEDS: ESCITALOPRAM 10 MG TAB PO SCH (09:48)
--- NOTE | 2024-03-29 09:51 | P.PN ---
Subjective Progress Note Date: 03/29/24 Principal diagnosis: Left lower extremity nonhealing wounds, peripheral arterial disease Patient is seen and examined today as a follow-up. He was just getting washed up. He is alert and oriented. Still complains of bilateral lower extremity pain, left greater than right. He has been afebrile. He is without any other complaints at this time. Ethics committee had reviewed case yesterday and gave their recommendations. The patient had a CT angiogram abdomen aorta with runoff with the right lower extremity showing stenosis but bypass is patent. Left lower extremity with aortoiliac inflow patency but left common iliac origin shows stenosis. Left internal iliac artery patent with hemodynamically significant stenosis. Profundofemoral artery origin hemodynamically significant stenosis. Left SFA and popliteal artery is severely diseased with hemodynamically significant stenosis Objective - Vital Signs Vital signs: Vital Signs Temp 98.7 F 03/29/24 07:16 Pulse 76 03/29/24 07:16 Resp 16 03/29/24 07:16 BP 147/65 03/29/24 07:16 Pulse Ox 92 L 03/29/24 07:16 FiO2 Intake & Output 03/28/24 03/29/24 03/29/24 18:59 06:59 18:59 Intake Total 360 Output Total 1200 900 Balance -840 -900 Intake: Oral 360 Output: Urine 1200 900 Other: Voiding Method Urinal Urinal # Voids 1 1 # Bowel Movements 1 - Exam General appearance: The patient is alert, oriented, appears in no acute distre ss. HET: Head is normocephalic and atraumatic. Neck: Supple. Heart: Regular. Lungs: Equal expansion, normal respiratory effort. Abdomen: Soft, nondistended. Extremities: Nonpalpable PT and DP pulses bilaterally. Left lower extremity with multiple diabetic ulcers on toes, dorsal aspect of left foot with diabetic ulcer, no fluctuance or drainage noted. Great toe with ischemic changes. Toes are cool to touch with decreased capillary refill. Diabetic ulcers to left lower extremity and cherry along with a blister with clear fluid. Left heel pressure ulcer, healing. Neurological: Patient is alert and oriented to person place and time. - Labs CBC & Chem 7: 03/29/24 06:27 03/29/24 06:27 Labs: Abnormal Lab Results - Last 24 Hours (Table) 03/28/24 03/28/24 03/28/24 Range/Units 06:41 16:59 20:33 RBC (4.30-5.90) m/uL Hgb (13.0-17.5) gm/dL Hct (39.0-53.0) % MCHC (31.0-37.0) g/dL Lymphocytes # (1.0-4.8) k/uL Chloride (98-107) mmol/L Carbon Dioxide (22-30) mmol/L BUN (9-20) mg/dL Creatinine (0.66-1.25) mg/dL POC Glucose (mg/dL) 183 H 184 H (70-110) mg/dL Hemoglobin A1c 9.3 H (<=6.0) % 03/29/24 03/29/24 03/29/24 Range/Units 06:27 06:27 07:14 RBC 3.74 L (4.30-5.90) m/uL Hgb 10.7 L (13.0-17.5) gm/dL Hct 35.7 L (39.0-53.0) % MCHC 30.0 L (31.0-37.0) g/dL Lymphocytes # 0.6 L (1.0-4.8) k/uL Chloride 110 H (98-107) mmol/L Carbon Dioxide 20 L (22-30) mmol/L BUN 44 H (9-20) mg/dL Creatinine 1.78 H (0.66-1.25) mg/dL POC Glucose (mg/dL) 133 H (70-110) mg/dL Hemoglobin A1c (<=6.0) % Microbiology - Last 24 Hours (Table) 03/26/24 16:30 Anaerobic Culture - Final Toe - Left First 03/26/24 16:10 Blood Culture - Preliminary Blood 03/26/24 15:55 Blood Culture - Preliminary Blood 03/26/24 16:30 Gram Stain - Preliminary Foot - Left Wound Culture - Final Assessment and Plan Assessment: 1. Left lower extremity chronic nonhealing diabetic ulcers 2. Left great toe diabetic ulcer with ischemic changes 3. Hemodynamically significant peripheral arterial disease with history of revascularization and bypass 4. History of nonhealing wounds 5. Diabetes mellitus Plan: 1. CT angiogram with runoff reviewed independently by Dr. Romeo 2. Plan is for multidisciplinary meeting with family and patient to to discuss further plan of care 3. Patient may benefit from left lower extremity revascularization. This will be further discussed at the multidisciplinary meeting. 4. Patient will need cardiac and medical clearance prior to any surgical intervention. 5. Further recommendations forthcoming based on clinical course Thank you for this consultation. We will continue to follow. The impression and plan of care has been dictated as directed. Dr. Romeo I performed a history and examination of this patient, discussed the same with the dictator. I agree with the dictator's note ,documented as a scribe. Any additional findings or plans will be noted.
[2024-03-29 11:58] LABS: Glucose,Whole Blood 273 mg/dL (70-110)
--- NOTE | 2024-03-29 11:59 | CA ---
Transthoracic Echo Report Name: Colton Ross Age: 73 Gender: M : 1950 Exam Date: 03/29/2024 10:46 Exam Location: [facility] Ht (in): 70 Wt (lb): 167 Ordering Physician: José Luis Parks MD Attending/Referring Phys: [employer] Tasha Duncan RDCS Procedure CPT: Indications: pre-op Cardiac Hx: Technical Quality: Fair Contrast 1: Total Dose (mL): Contrast 2: Total Dose (mL): MEASUREMENTS (Male / Female) Normal Values 2D ECHO LV Diastolic Diameter PLAX 5.3 cm 4.2 - 5.9 / 3.9 - 5.3 cm LV Systolic Diameter PLAX 4.4 cm IVS Diastolic Thickness 0.9 cm 0.6 - 1.0 / 0.6 - 0.9 cm LVPW Diastolic Thickness 0.9 cm 0.6 - 1.0 / 0.6 - 0.9 cm LV Relative Wall Thickness 0.3 RV Internal Dim ED PLAX 3.7 cm M-MODE LV Diastolic Diameter MM 6.0 cm 4.2 - 5.9 / 3.9 - 5.3 cm LV Systolic Diameter MM 5.0 cm LV Cardiac Index MM Teich 3092.0 cm???/min???m??? IVS Diastolic Thickness MM 0.8 cm 0.6 - 1.0 / 0.6 - 0.9 cm LVPW Diastolic Thickness MM 0.8 cm 0.6 - 1.0 / 0.6 - 0.9 cm LV Relative Wall Thickness MM 0.3 0.24 - 0.42 / 0.22 - 0.42 LV Mass Index MM 94.3 g/m??? 49 - 115 / 43 - 95 g/m??? DOPPLER AV Peak Velocity 110.4 cm/s AV Peak Gradient 4.9 mmHg AV Mean Velocity 71.3 cm/s AV Mean Gradient 2.4 mmHg AV Velocity Time Integral 22.2 cm LVOT Peak Velocity 98.8 cm/s LVOT Peak Gradient 3.9 mmHg LVOT Velocity Time Integral 20.2 cm Mitral E Point Velocity 89.9 cm/s Mitral A Point Velocity 113.7 cm/s Mitral E to A Ratio 0.8 MV Deceleration Time 167.2 ms MV E' Velocity 9.6 cm/s Mitral E to MV E' Ratio 9.4 TR Peak Velocity 262.4 cm/s TR Peak Gradient 27.5 mmHg Right Atrial Pressure 10.0 mmHg Pulmonary Artery Systolic Pressu 37.5 mmHg Right Ventricular Systolic Press 37.5 mmHg PV Peak Velocity 117.2 cm/s PV Peak Gradient 5.5 mmHg FINDINGS Left Ventricle Left ventricular ejection fraction is estimated at 50 %. increased left ventricular diastolic diameter. Anteroseptal hypokinesia Right Ventricle Mild right ventricular dilatation with normal function. Mildly elevated right ventricular systolic pressure. Right Atrium Normal right atrial size. Left Atrium Normal left atrial size. Mitral Valve Mitral valve thickened. Mild mitral annular calcification. No evidence for mitral valve prolapse. Minimal mitral stenosis. Trace mitral regurgitation. Aortic Valve Trileaflet aortic valve. No aortic valve stenosis or regurgitation. Aortic valve sclerosis. Tricuspid Valve Structurally normal tricuspid valve. No tricuspid stenosis. Mild tricuspid regurgitation. Pulmonic Valve Structurally normal pulmonic valve. No pulmonic stenosis. Trace pulmonic regurgitation. Pericardium No pericardial effusion. Aorta Aortic annulus normal. CONCLUSIONS LV size is at upper limits of normal with anteroseptal hypokinesia ejection fraction of 50%. There is mild mitral and tricuspid regurgitation. No significant pulmonary hypertension. No pericardial effusion. Mitral and aortic valve leaflets are calcified but no significant restriction Previewed by: Dr. Yocasta Simpson MD (Electronically Signed) Final Date: 29 Mar 2024 11:58
[2024-03-29 13:21] VITALS: BMI 23.9
--- NOTE | 2024-03-29 13:36 | P.CRDCN ---
History of Present Illness Consult date: 03/29/24 Reason for Consult (text): Surgical clearance, left lower extremity revascularization History of present illness: History of present illness: This is a 73-year-old male patient of Dr. Jayde Edgar with past medical history of coronary artery disease status post CABG in [place] in 2002, details are not available, hypertension, diabetes mellitus type 2, dyslipidemia, chronic kidney disease, severe PAD, history of CVA. We have been asked to evaluate the patient for surgical clearance, patient is tentatively scheduled for left lower extremity revascularization. Patient also has history of osteomyelitis of the left heel status post antibiotic therapy and return to [facility] due to a left big toe wound. He has been seen by infectious disease and vascular surgery with plan for possible revascularization next week. Patient apparently has verb alized that he does not want to go through with amputation for diabetic foot infection and he has a legal guardian. This was reviewed by ethics committee. Patient denies having any chest pain or shortness of breath. EKG sinus rhythm with poor R wave progression Chest x-ray: No acute process. Suspect COPD and interstitial chronic lung disease such as pulmonary fibrosis. WBC 8.8, hemoglobin 10.7. Sodium 139, potassium 5, BUN 44 and creatinine 1.78. Hemoglobin A1c is 9.3 Home cardiac medications: Amlodipine 5 mg twice daily, aspirin 81 mg daily, atorvastatin 80 mg at bedtime, Imdur 30 mg daily, Lopressor 50 mg twice daily, also on levothyroxine and Jardiance 25 mg daily. Echocardiogram performed on 03/29/2024 reveals EF of 50%. LV size is upper limit of normal with anterior hypokinesia. Mild mitral and tricuspid regurgitation. No significant pulmonary hypertension. No pericardial effusion. Mitral and aortic valve leaflets are calcified but no significant restriction. Lexiscan Cardiolite stress test performed in the office on 08/01/2019 was a negative stress test by EKG criteria. Abnormal nuclear scan showing evidence of prior inferior lateral wall myocardial infarction with preserved LV function without any ischemia. Review Of Systems: At the time of my exam: CONSTITUTIONAL: Denies fever or chills. HEENT: Denies blurred vision, vision changes, or eye pain. Denies hemoptysis CARDIOVASCULAR: Denies chest pain. Denies orthopnea. Denies PND. Denies palpitations RESPIRATORY: Denies shortness of breath. GASTROINTESTINAL: Denies abdominal pain. Denies nausea or vomiting. HEMATOLOGIC: Denies bleeding disorders. GENITOURINARY: Denies any blood in urine. SKIN: Denies pruitis. Denies rash. Positive wounds Physical examination: Gen: This is a 73-year-old male in no acute distress VS: reviewed HEENT: Head is atraumatic, normocephalic. Pupils equal, round. Sclerae is anicteric. NECK: Supple. No JVD. LUNGS: Clear to auscultation. No wheezes or rhonchi. No intercostal retractions. HEART: Regular rate and rhythm. No murmur. ABDOMEN: Soft No tenderness. EXTREMITIES: No pedal edema. Multiple diabetic ulcers, ischemic change to the left great toe. NEUROLOGICAL: Patient is awake, alert and oriented x3. Assessment: Severe peripheral arterial disease Ischemic diabetic wound left great toe History of left heel osteomyelitis History of coronary artery disease with previous CABG Hypertension Diabetes with A1c 9.3 Chronic kidney disease Dyslipidemia History of CVA Plan: Resume patient's home cardiac medications Schedule patient for Lexiscan stress test on Monday. Following that, clearance for surgery will be evaluated Further recommendations to follow based upon clinical course Thank you kindly for this consultation. Nurse practitioner note has been reviewed, I agree with documented findings and plan of care. Patient was seen and examined. Past Medical History Past Medical History: Coronary Artery Disease (CAD), Diabetes Mellitus, GERD/Reflux, Hyperlipidemia, Hypertension, Myocardial Infarction ([place]), Thyroid Disorder Additional Past Medical History / Comment(s): neuropathy, diabetic coma in 2000 and pt's sister has had legal guardianship since. Last Myocardial Infarction Date:: unknown History of Any Multi-Drug Resistant Organisms: ESBL, MRSA, MRSA Date of last positivie culture/infection: 11/23/23-MRSA; 09/25/23 ESBL MDRO Source:: Left Heel-MRSA; Blood-ESBL Past Surgical History: Appendectomy, Coronary Bypass/CABG, Heart Catheterization With Stent Additional Past Surgical History / Comment(s): Sister relays, "He had peripheral artery surgery too." Past Anesthesia/Blood Transfusion Reactions: No Reported Reaction Date of Last Stent Placement:: unknown Past Psychological History: Depression, Panic Disorder Smoking Status: Former smoker Past Alcohol Use History: Daily Past Drug Use History: Marijuana - Past Family History Father Family Medical History: Congestive Heart Failure (CHF) Mother Additional Family Medical History / Comment(s): of old age. Medications and Allergies Home Medications Medication Instructions Recorded Confirmed Type Aspirin [[place] Aspirin EC] 81 mg PO DAILY@1700 03/13/19 03/26/24 History Ferrous Sulfate [Iron (65 MG 325 mg PO DAILY@17003/13/19 03/26/24 History Elemental)] Isosorbide Mononitrate ER [Imdur] 30 mg PO DAILY@0800 03/13/19 03/26/24 History Pantoprazole Sodium [Protonix] 40 mg PO DAILY@0603/13/19 03/26/24 History Ammonium Lactate Cream [Lac-Hydrin 1 applic TOPICAL BID PRN 04/13/23 03/26/24 History 12% Cream] Atorvastatin [Lipitor] 80 mg PO HS@2100 04/13/23 03/26/24 History Empagliflozin [Jardiance] 25 mg PO DAILY@0800 04/13/23 03/26/24 History Escitalopram [Lexapro] 10 mg PO DAILY@0800 04/13/23 03/26/24 History Glucerna Shake 237 ml PO AC-SUPPER@1500 09/24/23 03/26/24 History Liquacel 30 ml PO BID@0800,1700 09/24/23 03/26/24 History Magnesium Hydroxide [Milk of 7,200 mg PO Q48H PRN 09/24/23 03/26/24 History Magnesia Concentrate] Metoprolol Tartrate [Lopressor] 50 mg PO BID@0800,1700 09/24/23 03/26/24 History Na Phos,M-B/Na Phos,Di-Ba [Fleet 133 ml RECTAL DAILY PRN 09/24/23 03/26/24 History Adult] bisacodyL [Dulcolax] 10 mg RECTAL DAILY PRN 09/24/23 03/26/24 History Cholecalciferol [Vitamin D3 (25 25 mcg PO DAILY@0812/19/23 03/26/24 History Mcg = 1000 Iu)] Famotidine [Pepcid] 20 mg PO DAILY@0800 12/19/23 03/26/24 History Levothyroxine Sodium [Synthroid] 150 mcg PO DAILY@0600 12/19/23 03/26/24 History Tamsulosin HCl [Flomax] 0.4 mg PO HS@2100 12/19/23 03/26/24 History Dulaglutide [Trulicity] 1.5 mg SQ TH 01/13/24 03/26/24 History Ondansetron [Zofran] 4 mg PO Q8H PRN 01/13/24 03/26/24 History amLODIPine [Norvasc] 5 mg PO BID@0800,2000 01/13/24 03/26/24 History Benzonatate [Tessalon Perles] 100 mg PO TID PRN cap 01/23/24 03/26/24 Rx Folic Acid 1 mg PO DAILY@1200 tab 01/23/24 03/26/24 Rx Nystatin 100,000 Unit/gm Powd 1 applic TOPICAL TID each 01/23/24 03/26/24 Rx [Mycostatin Powder] Thiamine [Vitamin B-1] 100 mg PO BID-W/MEALS tab 01/23/24 03/26/24 Rx ALPRAZolam [Xanax] 0.25 mg PO DAILY PRN 02/16/24 03/26/24 History Acetaminophen [Tylenol 8 Hour] 650 mg PO Q8H PRN 02/16/24 03/26/24 History HYDROcodone/APAP 5-325MG [[place] 1 tab PO Q4HR PRN 02/16/24 03/26/24 History 5-325] Insulin Detemir (Levemir) [Levemir] 13 unit SQ BID@0700,2100 each 02/16/24 03/26/24 Rx Ipratropium-Albuterol Nebulize 3 ml INHALATION RT-Q6H 02/16/24 03/26/24 History [Duoneb 0.5 mg-3 mg/3 ml Soln] Multivitamins, Thera [Multivitamin 1 tab PO DAILY@1200 02/16/24 03/26/24 History (formulary)] Enoxaparin [Lovenox] 40 mg SQ DAILY@0800 03/26/24 03/26/24 History Gabapentin [Neurontin] 400 mg PO HS@2100 03/26/24 03/26/24 History INSULIN ASPART (NovoLOG) [NovoLOG 8 unit SQ TID@0800,1200,1700 03/26/24 03/26/24 History (formulary)] INSULIN ASPART (NovoLOG) [NovoLOG See Protocol SQ ACHS 03/26/24 03/26/24 History (formulary)] Petrolat,White/Javi/8-Hydroxyqu 1 applic TOPICAL TUTHSA 03/26/24 03/26/24 History [[place]] clindamycin HCL [Cleocin HCl] 300 mg PO BID@0800,2100 03/26/24 03/26/24 History Allergies Allergy/AdvReac Type Severity Reaction Status Date / Time No Known Allergies Allergy Verified 03/26/24 17:47 Physical Exam Vitals: Vital Signs Temp Pulse Resp BP Pulse Ox 03/29/24 07:16 98.7 F 76 16 147/65 92 L 03/29/24 02:00 98.6 F 76 16 149/72 93 L 03/28/24 19:16 98.5 F 67 16 129/57 94 L 03/28/24 12:08 97.8 F 71 16 136/63 98 Intake and Output 03/28/24 03/29/24 03/29/24 22:59 06:59 14:59 Intake Total 360 Output Total 1200 900 Balance -840 -900 Intake: Oral 360 Output: Urine 1200 900 Other: Voiding Method Urinal # Voids 1 Results 03/29/24 06:27 03/29/24 06:27 CBC 03/29/24 Range/Units 06:27 WBC 8.8 (3.8-10.6) k/uL RBC 3.74 L (4.30-5.90) m/uL Hgb 10.7 L (13.0-17.5) gm/dL Hct 35.7 L (39.0-53.0) % Plt Count 349 (150-450) k/uL Comprehensive Metabolic Panel 03/29/24 Range/Units 06:27 Sodium 139 (137-145) mmol/L Potassium 5.0 (3.5-5.1) mmol/L Chloride 110 H (98-107) mmol/L Carbon Dioxide 20 L (22-30) mmol/L BUN 44 H (9-20) mg/dL Creatinine 1.78 H (0.66-1.25) mg/dL Glucose 89 (74-99) mg/dL Calcium 8.5 (8.4-10.2) mg/dL Current Medications Generic Name Dose Route Start Last Admin Trade Name Freq PRN Reason Stop Dose Admin Acetaminophen 650 mg 03/26/24 18:35 Acetaminophen Tab 325 Mg Tab PO Q6HR PRN Mild Pain or Fever > 100.5 Hydrocodone Bitart/Acetaminophen 1 each 03/26/24 23:12 03/28/24 20:43 Hydrocodone/Apap 5-325mg 1 Each Tab PO 1 each Q4HR PRN Administration Pain Albuterol/Ipratropium 3 ml 03/27/24 02:00 03/29/24 09:14 Ipratropium-Albuterol 3 Ml Neb INHALATION Not Given RT-Q6H [facility] Alprazolam 0.25 mg 03/26/24 23:05 03/28/24 15:38 Alprazolam 0.25 Mg Tab PO 0.25 mg DAILY PRN Administration Anxiety Amlodipine Besylate 5 mg 03/27/24 08:00 03/29/24 09:00 Amlodipine 5 Mg Tab PO 5 mg BID@0800,2000 [facility] Administration Aspirin 81 mg 03/27/24 17:00 03/28/24 16:41 Aspirin 81 Mg PO 81 mg DAILY@1700 [facility] Administration Benzonatate 100 mg 03/26/24 23:12 Benzonatate 100 Mg Cap PO TID PRN Cough Bisacodyl 10 mg 03/26/24 23:12 Bisacodyl 10 Mg Supp RECTAL DAILY PRN Constipation Calcium Carbonate/Glycine 1,000 mg 03/27/24 10:27 Calcium Carbonate 500 Mg Chewable PO Q4HR PRN Dyspepsia Cholecalciferol 25 mcg 03/27/24 08:00 03/29/24 09:00 Cholecalciferol 25 Mcg (1000 Iu) Tablet PO 25 mcg DAILY@0800 [facility] Administration Collagenase 1 applic 03/28/24 13:00 03/29/24 09:02 Collagenase 250 Unit/Gm Ointment 30 Gm Tube TOPICAL 1 applic DAILY [facility] Administration Protocol Dapagliflozin 10 mg 03/27/24 08:00 03/29/24 09:00 Dapagliflozin Propanediol 10 Mg Tablet PO 10 mg DAILY@0800 [facility] Administration Dextrose/Water 25 ml 03/27/24 07:26 Dextrose 50% Syringe 50 Ml IVP PER PROTOCOL PRN Hypoglycemia Protocol Dextrose/Water 50 ml 03/27/24 07:26 Dextrose 50% Syringe 50 Ml IVP PER PROTOCOL PRN Hypoglycemia Protocol Enoxaparin Sodium 40 mg 03/27/24 08:00 03/29/24 08:58 Enoxaparin 40 Mg/0.4 Ml Syringe SQ 40 mg DAILY@0800 [facility] Administration Escitalopram Oxalate 10 mg 03/29/24 09:15 03/29/24 09:48 Escitalopram 10 Mg Tab PO Not Given DAILY@0800 [facility] Famotidine 20 mg 03/27/24 08:00 03/29/24 09:02 Famotidine 20 Mg Tab PO 20 mg DAILY@0800 [facility] Administration Ferrous Sulfate 325 mg 03/27/24 17:00 03/28/24 16:41 Ferrous Sulfate 325 Mg Tab PO 325 mg DAILY@1700 [facility] Administration Folic Acid 1 mg 03/27/24 12:00 03/27/24 09:51 Folic Acid 1 Mg Tab PO 1 mg DAILY@1200 [facility] Administration Gabapentin 400 mg 03/27/24 21:00 03/28/24 20:45 Gabapentin 400 Mg Cap PO 400 mg HS@2100 [facility] Administration Hydromorphone HCl 0.5 mg 03/26/24 18:35 03/29/24 06:08 Hydromorphone 0.5 Mg/0.5 Ml Syringe IVP 0.5 mg Q3HR PRN Administration Moderate Pain (Scale 4 to 6) Sodium Chloride 1,000 mls @ 75 mls/hr 03/26/24 18:45 03/29/24 05:18 Saline 0.9% IV 75 mls/hr .[id number] YESY Administration Daptomycin 300 mg/ Sodium 50 mls @ 100 mls/hr 03/27/24 20:00 03/28/24 19:53 Chloride IVPB 100 mls/hr Q24H [facility] Administration Protocol Cefepime HCl 2 gm/ Sodium 100 mls @ 25 mls/hr 03/28/24 00:00 03/28/24 23:59 Chloride IVPB 25 mls/hr Q12H [facility] Administration Protocol Insulin Aspart 8 unit 03/27/24 08:00 03/29/24 09:48 Insulin Aspart (Novolog) 100 Unit/Ml Vial SQ Not Given TID@0800,1200,1700 [facility] Insulin Aspart 0 unit 03/27/24 07:30 03/29/24 07:44 Insulin Aspart (Novolog) 100 Unit/Ml Vial SQ Not Given ACHS [facility] Protocol Insulin Detemir 13 unit 03/27/24 07:00 03/29/24 08:58 Insulin Detemir (Levemir) 100 Unit/Ml Syr SQ 13 unit BID@0700,2100 [facility] Administration Isosorbide Mononitrate 30 mg 03/27/24 08:00 03/29/24 09:00 Isosorbide Mononitrate Er 30 Mg Tab.Er.24h PO 30 mg DAILY@0800 [facility] Administration Lactic Acid 1 applic 03/26/24 23:05 Ammonium Lactate 12% Cream 140 Gm Tube TOPICAL BID PRN Dry Skin Protocol Lactulose 20 gm 03/27/24 10:27 Lactulose 20 Gm/30 Ml Cup PO DAILY PRN Constipation Levothyroxine Sodium 150 mcg 03/27/24 06:30 03/29/24 05:18 Levothyroxine 75 Mcg Tab PO 150 mcg DAILY@0630 [facility] Administration Magnesium Hydroxide 7,200 mg 03/26/24 23:12 Magnesium Hydroxide 2,400 Mg/30 Ml Cup PO Q48H PRN Constipation Melatonin 3 mg 03/27/24 10:27 Melatonin 3 Mg Tablet PO HS PRN Insomnia Metoprolol Tartrate 50 mg 03/27/24 08:00 03/29/24 09:01 Metoprolol Tartrate 50 Mg Tab PO 50 mg BID@0800,1700 [facility] Administration Multivitamins 1 each 03/27/24 12:00 03/27/24 09:51 Multivitamins, Thera 1 Each Tab PO 1 each DAILY@1200 [facility] Administration Naloxone HCl 0.2 mg 03/26/24 18:35 Naloxone 0.4 Mg/Ml 1 Ml Vial IV Q2M PRN Opioid Reversal Non-Formulary Medication 1.5 mg 03/28/24 09:00 03/28/24 08:25 Dulaglutide [Trulicity] SQ Not Given TH [facility] Nystatin 1 applic 03/27/24 09:00 03/29/24 09:55 Nystatin 100,000 Unit/Gm Powd 15 Gm TOPICAL 1 applic TID [facility] Administration Protocol Ondansetron HCl 4 mg 03/26/24 23:12 Ondansetron 4 Mg Tab PO Q8H PRN Nausea And Vomiting Pantoprazole Sodium 40 mg 03/27/24 07:30 03/29/24 09:00 Pantoprazole 40 Mg Tablet PO 40 mg [id number] [facility] Administration Petrolatum 1 applic 03/26/24 23:45 05/30/24 23:59 Petrolatum, White Oint 50 Gm Tube TOPICAL 1 applic TUTHSA YESY Administration Protocol Tamsulosin HCl 0.4 mg 03/27/24 21:00 03/28/24 20:43 Tamsulosin 0.4 Mg Cap.Er.24h PO 0.4 mg HS@2100 YESY Administration Thiamine HCl 100 mg 03/27/24 07:30 03/29/24 09:00 Thiamine 100 Mg Tab PO 100 mg BID-W/MEALS YESY Administration Intake and Output 03/28/24 03/29/24 03/29/24 22:59 06:59 14:59 Intake Total 360 Output Total 1200 900 Balance -840 -900 Intake: Oral 360 Output: Urine 1200 900 Other: Voiding Method Urinal # Voids 1 03/29/24 06:27 03/29/24 06:27
--- NOTE | 2024-03-29 16:22 | P.PN ---
Progress Note - Text Progress Note Date: 03/29/24 Chief Complaint: Left foot infection This is a 73-year-old patient, follows Dr. Bell. Patient was seen by me in the ER. Chronic stable medical condition include CAD, diabetes, GERD, hypertension, hyperlipidemia, neuropathy. CAD with bypass and stent. PAD. Depression panic disorder. Patient's sister is his legal guardian: Radha Patient presents to the ER with left foot infection. He has had different wounds and follows up with the wound care center by Dr. Fiore. He was treated for a left heel wound. Also has had a great toe wound. Patient has been having increasing pain in the left bone. Apparently drainage from the left foot. Somewhat tender. Patient's sister and daughter at the bedside. Appetite is fair. March 27, 2024: Admitted with left foot infection deep tissue/abscess. Spoke with Dr. Pascal from vascular. He will be going out of town. Will consult Dr. Romeo from vascular. ID following. Oral intake good. Patient diabetes appears to be brittle. Follow March 28, 2024: Spoke to patient's sister German yesterday. She did confirm that she is a legal guardian takes all decisions for the patient. I did convey this to Dr. Romeo from vascular. Patient's sister was okay with proceeding with surgical intervention including amputation if so felt by Dr. Romeo. This morning HARD TILE SETTER Анна informed me that doctors for reevaluation patient was always a standing and able to decline surgery. They placed ethics consult for the same. I did speak to the hospital apprise counselor Mrs. Frost, to assist in the situation. I spoke to the patient and explained to him the reason surgery is offering operation because it is felt antibiotics would not really help. Patient was initially irritated but then said he will proceed for surgery. I did communicate this to Анна BIRD. Meantime patient to continue with antibiotics. urgency of surgery is to be determined by Dr. Romeo. Await further input. March 29: Patient underwent CT angiogram lower extremity. Discussed with Dr. Romeo. Plan for surgical intervention likely bypass on Monday. Cardiology clearance requested. I did try to reach patient's sister on the phone. This morning- Unsuccessful. Did talk to the patient.-He is agreeable to proceed with bypass. Tentatively he is being boarded for next Monday. I am being covered by [facility] starting tomorrow. Tried reaching the sister again at about 4:20 PM.- Unable to get through Active Medications Acetaminophen (Acetaminophen Tab 325 Mg Tab) 650 mg PO Q6HR PRN PRN Reason: Mild Pain or Fever > 100.5 Hydrocodone Bitart/Acetaminophen (Hydrocodone/Apap 5-325mg 1 Each Tab) 1 each PO Q4HR PRN PRN Reason: Pain Last Admin: 03/28/24 20:43 Dose: 1 each Albuterol/Ipratropium (Ipratropium-Albuterol 3 Ml Neb) 3 ml INHALATION RT-Q6H [facility] Last Admin: 03/29/24 15:48 Dose: Not Given Alprazolam (Alprazolam 0.25 Mg Tab) 0.25 mg PO DAILY PRN PRN Reason: Anxiety Last Admin: 03/28/24 15:38 Dose: 0.25 mg Aminophylline (Aminophylline 500 Mg/20 Ml Vial) 100 mg IV ONCE PRN PRN Reason: Patient Response Stop: 04/01/24 23:00 Amlodipine Besylate (Amlodipine 5 Mg Tab) 5 mg PO BID@0800,2000 [facility] Last Admin: 03/29/24 09:00 Dose: 5 mg Aspirin (Aspirin 81 Mg) 81 mg PO DAILY@1700 [facility] Last Admin: 03/28/24 16:41 Dose: 81 mg Benzonatate (Benzonatate 100 Mg Cap) 100 mg PO TID PRN PRN Reason: Cough Bisacodyl (Bisacodyl 10 Mg Supp) 10 mg RECTAL DAILY PRN PRN Reason: Constipation Caffeine Citrate (Caffeine Citrate 60 Mg/3 Ml Vial) 60 mg IV ONCE PRN PRN Reason: Patient Response Stop: 04/01/24 23:00 Calcium Carbonate/Glycine (Calcium Carbonate 500 Mg Chewable) 1,000 mg PO Q4HR PRN PRN Reason: Dyspepsia Cholecalciferol (Cholecalciferol 25 Mcg (1000 Iu) Tablet) 25 mcg PO DAILY@0800 [facility] Last Admin: 03/29/24 09:00 Dose: 25 mcg Collagenase (Collagenase 250 Unit/Gm Ointment 30 Gm Tube) 1 applic TOPICAL DAILY [facility]; Protocol Last Admin: 03/29/24 09:02 Dose: 1 applic Dapagliflozin (Dapagliflozin Propanediol 10 Mg Tablet) 10 mg PO DAILY@0800 [facility] Last Admin: 03/29/24 09:00 Dose: 10 mg Dextrose/Water (Dextrose 50% Syringe 50 Ml) 25 ml IVP PER PROTOCOL PRN; Protocol PRN Reason: Hypoglycemia Dextrose/Water (Dextrose 50% Syringe 50 Ml) 50 ml IVP PER PROTOCOL PRN; Protocol PRN Reason: Hypoglycemia Enoxaparin Sodium (Enoxaparin 40 Mg/0.4 Ml Syringe) 40 mg SQ DAILY@0800 [facility] Last Admin: 03/29/24 08:58 Dose: 40 mg Escitalopram Oxalate (Escitalopram 10 Mg Tab) 10 mg PO DAILY@0800 [facility] Last Admin: 03/29/24 09:48 Dose: Not Given Famotidine (Famotidine 20 Mg Tab) 20 mg PO DAILY@0800 [facility] Last Admin: 03/29/24 09:02 Dose: 20 mg Ferrous Sulfate (Ferrous Sulfate 325 Mg Tab) 325 mg PO DAILY@1700 [facility] Last Admin: 03/28/24 16:41 Dose: 325 mg Folic Acid (Folic Acid 1 Mg Tab) 1 mg PO DAILY@1200 [facility] Last Admin: 03/29/24 13:02 Dose: 1 mg Gabapentin (Gabapentin 400 Mg Cap) 400 mg PO HS@2100 [facility] Last Admin: 03/28/24 20:45 Dose: 400 mg Hydromorphone HCl (Hydromorphone 0.5 Mg/0.5 Ml Syringe) 0.5 mg IVP Q3HR PRN PRN Reason: Moderate Pain (Scale 4 to 6) Last Admin: 03/29/24 15:31 Dose: 0.5 mg Sodium Chloride (Saline 0.9%) 1,000 mls @ 75 mls/hr IV .[id number] [facility] Last Admin: 03/29/24 05:18 Dose: 75 mls/hr Daptomycin 300 mg/ Sodium (Chloride) 50 mls @ 100 mls/hr IVPB Q24H [facility]; Protocol Last Admin: 03/28/24 19:53 Dose: 100 mls/hr Cefepime HCl 2 gm/ Sodium (Chloride) 100 mls @ 25 mls/hr IVPB Q12H [facility]; Protocol Last Admin: 03/29/24 13:00 Dose: 25 mls/hr Insulin Aspart (Insulin Aspart (Novolog) 100 Unit/Ml Vial) 8 unit SQ TID@0800,1200,1700 [facility] Last Admin: 03/29/24 13:01 Dose: 8 unit Insulin Aspart (Insulin Aspart (Novolog) 100 Unit/Ml Vial) 0 unit SQ ACHS [facility]; Protocol Last Admin: 03/29/24 13:01 Dose: 6 unit Insulin Detemir (Insulin Detemir (Levemir) 100 Unit/Ml Syr) 13 unit SQ BID@0700,2100 [facility] Last Admin: 03/29/24 08:58 Dose: 13 unit Isosorbide Mononitrate (Isosorbide Mononitrate Er 30 Mg Tab.Er.24h) 30 mg PO DAILY@0800 [facility] Last Admin: 03/29/24 09:00 Dose: 30 mg Lactic Acid (Ammonium Lactate 12% Cream 140 Gm Tube) 1 applic TOPICAL BID PRN; Protocol PRN Reason: Dry Skin Lactulose (Lactulose 20 Gm/30 Ml Cup) 20 gm PO DAILY PRN PRN Reason: Constipation Levothyroxine Sodium (Levothyroxine 75 Mcg Tab) 150 mcg PO DAILY@0630 [facility] Last Admin: 03/29/24 05:18 Dose: 150 mcg Magnesium Hydroxide (Magnesium Hydroxide 2,400 Mg/30 Ml Cup) 7,200 mg PO Q48H PRN PRN Reason: Constipation Melatonin (Melatonin 3 Mg Tablet) 3 mg PO HS PRN PRN Reason: Insomnia Metoprolol Tartrate (Metoprolol Tartrate 50 Mg Tab) 50 mg PO BID@0800,1700 [facility] Last Admin: 03/29/24 09:01 Dose: 50 mg Multivitamins (Multivitamins, Thera 1 Each Tab) 1 each PO DAILY@1200 [facility] Last Admin: 03/29/24 13:01 Dose: 1 each Naloxone HCl (Naloxone 0.4 Mg/Ml 1 Ml Vial) 0.2 mg IV Q2M PRN PRN Reason: Opioid Reversal Non-Formulary Medication (Dulaglutide [Trulicity]) 1.5 mg SQ TH [facility] Last Admin: 03/28/24 08:25 Dose: Not Given Nystatin (Nystatin 100,000 Unit/Gm Powd 15 Gm) 1 applic TOPICAL TID [facility]; Protocol Last Admin: 03/29/24 09:55 Dose: 1 applic Ondansetron HCl (Ondansetron 4 Mg Tab) 4 mg PO Q8H PRN PRN Reason: Nausea And Vomiting Pantoprazole Sodium (Pantoprazole 40 Mg Tablet) 40 mg PO -BRKFST [facility] Last Admin: 03/29/24 09:00 Dose: 40 mg Petrolatum (Petrolatum, White Oint 50 Gm Tube) 1 applic TOPICAL TUTHSA [facility]; Protocol Last Admin: 03/28/24 23:59 Dose: 1 applic Regadenoson (Regadenoson 0.4 Mg/5 Ml Syringe) 0.4 mg IV ONCE PRN PRN Reason: Per Protocol Stop: 04/01/24 14:00 Tamsulosin HCl (Tamsulosin 0.4 Mg Cap.Er.24h) 0.4 mg PO HS@2100 [facility] Last Admin: 03/28/24 20:43 Dose: 0.4 mg Thiamine HCl (Thiamine 100 Mg Tab) 100 mg PO BID-W/MEALS [facility] Last Admin: 03/29/24 09:00 Dose: 100 mg Social history: Former smoker. Patient's sister denies a legal guardian Physical examination: VITAL SIGNS: 98.7, 65, 18, 143 x 57, 96% room air GENERAL: Resting in bed, EYES: Pupils equal. Conjunctiva cindy l. HEENT: External appearance of nose and ears normal, oral cavity grossly normal. NECK: JVD not raised; masses not palpable. HEART: First and second heart sounds are normal; no edema. LUNGS: Respiratory rate normal; decreased breath sounds. ABDOMEN: Soft, nontender, liver spleen not palpable, no masses palpable. PSYCH: Patient agreeable to proceed with bypass surgery lower extremity-had discussed with Dr. Romeo earlier today. MUSCULOSKELETAL:No Clubbing/cyanosis;muscles-grossly intact. Left foot is swollen. Some wounds including the dorsum. Tender. Some drainage. NEUROLOGICAL: Stuttering speech. INVESTIGATIONS, reviewed in the clinical context: March 29: White count 8.8 hemoglobin 10.7 potassium 5 BUN 44 creatinine 1.78 March 27, 2024: White count 6.4 hemoglobin 9.6 platelets 334 sodium 134 potassium 5.5 BUN 58 creatinine 1.9 blood glucose 340 March 26, 2024: White count 7.7 hemoglobin 9.5 platelets 448 sodium 135 potassium 5.8 BUN 67 creatinine 1.8 EKG tracing personally reviewed by me-normal sinus rhythm. Rate 81 Left foot x-ray: Focal areas of osteopenia subtle periostitis at the posterior calcaneus. Soft tissue swelling around the great toe. Previous labs: Creatinine 1.44 on February 15 Assessment plan: -Suspect abscess of the left foot and possible soft tissue deep infection. Foot is rather swollen and tender and areas of drainage. Patient has known PAD and also underlying diabetes. Previous cultures that showed growing MRSA and Pseudomonas.: Improving Dr. Romeo from vascular:: Offered amputation to the patient. Patient declined surgery to Dr. Romeo. As per my discussion with the patient today he is agreeable for the same. CT angiogram shows significant lower extremity disease. Dr. Romeo is leaning towards bypass this coming Monday. Cardiology clearance requested: They have ordered a Lexiscan stress test for Monday Wound culture, blood culture pending ID following -Hyperlipidemia Lipitor 80 mg nightly -Diabetes mellitus type 2, uncontrolled with hyperglycemia. Brittle Follow Accu-Cheks with sliding scale Jardiance 25 mg a day Trulicity. Levemir. 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 Add Lokelma 10 mg 3 times daily -BPH Flomax 0.4 mg nightly -GERD Pepcid 20 mg a day -Hypothyroid Synthroid 150 mcg a day -Peripheral arterial disease Lipitor -Cognitive impairment -CAD with a prior history of coronary bypass and stent Lopressor 50 mg twice daily -Chronic wound to the left foot follows at the wound care center -Full code -Legal guardian, Sister Radha: Legal guardian makes all decisions for the patient. Cardiology consult requested. For medical clearance. Lexiscan ordered for Monday. Patient today agreeable for possible lower extremity bypass surgery. Being scheduled for next Monday by Dr. Romeo. Antibiotics to continue. Past Medical History Past Medical History: Coronary Artery Disease (CAD), Diabetes Mellitus, GERD/Reflux, Hyperlipidemia, Hypertension, Myocardial Infarction ([place]), Thyroid Disorder Additional Past Medical History / Comment(s): neuropathy, diabetic coma in 2000 and pt's sister has had legal guardianship since. Last Myocardial Infarction Date:: unknown History of Any Multi-Drug Resistant Organisms: ESBL, MRSA, MRSA Date of last positivie culture/infection: 11/23/23-MRSA; 09/25/23 ESBL MDRO Source:: Left Heel-MRSA; Blood-ESBL Past Surgical History: Appendectomy, Coronary Bypass/CABG, Heart Catheterization With Stent Additional Past Surgical History / Comment(s): Sister relays, "He had peripheral artery surgery too." Past Anesthesia/Blood Transfusion Reactions: No Reported Reaction Date of Last Stent Placement:: unknown Past Psychological History: Depression, Panic Disorder Smoking Status: Former smoker Past Alcohol Use History: Daily Past Drug Use History: Marijuana
--- NOTE | 2024-03-29 16:24 | P.PN ---
Subjective Progress Note Date: 03/29/24 Principal diagnosis: Reason for follow-up is left diabetic foot infection Patient is a 73-year-old male with a past medical history significant for diabetes mellitus hypertension hyperlipidemia AL coronary artery disease patient did have a history of left heel infected pressure ulcer with underlying osteomyelitis for the patient has completed his antibiotic therapy, patient presenting to the hospital with worsening wound and discoloration to the left big toe concerning for diabetic foot infection. On today's evaluation that is 03/29/2024, the patient continues to be afebrile, the patient is on room air and breathing comfortably, the Pt denies having any chest pain or cough, the patient denies having any abdominal pain no vomiting or any diarrhea denies any worsening pain to the left lower extremity. Patient did well for 8.8, creatinine 1.78 cultures currently pending Objective - Vital Signs Vital signs: Vital Signs Temp 98.7 F 03/29/24 07:16 Pulse 76 03/29/24 07:16 Resp 16 03/29/24 07:16 BP 147/65 03/29/24 07:16 Pulse Ox 92 L 03/29/24 07:16 FiO2 Intake & Output 03/28/24 03/29/24 03/29/24 18:59 06:59 18:59 Intake Total 360 Output Total 1200 900 700 Balance -840 -900 -700 Intake: Oral 360 Output: Urine 1200 900 700 Other: Voiding Method Urinal Urinal Urinal External Catheter # Voids 1 1 # Bowel Movements 1 - Exam GENERAL DESCRIPTION: An elderly male lying in bed in no distress RESPIRATORY SYSTEM: Unlabored breathing , decreased breath sounds at bases HEART: S1 S2 regular rate and rhythm , ABDOMEN: Soft , no tenderness EXTREMITIES: Left big toe with some discoloration did have some superficial elevation to the left foot no foul-smelling drainage - Labs CBC & Chem 7: 03/29/24 06:27 03/29/24 06:27 Labs: Abnormal Lab Results - Last 24 Hours (Table) 03/28/24 03/28/24 03/29/24 Range/Units 16:59 20:33 06:27 RBC 3.74 L (4.30-5.90) m/uL Hgb 10.7 L (13.0-17.5) gm/dL Hct 35.7 L (39.0-53.0) % MCHC 30.0 L (31.0-37.0) g/dL Lymphocytes # 0.6 L (1.0-4.8) k/uL Chloride (98-107) mmol/L Carbon Dioxide (22-30) mmol/L BUN (9-20) mg/dL Creatinine (0.66-1.25) mg/dL POC Glucose (mg/dL) 183 H 184 H (70-110) mg/dL 03/29/24 03/29/24 03/29/24 Range/Units 06:27 07:14 11:57 RBC (4.30-5.90) m/uL Hgb (13.0-17.5) gm/dL Hct (39.0-53.0) % MCHC (31.0-37.0) g/dL Lymphocytes # (1.0-4.8) k/uL Chloride 110 H (98-107) mmol/L Carbon Dioxide 20 L (22-30) mmol/L BUN 44 H (9-20) mg/dL Creatinine 1.78 H (0.66-1.25) mg/dL POC Glucose (mg/dL) 133 H 273 H (70-110) mg/dL Microbiology - Last 24 Hours (Table) 03/26/24 16:30 Gram Stain - Final Foot - Left Wound Culture - Final 03/26/24 16:30 Anaerobic Culture - Final Toe - Left First 03/26/24 16:10 Blood Culture - Preliminary Blood 03/26/24 15:55 Blood Culture - Preliminary Blood Assessment and Plan (1) Diabetic infection of left foot Current Visit: Yes Status: Acute Code(s): E11.628 - TYPE 2 DIABETES MELLITUS WITH OTHER SKIN COMPLICATIONS; L08.9 - LOCAL INFECTION OF THE SKIN AND SUBCUTANEOUS TISSUE, UNSP SNOMED Code(s): 59265911 (2) Type 2 diabetes mellitus with foot ulcer Current Visit: No Status: Acute Code(s): E11.621 - TYPE 2 DIABETES MELLITUS WITH FOOT ULCER; L97.509 - NON-PRESSURE CHRONIC ULCER OTH PRT UNSP FOOT W UNSP SEVERITY SNOMED Code(s): 485908893 Plan: 1patient being admitted to the hospital with worsening wound to the left big toe in this patient with underlying history of diabetes mellitus and also a history left heel osteomyelitis for the patient has completed antibiotic therapy patient has shown overall improvement in almost healing of the left heel wound now with wound to the left big toe has some superficial solution to the left foot concerning for diabetic foot wound and secondary cellulitis will need to call for the resistant gram-positive as well as gram-negative pathogen as the patient has previously grown MRSA and Pseudomonas 2-patient with renal insufficiency and high risk of nephrotoxicity from vancomycin 3-local culture has been obtained and results are currently pending 4-patient is currently covered with cefepime and daptomycin while waiting for the culture to finalize to determine discharge antibiotics Family bedside questions answered Dictation was produced using [employer] dictation software. please excuse any grammatical, word or spelling errors. Time with Patient: Less than 30
[2024-03-29 17:10] LABS: Glucose,Whole Blood 105 mg/dL (70-110)
[2024-03-29 20:18] LABS: Glucose,Whole Blood 230 mg/dL (70-110)
[2024-03-30 07:21] LABS: Glucose,Whole Blood 112 mg/dL (70-110)
[2024-03-30 12:04] LABS: Glucose,Whole Blood 214 mg/dL (70-110)
--- NOTE | 2024-03-30 12:20 | P.PN ---
Subjective Progress Note Date: 03/30/24 The patient is a 73-year-old male who was admitted to the hospital with osteomyelitis. Cardiology was consulted for preoperative clearance prior to left lower extremity amputation. Echocardiogram revealed ejection fraction at 50% with anterior hypokinesia therefore it is recommended that he undergo stress testing prior to general anesthesia. Patient was interviewed and examined sitting up on the side of his bed. He states he does have claudication discomfort in his left lower extremity, even at rest. No chest pain or chest pressure. No difficulty breathing. GENERAL: Well-appearing, well-nourished and in no acute distress. NECK: Supple without JVD or thyromegaly. LUNGS: Breath sounds coarse to auscultation bilaterally. Respiration equal and unlabored. Bilateral rhonchi HEART: Regular rate and rhythm without murmurs, rubs or gallops. S1 and S2 heard. EXTREMITIES: Normal range of motion. Multiple diabetic ulcers, ischemic changes to left great toe. TELEMETRY: Sinus mechanism overnight IMPRESSION: Preoperative clearance, stress test pending Monday Severe peripheral arterial disease Ischemic diabetic wound left great toe History of left heel osteomyelitis History of coronary artery disease with previous CABG Hypertension Diabetes with A1c 9.3 Chronic kidney disease Dyslipidemia History of CVA PLAN: KVO fluids Stress test pending Monday for preoperative clearance If no evidence of ischemia, patient may proceed I am dictating on behalf of Dr Virgilio Nair's history/physical and assessment/plan. Objective - Vital Signs Vital signs: Vital Signs Temp 98.6 F 03/30/24 07:21 Pulse 100 03/30/24 07:21 Resp 20 03/30/24 07:21 BP 172/67 03/30/24 07:21 Pulse Ox 93 L 03/30/24 07:21 FiO2 Intake & Output 03/29/24 03/30/24 03/30/24 18:59 06:59 18:59 Intake Total 1550 Output Total 1300 1400 350 Balance -1300 150 -350 Weight 75.75 kg Intake: Intake, IV Titration 950 Amount Cefepime 2 gm In Sodium 100 Chloride 0.9% 100 ml @ 25 mls/hr IVPB Q12H [facility] Rx# :[id number] DAPTOmycin 300 mg In 50 Sodium Chloride 0.9% 50 ml @ 100 mls/hr IVPB Q24H [facility] Rx#:[id number] Sodium Chloride 0.9% 1, 800 000 ml @ 75 mls/hr IV . [id number] Rx#:[id number] Oral 600 Output: Urine 1300 1400 350 Other: Voiding Method Urinal Urinal External Catheter External Catheter - Labs CBC & Chem 7: 03/29/24 06:27 03/29/24 06:27 Labs: Abnormal Lab Results - Last 24 Hours (Table) 03/29/24 03/29/24 03/30/24 Range/Units 11:57 20:15 07:19 POC Glucose (mg/dL) 273 H 230 H 112 H (70-110) mg/dL Microbiology - Last 24 Hours (Table) 03/26/24 16:10 Blood Culture - Preliminary Blood 03/26/24 15:55 Blood Culture - Preliminary Blood 03/26/24 16:30 Gram Stain - Final Foot - Left Wound Culture - Final
[2024-03-30 17:09] LABS: Glucose,Whole Blood 64 mg/dL (70-110)
[2024-03-30] MEDS: FUROSEMIDE 10 MG/ML 2 ML VIAL IV STA (17:24)
[2024-03-30 17:33] LABS: Glucose,Whole Blood 144 mg/dL (70-110)
[2024-03-30 19:58] LABS: Glucose,Whole Blood 338 mg/dL (70-110)
--- NOTE | 2024-03-31 06:30 | P.PN ---
Subjective Progress Note Date: 03/30/24 Chief Complaint: Left foot infection This is a 73-year-old patient, follows Dr. Bell. Patient was seen by me in the ER. Chronic stable medical condition include CAD, diabetes, GERD, hypertension, hype rlipidemia, neuropathy. CAD with bypass and stent. PAD. Depression panic disorder. Patient's sister is his legal guardian: Radha Patient presents to the ER with left foot infection. He has had different wounds and follows up with the wound care center by Dr. Fiore. He was treated for a left heel wound. Also has had a great toe wound. Patient has been having increasing pain in the left bone. Apparently drainage from the left foot. Somewhat tender. Patient's sister and daughter at the bedside. Appetite is fair. March 27, 2024: Admitted with left foot infection deep tissue/abscess. Spoke with Dr. Pascal from vascular. He will be going out of town. Will consult Dr. Romeo from [facility]. ID following. Oral intake good. Patient diabetes appears to be brittle. Follow March 28, 2024: Spoke to patient's sister German yesterday. She did confirm that she is a legal guardian takes all decisions for the patient. I did convey this to Dr. Romeo from vascular. Patient's sister was okay with proceeding with surgical intervention including amputation if so felt by Dr. Romeo. This morning MARGE Jj informed me that doctors for reevaluation patient was always a standing and able to decline surgery. They placed ethics consult for the same. I did speak to the hospital legal services manager Mrs. Frost, to assist in the situation. I spoke to the patient and explained to him the reason surgery is offering operation because it is felt antibiotics would not really help. Patient was initially irritated but then said he will proceed for surgery. I did communicate this to Анна BIRD. Meantime patient to continue with antibiotics. urgency of surgery is to be determined by Dr. Romeo. Await further input. March 29: Patient underwent CT angiogram lower extremity. Discussed with Dr. Romeo. Plan for surgical intervention likely bypass on Monday. Cardiology clearance requested. I did try to reach patient's sister on the phone. This morning- Unsuccessful. Did talk to the patient.-He is agreeable to proceed with bypass. Tentatively he is being boarded for next Monday. I am being covered by [facility] starting tomorrow. Tried reaching the sister again at about 4:20 PM.-Unable to get through 03/30/2024 Patient is seen in follow-up this morning currently laying in bed and lower extremities chcf hanging off the bed. Patient appears to be slightly confused although this is baseline and patient is able to have conversation. Multiple consultations following including cardiology and vascular surgery. Patient awaiting to undergo stress test on Monday with cardiology for clearance for possible tentative left femoral endarterectomy and femoral to tibial bypass with CryoVein that is scheduled on Monday if medically cleared and cardiology clears. Attempting to contact family to confirm consent. Patient continues on antibiotics with infectious disease following with concerns of left lower extremity cellulitis. Discussion is also being had about possible BKA. Patient is currently afebrile with no reports of chest pain or shortness of breath. Patient reports to tolerating diet with no reported nausea or vomiting. Blood sugars are uncontrolled and will adjust medications accordingly and recommend to continue monitoring Accu-Cheks ACHS as well as 2 AM as needed Physical examination: GENERAL: This is a 73-year-old male who is awake, alert and oriented x 2, appears mildly confused at baseline, able to answer questions appropriately, well-developed, elderly appearing, ill-appearing EYES: Pupils equal. Conjunctiva normal. HEENT: External appearance of nose and ears normal, oral cavity grossly normal. NECK: JVD not raised; masses not palpable. HEART: S1, S2 are muffled LUNGS: Diminished breath sounds bilaterally with some scattered rhonchi noted respiratory rate normal; no accessory muscle use noted ABDOMEN: Soft, nontender, positive bowel sounds noted, no masses palpable. PSYCH: Patient agreeable to proceed with bypass surgery lower extremity-had discussed with Dr. Romeo earlier today. MUSCULOSKELETAL:No Clubbing/cyanosis;muscles-grossly intact. Left foot with swelling, dressing is dry and intact currently. Some wounds including the dorsum. Tender. NEUROLOGICAL: Stuttering speech. Assessment: -Suspect abscess of the left foot and possible soft tissue deep infection. Foot is rather swollen and tender and areas of drainage. Patient has known PAD and also underlying diabetes. Previous cultures that showed growing MRSA and Pseudomonas.: Improving -Hyperlipidemia, continue statin therapy -Diabetes mellitus type 2, uncontrolled with hyperglycemia. 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 Romeo following and discussed and offered amputation to the patient. Patient declined surgery to Dr. Romeo. Tentatively discussing surgical intervention for next week Monday Cardiology consulted for medical clearance and will be scheduled to undergo stress test on Monday Continue monitoring Accu-Cheks before meals and at bedtime and 2 AM and will adjust insulins accordingly Continue with local wound care Continue IV antibiotics with infectious disease following and awaiting finalized cultures. Patient has a legal guardian, Sister Radha: Legal guardian makes all decisions for the patient. Have been attempting to contact her regarding consent which has been unsuccessful. Repeat labs and replace electrolytes per protocol Will need PT/OT therapy evaluation and ECF on discharge. Case management/social work consulted The impression and plan of care has been dictated by Aileen Poon, Nurse Practitioner as directed. Dr. Karlie MD I have performed a history and examination and MDM of this patient, discussed the same with the dictator, and agree with the dictator's assessment and plan as written ,documented as a scribe. Based on total visit time, I have performed more than 50% of the visit. Objective - Vital Signs Vital signs: Vital Signs Temp 98.6 F 03/30/24 07:21 Pulse 100 03/30/24 07:21 Resp 20 03/30/24 07:21 BP 172/67 03/30/24 07:21 Pulse Ox 93 L 03/30/24 07:21 FiO2 Intake & Output 03/29/24 03/30/24 03/30/24 18:59 06:59 18:59 Intake Total 1550 Output Total 1300 1400 350 Balance -1300 150 -350 Weight 75.75 kg Intake: Intake, IV Titration 950 Amount Cefepime 2 gm In Sodium 100 Chloride 0.9% 100 ml @ 25 mls/hr IVPB Q12H [facility] Rx# :[id number] DAPTOmycin 300 mg In 50 Sodium Chloride 0.9% 50 ml @ 100 mls/hr IVPB Q24H [facility] Rx#:[id number] Sodium Chloride 0.9% 1, 800 000 ml @ 75 mls/hr IV . [id number] [facility] Rx#:[id number] Oral 600 Output: Urine 1300 1400 350 Other: Voiding Method Urinal Urinal External Catheter External Catheter - Labs CBC & Chem 7: 03/29/24 06:27 03/29/24 06:27 Labs: Abnormal Lab Results - Last 24 Hours (Table) 03/29/24 03/29/24 03/30/24 Range/Units 11:57 20:15 07:19 POC Glucose (mg/dL) 273 H 230 H 112 H (70-110) mg/dL Microbiology - Last 24 Hours (Table) 03/26/24 16:10 Blood Culture - Preliminary Blood 03/26/24 15:55 Blood Culture - Preliminary Blood 03/26/24 16:30 Gram Stain - Final Foot - Left Wound Culture - Final
[2024-03-31 07:23] LABS: Glucose,Whole Blood 263 mg/dL (70-110)
[2024-03-31 07:42] LABS: Basophils % (A) 1 %; Eosinophils # (A) 0.3 k/uL (0-0.7); Eosinophils % (A) 4 %; HCT 33.8 % (39.0-53.0); HGB 10.1 gm/dL (13.0-17.5); Hypochromasia Moderate; Lymphocytes # (A) 0.6 k/uL (1.0-4.8); Lymphocytes % (A) 8 %; MCH 28.3 pg (25.0-35.0); MCHC 29.9 g/dL (31.0-37.0); MCV 94.6 fL (80.0-100.0); Mean Platelet Volume 7.8; Monocytes # (A) 0.4 k/uL (0-1.0); Monocytes % (A) 5 %; Neutrophils # (A) 6.3 k/uL (1.3-7.7); Neutrophils % (A) 81 %; Platelet Count 322 k/uL (150-450); RBC 3.58 m/uL (4.30-5.90); RDW 14.3 % (11.5-15.5); WBC 7.8 k/uL (3.8-10.6)
[2024-03-31 08:01] LABS: ALT 17 U/L (4-49); AST 25 U/L (17-59); African American GFR (CKD) 48 (>60 ml/min/1.73 sqM); Albumin 3.1 g/dL (3.5-5.0); Albumin/Globulin Ratio 0.8; Alkaline Phosphatase 102 U/L (38-126); Anion Gap 8 mmol/L; Blood Urea Nitrogen 52 mg/dL (9-20); Calcium 8.4 mg/dL (8.4-10.2); Carbon Dioxide 18 mmol/L (22-30); Chloride 110 mmol/L (98-107); Globulin 3.9 g/dL; Glucose 245 mg/dL (74-99); Magnesium 1.9 mg/dL (1.6-2.3); Non-African American GFR(CKD) 41 (>60 ml/min/1.73 sqM); Potassium 4.8 mmol/L (3.5-5.1); Sodium 136 mmol/L (137-145); Total Bilirubin 0.6 mg/dL (0.2-1.3)
--- NOTE | 2024-03-31 11:03 | P.PN ---
Subjective Progress Note Date: 03/30/24 Principal diagnosis: Reason for follow-up is left diabetic foot infection Patient is a 73-year-old male with a past medical history significant for diabetes mellitus hypertension hyperlipidemia IA coronary artery disease patient did have a history of left heel infected pressure ulcer with underlying osteomyelitis for the patient has completed his antibiotic therapy, patient presenting to the hospital with worsening wound and discoloration to the left big toe concerning for diabetic foot infection. On today's evaluation that is 03/30/2024, Patient is afebrile patient is currently on room air and denies having any shortness of breath, the patient denies any chest pain or cough, the patient denies any nausea vomiting did not have any abdominal pain and no diarrhea, denies any worsening pain to the left lower extremity. Patient white count is 8.8, creatinine is 1.78 cultures so far negative Objective - Vital Signs Vital signs: Vital Signs Temp 98.6 F 03/30/24 07:21 Pulse 100 03/30/24 07:21 Resp 20 03/30/24 07:21 BP 172/67 03/30/24 07:21 Pulse Ox 93 L 03/30/24 07:21 FiO2 Intake & Output 03/29/24 03/30/24 03/30/24 18:59 06:59 18:59 Intake Total 1550 Output Total 1300 1400 750 Balance -1300 150 -750 Weight 75.75 kg Intake: Intake, IV Titration 950 Amount Cefepime 2 gm In Sodium 100 Chloride 0.9% 100 ml @ 25 mls/hr IVPB Q12H [facility] Rx# :[id number] DAPTOmycin 300 mg In 50 Sodium Chloride 0.9% 50 ml @ 100 mls/hr IVPB Q24H [facility] Rx#:[id number] Sodium Chloride 0.9% 1, 800 000 ml @ 75 mls/hr IV . [id number] [facility] Rx#:[id number] Oral 600 Output: Urine 1300 1400 750 Other: Voiding Method Urinal Urinal Urinal External Catheter External Catheter External Catheter - Exam GENERAL DESCRIPTION: An elderly male lying in bed in no distress RESPIRATORY SYSTEM: Unlabored breathing , decreased breath sounds at bases HEART: S1 S2 regular rate and rhythm , ABDOMEN: Soft , no tenderness EXTREMITIES: Left big toe with some discoloration did have some superficial elevation to the left foot no foul-smelling drainage - Labs CBC & Chem 7: 03/31/24 07:00 03/31/24 07:00 Labs: Abnormal Lab Results - Last 24 Hours (Table) 03/29/24 03/30/24 03/30/24 Range/Units 20:15 07:19 12:02 POC Glucose (mg/dL) 230 H 112 H 214 H (70-110) mg/dL Microbiology - Last 24 Hours (Table) 03/26/24 16:10 Blood Culture - Preliminary Blood 03/26/24 15:55 Blood Culture - Preliminary Blood 03/26/24 16:30 Gram Stain - Final Foot - Left Wound Culture - Final Assessment and Plan (1) Diabetic infection of left foot Current Visit: Yes Status: Acute Code(s): E11.628 - TYPE 2 DIABETES MELLITUS WITH OTHER SKIN COMPLICATIONS; L08.9 - LOCAL INFECTION OF THE SKIN AND SUBCUTANEOUS TISSUE, UNSP SNOMED Code(s): 46828263 (2) Type 2 diabetes mellitus with foot ulcer Current Visit: No Status: Acute Code(s): E11.621 - TYPE 2 DIABETES MELLITUS WITH FOOT ULCER; L97.509 - NON-PRESSURE CHRONIC ULCER OTH PRT UNSP FOOT W UNSP SEVERITY SNOMED Code(s): 923687241 Plan: 1patient being admitted to the hospital with worsening wound to the left big toe in this patient with underlying history of diabetes mellitus and also a history left heel osteomyelitis for the patient has completed antibiotic therapy patient has shown overall improvement in almost healing of the left heel wound now with wound to the left big toe has some superficial solution to the left foot concerning for diabetic foot wound and secondary cellulitis will need to call for the resistant gram-positive as well as gram-negative pathogen as the patient has previously grown MRSA and Pseudomonas 2-patient with renal insufficiency and high risk of nephrotoxicity from vancomycin 3-local culture has been obtained and results are currently pending 4-patient to continue with cefepime and daptomycin while waiting for the culture to finalize and await any further vascular surgery recommendation and procedures Dictation was produced using [employer] dictation software. please excuse any grammatical, word or spelling errors. Time with Patient: Less than 30
[2024-03-31 12:03] LABS: Glucose,Whole Blood 261 mg/dL (70-110)
--- NOTE | 2024-03-31 14:12 | P.PN ---
Subjective Progress Note Date: 03/31/24 Principal diagnosis: Left foot wounds, critical limb ischemia Patient seen and examined. Doing well, pain controlled. No complaints Objective - Vital Signs Vital signs: Vital Signs Temp 98.8 F 03/31/24 07:24 Pulse 76 03/31/24 08:07 Resp 20 03/31/24 07:24 BP 148/72 03/31/24 07:24 Pulse Ox 94 L 03/31/24 07:24 FiO2 Intake & Output 03/30/24 03/31/24 03/31/24 18:59 06:59 18:59 Intake Total 100 750 Output Total 750 2250 1200 Balance -650 -1500 -1200 Intake: Intake, IV Titration 100 150 Amount Cefepime 2 gm In Sodium 100 100 Chloride 0.9% 100 ml @ 25 mls/hr IVPB Q12H [facility] Rx# :[id number] DAPTOmycin 300 mg In 50 Sodium Chloride 0.9% 50 ml @ 100 mls/hr IVPB Q24H [facility] Rx#:[id number] Oral 600 Output: Urine 750 2250 1200 Other: Voiding Method Urinal Urinal Urinal External Catheter External Catheter External Catheter # Bowel Movements 1 - Exam Left lower extremity with multiple wounds including the ankle and foot. Nonpalpable DP or PT pulse - Labs CBC & Chem 7: 03/31/24 07:00 03/31/24 07:00 Labs: Abnormal Lab Results - Last 24 Hours (Table) 03/30/24 03/30/24 03/30/24 Range/Units 17:08 17:32 19:46 RBC (4.30-5.90) m/uL Hgb (13.0-17.5) gm/dL Hct (39.0-53.0) % MCHC (31.0-37.0) g/dL Lymphocytes # (1.0-4.8) k/uL Sodium (137-145) mmol/L Chloride (98-107) mmol/L Carbon Dioxide (22-30) mmol/L BUN (9-20) mg/dL Creatinine (0.66-1.25) mg/dL Glucose (74-99) mg/dL POC Glucose (mg/dL) 64 L 144 H 338 H (70-110) mg/dL Albumin (3.5-5.0) g/dL 03/31/24 03/31/24 03/31/24 Range/Units 07:00 07:00 07:21 RBC 3.58 L (4.30-5.90) m/uL Hgb 10.1 L (13.0-17.5) gm/dL Hct 33.8 L (39.0-53.0) % MCHC 29.9 L (31.0-37.0) g/dL Lymphocytes # 0.6 L (1.0-4.8) k/uL Sodium 136 L (137-145) mmol/L Chloride 110 H (98-107) mmol/L Carbon Dioxide 18 L (22-30) mmol/L BUN 52 H (9-20) mg/dL Creatinine 1.63 H (0.66-1.25) mg/dL Glucose 245 H (74-99) mg/dL POC Glucose (mg/dL) 263 H (70-110) mg/dL Albumin 3.1 L (3.5-5.0) g/dL 03/31/24 Range/Units 12:01 RBC (4.30-5.90) m/uL Hgb (13.0-17.5) gm/dL Hct (39.0-53.0) % MCHC (31.0-37.0) g/dL Lymphocytes # (1.0-4.8) k/uL Sodium (137-145) mmol/L Chloride (98-107) mmol/L Carbon Dioxide (22-30) mmol/L BUN (9-20) mg/dL Creatinine (0.66-1.25) mg/dL Glucose (74-99) mg/dL POC Glucose (mg/dL) 261 H (70-110) mg/dL Albumin (3.5-5.0) g/dL Assessment and Plan Assessment: Critical limb ischemia left lower extremity with chronic wounds chronic Left lower extremity ankle and foot wounds Left superficial femoral artery occlusive disease Diabetic foot ulcers Plan: Plan for femoral endarterectomy and bypass next week
--- NOTE | 2024-03-31 15:50 | XR ---
EXAMINATION TYPE: XR chest 2V DATE OF EXAM: 03/31/2024 3:12 PM CLINICAL INDICATION:Male, 73 years old with history of shortness of breath; PHH COMPARISON: Chest radiographs from 03/27/2024 TECHNIQUE: XR chest 2V Frontal and lateral views of the chest. FINDINGS: Lungs/Pleura: There is no evidence of pleural effusion, focal consolidation, or pneumothorax. Pulmonary vascularity: Unremarkable. Heart/mediastinum: Cardiomediastinal silhouette is unremarkable. Musculoskeletal: Degenerative changes of the shoulder joints. Midline sternotomy wires are noted. IMPRESSION: Interstitial lung disease changes without acute pulmonary process.
[2024-03-31 17:13] LABS: Glucose,Whole Blood 126 mg/dL (70-110)
[2024-03-31 20:52] LABS: Glucose,Whole Blood 216 mg/dL (70-110)
--- NOTE | 2024-03-31 21:49 | P.PN ---
Subjective Progress Note Date: 03/31/24 Chief Complaint: Left foot infection This is a 73-year-old patient, follows Dr. Bell. Patient was seen by me in the ER. Chronic stable medical condition include CAD, diabetes, GERD, hypertension, hyperlipidemia, neuropathy. CAD with bypass and stent. PAD. Depression panic disorder. Patient's sister is his legal guardian: Radha Patient presents to the ER with left foot infection. He has had different wounds and follows up with the wound care center by Dr. Fiore. He was treated for a left heel wound. Also has had a great toe wound. Patient has been having increasing pain in the left bone. Apparently drainage from the left foot. Somewhat tender. Patient's sister and daughter at the bedside. Appetite is fair. March 27, 2024: Admitted with left foot infection deep tissue/abscess. Spoke with Dr. Pascal from vascular. He will be going out of town. Will consult Dr. Romeo from vascular. ID following. Oral intake good. Patient diabetes appears to be brittle. Follow March 28, 2024: Spoke to patient's sister German yesterday. She did confirm that she is a legal guardian takes all decisions for the patient. I did convey this to Dr. Romeo from vascular. Patient's sister was okay with proceeding with surgical intervention including amputation if so felt by Dr. Romeo. This morning RADIO MACHINIST Анна informed me that doctors for reevaluation patient was always a standing and able to decline surgery. They placed ethics consult for the same. I did speak to the hospital certified paralegal Mrs. Frost, to assist in the situation. I spoke to the patient and explained to him the reason surgery is offering operation because it is felt antibiotics would not really help. Patient was initially irritated but then said he will proceed for surgery. I did communicate this to Анна BIRD. Meantime patient to continue with antibiotics. urgency of surgery is to be determined by Dr. Romeo. Await further input. March 29: Patient underwent CT angiogram lower extremity. Discussed with Dr. Romeo. Plan for surgical intervention likely bypass on Monday. Cardiology clearance requested. I did try to reach patient's sister on the phone. This morning- Unsuccessful. Did talk to the patient.-He is agreeable to proceed with bypass. Tentatively he is being boarded for next Monday. I am being covered by [facility] starting tomorrow. Tried reaching the sister again at about 4:20 PM.-Unable to get through 03/30/2024 Patient is seen in follow-up this morning currently laying in bed and lower extremities [facility] hanging off the bed. Patient appears to be slightly confused although this is baseline and patient is able to have conversation. Multiple consultations following including cardiology and vascular surgery. Patient awaiting to undergo stress test on Monday with cardiology for clearance for possible tentative left femoral endarterectomy and femoral to tibial bypass with CryoVein that is scheduled on Monday if medically cleared and cardiology clears. Attempting to contact family to confirm consent. Patient continues on antibiotics with infectious disease following with concerns of left lower extremity cellulitis. Discussion is also being had about possible BKA. Patient is currently afebrile with no reports of chest pain or shortness of breath. Patient reports to tolerating diet with no reported nausea or vomiting. Blood sugars are uncontrolled and will adjust medications accordingly and recommend to continue monitoring Accu-Cheks ACHS as well as 2 AM as needed 03/31/2024 Patient is evaluated in follow up today. He is resting in bed. Reporting some congestion and shortness of breath did receive a dose of IV lasix yesterday. He is on room air. Lungs are clear. His chest xray shows interstitial lung disease with no acute pulmonary process. Sodium is 136, BUN 52, creatinine 1.63. He will be going for stress test tomorrow. Possible amputation next week of the left foot. His cultures are currently final and normal. Remains on antibiotics. Review of Systems Constitutional: Denied any fatigue denied any fever. Cardio vascular: denied any chest pain, palpitations Gastrointestinal: denied any nausea, vomiting, diarrhea Pulmonary: Denied any shortness of breath cough Neurologic denied any new focal deficits All inpatient medications were reviewed and appropriate changes in these medications as dictated in the interval history and assessment and plan. Physical examination: GENERAL: This is a 73-year-old male who is awake, alert and oriented x 2, appears mildly confused at baseline, able to answer questions appropriately, well-developed, elderly appearing, ill-appearing EYES: Pupils equal. Conjunctiva normal. HEENT: External appearance of nose and ears normal, oral cavity grossly normal. NECK: JVD not raised; masses not palpable. HEART: S1, S2 are muffled LUNGS: Diminished breath sounds bilaterally with some scattered rhonchi noted respiratory rate normal; no accessory muscle use noted ABDOMEN: Soft, nontender, positive bowel sounds noted, no masses palpable. PSYCH: Patient agreeable to proceed with bypass surgery lower extremity-had discussed with Dr. Romeo earlier today. MUSCULOSKELETAL:No Clubbing/cyanosis;muscles-grossly intact. Left foot with swelling, dressing is dry and intact currently. Some wounds including the dorsum. Tender. NEUROLOGICAL: Stuttering speech. Assessment: -Suspect abscess of the left foot and possible soft tissue deep infection. Foot is rather swollen and tender and areas of drainage. Patient has known PAD and also underlying diabetes. Previous cultures that showed growing MRSA and Pseudomonas.: Improving -Hyperlipidemia, continue statin therapy -Diabetes mellitus type 2, uncontrolled with hyperglycemia. 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 Romeo following and discussed and offered amputation to the patient. Patient declined surgery to Dr. Romeo. Tentatively discussing surgical intervention for next week Monday Cardiology consulted for medical clearance and will be scheduled to undergo stress test on Monday Continue monitoring Accu-Cheks before meals and at bedtime and 2 AM and will adjust insulins accordingly Continue with local wound care Continue IV antibiotics with infectious disease following and awaiting finalized cultures. Patient has a legal guardian, Sister Radha: Legal guardian makes all decisions for the patient. Have been attempting to contact her regarding consent which has been unsuccessful. Repeat labs and replace electrolytes per protocol Will need PT/OT therapy evaluation and ECF on discharge. Case management/social work consulted The impression and plan of care has been dictated by Silvia Ralph, Nurse Practitioner as directed. Dr. Karlie MD I have performed a history and physical examination and medical decision making of this patient, discussed the same with the dictator, and agree with the dictators assessment and plan as written, documented as a scribe. Based on total visit time, I have performed more than 50% of this visit. Objective - Vital Signs Vital signs: Vital Signs Temp 98.8 F 03/31/24 07:24 Pulse 76 03/31/24 08:07 Resp 20 03/31/24 07:24 BP 148/72 03/31/24 07:24 Pulse Ox 94 L 03/31/24 07:24 FiO2 Intake & Output 03/30/24 03/31/24 03/31/24 18:59 06:59 18:59 Intake Total 100 750 Output Total 750 2250 1200 Balance -650 -1500 -1200 Intake: Intake, IV Titration 100 150 Amount Cefepime 2 gm In Sodium 100 100 Chloride 0.9% 100 ml @ 25 mls/hr IVPB Q12H YESY Rx# :[id number] DAPTOmycin 300 mg In 50 Sodium Chloride 0.9% 50 ml @ 100 mls/hr IVPB Q24H YESY Rx#:[id number] Oral 600 Output: Urine 750 2250 1200 Other: Voiding Method Urinal Urinal Urinal External Catheter External Catheter External Catheter # Bowel Movements 1 - Labs CBC & Chem 7: 03/31/24 07:00 03/31/24 07:00 Labs: Abnormal Lab Results - Last 24 Hours (Table) 03/30/24 03/30/24 03/30/24 Range/Units 17:08 17:32 19:46 RBC (4.30-5.90) m/uL Hgb (13.0-17.5) gm/dL Hct (39.0-53.0) % MCHC (31.0-37.0) g/dL Lymphocytes # (1.0-4.8) k/uL Sodium (137-145) mmol/L Chloride (98-107) mmol/L Carbon Dioxide (22-30) mmol/L BUN (9-20) mg/dL Creatinine (0.66-1.25) mg/dL Glucose (74-99) mg/dL POC Glucose (mg/dL) 64 L 144 H 338 H (70-110) mg/dL Albumin (3.5-5.0) g/dL 03/31/24 03/31/24 03/31/24 Range/Units 07:00 07:00 07:21 RBC 3.58 L (4.30-5.90) m/uL Hgb 10.1 L (13.0-17.5) gm/dL Hct 33.8 L (39.0-53.0) % MCHC 29.9 L (31.0-37.0) g/dL Lymphocytes # 0.6 L (1.0-4.8) k/uL Sodium 136 L (137-145) mmol/L Chloride 110 H (98-107) mmol/L Carbon Dioxide 18 L (22-30) mmol/L BUN 52 H (9-20) mg/dL Creatinine 1.63 H (0.66-1.25) mg/dL Glucose 245 H (74-99) mg/dL POC Glucose (mg/dL) 263 H (70-110) mg/dL Albumin 3.1 L (3.5-5.0) g/dL 03/31/24 Range/Units 12:01 RBC (4.30-5.90) m/uL Hgb (13.0-17.5) gm/dL Hct (39.0-53.0) % MCHC (31.0-37.0) g/dL Lymphocytes # (1.0-4.8) k/uL Sodium (137-145) mmol/L Chloride (98-107) mmol/L Carbon Dioxide (22-30) mmol/L BUN (9-20) mg/dL Creatinine (0.66-1.25) mg/dL Glucose (74-99) mg/dL POC Glucose (mg/dL) 261 H (70-110) mg/dL Albumin (3.5-5.0) g/dL Assessment and Plan Time with Patient: Less than 30
[2024-04-01] MEDS: ACETAMINOPHEN TAB 325 MG TAB PO PRN (00:08)
[2024-04-01 03:19] LABS: Glucose,Whole Blood 323 mg/dL (70-110)
[2024-04-01] MEDS ORDERED: AMINOPHYLLINE 500 MG/20 ML VIAL IV PRN (06:00)
[2024-04-01] MEDS ORDERED: CAFFEINE CITRATE 60 MG/3 ML VIAL IV PRN (06:00)
[2024-04-01] MEDS ORDERED: REGADENOSON 0.4 MG/5 ML SYRINGE IV PRN (07:00)
[2024-04-01 07:18] LABS: Glucose,Whole Blood 208 mg/dL (70-110)
[2024-04-01 08:56] LABS: BUN/Creat Ratio 34.39 Ratio (12.00-20.00); Blood Urea Nitrogen 61.9 mg/dL (9.0-27.0); Calcium 8.2 mg/dL (8.7-10.3); Carbon Dioxide 19.1 mmol/L (21.6-31.8); Chloride 104 mmol/L (96-109); Glucose 285 mg/dL (70-110); Magnesium 2.1 mg/dL (1.5-2.4); Potassium 4.6 mmol/L (3.5-5.5); Sodium 133 mmol/L (135-145)
--- NOTE | 2024-04-01 11:03 | P.PN ---
Subjective Progress Note Date: 04/01/24 Principal diagnosis: Left lower extremity nonhealing wounds, peripheral arterial disease Patient is seen and examined today as a follow-up. Today he states he is not doing well. He is having pain and seems a bit confused and states "why am I here". He was scheduled to undergo cardiac stress test today however he ate breakfast this morning and it is rescheduled for tomorrow. Awaiting cardiac clearance to undergo left lower extremity fem-tib bypass and femoral endarterectomy. Patient has been afebrile. Objective - Vital Signs Vital signs: Vital Signs Temp 97.9 F 04/01/24 07:30 Pulse 70 04/01/24 08:00 Resp 18 04/01/24 07:30 BP 158/62 04/01/24 07:30 Pulse Ox 94 L 04/01/24 07:30 FiO2 Intake & Output 03/31/24 04/01/24 04/01/24 18:59 06:59 18:59 Intake Total 240 Output Total 1700 1500 450 Balance -1700 -1260 -450 Intake: Oral 240 Output: Urine 1700 1500 450 Other: Voiding Method Urinal Urinal External Catheter External Catheter - Exam General appearance: The patient is alert, oriented, appears in no acute distress. HET: Head is normocephalic and atraumatic. Neck: Supple. Abdomen: Soft, nondistended. Extremities: Nonpalpable PT and DP pulses bilaterally. Left lower extremity w ith multiple diabetic ulcers on toes, dorsal aspect of left foot with diabetic ulcer, no fluctuance or drainage noted. Great toe with ischemic changes. Toes are cool to touch with decreased capillary refill. Diabetic ulcers to left lower extremity and cherry along with a blister with clear fluid. Left heel pressure ulcer, healing. Neurological: Patient is alert and oriented to person place and time. - Labs CBC & Chem 7: 03/31/24 07:00 04/01/24 04:40 Labs: Abnormal Lab Results - Last 24 Hours (Table) 03/31/24 03/31/24 03/31/24 Range/Units 12:01 17:11 20:50 POC Glucose (mg/dL) 261 H 126 H 216 H (70-110) mg/dL 04/01/24 04/01/24 Range/Units 03:17 07:17 POC Glucose (mg/dL) 323 H 208 H (70-110) mg/dL Microbiology - Last 24 Hours (Table) 03/26/24 16:10 Blood Culture - Final Blood 03/26/24 15:55 Blood Culture - Final Blood Assessment and Plan Assessment: 1. Left lower extremity chronic nonhealing diabetic ulcers 2. Left great toe diabetic ulcer with ischemic changes 3. Hemodynamically significant peripheral arterial disease with history of revascularization and bypass 4. History of nonhealing wounds 5. Diabetes mellitus Plan: 1. CT angiogram with runoff reviewed independently by Dr. Romeo 2. Patient is tentatively scheduled for left femoral to tibial artery bypass and left femoral endarterectomy on 04/03/2024 3. Patient is rescheduled for stress test tomorrow 4. Awaiting cardiac clearance 5. Surgical plan discussed with the patient. He is agreeable moving forward. Left message with patient's legal guardian/Sister German Ross Thank you for this consultation. We will continue to follow. The impression and plan of care has been dictated as directed. Dr. Romeo I performed a history and examination of this patient, discussed the same with the dictator. I agree with the dictator's note ,documented as a scribe. Any additional findings or plans will be noted.
--- NOTE | 2024-04-01 11:39 | P.PN ---
Subjective HISTORY OF PRESENT ILLNESS: This is a 73-year-old male patient of Dr. Jayde Edgar with past medical history of coronary artery disease status post CABG in [place] in 2002, details are not available, hypertension, diabetes mellitus type 2, dyslipidemia, chronic kidney disease, severe PAD, history of CVA. We have been asked to evaluate the patient for surgical clearance, patient is tentatively scheduled for left lower extremity revascularization. Patient also has history of osteomyelitis of the left heel status post antibiotic therapy and return to [facility] due to a left big toe wound. He has been seen by infectious disease and vascular surgery with plan for possible revascularization next week. Patient apparently has verbalized that he does not want to go through with amputation for diabetic foot infection and he has a legal guardian. This was reviewed by ethics committee. Patient denies having any chest pain or shortness of breath. EKG sinus rhythm with poor R wave progression Chest x-ray: No acute process. Suspect COPD and interstitial chronic lung disease such as pulmonary fibrosis. WBC 8.8, hemoglobin 10.7. Sodium 139, potassium 5, BUN 44 and creatinine 1.78. Hemoglobin A1c is 9.3 Home cardiac medications: Amlodipine 5 mg twice daily, aspirin 81 mg daily, atorvastatin 80 mg at bedtime, Imdur 30 mg daily, Lopressor 50 mg twice daily, also on levothyroxine and Jardiance 25 mg daily. Echocardiogram performed on 03/29/2024 reveals EF of 50%. LV size is upper limit of normal with anterior hypokinesia. Mild mitral and tricuspid regurgitation. No significant pulmonary hypertension. No pericardial effusion. Mitral and aortic valve leaflets are calcified but no significant restriction. Lexiscan Cardiolite stress test performed in the office on 08/01/2019 was a negative stress test by EKG criteria. Abnormal nuclear scan showing evidence of prior inferior lateral wall myocardial infarction with preserved LV function without any ischemia. 04/01/2024 Patient examined this morning the bedside. Patient is resting comfortably. No complaints of chest pain or shortness of breath. Vital signs are stable. Patient was initially scheduled for Lexiscan stress test today, however the patient was given a full breakfast. PHYSICAL EXAM: VITAL SIGNS: Reviewed. GENERAL: Well-developed in no acute distress. NECK: Supple. No JVD or thyromegaly LUNGS: Respirations even and unlabored. Lungs essentially clear to auscultation bilaterally. HEART: Regular rate and rhythm. S1 and S2 heard. EXTREMITIES: Normal range of motion. No clubbing or cyanosis. Peripheral pulses intact. Multiple diabetic ulcers, ischemic change to the left great toe. ASSESSMENT: Severe peripheral arterial disease Ischemic diabetic wound left great toe History of left heel osteomyelitis History of coronary artery disease with previous CABG Hypertension Diabetes with A1c 9.3 Chronic kidney disease Dyslipidemia History of CVA PLAN: Continue current cardiac medications Patient will be rescheduled for Lexiscan stress test tomorrow N.p.o. at midnight Patient is tentatively scheduled for left femoral to tibial artery bypass and left femoral endarterectomy on 04/03/2024 Further recommendations pending patient course Nurse practitioner note has been reviewed by physician. Signing provider agrees with the documented findings, assessment, and plan of care documented by ZINC ETCHER as a scribe. Objective - Vital Signs Vital signs: Vital Signs Temp 97.9 F 04/01/24 07:30 Pulse 70 04/01/24 08:00 Resp 18 04/01/24 07:30 BP 158/62 04/01/24 07:30 Pulse Ox 94 L 04/01/24 07:30 FiO2 Intake & Output 03/31/24 04/01/24 04/01/24 18:59 06:59 18:59 Intake Total 240 Output Total 1700 1500 450 Balance -1700 -1260 -450 Intake: Oral 240 Output: Urine 1700 1500 450 Other: Voiding Method Urinal Urinal External Catheter External Catheter - Labs CBC & Chem 7: 03/31/24 07:00 04/01/24 04:40 Labs: Abnormal Lab Results - Last 24 Hours (Table) 03/31/24 03/31/24 03/31/24 Range/Units 12:01 17:11 20:50 Sodium (135-145) mmol/L Carbon Dioxide (21.6-31.8) mmol/L BUN (9.0-27.0) mg/dL Creatinine (0.6-1.5) mg/dL Est GFR (CKD-EPI) (>=60) BUN/Creatinine Ratio (12.00-20.00) Ratio Glucose (70-110) mg/dL POC Glucose (mg/dL) 261 H 126 H 216 H (70-110) mg/dL Calcium (8.7-10.3) mg/dL 04/01/24 04/01/24 04/01/24 Range/Units 03:17 04:40 07:17 Sodium 133 L (135-145) mmol/L Carbon Dioxide 19.1 L (21.6-31.8) mmol/L BUN 61.9 H (9.0-27.0) mg/dL Creatinine 1.8 H (0.6-1.5) mg/dL Est GFR (CKD-EPI) 39 L (>=60) BUN/Creatinine Ratio 34.39 H (12.00-20.00) Ratio Glucose 285 H (70-110) mg/dL POC Glucose (mg/dL) 323 H 208 H (70-110) mg/dL Calcium 8.2 L (8.7-10.3) mg/dL Microbiology - Last 24 Hours (Table) 03/26/24 16:10 Blood Culture - Final Blood 03/26/24 15:55 Blood Culture - Final Blood
[2024-04-01 11:47] LABS: Glucose,Whole Blood 270 mg/dL (70-110)
[2024-04-01] MEDS ORDERED: INSULIN ASPART (NovoLOG) 100 UNIT/ML VIAL SQ ONE (12:00)
--- NOTE | 2024-04-01 16:51 | P.PN ---
Subjective Progress Note Date: 04/01/24 Chief Complaint: Left foot infection This is a 73-year-old patient, follows Dr. Bell. Patient was seen by me in the ER. Chronic stable medical condition include CAD, diabetes, GERD, hypertension, hyperlipidemia, neuropathy. CAD with bypass and stent. PAD. Depression panic disorder. Patient's sister is his legal guardian: Radha Patient presents to the ER with left foot infection. He has had different wounds and follows up with the wound care center by Dr. Fiore. He was treated for a left heel wound. Also has had a great toe wound. Patient has been having increasing pain in the left bone. Apparently drainage from the left foot. Somewhat tender. Patient's sister and daughter at the bedside. Appetite is fair. March 27, 2024: Admitted with left foot infection deep tissue/abscess. Spoke with Dr. Pascal from vascular. He will be going out of town. Will consult Dr. Romeo from vascular. ID following. Oral intake good. Patient diabetes appears to be brittle. Follow March 28, 2024: Spoke to patient's sister German yesterday. She did confirm that she is a legal guardian takes all decisions for the patient. I did convey this to Dr. Romeo from vascular. Patient's sister was okay with proceeding with surgical intervention including amputation if so felt by Dr. Romeo. This morning DOCTOR'S ASSISTANT Анна informed me that doctors for reevaluation patient was always a standing and able to decline surgery. They placed ethics consult for the same. I did speak to the hospital legal biller Mrs. Frost, to assist in the situation. I spoke to the patient and explained to him the reason surgery is offering operation because it is felt antibiotics would not really help. Patient was initially irritated but then said he will proceed for surgery. I did communicate this to Анна BIDR. Meantime patient to continue with antibiotics. urgency of surgery is to be determined by Dr. Romeo. Await further input. March 29: Patient underwent CT angiogram lower extremity. Discussed with Dr. Romeo. Plan for surgical intervention likely bypass on Monday. Cardiology clearance requested. I did try to reach patient's sister on the phone. This morning- Unsuccessful. Did talk to the patient.-He is agreeable to proceed with bypass. Tentatively he is being boarded for next Monday. I am being covered by [facility] starting tomorrow. Tried reaching the sister again at about 4:20 PM.-Unable to get through 03/30/2024 Patient is seen in follow-up this morning currently laying in bed and lower extremities longterm hanging off the bed. Patient appears to be slightly confused although this is baseline and patient is able to have conversation. Multiple consultations following including cardiology and vascular surgery. Patient awaiting to undergo stress test on Monday with cardiology for clearance for possible tentative left femoral endarterectomy and femoral to tibial bypass with CryoVein that is scheduled on Monday if medically cleared and cardiology clears. Attempting to contact family to confirm consent. Patient continues on antibiotics with infectious disease following with concerns of left lower extremity cellulitis. Discussion is also being had about possible BKA. Patient is currently afebrile with no reports of chest pain or shortness of breath. Patient reports to tolerating diet with no reported nausea or vomiting. Blood sugars are uncontrolled and will adjust medications accordingly and recommend to continue monitoring Accu-Cheks ACHS as well as 2 AM as needed 03/31/2024 Patient is evaluated in follow up today. He is resting in bed. Reporting some congestion and shortness of breath did receive a dose of IV lasix yesterday. He is on room air. Lungs are clear. His chest xray shows interstitial lung disease with no acute pulmonary process. Sodium is 136, BUN 52, creatinine 1.63. He will be going for stress test tomorrow. Possible amputation next week of the left foot. His cultures are currently final and normal. Remains on antibiotics. 04/01/2024 Patient evaluated in follow up. Resting in bed. Having pain to the left foot. He is receiving norco and dilaudid for breakthrough pain. He is not having any shortness of breath today. Patient had breakfast stress test has been rescheduled He will undergo left lower extremity fem-tib bypass and femoral endarectomy when cardiology has cleared the patient. He remains on IV daptomycin and IV cefepime. Review of Systems Constitutional: Denied any fatigue denied any fever. Cardio vascular: denied any chest pain, palpitations Gastrointestinal: denied any nausea, vomiting, diarrhea Pulmonary: Denied any shortness of breath cough Neurologic denied any new focal deficits All inpatient medications were reviewed and appropriate changes in these medications as dictated in the interval history and assessment and plan. Physical examination: GENERAL: This is a 73-year-old male who is awake, alert and oriented x 2, appears mildly confused at baseline, able to answer questions appropriately, wel l-developed, elderly appearing, ill-appearing EYES: Pupils equal. Conjunctiva normal. HEENT: External appearance of nose and ears normal, oral cavity grossly normal. NECK: JVD not raised; masses not palpable. HEART: S1, S2 are muffled LUNGS: Diminished breath sounds bilaterally with some scattered rhonchi noted respiratory rate normal; no accessory muscle use noted ABDOMEN: Soft, nontender, positive bowel sounds noted, no masses palpable. PSYCH: Patient agreeable to proceed with bypass surgery lower extremity-had discussed with Dr. Romeo earlier today. MUSCULOSKELETAL:No Clubbing/cyanosis;muscles-grossly intact. Left foot with swelling, dressing is dry and intact currently. Some wounds including the dorsum. Tender. NEUROLOGICAL: Stuttering speech. Assessment: -Suspect abscess of the left foot and possible soft tissue deep infection. Foot is rather swollen and tender and areas of drainage. Patient has known PAD and also underlying diabetes. Previous cultures that showed growing MRSA and Pseudomonas.: Improving -nonhealing wound left great toe diabetic ulcer ischemic changes noted and pending left lower extremity fem-tib bypass and femoral endartectomy when cardiology has cleared the patient. -Hyperlipidemia, continue statin therapy -Diabetes mellitus type 2, uncontrolled with hyperglycemia. 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 Romeo following and discussed and offered amputation to the patient. Patient declined surgery to Dr. Romeo. Patient will undergo vascular intervention Cardiology consulted for medical clearance and will be scheduled to undergo str ess test has been rescheduled to monday. Continue monitoring Accu-Cheks before meals and at bedtime and 2 AM and will adjust insulins accordingly Continue with local wound care Continue IV antibiotics with infectious disease following and awaiting finalized cultures. Patient has a legal guardian, Sister Radha: Legal guardian makes all decisions for the patient. Have been attempting to contact her regarding consent which has been unsuccessful. Repeat labs and replace electrolytes per protocol Will need PT/OT therapy evaluation and ECF on discharge. Case management/social work consulted The impression and plan of care has been dictated by Silvia Ralph, Nurse Practitioner as directed. Dr. Karlie MD I have performed a history and physical examination and medical decision making of this patient, discussed the same with the dictator, and agree with the dictators assessment and plan as written, documented as a scribe. Based on total visit time, I have performed more than 50% of this visit. Objective - Vital Signs Vital signs: Vital Signs Temp 97.7 F 04/01/24 11:55 Pulse 72 04/01/24 15:55 Resp 18 04/01/24 11:55 BP 109/52 04/01/24 11:55 Pulse Ox 94 L 04/01/24 11:55 FiO2 Intake & Output 03/31/24 04/01/24 04/01/24 18:59 06:59 18:59 Intake Total 240 Output Total 1700 1500 950 Balance -1700 -1260 -950 Intake: Oral 240 Output: Urine 1700 1500 950 Other: Voiding Method Urinal Urinal External Catheter External Catheter - Labs CBC & Chem 7: 03/31/24 07:00 04/01/24 04:40 Labs: Abnormal Lab Results - Last 24 Hours (Table) 03/31/24 03/31/24 04/01/24 Range/Units 17:11 20:50 03:17 Sodium (135-145) mmol/L Carbon Dioxide (21.6-31.8) mmol/L BUN (9.0-27.0) mg/dL Creatinine (0.6-1.5) mg/dL Est GFR (CKD-EPI) (>=60) BUN/Creatinine Ratio (12.00-20.00) Ratio Glucose (70-110) mg/dL POC Glucose (mg/dL) 126 H 216 H 323 H (70-110) mg/dL Calcium (8.7-10.3) mg/dL 04/01/24 04/01/24 04/01/24 Range/Units 04:40 07:17 11:47 Sodium 133 L (135-145) mmol/L Carbon Dioxide 19.1 L (21.6-31.8) mmol/L BUN 61.9 H (9.0-27.0) mg/dL Creatinine 1.8 H (0.6-1.5) mg/dL Est GFR (CKD-EPI) 39 L (>=60) BUN/Creatinine Ratio 34.39 H (12.00-20.00) Ratio Glucose 285 H (70-110) mg/dL POC Glucose (mg/dL) 208 H 270 H (70-110) mg/dL Calcium 8.2 L (8.7-10.3) mg/dL Microbiology - Last 24 Hours (Table) 03/26/24 16:10 Blood Culture - Final Blood 03/26/24 15:55 Blood Culture - Final Blood Assessment and Plan Time with Patient: Less than 30
[2024-04-01 17:28] LABS: Glucose,Whole Blood 257 mg/dL (70-110)
[2024-04-01 20:05] LABS: Glucose,Whole Blood 299 mg/dL (70-110)
[2024-04-02 01:33] LABS: Glucose,Whole Blood 177 mg/dL (70-110)
[2024-04-02] MEDS ORDERED: REGADENOSON 0.4 MG/5 ML SYRINGE IV PRN (05:00)
[2024-04-02 06:52] LABS: Glucose,Whole Blood 249 mg/dL (70-110)
[2024-04-02 09:20] LABS: Basophils % (A) 1 %; Eosinophils # (A) 0.3 k/uL (0-0.7); Eosinophils % (A) 4 %; HCT 29.9 % (39.0-53.0); HGB 9.1 gm/dL (13.0-17.5); Hypochromasia Moderate; Lymphocytes % (A) 13 %; MCH 29.1 pg (25.0-35.0); MCHC 30.6 g/dL (31.0-37.0); MCV 95.1 fL (80.0-100.0); Mean Platelet Volume 7.9; Monocytes # (A) 0.4 k/uL (0-1.0); Monocytes % (A) 5 %; Neutrophils # (A) 5.7 k/uL (1.3-7.7); Neutrophils % (A) 77 %; Platelet Count 310 k/uL (150-450); RBC 3.14 m/uL (4.30-5.90); RDW 14.1 % (11.5-15.5); WBC 7.5 k/uL (3.8-10.6)
[2024-04-02 09:31] LABS: African American GFR (CKD) 45 (>60 ml/min/1.73 sqM); Anion Gap 6 mmol/L; Blood Urea Nitrogen 70 mg/dL (9-20); Calcium 8.5 mg/dL (8.4-10.2); Carbon Dioxide 18 mmol/L (22-30); Chloride 113 mmol/L (98-107); Glucose 204 mg/dL (74-99); Magnesium 2.1 mg/dL (1.6-2.3); Non-African American GFR(CKD) 39 (>60 ml/min/1.73 sqM); Potassium 5.1 mmol/L (3.5-5.1); Sodium 137 mmol/L (137-145)
--- NOTE | 2024-04-02 11:20 | CA ---
Lexiscan Nuclear Stress Test Report Name: Colton Ross Exam Date: 04/02/2024 09:23 Exam Location: [place] Stress Ht (in): 70 Wt (lb): 167 BSA: 1.93 Ordering Phys: Mary Kay Gonzalez Referring Phys: CHRISTOPHER CALDWELL,, Technologist: Ladarius Iqbal Age: 73 Gender: M : 1950 Procedure CPT: chest pain Indications: Reflex order-Stress test ICD-10 Codes: Patient History: Medications: SEE CHART Meds past 24 hrs: Pretest Chest Pain: STRESS TEST Lexiscan Protocol Exercise Duration (min:sec): 01:[address] Depressions (mm): Angina Score: Marquez Score: Resting HR (bpm): 74 Peak HR (bpm): 95 Resting BP (mmHg): 135 / 60 Peak BP (mmHg): 144 / 55 MPHR: 147 Target HR: 125 % MPHR: 65 METS: 1.0 Total Dose: Peak Dose: Atropine: Double Product: 09508 BP Response: Stress Termination: INFUSION COMPLETE Stress Symptoms: NO SYMPTOMS Stress Summary: ECG ANALYSIS Resting ECG: Normal sinus rhythm normal axis normal intervals Stress ECG: Patient was given intravenous Lexiscan as a protocol did not have chest pain or diagnostic ST segment depression CONCLUSIONS Negative stress test by EKG criteria Cardiolite portion of the stress test will be reported separately Dr. Arnulfo Edgar MD (Electronically Signed) Final Date: 02 April 2024 11:19
--- NOTE | 2024-04-02 11:22 | P.PN ---
Subjective HISTORY OF PRESENT ILLNESS: This is a 73-year-old male patient of Dr. Jayde Edgar with past medical history of coronary artery disease status post CABG in [place] in 2002, details are not available, hypertension, diabetes mellitus type 2, dyslipidemia, chronic kidney disease, severe PAD, history of CVA. We have been asked to evaluate the patient for surgical clearance, patient is tentatively scheduled for left lower extremity revascularization. Patient also has history of osteomyelitis of the left heel status post antibiotic therapy and return to [facility] due to a left big toe wound. He has been seen by infectious disease and vascular surgery with plan for possible revascularization next week. Patient apparently has verbalized that he does not want to go through with amputation for diabetic foot infection and he has a legal guardian. This was reviewed by ethics committee. Patient denies having any chest pain or shortness of breath. EKG sinus rhythm with poor R wave progression Chest x-ray: No acute process. Suspect COPD and interstitial chronic lung disease such as pulmonary fibrosis. WBC 8.8, hemoglobin 10.7. Sodium 139, potassium 5, BUN 44 and creatinine 1.78. Hemoglobin A1c is 9.3 Home cardiac medications: Amlodipine 5 mg twice daily, aspirin 81 mg daily, atorvastatin 80 mg at bedtime, Imdur 30 mg daily, Lopressor 50 mg twice daily, also on levothyroxine and Jardiance 25 mg daily. Echocardiogram performed on 03/29/2024 reveals EF of 50%. LV size is upper limit of normal with anterior hypokinesia. Mild mitral and tricuspid regurgitation. No significant pulmonary hypertension. No pericardial effusion. Mitral and aortic valve leaflets are calcified but no significant restriction. Lexiscan Cardiolite stress test performed in the office on 08/01/2019 was a negative stress test by EKG criteria. Abnormal nuclear scan showing evidence of prior inferior lateral wall myocardial infarction with preserved LV function without any ischemia. 04/01/2024 Patient examined this morning the bedside. Patient is resting comfortably. No complaints of chest pain or shortness of breath. Vital signs are stable. Patient was initially scheduled for Lexiscan stress test today, however the patient was given a full breakfast. 04/02/2024 Patient examined this morning in the stress lab. Patient currently denies chest pain or pressure. He denies shortness of breath. Vital signs are stable. Patient is scheduled for Lexiscan stress test this morning. PHYSICAL EXAM: VITAL SIGNS: Reviewed. GENERAL: Well-developed in no acute distress. NECK: Supple. No JVD or thyromegaly LUNGS: Respirations even and unlabored. Lungs essentially clear to auscultation bilaterally. HEART: Regular rate and rhythm. S1 and S2 heard. EXTREMITIES: Normal range of motion. No clubbing or cyanosis. Peripheral pulses intact. Multiple diabetic ulcers, ischemic change to the left great toe. ASSESSMENT: Severe peripheral arterial disease Ischemic diabetic wound left great toe History of left heel osteomyelitis History of coronary artery disease with previous CABG Hypertension Diabetes with A1c 9.3 Chronic kidney disease Dyslipidemia History of CVA PLAN: Continue current cardiac medications Patient currently undergoing Lexiscan stress test. Await results. Patient is tentatively scheduled for left femoral to tibial artery bypass and left femoral endarterectomy on 04/03/2024 Further recommendations pending patient course Nurse practitioner note has been reviewed by physician. Signing provider agrees with the documented findings, assessment, and plan of care documented by ASSET ANALYST as a scribe. Objective - Vital Signs Vital signs: Vital Signs Temp 98.5 F 04/02/24 06:49 Pulse 77 04/02/24 06:49 Resp 16 04/02/24 06:49 BP 135/60 04/02/24 06:49 Pulse Ox 94 L 04/02/24 06:49 FiO2 Intake & Output 04/01/24 04/02/24 04/02/24 18:59 06:59 18:59 Output Total 1450 1100 500 Balance -1450 -1100 -500 Output: Urine 1450 1100 500 Other: Voiding Method External Catheter - Labs CBC & Chem 7: 04/02/24 08:11 04/02/24 08:11 Labs: Abnormal Lab Results - Last 24 Hours (Table) 04/01/24 04/01/24 04/01/24 Range/Units 11:47 17:27 19:53 RBC (4.30-5.90) m/uL Hgb (13.0-17.5) gm/dL Hct (39.0-53.0) % MCHC (31.0-37.0) g/dL Chloride (98-107) mmol/L Carbon Dioxide (22-30) mmol/L BUN (9-20) mg/dL Creatinine (0.66-1.25) mg/dL Glucose (74-99) mg/dL POC Glucose (mg/dL) 270 H 257 H 299 H (70-110) mg/dL 04/02/24 04/02/24 04/02/24 Range/Units 01:28 06:50 08:11 RBC 3.14 L (4.30-5.90) m/uL Hgb 9.1 L (13.0-17.5) gm/dL Hct 29.9 L (39.0-53.0) % MCHC 30.6 L (31.0-37.0) g/dL Chloride (98-107) mmol/L Carbon Dioxide (22-30) mmol/L BUN (9-20) mg/dL Creatinine (0.66-1.25) mg/dL Glucose (74-99) mg/dL POC Glucose (mg/dL) 177 H 249 H (70-110) mg/dL 04/02/24 Range/Units 08:11 RBC (4.30-5.90) m/uL Hgb (13.0-17.5) gm/dL Hct (39.0-53.0) % MCHC (31.0-37.0) g/dL Chloride 113 H (98-107) mmol/L Carbon Dioxide 18 L (22-30) mmol/L BUN 70 H (9-20) mg/dL Creatinine 1.71 H (0.66-1.25) mg/dL Glucose 204 H (74-99) mg/dL POC Glucose (mg/dL) (70-110) mg/dL
--- NOTE | 2024-04-02 11:42 | NM ---
EXAMINATION TYPE: NM stress lexiscan cardiolite DATE OF EXAM: 04/02/2024 COMPARISON: NONE CLINICAL INDICATION: Male, 73 years old with history of preop clearance, CAD; TECHNIQUE: After the intravenous administration of 10.0 mCi Tc 99m Sestamibi - Cardiolite resting SP ECT images acquired 45 minutes post injection. The patient received 0.4mg Lexiscan, 26.5 mCi Tc 99m Sestamibi - Stress images obtained [address] injection FINDINGS: Review of stress and rest SPECT images demonstrates a large fixed defect involving the inferolateral aspect of the left ventricle. There is small area of reversibility along the mid to apical anterosept al wall noted. Gated analysis shows limited augmentation of the inferolateral wall and decreased LVEF of 48%. TID is upper limits of normal at 1.08. IMPRESSION: 1. Further evaluation is recommended. There is a large fixed defect involving the entire inferolatera l aspect of the left ventricle that may represent old infarct. 2. In addition, unable to exclude a small area of inducible ischemia along the mid to apical anterose ptal wall. 3. Estimated LVEF 48%.
--- NOTE | 2024-04-02 12:04 | P.PN ---
Subjective Progress Note Date: 04/02/24 Principal diagnosis: Left lower extremity nonhealing wounds, peripheral arterial disease Patient is seen and examined today as a follow-up. He went down for his stress test. Awaiting results. States of stress test was hard on him. Apparently patient's sister was just here she signed consents for left lower extremity bypass surgery. He currently denies any chest pain shortness of breath, abdominal pain nausea or vomiting. Still has pain down the left leg and foot. Has been afebrile. Objective - Vital Signs Vital signs: Vital Signs Temp 98.5 F 04/02/24 06:49 Pulse 77 04/02/24 06:49 Resp 16 04/02/24 06:49 BP 135/60 04/02/24 06:49 Pulse Ox 94 L 04/02/24 06:49 FiO2 Intake & Output 04/01/24 04/02/24 04/02/24 18:59 06:59 18:59 Output Total 1450 1100 500 Balance -1450 -1100 -500 Output: Urine 1450 1100 500 Other: Voiding Method External Catheter - Exam General appearance: The patient is alert, oriented, appears in no acute distress. HET: Head is normocephalic and atraumatic. Neck: Supple. Abdomen: Soft, nondistended. Extremities: Nonpalpable PT and DP pulses bilaterally. Left lower extremity w ith multiple diabetic ulcers on toes, dorsal aspect of left foot with diabetic ulcer, no fluctuance or drainage noted. Great toe with ischemic changes. Toes are cool to touch with decreased capillary refill. Diabetic ulcers to left lower extremity and cherry along with a blister with clear fluid. Left heel pressure ulcer, healing. Neurological: Patient is alert and oriented to person place and time. - Labs CBC & Chem 7: 04/02/24 08:11 04/02/24 08:11 Labs: Abnormal Lab Results - Last 24 Hours (Table) 04/01/24 04/01/24 04/01/24 Range/Units 11:47 17:27 19:53 RBC (4.30-5.90) m/uL Hgb (13.0-17.5) gm/dL Hct (39.0-53.0) % MCHC (31.0-37.0) g/dL Chloride (98-107) mmol/L Carbon Dioxide (22-30) mmol/L BUN (9-20) mg/dL Creatinine (0.66-1.25) mg/dL Glucose (74-99) mg/dL POC Glucose (mg/dL) 270 H 257 H 299 H (70-110) mg/dL 04/02/24 04/02/24 04/02/24 Range/Units 01:28 06:50 08:11 RBC 3.14 L (4.30-5.90) m/uL Hgb 9.1 L (13.0-17.5) gm/dL Hct 29.9 L (39.0-53.0) % MCHC 30.6 L (31.0-37.0) g/dL Chloride (98-107) mmol/L Carbon Dioxide (22-30) mmol/L BUN (9-20) mg/dL Creatinine (0.66-1.25) mg/dL Glucose (74-99) mg/dL POC Glucose (mg/dL) 177 H 249 H (70-110) mg/dL 04/02/24 Range/Units 08:11 RBC (4.30-5.90) m/uL Hgb (13.0-17.5) gm/dL Hct (39.0-53.0) % MCHC (31.0-37.0) g/dL Chloride 113 H (98-107) mmol/L Carbon Dioxide 18 L (22-30) mmol/L BUN 70 H (9-20) mg/dL Creatinine 1.71 H (0.66-1.25) mg/dL Glucose 204 H (74-99) mg/dL POC Glucose (mg/dL) (70-110) mg/dL Assessment and Plan Assessment: 1. Left lower extremity chronic nonhealing diabetic ulcers 2. Left great toe diabetic ulcer with ischemic changes 3. Hemodynamically significant peripheral arterial disease with history of revascularization and bypass 4. History of nonhealing wounds 5. Diabetes mellitus Plan: 1. CT angiogram with runoff reviewed independently by Dr. Romeo 2. Patient is tentatively scheduled for left femoral to tibial artery bypass and left femoral endarterectomy on 04/03/2024 3. Weight stress test results and cardiac clearance 4. Surgical plan discussed with the patient. He is agreeable moving forward. Left message with patient's legal guardian/Sister German Ross. Consent is in chart. 5. Rest of medical management per primary medical team Thank you for this consultation. We will continue to follow. The impression and plan of care has been dictated as directed. Dr. Romeo I performed a history and examination of this patient, discussed the same with the dictator. I agree with the dictator's note ,documented as a scribe. Any additional findings or plans will be noted.
[2024-04-02 12:25] LABS: Glucose,Whole Blood 120 mg/dL (70-110)
--- NOTE | 2024-04-02 15:34 | P.PN ---
Subjective Progress Note Date: 03/31/24 Principal diagnosis: Reason for follow-up is left diabetic foot infection Patient is a 73-year-old male with a past medical history significant for diabetes mellitus hypertension hyperlipidemia [place] coronary artery disease patient did have a history of left heel infected pressure ulcer with underlying osteomyelitis for the patient has completed his antibiotic therapy, patient presenting to the hospital with worsening wound and discoloration to the left big toe concerning for diabetic foot infection. On today's evaluation that is 03/31/2024, patient has been afebrile, patient is breathing comfortably and is currently on room air, patient denies having any significant cough no chest pain shortness of breath, patient denies nausea vomiting or diarrhea and no abdominal pain patient be complaining of some pain to the left lower extremity. Patient did have white count of 7.8, creatinine is 1.63 Objective - Vital Signs Vital signs: Vital Signs Temp 98.2 F 03/31/24 14:20 Pulse 76 03/31/24 15:41 Resp 20 03/31/24 14:20 BP 125/60 03/31/24 14:20 Pulse Ox 95 03/31/24 14:20 FiO2 Intake & Output 03/30/24 03/31/24 03/31/24 18:59 06:59 18:59 Intake Total 100 750 Output Total 750 2250 1200 Balance -650 -1500 -1200 Intake: Intake, IV Titration 100 150 Amount Cefepime 2 gm In Sodium 100 100 Chloride 0.9% 100 ml @ 25 mls/hr IV[facility] Rx# :[id number] DAPTOmycin 300 mg In 50 Sodium Chloride 0.9% 50 ml @ 100 mls/hr IVPB Q24H [facility] Rx#:[id number] Oral 600 Output: Urine 750 2250 1200 Other: Voiding Method Urinal Urinal Urinal External Catheter External Catheter External Catheter # Bowel Movements 1 - Exam GENERAL DESCRIPTION: An elderly male lying in bed in no distress RESPIRATORY SYSTEM: Unlabored breathing , decreased breath sounds at bases HEART: S1 S2 regular rate and rhythm , ABDOMEN: Soft , no tenderness EXTREMITIES: Left big toe with some discoloration did have some superficial elevation to the left foot no foul-smelling drainage - Labs CBC & Chem 7: 04/02/24 08:11 04/02/24 08:11 Labs: Abnormal Lab Results - Last 24 Hours (Table) 03/30/24 03/30/24 03/30/24 Range/Units 17:08 17:32 19:46 RBC (4.30-5.90) m/uL Hgb (13.0-17.5) gm/dL Hct (39.0-53.0) % MCHC (31.0-37.0) g/dL Lymphocytes # (1.0-4.8) k/uL Sodium (137-145) mmol/L Chloride (98-107) mmol/L Carbon Dioxide (22-30) mmol/L BUN (9-20) mg/dL Creatinine (0.66-1.25) mg/dL Glucose (74-99) mg/dL POC Glucose (mg/dL) 64 L 144 H 338 H (70-110) mg/dL Albumin (3.5-5.0) g/dL 03/31/24 03/31/24 03/31/24 Range/Units 07:00 07:00 07:21 RBC 3.58 L (4.30-5.90) m/uL Hgb 10.1 L (13.0-17.5) gm/dL Hct 33.8 L (39.0-53.0) % MCHC 29.9 L (31.0-37.0) g/dL Lymphocytes # 0.6 L (1.0-4.8) k/uL Sodium 136 L (137-145) mmol/L Chloride 110 H (98-107) mmol/L Carbon Dioxide 18 L (22-30) mmol/L BUN 52 H (9-20) mg/dL Creatinine 1.63 H (0.66-1.25) mg/dL Glucose 245 H (74-99) mg/dL POC Glucose (mg/dL) 263 H (70-110) mg/dL Albumin 3.1 L (3.5-5.0) g/dL 03/31/24 Range/Units 12:01 RBC (4.30-5.90) m/uL Hgb (13.0-17.5) gm/dL Hct (39.0-53.0) % MCHC (31.0-37.0) g/dL Lymphocytes # (1.0-4.8) k/uL Sodium (137-145) mmol/L Chloride (98-107) mmol/L Carbon Dioxide (22-30) mmol/L BUN (9-20) mg/dL Creatinine (0.66-1.25) mg/dL Glucose (74-99) mg/dL POC Glucose (mg/dL) 261 H (70-110) mg/dL Albumin (3.5-5.0) g/dL Assessment and Plan (1) Diabetic infection of left foot Current Visit: Yes Status: Acute Code(s): E11.628 - TYPE 2 DIABETES MELLITUS WITH OTHER SKIN COMPLICATIONS; L08.9 - LOCAL INFECTION OF THE SKIN AND SUBCU TANEOUS TISSUE, UNSP SNOMED Code(s): 15010797 (2) Type 2 diabetes mellitus with foot ulcer Current Visit: No Status: Acute Code(s): E11.621 - TYPE 2 DIABETES MELLITUS WITH FOOT ULCER; L97.509 - NON-PRESSURE CHRONIC ULCER OTH PRT UNSP FOOT W UNSP SEVERITY SNOMED Code(s): 148915554 Plan: 1patient being admitted to the hospital with worsening wound to the left big toe in this patient with underlying history of diabetes mellitus and also a history left heel osteomyelitis for the patient has completed antibiotic therapy patient has shown overall improvement in almost healing of the left heel wound now with wound to the left big toe has some superficial solution to the left foot concerning for diabetic foot wound and secondary cellulitis will need to call for the resistant gram-positive as well as gram-negative pathogen as the patient has previously grown MRSA and Pseudomonas 2-patient with renal insufficiency and high risk of nephrotoxicity from vancomycin 3-local culture has been obtained and so far negative 4-patient to continue with cefepime and daptomycin currently waiting for vascular workup Dictation was produced using [employer] dictation software. please excuse any grammatical, word or spelling errors. Time with Patient: Less than 30
--- NOTE | 2024-04-02 15:35 | P.PN ---
Subjective Progress Note Date: 04/01/24 Principal diagnosis: Reason for follow-up is left diabetic foot infection Patient is a 73-year-old male with a past medical history significant for diabetes mellitus hypertension hyperlipidemia [place] coronary artery disease patient did have a history of left heel infected pressure ulcer with underlying osteomyelitis for the patient has completed his antibiotic therapy, patient presenting to the hospital with worsening wound and discoloration to the left big toe concerning for diabetic foot infection. On today's evaluation that is 04/01/2024,the patient denies any fever or any chills, patient is breathing comfortably on room air, the patient denies chest pain shortness of breath and no significant cough, patient denies abdominal pain, no nausea vomiting or diarrhea. Patient denies any worsening pain to the left foot. Patient did have a creatinine 1.8 Objective - Vital Signs Vital signs: Vital Signs Temp 98.4 F 04/01/24 19:19 Pulse 69 04/01/24 19:19 Resp 18 04/01/24 19:19 BP 132/63 04/01/24 19:19 Pulse Ox 94 L 04/01/24 19:19 FiO2 Intake & Output 04/01/24 04/01/24 04/02/24 06:59 18:59 06:59 Intake Total 240 Output Total 1500 1450 Balance -1260 -1450 Intake: Oral 240 Output: Urine 1500 1450 Other: Voiding Method Urinal External Catheter - Exam GENERAL DESCRIPTION: An elderly male lying in bed in no distress RESPIRATORY SYSTEM: Unlabored breathing , decreased breath sounds at bases HEART: S1 S2 regular rate and rhythm , ABDOMEN: Soft , no tenderness EXTREMITIES: Left big toe with some discoloration did have some superficial elevation to the left foot no foul-smelling drainage - Labs CBC & Chem 7: 04/02/24 08:11 04/02/24 08:11 Labs: Abnormal Lab Results - Last 24 Hours (Table) 04/01/24 04/01/24 04/01/24 Range/Units 03:17 04:40 07:17 Sodium 133 L (135-145) mmol/L Carbon Dioxide 19.1 L (21.6-31.8) mmol/L BUN 61.9 H (9.0-27.0) mg/dL Creatinine 1.8 H (0.6-1.5) mg/dL Est GFR (CKD-EPI) 39 L (>=60) BUN/Creatinine Ratio 34.39 H (12.00-20.00) Ratio Glucose 285 H (70-110) mg/dL POC Glucose (mg/dL) 323 H 208 H (70-110) mg/dL Calcium 8.2 L (8.7-10.3) mg/dL 04/01/24 04/01/24 04/01/24 Range/Units 11:47 17:27 19:53 Sodium (135-145) mmol/L Carbon Dioxide (21.6-31.8) mmol/L BUN (9.0-27.0) mg/dL Creatinine (0.6-1.5) mg/dL Est GFR (CKD-EPI) (>=60) BUN/Creatinine Ratio (12.00-20.00) Ratio Glucose (70-110) mg/dL POC Glucose (mg/dL) 270 H 257 H 299 H (70-110) mg/dL Calcium (8.7-10.3) mg/dL Microbiology - Last 24 Hours (Table) 03/26/24 16:10 Blood Culture - Final Blood 03/26/24 15:55 Blood Culture - Final Blood Assessment and Plan (1) Diabetic infection of left foot Current Visit: Yes Status: Acute Code(s): E11.628 - TYPE 2 DIABETES MELLITUS WITH OTHER SKIN COMPLICATIONS; L08.9 - LOCAL INFECTION OF THE SKIN AND SUBCUTANEOUS TISSUE, UNSP SNOMED Code(s): 82329500 (2) Type 2 diabetes mellitus with foot ulcer Current Visit: No Status: Acute Code(s): E11.621 - TYPE 2 DIABETES MELLITUS WITH FOOT ULCER; L97.509 - NON-PRESSURE CHRONIC ULCER OTH PRT UNSP FOOT W UNSP SEVERITY SNOMED Code(s): 413440938 Plan: 1patient being admitted to the hospital with worsening wound to the left big toe in this patient with underlying history of diabetes mellitus and also a history left heel osteomyelitis for the patient has completed antibiotic therapy patient has shown overall improvement in almost healing of the left heel wound now with wound to the left big toe has some superficial solution to the left foot concerning for diabetic foot wound and secondary cellulitis will need to call for the resistant gram-positive as well as gram-negative pathogen as the patient has previously grown MRSA and Pseudomonas 2-patient with renal insufficiency and high risk of nephrotoxicity from vancomycin kidney function is being monitored closely 3-local culture has been obtained and so far negative 4-patient currently being treated with cefepime and daptomycin, cardiac workup in progress Dictation was produced using [employer] dictation software. please excuse any grammatical, word or spelling errors. Time with Patient: Less than 30
--- NOTE | 2024-04-02 15:36 | P.PN ---
Subjective Progress Note Date: 04/02/24 Principal diagnosis: Reason for follow-up is left diabetic foot infection Patient is a 73-year-old male with a past medical history significant for diabetes mellitus hypertension hyperlipidemia [place] coronary artery disease patient did have a history of left heel infected pressure ulcer with underlying osteomyelitis for the patient has completed his antibiotic therapy, patient presenting to the hospital with worsening wound and discoloration to the left big toe concerning for diabetic foot infection. On today's evaluation that is 04/02/2024,the patient remains to be afebrile, patient is on room air not requiring supplemental oxygen and denies any shortness of breath no chest pain or cough.Patient denies having any nausea or vomiting, no abdominal pain and no diarrhea has been reported, but denies any worsening pain to the left lower extremity. Patient white count 7.5, creatinine 1.71 Objective - Vital Signs Vital signs: Vital Signs Temp 98.6 F 04/02/24 12:20 Pulse 68 04/02/24 12:27 Resp 20 04/02/24 12:20 BP 120/57 04/02/24 12:20 Pulse Ox 100 04/02/24 12:20 FiO2 Intake & Output 04/01/24 04/02/24 04/02/24 18:59 06:59 18:59 Output Total 1450 1100 500 Balance -1450 -1100 -500 Output: Urine 1450 1100 500 Other: Voiding Method External Catheter Diaper Incontinent External Catheter - Exam GENERAL DESCRIPTION: An elderly male lying in bed in no distress RESPIRATORY SYSTEM: Unlabored breathing , decreased breath sounds at bases HEART: S1 S2 regular rate and rhythm , ABDOMEN: Soft , no tenderness EXTREMITIES: Left big toe with some discoloration did have some superficial elevation to the left foot no foul-smelling drainage - Labs CBC & Chem 7: 04/02/24 08:11 04/02/24 08:11 Labs: Abnormal Lab Results - Last 24 Hours (Table) 04/01/24 04/01/24 04/02/24 Range/Units 17:27 19:53 01:28 RBC (4.30-5.90) m/uL Hgb (13.0-17.5) gm/dL Hct (39.0-53.0) % MCHC (31.0-37.0) g/dL Chloride (98-107) mmol/L Carbon Dioxide (22-30) mmol/L BUN (9-20) mg/dL Creatinine (0.66-1.25) mg/dL Glucose (74-99) mg/dL POC Glucose (mg/dL) 257 H 299 H 177 H (70-110) mg/dL 04/02/24 04/02/24 04/02/24 Range/Units 06:50 08:11 08:11 RBC 3.14 L (4.30-5.90) m/uL Hgb 9.1 L (13.0-17.5) gm/dL Hct 29.9 L (39.0-53.0) % MCHC 30.6 L (31.0-37.0) g/dL Chloride 113 H (98-107) mmol/L Carbon Dioxide 18 L (22-30) mmol/L BUN 70 H (9-20) mg/dL Creatinine 1.71 H (0.66-1.25) mg/dL Glucose 204 H (74-99) mg/dL POC Glucose (mg/dL) 249 H (70-110) mg/dL 04/02/24 Range/Units 12:21 RBC (4.30-5.90) m/uL Hgb (13.0-17.5) gm/dL Hct (39.0-53.0) % MCHC (31.0-37.0) g/dL Chloride (98-107) mmol/L Carbon Dioxide (22-30) mmol/L BUN (9-20) mg/dL Creatinine (0.66-1.25) mg/dL Glucose (74-99) mg/dL POC Glucose (mg/dL) 120 H (70-110) mg/dL Assessment and Plan (1) Diabetic infection of left foot Current Visit: Yes Status: Acute Code(s): E11.628 - TYPE 2 DIABETES MELLITUS WITH OTHER SKIN COMPLICATIONS; L08.9 - LOCAL INFECTION OF THE SKIN AND SUBCUTANEOUS TISSUE, UNSP SNOMED Code(s): 30098081 (2) Type 2 diabetes mellitus with foot ulcer Current Visit: No Status: Acute Code(s): E11.621 - TYPE 2 DIABETES MELLITUS WITH FOOT ULCER; L97.509 - NON-PRESSURE CHRONIC ULCER OTH PRT UNSP FOOT W UNSP SEVERITY SNOMED Code(s): 364234195 Plan: 1patient being admitted to the hospital with worsening wound to the left big toe in this patient with underlying history of diabetes mellitus and also a history left heel osteomyelitis for the patient has completed antibiotic therapy patient has shown overall improvement in almost healing of the left heel wound now with wound to the left big toe has some superficial solution to the left foot concerning for diabetic foot wound and secondary cellulitis will need to call for the resistant gram-positive as well as gram-negative pathogen as the patient has previously grown MRSA and Pseudomonas 2-patient with renal insufficiency and high risk of nephrotoxicity from vancomycin kidney function is being monitored closely 3-local culture has been obtained and so far negative 4-patient to continue with cefepime and daptomycin, cardiac possible scheduled for left lower extremity bypass surgery tomorrow by vascular surgery Dictation was produced using [employer] dictation software. please excuse any grammatical, word or spelling errors. Time with Patient: Less than 30
[2024-04-02] MEDS: SODIUM ZIRCONIUM CYCLOSILICATE 10 GM PACKET PO ONE (16:17)
[2024-04-02 17:20] LABS: Glucose,Whole Blood 374 mg/dL (70-110)
[2024-04-02 20:03] LABS: Glucose,Whole Blood 342 mg/dL (70-110)
--- NOTE | 2024-04-02 21:03 | P.PN ---
Subjective Progress Note Date: 04/02/24 Chief Complaint: Left foot infection This is a 73-year-old patient, follows Dr. Bell. Patient was seen by me in the ER. Chronic stable medical condition include CAD, diabetes, GERD, hypertension, hyperlipidemia, neuropathy. CAD with bypass and stent. PAD. Depression panic disorder. Patient's sister is his legal guardian: Radha Patient presents to the ER with left foot infection. He has had different wounds and follows up with the wound care center by Dr. Fiore. He was treated for a left heel wound. Also has had a great toe wound. Patient has been having increasing pain in the left bone. Apparently drainage from the left foot. Somewhat tender. Patient's sister and daughter at the bedside. Appetite is fair. March 27, 2024: Admitted with left foot infection deep tissue/abscess. Spoke with Dr. Pascal from vascular. He will be going out of town. Will consult Dr. Romeo from vascular. ID following. Oral intake good. Patient diabetes appears to be brittle. Follow March 28, 2024: Spoke to patient's sister German yesterday. She did confirm that she is a legal guardian takes all decisions for the patient. I did convey this to Dr. Romeo from vascular. Patient's sister was okay with proceeding with surgical intervention including amputation if so felt by Dr. Romeo. This morning THREAD GRINDER Анна informed me that doctors for reevaluation patient was always a standing and able to decline surgery. They placed ethics consult for the same. I did speak to the hospital legal technician Mrs. Frost, to assist in the situation. I spoke to the patient and explained to him the reason surgery is offering operation because it is felt antibiotics would not really help. Patient was initially irritated but then said he will proceed for surgery. I did communicate this to Анна BIRD. Meantime patient to continue with antibiotics. urgency of surgery is to be determined by Dr. Romeo. Await further input. March 29: Patient underwent CT angiogram lower extremity. Discussed with Dr. Romeo. Plan for surgical intervention likely bypass on Monday. Cardiology clearance requested. I did try to reach patient's sister on the phone. This morning- Unsuccessful. Did talk to the patient.-He is agreeable to proceed with bypass. Tentatively he is being boarded for next Monday. I am being covered by [facility] starting tomorrow. Tried reaching the sister again at about 4:20 PM.-Unable to get through 03/30/2024 Patient is seen in follow-up this morning currently laying in bed and lower extremities chcf hanging off the bed. Patient appears to be slightly confused although this is baseline and patient is able to have conversation. Multiple consultations following including cardiology and vascular surgery. Patient awaiting to undergo stress test on Monday with cardiology for clearance for possible tentative left femoral endarterectomy and femoral to tibial bypass with CryoVein that is scheduled on Monday if medically cleared and cardiology clears. Attempting to contact family to confirm consent. Patient continues on antibiotics with infectious disease following with concerns of left lower extremity cellulitis. Discussion is also being had about possible BKA. Patient is currently afebrile with no reports of chest pain or shortness of breath. Patient reports to tolerating diet with no reported nausea or vomiting. Blood sugars are uncontrolled and will adjust medications accordingly and recommend to continue monitoring Accu-Cheks ACHS as well as 2 AM as needed 03/31/2024 Patient is evaluated in follow up today. He is resting in bed. Reporting some congestion and shortness of breath did receive a dose of IV lasix yesterday. He is on room air. Lungs are clear. His chest xray shows interstitial lung disease with no acute pulmonary process. Sodium is 136, BUN 52, creatinine 1.63. He will be going for stress test tomorrow. Possible amputation next week of the left foot. His cultures are currently final and normal. Remains on antibiotics. 04/01/2024 Patient evaluated in follow up. Resting in bed. Having pain to the left foot. He is receiving norco and dilaudid for breakthrough pain. He is not having any shortness of breath today. Patient had breakfast stress test has been rescheduled He will undergo left lower extremity fem-tib bypass and femoral endarectomy when cardiology has cleared the patient. He remains on IV daptomycin and IV cefepime. 04/02/2024 Patient scheduled to under chemical stress test today findings of a large fixed defect involving the entire inferolateral aspect of the left ventricle that may represent an old infarct. Unable to exclude a small area of inducible ischemia along the mid to apical anteroseptal wall. LV function 48%. Review of Systems Constitutional: Denied any fatigue denied any fever. Cardio vascular: denied any chest pain, palpitations Gastrointestinal: denied any nausea, vomiting, diarrhea Pulmonary: Denied any shortness of breath cough Neurologic denied any new focal deficits All inpatient medications were reviewed and appropriate changes in these medications as dictated in the interval history and assessment and plan. Physical examination: GENERAL: This is a 73-year-old male who is awake, alert and oriented x 2, appears mildly confused at baseline, able to answer questions appropriately, well-developed, elderly appearing, ill-appearing EYES: Pupils equal. Conjunctiva normal. HEENT: External appearance of nose and ears normal, oral cavity grossly normal. NECK: JVD not raised; masses not palpable. HEART: S1, S2 are muffled LUNGS: Diminished breath sounds bilaterally with some scattered rhonchi noted respiratory rate normal; no accessory muscle use noted ABDOMEN: Soft, nontender, positive bowel sounds noted, no masses palpable. PSYCH: Patient agreeable to proceed with bypass surgery lower extremity-had discussed with Dr. Romeo earlier today. MUSCULOSKELETAL:No Clubbing/cyanosis;muscles-grossly intact. Left foot with swelling, dressing is dry and intact currently. Some wounds including the dorsum. Tender. NEUROLOGICAL: Stuttering speech. Assessment: -Suspect abscess of the left foot and possible soft tissue deep infection. Foot is rather swollen and tender and areas of drainage. Patient has known PAD and also underlying diabetes. Previous cultures that showed growing MRSA and Pseudomonas.: Improving -nonhealing wound left great toe diabetic ulcer ischemic changes noted and pending left lower extremity fem-tib bypass and femoral endartectomy when cardiology has cleared the patient. -Hyperlipidemia, continue statin therapy -Diabetes mellitus type 2, uncontrolled with hyperglycemia. 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 Romeo following and discussed and offered amputation to the patient. Patient declined surgery to Dr. Romeo. Patient will undergo vascular intervention Cardiology consulted for medical clearance and underwent stress test today. Awaiting cardiology input for clearance. Continue monitoring Accu-Cheks before meals and at bedtime and 2 AM and will adjust insulins accordingly Continue with local wound care Continue IV antibiotics with infectious disease following and awaiting finalized cultures. Consent for vascular bypass has been signed by patients sister. Repeat labs and replace electrolytes per protocol Will need PT/OT therapy evaluation and ECF on discharge. Case management/social work consulted The impression and plan of care has been dictated by Slivia Ralph, Nurse Practitioner as directed. Dr. Karlie MD I have performed a history and physical examination and medical decision making of this patient, discussed the same with the dictator, and agree with the dictators assessment and plan as written, documented as a scribe. Based on total visit time, I have performed more than 50% of this visit. Objective - Vital Signs Vital signs: Vital Signs Temp 98.3 F 04/02/24 20:00 Pulse 72 04/02/24 20:21 Resp 20 04/02/24 20:00 BP 121/65 04/02/24 20:00 Pulse Ox 97 04/02/24 20:00 FiO2 Intake & Output 04/02/24 04/02/24 04/03/24 06:59 18:59 06:59 Output Total 1100 1500 Balance -1100 -1500 Output: Urine 1100 1500 Other: Voiding Method External Catheter Diaper Incontinent External Catheter - Labs CBC & Chem 7: 04/02/24 08:11 04/02/24 08:11 Labs: Abnormal Lab Results - Last 24 Hours (Table) 04/02/24 04/02/24 04/02/24 Range/Units 01:28 06:50 08:11 RBC 3.14 L (4.30-5.90) m/uL Hgb 9.1 L (13.0-17.5) gm/dL Hct 29.9 L (39.0-53.0) % MCHC 30.6 L (31.0-37.0) g/dL Chloride (98-107) mmol/L Carbon Dioxide (22-30) mmol/L BUN (9-20) mg/dL Creatinine (0.66-1.25) mg/dL Glucose (74-99) mg/dL POC Glucose (mg/dL) 177 H 249 H (70-110) mg/dL 04/02/24 04/02/24 04/02/24 Range/Units 08:11 12:21 17:18 RBC (4.30-5.90) m/uL Hgb (13.0-17.5) gm/dL Hct (39.0-53.0) % MCHC (31.0-37.0) g/dL Chloride 113 H (98-107) mmol/L Carbon Dioxide 18 L (22-30) mmol/L BUN 70 H (9-20) mg/dL Creatinine 1.71 H (0.66-1.25) mg/dL Glucose 204 H (74-99) mg/dL POC Glucose (mg/dL) 120 H 374 H (70-110) mg/dL 04/02/24 Range/Units 19:58 RBC (4.30-5.90) m/uL Hgb (13.0-17.5) gm/dL Hct (39.0-53.0) % MCHC (31.0-37.0) g/dL Chloride (98-107) mmol/L Carbon Dioxide (22-30) mmol/L BUN (9-20) mg/dL Creatinine (0.66-1.25) mg/dL Glucose (74-99) mg/dL POC Glucose (mg/dL) 342 H (70-110) mg/dL Assessment and Plan Time with Patient: Less than 30
[2024-04-02 22:19] LABS: Glucose,Whole Blood 264 mg/dL (70-110)
[2024-04-02] MEDS: INSULIN DETEMIR (LEVEMIR) 100 UNIT/ML SYR SQ SCH (22:28)
[2024-04-02] MEDS: ATORVASTATIN 80 MG TAB PO SCH (22:28)
[2024-04-03 07:24] LABS: Glucose,Whole Blood 239 mg/dL (70-110)
[2024-04-03 08:14] LABS: HCT 30.6 % (39.0-53.0); HGB 9.6 gm/dL (13.0-17.5); Hypochromasia Moderate; MCH 29.3 pg (25.0-35.0); MCHC 31.4 g/dL (31.0-37.0); MCV 93.4 fL (80.0-100.0); Mean Platelet Volume 8.2; Platelet Count 304 k/uL (150-450); RBC 3.28 m/uL (4.30-5.90); RDW 14.3 % (11.5-15.5); WBC 6.5 k/uL (3.8-10.6)
[2024-04-03 08:30] LABS: African American GFR (CKD) 44 (>60 ml/min/1.73 sqM); Anion Gap 8 mmol/L; Blood Urea Nitrogen 65 mg/dL (9-20); Calcium 8.8 mg/dL (8.4-10.2); Carbon Dioxide 16 mmol/L (22-30); Chloride 111 mmol/L (98-107); Glucose 233 mg/dL (74-99); Non-African American GFR(CKD) 38 (>60 ml/min/1.73 sqM); Potassium 4.8 mmol/L (3.5-5.1); Sodium 135 mmol/L (137-145)
--- NOTE | 2024-04-03 10:12 | P.PN ---
Subjective HISTORY OF PRESENT ILLNESS: This is a 73-year-old male patient of Dr. Jayde Edgar with past medical history of coronary artery disease status post CABG in [place] in 2002, details are not available, hypertension, diabetes mellitus type 2, dyslipidemia, chronic kidney disease, severe PAD, history of CVA. We have been asked to evaluate the patient for surgical clearance, patient is tentatively scheduled for left lower extremity revascularization. Patient also has history of osteomyelitis of the left heel status post antibiotic therapy and return to [facility] due to a left big toe wound. He has been seen by infectious disease and vascular surgery with plan for possible revascularization next week. Patient apparently has verbalized that he does not want to go through with amputation for diabetic foot infection and he has a legal guardian. This was reviewed by ethics committee. Patient denies having any chest pain or shortness of breath. EKG sinus rhythm with poor R wave progression Chest x-ray: No acute process. Suspect COPD and interstitial chronic lung disease such as pulmonary fibrosis. WBC 8.8, hemoglobin 10.7. Sodium 139, potassium 5, BUN 44 and creatinine 1.78. Hemoglobin A1c is 9.3 Home cardiac medications: Amlodipine 5 mg twice daily, aspirin 81 mg daily, atorvastatin 80 mg at bedtime, Imdur 30 mg daily, Lopressor 50 mg twice daily, also on levothyroxine and Jardiance 25 mg daily. Echocardiogram performed on 03/29/2024 reveals EF of 50%. LV size is upper limit of normal with anterior hypokinesia. Mild mitral and tricuspid regurgitation. No significant pulmonary hypertension. No pericardial effusion. Mitral and aortic valve leaflets are calcified but no significant restriction. Lexiscan Cardiolite stress test performed in the office on 08/01/2019 was a negative stress test by EKG criteria. Abnormal nuclear scan showing evidence of prior inferior lateral wall myocardial infarction with preserved LV function without any ischemia. 04/01/2024 Patient examined this morning the bedside. Patient is resting comfortably. No complaints of chest pain or shortness of breath. Vital signs are stable. Patient was initially scheduled for Lexiscan stress test today, however the patient was given a full breakfast. 04/02/2024 Patient examined this morning in the stress lab. Patient currently denies chest pain or pressure. He denies shortness of breath. Vital signs are stable. Patient is scheduled for Lexiscan stress test this morning. Addendum entered and electronically signed by Moni Fisher NP-C 04/02/24 12:47: Lexiscan results from today revealed large fixed defect involving the entire inferior lateral aspect of the left ventricle which may represent old artifact. In addition, unable to exclude a small area of inducible ischemia along the mid to apical anterior septal wall. Patient is asymptomatic and is without complaints of angina. There are no plans for cardiac catheterization at this time. Patient will be treated medically. Patient is at increased risk for cardiovascular events perioperatively. However there are no absolute contraindications for patient to proceed from a cardiac standpoint. Lexiscan stress test results reviewed with Dr. Edgar and plan of care was dictated by Dr. Edgar. Vascular team updated. 04/03/2024 Patient examined this morning at the bedside. Patient denies chest pain or pressure. He denies shortness of breath. Vital signs are stable. PHYSICAL EXAM: VITAL SIGNS: Reviewed. GENERAL: Well-developed in no acute distress. NECK: Supple. No JVD or thyromegaly LUNGS: Respirations even and unlabored. Lungs essentially clear to auscultation bilaterally. HEART: Regular rate and rhythm. S1 and S2 heard. EXTREMITIES: Normal range of motion. No clubbing or cyanosis. Peripheral pulses intact. Multiple diabetic ulcers, ischemic change to the left great toe. ASSESSMENT: Severe peripheral arterial disease Ischemic diabetic wound left great toe History of left heel osteomyelitis History of coronary artery disease with previous CABG Hypertension Diabetes with A1c 9.3 Chronic kidney disease Dyslipidemia History of CVA PLAN: Continue current cardiac medications Lexiscan results revealed large fixed defect involving the entire inferior lateral aspect of the left ventricle which may represent old artifact. In addition, unable to exclude a small area of inducible ischemia along the mid to apical anterior septal wall. Patient is asymptomatic and is without complaints of angina. There are no plans for cardiac catheterization at this time. Patient will be treated medically. Patient is at increased risk for cardiovascular events perioperatively. However there are no absolute contraindications for patient to proceed from a cardiac standpoint. Patient is tentatively scheduled for left femoral to tibial artery bypass and left femoral endarterectomy today Further recommendations pending patient course Nurse practitioner note has been reviewed by physician. Signing provider agrees with the documented findings, assessment, and plan of care documented by CONTINUOUS PICKLING LINE PICKLER HELPER as a scribe. Objective - Vital Signs Vital signs: Vital Signs Temp 98.5 F 04/03/24 07:20 Pulse 94 04/03/24 09:46 Resp 18 04/03/24 07:20 BP 144/70 04/03/24 07:20 Pulse Ox 95 04/03/24 07:20 FiO2 Intake & Output 04/02/24 04/03/24 04/03/24 18:59 06:59 18:59 Output Total 1500 1700 Balance -1500 -1700 Output: Urine 1500 1700 Other: Voiding Method Diaper Diaper Incontinent Incontinent External Catheter External Catheter - Labs CBC & Chem 7: 04/03/24 07:17 04/03/24 07:17 Labs: Abnormal Lab Results - Last 24 Hours (Table) 04/02/24 04/02/24 04/02/24 Range/Units 12:21 17:18 19:58 RBC (4.30-5.90) m/uL Hgb (13.0-17.5) gm/dL Hct (39.0-53.0) % Sodium (137-145) mmol/L Chloride (98-107) mmol/L Carbon Dioxide (22-30) mmol/L BUN (9-20) mg/dL Creatinine (0.66-1.25) mg/dL Glucose (74-99) mg/dL POC Glucose (mg/dL) 120 H 374 H 342 H (70-110) mg/dL 04/02/24 04/03/24 04/03/24 Range/Units 22:17 07:17 07:17 RBC 3.28 L (4.30-5.90) m/uL Hgb 9.6 L (13.0-17.5) gm/dL Hct 30.6 L (39.0-53.0) % Sodium 135 L (137-145) mmol/L Chloride 111 H (98-107) mmol/L Carbon Dioxide 16 L (22-30) mmol/L BUN 65 H (9-20) mg/dL Creatinine 1.74 H (0.66-1.25) mg/dL Glucose 233 H (74-99) mg/dL POC Glucose (mg/dL) 264 H (70-110) mg/dL 04/03/24 Range/Units 07:23 RBC (4.30-5.90) m/uL Hgb (13.0-17.5) gm/dL Hct (39.0-53.0) % Sodium (137-145) mmol/L Chloride (98-107) mmol/L Carbon Dioxide (22-30) mmol/L BUN (9-20) mg/dL Creatinine (0.66-1.25) mg/dL Glucose (74-99) mg/dL POC Glucose (mg/dL) 239 H (70-110) mg/dL
[2024-04-03 12:08] LABS: Glucose,Whole Blood 358 mg/dL (70-110)
[2024-04-03 12:08] LABS: Glucose,Whole Blood 381 mg/dL (70-110)
[2024-04-03] MEDS: IV FLUID CONTINUATION 1,000 ML IV ONE (14:30)
[2024-04-03 14:33] LABS: Glucose,Whole Blood 348 mg/dL (70-110)
[2024-04-03] MEDS: MIDAZOLAM 2 MG/2 ML VIAL IVP ONE (14:56)
[2024-04-03] MEDS: INSULIN ASPART (NovoLOG) 100 UNIT/ML VIAL SQ ONE (15:00)
[2024-04-03] MEDS ORDERED: NEOSTIGMINE 1 MG/ML 10 ML VIAL ONE (15:20)
[2024-04-03] MEDS ORDERED: HEPARIN SODIUM,PORCINE 10,000 UNIT/ML 1 ML VIAL ONE (15:20)
[2024-04-03] MEDS ORDERED: GLYCOPYRROLATE 0.2 MG/ML 2 ML VIAL ONE (15:20)
[2024-04-03] MEDS ORDERED: ROCURONIUM 10 MG/ML (5 ML VIAL) IV ONE (15:20)
[2024-04-03] MEDS ORDERED: PROPOFOL 10 MG/ML 20 ML VIAL IV ONE (15:20)
[2024-04-03] MEDS ORDERED: LIDOCAINE 1% INJ 10MG/ML (20 ML MDV) ONE (15:20)
[2024-04-03] MEDS ORDERED: ePHEDrine 50 MG/ML 1 ML VIAL ONE (15:20)
[2024-04-03] MEDS ORDERED: PHENYLEPHRINE 10 MG/ML VIAL ONE (15:20)
[2024-04-03] MEDS ORDERED: fentaNYL (PF) 50 MCG/ML 2 ML AMP ONE (15:20)
[2024-04-03] MEDS: SODIUM CHLORIDE 0.9% 1,000 ML IV ONE (15:25)
[2024-04-03] MEDS: THROMBIN (BOVINE) 5,000 UNIT VIAL TOPICAL ONE (16:13)
[2024-04-03] MEDS: HEPARIN SODIUM,PORCINE 500 UNIT in LACTATED RINGERS 1,000 ML IRRIGATION ONE (18:22)
[2024-04-03] MEDS: ceFAZolin 4,000 MG in SODIUM CHLORIDE 0.9% 1,000 ML IRRIGATION ONE (18:22)
[2024-04-03] MEDS: DEXTROSE 5%-LACTATED RINGERS 1,000 ML IV ONE (18:23)
[2024-04-03] MEDS: LACTATED RINGERS 1,000 ML IV ONE ×2 (18:36→19:27)
--- NOTE | 2024-04-03 19:18 | P.PN ---
Progress Note - Text Progress Note Date: 04/03/24 Chief Complaint: Left foot infection This is a 73-year-old patient, follows Dr. Bell. Patient was seen by me in the ER. Chronic stable medical condition include CAD, diabetes, GERD, hypertension, hyperlipidemia, neuropathy. CAD with bypass and stent. PAD. Depression panic disorder. Patient's sister is his legal guardian: Radha Patient presents to the ER with left foot infection. He has had different wounds and follows up with the wound care center by Dr. Fiore. He was treated for a left heel wound. Also has had a great toe wound. Patient has been having increasing pain in the left bone. Apparently drainage from the left foot. Somewhat tender. Patient's sister and daughter at the bedside. Appetite is fair. March 27, 2024: Admitted with left foot infection deep tissue/abscess. Spoke with Dr. Pascal from vascular. He will be going out of town. Will consult Dr. Romeo from vascular. ID following. Oral intake good. Patient diabetes appears to be brittle. Follow March 28, 2024: Spoke to patient's sister German yesterday. She did confirm that she is a legal guardian takes all decisions for the patient. I did convey this to Dr. Romeo from vascular. Patient's sister was okay with proceeding with surgical intervention including amputation if so felt by Dr. Romeo. This morning ENTRY LEVEL SOFTWARE DEVELOPER Анна informed me that doctors for reevaluation patient was always a standing and able to decline surgery. They placed ethics consult for the same. I did speak to the hospital legal department manager Mrs. Frost, to assist in the situation. I spoke to the patient and explained to him the reason surgery is offering operation because it is felt antibiotics would not really help. Patient was initially irritated but then said he will proceed for surgery. I did communicate this to Анна BIRD. Meantime patient to continue with antibiotics. urgency of surgery is to be determined by Dr. Romeo. Await further input. March 29: Patient underwent CT angiogram lower extremity. Discussed with Dr. Romeo. Plan for surgical intervention likely bypass on Monday. Cardiology clearance requested. I did try to reach patient's sister on the phone. This morning- Unsuccessful. Did talk to the patient.-He is agreeable to proceed with bypass. Tentatively he is being boarded for next Monday. I am being covered by [facility] starting tomorrow. Tried reaching the sister again at about 4:20 PM.- Unable to get through 03/30/2024 Patient is seen in follow-up this morning currently laying in bed and lower extremities care home hanging off the bed. Patient appears to be slightly confused although this is baseline and patient is able to have conversation. Multiple consultations following including cardiology and vascular surgery. Patient awaiting to undergo stress test on Monday with cardiology for clearance for possible tentative left femoral endarterectomy and femoral to tibial bypass with CryoVein that is scheduled on Monday if medically cleared and cardiology clears. Attempting to contact family to confirm consent. Patient continues on antibiotics with infectious disease following with concerns of left lower extremity cellulitis. Discussion is also being had about possible BKA. Patient is currently afebrile with no reports of chest pain or shortness of breath. Patient reports to tolerating diet with no reported nausea or vomiting. Blood sugars are uncontrolled and will adjust medications accordingly and recommend to continue monitoring Accu-Cheks ACHS as well as 2 AM as needed 03/31/2024 Patient is evaluated in follow up today. He is resting in bed. Reporting some congestion and shortness of breath did receive a dose of IV lasix yesterday. He is on room air. Lungs are clear. His chest xray shows interstitial lung disease with no acute pulmonary process. Sodium is 136, BUN 52, creatinine 1.63. He will be going for stress test tomorrow. Possible amputation next week of the left foot. His cultures are currently final and normal. Remains on antibiotics. 04/01/2024 Patient evaluated in follow up. Resting in bed. Having pain to the left foot. He is receiving norco and dilaudid for breakthrough pain. He is not having any shortness of breath today. Patient had breakfast stress test has been rescheduled He will undergo left lower extremity fem-tib bypass and femoral endarectomy when cardiology has cleared the patient. He remains on IV daptomycin and IV cefepime. 04/02/2024 Patient scheduled to under chemical stress test today findings of a large fixed defect involving the entire inferolateral aspect of the left ventricle that may represent an old infarct. Unable to exclude a small area of inducible ischemia along the mid to apical anteroseptal wall. LV function 48%. April 03, 2024: I saw the patient this morning. Patient due to go down for surgery later today. NPO. Some pain in the infected leg. Patient states he is ready for surgery. Active Medications Acetaminophen (Acetaminophen Tab 325 Mg Tab) 650 mg PO Q6HR PRN PRN Reason: Mild Pain or Fever > 100.5 Last Admin: 04/01/24 00:08 Dose: 650 mg Hydrocodone Bitart/Acetaminophen (Hydrocodone/Apap 5-325mg 1 Each Tab) 1 each PO Q4HR PRN PRN Reason: Pain Last Admin: 04/02/24 05:13 Dose: 1 each Albuterol/Ipratropium (Ipratropium-Albuterol 3 Ml Neb) 3 ml INHALATION RT-Q6H [facility] Last Admin: 04/03/24 15:59 Dose: Not Given Alprazolam (Alprazolam 0.25 Mg Tab) 0.25 mg PO DAILY PRN PRN Reason: Anxiety Last Admin: 04/01/24 20:24 Dose: 0.25 mg Amlodipine Besylate (Amlodipine 5 Mg Tab) 5 mg PO BID@0800,2000 [facility] Last Admin: 04/03/24 08:32 Dose: 5 mg Aspirin (Aspirin 81 Mg) 81 mg PO DAILY@1700 [facility] Last Admin: 04/02/24 18:06 Dose: 81 mg Atorvastatin Calcium (Atorvastatin 80 Mg Tab) 80 mg PO HS [facility] Last Admin: 04/02/24 22:28 Dose: 80 mg Benzonatate (Benzonatate 100 Mg Cap) 100 mg PO TID PRN PRN Reason: Cough Bisacodyl (Bisacodyl 10 Mg Supp) 10 mg RECTAL DAILY PRN PRN Reason: Constipation Calcium Carbonate/Glycine (Calcium Carbonate 500 Mg Chewable) 1,000 mg PO Q4HR PRN PRN Reason: Dyspepsia Cholecalciferol (Cholecalciferol 25 Mcg (1000 Iu) Tablet) 25 mcg PO DAILY@0800 [facility] Last Admin: 04/03/24 08:32 Dose: 25 mcg Collagenase (Collagenase 250 Unit/Gm Ointment 30 Gm Tube) 1 applic TOPICAL DAILY [facility]; Protocol Last Admin: 04/03/24 08:35 Dose: Not Given Dapagliflozin (Dapagliflozin Propanediol 10 Mg Tablet) 10 mg PO DAILY@0800 [facility] Last Admin: 04/03/24 08:32 Dose: 10 mg Dextrose/Water (Dextrose 50% Syringe 50 Ml) 25 ml IVP PER PROTOCOL PRN; Protocol PRN Reason: Hypoglycemia Dextrose/Water (Dextrose 50% Syringe 50 Ml) 50 ml IVP PER PROTOCOL PRN; P rotocol PRN Reason: Hypoglycemia Escitalopram Oxalate (Escitalopram 10 Mg Tab) 10 mg PO DAILY@0800 [facility] Last Admin: 04/03/24 08:33 Dose: 10 mg Famotidine (Famotidine 20 Mg Tab) 20 mg PO DAILY@0800 [facility] Last Admin: 04/03/24 08:33 Dose: 20 mg Ferrous Sulfate (Ferrous Sulfate 325 Mg Tab) 325 mg PO DAILY@1700 [facility] Last Admin: 04/02/24 18:06 Dose: 325 mg Folic Acid (Folic Acid 1 Mg Tab) 1 mg PO DAILY@1200 [facility] Last Admin: 04/03/24 08:34 Dose: Not Given Gabapentin (Gabapentin 400 Mg Cap) 400 mg PO HS@2100 [facility] Last Admin: 04/02/24 22:28 Dose: 400 mg Hydromorphone HCl (Hydromorphone 0.5 Mg/0.5 Ml Syringe) 0.5 mg IVP Q3HR PRN PRN Reason: Moderate Pain (Scale 4 to 6) Last Admin: 04/03/24 10:04 Dose: 0.5 mg Cefepime HCl 2 gm/ Sodium (Chloride) 100 mls @ 25 mls/hr IVPB Q12H [facility]; Protocol Last Admin: 04/03/24 11:46 Dose: 25 mls/hr Daptomycin 300 mg/ Sodium (Chloride) 50 mls @ 100 mls/hr IVPB Q24H [facility]; Protocol Insulin Aspart (Insulin Aspart (Novolog) 100 Unit/Ml Vial) 8 unit SQ TID@0800,1200,1700 [facility] Last Admin: 04/03/24 13:02 Dose: Not Given Insulin Aspart (Insulin Aspart (Novolog) 100 Unit/Ml Vial) 0 unit SQ ACHS [facility]; Protocol Last Admin: 04/03/24 13:22 Dose: 10 unit Insulin Detemir (Insulin Detemir (Levemir) 100 Unit/Ml Syr) 15 unit SQ BID@0700,2100 [facility] Last Admin: 04/03/24 08:31 Dose: Not Given Isosorbide Mononitrate (Isosorbide Mononitrate Er 30 Mg Tab.Er.24h) 30 mg PO DAILY@0800 [facility] Last Admin: 04/03/24 08:34 Dose: 30 mg Lactic Acid (Ammonium Lactate 12% Cream 140 Gm Tube) 1 applic TOPICAL BID PRN; Protocol PRN Reason: Dry Skin Lactulose (Lactulose 20 Gm/30 Ml Cup) 20 gm PO DAILY PRN PRN Reason: Constipation Levothyroxine Sodium (Levothyroxine 75 Mcg Tab) 150 mcg PO DAILY@0630 [facility] Last Admin: 04/03/24 06:19 Dose: 150 mcg Magnesium Hydroxide (Magnesium Hydroxide 2,400 Mg/30 Ml Cup) 7,200 mg PO Q48H PRN PRN Reason: Constipation Melatonin (Melatonin 3 Mg Tablet) 3 mg PO HS PRN PRN Reason: Insomnia Metoprolol Tartrate (Metoprolol Tartrate 50 Mg Tab) 50 mg PO BID@0800,1700 [facility] Last Admin: 04/03/24 08:35 Dose: 50 mg Multivitamins (Multivitamins, Thera 1 Each Tab) 1 each PO DAILY@1200 [facility] Last Admin: 04/03/24 08:34 Dose: Not Given Naloxone HCl (Naloxone 0.4 Mg/Ml 1 Ml Vial) 0.2 mg IV Q2M PRN PRN Reason: Opioid Reversal Non-Formulary Medication (Dulaglutide [Trulicity]) 1.5 mg SQ TH [facility] Last Admin: 03/28/24 08:25 Dose: Not Given Nystatin (Nystatin 100,000 Unit/Gm Powd 15 Gm) 1 applic TOPICAL TID [facility]; Protocol Last Admin: 04/03/24 08:35 Dose: 1 applic Ondansetron HCl (Ondansetron 4 Mg Tab) 4 mg PO Q8H PRN PRN Reason: Nausea And Vomiting Pantoprazole Sodium (Pantoprazole 40 Mg Tablet) 40 mg PO AC-BRKFST [facility] Last Admin: 04/03/24 08:32 Dose: 40 mg Petrolatum (Petrolatum, White Oint 50 Gm Tube) 1 applic TOPICAL TUTHSA [facility]; Protocol Last Admin: 04/03/24 03:28 Dose: Not Given Tamsulosin HCl (Tamsulosin 0.4 Mg Cap.Er.24h) 0.4 mg PO HS@2100 [facility] Last Admin: 04/02/24 22:28 Dose: 0.4 mg Thiamine HCl (Thiamine 100 Mg Tab) 100 mg PO BID-W/MEALS [facility] Last Admin: 04/03/24 08:32 Dose: 100 mg Social history: Former smoker. Patient's sister denies a legal guardian Physical examination: VITAL SIGNS: 99, 77, 18, 127 x 55, 93% room air GENERAL: Resting in bed, EYES: Pupils equal. Conjunctiva cindy l. HEENT: External appearance of nose and ears normal, oral cavity grossly normal. NECK: JVD not raised; masses not palpable. HEART: First and second heart sounds are normal; no edema. LUNGS: Respiratory rate normal; decreased breath sounds. ABDOMEN: Soft, nontender, liver spleen not palpable, no masses palpable. PSYCH: Patient agreeable to proceed with bypass surgery lower extremity-had discussed with Dr. Romeo earlier today. MUSCULOSKELETAL:No Clubbing/cyanosis;muscles-grossly intact. Left foot is swollen. Some wounds including the dorsum. Tender. Some drainage. NEUROLOGICAL: Stuttering speech. INVESTIGATIONS, reviewed in the clinical context: April 03: White count 6.5 hemoglobin 9.6 platelets 304 sodium 135 potassium 4.8 BUN 65 creatinine 1.74 March 26, 2024: White count 7.7 hemoglobin 9.5 platelets 448 sodium 135 potassium 5.8 BUN 67 creatinine 1.8 EKG tracing personally reviewed by me-normal sinus rhythm. Rate 81 Left foot x-ray: Focal areas of osteopenia subtle periostitis at the posterior calcaneus. Soft tissue swelling around the great toe. Previous labs: Creatinine 1.44 on February 15 Assessment plan: -Suspect abscess of the left foot and possible soft tissue deep infection. Foot is rather swollen and tender and areas of drainage. Patient has known PAD and also underlying diabetes. Previous cultures that showed growing MRSA and Pseudomonas.: Improving Dr. Romeo from vascular:: Offered amputation to the patient. Patient declined surgery to Dr. Romeo. As per my discussion with the patient today he is agreeable for the same. CT angiogram shows significant lower extremity disease. Dr. Romeo is leaning towards bypass this coming Monday. Cardiology clearance r given. Lexiscan stress test: Large fixed defect involving the entire inferolateral aspect of the left ventricle. Unable to exclude inducible ischemia. EF 48%.-Higher perioperative risk Wound culture, blood culture negative till now ID following -Hyperlipidemia Lipitor 80 mg nightly -Diabetes mellitus type 2, uncontrolled with hyperglycemia. Brittle Follow Accu-Cheks with sliding scale Jardiance 25 mg a day Trulicity. Urrutiaemir. 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 Add Lokelma 10 mg 3 times daily -BPH Flomax 0.4 mg nightly -GERD Pepcid 20 mg a day -Hypothyroid Synthroid 150 mcg a day -Peripheral arterial disease Lipitor -Cognitive impairment -CAD with a prior history of coronary bypass and stent Lopressor 50 mg twice daily -Chronic wound to the left foot follows at the wound care center -Full code -Legal guardian, Sister Radha: Legal guardian makes all decisions for the patient. Patient pending surgery this afternoon. Spoke to the patient. He is agreeable to same. Past Medical History Past Medical History: Coronary Artery Disease (CAD), Diabetes Mellitus, GERD/Reflux, Hyperlipidemia, Hypertension, Myocardial Infarction (HI), Thyroid Disorder Additional Past Medical History / Comment(s): neuropathy, diabetic coma in 2000 and pt's sister has had legal guardianship since. Last Myocardial Infarction Date:: unknown History of Any Multi-Drug Resistant Organisms: ESBL, MRSA, MRSA Date of last positivie culture/infection: 11/23/23-MRSA; 09/25/23 ESBL MDRO Source:: Left Heel-MRSA; Blood-ESBL Past Surgical History: Appendectomy, Coronary Bypass/CABG, Heart Catheterization With Stent Additional Past Surgical History / Comment(s): Sister relays, "He had peripheral artery surgery too." Past Anesthesia/Blood Transfusion Reactions: No Reported Reaction Date of Last Stent Placement:: unknown Past Psychological History: Depression, Panic Disorder Smoking Status: Former smoker Past Alcohol Use History: Daily Past Drug Use History: Marijuana
[2024-04-03 19:39] LABS: Glucose,Whole Blood 139 mg/dL (70-110)
--- NOTE | 2024-04-03 20:03 | P.OP ---
Date of Procedure: 04/03/24 Description of Procedure: Preoperative diagnosis: Severe peripheral arterial disease Postoperative diagnosis: Same Procedure: Left femoral endarterectomy and patch angioplasty Left femoral to distal popliteal artery bypass with CryoVein Surgeon: Pricila Romeo D.O. [employer] Supervisor: Alex Pena EBL: 150 mL IV fluids: See records Drains: None Urine output: See records Specimen: Left femoral plaque Complications: None Condition: Stable, extubated in the OR to PACU Operative indication and findings: Procedure in detail: Patient is a 73-year-old male with [place] 5 peripheral arterial disease and severe pain of his left lower extremity. He was found to have severe peripheral vascular disease and was recommended undergo bypass. Risk and benefits were discussed including but not limited to bleeding, infection, injury to the vessel, loss of limb and loss of life. He seemingly understood and was willing to proceed. Patient taken to the operative suite placed in supine position and intubated. A Romeo catheter was placed. The abdomen and left lower extremity prepped and draped in usual sterile fashion. A preprocedure timeout was performed and all parties are in agreement. An incision was made in the groin with the scalpel. It was deepened through subcutaneous tissues with electrocautery. The encountered lymphatics were ligated and divided. The femoral sheath was opened sharply. The common femoral artery was dissected free circumferentially. The dissection was extended proximally to the level of the inguinal ligament. The common femoral artery was encircled with vessel loops proximally and distally. Attention was then turned towards the below-knee incision. It was made in the medial border of the tibia. Dissection was carried down through the subcutaneous tissue with electrocautery. The neurovascular bundle was identified. The popliteal artery, anterior tibial artery,Tibioperoneal trunk and posterior tibial artery all appeared significantly calcified therefore an Doppler was utilized which did reveal flow in the vessel itself. Due to having flow at the popliteal level, the vessel was chosen for outflow. It was encircled proximally and distally. Attention was then turned back to the femoral artery. The tunnel had been previously placed through the subcutaneous tissue. The patient was heparinized. Flow was occluded through the femoral artery. Arteriotomy was performed, there was significant dense plaquing which was endarterectomized. This was done to the past the level of the superficial femoral artery takeoff which was occluded. The profunda endarterectomy was performed in inversion style and the profunda had adequate backbleeding. A patch was placed and anastomosis created with 5-0 Prolene. The cadaver vein was prepped. An 11 blade was utilized and arteriotomy is made the Cormier-Amaya scissors was utilized to enlarge the arteriotomy. At this time there is nowgood inflow from the proximal artery. . An anastomosis created using 6-0 Prolene between the femoral artery and the cadaver vein. An arteriotomy of the distal popliteal artery was then performed. There was evidence of good backbleeding. The vein was cut to size and spatulated. Utilizing 6-0 Prolene an anastomosis was created. Hemostasis was achieved with interrupted sutures of 6-0 Prolene and Surgicel. At this point all anastomoses were completed and flow was resumed through the bypass graft. A Doppler was utilized to confirm multiphasic flow distally to the anastomosis. The wound was copiously irrigated with antibiotic solution. The femoral sheath was reapproximated with interrupted sutures of 3-0 Vicryl. The subcuticular tissue was reapproximated with 3-0 Vicryl. The skin was reprepped with running sutures of 4-0 Monocryl. The deep dermal tissues of the lateral incision at the calf were reapproximated with 3-0 Vicryl. The subcutaneous tissues were reapproximated with 3-0 Vicryl and the skin was reapproximated with running 4-0 Monocryl in subcuticular fashion. Dressings were placed. The patient was extubated and transferred to recovery in stable condition having tolerated the procedure well.
[2024-04-03 21:36] LABS: Glucose,Whole Blood 246 mg/dL (70-110)
[2024-04-04 01:31] LABS: Glucose,Whole Blood 161 mg/dL (70-110)
[2024-04-04 03:51] LABS: Basophils % (A) 1 %; Eosinophils # (A) 0.2 k/uL (0-0.7); Eosinophils % (A) 2 %; HCT 26.6 % (39.0-53.0); Hypochromasia Moderate; Lymphocytes # (A) 0.9 k/uL (1.0-4.8); Lymphocytes % (A) 11 %; MCH 27.7 pg (25.0-35.0); MCHC 29.6 g/dL (31.0-37.0); MCV 93.6 fL (80.0-100.0); Mean Platelet Volume 7.9; Monocytes # (A) 0.5 k/uL (0-1.0); Monocytes % (A) 6 %; Neutrophils # (A) 6.4 k/uL (1.3-7.7); Neutrophils % (A) 79 %; Platelet Count 289 k/uL (150-450); RBC 2.85 m/uL (4.30-5.90); RDW 14.2 % (11.5-15.5); WBC 8.1 k/uL (3.8-10.6)
[2024-04-04 04:07] LABS: HGB 7.9 gm/dL (13.0-17.5)
[2024-04-04 06:12] LABS: Glucose,Whole Blood 115 mg/dL (70-110)
--- NOTE | 2024-04-04 10:41 | P.ANPRN ---
Procedure Note - Anesthesia - Invasive Line Left Arterial Line Time Out Performed: Yes Date of Procedure: 04/03/24 Location of Patient: PreOp Preparation: Sterile Prep, Sterile Dressing Arterial Line Location: Radial Ultrasound Used: Yes Purpose - Visualization and Identification of Vasculature: Yes Image Stored and Saved: No Narrative: Invasive line placement per sterile protocol utilized. Informed consent obtained from the patient. Procedure was performed under complete aseptic precautions. Left brachial artery was selected as some unsuccessful attempts with the radial artery due to weak pulse. Part wa cleaned and draped Ultrasound used for the visualization of the artery.. 2 mL of 1% lidocaine was infiltrate. A 20-gauge two and half inch Arrow arterial catheter was inserted and a bright red blood/back was noticed. It was connected to the pressure monitoring line and the flashback was confirmed. The line was sutured into the skin. Tegaderm dressing was applied. Patient tolerated the procedure very well with no apparent complications.
[2024-04-04 11:43] LABS: Glucose,Whole Blood 151 mg/dL (70-110)
--- NOTE | 2024-04-04 14:37 | P.PN ---
Subjective Progress Note Date: 04/04/24 HISTORY OF PRESENT ILLNESS: This is a 73-year-old male patient of Dr. Jayde Edgar with past medical history of coronary artery disease status post CABG in [place] in 2002, details are not available, hypertension, diabetes mellitus type 2, dyslipidemia, chronic kidney disease, severe PAD, history of CVA. We have been asked to evaluate the patient for surgical clearance, patient is tentatively scheduled for left lower extremity revascularization. Patient also has history of osteomyelitis of the left heel status post antibiotic therapy and return to [facility] due to a left big toe wound. He has been seen by infectious disease and vascular surgery with plan for possible revascularization next week. Patient apparently has verbalized that he does not want to go through with amputation for diabetic foot infection and he has a legal guardian. This was reviewed by ethics committee. Patient denies having any chest pain or shortness of breath. EKG sinus rhythm with poor R wave progression Chest x-ray: No acute process. Suspect COPD and interstitial chronic lung disease such as pulmonary fibrosis. WBC 8.8, hemoglobin 10.7. Sodium 139, potassium 5, BUN 44 and creatinine 1.78. Hemoglobin A1c is 9.3 Home cardiac medications: Amlodipine 5 mg twice daily, aspirin 81 mg daily, atorvastatin 80 mg at bedtime, Imdur 30 mg daily, Lopressor 50 mg twice daily, also on levothyroxine and Jardiance 25 mg daily. Echocardiogram performed on 03/29/2024 reveals EF of 50%. LV size is upper limit of normal with anterior hypokinesia. Mild mitral and tricuspid regurgitation. No significant pulmonary hypertension. No pericardial effusion. Mitral and aortic valve leaflets are calcified but no significant restriction. Lexiscan Cardiolite stress test performed in the office on 08/01/2019 was a negative stress test by EKG criteria. Abnormal nuclear scan showing evidence of prior inferior lateral wall myocardial infarction with preserved LV function without any ischemia. 04/01/2024 Patient examined this morning the bedside. Patient is resting comfortably. No complaints of chest pain or shortness of breath. Vital signs are stable. Patient was initially scheduled for Lexiscan stress test today, however the patient was given a full breakfast. 04/02/2024 Patient examined this morning in the stress lab. Patient currently denies chest pain or pressure. He denies shortness of breath. Vital signs are stable. Patient is scheduled for Lexiscan stress test this morning. Addendum entered and electronically signed by Moni Fisher NP-C 04/02/24 12:47: Lexiscan results from today revealed large fixed defect involving the entire inferior lateral aspect of the left ventricle which may represent old artifact. In addition, unable to exclude a small area of inducible ischemia along the mid to apical anterior septal wall. Patient is asymptomatic and is without complaints of angina. There are no plans for cardiac catheterization at this time. Patient will be treated medically. Patient is at increased risk for cardiovascular events perioperatively. However there are no absolute contraindications for patient to proceed from a cardiac standpoint. Lexiscan stress test results reviewed with Dr. Edgar and plan of care was dictated by Dr. Edgar. Vascular team updated. 04/03/2024 Patient examined this morning at the bedside. Patient denies chest pain or pre ssure. He denies shortness of breath. Vital signs are stable. 04/04 Patient is seen today in follow-up. He has been transferred to the cardiac stepdown unit. Patient denies having any chest pain or shortness of breath. Yesterday, patient underwent left femoral endarterectomy and patch angioplasty, left femoral to distal popliteal bypass. Blood pressure 129/62, heart rate 82, pulse ox 95% on room air. Hemoglobin is 7.9. PHYSICAL EXAM: VITAL SIGNS: Reviewed. GENERAL: Well-developed in no acute distress. NECK: Supple. No JVD or thyromegaly LUNGS: Respirations even and unlabored. Lungs essentially clear to auscultation bilaterally. HEART: Regular rate and rhythm. S1 and S2 heard. EXTREMITIES: Normal range of motion. No clubbing or cyanosis. Peripheral pulses intact. Multiple diabetic ulcers, ischemic change to the left great toe. ASSESSMENT: Severe peripheral arterial disease Ischemic diabetic wound left great toe History of left heel osteomyelitis History of coronary artery disease with previous CABG Hypertension Diabetes with A1c 9.3 Chronic kidney disease Dyslipidemia History of CVA PLAN: Continue current cardiac medications Cardiology will sign off this case and follow on an as-needed basis. Please reconsult for any new concerns. Patient may follow-up in the office in one to [address] Jayde Edgar. Nurse practitioner note has been reviewed by physician. Signing provider agrees with the documented findings, assessment, and plan of care documented by [employer] DI[employer]ITIAN as a scribe. Objective - Vital Signs Vital signs: Vital Signs Temp 99.3 F 04/04/24 08:00 Pulse 79 04/04/24 08:00 Resp 18 04/04/24 08:00 BP 126/62 04/04/24 08:00 Pulse Ox 94 L 04/04/24 08:00 FiO2 Intake & Output 04/03/24 04/04/24 04/04/24 18:59 06:59 18:59 Intake Total 2002 400 120 Output Total 750 1760 600 Balance 4613 -0384 -893 Weight 75.75 kg Intake: IV 2002 400 Oral 120 Output: Urine 750 1560 600 Estimated Blood Loss 200 Other: Voiding Method Diaper Indwelling Catheter Incontinent External Catheter # Voids 1 - Labs CBC & Chem 7: 04/04/24 03:14 04/03/24 07:17 Labs: Abnormal Lab Results - Last 24 Hours (Table) 04/02/24 04/03/24 04/03/24 Range/Units 08:11 12:06 12:07 RBC (4.30-5.90) m/uL Hgb (13.0-17.5) gm/dL Hct (39.0-53.0) % MCHC (31.0-37.0) g/dL Lymphocytes # (1.0-4.8) k/uL POC Glucose (mg/dL) 381 H 358 H (70-110) mg/dL Crossmatch See Detail 04/03/24 04/03/24 04/03/24 Range/Units 14:32 19:35 21:33 RBC (4.30-5.90) m/uL Hgb (13.0-17.5) gm/dL Hct (39.0-53.0) % MCHC (31.0-37.0) g/dL Lymphocytes # (1.0-4.8) k/uL POC Glucose (mg/dL) 348 H 139 H 246 H (70-110) mg/dL Crossmatch 04/04/24 04/04/24 04/04/24 Range/Units 01:29 03:14 06:04 RBC 2.85 L (4.30-5.90) m/uL Hgb 7.9 L D (13.0-17.5) gm/dL Hct 26.6 L (39.0-53.0) % MCHC 29.6 L (31.0-37.0) g/dL Lymphocytes # 0.9 L (1.0-4.8) k/uL POC Glucose (mg/dL) 161 H 115 H (70-110) mg/dL Crossmatch
--- NOTE | 2024-04-04 16:02 | P.PN ---
Progress Note - Text Progress Note Date: 04/04/24 Chief Complaint: Left foot infection This is a 73-year-old patient, follows Dr. Bell. Patient was seen by me in the ER. Chronic stable medical condition include CAD, diabetes, GERD, hypertension, hyperlipidemia, neuropathy. CAD with bypass and stent. PAD. Depression panic disorder. Patient's sister is his legal guardian: Radha Patient presents to the ER with left foot infection. He has had different wounds and follows up with the wound care center by Dr. Foire. He was treated for a left heel wound. Also has had a great toe wound. Patient has been having increasing pain in the left bone. Apparently drainage from the left foot. Somewhat tender. Patient's sister and daughter at the bedside. Appetite is fair. March 27, 2024: Admitted with left foot infection deep tissue/abscess. Spoke with Dr. Pascal from vascular. He will be going out of town. Will consult Dr. Romeo from vascular. ID following. Oral intake good. Patient diabetes appears to be brittle. Follow March 28, 2024: Spoke to patient's sister German yesterday. She did confirm that she is a legal guardian takes all decisions for the patient. I did convey this to Dr. Romeo from vascular. Patient's sister was okay with proceeding with surgical intervention including amputation if so felt by Dr. Romeo. This morning INSURANCE AND BENEFITS CLERK Анна informed me that doctors for reevaluation patient was always a standing and able to decline surgery. They placed ethics consult for the same. I did speak to the hospital workers compensation paralegal Mrs. Frost, to assist in the situation. I spoke to the patient and explained to him the reason surgery is offering operation because it is felt antibiotics would not really help. Patient was initially irritated but then said he will proceed for surgery. I did communicate this to Анна BIRD. Meantime patient to continue with antibiotics. urgency of surgery is to be determined by Dr. Romeo. Await further input. March 29: Patient underwent CT angiogram lower extremity. Discussed with Dr. Romeo. Plan for surgical intervention likely bypass on Monday. Cardiology clearance requested. I did try to reach patient's sister on the phone. This morning- Unsuccessful. Did talk to the patient.-He is agreeable to proceed with bypass. Tentatively he is being boarded for next Monday. I am being covered by [facility] starting tomorrow. Tried reaching the sister again at about 4:20 PM.- Unable to get through 03/30/2024 Patient is seen in follow-up this morning currently laying in bed and lower extremities senior living hanging off the bed. Patient appears to be slightly confused although this is baseline and patient is able to have conversation. Multiple consultations following including cardiology and vascular surgery. Patient awaiting to undergo stress test on Monday with cardiology for clearance for possible tentative left femoral endarterectomy and femoral to tibial bypass with CryoVein that is scheduled on Monday if medically cleared and cardiology clears. Attempting to contact family to confirm consent. Patient continues on antibiotics with infectious disease following with concerns of left lower extremity cellulitis. Discussion is also being had about possible BKA. Patient is currently afebrile with no reports of chest pain or shortness of breath. Patient reports to tolerating diet with no reported nausea or vomiting. Blood sugars are uncontrolled and will adjust medications accordingly and recommend to continue monitoring Accu-Cheks ACHS as well as 2 AM as needed 03/31/2024 Patient is evaluated in follow up today. He is resting in bed. Reporting some congestion and shortness of breath did receive a dose of IV lasix yesterday. He is on room air. Lungs are clear. His chest xray shows interstitial lung disease with no acute pulmonary process. Sodium is 136, BUN 52, creatinine 1.63. He will be going for stress test tomorrow. Possible amputation next week of the left foot. His cultures are currently final and normal. Remains on antibiotics. 04/01/2024 Patient evaluated in follow up. Resting in bed. Having pain to the left foot. He is receiving norco and dilaudid for breakthrough pain. He is not having any shortness of breath today. Patient had breakfast stress test has been rescheduled He will undergo left lower extremity fem-tib bypass and femoral endarectomy when cardiology has cleared the patient. He remains on IV daptomycin and IV cefepime. 04/02/2024 Patient scheduled to under chemical stress test today findings of a large fixed defect involving the entire inferolateral aspect of the left ventricle that may represent an old infarct. Unable to exclude a small area of inducible ischemia along the mid to apical anteroseptal wall. LV function 48%. April 03, 2024: I saw the patient this morning. Patient due to go down for surgery later today. NPO. Some pain in the infected leg. Patient states he is ready for surgery. April 04, 2024: Yesterday patient underwent left femoral endarterectomy and patch angioplasty left femoral to distal popliteal artery bypass with CryoVein. EBL 150 cc. Postprocedure with Romeo catheter patient has significant hematuria. Urology was consulted. This morning hematuria is lightened up. Patient tired. Eating some. Gangrenous changes to left foot big toe hemoglobin did drop to 7.9. Because of postop drop in hemoglobin Dr. Romeo has ordered a unit of blood. Active Medications Acetaminophen (Acetaminophen Tab 325 Mg Tab) 650 mg PO Q6HR PRN PRN Reason: Mild Pain or Fever > 100.5 Last Admin: 04/01/24 00:08 Dose: 650 mg Hydrocodone Bitart/Acetaminophen (Hydrocodone/Apap 5-325mg 1 Each Tab) 1 each PO Q4HR PRN PRN Reason: Pain Last Admin: 04/02/24 05:13 Dose: 1 each Albuterol/Ipratropium (Ipratropium-Albuterol 3 Ml Neb) 3 ml INHALATION RT-Q6H [facility] Last Admin: 04/04/24 13:28 Dose: 3 ml Alprazolam (Alprazolam 0.25 Mg Tab) 0.25 mg PO DAILY PRN PRN Reason: Anxiety Last Admin: 04/01/24 20:24 Dose: 0.25 mg Amlodipine Besylate (Amlodipine 5 Mg Tab) 5 mg PO BID@0800,2000 [facility] Last Admin: 04/04/24 09:51 Dose: 5 mg Aspirin (Aspirin 81 Mg) 81 mg PO DAILY@1700 [facility] Last Admin: 04/03/24 22:01 Dose: 81 mg Atorvastatin Calcium (Atorvastatin 80 Mg Tab) 80 mg PO HS [facility] Last Admin: 04/03/24 22:01 Dose: 80 mg Benzonatate (Benzonatate 100 Mg Cap) 100 mg PO TID PRN PRN Reason: Cough Bisacodyl (Bisacodyl 10 Mg Supp) 10 mg RECTAL DAILY PRN PRN Reason: Constipation Calcium Carbonate/Glycine (Calcium Carbonate 500 Mg Chewable) 1,000 mg PO Q4HR PRN PRN Reason: Dyspepsia Cholecalciferol (Cholecalciferol 25 Mcg (1000 Iu) Tablet) 25 mcg PO DAILY@0800 [facility] Last Admin: 04/04/24 09:51 Dose: 25 mcg Collagenase (Collagenase 250 Unit/Gm Ointment 30 Gm Tube) 1 applic TOPICAL DAILY [facility]; Protocol Last Admin: 04/03/24 08:35 Dose: Not Given Dapagliflozin (Dapagliflozin Propanediol 10 Mg Tablet) 10 mg PO DAILY@0800 [facility] Last Admin: 04/04/24 09:51 Dose: 10 mg Dextrose/Water (Dextrose 50% Syringe 50 Ml) 25 ml IVP PER PROTOCOL PRN; Protocol PRN Reason: Hypoglycemia Dextrose/Water (Dextrose 50% Syringe 50 Ml) 50 ml IVP PER PROTOCOL PRN; Protocol PRN Reason: Hypoglycemia Escitalopram Oxalate (Escitalopram 10 Mg Tab) 10 mg PO DAILY@0800 [facility] Last Admin: 04/04/24 09:51 Dose: 10 mg Famotidine (Famotidine 20 Mg Tab) 20 mg PO DAILY@0800 [facility] Last Admin: 04/04/24 09:51 Dose: 20 mg Ferrous Sulfate (Ferrous Sulfate 325 Mg Tab) 325 mg PO DAILY@1700 [facility] Last Admin: 04/03/24 22:01 Dose: 325 mg Folic Acid (Folic Acid 1 Mg Tab) 1 mg PO DAILY@1200 [facility] Last Admin: 04/04/24 12:36 Dose: 1 mg Gabapentin (Gabapentin 400 Mg Cap) 400 mg PO HS@2100 [facility] Last Admin: 04/03/24 22:02 Dose: 400 mg Hydromorphone HCl (Hydromorphone 0.5 Mg/0.5 Ml Syringe) 0.5 mg IVP Q3HR PRN PRN Reason: Moderate Pain (Scale 4 to 6) Last Admin: 04/03/24 10:04 Dose: 0.5 mg Cefepime HCl 2 gm/ Sodium (Chloride) 100 mls @ 25 mls/hr IVPB Q12H [facility]; Protocol Last Admin: 04/04/24 12:36 Dose: 25 mls/hr Daptomycin 300 mg/ Sodium (Chloride) 50 mls @ 100 mls/hr IVPB Q24H [facility]; Protocol Last Admin: 04/04/24 04:47 Dose: 100 mls/hr Insulin Aspart (Insulin Aspart (Novolog) 100 Unit/Ml Vial) 8 unit SQ TID@0800,1200,1700 [facility] Last Admin: 04/04/24 12:36 Dose: 4 unit Insulin Aspart (Insulin Aspart (Novolog) 100 Unit/Ml Vial) 0 unit SQ [facility]; Protocol Last Admin: 04/04/24 12:36 Dose: Not Given Insulin Detemir (Insulin Detemir (Levemir) 100 Unit/Ml Syr) 15 unit SQ BID@0700,2100 [facility] Last Admin: 04/04/24 06:27 Dose: 15 unit Isosorbide Mononitrate (Isosorbide Mononitrate Er 30 Mg Tab.Er.24h) 30 mg PO DAILY@0800 [facility] Last Admin: 04/04/24 09:51 Dose: 30 mg Lactic Acid (Ammonium Lactate 12% Cream 140 Gm Tube) 1 applic TOPICAL BID PRN; Protocol PRN Reason: Dry Skin Lactulose (Lactulose 20 Gm/30 Ml Cup) 20 gm PO DAILY PRN PRN Reason: Constipation Levothyroxine Sodium (Levothyroxine 75 Mcg Tab) 150 mcg PO DAILY@0630 [facility] Last Admin: 04/04/24 06:27 Dose: 150 mcg Magnesium Hydroxide (Magnesium Hydroxide 2,400 Mg/30 Ml Cup) 7,200 mg PO Q48H P RN PRN Reason: Constipation Melatonin (Melatonin 3 Mg Tablet) 3 mg PO HS PRN PRN Reason: Insomnia Metoprolol Tartrate (Metoprolol Tartrate 50 Mg Tab) 50 mg PO BID@0800,1700 [facility] Last Admin: 04/04/24 09:51 Dose: 50 mg Multivitamins (Multivitamins, Thera 1 Each Tab) 1 each PO DAILY@1200 [facility] Last Admin: 04/04/24 12:35 Dose: 1 each Naloxone HCl (Naloxone 0.4 Mg/Ml 1 Ml Vial) 0.2 mg IV Q2M PRN PRN Reason: Opioid Reversal Non-Formulary Medication (Dulaglutide [Trulicity]) 1.5 mg SQ TH [facility] Last Admin: 04/04/24 09:51 Dose: Not Given Nystatin (Nystatin 100,000 Unit/Gm Powd 15 Gm) 1 applic TOPICAL TID [facility]; Protocol Last Admin: 04/04/24 09:52 Dose: 1 applic Ondansetron HCl (Ondansetron 4 Mg Tab) 4 mg PO Q8H PRN PRN Reason: Nausea And Vomiting Pantoprazole Sodium (Pantoprazole 40 Mg Tablet) 40 mg PO AC-BRKFST [facility] Last Admin: 04/04/24 06:27 Dose: 40 mg Petrolatum (Petrolatum, White Oint 50 Gm Tube) 1 applic TOPICAL TUTHSA [facility]; Protocol Last Admin: 04/03/24 03:28 Dose: Not Given Tamsulosin HCl (Tamsulosin 0.4 Mg Cap.Er.24h) 0.4 mg PO HS@2100 [facility] Last Admin: 04/03/24 22:01 Dose: 0.4 mg Thiamine HCl (Thiamine 100 Mg Tab) 100 mg PO BID-W/MEALS [facility] Last Admin: 04/04/24 06:27 Dose: 100 mg Social history: Former smoker. Patient's sister denies a legal guardian Physical examination: VITAL SIGNS: 98.4, 82, 16, 129 x 62, 95% GENERAL: Reclining in bed, tired EYES: Pupils equal. Conjunctiva cindy l. HEENT: External appearance of nose and ears normal, oral cavity grossly normal. NECK: JVD not raised; masses not palpable. HEART: First and second heart sounds are normal; no edema. LUNGS: Respiratory rate normal; decreased breath sounds. ABDOMEN: Soft, nontender, liver spleen not palpable, no masses palpable. PSYCH: Rather tired. Somewhat reluctant to answer questions will answer yes and no MUSCULOSKELETAL:No Clubbing/cyanosis;muscles-grossly intact. Left foot is swollen. Some wounds including the dorsum. Tender. Left big toe some gangrene changes NEUROLOGICAL: Stuttering speech. INVESTIGATIONS, reviewed in the clinical context: April 04: White count 8.1 hemoglobin 7.9 platelets 289 April 03: White count 6.5 hemoglobin 9.6 platelets 304 sodium 135 potassium 4.8 BUN 65 creatinine 1.74 March 26, 2024: White count 7.7 hemoglobin 9.5 platelets 448 sodium 135 potassium 5.8 BUN 67 creatinine 1.8 EKG tracing personally reviewed by me-normal sinus rhythm. Rate 81 Left foot x-ray: Focal areas of osteopenia subtle periostitis at the posterior calcaneus. Soft tissue swelling around the great toe. Previous labs: Creatinine 1.44 on February 15 Assessment plan: -Suspect abscess of the left foot and possible soft tissue deep infection. Foot is rather swollen and tender and areas of drainage. Patient has known PAD and also underlying diabetes. Previous cultures that showed growing MRSA and Pseudomonas.: Improving Wound cultures: Polymicrobial CT angiogram shows significant lower extremity disease. April 03, 2024:left femoral endarterectomy and patch angioplasty left femoral to distal popliteal artery bypass with CryoVein. Cardiology clearance r given. Lexiscan stress test: Large fixed defect involving the entire inferolateral aspect of the left ventricle. Unable to exclude inducible ischemia. EF 48%.-Higher perioperative risk ID following -Hyperlipidemia Lipitor 80 mg nightly -Diabetes mellitus type 2, uncontrolled with hyperglycemia. Brittle Follow Accu-Cheks with sliding scale Jardiance 25 mg a day Trulicity. Levemir. 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 -BPH Flomax 0.4 mg nightly -GERD Pepcid 20 mg a day -Hypothyroid Synthroid 150 mcg a day -Peripheral arterial disease Lipitor -Cognitive impairment -CAD with a prior history of coronary bypass and stent Lopressor 50 mg twice daily -Chronic wound to the left foot follows at the wound care center -Full code -Legal guardian, Sister Radha: Legal guardian makes all decisions for the patient. Unit of blood was ordered. Follow closely. Continue with IV cefepime. Past Medical History Past Medical History: Coronary Artery Disease (CAD), Diabetes Mellitus, GERD/Reflux, Hyperlipidemia, Hypertension, Myocardial Infarction (CA), Thyroid Disorder Additional Past Medical History / Comment(s): neuropathy, diabetic coma in 2000 and pt's sister has had legal guardianship since. Last Myocardial Infarction Date:: unknown History of Any Multi-Drug Resistant Organisms: ESBL, MRSA, MRSA Date of last positivie culture/infection: 11/23/23-MRSA; 09/25/23 ESBL MDRO Source:: Left Heel-MRSA; Blood-ESBL Past Surgical History: Appendectomy, Coronary Bypass/CABG, Heart Catheterization With Stent Additional Past Surgical History / Comment(s): Sister relays, "He had peripheral artery surgery too." Past Anesthesia/Blood Transfusion Reactions: No Reported Reaction Date of Last Stent Placement:: unknown Past Psychological History: Depression, Panic Disorder Smoking Status: Former smoker Past Alcohol Use History: Daily Past Drug Use History: Marijuana
--- NOTE | 2024-04-04 16:03 | P.PN ---
Subjective Progress Note Date: 04/04/24 Principal diagnosis: Left lower extremity nonhealing wounds, peripheral arterial disease Patient seen and examined today as a follow-up. He is lying in bed. He is postop day #1 for left femoral to popliteal artery bypass and left femoral endarterectomy with patch angioplasty. Patient currently still has Romeo catheter and it is pink-tinged. He states his left lower extremity pain is improved. He denies any shortness of breath, chest pain, no abdominal pain nausea or vomiting. He has been afebrile. Today's repeat hemoglobin 7.9. Urology was consulted by primary medical team for hematuria. Objective - Vital Signs Vital signs: Vital Signs Temp 99.3 F 04/04/24 08:00 Pulse 97 04/04/24 09:38 Resp 18 04/04/24 08:00 BP 126/62 04/04/24 08:00 Pulse Ox 94 L 04/04/24 08:00 FiO2 Intake & Output 04/03/24 04/04/24 04/04/24 18:59 06:59 18:59 Intake Total 2002 400 120 Output Total 750 1760 600 Balance 1253 1360 -480 Weight 75.75 kg Intake: IV 2002 400 Oral 120 Output: Urine 750 1560 600 Estimated Blood Loss 200 Other: Voiding Method Diaper Indwelling Catheter Incontinent External Catheter # Voids 1 - Exam General appearance: The patient is alert, oriented, appears in no acute distress. HET: Head is normocephalic and atraumatic. Neck: Supple. Abdomen: Soft, nondistended. Extremities: Left foot pink, warm to the touch. Left groin with Prevena dressing in place with good suction. Left lower extremity Prevena dressing in place with good suction. Diabetic ulcers to left lower extremity and cherry along with a blister with clear fluid. Left heel pressure ulcer, healing. PT and DP Doppler signal present. Neurological: Patient is alert and oriented to person place and time. - Labs CBC & Chem 7: 04/04/24 03:14 04/03/24 07:17 Labs: Abnormal Lab Results - Last 24 Hours (Table) 04/02/24 04/03/24 04/03/24 Range/Units 08:11 12:06 12:07 RBC (4.30-5.90) m/uL Hgb (13.0-17.5) gm/dL Hct (39.0-53.0) % MCHC (31.0-37.0) g/dL Lymphocytes # (1.0-4.8) k/uL POC Glucose (mg/dL) 381 H 358 H (70-110) mg/dL Crossmatch See Detail 04/03/24 04/03/24 04/03/24 Range/Units 14:32 19:35 21:33 RBC (4.30-5.90) m/uL Hgb (13.0-17.5) gm/dL Hct (39.0-53.0) % MCHC (31.0-37.0) g/dL Lymphocytes # (1.0-4.8) k/uL POC Glucose (mg/dL) 348 H 139 H 246 H (70-110) mg/dL Crossmatch 04/04/24 04/04/24 04/04/24 Range/Units 01:29 03:14 06:04 RBC 2.85 L (4.30-5.90) m/uL Hgb 7.9 L D (13.0-17.5) gm/dL Hct 26.6 L (39.0-53.0) % MCHC 29.6 L (31.0-37.0) g/dL Lymphocytes # 0.9 L (1.0-4.8) k/uL POC Glucose (mg/dL) 161 H 115 H (70-110) mg/dL Crossmatch Assessment and Plan Assessment: 1. Severe peripheral arterial disease, postop day #1 left femoral to distal popliteal artery bypass with CryoVein and left femoral endarterectomy and patch angioplasty 2. Left lower extremity chronic nonhealing diabetic ulcers 3. Left great toe diabetic ulcer with ischemic changes 4. Hemodynamically significant peripheral arterial disease with history of revascularization and bypass 5. History of nonhealing wounds 6. Diabetes mellitus Plan: 1. Consult physical therapy 2. Patient may be up and with activity as tolerated 3. Continue Prevena wound VAC dressings for 7 days 4. Transfuse 1 unit of blood 5. Repeat CBC, BMP is a 6. Rest of medical management per primary medical team Thank you for this consultation. We will continue to follow. The impression and plan of care has been dictated as directed. Dr. Romeo I performed a history and examination of this patient, discussed the same with the dictator. I agree with the dictator's note ,documented as a scribe. Any additional findings or plans will be noted.
--- NOTE | 2024-04-04 16:12 | P.PN ---
Subjective Progress Note Date: 04/03/24 Principal diagnosis: Reason for follow-up is left diabetic foot infection Patient is a 73-year-old male with a past medical history significant for diabetes mellitus hypertension hyperlipidemia AR coronary artery disease patient did have a history of left heel infected pressure ulcer with underlying osteomyelitis for the patient has completed his antibiotic therapy, patient presenting to the hospital with worsening wound and discoloration to the left big toe concerning for diabetic foot infection. On today's evaluation that is 04/03/2024, the patient continues to be afebrile, the patient is on room air and breathing comfortably, the Pt denies having any chest pain or cough, the patient denies having any abdominal pain no vomiting or any diarrhea has been reported by the nursing staff, patient denies any worsening pain to the left lower extremity. Patient white count 6.5, creatinine 1.74 Objective - Vital Signs Vital signs: Vital Signs Temp 98.0 F 04/03/24 14:31 Pulse 81 04/03/24 14:31 Resp 16 04/03/24 14:31 BP 128/60 04/03/24 14:31 Pulse Ox 95 04/03/24 14:31 FiO2 Intake & Output 04/02/24 04/03/24 04/03/24 18:59 06:59 18:59 Output Total 1500 1700 750 Balance -1500 -1700 -750 Output: Urine 1500 1700 750 Other: Voiding Method Diaper Diaper Diaper Incontinent Incontinent Incontinent External Catheter External Catheter External Catheter # Voids 1 - Exam GENERAL DESCRIPTION: An elderly male lying in bed in no distress RESPIRATORY SYSTEM: Unlabored breathing , decreased breath sounds at bases HEART: S1 S2 regular rate and rhythm , ABDOMEN: Soft , no tenderness EXTREMITIES: Left big toe with some discoloration did have some superficial elevation to the left foot no foul-smelling drainage - Labs CBC & Chem 7: 04/04/24 03:14 04/03/24 07:17 Labs: Abnormal Lab Results - Last 24 Hours (Table) 04/02/24 04/02/24 04/02/24 Range/Units 17:18 19:58 22:17 RBC (4.30-5.90) m/uL Hgb (13.0-17.5) gm/dL Hct (39.0-53.0) % Sodium (137-145) mmol/L Chloride (98-107) mmol/L Carbon Dioxide (22-30) mmol/L BUN (9-20) mg/dL Creatinine (0.66-1.25) mg/dL Glucose (74-99) mg/dL POC Glucose (mg/dL) 374 H 342 H 264 H (70-110) mg/dL 04/03/24 04/03/24 04/03/24 Range/Units 07:17 07:17 07:23 RBC 3.28 L (4.30-5.90) m/uL Hgb 9.6 L (13.0-17.5) gm/dL Hct 30.6 L (39.0-53.0) % Sodium 135 L (137-145) mmol/L Chloride 111 H (98-107) mmol/L Carbon Dioxide 16 L (22-30) mmol/L BUN 65 H (9-20) mg/dL Creatinine 1.74 H (0.66-1.25) mg/dL Glucose 233 H (74-99) mg/dL POC Glucose (mg/dL) 239 H (70-110) mg/dL 04/03/24 04/03/24 04/03/24 Range/Units 12:06 12:07 14:32 RBC (4.30-5.90) m/uL Hgb (13.0-17.5) gm/dL Hct (39.0-53.0) % Sodium (137-145) mmol/L Chloride (98-107) mmol/L Carbon Dioxide (22-30) mmol/L BUN (9-20) mg/dL Creatinine (0.66-1.25) mg/dL Glucose (74-99) mg/dL POC Glucose (mg/dL) 381 H 358 H 348 H (70-110) mg/dL Assessment and Plan (1) Diabetic infection of left foot Current Visit: Yes Status: Acute Code(s): E11.628 - TYPE 2 DIABETES MELLITUS WITH OTHER SKIN COMPLICATIONS; L08.9 - LOCAL INFECTION OF THE SKIN AND SUBCUTANEOUS TISSUE, UNSP SNOMED Code(s): 57103231 (2) Type 2 diabetes mellitus with foot ulcer Current Visit: No Status: Acute Code(s): E11.621 - TYPE 2 DIABETES MELLITUS WITH FOOT ULCER; L97.509 - NON-PRESSURE CHRONIC ULCER OTH PRT UNSP FOOT W UNSP SEVERITY SNOMED Code(s): 227598625 Plan: 1patient being admitted to the hospital with worsening wound to the left big toe in this patient with underlying history of diabetes mellitus and also a history left heel osteomyelitis for the patient has completed antibiotic therapy patient has shown overall improvement in almost healing of the left heel wound now with wound to the left big toe has some superficial solution to the left foot concerning for diabetic foot wound and secondary cellulitis will need to call for the resistant gram-positive as well as gram-negative pathogen as the patient has previously grown MRSA and Pseudomonas 2-patient with renal insufficiency and high risk of nephrotoxicity from vancomycin kidney function is being monitored closely 3-local culture has been obtained which has been negative so far 4-patient to continue with cefepime and daptomycin, currently scheduled for vascular procedure this afternoon Dictation was produced using IP[employer] dictation software. please excuse any grammatical, word or spelling errors. Time with Patient: Less than 30
--- NOTE | 2024-04-04 16:13 | P.PN ---
Subjective Progress Note Date: 04/04/24 Principal diagnosis: Reason for follow-up is left diabetic foot infection Patient is a 73-year-old male with a past medical history significant for diabetes mellitus hypertension hyperlipidemia [place] coronary artery disease patient did have a history of left heel infected pressure ulcer with underlying osteomyelitis for the patient has completed his antibiotic therapy, patient presenting to the hospital with worsening wound and discoloration to the left big toe concerning for diabetic foot infection. Patient is status post left femoral endarterectomy and patch angioplasty as well as left femoral to distal popliteal artery bypass with CryoVein procedure completed on 04/03/2024. On today's evaluation that is 04/04/2024, Patient is afebrile patient is currently on room air and denies having any shortness of breath, the patient denies any chest pain or cough, the patient denies any nausea vomiting did not have any abdominal pain and no diarrhea, but denies any worsening pain to the left lower extremity patient white count is 8.1 Objective - Vital Signs Vital signs: Vital Signs Temp 98.0 F 04/04/24 11:58 Pulse 67 04/04/24 11:58 Resp 16 04/04/24 11:58 BP 134/65 04/04/24 11:58 Pulse Ox 97 04/04/24 11:58 FiO2 Intake & Output 04/03/24 04/04/24 04/04/24 18:59 06:59 18:59 Intake Total 2002 400 120 Output Total 750 1760 600 Balance 9447 -0616 -602 Weight 75.75 kg Intake: IV 2002 400 Oral 120 Blood Product 0 Unit 0 Output: Urine 750 1560 600 Estimated Blood Loss 200 Other: Voiding Method Diaper Indwelling Catheter Incontinent External Catheter # Voids 1 - Exam GENERAL DESCRIPTION: An elderly male lying in bed in no distress RESPIRATORY SYSTEM: Unlabored breathing , decreased breath sounds at bases HEART: S1 S2 regular rate and rhythm , ABDOMEN: Soft , no tenderness EXTREMITIES: Left big toe with some discoloration did have some superficial elevation to the left foot no foul-smelling drainage - Labs CBC & Chem 7: 04/04/24 03:14 04/03/24 07:17 Labs: Abnormal Lab Results - Last 24 Hours (Table) 04/02/24 04/03/24 04/03/24 Range/Units 08:11 14:32 19:35 RBC (4.30-5.90) m/uL Hgb (13.0-17.5) gm/dL Hct (39.0-53.0) % MCHC (31.0-37.0) g/dL Lymphocytes # (1.0-4.8) k/uL POC Glucose (mg/dL) 348 H 139 H (70-110) mg/dL Crossmatch See Detail 04/03/24 04/04/24 04/04/24 Range/Units 21:33 01:29 03:14 RBC 2.85 L (4.30-5.90) m/uL Hgb 7.9 L D (13.0-17.5) gm/dL Hct 26.6 L (39.0-53.0) % MCHC 29.6 L (31.0-37.0) g/dL Lymphocytes # 0.9 L (1.0-4.8) k/uL POC Glucose (mg/dL) 246 H 161 H (70-110) mg/dL Crossmatch 04/04/24 04/04/24 Range/Units 06:04 11:42 RBC (4.30-5.90) m/uL Hgb (13.0-17.5) gm/dL Hct (39.0-53.0) % MCHC (31.0-37.0) g/dL Lymphocytes # (1.0-4.8) k/uL POC Glucose (mg/dL) 115 H 151 H (70-110) mg/dL Crossmatch Assessment and Plan (1) Diabetic infection of left foot Current Visit: Yes Status: Acute Code(s): E11.628 - TYPE 2 DIABETES MELLITUS WITH OTHER SKIN COMPLICATIONS; L08.9 - LOCAL INFECTION OF THE SKIN AND SUBCUTANEOUS TISSUE, UNSP SNOMED Code(s): 06493037 (2) Type 2 diabetes mellitus with foot ulcer Current Visit: No Status: Acute Code(s): E11.621 - TYPE 2 DIABETES MELLITUS WITH FOOT ULCER; L97.509 - NON-PRESSURE CHRONIC ULCER OTH PRT UNSP FOOT W UNSP SEVERITY SNOMED Code(s): 995090267 Plan: 1patient being admitted to the hospital with worsening wound to the left big toe in this patient with underlying history of diabetes mellitus and also a history left heel osteomyelitis for the patient has completed antibiotic therapy patient has shown overall improvement in almost healing of the left heel wound now with wound to the left big toe has some superficial solution to the left foot concerning for diabetic foot wound and secondary cellulitis will need to call for the resistant gram-positive as well as gram-negative pathogen as the patient has previously grown MRSA and Pseudomonas 2-patient with renal insufficiency and high risk of nephrotoxicity from vancomycin kidney function is being monitored closely 3-local culture has been obtained which has been negative so far 4-patient is status post extensive vascular procedure to the left lower extremity completed yesterday patient is broadly covered cefepime and daptomycin to continue to help heal his wound infection Dictation was produced using [employer] dictation software. please excuse any grammatical, word or spelling errors. Time with Patient: Less than 30
[2024-04-04 16:23] LABS: Glucose,Whole Blood 270 mg/dL (70-110)
[2024-04-04 17:55] LABS: Basophils % (A) 1 %; Eosinophils # (A) 0.1 k/uL (0-0.7); Eosinophils % (A) 2 %; HCT 28.1 % (39.0-53.0); HGB 8.6 gm/dL (13.0-17.5); Hypochromasia Moderate; Lymphocytes # (A) 0.8 k/uL (1.0-4.8); Lymphocytes % (A) 10 %; MCHC 30.6 g/dL (31.0-37.0); MCV 94.6 fL (80.0-100.0); Mean Platelet Volume 8.3; Monocytes # (A) 0.4 k/uL (0-1.0); Monocytes % (A) 5 %; Neutrophils # (A) 6.8 k/uL (1.3-7.7); Neutrophils % (A) 82 %; Platelet Count 303 k/uL (150-450); RBC 2.97 m/uL (4.30-5.90); RDW 14.4 % (11.5-15.5); WBC 8.3 k/uL (3.8-10.6)
--- NOTE | 2024-04-04 18:37 | P.GSCN ---
History of Present Illness Consult date: 04/04/24 Reason for Consult: Gross hematuria History of present illness: This is a 73-year-old male that underwent Left femoral endarterectomy Left femo ral to distal popliteal artery bypass by Dr. Romeo yesterday. Patient was noticed to have gross hematuria upon Romeo catheter insertion in the OR. He had continued to have persistent hematuria last night which was resolving this morning. Denies any previous history of gross hematuria. Urine this morning is blood-tinged, with no clots. He does follow-up with Dr. Ambrocio as an outpatient. Of note he did have a CT abdomen pelvis on December of this year that showed evidence of left-sided hydronephrosis, focal thickening along the left lateral bladder wall upon imaging review. creatinine is 1.74 which is at his baseline Review of Systems - Constitutional Denies fever, Denies weight loss - EENT Ears, nose, mouth and throat: Denies dysphagia - Cardiovascular Denies chest pain, Denies shortness of breath - Respiratory Denies cough, Denies 7 - Gastrointestinal Reports as per HPI - Genitourinary Reports hematuria, Denies flank pain Past Medical History Past Medical History: Coronary Artery Disease (CAD), Diabetes Mellitus, GERD/Reflux, Hyperlipidemia, Hypertension, Myocardial Infarction ([place]), Thyroid Disorder Additional Past Medical History / Comment(s): neuropathy, diabetic coma in 2000 and pt's sister has had legal guardianship since. 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-MRSA; 09/25/23 ESBL MDRO Source:: Left Heel-MRSA; Blood-ESBL Past Surgical History: Appendectomy, Coronary Bypass/CABG, Heart Catheterization With Stent Additional Past Surgical History / Comment(s): Sister relays, "He had peripheral artery surgery too." Past Anesthesia/Blood Transfusion Reactions: No Reported Reaction Date of Last Stent Placement:: unknown Past Psychological History: Depression, Panic Disorder Smoking Status: Former smoker Past Alcohol Use History: Daily Past Drug Use History: Marijuana - Past Family History Father Family Medical History: Congestive Heart Failure (CHF) Mother Additional Family Medical History / Comment(s): of old age. Medications and Allergies Home Medications Medication Instructions Recorded Confirmed Type Aspirin [Dickson Aspirin EC] 81 mg PO DAILY@1700 03/13/19 03/26/24 History Ferrous Sulfate [Iron (65 MG 325 mg PO DAILY@1700 03/13/19 03/26/24 History Elemental)] Isosorbide Mononitrate ER [Imdur] 30 mg PO DAILY@0800 03/13/19 03/26/24 History Pantoprazole Sodium [Protonix] 40 mg PO DAILY@0600 03/13/19 03/26/24 History Ammonium Lactate Cream [Lac-Hydrin 1 applic TOPICAL BID PRN 04/13/23 03/26/24 History 12% Cream] Atorvastatin [Lipitor] 80 mg PO HS@2100 04/13/23 03/26/24 History Empagliflozin [Jardiance] 25 mg PO DAILY@0800 04/13/23 03/26/24 History Escitalopram [Lexapro] 10 mg PO DAILY@0800 04/13/23 03/26/24 History Glucerna Shake 237 ml PO AC-SUPPER@1500 09/24/23 03/26/24 History Liquacel 30 ml PO BID@0800,1700 09/24/23 03/26/24 History Magnesium Hydroxide [Milk of 7,200 mg PO Q48H PRN 09/24/23 03/26/24 History Magnesia Concentrate] Metoprolol Tartrate [Lopressor] 50 mg PO BID@0800,1700 09/24/23 03/26/24 History Na Phos,M-B/Na Phos,Di-Ba [Fleet 133 ml RECTAL DAILY PRN 09/24/23 03/26/24 History Adult] bisacodyL [Dulcolax] 10 mg RECTAL DAILY PRN 09/24/23 03/26/24 History Cholecalciferol [Vitamin D3 (25 25 mcg PO DAILY@0812/19/23 03/26/24 History Mcg = 1000 Iu)] Famotidine [Pepcid] 20 mg PO DAILY@0812/19/23 03/26/24 History Levothyroxine Sodium [Synthroid] 150 mcg PO DAILY@0600 12/19/23 03/26/24 History Tamsulosin HCl [Flomax] 0.4 mg PO HS@2100 12/19/23 03/26/24 History Dulaglutide [Trulicity] 1.5 mg SQ TH 01/13/24 03/26/24 History Ondansetron [Zofran] 4 mg PO Q8H PRN 01/13/24 03/26/24 History amLODIPine [Norvasc] 5 mg PO BID@0800,2000 01/13/24 03/26/24 History Benzonatate [Tessalon Perles] 100 mg PO TID PRN cap 01/23/24 03/26/24 Rx Folic Acid 1 mg PO DAILY@1200 tab 01/23/24 03/26/24 Rx Nystatin 100,000 Unit/gm Powd 1 applic TOPICAL TID each 01/23/24 03/26/24 Rx [Mycostatin Powder] Thiamine [Vitamin B-1] 100 mg PO BID-W/MEALS tab 01/23/24 03/26/24 Rx ALPRAZolam [Xanax] 0.25 mg PO DAILY PRN 02/16/24 03/26/24 History Acetaminophen [Tylenol 8 Hour] 650 mg PO Q8H PRN 02/16/24 03/26/24 History HYDROcodone/APAP 5-325MG [[place] 1 tab PO Q4HR PRN 02/16/24 03/26/24 History 5-325] Insulin Detemir (Levemir) [Levemir] 13 unit SQ BID@0700,2100 each 02/16/24 03/26/24 Rx Ipratropium-Albuterol Nebulize 3 ml INHALATION RT-Q6H 02/16/24 03/26/24 History [Duoneb 0.5 mg-3 mg/3 ml Soln] Multivitamins, Thera [Multivitamin 1 tab PO DAILY@1200 02/16/24 03/26/24 History (formulary)] Enoxaparin [Lovenox] 40 mg SQ DAILY@0800 03/26/24 03/26/24 History Gabapentin [Neurontin] 400 mg PO HS@2100 03/26/24 03/26/24 History INSULIN ASPART (NovoLOG) [NovoLOG 8 unit SQ TID@0800,1200,1700 03/26/24 03/26/24 History (formulary)] INSULIN ASPART (NovoLOG) [NovoLOG See Protocol SQ ACHS 03/26/24 03/26/24 History (formulary)] Petrolat,White/Javi/8-Hydroxyqu 1 applic TOPICAL TUTHSA 03/26/24 03/26/24 History [Bag [place]] clindamycin HCL [Cleocin HCl] 300 mg PO BID@0800,2100 03/26/24 03/26/24 History Allergies Allergy/AdvReac Type Severity Reaction Status Date / Time No Known Allergies Allergy Verified 03/26/24 17:47 Surgical - Exam Vital Signs Temp Pulse Resp BP Pulse Ox 98.6 F 78 16 174/83 98 03/26/24 15:20 03/26/24 15:20 03/26/24 15:20 03/26/24 15:20 03/26/24 15:20 - General no distress, no pain - Eyes normal ocular movement, no pale - Respiratory normal expansion, normal respiratory effort - Abdomen Abdomen: soft, non tender - Genitourinary Romeo in place, blood-tinged urine no clots draining without difficulty Results - Labs 04/04/24 17:39 04/03/24 07:17 Abnormal Lab Results - Last 24 Hours (Table) 04/02/24 04/03/24 04/03/24 Range/Units 08:11 19:35 21:33 RBC (4.30-5.90) m/uL Hgb (13.0-17.5) gm/dL Hct (39.0-53.0) % MCHC (31.0-37.0) g/dL Lymphocytes # (1.0-4.8) k/uL POC Glucose (mg/dL) 139 H 246 H (70-110) mg/dL Crossmatch See Detail 04/04/24 04/04/24 04/04/24 Range/Units 01:29 03:14 06:04 RBC 2.85 L (4.30-5.90) m/uL Hgb 7.9 L D (13.0-17.5) gm/dL Hct 26.6 L (39.0-53.0) % MCHC 29.6 L (31.0-37.0) g/dL Lymphocytes # 0.9 L (1.0-4.8) k/uL POC Glucose (mg/dL) 161 H 115 H (70-110) mg/dL Crossmatch 04/04/24 04/04/24 04/04/24 Range/Units 11:42 16:21 17:39 RBC 2.97 L (4.30-5.90) m/uL Hgb 8.6 L (13.0-17.5) gm/dL Hct 28.1 L (39.0-53.0) % MCHC 30.6 L (31.0-37.0) g/dL Lymphocytes # 0.8 L (1.0-4.8) k/uL POC Glucose (mg/dL) 151 H 270 H (70-110) mg/dL Crossmatch Assessment and Plan Assessment: This is a 73-year-old male with gross hematuria upon Romeo catheter insertion. Hematuria is resolving this morning. Bleeding most likely secondary to pro static trauma from catheter insertion. He did have a CT of December of this year that showed left hydronephrosis with a focal thickening along the left lateral bladder wall, he is a patient of Dr. Sena. No acute intervention from urology standpoint, his hematuria is resolving, as for his hydronephrosis given the creatinine is at baseline no acute intervention. He can follow-up as an outpatient with Dr. Ambrocio given the evidence of hydronephrosis, and the focal bladder wall thickening on CT of December of this year
[2024-04-04 19:55] LABS: Glucose,Whole Blood 274 mg/dL (70-110)
[2024-04-04] MEDS: MELATONIN 3 MG TABLET PO PRN (20:18)
[2024-04-05 05:49] LABS: Glucose,Whole Blood 180 mg/dL (70-110)
[2024-04-05 07:59] VITALS: TEMP 98.2
[2024-04-05 10:29] LABS: HCT 30.3 % (39.0-53.0); HGB 8.9 gm/dL (13.0-17.5); Hypochromasia Marked; MCH 28.5 pg (25.0-35.0); MCHC 29.4 g/dL (31.0-37.0); MCV 97.1 fL (80.0-100.0); Mean Platelet Volume 7.9; Platelet Count 322 k/uL (150-450); RBC 3.12 m/uL (4.30-5.90); RDW 14.2 % (11.5-15.5); WBC 7.4 k/uL (3.8-10.6)
[2024-04-05 11:21] LABS: Glucose,Whole Blood 201 mg/dL (70-110)
--- NOTE | 2024-04-05 12:24 | P.PN ---
Subjective Progress Note Date: 04/05/24 Principal diagnosis: Left lower extremity nonhealing wounds, peripheral arterial disease Patient was seen and examined today as a follow-up. He is postop day #2 for left lower extremity Valero pop bypass and endarterectomy. He states he still has some pain but it is definitely better since surgery. Physical therapy has been consulted but they have yet to see patient. Prevena wound vacs are in place. He has been afebrile. Hemoglobin 8.9 Objective - Vital Signs Vital signs: Vital Signs Temp 98.1 F 04/05/24 03:26 Pulse 73 04/05/24 03:26 Resp 20 04/05/24 03:26 BP 129/67 04/05/24 03:26 Pulse Ox 93 L 04/05/24 03:26 FiO2 Intake & Output 04/04/24 04/05/24 04/05/24 18:59 06:59 18:59 Intake Total 670 120 Output Total 2175 1500 Balance -1505 -1380 Weight 75.75 kg Intake: Oral 360 120 Blood Product 310 Rc As-1 Unit 310 [id number] Output: Urine 2175 1500 Other: Voiding Method Indwelling Catheter Indwelling Catheter - Exam General appearance: The patient is alert, oriented, appears in no acute distress. HET: Head is normocephalic and atraumatic. Neck: Supple. Abdomen: Soft, nondistended. Extremities: Left foot pink, warm to the touch. Left groin with Prevena dressing in place with good suction. Left lower extremity Prevena dressing in place with good suction. Dressing in place to right cherry and left foot. Left heel pressure ulcer, healing. PT and DP Doppler signal present. Neurological: Patient is alert and oriented to person place and time. - Labs CBC & Chem 7: 04/05/24 09:36 04/03/24 07:17 Labs: Abnormal Lab Results - Last 24 Hours (Table) 04/02/24 04/04/24 04/04/24 Range/Units 08:11 11:42 16:21 RBC (4.30-5.90) m/uL Hgb (13.0-17.5) gm/dL Hct (39.0-53.0) % MCHC (31.0-37.0) g/dL Lymphocytes # (1.0-4.8) k/uL POC Glucose (mg/dL) 151 H 270 H (70-110) mg/dL Crossmatch See Detail 04/04/24 04/04/24 04/05/24 Range/Units 17:39 19:54 05:47 RBC 2.97 L (4.30-5.90) m/uL Hgb 8.6 L (13.0-17.5) gm/dL Hct 28.1 L (39.0-53.0) % MCHC 30.6 L (31.0-37.0) g/dL Lymphocytes # 0.8 L (1.0-4.8) k/uL POC Glucose (mg/dL) 274 H 180 H (70-110) mg/dL Crossmatch Assessment and Plan Assessment: 1. Severe peripheral arterial disease, postop day #2 left femoral to distal popliteal artery bypass with CryoVein and left femoral endarterectomy and patch angioplasty 2. Left lower extremity chronic nonhealing diabetic ulcers 3. Left great toe diabetic ulcer with ischemic changes 4. Hemodynamically significant peripheral arterial disease with history of revascularization and bypass 5. History of nonhealing wounds 6. Diabetes mellitus Plan: 1. Consult physical therapy 2. Patient may be up with activity as tolerated 3. Continue Prevena wound VAC dressings for 7 days. May remove and throw away on 04/10/2024 4. Rest of medical management per primary medical team 5. Patient is cleared from vascular surgery for discharge. Follow-up in 2 weeks. 6. Continue outpatient follow-up with wound care Thank you for this consultation. The impression and plan of care has been dictated as directed. Dr. Huertas I performed a history and examination of this patient, discussed the same with the dictator. I agree with the dictator's note ,documented as a scribe. Any additional findings or plans will be noted.
[2024-04-05 13:19] VITALS: RESP 16
--- NOTE | 2024-04-05 15:15 | P.PN ---
Subjective Progress Note Date: 04/05/24 Principal diagnosis: Reason for follow-up is left diabetic foot infection Patient is a 73-year-old male with a past medical history significant for diabetes mellitus hypertension hyperlipidemia [place] coronary artery disease patient did have a history of left heel infected pressure ulcer with underlying osteomyelitis for the patient has completed his antibiotic therapy, patient presenting to the hospital with worsening wound and discoloration to the left big toe concerning for diabetic foot infection. Patient is status post left femoral endarterectomy and patch angioplasty as well as left femoral to distal popliteal artery bypass with CryoVein procedure completed on 04/03/2024. On today's evaluation that is 04/05/2024, patient has been afebrile, patient is breathing comfortably and is currently on room air, patient denies having any significant cough no chest pain shortness of breath, patient denies nausea vomiting or diarrhea and no abdominal pain denies any worsening pain to the left lower extremity. Patient white count is 7.4 patient blood culture as well as left foot and 2 cultures negative this admission Objective - Vital Signs Vital signs: Vital Signs Temp 98.2 F 04/05/24 07:58 Pulse 63 04/05/24 08:00 Resp 18 04/05/24 08:00 BP 134/59 04/05/24 07:58 Pulse Ox 94 L 04/05/24 07:58 FiO2 Intake & Output 04/04/24 04/05/24 04/05/24 18:59 06:59 18:59 Intake Total 670 120 Output Total 2175 1500 800 Balance -4405 -2872 -800 Weight 75.75 kg Intake: Oral 360 120 Blood Product 310 Rc As-1 Unit 310 [id number] Output: Urine 2175 1500 800 Other: Voiding Method Indwelling Catheter Indwelling Catheter Indwelling Catheter - Exam GENERAL DESCRIPTION: An elderly male lying in bed in no distress RESPIRATORY SYSTEM: Unlabored breathing , decreased breath sounds at bases HEART: S1 S2 regular rate and rhythm , ABDOMEN: Soft , no tenderness EXTREMITIES: Left big toe did have some discoloration no drainage was noticed - Labs CBC & Chem 7: 04/05/24 09:36 04/03/24 07:17 Labs: Abnormal Lab Results - Last 24 Hours (Table) 04/02/24 04/04/24 04/04/24 Range/Units 08:11 16:21 17:39 RBC 2.97 L (4.30-5.90) m/uL Hgb 8.6 L (13.0-17.5) gm/dL Hct 28.1 L (39.0-53.0) % MCHC 30.6 L (31.0-37.0) g/dL Lymphocytes # 0.8 L (1.0-4.8) k/uL POC Glucose (mg/dL) 270 H (70-110) mg/dL Crossmatch See Detail 04/04/24 04/05/24 04/05/24 Range/Units 19:54 05:47 09:36 RBC 3.12 L (4.30-5.90) m/uL Hgb 8.9 L (13.0-17.5) gm/dL Hct 30.3 L (39.0-53.0) % MCHC 29.4 L (31.0-37.0) g/dL Lymphocytes # (1.0-4.8) k/uL POC Glucose (mg/dL) 274 H 180 H (70-110) mg/dL Crossmatch 04/05/24 Range/Units 11:18 RBC (4.30-5.90) m/uL Hgb (13.0-17.5) gm/dL Hct (39.0-53.0) % MCHC (31.0-37.0) g/dL Lymphocytes # (1.0-4.8) k/uL POC Glucose (mg/dL) 201 H (70-110) mg/dL Crossmatch Assessment and Plan (1) Diabetic infection of left foot Current Visit: Yes Status: Acute Code(s): E11.628 - TYPE 2 DIABETES MELLITUS WITH OTHER SKIN COMPLICATIONS; L08.9 - LOCAL INFECTION OF THE SKIN AND SUBCUTANEOUS TISSUE, UNSP SNOMED Code(s): 21089341 (2) Type 2 diabetes mellitus with foot ulcer Current Visit: No Status: Acute Code(s): E11.621 - TYPE 2 DIABETES MELLITUS WITH FOOT ULCER; L97.509 - NON-PRESSURE CHRONIC ULCER OTH PRT UNSP FOOT W UNSP SEVERITY SNOMED Code(s): 467153534 Plan: 1patient being admitted to the hospital with worsening wound to the left big toe in this patient with underlying history of diabetes mellitus and also a history left heel osteomyelitis for the patient has completed antibiotic therapy patient has shown overall improvement in almost healing of the left heel wound now with wound to the left big toe has some superficial solution to the left foot concerning for diabetic foot wound and secondary cellulitis will need to call for the resistant gram-positive as well as gram-negative pathogen as the patient has previously grown MRSA and Pseudomonas 2--local culture has been obtained which has been negative so far 3-patient is status post extensive vascular procedure to the left lower extremity and the patient has been cleared for discharge by vascular surgery per discussion with the admitting team with a culture negative for resistant pathogen we will consider short course of oral Augmentin and doxycycline on discharge however the patient is high risk of amputation of the left second toe because of necrosis this was explained to the family Dictation was produced using [employer] software. please excuse any grammatical, word or spelling errors. Time with Patient: Less than 30
[2024-04-05 16:26] LABS: Glucose,Whole Blood 178 mg/dL (70-110)
--- NOTE | 2024-04-05 16:39 | P.DS ---
Providers Date of admission: 03/27/24 17:42 Expected date of discharge: 04/05/24 Attending physician: José Luis Parks Consults: 03/26/24 18:35 Consult Physician Urgent Consulting Provider: Candido Fairbanks Consult Reason/Comments: cellulitis Do you want consulting provider notified?: Yes 03/27/24 10:44 Consult Physician Urgent Consulting Provider: Pricila Sutton Consult Reason/Comments: foot abscess Do you want consulting provider notified?: Yes 03/29/24 10:27 Consult Physician Urgent Consulting Provider: Yocasta Simpson Consult Reason/Comments: Surgery Clearance Do you want consulting provider notified?: Yes 04/04/24 05:08 Consult Physician Urgent Consulting Provider: Uriel Bowen Consult Reason/Comments: Blood in urine after sutton initiation; hgb drop 9.6 to 7.9 Do you want consulting provider notified?: Yes Primary care physician: [facility] Course: Chief Complaint: Left foot infection This is a 73-year-old patient, follows Dr. Bell. Patient was seen by me in the ER. Chronic stable medical condition include CAD, diabetes, GERD, hypertension, hyperlipidemia, neuropathy. CAD with bypass and stent. PAD. Depression panic disorder. Patient's sister is his legal guardian: Radha Patient presents to the ER with left foot infection. He has had different wounds and follows up with the wound care center by Dr. Fiore. He was treated for a left heel wound. Also has had a great toe wound. Patient has been having increasing pain in the left bone. Apparently drainage from the left foot. Somewhat tender. Patient's sister and daughter at the bedside. Appetite is fair. March 27, 2024: Admitted with left foot infection deep tissue/abscess. Spoke with Dr. Pascal from vascular. He will be going out of town. Will consult Dr. Sutton from vascular. ID following. Oral intake good. Patient diabetes appears to be brittle. Follow March 28, 2024: Spoke to patient's sister German yesterday. She did confirm that she is a legal guardian takes all decisions for the patient. I did convey this to Dr. Sutton from vascular. Patient's sister was okay with proceeding with surgical intervention including amputation if so felt by Dr. Sutton. This morning MARGE Jj informed me that doctors for reevaluation patient was always a standing and able to decline surgery. They placed ethics consult for the same. I did speak to the hospital labor and employment paralegal Mrs. Frost, to assist in the situation. I spoke to the patient and explained to him the reason surgery is offering operation because it is felt antibiotics would not really help. Patient was initially irritated but then said he will proceed for surgery. I did communicate this to Анна TRAVELER CHANGER. Meantime patient to continue with antibiotics. urgency of surgery is to be determined by Dr. Sutton. Await further input. March 29: Patient underwent CT angiogram lower extremity. Discussed with Dr. Sutton. Plan for surgical intervention likely bypass on Monday. Cardiology clearance requested. I did try to reach patient's sister on the phone. This morning- Unsuccessful. Did talk to the patient.-He is agreeable to proceed with bypass. Tentatively he is being boarded for next Monday. I am being covered by [facility] starting tomorrow. Tried reaching the sister again at about 4:20 PM.- Unable to get through 03/30/2024 Patient is seen in follow-up this morning currently laying in bed and lower extremities skilled nursing hanging off the bed. Patient appears to be slightly confused although this is baseline and patient is able to have conversation. Multiple consultations following including cardiology and vascular surgery. Patient awaiting to undergo stress test on Monday with cardiology for clearance for possible tentative left femoral endarterectomy and femoral to tibial bypass with CryoVein that is scheduled on Monday if medically cleared and cardiology clears. Attempting to contact family to confirm consent. Patient continues on antibiotics with infectious disease following with concerns of left lower extremity cellulitis. Discussion is also being had about possible BKA. Patient is currently afebrile with no reports of chest pain or shortness of breath. Patient reports to tolerating diet with no reported nausea or vomiting. Blood sugars are uncontrolled and will adjust medications accordingly and recommend to continue monitoring Accu-Cheks ACHS as well as 2 AM as needed 03/31/2024 Patient is evaluated in follow up today. He is resting in bed. Reporting some congestion and shortness of breath did receive a dose of IV lasix yesterday. He is on room air. Lungs are clear. His chest xray shows interstitial lung disease with no acute pulmonary process. Sodium is 136, BUN 52, creatinine 1.63. He will be going for stress test tomorrow. Possible amputation next week of the left foot. His cultures are currently final and normal. Remains on antibiotics. 04/01/2024 Patient evaluated in follow up. Resting in bed. Having pain to the left foot. He is receiving norco and dilaudid for breakthrough pain. He is not having any shortness of breath today. Patient had breakfast stress test has been resche duled He will undergo left lower extremity fem-tib bypass and femoral endarectomy when cardiology has cleared the patient. He remains on IV daptomycin and IV cefepime. 04/02/2024 Patient scheduled to under chemical stress test today findings of a large fixed defect involving the entire inferolateral aspect of the left ventricle that may represent an old infarct. Unable to exclude a small area of inducible ischemia along the mid to apical anteroseptal wall. LV function 48%. April 03, 2024: I saw the patient this morning. Patient due to go down for surgery later today. NPO. Some pain in the infected leg. Patient states he is ready for surgery. April 04, 2024: Yesterday patient underwent left femoral endarterectomy and patch angioplasty left femoral to distal popliteal artery bypass with CryoVein. EBL 150 cc. Postprocedure with Sutton catheter patient has significant hematuria. Urology was consulted. This morning hematuria is lightened up. Patient tired. Eating some. Gangrenous changes to left foot big toe hemoglobin did drop to 7.9. Because of postop drop in hemoglobin Dr. Sutton has ordered a unit of blood. April 05: Sutton catheter in place. Blood greatly improved. Follow-up with urology outpatient. Cleared by surgery and ID. Consult ID. Patient being discharged on Augmentin and doxycycline for 10 days. Wound care per Dr. Sutton's team. Dr. Sutton in 2 weeks. Follow-up with ID in 2 weeks. And follow-up wound care center. Patient doing well. Will add Xarelto 2.5 mg twice daily. Prevena wound VAC in place Discussion and discharge planning more than 35 minutes Social history: Former smoker. Patient's sister denies a legal guardian Physical examination: VITAL SIGNS: 98.4, 82, 16, 129 x 62, 95% GENERAL: Reclining in bed, tired EYES: Pupils equal. Conjunctiva cindy l. HEENT: External appearance of nose and ears normal, oral cavity grossly normal. NECK: JVD not raised; masses not palpable. HEART: First and second heart sounds are normal; no edema. LUNGS: Respiratory rate normal; decreased breath sounds. ABDOMEN: Soft, nontender, liver spleen not palpable, no masses palpable. PSYCH: Rather tired. Somewhat reluctant to answer questions will answer yes and no MUSCULOSKELETAL:No Clubbing/cyanosis;muscles-grossly intact. Left foot is swollen. Some wounds including the dorsum. Tender. Left big toe some gangrene changes NEUROLOGICAL: Stuttering speech. INVESTIGATIONS, reviewed in the clinical context: April 04: White count 8.1 hemoglobin 7.9 platelets 289 April 03: White count 6.5 hemoglobin 9.6 platelets 304 sodium 135 potassium 4.8 BUN 65 creatinine 1.74 March 26, 2024: White count 7.7 hemoglobin 9.5 platelets 448 sodium 135 potassium 5.8 BUN 67 creatinine 1.8 EKG tracing personally reviewed by me-normal sinus rhythm. Rate 81 Left foot x-ray: Focal areas of osteopenia subtle periostitis at the posterior calcaneus. Soft tissue swelling around the great toe. Previous labs: Creatinine 1.44 on February 15 Assessment plan: -Suspect abscess of the left foot and possible soft tissue deep infection. Foot is rather swollen and tender and areas of drainage. Patient has known PAD and also underlying diabetes. Previous cultures that showed growing MRSA and Pseudomonas.: Improving Wound cultures: Polymicrobial CT angiogram shows significant lower extremity disease. April 03, 2024:left femoral endarterectomy and patch angioplasty left femoral to distal popliteal artery bypass with CryoVein. Cardiology clearance r given. Lexiscan stress test: Large fixed defect involving the entire inferolateral aspect of the left ventricle. Unable to exclude inducible ischemia. EF 48%.-Higher perioperative risk ID discharge on Augmentin and doxycycline-10 days Prevena wound VAC in place -Hyperlipidemia Lipitor 80 mg nightly -Diabetes mellitus type 2, uncontrolled with hyperglycemia. Brittle Follow Accu-Cheks with sliding scale Jardiance 25 mg a day Trulicity. Levemir. 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 -BPH Flomax 0.4 mg nightly -GERD Pepcid 20 mg a day -Hypothyroid Synthroid 150 mcg a day -Peripheral arterial disease Lipitor -Cognitive impairment -CAD with a prior history of coronary bypass and stent Lopressor 50 mg twice daily -Chronic wound to the left foot follows at the wound care center -Full code -Legal guardian, Sister Radha: Legal guardian makes all decisions for the patient. Disposition: [facility] Past Medical History Past Medical History: Coronary Artery Disease (CAD), Diabetes Mellitus, VALERI D/Reflux, Hyperlipidemia, Hypertension, Myocardial Infarction ([place]), Thyroid Disorder Additional Past Medical History / Comment(s): neuropathy, diabetic coma in 2000 and pt's sister has had legal guardianship since. Last Myocardial Infarction Date:: unknown History of Any Multi-Drug Resistant Organisms: ESBL, MRSA, MRSA Date of last positivie culture/infection: 11/23/23-MRSA; 09/25/23 ESBL MDRO Source:: Left Heel-MRSA; Blood-ESBL Past Surgical History: Appendectomy, Coronary Bypass/CABG, Heart Catheterization With Stent Additional Past Surgical History / Comment(s): Sister relays, "He had peripheral artery surgery too." Past Anesthesia/Blood Transfusion Reactions: No Reported Reaction Date of Last Stent Placement:: unknown Past Psychological History: Depression, Panic Disorder Smoking Status: Former smoker Past Alcohol Use History: Daily Past Drug Use History: Marijuana Plan - Discharge Summary New Discharge Prescriptions: New Amoxic-Pot Clav 875-125Mg [Augmentin 875-125] 1 tab PO Q12HR 10 Days #20 tab Doxycycline Hyclate 100 mg PO BID 10 Days #20 tab Collagenase [Santyl Ointment] 1 applic TOPICAL DAILY each Lactulose [Cephulac] 20 gm PO DAILY PRN ml PRN Reason: Constipation Continue Isosorbide Mononitrate ER [Imdur] 30 mg PO DAILY@0800 Pantoprazole Sodium [Protonix] 40 mg PO DAILY@0600 Ferrous Sulfate [Iron (65 MG Elemental)] 325 mg PO DAILY@1700 Aspirin [[place] Aspirin EC] 81 mg PO DAILY@1700 Ammonium Lactate Cream [Lac-Hydrin 12% Cream] 1 applic TOPICAL BID PRN PRN Reason: Dry Skin Empagliflozin [Jardiance] 25 mg PO DAILY@0800 Escitalopram [Lexapro] 10 mg PO DAILY@0800 bisacodyL [Dulcolax] 10 mg RECTAL DAILY PRN PRN Reason: Constipation Magnesium Hydroxide [Milk of Magnesia Concentrate] 7,200 mg PO Q48H PRN PRN Reason: Constipation Famotidine [Pepcid] 20 mg PO DAILY@0800 Tamsulosin HCl [Flomax] 0.4 mg PO HS@2100 Ondansetron [Zofran] 4 mg PO Q8H PRN PRN Reason: Nausea And Vomiting Folic Acid 1 mg PO DAILY@1200 tab Nystatin 100,000 Unit/gm Powd [Mycostatin Powder] 1 applic TOPICAL TID each Thiamine [Vitamin B-1] 100 mg PO BID-W/MEALS tab Multivitamins, Thera [Multivitamin (formulary)] 1 tab PO DAILY@1200 Acetaminophen [Tylenol 8 Hour] 650 mg PO Q8H PRN PRN Reason: general discomfort INSULIN ASPART (NovoLOG) [NovoLOG (formulary)] See Protocol SQ ACHS Atorvastatin [Lipitor] 80 mg PO HS@2100 Na Phos,M-B/Na Phos,Di-Ba [Fleet Adult] 133 ml RECTAL DAILY PRN PRN Reason: Constipation Metoprolol Tartrate [Lopressor] 50 mg PO BID@0800,1700 Liquacel 30 ml PO BID@0800,1700 Glucerna Shake 237 ml PO AC-SUPPER@1500 Levothyroxine Sodium [Synthroid] 150 mcg PO DAILY@0600 Cholecalciferol [Vitamin D3 (25 Mcg = 1000 Iu)] 25 mcg PO DAILY@0800 amLODIPine [Norvasc] 5 mg PO BID@0800,2000 Dulaglutide [Trulicity] 1.5 mg SQ TH Benzonatate [Tessalon Perles] 100 mg PO TID PRN cap PRN Reason: Cough Ipratropium-Albuterol Nebulize [Duoneb 0.5 mg-3 mg/3 ml Soln] 3 ml INHALATION RT-Q6H Insulin Detemir (Levemir) [Levemir] 13 unit SQ BID@0700,2100 each INSULIN ASPART (NovoLOG) [NovoLOG (formulary)] 8 unit SQ TID@0800,1200,1700 Petrolat,White/Javi/8-Hydroxyqu [Bag [place]] 1 applic TOPICAL TUTHSA HYDROcodone/APAP 5-325MG [[place] 5-325] 1 tab PO Q4HR PRN #18 tab PRN Reason: Pain ALPRAZolam [Xanax] 0.25 mg PO DAILY PRN #3 tab PRN Reason: Anxiety Changed Gabapentin [Neurontin] 400 mg PO HS@2100 #3 cap Discontinued clindamycin HCL [Cleocin HCl] 300 mg PO BID@799,2099 Enoxaparin [Lovenox] 40 mg SQ DAILY@0800 Discharge Medication List Aspirin [[place] Aspirin EC] 81 mg PO DAILY@169903/13/19 [History] Ferrous Sulfate [Iron (65 MG Elemental)] 325 mg PO DAILY@169903/13/19 [History] Isosorbide Mononitrate ER [Imdur] 30 mg PO DAILY@0803/13/19 [History] Pantoprazole Sodium [Protonix] 40 mg PO DAILY@59903/13/19 [History] Ammonium Lactate Cream [Lac-Hydrin 12% Cream] 1 applic TOPICAL BID PRN 04/13/23 [History] Atorvastatin [Lipitor] 80 mg PO HS@209904/13/23 [History] Empagliflozin [Jardiance] 25 mg PO DAILY@79904/13/23 [History] Escitalopram [Lexapro] 10 mg PO DAILY@0804/13/23 [History] Glucerna Shake 237 ml PO AC-SUPPER@1500 09/24/23 [History] Liquacel 30 ml PO BID@0800,169909/24/23 [History] Magnesium Hydroxide [Milk of Magnesia Concentrate] 7,200 mg PO Q48H PRN 09/24/23 [History] Metoprolol Tartrate [Lopressor] 50 mg PO BID@0800,0 09/24/23 [History] Na Phos,M-B/Na Phos,Di-Ba [Fleet Adult] 133 ml RECTAL DAILY PRN 09/24/23 [History] bisacodyL [Dulcolax] 10 mg RECTAL DAILY PRN 09/24/23 [History] Cholecalciferol [Vitamin D3 (25 Mcg = 1000 Iu)] 25 mcg PO DAILY@0800 12/19/23 [History] Famotidine [Pepcid] 20 mg PO DAILY@0800 12/19/23 [History] Levothyroxine Sodium [Synthroid] 150 mcg PO DAILY@0600 12/19/23 [History] Tamsulosin HCl [Flomax] 0.4 mg PO HS@2100 12/19/23 [History] Dulaglutide [Trulicity] 1.5 mg SQ TH 01/13/24 [History] Ondansetron [Zofran] 4 mg PO Q8H PRN 01/13/24 [History] amLODIPine [Norvasc] 5 mg PO BID@0800,199901/13/24 [History] Benzonatate [Tessalon Perles] 100 mg PO TID PRN cap 01/23/24 [Rx] Folic Acid 1 mg PO DAILY@1200 tab 01/23/24 [Rx] Nystatin 100,000 Unit/gm Powd [Mycostatin Powder] 1 applic TOPICAL TID each 01/23/24 [Rx] Thiamine [Vitamin B-1] 100 mg PO BID-W/MEALS tab 01/23/24 [Rx] Acetaminophen [Tylenol 8 Hour] 650 mg PO Q8H PRN 02/16/24 [History] Insulin Detemir (Levemir) [Levemir] 13 unit SQ BID@0700,2100 each 02/16/24 [Rx] Ipratropium-Albuterol Nebulize [Duoneb 0.5 mg-3 mg/3 ml Soln] 3 ml INHALATION RT-Q6H 02/16/24 [History] Multivitamins, Thera [Multivitamin (formulary)] 1 tab PO DAILY@1200 02/16/24 [History] INSULIN ASPART (NovoLOG) [NovoLOG (formulary)] 8 unit SQ TID@0800,1200,1700 03/26/24 [History] INSULIN ASPART (NovoLOG) [NovoLOG (formulary)] See Protocol SQ ACHS 03/26/24 [History] Petrolat,White/Javi/8-Hydroxyqu [Bag [place]] 1 applic TOPICAL TUTHSA 03/26/24 [History] ALPRAZolam [Xanax] 0.25 mg PO DAILY PRN #3 tab 04/05/24 [Rx] Amoxic-Pot Clav 875-125Mg [Augmentin 875-125] 1 tab PO Q12HR 10 Days #20 tab 04/05/24 [Rx] Collagenase [Santyl Ointment] 1 applic TOPICAL DAILY each 04/05/24 [Rx] Doxycycline Hyclate 100 mg PO BID 10 Days #20 tab 04/05/24 [Rx] Gabapentin [Neurontin] 400 mg PO HS@2100 #3 cap 04/05/24 [Rx] HYDROcodone/APAP 5-325MG [[place] 5-325] 1 tab PO Q4HR PRN #18 tab 04/05/24 [Rx] Lactulose [Cephulac] 20 gm PO DAILY PRN ml 04/05/24 [Rx] Follow up Appointment(s)/Referral(s): Markel Sena MD [STAFF PHYSICIAN] - 2 Weeks Pricila Sutton DO [STAFF PHYSICIAN] - 2 Weeks Wale Mcconnell [NON-STAFF] - 1-2 days [facility] [NON-STAFF] - 1 Week Candido Fairbanks MD [STAFF PHYSICIAN] - 2 Weeks Activity/Diet/Wound Care/Special Instructions: Activity as tolerated. Patient may sponge bathe until Prevena wound vacs have been removed. Then patient may shower but no tub bathing or soaking. Monitor incision sites for infection including redness, drainage, and fever greater than 100.4. No heavy lifting or strenuous activity no stair climbing until cleared by surgeon. Keep Prevena dressing in place until 04/10/2024 then may remove and throw away. Apply santyl to left great toe daily. Continue with local wound care per recommendations from wound clinic
[2024-04-05 19:42] VITALS: BP 137/57; PULSE 69
[2024-04-05 20:00] LABS: Glucose,Whole Blood 148 mg/dL (70-110)
== END 2024-04-05 20:43 | DRG 252 ==
LOC: EC 14:55 → SUPCPDRO 14:55 → 5NMEDONC 17:09 → OBSVTOIN 03-27 17:42 → 3SCARD 04-03 20:26
PROVIDERS: ADMIT Hospitalist; ATTEND Hospitalist
PROC: 041L0JJ Bypass Left Femoral Artery to Left Femoral Artery with Synthetic Substitute, Open Approach (ICD-10-PCS; 2024-04-03)
PROC: 041L0KJ Bypass Left Femoral Artery to Left Femoral Artery with Nonautologous Tissue Substitute, Open Approach (ICD-10-PCS; 2024-04-03)
PROC: 04CL0ZZ Extirpation of Matter from Left Femoral Artery, Open Approach (ICD-10-PCS; principal; 2024-04-03 07:30)
PROC: 30233N1 Transfusion of Nonautologous Red Blood Cells into Peripheral Vein, Percutaneous Approach (ICD-10-PCS; 2024-04-04)
DX: E11.51 Type 2 diabetes mellitus with diabetic peripheral angiopathy without gangrene (principal); L89.623 Pressure ulcer of left heel, stage 3; N17.0 Acute kidney failure with tubular necrosis; T83.83XA Hemorrhage due to genitourinary prosthetic devices, implants and grafts, initial encounter; M86.8X7 Other osteomyelitis, ankle and foot; L97.525 Non-pressure chronic ulcer of other part of left foot with muscle involvement without evidence of necrosis; L97.222 Non-pressure chronic ulcer of left calf with fat layer exposed; J84.9 Interstitial pulmonary disease, unspecified; L97.919 Non-pressure chronic ulcer of unspecified part of right lower leg with unspecified severity; D62 Acute posthemorrhagic anemia; L03.116 Cellulitis of left lower limb; E87.1 Hypo-osmolality and hyponatremia; L02.612 Cutaneous abscess of left foot; E11.42 Type 2 diabetes mellitus with diabetic polyneuropathy; E11.22 Type 2 diabetes mellitus with diabetic chronic kidney disease; E11.621 Type 2 diabetes mellitus with foot ulcer; I70.245 Atherosclerosis of native arteries of left leg with ulceration of other part of foot; Z79.4 Long term (current) use of insulin; E11.649 Type 2 diabetes mellitus with hypoglycemia without coma; L97.522 Non-pressure chronic ulcer of other part of left foot with fat layer exposed; E11.622 Type 2 diabetes mellitus with other skin ulcer; E11.628 Type 2 diabetes mellitus with other skin complications; E11.69 Type 2 diabetes mellitus with other specified complication; N18.30 Chronic kidney disease, stage 3 unspecified; E11.65 Type 2 diabetes mellitus with hyperglycemia; J44.9 Chronic obstructive pulmonary disease, unspecified; Z79.891 Long term (current) use of opiate analgesic; I12.9 Hypertensive chronic kidney disease with stage 1 through stage 4 chronic kidney disease, or unspecified chronic kidney disease; E78.5 Hyperlipidemia, unspecified; F32.A Depression, unspecified; E03.9 Hypothyroidism, unspecified; I08.1 Rheumatic disorders of both mitral and tricuspid valves; S80.822A Blister (nonthermal), left lower leg, initial encounter; E87.5 Hyperkalemia; M85.872 Other specified disorders of bone density and structure, left ankle and foot; F41.0 Panic disorder [episodic paroxysmal anxiety]; R31.0 Gross hematuria; Y73.1 Therapeutic (nonsurgical) and rehabilitative gastroenterology and urology devices associated with adverse incidents; N40.0 Benign prostatic hyperplasia without lower urinary tract symptoms; R41.89 Other symptoms and signs involving cognitive functions and awareness; I25.10 Atherosclerotic heart disease of native coronary artery without angina pectoris; K21.9 Gastro-esophageal reflux disease without esophagitis; Z79.890 Hormone replacement therapy; Z95.1 Presence of aortocoronary bypass graft; I25.2 Old myocardial infarction; Z87.891 Personal history of nicotine dependence; Z86.14 Personal history of Methicillin resistant Staphylococcus aureus infection; Z86.19 Personal history of other infectious and parasitic diseases; Z79.82 Long term (current) use of aspirin; Z79.84 Long term (current) use of oral hypoglycemic drugs; Z79.899 Other long term (current) drug therapy; Z79.85 Long-term (current) use of injectable non-insulin antidiabetic drugs; Z79.51 Long term (current) use of inhaled steroids; Z86.73 Personal history of transient ischemic attack (TIA), and cerebral infarction without residual deficits; Z82.49 Family history of ischemic heart disease and other diseases of the circulatory system; Z95.5 Presence of coronary angioplasty implant and graft; Z87.39 Personal history of other diseases of the musculoskeletal system and connective tissue; Z91.199 Patient's noncompliance with other medical treatment and regimen due to unspecified reason
CPT/HCPCS: 36415; 36430; 71046; 75635; 78452; 80048; 80053; 82009; 83036; 83605; 83735; 85025; 85027; 86850; 86900; 86901; 86920; 87040; 87070; 87075; 87086; 87205; 88108; 88304; 88311; 93005; 93017; 93306; 94640; 96361; 96365; 96375; 99285

== ENCOUNTER → 2024-05-17 | Outpatient (CLI) | payer MEDICARE, BC, OTHER ==
--- NOTE | 2024-05-17 16:00 | US ---
EXAMINATION TYPE: US kidneys/renal and bladder DATE OF EXAM: 05/17/2024 COMPARISON: US 2023 CLINICAL INDICATION: Male, 73 years old with history of N13.30 Unspecified hydronephrosis; EXAM MEASUREMENTS: Right Kidney: 9.6 x 5.0 x 5.8 cm Left Kidney: 11.0 x 5.5 x 4.9 cm Right Kidney: wnl Left Kidney: limited visualization due to rib shadowing and overlying bowel gas Bladder: irregular thickened wall, debris, sutton catheter Bilateral Jets seen: yes There is no evidence for hydronephrosis at this point in time. No nephrolithiasis is seen. No lamar s are identified. The urinary bladder is anechoic. Bilateral ureteral jets are seen. IMPRESSION: 1. No right hydronephrosis. 2. Limited evaluation of the left kidney due to ribs. 3. Thickened urinary bladder wall with Sutton catheter in place correlate with urinalysis for cystiti s.
== END | disposition home or self-care (01) ==
LOC: RADUSWWP 14:27
PROVIDERS: ATTEND Urology
DX: N13.30 Unspecified hydronephrosis (principal)
CPT/HCPCS: 76770

== ENCOUNTER → 2024-12-24 | Outpatient (CLI) | payer MEDICARE, BC | END | disposition home or self-care (01) | LOC: LABWHC1 15:26 | PROVIDERS: ATTEND Internal Medicine Cardiovascular Disease | DX: I50.9 Heart failure, unspecified (principal) | CPT/HCPCS: 36415; 83880 ==

== ENCOUNTER 2024-12-27 12:02 | Inpatient (IN) | payer MEDICARE, BC, OTHER ==
--- NOTE | 2024-12-27 12:24 | ED ---
General Adult HPI - General Chief complaint: Recheck/Abnormal Lab/Rx Stated complaint: Gangrene left large toe Time Seen by Provider: 12/27/24 12:09 Source: patient, RN notes reviewed Mode of arrival: ambulatory Limitations: no limitations, physical limitation - History of Present Illness Initial comments: 74-year-old male with a past medical history of diabetes presents to the emergency department for evaluation of left first toe duration. The patient states that this has been going on for a year. He notes that it has gotten worse in his toe but now seems like it is going to "fall off "he follows with Dr. Romeo for this. He was told that it would fall off on its own but has not yet. Denies fever, chills. - Related Data Home Medications Medication Instructions Recorded Confirmed Aspirin [[place] Aspirin EC] 81 mg PO DAILY@1700 03/13/19 12/27/24 Ferrous Sulfate [Iron (65 MG 325 mg PO TID@08,12,17 03/13/19 12/27/24 Elemental)] Isosorbide Mononitrate ER [Imdur] 30 mg PO DAILY@0800 03/13/19 12/27/24 Pantoprazole Sodium [Protonix] 40 mg PO DAILY@0803/13/19 12/27/24 Ammonium Lactate Cream [Lac-Hydrin 1 applic TOPICAL BID PRN 04/13/23 12/27/24 12% Cream] Escitalopram [Lexapro] 10 mg PO DAILY@0800 04/13/23 12/27/24 Glucerna Shake 1 can PO DAILY PRN 09/24/23 12/27/24 Liquacel 30 ml PO BID@0800,1700 09/24/23 12/27/24 Magnesium Hydroxide [Milk of 7,200 mg PO Q48H PRN 09/24/23 12/27/24 Magnesia Concentrate] Metoprolol Tartrate [Lopressor] 50 mg PO BID@0800,1700 09/24/23 12/27/24 bisacodyL [Dulcolax] 10 mg RECTAL DAILY PRN 09/24/23 12/27/24 Cholecalciferol [Vitamin D3 (25 25 mcg PO DAILY@0812/19/23 12/27/24 Mcg = 1000 Iu)] Famotidine [Pepcid] 20 mg PO DAILY@0800 12/19/23 12/27/24 Levothyroxine Sodium [Synthroid] 150 mcg PO DAILY@0612/19/23 12/27/24 Tamsulosin HCl [Flomax] 0.4 mg PO HS@209912/19/23 12/27/24 Ondansetron [Zofran] 4 mg PO Q8H PRN 01/13/24 12/27/24 amLODIPine [Norvasc] 5 mg PO BID@08,199901/13/24 12/27/24 Acetaminophen [Tylenol 8 Hour] 650 mg PO Q6H PRN 02/16/24 12/27/24 Ipratropium-Albuterol Nebulize 3 ml INHALATION RT-Q6H PRN 02/16/24 12/27/24 [Duoneb 0.5 mg-3 mg/3 ml Soln] Multivitamins, Thera [Multivitamin 1 tab PO DAILY@1200 02/16/24 12/27/24 (formulary)] INSULIN ASPART (NovoLOG) [NovoLOG 5 unit SQ W/LUNCH@1100 03/26/24 12/27/24 (formulary)] INSULIN ASPART (NovoLOG) [NovoLOG See Protocol SQ 03/26/24 12/27/24 (formulary)] ACHS@07,11,1630,0 Petrolat,White/Javi/8-Hydroxyqu 1 applic TOPICAL TUTHSA 03/26/24 12/27/24 [Bag [place]] Atorvastatin [Lipitor] 20 mg PO HS@209912/27/24 12/27/24 Dextrose Chew [Glucose Chew Tab] 16 gm PO DAILY PRN 12/27/24 12/27/24 Dulaglutide [Trulicity] 4.5 mg SQ FR@0812/27/24 12/27/24 HYDROcodone/APAP 5-325MG [[place] 1 tab PO TID@06,14,12/27/24 12/27/24 5-325] INSULIN ASPART (NovoLOG) [NovoLOG 8 unit SQ BID-W/MEALS@07,1630 12/27/24 12/27/24 (formulary)] Insulin Glargine,Hum.rec.anlog 13 units SQ BID@0800,209912/27/24 12/27/24 [Lantus Solostar Pen] [place] Packet 1 packet PO BID@0800,1700 12/27/24 12/27/24 Petrolat,White/Javi/8-Hydroxyqu 1 applic TOPICAL MOWEFR 12/27/24 12/27/24 [Bag [place]] Phytoplex Z-Guard External Paste 1 applic TOPICAL DAILY 12/27/24 12/27/24 57-17% Sennosides [Senokot] 8.6 mg PO BID@0800,1700 12/27/24 12/27/24 Thiamine [Vitamin B-1] 100 mg PO BID@0800,1700 12/27/24 12/27/24 Previous Rx's Medication Instructions Recorded Folic Acid 1 mg PO DAILY@1200 tab 01/23/24 Nystatin 100,000 Unit/gm Powd 1 applic TOPICAL TID each 01/23/24 [Mycostatin Powder] Gabapentin [Neurontin] 400 mg PO HS@2100 #3 cap 04/05/24 Lactulose [Cephulac] 20 gm PO DAILY PRN ml 04/05/24 Allergies Allergy/AdvReac Type Severity Reaction Status Date / Time No Known Allergies Allergy Verified 12/27/24 13:53 Review of Systems ROS Statement: Those systems with pertinent positive or pertinent negative responses have been documented in the HPI. ROS Other: All systems not noted in ROS Statement are negative. Past Medical History Past Medical History: Coronary Artery Disease (CAD), Diabetes Mellitus, GERD/Re flux, Hyperlipidemia, Hypertension, Myocardial Infarction ([place]), Thyroid Disorder Additional Past Medical History / Comment(s): neuropathy, diabetic coma in 2000 and pt's sister has had legal guardianship since. Last Myocardial Infarction Date:: unknown History of Any Multi-Drug Resistant Organisms: None Reported Date of last positivie culture/infection: 11/23/23-MRSA; 09/25/23 ESBL MDRO Source:: Left Heel-MRSA; Blood-ESBL Past Surgical History: Appendectomy, Coronary Bypass/CABG, Heart Catheterization With Stent Additional Past Surgical History / Comment(s): Sister relays, "He had peripheral artery surgery too." Past Anesthesia/Blood Transfusion Reactions: No Reported Reaction Date of Last Stent Placement:: unknown Past Psychological History: Depression, Panic Disorder Smoking Status: Former smoker Past Alcohol Use History: Daily Past Drug Use History: Marijuana - Past Family History Father Family Medical History: Congestive Heart Failure (CHF) Mother Additional Family Medical History / Comment(s): of old age. General Exam Limitations: physical limitation General appearance: alert, in no apparent distress Head exam: Present: atraumatic, normocephalic, normal inspection ENT exam: Present: normal exam, mucous membranes moist Respiratory exam: Present: normal lung sounds bilaterally. Absent: respiratory distress, wheezes, rales, rhonchi, stridor Cardiovascular Exam: Present: regular rate, normal rhythm, normal heart sounds. Absent: systolic murmur, diastolic murmur, rubs, gallop, clicks Neurological exam: Present: alert, oriented X3 Psychiatric exam: Present: normal affect, normal mood Skin exam: Present: other (Gangrenous left first toe with open wound and purulent drainage). Absent: intact, normal color Course Vital Signs 12/27/24 12/27/24 12/27/24 12:04 13:51 15:19 Temperature 97.6 F 97.4 F L Pulse Rate 68 102 H 66 Respiratory 20 20 16 Rate Blood Pressure 144/68 145/74 149/73 O2 Sat by Pulse 96 97 93 L Oximetry 12/27/24 15:38 Temperature 97.4 F L Pulse Rate 66 Respiratory 16 Rate Blood Pressure 149/73 O2 Sat by Pulse 93 L Oximetry Medical Decision Making - Medical Decision Making Was pt. sent in by a medical professional or institution ([facility], [employer], urgent care, hospital, or chcf...) When possible be specific @ -No Did you speak to anyone other than the patient for history (EMS, parent, family, police, friend...)? What history was obtained from this source @ -No Did you review nursing and triage notes (agree or disagree)? Why? @ -I reviewed and agree with nursing and triage notes Were old charts reviewed (outside hosp., previous admission, EMS record, old EKG, old radiological studies, urgent care reports/EKG's, ch[facility] records)? Report findings @ -No old charts were reviewed Differential Diagnosis (chest pain, altered mental status, abdominal pain women, abdominal pain men, vaginal bleeding, weakness, fever, dyspnea, syncope, headache, dizziness, GI bleed, back pain, seizure, CVA, palpatations, mental health, musculoskeletal)? @ -Differential Musculoskeletal Muscular strain, contusion, ligament sprain, fracture, arthritis, septic arthritis, bursitis, cellulitis, muscle spasm, nerve compression, DVT, arterial occlusion, herpes zoster, electrolyte abnormality, tumor.... This is not meant to be in all inclusive list EKG interpreted by me (3pts min.). @ -None X-rays interpreted by me (1pt min.). @ -X-ray of the left toes shows acute osteomyelitis of the first digit CT interpreted by me (1pt min.). @ -None done U/S interpreted by me (1pt. min.). @ -None done What testing was considered but not performed or refused? (CT, X-rays, U/S, labs)? Why? @ -None What meds were considered but not given or refused? Why? @ -None Did you discuss the management of the patient with other professionals (professionals i.e. , PA, SLIDER ASSEMBLER, lab, RT, psych nurse, dialysis social worker, broke beater operator, teacher, certification officer, case resolution specialist)? Give summary @ -Case discussed with [facility] was accepting of the admission Was smoking cessation discussed for >3mins.? @ -No Was critical care preformed (if so, how long)? @ -No Were there social determinants of health that impacted care today? How? (Homelessness, low income, unemployed, alcoholism, drug addiction, transportation, low edu. Level, literacy, decrease access to med. care, usp, rehab)? @ -No Was there de-escalation of care discussed even if they declined (Discuss DNR or withdrawal of care, Hospice)? DNR status @ -No What co-morbidities impacted this encounter? (DM, HTN, Smoking, COPD, CAD, Cancer, CVA, ARF, Chemo, Hep., AIDS, mental health diagnosis, sleep apnea, morbid obesity)? @ -Diabetes Was patient admitted / discharged? Hospital course, mention meds given and ro tetlin, prescriptions, significant lab abnormalities, going to OR and other pertinent info. @ -Admitted. Patient presented the emergency department for evaluation of left toe problem.Laboratory studies were obtained revealing no significant leukocytosis, hemoglobin 8.3 which is stable for the patient. Normal coagulation studies. CMP shows mild hyperkalemia he was given mild fluid hydration for this. BUN/creatinine elevated with the patient presents stable for him. X-ray of the toes shows acute osteomyelitis of the left first digit. Patient was started on vancomycin and Zosyn. Patient will be admitted to the hospital. Case discussed with [facility] was accepting of the admission. Infectious d isease consulted. He is understanding of admission plan. Case discussed with Dr. Lewis Undiagnosed new problem with uncertain prognosis? @ -No Drug Therapy requiring intensive monitoring for toxicity (Heparin, Nitro, Insulin, Cardizem)? @ -No Were any procedures done? @ -No Diagnosis/symptom? @ -Osteomyelitis Acute, or Chronic, or Acute on Chronic? @ -Acute Uncomplicated (without systemic symptoms) or Complicated (systemic symptoms)? @Complicated Side effects of treatment? @ -No Exacerbation, Progression, or Severe Exacerbation? @ -exacerbation Poses a threat to life or bodily function? How? (Chest pain, [place], [place], pneumonia, PE, COPD, DKA, ARF, appy, cholecystitis, CVA, Diverticulitis, Homicidal, Suicidal, threat to staff... and all critical care pts) @ -No - Lab Data Result diagrams: 12/28/24 04:40 12/28/24 04:40 Lab Results 12/27/24 12/27/24 12/27/24 Range/Units 12:42 12:42 12:42 PT 10.5 (10.0-12.5) sec INR 0.9 (<1.2) APTT 22.3 (22.0-30.0) sec Sodium 141 (137-145) mmol/L Potassium 5.2 H (3.5-5.1) mmol/L Chloride 110 H (98-107) mmol/L Carbon Dioxide 19 L (22-30) mmol/L Anion Gap 12 mmol/L BUN 89 H (9-20) mg/dL Creatinine 1.72 H (0.66-1.25) mg/dL Est GFR (CKD-EPI)AfAm 44 (>60 ml/min/1.73 sqM) Est GFR (CKD-EPI)NonAf 38 (>60 ml/min/1.73 sqM) Glucose 122 H (74-99) mg/dL Plasma Lactic Acid [place] 1.0 (0.7-2.0) mmol/L Calcium 8.7 (8.4-10.2) mg/dL Total Bilirubin 0.3 (0.2-1.3) mg/dL AST 20 (17-59) U/L ALT 25 (4-49) U/L Alkaline Phosphatase 102 (38-126) U/L Total Protein 7.7 (6.3-8.2) g/dL Albumin 3.6 (3.5-5.0) g/dL Disposition Clinical Impression: Osteomyelitis of left foot Disposition: ADMITTED IP TO THIS HOSP Condition: Stable Is patient prescribed a controlled substance at d/c from ED?: No
[2024-12-27 13:12] LABS: ALT 25 U/L (4-49); AST 20 U/L (17-59); African American GFR (CKD) 44 (>60 ml/min/1.73 sqM); Albumin 3.6 g/dL (3.5-5.0); Alkaline Phosphatase 102 U/L (38-126); Anion Gap 12 mmol/L; Blood Urea Nitrogen 89 mg/dL (9-20); Calcium 8.7 mg/dL (8.4-10.2); Carbon Dioxide 19 mmol/L (22-30); Chloride 110 mmol/L (98-107); Glucose 122 mg/dL (74-99); Non-African American GFR(CKD) 38 (>60 ml/min/1.73 sqM); Potassium 5.2 mmol/L (3.5-5.1); Sodium 141 mmol/L (137-145); Total Bilirubin 0.3 mg/dL (0.2-1.3); Total Protein 7.7 g/dL (6.3-8.2)
[2024-12-27 13:15] LABS: INR 0.9 (<1.2); Partial Thromboplastin Time 22.3 sec (22.0-30.0); Prothrombin Time 10.5 sec (10.0-12.5)
--- NOTE | 2024-12-27 13:30 | XR ---
EXAMINATION TYPE: XR toes LT DATE OF EXAM: 12/27/2024 COMPARISON: Left foot x-ray March 26, 2024 CLINICAL INDICATION: Male, 74 years old with history of gangrene 1st digit; TECHNIQUE: 3 views left first toe. FINDINGS: Osseous structures remain demineralized. There is now erosive destruction of the mid to dis celestina diaphysis of the first proximal phalanx. There is moderate surrounding soft tissue swelling. Ther e is suspected subcutaneous air extending into the distal toe. IMPRESSION: As above. Acute osteomyelitis is suspected. [facility], , 12/27/2024 1:28 PM
[2024-12-27] MEDS ORDERED: VANCOMYCIN IV PER PHARMACY 1 EACH MISC MISCELLANE PRN (13:46)
[2024-12-27] MEDS: SODIUM CHLORIDE 0.9% 500 ML 500 ML IV ONE (14:17)
[2024-12-27] MEDS: PIPERACILLIN-TAZOBACTAM 3.375 GM in SODIUM CHLORIDE 0.9% 100 ML IVPB STA (14:18)
[2024-12-27 14:55] LABS: Anisocytosis Slight; Basophils # (A) 0.1 k/uL (0-0.2); Basophils % (A) 1 %; Eosinophils # (A) 0.4 k/uL (0-0.7); Eosinophils % (A) 6 %; HCT 29.3 % (39.0-53.0); HGB 8.3 gm/dL (13.0-17.5); Hypochromasia Marked; Lymphocytes # (A) 0.9 k/uL (1.0-4.8); Lymphocytes % (A) 14 %; MCH 26.2 pg (25.0-35.0); MCHC 28.4 g/dL (31.0-37.0); MCV 92.3 fL (80.0-100.0); Mean Platelet Volume 7.2; Monocytes # (A) 0.5 k/uL (0-1.0); Monocytes % (A) 7 %; Neutrophils # (A) 4.4 k/uL (1.3-7.7); Neutrophils % (A) 69 %; Platelet Count 294 k/uL (150-450); RBC 3.18 m/uL (4.30-5.90); RDW 17.1 % (11.5-15.5); WBC 6.3 k/uL (3.8-10.6)
[2024-12-27] MEDS: VANCOMYCIN 1,500 MG in SODIUM CHLORIDE 0.9% 500 ML 500 ML IVPB ONE (15:01)
[2024-12-27] MEDS ORDERED: NALOXONE 0.4 MG/ML 1 ML VIAL IV PRN (15:08)
[2024-12-27 16:02] LABS: Glucose,Whole Blood 107 mg/dL (70-110)
[2024-12-27 18:12] LABS: Appearance,Urine Cloudy (Clear); Bilirubin,Urine Negative (Negative); Blood,Urine Large (Negative); Color,Urine Colorless; Glucose,Urine (UA) 3+ (Negative); Ketones,Urine Negative (Negative); Leukocyte Esterase,Urine Large (Negative); Nitrite,Urine Negative (Negative); PH, Urine 7.5 (5.0-8.0); Protein,Urine 1+ (Negative); RBC,Urine 9 /hpf (0-5); Specific Gravity,Urine 1.011 (1.001-1.035); Squamous Epithelial Cell,Urine <1 /hpf (0-4); Urobilinogen,Urine <2.0 mg/dL (<2.0); WBC,Urine 135 /hpf (0-5)
[2024-12-27 21:11] LABS: Glucose,Whole Blood 257 mg/dL (70-110)
--- NOTE | 2024-12-27 22:18 | P.CONS ---
History of Present Illness - Reason for Consult Consult date: 12/27/24 Osteomyelitis of the toe Requesting physician: Anat Alegre - Chief Complaint Big toe falling off x days - History of Present Illness Patient is a 74-year-old male with a past medical history significant for Coronary Artery Disease (CAD), Diabetes Mellitus, GERD/Reflux, Hyperlipidemia, Hypertension, Myocardial Infarction ([place]), Thyroid Disorder has been dealing with gangrene to the left big toe that has been going on for couple of weeks to months and was told that it will fall off and seem to be have come to this stage IV the patient has been sent to the ER from the [facility] patient had been complaining of pain especially when toe is being touched mostly dull aching to sharp moderate intensity without radiation did have mild foul- smelling drainage from it denies high-grade fever or any chills no chest pain shortness of breath or cough no nausea vomiting no abdominal pain no diarrhea patient on presentation to hospital was afebrile patient was tachycardic but not hypotensive or hypoxic and no need for supplemental oxygen patient did have white count of 6.3 BUN and creatinine has been elevated with a creatinine 1.72 urine has been positive patient did have a 2 x-ray suggestive of osteomyelitis patient did receive a dose of Zosyn in the ER subsequently has been started on vancomycin infectious disease was consulted for further management of antibiotic therapy Review of Systems Positive point and negatives has been mentioned in the HPI, complete review of systems was performed and all other systems are negative Past Medical History Past Medical History: Coronary Artery Disease (CAD), Diabetes Mellitus, GERD/Reflux, Hyperlipidemia, Hypertension, Myocardial Infarction ([place]), Thyroid Disorder Additional Past Medical History / Comment(s): neuropathy, diabetic coma in 2000 and pt's sister has had legal guardianship since. Last Myocardial Infarction Date:: unknown History of Any Multi-Drug Resistant Organisms: None Reported Year Discovered:: 11/23/23-MRSA; 09/25/23 ESBL MDRO Source:: Left Heel-MRSA; Blood-ESBL Past Surgical History: Appendectomy, Coronary Bypass/CABG, Heart Catheterization With Stent Additional Past Surgical History / Comment(s): Sister relays, "He had peripheral artery surgery too." Past Anesthesia/Blood Transfusion Reactions: No Reported Reaction Date of Last Stent Placement:: unknown Past Psychological History: Depression, Panic Disorder Smoking Status: Former smoker Past Alcohol Use History: Daily Past Drug Use History: Marijuana - Past Family History Father Family Medical History: Congestive Heart Failure (CHF) Mother Additional Family Medical History / Comment(s): of old age. Medications and Allergies Home Medications Medication Instructions Recorded Confirmed Type Aspirin [[place] Aspirin EC] 81 mg PO DAILY@1700 03/13/19 12/27/24 History Ferrous Sulfate [Iron (65 MG 325 mg PO TID@08,12,17 03/13/19 12/27/24 History Elemental)] Isosorbide Mononitrate ER [Imdur] 30 mg PO DAILY@0800 03/13/19 12/27/24 History Pantoprazole Sodium [Protonix] 40 mg PO DAILY@0800 03/13/19 12/27/24 History Ammonium Lactate Cream [Lac-Hydrin 1 applic TOPICAL BID PRN 04/13/23 12/27/24 History 12% Cream] Escitalopram [Lexapro] 10 mg PO DAILY@0800 04/13/23 12/27/24 History Glucerna Shake 1 can PO DAILY PRN 09/24/23 12/27/24 History Liquacel 30 ml PO BID@0800,1700 09/24/23 12/27/24 History Magnesium Hydroxide [Milk of 7,200 mg PO Q48H PRN 09/24/23 12/27/24 History Magnesia Concentrate] Metoprolol Tartrate [Lopressor] 50 mg PO BID@0800,1700 09/24/23 12/27/24 History bisacodyL [Dulcolax] 10 mg RECTAL DAILY PRN 09/24/23 12/27/24 History Cholecalciferol [Vitamin D3 (25 25 mcg PO DAILY@0800 12/19/23 12/27/24 History Mcg = 1000 Iu)] Famotidine [Pepcid] 20 mg PO DAILY@0800 12/19/23 12/27/24 History Levothyroxine Sodium [Synthroid] 150 mcg PO DAILY@0600 12/19/23 12/27/24 History Tamsulosin HCl [Flomax] 0.4 mg PO HS@2100 12/19/23 12/27/24 History Ondansetron [Zofran] 4 mg PO Q8H PRN 01/13/24 12/27/24 History amLODIPine [Norvasc] 5 mg PO BID@0800,2000 01/13/24 12/27/24 History Folic Acid 1 mg PO DAILY@1200 tab 01/23/24 12/27/24 Rx Nystatin 100,000 Unit/gm Powd 1 applic TOPICAL TID each 01/23/24 12/27/24 Rx [Mycostatin Powder] Acetaminophen [Tylenol 8 Hour] 650 mg PO Q6H PRN 02/16/24 12/27/24 History Ipratropium-Albuterol Nebulize 3 ml INHALATION RT-Q6H PRN 02/16/24 12/27/24 History [Duoneb 0.5 mg-3 mg/3 ml Soln] Multivitamins, Thera [Multivitamin 1 tab PO DAILY@1200 02/16/24 12/27/24 History (formulary)] INSULIN ASPART (NovoLOG) [NovoLOG 5 unit SQ W/LUNCH@1100 03/26/24 12/27/24 Histo ry (formulary)] INSULIN ASPART (NovoLOG) [NovoLOG See Protocol SQ 03/26/24 12/27/24 History (formulary)] ACHS@07,11,1630,2130 Petrolat,White/Javi/8-Hydroxyqu 1 applic TOPICAL TUTHSA 03/26/24 12/27/24 History [Bag [place]] Gabapentin [Neurontin] 400 mg PO HS@2100 #3 cap 04/05/24 12/27/24 Rx Lactulose [Cephulac] 20 gm PO DAILY PRN ml 04/05/24 12/27/24 Rx Atorvastatin [Lipitor] 20 mg PO HS@2100 12/27/24 12/27/24 History Dextrose Chew [Glucose Chew Tab] 16 gm PO DAILY PRN 12/27/24 12/27/24 History Dulaglutide [Trulicity] 4.5 mg SQ FR@0800 12/27/24 12/27/24 History HYDROcodone/APAP 5-325MG [[place] 1 tab PO TID@06,14,22 12/27/24 12/27/24 History 5-325] INSULIN ASPART (NovoLOG) [NovoLOG 8 unit SQ BID-W/MEALS@07,1630 12/27/24 12/27/24 History (formulary)] Insulin Glargine,Hum.rec.anlog 13 units SQ BID@0800,2100 12/27/24 12/27/24 History [Lantus Solostar Pen] [place] Packet 1 packet PO BID@0800,1700 12/27/24 12/27/24 History Petrolat,White/Javi/8-Hydroxyqu 1 applic TOPICAL MOWEFR 12/27/24 12/27/24 History [Bag [place]] Phytoplex Z-Guard External Paste 1 applic TOPICAL DAILY 12/27/24 12/27/24 History 57-17% Sennosides [Senokot] 8.6 mg PO BID@0800,1700 12/27/24 12/27/24 History Thiamine [Vitamin B-1] 100 mg PO BID@0800,1700 12/27/24 12/27/24 History Allergies Allergy/AdvReac Type Severity Reaction Status Date / Time No Known Allergies Allergy Verified 12/27/24 13:53 Physical Exam Vitals: Vital Signs Temp Pulse Resp BP Pulse Ox 12/27/24 15:38 97.4 F L 66 16 149/73 93 L 12/27/24 15:19 97.4 F L 66 16 149/73 93 L 12/27/24 13:51 102 H 20 145/74 97 12/27/24 12:04 97.6 F 68 20 144/68 96 Intake and Output 12/27/24 12/27/24 12/27/24 06:59 14:59 22:59 Other: Weight 92.986 kg GENERAL DESCRIPTION: Elderly male lying in bed, no distress. No tachypnea or accessory muscle of respiration use. HEENT: Shows Pallor , no scleral icterus. Oral mucous membrane is dry. NECK: Trachea central, no thyromegaly. LUNGS: Unlabored breathing. Clear to auscultation anteriorly. No wheeze or crackle. HEART: S1, S2, regular rate and rhythm. No loud murmur ABDOMEN: Soft, no tenderness , guarding or rigidity, no organomegaly EXTREMITIES: Left big toe gangrene is seems to be following up with some foul- smelling drainage. SKIN: No rash, no masses palpable. NEUROLOGICAL: The patient is awake, alert, oriented x3, mood and affect normal. Results CBC & Chem 7: 12/27/24 14:09 12/27/24 12:42 Labs: Abnormal Lab Results - Last 24 Hours (Table) 12/27/24 12/27/24 Range/Units 12:42 14:09 RBC 3.18 L (4.30-5.90) m/uL Hgb 8.3 L (13.0-17.5) gm/dL Hct 29.3 L (39.0-53.0) % MCHC 28.4 L (31.0-37.0) g/dL RDW 17.1 H (11.5-15.5) % Lymphocytes # 0.9 L (1.0-4.8) k/uL Potassium 5.2 H (3.5-5.1) mmol/L Chloride 110 H (98-107) mmol/L Carbon Dioxide 19 L (22-30) mmol/L BUN 89 H (9-20) mg/dL Creatinine 1.72 H (0.66-1.25) mg/dL Glucose 122 H (74-99) mg/dL Assessment and Plan (1) Osteomyelitis of left foot Current Visit: Yes Status: Acute Code(s): M86.9 - OSTEOMYELITIS, UNSPECIFIED SNOMED Code(s): 1127272158289690 (2) Diabetic infection of left foot Current Visit: No Status: Acute Code(s): E11.628 - TYPE 2 DIABETES MELLITUS WITH OTHER SKIN COMPLICATIONS; L08.9 - LOCAL INFECTION OF THE SKIN AND SUBCUTANEOUS TISSUE, UNSP SNOMED Code(s): 131086385 Plan: 1patient presented to hospital with left big toe gangrene we seem to be falling off did have associated foul-smelling drainage concerning for underlying osteomyelitis/diabetic foot infection in this patient who has previously grown both MRSA and Pseudomonas aeruginosa 2-patient did have a renal insufficiency and high risk of nephrotoxicity from vancomycin 3-local culture have been obtained to guide further antibiotic therapy 4-we will consult vascular surgery for amputation of the leg toe 5-discontinue vancomycin 6-we will start the patient on Zosyn and daptomycin pending workup completion We will follow on clinical condition and cultures to further adjust medication if needed Thank you for this consultation we will follow the patient along with you Dictation was produced using [employer] dictation software. please excuse any grammatical, word or spelling errors. Time with Patient: Greater than 30
[2024-12-28] MEDS: PIPERACILLIN-TAZOBACTAM 3.375 GM in SODIUM CHLORIDE 0.9% 100 ML IVPB SCH (00:41)
[2024-12-28] MEDS: ACETAMINOPHEN TAB 325 MG TAB PO PRN (00:51)
[2024-12-28 06:12] LABS: Glucose,Whole Blood 133 mg/dL (70-110)
[2024-12-28] MEDS: INSULIN LISPRO (HumaLOG) 100 UNIT/ML 10 mL VL SQ SCH (06:18)
[2024-12-28 07:23] LABS: Anisocytosis Slight; Basophils % (A) 0 %; Eosinophils # (A) 0.4 k/uL (0-0.7); Eosinophils % (A) 6 %; HCT 30.1 % (39.0-53.0); HGB 8.3 gm/dL (13.0-17.5); Hypochromasia Marked; Lymphocytes # (A) 0.4 k/uL (1.0-4.8); Lymphocytes % (A) 7 %; MCH 25.8 pg (25.0-35.0); MCHC 27.6 g/dL (31.0-37.0); MCV 93.4 fL (80.0-100.0); Mean Platelet Volume 7.6; Monocytes # (A) 0.3 k/uL (0-1.0); Monocytes % (A) 5 %; Neutrophils # (A) 4.4 k/uL (1.3-7.7); Neutrophils % (A) 79 %; Platelet Count 279 k/uL (150-450); RBC 3.23 m/uL (4.30-5.90); WBC 5.6 k/uL (3.8-10.6)
[2024-12-28 07:28] LABS: African American GFR (CKD) 41 (>60 ml/min/1.73 sqM); Anion Gap 9 mmol/L; Blood Urea Nitrogen 76 mg/dL (9-20); Calcium 8.7 mg/dL (8.4-10.2); Carbon Dioxide 22 mmol/L (22-30); Chloride 110 mmol/L (98-107); Glucose 167 mg/dL (74-99); Non-African American GFR(CKD) 36 (>60 ml/min/1.73 sqM); Potassium 4.9 mmol/L (3.5-5.1); Sodium 141 mmol/L (137-145)
[2024-12-28] MEDS: amLODIPine 5 MG TAB PO SCH (08:10)
[2024-12-28] MEDS: METOPROLOL TARTRATE 50 MG TAB PO SCH (08:10)
[2024-12-28] MEDS: MORPHINE SULFATE 4 MG/ML SYRINGE IV PRN (08:19)
[2024-12-28 11:19] LABS: Glucose,Whole Blood 211 mg/dL (70-110)
--- NOTE | 2024-12-28 11:50 | P.GSCN ---
History of Present Illness Consult date: 12/28/24 History of present illness: Colton is a 74-year-old male in today for worsening of his gangrene of his left big toe. Historically he has had issues with peripheral vascular disease, subsequently he underwent a femoral to popliteal bypass with vein. At the time he had a questionable toe however had refused any sort of amputation at that point. It continues to do poorly, the distal portion of the toe is necrotic and partially autoamputated. Past Medical History Past Medical History: Coronary Artery Disease (CAD), Diabetes Mellitus, GERD/Reflux, Hyperlipidemia, Hypertension, Myocardial Infarction ([place]), Thyroid Disorder Additional Past Medical History / Comment(s): neuropathy, diabetic coma in 2000 and pt's sister has had legal guardianship since. Last Myocardial Infarction Date:: unknown History of Any Multi-Drug Resistant Organisms: None Reported Year Discovered:: 11/23/23-MRSA; 09/25/23 ESBL MDRO Source:: Left Heel-MRSA; Blood-ESBL Past Surgical History: Appendectomy, Coronary Bypass/CABG, Heart Catheterization With Stent Additional Past Surgical History / Comment(s): Sister relays, "He had peripheral artery surgery too." Past Anesthesia/Blood Transfusion Reactions: No Reported Reaction Date of Last Stent Placement:: unknown Past Psychological History: Depression, Panic Disorder Smoking Status: Former smoker Past Alcohol Use History: Daily Past Drug Use History: Marijuana - Past Family History Father Family Medical History: Congestive Heart Failure (CHF) Mother Additional Family Medical History / Comment(s): of old age. Medications and Allergies Home Medications Medication Instructions Recorded Confirmed Type Aspirin [[place] Aspirin EC] 81 mg PO DAILY@1700 03/13/19 12/27/24 History Ferrous Sulfate [Iron (65 MG 325 mg PO TID@08,12,17 03/13/19 12/27/24 History Elemental)] Isosorbide Mononitrate ER [Imdur] 30 mg PO DAILY@0803/13/19 12/27/24 History Pantoprazole Sodium [Protonix] 40 mg PO DAILY@0803/13/19 12/27/24 History Ammonium Lactate Cream [Lac-Hydrin 1 applic TOPICAL BID PRN 04/13/23 12/27/24 History 12% Cream] Escitalopram [Lexapro] 10 mg PO DAILY@0804/13/23 12/27/24 History Glucerna Shake 1 can PO DAILY PRN 09/24/23 12/27/24 History Liquacel 30 ml PO BID@0800,1700 09/24/23 12/27/24 History Magnesium Hydroxide [Milk of 7,200 mg PO Q48H PRN 09/24/23 12/27/24 History Magnesia Concentrate] Metoprolol Tartrate [Lopressor] 50 mg PO BID@0800,1700 09/24/23 12/27/24 History bisacodyL [Dulcolax] 10 mg RECTAL DAILY PRN 09/24/23 12/27/24 History Cholecalciferol [Vitamin D3 (25 25 mcg PO DAILY@0800 12/19/23 12/27/24 History Mcg = 1000 Iu)] Famotidine [Pepcid] 20 mg PO DAILY@0800 12/19/23 12/27/24 History Levothyroxine Sodium [Synthroid] 150 mcg PO DAILY@0600 12/19/23 12/27/24 History Tamsulosin HCl [Flomax] 0.4 mg PO HS@2100 12/19/23 12/27/24 History Ondansetron [Zofran] 4 mg PO Q8H PRN 01/13/24 12/27/24 History amLODIPine [Norvasc] 5 mg PO BID@0800,2000 01/13/24 12/27/24 History Folic Acid 1 mg PO DAILY@1200 tab 01/23/24 12/27/24 Rx Nystatin 100,000 Unit/gm Powd 1 applic TOPICAL TID each 01/23/24 12/27/24 Rx [Mycostatin Powder] Acetaminophen [Tylenol 8 Hour] 650 mg PO Q6H PRN 02/16/24 12/27/24 History Ipratropium-Albuterol Nebulize 3 ml INHALATION RT-Q6H PRN 02/16/24 12/27/24 History [Duoneb 0.5 mg-3 mg/3 ml Soln] Multivitamins, Thera [Multivitamin 1 tab PO DAILY@1200 02/16/24 12/27/24 History (formulary)] INSULIN ASPART (NovoLOG) [NovoLOG 5 unit SQ W/LUNCH@1100 03/26/24 12/27/24 History (formulary)] INSULIN ASPART (NovoLOG) [NovoLOG See Protocol SQ 03/26/24 12/27/24 History (formulary)] ACHS@07,11,1630,2130 Petrolat,White/Javi/8-Hydroxyqu 1 applic TOPICAL TUTHSA 03/26/24 12/27/24 History [Bag [place]] Gabapentin [Neurontin] 400 mg PO HS@2100 #3 cap 04/05/24 12/27/24 Rx Lactulose [Cephulac] 20 gm PO DAILY PRN ml 04/05/24 12/27/24 Rx Atorvastatin [Lipitor] 20 mg PO HS@2100 12/27/24 12/27/24 History Dextrose Chew [Glucose Chew Tab] 16 gm PO DAILY PRN 12/27/24 12/27/24 History Dulaglutide [Trulicity] 4.5 mg SQ FR@0800 12/27/24 12/27/24 History HYDROcodone/APAP 5-325MG [[place] 1 tab PO TID@06,14,12/27/24 12/27/24 History 5-325] INSULIN ASPART (NovoLOG) [NovoLOG 8 unit SQ BID-W/MEALS@07,1630 12/27/24 12/27/24 History (formulary)] Insulin Glargine,Hum.rec.anlog 13 units SQ BID@0800,209912/27/24 12/27/24 History [Lantus Solostar Pen] [place] Packet 1 packet PO BID@0800,1700 12/27/24 12/27/24 History Petrolat,White/Javi/8-Hydroxyqu 1 applic TOPICAL MOWEFR 12/27/24 12/27/24 History [Bag [place]] Phytoplex Z-Guard External Paste 1 applic TOPICAL DAILY 12/27/24 12/27/24 History 57-17% Sennosides [Senokot] 8.6 mg PO BID@0800,1700 12/27/24 12/27/24 History Thiamine [Vitamin B-1] 100 mg PO BID@0800,1700 12/27/24 12/27/24 History Allergies Allergy/AdvReac Type Severity Reaction Status Date / Time No Known Allergies Allergy Verified 12/27/24 13:53 Surgical - Exam Vital Signs Temp Pulse Resp BP Pulse Ox 97.6 F 68 20 144/68 96 12/27/24 12:04 12/27/24 12:04 12/27/24 12:04 12/27/24 12:04 12/27/24 12:04 Constitutional: No acute distress, pleasant, chronically ill-appearing Eyes: Anicteric sclerae, moist conjunctiva, no lid-lag HENMT: Normocephalic / Atraumatic Oropharynx clear Neck: Supple, full range of motion, nontender, no masses Lungs: No respiratory distress Abdominal: Soft, Nontender, nondistended Skin: Normal temperature, tone, texture, turgor. No rashes Extremities: Left great toe partially out of amputating due to dry gangrene, bone exposure Vascular: Palpable pulse in graft Psychiatric: AOx3 Neuro: Cranial nerves II-XII grossly intact Results - Labs 12/28/24 04:40 12/28/24 04:40 Abnormal Lab Results - Last 24 Hours (Table) 12/27/24 12/27/24 12/27/24 Range/Units 12:42 14:09 16:12 RBC 3.18 L (4.30-5.90) m/uL Hgb 8.3 L (13.0-17.5) gm/dL Hct 29.3 L (39.0-53.0) % MCHC 28.4 L (31.0-37.0) g/dL RDW 17.1 H (11.5-15.5) % Lymphocytes # 0.9 L (1.0-4.8) k/uL Potassium 5.2 H (3.5-5.1) mmol/L Chloride 110 H (98-107) mmol/L Carbon Dioxide 19 L (22-30) mmol/L BUN 89 H (9-20) mg/dL Creatinine 1.72 H (0.66-1.25) mg/dL Glucose 122 H (74-99) mg/dL POC Glucose (mg/dL) (70-110) mg/dL Urine Protein 1+ H (Negative) Urine Glucose (UA) 3+ H (Negative) Urine Blood Large H (Negative) Ur Leukocyte Esterase Large H (Negative) Urine RBC 9 H (0-5) /hpf Urine WBC 135 H (0-5) /hpf Urine WBC Clumps Many H (None) /hpf 12/27/24 12/28/24 12/28/24 Range/Units 21:10 04:40 04:40 RBC 3.23 L (4.30-5.90) m/uL Hgb 8.3 L (13.0-17.5) gm/dL Hct 30.1 L (39.0-53.0) % MCHC 27.6 L (31.0-37.0) g/dL RDW 17.0 H (11.5-15.5) % Lymphocytes # 0.4 L (1.0-4.8) k/uL Potassium (3.5-5.1) mmol/L Chloride 110 H (98-107) mmol/L Carbon Dioxide (22-30) mmol/L BUN 76 H (9-20) mg/dL Creatinine 1.82 H (0.66-1.25) mg/dL Glucose 167 H (74-99) mg/dL POC Glucose (mg/dL) 257 H (70-110) mg/dL Urine Protein (Negative) Urine Glucose (UA) (Negative) Urine Blood (Negative) Ur Leukocyte Esterase (Negative) Urine RBC (0-5) /hpf Urine WBC (0-5) /hpf Urine WBC Clumps (None) /hpf 12/28/24 12/28/24 Range/Units 06:11 11:17 RBC (4.30-5.90) m/uL Hgb (13.0-17.5) gm/dL Hct (39.0-53.0) % MCHC (31.0-37.0) g/dL RDW (11.5-15.5) % Lymphocytes # (1.0-4.8) k/uL Potassium (3.5-5.1) mmol/L Chloride (98-107) mmol/L Carbon Dioxide (22-30) mmol/L BUN (9-20) mg/dL Creatinine (0.66-1.25) mg/dL Glucose (74-99) mg/dL POC Glucose (mg/dL) 133 H 211 H (70-110) mg/dL Urine Protein (Negative) Urine Glucose (UA) (Negative) Urine Blood (Negative) Ur Leukocyte Esterase (Negative) Urine RBC (0-5) /hpf Urine WBC (0-5) /hpf Urine WBC Clumps (None) /hpf Diabetes panel 12/27/24 12/28/24 Range/Units 12:42 04:40 Sodium 141 141 (137-145) mmol/L Potassium 5.2 H 4.9 (3.5-5.1) mmol/L Chloride 110 H 110 H (98-107) mmol/L Carbon Dioxide 19 L 22 (22-30) mmol/L BUN 89 H 76 H (9-20) mg/dL Creatinine 1.72 H 1.82 H (0.66-1.25) mg/dL Glucose 122 H 167 H (74-99) mg/dL Calcium 8.7 8.7 (8.4-10.2) mg/dL AST 20 (17-59) U/L ALT 25 (4-49) U/L Alkaline Phosphatase 102 (38-126) U/L Total Protein 7.7 (6.3-8.2) g/dL Albumin 3.6 (3.5-5.0) g/dL Calcium panel 12/27/24 12/28/24 Range/Units 12:42 04:40 Calcium 8.7 8.7 (8.4-10.2) mg/dL Albumin 3.6 (3.5-5.0) g/dL Pituitary panel 12/27/24 12/28/24 Range/Units 12:42 04:40 Sodium 141 141 (137-145) mmol/L Potassium 5.2 H 4.9 (3.5-5.1) mmol/L Chloride 110 H 110 H (98-107) mmol/L Carbon Dioxide 19 L 22 (22-30) mmol/L BUN 89 H 76 H (9-20) mg/dL Creatinine 1.72 H 1.82 H (0.66-1.25) mg/dL Glucose 122 H 167 H (74-99) mg/dL Calcium 8.7 8.7 (8.4-10.2) mg/dL Adrenal panel 12/27/24 12/28/24 Range/Units 12:42 04:40 Sodium 141 141 (137-145) mmol/L Potassium 5.2 H 4.9 (3.5-5.1) mmol/L Chloride 110 H 110 H (98-107) mmol/L Carbon Dioxide 19 L 22 (22-30) mmol/L BUN 89 H 76 H (9-20) mg/dL Creatinine 1.72 H 1.82 H (0.66-1.25) mg/dL Glucose 122 H 167 H (74-99) mg/dL Calcium 8.7 8.7 (8.4-10.2) mg/dL Total Bilirubin 0.3 (0.2-1.3) mg/dL AST 20 (17-59) U/L ALT 25 (4-49) U/L Alkaline Phosphatase 102 (38-126) U/L Total Protein 7.7 (6.3-8.2) g/dL Albumin 3.6 (3.5-5.0) g/dL Assessment and Plan Assessment: Dry gangrene left great toe Osteomyelitis due to exposed bone Peripheral vascular disease with previous femoral to tibial bypass, patent Plan: Last has not had a [place] at this time in regards to plan for amputation of the toe. He seemingly understands the plan overall and is willing to proceed. Did talk to his guardian, his Sister German who is also in agreement. Will plan for this tomorrow nothing to eat or drink after midnight. Hopeful for good potential for healing due to patent vasculature
[2024-12-28] MEDS ORDERED: VANCOMYCIN 1,500 MG in SODIUM CHLORIDE 0.9% 500 ML 500 ML IVPB SCH (12:00)
--- NOTE | 2024-12-28 15:46 | P.HPIM ---
History of Present Illness H&P Date: 12/28/24 Chief Complaint: Pain and swelling left first toe 74-year-old male, history of coronary artery disease, hypertension, hyperlipidemia, hypothyroidism, diabetes mellitus, with a past medical history of diabetes presents to the emergency department for evaluation of left first toe duration. The patient states that this has been going on for a year. He notes that it has gotten worse in his toe but now seems like it is going to "fall off "he follows with Dr. Romeo for this. He was told that it would fall off on its own but has not yet. Denies fever, chills. Blood work completed in ED reveals a WBC of 5.6, hemoglobin of 8.3 and platelet count of 279, sodium 141, potassium 4.9, BUNs/creatinine of 76/1.82, blood glucose of 257 UA reveals 3+ glucose, large amount of blood, large leukocyte esterase, many WBCs Left foot x-ray reveals erosive destruction of the mid to distal diaphysis of the first proximal phalanx with moderate surrounding soft tissue swelling, acute osteomyelitis is suspected Review of Systems REVIEW OF SYSTEMS: CONSTITUTIONAL: No fever, no malaise, no fatigue. HEENT: No recent visual problems or hearing problems. Denied any sore throat. CARDIOVASCULAR: No chest pain, orthopnea, PND, no palpitations, no syncope. PULMONARY: No shortness of breath, no cough, no hemoptysis. GASTROINTESTINAL: No diarrhea, no nausea, no vomiting, no abdominal pain. NEUROLOGICAL: No headaches, no weakness, no numbness. HEMATOLOGICAL: Denies any bleeding or petechiae. GENITOURINARY: Denies any burning micturition, frequency, or urgency. MUSCULOSKELETAL/RHEUMATOLOGICAL: Denies any joint pain, swelling, or any muscle pain. ENDOCRINE: Denies any polyuria or polydipsia. The rest of the 14-point review of systems is negative. Past Medical History Past Medical History: Coronary Artery Disease (CAD), Diabetes Mellitus, GERD/Reflux, Hyperlipidemia, Hypertension, Myocardial Infarction ([place]), Thyroid Disorder Additional Past Medical History / Comment(s): neuropathy, diabetic coma in 2000 and pt's sister has had legal guardianship since. Last Myocardial Infarction Date:: unknown History of Any Multi-Drug Resistant Organisms: None Reported Date of last positivie culture/infection: 11/23/23-MRSA; 09/25/23 ESBL MDRO Source:: Left Heel-MRSA; Blood-ESBL Past Surgical History: Appendectomy, Coronary Bypass/CABG, Heart Catheterization With Stent Additional Past Surgical History / Comment(s): Sister relays, "He had peripheral artery surgery too." Past Anesthesia/Blood Transfusion Reactions: No Reported Reaction Date of Last Stent Placement:: unknown Past Psychological History: Depression, Panic Disorder Smoking Status: Former smoker Past Alcohol Use History: Daily Past Drug Use History: Marijuana - Past Family History Father Family Medical History: Congestive Heart Failure (CHF) Mother Additional Family Medical History / Comment(s): of old age. Medications and Allergies Home Medications Medication Instructions Recorded Confirmed Type Aspirin [[place] Aspirin EC] 81 mg PO DAILY@1700 03/13/19 12/27/24 History Ferrous Sulfate [Iron (65 MG 325 mg PO TID@08,12,17 03/13/19 12/27/24 History Elemental)] Isosorbide Mononitrate ER [Imdur] 30 mg PO DAILY@0800 03/13/19 12/27/24 History Pantoprazole Sodium [Protonix] 40 mg PO DAILY@0800 03/13/19 12/27/24 History Ammonium Lactate Cream [Lac-Hydrin 1 applic TOPICAL BID PRN 04/13/23 12/27/24 History 12% Cream] Escitalopram [Lexapro] 10 mg PO DAILY@0800 04/13/23 12/27/24 History Glucerna Shake 1 can PO DAILY PRN 09/24/23 12/27/24 History Liquacel 30 ml PO BID@0800,1700 09/24/23 12/27/24 History Magnesium Hydroxide [Milk of 7,200 mg PO Q48H PRN 09/24/23 12/27/24 History Magnesia Concentrate] Metoprolol Tartrate [Lopressor] 50 mg PO BID@0800,1700 09/24/23 12/27/24 History bisacodyL [Dulcolax] 10 mg RECTAL DAILY PRN 09/24/23 12/27/24 History Cholecalciferol [Vitamin D3 (25 25 mcg PO DAILY@0800 12/19/23 12/27/24 History Mcg = 1000 Iu)] Famotidine [Pepcid] 20 mg PO DAILY@0800 12/19/23 12/27/24 History Levothyroxine Sodium [Synthroid] 150 mcg PO DAILY@0600 12/19/23 12/27/24 History Tamsulosin HCl [Flomax] 0.4 mg PO HS@209912/19/23 12/27/24 History Ondansetron [Zofran] 4 mg PO Q8H PRN 01/13/24 12/27/24 History amLODIPine [Norvasc] 5 mg PO BID@0800,2000 01/13/24 12/27/24 History Folic Acid 1 mg PO DAILY@1200 tab 01/23/24 12/27/24 Rx Nystatin 100,000 Unit/gm Powd 1 applic TOPICAL TID each 01/23/24 12/27/24 Rx [Mycostatin Powder] Acetaminophen [Tylenol 8 Hour] 650 mg PO Q6H PRN 02/16/24 12/27/24 History Ipratropium-Albuterol Nebulize 3 ml INHALATION RT-Q6H PRN 02/16/24 12/27/24 History [Duoneb 0.5 mg-3 mg/3 ml Soln] Multivitamins, Thera [Multivitamin 1 tab PO DAILY@1200 02/16/24 12/27/24 History (formulary)] INSULIN ASPART (NovoLOG) [NovoLOG 5 unit SQ W/LUNCH@1100 03/26/24 12/27/24 History (formulary)] INSULIN ASPART (NovoLOG) [NovoLOG See Protocol SQ 03/26/24 12/27/24 History (formulary)] ACHS@07,11,1630,2130 Petrolat,White/Javi/8-Hydroxyqu 1 applic TOPICAL TUTHSA 03/26/24 12/27/24 History [Bag [place]] Gabapentin [Neurontin] 400 mg PO HS@2099 #3 cap 04/05/24 12/27/24 Rx Lactulose [Cephulac] 20 gm PO DAILY PRN ml 04/05/24 12/27/24 Rx Atorvastatin [Lipitor] 20 mg PO HS@209912/27/24 12/27/24 History Dextrose Chew [Glucose Chew Tab] 16 gm PO DAILY PRN 12/27/24 12/27/24 History Dulaglutide [Trulicity] 4.5 mg SQ FR@0800 12/27/24 12/27/24 History HYDROcodone/APAP 5-325MG [[place] 1 tab PO TID@06,14,22 12/27/24 12/27/24 History 5-325] INSULIN ASPART (NovoLOG) [NovoLOG 8 unit SQ BID-W/MEALS@07,1630 12/27/24 12/27/24 History (formulary)] Insulin Glargine,Hum.rec.anlog 13 units SQ BID@0800,2100 12/27/24 12/27/24 History [Lantus Solostar Pen] [place] Packet 1 packet PO BID@0800,1700 12/27/24 12/27/24 History Petrolat,White/Javi/8-Hydroxyqu 1 applic TOPICAL MOWEFR 12/27/24 12/27/24 History [Bag [place]] Phytoplex Z-Guard External Paste 1 applic TOPICAL DAILY 12/27/24 12/27/24 History 57-17% Sennosides [Senokot] 8.6 mg PO BID@0800,1700 12/27/24 12/27/24 History Thiamine [Vitamin B-1] 100 mg PO BID@0800,1700 12/27/24 12/27/24 History Allergies Allergy/AdvReac Type Severity Reaction Status Date / Time No Known Allergies Allergy Verified 12/27/24 13:53 Physical Exam Vitals: Vital Signs Temp Pulse Pulse Resp BP BP Pulse Ox 12/28/24 07:05 97.6 F 88 19 191/78 97 12/28/24 01:36 97.9 F 94 16 163/82 97 12/27/24 20:21 98.4 F 87 17 145/70 94 L 12/27/24 16:00 18 12/27/24 15:38 97.4 F L 66 16 149/73 93 L 12/27/24 15:19 97.4 F L 66 16 149/73 93 L 12/27/24 13:51 102 H 20 145/74 97 12/27/24 12:04 97.6 F 68 20 144/68 96 Intake and Output 12/27/24 12/28/24 12/28/24 22:59 06:59 14:59 Output Total 3400 Balance -3400 Output: Urine 3400 Other: Voiding Method Indwelling Catheter Weight 92.986 kg GENERAL DESCRIPTION: Elderly male lying in bed, no distress. No tachypnea or accessory muscle of respiration use. HEENT: Shows Pallor , no scleral icterus. Oral mucous membrane is dry. NECK: Trachea central, no thyromegaly. LUNGS: Unlabored breathing. Clear to auscultation anteriorly. No wheeze or crackle. HEART: S1, S2, regular rate and rhythm. No loud murmur ABDOMEN: Soft, no tenderness , guarding or rigidity, no organomegaly EXTREMITIES: Left big toe gangrene is seems to be following up with some foul- smelling drainage. SKIN: No rash, no masses palpable. NEUROLOGICAL: The patient is awake, alert, oriented x3, mood and affect normal. Results CBC & Chem 7: 12/28/24 04:40 12/28/24 04:40 Labs: Abnormal Lab Results - Last 24 Hours (Table) 12/27/24 12/27/24 12/27/24 Range/Units 12:42 14:09 16:12 RBC 3.18 L (4.30-5.90) m/uL Hgb 8.3 L (13.0-17.5) gm/dL Hct 29.3 L (39.0-53.0) % MCHC 28.4 L (31.0-37.0) g/dL RDW 17.1 H (11.5-15.5) % Lymphocytes # 0.9 L (1.0-4.8) k/uL Potassium 5.2 H (3.5-5.1) mmol/L Chloride 110 H (98-107) mmol/L Carbon Dioxide 19 L (22-30) mmol/L BUN 89 H (9-20) mg/dL Creatinine 1.72 H (0.66-1.25) mg/dL Glucose 122 H (74-99) mg/dL POC Glucose (mg/dL) (70-110) mg/dL Urine Protein 1+ H (Negative) Urine Glucose (UA) 3+ H (Negative) Urine Blood Large H (Negative) Ur Leukocyte Esterase Large H (Negative) Urine RBC 9 H (0-5) /hpf Urine WBC 135 H (0-5) /hpf Urine WBC Clumps Many H (None) /hpf 12/27/24 12/28/24 12/28/24 Range/Units 21:10 04:40 04:40 RBC 3.23 L (4.30-5.90) m/uL Hgb 8.3 L (13.0-17.5) gm/dL Hct 30.1 L (39.0-53.0) % MCHC 27.6 L (31.0-37.0) g/dL RDW 17.0 H (11.5-15.5) % Lymphocytes # 0.4 L (1.0-4.8) k/uL Potassium (3.5-5.1) mmol/L Chloride 110 H (98-107) mmol/L Carbon Dioxide (22-30) mmol/L BUN 76 H (9-20) mg/dL Creatinine 1.82 H (0.66-1.25) mg/dL Glucose 167 H (74-99) mg/dL POC Glucose (mg/dL) 257 H (70-110) mg/dL Urine Protein (Negative) Urine Glucose (UA) (Negative) Urine Blood (Negative) Ur Leukocyte Esterase (Negative) Urine RBC (0-5) /hpf Urine WBC (0-5) /hpf Urine WBC Clumps (None) /hpf 12/28/24 Range/Units 06:11 RBC (4.30-5.90) m/uL Hgb (13.0-17.5) gm/dL Hct (39.0-53.0) % MCHC (31.0-37.0) g/dL RDW (11.5-15.5) % Lymphocytes # (1.0-4.8) k/uL Potassium (3.5-5.1) mmol/L Chloride (98-107) mmol/L Carbon Dioxide (22-30) mmol/L BUN (9-20) mg/dL Creatinine (0.66-1.25) mg/dL Glucose (74-99) mg/dL POC Glucose (mg/dL) 133 H (70-110) mg/dL Urine Protein (Negative) Urine Glucose (UA) (Negative) Urine Blood (Negative) Ur Leukocyte Esterase (Negative) Urine RBC (0-5) /hpf Urine WBC (0-5) /hpf Urine WBC Clumps (None) /hpf Thrombosis Risk Factor Assmnt - Choose All That Apply Any of the Below Risk Factors Present?: Yes Each Factor Represents 1 point: Obesity (BMI >25) Other Risk Factors: Yes Each Risk Factor Represents 2 Points: Age 61-74 years Other congenital or acquired thrombophilia - If yes, enter type in comment: No Thrombosis Risk Factor Assessment Total Risk Factor Score: 3 Thrombosis Risk Factor Assessment Level: Moderate Risk Assessment and Plan Assessment: 1. Osteomyelitis left foot -Patient placed on IV Zosyn and vancomycin in ED -Vascular surgery and ID consulted 2. Diabetic infection left foot; patient has been evaluated by ID and has been transitioned to IV daptomycin; continue current dose of Zosyn 3. Acute renal injury; BUN/creatinine elevated at 89/1.72 at time of admission and continuing to trend up to a creatinine of 1.82 -We will monitor strict MACK's, daily weights, renal function electrolytes; avoid nephrotoxins and hypotension 4. Hyperglycemia; diabetes mellitus type 2; monitor Accu-Cheks before every meal and at bedtime with insulin sliding scale 5. Hyperkalemia; likely related to acute renal injury; potassium at 5.2 upon arrival to ED; repeat potassium level at 4.9 -Will monitor electrolytes periodically 6. Hypertension; amlodipine 5 mg twice daily; metoprolol 50 mg twice daily DVT prophylaxis; SCDs/subcu heparin CODE STATUS; full code
[2024-12-28 16:33] LABS: Glucose,Whole Blood 96 mg/dL (70-110)
[2024-12-28 20:38] LABS: Glucose,Whole Blood 192 mg/dL (70-110)
[2024-12-29] MEDS: IPRATROPIUM-ALBUTEROL 3 ML NEB INHALATION PRN (01:57)
[2024-12-29] MEDS: amLODIPine 5 MG TAB PO STA (03:16)
[2024-12-29 06:58] LABS: Glucose,Whole Blood 233 mg/dL (70-110)
[2024-12-29 11:12] LABS: Glucose,Whole Blood 164 mg/dL (70-110)
[2024-12-29 11:27] LABS: Anisocytosis Slight; Basophils % (A) 0 %; Eosinophils # (A) 0.4 k/uL (0-0.7); Eosinophils % (A) 6 %; HCT 33.3 % (39.0-53.0); Hypochromasia Marked; Lymphocytes # (A) 0.5 k/uL (1.0-4.8); Lymphocytes % (A) 8 %; MCH 25.2 pg (25.0-35.0); MCHC 26.9 g/dL (31.0-37.0); MCV 93.6 fL (80.0-100.0); Mean Platelet Volume 7.6; Monocytes # (A) 0.3 k/uL (0-1.0); Monocytes % (A) 5 %; Neutrophils # (A) 4.8 k/uL (1.3-7.7); Neutrophils % (A) 79 %; Platelet Count 270 k/uL (150-450); RBC 3.56 m/uL (4.30-5.90); RDW 17.4 % (11.5-15.5)
[2024-12-29 11:47] LABS: African American GFR (CKD) 32 (>60 ml/min/1.73 sqM); Anion Gap 10 mmol/L; Blood Urea Nitrogen 57 mg/dL (9-20); Calcium 8.7 mg/dL (8.4-10.2); Carbon Dioxide 23 mmol/L (22-30); Chloride 110 mmol/L (98-107); Glucose 165 mg/dL (74-99); Non-African American GFR(CKD) 28 (>60 ml/min/1.73 sqM); Potassium 5.2 mmol/L (3.5-5.1); Sodium 143 mmol/L (137-145)
[2024-12-29] MEDS: IPRATROPIUM-ALBUTEROL 3 ML NEB INHALATION STA (12:01)
[2024-12-29] MEDS: BUDESONIDE 1 MG/2 ML NEBU INHALATION STA (12:01)
[2024-12-29] MEDS: DEXAMETHASONE SOD PHOSPHATE 4 MG/ML 1 ML VIAL IVP STA (12:01)
[2024-12-29] MEDS: ONDANSETRON 4 MG/2 ML VIAL IVP STA (12:02)
[2024-12-29] MEDS: METOCLOPRAMIDE 5 MG/ML 2 ML VIAL IVP STA (12:02)
[2024-12-29] MEDS: LACTATED RINGERS 1,000 ML IV ONE (12:18)
[2024-12-29] MEDS ORDERED: KETAMINE HCL IN 0.9 % NACL 50 MG/5 ML SYRINGE ONE (12:20)
[2024-12-29] MEDS ORDERED: MIDAZOLAM 2 MG/2 ML VIAL ONE (12:20)
[2024-12-29] MEDS: LIDOCAINE 1% INJ 10MG/ML (20 ML MDV) SQ ONE ×3 (12:30→12:33)
--- NOTE | 2024-12-29 13:11 | P.OP ---
Date of Procedure: 12/29/24 Description of Procedure: SURGEON: Pricila Romeo DO SECTION GANG: None PREOPERATIVE DIAGNOSIS: Dry gangrene with partial autoamputation of left great toe. POSTOPERATIVE DIAGNOSIS: Same. OPERATION: Left great toe ray amputation ANESTHESIA: Local with sedation ESTIMATED BLOOD LOSS: Less than 5 cc SPECIMENS REMOVED: Left great toe for disposal COMPLICATIONS: None DESCRIPTION OF PROCEDURE: This patient was brought to the operating room, and given local and IV sedation. The operative foot was prepped and draped in sterile manner. An incision was made at the base of the great toe deep into skin and fascia on plantar and dorsal aspect until we reached the head of the metatarsal bone.The head of the metatarsal was from the toe and transected. The tendons were divided in plantar and dorsal aspects. The toe was removed. The metatarsal was transected with a bone cutters. The bone was relatively brittle. Sesamoid bones were removed. There were minimal bleeding points which were electrocoagulated. Base of the wound looked clean, and the wound was copiously irrigated with saline. Tissue was approximated with 3-0 Vicryl interrupted sutures and the skin with 2-0 nylon. dressing was applied. The patient tolerated the procedure well.
--- NOTE | 2024-12-29 14:28 | P.PN ---
Subjective Progress Note Date: 12/29/24 74-year-old male, history of coronary artery disease, hypertension, hyperlipidemia, hypothyroidism, diabetes mellitus, with a past medical history of diabetes presents to the emergency department for evaluation of left first toe duration. The patient states that this has been going on for a year. He notes that it has gotten worse in his toe but now seems like it is going to "fall off "he follows with Dr. Romeo for this. He was told that it would fall off on its own but has not yet. Denies fever, chills. Blood work completed in ED reveals a WBC of 5.6, hemoglobin of 8.3 and platelet count of 279, sodium 141, potassium 4.9, BUNs/creatinine of 76/1.82, blood glucose of 257 UA reveals 3+ glucose, large amount of blood, large leukocyte esterase, many WBCs Left foot x-ray reveals erosive destruction of the mid to distal diaphysis of the first proximal phalanx with moderate surrounding soft tissue swelling, acute osteomyelitis is suspected --- Patient is scheduled for left big toe amputation this morning Objective - Vital Signs Vital signs: Vital Signs Temp 98.2 F 12/29/24 07:53 Pulse 87 12/29/24 08:30 Resp 18 12/29/24 08:30 BP 151/63 12/29/24 07:53 Pulse Ox 99 12/29/24 07:53 FiO2 Intake & Output 12/28/24 12/29/24 12/29/24 18:59 06:59 18:59 Output Total 2250 1525 Balance -2250 -1525 Output: Urine 2250 1525 Other: Voiding Method Indwelling Catheter Indwelling Catheter Indwelling Catheter # Bowel Movements 1 - Exam GENERAL DESCRIPTION: Elderly male lying in bed, no distress. No tachypnea or accessory muscle of respiration use. HEENT: Shows Pallor , no scleral icterus. Oral mucous membrane is dry. NECK: Trachea central, no thyromegaly. LUNGS: Unlabored breathing. Clear to auscultation anteriorly. No wheeze or crackle. HEART: S1, S2, regular rate and rhythm. No loud murmur ABDOMEN: Soft, no tenderness , guarding or rigidity, no organomegaly EXTREMITIES: Left big toe gangrene is seems to be following up with some foul- smelling drainage. SKIN: No rash, no masses palpable. NEUROLOGICAL: The patient is awake, alert, oriented x3, mood and affect normal. - Labs CBC & Chem 7: 12/29/24 11:06 12/29/24 11:06 Labs: Abnormal Lab Results - Last 24 Hours (Table) 12/28/24 12/28/24 12/29/24 Range/Units 11:17 20:37 06:57 POC Glucose (mg/dL) 211 H 192 H 233 H (70-110) mg/dL Microbiology - Last 24 Hours (Table) 12/27/24 16:12 Urine Culture - Preliminary Urine,Voided 12/27/24 16:15 Gram Stain - Preliminary Toe - Left First Wound Culture - Preliminary Proteus mirabilis Enterococcus faecalis Assessment and Plan Assessment: 1. Osteomyelitis left foot -Patient placed on IV Zosyn and vancomycin in ED -Vascular surgery and ID consulted 2. Diabetic infection left foot; patient has been evaluated by ID and has been transitioned to IV daptomycin; continue current dose of Zosyn 3. Acute renal injury; BUN/creatinine elevated at 89/1.72 at time of admission and continuing to trend up to a creatinine of 1.82 -We will monitor strict MACK's, daily weights, renal function electrolytes; avoid nephrotoxins and hypotension 4. Hyperglycemia; diabetes mellitus type 2; monitor Accu-Cheks before every meal and at bedtime with insulin sliding scale 5. Hyperkalemia; likely related to acute renal injury; potassium at 5.2 upon arrival to ED; repeat potassium level at 4.9 -Will monitor electrolytes periodically 6. Hypertension; amlodipine 5 mg twice daily; metoprolol 50 mg twice daily DVT prophylaxis; SCDs/subcu heparin CODE STATUS; full code
--- NOTE | 2024-12-29 14:55 | P.PN ---
Subjective Progress Note Date: 12/28/24 Principal diagnosis: Reason for follow-up is left big toe gangrene's/osteomyelitis Patient is a 74-year-old male with a past medical history significant for Coronary Artery Disease (CAD), Diabetes Mellitus, GERD/Reflux, Hyperlipidemia, Hypertension, Myocardial Infarction ([place]), Thyroid Disorder has been dealing with gangrene to the left big toe has not been brought back to the hospital with partial amputation of that gangrenous toe concerning for osteomyelitis. On today's evaluation that is 12/28/2024, patient did not have any fever and denies any chills, patient is breathing comfortably on 3 L nasal oxygen patient with no chest pain or cough patient did not have any abdominal pain nausea vomiting or any loose stools. Patient white count is 5.6 creatinine is 1.82 Objective - Vital Signs Vital signs: Vital Signs Temp 98.2 F 12/28/24 13:42 Pulse 64 12/28/24 13:42 Resp 17 12/28/24 13:42 BP 146/70 12/28/24 13:42 Pulse Ox 98 12/28/24 13:42 FiO2 Intake & Output 12/27/24 12/28/24 12/28/24 18:59 06:59 18:59 Output Total 3400 Balance -3400 Weight 92.986 kg 92.986 kg Output: Urine 3400 Other: Voiding Method Indwelling Catheter Indwelling Catheter Indwelling Catheter - Exam GENERAL DESCRIPTION: An elderly male lying in bed in no distress RESPIRATORY SYSTEM: Unlabored breathing , decreased breath sounds at bases HEART: S1 S2 regular rate and rhythm , ABDOMEN: Soft , no tenderness EXTREMITIES: Left big toe is currently dressed - Labs CBC & Chem 7: 12/29/24 11:06 12/29/24 11:06 Labs: Abnormal Lab Results - Last 24 Hours (Table) 12/27/24 12/27/24 12/28/24 Range/Units 16:12 21:10 04:40 RBC 3.23 L (4.30-5.90) m/uL Hgb 8.3 L (13.0-17.5) gm/dL Hct 30.1 L (39.0-53.0) % MCHC 27.6 L (31.0-37.0) g/dL RDW 17.0 H (11.5-15.5) % Lymphocytes # 0.4 L (1.0-4.8) k/uL Chloride (98-107) mmol/L BUN (9-20) mg/dL Creatinine (0.66-1.25) mg/dL Glucose (74-99) mg/dL POC Glucose (mg/dL) 257 H (70-110) mg/dL Urine Protein 1+ H (Negative) Urine Glucose (UA) 3+ H (Negative) Urine Blood Large H (Negative) Ur Leukocyte Esterase Large H (Negative) Urine RBC 9 H (0-5) /hpf Urine WBC 135 H (0-5) /hpf Urine WBC Clumps Many H (None) /hpf 12/28/24 12/28/24 12/28/24 Range/Units 04:40 06:11 11:17 RBC (4.30-5.90) m/uL Hgb (13.0-17.5) gm/dL Hct (39.0-53.0) % MCHC (31.0-37.0) g/dL RDW (11.5-15.5) % Lymphocytes # (1.0-4.8) k/uL Chloride 110 H (98-107) mmol/L BUN 76 H (9-20) mg/dL Creatinine 1.82 H (0.66-1.25) mg/dL Glucose 167 H (74-99) mg/dL POC Glucose (mg/dL) 133 H 211 H (70-110) mg/dL Urine Protein (Negative) Urine Glucose (UA) (Negative) Urine Blood (Negative) Ur Leukocyte Esterase (Negative) Urine RBC (0-5) /hpf Urine WBC (0-5) /hpf Urine WBC Clumps (None) /hpf Assessment and Plan (1) Osteomyelitis of left foot Current Visit: Yes Status: Acute Code(s): M86.9 - OSTEOMYELITIS, UNSPECIFIED SNOMED Code(s): 1776923800676439 (2) Diabetic infection of left foot Current Visit: No Status: Acute Code(s): E11.628 - TYPE 2 DIABETES MELLITUS WITH OTHER SKIN COMPLICATIONS; L08.9 - LOCAL INFECTION OF THE SKIN AND SUBCUT ANEOUS TISSUE, UNSP SNOMED Code(s): 719787936 Plan: 1patient presented to hospital with left big toe gangrene we seem to be falling off did have associated foul-smelling drainage concerning for underlying osteomyelitis/diabetic foot infection in this patient who has previously grown both MRSA and Pseudomonas aeruginosa 2-patient did have a renal insufficiency and high risk of nephrotoxicity from vancomycin 3-local culture have been obtained which are currently pending patient has been seen by vascular surgery planning for possible amputation in a.m. 4-patient to continue with Zosyn and daptomycin while waiting for the culture to finalize Dictation was produced using [employer] dictation software. please excuse any grammatical, word or spelling errors. Time with Patient: Less than 30
[2024-12-29 17:00] LABS: Glucose,Whole Blood 219 mg/dL (70-110)
--- NOTE | 2024-12-29 18:55 | US ---
EXAMINATION TYPE: US venous doppler duplex UE RT DATE OF EXAM: 12/29/2024 Exam done portable COMPARISON: NONE CLINICAL INDICATION: Male, 74 years old with history of r/o DVT; TECHNIQUE: Grayscale, color Doppler and spectral Doppler imaging of the upper extremity. SIDE PERFORMED: Right VESSELS IMAGED: IJV Subclavian Vein Axilla Vein Brachial Vein(s) Radial Paired Veins Ulnar Paired Veins Cephalic Vein* Basilic Vein* (*superficial vessels) FINDINGS: Right Arm: Appears negative for DVT IMPRESSION: No evidence of DVT in the right upper extremity. [facility], , 12/29/2024 6:53 PM
[2024-12-29 20:57] LABS: Glucose,Whole Blood 358 mg/dL (70-110)
[2024-12-30 06:29] LABS: Glucose,Whole Blood 379 mg/dL (70-110)
[2024-12-30 08:19] LABS: Basophils # (A) 0.02 X 10*3/uL (0.00-0.10); Basophils % (A) 0.3 %; Eosinophils # (A) 0 X 10*3/uL (0.04-0.35); Eosinophils % (A) 0 %; HGB 7.3 g/dL (13.0-17.0); Lymphocytes # (A) 0.31 X 10*3/uL (0.90-5.00); Lymphocytes % (A) 4.8 %; MCH 26.2 pg (27.0-32.0); MCHC 28.1 g/dL (32.0-37.0); MCV 93.2 FL (80.0-97.0); Mean Platelet Volume 10.4 FL (9.5-12.2); Monocytes # (A) 0.21 X 10*3/uL (0.20-1.00); Monocytes % (A) 3.2 %; NRBC Per 100 WBC 0 X 10*3/uL (0.00-0.01); Neutrophils # (A) 5.96 X 10*3/uL (1.80-7.70); Neutrophils % (A) 91.4 %; Platelet Count 221 X 10*3/uL (140-440); RBC 2.79 X 10*6/uL (4.40-5.60); RDW 17.2 % (11.5-14.5); WBC 6.52 X 10*3/uL (4.50-10.00)
[2024-12-30 08:36] LABS: BUN/Creat Ratio 23.84 Ratio (12.00-20.00); Blood Urea Nitrogen 59.6 mg/dL (9.0-27.0); Carbon Dioxide 18.9 mmol/L (21.6-31.8); Chloride 107 mmol/L (96-109); Glucose 339 mg/dL (70-110); Potassium 5.8 mmol/L (3.5-5.5); Sodium 138 mmol/L (135-145)
--- NOTE | 2024-12-30 11:14 | P.PN ---
Subjective Progress Note Date: 12/30/24 Principal diagnosis: Dry gangrene Patient is seen and examined today as a follow-up. States pain has been well- controlled. He is postop day #1 for left great toe amputation. Lower extremity warm to the touch. Patient has been afebrile. Currently on oxygen, does have audible wheezing. Objective - Vital Signs Vital signs: Vital Signs Temp 97.6 F 12/30/24 07:06 Pulse 76 12/30/24 07:06 Resp 18 12/30/24 07:06 BP 151/65 12/30/24 07:06 Pulse Ox 100 12/30/24 07:06 FiO2 Intake & Output 12/29/24 12/30/24 12/30/24 18:59 06:59 18:59 Intake Total 300 Output Total 551 1000 Balance -251 -1000 Intake: IV 300 Output: Urine 550 1000 Estimated Blood Loss 1 Other: Voiding Method Indwelling Catheter Indwelling Catheter - Exam General appearance: The patient is alert, oriented, appears in no acute distress. HET: Head is normocephalic and atraumatic. Neck: Supple. Heart: Regular. Lungs: Equal expansion, normal respiratory effort. Wheezing. Abdomen: Soft, nontender, nondistended. Extremities: Left great toe amputation well-approximated with sutures no active bleeding. Surrounding tissue pink and dry. Neurological: No focal deficits. Strength and sensation are grossly intact. - Labs CBC & Chem 7: 12/30/24 03:03 12/30/24 03:03 Labs: Abnormal Lab Results - Last 24 Hours (Table) 12/29/24 12/29/24 12/29/24 Range/Units 11:06 11:06 11:10 RBC 3.56 L (4.30-5.90) m/uL Hgb 9.0 L (13.0-17.5) gm/dL Hct 33.3 L (39.0-53.0) % MCH (27.0-32.0) pg MCHC 26.9 L (31.0-37.0) g/dL RDW 17.4 H (11.5-15.5) % Lymphocytes # 0.5 L (1.0-4.8) k/uL Eosinophils # (0.04-0.35) X 10*3/uL Potassium 5.2 H (3.5-5.1) mmol/L Chloride 110 H (98-107) mmol/L Carbon Dioxide (21.6-31.8) mmol/L Anion Gap (4.00-12.00) mmol/L BUN 57 H (9-20) mg/dL Creatinine 2.24 H (0.66-1.25) mg/dL Est GFR (CKD-EPI) (>=60) BUN/Creatinine Ratio (12.00-20.00) Ratio Glucose 165 H (74-99) mg/dL POC Glucose (mg/dL) 164 H (70-110) mg/dL Calcium (8.7-10.3) mg/dL 12/29/24 12/29/24 12/30/24 Range/Units 16:44 20:56 03:03 RBC 2.79 L (4.30-5.90) m/uL Hgb 7.3 L (13.0-17.5) gm/dL Hct 26.0 L (39.0-53.0) % MCH 26.2 L (27.0-32.0) pg MCHC 28.1 L (31.0-37.0) g/dL RDW 17.2 H (11.5-15.5) % Lymphocytes # 0.31 L (1.0-4.8) k/uL Eosinophils # 0 L (0.04-0.35) X 10*3/uL Potassium (3.5-5.1) mmol/L Chloride (98-107) mmol/L Carbon Dioxide (21.6-31.8) mmol/L Anion Gap (4.00-12.00) mmol/L BUN (9-20) mg/dL Creatinine (0.66-1.25) mg/dL Est GFR (CKD-EPI) (>=60) BUN/Creatinine Ratio (12.00-20.00) Ratio Glucose (74-99) mg/dL POC Glucose (mg/dL) 219 H 358 H (70-110) mg/dL Calcium (8.7-10.3) mg/dL 12/30/24 12/30/24 Range/Units 03:03 06:28 RBC (4.30-5.90) m/uL Hgb (13.0-17.5) gm/dL Hct (39.0-53.0) % MCH (27.0-32.0) pg MCHC (31.0-37.0) g/dL RDW (11.5-15.5) % Lymphocytes # (1.0-4.8) k/uL Eosinophils # (0.04-0.35) X 10*3/uL Potassium 5.8 H (3.5-5.1) mmol/L Chloride (98-107) mmol/L Carbon Dioxide 18.9 L (21.6-31.8) mmol/L Anion Gap 12.10 H (4.00-12.00) mmol/L BUN 59.6 H (9-20) mg/dL Creatinine 2.5 H (0.66-1.25) mg/dL Est GFR (CKD-EPI) 26 L (>=60) BUN/Creatinine Ratio 23.84 H (12.00-20.00) Ratio Glucose 339 H (74-99) mg/dL POC Glucose (mg/dL) 379 H (70-110) mg/dL Calcium 8.0 L (8.7-10.3) mg/dL Microbiology - Last 24 Hours (Table) 12/27/24 16:15 Gram Stain - Preliminary Toe - Left First Wound Culture - Preliminary Proteus mirabilis Enterococcus faecalis Gram Neg Bacilli 12/27/24 16:15 Anaerobic Culture - Final Toe - Left First Anaerobic Gm Negative Bacilli Assessment and Plan Assessment: 1. Dry gangrene left great toe, partial amputation status post left great toe amputation 2. History of peripheral arterial disease with left femoropopliteal bypass with vein Plan: 1. Continue symptomatic and supportive care 2. Daily dressing change with Adaptic, 4 x 4 and Kerlix 3. He offload pressure to left foot, heel walk only 4. Offloading shoe to be worn when ambulating 5. Continue with recommendations from infectious disease. Discussed with them findings during surgery did not appear to be grossly infected. 6. Patient is cleared from vascular surgery for discharge Thank you for this consultation, we will continue to follow. The impression and plan of care has been dictated as directed. I performed a history and examination of this patient, discussed the same with the dictator. I agree with the dictator's note ,documented as a scribe. Any additional findings or plans will be noted.
[2024-12-30 11:17] LABS: Glucose,Whole Blood 421 mg/dL (70-110)
--- NOTE | 2024-12-30 12:37 | P.PN ---
Subjective Progress Note Date: 12/29/24 Principal diagnosis: Reason for follow-up is left big toe gangrene's/osteomyelitis Patient is a 74-year-old male with a past medical history significant for Coronary Artery Disease (CAD), Diabetes Mellitus, GERD/Reflux, Hyperlipidemia, Hypertension, Myocardial Infarction ([place]), Thyroid Disorder has been dealing with gangrene to the left big toe has not been brought back to the hospital with partial amputation of that gangrenous toe concerning for osteomyelitis. Patient is status post left big toe ray amputation completed on 12/29/2024. On today's evaluation that is 12/29/2024, Patient is afebrile patient is currently on room air and denies having any shortness of breath, the patient denies any chest pain or cough, the patient denies any nausea vomiting did not h ave any abdominal pain and no diarrhea. Patient white count is 6.0, creatinine is 2.24 cultures currently growing Proteus and Enterococcus faecalis Objective - Vital Signs Vital signs: Vital Signs Temp 97.5 F L 12/29/24 14:09 Pulse 80 12/29/24 14:09 Resp 16 12/29/24 14:09 BP 138/56 12/29/24 14:09 Pulse Ox 94 L 12/29/24 14:09 FiO2 Intake & Output 12/28/24 12/29/24 12/29/24 18:59 06:59 18:59 Intake Total 300 Output Total 2250 1525 301 Balance -2250 -1525 -1 Intake: IV 300 Output: Urine 2250 1525 300 Estimated Blood Loss 1 Other: Voiding Method Indwelling Catheter Indwelling Catheter Indwelling Catheter # Bowel Movements 1 - Exam GENERAL DESCRIPTION: An elderly male lying in bed in no distress RESPIRATORY SYSTEM: Unlabored breathing , decreased breath sounds at bases HEART: S1 S2 regular rate and rhythm , ABDOMEN: Soft , no tenderness EXTREMITIES: Left big toe amputation and is currently dressed - Labs CBC & Chem 7: 12/29/24 11:06 12/29/24 11:06 Labs: Abnormal Lab Results - Last 24 Hours (Table) 12/28/24 12/29/24 12/29/24 Range/Units 20:37 06:57 11:06 RBC 3.56 L (4.30-5.90) m/uL Hgb 9.0 L (13.0-17.5) gm/dL Hct 33.3 L (39.0-53.0) % MCHC 26.9 L (31.0-37.0) g/dL RDW 17.4 H (11.5-15.5) % Lymphocytes # 0.5 L (1.0-4.8) k/uL Potassium (3.5-5.1) mmol/L Chloride (98-107) mmol/L BUN (9-20) mg/dL Creatinine (0.66-1.25) mg/dL Glucose (74-99) mg/dL POC Glucose (mg/dL) 192 H 233 H (70-110) mg/dL 12/29/24 12/29/24 Range/Units 11:06 11:10 RBC (4.30-5.90) m/uL Hgb (13.0-17.5) gm/dL Hct (39.0-53.0) % MCHC (31.0-37.0) g/dL RDW (11.5-15.5) % Lymphocytes # (1.0-4.8) k/uL Potassium 5.2 H (3.5-5.1) mmol/L Chloride 110 H (98-107) mmol/L BUN 57 H (9-20) mg/dL Creatinine 2.24 H (0.66-1.25) mg/dL Glucose 165 H (74-99) mg/dL POC Glucose (mg/dL) 164 H (70-110) mg/dL Microbiology - Last 24 Hours (Table) 12/27/24 16:12 Urine Culture - Preliminary Urine,Voided 12/27/24 16:15 Gram Stain - Preliminary Toe - Left First Wound Culture - Preliminary Proteus mirabilis Enterococcus faecalis Assessment and Plan (1) Osteomyelitis of left foot Current Visit: Yes Status: Acute Code(s): M86.9 - OSTEOMYELITIS, UNSPECIFIED SNOMED Code(s): 9125920013211210 (2) Diabetic infection of left foot Current Visit: No Status: Acute Code(s): E11.628 - TYPE 2 DIABETES MELLITUS WITH OTHER SKIN COMPLICATIONS; L08.9 - LOCAL INFECTION OF THE SKIN AND SUBCUTANEOUS TISSUE, UNSP SNOMED Code(s): 603682341 Plan: 1patient presented to hospital with left big toe gangrene we seem to be falling off did have associated foul-smelling drainage concerning for underlying osteomyelitis/diabetic foot infection in this patient who has previously grown both MRSA and Pseudomonas aeruginosa 2-patient did have a renal insufficiency and high risk of nephrotoxicity from vancomycin 3-local culture have been obtained which are currently growing Proteus and En terococcus with sensitivities pending 4-patient is status post left big toe amputation currently being treated with Zosyn and daptomycin and monitor clinical course closely Dictation was produced using [employer] dictation software. please excuse any grammatical, word or spelling errors.
[2024-12-30] MEDS: IPRATROPIUM-ALBUTEROL 3 ML NEB INHALATION SCH (16:07)
[2024-12-30 16:43] LABS: Glucose,Whole Blood 222 mg/dL (70-110)
[2024-12-30] MEDS: SODIUM ZIRCONIUM CYCLOSILICATE 10 GM PACKET PO ONE (16:47)
[2024-12-30 19:57] LABS: Glucose,Whole Blood 272 mg/dL (70-110)
[2024-12-30] MEDS: HYDROcodone/APAP 7.5-325MG 1 EACH TAB PO PRN (20:16)
--- NOTE | 2024-12-31 02:27 | P.PN ---
Subjective Progress Note Date: 12/30/24 74-year-old male, history of coronary artery disease, hypertension, hyperlipidemia, hypothyroidism, diabetes mellitus, with a past medical history of diabetes presents to the emergency department for evaluation of left first toe duration. The patient states that this has been going on for a year. He n otes that it has gotten worse in his toe but now seems like it is going to "fall off "he follows with Dr. Romeo for this. He was told that it would fall off on its own but has not yet. Denies fever, chills. Blood work completed in ED reveals a WBC of 5.6, hemoglobin of 8.3 and platelet count of 279, sodium 141, potassium 4.9, BUNs/creatinine of 76/1.82, blood glucose of 257 UA reveals 3+ glucose, large amount of blood, large leukocyte esterase, many WBCs Left foot x-ray reveals erosive destruction of the mid to distal diaphysis of the first proximal phalanx with moderate surrounding soft tissue swelling, acute osteomyelitis is suspected --- Patient is scheduled for left big toe amputation this morning 12/30/2024 Patient is seen in follow-up with vascular surgery following status post left big toe amputation currently maintained on antibiotics with infectious disease following as well. Awaiting finalized cultures to determine discharge antibiotics. Patient is significantly wheezing on exam and was on fluids and will discontinue. Recommend breathing treatments and also low potassium diet as potassium was above 5. Per case management plan is to return to [facility] on discharge. Review of systems: Constitutional: No reports of fatigue, fever, or chills Cardiovascular: No reports of chest pain or palpitations Respiratory: No reports of shortness of breath, occasional cough GI: No reports of nausea, vomiting, or diarrhea : No reports of dysuria or retention Neurovascular: No reports of weakness or numbness All medications have been reviewed Physical exam: Gen: This is a 74-year-old male who is awake, alert and oriented x 2-3, well- developed, elderly appearing HEENT: Head is atraumatic, normocephalic. Pupils equal, round. Sclerae is anicteric. NECK: Supple. No JVD. No lymphadenopathy. No thyromegaly. LUNGS: Diminished breath sounds bilaterally with some audible expiratory wheezes and coarse scattered rhonchi. No intercostal retractions. HEART: Regular . ABDOMEN: Soft. Bowel sounds are present. No masses. No tenderness. EXTREMITIES: No pedal edema. No calf tenderness. NEUROLOGICAL: Patient is awake, alert and oriented x3. Cranial nerves 2 through 12 are grossly intact. Assessment 1. Osteomyelitis left foot with dry gangrene status post left great toe amputation -Patient is continued on IV Zosyn and vancomycin -Vascular surgery following status post left great toe amputation and ID following and cultures preliminary showing Pseudomonas, Proteus Mirabella's, and Enterococcus and awaiting finalized culture 2. Diabetic infection left foot; patient has been evaluated by ID and has been transitioned to IV daptomycin; continue current dose of Zosyn 3. Acute renal injury; BUN/creatinine elevated at 89/1.72 at time of admission and continuing to trend up to a creatinine of 1.82 -We will monitor strict MACK's, daily weights, renal function electrolytes; avoid nephrotoxins and hypotension 4. Hyperglycemia; diabetes mellitus type 2; monitor Accu-Cheks before every meal and at bedtime with insulin sliding scale 5. Hyperkalemia; likely related to acute renal injury; potassium at 5.2 upon arrival to ED; repeat potassium level at 4.9 -Will monitor electrolytes periodically 6. Hypertension; amlodipine 5 mg twice daily; metoprolol 50 mg twice daily DVT prophylaxis; SCDs/subcu heparin CODE STATUS; full code Plan: Patient is status post amputation of the left great toe with vascular surgery and has been cleared by vascular surgery for discharge planning Awaiting cultures and as mentioned previously preliminary showing Proteus, gram- negative, Enterococcus and will await finalized cultures to discuss with infectious disease regarding discharge planning Patient is at [facility] and will be returning there on discharge Potassium elevated and will give a dose of Lokelma and follow-up on repeat labs The impression and plan of care has been dictated by Aileen Poon, Nurse Practitioner as directed. Dr. Karlie MD I have performed a history and examination and MDM of this patient, discussed the same with the dictator, and agree with the dictator's assessment and plan as written ,documented as a scribe. Based on total visit time, I have performed more than 50% of the visit. Objective - Vital Signs Vital signs: Vital Signs Temp 97.6 F 12/30/24 07:06 Pulse 76 12/30/24 07:06 Resp 18 12/30/24 07:06 BP 151/65 12/30/24 07:06 Pulse Ox 100 12/30/24 07:06 FiO2 Intake & Output 12/29/24 12/30/24 12/30/24 18:59 06:59 18:59 Intake Total 300 Output Total 551 1000 Balance -251 -1000 Intake: IV 300 Output: Urine 550 1000 Estimated Blood Loss 1 Other: Voiding Method Indwelling Catheter Indwelling Catheter - Labs CBC & Chem 7: 12/30/24 03:03 12/30/24 03:03 Labs: Abnormal Lab Results - Last 24 Hours (Table) 12/29/24 12/29/24 12/29/24 Range/Units 11:06 11:06 11:10 RBC 3.56 L (4.30-5.90) m/uL Hgb 9.0 L (13.0-17.5) gm/dL Hct 33.3 L (39.0-53.0) % MCH (27.0-32.0) pg MCHC 26.9 L (31.0-37.0) g/dL RDW 17.4 H (11.5-15.5) % Lymphocytes # 0.5 L (1.0-4.8) k/uL Eosinophils # (0.04-0.35) X 10*3/uL Potassium 5.2 H (3.5-5.1) mmol/L Chloride 110 H (98-107) mmol/L Carbon Dioxide (21.6-31.8) mmol/L Anion Gap (4.00-12.00) mmol/L BUN 57 H (9-20) mg/dL Creatinine 2.24 H (0.66-1.25) mg/dL Est GFR (CKD-EPI) (>=60) BUN/Creatinine Ratio (12.00-20.00) Ratio Glucose 165 H (74-99) mg/dL POC Glucose (mg/dL) 164 H (70-110) mg/dL Calcium (8.7-10.3) mg/dL 12/29/24 12/29/24 12/30/24 Range/Units 16:44 20:56 03:03 RBC 2.79 L (4.30-5.90) m/uL Hgb 7.3 L (13.0-17.5) gm/dL Hct 26.0 L (39.0-53.0) % MCH 26.2 L (27.0-32.0) pg MCHC 28.1 L (31.0-37.0) g/dL RDW 17.2 H (11.5-15.5) % Lymphocytes # 0.31 L (1.0-4.8) k/uL Eosinophils # 0 L (0.04-0.35) X 10*3/uL Potassium (3.5-5.1) mmol/L Chloride (98-107) mmol/L Carbon Dioxide (21.6-31.8) mmol/L Anion Gap (4.00-12.00) mmol/L BUN (9-20) mg/dL Creatinine (0.66-1.25) mg/dL Est GFR (CKD-EPI) (>=60) BUN/Creatinine Ratio (12.00-20.00) Ratio Glucose (74-99) mg/dL POC Glucose (mg/dL) 219 H 358 H (70-110) mg/dL Calcium (8.7-10.3) mg/dL 12/30/24 12/30/24 Range/Units 03:03 06:28 RBC (4.30-5.90) m/uL Hgb (13.0-17.5) gm/dL Hct (39.0-53.0) % MCH (27.0-32.0) pg MCHC (31.0-37.0) g/dL RDW (11.5-15.5) % Lymphocytes # (1.0-4.8) k/uL Eosinophils # (0.04-0.35) X 10*3/uL Potassium 5.8 H (3.5-5.1) mmol/L Chloride (98-107) mmol/L Carbon Dioxide 18.9 L (21.6-31.8) mmol/L Anion Gap 12.10 H (4.00-12.00) mmol/L BUN 59.6 H (9-20) mg/dL Creatinine 2.5 H (0.66-1.25) mg/dL Est GFR (CKD-EPI) 26 L (>=60) BUN/Creatinine Ratio 23.84 H (12.00-20.00) Ratio Glucose 339 H (74-99) mg/dL POC Glucose (mg/dL) 379 H (70-110) mg/dL Calcium 8.0 L (8.7-10.3) mg/dL Microbiology - Last 24 Hours (Table) 12/27/24 16:15 Gram Stain - Preliminary Toe - Left First Wound Culture - Preliminary Proteus mirabilis Enterococcus faecalis Gram Neg Bacilli 12/27/24 16:15 Anaerobic Culture - Final Toe - Left First Anaerobic Gm Negative Bacilli
[2024-12-31 06:02] LABS: Glucose,Whole Blood 356 mg/dL (70-110)
[2024-12-31 08:41] LABS: Basophils # (A) 0.03 X 10*3/uL (0.00-0.10); Basophils % (A) 0.4 %; Eosinophils # (A) 0.26 X 10*3/uL (0.04-0.35); Eosinophils % (A) 3.8 %; HCT 25.4 % (39.6-50.0); HGB 7.1 g/dL (13.0-17.0); Lymphocytes # (A) 0.79 X 10*3/uL (0.90-5.00); Lymphocytes % (A) 11.4 %; Mean Platelet Volume 10.5 FL (9.5-12.2); Monocytes # (A) 0.55 X 10*3/uL (0.20-1.00); Monocytes % (A) 7.9 %; NRBC Per 100 WBC 0 X 10*3/uL (0.00-0.01); Neutrophils # (A) 5.27 X 10*3/uL (1.80-7.70); Neutrophils % (A) 76.1 %; Platelet Count 231 X 10*3/uL (140-440); RBC 2.73 X 10*6/uL (4.40-5.60); RDW 17.2 % (11.5-14.5); WBC 6.93 X 10*3/uL (4.50-10.00)
[2024-12-31 08:43] LABS: ALT 16 U/L (10-49); AST 15 U/L (14-35); Albumin 3.3 g/dL (3.8-4.9); Albumin/Globulin Ratio 0.82 Ratio (1.60-3.17); Alkaline Phosphatase 88 U/L (41-126); BUN/Creat Ratio 23.61 Ratio (12.00-20.00); Blood Urea Nitrogen 66.1 mg/dL (9.0-27.0); Calcium 7.9 mg/dL (8.7-10.3); Carbon Dioxide 20.3 mmol/L (21.6-31.8); Chloride 108 mmol/L (96-109); Glucose 288 mg/dL (70-110); Potassium 4.9 mmol/L (3.5-5.5); Sodium 138 mmol/L (135-145); Total Bilirubin 0.3 mg/dL (0.3-1.2); Total Protein 7.3 g/dL (6.2-8.2)
[2024-12-31] MEDS: INSULIN GLARGINE (LANTUS) 100 UNIT/ML SYR SQ SCH ×2 (08:46→21:06)
[2024-12-31 11:27] LABS: Glucose,Whole Blood 484 mg/dL (70-110)
--- NOTE | 2024-12-31 11:34 | P.PN ---
Subjective Progress Note Date: 12/31/24 Principal diagnosis: Dry gangrene Patient seen as a follow-up. No acute changes through the night. Awaiting antibiotic recommendations from infectious disease for discharge. Pain is well- controlled. Patient is afebrile. Objective - Vital Signs Vital signs: Vital Signs Temp 98.0 F 12/31/24 06:51 Pulse 79 12/31/24 09:21 Resp 18 12/31/24 06:51 BP 137/69 12/31/24 06:51 Pulse Ox 98 12/31/24 09:22 FiO2 Intake & Output 12/30/24 12/31/24 12/31/24 18:59 06:59 18:59 Intake Total 360 Output Total 1200 900 Balance -1200 -540 Intake: Oral 360 Output: Urine 1200 900 Other: Voiding Method Indwelling Catheter Indwelling Catheter # Bowel Movements 0 - Exam General appearance: The patient is alert, oriented, appears in no acute distress. HET: Head is normocephalic and atraumatic. Neck: Supple. Heart: Regular. Lungs: Equal expansion, normal respiratory effort. Wheezing. Abdomen: Soft, nontender, nondistended. Extremities: Left great toe amputation well-approximated with sutures no active bleeding. Surrounding tissue pink and dry. Neurological: No focal deficits. Strength and sensation are grossly intact. - Labs CBC & Chem 7: 12/31/24 03:59 12/31/24 03:59 Labs: Abnormal Lab Results - Last 24 Hours (Table) 12/30/24 12/30/24 12/30/24 Range/Units 11:15 16:40 19:56 RBC (4.40-5.60) X 10*6/uL Hgb (13.0-17.0) g/dL Hct (39.6-50.0) % MCH (27.0-32.0) pg MCHC (32.0-37.0) g/dL RDW (11.5-14.5) % Lymphocytes # (0.90-5.00) X 10*3/uL Carbon Dioxide (21.6-31.8) mmol/L BUN (9.0-27.0) mg/dL Creatinine (0.6-1.5) mg/dL Est GFR (CKD-EPI) (>=60) BUN/Creatinine Ratio (12.00-20.00) Ratio Glucose (70-110) mg/dL POC Glucose (mg/dL) 421 H 222 H 272 H (70-110) mg/dL Calcium (8.7-10.3) mg/dL Albumin (3.8-4.9) g/dL Globulin (1.6-3.3) g/dL Albumin/Globulin Ratio (1.60-3.17) Ratio 12/31/24 12/31/24 12/31/24 Range/Units 03:59 03:59 06:00 RBC 2.73 L (4.40-5.60) X 10*6/uL Hgb 7.1 L (13.0-17.0) g/dL Hct 25.4 L (39.6-50.0) % MCH 26.0 L (27.0-32.0) pg MCHC 28.0 L (32.0-37.0) g/dL RDW 17.2 H (11.5-14.5) % Lymphocytes # 0.79 L (0.90-5.00) X 10*3/uL Carbon Dioxide 20.3 L (21.6-31.8) mmol/L BUN 66.1 H (9.0-27.0) mg/dL Creatinine 2.8 H (0.6-1.5) mg/dL Est GFR (CKD-EPI) 23 L (>=60) BUN/Creatinine Ratio 23.61 H (12.00-20.00) Ratio Glucose 288 H (70-110) mg/dL POC Glucose (mg/dL) 356 H (70-110) mg/dL Calcium 7.9 L (8.7-10.3) mg/dL Albumin 3.3 L (3.8-4.9) g/dL Globulin 4.0 H (1.6-3.3) g/dL Albumin/Globulin Ratio 0.82 L (1.60-3.17) Ratio Microbiology - Last 24 Hours (Table) 12/27/24 16:12 Urine Culture - Final Urine,Voided Pseudomonas aeruginosa Proteus mirabilis 12/27/24 16:15 Gram Stain - Final Toe - Left First Wound Culture - Final Proteus mirabilis Enterococcus faecalis Pseudomonas aeruginosa Assessment and Plan Assessment: 1. Dry gangrene left great toe, partial amputation status post left great toe amputation 2. History of peripheral arterial disease with left femoropopliteal bypass with vein Plan: 1. Continue symptomatic and supportive care 2. Daily dressing change with Adaptic, 4 x 4 and Kerlix 3. He offload pressure to left foot, heel walk only 4. Offloading shoe to be worn when ambulating 5. Continue with recommendations from infectious disease. Discussed with them findings during surgery did not appear to be grossly infected. 6. Rest of medical management per primary medical team Thank you for this consultation, patient is cleared from vascular surgery for discharge. The impression and plan of care has been dictated as directed. Dr. Huertas I performed a history and examination of this patient, discussed the same with the dictator. I agree with the dictator's note ,documented as a scribe. Any additional findings or plans will be noted.
--- NOTE | 2024-12-31 13:13 | P.PN ---
Subjective Progress Note Date: 12/30/24 Principal diagnosis: Reason for follow-up is left big toe gangrene's/osteomyelitis Patient is a 74-year-old male with a past medical history significant for Coronary Artery Disease (CAD), Diabetes Mellitus, GERD/Reflux, Hyperlipidemia, Hypertension, Myocardial Infarction ([place]), Thyroid Disorder has been dealing with gangrene to the left big toe has not been brought back to the hospital with partial amputation of that gangrenous toe concerning for osteomyelitis. Patient is status post left big toe ray amputation completed on 12/29/2024. On today's evaluation that is 12/30/2024, patient has been afebrile, patient is breathing comfortably and is currently on 3 L current oxygen, patient denies having any significant cough no chest pain, patient denies nausea vomiting or diarrhea and no abdominal pain still complaining of pain to the left foot area. Patient white count 6.52, creatinine is 2.5 local culture currently growing Proteus Enterococcus faecalis and Pseudomonas Objective - Vital Signs Vital signs: Vital Signs Temp 97.6 F 12/30/24 07:06 Pulse 76 12/30/24 07:06 Resp 18 12/30/24 07:06 BP 151/65 12/30/24 07:06 Pulse Ox 100 12/30/24 07:06 FiO2 Intake & Output 12/29/24 12/30/24 12/30/24 18:59 06:59 18:59 Intake Total 300 Output Total 551 1000 Balance -251 -1000 Intake: IV 300 Output: Urine 550 1000 Estimated Blood Loss 1 Other: Voiding Method Indwelling Catheter Indwelling Catheter Indwelling Catheter - Exam GENERAL DESCRIPTION: An elderly male lying in bed in no distress RESPIRATORY SYSTEM: Unlabored breathing , decreased breath sounds at bases HEART: S1 S2 regular rate and rhythm , ABDOMEN: Soft , no tenderness EXTREMITIES: Left big toe amputation and is currently dressed - Labs CBC & Chem 7: 12/31/24 03:59 12/31/24 03:59 Labs: Abnormal Lab Results - Last 24 Hours (Table) 12/29/24 12/29/24 12/30/24 Range/Units 16:44 20:56 03:03 RBC 2.79 L (4.40-5.60) X 10*6/uL Hgb 7.3 L (13.0-17.0) g/dL Hct 26.0 L (39.6-50.0) % MCH 26.2 L (27.0-32.0) pg MCHC 28.1 L (32.0-37.0) g/dL RDW 17.2 H (11.5-14.5) % Lymphocytes # 0.31 L (0.90-5.00) X 10*3/uL Eosinophils # 0 L (0.04-0.35) X 10*3/uL Potassium (3.5-5.5) mmol/L Carbon Dioxide (21.6-31.8) mmol/L Anion Gap (4.00-12.00) mmol/L BUN (9.0-27.0) mg/dL Creatinine (0.6-1.5) mg/dL Est GFR (CKD-EPI) (>=60) BUN/Creatinine Ratio (12.00-20.00) Ratio Glucose (70-110) mg/dL POC Glucose (mg/dL) 219 H 358 H (70-110) mg/dL Calcium (8.7-10.3) mg/dL 12/30/24 12/30/24 12/30/24 Range/Units 03:03 06:28 11:15 RBC (4.40-5.60) X 10*6/uL Hgb (13.0-17.0) g/dL Hct (39.6-50.0) % MCH (27.0-32.0) pg MCHC (32.0-37.0) g/dL RDW (11.5-14.5) % Lymphocytes # (0.90-5.00) X 10*3/uL Eosinophils # (0.04-0.35) X 10*3/uL Potassium 5.8 H (3.5-5.5) mmol/L Carbon Dioxide 18.9 L (21.6-31.8) mmol/L Anion Gap 12.10 H (4.00-12.00) mmol/L BUN 59.6 H (9.0-27.0) mg/dL Creatinine 2.5 H (0.6-1.5) mg/dL Est GFR (CKD-EPI) 26 L (>=60) BUN/Creatinine Ratio 23.84 H (12.00-20.00) Ratio Glucose 339 H (70-110) mg/dL POC Glucose (mg/dL) 379 H 421 H (70-110) mg/dL Calcium 8.0 L (8.7-10.3) mg/dL Microbiology - Last 24 Hours (Table) 12/27/24 16:15 Gram Stain - Preliminary Toe - Left First Wound Culture - Preliminary Proteus mirabilis Enterococcus faecalis Gram Neg Bacilli 12/27/24 16:15 Anaerobic Culture - Final Toe - Left First Anaerobic Gm Negative Bacilli Assessment and Plan (1) Osteomyelitis of left foot Current Visit: Yes Status: Acute Code(s): M86.9 - OSTEOMYELITIS, UNSPECIFIED SNOMED Code(s): 8599184460973481 (2) Diabetic infection of left foot Current Visit: No Status: Acute Code(s): E11.628 - TYPE 2 DIABETES MELLITUS WITH OTHER SKIN COMPLICATIONS; L08.9 - LOCAL INFECTION OF THE SKIN AND SUBCUTANEOUS TISSUE, UNSP SNOMED Code(s): 087982727 Plan: 1patient presented to hospital with left big toe gangrene we seem to be falling off did have associated foul-smelling drainage concerning for underlying osteomyelitis/diabetic foot infection in this patient who has previously grown both MRSA and Pseudomonas aeruginosa 2-patient did have a renal insufficiency and high risk of nephrotoxicity from vancomycin 3-local culture have been obtained which are currently growing Proteus Pseudomonas and Enterococcus with sensitivities pending 4-patient is status post left big toe amputation we will go ahead and discontinue daptomycin as no MRSA continue with Zosyn short course while waiting for sensitivity finalize Dictation was produced using [employer] dictation software. please excuse any grammatical, word or spelling errors. Time with Patient: Less than 30
--- NOTE | 2024-12-31 13:15 | P.PN ---
Subjective Progress Note Date: 12/31/24 Principal diagnosis: Reason for follow-up is left big toe gangrene's/osteomyelitis Patient is a 74-year-old male with a past medical history significant for Coronary Artery Disease (CAD), Diabetes Mellitus, GERD/Reflux, Hyperlipidemia, Hypertension, Myocardial Infarction ([place]), Thyroid Disorder has been dealing with gangrene to the left big toe has not been brought back to the hospital with partial amputation of that gangrenous toe concerning for osteomyelitis. Patient is status post left big toe ray amputation completed on 12/29/2024. On today's evaluation that is 12/31/2024, Patient is afebrile this morning patient denies having any chest pain shortness of breath or cough, the patient is currently on 3 L current oxygen, patient denies any abdominal pain no perry rrhea no nausea no vomiting, the patient is still complaining of pain to the left big toe area. Patient white count 6.93 creatinine is 2.8 Objective - Vital Signs Vital signs: Vital Signs Temp 98.0 F 12/31/24 06:51 Pulse 70 12/31/24 12:29 Resp 18 12/31/24 06:51 BP 137/69 12/31/24 06:51 Pulse Ox 98 12/31/24 09:22 FiO2 Intake & Output 12/30/24 12/31/24 12/31/24 18:59 06:59 18:59 Intake Total 360 Output Total 1200 900 Balance -1200 -540 Intake: Oral 360 Output: Urine 1200 900 Other: Voiding Method Indwelling Catheter Indwelling Catheter Indwelling Catheter # Bowel Movements 0 - Exam GENERAL DESCRIPTION: An elderly male lying in bed in no distress RESPIRATORY SYSTEM: Unlabored breathing , decreased breath sounds at bases HEART: S1 S2 regular rate and rhythm , ABDOMEN: Soft , no tenderness EXTREMITIES: Left big toe amputation site wound is currently stitches intact, some swelling no drainage - Labs CBC & Chem 7: 12/31/24 03:59 12/31/24 03:59 Labs: Abnormal Lab Results - Last 24 Hours (Table) 12/30/24 12/30/24 12/31/24 Range/Units 16:40 19:56 03:59 RBC 2.73 L (4.40-5.60) X 10*6/uL Hgb 7.1 L (13.0-17.0) g/dL Hct 25.4 L (39.6-50.0) % MCH 26.0 L (27.0-32.0) pg MCHC 28.0 L (32.0-37.0) g/dL RDW 17.2 H (11.5-14.5) % Lymphocytes # 0.79 L (0.90-5.00) X 10*3/uL Carbon Dioxide (21.6-31.8) mmol/L BUN (9.0-27.0) mg/dL Creatinine (0.6-1.5) mg/dL Est GFR (CKD-EPI) (>=60) BUN/Creatinine Ratio (12.00-20.00) Ratio Glucose (70-110) mg/dL POC Glucose (mg/dL) 222 H 272 H (70-110) mg/dL Calcium (8.7-10.3) mg/dL Albumin (3.8-4.9) g/dL Globulin (1.6-3.3) g/dL Albumin/Globulin Ratio (1.60-3.17) Ratio 12/31/24 12/31/24 12/31/24 Range/Units 03:59 06:00 11:26 RBC (4.40-5.60) X 10*6/uL Hgb (13.0-17.0) g/dL Hct (39.6-50.0) % MCH (27.0-32.0) pg MCHC (32.0-37.0) g/dL RDW (11.5-14.5) % Lymphocytes # (0.90-5.00) X 10*3/uL Carbon Dioxide 20.3 L (21.6-31.8) mmol/L BUN 66.1 H (9.0-27.0) mg/dL Creatinine 2.8 H (0.6-1.5) mg/dL Est GFR (CKD-EPI) 23 L (>=60) BUN/Creatinine Ratio 23.61 H (12.00-20.00) Ratio Glucose 288 H (70-110) mg/dL POC Glucose (mg/dL) 356 H 484 H (70-110) mg/dL Calcium 7.9 L (8.7-10.3) mg/dL Albumin 3.3 L (3.8-4.9) g/dL Globulin 4.0 H (1.6-3.3) g/dL Albumin/Globulin Ratio 0.82 L (1.60-3.17) Ratio Microbiology - Last 24 Hours (Table) 12/27/24 16:12 Urine Culture - Final Urine,Voided Pseudomonas aeruginosa Proteus mirabilis 12/27/24 16:15 Gram Stain - Final Toe - Left First Wound Culture - Final Proteus mirabilis Enterococcus faecalis Pseudomonas aeruginosa Assessment and Plan (1) Osteomyelitis of left foot Current Visit: Yes Status: Acute Code(s): M86.9 - OSTEOMYELITIS, UNSPECIFIED SNOMED Code(s): 2042475045091977 (2) Diabetic infection of left foot Current Visit: No Status: Acute Code(s): E11.628 - TYPE 2 DIABETES MELLITUS WITH OTHER SKIN COMPLICATIONS; L08.9 - LOCAL INFECTION OF THE SKIN AND SUBCUTANEOUS TISSUE, UNSP SNOMED Code(s): 681870175 Plan: 1patient presented to hospital with left big toe gangrene we seem to be falling off did have associated foul-smelling drainage concerning for underlying osteomyelitis/diabetic foot infection in this patient who has previously grown both MRSA and Pseudomonas aeruginosa 2-patient did have a renal insufficiency and high risk of nephrotoxicity from vancomycin 3-local culture have been obtained which are currently growing Proteus Ps eudomonas and Enterococcus sensitive to Zosyn 4-patient to continue with Zosyn while inpatient short course of oral Cipro and Augmentin on discharge Dictation was produced using [place] dictation software. please excuse any grammatical, word or spelling errors.
--- NOTE | 2024-12-31 14:29 | XR ---
EXAMINATION TYPE: XR chest 1V portable DATE OF EXAM: 12/31/2024 1:34 PM COMPARISON: Chest radiographs from 03/31/2024 CLINICAL INDICATION: Male, 74 years old with history of shortness of breath; [facility] TECHNIQUE: XR chest 1V portable Frontal view of the chest. FINDINGS: Lungs/Pleura: There is no evidence of pleural effusion, focal consolidation, or pneumothorax. Pulmonary vascularity: Pulmonary vascular congestion. Heart/mediastinum: Cardiomediastinal silhouette is enlarged and stable. Musculoskeletal: No acute osseous pathology. Midline sternotomy wires are noted. IMPRESSION: Cardiomegaly and mild pulmonary vascular congestion. Correlate with BNP for congestive heart failure. [facility], , 12/31/2024 2:27 PM
[2024-12-31] MEDS: FUROSEMIDE 10 MG/ML 4 ML VIAL IV STA (15:49)
[2024-12-31 16:08] LABS: Glucose,Whole Blood 327 mg/dL (70-110)
[2024-12-31 19:47] LABS: Glucose,Whole Blood 104 mg/dL (70-110)
--- NOTE | 2025-01-01 05:32 | P.PN ---
Subjective Progress Note Date: 12/31/24 74-year-old male, history of coronary artery disease, hypertension, hyperlipidemia, hypothyroidism, diabetes mellitus, with a past medical history of diabetes presents to the emergency department for evaluation of left first toe duration. The patient states that this has been going on for a year. He n otes that it has gotten worse in his toe but now seems like it is going to "fall off "he follows with Dr. Romeo for this. He was told that it would fall off on its own but has not yet. Denies fever, chills. Blood work completed in ED reveals a WBC of 5.6, hemoglobin of 8.3 and platelet count of 279, sodium 141, potassium 4.9, BUNs/creatinine of 76/1.82, blood glucose of 257 UA reveals 3+ glucose, large amount of blood, large leukocyte esterase, many WBCs Left foot x-ray reveals erosive destruction of the mid to distal diaphysis of the first proximal phalanx with moderate surrounding soft tissue swelling, acute osteomyelitis is suspected --- Patient is scheduled for left big toe amputation this morning 12/30/2024 Patient is seen in follow-up with vascular surgery following status post left big toe amputation currently maintained on antibiotics with infectious disease following as well. Awaiting finalized cultures to determine discharge antibiotics. Patient is significantly wheezing on exam and was on fluids and will discontinue. Recommend breathing treatments and also low potassium diet as potassium was above 5. Per case management plan is to return to [facility] on discharge. 12/31/2024 Patient is seen in follow-up today continues to be audibly wheezing and having some shortness of breath. Patient is continued on breathing treatments and will make scheduled as well as as needed. IV fluids discontinued although patient continues to be short of breath obtain a chest x-ray for further evaluation. Kidney functions have worsened and will consult nephrology and appreciate input and recommendations. Creatinine is 2.8 today. Patient does have chronic kidney disease. Plan will be for return to [facility] and will need updated PT/OT therapy notes. Will obtain a BNP Review of systems: Constitutional: No reports of fatigue, fever, or chills Cardiovascular: No reports of chest pain or palpitations Respiratory: reports of shortness of breath, occasional cough GI: No reports of nausea, vomiting, or diarrhea : No reports of dysuria or retention Neurovascular: reports of generalized weakness and continued left foot pain All medications have been reviewed Physical exam: Gen: This is a 74-year-old male who is awake, alert and oriented x 2-3, well- developed, elderly appearing HEENT: Head is atraumatic, normocephalic. Pupils equal, round. Sclerae is anicteric. NECK: Supple. No JVD. No lymphadenopathy. No thyromegaly. LUNGS: Diminished breath sounds bilaterally with some audible expiratory wheezes and coarse scattered rhonchi. No intercostal retractions. HEART: Regular . ABDOMEN: Soft. Bowel sounds are present. No masses. No tenderness. EXTREMITIES: No pedal edema. No calf tenderness. NEUROLOGICAL: Patient is awake, alert and oriented x3. Cranial nerves 2 through 12 are grossly intact. Assessment 1. Osteomyelitis left foot with dry gangrene status post left great toe amputation -Patient is continued on IV Zosyn and vancomycin and will transition to oral antibiotics per ID recommendations on discharge -Vascular surgery following status post left great toe amputation and ID following and cultures preliminary showing Pseudomonas, Proteus Mirabella's, and Enterococcus and awaiting finalized culture 2. Diabetic infection left foot; patient has been evaluated by ID and has been transitioned to IV daptomycin; continue current dose of Zosyn 3. Acute renal injury; BUN/creatinine elevated at 89/1.72 at time of admission and continuing to trend up to a creatinine of 1.82 -We will monitor strict MACK's, daily weights, renal function electrolytes; avoid nephrotoxins and hypotension 4. Hyperglycemia; diabetes mellitus type 2; monitor Accu-Cheks before every meal and at bedtime with insulin sliding scale 5. Hyperkalemia; likely related to acute renal injury; potassium at 5.2 upon arrival to ED; repeat potassium level at 4.9 -Will monitor electrolytes periodically 6. Hypertension; amlodipine 5 mg twice daily; metoprolol 50 mg twice daily DVT prophylaxis; SCDs/subcu heparin CODE STATUS; full code Plan: Patient is status post amputation of the left great toe with vascular surgery and has been cleared by vascular surgery for discharge planning Awaiting cultures and as mentioned previously preliminary showing Proteus, gram- negative, Enterococcus and will await finalized cultures to discuss with infectious disease regarding discharge planning. Patient will likely transition to oral antibiotics on discharge Patient having some audible wheezes and reports of shortness of breath maintained on 2 to 3 L via nasal cannula and will obtain a chest x-ray as well as BNP for further evaluation. Patient kidney functions are trending up and will consult nephrology appreciate input and recommendations. Patient had a recent ultrasound and of last year showing no hydronephrosis. Patient is voiding Patient is at [facility] and will be returning there on discharge The impression and plan of care has been dictated by Aileen Poon, Nurse Practitioner as directed. Dr. Karlie MD I have performed a history and examination and MDM of this patient, discussed the same with the dictator, and agree with the dictator's assessment and plan as written ,documented as a scribe. Based on total visit time, I have performed more than 50% of the visit. Objective - Vital Signs Vital signs: Vital Signs Temp 98.0 F 12/31/24 06:51 Pulse 80 12/31/24 09:33 Resp 18 12/31/24 06:51 BP 137/69 12/31/24 06:51 Pulse Ox 98 12/31/24 09:22 FiO2 Intake & Output 12/30/24 12/31/24 12/31/24 18:59 06:59 18:59 Intake Total 360 Output Total 1200 900 Balance -1200 -540 Intake: Oral 360 Output: Urine 1200 900 Other: Voiding Method Indwelling Catheter Indwelling Catheter Indwelling Catheter # Bowel Movements 0 - Labs CBC & Chem 7: 12/31/24 03:59 12/31/24 03:59 Labs: Abnormal Lab Results - Last 24 Hours (Table) 12/30/24 12/30/24 12/30/24 Range/Units 11:15 16:40 19:56 RBC (4.40-5.60) X 10*6/uL Hgb (13.0-17.0) g/dL Hct (39.6-50.0) % MCH (27.0-32.0) pg MCHC (32.0-37.0) g/dL RDW (11.5-14.5) % Lymphocytes # (0.90-5.00) X 10*3/uL Carbon Dioxide (21.6-31.8) mmol/L BUN (9.0-27.0) mg/dL Creatinine (0.6-1.5) mg/dL Est GFR (CKD-EPI) (>=60) BUN/Creatinine Ratio (12.00-20.00) Ratio Glucose (70-110) mg/dL POC Glucose (mg/dL) 421 H 222 H 272 H (70-110) mg/dL Calcium (8.7-10.3) mg/dL Albumin (3.8-4.9) g/dL Globulin (1.6-3.3) g/dL Albumin/Globulin Ratio (1.60-3.17) Ratio 12/31/24 12/31/24 12/31/24 Range/Units 03:59 03:59 06:00 RBC 2.73 L (4.40-5.60) X 10*6/uL Hgb 7.1 L (13.0-17.0) g/dL Hct 25.4 L (39.6-50.0) % MCH 26.0 L (27.0-32.0) pg MCHC 28.0 L (32.0-37.0) g/dL RDW 17.2 H (11.5-14.5) % Lymphocytes # 0.79 L (0.90-5.00) X 10*3/uL Carbon Dioxide 20.3 L (21.6-31.8) mmol/L BUN 66.1 H (9.0-27.0) mg/dL Creatinine 2.8 H (0.6-1.5) mg/dL Est GFR (CKD-EPI) 23 L (>=60) BUN/Creatinine Ratio 23.61 H (12.00-20.00) Ratio Glucose 288 H (70-110) mg/dL POC Glucose (mg/dL) 356 H (70-110) mg/dL Calcium 7.9 L (8.7-10.3) mg/dL Albumin 3.3 L (3.8-4.9) g/dL Globulin 4.0 H (1.6-3.3) g/dL Albumin/Globulin Ratio 0.82 L (1.60-3.17) Ratio Microbiology - Last 24 Hours (Table) 12/27/24 16:12 Urine Culture - Final Urine,Voided Pseudomonas aeruginosa Proteus mirabilis 12/27/24 16:15 Gram Stain - Final Toe - Left First Wound Culture - Final Proteus mirabilis Enterococcus faecalis Pseudomonas aeruginosa
[2025-01-01 06:16] LABS: Glucose,Whole Blood 98 mg/dL (70-110)
[2025-01-01 09:32] LABS: Basophils # (A) 0.05 X 10*3/uL (0.00-0.10); Basophils % (A) 0.8 %; Eosinophils # (A) 0.52 X 10*3/uL (0.04-0.35); Eosinophils % (A) 8.6 %; HCT 25.4 % (39.6-50.0); HGB 7.3 g/dL (13.0-17.0); Lymphocytes # (A) 0.97 X 10*3/uL (0.90-5.00); MCH 26.2 pg (27.0-32.0); MCHC 28.7 g/dL (32.0-37.0); Mean Platelet Volume 10.1 FL (9.5-12.2); Monocytes # (A) 0.64 X 10*3/uL (0.20-1.00); Monocytes % (A) 10.6 %; NRBC Per 100 WBC 0 X 10*3/uL (0.00-0.01); Neutrophils # (A) 3.86 X 10*3/uL (1.80-7.70); Neutrophils % (A) 63.7 %; Platelet Count 228 X 10*3/uL (140-440); RBC 2.79 X 10*6/uL (4.40-5.60); RDW 17.2 % (11.5-14.5); WBC 6.06 X 10*3/uL (4.50-10.00)
[2025-01-01 09:46] LABS: BUN/Creat Ratio 24.72 Ratio (12.00-20.00); Blood Urea Nitrogen 61.8 mg/dL (9.0-27.0); Carbon Dioxide 21.9 mmol/L (21.6-31.8); Chloride 110 mmol/L (96-109); Glucose 101 mg/dL (70-110); Potassium 4.4 mmol/L (3.5-5.5); Sodium 141 mmol/L (135-145)
[2025-01-01 09:47] LABS: ALT 15 U/L (10-49); AST 16 U/L (14-35); Albumin 3.2 g/dL (3.8-4.9); Albumin/Globulin Ratio 0.76 Ratio (1.60-3.17); Alkaline Phosphatase 79 U/L (41-126); Globulin 4.2 g/dL (1.6-3.3); Total Bilirubin 0.2 mg/dL (0.3-1.2); Total Protein 7.4 g/dL (6.2-8.2)
--- NOTE | 2025-01-01 10:50 | P.PN ---
Subjective Progress Note Date: 01/01/25 Principal diagnosis: Dry gangrene Is seen and examined today as a follow-up. Still has some pain at the surgical site. He has been afebrile. Currently remains on IV antibiotics but plan according to infectious diseases discharge on oral antibiotics. No acute changes through the night. Objective - Vital Signs Vital signs: Vital Signs Temp 98.0 F 01/01/25 07:23 Pulse 76 01/01/25 09:14 Resp 18 01/01/25 07:48 BP 173/78 01/01/25 07:23 Pulse Ox 99 01/01/25 09:03 FiO2 Intake & Output 12/31/24 01/01/25 01/01/25 18:59 06:59 18:59 Output Total 4000 1400 Balance -4000 -1400 Output: Urine 4000 1400 Uretheral (Romeo) 4000 Other: Voiding Method Indwelling Catheter Indwelling Catheter Indwelling Catheter - Exam General appearance: The patient is alert, oriented, appears in no acute distress. HET: Head is normocephalic and atraumatic. Neck: Supple. Lungs: Equal expansion, normal respiratory effort. Wheezing. Abdomen: Soft, nontender, nondistended. Extremities: Left great toe amputation well-approximated with sutures no active bleeding. Surrounding tissue pink and dry. Neurological: Alert and oriented.. - Labs CBC & Chem 7: 01/01/25 05:27 01/01/25 05:27 Labs: Abnormal Lab Results - Last 24 Hours (Table) 12/31/24 12/31/24 12/31/24 Range/Units 03:59 11:26 16:04 RBC (4.40-5.60) X 10*6/uL Hgb (13.0-17.0) g/dL Hct (39.6-50.0) % MCH (27.0-32.0) pg MCHC (32.0-37.0) g/dL RDW (11.5-14.5) % Eosinophils # (0.04-0.35) X 10*3/uL Chloride (96-109) mmol/L BUN (9.0-27.0) mg/dL Creatinine (0.6-1.5) mg/dL Est GFR (CKD-EPI) (>=60) BUN/Creatinine Ratio (12.00-20.00) Ratio POC Glucose (mg/dL) 484 H 327 H (70-110) mg/dL Calcium (8.7-10.3) mg/dL Total Bilirubin (0.3-1.2) mg/dL NT-Pro-B Natriuret Pep 66001 H (0-125) pg/mL Albumin (3.8-4.9) g/dL Globulin (1.6-3.3) g/dL Albumin/Globulin Ratio (1.60-3.17) Ratio 01/01/25 01/01/25 Range/Units 05:27 05:27 RBC 2.79 L (4.40-5.60) X 10*6/uL Hgb 7.3 L (13.0-17.0) g/dL Hct 25.4 L (39.6-50.0) % MCH 26.2 L (27.0-32.0) pg MCHC 28.7 L (32.0-37.0) g/dL RDW 17.2 H (11.5-14.5) % Eosinophils # 0.52 H (0.04-0.35) X 10*3/uL Chloride 110 H (96-109) mmol/L BUN 61.8 H (9.0-27.0) mg/dL Creatinine 2.5 H (0.6-1.5) mg/dL Est GFR (CKD-EPI) 26 L (>=60) BUN/Creatinine Ratio 24.72 H (12.00-20.00) Ratio POC Glucose (mg/dL) (70-110) mg/dL Calcium 8.0 L (8.7-10.3) mg/dL Total Bilirubin 0.2 L (0.3-1.2) mg/dL NT-Pro-B Natriuret Pep (0-125) pg/mL Albumin 3.2 L (3.8-4.9) g/dL Globulin 4.2 H (1.6-3.3) g/dL Albumin/Globulin Ratio 0.76 L (1.60-3.17) Ratio Assessment and Plan Assessment: 1. Dry gangrene left great toe, partial amputation status post left great toe amputation 2. History of peripheral arterial disease with left femoropopliteal bypass with vein Plan: 1. Continue symptomatic and supportive care 2. Daily dressing change with Adaptic, 4 x 4 and Kerlix 3. He offload pressure to left foot, heel walk only 4. Offloading shoe to be worn when ambulating 5. Continue with recommendations from infectious disease. Discussed with them findings during surgery did not appear to be grossly infected. 6. Rest of medical management per primary medical team Thank you for this consultation, patient is cleared from vascular surgery for discharge. We will sign off at this time. The impression and plan of care has been dictated as directed. Dr. Romeo I performed a history and examination of this patient, discussed the same with the dictator. I agree with the dictator's note ,documented as a scribe. Any additional findings or plans will be noted.
--- NOTE | 2025-01-01 11:09 | US ---
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 No obstructive nephrolithiasis is see n. No obstructing right calculus noted. No masses are identified. The urinary bladder is anechoic. Sutton catheter in place. IMPRESSION: 1. No evidence for obstructing uropathy. 2. Right renal atrophy contrast. 3. Sutton catheter in place. [facility], , 01/01/2025 11:06 AM
[2025-01-01 11:16] LABS: Glucose,Whole Blood 153 mg/dL (70-110)
--- NOTE | 2025-01-01 12:21 | P.PN ---
Subjective Progress Note Date: 01/01/25 Principal diagnosis: Reason for follow-up is left big toe gangrene's/osteomyelitis Patient is a 74-year-old male with a past medical history significant for Coronary Artery Disease (CAD), Diabetes Mellitus, GERD/Reflux, Hyperlipidemia, Hypertension, Myocardial Infarction (VT), Thyroid Disorder has been dealing with gangrene to the left big toe has not been brought back to the hospital with partial amputation of that gangrenous toe concerning for osteomyelitis. Patient is status post left big toe ray amputation completed on 12/29/2024. On today's evaluation that is 01/01/2025,the patient denies any fever or any chills, patient is breathing comfortably on 3 L current oxygen, the patient denies chest pain shortness of breath and no significant cough, patient denies abdominal pain, no nausea vomiting or diarrhea Patient white count 6.06, creatinine is 2.5 culture with Proteus Enterococcus Pseudomonas and anaerobes Objective - Vital Signs Vital signs: Vital Signs Temp 98.0 F 01/01/25 07:23 Pulse 76 01/01/25 09:14 Resp 18 01/01/25 07:48 BP 173/78 01/01/25 07:23 Pulse Ox 99 01/01/25 09:03 FiO2 Intake & Output 12/31/24 01/01/25 01/01/25 18:59 06:59 18:59 Output Total 4000 1400 Balance -4000 -1400 Output: Urine 4000 1400 Uretheral (Romeo) 4000 Other: Voiding Method Indwelling Catheter Indwelling Catheter Indwelling Catheter - Exam GENERAL DESCRIPTION: An elderly male lying in bed in no distress RESPIRATORY SYSTEM: Unlabored breathing , decreased breath sounds at bases HEART: S1 S2 regular rate and rhythm , ABDOMEN: Soft , no tenderness EXTREMITIES: Left big toe amputation site wound is currently stitches intact, some swelling no drainage - Labs CBC & Chem 7: 01/01/25 05:27 01/01/25 05:27 Labs: Abnormal Lab Results - Last 24 Hours (Table) 12/31/24 12/31/24 12/31/24 Range/Units 03:59 11:26 16:04 RBC (4.40-5.60) X 10*6/uL Hgb (13.0-17.0) g/dL Hct (39.6-50.0) % MCH (27.0-32.0) pg MCHC (32.0-37.0) g/dL RDW (11.5-14.5) % Eosinophils # (0.04-0.35) X 10*3/uL Chloride (96-109) mmol/L BUN (9.0-27.0) mg/dL Creatinine (0.6-1.5) mg/dL Est GFR (CKD-EPI) (>=60) BUN/Creatinine Ratio (12.00-20.00) Ratio POC Glucose (mg/dL) 484 H 327 H (70-110) mg/dL Calcium (8.7-10.3) mg/dL Total Bilirubin (0.3-1.2) mg/dL NT-Pro-B Natriuret Pep 50222 H (0-125) pg/mL Albumin (3.8-4.9) g/dL Globulin (1.6-3.3) g/dL Albumin/Globulin Ratio (1.60-3.17) Ratio 01/01/25 01/01/25 Range/Units 05:27 05:27 RBC 2.79 L (4.40-5.60) X 10*6/uL Hgb 7.3 L (13.0-17.0) g/dL Hct 25.4 L (39.6-50.0) % MCH 26.2 L (27.0-32.0) pg MCHC 28.7 L (32.0-37.0) g/dL RDW 17.2 H (11.5-14.5) % Eosinophils # 0.52 H (0.04-0.35) X 10*3/uL Chloride 110 H (96-109) mmol/L BUN 61.8 H (9.0-27.0) mg/dL Creatinine 2.5 H (0.6-1.5) mg/dL Est GFR (CKD-EPI) 26 L (>=60) BUN/Creatinine Ratio 24.72 H (12.00-20.00) Ratio POC Glucose (mg/dL) (70-110) mg/dL Calcium 8.0 L (8.7-10.3) mg/dL Total Bilirubin 0.2 L (0.3-1.2) mg/dL NT-Pro-B Natriuret Pep (0-125) pg/mL Albumin 3.2 L (3.8-4.9) g/dL Globulin 4.2 H (1.6-3.3) g/dL Albumin/Globulin Ratio 0.76 L (1.60-3.17) Ratio Assessment and Plan (1) Osteomyelitis of left foot Current Visit: Yes Status: Acute Code(s): M86.9 - OSTEOMYELITIS, UNSPECIFIED SNOMED Code(s): 7880474004702544 (2) Diabetic infection of left foot Current Visit: No Status: Acute Code(s): E11.628 - TYPE 2 DIABETES MELLITUS WITH OTHER SKIN COMPLICATIONS; L08.9 - LOCAL INFECTION OF THE SKIN AND SUBCUTANEOUS TISSUE, UNSP SNOMED Code(s): 900408299 Plan: 1patient presented to hospital with left big toe gangrene we seem to be falling off did have associated foul-smelling drainage concerning for underlying osteomyelitis/diabetic foot infection in this patient who has 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 please excuse any grammatical, word or spelling errors.
--- NOTE | 2025-01-01 12:44 | P.NPCON ---
History of Present Illness - Reason for Consult acute renal failure - History of Present Illness Patient is a 74-year-old male with history of hypertension, coronary artery disease, hyperlipidemia, type 2 diabetes who is admitted to the hospital for evaluation of left big toe discoloration. Patient was noted to have gangrene and osteomyelitis and is status post left big toe amputation on 12/29/2024. Serum creatinine was 1.7 on admission and increased to 2.8 yesterday. It is down to 2.5 today. Previous creatinine around 2.0 to 1.9 mg/dL since July 2024. Underlying history of chronic kidney disease NKF stage IV No hypotension noted. Currently not on any IV fluids or diuretics. Patient received IV Lasix yesterday. Patient had been on vancomycin which is now discontinued. No recent levels no darren. Patient has an indwelling Romeo catheter. It appears that he may have had urine retention with 4 L of urine noted upon Romeo catheter placement. Past Medical History Past Medical History: Coronary Artery Disease (CAD), Diabetes Mellitus, GERD/Reflux, Hyperlipidemia, Hypertension, Myocardial Infarction (OR), Thyroid Disorder Additional Past Medical History / Comment(s): neuropathy, diabetic coma in 2000 and pt's sister has had legal guardianship since. Last Myocardial Infarction Date:: unknown History of Any Multi-Drug Resistant Organisms: None Reported Date of last positivie culture/infection: 11/23/23-MRSA; 09/25/23 ESBL MDRO Source:: Left Heel-MRSA; Blood-ESBL Past Surgical History: Appendectomy, Coronary Bypass/CABG, Heart Catheterization With Stent Additional Past Surgical History / Comment(s): Sister relays, "He had peripheral artery surgery too." Past Anesthesia/Blood Transfusion Reactions: No Reported Reaction Date of Last Stent Placement:: unknown Past Psychological History: Depression, Panic Disorder Smoking Status: Former smoker Past Alcohol Use History: Daily Past Drug Use History: Marijuana - Past Family History Father Family Medical History: Congestive Heart Failure (CHF) Mother Additional Family Medical History / Comment(s): of old age. Medications and Allergies Home Medications Medication Instructions Recorded Confirmed Type Aspirin [[place] Aspirin EC] 81 mg PO DAILY@1700 03/13/19 12/27/24 History Ferrous Sulfate [Iron (65 MG 325 mg PO TID@08,12,17 03/13/19 12/27/24 History Elemental)] Isosorbide Mononitrate ER [Imdur] 30 mg PO DAILY@0800 03/13/19 12/27/24 History Pantoprazole Sodium [Protonix] 40 mg PO DAILY@0800 03/13/19 12/27/24 History Ammonium Lactate Cream [Lac-Hydrin 1 applic TOPICAL BID PRN 04/13/23 12/27/24 History 12% Cream] Escitalopram [Lexapro] 10 mg PO DAILY@0800 04/13/23 12/27/24 History Glucerna Shake 1 can PO DAILY PRN 09/24/23 12/27/24 History Liquacel 30 ml PO BID@0800,1700 09/24/23 12/27/24 History Magnesium Hydroxide [Milk of 7,200 mg PO Q48H PRN 09/24/23 12/27/24 History Magnesia Concentrate] Metoprolol Tartrate [Lopressor] 50 mg PO BID@0800,1700 09/24/23 12/27/24 History bisacodyL [Dulcolax] 10 mg RECTAL DAILY PRN 09/24/23 12/27/24 History Cholecalciferol [Vitamin D3 (25 25 mcg PO DAILY@0800 12/19/23 12/27/24 History Mcg = 1000 Iu)] Famotidine [Pepcid] 20 mg PO DAILY@0800 12/19/23 12/27/24 History Levothyroxine Sodium [Synthroid] 150 mcg PO DAILY@0600 12/19/23 12/27/24 History Tamsulosin HCl [Flomax] 0.4 mg PO HS@2100 12/19/23 12/27/24 History Ondansetron [Zofran] 4 mg PO Q8H PRN 01/13/24 12/27/24 History amLODIPine [Norvasc] 5 mg PO BID@0800,2000 01/13/24 12/27/24 History Folic Acid 1 mg PO DAILY@1200 tab 01/23/24 12/27/24 Rx Nystatin 100,000 Unit/gm Powd 1 applic TOPICAL TID each 01/23/24 12/27/24 Rx [Mycostatin Powder] Acetaminophen [Tylenol 8 Hour] 650 mg PO Q6H PRN 02/16/24 12/27/24 History Ipratropium-Albuterol Nebulize 3 ml INHALATION RT-Q6H PRN 02/16/24 12/27/24 History [Duoneb 0.5 mg-3 mg/3 ml Soln] Multivitamins, Thera [Multivitamin 1 tab PO DAILY@1200 02/16/24 12/27/24 History (formulary)] INSULIN ASPART (NovoLOG) [NovoLOG 5 unit SQ W/LUNCH@1100 03/26/24 12/27/24 History (formulary)] INSULIN ASPART (NovoLOG) [NovoLOG See Protocol SQ 03/26/24 12/27/24 History (formulary)] ACHS@07,11,1630,2130 Petrolat,White/Javi/8-Hydroxyqu 1 applic TOPICAL TUTHSA 03/26/24 12/27/24 History [Bag [place]] Gabapentin [Neurontin] 400 mg PO HS@2100 #3 cap 04/05/24 12/27/24 Rx Lactulose [Cephulac] 20 gm PO DAILY PRN ml 04/05/24 12/27/24 Rx Atorvastatin [Lipitor] 20 mg PO HS@209912/27/24 12/27/24 History Dextrose Chew [Glucose Chew Tab] 16 gm PO DAILY PRN 12/27/24 12/27/24 History Dulaglutide [Trulicity] 4.5 mg SQ FR@0800 12/27/24 12/27/24 History HYDROcodone/APAP 5-325MG [Noble 1 tab PO TID@06,14,22 12/27/24 12/27/24 History 5-325] INSULIN ASPART (NovoLOG) [NovoLOG 8 unit SQ BID-W/MEALS@07,1630 12/27/24 12/27/24 History (formulary)] Insulin Glargine,Hum.rec.anlog 13 units SQ BID@0800,2100 12/27/24 12/27/24 History [Lantus Solostar Pen] [place] Packet 1 packet PO BID@0800,1700 12/27/24 12/27/24 History Petrolat,White/Javi/8-Hydroxyqu 1 applic TOPICAL MOWEFR 12/27/24 12/27/24 History [Bag [place]] Phytoplex Z-Guard External Paste 1 applic TOPICAL DAILY 12/27/24 12/27/24 History 57-17% Sennosides [Senokot] 8.6 mg PO BID@0800,1700 12/27/24 12/27/24 History Thiamine [Vitamin B-1] 100 mg PO BID@0800,1700 12/27/24 12/27/24 History Allergies Allergy/AdvReac Type Severity Reaction Status Date / Time No Known Allergies Allergy Verified 12/27/24 13:53 Physical Exam Vitals: Vital Signs Temp Pulse Pulse Pulse Resp BP Pulse Ox 01/01/25 12:34 80 01/01/25 09:14 76 01/01/25 09:03 72 99 01/01/25 07:48 74 73 18 01/01/25 07:23 98.0 F 73 18 173/78 96 01/01/25 00:05 97.7 F 75 20 131/63 96 12/31/24 20:59 70 12/31/24 20:50 68 12/31/24 19:02 98.0 F 68 18 115/72 96 12/31/24 16:33 80 12/31/24 16:25 77 12/31/24 13:08 97.5 F L 70 18 132/81 98 Intake and Output 12/31/24 01/01/25 01/01/25 22:59 06:59 14:59 Output Total 4000 1400 Balance -4000 -1400 Output: Urine 4000 1400 Uretheral (Romeo) 4000 Other: Voiding Method Indwelling Catheter Indwelling Catheter Patient is awake, comfortable, no acute distress Examination of the heart S1 and S2 Examination of the lungs bilateral breath sounds are heard Abdomen is soft nontender Examination of lower extremities shows left forefoot is wrapped, trace edema noted in right leg Results - Lab Results Most recent lab results Calcium 8.0 mg/dL (8.7-10.3) L 01/01/25 05:27 Magnesium 2.0 mg/dL (1.5-2.4) 01/01/25 05:27 01/01/25 05:27 01/01/25 05:27 Assessment and Plan Assessment: 1. Acute kidney injury, ATN from underlying infection and urine retention. Possible underlying vancomycin toxicity although no recent levels noted. Currently with indwelling Romeo catheter with good urine output and improving r enal function. No obstruction noted on ultrasound 2. Left big toe osteomyelitis and gangrene status post amputation on 12/29/2024 3. Anemia rule out iron deficiency 4. Chronic kidney disease stage IV with baseline creatinine around 1.9 to 2 mg/dL secondary to diabetic kidney disease Plan: Continue off of IV fluids Repeat labs in a.m. Continue with Romeo catheter Check iron profile Avoid nephrotoxic agents Thank you for the consultation. We will continue to follow the patient with you during his hospitalization.
[2025-01-01 16:31] LABS: Glucose,Whole Blood 232 mg/dL (70-110)
[2025-01-01 20:00] LABS: Glucose,Whole Blood 283 mg/dL (70-110)
[2025-01-02] MEDS: FUROSEMIDE 10 MG/ML 4 ML VIAL IVP STA (04:53)
--- NOTE | 2025-01-02 05:56 | P.PN ---
Subjective Progress Note Date: 01/01/25 74-year-old male, history of coronary artery disease, hypertension, hyperlipidemia, hypothyroidism, diabetes mellitus, with a past medical history of diabetes presents to the emergency department for evaluation of left first toe duration. The patient states that this has been going on for a year. He n otes that it has gotten worse in his toe but now seems like it is going to "fall off "he follows with Dr. Romeo for this. He was told that it would fall off on its own but has not yet. Denies fever, chills. Blood work completed in ED reveals a WBC of 5.6, hemoglobin of 8.3 and platelet count of 279, sodium 141, potassium 4.9, BUNs/creatinine of 76/1.82, blood glucose of 257 UA reveals 3+ glucose, large amount of blood, large leukocyte esterase, many WBCs Left foot x-ray reveals erosive destruction of the mid to distal diaphysis of the first proximal phalanx with moderate surrounding soft tissue swelling, acute osteomyelitis is suspected --- Patient is scheduled for left big toe amputation this morning 12/30/2024 Patient is seen in follow-up with vascular surgery following status post left big toe amputation currently maintained on antibiotics with infectious disease following as well. Awaiting finalized cultures to determine discharge antibiotics. Patient is significantly wheezing on exam and was on fluids and will discontinue. Recommend breathing treatments and also low potassium diet as potassium was above 5. Per case management plan is to return to [facility] on discharge. 12/31/2024 Patient is seen in follow-up today continues to be audibly wheezing and having some shortness of breath. Patient is continued on breathing treatments and will make scheduled as well as as needed. IV fluids discontinued although patient continues to be short of breath obtain a chest x-ray for further evaluation. Kidney functions have worsened and will consult nephrology and appreciate input and recommendations. Creatinine is 2.8 today. Patient does have chronic kidney disease. Plan will be for return to [facility] and will need updated PT/OT therapy notes. Will obtain a BNP 01/01/2025 Patient is seen in follow-up today a little less wheezing noted although continues to have shortness of breath maintained on 3 L although oxygen saturations are above 95%. Chest x-ray yesterday suggestive of vascular congestion and a dose of Lasix was given. Kidney functions trending up and nep hrology consulted. Creatinine slightly improved at 2.5 today and will give another dose of Lasix as patient BNP was 16,490. Infectious disease following and will continue IV antibiotics during hospitalization will transition to oral Cipro and Augmentin on discharge. Plan is to return to [facility]. Vascular surgery has cleared the patient for discharge recommending outpatient follow-up and will continue with local wound care to the left lower extremity. Review of systems: Constitutional: No reports of fatigue, fever, or chills Cardiovascular: No reports of chest pain or palpitations Respiratory: reports of shortness of breath although feels slightly improved, occasional cough GI: No reports of nausea, vomiting, or diarrhea : No reports of dysuria or retention Neurovascular: reports of generalized weakness and continued left foot pain All medications have been reviewed Physical exam: Gen: This is a 74-year-old male who is lethargic although arousable , alert and oriented x 2-3 baseline, well-developed, elderly appearing HEENT: Head is atraumatic, normocephalic. Pupils equal, round. Sclerae is anicteric. NECK: Supple. No JVD. No lymphadenopathy. No thyromegaly. LUNGS: Diminished breath sounds bilaterally with some audible expiratory wheezes and coarse scattered rhonchi. No intercostal retractions. HEART: Regular rate, S1, S2 are muffled. ABDOMEN: Soft. Nontender on palpation bowel sounds are present. No masses. No tenderness. EXTREMITIES: No pedal edema. No calf tenderness. Left lower extremity surgical dressing is dry and intact NEUROLOGICAL: Patient is awake, alert and oriented x3. Cranial nerves 2 through 12 are grossly intact. Diffusely weak Assessment -Osteomyelitis left foot with dry gangrene status post left great toe amputation -Diabetic infection left foot; present on admission with cultures growing Pseudomonas currently maintained on IV antibiotics and will transition to oral Cipro and Augmentin on discharge for 10 days per ID recommendations -Acute hypoxic respiratory failure, multifactorial possibly secondary to volume overload, BNP 16,000 -Congestive heart failure acute exacerbation, preserved EF, most recent was 50% in 2023 -COPD, acute exacerbation -Acute renal injury; creatinine 2.5 today and nephrology consulted -Diabetes mellitus, type II, uncontrolled with hyperglycemia -Hyperkalemia; likely related to acute renal injury; potassium at 5.2 upon arrival to ED, improving recommend low potassium diet -History of coronary artery disease with previous CABG -Hypertension -History of CVA GI prophylaxis DVT prophylaxis; SCDs/subcu heparin Full code Plan: Patient is status post amputation of the left great toe with vascular surgery and has been cleared by vascular surgery for discharge planning Cultures finalized showing Proteus, Pseudomonas, Enterococcus with infectious disease following and maintained on IV antibiotics and will transition to oral Cipro and Augmentin on discharge for 10 days Patient having some audible wheezes and reports of shortness of breath maintained on 2 to 3 L via nasal cannula chest x-ray was suggestive of pulmonary vascular congestion and BNP was 16,000, IV Lasix given x 1 as patient's kidney functions were elevated and nephrology consulted. Follow-up kidney and function today with a creatinine of 2.5 slightly improved from 2.9 yesterday. Will give Lasix x 1 once more Encourage incentive spirometer use and weaning FiO2 as tolerated. Patient is 99% on 2 to 3 L Patient is at [facility] and will be returning there on discharge with case management following and possible discharge in the next 24 to 48 hours The impression and plan of care has been dictated by Aileen Poon, Nurse Practitioner as directed. Dr. Karlie MD I have performed a history and examination and MDM of this patient, discussed the same with the dictator, and agree with the dictator's assessment and plan as written ,documented as a scribe. Based on total visit time, I have performed more than 50% of the visit. Objective - Vital Signs Vital signs: Vital Signs Temp 98.0 F 01/01/25 07:23 Pulse 76 01/01/25 09:14 Resp 18 01/01/25 07:48 BP 173/78 01/01/25 07:23 Pulse Ox 99 01/01/25 09:03 FiO2 Intake & Output 12/31/24 01/01/25 01/01/25 18:59 06:59 18:59 Output Total 4000 1400 Balance -4000 -1400 Output: Urine 4000 1400 Uretheral (Romeo) 4000 Other: Voiding Method Indwelling Catheter Indwelling Catheter Indwelling Catheter - Labs CBC & Chem 7: 01/01/25 05:27 01/01/25 05:27 Labs: Abnormal Lab Results - Last 24 Hours (Table) 12/31/24 12/31/24 12/31/24 Range/Units 03:59 11:26 16:04 RBC (4.40-5.60) X 10*6/uL Hgb (13.0-17.0) g/dL Hct (39.6-50.0) % MCH (27.0-32.0) pg MCHC (32.0-37.0) g/dL RDW (11.5-14.5) % Eosinophils # (0.04-0.35) X 10*3/uL Chloride (96-109) mmol/L BUN (9.0-27.0) mg/dL Creatinine (0.6-1.5) mg/dL Est GFR (CKD-EPI) (>=60) BUN/Creatinine Ratio (12.00-20.00) Ratio POC Glucose (mg/dL) 484 H 327 H (70-110) mg/dL Calcium (8.7-10.3) mg/dL Total Bilirubin (0.3-1.2) mg/dL NT-Pro-B Natriuret Pep 29422 H (0-125) pg/mL Albumin (3.8-4.9) g/dL Globulin (1.6-3.3) g/dL Albumin/Globulin Ratio (1.60-3.17) Ratio 01/01/25 01/01/25 Range/Units 05:27 05:27 RBC 2.79 L (4.40-5.60) X 10*6/uL Hgb 7.3 L (13.0-17.0) g/dL Hct 25.4 L (39.6-50.0) % MCH 26.2 L (27.0-32.0) pg MCHC 28.7 L (32.0-37.0) g/dL RDW 17.2 H (11.5-14.5) % Eosinophils # 0.52 H (0.04-0.35) X 10*3/uL Chloride 110 H (96-109) mmol/L BUN 61.8 H (9.0-27.0) mg/dL Creatinine 2.5 H (0.6-1.5) mg/dL Est GFR (CKD-EPI) 26 L (>=60) BUN/Creatinine Ratio 24.72 H (12.00-20.00) Ratio POC Glucose (mg/dL) (70-110) mg/dL Calcium 8.0 L (8.7-10.3) mg/dL Total Bilirubin 0.2 L (0.3-1.2) mg/dL NT-Pro-B Natriuret Pep (0-125) pg/mL Albumin 3.2 L (3.8-4.9) g/dL Globulin 4.2 H (1.6-3.3) g/dL Albumin/Globulin Ratio 0.76 L (1.60-3.17) Ratio
[2025-01-02 06:13] LABS: Glucose,Whole Blood 85 mg/dL (70-110)
--- NOTE | 2025-01-02 07:07 | CT ---
EXAMINATION TYPE: CT brain wo con DATE OF EXAM: 01/02/2025 6:52 AM COMPARISON: 06/06/2023 CLINICAL INDICATION: Male, 74 years old with history of Mentation Change, mentation change TECHNIQUE: Brain: Axial CT images of the brain were obtained with coronal and sagittal reformats created and rev iewed. Contrast used: None. Oral contrast used: None. CT DLP: 1125.6 mGycm, Automated exposure control for dose reduction was used. FINDINGS: Brain: Extra-axial spaces: No abnormal extra-axial fluid collections. Ventricular system: Dilatation in proportion to cerebral atrophy. Cerebral parenchyma: Cerebral atrophy. No acute intraparenchymal hemorrhage or mass effect. The sorenson -white junction is well differentiated. Scattered hypoattenuating areas are seen within the white mat ter. Cerebellum: Unremarkable. Mass effect: No evidence of midline shift. Intracranial vasculature: Atherosclerotic calcifications of the intracranial vessels. Soft tissues: Normal. Calvarium/osseous structures: No depressed skull fracture. Paranasal sinuses and mastoid air cells: Mild scattered paranasal sinus disease. Visualized orbits: Orbital contents are intact. 01/02/2025 7:02 AM,01/02/2025 6:52 AM,Zoey Daniels,CT brain wo con,[id number] IMPRESSION: No acute intracranial process. [facility], , 01/02/2025 7:05 AM
[2025-01-02] MEDS: HEPARIN SODIUM,PORCINE 5,000 UNIT/ML 1 ML VIAL SQ SCH (07:39)
[2025-01-02 08:13] VITALS: RESP 16
[2025-01-02 09:10] LABS: Basophils # (A) 0.06 X 10*3/uL (0.00-0.10); Eosinophils # (A) 0.58 X 10*3/uL (0.04-0.35); Eosinophils % (A) 10.1 %; HCT 30.8 % (39.6-50.0); HGB 8.8 g/dL (13.0-17.0); Lymphocytes # (A) 0.94 X 10*3/uL (0.90-5.00); Lymphocytes % (A) 16.3 %; MCH 26.3 pg (27.0-32.0); MCHC 28.6 g/dL (32.0-37.0); MCV 91.9 FL (80.0-97.0); Mean Platelet Volume 10.5 FL (9.5-12.2); Monocytes # (A) 0.63 X 10*3/uL (0.20-1.00); NRBC Per 100 WBC 0 X 10*3/uL (0.00-0.01); Neutrophils # (A) 3.52 X 10*3/uL (1.80-7.70); Neutrophils % (A) 61.3 %; Platelet Count 264 X 10*3/uL (140-440); RBC 3.35 X 10*6/uL (4.40-5.60); RDW 17.2 % (11.5-14.5); WBC 5.75 X 10*3/uL (4.50-10.00)
[2025-01-02 09:34] LABS: BUN/Creat Ratio 20.79 Ratio (12.00-20.00); Blood Urea Nitrogen 49.9 mg/dL (9.0-27.0); Calcium 8.5 mg/dL (8.7-10.3); Carbon Dioxide 22.9 mmol/L (21.6-31.8); Chloride 110 mmol/L (96-109); Glucose 52 mg/dL (70-110); Potassium 4.7 mmol/L (3.5-5.5); Sodium 144 mmol/L (135-145)
[2025-01-02 11:52] LABS: Glucose,Whole Blood 256 mg/dL (70-110)
--- NOTE | 2025-01-02 13:02 | P.PN ---
Subjective Patient is seen for follow-up for acute kidney injury. Renal function has improved with serum creatinine slightly lower at 2.4 today from peak of 2.8. Patient wants to go home 24-hour urine output at 4.1 L, has indwelling Romeo catheter. Objective - Vital Signs Vital signs: Vital Signs Temp 97.2 F L 01/02/25 07:32 Pulse 64 01/02/25 09:28 Resp 16 01/02/25 07:32 BP 180/78 01/02/25 07:32 Pulse Ox 98 01/02/25 09:19 FiO2 Intake & Output 01/01/25 01/02/25 01/02/25 18:59 06:59 18:59 Intake Total 540 Output Total 2099 1999 1699 Balance -2099 -1460 -170 Intake: Oral 540 Output: Urine 2099 1999 1699 Uretheral (Romeo) 1699 Other: Voiding Method Indwelling Catheter Indwelling Catheter Indwelling Catheter - Exam Patient is awake, comfortable, no acute distress Examination of the heart S1 and S2 Examination of the lungs bilateral breath sounds are heard Abdomen is soft nontender Examination of lower extremities shows left forefoot is wrapped, trace edema noted in right leg - Labs CBC & Chem 7: 01/02/25 05:31 01/02/25 05:31 Labs: Abnormal Lab Results - Last 24 Hours (Table) 01/01/25 01/01/25 01/02/25 Range/Units 16:29 19:58 05:31 RBC 3.35 L (4.40-5.60) X 10*6/uL Hgb 8.8 L (13.0-17.0) g/dL Hct 30.8 L (39.6-50.0) % MCH 26.3 L (27.0-32.0) pg MCHC 28.6 L (32.0-37.0) g/dL RDW 17.2 H (11.5-14.5) % Eosinophils # 0.58 H (0.04-0.35) X 10*3/uL Chloride (96-109) mmol/L BUN (9.0-27.0) mg/dL Creatinine (0.6-1.5) mg/dL Est GFR (CKD-EPI) (>=60) BUN/Creatinine Ratio (12.00-20.00) Ratio Glucose (70-110) mg/dL POC Glucose (mg/dL) 232 H 283 H (70-110) mg/dL Calcium (8.7-10.3) mg/dL 01/02/25 01/02/25 Range/Units 05:31 11:51 RBC (4.40-5.60) X 10*6/uL Hgb (13.0-17.0) g/dL Hct (39.6-50.0) % MCH (27.0-32.0) pg MCHC (32.0-37.0) g/dL RDW (11.5-14.5) % Eosinophils # (0.04-0.35) X 10*3/uL Chloride 110 H (96-109) mmol/L BUN 49.9 H (9.0-27.0) mg/dL Creatinine 2.4 H (0.6-1.5) mg/dL Est GFR (CKD-EPI) 28 L (>=60) BUN/Creatinine Ratio 20.79 H (12.00-20.00) Ratio Glucose 52 L (70-110) mg/dL POC Glucose (mg/dL) 256 H (70-110) mg/dL Calcium 8.5 L (8.7-10.3) mg/dL Assessment and Plan Assessment: 1. Acute kidney injury, ATN from underlying infection and urine retention. Possible underlying vancomycin toxicity although no recent levels noted. Currently with indwelling Romeo catheter with good urine output and improving renal function. No obstruction noted on ultrasound. UA shows 1+ protein, large blood and WBCs 135 2. Left big toe osteomyelitis and gangrene status post amputation on 12/29/2024 3. Anemia rule out iron deficiency 4. Chronic kidney disease stage IV with baseline creatinine around 1.9 to 2 mg/dL secondary to diabetic kidney disease 5. UTI with urine culture growing Pseudomonas and Proteus Plan: Continue off of IV fluids Repeat labs in a.m. Continue with Romeo catheter Check iron profile Avoid nephrotoxic agents
--- NOTE | 2025-01-02 14:26 | P.PN ---
Subjective Progress Note Date: 01/02/25 Principal diagnosis: Reason for follow-up is left big toe gangrene's/osteomyelitis Patient is a 74-year-old male with a past medical history significant for Coronary Artery Disease (CAD), Diabetes Mellitus, GERD/Reflux, Hyperlipidemia, Hypertension, Myocardial Infarction (VT), Thyroid Disorder has been dealing with gangrene to the left big toe has not been brought back to the hospital with partial amputation of that gangrenous toe concerning for osteomyelitis. Patient is status post left big toe ray amputation completed on 12/29/2024. On today's evaluation that is 01/02/2025,the patient remains to be afebrile, patient is on room air not requiring supplemental oxygen and denies any shortness of breath no chest pain or cough.Patient denies having any nausea or vomiting, no abdominal pain and no diarrhea. Still complaining of pain to the left foot area. Patient white count is 5.75, creatinine is 2.4 Objective - Vital Signs Vital signs: Vital Signs Temp 97.2 F L 01/02/25 07:32 Pulse 64 01/02/25 09:28 Resp 16 01/02/25 07:32 BP 180/78 01/02/25 07:32 Pulse Ox 98 01/02/25 09:19 FiO2 Intake & Output 01/01/25 01/02/25 01/02/25 18:59 06:59 18:59 Intake Total 540 Output Total 2099 1999 1700 Balance -2100 -1460 -1700 Intake: Oral 540 Output: Urine 2099 1999 1700 Uretheral (Romeo) 1700 Other: Voiding Method Indwelling Catheter Indwelling Catheter Indwelling Catheter - Exam GENERAL DESCRIPTION: An elderly male lying in bed in no distress RESPIRATORY SYSTEM: Unlabored breathing , decreased breath sounds at bases HEART: S1 S2 regular rate and rhythm , ABDOMEN: Soft , no tenderness EXTREMITIES: Left big toe amputation site wound is currently stitches intact, some swelling no drainage - Labs CBC & Chem 7: 01/02/25 05:31 01/02/25 05:31 Labs: Abnormal Lab Results - Last 24 Hours (Table) 01/01/25 01/01/25 01/02/25 Range/Units 16:29 19:58 05:31 RBC 3.35 L (4.40-5.60) X 10*6/uL Hgb 8.8 L (13.0-17.0) g/dL Hct 30.8 L (39.6-50.0) % MCH 26.3 L (27.0-32.0) pg MCHC 28.6 L (32.0-37.0) g/dL RDW 17.2 H (11.5-14.5) % Eosinophils # 0.58 H (0.04-0.35) X 10*3/uL Chloride (96-109) mmol/L BUN (9.0-27.0) mg/dL Creatinine (0.6-1.5) mg/dL Est GFR (CKD-EPI) (>=60) BUN/Creatinine Ratio (12.00-20.00) Ratio Glucose (70-110) mg/dL POC Glucose (mg/dL) 232 H 283 H (70-110) mg/dL Calcium (8.7-10.3) mg/dL 01/02/25 Range/Units 05:31 RBC (4.40-5.60) X 10*6/uL Hgb (13.0-17.0) g/dL Hct (39.6-50.0) % MCH (27.0-32.0) pg MCHC (32.0-37.0) g/dL RDW (11.5-14.5) % Eosinophils # (0.04-0.35) X 10*3/uL Chloride 110 H (96-109) mmol/L BUN 49.9 H (9.0-27.0) mg/dL Creatinine 2.4 H (0.6-1.5) mg/dL Est GFR (CKD-EPI) 28 L (>=60) BUN/Creatinine Ratio 20.79 H (12.00-20.00) Ratio Glucose 52 L (70-110) mg/dL POC Glucose (mg/dL) (70-110) mg/dL Calcium 8.5 L (8.7-10.3) mg/dL Assessment and Plan (1) Osteomyelitis of left foot Current Visit: Yes Status: Acute Code(s): M86.9 - OSTEOMYELITIS, UNSPECIFIED SNOMED Code(s): 0101860140218807 (2) Diabetic infection of left foot Current Visit: No Status: Acute Code(s): E11.628 - TYPE 2 DIABETES MELLITUS WITH OTHER SKIN COMPLICATIONS; L08.9 - LOCAL INFECTION OF THE SKIN AND SUBCUTANEOUS TISSUE, UNSP SNOMED Code(s): 841240209 Plan: 1patient presented to hospital with left big toe gangrene we seem to be falling off did have associated foul-smelling drainage concerning for underlying osteomyelitis/diabetic foot infection in this patient who has previously grown both MRSA and Pseudomonas aeruginosa 2-patient did have a renal insufficiency and high risk of nephrotoxicity from vancomycin 3-local culture have been obtained which are currently growing Proteus Pseudomonas and Enterococcus sensitive to Zosyn 4-patient will be treated Zosyn while inpatient however consider short course of oral Cipro and Augmentin on discharge Dictation was produced using [employer] dictation software. please excuse any grammatical, word or spelling errors. Time with Patient: Less than 30
--- NOTE | 2025-01-02 14:54 | P.DS ---
Providers Date of admission: 12/27/24 13:46 Attending physician: Cori Alvarado MD Consults: 12/27/24 15:08 Consult Physician Routine Consulting Provider: Candido Fairbanks Consult Reason/Comments: osteomyelitis of toe Do you want consulting provider notified?: Yes 12/31/24 10:32 Consult Physician Urgent Consulting Provider: Nisha Chaves Consult Reason/Comments: ROSA, chronic kidney disease Do you want consulting provider notified?: Yes Primary care physician: Mika Bell [facility] Course: Final Diagnosis -Osteomyelitis left foot with dry gangrene status post left great toe amputation -Diabetic infection left foot; present on admission with cultures growing Pseudomonas currently maintained on IV antibiotics and will transition to oral Cipro and Augmentin on discharge for 10 days per ID recommendations -Acute hypoxic respiratory failure, multifactorial possibly secondary to volume overload, BNP 16,000 -Congestive heart failure acute exacerbation, preserved EF, most recent was 50% in 2023 -COPD, acute exacerbation -Acute renal injury; creatinine 2.5 today and nephrology consulted -Diabetes mellitus, type II, uncontrolled with hyperglycemia -Hyperkalemia; likely related to acute renal injury; potassium at 5.2 upon arrival to ED, improving recommend low potassium diet -History of coronary artery disease with previous CABG -Hypertension -History of CVA Discharge Disposition Patient stable for return to [facility] rehabilitation. Patient will continue a 10-day course of oral antibiotics with Cipro twice daily and Augmentin twice daily. Patient will continue local wound care to the right great toe wound with Adaptic 4 x 4 and Kerlix. Patient is heel walk only and should be wearing an offloading shoe while ambulating. No tub bathing. Repeat blood work in 2 to 3 days. Patient requires close follow-up with vascular surgery Dr. Romeo and Dr. Fairbanks with infectious disease on discharge. [facility] Hospital Course This is a 74-year-old male, history of coronary artery disease, hypertension, hyperlipidemia, hypothyroidism, diabetes mellitus, with a past medical history of diabetes presents to the emergency department for evaluation of left first toe duration. The patient states that this has been going on for a year. He notes that it has gotten worse in his toe but now seems like it is going to "fall off "he follows with Dr. Rmoeo for this. He was told that it would fall off on its own but has not yet. Denies fever, chills. Blood work completed in ED reveals a WBC of 5.6, hemoglobin of 8.3 and platelet count of 279, sodium 141, potassium 4.9, BUNs/creatinine of 76/1.82, blood glucose of 257. UA reveals 3+ glucose, large amount of blood, large leukocyte esterase, many WBCs. Left foot x-ray reveals erosive destruction of the mid to distal diaphysis of the first proximal phalanx with moderate surrounding soft tissue swelling, acute osteomyelitis is suspected. He was started on IV antibiotics empirically and admitted to the hospital or surgery and infectious disease were consulted. Patient underwent left great toe amputation. His renal function did worsen and nephrology was consulted. Creatinine peaked at 2.8 and has been slowly normalizing. He does have a history of chronic kidney disease. Patient was noted to have some shortness of breath was on 3 L of oxygen his chest x-ray did suggest vascular congestion and a dose of Lasix was given. Creatinine is better at 2.5 and patient was given a second dose of IV Lasix as his BNP was elevated at 16,490. Patient was cleared by due to discharge on oral Augmentin and oral ciprofloxacin for a 10-day course twice daily. His wound cultures come back positive for Proteus Enterococcus and Pseudomonas. Additionally he had a urine culture that was positive for Pseudomonas and Proteus. Patient did have indwelling Romeo catheter and has been having significant urinary output with 4 L out at the insertion of the indwelling Romeo catheter and urine is clear yellow. He did have a positive anaerobic culture of anaerobic gram-negative bacilli as well. Nephrology recommending to patient to follow-up in the office in 1 week. Please see medication reconciliation for a list of current medications. Thank you for allowing us to participate in the care of this patient. The impression and plan of care has been dictated by Silvia Ralph, Nurse Practitioner as directed. Dr. Karlie MD I have performed a history and physical examination and medical decision making of this patient, discussed the same with the dictator, and agree with the di ctators assessment and plan as written, documented as a scribe. Based on total visit time, I have performed more than 50% of this visit. Patient Condition at Discharge: Stable Plan - Discharge Summary Discharge Rx Participant: Yes New Discharge Prescriptions: New Heparin Sodium,Porcine (1 ml) [Heparin Sodium] 5,000 unit SQ Q12HR each HYDROcodone/APAP 7.5-325MG [[place] 7.5-325] 1 each PO Q6HR PRN #6 tab PRN Reason: Pain Amoxic-Pot Clav 875-125Mg [Augmentin 875-125] 1 tab PO Q12HR 10 Days #20 tab Ciprofloxacin HCl [Cipro] 500 mg PO Q12HR 10 Days #20 tab Continue Isosorbide Mononitrate ER [Imdur] 30 mg PO DAILY@0800 Pantoprazole Sodium [Protonix] 40 mg PO DAILY@0800 Ferrous Sulfate [Iron (65 MG Elemental)] 325 mg PO TID@08,12,17 Aspirin [[place] Aspirin EC] 81 mg PO DAILY@1700 Ammonium Lactate Cream [Lac-Hydrin 12% Cream] 1 applic TOPICAL BID PRN PRN Reason: Dry Skin Escitalopram [Lexapro] 10 mg PO DAILY@0800 bisacodyL [Dulcolax] 10 mg RECTAL DAILY PRN PRN Reason: Constipation Magnesium Hydroxide [Milk of Magnesia Concentrate] 7,200 mg PO Q48H PRN PRN Reason: Constipation Famotidine [Pepcid] 20 mg PO DAILY@0800 Tamsulosin HCl [Flomax] 0.4 mg PO HS@2100 Ondansetron [Zofran] 4 mg PO Q8H PRN PRN Reason: Nausea And Vomiting Folic Acid 1 mg PO DAILY@1200 tab Nystatin 100,000 Unit/gm Powd [Mycostatin Powder] 1 applic TOPICAL TID each Multivitamins, Thera [Multivitamin (formulary)] 1 tab PO DAILY@1200 Acetaminophen [Tylenol 8 Hour] 650 mg PO Q6H PRN PRN Reason: general discomfort INSULIN ASPART (NovoLOG) [NovoLOG (formulary)] See Protocol SQ ACHS@07,11,1630,2130 Sennosides [Senokot] 8.6 mg PO BID@0800,1700 INSULIN ASPART (NovoLOG) [NovoLOG (formulary)] 8 unit SQ BID-W/MEALS@07,1630 Insulin Glargine,Hum.rec.anlog [Lantus Solostar Pen] 13 units SQ BID@0800,210 0 Dulaglutide [Trulicity] 4.5 mg SQ FR@0800 Atorvastatin [Lipitor] 20 mg PO HS@2100 Metoprolol Tartrate [Lopressor] 50 mg PO BID@0800,1700 Liquacel 30 ml PO BID@0800,1700 Glucerna Shake 1 can PO DAILY PRN PRN Reason: low cbg Levothyroxine Sodium [Synthroid] 150 mcg PO DAILY@0600 Cholecalciferol [Vitamin D3 (25 Mcg = 1000 Iu)] 25 mcg PO DAILY@0800 amLODIPine [Norvasc] 5 mg PO BID@0800,2000 Ipratropium-Albuterol Nebulize [Duoneb 0.5 mg-3 mg/3 ml Soln] 3 ml INHALATION RT-Q6H PRN PRN Reason: Shortness Of Breath INSULIN ASPART (NovoLOG) [NovoLOG (formulary)] 5 unit SQ W/LUNCH@1100 Petrolat,White/Javi/8-Hydroxyqu [Bag [employer]] 1 applic TOPICAL TUTHSA Lactulose [Cephulac] 20 gm PO DAILY PRN ml PRN Reason: Constipation Gabapentin [Neurontin] 400 mg PO HS@2100 #3 cap Dextrose Chew [Glucose Chew Tab] 16 gm PO DAILY PRN PRN Reason: low blood sugar Thiamine [Vitamin B-1] 100 mg PO BID@0800,1700 [place] Packet 1 packet PO BID@0800,1700 Petrolat,White/Javi/8-Hydroxyqu [Bag [employer]] 1 applic TOPICAL MOWEFR Phytoplex Z-Guard External Paste 57-17% 1 applic TOPICAL DAILY Discontinued HYDROcodone/APAP 5-325MG [[place] 5-325] 1 tab PO TID@,, Discharge Medication List Aspirin [[place] Aspirin EC] 81 mg PO DAILY@1700 03/13/19 [History] Ferrous Sulfate [Iron (65 MG Elemental)] 325 mg PO TID@08,12,17 03/13/19 [History] Isosorbide Mononitrate ER [Imdur] 30 mg PO DAILY@0800 03/13/19 [History] Pantoprazole Sodium [Protonix] 40 mg PO DAILY@0800 03/13/19 [History] Ammonium Lactate Cream [Lac-Hydrin 12% Cream] 1 applic TOPICAL BID PRN 04/13/23 [History] Escitalopram [Lexapro] 10 mg PO DAILY@0800 04/13/23 [History] Glucerna Shake 1 can PO DAILY PRN 09/24/23 [History] Liquacel 30 ml PO BID@0800,1700 09/24/23 [History] Magnesium Hydroxide [Milk of Magnesia Concentrate] 7,200 mg PO Q48H PRN 09/24/23 [History] Metoprolol Tartrate [Lopressor] 50 mg PO BID@0800,1700 09/24/23 [History] bisacodyL [Dulcolax] 10 mg RECTAL DAILY PRN 09/24/23 [History] Cholecalciferol [Vitamin D3 (25 Mcg = 1000 Iu)] 25 mcg PO DAILY@0800 12/19/23 [History] Famotidine [Pepcid] 20 mg PO DAILY@0800 12/19/23 [History] Levothyroxine Sodium [Synthroid] 150 mcg PO DAILY@0600 12/19/23 [History] Tamsulosin HCl [Flomax] 0.4 mg PO HS@2100 12/19/23 [History] Ondansetron [Zofran] 4 mg PO Q8H PRN 01/13/24 [History] amLODIPine [Norvasc] 5 mg PO BID@0800,2000 01/13/24 [History] Folic Acid 1 mg PO DAILY@1200 tab 01/23/24 [Rx] Nystatin 100,000 Unit/gm Powd [Mycostatin Powder] 1 applic TOPICAL TID each [Rx] Acetaminophen [Tylenol 8 Hour] 650 mg PO Q6H PRN 02/16/24 [History] Ipratropium-Albuterol Nebulize [Duoneb 0.5 mg-3 mg/3 ml Soln] 3 ml INHALATION RT-Q6H PRN 02/16/24 [History] Multivitamins, Thera [Multivitamin (formulary)] 1 tab PO DAILY@1200 02/16/24 [History] INSULIN ASPART (NovoLOG) [NovoLOG (formulary)] 5 unit SQ W/LUNCH@1100 03/26/24 [History] INSULIN ASPART (NovoLOG) [NovoLOG (formulary)] See Protocol SQ ACHS@07,11,1630,2130 03/26/24 [History] Petrolat,White/Javi/8-Hydroxyqu [Bag [employer]] 1 applic TOPICAL TUTHSA 03/26/24 [History] Gabapentin [Neurontin] 400 mg PO HS@2100 #3 cap 04/05/24 [Rx] Lactulose [Cephulac] 20 gm PO DAILY PRN ml 04/05/24 [Rx] Atorvastatin [Lipitor] 20 mg PO HS@2100 12/27/24 [History] Dextrose Chew [Glucose Chew Tab] 16 gm PO DAILY PRN 12/27/24 [History] Dulaglutide [Trulicity] 4.5 mg SQ FR@0800 12/27/24 [History] INSULIN ASPART (NovoLOG) [NovoLOG (formulary)] 8 unit SQ BID-W/MEALS@07,1630 12/27/24 [History] Insulin Glargine,Hum.rec.anlog [Lantus Solostar Pen] 13 units SQ BID@0800,2100 12/27/24 [History] [place] Packet 1 packet PO BID@0800,1700 12/27/24 [History] Petrolat,White/Javi/8-Hydroxyqu [Bag [employer]] 1 applic TOPICAL MOWEFR 12/27/24 [History] Phytoplex Z-Guard External Paste 57-17% 1 applic TOPICAL DAILY 12/27/24 [History] Sennosides [Senokot] 8.6 mg PO BID@0800,1700 12/27/24 [History] Thiamine [Vitamin B-1] 100 mg PO BID@0800,1700 12/27/24 [History] Amoxic-Pot Clav 875-125Mg [Augmentin 875-125] 1 tab PO Q12HR 10 Days #20 tab 01/02/25 [Rx] Ciprofloxacin HCl [Cipro] 500 mg PO Q12HR 10 Days #20 tab 01/02/25 [Rx] HYDROcodone/APAP 7.5-325MG [[place] 7.5-325] 1 each PO Q6HR PRN #6 tab 01/02/25 [Rx] Heparin Sodium,Porcine (1 ml) [Heparin Sodium] 5,000 unit SQ Q12HR each 01/02/25 [Rx] Follow up Appointment(s)/Referral(s): Nisha Chaves MD [STAFF PHYSICIAN] - 1 Week Mika Bell DO [Primary Care Provider] - 1-2 days Pricila Otero DO [STAFF PHYSICIAN] - 2 Weeks Candido Fairbanks MD [STAFF PHYSICIAN] - 1 Week Ambulatory/Diagnostic Orders: Basic Metabolic Panel [LAB.AMB] Time Frame: 3 Days, Location: None Selected Complete Blood Count w/diff [LAB.AMB] Location: None Selected Activity/Diet/Wound Care/Special Instructions: Up as tolerated, offload weight on forefoot. Heel walk only. Recommend wearing offloading shoe while ambulating Dressing change daily as needed with Adaptic, 4 x 4 and wrapped with Kerlix and secure with tape May shower no tub bathing, watch surgical incision site for signs of infection including redness, drainage, fever 100.4 or greater Continue oral augmentin and oral cipro twice daily for the next 10 days. Repeat blood work in 2 to 3 days.
[2025-01-02 15:02] VITALS: BP 152/68; PULSE 65; TEMP 97.9
[2025-01-02 16:44] LABS: Glucose,Whole Blood 184 mg/dL (70-110)
== END 2025-01-02 17:08 | DRG 239 ==
LOC: EC 12:02 → 1SOBS 13:46 → 4SSUR 19:12
PROVIDERS: ADMIT Internal Medicine; ATTEND Internal Medicine
PROC: 0Y6N0Z9 Detachment at Left Foot, Partial 1st Ray, Open Approach (ICD-10-PCS; principal; 2024-12-29 09:00)
DX: E11.52 Type 2 diabetes mellitus with diabetic peripheral angiopathy with gangrene (principal); I50.33 Acute on chronic diastolic (congestive) heart failure; J96.01 Acute respiratory failure with hypoxia; N17.0 Acute kidney failure with tubular necrosis; B96.5 Pseudomonas (aeruginosa) (mallei) (pseudomallei) as the cause of diseases classified elsewhere; E11.22 Type 2 diabetes mellitus with diabetic chronic kidney disease; B96.4 Proteus (mirabilis) (morganii) as the cause of diseases classified elsewhere; I13.0 Hypertensive heart and chronic kidney disease with heart failure and stage 1 through stage 4 chronic kidney disease, or unspecified chronic kidney disease; J44.1 Chronic obstructive pulmonary disease with (acute) exacerbation; N18.4 Chronic kidney disease, stage 4 (severe); E03.9 Hypothyroidism, unspecified; I70.209 Unspecified atherosclerosis of native arteries of extremities, unspecified extremity; M86.172 Other acute osteomyelitis, left ankle and foot; N39.0 Urinary tract infection, site not specified; L03.116 Cellulitis of left lower limb; E11.69 Type 2 diabetes mellitus with other specified complication; E11.65 Type 2 diabetes mellitus with hyperglycemia; Z79.4 Long term (current) use of insulin; E11.40 Type 2 diabetes mellitus with diabetic neuropathy, unspecified; E11.628 Type 2 diabetes mellitus with other skin complications; E87.5 Hyperkalemia; E78.5 Hyperlipidemia, unspecified; I25.10 Atherosclerotic heart disease of native coronary artery without angina pectoris; I25.2 Old myocardial infarction; Z95.1 Presence of aortocoronary bypass graft; Z89.412 Acquired absence of left great toe; Z87.891 Personal history of nicotine dependence; Z86.73 Personal history of transient ischemic attack (TIA), and cerebral infarction without residual deficits; Z82.49 Family history of ischemic heart disease and other diseases of the circulatory system; Z79.899 Other long term (current) drug therapy; Z79.890 Hormone replacement therapy; Z79.82 Long term (current) use of aspirin
CPT/HCPCS: 36415; 70450; 71045; 76770; 80048; 80053; 81001; 83605; 83735; 83880; 85025; 85610; 85730; 87070; 87075; 87077; 87086; 87186; 87205; 94640; 94760; 96365; 96367; 99285

== ENCOUNTER 2025-04-16 18:18 | Inpatient (IN) | payer MEDICARE, BC ==
[2025-04-16 18:58] LABS: Glucose,Whole Blood 146 mg/dL (70-110)
[2025-04-16 19:20] LABS: Basophils # (A) 0.05 10*3/uL (0.00-0.10); Basophils % (A) 0.4 %; Eosinophils # (A) 0.12 10*3/uL (0.04-0.35); Eosinophils % (A) 1.0 %; HCT 25.3 % (39.6-50.0); HGB 7.7 g/dL (13.0-17.0); Lymphocytes # (A) 0.52 10*3/uL (0.90-5.00); Lymphocytes % (A) 4.2 %; MCH 28.0 pg (27.0-32.0); MCHC 30.4 g/dL (32.0-37.0); MCV 92.0 fL (80.0-97.0); Monocytes # (A) 0.94 10*3/uL (0.20-1.00); Monocytes % (A) 7.6 %; Neutrophils # (A) 10.78 10*3/uL (1.80-7.70); Neutrophils % (A) 86.5 %; Platelet Count 270 10*3/uL (140-440); RBC 2.75 10*6/uL (4.40-5.60); RDW 15.9 % (11.5-14.5); WBC 12.45 10*3/uL (4.50-10.00)
[2025-04-16 19:23] LABS: VBG HCO3 20.0 mmol/L (24-28); VBG PCO2 48.0 mmHg (37-51); VBG PH 7.22 (7.31-7.41)
--- NOTE | 2025-04-16 19:29 | ED ---
General Adult HPI - General Chief complaint: Nausea/Vomiting/Diarrhea Stated complaint: tremors Time Seen by Provider: 04/16/25 18:30 Source: patient, EMS, RN notes reviewed, old records reviewed Mode of arrival: EMS Limitations: no limitations - History of Present Illness Initial comments: 74-year-old male presenting for evaluation of dyspnea history of chronic kidney disease and congestive heart failure patient is a diabetic. He also has history of COPD. Patient coming from the long term for evaluation. No fever. No abdominal pain. No chest pain. Patient complains of persistent nausea and difficulty breathing. - Related Data Home Medications Medication Instructions Recorded Confirmed Aspirin [Celebration Aspirin EC] 81 mg PO DAILY@1700 03/13/19 12/27/24 Ferrous Sulfate [Iron (65 MG 325 mg PO TID@08,,03/13/19 12/27/24 Elemental)] Isosorbide Mononitrate ER [Imdur] 30 mg PO DAILY@0800 03/13/19 12/27/24 Pantoprazole Sodium [Protonix] 40 mg PO DAILY@0800 03/13/19 12/27/24 Ammonium Lactate Cream [Lac-Hydrin 1 applic TOPICAL BID PRN 04/13/23 12/27/24 12% Cream] Escitalopram [Lexapro] 10 mg PO DAILY@0800 04/13/23 12/27/24 Glucerna Shake 1 can PO DAILY PRN 09/24/23 12/27/24 Liquacel 30 ml PO BID@0800,1700 09/24/23 12/27/24 Magnesium Hydroxide [Milk of 7,200 mg PO Q48H PRN 09/24/23 12/27/24 Magnesia Concentrate] Metoprolol Tartrate [Lopressor] 50 mg PO BID@0800,1700 09/24/23 12/27/24 bisacodyL [Dulcolax] 10 mg RECTAL DAILY PRN 09/24/23 12/27/24 Cholecalciferol [Vitamin D3 (25 25 mcg PO DAILY@0800 12/19/23 12/27/24 Mcg = 1000 Iu)] Famotidine [Pepcid] 20 mg PO DAILY@0800 12/19/23 12/27/24 Levothyroxine Sodium [Synthroid] 150 mcg PO DAILY@0600 12/19/23 12/27/24 Tamsulosin HCl [Flomax] 0.4 mg PO HS@209912/19/23 12/27/24 Ondansetron [Zofran] 4 mg PO Q8H PRN 01/13/24 12/27/24 amLODIPine [Norvasc] 5 mg PO BID@0800,199901/13/24 12/27/24 Acetaminophen [Tylenol 8 Hour] 650 mg PO Q6H PRN 02/16/24 12/27/24 Ipratropium-Albuterol Nebulize 3 ml INHALATION RT-Q6H PRN 02/16/24 12/27/24 [Duoneb 0.5 mg-3 mg/3 ml Soln] Multivitamins, Thera [Multivitamin 1 tab PO DAILY@1200 02/16/24 12/27/24 (formulary)] INSULIN ASPART (NovoLOG) [NovoLOG 5 unit SQ W/LUNCH@1100 03/26/24 12/27/24 (formulary)] INSULIN ASPART (NovoLOG) [NovoLOG See Protocol SQ 03/26/24 12/27/24 (formulary)] ACHS@07,11,1630,2130 Petrolat,White/Javi/8-Hydroxyqu 1 applic TOPICAL TUTHSA 03/26/24 12/27/24 [Bag [place]] Atorvastatin [Lipitor] 20 mg PO HS@209912/27/24 12/27/24 Dextrose Chew [Glucose Chew Tab] 16 gm PO DAILY PRN 12/27/24 12/27/24 Dulaglutide [Trulicity] 4.5 mg SQ FR@0812/27/24 12/27/24 INSULIN ASPART (NovoLOG) [NovoLOG 8 unit SQ BID-W/MEALS@07,1630 12/27/24 12/27/24 (formulary)] Insulin Glargine,Hum.rec.anlog 13 units SQ BID@0800,209912/27/24 12/27/24 [Lantus Solostar Pen] [place] Packet 1 packet PO BID@0800,1700 12/27/24 12/27/24 Petrolat,White/Javi/8-Hydroxyqu 1 applic TOPICAL MOWEFR 12/27/24 12/27/24 [Bag [place]] Phytoplex Z-Guard External Paste 1 applic TOPICAL DAILY 12/27/24 12/27/24 57-17% Sennosides [Senokot] 8.6 mg PO BID@0800,1700 12/27/24 12/27/24 Thiamine [Vitamin B-1] 100 mg PO BID@0800,1700 12/27/24 12/27/24 Previous Rx's Medication Instructions Recorded Folic Acid 1 mg PO DAILY@1200 tab 01/23/24 Nystatin 100,000 Unit/gm Powd 1 applic TOPICAL TID each 01/23/24 [Mycostatin Powder] Gabapentin [Neurontin] 400 mg PO HS@2100 #3 cap 04/05/24 Lactulose [Cephulac] 20 gm PO DAILY PRN ml 04/05/24 Amoxic-Pot Clav 875-125Mg 1 tab PO Q12HR 10 Days #20 tab 01/02/25 [Augmentin 875-125] Ciprofloxacin HCl [Cipro] 500 mg PO Q12HR 10 Days #20 tab 01/02/25 HYDROcodone/APAP 7.5-325MG [[place] 1 each PO Q6HR PRN #6 tab 01/02/25 7.5-325] Heparin Sodium,Porcine (1 ml) 5,000 unit SQ Q12HR each 01/02/25 [Heparin Sodium] Allergies Allergy/AdvReac Type Severity Reaction Status Date / Time No Known Allergies Allergy Verified 12/27/24 13:53 Review of Systems ROS Statement: Those systems with pertinent positive or pertinent negative responses have been documented in the HPI. ROS Other: All systems not noted in ROS Statement are negative. Past Medical History Past Medical History: Coronary Artery Disease (CAD), Diabetes Mellitus, GERD/Reflux, Hyperlipidemia, Hypertension, Myocardial Infarction (NE), Thyroid Disorder Additional Past Medical History / Comment(s): neuropathy, diabetic coma in 2000 and pt's sister has had legal guardianship since. Last Myocardial Infarction Date:: unknown History of Any Multi-Drug Resistant Organisms: None Reported Date of last positivie culture/infection: 11/23/23-MRSA; 09/25/23 ESBL MDRO Source:: Left Heel-MRSA; Blood-ESBL Past Surgical History: Appendectomy, Coronary Bypass/CABG, Heart Catheterization With Stent Additional Past Surgical History / Comment(s): Sister relays, "He had peripheral artery surgery too." Past Anesthesia/Blood Transfusion Reactions: No Reported Reaction Date of Last Stent Placement:: unknown Past Psychological History: Depression, Panic Disorder Smoking Status: Former smoker Past Alcohol Use History: Daily Past Drug Use History: Marijuana - Past Family History Father Family Medical History: Congestive Heart Failure (CHF) Mother Additional Family Medical History / Comment(s): of old age. General Exam Limitations: no limitations General appearance: alert, in distress Head exam: Present: atraumatic, normocephalic Eye exam: Present: normal appearance, PERRL ENT exam: Present: mucous membranes dry Respiratory exam: Present: respiratory distress, wheezes Cardiovascular Exam: Present: regular rate, normal rhythm GI/Abdominal exam: Present: soft. Absent: distended, tenderness, guarding Extremities exam: Present: normal inspection, normal capillary refill, other (Bilateral lower extremity bandages) Neurological exam: Present: alert, oriented X3, CN II-XII intact. Absent: motor sensory deficit Psychiatric exam: Present: normal affect, normal mood Skin exam: Present: warm, dry, intact. Absent: cyanosis, diaphoretic Course Vital Signs 04/16/25 04/16/25 04/16/25 18:33 19:52 19:58 Temperature 99.0 F 98.4 F Pulse Rate 97 98 97 Respiratory 24 22 24 Rate Blood Pressure 145/90 142/73 O2 Sat by Pulse 89 L 96 Oximetry 04/16/25 04/16/25 04/16/25 20:00 20:04 20:10 Temperature Pulse Rate 99 99 99 Respiratory 24 24 Rate Blood Pressure 154/80 O2 Sat by Pulse Oximetry 04/16/25 20:28 Temperature Pulse Rate 94 Respiratory 22 Rate Blood Pressure O2 Sat by Pulse Oximetry Medical Decision Making - Medical Decision Making Was pt. sent in by a medical professional or institution (, PA, PUPPET MAKER, urgent care, hospital, or long term...) When possible be specific @ -[No] Did you speak to anyone other than the patient for history (EMS, parent, family, police, friend...)? What history was obtained from this source @ -[No] Did you review nursing and triage notes (agree or disagree)? Why? @ -[I reviewed and agree with nursing and triage notes] Were old charts reviewed (outside hosp., previous admission, EMS record, old EKG, old radiological studies, urgent care reports/EKG's, long term records)? Report findings @ -[No old charts were reviewed] Differential Dyspnea: Coronary syndrome, arrhythmia, tamponade, asthma, COPD, pulmonary embolism, pneumonia, pneumothorax, pulmonary effusion, anaphylaxis, diabetic ketoacidosis, flailed chest, pulmonary contusion, diaphragmatic rupture, anemia, neuromuscular, this is not meant to be an all-inclusive list. EKG interpreted by me (3pts min.). @Sinus rhythm with first-degree AV block significant artifact limiting assessment, no ST segment elevation rate of 95, WV interval 249, QRS duration 89, QTc 401 X-rays interpreted by me (1pt min.). @ -[Chest x-ray consistent with CHF CT interpreted by me (1pt min.). @ -[None done] U/S interpreted by me (1pt. min.). @ -[None done] What testing was considered but not performed or refused? (CT, X-rays, U/S, labs)? Why? @ -[None] What meds were considered but not given or refused? Why? @ -[None] Did you discuss the management of the patient with other professionals (professionals i.e. , PA, PUPPET MAKER, lab, RT, psych nurse, social sciences chair, digital media designer, teacher, welfare officer, casework manager)? Give summary @ -[No] Was smoking cessation discussed for >3mins.? @ -[No] Was critical care preformed (if so, how long)? @ -[No] Were there social determinants of health that impacted care today? How? (Homelessness, low income, unemployed, alcoholism, drug addiction, transportation, low edu. Level, literacy, decrease access to med. care, mcc, rehab)? @ -[No] Was there de-escalation of care discussed even if they declined (Discuss DNR or withdrawal of care, Hospice)? DNR status @ -[No] What co-morbidities impacted this encounter? (DM, HTN, Smoking, COPD, CAD, Cancer, CVA, ARF, Chemo, Hep., AIDS, mental health diagnosis, sleep apnea, morbid obesity)? @ -[CKD, hypertension, anemia Was patient admitted / discharged? Hospital course, mention meds given and route, prescriptions, significant lab abnormalities, going to OR and other pertinent info. @ -[74-year-old male presenting with dyspnea, associated nausea. No chest pain. EKG is sinus rhythm without ST segment elevation. Patient chest x-ray is consistent with CHF. Patient does have chronic anemia which is stable. He al so has chronic kidney disease which is also stable. His troponin is negative and BNP is 11,000. Patient given IV diuretics. He will be admitted for diuresis. Case discussed with Dr. Parks. Undiagnosed new problem with uncertain prognosis? @ -[No] Drug Therapy requiring intensive monitoring for toxicity (Heparin, Nitro, Insulin, Cardizem)? @ -[No] Were any procedures done? @ -[No] Diagnosis/symptom? @ -[CHF Acute, or Chronic, or Acute on Chronic? @Acute on chronic Uncomplicated (without systemic symptoms) or Complicated (systemic symptoms)? @ -[default] Side effects of treatment? @ -[No] Exacerbation, Progression, or Severe Exacerbation? @ -[No] Poses a threat to life or bodily function? How? (Chest pain, USA, NE, pneumonia, PE, COPD, DKA, ARF, appy, cholecystitis, CVA, Diverticulitis, Homicidal, Suicidal, threat to staff... and all critical care pts) @ -Yes, hypoxic respiratory failure - Lab Data Result diagrams: 04/16/25 19:05 04/16/25 19:05 Lab Results 04/16/25 04/16/25 04/16/25 Range/Units 18:57 19:05 19:05 WBC 12.45 H (4.50-10.00) 10*3/uL RBC 2.75 L (4.40-5.60) 10*6/uL Hgb 7.7 L (13.0-17.0) g/dL Hct 25.3 L (39.6-50.0) % MCV 92.0 (80.0-97.0) fL MCH 28.0 (27.0-32.0) pg MCHC 30.4 L (32.0-37.0) g/dL Plt Count 270 (140-440) 10*3/uL MPV 9.7 (9.5-12.2) fL Immature Gran % (Auto) 0.3 % Neutrophils % 86.5 % Lymphocytes % 4.2 % Monocytes % 7.6 % Eosinophils % 1.0 % Basophils % 0.4 % Immature Gran # 0.04 (0.00-0.04) 10*3/uL Neutrophils # 10.78 H (1.80-7.70) 10*3/uL Lymphocytes # 0.52 L (0.90-5.00) 10*3/uL Monocytes # 0.94 (0.20-1.00) 10*3/uL Eosinophils # 0.12 (0.04-0.35) 10*3/uL Basophils # 0.05 (0.00-0.10) 10*3/uL PT 10.2 (10.0-12.5) sec INR 0.9 (<1.2) APTT 21.6 L (22.0-30.0) sec VBG pH (7.31-7.41) VBG pCO2 (37-51) mmHg VBG HCO3 (24-28) mmol/L Sodium (137-145) mmol/L Potassium (3.5-5.1) mmol/L Chloride (98-107) mmol/L Carbon Dioxide (22-30) mmol/L Anion Gap mmol/L BUN (9-20) mg/dL Creatinine (0.66-1.25) mg/dL Est GFR (CKD-EPI)AfAm (>60 ml/min/1.73 sqM) Est GFR (CKD-EPI)NonAf (>60 ml/min/1.73 sqM) Glucose (74-99) mg/dL POC Glucose (mg/dL) 146 H (70-110) mg/dL POC Glu [employer] Lead ID Zych Viola Plasma Lactic Acid Selvin (0.7-2.0) mmol/L Calcium (8.4-10.2) mg/dL Magnesium (1.6-2.3) mg/dL Total Bilirubin (0.2-1.3) mg/dL AST (17-59) U/L ALT (4-49) U/L Alkaline Phosphatase (38-126) U/L Troponin I (0.000-0.034) ng/mL NT-Pro-B Natriuret Pep pg/mL Total Protein (6.3-8.2) g/dL Albumin (3.5-5.0) g/dL 04/16/25 04/16/25 04/16/25 Range/Units 19:05 19:05 19:05 WBC (4.50-10.00) 10*3/uL RBC (4.40-5.60) 10*6/uL Hgb (13.0-17.0) g/dL Hct (39.6-50.0) % MCV (80.0-97.0) fL MCH (27.0-32.0) pg MCHC (32.0-37.0) g/dL Plt Count (140-440) 10*3/uL MPV (9.5-12.2) fL Immature Gran % (Auto) % Neutrophils % % Lymphocytes % % Monocytes % % Eosinophils % % Basophils % % Immature Gran # (0.00-0.04) 10*3/uL Neutrophils # (1.80-7.70) 10*3/uL Lymphocytes # (0.90-5.00) 10*3/uL Monocytes # (0.20-1.00) 10*3/uL Eosinophils # (0.04-0.35) 10*3/uL Basophils # (0.00-0.10) 10*3/uL PT (10.0-12.5) sec INR (<1.2) APTT (22.0-30.0) sec VBG pH (7.31-7.41) VBG pCO2 (37-51) mmHg VBG HCO3 (24-28) mmol/L Sodium 139 (137-145) mmol/L Potassium 5.9 H (3.5-5.1) mmol/L Chloride 108 H (98-107) mmol/L Carbon Dioxide 18 L (22-30) mmol/L Anion Gap 13 mmol/L BUN 67 H (9-20) mg/dL Creatinine 2.46 H (0.66-1.25) mg/dL Est GFR (CKD-EPI)AfAm 29 (>60 ml/min/1.73 sqM) Est GFR (CKD-EPI)NonAf 25 (>60 ml/min/1.73 sqM) Glucose 142 H (74-99) mg/dL POC Glucose (mg/dL) (70-110) mg/dL POC Glu [employer] Lead ID Plasma Lactic Acid Selvin 1.8 (0.7-2.0) mmol/L Calcium 9.2 (8.4-10.2) mg/dL Magnesium 2.0 (1.6-2.3) mg/dL Total Bilirubin 0.3 (0.2-1.3) mg/dL AST 18 (17-59) U/L ALT 14 (4-49) U/L Alkaline Phosphatase 121 (38-126) U/L Troponin I <0.012 (0.000-0.034) ng/mL NT-Pro-B Natriuret Pep 67497 pg/mL Total Protein 8.3 H (6.3-8.2) g/dL Albumin 3.9 (3.5-5.0) g/dL 04/16/25 Range/Units 19:11 WBC (4.50-10.00) 10*3/uL RBC (4.40-5.60) 10*6/uL Hgb (13.0-17.0) g/dL Hct (39.6-50.0) % MCV (80.0-97.0) fL MCH (27.0-32.0) pg MCHC (32.0-37.0) g/dL Plt Count (140-440) 10*3/uL MPV (9.5-12.2) fL Immature Gran % (Auto) % Neutrophils % % Lymphocytes % % Monocytes % % Eosinophils % % Basophils % % Immature Gran # (0.00-0.04) 10*3/uL Neutrophils # (1.80-7.70) 10*3/uL Lymphocytes # (0.90-5.00) 10*3/uL Monocytes # (0.20-1.00) 10*3/uL Eosinophils # (0.04-0.35) 10*3/uL Basophils # (0.00-0.10) 10*3/uL PT (10.0-12.5) sec INR (<1.2) APTT (22.0-30.0) sec VBG pH 7.22 L (7.31-7.41) VBG pCO2 48 (37-51) mmHg VBG HCO3 20 L (24-28) mmol/L Sodium (137-145) mmol/L Potassium (3.5-5.1) mmol/L Chloride (98-107) mmol/L Carbon Dioxide (22-30) mmol/L Anion Gap mmol/L BUN (9-20) mg/dL Creatinine (0.66-1.25) mg/dL Est GFR (CKD-EPI)AfAm (>60 ml/min/1.73 sqM) Est GFR (CKD-EPI)NonAf (>60 ml/min/1.73 sqM) Glucose (74-99) mg/dL POC Glucose (mg/dL) (70-110) mg/dL POC Glu [employer] Lead ID Plasma Lactic Acid Selvin (0.7-2.0) mmol/L Calcium (8.4-10.2) mg/dL Magnesium (1.6-2.3) mg/dL Total Bilirubin (0.2-1.3) mg/dL AST (17-59) U/L ALT (4-49) U/L Alkaline Phosphatase (38-126) U/L Troponin I (0.000-0.034) ng/mL NT-Pro-B Natriuret Pep pg/mL Total Protein (6.3-8.2) g/dL Albumin (3.5-5.0) g/dL Disposition Clinical Impression: CKD (chronic kidney disease), CHF (congestive heart failure) Disposition: ADMITTED IP TO THIS HOSP Condition: Stable Is patient prescribed a controlled substance at d/c from ED?: No Referrals: Mika Bell DO [Primary Care Provider] - 1-2 days Time of Disposition: 20:37
[2025-04-16 19:31] LABS: ALT 14 U/L (4-49); AST 18 U/L (17-59); African American GFR (CKD) 29 (>60 ml/min/1.73 sqM); Albumin 3.9 g/dL (3.5-5.0); Alkaline Phosphatase 121 U/L (38-126); Anion Gap 13 mmol/L; Blood Urea Nitrogen 67 mg/dL (9-20); Calcium 9.2 mg/dL (8.4-10.2); Carbon Dioxide 18 mmol/L (22-30); Chloride 108 mmol/L (98-107); Glucose 142 mg/dL (74-99); Magnesium 2.0 mg/dL (1.6-2.3); Non-African American GFR(CKD) 25 (>60 ml/min/1.73 sqM); Potassium 5.9 mmol/L (3.5-5.1); Sodium 139 mmol/L (137-145); Total Protein 8.3 g/dL (6.3-8.2)
[2025-04-16 19:36] LABS: INR 0.9 (<1.2); Partial Thromboplastin Time 21.6 sec (22.0-30.0); Prothrombin Time 10.2 sec (10.0-12.5)
[2025-04-16 19:40] LABS: NT-Pro-B-Type Natriuretic Pept 11400 pg/mL
--- NOTE | 2025-04-16 19:41 | XR ---
EXAMINATION TYPE: XR chest 2V DATE OF EXAM: 04/16/2025 7:37 PM COMPARISON: Chest radiograph 12/31/2024. CLINICAL INDICATION: Male, 74 years old with history of difficulty breathing; [facility] TECHNIQUE: XR chest 2V Frontal and lateral views of the chest. FINDINGS: Lungs/Pleura: There is no evidence of pleural effusion, focal consolidation, or pneumothorax. Pulmonary vascularity: Pulmonary vascular congestion. Heart/mediastinum: Cardiomediastinal silhouette is enlarged and stable. Musculoskeletal: No acute osseous pathology. Median sternotomy wires. Other findings: None IMPRESSION: Cardiomegaly and pulmonary vascular congestive changes. [facility], , 04/16/2025 7:39 PM
[2025-04-16] MEDS: ALBUTEROL NEBULIZED 2.5 MG/3 ML INHALATION STA (19:58)
[2025-04-16] MEDS: IPRATROPIUM 0.5 MG/2.5 ML NEBU INHALATION STA (19:58)
[2025-04-16] MEDS: ONDANSETRON 4 MG/2 ML VIAL IVP STA (20:23)
[2025-04-16] MEDS ORDERED: NALOXONE 0.4 MG/ML 1 ML VIAL IV PRN (20:34)
[2025-04-16] MEDS: FUROSEMIDE 10 MG/ML 4 ML VIAL IV STA (20:57)
[2025-04-16] MEDS: ACETAMINOPHEN TAB 325 MG TAB PO STA (21:11)
[2025-04-17 01:30] LABS: Glucose,Whole Blood 368 mg/dL (70-110)
[2025-04-17] MEDS: TAMSULOSIN 0.4 MG CAP.ER.24H PO STA (02:18)
[2025-04-17] MEDS: ZOLPIDEM 5 MG TAB PO STA (03:49)
[2025-04-17] MEDS: HYDROcodone/APAP 7.5-325MG 1 EACH TAB PO PRN (05:26)
[2025-04-17] MEDS: LEVOTHYROXINE 75 MCG TAB PO SCH (06:39)
[2025-04-17 07:43] LABS: Glucose,Whole Blood 452 mg/dL (70-110)
[2025-04-17] MEDS: INSULIN LISPRO (HumaLOG) 100 UNIT/ML 10 mL VL SQ SCH (08:26)
[2025-04-17] MEDS: PANTOPRAZOLE 40 MG TABLET PO SCH (08:26)
[2025-04-17] MEDS: METOPROLOL TARTRATE 50 MG TAB PO SCH (09:06)
[2025-04-17] MEDS: amLODIPine 5 MG TAB PO SCH (09:06)
[2025-04-17] MEDS: FUROSEMIDE 10 MG/ML 4 ML VIAL IV SCH (09:06)
[2025-04-17] MEDS: ESCITALOPRAM 10 MG TAB PO SCH (09:06)
[2025-04-17 10:01] LABS: Glucose,Whole Blood 476 mg/dL (70-110)
[2025-04-17] MEDS ORDERED: DEXTROSE 50% SYRINGE 50 ML IVP PRN (10:49)
--- NOTE | 2025-04-17 11:00 | P.CRDCN ---
History of Present Illness Consult date: 04/17/25 Consult reason: congestive heart failure History of present illness: This is a 74-year-old male patient of Dr. Edgar with past medical history of coronary artery disease status post bypass surgery, hypertension, dyslipidemia, chronic heart failure, mitral regurgitation, peripheral artery disease status post amputation of the toes, diabetes. Patient was last seen in the office on 01/10/2025. We have been asked to evaluate the patient for CHF. Patient states the reason he came into the hospital because he fell. He states he started shaking all over his body and fell over. He denies chest pain chest pressure or chest tightness. He does complain of shortness of breath and nausea. Blood pressure 123/49, heart rate in the 50s, pulse ox 95% on room air. Patient has been started on IV Lasix 40 mg every 12 hours. Patient seen today in the emergency center waiting for a bed on the cardiac stepdown unit. -EKG: Sinus rhythm with no acute ST changes -Chest x-ray: Cardiomegaly and pulmonary vascular congestion. -Laboratory studies: WBC 12.4, hemoglobin 6.6 followed by 7.7. Patient did not receive transfusion. Potassium 5.9, BUN 67, creatinine 2.46, CO2 18, venous pH 7.22, [id number] and bicarb 20. Troponin negative x 1, proBNP 11,400. -Home cardiac medications: Amlodipine 5 mg twice daily, aspirin 81 mg daily, atorvastatin 20 mg at bedtime, Imdur 30 mg daily, metoprolol tartrate 50 mg twice daily, also on ferrous sulfate and levothyroxine. -Echocardiogram performed 03/29/2024 at [facility] revealed EF of 50%, mild mitral and tricuspid regurgitation. No significant pulmonary hypertension. Mitral and aortic valve leaflets are calcified. No significant restriction. -Lexiscan Cardiolite stress test performed at [facility] on 04/02/2024 revealed large fixed defect involving the entire inferior lateral aspect of the left ventricle which may represent old infarct. Unable to exclude small area of inducible ischemia along the mid to apical anterior septal wall. EF 48%. Review Of Systems: At the time of my exam: CONSTITUTIONAL: Denies fever or chills. HEENT: Denies blurred vision, vision changes, or eye pain. Denies hemoptysis CARDIOVASCULAR: Denies chest pain. Denies orthopnea. Denies PND. Denies palpit ations RESPIRATORY: Denies shortness of breath. GASTROINTESTINAL: Denies abdominal pain. Denies nausea or vomiting. HEMATOLOGIC: Denies bleeding disorders. GENITOURINARY: Denies any blood in urine. SKIN: Denies puritis. Denies rash. Physical examination: Gen: This is a 74-year-old appearing male in no acute distress VS: reviewed HEENT: Head is atraumatic, normocephalic. Pupils equal, round. Sclerae is anicteric. NECK: Supple. No JVD. LUNGS: Diminished breath sounds. No intercostal retractions. HEART: Regular rate and rhythm. No murmur. ABDOMEN: Soft No tenderness. EXTREMITIES: No pedal edema. No calf tenderness. NEUROLOGICAL: Patient is awake, alert and oriented x3. Assessment: Acute on chronic diastolic heart failure History of coronary artery disease status post bypass surgery Hypertension Dyslipidemia Chronic kidney disease stage IV Severe anemia Moderate to severe mitral regurgitation Moderate pulmonary hypertension PAD status post amputation of the toes Diabetes mellitus type 2 Hypothyroidism Plan: Resume patient's home cardiac medications Continue patient on IV Lasix 40 mg every 12 hours Monitor MACK, daily weights, electrolytes and renal function No need to repeat echocardiogram as this was performed in December Further recommendations to follow based upon clinical course Thank you kindly for this consultation. Nurse practitioner note has been reviewed, I agree with documented findings and plan of care. Patient was seen and examined. Past Medical History Past Medical History: Coronary Artery Disease (CAD), Diabetes Mellitus, GERD/Reflux, Hyperlipidemia, Hypertension, Myocardial Infarction ([place]), Thyroid Disorder Additional Past Medical History / Comment(s): neuropathy, diabetic coma in 2000 and pt's sister has had legal guardianship since. Last Myocardial Infarction Date:: unknown History of Any Multi-Drug Resistant Organisms: None Reported Date of last positivie culture/infection: 11/23/23-MRSA; 09/25/23 ESBL MDRO Source:: Left Heel-MRSA; Blood-ESBL Past Surgical History: Appendectomy, Coronary Bypass/CABG, Heart Catheterization With Stent Additional Past Surgical History / Comment(s): Sister relays, "He had peripheral artery surgery too." Past Anesthesia/Blood Transfusion Reactions: No Reported Reaction Date of Last Stent Placement:: unknown Past Psychological History: Depression, Panic Disorder Smoking Status: Former smoker Past Alcohol Use History: Daily Past Drug Use History: Marijuana - Past Family History Father Family Medical History: Congestive Heart Failure (CHF) Mother Additional Family Medical History / Comment(s): of old age. Medications and Allergies Home Medications Medication Instructions Recorded Confirmed Type Aspirin [[place] Aspirin EC] 81 mg PO DAILY@1700 03/13/19 04/17/25 History Ferrous Sulfate [Iron (65 MG 325 mg PO TID@08,12,17 03/13/19 04/17/25 History Elemental)] Isosorbide Mononitrate ER [Imdur] 30 mg PO DAILY@0800 03/13/19 04/17/25 History Pantoprazole Sodium [Protonix] 40 mg PO DAILY@0800 03/13/19 04/17/25 History Escitalopram [Lexapro] 10 mg PO DAILY@0800 04/13/23 04/17/25 History Glucerna Shake 1 can PO DAILY PRN 09/24/23 04/17/25 History Magnesium Hydroxide [Milk of 7,200 mg PO Q48H PRN 09/24/23 04/17/25 History Magnesia Concentrate] Metoprolol Tartrate [Lopressor] 50 mg PO BID@0800,1700 09/24/23 04/17/25 History bisacodyL [Dulcolax] 10 mg RECTAL DAILY PRN 09/24/23 04/17/25 History Cholecalciferol [Vitamin D3 (25 25 mcg PO DAILY@0800 12/19/23 04/17/25 History Mcg = 1000 Iu)] Famotidine [Pepcid] 20 mg PO DAILY@0800 12/19/23 04/17/25 History Tamsulosin HCl [Flomax] 0.4 mg PO HS@2100 12/19/23 04/17/25 History Ondansetron [Zofran] 4 mg PO Q8H PRN 01/13/24 04/17/25 History amLODIPine [Norvasc] 5 mg PO BID@0800,2000 01/13/24 04/17/25 History Folic Acid 1 mg PO DAILY@1200 tab 01/23/24 04/17/25 Rx Nystatin 100,000 Unit/gm Powd 1 applic TOPICAL TID each 01/23/24 04/17/25 Rx [Mycostatin Powder] Acetaminophen [Tylenol 8 Hour] 650 mg PO Q6H PRN 02/16/24 04/17/25 History Ipratropium-Albuterol Nebulize 3 ml INHALATION RT-Q6H PRN 02/16/24 04/17/25 History [Duoneb 0.5 mg-3 mg/3 ml Soln] Multivitamins, Thera [Multivitamin 1 tab PO DAILY@1200 02/16/24 04/17/25 History (formulary)] INSULIN ASPART (NovoLOG) [NovoLOG 8 unit SQ W/LUNCH@1100 03/26/24 04/17/25 History (formulary)] INSULIN ASPART (NovoLOG) [NovoLOG See Protocol SQ 03/26/24 04/17/25 History (formulary)] ACHS@07,11,1630,2130 Gabapentin [Neurontin] 400 mg PO HS@2100 #3 cap 04/05/24 04/17/25 Rx Lactulose [Cephulac] 20 gm PO DAILY PRN ml 04/05/24 04/17/25 Rx Atorvastatin [Lipitor] 20 mg PO HS@2100 12/27/24 04/17/25 History Dextrose Chew [Glucose Chew Tab] 16 gm PO DAILY PRN 12/27/24 04/17/25 History Dulaglutide [Trulicity] 4.5 mg SQ SA@0800 12/27/24 04/17/25 History INSULIN ASPART (NovoLOG) [NovoLOG 10 unit SQ BID-W/MEALS@07,1630 12/27/24 04/17/25 History (formulary)] Insulin Glargine,Hum.rec.anlog 13 units SQ BID@0800,2100 12/27/24 04/17/25 History [Lantus Solostar Pen] Sennosides [Senokot] 8.6 mg PO BID@0800,1700 12/27/24 04/17/25 History Thiamine [Vitamin B-1] 100 mg PO BID@0800,1700 12/27/24 04/17/25 History HYDROcodone/APAP 7.5-325MG [[place] 1 tab PO Q6HR PRN 04/17/25 04/17/25 History 7.5-325] Levothyroxine Sodium [Synthroid] 175 mcg PO DAILY@0600 04/17/25 04/17/25 History Loperamide HCl [Imodium A-D] 4 mg PO BID PRN 04/17/25 04/17/25 History Na Phos,M-B/Na Phos,Di-Ba [Fleet 133 ml RECTAL DAILY 04/17/25 04/17/25 History Adult] SILVER sulfADIAZINE Cream 1 applic TOPICAL DAILY 04/17/25 04/17/25 History [Silvadene 1% Cream] Allergies Allergy/AdvReac Type Severity Reaction Status Date / Time No Known Allergies Allergy Verified 04/17/25 07:38 Physical Exam Vitals: Vital Signs Temp Pulse Resp BP Pulse Ox 04/17/25 07:27 54 L 18 123/49 95 04/17/25 06:00 55 L 18 119/50 96 04/17/25 05:00 54 L 115/47 95 04/17/25 04:00 97.8 F 55 L 16 113/46 99 04/17/25 03:00 53 L 99 04/17/25 02:14 55 L 16 111/52 98 04/17/25 01:30 47 L 20 110/85 98 04/17/25 00:00 60 18 108/51 97 04/16/25 23:31 98.6 F 41 L 19 93/76 97 04/16/25 23:00 78 19 111/56 97 04/16/25 22:00 83 19 131/64 95 04/16/25 21:04 92 126/75 04/16/25 20:54 93 118/63 04/16/25 20:42 100.0 F H 98 22 111/67 97 04/16/25 20:28 94 22 04/16/25 20:10 99 24 04/16/25 20:04 99 24 04/16/25 20:00 99 154/80 04/16/25 19:58 97 24 04/16/25 19:52 98.4 F 98 22 142/73 96 04/16/25 18:33 99.0 F 97 24 145/90 89 L Intake and Output 04/16/25 04/17/25 04/17/25 22:59 06:59 14:59 Output Total 300 Balance -300 Output: Urine 300 Other: Weight 108.862 kg Results 04/16/25 19:05 04/16/25 19:05 Cardiac Enzymes 04/16/25 04/16/25 Range/Units 19:05 19:05 AST 18 (17-59) U/L Troponin I <0.012 (0.000-0.034) ng/mL Coagulation 04/16/25 Range/Units 19:05 PT 10.2 (10.0-12.5) sec APTT 21.6 L (22.0-30.0) sec CBC 04/16/25 Range/Units 19:05 WBC 12.45 H (4.50-10.00) 10*3/uL RBC 2.75 L (4.40-5.60) 10*6/uL Hgb 7.7 L (13.0-17.0) g/dL Hct 25.3 L (39.6-50.0) % Plt Count 270 (140-440) 10*3/uL Comprehensive Metabolic Panel 04/16/25 Range/Units 19:05 Sodium 139 (137-145) mmol/L Potassium 5.9 H (3.5-5.1) mmol/L Chloride 108 H (98-107) mmol/L Carbon Dioxide 18 L (22-30) mmol/L BUN 67 H (9-20) mg/dL Creatinine 2.46 H (0.66-1.25) mg/dL Glucose 142 H (74-99) mg/dL Calcium 9.2 (8.4-10.2) mg/dL AST 18 (17-59) U/L ALT 14 (4-49) U/L Alkaline Phosphatase 121 (38-126) U/L Total Protein 8.3 H (6.3-8.2) g/dL Albumin 3.9 (3.5-5.0) g/dL Current Medications Generic Name Dose Route Start Last Admin Trade Name Freq PRN Reason Stop Dose Admin Acetaminophen 650 mg 04/16/25 20:34 Acetaminophen Tab 325 Mg Tab PO Q6HR PRN Mild Pain or Fever > 100.5 Hydrocodone Bitart/Acetaminophen 1 each 04/17/25 01:07 04/17/25 05:26 Hydrocodone/Apap 7.5-325mg 1 Each Tab PO 1 each Q6HR PRN Administration Pain Amlodipine Besylate 5 mg 04/17/25 09:00 Amlodipine 5 Mg Tab PO DAILY [facility] Atorvastatin Calcium 20 mg 04/17/25 21:00 Atorvastatin 20 Mg Tab PO HS [facility] Escitalopram Oxalate 10 mg 04/17/25 09:00 Escitalopram 10 Mg Tab PO DAILY YESY Furosemide 40 mg 04/17/25 09:00 Furosemide 10 Mg/Ml 4 Ml Vial IV Q12HR YESY Gabapentin 400 mg 04/17/25 21:00 Gabapentin 400 Mg Cap PO HS YESY Insulin Human Lispro 0 unit 04/17/25 07:30 Insulin Lispro (Humalog) 100 Unit/Ml 10 Ml Vl SQ ACHS [facility] Protocol Levothyroxine Sodium 150 mcg 04/17/25 06:30 04/17/25 06:39 Levothyroxine 75 Mcg Tab PO 150 mcg DAILY@0630 [facility] Administration Metoprolol Tartrate 50 mg 04/17/25 09:00 Metoprolol Tartrate 50 Mg Tab PO BID [facility] Naloxone HCl 0.2 mg 04/16/25 20:34 Naloxone 0.4 Mg/Ml 1 Ml Vial IV Q2M PRN Opioid Reversal Pantoprazole Sodium 40 mg 04/17/25 07:30 Pantoprazole 40 Mg Tablet PO AC-BRKFST [facility] Intake and Output 04/16/25 04/17/25 04/17/25 22:59 06:59 14:59 Output Total 300 Balance -300 Output: Urine 300 Other: Weight 108.862 kg 04/16/25 19:05 04/16/25 19:05
--- NOTE | 2025-04-17 11:27 | P.NPCON ---
History of Present Illness - Reason for Consult acute renal failure, chronic renal failure - History of Present Illness Reason for consultation: Acute kidney injury on chronic kidney disease History of present as: Patient is a 74-year-old male seen in renal consultation for acute kidney injury on chronic kidney disease. Patient has chronic kidney disease stage IV with baseline creatinine 2.2-2.3. Creatinine 2.46 on admission yesterday. Labs from today are pending. Patient came to the hospital after he sustained a fall. Patient states he was having generalized shaking all over and fell. He denies losing consciousness. He is currently on a nasal cannula. He is maintained on IV Lasix 40 mg twice daily. Potassium yesterday was elevated 5.9. This morning patient has been having pauses and is being followed by cardiology. He is being started on dopamine and was also given atropine. Chest x-ray suggestive of CHF. Patient has history of coronary disease status post CABG. Also has history of diabetes. Patient has history of diastolic CHF and moderate to severe mitral regurgitation and pulmonary hypertension. Vital signs are stable. General: No acute distress. HEENT: Head exam is unremarkable. LUNGS: No audible rhonchi or wheezes. HEART: Bradycardic. ABDOMEN: Nontender. EXTREMITITES: No edema. Past Medical History Past Medical History: Coronary Artery Disease (CAD), Diabetes Mellitus, GERD/Reflux, Hyperlipidemia, Hypertension, Myocardial Infarction ([place]), Thyroid Disorder Additional Past Medical History / Comment(s): neuropathy, diabetic coma in 2000 and pt's sister has had legal guardianship since. Last Myocardial Infarction Date:: unknown History of Any Multi-Drug Resistant Organisms: None Reported Date of last positivie culture/infection: 11/23/23-MRSA; 09/25/23 ESBL MDRO Source:: Left Heel-MRSA; Blood-ESBL Past Surgical History: Appendectomy, Coronary Bypass/CABG, Heart Catheterization With Stent Additional Past Surgical History / Comment(s): Sister relays, "He had peripheral artery surgery too." Past Anesthesia/Blood Transfusion Reactions: No Reported Reaction Date of Last Stent Placement:: unknown Past Psychological History: Depression, Panic Disorder Smoking Status: Former smoker Past Alcohol Use History: Daily Past Drug Use History: Marijuana - Past Family History Father Family Medical History: Congestive Heart Failure (CHF) Mother Additional Family Medical History / Comment(s): of old age. Medications and Allergies Home Medications Medication Instructions Recorded Confirmed Type Aspirin [[place] Aspirin EC] 81 mg PO DAILY@1700 03/13/19 04/17/25 History Ferrous Sulfate [Iron (65 MG 325 mg PO TID@08,12,17 03/13/19 04/17/25 History Elemental)] Isosorbide Mononitrate ER [Imdur] 30 mg PO DAILY@0800 03/13/19 04/17/25 History Pantoprazole Sodium [Protonix] 40 mg PO DAILY@0800 03/13/19 04/17/25 History Escitalopram [Lexapro] 10 mg PO DAILY@0800 04/13/23 04/17/25 History Glucerna Shake 1 can PO DAILY PRN 09/24/23 04/17/25 History Magnesium Hydroxide [Milk of 7,200 mg PO Q48H PRN 09/24/23 04/17/25 History Magnesia Concentrate] Metoprolol Tartrate [Lopressor] 50 mg PO BID@0800,1700 09/24/23 04/17/25 History bisacodyL [Dulcolax] 10 mg RECTAL DAILY PRN 09/24/23 04/17/25 History Cholecalciferol [Vitamin D3 (25 25 mcg PO DAILY@0800 12/19/23 04/17/25 History Mcg = 1000 Iu)] Famotidine [Pepcid] 20 mg PO DAILY@0800 12/19/23 04/17/25 History Tamsulosin HCl [Flomax] 0.4 mg PO HS@2100 12/19/23 04/17/25 History Ondansetron [Zofran] 4 mg PO Q8H PRN 01/13/24 04/17/25 History amLODIPine [Norvasc] 5 mg PO BID@0800,2000 01/13/24 04/17/25 History Folic Acid 1 mg PO DAILY@1200 tab 01/23/24 04/17/25 Rx Nystatin 100,000 Unit/gm Powd 1 applic TOPICAL TID each 01/23/24 04/17/25 Rx [Mycostatin Powder] Acetaminophen [Tylenol 8 Hour] 650 mg PO Q6H PRN 02/16/24 04/17/25 History Ipratropium-Albuterol Nebulize 3 ml INHALATION RT-Q6H PRN 02/16/24 04/17/25 History [Duoneb 0.5 mg-3 mg/3 ml Soln] Multivitamins, Thera [Multivitamin 1 tab PO DAILY@1200 02/16/24 04/17/25 History (formulary)] INSULIN ASPART (NovoLOG) [NovoLOG 8 unit SQ W/LUNCH@1100 03/26/24 04/17/25 History (formulary)] INSULIN ASPART (NovoLOG) [NovoLOG See Protocol SQ 03/26/24 04/17/25 History (formulary)] ACHS@07,11,1630,2130 Gabapentin [Neurontin] 400 mg PO HS@2100 #3 cap 04/05/24 04/17/25 Rx Lactulose [Cephulac] 20 gm PO DAILY PRN ml 04/05/24 04/17/25 Rx Atorvastatin [Lipitor] 20 mg PO HS@2100 12/27/24 04/17/25 History Dextrose Chew [Glucose Chew Tab] 16 gm PO DAILY PRN 12/27/24 04/17/25 History Dulaglutide [Trulicity] 4.5 mg SQ SA@0800 12/27/24 04/17/25 History INSULIN ASPART (NovoLOG) [NovoLOG 10 unit SQ BID-W/MEALS@07,1630 12/27/24 04/17/25 History (formulary)] Insulin Glargine,Hum.rec.anlog 13 units SQ BID@0800,2100 12/27/24 04/17/25 History [Lantus Solostar Pen] Sennosides [Senokot] 8.6 mg PO BID@0800,1700 12/27/24 04/17/25 History Thiamine [Vitamin B-1] 100 mg PO BID@0800,1700 12/27/24 04/17/25 History HYDROcodone/APAP 7.5-325MG [[place] 1 tab PO Q6HR PRN 04/17/25 04/17/25 History 7.5-325] Levothyroxine Sodium [Synthroid] 175 mcg PO DAILY@0600 04/17/25 04/17/25 History Loperamide HCl [Imodium A-D] 4 mg PO BID PRN 04/17/25 04/17/25 History Na Phos,M-B/Na Phos,Di-Ba [Fleet 133 ml RECTAL DAILY 04/17/25 04/17/25 History Adult] SILVER sulfADIAZINE Cream 1 applic TOPICAL DAILY 04/17/25 04/17/25 History [Silvadene 1% Cream] Allergies Allergy/AdvReac Type Severity Reaction Status Date / Time No Known Allergies Allergy Verified 04/17/25 07:38 Physical Exam Vitals: Vital Signs Temp Pulse Resp BP Pulse Ox 04/17/25 11:14 95 04/17/25 10:38 50 L 15 120/59 97 04/17/25 09:04 55 L 18 125/53 98 04/17/25 07:27 54 L 18 123/49 95 04/17/25 06:00 55 L 18 119/50 96 04/17/25 05:00 54 L 115/47 95 04/17/25 04:00 97.8 F 55 L 16 113/46 99 04/17/25 03:00 53 L 99 04/17/25 02:14 55 L 16 111/52 98 04/17/25 01:30 47 L 20 110/85 98 04/17/25 00:00 60 18 108/51 97 04/16/25 23:31 98.6 F 41 L 19 93/76 97 04/16/25 23:00 78 19 111/56 97 04/16/25 22:00 83 19 131/64 95 04/16/25 21:04 92 126/75 04/16/25 20:54 93 118/63 04/16/25 20:42 100.0 F H 98 22 111/67 97 04/16/25 20:28 94 22 04/16/25 20:10 99 24 04/16/25 20:04 99 24 04/16/25 20:00 99 154/80 04/16/25 19:58 97 24 04/16/25 19:52 98.4 F 98 22 142/73 96 04/16/25 18:33 99.0 F 97 24 145/90 89 L Intake and Output 04/16/25 04/17/25 04/17/25 22:59 06:59 14:59 Output Total 300 Balance -300 Output: Urine 300 Other: Weight 108.862 kg Results - Lab Results Most recent lab results Calcium 9.2 mg/dL (8.4-10.2) 04/16/25 19:05 Magnesium 2.0 mg/dL (1.6-2.3) 04/16/25 19:05 04/16/25 19:05 04/16/25 19:05 Assessment and Plan Plan: Assessment: 1. Acute kidney injury secondary to ATN secondary to cardiorenal syndrome. Creatinine 2.46 on admission. Kidney ultrasound from December 2024 showed no evidence of hydronephrosis. 2. Chronic kidney disease stage IV with baseline creatinine 2.2-2.3. Etiology is diabetic kidney disease. 3. Hyperkalemia secondary to acute kidney injury and acidosis. 4. Acute on chronic diastolic CHF moderate to severe mitral regurgitation and pulmonary hypertension. 5. Diabetes mellitus. 6. Coronary disease status post CABG. 7. Cardiac arrhythmia being started on dopamine drip. Cardiology following. Plan: Maintain IV Lasix. 1 g IV calcium gluconate, 10 units IV regular insulin with an amp D50 as well as Lokelma being given now. Labs from today pending. Maintain Romeo catheter. Strict I's and O's. Avoid nephrotoxins. Continue to monitor renal function and urine output. Thank you for the consultation. I will continue to follow the patient with you during his hospital stay.
[2025-04-17] MEDS: INSULIN REGULAR 100 UNIT/ML VIAL (IV) IV ONE ×2 (11:28→21:31)
[2025-04-17] MEDS: DEXTROSE 50% SYRINGE 50 ML IVP STA ×2 (11:29→15:33)
[2025-04-17] MEDS: CALCIUM GLUCONATE IN NACL 1 GM in SALINE 1 100ML.BAG IVPB ONE ×2 (11:36→21:31)
[2025-04-17] MEDS: ATROPINE SULFATE 0.1 MG/ML 10ML SYRINGE IV STA (11:37)
[2025-04-17] MEDS: DOPamine DRIP 800 MG in DEXTROSE/WATER 1 250ML.BAG IV SCH (11:37)
[2025-04-17 11:41] LABS: African American GFR (CKD) 18 (>60 ml/min/1.73 sqM); Anion Gap 11 mmol/L; Blood Urea Nitrogen 82 mg/dL (9-20); Calcium 8.0 mg/dL (8.4-10.2); Carbon Dioxide 16 mmol/L (22-30); Chloride 105 mmol/L (98-107); Glucose 429 mg/dL (74-99); Magnesium 2.1 mg/dL (1.6-2.3); Non-African American GFR(CKD) 15 (>60 ml/min/1.73 sqM); Sodium 132 mmol/L (137-145)
[2025-04-17] MEDS: LIDOCAINE 1% INJ 10MG/ML (20 ML MDV) SQ ONE (11:50)
[2025-04-17 11:58] LABS: INR 1.1 (<1.2); Prothrombin Time 11.7 sec (10.0-12.5)
[2025-04-17] MEDS: MIDAZOLAM 2 MG/2 ML VIAL IVP ONE (12:02)
[2025-04-17] MEDS: SODIUM CHLORIDE 0.9% 1,000 ML IV ONE (12:02)
[2025-04-17 12:08] LABS: African American GFR (CKD) 18 (>60 ml/min/1.73 sqM); Anion Gap 8 mmol/L; Blood Urea Nitrogen 83 mg/dL (9-20); Calcium 7.9 mg/dL (8.4-10.2); Carbon Dioxide 17 mmol/L (22-30); Chloride 103 mmol/L (98-107); Glucose 483 mg/dL (74-99); Non-African American GFR(CKD) 15 (>60 ml/min/1.73 sqM); Sodium 128 mmol/L (137-145)
[2025-04-17 12:09] LABS: Potassium 8.2 mmol/L (3.5-5.1)
[2025-04-17 12:10] LABS: Potassium 8.2 mmol/L (3.5-5.1)
[2025-04-17 12:28] LABS: Glucose,Whole Blood 465 mg/dL (70-110)
[2025-04-17] MEDS: INSULIN REGULAR 100 UNIT in SODIUM CHLORIDE 0.9% 100 ML IV SCH (12:31)
[2025-04-17] MEDS: SODIUM CHLORIDE 0.9% 1,000 ML IV SCH ×3 (12:38→17:11)
[2025-04-17 13:16] LABS: Glucose,Whole Blood 384 mg/dL (70-110)
[2025-04-17] MEDS: LORazepam 1 MG/0.5 ML VIAL IV STA ×2 (13:22→17:29)
[2025-04-17] MEDS: SODIUM BICARB 8.4% 50 ML SYR (1 MEQ/ML) IV STA (13:59)
[2025-04-17 14:12] LABS: Glucose,Whole Blood 349 mg/dL (70-110)
[2025-04-17 15:09] LABS: Glucose,Whole Blood 300 mg/dL (70-110)
--- NOTE | 2025-04-17 15:16 | P.CNPUL ---
History of Present Illness Consult date: 04/17/25 Requesting physician: José Luis Pakrs Reason for consult: other (Critical care management) Chief complaint: Nausea and shortness of breath History of present illness: This is a 74-year-old male patient with history of coronary artery disease with previous stent placement, subsequent coronary bypass grafting, peripheral arterial disease, diabetes mellitus, diabetic neuropathy, gastroesophageal r eflux disease, hypertension, hyperlipidemia, hypothyroidism, former smoker who was brought in from the local detention with complaints of persistent nausea and shortness of breath. Chest x-ray reveals cardiomegaly and pulmonary vascular congestion. EKG revealed significant sinus pauses and bradycardia. White count 12.4. Hemoglobin 7.7. Platelets 270. Sodium 128. Potassium 7.7. Bicarb 17. BUN 83. Creatinine 3.68. Glucose 483. Acetone negative. proBNP 11,400. Troponin opponent negative x 1. He was taken to the [facility] for temporary venous pacemaker placement. He is seen in consultation in the intensive care unit. He is receiving a hemodialysis catheter. He is maintaining O2 saturations in the 90s on 2 L/min per nasal cannula. He is currently afebrile. Mean arterial pressure 68. Heart rate 60. He is on normal saline at 50 mL/h. Receiving Lasix 40 mg IV every 12 hours. On an insulin drip at 10.7 units/h. Deep Review of Systems REVIEW OF SYSTEMS: CONSTITUTIONAL: Positive for generalized weakness. Denies any recent significant weight loss or weight gain. EYES: Denies change in vision. EARS, NOSE, MOUTH, THROAT: Denies headaches, denies sore throat. CARDIOVASCULAR: Denies chest pain, palpitations or syncopal episodes. RESPIRATORY: Positive for shortness of breath, no cough, congestion or hemoptysis. GASTROINTESTINAL: Positive for nausea, denies abdominal pain GENITOURINARY: Denies hematuria, denies infections. MUSKULOSKELETAL: Denies pain, denies swelling. INTEGUMENTARY: Denies rash, denies eczema. NEUROLOGICAL: Denies recent memory loss, no recent seizure activity. PSYCHIATRIC: Denies anxiety, denies depression. HEMATOLOGIC/LYMPHATIC: Denies anemia, denies enlarged lymph nodes. Past Medical History Past Medical History: Coronary Artery Disease (CAD), Diabetes Mellitus, GERD/R eflux, Hyperlipidemia, Hypertension, Myocardial Infarction (ND), Thyroid Disorder Additional Past Medical History / Comment(s): neuropathy, diabetic coma in 2000 and pt's sister has had legal guardianship since. Last Myocardial Infarction Date:: unknown History of Any Multi-Drug Resistant Organisms: None Reported Date of last positivie culture/infection: 11/23/23-MRSA; 09/25/23 ESBL MDRO Source:: Left Heel-MRSA; Blood-ESBL Past Surgical History: Appendectomy, Coronary Bypass/CABG, Heart Catheterization With Stent Additional Past Surgical History / Comment(s): Sister relays, "He had peripheral artery surgery too." CABG done around 2002 Past Anesthesia/Blood Transfusion Reactions: No Reported Reaction Date of Last Stent Placement:: unknown Smoking Status: Former smoker - Past Family History Father Family Medical History: Congestive Heart Failure (CHF) Mother Additional Family Medical History / Comment(s): of old age. Medications and Allergies Home Medications Medication Instructions Recorded Confirmed Type Aspirin [[place] Aspirin EC] 81 mg PO DAILY@1700 03/13/19 04/17/25 History Ferrous Sulfate [Iron (65 MG 325 mg PO TID@08,12,17 03/13/19 04/17/25 History Elemental)] Isosorbide Mononitrate ER [Imdur] 30 mg PO DAILY@0800 03/13/19 04/17/25 History Pantoprazole Sodium [Protonix] 40 mg PO DAILY@0800 03/13/19 04/17/25 History Escitalopram [Lexapro] 10 mg PO DAILY@0800 04/13/23 04/17/25 History Glucerna Shake 1 can PO DAILY PRN 09/24/23 04/17/25 History Magnesium Hydroxide [Milk of 7,200 mg PO Q48H PRN 09/24/23 04/17/25 History Magnesia Concentrate] Metoprolol Tartrate [Lopressor] 50 mg PO BID@0800,1700 09/24/23 04/17/25 History bisacodyL [Dulcolax] 10 mg RECTAL DAILY PRN 09/24/23 04/17/25 History Cholecalciferol [Vitamin D3 (25 25 mcg PO DAILY@0800 12/19/23 04/17/25 History Mcg = 1000 Iu)] Famotidine [Pepcid] 20 mg PO DAILY@0800 12/19/23 04/17/25 History Tamsulosin HCl [Flomax] 0.4 mg PO HS@2100 12/19/23 04/17/25 History Ondansetron [Zofran] 4 mg PO Q8H PRN 01/13/24 04/17/25 History amLODIPine [Norvasc] 5 mg PO BID@0800,2000 01/13/24 04/17/25 History Folic Acid 1 mg PO DAILY@1200 tab 01/23/24 04/17/25 Rx Nystatin 100,000 Unit/gm Powd 1 applic TOPICAL TID each 01/23/24 04/17/25 Rx [Mycostatin Powder] Acetaminophen [Tylenol 8 Hour] 650 mg PO Q6H PRN 02/16/24 04/17/25 History Ipratropium-Albuterol Nebulize 3 ml INHALATION RT-Q6H PRN 02/16/24 04/17/25 History [Duoneb 0.5 mg-3 mg/3 ml Soln] Multivitamins, Thera [Multivitamin 1 tab PO DAILY@1200 02/16/24 04/17/25 History (formulary)] INSULIN ASPART (NovoLOG) [NovoLOG 8 unit SQ W/LUNCH@1100 03/26/24 04/17/25 History (formulary)] INSULIN ASPART (NovoLOG) [NovoLOG See Protocol SQ 03/26/24 04/17/25 History (formulary)] ACHS@07,11,1630,2130 Gabapentin [Neurontin] 400 mg PO HS@2100 #3 cap 04/05/24 04/17/25 Rx Lactulose [Cephulac] 20 gm PO DAILY PRN ml 04/05/24 04/17/25 Rx Atorvastatin [Lipitor] 20 mg PO HS@2100 12/27/24 04/17/25 History Dextrose Chew [Glucose Chew Tab] 16 gm PO DAILY PRN 12/27/24 04/17/25 History Dulaglutide [Trulicity] 4.5 mg SQ SA@0800 12/27/24 04/17/25 History INSULIN ASPART (NovoLOG) [NovoLOG 10 unit SQ BID-W/MEALS@07,1630 12/27/24 04/17/25 History (formulary)] Insulin Glargine,Hum.rec.anlog 13 units SQ BID@0800,2100 12/27/24 04/17/25 History [Lantus Solostar Pen] Sennosides [Senokot] 8.6 mg PO BID@0800,1700 12/27/24 04/17/25 History Thiamine [Vitamin B-1] 100 mg PO BID@0800,1700 12/27/24 04/17/25 History HYDROcodone/APAP 7.5-325MG [[place] 1 tab PO Q6HR PRN 04/17/25 04/17/25 History 7.5-325] Levothyroxine Sodium [Synthroid] 175 mcg PO DAILY@0600 04/17/25 04/17/25 History Loperamide HCl [Imodium A-D] 4 mg PO BID PRN 04/17/25 04/17/25 History Na Phos,M-B/Na Phos,Di-Ba [Fleet 133 ml RECTAL DAILY 04/17/25 04/17/25 History Adult] SILVER sulfADIAZINE Cream 1 applic TOPICAL DAILY 04/17/25 04/17/25 History [Silvadene 1% Cream] Allergies Allergy/AdvReac Type Severity Reaction Status Date / Time No Known Allergies Allergy Verified 04/17/25 07:38 Physical Exam Vitals: Vital Signs Temp Pulse Pulse Resp BP BP Pulse Ox 04/17/25 14:00 59 L 20 99/45 97 04/17/25 13:40 60 18 99/45 96 04/17/25 13:30 60 13 112/57 95 04/17/25 13:20 59 L 12 112/57 96 04/17/25 13:10 89 16 112/57 95 04/17/25 13:00 60 16 97 04/17/25 12:50 108 H 17 109/56 92 L 04/17/25 12:40 60 22 99 04/17/25 12:30 97.4 F L 60 60 16 106/68 106/68 90 L 04/17/25 11:14 95 04/17/25 10:38 50 L 15 120/59 97 04/17/25 09:04 55 L 18 125/53 98 04/17/25 07:27 54 L 18 123/49 95 04/17/25 06:00 55 L 18 119/50 96 04/17/25 05:00 54 L 115/47 95 04/17/25 04:00 97.8 F 55 L 16 113/46 99 04/17/25 03:00 53 L 99 04/17/25 02:14 55 L 16 111/52 98 04/17/25 01:30 47 L 20 110/85 98 04/17/25 00:00 60 18 108/51 97 04/16/25 23:31 98.6 F 41 L 19 93/76 97 04/16/25 23:00 78 19 111/56 97 04/16/25 22:00 83 19 131/64 95 04/16/25 21:04 92 126/75 04/16/25 20:54 93 118/63 04/16/25 20:42 100.0 F H 98 22 111/67 97 04/16/25 20:28 94 22 04/16/25 20:10 99 24 04/16/25 20:04 99 24 04/16/25 20:00 99 154/80 04/16/25 19:58 97 24 04/16/25 19:52 98.4 F 98 22 142/73 96 04/16/25 18:33 99.0 F 97 24 145/90 89 L Intake and Output 04/17/25 04/17/25 04/17/25 06:59 14:59 22:59 Intake Total 210.578 Output Total 600 Balance -389.422 Intake: Intake, IV Titration 210.578 Amount Calcium Gluconate in NaCl 100 1 gm In Saline 1 100ml. bag @ 100 mls/hr IVPB ONCE [facility] Rx#:[id number] Insulin Regular 100 unit 10.578 In Sodium Chloride 0.9% 100 ml @ Titrate IV .Q0M [facility] Rx#:[id number] Sodium Chloride 0.9% 1, 100 000 ml @ 50 mls/hr IV . Q20H [facility] Rx#:[id number] Output: Urine 600 Uretheral (Romeo) 300 Other: Weight 108.862 kg GENERAL EXAM: Alert, 74-year-old male, resting flat in bed, on 2 L nasal cannula, fairly comfortable in no apparent distress. HEAD: Normocephalic. EYES: Normal reaction of pupils, equal size. NOSE: Clear with pink turbinates. THROAT: No erythema or exudates. NECK: No masses, no JVD. CHEST: No chest wall deformity. Temporary venous pacemaker in place. LUNGS: Equal air entry with no crackles, wheeze, rhonchi or dullness. CVS: S1 and S2 normal with no audible murmur, regular rhythm. ABDOMEN: No hepatosplenomegaly, normal bowel sounds, no guarding or rigidity. SPINE: No scoliosis or deformity SKIN: No rashes CENTRAL NERVOUS SYSTEM: No focal deficits, tone is normal in all 4 extremities. EXTREMITIES: Right temporary HD catheter placed. There is no peripheral edema. No clubbing, no cyanosis. Peripheral pulses are intact. Results - Laboratory Findings CBC and BMP: 04/16/25 19:05 04/17/25 12:37 PT/INR, D-dimer PT 11.7 sec (10.0-12.5) 04/17/25 11:29 INR 1.1 (<1.2) 04/17/25 11:29 Abnormal lab findings: Abnormal Labs 04/16/25 04/16/25 04/16/25 18:57 19:05 19:05 WBC 12.45 H RBC 2.75 L Hgb 7.7 L Hct 25.3 L MCHC 30.4 L Neutrophils # 10.78 H Lymphocytes # 0.52 L APTT 21.6 L VBG pH VBG HCO3 Sodium Potassium Chloride Carbon Dioxide BUN Creatinine Glucose POC Glucose (mg/dL) 146 H Calcium Total Protein 04/16/25 04/16/25 04/17/25 19:05 19:11 01:28 WBC RBC Hgb Hct MCHC Neutrophils # Lymphocytes # APTT VBG pH 7.22 L VBG HCO3 20 L Sodium Potassium 5.9 H Chloride 108 H Carbon Dioxide 18 L BUN 67 H Creatinine 2.46 H Glucose 142 H POC Glucose (mg/dL) 368 H Calcium Total Protein 8.3 H 04/17/25 04/17/25 04/17/25 07:41 09:59 10:50 WBC RBC Hgb Hct MCHC Neutrophils # Lymphocytes # APTT VBG pH VBG HCO3 Sodium 132 L Potassium 8.2 H* Chloride Carbon Dioxide 16 L BUN 82 H Creatinine 3.67 H Glucose 429 H POC Glucose (mg/dL) 452 H 476 H Calcium 8.0 L Total Protein 04/17/25 04/17/25 04/17/25 11:29 12:26 12:37 WBC RBC Hgb Hct MCHC Neutrophils # Lymphocytes # APTT VBG pH VBG HCO3 Sodium 128 L Potassium 8.2 H* 7.7 H* Chloride Carbon Dioxide 17 L BUN 83 H Creatinine 3.68 H Glucose 483 H POC Glucose (mg/dL) 465 H Calcium 7.9 L Total Protein 04/17/25 04/17/25 13:15 14:11 WBC RBC Hgb Hct MCHC Neutrophils # Lymphocytes # APTT VBG pH VBG HCO3 Sodium Potassium Chloride Carbon Dioxide BUN Creatinine Glucose POC Glucose (mg/dL) 384 H 349 H Calcium Total Protein - Diagnostic Findings Chest x-ray: image reviewed Assessment and Plan Assessment: Acute kidney injury secondary to ATN secondary to cardiorenal syndrome. Receiving temporary dialysis catheter Hyperkalemia secondary to above Hyponatremia Metabolic acidosis Sinus pause with significant bradycardia requiring temporary venous pacer placement today and initiated on a dopamine drip Acute exacerbation of chronic diastolic congestive heart failure Moderate to severe mitral regurgitation Pulmonary hypertension History of chronic kidney disease stage IV Diabetes mellitus with hyperglycemia Diabetic neuropathy Coronary artery disease with previous coronary artery bypass grafting Plan: The patient was seen and evaluated Chest x-ray, EKGs, labs and medications reviewed Received a temporary venous pacemaker today Receiving a temporary hemodialysis catheter today Received [facility] Most recent potassium 7.7 Nephrology is following Continue on insulin drip currently at 10.7 units/h Normal saline at 50 mL/h Receiving Lasix 40 mg IV every 12 hours We will continue to monitor closely here in the intensive care unit We will continue to follow and make further recommendations based on his clinical status I have personally seen and examined the patient, performed the documentation and the assessment and plan as written. Number of minutes spent on the visit: 20 Dictation was produced using [email or web address] dictation software. Please excuse any grammatical, word or spelling errors. Time with Patient: Greater than 30
[2025-04-17] MEDS: CALCIUM GLUCONATE IN NACL 1 GM in SALINE 1 100ML.BAG IVPB STA (15:32)
[2025-04-17] MEDS: INSULIN REGULAR 100 UNIT/ML VIAL (IV) IV STA (15:33)
[2025-04-17] MEDS: HEPARIN SODIUM 1,000 UN/ML (10ML VL) MISCELLANE ONE (15:33)
[2025-04-17 16:22] LABS: Glucose,Whole Blood 219 mg/dL (70-110)
--- NOTE | 2025-04-17 16:35 | OP ---
OPERATIVE REPORT DATE OF SERVICE : PREOPERATIVE DIAGNOSIS: [id number] renal failure, high potassium. POSTOPERATIVE DIAGNOSIS: [id number] renal failure, high potassium. PROCEDURE PERFORMED: Ultrasound-guided 20 cm dialysis catheter placed, left femoral approach. NARRATIVE: The patient was seen in the intensive care unit. Left groin was prepped and draped in the usual sterile manner. A 1% lidocaine plain infiltrated in the groin area. Ultrasound-guided micropuncture introduced in the left common femoral vein. Micropuncture guidewire was passed and 4-Lith[place]ian dilator advanced on top of the guidewire. Then, we passed a regular guidewire without any resistance. The dilator was advanced. Then a 20 cm dialysis catheter placed in the left groin approach and flushed with heparin saline and hep-locked, secured with 3-0 nylon. The patient tolerated the procedure well. MMNELLIE / JOANNEN: [id number] /
[2025-04-17] MEDS: DEXTROSE 5%-0.45% NACL 1,000 ML IV SCH (17:10)
[2025-04-17 17:26] LABS: Glucose,Whole Blood 109 mg/dL (70-110)
[2025-04-17] MEDS: SODIUM ZIRCONIUM CYCLOSILICATE 10 GM PACKET PO ONE (18:00)
[2025-04-17] MEDS: LIDOCAINE 1% PF 10 MG/ML (5 ML AMP) SQ ONE (18:00)
[2025-04-17 18:17] LABS: Glucose,Whole Blood 73 mg/dL (70-110)
[2025-04-17] MEDS: DEXTROSE 50% SYRINGE 50 ML IVP PRN (18:19)
[2025-04-17 18:45] LABS: Glucose,Whole Blood 97 mg/dL (70-110)
[2025-04-17 19:02] LABS: Glucose,Whole Blood 117 mg/dL (70-110)
--- NOTE | 2025-04-17 19:17 | CA ---
Transthoracic Echo Report Name: Colton Ross Age: 74 Gender: M : 1950 Exam Date: 04/17/2025 13:30 Exam Location: [facility] Ht (in): 70 Wt (lb): 240 Ordering Physician: Mary Kay Gonzalez Attending/Referring Phys: [id number], Carlos Wool Tamper Damian Solis, DANIELLE Procedure CPT: Indications: LVF, post temp pmk Cardiac Hx: Technical Quality: Good Contrast 1: Definity Total Dose (mL): 2 Contrast 2: Total Dose (mL): MEASUREMENTS (Male / Female) Normal Values 2D ECHO LV Diastolic Diameter PLAX 5.5 cm 4.2 - 5.9 / 3.9 - 5.3 cm LV Systolic Diameter PLAX 4.4 cm IVS Diastolic Thickness 1.2 cm 0.6 - 1.0 / 0.6 - 0.9 cm LVPW Diastolic Thickness 1.2 cm 0.6 - 1.0 / 0.6 - 0.9 cm LV Relative Wall Thickness 0.4 RV Internal Dim ED PLAX 4.4 cm LVOT Diameter 1.8 cm LA Systolic Diameter LX 4.5 cm 3.0 - 4.0 / 2.7 - 3.8 cm LV Diastolic Volume MOD BP 144.3 cm??? 67 - 155 / 56 - 104 cm??? LV Systolic Volume MOD BP 84.8 cm??? 22 - 58 / 19 - 49 cm??? LV Ejection Fraction MOD BP 41.3 % >= 55 % LV Diastolic Volume MOD 4C 161.8 cm??? LV Systolic Volume MOD 4C 85.3 cm??? LV Ejection Fraction MOD 4C 47.3 % LV Diastolic Length 4C 10.0 cm LV Systolic Length 4C 9.3 cm LV Diastolic Volume MOD 2C 127.1 cm??? LV Systolic Volume MOD 2C 84.2 cm??? LV Ejection Fraction MOD 2C 33.8 % LV Diastolic Length 2C 9.9 cm LV Systolic Length 2C 9.5 cm LA Volume 67.5 cm??? 18 - 58 / 22 - 52 cm??? LA Volume Index 28.6 cm???/m??? 16 - 28 cm???/m??? DOPPLER MV Peak Velocity 109.5 cm/s MV Peak Gradient 4.8 mmHg MV Mean Velocity 50.9 cm/s MV Mean Gradient 1.4 mmHg MV Velocity Time Integral 29.8 cm MV Area PHT 4.0 cm??? Mitral E Point Velocity 107.0 cm/s Mitral A Point Velocity 25.9 cm/s Mitral E to A Ratio 4.1 MV Deceleration Time 189.2 ms TR Peak Velocity 240.9 cm/s TR Peak Gradient 23.2 mmHg Right Atrial Pressure 10.0 mmHg Pulmonary Artery Systolic Pressu 33.2 mmHg Right Ventricular Systolic Press 33.2 mmHg FINDINGS Left Ventricle Left ventricular ejection fraction is estimated at 40-45%. Mild concentric left ventricular hypertrophy. . Moderately decreased left ventricular ejection fraction. Right Ventricle Right ventricle not well visualized. Reduced right ventricular global systolic function. Right ventricular systolic pressure within normal limits. A wire is noted in the right ventricle Right Atrium Severe right atrial dilatation. Catheter/pacemaker wire in the right atrial cavity. Left Atrium Mildly increased left atrial diameter. Mildly increased left atrial volume. Mildly increased left atrial area. Mitral Valve Mitral annular calcification. No mitral stenosis. Mild to moderate mitral regurgitation. Calcified leaflets Aortic Valve Trileaflet aortic valve. Thickened aortic valve without stenosis. No aortic regurgitation. Tricuspid Valve Structurally normal tricuspid valve. No tricuspid stenosis. moderate tricuspid regurgitation. Pulmonic Valve Structurally normal pulmonic valve. No pulmonic stenosis. Trace pulmonic regurgitation. Pericardium Minimal pericardial effusion (normal variant). Aorta Aortic annulus normal. CONCLUSIONS Technically difficult study. Definity ECHO contrast used for improved visualization of the endocardial borders (inadequate visualization of two or more contiguous segments). Moderate global hypokinesis of the left ventricle Hypokinesis of the right ventricle, wire noted in the right ventricle Moderate tricuspid regurgitation Mild to moderate mitral regurgitation Previewed by: Dr. Jose Ramon Sidhu MD (Electronically Signed) Final Date: 17 April 2025 19:16
[2025-04-17] MEDS ORDERED: NON FORMULARY DRUG (Glucerna Shake 1 CAN Ml) PO PRN (19:19)
[2025-04-17] MEDS ORDERED: NON FORMULARY DRUG (Acetaminophen [Tylenol 8 Hour] 650 MG Tablet) PO PRN (19:19)
--- NOTE | 2025-04-17 19:24 | P.HPIM ---
History of Present Illness H&P Date: 04/17/25 Chief Complaint: Altered mentation I did come this morning to see the patient in the ER but patient is being taken to lab for TVP. Came back to the ICU to see him later and patient is getting an ultrasound. Then came back again later to see him. 74-year-old patient, resident of [facility]. Chronic medical conditions include CAD with coronary bypass stent, PAD, diabetes GERD hyperlipidemia hypertension hypothyroid neuropathy. Patient currently at [facility]. EMS was called out to [facility] with abnormal labs. Patient was on his scooter. AO x 4. Nurse informed that abnormal labs from this morning showed potassium of 6.1 and hemoglobin of 6.6. Patient was complaining of feeling rather shaky. And also vomited since dinner. Has a history of tremors. Has a chronic Romeo catheter. Patient was significantly hyperkalemic. Was given 2 rounds of calcium gl uconate, sodium bicarbonate, insulin. He was somewhat agitated earlier had to be given Ativan. Apparently also had taken a fall. He has known chronic kidney disease with a baseline creatinine of 2.2. Because of bradycardia patient received the transvenous pacemaker. Also temporarily had been put on dopamine before he was transferred to the lab. Accu-Cheks are running high. Started on insulin drip When I came to see the patient this afternoon patient was sedated after Ativan. Earlier patient's sister was visiting was also the guardian. Review of systems: Cannot obtain patient is rather sedated with Ativan Social history: Former smoker. Currently at [facility]. Sister is legal guardian Physical examination: VITAL SIGNS: 97.8, 85, 16, 113 x 46, 99% 2 L this morning GENERAL: BMI 34.4, lying in bed. Status post Ativan EYES: Pupils equal. Conjunctiva cindy l. HEENT: External appearance of nose and ears normal, oral cavity grossly normal. NECK: JVD not raised; masses not palpable. HEART: First and second heart sounds are normal; no edema.. Poor peripheral pulses LUNGS: Respiratory rate normal; decreased breath sound. ABDOMEN: Soft, nontender, liver spleen not palpable, no masses palpable. Left groin dialysis catheter. Right groin transvenous pacemaker PSYCH: [Sleepy l. MUSCULOSKELETAL:No Clubbing/cyanosis;muscles-grossly intact. Left big toe amputation stump NEUROLOGICAL: Cranial nerves grossly intact; no facial asymmetry, power and sensation grossly intact. LYMPHATICS: No lymph nodes palpable in the axilla and neck INVESTIGATIONS, reviewed in the clinical context: April 17, 2025: Sodium 128 potassium 8.2 bicarb 17 BUN 83 creatinine 3.68 blood glucose 483. Serum acetone negative April 16: White count 12.4 hemoglobin 7.7 platelets 270 sodium 139 potassium 5.9 BUN 67 creatinine 2.46 Chest x-ray film personally reviewed by me-cardiomegaly, venous prominence EKG tracing personally reviewed by me-bradycardia Assessment plan - Acute kidney injury. Possibly ATN. Underlying CKD. Causing severe hyperkalemia and resultant bradycardia Dialysis temporary catheter was placed in the left groin. With dialysis this afternoon. Follow I's and O's - Chronic kidney disease likely combination of nephrosclerosis and diabetic nephropathy baseline creatinine around 2.3 - Diabetes mellitus type 2, chronically on insulin. Uncontrolled with hyperg lycemia Serum acetone negative. Insulin drip - Severe hyperkalemia from kidney disease Patient received calcium gluconate, sodium bicarbonate, insulin. Follow labs - Acute metabolic encephalopathy from renal failure hypoglycemia - Coronary artery disease with prior history of coronary stent and bypass Because of bradycardia Lopressor was held. 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 Multiple consultants. Including cardiology. Nephrology. Vascular. Financial Investigator. Past Medical History Past Medical History: Coronary Artery Disease (CAD), Diabetes Mellitus, GERD/Reflux, Hyperlipidemia, Hypertension, Myocardial Infarction ([place]), Thyroid Disorder Additional Past Medical History / Comment(s): neuropathy, diabetic coma in 2000 and pt's sister has had legal guardianship since. Last Myocardial Infarction Date:: unknown History of Any Multi-Drug Resistant Organisms: None Reported Date of last positivie culture/infection: 11/23/23-MRSA; 09/25/23 ESBL MDRO Source:: Left Heel-MRSA; Blood-ESBL Past Surgical History: Appendectomy, Coronary Bypass/CABG, Heart Catheterization With Stent Additional Past Surgical History / Comment(s): Sister relays, "He had peripheral artery surgery too." Past Anesthesia/Blood Transfusion Reactions: No Reported Reaction Date of Last Stent Placement:: unknown Past Psychological History: Depression, Panic Disorder Smoking Status: Former smoker Past Alcohol Use History: Daily Past Drug Use History: Marijuana - Past Family History Father Family Medical History: Congestive Heart Failure (CHF) Mother Additional Family Medical History / Comment(s): of old age. Medications and Allergies Home Medications Medication Instructions Recorded Confirmed Type Aspirin [Martha Aspirin EC] 81 mg PO DAILY@1700 03/13/19 04/17/25 History Ferrous Sulfate [Iron (65 MG 325 mg PO TID@08,12,17 03/13/19 04/17/25 History Elemental)] Isosorbide Mononitrate ER [Imdur] 30 mg PO DAILY@0800 03/13/19 04/17/25 History Pantoprazole Sodium [Protonix] 40 mg PO DAILY@0800 03/13/19 04/17/25 History Escitalopram [Lexapro] 10 mg PO DAILY@0800 04/13/23 04/17/25 History Glucerna Shake 1 can PO DAILY PRN 09/24/23 04/17/25 History Magnesium Hydroxide [Milk of 7,200 mg PO Q48H PRN 09/24/23 04/17/25 History Magnesia Concentrate] Metoprolol Tartrate [Lopressor] 50 mg PO BID@0800,1700 09/24/23 04/17/25 History bisacodyL [Dulcolax] 10 mg RECTAL DAILY PRN 09/24/23 04/17/25 History Cholecalciferol [Vitamin D3 (25 25 mcg PO DAILY@0800 12/19/23 04/17/25 History Mcg = 1000 Iu)] Famotidine [Pepcid] 20 mg PO DAILY@0800 12/19/23 04/17/25 History Tamsulosin HCl [Flomax] 0.4 mg PO HS@209912/19/23 04/17/25 History Ondansetron [Zofran] 4 mg PO Q8H PRN 01/13/24 04/17/25 History amLODIPine [Norvasc] 5 mg PO BID@0800,199901/13/24 04/17/25 History Folic Acid 1 mg PO DAILY@1200 tab 01/23/24 04/17/25 Rx Nystatin 100,000 Unit/gm Powd 1 applic TOPICAL TID each 01/23/24 04/17/25 Rx [Mycostatin Powder] Acetaminophen [Tylenol 8 Hour] 650 mg PO Q6H PRN 02/16/24 04/17/25 History Ipratropium-Albuterol Nebulize 3 ml INHALATION RT-Q6H PRN 02/16/24 04/17/25 History [Duoneb 0.5 mg-3 mg/3 ml Soln] Multivitamins, Thera [Multivitamin 1 tab PO DAILY@1200 02/16/24 04/17/25 History (formulary)] INSULIN ASPART (NovoLOG) [NovoLOG 8 unit SQ W/LUNCH@1100 03/26/24 04/17/25 History (formulary)] INSULIN ASPART (NovoLOG) [NovoLOG See Protocol SQ 03/26/24 04/17/25 History (formulary)] ACHS@07,11,1630,2130 Gabapentin [Neurontin] 400 mg PO HS@2100 #3 cap 04/05/24 04/17/25 Rx Lactulose [Cephulac] 20 gm PO DAILY PRN ml 04/05/24 04/17/25 Rx Atorvastatin [Lipitor] 20 mg PO HS@2100 12/27/24 04/17/25 History Dextrose Chew [Glucose Chew Tab] 16 gm PO DAILY PRN 12/27/24 04/17/25 History Dulaglutide [Trulicity] 4.5 mg SQ SA@0800 12/27/24 04/17/25 History INSULIN ASPART (NovoLOG) [NovoLOG 10 unit SQ BID-W/MEALS@07,1630 12/27/24 04/17/25 History (formulary)] Insulin Glargine,Hum.rec.anlog 13 units SQ BID@0800,2100 12/27/24 04/17/25 History [Lantus Solostar Pen] Sennosides [Senokot] 8.6 mg PO BID@0800,1700 12/27/24 04/17/25 History Thiamine [Vitamin B-1] 100 mg PO BID@0800,1700 12/27/24 04/17/25 History HYDROcodone/APAP 7.5-325MG [[place] 1 tab PO Q6HR PRN 04/17/25 04/17/25 History 7.5-325] Levothyroxine Sodium [Synthroid] 175 mcg PO DAILY@0600 04/17/25 04/17/25 History Loperamide HCl [Imodium A-D] 4 mg PO BID PRN 04/17/25 04/17/25 History Na Phos,M-B/Na Phos,Di-Ba [Fleet 133 ml RECTAL DAILY 04/17/25 04/17/25 History Adult] SILVER sulfADIAZINE Cream 1 applic TOPICAL DAILY 04/17/25 04/17/25 History [Silvadene 1% Cream] Allergies Allergy/AdvReac Type Severity Reaction Status Date / Time No Known Allergies Allergy Verified 04/17/25 07:38 Physical Exam Vitals: Vital Signs Temp Pulse Resp BP Pulse Ox 04/17/25 10:38 50 L 15 120/59 97 04/17/25 09:04 55 L 18 125/53 98 04/17/25 07:27 54 L 18 123/49 95 04/17/25 06:00 55 L 18 119/50 96 04/17/25 05:00 54 L 115/47 95 04/17/25 04:00 97.8 F 55 L 16 113/46 99 04/17/25 03:00 53 L 99 04/17/25 02:14 55 L 16 111/52 98 04/17/25 01:30 47 L 20 110/85 98 04/17/25 00:00 60 18 108/51 97 04/16/25 23:31 98.6 F 41 L 19 93/76 97 04/16/25 23:00 78 19 111/56 97 04/16/25 22:00 83 19 131/64 95 04/16/25 21:04 92 126/75 04/16/25 20:54 93 118/63 04/16/25 20:42 100.0 F H 98 22 111/67 97 04/16/25 20:28 94 22 04/16/25 20:10 99 24 04/16/25 20:04 99 24 04/16/25 20:00 99 154/80 04/16/25 19:58 97 24 04/16/25 19:52 98.4 F 98 22 142/73 96 04/16/25 18:33 99.0 F 97 24 145/90 89 L Intake and Output 04/16/25 04/17/25 04/17/25 22:59 06:59 14:59 Output Total 300 Balance -300 Output: Urine 300 Other: Weight 108.862 kg Results CBC & Chem 7: 04/16/25 19:05 04/17/25 12:37 Labs: Abnormal Lab Results - Last 24 Hours (Table) 04/16/25 04/16/25 04/16/25 Range/Units 18:57 19:05 19:05 WBC 12.45 H (4.50-10.00) 10*3/uL RBC 2.75 L (4.40-5.60) 10*6/uL Hgb 7.7 L (13.0-17.0) g/dL Hct 25.3 L (39.6-50.0) % MCHC 30.4 L (32.0-37.0) g/dL Neutrophils # 10.78 H (1.80-7.70) 10*3/uL Lymphocytes # 0.52 L (0.90-5.00) 10*3/uL APTT 21.6 L (22.0-30.0) sec VBG pH (7.31-7.41) VBG HCO3 (24-28) mmol/L Potassium (3.5-5.1) mmol/L Chloride (98-107) mmol/L Carbon Dioxide (22-30) mmol/L BUN (9-20) mg/dL Creatinine (0.66-1.25) mg/dL Glucose (74-99) mg/dL POC Glucose (mg/dL) 146 H (70-110) mg/dL Total Protein (6.3-8.2) g/dL 04/16/25 04/16/25 04/17/25 Range/Units 19:05 19:11 01:28 WBC (4.50-10.00) 10*3/uL RBC (4.40-5.60) 10*6/uL Hgb (13.0-17.0) g/dL Hct (39.6-50.0) % MCHC (32.0-37.0) g/dL Neutrophils # (1.80-7.70) 10*3/uL Lymphocytes # (0.90-5.00) 10*3/uL APTT (22.0-30.0) sec VBG pH 7.22 L (7.31-7.41) VBG HCO3 20 L (24-28) mmol/L Potassium 5.9 H (3.5-5.1) mmol/L Chloride 108 H (98-107) mmol/L Carbon Dioxide 18 L (22-30) mmol/L BUN 67 H (9-20) mg/dL Creatinine 2.46 H (0.66-1.25) mg/dL Glucose 142 H (74-99) mg/dL POC Glucose (mg/dL) 368 H (70-110) mg/dL Total Protein 8.3 H (6.3-8.2) g/dL 04/17/25 04/17/25 Range/Units 07:41 09:59 WBC (4.50-10.00) 10*3/uL RBC (4.40-5.60) 10*6/uL Hgb (13.0-17.0) g/dL Hct (39.6-50.0) % MCHC (32.0-37.0) g/dL Neutrophils # (1.80-7.70) 10*3/uL Lymphocytes # (0.90-5.00) 10*3/uL APTT (22.0-30.0) sec VBG pH (7.31-7.41) VBG HCO3 (24-28) mmol/L Potassium (3.5-5.1) mmol/L Chloride (98-107) mmol/L Carbon Dioxide (22-30) mmol/L BUN (9-20) mg/dL Creatinine (0.66-1.25) mg/dL Glucose (74-99) mg/dL POC Glucose (mg/dL) 452 H 476 H (70-110) mg/dL Total Protein (6.3-8.2) g/dL
[2025-04-17 20:12] LABS: Glucose,Whole Blood 98 mg/dL (70-110)
[2025-04-17 20:25] LABS: HCT 20.8 % (39.6-50.0); MCH 28.4 pg (27.0-32.0); MCHC 30.8 g/dL (32.0-37.0); MCV 92.4 fL (80.0-97.0); Platelet Count 182 10*3/uL (140-440); RBC 2.25 10*6/uL (4.40-5.60); RDW 15.6 % (11.5-14.5); WBC 9.32 10*3/uL (4.50-10.00)
[2025-04-17 20:29] LABS: HGB 6.4 g/dL (13.0-17.0)
[2025-04-17 20:39] LABS: African American GFR (CKD) 22 (>60 ml/min/1.73 sqM); Anion Gap 12 mmol/L; Blood Urea Nitrogen 60 mg/dL (9-20); Calcium 8.1 mg/dL (8.4-10.2); Carbon Dioxide 20 mmol/L (22-30); Chloride 101 mmol/L (98-107); Glucose 86 mg/dL (74-99); Non-African American GFR(CKD) 19 (>60 ml/min/1.73 sqM); Potassium 6.0 mmol/L (3.5-5.1); Sodium 133 mmol/L (137-145)
[2025-04-17] MEDS ORDERED: GABAPENTIN 400 MG CAP PO SCH (21:00)
[2025-04-17 21:29] LABS: Hepatitis B Surface Antigen Nonreactive (Nonreactive)
[2025-04-17] MEDS: DEXTROSE 50% SYRINGE 50 ML IVP ONE (21:30)
[2025-04-17] MEDS: SODIUM BICARB 8.4% 50 ML SYR (1 MEQ/ML) IV ONE (21:31)
[2025-04-17 21:39] LABS: Glucose,Whole Blood 96 mg/dL (70-110)
--- NOTE | 2025-04-17 21:45 | PN ---
PROGRESS NOTE SUBJECTIVE: A 74-year-old gentleman, who presented to the emergency room with history of dyspnea, shortness of breath and chronic kidney disease with history of congestive heart failure. I was consulted for placement of dialysis catheter. The patient has a high BUN and creatinine and potassium. PAST HISTORY: History of coronary artery disease, diabetes mellitus, hyperlipidemia, hypertension, myocardial infraction. PHYSICAL EXAMINATION: On examination, the patient was seen in the intensive care unit. NECK: Supple. No bruit appreciated. CHEST: There are a few crackles at the lung bases. HEART: First and second sounds present. ABDOMEN: Soft, nontender. EXTREMITIES: Femorals are 1+ bilaterally. PLAN: Placement of a dialysis catheter. Risks and complications discussed. MMODL / IJN: [id number] /
[2025-04-17] MEDS: INSULIN GLARGINE (LANTUS) 100 UNIT/ML SYR SQ SCH (22:09)
[2025-04-17] MEDS: GABAPENTIN 100 MG CAP PO SCH (22:09)
[2025-04-17] MEDS: ATORVASTATIN 20 MG TAB PO SCH (22:09)
[2025-04-17 22:22] LABS: Glucose,Whole Blood 135 mg/dL (70-110)
[2025-04-17 22:26] LABS: Hepatitis B Surface AB- Quant 3.5 mIU/mL
[2025-04-18 00:40] LABS: ABG HCO3 23 mmol/L (21-25); ABG PCO2 47 mmHg (35-45); ABG PH 7.31 (7.35-7.45); ABG PO2 254 mmHg (83-108); ABG TCO2 25 mmol/L (19-24); Allen Test Performed? Yes
[2025-04-18 00:56] LABS: Glucose,Whole Blood 116 mg/dL (70-110)
[2025-04-18] MEDS: DEXTROSE 50% SYRINGE 50 ML IVP ONE (00:58)
[2025-04-18] MEDS: FUROSEMIDE 10 MG/ML 10 ML VIAL IV STA (00:59)
[2025-04-18] MEDS: INSULIN REGULAR 100 UNIT/ML VIAL (IV) IV ONE (00:59)
[2025-04-18] MEDS: SODIUM BICARB 8.4% 50 ML SYR (1 MEQ/ML) IV ONE (00:59)
[2025-04-18] MEDS: CALCIUM GLUCONATE IN NACL 1 GM in SALINE 1 100ML.BAG IVPB ONE (00:59)
--- NOTE | 2025-04-18 01:16 | XR ---
EXAM: XR Chest, 1 View CLINICAL HISTORY: ITS.REASON XR Reason: increased O2 demands TECHNIQUE: Frontal view of the chest. COMPARISON: CXR, yesterday. FINDINGS: Lungs: See below. Pleural space: See below. Heart: Cardiomegaly. Mild pulmonary vascular congestion. Small bilateral pleural effusions, correlate for congestive heart failure. Mediastinum: Unremarkable. Bones/joints: Sternotomy wires. Tubes, lines and devices: Transvenous pacer lead. IMPRESSION: Cardiomegaly. Mild pulmonary vascular congestion. Small bilateral pleural effusions, correlate for congestive heart failure.
[2025-04-18 06:20] LABS: Glucose,Whole Blood 106 mg/dL (70-110)
[2025-04-18 08:13] LABS: Glucose,Whole Blood 137 mg/dL (70-110)
[2025-04-18 08:54] LABS: ABG HCO3 29 mmol/L (21-25); ABG PCO2 55 mmHg (35-45); ABG PH 7.34 (7.35-7.45); ABG PO2 210 mmHg (83-108); ABG TCO2 31 mmol/L (19-24); Allen Test Performed? Yes
[2025-04-18 09:03] LABS: Basophils # (A) 0.04 10*3/uL (0.00-0.10); Basophils % (A) 0.4 %; Eosinophils # (A) 0.06 10*3/uL (0.04-0.35); Eosinophils % (A) 0.6 %; HCT 20.9 % (39.6-50.0); Lymphocytes # (A) 0.51 10*3/uL (0.90-5.00); Lymphocytes % (A) 4.8 %; MCH 28.9 pg (27.0-32.0); MCHC 32.1 g/dL (32.0-37.0); MCV 90.1 fL (80.0-97.0); Monocytes # (A) 1.05 10*3/uL (0.20-1.00); Monocytes % (A) 9.9 %; Neutrophils # (A) 8.88 10*3/uL (1.80-7.70); Neutrophils % (A) 84.0 %; Platelet Count 148 10*3/uL (140-440); RBC 2.32 10*6/uL (4.40-5.60); RDW 15.4 % (11.5-14.5); WBC 10.57 10*3/uL (4.50-10.00)
[2025-04-18 09:14] LABS: Glucose,Whole Blood 138 mg/dL (70-110)
[2025-04-18 09:15] LABS: HGB 6.7 g/dL (13.0-17.0)
--- NOTE | 2025-04-18 09:34 | XR ---
EXAMINATION TYPE: XR chest 1V portable DATE OF EXAM: 04/18/2025 8:49 AM COMPARISON: 04/17/2025 CLINICAL INDICATION: Male, 74 years old with history of Lead placement check, TECHNIQUE: XR chest 1V portable views of the chest are obtained. FINDINGS: Demonstrated are scattered senescent parenchymal change. Continued cardiomegaly with pulmonary venous congestion and mixed interstitial and alveolar edema. La yering right-sided pleural effusion. Overall stable appearance. Hilar and mediastinal structures are within normal limits. Degenerative changes are seen of the dorsal spine. IMPRESSION: 1. Continued cardiomegaly with pulmonary venous congestion and mixed interstitial and alveolar edema . Layering right-sided pleural effusion. Overall stable appearance. [facility], , 04/18/2025 9:32 AM
--- NOTE | 2025-04-18 10:02 | P.PN ---
Subjective Patient is seen in follow-up for acute kidney injury on chronic kidney disease. Oliguric. No response to Lasix. Underwent hemodialysis started on hemodialysis April 17, 2025. Completed second treatment of hemodialysis earlier this morning. Currently on nonrebreather. Also received blood transfusion due to low hemoglobin. Vital signs are stable. General: Resting in bed. HEENT: On nonrebreather. LUNGS: Scattered rhonchi. HEART: Rate and Rhythm are regular. ABDOMEN: Obese. EXTREMITITES: Trace edema. Objective - Vital Signs Vital signs: Vital Signs Temp 99.6 F 04/18/25 07:18 Pulse 84 04/18/25 07:18 Resp 18 04/18/25 07:18 BP 134/56 04/18/25 07:18 Pulse Ox 100 04/18/25 07:40 FiO2 Intake & Output 04/17/25 04/18/25 04/18/25 18:59 06:59 18:59 Intake Total 4872.066 6194 300 Output Total 3100 20 500 Balance -2049.535 1061 -200 Weight 108.862 kg 99.5 kg Intake: Intake, IV Titration 550.465 800 Amount Calcium Gluconate in NaCl 200 200 1 gm In Saline 1 100ml. bag @ 100 mls/hr IVPB ONCE [facility] Rx#:[id number] Insulin Regular 100 unit 50.465 In Sodium Chloride 0.9% 100 ml @ Titrate IV .Q0M [facility] Rx#:[id number] Sodium Chloride 0.9% 1, 250 600 000 ml @ 50 mls/hr IV . Q20H [facility] Rx#:[id number] Sodium Chloride 0.9% 1, 50 000 ml @ 50 mls/hr IV . Q20H [facility] Rx#:[id number] Blood Product 281 Rc Pheresis As-3 Unit 281 [id number] Hemodialysis 500 300 Output: Urine 600 20 Uretheral (Romeo) 300 Hemodialysis 1500 400 Hemodialysis Net Amount 1000 100 Other: Voiding Method Indwelling Catheter Indwelling Catheter - Labs CBC & Chem 7: 04/18/25 08:33 04/18/25 02:59 Labs: Abnormal Lab Results - Last 24 Hours (Table) 04/17/25 04/17/25 04/17/25 Range/Units 09:59 10:50 10:50 WBC (4.50-10.00) 10*3/uL RBC (4.40-5.60) 10*6/uL Hgb (13.0-17.0) g/dL Hct (39.6-50.0) % MCHC (32.0-37.0) g/dL Neutrophils # (1.80-7.70) 10*3/uL Lymphocytes # (0.90-5.00) 10*3/uL Monocytes # (0.20-1.00) 10*3/uL ABG pH (7.35-7.45) ABG pCO2 (35-45) mmHg ABG pO2 (83-108) mmHg ABG HCO3 (21-25) mmol/L ABG Total CO2 (19-24) mmol/L ABG O2 Saturation (94-97) % Hemoglobin (13.0-17.5) gm/dL Sodium 132 L (137-145) mmol/L Potassium 8.2 H* (3.5-5.1) mmol/L Carbon Dioxide 16 L (22-30) mmol/L BUN 82 H (9-20) mg/dL Creatinine 3.67 H (0.66-1.25) mg/dL Glucose 429 H (74-99) mg/dL POC Glucose (mg/dL) 476 H (70-110) mg/dL Hemoglobin A1c 8.0 H (<=6.0) % Calcium 8.0 L (8.4-10.2) mg/dL Crossmatch 04/17/25 04/17/25 04/17/25 Range/Units 11:29 11:29 12:26 WBC (4.50-10.00) 10*3/uL RBC (4.40-5.60) 10*6/uL Hgb (13.0-17.0) g/dL Hct (39.6-50.0) % MCHC (32.0-37.0) g/dL Neutrophils # (1.80-7.70) 10*3/uL Lymphocytes # (0.90-5.00) 10*3/uL Monocytes # (0.20-1.00) 10*3/uL ABG pH (7.35-7.45) ABG pCO2 (35-45) mmHg ABG pO2 (83-108) mmHg ABG HCO3 (21-25) mmol/L ABG Total CO2 (19-24) mmol/L ABG O2 Saturation (94-97) % Hemoglobin (13.0-17.5) gm/dL Sodium 128 L (137-145) mmol/L Potassium 8.2 H* (3.5-5.1) mmol/L Carbon Dioxide 17 L (22-30) mmol/L BUN 83 H (9-20) mg/dL Creatinine 3.68 H (0.66-1.25) mg/dL Glucose 483 H (74-99) mg/dL POC Glucose (mg/dL) 465 H (70-110) mg/dL Hemoglobin A1c (<=6.0) % Calcium 7.9 L (8.4-10.2) mg/dL Crossmatch See Detail 04/17/25 04/17/25 04/17/25 Range/Units 12:37 13:15 14:11 WBC (4.50-10.00) 10*3/uL RBC (4.40-5.60) 10*6/uL Hgb (13.0-17.0) g/dL Hct (39.6-50.0) % MCHC (32.0-37.0) g/dL Neutrophils # (1.80-7.70) 10*3/uL Lymphocytes # (0.90-5.00) 10*3/uL Monocytes # (0.20-1.00) 10*3/uL ABG pH (7.35-7.45) ABG pCO2 (35-45) mmHg ABG pO2 (83-108) mmHg ABG HCO3 (21-25) mmol/L ABG Total CO2 (19-24) mmol/L ABG O2 Saturation (94-97) % Hemoglobin (13.0-17.5) gm/dL Sodium (137-145) mmol/L Potassium 7.7 H* (3.5-5.1) mmol/L Carbon Dioxide (22-30) mmol/L BUN (9-20) mg/dL Creatinine (0.66-1.25) mg/dL Glucose (74-99) mg/dL POC Glucose (mg/dL) 384 H 349 H (70-110) mg/dL Hemoglobin A1c (<=6.0) % Calcium (8.4-10.2) mg/dL Crossmatch 04/17/25 04/17/25 04/17/25 Range/Units 15:08 16:20 19:00 WBC (4.50-10.00) 10*3/uL RBC (4.40-5.60) 10*6/uL Hgb (13.0-17.0) g/dL Hct (39.6-50.0) % MCHC (32.0-37.0) g/dL Neutrophils # (1.80-7.70) 10*3/uL Lymphocytes # (0.90-5.00) 10*3/uL Monocytes # (0.20-1.00) 10*3/uL ABG pH (7.35-7.45) ABG pCO2 (35-45) mmHg ABG pO2 (83-108) mmHg ABG HCO3 (21-25) mmol/L ABG Total CO2 (19-24) mmol/L ABG O2 Saturation (94-97) % Hemoglobin (13.0-17.5) gm/dL Sodium (137-145) mmol/L Potassium (3.5-5.1) mmol/L Carbon Dioxide (22-30) mmol/L BUN (9-20) mg/dL Creatinine (0.66-1.25) mg/dL Glucose (74-99) mg/dL POC Glucose (mg/dL) 300 H 219 H 117 H (70-110) mg/dL Hemoglobin A1c (<=6.0) % Calcium (8.4-10.2) mg/dL Crossmatch 04/17/25 04/17/25 04/17/25 Range/Units 20:08 20:08 22:20 WBC (4.50-10.00) 10*3/uL RBC 2.25 L (4.40-5.60) 10*6/uL Hgb 6.4 L* (13.0-17.0) g/dL Hct 20.8 L (39.6-50.0) % MCHC 30.8 L (32.0-37.0) g/dL Neutrophils # (1.80-7.70) 10*3/uL Lymphocytes # (0.90-5.00) 10*3/uL Monocytes # (0.20-1.00) 10*3/uL ABG pH (7.35-7.45) ABG pCO2 (35-45) mmHg ABG pO2 (83-108) mmHg ABG HCO3 (21-25) mmol/L ABG Total CO2 (19-24) mmol/L ABG O2 Saturation (94-97) % Hemoglobin (13.0-17.5) gm/dL Sodium 133 L (137-145) mmol/L Potassium 6.0 H (3.5-5.1) mmol/L Carbon Dioxide 20 L (22-30) mmol/L BUN 60 H (9-20) mg/dL Creatinine 3.11 H (0.66-1.25) mg/dL Glucose (74-99) mg/dL POC Glucose (mg/dL) 135 H (70-110) mg/dL Hemoglobin A1c (<=6.0) % Calcium 8.1 L (8.4-10.2) mg/dL Crossmatch 04/17/25 04/18/25 04/18/25 Range/Units 23:49 00:07 00:55 WBC (4.50-10.00) 10*3/uL RBC (4.40-5.60) 10*6/uL Hgb (13.0-17.0) g/dL Hct (39.6-50.0) % MCHC (32.0-37.0) g/dL Neutrophils # (1.80-7.70) 10*3/uL Lymphocytes # (0.90-5.00) 10*3/uL Monocytes # (0.20-1.00) 10*3/uL ABG pH 7.31 L (7.35-7.45) ABG pCO2 47 H (35-45) mmHg ABG pO2 254 H (83-108) mmHg ABG HCO3 (21-25) mmol/L ABG Total CO2 25 H (19-24) mmol/L ABG O2 Saturation 99.8 H (94-97) % Hemoglobin 7.3 L (13.0-17.5) gm/dL Sodium (137-145) mmol/L Potassium 6.4 H* (3.5-5.1) mmol/L Carbon Dioxide (22-30) mmol/L BUN (9-20) mg/dL Creatinine (0.66-1.25) mg/dL Glucose (74-99) mg/dL POC Glucose (mg/dL) 116 H (70-110) mg/dL Hemoglobin A1c (<=6.0) % Calcium (8.4-10.2) mg/dL Crossmatch 04/18/25 04/18/25 04/18/25 Range/Units 02:59 08:11 08:33 WBC 10.57 H (4.50-10.00) 10*3/uL RBC 2.32 L (4.40-5.60) 10*6/uL Hgb 6.7 L* (13.0-17.0) g/dL Hct 20.9 L (39.6-50.0) % MCHC (32.0-37.0) g/dL Neutrophils # 8.88 H (1.80-7.70) 10*3/uL Lymphocytes # 0.51 L (0.90-5.00) 10*3/uL Monocytes # 1.05 H (0.20-1.00) 10*3/uL ABG pH (7.35-7.45) ABG pCO2 (35-45) mmHg ABG pO2 (83-108) mmHg ABG HCO3 (21-25) mmol/L ABG Total CO2 (19-24) mmol/L ABG O2 Saturation (94-97) % Hemoglobin (13.0-17.5) gm/dL Sodium (137-145) mmol/L Potassium 5.9 H (3.5-5.1) mmol/L Carbon Dioxide (22-30) mmol/L BUN (9-20) mg/dL Creatinine (0.66-1.25) mg/dL Glucose (74-99) mg/dL POC Glucose (mg/dL) 137 H (70-110) mg/dL Hemoglobin A1c (<=6.0) % Calcium (8.4-10.2) mg/dL Crossmatch 04/18/25 04/18/25 Range/Units 08:49 09:13 WBC (4.50-10.00) 10*3/uL RBC (4.40-5.60) 10*6/uL Hgb (13.0-17.0) g/dL Hct (39.6-50.0) % MCHC (32.0-37.0) g/dL Neutrophils # (1.80-7.70) 10*3/uL Lymphocytes # (0.90-5.00) 10*3/uL Monocytes # (0.20-1.00) 10*3/uL ABG pH 7.34 L (7.35-7.45) ABG pCO2 55 H (35-45) mmHg ABG pO2 210 H (83-108) mmHg ABG HCO3 29 H (21-25) mmol/L ABG Total CO2 31 H (19-24) mmol/L ABG O2 Saturation 99.7 H (94-97) % Hemoglobin 6.8 L* (13.0-17.5) gm/dL Sodium (137-145) mmol/L Potassium (3.5-5.1) mmol/L Carbon Dioxide (22-30) mmol/L BUN (9-20) mg/dL Creatinine (0.66-1.25) mg/dL Glucose (74-99) mg/dL POC Glucose (mg/dL) 138 H (70-110) mg/dL Hemoglobin A1c (<=6.0) % Calcium (8.4-10.2) mg/dL Crossmatch Assessment and Plan Plan: Assessment: 1. Acute kidney injury secondary to ATN secondary to cardiorenal syndrome. Creatinine 2.46 on admission and up to 3.68 yesterday. Oliguric. Kidney ultrasound from December 2024 showed no evidence of hydronephrosis. Started on hemodialysis April 17, 2025 via femoral catheter. 2. Chronic kidney disease stage IV with baseline creatinine 2.2-2.3. Etiology is diabetic kidney disease. 3. Hyperkalemia secondary to acute kidney injury and acidosis. Improved with dialysis. 4. Acute on chronic systolic CHF with ejection fraction of 40 to 45% with moderate mitral and tricuspid regurgitation. 5. Diabetes mellitus. 6. Coronary disease status post CABG. 7. Cardiac arrhythmia secondary to hyperkalemia. 8. Acute blood loss anemia status post blood transfusion. Plan: Status post hemodialysis this morning. Plan for another treatment tomorrow. 80 mg IV Lasix given April 17, 2025 with no response in urine output. Maintain Romeo catheter. Strict I's and O's. Avoid nephrotoxins. Continue to monitor renal function and urine output. IV DDAVP x 1 dose today. Blood transfusion pending.
[2025-04-18 10:08] LABS: Glucose,Whole Blood 148 mg/dL (70-110)
[2025-04-18] MEDS: FAMOTIDINE 20 MG TAB PO SCH (10:15)
[2025-04-18] MEDS: CHOLECALCIFEROL 25 MCG (1000 IU) TABLET PO SCH (10:16)
[2025-04-18] MEDS: amLODIPine 10 MG TAB PO SCH (10:17)
[2025-04-18 10:34] LABS: African American GFR (CKD) 27 (>60 ml/min/1.73 sqM); Anion Gap 5 mmol/L; Blood Urea Nitrogen 42 mg/dL (9-20); Calcium 7.4 mg/dL (8.4-10.2); Carbon Dioxide 32 mmol/L (22-30); Chloride 96 mmol/L (98-107); Glucose 142 mg/dL (74-99); Magnesium 1.6 mg/dL (1.6-2.3); Non-African American GFR(CKD) 24 (>60 ml/min/1.73 sqM); Potassium 4.9 mmol/L (3.5-5.1); Sodium 133 mmol/L (137-145)
[2025-04-18] MEDS: DESMOPRESSIN ACETATE 26 MCG in SODIUM CHLORIDE 0.9% 50 ML IVPB ONE (11:27)
--- NOTE | 2025-04-18 11:51 | P.PN ---
Subjective Progress Note Date: 04/18/25 This is a 74-year-old male patient with history of coronary artery disease with previous stent placement, subsequent coronary bypass grafting, peripheral arterial disease, diabetes mellitus, diabetic neuropathy, gastroesophageal reflux disease, hypertension, hyperlipidemia, hypothyroidism, former smoker who was brought in from the local [facility] with complaints of persistent nausea and shortness of breath. Chest x-ray reveals cardiomegaly and pulmonary vascular congestion. EKG revealed significant sinus pauses and bradycardia. White count 12.4. Hemoglobin 7.7. Platelets 270. Sodium 128. Potassium 7.7. Bicarb 17. BUN 83. Creatinine 3.68. Glucose 483. Acetone negative. proBNP 11,400. Troponin opponent negative x 1. He was taken to the [facility] for temporary venous pacemaker placement. He is seen in consultation in the intensive care unit. He is receiving a hemodialysis catheter. He is maintaining O2 saturations in the 90s on 2 L/min per nasal cannula. He is currently afebrile. Mean arterial pressure 68. Heart rate 60. He is on normal saline at 50 mL/h. Receiving Lasix 40 mg IV every 12 hours. On an insulin drip at 10.7 units/h. The patient is seen today April 18, 2025 in follow-up in the intensive care unit. He is currently resting in bed. Awake and alert in no acute distress. Currently requiring oxygen at 10 L high flow nasal cannula. O2 saturations of 100%. Chest x-ray reveals continued cardiomegaly with pulmonary venous congestion and mixed interstitial and alveolar edema. He did not respond to Lasix yesterday. He is to receive hemodialysis again today. He did require a unit of packed red blood cells last night with a hemoglobin of 6.4. Hemoglobin today 6.7. White count 10.5. Platelets 148. Sodium 133. Potassium 4.9. Bicarb 32. BUN 42. Creatinine 2.56. Glucose 142. Arterial blood gases revealed a PO2 of 210, PCO2 of 55 and a pH of 7.34. He is off the insulin drip. Objective - Vital Signs Vital signs: Vital Signs Temp 100.6 F H 04/18/25 08:00 Pulse 80 04/18/25 10:30 Resp 17 04/18/25 10:30 BP 140/55 04/18/25 10:30 Pulse Ox 100 04/18/25 10:30 FiO2 Intake & Output 04/17/25 04/18/25 04/18/25 18:59 06:59 18:59 Intake Total 7594.898 0766 450 Output Total 3100 20 600 Balance -2049.535 1061 -150 Weight 108.862 kg 99.5 kg Intake: IV 150 Sodium Chloride 0.9% 1, 120 000 ml @ 50 mls/hr IV . Q20H [facility] Rx#:[id number] Venous Sheath KVO 30 Intake, IV Titration 550.465 800 Amount Calcium Gluconate in NaCl 200 200 1 gm In Saline 1 100ml. bag @ 100 mls/hr IVPB ONCE [facility] Rx#:[id number] Insulin Regular 100 unit 50.465 In Sodium Chloride 0.9% 100 ml @ Titrate IV .Q0M [facility] Rx#:[id number] Sodium Chloride 0.9% 1, 250 600 000 ml @ 50 mls/hr IV . Q20H [facility] Rx#:[id number] Sodium Chloride 0.9% 1, 50 000 ml @ 50 mls/hr IV . Q20H [facility] Rx#:[id number] Blood Product 281 Rc Pheresis As-3 Unit 281 [id number] Hemodialysis 500 300 Output: Urine 600 20 100 Uretheral (Romeo) 300 Hemodialysis 1500 400 Hemodialysis Net Amount 1000 100 Other: Voiding Method Indwelling Catheter Indwelling Catheter - Exam GENERAL EXAM: Alert, 74-year-old male, on 10 L high flow nasal cannula, fairly comfortable in no apparent distress. HEAD: Normocephalic. EYES: Normal reaction of pupils, equal size. NOSE: Clear with pink turbinates. THROAT: No erythema or exudates. NECK: No masses, no JVD. CHEST: No chest wall deformity. LUNGS: Equal air entry with crackles in the posterior bases. CVS: S1 and S2 normal with no audible murmur, regular rhythm. ABDOMEN: No hepatosplenomegaly, normal bowel sounds, no guarding or rigidity. SPINE: No scoliosis or deformity SKIN: No rashes CENTRAL NERVOUS SYSTEM: No focal deficits, tone is normal in all 4 extremities. EXTREMITIES: Right femoral hemodialysis catheter in place. There is no peripheral edema. No clubbing, no cyanosis. Peripheral pulses are intact. - Labs CBC & Chem 7: 04/18/25 08:33 04/18/25 09:55 Labs: Abnormal Lab Results - Last 24 Hours (Table) 04/17/25 04/17/25 04/17/25 Range/Units 10:50 10:50 11:29 WBC (4.50-10.00) 10*3/uL RBC (4.40-5.60) 10*6/uL Hgb (13.0-17.0) g/dL Hct (39.6-50.0) % MCHC (32.0-37.0) g/dL Neutrophils # (1.80-7.70) 10*3/uL Lymphocytes # (0.90-5.00) 10*3/uL Monocytes # (0.20-1.00) 10*3/uL ABG pH (7.35-7.45) ABG pCO2 (35-45) mmHg ABG pO2 (83-108) mmHg ABG HCO3 (21-25) mmol/L ABG Total CO2 (19-24) mmol/L ABG O2 Saturation (94-97) % Hemoglobin (13.0-17.5) gm/dL Sodium 132 L 128 L (137-145) mmol/L Potassium 8.2 H* 8.2 H* (3.5-5.1) mmol/L Chloride (98-107) mmol/L Carbon Dioxide 16 L 17 L (22-30) mmol/L BUN 82 H 83 H (9-20) mg/dL Creatinine 3.67 H 3.68 H (0.66-1.25) mg/dL Glucose 429 H 483 H (74-99) mg/dL POC Glucose (mg/dL) (70-110) mg/dL Hemoglobin A1c 8.0 H (<=6.0) % Calcium 8.0 L 7.9 L (8.4-10.2) mg/dL Crossmatch 04/17/25 04/17/25 04/17/25 Range/Units 11:29 12:26 12:37 WBC (4.50-10.00) 10*3/uL RBC (4.40-5.60) 10*6/uL Hgb (13.0-17.0) g/dL Hct (39.6-50.0) % MCHC (32.0-37.0) g/dL Neutrophils # (1.80-7.70) 10*3/uL Lymphocytes # (0.90-5.00) 10*3/uL Monocytes # (0.20-1.00) 10*3/uL ABG pH (7.35-7.45) ABG pCO2 (35-45) mmHg ABG pO2 (83-108) mmHg ABG HCO3 (21-25) mmol/L ABG Total CO2 (19-24) mmol/L ABG O2 Saturation (94-97) % Hemoglobin (13.0-17.5) gm/dL Sodium (137-145) mmol/L Potassium 7.7 H* (3.5-5.1) mmol/L Chloride (98-107) mmol/L Carbon Dioxide (22-30) mmol/L BUN (9-20) mg/dL Creatinine (0.66-1.25) mg/dL Glucose (74-99) mg/dL POC Glucose (mg/dL) 465 H (70-110) mg/dL Hemoglobin A1c (<=6.0) % Calcium (8.4-10.2) mg/dL Crossmatch See Detail 04/17/25 04/17/25 04/17/25 Range/Units 13:15 14:11 15:08 WBC (4.50-10.00) 10*3/uL RBC (4.40-5.60) 10*6/uL Hgb (13.0-17.0) g/dL Hct (39.6-50.0) % MCHC (32.0-37.0) g/dL Neutrophils # (1.80-7.70) 10*3/uL Lymphocytes # (0.90-5.00) 10*3/uL Monocytes # (0.20-1.00) 10*3/uL ABG pH (7.35-7.45) ABG pCO2 (35-45) mmHg ABG pO2 (83-108) mmHg ABG HCO3 (21-25) mmol/L ABG Total CO2 (19-24) mmol/L ABG O2 Saturation (94-97) % Hemoglobin (13.0-17.5) gm/dL Sodium (137-145) mmol/L Potassium (3.5-5.1) mmol/L Chloride (98-107) mmol/L Carbon Dioxide (22-30) mmol/L BUN (9-20) mg/dL Creatinine (0.66-1.25) mg/dL Glucose (74-99) mg/dL POC Glucose (mg/dL) 384 H 349 H 300 H (70-110) mg/dL Hemoglobin A1c (<=6.0) % Calcium (8.4-10.2) mg/dL Crossmatch 04/17/25 04/17/25 04/17/25 Range/Units 16:20 19:00 20:08 WBC (4.50-10.00) 10*3/uL RBC 2.25 L (4.40-5.60) 10*6/uL Hgb 6.4 L* (13.0-17.0) g/dL Hct 20.8 L (39.6-50.0) % MCHC 30.8 L (32.0-37.0) g/dL Neutrophils # (1.80-7.70) 10*3/uL Lymphocytes # (0.90-5.00) 10*3/uL Monocytes # (0.20-1.00) 10*3/uL ABG pH (7.35-7.45) ABG pCO2 (35-45) mmHg ABG pO2 (83-108) mmHg ABG HCO3 (21-25) mmol/L ABG Total CO2 (19-24) mmol/L ABG O2 Saturation (94-97) % Hemoglobin (13.0-17.5) gm/dL Sodium (137-145) mmol/L Potassium (3.5-5.1) mmol/L Chloride (98-107) mmol/L Carbon Dioxide (22-30) mmol/L BUN (9-20) mg/dL Creatinine (0.66-1.25) mg/dL Glucose (74-99) mg/dL POC Glucose (mg/dL) 219 H 117 H (70-110) mg/dL Hemoglobin A1c (<=6.0) % Calcium (8.4-10.2) mg/dL Crossmatch 04/17/25 04/17/25 04/17/25 Range/Units 20:08 22:20 23:49 WBC (4.50-10.00) 10*3/uL RBC (4.40-5.60) 10*6/uL Hgb (13.0-17.0) g/dL Hct (39.6-50.0) % MCHC (32.0-37.0) g/dL Neutrophils # (1.80-7.70) 10*3/uL Lymphocytes # (0.90-5.00) 10*3/uL Monocytes # (0.20-1.00) 10*3/uL ABG pH (7.35-7.45) ABG pCO2 (35-45) mmHg ABG pO2 (83-108) mmHg ABG HCO3 (21-25) mmol/L ABG Total CO2 (19-24) mmol/L ABG O2 Saturation (94-97) % Hemoglobin (13.0-17.5) gm/dL Sodium 133 L (137-145) mmol/L Potassium 6.0 H 6.4 H* (3.5-5.1) mmol/L Chloride (98-107) mmol/L Carbon Dioxide 20 L (22-30) mmol/L BUN 60 H (9-20) mg/dL Creatinine 3.11 H (0.66-1.25) mg/dL Glucose (74-99) mg/dL POC Glucose (mg/dL) 135 H (70-110) mg/dL Hemoglobin A1c (<=6.0) % Calcium 8.1 L (8.4-10.2) mg/dL Crossmatch 04/18/25 04/18/25 04/18/25 Range/Units 00:07 00:55 02:59 WBC (4.50-10.00) 10*3/uL RBC (4.40-5.60) 10*6/uL Hgb (13.0-17.0) g/dL Hct (39.6-50.0) % MCHC (32.0-37.0) g/dL Neutrophils # (1.80-7.70) 10*3/uL Lymphocytes # (0.90-5.00) 10*3/uL Monocytes # (0.20-1.00) 10*3/uL ABG pH 7.31 L (7.35-7.45) ABG pCO2 47 H (35-45) mmHg ABG pO2 254 H (83-108) mmHg ABG HCO3 (21-25) mmol/L ABG Total CO2 25 H (19-24) mmol/L ABG O2 Saturation 99.8 H (94-97) % Hemoglobin 7.3 L (13.0-17.5) gm/dL Sodium (137-145) mmol/L Potassium 5.9 H (3.5-5.1) mmol/L Chloride (98-107) mmol/L Carbon Dioxide (22-30) mmol/L BUN (9-20) mg/dL Creatinine (0.66-1.25) mg/dL Glucose (74-99) mg/dL POC Glucose (mg/dL) 116 H (70-110) mg/dL Hemoglobin A1c (<=6.0) % Calcium (8.4-10.2) mg/dL Crossmatch 04/18/25 04/18/25 04/18/25 Range/Units 08:11 08:33 08:49 WBC 10.57 H (4.50-10.00) 10*3/uL RBC 2.32 L (4.40-5.60) 10*6/uL Hgb 6.7 L* (13.0-17.0) g/dL Hct 20.9 L (39.6-50.0) % MCHC (32.0-37.0) g/dL Neutrophils # 8.88 H (1.80-7.70) 10*3/uL Lymphocytes # 0.51 L (0.90-5.00) 10*3/uL Monocytes # 1.05 H (0.20-1.00) 10*3/uL ABG pH 7.34 L (7.35-7.45) ABG pCO2 55 H (35-45) mmHg ABG pO2 210 H (83-108) mmHg ABG HCO3 29 H (21-25) mmol/L ABG Total CO2 31 H (19-24) mmol/L ABG O2 Saturation 99.7 H (94-97) % Hemoglobin 6.8 L* (13.0-17.5) gm/dL Sodium (137-145) mmol/L Potassium (3.5-5.1) mmol/L Chloride (98-107) mmol/L Carbon Dioxide (22-30) mmol/L BUN (9-20) mg/dL Creatinine (0.66-1.25) mg/dL Glucose (74-99) mg/dL POC Glucose (mg/dL) 137 H (70-110) mg/dL Hemoglobin A1c (<=6.0) % Calcium (8.4-10.2) mg/dL Crossmatch 04/18/25 04/18/25 04/18/25 Range/Units 09:13 09:55 10:06 WBC (4.50-10.00) 10*3/uL RBC (4.40-5.60) 10*6/uL Hgb (13.0-17.0) g/dL Hct (39.6-50.0) % MCHC (32.0-37.0) g/dL Neutrophils # (1.80-7.70) 10*3/uL Lymphocytes # (0.90-5.00) 10*3/uL Monocytes # (0.20-1.00) 10*3/uL ABG pH (7.35-7.45) ABG pCO2 (35-45) mmHg ABG pO2 (83-108) mmHg ABG HCO3 (21-25) mmol/L ABG Total CO2 (19-24) mmol/L ABG O2 Saturation (94-97) % Hemoglobin (13.0-17.5) gm/dL Sodium 133 L (137-145) mmol/L Potassium (3.5-5.1) mmol/L Chloride 96 L (98-107) mmol/L Carbon Dioxide 32 H (22-30) mmol/L BUN 42 H (9-20) mg/dL Creatinine 2.56 H (0.66-1.25) mg/dL Glucose 142 H (74-99) mg/dL POC Glucose (mg/dL) 138 H 148 H (70-110) mg/dL Hemoglobin A1c (<=6.0) % Calcium 7.4 L (8.4-10.2) mg/dL Crossmatch Assessment and Plan Assessment: Acute kidney injury secondary to ATN secondary to cardiorenal syndrome. Received temporary dialysis catheter 04/17/2025. Received hemodialysis 04/17 and again today Acute anemia secondary to above with a hemoglobin of 6.4, status post 1 unit of packed red blood cells, current hemoglobin 6.7 to receive a second unit today Hyperkalemia secondary to above, improved Hyponatremia, improved Metabolic acidosis improved Sinus pause with significant bradycardia requiring temporary venous pacer pl acement 04/17/2025 Acute exacerbation of chronic diastolic congestive heart failure Acute hypoxic respiratory failure secondary to above, currently on 10 L high flow nasal cannula Moderate to severe mitral regurgitation Pulmonary hypertension History of chronic kidney disease stage IV Diabetes mellitus with hyperglycemia Diabetic neuropathy Coronary artery disease with previous coronary artery bypass grafting Plan: The patient was seen and evaluated Chest x-ray, labs and medications reviewed Received a temporary venous pacemaker yesterday Receiving a temporary hemodialysis catheter yesterday Received hemodialysis yesterday and again today Most recent potassium 4.9 Nephrology is following To receive a second unit of packed red blood cells today Normal saline at 50 mL/h Titrate down the FiO2 as tolerated We will continue to follow I have personally seen and examined the patient, performed the documentation and the assessment and plan as written. Number of minutes spent on the visit: 10 Dictation was produced using [employer] dictation software. Please excuse any grammatical, word or spelling errors.
--- NOTE | 2025-04-18 11:57 | PN ---
PROGRESS NOTE FOLLOWUP NOTE. SUBJECTIVE: A 74-year-old gentleman, who is admitted to hospital with acute worsening of the chronic renal failure. While in the emergency room, developed pauses related to hyperkalemia, and I did a temporary transvenous pacemaker on him. This morning, he remains in sinus rhythm. Stopped using the pacemaker a few hours ago, remains confused. Currently on Norvasc 10 daily, aspirin, Lipitor, insulin, and Synthroid. PHYSICAL EXAMINATION: VITAL SIGNS: On exam heart rate is 70 beats per minute, blood pressure is 140/55, respiratory rate 18, and O2 saturation is 100%. NECK: There is no jugular venous distention. Carotid upstroke is normal. There is no bruit. CHEST: Reveals good air entry bilaterally. HEART: Reveals first and second heart sounds. Systolic murmur at the left lower sternal border. ABDOMEN: Soft. EXTREMITIES: Examination of the extremities reveal mild edema. Peripheral pulses are felt. ASSESSMENT: 1. Symptomatic bradycardia status post temporary transvenous pacemaker. 2. Acute on chronic renal failure. This. 3. Acute on chronic diastolic heart failure. 4. Coronary artery disease status post CABG. 5. Anemia. PLAN: I am going to leave the temporary pacemaker in for another day. I will start the patient back on amlodipine for blood pressure control and if the patient remains in sinus rhythm and is not using the pacemaker tomorrow, we can remove the temporary transvenous pacemaker. SWATI / CIRA: [id number] /
[2025-04-18 12:02] LABS: Glucose,Whole Blood 160 mg/dL (70-110)
[2025-04-18] MEDS: FOLIC ACID 1 MG TAB PO SCH (12:17)
[2025-04-18 12:54] LABS: Bacteria,Urine Many /hpf; Bilirubin,Urine Negative (Negative); Blood,Urine Large (Negative); Color,Urine Light Red; Glucose,Urine (UA) Negative (Negative); Ketones,Urine Negative (Negative); Leukocyte Esterase,Urine Large (Negative); Nitrite,Urine Negative (Negative); PH, Urine 5.5 (5.0-8.0); Protein,Urine 2+ (Negative); RBC,Urine 50 /hpf (0-5); Specific Gravity,Urine 1.018 (1.001-1.035); Urobilinogen,Urine <2.0 mg/dL (<2.0); WBC,Urine >182 /hpf (0-5)
[2025-04-18 15:06] LABS: Glucose,Whole Blood 177 mg/dL (70-110)
[2025-04-18 17:06] LABS: Glucose,Whole Blood 195 mg/dL (70-110)
--- NOTE | 2025-04-18 17:07 | P.PN ---
Progress Note - Text Progress Note Date: 04/18/25 Chief Complaint: Altered mentation I did come this morning to see the patient in the ER but patient is being taken to lab for TVP. Came back to the ICU to see him later and patient is getting an ultrasound. Then came back again later to see him. 74-year-old patient, resident of [facility]. Chronic medical conditions include CAD with coronary bypass stent, PAD, diabetes GERD hyperlipidemia hypertension hypothyroid neuropathy. Patient currently at [facility]. EMS was called out to [facility] with abnormal labs. Patient was on his scooter. AO x 4. Nurse informed that abnormal labs from this morning showed potassium of 6.1 and hemoglobin of 6.6. Patient was complaining of feeling rather shaky. And also vomited since dinner. Has a history of tremors. Has a chronic Romeo catheter. Patient was significantly hyperkalemic. Was given 2 rounds of calcium gluconate, sodium bicarbonate, insulin. He was somewhat agitated earlier had to be given Ativan. Apparently also had taken a fall. He has known chronic kidney disease with a baseline creatinine of 2.2. Because of bradycardia patient received the transvenous pacemaker. Also temporarily had been put on dopamine before he was transferred to the lab. Accu-Cheks are running high. Started on insulin drip When I came to see the patient this afternoon patient was sedated after Ativan. Earlier patient's sister was visiting was also the guardian. April 18: ICU.: Admitted with acute kidney injury, severe hypokalemia, acute metabolic encephalopathy, metabolic acidosis. Patient received hemodialysis last night 1 L was removed. Earlier today ultrafiltration was carried out. Overnight patient was on 3 L of nasal cannula and had to be bumped up to nonrebreather. Today is on 8 L of nasal cannula. Has a sitter. Decreased urine output. Patient is able to answer simple question lethargic arousable. Delirious. Patient also received a unit of blood for low hemoglobin of 6.7. Patient has lost some blood during dialysis catheter placement. Has been on insulin drip. Will DC the same tonight. Increase Lantus to 24 units nightly. Patient is off sodium bicarbonate drip. Active Medications Acetaminophen (Acetaminophen Tab 325 Mg Tab) 650 mg PO Q6HR PRN PRN Reason: Mild Pain or Fever > 100.5 Hydrocodone Bitart/Acetaminophen (Hydrocodone/Apap 7.5-325mg 1 Each Tab) 1 each PO Q6HR PRN PRN Reason: Pain Last Admin: 04/17/25 05:26 Dose: 1 each Amlodipine Besylate (Amlodipine 10 Mg Tab) 10 mg PO DAILY [facility] Aspirin (Aspirin 81 Mg) 81 mg PO DAILY@1700 [facility] Atorvastatin Calcium (Atorvastatin 20 Mg Tab) [address] [facility] Last Admin: 04/17/25 22:09 Dose: Not Given Bisacodyl (Bisacodyl 10 Mg Supp) 10 mg RECTAL DAILY PRN PRN Reason: Constipation Cholecalciferol (Cholecalciferol 25 Mcg (1000 Iu) Tablet) 25 mcg PO DAILY@0800 [facility] Dextrose/Water (Dextrose 50% Syringe 50 Ml) 25 ml IVP PER PROTOCOL PRN; Protocol PRN Reason: Hypoglycemia Last Admin: 04/17/25 18:45 Dose: 25 ml Dextrose/Water (Dextrose 50% Syringe 50 Ml) 50 ml IVP PER PROTOCOL PRN; Protocol PRN Reason: Hypoglycemia Escitalopram Oxalate (Escitalopram 10 Mg Tab) 10 mg PO DAILY [facility] Last Admin: 04/17/25 09:06 Dose: 10 mg Famotidine (Famotidine 20 Mg Tab) 20 mg PO DAILY@0800 [facility] Folic Acid (Folic Acid 1 Mg Tab) 1 mg PO DAILY@1200 [facility] Gabapentin (Gabapentin 100 Mg Cap) [address] [facility] Last Admin: 04/17/25 22:09 Dose: Not Given Insulin Human Regular 100 unit (/ Sodium Chloride) 100 mls @ 0 mls/hr IV .Q0M [facility]; Protocol Last Titration: 04/17/25 17:25 Dose: 0 units/hr, 0 mls/hr Sodium Chloride (Saline 0.9%) 1,000 mls @ 50 mls/hr IV .Q20H [facility] Last Admin: 04/17/25 17:11 Dose: Not Given Insulin Glargine (Insulin Glargine (Lantus) 100 Unit/Ml Syr) [address] [facility] Last Admin: 04/17/25 22:09 Dose: Not Given Levothyroxine Sodium (Levothyroxine 75 Mcg Tab) 150 mcg PO DAILY@0630 [facility] Last Admin: 04/17/25 06:39 Dose: 150 mcg Naloxone HCl (Naloxone 0.4 Mg/Ml 1 Ml Vial) 0.2 mg IV Q2M PRN PRN Reason: Opioid Reversal Non-Formulary Medication (Dulaglutide [Trulicity]) 4.5 mg SQ SA@0800 [facility] Pantoprazole Sodium (Pantoprazole 40 Mg Tablet) 40 mg PO AC-BRKFST [facility] Last Admin: 04/17/25 08:26 Dose: 40 mg Sodium Chloride (Sodium Chloride 0.9% Flush 10 Ml Syringe) 10 ml IV Q12HR [facility] Last Admin: 04/17/25 21:33 Dose: 10 ml Social history: Former smoker. Currently at [facility]. Sister is legal guardian Physical examination: VITAL SIGNS: 100.9, 78, 18, 109 x 37, 98% on 8 L GENERAL: BMI 34.4, lying in bed. Lethargic, delirious EYES: Pupils equal. Conjunctiva cindy l. HEENT: External appearance of nose and ears normal, oral cavity grossly normal. NECK: JVD not raised; masses not palpable. HEART: First and second heart sounds are normal; no edema.. Poor peripheral pulses LUNGS: Respiratory rate normal; decreased breath sound. ABDOMEN: Soft, nontender, liver spleen not palpable, no masses palpable. Left groin dialysis catheter. Right groin transvenous pacemaker PSYCH: [Lethargic will answer occasional question. MUSCULOSKELETAL:No Clubbing/cyanosis;muscles-grossly intact. Left big toe amputation stump NEUROLOGICAL: Cranial nerves grossly intact; no facial asymmetry, moving his limbs INVESTIGATIONS, reviewed in the clinical context: April 18: Sodium 133 potassium 4.9 BUN 42 creatinine 2.56. Hemoglobin 6.7 April 17, 2025: Sodium 128 potassium 8.2 bicarb 17 BUN 83 creatinine 3.68 blood g lucose 483. Serum acetone negative April 16: White count 12.4 hemoglobin 7.7 platelets 270 sodium 139 potassium 5.9 BUN 67 creatinine 2.46 Chest x-ray film personally reviewed by me-cardiomegaly, venous prominence EKG tracing personally reviewed by me-bradycardia Assessment plan - Acute kidney injury. Possibly ATN. Underlying CKD. Causing severe hyperkalemia and resultant bradycardia Dialysis temporary catheter was placed in the left groin. First dialysis done on April 17 - Chronic kidney disease likely combination of nephrosclerosis and diabetic nephropathy baseline creatinine around 2.3 - Diabetes mellitus type 2, chronically on insulin. Uncontrolled with hyperglycemia Received Lantus 20 units last night. Increase to 22 units nightly starting today. Stop insulin drip tonight. - Acute hypoxic respiratory failure from pulm edema secondary to fluid retention from kidney injury Patient on 3 L then went to nonrebreather. Currently 8 L - Severe hyperkalemia from kidney disease: Improved Patient received calcium gluconate, sodium bicarbonate, insulin. Follow labs - Acute metabolic encephalopathy from renal failure hypoglycemia: Slow to respond - Coronary artery disease with prior history of coronary stent and bypass Because of bradycardia Lopressor was held. 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 Gentle hydration. 8 L nasal cannula. DC insulin drip later today. Increase Lantus to 24 units. Prognosis guarded. Past Medical History Past Medical History: Coronary Artery Disease (CAD), Diabetes Mellitus, GERD/Reflux, Hyperlipidemia, Hypertension, Myocardial Infarction (VT), Thyroid Disorder Additional Past Medical History / Comment(s): neuropathy, diabetic coma in 2000 and pt's sister has had legal guardianship since. Last Myocardial Infarction Date:: unknown History of Any Multi-Drug Resistant Organisms: None Reported Date of last positivie culture/infection: 11/23/23-MRSA; 09/25/23 ESBL MDRO Source:: Left Heel-MRSA; Blood-ESBL Past Surgical History: Appendectomy, Coronary Bypass/CABG, Heart Catheterization With Stent Additional Past Surgical History / Comment(s): Sister relays, "He had peripheral artery surgery too." Past Anesthesia/Blood Transfusion Reactions: No Reported Reaction Date of Last Stent Placement:: unknown Past Psychological History: Depression, Panic Disorder Smoking Status: Former smoker Past Alcohol Use History: Daily Past Drug Use History: Marijuana
[2025-04-18] MEDS: INSULIN LISPRO (HumaLOG) 100 UNIT/ML 10 mL VL SQ SCH (17:25)
[2025-04-18] MEDS: ASPIRIN 81 MG PO SCH (18:33)
[2025-04-18] MEDS: INSULIN GLARGINE (LANTUS) 100 UNIT/ML SYR SQ SCH (21:15)
[2025-04-18 22:40] LABS: Glucose,Whole Blood 208 mg/dL (70-110)
[2025-04-19 06:20] LABS: Glucose,Whole Blood 233 mg/dL (70-110)
[2025-04-19 07:12] LABS: Basophils # (A) 0.06 10*3/uL (0.00-0.10); Basophils % (A) 0.7 %; Eosinophils # (A) 0.14 10*3/uL (0.04-0.35); Eosinophils % (A) 1.6 %; HCT 21.7 % (39.6-50.0); Lymphocytes # (A) 0.64 10*3/uL (0.90-5.00); Lymphocytes % (A) 7.5 %; MCH 28.4 pg (27.0-32.0); MCHC 30.9 g/dL (32.0-37.0); MCV 91.9 fL (80.0-97.0); Monocytes # (A) 1.04 10*3/uL (0.20-1.00); Monocytes % (A) 12.2 %; Neutrophils # (A) 6.59 10*3/uL (1.80-7.70); Neutrophils % (A) 77.5 %; RBC 2.36 10*6/uL (4.40-5.60); RDW 15.3 % (11.5-14.5); WBC 8.51 10*3/uL (4.50-10.00)
[2025-04-19 07:23] LABS: African American GFR (CKD) 20 (>60 ml/min/1.73 sqM); Anion Gap 10 mmol/L; Blood Urea Nitrogen 65 mg/dL (9-20); Calcium 7.7 mg/dL (8.4-10.2); Carbon Dioxide 27 mmol/L (22-30); Chloride 95 mmol/L (98-107); Glucose 214 mg/dL (74-99); Magnesium 1.8 mg/dL (1.6-2.3); Non-African American GFR(CKD) 17 (>60 ml/min/1.73 sqM); Potassium 5.0 mmol/L (3.5-5.1); Sodium 132 mmol/L (137-145)
[2025-04-19 07:40] LABS: HGB 6.7 g/dL (13.0-17.0)
[2025-04-19 08:03] LABS: Platelet Count 96 10*3/uL (140-440)
--- NOTE | 2025-04-19 09:45 | P.PN ---
Subjective Patient is seen in follow-up for acute kidney injury on chronic kidney disease. Urine output 20 to 30 cc an hour. Started on hemodialysis April 17, 2025. Currently on nonrebreather. Scheduled to receive another unit of blood today. Vital signs are stable. General: Resting in bed. HEENT: On nonrebreather. LUNGS: Scattered rhonchi. HEART: Rate and Rhythm are regular. ABDOMEN: Obese. EXTREMITITES: Trace edema. Objective - Vital Signs Vital signs: Vital Signs Temp 98.2 F 04/19/25 09:40 Pulse 81 04/19/25 09:40 Resp 24 04/19/25 09:40 BP 153/65 04/19/25 09:40 Pulse Ox 100 04/19/25 09:40 FiO2 100 04/19/25 08:45 Intake & Output 04/18/25 04/19/25 04/19/25 18:59 06:59 18:59 Intake Total 710 180 30 Output Total 760 245 65 Balance -50 -65 -35 Weight 97.6 kg Intake: IV 410 180 30 Sodium Chloride 0.9% 1, 300 60 10 000 ml @ 50 mls/hr IV . Q20H [facility] Rx#:[id number] Venous Sheath KVO 110 120 20 Blood Product 0 Rc Pheresis 2 As3 Unit 0 [id number] Hemodialysis 300 Output: Urine 260 245 65 Hemodialysis 400 Hemodialysis Net Amount 100 Other: Voiding Method Indwelling Catheter Indwelling Catheter - Labs CBC & Chem 7: 04/19/25 06:47 04/19/25 06:47 Labs: Abnormal Lab Results - Last 24 Hours (Table) 04/17/25 04/18/25 04/18/25 Range/Units 11:29 09:22 09:55 RBC (4.40-5.60) 10*6/uL Hgb (13.0-17.0) g/dL Hct (39.6-50.0) % MCHC (32.0-37.0) g/dL Plt Count (140-440) 10*3/uL Lymphocytes # (0.90-5.00) 10*3/uL Monocytes # (0.20-1.00) 10*3/uL Sodium 133 L (137-145) mmol/L Chloride 96 L (98-107) mmol/L Carbon Dioxide 32 H (22-30) mmol/L BUN 42 H (9-20) mg/dL Creatinine 2.56 H (0.66-1.25) mg/dL Glucose 142 H (74-99) mg/dL POC Glucose (mg/dL) (70-110) mg/dL Calcium 7.4 L (8.4-10.2) mg/dL Phosphorus (2.5-4.5) mg/dL Urine Protein 2+ H (Negative) Urine Blood Large H (Negative) Ur Leukocyte Esterase Large H (Negative) Urine RBC 50 H (0-5) /hpf Urine WBC >182 H (0-5) /hpf Urine WBC Clumps Many H (None) /hpf Urine Bacteria Many H (None) /hpf Crossmatch See Detail 04/18/25 04/18/25 04/18/25 Range/Units 10:06 12:00 15:04 RBC (4.40-5.60) 10*6/uL Hgb (13.0-17.0) g/dL Hct (39.6-50.0) % MCHC (32.0-37.0) g/dL Plt Count (140-440) 10*3/uL Lymphocytes # (0.90-5.00) 10*3/uL Monocytes # (0.20-1.00) 10*3/uL Sodium (137-145) mmol/L Chloride (98-107) mmol/L Carbon Dioxide (22-30) mmol/L BUN (9-20) mg/dL Creatinine (0.66-1.25) mg/dL Glucose (74-99) mg/dL POC Glucose (mg/dL) 148 H 160 H 177 H (70-110) mg/dL Calcium (8.4-10.2) mg/dL Phosphorus (2.5-4.5) mg/dL Urine Protein (Negative) Urine Blood (Negative) Ur Leukocyte Esterase (Negative) Urine RBC (0-5) /hpf Urine WBC (0-5) /hpf Urine WBC Clumps (None) /hpf Urine Bacteria (None) /hpf Crossmatch 04/18/25 04/18/25 04/19/25 Range/Units 17:05 22:39 06:18 RBC (4.40-5.60) 10*6/uL Hgb (13.0-17.0) g/dL Hct (39.6-50.0) % MCHC (32.0-37.0) g/dL Plt Count (140-440) 10*3/uL Lymphocytes # (0.90-5.00) 10*3/uL Monocytes # (0.20-1.00) 10*3/uL Sodium (137-145) mmol/L Chloride (98-107) mmol/L Carbon Dioxide (22-30) mmol/L BUN (9-20) mg/dL Creatinine (0.66-1.25) mg/dL Glucose (74-99) mg/dL POC Glucose (mg/dL) 195 H 208 H 233 H (70-110) mg/dL Calcium (8.4-10.2) mg/dL Phosphorus (2.5-4.5) mg/dL Urine Protein (Negative) Urine Blood (Negative) Ur Leukocyte Esterase (Negative) Urine RBC (0-5) /hpf Urine WBC (0-5) /hpf Urine WBC Clumps (None) /hpf Urine Bacteria (None) /hpf Crossmatch 04/19/25 04/19/25 Range/Units 06:47 06:47 RBC 2.36 L (4.40-5.60) 10*6/uL Hgb 6.7 L* (13.0-17.0) g/dL Hct 21.7 L (39.6-50.0) % MCHC 30.9 L (32.0-37.0) g/dL Plt Count 96 L (140-440) 10*3/uL Lymphocytes # 0.64 L (0.90-5.00) 10*3/uL Monocytes # 1.04 H (0.20-1.00) 10*3/uL Sodium 132 L (137-145) mmol/L Chloride 95 L (98-107) mmol/L Carbon Dioxide (22-30) mmol/L BUN 65 H (9-20) mg/dL Creatinine 3.32 H (0.66-1.25) mg/dL Glucose 214 H (74-99) mg/dL POC Glucose (mg/dL) (70-110) mg/dL Calcium 7.7 L (8.4-10.2) mg/dL Phosphorus 5.6 H (2.5-4.5) mg/dL Urine Protein (Negative) Urine Blood (Negative) Ur Leukocyte Esterase (Negative) Urine RBC (0-5) /hpf Urine WBC (0-5) /hpf Urine WBC Clumps (None) /hpf Urine Bacteria (None) /hpf Crossmatch Assessment and Plan Plan: Assessment: 1. Acute kidney injury secondary to ATN secondary to cardiorenal syndrome. Started on hemodialysis April 17, 2025 due to refractory hyperkalemia and oliguria. Kidney ultrasound from December 2024 showed no evidence of hydronephrosis. Started on hemodialysis April 17, 2025 via femoral catheter. Urine output 20 to 30 cc an hour. 2. Chronic kidney disease stage IV with baseline creatinine 2.2-2.3. Etiology is diabetic kidney disease. 3. Hyperkalemia secondary to acute kidney injury and acidosis. Improved with dialysis. 4. Acute on chronic systolic CHF with ejection fraction of 40 to 45% with moderate mitral and tricuspid regurgitation. 5. Diabetes mellitus. 6. Coronary disease status post CABG. 7. Cardiac arrhythmia secondary to hyperkalemia. 8. Acute blood loss anemia status post blood transfusions. Also received IV DDAVP. Plan: Hemodialysis today. Blood transfusion with dialysis. Challenge with 80 mg IV Lasix this evening. Maintain Romeo catheter. Strict I's and O's. Avoid nephrotoxins. Continue to monitor renal function and urine output.
--- NOTE | 2025-04-19 09:52 | P.PN ---
Subjective Progress Note Date: 04/19/25 This is a 74-year-old male patient with history of coronary artery disease with previous stent placement, subsequent coronary bypass grafting, peripheral arterial disease, diabetes mellitus, diabetic neuropathy, gastroesophageal reflux disease, hypertension, hyperlipidemia, hypothyroidism, former smoker who was brought in from the local snf with complaints of persistent nausea and shortness of breath. Chest x-ray reveals cardiomegaly and pulmonary vascular congestion. EKG revealed significant sinus pauses and bradycardia. White count 12.4. Hemoglobin 7.7. Platelets 270. Sodium 128. Potassium 7.7. Bicarb 17. BUN 83. Creatinine 3.68. Glucose 483. Acetone negative. proBNP 11,400. Troponin opponent negative x 1. He was taken to the [facility] for temporary venous pacemaker placement. He is seen in consultation in the intensive care unit. He is receiving a hemodialysis catheter. He is maintaining O2 saturations in the 90s on 2 L/min per nasal cannula. He is currently afebrile. Mean arterial pressure 68. Heart rate 60. He is on normal saline at 50 mL/h. Receiving Lasix 40 mg IV every 12 hours. On an insulin drip at 10.7 units/h. The patient is seen today April 18, 2025 in follow-up in the intensive care unit. He is currently resting in bed. Awake and alert in no acute distress. Currently requiring oxygen at 10 L high flow nasal cannula. O2 saturations of 100%. Chest x-ray reveals continued cardiomegaly with pulmonary venous congestion and mixed interstitial and alveolar edema. He did not respond to Lasix yesterday. He is to receive hemodialysis again today. He did require a unit of packed red blood cells last night with a hemoglobin of 6.4. Hemoglobin today 6.7. White count 10.5. Platelets 148. Sodium 133. Potassium 4.9. Bicarb 32. BUN 42. Creatinine 2.56. Glucose 142. Arterial blood gases revealed a PO2 of 210, PCO2 of 55 and a pH of 7.34. He is off the insulin drip. The patient is seen today April 19, 2025 in follow-up in the intensive care unit. He is currently resting in bed. Awake and alert in mild respiratory distress. He is on 15 L high flow nasal cannula plus a nonrebreather mask. He is to receive hemodialysis again today. White count 8.5. Hemoglobin 6.7. Platelets 96,000. Sodium 132. Potassium 5.0. Bicarb 27. BUN 65. Creatinine 3.32. Glucose 214. He remains on Lantus insulin along with Humalog sliding scale. Objective - Vital Signs Vital signs: Vital Signs Temp 98.2 F 04/19/25 09:40 Pulse 81 04/19/25 09:40 Resp 24 04/19/25 09:40 BP 153/65 04/19/25 09:40 Pulse Ox 100 04/19/25 09:40 FiO2 100 04/19/25 08:45 Intake & Output 04/18/25 04/19/25 04/19/25 18:59 06:59 18:59 Intake Total 710 180 30 Output Total 760 245 65 Balance -50 -65 -35 Weight 97.6 kg Intake: IV 410 180 30 Sodium Chloride 0.9% 1, 300 60 10 000 ml @ 50 mls/hr IV . Q20H [facility] Rx#:[id number] Venous Sheath KVO 110 120 20 Blood Product 0 Rc Pheresis 2 As3 Unit 0 [id number] Hemodialysis 300 Output: Urine 260 245 65 Hemodialysis 400 Hemodialysis Net Amount 100 Other: Voiding Method Indwelling Catheter Indwelling Catheter - Exam GENERAL EXAM: Alert, weak 74-year-old male, on 15 L high flow nasal cannula plus a nonrebreather mask, fairly comfortable in no apparent distress. HEAD: Normocephalic. EYES: Normal reaction of pupils, equal size. NOSE: Clear with pink turbinates. THROAT: No erythema or exudates. NECK: No masses, no JVD. CHEST: No chest wall deformity. LUNGS: Equal air entry with crackles in the posterior bases. CVS: S1 and S2 normal with no audible murmur, regular rhythm. ABDOMEN: No hepatosplenomegaly, normal bowel sounds, no guarding or rigidity. SPINE: No scoliosis or deformity SKIN: No rashes CENTRAL NERVOUS SYSTEM: No focal deficits, tone is normal in all 4 extremities. EXTREMITIES: Right femoral hemodialysis catheter in place. There is no peripheral edema. No clubbing, no cyanosis. Peripheral pulses are intact. - Labs CBC & Chem 7: 04/19/25 06:47 04/19/25 06:47 Labs: Abnormal Lab Results - Last 24 Hours (Table) 04/17/25 04/18/25 04/18/25 Range/Units 11:29 09:22 09:55 RBC (4.40-5.60) 10*6/uL Hgb (13.0-17.0) g/dL Hct (39.6-50.0) % MCHC (32.0-37.0) g/dL Plt Count (140-440) 10*3/uL Lymphocytes # (0.90-5.00) 10*3/uL Monocytes # (0.20-1.00) 10*3/uL Sodium 133 L (137-145) mmol/L Chloride 96 L (98-107) mmol/L Carbon Dioxide 32 H (22-30) mmol/L BUN 42 H (9-20) mg/dL Creatinine 2.56 H (0.66-1.25) mg/dL Glucose 142 H (74-99) mg/dL POC Glucose (mg/dL) (70-110) mg/dL Calcium 7.4 L (8.4-10.2) mg/dL Phosphorus (2.5-4.5) mg/dL Urine Protein 2+ H (Negative) Urine Blood Large H (Negative) Ur Leukocyte Esterase Large H (Negative) Urine RBC 50 H (0-5) /hpf Urine WBC >182 H (0-5) /hpf Urine WBC Clumps Many H (None) /hpf Urine Bacteria Many H (None) /hpf Crossmatch See Detail 04/18/25 04/18/25 04/18/25 Range/Units 10:06 12:00 15:04 RBC (4.40-5.60) 10*6/uL Hgb (13.0-17.0) g/dL Hct (39.6-50.0) % MCHC (32.0-37.0) g/dL Plt Count (140-440) 10*3/uL Lymphocytes # (0.90-5.00) 10*3/uL Monocytes # (0.20-1.00) 10*3/uL Sodium (137-145) mmol/L Chloride (98-107) mmol/L Carbon Dioxide (22-30) mmol/L BUN (9-20) mg/dL Creatinine (0.66-1.25) mg/dL Glucose (74-99) mg/dL POC Glucose (mg/dL) 148 H 160 H 177 H (70-110) mg/dL Calcium (8.4-10.2) mg/dL Phosphorus (2.5-4.5) mg/dL Urine Protein (Negative) Urine Blood (Negative) Ur Leukocyte Esterase (Negative) Urine RBC (0-5) /hpf Urine WBC (0-5) /hpf Urine WBC Clumps (None) /hpf Urine Bacteria (None) /hpf Crossmatch 04/18/25 04/18/25 04/19/25 Range/Units 17:05 22:39 06:18 RBC (4.40-5.60) 10*6/uL Hgb (13.0-17.0) g/dL Hct (39.6-50.0) % MCHC (32.0-37.0) g/dL Plt Count (140-440) 10*3/uL Lymphocytes # (0.90-5.00) 10*3/uL Monocytes # (0.20-1.00) 10*3/uL Sodium (137-145) mmol/L Chloride (98-107) mmol/L Carbon Dioxide (22-30) mmol/L BUN (9-20) mg/dL Creatinine (0.66-1.25) mg/dL Glucose (74-99) mg/dL POC Glucose (mg/dL) 195 H 208 H 233 H (70-110) mg/dL Calcium (8.4-10.2) mg/dL Phosphorus (2.5-4.5) mg/dL Urine Protein (Negative) Urine Blood (Negative) Ur Leukocyte Esterase (Negative) Urine RBC (0-5) /hpf Urine WBC (0-5) /hpf Urine WBC Clumps (None) /hpf Urine Bacteria (None) /hpf Crossmatch 04/19/25 04/19/25 Range/Units 06:47 06:47 RBC 2.36 L (4.40-5.60) 10*6/uL Hgb 6.7 L* (13.0-17.0) g/dL Hct 21.7 L (39.6-50.0) % MCHC 30.9 L (32.0-37.0) g/dL Plt Count 96 L (140-440) 10*3/uL Lymphocytes # 0.64 L (0.90-5.00) 10*3/uL Monocytes # 1.04 H (0.20-1.00) 10*3/uL Sodium 132 L (137-145) mmol/L Chloride 95 L (98-107) mmol/L Carbon Dioxide (22-30) mmol/L BUN 65 H (9-20) mg/dL Creatinine 3.32 H (0.66-1.25) mg/dL Glucose 214 H (74-99) mg/dL POC Glucose (mg/dL) (70-110) mg/dL Calcium 7.7 L (8.4-10.2) mg/dL Phosphorus 5.6 H (2.5-4.5) mg/dL Urine Protein (Negative) Urine Blood (Negative) Ur Leukocyte Esterase (Negative) Urine RBC (0-5) /hpf Urine WBC (0-5) /hpf Urine WBC Clumps (None) /hpf Urine Bacteria (None) /hpf Crossmatch Assessment and Plan Assessment: Acute kidney injury secondary to ATN secondary to cardiorenal syndrome. Received temporary dialysis catheter 04/17/2025. Received hemodialysis 04/17, 04/18 and again today Acute anemia secondary to above with a hemoglobin of 6.4, status post 2 units of packed red blood cells, current hemoglobin 6.7 Hyperkalemia secondary to above, improved Hyponatremia, improved Metabolic acidosis improved Sinus pause with significant bradycardia requiring temporary venous pacer placement 04/17/2025 Acute exacerbation of chronic diastolic congestive heart failure Acute hypoxic respiratory failure secondary to above, currently on 10 L high flow nasal cannula Moderate to severe mitral regurgitation Pulmonary hypertension History of chronic kidney disease stage IV Diabetes mellitus with hyperglycemia Diabetic neuropathy Coronary artery disease with previous coronary artery bypass grafting Plan: The patient was seen and evaluated Labs and medications reviewed Received a temporary venous pacemaker Received a temporary hemodialysis catheter Received hemodialysis again yesterday and plans for today Most recent potassium 5.0 Nephrology is following Normal saline at 50 mL/h Titrate down the FiO2 as tolerated Prognosis is guarded We will continue to follow I have personally seen and examined the patient, performed the documentation and the assessment and plan as written. Number of minutes spent on the visit: 10 Dictation was produced using [employer] dictation software. Please excuse any grammatical, word or spelling errors.
[2025-04-19 11:04] LABS: Glucose,Whole Blood 187 mg/dL (70-110)
[2025-04-19] MEDS: NON FORMULARY DRUG (Dulaglutide [Trulicity] 4.5 MG/0.5 ML Each) SQ SCH (14:34)
[2025-04-19 16:17] LABS: Basophils # (A) 0.06 10*3/uL (0.00-0.10); Basophils % (A) 0.7 %; Eosinophils # (A) 0.12 10*3/uL (0.04-0.35); Eosinophils % (A) 1.3 %; HCT 26.0 % (39.6-50.0); Lymphocytes # (A) 0.69 10*3/uL (0.90-5.00); Lymphocytes % (A) 7.6 %; MCH 29.2 pg (27.0-32.0); MCHC 31.9 g/dL (32.0-37.0); MCV 91.5 fL (80.0-97.0); Monocytes # (A) 0.95 10*3/uL (0.20-1.00); Monocytes % (A) 10.5 %; Neutrophils # (A) 7.21 10*3/uL (1.80-7.70); Neutrophils % (A) 79.3 %; Platelet Count 103 10*3/uL (140-440); RBC 2.84 10*6/uL (4.40-5.60); RDW 15.1 % (11.5-14.5); WBC 9.08 10*3/uL (4.50-10.00)
[2025-04-19 16:21] LABS: HGB 8.3 g/dL (13.0-17.0)
[2025-04-19 16:50] LABS: Glucose,Whole Blood 155 mg/dL (70-110)
[2025-04-19 19:55] LABS: Glucose,Whole Blood 177 mg/dL (70-110)
--- NOTE | 2025-04-19 20:36 | P.PN ---
Subjective Progress Note Date: 04/19/25 This is a 74-year-old male patient of Dr. Edgar with past medical history of coronary artery disease status post bypass surgery, hypertension, dyslipidemia, chronic heart failure, mitral regurgitation, peripheral artery disease status post amputation of the toes, diabetes. Patient was last seen in the office on 01/10/2025. We have been asked to evaluate the patient for CHF. Patient states the reason he came into the hospital because he fell. He states he started shaking all over his body and fell over. He denies chest pain chest pressure or chest tightness. He does complain of shortness of breath and nausea. Blood pressure 123/49, heart rate in the 50s, pulse ox 95% on room air. Patient has b een started on IV Lasix 40 mg every 12 hours. Patient seen today in the emergency center waiting for a bed on the cardiac stepdown unit. -EKG: Sinus rhythm with no acute ST changes -Chest x-ray: Cardiomegaly and pulmonary vascular congestion. -Laboratory studies: WBC 12.4, hemoglobin 6.6 followed by 7.7. Patient did not receive transfusion. Potassium 5.9, BUN 67, creatinine 2.46, CO2 18, venous pH 7.22, [id number] and bicarb 20. Troponin negative x 1, proBNP 11,400. -Home cardiac medications: Amlodipine 5 mg twice daily, aspirin 81 mg daily, atorvastatin 20 mg at bedtime, Imdur 30 mg daily, metoprolol tartrate 50 mg twice daily, also on ferrous sulfate and levothyroxine. -Echocardiogram performed 03/29/2024 at [facility] revealed EF of 50%, mild mitral and tricuspid regurgitation. No significant pulmonary hypertension. Mitral and aortic valve leaflets are calcified. No significant restriction. -Lexiscan Cardiolite stress test performed at [facility] on 04/02/2024 revealed large fixed defect involving the entire inferior lateral aspect of the left ventricle which may represent old infarct. Unable to exclude small area of inducible ischemia along the mid to apical anterior septal wall. EF 48%. Progress note 04/19/2025 Patient is tolerating hemodialysis, kidney function and potassium are improving Patient has not required transvenous pacemaker. It appears that patient's bradycardia was temporary and was related to hypotension. I remove the transvenous pacemaker today without any complications. Physical examination: Gen: This is a 74-year-old appearing male in no acute distress VS: reviewed HEENT: Head is atraumatic, normocephalic. Pupils equal, round. Sclerae is anicteric. NECK: Supple. No JVD. LUNGS: Diminished breath sounds. No intercostal retractions. HEART: Regular rate and rhythm. No murmur. ABDOMEN: Soft No tenderness. EXTREMITIES: No pedal edema. No calf tenderness. NEUROLOGICAL: Patient is awake, alert and oriented x3. 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 Diabetes mellitus type 2 Hypothyroidism Plan: Do not resume any AV tam blocking agents Continue aspirin, amlodipine, Lipitor Patient is getting IV Lasix as a challenge from nephrology team Consider oral potassium binders as per nephrology recommendations Dialysis as per nephrology Continue ICU support Objective - Vital Signs Vital signs: Vital Signs Temp 97.8 F 04/19/25 20:00 Pulse 70 04/19/25 20:00 Resp 13 04/19/25 20:00 BP 130/58 04/19/25 20:00 Pulse Ox 97 04/19/25 20:00 FiO2 100 04/19/25 13:15 Intake & Output 04/19/25 04/19/25 04/20/25 06:59 18:59 06:59 Intake Total 180 440 0 Output Total 245 340 55 Balance -65 100 -55 Weight 97.6 kg Intake: IV 180 130 0 Sodium Chloride 0.9% 1, 60 20 000 ml @ 50 mls/hr IV . Q20H [facility] Rx#:[id number] Venous Sheath KVO 120 110 0 Blood Product 310 Rc Pheresis 2 As3 Unit 310 [id number] Output: Urine 245 340 55 Other: Voiding Method Indwelling Catheter Indwelling Catheter - Labs CBC & Chem 7: 04/19/25 16:03 04/19/25 06:47 Labs: Abnormal Lab Results - Last 24 Hours (Table) 04/17/25 04/18/25 04/19/25 Range/Units 11:29 22:39 06:18 RBC (4.40-5.60) 10*6/uL Hgb (13.0-17.0) g/dL Hct (39.6-50.0) % MCHC (32.0-37.0) g/dL Plt Count (140-440) 10*3/uL Immature Gran # (0.00-0.04) 10*3/uL Lymphocytes # (0.90-5.00) 10*3/uL Monocytes # (0.20-1.00) 10*3/uL Sodium (137-145) mmol/L Chloride (98-107) mmol/L BUN (9-20) mg/dL Creatinine (0.66-1.25) mg/dL Glucose (74-99) mg/dL POC Glucose (mg/dL) 208 H 233 H (70-110) mg/dL Calcium (8.4-10.2) mg/dL Phosphorus (2.5-4.5) mg/dL Crossmatch See Detail 04/19/25 04/19/25 04/19/25 Range/Units 06:47 06:47 11:03 RBC 2.36 L (4.40-5.60) 10*6/uL Hgb 6.7 L* (13.0-17.0) g/dL Hct 21.7 L (39.6-50.0) % MCHC 30.9 L (32.0-37.0) g/dL Plt Count 96 L (140-440) 10*3/uL Immature Gran # (0.00-0.04) 10*3/uL Lymphocytes # 0.64 L (0.90-5.00) 10*3/uL Monocytes # 1.04 H (0.20-1.00) 10*3/uL Sodium 132 L (137-145) mmol/L Chloride 95 L (98-107) mmol/L BUN 65 H (9-20) mg/dL Creatinine 3.32 H (0.66-1.25) mg/dL Glucose 214 H (74-99) mg/dL POC Glucose (mg/dL) 187 H (70-110) mg/dL Calcium 7.7 L (8.4-10.2) mg/dL Phosphorus 5.6 H (2.5-4.5) mg/dL Crossmatch 04/19/25 04/19/25 04/19/25 Range/Units 16:03 16:47 19:54 RBC 2.84 L (4.40-5.60) 10*6/uL Hgb 8.3 L D (13.0-17.0) g/dL Hct 26.0 L (39.6-50.0) % MCHC 31.9 L (32.0-37.0) g/dL Plt Count 103 L (140-440) 10*3/uL Immature Gran # 0.05 H (0.00-0.04) 10*3/uL Lymphocytes # 0.69 L (0.90-5.00) 10*3/uL Monocytes # (0.20-1.00) 10*3/uL Sodium (137-145) mmol/L Chloride (98-107) mmol/L BUN (9-20) mg/dL Creatinine (0.66-1.25) mg/dL Glucose (74-99) mg/dL POC Glucose (mg/dL) 155 H 177 H (70-110) mg/dL Calcium (8.4-10.2) mg/dL Phosphorus (2.5-4.5) mg/dL Crossmatch
[2025-04-19] MEDS: FUROSEMIDE 10 MG/ML 10 ML VIAL IV ONE (20:44)
[2025-04-20 03:40] LABS: Basophils # (A) 0.05 10*3/uL (0.00-0.10); Basophils % (A) 0.6 %; Eosinophils # (A) 0.24 10*3/uL (0.04-0.35); Eosinophils % (A) 3.1 %; HCT 24.9 % (39.6-50.0); HGB 7.7 g/dL (13.0-17.0); Lymphocytes # (A) 0.79 10*3/uL (0.90-5.00); Lymphocytes % (A) 10.3 %; MCH 28.4 pg (27.0-32.0); MCHC 30.9 g/dL (32.0-37.0); MCV 91.9 fL (80.0-97.0); Monocytes # (A) 0.83 10*3/uL (0.20-1.00); Monocytes % (A) 10.8 %; Neutrophils # (A) 5.74 10*3/uL (1.80-7.70); Neutrophils % (A) 74.6 %; Platelet Count 101 10*3/uL (140-440); RBC 2.71 10*6/uL (4.40-5.60); RDW 15.3 % (11.5-14.5); WBC 7.70 10*3/uL (4.50-10.00)
[2025-04-20 03:57] LABS: African American GFR (CKD) 27 (>60 ml/min/1.73 sqM); Anion Gap 7 mmol/L; Blood Urea Nitrogen 51 mg/dL (9-20); Calcium 7.6 mg/dL (8.4-10.2); Carbon Dioxide 31 mmol/L (22-30); Chloride 95 mmol/L (98-107); Glucose 200 mg/dL (74-99); Non-African American GFR(CKD) 23 (>60 ml/min/1.73 sqM); Potassium 3.7 mmol/L (3.5-5.1); Sodium 133 mmol/L (137-145)
[2025-04-20 06:28] LABS: Glucose,Whole Blood 220 mg/dL (70-110)
--- NOTE | 2025-04-20 06:44 | XR ---
EXAMINATION TYPE: XR chest 1V DATE OF EXAM: 04/20/2025 COMPARISON: 04/18/2025 CLINICAL INDICATION: Male, 74 years old with history of CHF; TECHNIQUE: Single frontal view of the chest is obtained. FINDINGS:. Prior CABG surgery. Mild cardiomegaly. No significant interval change in the diffuse bilateral interstitial and alveolar opacity. No large pleural effusion or pneumothorax. The osseous structures are intact. IMPRESSION: No change in the acute cardiopulmonary process, likely related to CHF and pulmonary edema. [facility], , 04/20/2025 6:42 AM
--- NOTE | 2025-04-20 10:34 | P.PN ---
Subjective Progress Note Date: 04/20/25 This is a 74-year-old male patient with history of coronary artery disease with previous stent placement, subsequent coronary bypass grafting, peripheral arterial disease, diabetes mellitus, diabetic neuropathy, gastroesophageal reflux disease, hypertension, hyperlipidemia, hypothyroidism, former smoker who was brought in from the local long-term with complaints of persistent nausea and shortness of breath. Chest x-ray reveals cardiomegaly and pulmonary vascular congestion. EKG revealed significant sinus pauses and bradycardia. White count 12.4. Hemoglobin 7.7. Platelets 270. Sodium 128. Potassium 7.7. Bicarb 17. BUN 83. Creatinine 3.68. Glucose 483. Acetone negative. proBNP 11,400. Troponin opponent negative x 1. He was taken to the [facility] for temporary venous pacemaker placement. He is seen in consultation in the intensive care unit. He is receiving a hemodialysis catheter. He is maintaining O2 saturations in the 90s on 2 L/min per nasal cannula. He is currently afebrile. Mean arterial pressure 68. Heart rate 60. He is on normal saline at 50 mL/h. Receiving Lasix 40 mg IV every 12 hours. On an insulin drip at 10.7 units/h. The patient is seen today April 18, 2025 in follow-up in the intensive care unit. He is currently resting in bed. Awake and alert in no acute distress. Currently requiring oxygen at 10 L high flow nasal cannula. O2 saturations of 100%. Chest x-ray reveals continued cardiomegaly with pulmonary venous congestion and mixed interstitial and alveolar edema. He did not respond to Lasix yesterday. He is to receive hemodialysis again today. He did require a unit of packed red blood cells last night with a hemoglobin of 6.4. Hemoglobin today 6.7. White count 10.5. Platelets 148. Sodium 133. Potassium 4.9. Bicarb 32. BUN 42. Creatinine 2.56. Glucose 142. Arterial blood gases revealed a PO2 of 210, PCO2 of 55 and a pH of 7.34. He is off the insulin drip. The patient is seen today April 19, 2025 in follow-up in the intensive care unit. He is currently resting in bed. Awake and alert in mild respiratory distress. He is on 15 L high flow nasal cannula plus a nonrebreather mask. He is to receive hemodialysis again today. White count 8.5. Hemoglobin 6.7. Platelets 96,000. Sodium 132. Potassium 5.0. Bicarb 27. BUN 65. Creatinine 3.32. Glucose 214. He remains on Lantus insulin along with Humalog sliding scale. The patient is seen today April 20, 2025 in follow-up in the intensive care unit. He is currently sitting up in bed. Awake and alert in no acute distress. Maintaining good O2 saturations in the 90s on 3 L/min per nasal cannula. No IV fluids. His temporary venous pacemaker was discontinued. He remains on Lantus and Humalog sliding scale. White count 7.7. Hemoglobin 7.7. Platelets 101. Sodium 133. Potassium 3.7. Bicarb 31. BUN 51. Creatinine 2.60. Glucose 200. Chest x-ray reveals mild fluid volume overload. Currently net -650 mL balance. Objective - Vital Signs Vital signs: Vital Signs Temp 98.8 F 04/20/25 08:00 Pulse 82 04/20/25 10:00 Resp 15 04/20/25 10:00 BP 144/62 04/20/25 10:00 Pulse Ox 94 L 04/20/25 10:00 FiO2 100 04/19/25 13:15 Intake & Output 04/19/25 04/20/25 04/20/25 18:59 06:59 18:59 Intake Total 440 0 Output Total 340 755 315 Balance 100 -755 -315 Weight 97.5 kg Intake: IV 130 0 Sodium Chloride 0.9% 1, 20 000 ml @ 50 mls/hr IV . Q20H [facility] Rx#:[id number] Venous Sheath KVO 110 0 Blood Product 310 Rc Pheresis 2 As3 Unit 310 [id number] Output: Urine 340 755 315 Other: Voiding Method Indwelling Catheter Indwelling Catheter Indwelling Catheter - Exam GENERAL EXAM: Alert, 74-year-old male, on 3 L nasal cannula, comfortable in no apparent distress. HEAD: Normocephalic. EYES: Normal reaction of pupils, equal size. NOSE: Clear with pink turbinates. THROAT: No erythema or exudates. NECK: No masses, no JVD. CHEST: No chest wall deformity. LUNGS: Equal air entry with crackles in the posterior bases. CVS: S1 and S2 normal with no audible murmur, regular rhythm. ABDOMEN: No hepatosplenomegaly, normal bowel sounds, no guarding or rigidity. SPINE: No scoliosis or deformity SKIN: No rashes CENTRAL NERVOUS SYSTEM: No focal deficits, tone is normal in all 4 extremities. EXTREMITIES: Right femoral hemodialysis catheter in place. There is no peripheral edema. No clubbing, no cyanosis. Peripheral pulses are intact. - Labs CBC & Chem 7: 04/20/25 02:57 04/20/25 02:57 Labs: Abnormal Lab Results - Last 24 Hours (Table) 04/17/25 04/19/25 04/19/25 Range/Units 11:29 11:03 16:03 RBC 2.84 L (4.40-5.60) 10*6/uL Hgb 8.3 L D (13.0-17.0) g/dL Hct 26.0 L (39.6-50.0) % MCHC 31.9 L (32.0-37.0) g/dL Plt Count 103 L (140-440) 10*3/uL Immature Gran # 0.05 H (0.00-0.04) 10*3/uL Lymphocytes # 0.69 L (0.90-5.00) 10*3/uL Sodium (137-145) mmol/L Chloride (98-107) mmol/L Carbon Dioxide (22-30) mmol/L BUN (9-20) mg/dL Creatinine (0.66-1.25) mg/dL Glucose (74-99) mg/dL POC Glucose (mg/dL) 187 H (70-110) mg/dL Calcium (8.4-10.2) mg/dL Crossmatch See Detail 04/19/25 04/19/25 04/20/25 Range/Units 16:47 19:54 02:57 RBC 2.71 L (4.40-5.60) 10*6/uL Hgb 7.7 L (13.0-17.0) g/dL Hct 24.9 L (39.6-50.0) % MCHC 30.9 L (32.0-37.0) g/dL Plt Count 101 L (140-440) 10*3/uL Immature Gran # 0.05 H (0.00-0.04) 10*3/uL Lymphocytes # 0.79 L (0.90-5.00) 10*3/uL Sodium (137-145) mmol/L Chloride (98-107) mmol/L Carbon Dioxide (22-30) mmol/L BUN (9-20) mg/dL Creatinine (0.66-1.25) mg/dL Glucose (74-99) mg/dL POC Glucose (mg/dL) 155 H 177 H (70-110) mg/dL Calcium (8.4-10.2) mg/dL Crossmatch 04/20/25 04/20/25 Range/Units 02:57 06:26 RBC (4.40-5.60) 10*6/uL Hgb (13.0-17.0) g/dL Hct (39.6-50.0) % MCHC (32.0-37.0) g/dL Plt Count (140-440) 10*3/uL Immature Gran # (0.00-0.04) 10*3/uL Lymphocytes # (0.90-5.00) 10*3/uL Sodium 133 L (137-145) mmol/L Chloride 95 L (98-107) mmol/L Carbon Dioxide 31 H (22-30) mmol/L BUN 51 H (9-20) mg/dL Creatinine 2.60 H (0.66-1.25) mg/dL Glucose 200 H (74-99) mg/dL POC Glucose (mg/dL) 220 H (70-110) mg/dL Calcium 7.6 L (8.4-10.2) mg/dL Crossmatch Assessment and Plan Assessment: Acute kidney injury secondary to ATN secondary to cardiorenal syndrome. Received temporary dialysis catheter 04/17/2025. Received hemodialysis 04/17, 04/18 and 04/19/25 Acute anemia secondary to above with a hemoglobin of 6.4, status post 2 units of packed red blood cells, current hemoglobin 6.7 Hyperkalemia secondary to above, improved Hyponatremia, improved Metabolic acidosis improved Sinus pause with significant bradycardia requiring temporary venous pacer placem ent 04/17/2025 and removed 04/19/2025 Acute exacerbation of chronic diastolic congestive heart failure Acute hypoxic respiratory failure secondary to above, currently on 10 L high flow nasal cannula Moderate to severe mitral regurgitation Pulmonary hypertension History of chronic kidney disease stage IV Diabetes mellitus with hyperglycemia Diabetic neuropathy Coronary artery disease with previous coronary artery bypass grafting Plan: The patient was seen and evaluated Chest x-ray, labs and medications reviewed Temporary venous pacemaker removed yesterday Received hemodialysis again yesterday Received Lasix 80 mg IVP x 1 yesterday Currently net negative balance Most recent potassium 3.7 Nephrology is following Improved and down to 3 L nasal cannula Titrate down the FiO2 as tolerated Could transfer to 3 S. today We will continue to follow I have personally seen and examined the patient, performed the documentation and the assessment and plan as written. Number of minutes spent on the visit: 10 Dictation was produced using [employer] dictation software. Please excuse any gramm atical, word or spelling errors.
--- NOTE | 2025-04-20 10:46 | P.PN ---
Subjective Patient is seen in follow-up for acute kidney injury on chronic kidney disease. Urine output improved to 70-100 cc an hour. Started on hemodialysis April 17, 2025. Last dialysis April 19, 2025. Sitting up in chair. Now on nasal cannula. Vital signs are stable. General: Resting in bed. HEENT: On nasal cannula. LUNGS: Scattered rhonchi. HEART: Rate and Rhythm are regular. ABDOMEN: Obese. EXTREMITITES: Trace edema. Objective - Vital Signs Vital signs: Vital Signs Temp 98.8 F 04/20/25 08:00 Pulse 82 04/20/25 10:00 Resp 15 04/20/25 10:00 BP 144/62 04/20/25 10:00 Pulse Ox 94 L 04/20/25 10:00 FiO2 100 04/19/25 13:15 Intake & Output 04/19/25 04/20/25 04/20/25 18:59 06:59 18:59 Intake Total 440 0 Output Total 340 755 315 Balance 100 -755 -315 Weight 97.5 kg Intake: IV 130 0 Sodium Chloride 0.9% 1, 20 000 ml @ 50 mls/hr IV . [facility]H [facility] Rx#:[id number] Venous Sheath KVO 110 0 Blood Product 310 Rc Pheresis 2 As3 Unit 310 [id number] Output: Urine 340 755 315 Other: Voiding Method Indwelling Catheter Indwelling Catheter Indwelling Catheter - Labs CBC & Chem 7: 04/20/25 02:57 04/20/25 02:57 Labs: Abnormal Lab Results - Last 24 Hours (Table) 04/17/25 04/19/25 04/19/25 Range/Units 11:29 11:03 16:03 RBC 2.84 L (4.40-5.60) 10*6/uL Hgb 8.3 L D (13.0-17.0) g/dL Hct 26.0 L (39.6-50.0) % MCHC 31.9 L (32.0-37.0) g/dL Plt Count 103 L (140-440) 10*3/uL Immature Gran # 0.05 H (0.00-0.04) 10*3/uL Lymphocytes # 0.69 L (0.90-5.00) 10*3/uL Sodium (137-145) mmol/L Chloride (98-107) mmol/L Carbon Dioxide (22-30) mmol/L BUN (9-20) mg/dL Creatinine (0.66-1.25) mg/dL Glucose (74-99) mg/dL POC Glucose (mg/dL) 187 H (70-110) mg/dL Calcium (8.4-10.2) mg/dL Crossmatch See Detail 04/19/25 04/19/25 04/20/25 Range/Units 16:47 19:54 02:57 RBC 2.71 L (4.40-5.60) 10*6/uL Hgb 7.7 L (13.0-17.0) g/dL Hct 24.9 L (39.6-50.0) % MCHC 30.9 L (32.0-37.0) g/dL Plt Count 101 L (140-440) 10*3/uL Immature Gran # 0.05 H (0.00-0.04) 10*3/uL Lymphocytes # 0.79 L (0.90-5.00) 10*3/uL Sodium (137-145) mmol/L Chloride (98-107) mmol/L Carbon Dioxide (22-30) mmol/L BUN (9-20) mg/dL Creatinine (0.66-1.25) mg/dL Glucose (74-99) mg/dL POC Glucose (mg/dL) 155 H 177 H (70-110) mg/dL Calcium (8.4-10.2) mg/dL Crossmatch 04/20/25 04/20/25 Range/Units 02:57 06:26 RBC (4.40-5.60) 10*6/uL Hgb (13.0-17.0) g/dL Hct (39.6-50.0) % MCHC (32.0-37.0) g/dL Plt Count (140-440) 10*3/uL Immature Gran # (0.00-0.04) 10*3/uL Lymphocytes # (0.90-5.00) 10*3/uL Sodium 133 L (137-145) mmol/L Chloride 95 L (98-107) mmol/L Carbon Dioxide 31 H (22-30) mmol/L BUN 51 H (9-20) mg/dL Creatinine 2.60 H (0.66-1.25) mg/dL Glucose 200 H (74-99) mg/dL POC Glucose (mg/dL) 220 H (70-110) mg/dL Calcium 7.6 L (8.4-10.2) mg/dL Crossmatch Assessment and Plan Plan: Assessment: 1. Acute kidney injury secondary to ATN secondary to cardiorenal syndrome. Started on hemodialysis April 17, 2025 due to refractory hyperkalemia and oliguria. Has femoral catheter. Kidney ultrasound from December 2024 showed no evidence of hydronephrosis. Now nonoliguric. 2. Chronic kidney disease stage IV with baseline creatinine 2.2-2.3. Etiology is diabetic kidney disease. 3. Hyperkalemia secondary to acute kidney injury and acidosis. Improved with dialysis. 4. Acute on chronic systolic CHF with ejection fraction of 40 to 45% with moderate mitral and tricuspid regurgitation. 5. Diabetes mellitus. 6. Coronary disease status post CABG. 7. Cardiac arrhythmia secondary to hyperkalemia. 8. Acute blood loss anemia status post blood transfusions. Also received IV DDAVP. Plan: Hold off on hemodialysis and monitor for renal recovery. Add IV Lasix 60 mg twice daily. Avoid nephrotoxins. Continue to monitor renal function and urine output. Replace potassium.
[2025-04-20] MEDS: FUROSEMIDE 10 MG/ML 10 ML VIAL IV SCH (11:12)
[2025-04-20] MEDS: POTASSIUM CHLORIDE ER 10 MEQ TAB.ER.PRT PO STA (11:12)
[2025-04-20 11:19] LABS: Glucose,Whole Blood 413 mg/dL (70-110)
[2025-04-20] MEDS: INSULIN LISPRO (HumaLOG) 100 UNIT/ML 10 mL VL SQ SCH (12:17)
--- NOTE | 2025-04-20 15:47 | P.PN ---
Subjective Progress Note Date: 04/19/25 74-year-old male patient with history of coronary artery disease with previous stent placement, subsequent coronary bypass grafting, peripheral arterial disease, diabetes mellitus, diabetic neuropathy, gastroesophageal reflux disease, hypertension, hyperlipidemia, hypothyroidism, former smoker who was bro ught in from the local half-way with complaints of persistent nausea and shortness of breath. Chest x-ray reveals cardiomegaly and pulmonary vascular congestion. EKG revealed significant sinus pauses and bradycardia. White count 12.4. Hemoglobin 7.7. Platelets 270. Sodium 128. Potassium 7.7. Bicarb 17. BUN 83. Creatinine 3.68. Glucose 483. Acetone negative. proBNP 11,400. Troponin opponent negative x 1. He was taken to the [facility] for temporary venous pacemaker placement. He is seen in consultation in the intensive care unit. He is receiving a hemodialysis catheter. He is maintaining O2 saturations in the 90s on 2 L/min per nasal cannula. He is currently afebrile. Mean arterial pressure 68. Heart rate 60. He is on normal saline at 50 mL/h. Receiving Lasix 40 mg IV every 12 hours. On an insulin drip at 10.7 units/h. Objective - Vital Signs Vital signs: Vital Signs Temp 98.2 F 04/19/25 09:49 Pulse 80 04/19/25 09:49 Resp 22 04/19/25 09:49 BP 158/68 04/19/25 09:49 Pulse Ox 100 04/19/25 09:49 FiO2 100 04/19/25 08:45 Intake & Output 04/18/25 04/19/25 04/19/25 18:59 06:59 18:59 Intake Total 710 180 30 Output Total 760 245 65 Balance -50 -65 -35 Weight 97.6 kg Intake: IV 410 180 30 Sodium Chloride 0.9% 1, 300 60 10 000 ml @ 50 mls/hr IV . Q20H [facility] Rx#:[id number] Venous Sheath KVO 110 120 20 Blood Product 0 Rc Pheresis 2 As3 Unit 0 [id number] Hemodialysis 300 Output: Urine 260 245 65 Hemodialysis 400 Hemodialysis Net Amount 100 Other: Voiding Method Indwelling Catheter Indwelling Catheter - Exam GENERAL EXAM: Alert, weak 74-year-old male, on 15 L high flow nasal cannula plus a nonrebreather mask, fairly comfortable in no apparent distress. HEAD: Normocephalic. EYES: Normal reaction of pupils, equal size. THROAT: No erythema or exudates. NECK: No masses, no JVD. CHEST: No chest wall deformity. LUNGS: Equal air entry with crackles in the posterior bases. CVS: S1 and S2 normal with no audible murmur, regular rhythm. ABDOMEN: No hepatosplenomegaly, normal bowel sounds, no guarding or rigidity. CENTRAL NERVOUS SYSTEM: No focal deficits, tone is normal in all 4 extremities. EXTREMITIES: Right femoral hemodialysis catheter in place. There is no peripheral edema. No clubbing, no cyanosis. Peripheral pulses are intact. - Labs CBC & Chem 7: 04/20/25 02:57 04/20/25 02:57 Labs: Abnormal Lab Results - Last 24 Hours (Table) 04/17/25 04/18/25 04/18/25 Range/Units 11:29 09:22 09:55 RBC (4.40-5.60) 10*6/uL Hgb (13.0-17.0) g/dL Hct (39.6-50.0) % MCHC (32.0-37.0) g/dL Plt Count (140-440) 10*3/uL Lymphocytes # (0.90-5.00) 10*3/uL Monocytes # (0.20-1.00) 10*3/uL Sodium 133 L (137-145) mmol/L Chloride 96 L (98-107) mmol/L Carbon Dioxide 32 H (22-30) mmol/L BUN 42 H (9-20) mg/dL Creatinine 2.56 H (0.66-1.25) mg/dL Glucose 142 H (74-99) mg/dL POC Glucose (mg/dL) (70-110) mg/dL Calcium 7.4 L (8.4-10.2) mg/dL Phosphorus (2.5-4.5) mg/dL Urine Protein 2+ H (Negative) Urine Blood Large H (Negative) Ur Leukocyte Esterase Large H (Negative) Urine RBC 50 H (0-5) /hpf Urine WBC >182 H (0-5) /hpf Urine WBC Clumps Many H (None) /hpf Urine Bacteria Many H (None) /hpf Crossmatch See Detail 06/20/25 06/20/25 06/20/25 Range/Units 10:06 12:00 15:04 RBC (4.40-5.60) 10*6/uL Hgb (13.0-17.0) g/dL Hct (39.6-50.0) % MCHC (32.0-37.0) g/dL Plt Count (140-440) 10*3/uL Lymphocytes # (0.90-5.00) 10*3/uL Monocytes # (0.20-1.00) 10*3/uL Sodium (137-145) mmol/L Chloride (98-107) mmol/L Carbon Dioxide (22-30) mmol/L BUN (9-20) mg/dL Creatinine (0.66-1.25) mg/dL Glucose (74-99) mg/dL POC Glucose (mg/dL) 148 H 160 H 177 H (70-110) mg/dL Calcium (8.4-10.2) mg/dL Phosphorus (2.5-4.5) mg/dL Urine Protein (Negative) Urine Blood (Negative) Ur Leukocyte Esterase (Negative) Urine RBC (0-5) /hpf Urine WBC (0-5) /hpf Urine WBC Clumps (None) /hpf Urine Bacteria (None) /hpf Crossmatch 04/18/25 04/18/25 04/19/25 Range/Units 17:05 22:39 06:18 RBC (4.40-5.60) 10*6/uL Hgb (13.0-17.0) g/dL Hct (39.6-50.0) % MCHC (32.0-37.0) g/dL Plt Count (140-440) 10*3/uL Lymphocytes # (0.90-5.00) 10*3/uL Monocytes # (0.20-1.00) 10*3/uL Sodium (137-145) mmol/L Chloride (98-107) mmol/L Carbon Dioxide (22-30) mmol/L BUN (9-20) mg/dL Creatinine (0.66-1.25) mg/dL Glucose (74-99) mg/dL POC Glucose (mg/dL) 195 H 208 H 233 H (70-110) mg/dL Calcium (8.4-10.2) mg/dL Phosphorus (2.5-4.5) mg/dL Urine Protein (Negative) Urine Blood (Negative) Ur Leukocyte Esterase (Negative) Urine RBC (0-5) /hpf Urine WBC (0-5) /hpf Urine WBC Clumps (None) /hpf Urine Bacteria (None) /hpf Crossmatch 04/19/25 04/19/25 Range/Units 06:47 06:47 RBC 2.36 L (4.40-5.60) 10*6/uL Hgb 6.7 L* (13.0-17.0) g/dL Hct 21.7 L (39.6-50.0) % MCHC 30.9 L (32.0-37.0) g/dL Plt Count 96 L (140-440) 10*3/uL Lymphocytes # 0.64 L (0.90-5.00) 10*3/uL Monocytes # 1.04 H (0.20-1.00) 10*3/uL Sodium 132 L (137-145) mmol/L Chloride 95 L (98-107) mmol/L Carbon Dioxide (22-30) mmol/L BUN 65 H (9-20) mg/dL Creatinine 3.32 H (0.66-1.25) mg/dL Glucose 214 H (74-99) mg/dL POC Glucose (mg/dL) (70-110) mg/dL Calcium 7.7 L (8.4-10.2) mg/dL Phosphorus 5.6 H (2.5-4.5) mg/dL Urine Protein (Negative) Urine Blood (Negative) Ur Leukocyte Esterase (Negative) Urine RBC (0-5) /hpf Urine WBC (0-5) /hpf Urine WBC Clumps (None) /hpf Urine Bacteria (None) /hpf Crossmatch Assessment and Plan Assessment: Acute kidney injury secondary to ATN secondary to cardiorenal syndrome. Received temporary dialysis catheter 04/17/2025. Received hemodialysis 04/17, 04/18 and again today Acute anemia secondary to above with a hemoglobin of 6.4, status post 2 units of packed red blood cells, current hemoglobin 6.7 Hyperkalemia secondary to above, improved Hyponatremia, improved Metabolic acidosis improved Sinus pause with significant bradycardia requiring temporary venous pacer placement 04/17/2025 Acute exacerbation of chronic diastolic congestive heart failure Acute hypoxic respiratory failure secondary to above, currently on 10 L high flow nasal cannula Moderate to severe mitral regurgitation History of chronic kidney disease stage IV Diabetes mellitus with hyperglycemia//Diabetic neuropathy Coronary artery disease with previous coronary artery bypass grafting Received a temporary venous pacemaker Received a temporary hemodialysis catheter Received hemodialysis again yesterday and plans for today Most recent potassium 5.0 Nephrology is following Normal saline at 50 mL/h Titrate down the FiO2 as tolerated Prognosis is guarded
--- NOTE | 2025-04-20 15:51 | P.PN ---
Subjective Progress Note Date: 04/20/25 74-year-old male patient with history of coronary artery disease with previous stent placement, subsequent coronary bypass grafting, peripheral arterial disease, diabetes mellitus, diabetic neuropathy, gastroesophageal reflux disease, hypertension, hyperlipidemia, hypothyroidism, former smoker who was bro ught in from the local intermediate with complaints of persistent nausea and shortness of breath. Chest x-ray reveals cardiomegaly and pulmonary vascular congestion. EKG revealed significant sinus pauses and bradycardia. White count 12.4. Hemoglobin 7.7. Platelets 270. Sodium 128. Potassium 7.7. Bicarb 17. BUN 83. Creatinine 3.68. Glucose 483. Acetone negative. proBNP 11,400. Troponin opponent negative x 1. He was taken to the [facility] for temporary venous pacemaker placement. He is seen in consultation in the intensive care unit. He is receiving a hemodialysis catheter. He is maintaining O2 saturations in the 90s on 2 L/min per nasal cannula. He is currently afebrile. Mean arterial pressure 68. Heart rate 60. He is on normal saline at 50 mL/h. Receiving Lasix 40 mg IV every 12 hours. On an insulin drip at 10.7 units/h. 04/20/2025 Patient is seen and evaluated in follow-up in the intensive care unit. He is currently sitting up in bed. Awake and alert in no acute distress. Maintaining good O2 saturations in the 90s on 3 L/min per nasal cannula. No IV fluids. - His temporary venous pacemaker was discontinued. Patient remains on Lantus and Humalog sliding scale; with Accu-Cheks before every meal and at bedtime with insulin sliding. Blood work is reviewed white count 7.7. Hemoglobin 7.7. Platelets 101. Sodium 133. Potassium 3.7. Bicarb 31. BUN 51. Creatinine 2.60. Glucose 200. - Chest x-ray reveals mild fluid volume overload; patient received Lasix 80 mg IV push x 1 yesterday --Hemodialysis, third session done yesterday - We will continue to monitor electrolytes - O2 saturation markedly improved currently on 3 L per nasal cannula Objective - Vital Signs Vital signs: Vital Signs Temp 98.8 F 04/20/25 08:00 Pulse 71 04/20/25 09:00 Resp 24 04/20/25 09:00 BP 148/66 04/20/25 09:00 Pulse Ox 95 04/20/25 09:00 FiO2 100 04/19/25 13:15 Intake & Output 04/19/25 04/20/25 04/20/25 18:59 06:59 18:59 Intake Total 440 0 Output Total 340 755 315 Balance 100 -755 -315 Weight 97.5 kg Intake: IV 130 0 Sodium Chloride 0.9% 1, 20 000 ml @ 50 mls/hr IV . Q20H [facility] Rx#:[id number] Venous Sheath KVO 110 0 Blood Product 310 Rc Pheresis 2 As3 Unit 310 [id number] Output: Urine 340 755 315 Other: Voiding Method Indwelling Catheter Indwelling Catheter Indwelling Catheter - Exam GENERAL EXAM: Alert, weak 74-year-old male, on 15 L high flow nasal cannula plus a nonrebreather mask, fairly comfortable in no apparent distress. HEAD: Normocephalic. EYES: Normal reaction of pupils, equal size. THROAT: No erythema or exudates. NECK: No masses, no JVD. CHEST: No chest wall deformity. LUNGS: Equal air entry with crackles in the posterior bases. CVS: S1 and S2 normal with no audible murmur, regular rhythm. ABDOMEN: No hepatosplenomegaly, normal bowel sounds, no guarding or rigidity. CENTRAL NERVOUS SYSTEM: No focal deficits, tone is normal in all 4 extremities. EXTREMITIES: Right femoral hemodialysis catheter in place. There is no peripheral edema. No clubbing, no cyanosis. Peripheral pulses are intact. - Labs CBC & Chem 7: 04/20/25 02:57 04/20/25 02:57 Labs: Abnormal Lab Results - Last 24 Hours (Table) 04/17/25 04/19/25 04/19/25 Range/Units 11:29 11:03 16:03 RBC 2.84 L (4.40-5.60) 10*6/uL Hgb 8.3 L D (13.0-17.0) g/dL Hct 26.0 L (39.6-50.0) % MCHC 31.9 L (32.0-37.0) g/dL Plt Count 103 L (140-440) 10*3/uL Immature Gran # 0.05 H (0.00-0.04) 10*3/uL Lymphocytes # 0.69 L (0.90-5.00) 10*3/uL Sodium (137-145) mmol/L Chloride (98-107) mmol/L Carbon Dioxide (22-30) mmol/L BUN (9-20) mg/dL Creatinine (0.66-1.25) mg/dL Glucose (74-99) mg/dL POC Glucose (mg/dL) 187 H (70-110) mg/dL Calcium (8.4-10.2) mg/dL Crossmatch See Detail 04/19/25 04/19/25 04/20/25 Range/Units 16:47 19:54 02:57 RBC 2.71 L (4.40-5.60) 10*6/uL Hgb 7.7 L (13.0-17.0) g/dL Hct 24.9 L (39.6-50.0) % MCHC 30.9 L (32.0-37.0) g/dL Plt Count 101 L (140-440) 10*3/uL Immature Gran # 0.05 H (0.00-0.04) 10*3/uL Lymphocytes # 0.79 L (0.90-5.00) 10*3/uL Sodium (137-145) mmol/L Chloride (98-107) mmol/L Carbon Dioxide (22-30) mmol/L BUN (9-20) mg/dL Creatinine (0.66-1.25) mg/dL Glucose (74-99) mg/dL POC Glucose (mg/dL) 155 H 177 H (70-110) mg/dL Calcium (8.4-10.2) mg/dL Crossmatch 04/20/25 04/20/25 Range/Units 02:57 06:26 RBC (4.40-5.60) 10*6/uL Hgb (13.0-17.0) g/dL Hct (39.6-50.0) % MCHC (32.0-37.0) g/dL Plt Count (140-440) 10*3/uL Immature Gran # (0.00-0.04) 10*3/uL Lymphocytes # (0.90-5.00) 10*3/uL Sodium 133 L (137-145) mmol/L Chloride 95 L (98-107) mmol/L Carbon Dioxide 31 H (22-30) mmol/L BUN 51 H (9-20) mg/dL Creatinine 2.60 H (0.66-1.25) mg/dL Glucose 200 H (74-99) mg/dL POC Glucose (mg/dL) 220 H (70-110) mg/dL Calcium 7.6 L (8.4-10.2) mg/dL Crossmatch Assessment and Plan Assessment: Acute kidney injury secondary to ATN secondary to cardiorenal syndrome. Received temporary dialysis catheter 04/17/2025. Received hemodialysis 04/17, 04/18 and again today Acute anemia secondary to above with a hemoglobin of 6.4, status post 2 units of packed red blood cells, current hemoglobin 6.7 Hyperkalemia secondary to above, improved Hyponatremia, improved Metabolic acidosis improved Sinus pause with significant bradycardia requiring temporary venous pacer placement 04/17/2025 Acute exacerbation of chronic diastolic congestive heart failure Acute hypoxic respiratory failure secondary to above, currently on 10 L high flow nasal cannula Moderate to severe mitral regurgitation History of chronic kidney disease stage IV Diabetes mellitus with hyperglycemia//Diabetic neuropathy Coronary artery disease with previous coronary artery bypass grafting Received a temporary venous pacemaker Received a temporary hemodialysis catheter Received hemodialysis again yesterday and plans for today Most recent potassium 5.0 Nephrology is following Normal saline at 50 mL/h Titrate down the FiO2 as tolerated Prognosis is guarded
[2025-04-20 17:09] LABS: Glucose,Whole Blood 276 mg/dL (70-110)
--- NOTE | 2025-04-20 18:18 | P.PN ---
Subjective Progress Note Date: 04/20/25 This is a 74-year-old male patient of Dr. Edgar with past medical history of coronary artery disease status post bypass surgery, hypertension, dyslipidemia, chronic heart failure, mitral regurgitation, peripheral artery disease status post amputation of the toes, diabetes. Patient was last seen in the office on 01/10/2025. We have been asked to evaluate the patient for CHF. Patient states the reason he came into the hospital because he fell. He states he started shaking all over his body and fell over. He denies chest pain chest pressure or chest tightness. He does complain of shortness of breath and nausea. Blood pressure 123/49, heart rate in the 50s, pulse ox 95% on room air. Patient has b een started on IV Lasix 40 mg every 12 hours. Patient seen today in the emergency center waiting for a bed on the cardiac stepdown unit. -EKG: Sinus rhythm with no acute ST changes -Chest x-ray: Cardiomegaly and pulmonary vascular congestion. -Laboratory studies: WBC 12.4, hemoglobin 6.6 followed by 7.7. Patient did not receive transfusion. Potassium 5.9, BUN 67, creatinine 2.46, CO2 18, venous pH 7.22, BKP288 and bicarb 20. Troponin negative x 1, proBNP 11,400. -Home cardiac medications: Amlodipine 5 mg twice daily, aspirin 81 mg daily, atorvastatin 20 mg at bedtime, Imdur 30 mg daily, metoprolol tartrate 50 mg twice daily, also on ferrous sulfate and levothyroxine. -Echocardiogram performed 03/29/2024 at [facility] revealed EF of 50%, mild mitral and tricuspid regurgitation. No significant pulmonary hypertension. Mitral and aortic valve leaflets are calcified. No significant restriction. -Lexiscan Cardiolite stress test performed at [facility] on 04/02/2024 revealed large fixed defect involving the entire inferior lateral aspect of the left ventricle which may represent old infarct. Unable to exclude small area of inducible ischemia along the mid to apical anterior septal wall. EF 48%. Progress note 04/19/2025 Patient is tolerating hemodialysis, kidney function and potassium are improving Patient has not required transvenous pacemaker. It appears that patient's bradycardia was temporary and was related to hypotension. I remove the transvenous pacemaker today without any complications. 04/20/2025 BP 145/68, heart rate 70 BUN 51, creatinine 2.6, Telemetry shows sinus rhythm with no significant bradycardia Transfer out of ICU to telemetry floor today Physical examination: LUNGS: Diminished breath sounds. No intercostal retractions. HEART: Regular rate and rhythm. No murmur. ABDOMEN: Soft No tenderness. EXTREMITIES: No pedal edema. No calf tenderness. NEUROLOGICAL: Patient is awake, alert and oriented x3. 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 Cardiology team signed off,. Please reconsult us in case of any question Follow-up outpatient recommended with Dr. Salinas in next 1 to 2 weeks Objective - Vital Signs Vital signs: Vital Signs Temp 97.9 F 04/20/25 15:01 Pulse 63 04/20/25 15:01 Resp 18 04/20/25 17:23 BP 145/68 04/20/25 15:01 Pulse Ox 97 04/20/25 17:23 FiO2 100 04/19/25 13:15 Intake & Output 04/19/25 04/20/25 04/20/25 18:59 06:59 18:59 Intake Total 440 0 Output Total 340 755 690 Balance 100 -755 -690 Weight 97.5 kg Intake: IV 130 0 Sodium Chloride 0.9% 1, 20 000 ml @ 50 mls/hr IV . Q20H [facility] Rx#:[id number] Venous Sheath KVO 110 0 Blood Product 310 Rc Pheresis 2 As3 Unit 310 [id number] Output: Urine 340 755 690 Other: Voiding Method Indwelling Catheter Indwelling Catheter Indwelling Catheter - Labs CBC & Chem 7: 04/20/25 02:57 04/20/25 02:57 Labs: Abnormal Lab Results - Last 24 Hours (Table) 04/19/25 04/20/25 04/20/25 Range/Units 19:54 02:57 02:57 RBC 2.71 L (4.40-5.60) 10*6/uL Hgb 7.7 L (13.0-17.0) g/dL Hct 24.9 L (39.6-50.0) % MCHC 30.9 L (32.0-37.0) g/dL Plt Count 101 L (140-440) 10*3/uL Immature Gran # 0.05 H (0.00-0.04) 10*3/uL Lymphocytes # 0.79 L (0.90-5.00) 10*3/uL Sodium 133 L (137-145) mmol/L Chloride 95 L (98-107) mmol/L Carbon Dioxide 31 H (22-30) mmol/L BUN 51 H (9-20) mg/dL Creatinine 2.60 H (0.66-1.25) mg/dL Glucose 200 H (74-99) mg/dL POC Glucose (mg/dL) 177 H (70-110) mg/dL Calcium 7.6 L (8.4-10.2) mg/dL 04/20/25 04/20/25 04/20/25 Range/Units 06:26 11:17 16:54 RBC (4.40-5.60) 10*6/uL Hgb (13.0-17.0) g/dL Hct (39.6-50.0) % MCHC (32.0-37.0) g/dL Plt Count (140-440) 10*3/uL Immature Gran # (0.00-0.04) 10*3/uL Lymphocytes # (0.90-5.00) 10*3/uL Sodium (137-145) mmol/L Chloride (98-107) mmol/L Carbon Dioxide (22-30) mmol/L BUN (9-20) mg/dL Creatinine (0.66-1.25) mg/dL Glucose (74-99) mg/dL POC Glucose (mg/dL) 220 H 413 H 276 H (70-110) mg/dL Calcium (8.4-10.2) mg/dL
[2025-04-20 19:53] LABS: Glucose,Whole Blood 287 mg/dL (70-110)
[2025-04-21 05:51] LABS: Glucose,Whole Blood 250 mg/dL (70-110)
--- NOTE | 2025-04-21 11:00 | P.PN ---
Subjective 74-year-old male patient with history of coronary artery disease with previous stent placement, subsequent coronary bypass grafting, peripheral arterial disease, diabetes mellitus, diabetic neuropathy, gastroesophageal reflux disease, hypertension, hyperlipidemia, hypothyroidism, former smoker who was brought in from the local [place] [facility] with complaints of persistent nausea and shortness of breath. Chest x-ray reveals cardiomegaly and pulmonary vascular congestion. EKG revealed significant sinus pauses and bradycardia. White count 12.4. Hemoglobin 7.7. Platelets 270. Sodium 128. Potassium 7.7. Bicarb 17. BUN 83. Creatinine 3.68. Glucose 483. Acetone negative. proBNP 11,400. Troponin opponent negative x 1. He was taken to the [facility] for temporary venous pacemaker placement. He is seen in consultation in the intensive care unit. He is receiving a hemodialysis catheter. He is maintaining O2 saturations in the 90s on 2 L/min per nasal cannula. He is currently afebrile. Mean arterial pressure 68. Heart rate 60. He is on normal saline at 50 mL/h. Receiving Lasix 40 mg IV every 12 hours. On an insulin drip at 10.7 units/h. 04/20/2025 Patient is seen and evaluated in follow-up in the intensive care unit. He is currently sitting up in bed. Awake and alert in no acute distress. Maintaining good O2 saturations in the 90s on 3 L/min per nasal cannula. No IV fluids. - His temporary venous pacemaker was discontinued. Patient remains on Lantus and Humalog sliding scale; with Accu-Cheks before every meal and at bedtime with insulin sliding. Blood work is reviewed white count 7.7. Hemoglobin 7.7. Platelets 101. Sodium 133. Potassium 3.7. Bicarb 31. BUN 51. Creatinine 2.60. Glucose 200. - Chest x-ray reveals mild fluid volume overload; patient received Lasix 80 mg IV push x 1 yesterday --Hemodialysis, third session done yesterday - We will continue to monitor electrolytes - O2 saturation markedly improved currently on 3 L per nasal cannula 04/21 This is a pleasant 74 years old male who presents with acute CHF exacerbation, EF is 40 to 45% Also patient was found to have severe anemia status post 2 units of blood transfusion and thrombocytopenia which is mild but acute kidney injury was worsening and he was started on hemodialysis on 04/17. Patient is a known case of stage IV chronic kidney disease. Continue with IV Lasix per nephrology currently on 60 mg twice daily continue and electrolytes. Nephrology team consult Vital stable Creatinine 2.6 yesterday. Which is improving Check labs tomorrow Objective - Vital Signs Vital signs: Vital Signs Temp 97.5 F L 04/21/25 08:46 Pulse 76 04/21/25 08:46 Resp 20 04/21/25 08:46 BP 164/76 04/21/25 08:46 Pulse Ox 94 L 04/21/25 08:46 FiO2 100 04/19/25 13:15 Intake & Output 04/20/25 04/21/25 04/21/25 18:59 06:59 18:59 Intake Total 237 118 Output Total 690 2050 1000 Balance -750 -7316 -494 Weight 97.5 kg Intake: Oral 237 118 Output: Urine 690 2050 1000 Other: Voiding Method Indwelling Catheter Indwelling Catheter Indwelling Catheter # Voids 1 - Exam GENERAL: The patient is alert and oriented x3, not in any acute distress. Well developed, well nourished. HEENT: Pupils are round and equally reacting to light. EOMI. No scleral icterus. No conjunctival pallor. Normocephalic, atraumatic. No pharyngeal erythema. No thyromegaly. CARDIOVASCULAR: S1 and S2 present. No murmurs, rubs, or gallops. PULMONARY: Chest is clear to auscultation, no wheezing , no crackles. ABDOMEN: Soft, nontender, nondistended, normoactive bowel sounds. No palpable or ganomegaly. MUSCULOSKELETAL: No joint swelling or deformity. EXTREMITIES: No cyanosis, clubbing, or pedal edema. NEUROLOGICAL: Gross neurological examination did not reveal any focal deficits. SKIN: No rashes. no petechiae. - Labs CBC & Chem 7: 04/20/25 02:57 04/20/25 02:57 Labs: Abnormal Lab Results - Last 24 Hours (Table) 04/20/25 04/20/25 04/20/25 Range/Units 11:17 16:54 19:52 POC Glucose (mg/dL) 413 H 276 H 287 H (70-110) mg/dL 04/21/25 Range/Units 05:50 POC Glucose (mg/dL) 250 H (70-110) mg/dL Assessment and Plan Assessment: Acute kidney injury secondary to ATN secondary to cardiorenal syndrome. Received temporary dialysis catheter 04/17/2025. Received hemodialysis 04/17, 04/18 and 04/20 Acute anemia secondary to above with a hemoglobin of 6.4, status post 2 units of packed red blood cells, improved Hyperkalemia secondary to above, improved Hyponatremia, improved Metabolic acidosis improved Sinus pause with significant bradycardia requiring temporary venous pacer placement 04/17/2025 Acute exacerbation of chronic diastolic congestive heart failure Acute hypoxic respiratory failure secondary to above, currently on 10 L high flow nasal cannula Moderate to severe mitral regurgitation History of chronic kidney disease stage IV Diabetes mellitus with hyperglycemia//Diabetic neuropathy Coronary artery disease with previous coronary artery bypass grafting Plan: Continue with IV Lasix per nephrology team Monitor creatinine and electrolytes Nephrology team consult Cardiology and pulmonary team consult Labs and medication were reviewed.. Continue same treatment. Continue with symptomatic treatment. Resume home medication. Monitor labs and vitals. DVT and GI prophylaxis. Further recommendations as per clinical course of the patient DVT prophylaxis: no Subcutaneous heparin for severe anemia GI Prophylaxis: Pepcid and Protonix PT/OT: Pending Prognosis is guarded
[2025-04-21 11:17] LABS: African American GFR (CKD) 25 (>60 ml/min/1.73 sqM); Anion Gap 8 mmol/L; Blood Urea Nitrogen 68 mg/dL (9-20); Calcium 8.1 mg/dL (8.4-10.2); Carbon Dioxide 34 mmol/L (22-30); Chloride 95 mmol/L (98-107); Glucose 222 mg/dL (74-99); Non-African American GFR(CKD) 22 (>60 ml/min/1.73 sqM); Potassium 3.6 mmol/L (3.5-5.1); Sodium 137 mmol/L (137-145)
[2025-04-21 11:21] LABS: Glucose,Whole Blood 263 mg/dL (70-110)
[2025-04-21 16:10] LABS: Glucose,Whole Blood 353 mg/dL (70-110)
--- NOTE | 2025-04-21 17:51 | P.PN ---
Subjective Patient is seen for follow-up for acute kidney injury. Started hemodialysis on 04/17/2025 Good urine output noted, 2.7 L for 24 hours Last hemodialysis on 05/19/2025 No significant complaints today. Objective - Vital Signs Vital signs: Vital Signs Temp 98.5 F 04/21/25 15:57 Pulse 83 04/21/25 15:57 Resp 20 04/21/25 15:57 BP 156/78 04/21/25 15:57 Pulse Ox 97 04/21/25 15:57 FiO2 100 04/19/25 13:15 Intake & Output 04/20/25 04/21/25 04/21/25 18:59 06:59 18:59 Intake Total 237 236 Output Total 690 2050 2600 Balance -752 -3065 -5331 Weight 97.5 kg Intake: Oral 237 236 Output: Urine 690 2050 2600 Other: Voiding Method Indwelling Catheter Indwelling Catheter Indwelling Catheter # Voids 1 - Exam Patient is awake, comfortable, no acute distress Examination of the heart S1 and S2 Examination of the lungs bilateral breath sounds are heard Abdomen soft nontender Examination lower extremity shows no evidence of edema. [employer] exam grossly intact - Labs CBC & Chem 7: 04/20/25 02:57 04/21/25 10:48 Labs: Abnormal Lab Results - Last 24 Hours (Table) 04/20/25 04/21/25 04/21/25 Range/Units 19:52 05:50 10:48 Chloride 95 L (98-107) mmol/L Carbon Dioxide 34 H (22-30) mmol/L BUN 68 H (9-20) mg/dL Creatinine 2.77 H (0.66-1.25) mg/dL Glucose 222 H (74-99) mg/dL POC Glucose (mg/dL) 287 H 250 H (70-110) mg/dL Calcium 8.1 L (8.4-10.2) mg/dL 04/21/25 04/21/25 Range/Units 11:19 16:08 Chloride (98-107) mmol/L Carbon Dioxide (22-30) mmol/L BUN (9-20) mg/dL Creatinine (0.66-1.25) mg/dL Glucose (74-99) mg/dL POC Glucose (mg/dL) 263 H 353 H (70-110) mg/dL Calcium (8.4-10.2) mg/dL Assessment and Plan Assessment: 1. Acute kidney injury secondary to ATN secondary to cardiorenal syndrome. Started on hemodialysis April 17, 2025 due to refractory hyperkalemia and oliguria. Has femoral catheter. Kidney ultrasound from December 2024 showed no evidence of hydronephrosis. Now nonoliguric. Hemodialysis on hold for possible recovery of renal function. Last hemodialysis was 05/19/2025 2. Chronic kidney disease stage IV with baseline creatinine 2.2-2.3. Etiology is diabetic kidney disease. 3. Hyperkalemia secondary to acute kidney injury and acidosis. Improved with dialysis. 4. Acute on chronic systolic CHF with ejection fraction of 40 to 45% with mo derate mitral and tricuspid regurgitation. 5. Diabetes mellitus. 6. Coronary disease status post CABG. 7. Cardiac arrhythmia secondary to hyperkalemia. 8. Acute blood loss anemia status post blood transfusions. Also received IV DDAVP. Plan: Hold hemodialysis today Repeat labs in a.m. Continue to avoid nephrotoxic agents Consider decreasing diuretics tomorrow
--- NOTE | 2025-04-21 18:26 | P.PN ---
Subjective Progress Note Date: 04/21/25 On 04/21/2025, the patient is being seen for a follow-up. The patient is stable on 2 L of oxygen by nasal cannula. Last hemodialysis session was on 04/19/2025 and the patient is currently producing adequate amount of urine output with a negative fluid balance of 2.5 L over the past 24 hours. Renal function remained stable with a BUN of 68 and a creatinine of 2.7. Rest of the electrolytes are all within normal limits and the patient remains on Lasix 60 mg IV every 12 hours. Patient is known to have coronary disease with previous bypass surgery x 4 and echocardiogram showed ejection fraction 40 to 45% and the patient is currently receiving Lasix 60 mg IV every 12 hours. The patient has no signif icant respiratory distress and the patient is resting comfortably in bed. Most recent chest x-ray from 04/20/2025 showed no significant change in the patient continues to have some CHF findings with diffuse interstitial and alveolar opacity without any significant pleural effusions. Postthoracotomy changes seen in the chest x-ray. The patient's creatinine remained stable and the patient is known to have chronic kidney disease. Objective - Vital Signs Vital signs: Vital Signs Temp 98.1 F 04/21/25 12:20 Pulse 70 04/21/25 12:20 Resp 18 04/21/25 12:20 BP 155/75 04/21/25 12:20 Pulse Ox 99 04/21/25 12:20 FiO2 100 04/19/25 13:15 Intake & Output 04/20/25 04/21/25 04/21/25 18:59 06:59 18:59 Intake Total 237 236 Output Total 690 2049 1600 Balance -431 -0273 -9878 Weight 97.5 kg Intake: Oral 237 236 Output: Urine 690 2050 1600 Other: Voiding Method Indwelling Catheter Indwelling Catheter Indwelling Catheter # Voids 1 - Exam GENERAL EXAM: Alert, 74-year-old male, on 2 L nasal cannula, comfortable in no apparent distress. HEAD: Normocephalic. EYES: Normal reaction of pupils, equal size. NOSE: Clear with pink turbinates. THROAT: No erythema or exudates. NECK: No masses, no JVD. CHEST: No chest wall deformity. LUNGS: Equal air entry with crackles in the posterior bases. CVS: S1 and S2 normal with no audible murmur, regular rhythm. ABDOMEN: No hepatosplenomegaly, normal bowel sounds, no guarding or rigidity. SPINE: No scoliosis or deformity SKIN: No rashes CENTRAL NERVOUS SYSTEM: No focal deficits, tone is normal in all 4 extremities. EXTREMITIES: Right femoral hemodialysis catheter in place. There is no peripheral edema. No clubbing, no cyanosis. Peripheral pulses are intact. - Labs CBC & Chem 7: 04/20/25 02:57 04/21/25 10:48 Labs: Abnormal Lab Results - Last 24 Hours (Table) 04/20/25 04/20/25 04/21/25 Range/Units 16:54 19:52 05:50 Chloride (98-107) mmol/L Carbon Dioxide (22-30) mmol/L BUN (9-20) mg/dL Creatinine (0.66-1.25) mg/dL Glucose (74-99) mg/dL POC Glucose (mg/dL) 276 H 287 H 250 H (70-110) mg/dL Calcium (8.4-10.2) mg/dL 04/21/25 04/21/25 Range/Units 10:48 11:19 Chloride 95 L (98-107) mmol/L Carbon Dioxide 34 H (22-30) mmol/L BUN 68 H (9-20) mg/dL Creatinine 2.77 H (0.66-1.25) mg/dL Glucose 222 H (74-99) mg/dL POC Glucose (mg/dL) 263 H (70-110) mg/dL Calcium 8.1 L (8.4-10.2) mg/dL Assessment and Plan Plan: Acute hypoxic respiratory failure, the patient oxygenation is improved and the patient is down from 15 L down to 2 L of O2 nasal cannula. Acute kidney injury secondary to ATN secondary to cardiorenal syndrome on top of chronic kidney disease/stage IV. Received temporary dialysis catheter 04/17/2025. Received hemodialysis 04/17, 04/18 and 04/19/25, and the patient is producing adequate amount of urine output for now. Romeo catheter is in place. Patient remains on diuretics Acute anemia secondary to above with a hemoglobin of 6.4, status post 2 units of packed red blood cells, current hemoglobin 7.7 Hyperkalemia secondary to above, improved Hyponatremia, improved Metabolic acidosis improved Sinus pause with significant bradycardia requiring temporary venous pacer placement 04/17/2025 and removed 04/19/2025 Acute exacerbation of chronic diastolic congestive heart failure. Echocardiogram was done on 04/17/2025 showed a mild impairment LV function with an ejection fraction of 40 to 45% with mild concentric LVH and moderate global LV hypokinesis. No significant valvular abnormalities. Moderate to severe mitral regurgitation Pulmonary hypertension History of chronic kidney disease stage IV Diabetes mellitus with hyperglycemia Diabetic neuropathy Coronary artery disease with previous coronary artery bypass grafting Plan: Oxygenation is stable and the patient is currently on 2 L of oxygen by nasal cannula Hemodialysis currently on hold as the patient is producing adequate amount of urine output. Currently net negative balance Potassium level is stable Nephrology is following Lantus insulin 24 units daily and NovoLog 5 units with meals and insulin scale coverage Continue Lasix 60 mg IV every 12 hours Improved and down to 2 L nasal cannula Titrate down the FiO2 as tolerated
[2025-04-21 19:58] LABS: Glucose,Whole Blood 304 mg/dL (70-110)
[2025-04-22 06:05] LABS: Glucose,Whole Blood 86 mg/dL (70-110)
[2025-04-22 08:56] LABS: Basophils # (A) 0.05 10*3/uL (0.00-0.10); Basophils % (A) 0.6 %; Eosinophils # (A) 0.28 10*3/uL (0.04-0.35); Eosinophils % (A) 3.3 %; HCT 31.5 % (39.6-50.0); Lymphocytes # (A) 0.75 10*3/uL (0.90-5.00); Lymphocytes % (A) 8.9 %; MCH 28.5 pg (27.0-32.0); MCHC 31.7 g/dL (32.0-37.0); MCV 89.7 fL (80.0-97.0); Monocytes # (A) 0.93 10*3/uL (0.20-1.00); Monocytes % (A) 11.1 %; Neutrophils # (A) 6.33 10*3/uL (1.80-7.70); Neutrophils % (A) 75.5 %; Platelet Count 132 10*3/uL (140-440); RBC 3.51 10*6/uL (4.40-5.60); RDW 15.0 % (11.5-14.5); WBC 8.39 10*3/uL (4.50-10.00)
[2025-04-22 09:01] LABS: HGB 10.0 g/dL (13.0-17.0)
[2025-04-22 11:11] LABS: Glucose,Whole Blood 111 mg/dL (70-110)
[2025-04-22 11:19] LABS: Glucose,Whole Blood 255 mg/dL (70-110)
--- NOTE | 2025-04-22 16:19 | P.PN ---
Subjective Patient is seen for follow-up for acute kidney injury. Started hemodialysis on 04/17/2025 Urine output documented at 5 L for 24 hours Last hemodialysis on 05/19/2025 No significant complaints today. No labs noted today Objective - Vital Signs Vital signs: Vital Signs Temp 98.1 F 04/22/25 08:00 Pulse 80 04/22/25 14:00 Resp 20 04/22/25 14:00 BP 139/70 04/22/25 12:00 Pulse Ox 98 04/22/25 12:00 FiO2 100 04/19/25 13:15 Intake & Output 04/21/25 04/22/25 04/22/25 18:59 06:59 18:59 Intake Total 354 30 120 Output Total 3300 1750 1400 Balance -2946 -1720 -1280 Weight 90 kg Intake: IV 30 Invasive Line 3 10 Invasive Line 6 10 Invasive Line 7 10 Oral 354 120 Output: Urine 3300 1750 1400 Other: Voiding Method Indwelling Catheter Indwelling Catheter Indwelling Catheter # Bowel Movements 1 - Exam Patient is awake, comfortable, no acute distress Examination of the heart S1 and S2 Examination of the lungs bilateral breath sounds are heard Abdomen soft nontender Examination lower extremity shows 1+ edema. [employer] exam grossly intact - Labs CBC & Chem 7: 04/22/25 08:15 04/21/25 10:48 Labs: Abnormal Lab Results - Last 24 Hours (Table) 04/17/25 04/21/25 04/22/25 Range/Units 23:20 19:57 08:15 RBC 3.51 L (4.40-5.60) 10*6/uL Hgb 10.0 L D (13.0-17.0) g/dL Hct 31.5 L (39.6-50.0) % MCHC 31.7 L (32.0-37.0) g/dL Plt Count 132 L (140-440) 10*3/uL Immature Gran # 0.05 H (0.00-0.04) 10*3/uL Lymphocytes # 0.75 L (0.90-5.00) 10*3/uL POC Glucose (mg/dL) 111 H 304 H (70-110) mg/dL 04/22/25 Range/Units 11:18 RBC (4.40-5.60) 10*6/uL Hgb (13.0-17.0) g/dL Hct (39.6-50.0) % MCHC (32.0-37.0) g/dL Plt Count (140-440) 10*3/uL Immature Gran # (0.00-0.04) 10*3/uL Lymphocytes # (0.90-5.00) 10*3/uL POC Glucose (mg/dL) 255 H (70-110) mg/dL Assessment and Plan Assessment: 1. Acute kidney injury secondary to ATN secondary to cardiorenal syndrome. Started on hemodialysis April 17, 2025 due to refractory hyperkalemia and oliguria. Has femoral catheter. Kidney ultrasound from December 2024 showed no evidence of hydronephrosis. Now nonoliguric. Hemodialysis on hold for possible recovery of renal function. Last hemodialysis was 05/19/2025 2. Chronic kidney disease stage IV with baseline creatinine 2.2-2.3. Etiology is diabetic kidney disease. 3. Hyperkalemia secondary to acute kidney injury and acidosis. Improved with dialysis. 4. Acute on chronic systolic CHF with ejection fraction of 40 to 45% with moderate mitral and tricuspid regurgitation. 5. Diabetes mellitus. 6. Coronary disease status post CABG. 7. Cardiac arrhythmia secondary to hyperkalemia. 8. Acute blood loss anemia status post blood transfusions. Also received IV DDAVP. 9. Volume overload, improving Plan: Continue to hold hemodialysis Check labs today and in a.m. Continue to avoid nephrotoxic agents Consider decreasing diuretics based on labs today
[2025-04-22 16:43] LABS: Glucose,Whole Blood 279 mg/dL (70-110)
[2025-04-22 17:48] LABS: African American GFR (CKD) 27 (>60 ml/min/1.73 sqM); Anion Gap 12 mmol/L; Blood Urea Nitrogen 78 mg/dL (9-20); Calcium 8.2 mg/dL (8.4-10.2); Carbon Dioxide 30 mmol/L (22-30); Chloride 94 mmol/L (98-107); Glucose 231 mg/dL (74-99); Non-African American GFR(CKD) 23 (>60 ml/min/1.73 sqM); Potassium 4.0 mmol/L (3.5-5.1); Sodium 136 mmol/L (137-145)
[2025-04-22 20:04] LABS: Glucose,Whole Blood 313 mg/dL (70-110)
--- NOTE | 2025-04-22 21:55 | P.PN ---
Subjective Progress Note Date: 04/22/25 On 04/21/2025, the patient is being seen for a follow-up. The patient is stable on 2 L of oxygen by nasal cannula. Last hemodialysis session was on 04/19/2025 and the patient is currently producing adequate amount of urine output with a negative fluid balance of 2.5 L over the past 24 hours. Renal function remained stable with a BUN of 68 and a creatinine of 2.7. Rest of the electrolytes are all within normal limits and the patient remains on Lasix 60 mg IV every 12 hours. Patient is known to have coronary disease with previous bypass surgery x 4 and echocardiogram showed ejection fraction 40 to 45% and the patient is currently receiving Lasix 60 mg IV every 12 hours. The patient has no signif icant respiratory distress and the patient is resting comfortably in bed. Most recent chest x-ray from 04/20/2025 showed no significant change in the patient continues to have some CHF findings with diffuse interstitial and alveolar opacity without any significant pleural effusions. Postthoracotomy changes seen in the chest x-ray. The patient's creatinine remained stable and the patient is known to have chronic kidney disease. On 04/22/2025, the patient is being seen for a follow-up. Doing well, resting comfortably in bed. The patient is currently off oxygen the patient is currently on room air oxygen with a pulse ox of 99%. Continues to produce excellent urine output and the patient has negative fluid balance of at least 4.6 L over the past 24 hours. Remains on Lasix 60 mg IV every 12 hours. Rest of the medications remain unchanged. Due to soft blood work, creatinine remains stable at 2.6 with a BUN of 78. Rest of the electrolytes are all normal. Sodium is at 136, serum bicarb is at 30. WBC count is at 8.3 with a hemoglobin of 10 and a platelet count of 132. Objective - Vital Signs Vital signs: Vital Signs Temp 98.1 F 04/22/25 08:00 Pulse 83 04/22/25 08:00 Resp 20 04/22/25 08:00 BP 158/73 04/22/25 08:00 Pulse Ox 93 L 04/22/25 08:00 FiO2 100 04/19/25 13:15 Intake & Output 04/21/25 04/22/25 04/22/25 18:59 06:59 18:59 Intake Total 354 30 Output Total 3300 1750 600 Balance -2946 -1720 -600 Weight 90 kg Intake: IV 30 Invasive Line 3 10 Invasive Line 6 10 Invasive Line 7 10 Oral 354 Output: Urine 3300 1750 600 Other: Voiding Method Indwelling Catheter Indwelling Catheter Indwelling Catheter # Bowel Movements 1 - Exam GENERAL EXAM: Alert, 74-year-old male, on room air oxygen, calm and comfortable HEAD: Normocephalic. EYES: Normal reaction of pupils, equal size. NOSE: Clear with pink turbinates. THROAT: No erythema or exudates. NECK: No masses, no JVD. CHEST: No chest wall deformity. LUNGS: Equal air entry with crackles in the posterior bases. CVS: S1 and S2 normal with no audible murmur, regular rhythm. ABDOMEN: No hepatosplenomegaly, normal bowel sounds, no guarding or rigidity. SPINE: No scoliosis or deformity SKIN: No rashes CENTRAL NERVOUS SYSTEM: No focal deficits, tone is normal in all 4 extremities. EXTREMITIES: Right femoral hemodialysis catheter in place. There is no peripheral edema. No clubbing, no cyanosis. Peripheral pulses are intact. - Labs CBC & Chem 7: 04/22/25 08:15 04/22/25 16:49 Labs: Abnormal Lab Results - Last 24 Hours (Table) 04/17/25 04/21/25 04/21/25 Range/Units 23:20 16:08 19:57 RBC (4.40-5.60) 10*6/uL Hgb (13.0-17.0) g/dL Hct (39.6-50.0) % MCHC (32.0-37.0) g/dL Plt Count (140-440) 10*3/uL Immature Gran # (0.00-0.04) 10*3/uL Lymphocytes # (0.90-5.00) 10*3/uL POC Glucose (mg/dL) 111 H 353 H 304 H (70-110) mg/dL 04/22/25 04/22/25 Range/Units 08:15 11:18 RBC 3.51 L (4.40-5.60) 10*6/uL Hgb 10.0 L D (13.0-17.0) g/dL Hct 31.5 L (39.6-50.0) % MCHC 31.7 L (32.0-37.0) g/dL Plt Count 132 L (140-440) 10*3/uL Immature Gran # 0.05 H (0.00-0.04) 10*3/uL Lymphocytes # 0.75 L (0.90-5.00) 10*3/uL POC Glucose (mg/dL) 255 H (70-110) mg/dL Assessment and Plan Plan: Acute hypoxic respiratory failure, the patient oxygenation is improved and the patient is down from 15 L to room air oxygen. Acute kidney injury secondary to ATN secondary to cardiorenal syndrome on top of chronic kidney disease/stage IV. Received temporary dialysis catheter 04/17/2025. Received hemodialysis 04/17, 04/18 and 04/19/25, and the patient is producing adequate amount of urine output for now. Romeo catheter is in place. Patient remains on diuretics, and the patient continues to improve and the patient continues to be a negative fluid balance. Nephrology on the case. Acute anemia secondary to above with a hemoglobin is stable Hyperkalemia secondary to above, improved Hyponatremia, improved Metabolic acidosis improved Sinus pause with significant bradycardia requiring temporary venous pacer placement 04/17/2025 and removed 04/19/2025 Acute exacerbation of chronic diastolic congestive heart failure. Echocardiogram was done on 04/17/2025 showed a mild impairment LV function with an ejection fraction of 40 to 45% with mild concentric LVH and moderate global LV hypokinesis. No significant valvular abnormalities. Moderate to severe mitral regurgitation Pulmonary hypertension History of chronic kidney disease stage IV Diabetes mellitus with hyperglycemia Diabetic neuropathy Coronary artery disease with previous coronary artery bypass grafting Plan: Oxygenation is stable and the patient is currently on room air oxygen Hemodialysis currently on hold as the patient is producing adequate amount of urine output. Currently in a negative fluid balance Potassium level is stable Nephrology is following Lantus insulin 24 units daily and NovoLog 5 units with meals and insulin scale coverage Continue Lasix 60 mg IV every 12 hours Monitor electrolytes and renal function Continue Lantus insulin 24 units daily and NovoLog 5 units with meals Continue levothyroxine 150 mcg p.o. daily Continue Norvasc 10 mg p.o. daily Continue aspirin 81 mg p.o. daily Continue Lipitor 20 mg p.o. daily
[2025-04-23 05:35] LABS: Glucose,Whole Blood 103 mg/dL (70-110)
--- NOTE | 2025-04-23 05:35 | P.PN ---
Subjective 74-year-old male patient with history of coronary artery disease with previous stent placement, subsequent coronary bypass grafting, peripheral arterial disease, diabetes mellitus, diabetic neuropathy, gastroesophageal reflux disease, hypertension, hyperlipidemia, hypothyroidism, former smoker who [facility] with complaints of persistent nausea and shortness of breath. Chest x-ray reveals cardiomegaly and pulmonary vascular congestion. EKG revealed significant sinus pauses and bradycardia. White count 12.4. Hemoglobin 7.7. Platelets 270. Sodium 128. Potassium 7.7. Bicarb 17. BUN 83. Creatinine 3.68. Glucose 483. Acetone negative. proBNP 11,400. Troponin opponent negative x 1. He was taken to the [facility] for temporary venous pacemaker placement. He is seen in consultation in the intensive care unit. He is receiving a hemodialysis catheter. He is maintaining O2 saturations in the 90s on 2 L/min per nasal cannula. He is currently afebrile. Mean arterial pressure 68. Heart rate 60. He is on normal saline at 50 mL/h. Receiving Lasix 40 mg IV every 12 hours. On an insulin drip at 10.7 units/h. 04/20/2025 Patient is seen and evaluated in follow-up in the intensive care unit. He is currently sitting up in bed. Awake and alert in no acute distress. Maintaining good O2 saturations in the 90s on 3 L/min per nasal cannula. No IV fluids. - His temporary venous pacemaker was discontinued. Patient remains on Lantus and Humalog sliding scale; with Accu-Cheks before every meal and at bedtime with insulin sliding. Blood work is reviewed white count 7.7. Hemoglobin 7.7. Platelets 101. Sodium 133. Potassium 3.7. Bicarb 31. BUN 51. Creatinine 2.60. Glucose 200. - Chest x-ray reveals mild fluid volume overload; patient received Lasix 80 mg IV push x 1 yesterday --Hemodialysis, third session done yesterday - We will continue to monitor electrolytes - O2 saturation markedly improved currently on 3 L per nasal cannula 04/21 This is a pleasant 74 years old male who presents with acute CHF exacerbation, EF is 40 to 45% Also patient was found to have severe anemia status post 2 units of blood transfusion and thrombocytopenia which is mild but acute kidney injury was worsening and he was started on hemodialysis on 04/17. Patient is a known case of stage IV chronic kidney disease. Continue with IV Lasix per nephrology currently on 60 mg twice daily continue and electrolytes. Nephrology team consult Vital stable Creatinine 2.6 yesterday. Which is improving Check labs tomorrow 04/22 Patient still tachypneic and coughing but not bothering the patient much Romeo catheter in place Going to [facility] for rehab Eat meals well no other new signs symptoms He has 1 loose bowel movement yesterday but no abdominal pain. Discussed case with nephrology team would like to monitor 1 more day. Currently hemodialysis is on hold Remains on IV Lasix from 60 mg twice daily which, to be switched to the same dose upon discharge compared to 40 mg twice daily prior to hospitalization Objective - Vital Signs Vital signs: Vital Signs Temp 98.1 F 04/22/25 08:00 Pulse 80 04/22/25 12:00 Resp 20 04/22/25 08:00 BP 139/70 04/22/25 12:00 Pulse Ox 98 04/22/25 12:00 FiO2 100 04/19/25 13:15 Intake & Output 04/21/25 04/22/25 04/22/25 18:59 06:59 18:59 Intake Total 354 30 120 Output Total 3300 1750 600 Balance -0556 -1720 -480 Weight 90 kg Intake: IV 30 Invasive Line 3 10 Invasive Line 6 10 Invasive Line 7 10 Oral 354 120 Output: Urine 3300 1750 600 Other: Voiding Method Indwelling Catheter Indwelling Catheter Indwelling Catheter # Bowel Movements 1 - Exam GENERAL: The patient is alert and oriented x3, not in any acute distress. Well developed, well nourished. HEENT: Pupils are round and equally reacting to light. EOMI. No scleral icterus. No conjunctival pallor. Normocephalic, atraumatic. No pharyngeal erythema. No thyromegaly. CARDIOVASCULAR: S1 and S2 present. No murmurs, rubs, or gallops. PULMONARY: Chest is clear to auscultation, no wheezing , no crackles. ABDOMEN: Soft, nontender, nondistended, normoactive bowel sounds. No palpable organomegaly. MUSCULOSKELETAL: No joint swelling or deformity. EXTREMITIES: No cyanosis, clubbing, or pedal edema. NEUROLOGICAL: Gross neurological examination did not reveal any focal deficits. SKIN: No rashes. no petechiae. - Labs CBC & Chem 7: 04/22/25 08:15 04/22/25 16:49 Labs: Abnormal Lab Results - Last 24 Hours (Table) 04/17/25 04/21/25 04/21/25 Range/Units 23:20 16:08 19:57 RBC (4.40-5.60) 10*6/uL Hgb (13.0-17.0) g/dL Hct (39.6-50.0) % MCHC (32.0-37.0) g/dL Plt Count (140-440) 10*3/uL Immature Gran # (0.00-0.04) 10*3/uL Lymphocytes # (0.90-5.00) 10*3/uL POC Glucose (mg/dL) 111 H 353 H 304 H (70-110) mg/dL 04/22/25 04/22/25 Range/Units 08:15 11:18 RBC 3.51 L (4.40-5.60) 10*6/uL Hgb 10.0 L D (13.0-17.0) g/dL Hct 31.5 L (39.6-50.0) % MCHC 31.7 L (32.0-37.0) g/dL Plt Count 132 L (140-440) 10*3/uL Immature Gran # 0.05 H (0.00-0.04) 10*3/uL Lymphocytes # 0.75 L (0.90-5.00) 10*3/uL POC Glucose (mg/dL) 255 H (70-110) mg/dL Assessment and Plan Assessment: Acute kidney injury secondary to ATN secondary to cardiorenal syndrome. Received temporary dialysis catheter 04/17/2025. Received hemodialysis 04/17, 04/18 and 04/20 Acute anemia secondary to above with a hemoglobin of 6.4, status post 2 units of packed red blood cells, improved Hyperkalemia secondary to above, improved Hyponatremia, improved Metabolic acidosis improved Sinus pause with significant bradycardia requiring temporary venous pacer placement 04/17/2025 Acute exacerbation of chronic diastolic congestive heart failure Acute hypoxic respiratory failure secondary to above, currently on 10 L high flow nasal cannula Moderate to severe mitral regurgitation History of chronic kidney disease stage IV Diabetes mellitus with hyperglycemia//Diabetic neuropathy Coronary artery disease with previous coronary artery bypass grafting Plan: Continue with IV Lasix per nephrology team Monitor creatinine and electrolytes Nephrology team consult Cardiology and pulmonary team consult. Cardiology team sign off the case Labs and medication were reviewed.. Continue same treatment. Continue with symptomatic treatment. Resume home medication. Monitor labs and vitals. DVT and GI prophylaxis. Further recommendations as per clinical course of the patient DVT prophylaxis: no Subcutaneous heparin for severe anemia GI Prophylaxis: Pepcid and Protonix PT/OT: Pending Prognosis is guarded
[2025-04-23 09:14] LABS: Basophils # (A) 0.05 10*3/uL (0.00-0.10); Basophils % (A) 0.6 %; Eosinophils # (A) 0.23 10*3/uL (0.04-0.35); Eosinophils % (A) 2.7 %; HCT 33.8 % (39.6-50.0); HGB 10.4 g/dL (13.0-17.0); Lymphocytes # (A) 0.87 10*3/uL (0.90-5.00); Lymphocytes % (A) 10.3 %; MCH 27.8 pg (27.0-32.0); MCHC 30.8 g/dL (32.0-37.0); MCV 90.4 fL (80.0-97.0); Monocytes # (A) 1.07 10*3/uL (0.20-1.00); Monocytes % (A) 12.7 %; Neutrophils # (A) 6.16 10*3/uL (1.80-7.70); Neutrophils % (A) 72.9 %; Platelet Count 152 10*3/uL (140-440); RBC 3.74 10*6/uL (4.40-5.60); RDW 15.3 % (11.5-14.5); WBC 8.45 10*3/uL (4.50-10.00)
[2025-04-23 09:20] LABS: African American GFR (CKD) 24 (>60 ml/min/1.73 sqM); Anion Gap 8 mmol/L; Blood Urea Nitrogen 71 mg/dL (9-20); Calcium 8.2 mg/dL (8.4-10.2); Carbon Dioxide 35 mmol/L (22-30); Chloride 93 mmol/L (98-107); Glucose 166 mg/dL (74-99); Non-African American GFR(CKD) 21 (>60 ml/min/1.73 sqM); Potassium 3.8 mmol/L (3.5-5.1); Sodium 136 mmol/L (137-145)
--- NOTE | 2025-04-23 09:36 | US ---
EXAMINATION TYPE: US venous doppler duplex UE LT DATE OF EXAM: 04/23/2025 COMPARISON: CLINICAL INDICATION: Male, 74 years old with history of swelling; Swelling within Lt arm, no pain, no hx of DVT, pt unsure if he's currently on thinners TECHNIQUE: Grayscale, color Doppler and spectral Doppler imaging of the upper extremity. SIDE PERFORMED: Left VESSELS IMAGED: IJV Subclavian Vein Axilla Vein Brachial Vein(s) Radial Paired Veins Ulnar Paired Veins Cephalic Vein* Basilic Vein* (*superficial vessels) FINDINGS: Left Arm: There appears to be internal echoes with no compressibility within the Lt Basilic vein, appears posit michele for DVT Grayscale, color doppler, spectral doppler imaging performed of the deep veins of the upper extremiti es. IMPRESSION: 1. Exam positive for left basilic vein SVT. 2. No evidence for DVT within the left upper extremity. [facility], , 04/23/2025 9:34 AM
[2025-04-23 11:16] LABS: Glucose,Whole Blood 279 mg/dL (70-110)
--- NOTE | 2025-04-23 12:39 | P.PN ---
Subjective Patient is seen for follow-up for acute kidney injury. Started hemodialysis on 04/17/2025. Renal function has improved and hemodialysis is on hold. Urine output documented at 2.8 L for 24 hours Last hemodialysis on 05/19/2025 No significant complaints today. serum creatinine at 2.8 today. Maintained on IV Lasix Objective - Vital Signs Vital signs: Vital Signs Temp 97.6 F 04/23/25 08:00 Pulse 77 04/23/25 08:00 Resp 18 04/23/25 08:00 BP 149/78 04/23/25 08:00 Pulse Ox 97 04/23/25 08:00 FiO2 100 04/19/25 13:15 Intake & Output 04/22/25 04/23/25 04/23/25 18:59 06:59 18:59 Intake Total 120 10 240 Output Total 1999 850 750 Balance -1880 -840 -510 Weight 90 kg Intake: IV 10 Invasive Line 7 10 Oral 120 240 Output: Urine 1999 850 750 Other: Voiding Method Indwelling Catheter Indwelling Catheter Indwelling Catheter # Bowel Movements 1 - Exam Patient is awake, comfortable, no acute distress Examination of the heart S1 and S2 Examination of the lungs bilateral breath sounds are heard Abdomen soft nontender Examination lower extremity shows 1+ edema. MANAGER COST exam grossly intact - Labs CBC & Chem 7: 04/23/25 08:48 04/23/25 08:48 Labs: Abnormal Lab Results - Last 24 Hours (Table) 04/22/25 04/22/25 04/22/25 Range/Units 16:42 16:49 20:03 RBC (4.40-5.60) 10*6/uL Hgb (13.0-17.0) g/dL Hct (39.6-50.0) % MCHC (32.0-37.0) g/dL Immature Gran # (0.00-0.04) 10*3/uL Lymphocytes # (0.90-5.00) 10*3/uL Monocytes # (0.20-1.00) 10*3/uL Sodium 136 L (137-145) mmol/L Chloride 94 L (98-107) mmol/L Carbon Dioxide (22-30) mmol/L BUN 78 H (9-20) mg/dL Creatinine 2.63 H (0.66-1.25) mg/dL Glucose 231 H (74-99) mg/dL POC Glucose (mg/dL) 279 H 313 H (70-110) mg/dL Calcium 8.2 L (8.4-10.2) mg/dL 04/23/25 04/23/25 04/23/25 Range/Units 08:48 08:48 11:15 RBC 3.74 L (4.40-5.60) 10*6/uL Hgb 10.4 L (13.0-17.0) g/dL Hct 33.8 L (39.6-50.0) % MCHC 30.8 L (32.0-37.0) g/dL Immature Gran # 0.07 H (0.00-0.04) 10*3/uL Lymphocytes # 0.87 L (0.90-5.00) 10*3/uL Monocytes # 1.07 H (0.20-1.00) 10*3/uL Sodium 136 L (137-145) mmol/L Chloride 93 L (98-107) mmol/L Carbon Dioxide 35 H (22-30) mmol/L BUN 71 H (9-20) mg/dL Creatinine 2.88 H (0.66-1.25) mg/dL Glucose 166 H (74-99) mg/dL POC Glucose (mg/dL) 279 H (70-110) mg/dL Calcium 8.2 L (8.4-10.2) mg/dL Assessment and Plan Assessment: 1. Acute kidney injury secondary to ATN secondary to cardiorenal syndrome. Started on hemodialysis April 17, 2025 due to refractory hyperkalemia and ol iguria. Has femoral catheter. Kidney ultrasound from December 2024 showed no evidence of hydronephrosis. Now nonoliguric. Hemodialysis on hold for possible recovery of renal function with increased urine output. Last hemodialysis was 05/19/2025 2. Chronic kidney disease stage IV with baseline creatinine 2.2-2.3. Etiology is diabetic kidney disease. 3. Hyperkalemia secondary to acute kidney injury and acidosis. Improved with dialysis. 4. Acute on chronic systolic CHF with ejection fraction of 40 to 45% with moderate mitral and tricuspid regurgitation. 5. Diabetes mellitus. 6. Coronary disease status post CABG. 7. Cardiac arrhythmia secondary to hyperkalemia. 8. Acute blood loss anemia status post blood transfusions. Also received IV DDAVP. 9. Volume overload, improving Plan: Continue to hold hemodialysis Decrease Lasix May remove dialysis catheter repeat labs in a.m. Continue to avoid nephrotoxic agents
[2025-04-23 16:20] LABS: Glucose,Whole Blood 363 mg/dL (70-110)
--- NOTE | 2025-04-23 17:03 | CDI ---
Documentation Clarification Form Date: 04/23/2025 04:44:06 PM From: Kenna Chavez RN CCDS Phone: [phone] Admit Date: 04/17/2025 12:20:00 PM Patient Name: Colton Ross Visit Number: [id number] Discharge Date: ATTENTION: The Clinical Documentation Specialists (CDI) and [facility] Coding Staff appreciate your assistance in clarifying documentation. Please respond to the clarification below the line at the bottom and electronically sign. The CDI & [facility] Coding staff will review the response and follow-up if needed. Please note: Queries are made part of the Legal Health Record. If you have any questions, please contact the author of this message via ITS. Doctor: Filiberto E Sheet Conflicting documentation has been found in the medical record. As attending physician, please provide clarification. Acute on Chronic Diastolic Heart Failure, 04/20 Cardiology note Acute on Chronic Systolic Heart Failure, 04/18 Nephrology note History/Risk Factors: 74 year old male presented to the ED from [facility] for abnormal labs of Potassium 6.1 and Hemoglobin of 6.6, the patient was feeling shaky. A Medical history: CKD with baseline 2.2, HTN, DM, CABG stent, CAD and PAD. Clinical Indicators: ECHO 04/17: EF 40-45% Moderate global hypokinesis of the left ventricle. Moderate tricuspid regurgitation. Mild to Moderate mitral regurgitation. CXR, 04/16: Cardiomegaly and pulmonary vascular congestive changes. BNP, 04/16: [id number] Nephrology Note 04/18: Acute on chronic systolic CHF with ejection fraction of 40 to 45% with Moderate mitral and tricuspid regurgitation. Cardiology Note 04/20 Acute on chronic HFpEF, currently mild volume overload Treatment: 04/16 Lasix IV 40mg x 1; 04/17 Lasix IV 40mg BID, 04/18 04/20 Lasix 80mg IV x 1, 04/20 04/23 Lasix 60mg IV Q12H, 04/23 Lasix 40mg PO BID. 04/17 04/20 Lopressor 50mg PO BID, Please clarify which diagnosis is most appropriate: [ ] Acute on Chronic Diastolic Heart Failure [ x ] Acute on Chronic Systolic Heart Failure [ ] Acute on Chronic Combined Diastolic Systolic Heart Failure [ ] Other (please specify) [ ] Unable to determine (Template Last Revised: December 2020) MTDD
[2025-04-23] MEDS: FUROSEMIDE 40 MG TAB PO SCH (17:22)
[2025-04-23 19:38] LABS: Glucose,Whole Blood 290 mg/dL (70-110)
--- NOTE | 2025-04-23 20:44 | P.PN ---
Subjective Progress Note Date: 04/23/25 On 04/21/2025, the patient is being seen for a follow-up. The patient is stable on 2 L of oxygen by nasal cannula. Last hemodialysis session was on 04/19/2025 and the patient is currently producing adequate amount of urine output with a negative fluid balance of 2.5 L over the past 24 hours. Renal function remained stable with a BUN of 68 and a creatinine of 2.7. Rest of the electrolytes are all within normal limits and the patient remains on Lasix 60 mg IV every 12 hours. Patient is known to have coronary disease with previous bypass surgery x 4 and echocardiogram showed ejection fraction 40 to 45% and the patient is currently receiving Lasix 60 mg IV every 12 hours. The patient has no signif icant respiratory distress and the patient is resting comfortably in bed. Most recent chest x-ray from 04/20/2025 showed no significant change in the patient continues to have some CHF findings with diffuse interstitial and alveolar opacity without any significant pleural effusions. Postthoracotomy changes seen in the chest x-ray. The patient's creatinine remained stable and the patient is known to have chronic kidney disease. On 04/22/2025, the patient is being seen for a follow-up. Doing well, resting comfortably in bed. The patient is currently off oxygen the patient is currently on room air oxygen with a pulse ox of 99%. Continues to produce excellent urine output and the patient has negative fluid balance of at least 4.6 L over the past 24 hours. Remains on Lasix 60 mg IV every 12 hours. Rest of the medications remain unchanged. Due to soft blood work, creatinine remains stable at 2.6 with a BUN of 78. Rest of the electrolytes are all normal. Sodium is at 136, serum bicarb is at 30. WBC count is at 8.3 with a hemoglobin of 10 and a platelet count of 132. On 04/23/2025, the patient is being seen for a follow-up. The patient resting comfortably in bed. The patient remains on room air oxygen with a pulse ox of 98%. Continues to make excellent urine output with a negative fluid balance of 2.7 L in the patient remains on Lasix and the patient has been switched to 40 mg of oral Lasix twice daily. Limited edema lower extremities bilaterally. No chest pain. No pleurisy. No hemoptysis. Doppler of the upper extremity showed a positive left basilic vein superficial vein thrombosis. No evidence of any DVT involving the left upper extremity. The patient remains on aspirin 81 mg p.o. daily. Rest of the medication unchanged. Remains on Lantus 24 units daily and NovoLog 5 units with meals and sliding scale coverage. Patient is also on Trulicity once a week. Amlodipine for blood pressure control 10 mg p.o. daily. The white cell count is 8.4 with a hemoglobin of 10.4 and the platelet count of 152. BUN is 71 and a creatinine is 2.88 and a potassium level of 3.8 and the chloride is at 93 with a bicarb level of 35. Objective - Vital Signs Vital signs: Vital Signs Temp 97.6 F 04/23/25 08:00 Pulse 77 04/23/25 08:00 Resp 18 04/23/25 08:00 BP 149/78 04/23/25 08:00 Pulse Ox 97 04/23/25 08:00 FiO2 100 04/19/25 13:15 Intake & Output 04/22/25 04/23/25 04/23/25 18:59 06:59 18:59 Intake Total 120 10 462 Output Total 1999 850 750 Balance -1880 -840 -288 Weight 90 kg Intake: IV 10 Invasive Line 7 10 Oral 120 462 Output: Urine 1999 850 750 Other: Voiding Method Indwelling Catheter Indwelling Catheter Indwelling Catheter # Bowel Movements 1 - Exam GENERAL EXAM: Alert, 74-year-old male, on room air oxygen, calm and comfortable HEAD: Normocephalic. EYES: Normal reaction of pupils, equal size. NOSE: Clear with pink turbinates. THROAT: No erythema or exudates. NECK: No masses, no JVD. CHEST: No chest wall deformity. LUNGS: Equal air entry with crackles in the posterior bases. CVS: S1 and S2 normal with no audible murmur, regular rhythm. ABDOMEN: No hepatosplenomegaly, normal bowel sounds, no guarding or rigidity. SPINE: No scoliosis or deformity SKIN: No rashes CENTRAL NERVOUS SYSTEM: No focal deficits, tone is normal in all 4 extremities. EXTREMITIES: Right femoral hemodialysis catheter in place. There is no peripheral edema. No clubbing, no cyanosis. Peripheral pulses are intact. - Labs CBC & Chem 7: 04/23/25 08:48 04/23/25 08:48 Labs: Abnormal Lab Results - Last 24 Hours (Table) 04/22/25 04/22/25 04/22/25 Range/Units 16:42 16:49 20:03 RBC (4.40-5.60) 10*6/uL Hgb (13.0-17.0) g/dL Hct (39.6-50.0) % MCHC (32.0-37.0) g/dL Immature Gran # (0.00-0.04) 10*3/uL Lymphocytes # (0.90-5.00) 10*3/uL Monocytes # (0.20-1.00) 10*3/uL Sodium 136 L (137-145) mmol/L Chloride 94 L (98-107) mmol/L Carbon Dioxide (22-30) mmol/L BUN 78 H (9-20) mg/dL Creatinine 2.63 H (0.66-1.25) mg/dL Glucose 231 H (74-99) mg/dL POC Glucose (mg/dL) 279 H 313 H (70-110) mg/dL Calcium 8.2 L (8.4-10.2) mg/dL 04/23/25 04/23/25 04/23/25 Range/Units 08:48 08:48 11:15 RBC 3.74 L (4.40-5.60) 10*6/uL Hgb 10.4 L (13.0-17.0) g/dL Hct 33.8 L (39.6-50.0) % MCHC 30.8 L (32.0-37.0) g/dL Immature Gran # 0.07 H (0.00-0.04) 10*3/uL Lymphocytes # 0.87 L (0.90-5.00) 10*3/uL Monocytes # 1.07 H (0.20-1.00) 10*3/uL Sodium 136 L (137-145) mmol/L Chloride 93 L (98-107) mmol/L Carbon Dioxide 35 H (22-30) mmol/L BUN 71 H (9-20) mg/dL Creatinine 2.88 H (0.66-1.25) mg/dL Glucose 166 H (74-99) mg/dL POC Glucose (mg/dL) 279 H (70-110) mg/dL Calcium 8.2 L (8.4-10.2) mg/dL Assessment and Plan Plan: Acute hypoxic respiratory failure, the patient oxygenation is improved and the patient is down from 15 L to room air oxygen. No significant respiratory distress and the patient is laying down comfortably in bed Acute kidney injury secondary to ATN secondary to cardiorenal syndrome on top of chronic kidney disease/stage IV. Received temporary dialysis catheter 04/17/2025. Received hemodialysis 04/17, 04/18 and 04/19/25, and the patient is pr oducing adequate amount of urine output for now. Romeo catheter is in place. Patient remains on diuretics, and the patient continues to improve and the patient continues to be a negative fluid balance. Nephrology on the case. The patient is currently on oral Lasix 40 mg p.o. twice a day. Acute anemia secondary to above with a hemoglobin is stable Hyperkalemia secondary to above, improved Hyponatremia, improved Metabolic acidosis improved Sinus pause with significant bradycardia requiring temporary venous pacer placement 04/17/2025 and removed 04/19/2025 Acute exacerbation of chronic diastolic congestive heart failure. Echocardiogram was done on 04/17/2025 showed a mild impairment LV function with an ejection fraction of 40 to 45% with mild concentric LVH and moderate global LV hypok inesis. No significant valvular abnormalities. Moderate to severe mitral regurgitation Pulmonary hypertension History of chronic kidney disease stage IV Diabetes mellitus with hyperglycemia Diabetic neuropathy Coronary artery disease with previous coronary artery bypass grafting Plan: Oxygenation is stable and the patient is currently on room air oxygen Hemodialysis currently on hold as the patient is producing adequate amount of urine output. Currently in a negative fluid balance Potassium level is stable Nephrology is following Lantus insulin 24 units daily and NovoLog 5 units with meals and insulin scale coverage Continue Lasix 40 mg p.o. twice a day Monitor electrolytes and renal function Continue Lantus insulin 24 units daily and NovoLog 5 units with meals Continue levothyroxine 150 mcg p.o. daily Continue Norvasc 10 mg p.o. daily Continue aspirin 81 mg p.o. daily Continue Lipitor 20 mg p.o. daily
--- NOTE | 2025-04-24 00:37 | P.PN ---
Subjective 74-year-old male patient with history of coronary artery disease with previous stent placement, subsequent coronary bypass grafting, peripheral arterial disease, diabetes mellitus, diabetic neuropathy, gastroesophageal reflux disease, hypertension, hyperlipidemia, hypothyroidism, former smoker who was brought in from the local [facility] with complaints of persistent nausea and shortness of breath. Chest x-ray reveals cardiomegaly and pulmonary vascular congestion. EKG revealed significant sinus pauses and bradycardia. White count 12.4. Hemoglobin 7.7. Platelets 270. Sodium 128. Potassium 7.7. Bicarb 17. BUN 83. Creatinine 3.68. Glucose 483. Acetone negative. proBNP 11,400. Troponin opponent negative x 1. He was taken to the [facility] for temporary venous pacemaker placement. He is seen in consultation in the intensive care unit. He is receiving a hemodialysis catheter. He is maintaining O2 saturations in the 90s on 2 L/min per nasal cannula. He is currently afebrile. Mean arterial pressure 68. Heart rate 60. He is on normal saline at 50 mL/h. Receiving Lasix 40 mg IV every 12 hours. On an insulin drip at 10.7 units/h. 04/20/2025 Patient is seen and evaluated in follow-up in the intensive care unit. He is currently sitting up in bed. Awake and alert in no acute distress. Maintaining good O2 saturations in the 90s on 3 L/min per nasal cannula. No IV fluids. - His temporary venous pacemaker was discontinued. Patient remains on Lantus and Humalog sliding scale; with Accu-Cheks before every meal and at bedtime with insulin sliding. Blood work is reviewed white count 7.7. Hemoglobin 7.7. Platelets 101. Sodium 133. Potassium 3.7. Bicarb 31. BUN 51. Creatinine 2.60. Glucose 200. - Chest x-ray reveals mild fluid volume overload; patient received Lasix 80 mg IV push x 1 yesterday --Hemodialysis, third session done yesterday - We will continue to monitor electrolytes - O2 saturation markedly improved currently on 3 L per nasal cannula 04/21 This is a pleasant 74 years old male who presents with acute CHF exacerbation, EF is 40 to 45% Also patient was found to have severe anemia status post 2 units of blood transfusion and thrombocytopenia which is mild but acute kidney injury was worsening and he was started on hemodialysis on 04/17. Patient is a known case of stage IV chronic kidney disease. Continue with IV Lasix per nephrology currently on 60 mg twice daily continue and electrolytes. Nephrology team consult Vital stable Creatinine 2.6 yesterday. Which is improving Check labs tomorrow 04/22 Patient still tachypneic and coughing but not bothering the patient much Romeo catheter in place Going to [facility] for rehab Eat meals well no other new signs symptoms He has 1 loose bowel movement yesterday but no abdominal pain. Discussed case with nephrology team would like to monitor 1 more day. Currently hemodialysis is on hold Remains on IV Lasix from 60 mg twice daily which, to be switched to the same dose upon discharge compared to 40 mg twice daily prior to hospitalization 04/23 Patient has left upper extremity swelling, venous Doppler ordered showing superficial vein thrombosis no significant pain or erythema Still mildly tachypneic Not on a blood thinner at home and on aspirin No other new complaint Today Lasix which and to oral dose Objective - Vital Signs Vital signs: Vital Signs Temp 97.6 F 04/23/25 08:00 Pulse 82 04/23/25 14:00 Resp 18 04/23/25 14:00 BP 137/73 04/23/25 12:00 Pulse Ox 97 04/23/25 12:00 FiO2 100 04/19/25 13:15 Intake & Output 04/22/25 04/23/25 04/23/25 18:59 06:59 18:59 Intake Total 120 10 462 Output Total 1999 850 750 Balance -1880 -840 -288 Weight 90 kg Intake: IV 10 Invasive Line 7 10 Oral 120 462 Output: Urine 1999 850 750 Other: Voiding Method Indwelling Catheter Indwelling Catheter Indwelling Catheter # Bowel Movements 1 - Exam GENERAL: The patient is alert and oriented x3, not in any acute distress. Well developed, well nourished. HEENT: Pupils are round and equally reacting to light. EOMI. No scleral icterus. No conjunctival pallor. Normocephalic, atraumatic. No pharyngeal erythema. No thyromegaly. CARDIOVASCULAR: S1 and S2 present. No murmurs, rubs, or gallops. PULMONARY: Chest is clear to auscultation, no wheezing , no crackles. ABDOMEN: Soft, nontender, nondistended, normoactive bowel sounds. No palpable organomegaly. MUSCULOSKELETAL: No joint swelling or deformity. EXTREMITIES: No cyanosis, clubbing, or pedal edema. NEUROLOGICAL: Gross neurological examination did not reveal any focal deficits. SKIN: No rashes. no petechiae. - Labs CBC & Chem 7: 04/23/25 08:48 04/23/25 08:48 Labs: Abnormal Lab Results - Last 24 Hours (Table) 04/22/25 04/22/25 04/22/25 Range/Units 16:42 16:49 20:03 RBC (4.40-5.60) 10*6/uL Hgb (13.0-17.0) g/dL Hct (39.6-50.0) % MCHC (32.0-37.0) g/dL Immature Gran # (0.00-0.04) 10*3/uL Lymphocytes # (0.90-5.00) 10*3/uL Monocytes # (0.20-1.00) 10*3/uL Sodium 136 L (137-145) mmol/L Chloride 94 L (98-107) mmol/L Carbon Dioxide (22-30) mmol/L BUN 78 H (9-20) mg/dL Creatinine 2.63 H (0.66-1.25) mg/dL Glucose 231 H (74-99) mg/dL POC Glucose (mg/dL) 279 H 313 H (70-110) mg/dL Calcium 8.2 L (8.4-10.2) mg/dL 04/23/25 04/23/25 04/23/25 Range/Units 08:48 08:48 11:15 RBC 3.74 L (4.40-5.60) 10*6/uL Hgb 10.4 L (13.0-17.0) g/dL Hct 33.8 L (39.6-50.0) % MCHC 30.8 L (32.0-37.0) g/dL Immature Gran # 0.07 H (0.00-0.04) 10*3/uL Lymphocytes # 0.87 L (0.90-5.00) 10*3/uL Monocytes # 1.07 H (0.20-1.00) 10*3/uL Sodium 136 L (137-145) mmol/L Chloride 93 L (98-107) mmol/L Carbon Dioxide 35 H (22-30) mmol/L BUN 71 H (9-20) mg/dL Creatinine 2.88 H (0.66-1.25) mg/dL Glucose 166 H (74-99) mg/dL POC Glucose (mg/dL) 279 H (70-110) mg/dL Calcium 8.2 L (8.4-10.2) mg/dL Assessment and Plan Assessment: Acute kidney injury secondary to ATN secondary to cardiorenal syndrome. Received temporary dialysis catheter 04/17/2025. Received hemodialysis 04/17, 04/18 and 04/20 Acute anemia secondary to above with a hemoglobin of 6.4, status post 2 units of packed red blood cells, improved Hyperkalemia secondary to above, improved Hyponatremia, improved Metabolic acidosis improved Sinus pause with significant bradycardia requiring temporary venous pacer pl acement 04/17/2025 Acute exacerbation of chronic diastolic congestive heart failure Acute hypoxic respiratory failure secondary to above, currently on 10 L high flow nasal cannula Moderate to severe mitral regurgitation History of chronic kidney disease stage IV Diabetes mellitus with hyperglycemia//Diabetic neuropathy Coronary artery disease with previous coronary artery bypass grafting Plan: Continue with oral Lasix per nephrology team Monitor creatinine and electrolytes Nephrology team consult Cardiology and pulmonary team consult. Cardiology team sign off the case Labs and medication were reviewed.. Continue same treatment. Continue with symptomatic treatment. Resume home medication. Monitor labs and vitals. DVT and GI prophylaxis. Further recommendations as per clinical course of the patient DVT prophylaxis: no Subcutaneous heparin for severe anemia GI Prophylaxis: Pepcid and Protonix PT/OT: Pending Prognosis is guarded
[2025-04-24 06:44] LABS: Glucose,Whole Blood 215 mg/dL (70-110)
[2025-04-24 11:22] LABS: African American GFR (CKD) 21 (>60 ml/min/1.73 sqM); Anion Gap 7 mmol/L; Blood Urea Nitrogen 82 mg/dL (9-20); Calcium 8.1 mg/dL (8.4-10.2); Carbon Dioxide 33 mmol/L (22-30); Chloride 91 mmol/L (98-107); Glucose 239 mg/dL (74-99); Non-African American GFR(CKD) 18 (>60 ml/min/1.73 sqM); Potassium 3.9 mmol/L (3.5-5.1); Sodium 131 mmol/L (137-145)
[2025-04-24 11:52] LABS: Glucose,Whole Blood 300 mg/dL (70-110)
--- NOTE | 2025-04-24 12:29 | P.PN ---
Subjective Patient is seen for follow-up for acute kidney injury. Started hemodialysis on 04/17/2025. Renal function has improved and hemodialysis is on hold. Urine output documented at 2.4 L for 24 hours Last hemodialysis on 05/19/2025 No significant complaints today. serum creatinine increased to 3.2 today. IV Lasix was discontinued yesterday. Good urine output Objective - Vital Signs Vital signs: Vital Signs Temp 97.7 F 04/24/25 08:00 Pulse 80 04/24/25 12:00 Resp 18 04/24/25 08:00 BP 150/73 04/24/25 12:00 Pulse Ox 96 04/24/25 12:00 FiO2 100 04/19/25 13:15 Intake & Output 04/23/25 04/24/25 04/24/25 18:59 06:59 18:59 Intake Total 580 10 Output Total 1500 950 Balance -920 -940 Weight 89.5 kg Intake: IV 10 Invasive Line 7 10 Oral 580 Output: Urine 1500 950 Other: Voiding Method Indwelling Catheter Indwelling Catheter Indwelling Catheter - Exam Patient is awake, comfortable, no acute distress Examination of the heart S1 and S2 Examination of the lungs bilateral breath sounds are heard Abdomen soft nontender Examination lower extremity shows 1+ edema. 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 - Labs CBC & Chem 7: 04/23/25 08:48 04/24/25 10:19 Labs: Abnormal Lab Results - Last 24 Hours (Table) 04/23/25 04/23/25 04/24/25 Range/Units 16:19 19:36 06:42 Sodium (137-145) mmol/L Chloride (98-107) mmol/L Carbon Dioxide (22-30) mmol/L BUN (9-20) mg/dL Creatinine (0.66-1.25) mg/dL Glucose (74-99) mg/dL POC Glucose (mg/dL) 363 H 290 H 215 H (70-110) mg/dL Calcium (8.4-10.2) mg/dL 04/24/25 04/24/25 Range/Units 10:19 11:50 Sodium 131 L (137-145) mmol/L Chloride 91 L (98-107) mmol/L Carbon Dioxide 33 H (22-30) mmol/L BUN 82 H (9-20) mg/dL Creatinine 3.23 H (0.66-1.25) mg/dL Glucose 239 H (74-99) mg/dL POC Glucose (mg/dL) 300 H (70-110) mg/dL Calcium 8.1 L (8.4-10.2) mg/dL Assessment and Plan Assessment: 1. Acute kidney injury secondary to ATN secondary to cardiorenal syndrome. Started on hemodialysis April 17, 2025 due to refractory hyperkalemia and oliguria. UA shows 2+ protein, large blood and WBCs more than 182 has femoral catheter. Kidney ultrasound from December 2024 showed no evidence of hydronephrosis. Now nonoliguric. Hemodialysis on hold for possible recovery of renal function with increased urine output. Last hemodialysis was 05/19/2025 2. Chronic kidney disease stage IV with baseline creatinine 2.2-2.3. Etiology is diabetic kidney disease. 3. Hyperkalemia secondary to acute kidney injury and acidosis. Improved with dialysis. 4. Acute on chronic systolic CHF with ejection fraction of 40 to 45% with moderate mitral and tricuspid regurgitation. 5. Diabetes mellitus. 6. Coronary disease status post CABG. 7. Cardiac arrhythmia secondary to hyperkalemia. 8. Acute blood loss anemia status post blood transfusions. Also received IV DDAVP. 9. Volume overload, improved Plan: Continue to hold hemodialysis Hold Lasix Check chest x-ray repeat labs in a.m. Continue to avoid nephrotoxic agents
--- NOTE | 2025-04-24 13:19 | XR ---
EXAMINATION TYPE: XR chest 1V DATE OF EXAM: 04/24/2025 COMPARISON: 04/20/2025 CLINICAL INDICATION: Male, 74 years old with history of CHF; TECHNIQUE: Single frontal view of the chest is obtained. FINDINGS: Median sternotomy wires and post-CABG clips. Heart mildly enlarged. Diffuse interstitial opacities pe rsist but are improving. No sizable pleural effusion on the frontal view. IMPRESSION: Interval improvement. Pulmonary vascular congestion remains. [facility], Workstation: [id number], 04/24/2025 1:16 PM
[2025-04-24 14:17] VITALS: BMI 28.3
--- NOTE | 2025-04-24 15:55 | P.PCN ---
Description of Procedure: Patient was seen in his room left groins were prepped stitches was removed patient had a temporary dialysis catheter which was removed pressure was held pressure dressing applied patient tarted the procedure well
[2025-04-24 17:00] LABS: Glucose,Whole Blood 376 mg/dL (70-110)
--- NOTE | 2025-04-24 18:22 | P.PN ---
Subjective Progress Note Date: 04/24/25 On 04/21/2025, the patient is being seen for a follow-up. The patient is stable on 2 L of oxygen by nasal cannula. Last hemodialysis session was on 04/19/2025 and the patient is currently producing adequate amount of urine output with a negative fluid balance of 2.5 L over the past 24 hours. Renal function remained stable with a BUN of 68 and a creatinine of 2.7. Rest of the electrolytes are all within normal limits and the patient remains on Lasix 60 mg IV every 12 hours. Patient is known to have coronary disease with previous bypass surgery x 4 and echocardiogram showed ejection fraction 40 to 45% and the patient is currently receiving Lasix 60 mg IV every 12 hours. The patient has no signif icant respiratory distress and the patient is resting comfortably in bed. Most recent chest x-ray from 04/20/2025 showed no significant change in the patient continues to have some CHF findings with diffuse interstitial and alveolar opacity without any significant pleural effusions. Postthoracotomy changes seen in the chest x-ray. The patient's creatinine remained stable and the patient is known to have chronic kidney disease. On 04/22/2025, the patient is being seen for a follow-up. Doing well, resting comfortably in bed. The patient is currently off oxygen the patient is currently on room air oxygen with a pulse ox of 99%. Continues to produce excellent urine output and the patient has negative fluid balance of at least 4.6 L over the past 24 hours. Remains on Lasix 60 mg IV every 12 hours. Rest of the medications remain unchanged. Due to soft blood work, creatinine remains stable at 2.6 with a BUN of 78. Rest of the electrolytes are all normal. Sodium is at 136, serum bicarb is at 30. WBC count is at 8.3 with a hemoglobin of 10 and a platelet count of 132. On 04/23/2025, the patient is being seen for a follow-up. The patient resting comfortably in bed. The patient remains on room air oxygen with a pulse ox of 98%. Continues to make excellent urine output with a negative fluid balance of 2.7 L in the patient remains on Lasix and the patient has been switched to 40 mg of oral Lasix twice daily. Limited edema lower extremities bilaterally. No chest pain. No pleurisy. No hemoptysis. Doppler of the upper extremity showed a positive left basilic vein superficial vein thrombosis. No evidence of any DVT involving the left upper extremity. The patient remains on aspirin 81 mg p.o. daily. Rest of the medication unchanged. Remains on Lantus 24 units daily and NovoLog 5 units with meals and sliding scale coverage. Patient is also on Trulicity once a week. Amlodipine for blood pressure control 10 mg p.o. daily. The white cell count is 8.4 with a hemoglobin of 10.4 and the platelet count of 152. BUN is 71 and a creatinine is 2.88 and a potassium level of 3.8 and the chloride is at 93 with a bicarb level of 35. On 04/24/2025, patient is being seen for a follow-up. Patient is stable on room air oxygen. Producing adequate amount of urine output and the fluid balance - 1.8 L over the past 24 hours. BUN is 82 with a creatinine of 3.2. Sodium is at 131. Nephrology is on the case. No significant respiratory distress. Hemodynamically stable with a pulse ox of 99% on room air oxygen. Patient is currently off diuretics. Remains on Lantus insulin 24 units nightly and a sliding scale coverage. Remains on Norvasc 10 mg p.o. daily for blood pressure control. Still on Lipitor 20 mg p.o. daily. The temporary hemodialysis catheter was removed Objective - Vital Signs Vital signs: Vital Signs Temp 97.7 F 04/24/25 08:00 Pulse 80 04/24/25 08:00 Resp 18 04/24/25 08:00 BP 130/76 04/24/25 08:00 Pulse Ox 98 04/24/25 08:00 FiO2 100 04/19/25 13:15 Intake & Output 04/23/25 04/24/25 04/24/25 18:59 06:59 18:59 Intake Total 580 10 Output Total 1500 950 Balance -920 -940 Weight 89.5 kg Intake: IV 10 Invasive Line 7 10 Oral 580 Output: Urine 1500 950 Other: Voiding Method Indwelling Catheter Indwelling Catheter Indwelling Catheter - Exam GENERAL EXAM: Alert, 74-year-old male, on room air oxygen, calm and comfortable HEAD: Normocephalic. EYES: Normal reaction of pupils, equal size. NOSE: Clear with pink turbinates. THROAT: No erythema or exudates. NECK: No masses, no JVD. CHEST: No chest wall deformity. LUNGS: Equal air entry with crackles in the posterior bases. CVS: S1 and S2 normal with no audible murmur, regular rhythm. ABDOMEN: No hepatosplenomegaly, normal bowel sounds, no guarding or rigidity. SPINE: No scoliosis or deformity SKIN: No rashes CENTRAL NERVOUS SYSTEM: No focal deficits, tone is normal in all 4 extremities. EXTREMITIES: Right femoral hemodialysis catheter in place. There is no peripheral edema. No clubbing, no cyanosis. Peripheral pulses are intact. - Labs CBC & Chem 7: 04/23/25 08:48 04/24/25 10:19 Labs: Abnormal Lab Results - Last 24 Hours (Table) 04/23/25 04/23/25 04/24/25 Range/Units 16:19 19:36 06:42 Sodium (137-145) mmol/L Chloride (98-107) mmol/L Carbon Dioxide (22-30) mmol/L BUN (9-20) mg/dL Creatinine (0.66-1.25) mg/dL Glucose (74-99) mg/dL POC Glucose (mg/dL) 363 H 290 H 215 H (70-110) mg/dL Calcium (8.4-10.2) mg/dL 04/24/25 04/24/25 Range/Units 10:19 11:50 Sodium 131 L (137-145) mmol/L Chloride 91 L (98-107) mmol/L Carbon Dioxide 33 H (22-30) mmol/L BUN 82 H (9-20) mg/dL Creatinine 3.23 H (0.66-1.25) mg/dL Glucose 239 H (74-99) mg/dL POC Glucose (mg/dL) 300 H (70-110) mg/dL Calcium 8.1 L (8.4-10.2) mg/dL Assessment and Plan Plan: Acute hypoxic respiratory failure, the patient oxygenation is improved and the patient is down from 15 L to room air oxygen. No significant respiratory distress and the patient is laying down comfortably in bed Acute kidney injury secondary to ATN secondary to cardiorenal syndrome on top of chronic kidney disease/stage IV. Received temporary dialysis catheter 04/17/2025. Received hemodialysis 04/17, 04/18 and 04/19/25, and the patient is producing adequate amount of urine output for now. Romeo catheter is in place. Nephrology on the case. The patient is currently off diuretics Acute anemia secondary to above with a hemoglobin is stable Hyperkalemia secondary to above, improved Hyponatremia, improved Metabolic acidosis improved Sinus pause with significant bradycardia requiring temporary venous pacer placement 04/17/2025 and removed 04/19/2025 Acute exacerbation of chronic diastolic congestive heart failure. Echocardiogram was done on 04/17/2025 showed a mild impairment LV function with an ejection fraction of 40 to 45% with mild concentric LVH and moderate global LV hypokinesis. No significant valvular abnormalities. Moderate to severe mitral regurgitation Pulmonary hypertension History of chronic kidney disease stage IV Diabetes mellitus with hyperglycemia Diabetic neuropathy Coronary artery disease with previous coronary artery bypass grafting Plan: Oxygenation is stable and the patient is currently on room air oxygen Hemodialysis currently on hold as the patient is producing adequate amount of urine output. The temporary dialysis catheter has been removed Currently in a negative fluid balance Potassium level is stable Nephrology is following Lantus insulin 24 units daily and NovoLog 5 units with meals and insulin scale coverage The patient is currently off diuretics Monitor electrolytes and renal function Continue Lantus insulin 24 units daily and NovoLog 5 units with meals Continue levothyroxine 150 mcg p.o. daily Continue Norvasc 10 mg p.o. daily Continue aspirin 81 mg p.o. daily Continue Lipitor 20 mg p.o. daily Pulmonary critical care services will sign off.
[2025-04-24 20:20] LABS: Glucose,Whole Blood 350 mg/dL (70-110)
--- NOTE | 2025-04-24 20:48 | P.PN ---
Subjective 74-year-old male patient with history of coronary artery disease with previous stent placement, subsequent coronary bypass grafting, peripheral arterial disease, diabetes mellitus, diabetic neuropathy, gastroesophageal reflux disease, hypertension, hyperlipidemia, hypothyroidism, former smoker who was brought in from the local longterm with complaints of persistent nausea and shortness of breath. Chest x-ray reveals cardiomegaly and pulmonary vascular congestion. EKG revealed significant sinus pauses and bradycardia. White count 12.4. Hemoglobin 7.7. Platelets 270. Sodium 128. Potassium 7.7. Bicarb 17. BUN 83. Creatinine 3.68. Glucose 483. Acetone negative. proBNP 11,400. Troponin opponent negative x 1. He was taken to the [facility] Director for temporary venous pacemaker placement. He is seen in consultation in the intensive care unit. He is receiving a hemodialysis catheter. He is maintaining O2 saturations in the 90s on 2 L/min per nasal cannula. He is currently afebrile. Mean arterial pressure 68. Heart rate 60. He is on normal saline at 50 mL/h. Receiving Lasix 40 mg IV every 12 hours. On an insulin drip at 10.7 units/h. 04/20/2025 Patient is seen and evaluated in follow-up in the intensive care unit. He is currently sitting up in bed. Awake and alert in no acute distress. Maintaining good O2 saturations in the 90s on 3 L/min per nasal cannula. No IV fluids. - His temporary venous pacemaker was discontinued. Patient remains on Lantus and Humalog sliding scale; with Accu-Cheks before every meal and at bedtime with insulin sliding. Blood work is reviewed white count 7.7. Hemoglobin 7.7. Platelets 101. Sodium 133. Potassium 3.7. Bicarb 31. BUN 51. Creatinine 2.60. Glucose 200. - Chest x-ray reveals mild fluid volume overload; patient received Lasix 80 mg IV push x 1 yesterday --Hemodialysis, third session done yesterday - We will continue to monitor electrolytes - O2 saturation markedly improved currently on 3 L per nasal cannula 04/21 This is a pleasant 74 years old male who presents with acute CHF exacerbation, EF is 40 to 45% Also patient was found to have severe anemia status post 2 units of blood transfusion and thrombocytopenia which is mild but acute kidney injury was worsening and he was started on hemodialysis on 04/17. Patient is a known case of stage IV chronic kidney disease. Continue with IV Lasix per nephrology currently on 60 mg twice daily continue and electrolytes. Nephrology team consult Vital stable Creatinine 2.6 yesterday. Which is improving Check labs tomorrow 04/22 Patient still tachypneic and coughing but not bothering the patient much Romeo catheter in place Going to [facility]CF for rehab Eat meals well no other new signs symptoms He has 1 loose bowel movement yesterday but no abdominal pain. Discussed case with nephrology team would like to monitor 1 more day. Currently hemodialysis is on hold Remains on IV Lasix from 60 mg twice daily which, to be switched to the same dose upon discharge compared to 40 mg twice daily prior to hospitalization 04/23 Patient has left upper extremity swelling, venous Doppler ordered showing superficial vein thrombosis no significant pain or erythema Still mildly tachypneic Not on a blood thinner at home and on aspirin No other new complaint Today Lasix which and to oral dose 04/24 Patient overall was doing well clinically today, he was sitting up in bed breathing okay no other complaints or pain Temporal hemodialysis catheter was still on the left groin which was removed by vascular surgery team However his creatinine jumped up today to 3.2 compared to 2.6 yesterday. IV Lasix was held, most likely secondary to overdiuresis, this was precipitated by hyperglycemia causing more dehydration which might contributed to elevated creatinine. Therefore we increased his Lantus currently he was taking 24 units at bedtime we submitted back to 13 units twice daily because of his yearly morning hypoglycemia and also will increase short acting insulin from 5 units up to 10 units with meal Continue monitoring and if he keeps improving may be discharge in 24 to 48 hours Objective - Vital Signs Vital signs: Vital Signs Temp 97.7 F 04/24/25 08:00 Pulse 92 04/24/25 16:30 Resp 18 04/24/25 14:00 BP 155/74 04/24/25 16:30 Pulse Ox 99 04/24/25 16:30 FiO2 100 04/19/25 13:15 Intake & Output 04/24/25 04/24/25 04/25/25 06:59 18:59 06:59 Intake Total 10 460 Output Total 950 900 Balance -940 -440 Weight 89.5 kg 89.5 kg Intake: IV 10 Invasive Line 7 10 Intake, IV Titration 20 Amount Sodium Chloride 0.9% 1, 20 000 ml @ 0 mls/hr IV .[employer] ONE Rx#:[id number] Oral 440 Output: Urine 950 900 Other: Voiding Method Indwelling Catheter Indwelling Catheter # Bowel Movements 0 - Exam GENERAL: The patient is alert and oriented x3, not in any acute distress. Well developed, well nourished. HEENT: Pupils are round and equally reacting to light. EOMI. No scleral icterus. No conjunctival pallor. Normocephalic, atraumatic. No pharyngeal erythema. No thyromegaly. CARDIOVASCULAR: S1 and S2 present. No murmurs, rubs, or gallops. PULMONARY: Chest is clear to auscultation, no wheezing , no crackles. ABDOMEN: Soft, nontender, nondistended, normoactive bowel sounds. No palpable organomegaly. MUSCULOSKELETAL: No joint swelling or deformity. EXTREMITIES: No cyanosis, clubbing, or pedal edema. NEUROLOGICAL: Gross neurological examination did not reveal any focal deficits. SKIN: No rashes. no petechiae. - Labs CBC & Chem 7: 04/23/25 08:48 04/24/25 10:19 Labs: Abnormal Lab Results - Last 24 Hours (Table) 04/24/25 04/24/25 04/24/25 Range/Units 06:42 10:19 11:50 Sodium 131 L (137-145) mmol/L Chloride 91 L (98-107) mmol/L Carbon Dioxide 33 H (22-30) mmol/L BUN 82 H (9-20) mg/dL Creatinine 3.23 H (0.66-1.25) mg/dL Glucose 239 H (74-99) mg/dL POC Glucose (mg/dL) 215 H 300 H (70-110) mg/dL Calcium 8.1 L (8.4-10.2) mg/dL 04/24/25 04/24/25 Range/Units 16:57 20:18 Sodium (137-145) mmol/L Chloride (98-107) mmol/L Carbon Dioxide (22-30) mmol/L BUN (9-20) mg/dL Creatinine (0.66-1.25) mg/dL Glucose (74-99) mg/dL POC Glucose (mg/dL) 376 H 350 H (70-110) mg/dL Calcium (8.4-10.2) mg/dL Assessment and Plan Assessment: Acute kidney injury secondary to ATN secondary to cardiorenal syndrome. Received temporary dialysis catheter 04/17/2025. Received hemodialysis 04/17, 04/18 and 04/20 Acute anemia secondary to above with a hemoglobin of 6.4, status post 2 units of packed red blood cells, improved Hyperkalemia secondary to above, improved Hyponatremia, improved Metabolic acidosis improved Sinus pause with significant bradycardia requiring temporary venous pacer placement 04/17/2025 Acute exacerbation of chronic diastolic congestive heart failure Acute hypoxic respiratory failure secondary to above, currently on 10 L high flow nasal cannula Moderate to severe mitral regurgitation History of chronic kidney disease stage IV Diabetes mellitus with hyperglycemia//Diabetic neuropathy Coronary artery disease with previous coronary artery bypass grafting Plan: Continue with oral Lasix per nephrology team Monitor creatinine and electrolytes Change Lantus to 13 units twice daily which is home dose but increase short acting insulin to 10 units with meals 3 times daily Nephrology team consult Cardiology and pulmonary team consult. Cardiology team sign off the case Labs and medication were reviewed.. Continue same treatment. Continue with symptomatic treatment. Resume home medication. Monitor labs and vitals. DVT and GI prophylaxis. Further recommendations as per clinical course of the patient DVT prophylaxis: no Subcutaneous heparin for severe anemia GI Prophylaxis: Pepcid and Protonix PT/OT: Pending Prognosis is guarded
[2025-04-24] MEDS ORDERED: INSULIN GLARGINE (LANTUS) 100 UNIT/ML SYR SQ SCH (21:00)
[2025-04-24] MEDS: INSULIN GLARGINE (LANTUS) 100 UNIT/ML SYR SQ SCH (21:04)
[2025-04-25] MEDS: ACETAMINOPHEN TAB 325 MG TAB PO PRN (00:54)
[2025-04-25 07:44] LABS: Glucose,Whole Blood 67 mg/dL (70-110)
[2025-04-25 08:21] LABS: Glucose,Whole Blood 73 mg/dL (70-110)
[2025-04-25] MEDS: INSULIN LISPRO (HumaLOG) 100 UNIT/ML 10 mL VL SQ SCH (08:28)
[2025-04-25 09:17] LABS: African American GFR (CKD) 21 (>60 ml/min/1.73 sqM); Anion Gap 9 mmol/L; Blood Urea Nitrogen 87 mg/dL (9-20); Calcium 8.4 mg/dL (8.4-10.2); Carbon Dioxide 31 mmol/L (22-30); Chloride 95 mmol/L (98-107); Glucose 53 mg/dL (74-99); Non-African American GFR(CKD) 19 (>60 ml/min/1.73 sqM); Potassium 3.3 mmol/L (3.5-5.1); Sodium 135 mmol/L (137-145)
[2025-04-25 12:00] LABS: Glucose,Whole Blood 447 mg/dL (70-110)
[2025-04-25] MEDS: POTASSIUM CHLORIDE ER 20 MEQ TAB.ER PO SCH (13:17)
[2025-04-25 16:53] LABS: Bacteria,Urine Many /hpf; Bilirubin,Urine Negative (Negative); Blood,Urine Small (Negative); Color,Urine Colorless; Glucose,Urine (UA) 3+ (Negative); Ketones,Urine Negative (Negative); Leukocyte Esterase,Urine Large (Negative); Nitrite,Urine Negative (Negative); PH, Urine 6.0 (5.0-8.0); Protein,Urine 1+ (Negative); RBC,Urine 7 /hpf (0-5); Specific Gravity,Urine 1.012 (1.001-1.035); Urobilinogen,Urine <2.0 mg/dL (<2.0); WBC,Urine >182 /hpf (0-5)
--- NOTE | 2025-04-25 17:01 | P.PN ---
Subjective Patient is seen for follow-up for acute kidney injury. Started hemodialysis on 04/17/2025. Renal function has improved and hemodialysis is on hold. Urine output documented at 2.4 L for 24 hours Last hemodialysis on 05/19/2025 No significant complaints today. serum creatinine at 3.1 today. IV Lasix has been discontinued. Objective - Vital Signs Vital signs: Vital Signs Temp 97.8 F 04/25/25 11:57 Pulse 79 04/25/25 11:57 Resp 16 04/25/25 11:57 BP 148/72 04/25/25 11:57 Pulse Ox 96 04/25/25 11:57 FiO2 100 04/19/25 13:15 Intake & Output 04/24/25 04/25/25 04/25/25 18:59 06:59 18:59 Intake Total 460 837 10 Output Total 103 337 9403 Balance -440 237 -1190 Weight 89.5 kg 87.5 kg Intake: IV 10 10 Invasive Line 7 10 10 Intake, IV Titration 20 Amount Sodium Chloride 0.9% 1, 20 000 ml @ 0 mls/hr IV .[employer] ONE Rx#:[id number] Oral 440 827 Output: Urine 188 080 2761 Uretheral (Romeo) 600 Other: Voiding Method Indwelling Catheter Indwelling Catheter Indwelling Catheter # Bowel Movements 0 - Exam Patient is awake, comfortable, no acute distress Examination of the heart S1 and S2 Examination of the lungs bilateral breath sounds are heard Abdomen soft nontender Examination lower extremity shows trace edema. [employer] exam grossly intact - Labs CBC & Chem 7: 04/23/25 08:48 04/25/25 08:10 Labs: Abnormal Lab Results - Last 24 Hours (Table) 04/24/25 04/24/25 04/25/25 Range/Units 16:57 20:18 07:37 Sodium (137-145) mmol/L Potassium (3.5-5.1) mmol/L Chloride (98-107) mmol/L Carbon Dioxide (22-30) mmol/L BUN (9-20) mg/dL Creatinine (0.66-1.25) mg/dL Glucose (74-99) mg/dL POC Glucose (mg/dL) 376 H 350 H 67 L (70-110) mg/dL Urine Protein (Negative) Urine Glucose (UA) (Negative) Urine Blood (Negative) Ur Leukocyte Esterase (Negative) Urine RBC (0-5) /hpf Urine WBC (0-5) /hpf Urine WBC Clumps (None) /hpf Urine Bacteria (None) /hpf 04/25/25 04/25/25 04/25/25 Range/Units 08:10 11:59 16:28 Sodium 135 L (137-145) mmol/L Potassium 3.3 L (3.5-5.1) mmol/L Chloride 95 L (98-107) mmol/L Carbon Dioxide 31 H (22-30) mmol/L BUN 87 H (9-20) mg/dL Creatinine 3.14 H (0.66-1.25) mg/dL Glucose 53 L (74-99) mg/dL POC Glucose (mg/dL) 447 H (70-110) mg/dL Urine Protein 1+ H (Negative) Urine Glucose (UA) 3+ H (Negative) Urine Blood Small H (Negative) Ur Leukocyte Esterase Large H (Negative) Urine RBC 7 H (0-5) /hpf Urine WBC >182 H (0-5) /hpf Urine WBC Clumps Many H (None) /hpf Urine Bacteria Many H (None) /hpf Assessment and Plan Assessment: 1. Acute kidney injury secondary to ATN secondary to cardiorenal syndrome. Started on hemodialysis April 17, 2025 due to refractory hyperkalemia and oliguria. UA shows 2+ protein, large blood and WBCs more than 182 has femoral catheter. Kidney ultrasound from December 2024 showed no evidence of hydronephrosis. Now nonoliguric. Hemodialysis on hold for possible recovery of renal function with increased urine output. Last hemodialysis was 05/19/2025. Dialysis catheter removed on 04/24/2025 2. Chronic kidney disease stage IV with baseline creatinine 2.2-2.3. Etiology is diabetic kidney disease. 3. Hyperkalemia secondary to acute kidney injury and acidosis. Improved with dialysis. 4. Acute on chronic systolic CHF with ejection fraction of 40 to 45% with moderate mitral and tricuspid regurgitation. 5. Diabetes mellitus. 6. Coronary disease status post CABG. 7. Cardiac arrhythmia secondary to hyperkalemia. 8. Acute blood loss anemia status post blood transfusions. Also received IV DDAVP. 9. Volume overload, improved Plan: Continue to hold hemodialysis Hold Lasix Patient may need Lasix 2-3 times a week postdischarge. Stable for discharge from nephrology standpoint. repeat labs in a.m. Continue to avoid nephrotoxic agents
[2025-04-25 17:19] LABS: Glucose,Whole Blood 430 mg/dL (70-110)
[2025-04-25 20:17] LABS: Glucose,Whole Blood 200 mg/dL (70-110)
--- NOTE | 2025-04-26 00:45 | P.PN ---
Subjective 74-year-old male patient with history of coronary artery disease with previous stent placement, subsequent coronary bypass grafting, peripheral arterial disease, diabetes mellitus, diabetic neuropathy, gastroesophageal reflux disease, hypertension, hyperlipidemia, hypothyroidism, former smoker who was brought in from the local shelter with complaints of persistent nausea and shortness of breath. Chest x-ray reveals cardiomegaly and pulmonary vascular congestion. EKG revealed significant sinus pauses and bradycardia. White count 12.4. Hemoglobin 7.7. Platelets 270. Sodium 128. Potassium 7.7. Bicarb 17. BUN 83. Creatinine 3.68. Glucose 483. Acetone negative. proBNP 11,400. Troponin opponent negative x 1. He was taken to the [facility] for temporary venous pacemaker placement. He is seen in consultation in the intensive care unit. He is receiving a hemodialysis catheter. He is maintaining O2 saturations in the 90s on 2 L/min per nasal cannula. He is currently afebrile. Mean arterial pressure 68. Heart rate 60. He is on normal saline at 50 mL/h. Receiving Lasix 40 mg IV every 12 hours. On an insulin drip at 10.7 units/h. 04/20/2025 Patient is seen and evaluated in follow-up in the intensive care unit. He is currently sitting up in bed. Awake and alert in no acute distress. Maintaining good O2 saturations in the 90s on 3 L/min per nasal cannula. No IV fluids. - His temporary venous pacemaker was discontinued. Patient remains on Lantus and Humalog sliding scale; with Accu-Cheks before every meal and at bedtime with insulin sliding. Blood work is reviewed white count 7.7. Hemoglobin 7.7. Platelets 101. Sodium 133. Potassium 3.7. Bicarb 31. BUN 51. Creatinine 2.60. Glucose 200. - Chest x-ray reveals mild fluid volume overload; patient received Lasix 80 mg IV push x 1 yesterday --Hemodialysis, third session done yesterday - We will continue to monitor electrolytes - O2 saturation markedly improved currently on 3 L per nasal cannula 04/21 This is a pleasant 74 years old male who presents with acute CHF exacerbation, EF is 40 to 45% Also patient was found to have severe anemia status post 2 units of blood transfusion and thrombocytopenia which is mild but acute kidney injury was worsening and he was started on hemodialysis on 04/17. Patient is a known case of stage IV chronic kidney disease. Continue with IV Lasix per nephrology currently on 60 mg twice daily continue and electrolytes. Nephrology team consult Vital stable Creatinine 2.6 yesterday. Which is improving Check labs tomorrow 04/22 Patient still tachypneic and coughing but not bothering the patient much Romeo catheter in place Going to ECF for rehab Eat meals well no other new signs symptoms He has 1 loose bowel movement yesterday but no abdominal pain. Discussed case with nephrology team would like to monitor 1 more day. Currently hemodialysis is on hold Remains on IV Lasix from 60 mg twice daily which, to be switched to the same dose upon discharge compared to 40 mg twice daily prior to hospitalization 04/23 Patient has left upper extremity swelling, venous Doppler ordered showing superficial vein thrombosis no significant pain or erythema Still mildly tachypneic Not on a blood thinner at home and on aspirin No other new complaint Today Lasix which and to oral dose 04/24 Patient overall was doing well clinically today, he was sitting up in bed breathing okay no other complaints or pain Temporal hemodialysis catheter was still on the left groin which was removed by vascular surgery team However his creatinine jumped up today to 3.2 compared to 2.6 yesterday. IV Lasix was held, most likely secondary to overdiuresis, this was precipitated by hyperglycemia causing more dehydration which might contributed to elevated creatinine. Therefore we increased his Lantus currently he was taking 24 units at bedtime we submitted back to 13 units twice daily because of his yearly morning hypoglycemia and also will increase short acting insulin from 5 units up to 10 units with meal Continue monitoring and if he keeps improving may be discharge in 24 to 48 hours 04/25 Patient was improving slowly and gradually, his IV Lasix was switched to oral dose and creatinine stable and down to 3.1 Patient was going been considered for possible discharge today however he developed fever of 100.4 workup showing abnormal urine analysis and culture of the urine growing gram-negative bacilli Patient started on ceftriaxone Nephrology team already cleared her for discharge Also using oral Lasix His temporal hemodialysis catheter was removed from his left groin yesterday and he tolerated the procedure well Objective - Vital Signs Vital signs: Vital Signs Temp 97.8 F 04/25/25 11:57 Pulse 79 04/25/25 11:57 Resp 16 04/25/25 11:57 BP 148/72 04/25/25 11:57 Pulse Ox 96 04/25/25 11:57 FiO2 100 04/19/25 13:15 Intake & Output 04/24/25 04/25/25 04/25/25 18:59 06:59 18:59 Intake Total 460 837 10 Output Total 648 542 4745 Balance -440 237 -1190 Weight 89.5 kg 87.5 kg Intake: IV 10 10 Invasive Line 7 10 10 Intake, IV Titration 20 Amount Sodium Chloride 0.9% 1, 20 000 ml @ 0 mls/hr IV .[facility] Rx#:[id number] Oral 440 827 Output: Urine 999 486 0876 Uretheral (Romeo) 600 Other: Voiding Method Indwelling Catheter Indwelling Catheter Indwelling Catheter # Bowel Movements 0 - Exam GENERAL: The patient is alert and oriented x3, not in any acute distress. Well developed, well nourished. HEENT: Pupils are round and equally reacting to light. EOMI. No scleral icterus. No conjunctival pallor. Normocephalic, atraumatic. No pharyngeal erythema. No thyromegaly. CARDIOVASCULAR: S1 and S2 present. No murmurs, rubs, or gallops. PULMONARY: Chest is clear to auscultation, no wheezing , no crackles. ABDOMEN: Soft, nontender, nondistended, normoactive bowel sounds. No palpable organomegaly. MUSCULOSKELETAL: No joint swelling or deformity. EXTREMITIES: No cyanosis, clubbing, or pedal edema. NEUROLOGICAL: Gross neurological examination did not reveal any focal deficits. SKIN: No rashes. no petechiae. - Labs CBC & Chem 7: 04/23/25 08:48 04/25/25 08:10 Labs: Abnormal Lab Results - Last 24 Hours (Table) 04/24/25 04/24/25 04/25/25 Range/Units 16:57 20:18 07:37 Sodium (137-145) mmol/L Potassium (3.5-5.1) mmol/L Chloride (98-107) mmol/L Carbon Dioxide (22-30) mmol/L BUN (9-20) mg/dL Creatinine (0.66-1.25) mg/dL Glucose (74-99) mg/dL POC Glucose (mg/dL) 376 H 350 H 67 L (70-110) mg/dL 04/25/25 04/25/25 Range/Units 08:10 11:59 Sodium 135 L (137-145) mmol/L Potassium 3.3 L (3.5-5.1) mmol/L Chloride 95 L (98-107) mmol/L Carbon Dioxide 31 H (22-30) mmol/L BUN 87 H (9-20) mg/dL Creatinine 3.14 H (0.66-1.25) mg/dL Glucose 53 L (74-99) mg/dL POC Glucose (mg/dL) 447 H (70-110) mg/dL Assessment and Plan Assessment: Acute urinary tract infection secondary to gram-negative backslide diagnosed on 04/25 Acute kidney injury secondary to ATN secondary to cardiorenal syndrome. Received temporary dialysis catheter 04/17/2025. Received hemodialysis 04/17, 04/18 and 04/20 Acute anemia secondary to above with a hemoglobin of 6.4, status post 2 units of packed red blood cells, improved Hyperkalemia secondary to above, improved Hyponatremia, improved Metabolic acidosis improved Sinus pause with significant bradycardia requiring temporary venous pacer placement 04/17/2025 Acute exacerbation of chronic diastolic congestive heart failure Acute hypoxic respiratory failure secondary to above, currently on 10 L high flow nasal cannula Moderate to severe mitral regurgitation History of chronic kidney disease stage IV Diabetes mellitus with hyperglycemia//Diabetic neuropathy Coronary artery disease with previous coronary artery bypass grafting Plan: Continue with ceftriaxone. Follow-up urine culture Continue with oral Lasix per nephrology team Monitor creatinine and electrolytes Change Lantus to 13 units twice daily which is home dose but increase short acting insulin to 10 units with meals 3 times daily Nephrology team consult Cardiology and pulmonary team consult. Cardiology team sign off the case Labs and medication were reviewed.. Continue same treatment. Continue with symptomatic treatment. Resume home medication. Monitor labs and vitals. DVT and GI prophylaxis. Further recommendations as per clinical course of the patient DVT prophylaxis: no Subcutaneous heparin for severe anemia GI Prophylaxis: Pepcid and Protonix PT/OT: Pending Prognosis is guarded
[2025-04-26 07:04] LABS: Glucose,Whole Blood 194 mg/dL (70-110)
[2025-04-26 11:57] LABS: African American GFR (CKD) 23 (>60 ml/min/1.73 sqM); Anion Gap 10 mmol/L; Blood Urea Nitrogen 91 mg/dL (9-20); Calcium 8.3 mg/dL (8.4-10.2); Carbon Dioxide 26 mmol/L (22-30); Chloride 97 mmol/L (98-107); Glucose 233 mg/dL (74-99); Non-African American GFR(CKD) 20 (>60 ml/min/1.73 sqM); Potassium 4.5 mmol/L (3.5-5.1); Sodium 133 mmol/L (137-145)
[2025-04-26 12:18] LABS: Glucose,Whole Blood 236 mg/dL (70-110)
--- NOTE | 2025-04-26 12:48 | P.PN ---
Subjective Patient is seen for follow-up for acute kidney injury. Started hemodialysis on 04/17/2025. Renal function has improved and hemodialysis is on hold. Urine output documented at 2.3 L for 24 hours Last hemodialysis on 05/19/2025 No significant complaints today. serum creatinine at 2.9 today. currently off of diuretics Objective - Vital Signs Vital signs: Vital Signs Temp 98.4 F 04/26/25 12:03 Pulse 71 04/26/25 12:03 Resp 16 04/26/25 12:03 BP 132/70 04/26/25 12:03 Pulse Ox 96 04/26/25 12:03 FiO2 100 04/19/25 13:15 Intake & Output 04/25/25 04/26/25 04/26/25 18:59 06:59 18:59 Intake Total 1680 550 10 Output Total 1475 900 Balance 205 -350 10 Weight 88 kg Intake: IV 10 10 10 Invasive Line 7 10 10 10 Intake, IV Titration 50 Amount cefTRIAXone 1 gm In 50 Sodium Chloride 0.9% 50 ml @ 100 mls/hr IVPB Q24HR [facility] Rx#:[id number] Oral 1620 540 Output: Urine 1475 900 Uretheral (Romeo) 600 Other: Voiding Method Indwelling Catheter Indwelling Catheter Indwelling Catheter - Exam Patient is awake, comfortable, no acute distress Examination of the heart S1 and S2 Examination of the lungs bilateral breath sounds are heard Abdomen soft nontender Examination lower extremity shows trace edema. T[employer] SERVER exam grossly intact - Labs CBC & Chem 7: 04/23/25 08:48 04/26/25 10:43 Labs: Abnormal Lab Results - Last 24 Hours (Table) 04/25/25 04/25/25 04/25/25 Range/Units 16:28 17:17 20:15 Sodium (137-145) mmol/L Chloride (98-107) mmol/L BUN (9-20) mg/dL Creatinine (0.66-1.25) mg/dL Glucose (74-99) mg/dL POC Glucose (mg/dL) 430 H 200 H (70-110) mg/dL Calcium (8.4-10.2) mg/dL Urine Protein 1+ H (Negative) Urine Glucose (UA) 3+ H (Negative) Urine Blood Small H (Negative) Ur Leukocyte Esterase Large H (Negative) Urine RBC 7 H (0-5) /hpf Urine WBC >182 H (0-5) /hpf Urine WBC Clumps Many H (None) /hpf Urine Bacteria Many H (None) /hpf 04/26/25 04/26/25 04/26/25 Range/Units 07:03 10:43 12:06 Sodium 133 L (137-145) mmol/L Chloride 97 L (98-107) mmol/L BUN 91 H (9-20) mg/dL Creatinine 2.95 H (0.66-1.25) mg/dL Glucose 233 H (74-99) mg/dL POC Glucose (mg/dL) 194 H 236 H (70-110) mg/dL Calcium 8.3 L (8.4-10.2) mg/dL Urine Protein (Negative) Urine Glucose (UA) (Negative) Urine Blood (Negative) Ur Leukocyte Esterase (Negative) Urine RBC (0-5) /hpf Urine WBC (0-5) /hpf Urine WBC Clumps (None) /hpf Urine Bacteria (None) /hpf Microbiology - Last 24 Hours (Table) 04/24/25 14:40 Urine Culture - Preliminary Urine,Catheterized Gram Neg Bacilli Assessment and Plan Assessment: 1. Acute kidney injury secondary to ATN secondary to cardiorenal syndrome. Started on hemodialysis April 17, 2025 due to refractory hyperkalemia and oliguria. UA shows 2+ protein, large blood and WBCs more than 182 has femoral catheter. Kidney ultrasound from December 2024 showed no evidence of hydronephrosis. Now nonoliguric. Hemodialysis on hold for possible recovery of renal function with increased urine output. Last hemodialysis was 05/19/2025. Dialysis catheter removed on 04/24/2025 2. Chronic kidney disease stage IV with baseline creatinine 2.2-2.3. Etiology is diabetic kidney disease. 3. Hyperkalemia secondary to acute kidney injury and acidosis. Improved with dialysis. 4. Acute on chronic systolic CHF with ejection fraction of 40 to 45% with moderate mitral and tricuspid regurgitation. 5. Diabetes mellitus. 6. Coronary disease status post CABG. 7. Cardiac arrhythmia secondary to hyperkalemia. 8. Acute blood loss anemia status post blood transfusions. Also received IV DDAVP. 9. Volume overload, improved Plan: Continue to hold hemodialysis DC potassium Hold Lasix Patient may need Lasix 2-3 times a week post discharge. Stable for discharge from nephrology standpoint. repeat labs in a.m. Continue to avoid nephrotoxic agents
[2025-04-26 16:38] LABS: Glucose,Whole Blood 133 mg/dL (70-110)
[2025-04-26 20:10] LABS: Glucose,Whole Blood 142 mg/dL (70-110)
--- NOTE | 2025-04-27 01:04 | P.PN ---
Subjective 74-year-old male patient with history of coronary artery disease with previous stent placement, subsequent coronary bypass grafting, peripheral arterial disease, diabetes mellitus, diabetic neuropathy, gastroesophageal reflux disease, hypertension, hyperlipidemia, hypothyroidism, former smoker who [facility] with complaints of persistent nausea and shortness of breath. Chest x-ray reveals cardiomegaly and pulmonary vascular congestion. EKG revealed significant sinus pauses and bradycardia. White count 12.4. Hemoglobin 7.7. Platelets 270. Sodium 128. Potassium 7.7. Bicarb 17. BUN 83. Creatinine 3.68. Glucose 483. Acetone negative. proBNP 11,400. Troponin opponent negative x 1. He was taken to the [facility] for temporary venous pacemaker placement. He is seen in consultation in the intensive care unit. He is receiving a hemodialysis catheter. He is maintaining O2 saturations in the 90s on 2 L/min per nasal cannula. He is currently afebrile. Mean arterial pressure 68. Heart rate 60. He is on normal saline at 50 mL/h. Receiving Lasix 40 mg IV every 12 hours. On an insulin drip at 10.7 units/h. 04/20/2025 Patient is seen and evaluated in follow-up in the intensive care unit. He is currently sitting up in bed. Awake and alert in no acute distress. Maintaining good O2 saturations in the 90s on 3 L/min per nasal cannula. No IV fluids. - His temporary venous pacemaker was discontinued. Patient remains on Lantus and Humalog sliding scale; with Accu-Cheks before every meal and at bedtime with insulin sliding. Blood work is reviewed white count 7.7. Hemoglobin 7.7. Platelets 101. Sodium 133. Potassium 3.7. Bicarb 31. BUN 51. Creatinine 2.60. Glucose 200. - Chest x-ray reveals mild fluid volume overload; patient received Lasix 80 mg IV push x 1 yesterday --Hemodialysis, third session done yesterday - We will continue to monitor electrolytes - O2 saturation markedly improved currently on 3 L per nasal cannula 04/21 This is a pleasant 74 years old male who presents with acute CHF exacerbation, EF is 40 to 45% Also patient was found to have severe anemia status post 2 units of blood transfusion and thrombocytopenia which is mild but acute kidney injury was worsening and he was started on hemodialysis on 04/17. Patient is a known case of stage IV chronic kidney disease. Continue with IV Lasix per nephrology currently on 60 mg twice daily continue and electrolytes. Nephrology team consult Vital stable Creatinine 2.6 yesterday. Which is improving Check labs tomorrow 04/22 Patient still tachypneic and coughing but not bothering the patient much Romeo catheter in place Going to ECF for rehab Eat meals well no other new signs symptoms He has 1 loose bowel movement yesterday but no abdominal pain. Discussed case with nephrology team would like to monitor 1 more day. Currently hemodialysis is on hold Remains on IV Lasix from 60 mg twice daily which, to be switched to the same dose upon discharge compared to 40 mg twice daily prior to hospitalization 04/23 Patient has left upper extremity swelling, venous Doppler ordered showing superficial vein thrombosis no significant pain or erythema Still mildly tachypneic Not on a blood thinner at home and on aspirin No other new complaint Today Lasix which and to oral dose 04/24 Patient overall was doing well clinically today, he was sitting up in bed breathing okay no other complaints or pain Temporal hemodialysis catheter was still on the left groin which was removed by vascular surgery team However his creatinine jumped up today to 3.2 compared to 2.6 yesterday. IV Lasix was held, most likely secondary to overdiuresis, this was precipitated by hyperglycemia causing more dehydration which might contributed to elevated creatinine. Therefore we increased his Lantus currently he was taking 24 units at bedtime we submitted back to 13 units twice daily because of his yearly morning hypoglycemia and also will increase short acting insulin from 5 units up to 10 units with meal Continue monitoring and if he keeps improving may be discharge in 24 to 48 hours 04/25 Patient was improving slowly and gradually, his IV Lasix was switched to oral dose and creatinine stable and down to 3.1 Patient was going been considered for possible discharge today however he developed fever of 100.4 workup showing abnormal urine analysis and culture of the urine growing gram-negative bacilli Patient started on ceftriaxone Nephrology team already cleared her for discharge Also using oral Lasix His temporal hemodialysis catheter was removed from his left groin yesterday and he tolerated the procedure well 04/26 Patient spiked a fever 100.4 secondary to UTI Urine cultures Gram negative bacilli On ceftriaxone Creatinine trending down 2.9 Objective - Vital Signs Vital signs: Vital Signs Temp 98.4 F 04/26/25 12:03 Pulse 71 04/26/25 12:03 Resp 16 04/26/25 12:03 BP 132/70 04/26/25 12:03 Pulse Ox 96 04/26/25 12:03 FiO2 100 04/19/25 13:15 Intake & Output 04/26/25 04/26/25 04/27/25 06:59 18:59 06:59 Intake Total 550 1330 10 Output Total 900 900 Balance -350 430 10 Weight 88 kg Intake: IV 10 10 10 Invasive Line 7 10 10 10 Oral 540 1320 Output: Urine 900 900 Other: Voiding Method Indwelling Catheter Indwelling Catheter Indwelling Catheter # Bowel Movements 1 - Exam GENERAL: The patient is alert and oriented x3, not in any acute distress. Well developed, well nourished. HEENT: Pupils are round and equally reacting to light. EOMI. No scleral icterus. No conjunctival pallor. Normocephalic, atraumatic. No pharyngeal erythema. No thyromegaly. CARDIOVASCULAR: S1 and S2 present. No murmurs, rubs, or gallops. PULMONARY: Chest is clear to auscultation, no wheezing , no crackles. ABDOMEN: Soft, nontender, nondistended, normoactive bowel sounds. No palpable organomegaly. MUSCULOSKELETAL: No joint swelling or deformity. EXTREMITIES: No cyanosis, clubbing, or pedal edema. NEUROLOGICAL: Gross neurological examination did not reveal any focal deficits. SKIN: No rashes. no petechiae. - Labs CBC & Chem 7: 04/23/25 08:48 04/26/25 10:43 Labs: Abnormal Lab Results - Last 24 Hours (Table) 04/26/25 04/26/25 04/26/25 Range/Units 07:03 10:43 12:06 Sodium 133 L (137-145) mmol/L Chloride 97 L (98-107) mmol/L BUN 91 H (9-20) mg/dL Creatinine 2.95 H (0.66-1.25) mg/dL Glucose 233 H (74-99) mg/dL POC Glucose (mg/dL) 194 H 236 H (70-110) mg/dL Calcium 8.3 L (8.4-10.2) mg/dL 04/26/25 04/26/25 Range/Units 16:37 20:09 Sodium (137-145) mmol/L Chloride (98-107) mmol/L BUN (9-20) mg/dL Creatinine (0.66-1.25) mg/dL Glucose (74-99) mg/dL POC Glucose (mg/dL) 133 H 142 H (70-110) mg/dL Calcium (8.4-10.2) mg/dL Microbiology - Last 24 Hours (Table) 04/25/25 16:28 Urine Culture - Preliminary Urine,Voided Gram Neg Bacilli Assessment and Plan Assessment: Acute urinary tract infection secondary to gram-negative backslide diagnosed on 04/25 Acute kidney injury secondary to ATN secondary to cardiorenal syndrome. Received temporary dialysis catheter 04/17/2025. Received hemodialysis 04/17, 04/18 and 04/20 Acute anemia secondary to above with a hemoglobin of 6.4, status post 2 units of packed red blood cells, improved Hyperkalemia secondary to above, improved Hyponatremia, improved Metabolic acidosis improved Sinus pause with significant bradycardia requiring temporary venous pacer placement 04/17/2025 Acute exacerbation of chronic diastolic congestive heart failure Acute hypoxic respiratory failure secondary to above, currently on 10 L high flow nasal cannula Moderate to severe mitral regurgitation History of chronic kidney disease stage IV Diabetes mellitus with hyperglycemia//Diabetic neuropathy Coronary artery disease with previous coronary artery bypass grafting Plan: Continue with ceftriaxone. Follow-up urine culture Continue with oral Lasix per nephrology team Monitor creatinine and electrolytes Change Lantus to 13 units twice daily which is home dose but increase short acting insulin to 10 units with meals 3 times daily Nephrology team consult Cardiology and pulmonary team consult. Cardiology team sign off the case Labs and medication were reviewed.. Continue same treatment. Continue with symptomatic treatment. Resume home medication. Monitor labs and vitals. DVT and GI prophylaxis. Further recommendations as per clinical course of the patient DVT prophylaxis: no Subcutaneous heparin for severe anemia GI Prophylaxis: Pepcid and Protonix PT/OT: Pending Prognosis is guarded
[2025-04-27 07:08] LABS: Glucose,Whole Blood 237 mg/dL (70-110)
[2025-04-27 10:27] LABS: African American GFR (CKD) 25 (>60 ml/min/1.73 sqM); Anion Gap 9 mmol/L; Blood Urea Nitrogen 82 mg/dL (9-20); Calcium 8.3 mg/dL (8.4-10.2); Carbon Dioxide 27 mmol/L (22-30); Chloride 99 mmol/L (98-107); Glucose 331 mg/dL (74-99); Non-African American GFR(CKD) 21 (>60 ml/min/1.73 sqM); Potassium 4.7 mmol/L (3.5-5.1); Sodium 135 mmol/L (137-145)
[2025-04-27 12:09] LABS: Glucose,Whole Blood 403 mg/dL (70-110)
--- NOTE | 2025-04-27 12:57 | P.PN ---
Subjective Patient is seen for follow-up for acute kidney injury. Started hemodialysis on 04/17/2025. Renal function has improved and hemodialysis is on hold. Dialysis catheter has been removed. Urine output documented at 2.3 L for 24 hours Last hemodialysis on 05/19/2025 No significant complaints today. serum creatinine at 2.7 today. currently off of diuretics Objective - Vital Signs Vital signs: Vital Signs Temp 97.4 F L 04/27/25 11:56 Pulse 90 04/27/25 11:56 Resp 16 04/27/25 11:56 BP 134/72 04/27/25 11:56 Pulse Ox 100 04/27/25 11:56 FiO2 100 04/19/25 13:15 Intake & Output 04/26/25 04/27/25 04/27/25 18:59 06:59 18:59 Intake Total 1330 860 Output Total 900 1800 Balance 430 -940 Weight 91 kg Intake: IV 10 10 Invasive Line 7 10 10 Oral 1320 Other 850 Output: Urine 900 1800 Uretheral (Romeo) 900 Other: Voiding Method Indwelling Catheter Indwelling Catheter Indwelling Catheter # Bowel Movements 1 - Exam Patient is awake, comfortable, no acute distress Examination of the heart S1 and S2 Examination of the lungs bilateral breath sounds are heard Abdomen soft nontender Examination lower extremity shows no significant edema. [employer] CLERK exam grossly intact - Labs CBC & Chem 7: 04/23/25 08:48 04/27/25 10:05 Labs: Abnormal Lab Results - Last 24 Hours (Table) 04/26/25 04/26/25 04/27/25 Range/Units 16:37 20:09 06:57 Sodium (137-145) mmol/L BUN (9-20) mg/dL Creatinine (0.66-1.25) mg/dL Glucose (74-99) mg/dL POC Glucose (mg/dL) 133 H 142 H 237 H (70-110) mg/dL Calcium (8.4-10.2) mg/dL 04/27/25 04/27/25 Range/Units 10:05 11:58 Sodium 135 L (137-145) mmol/L BUN 82 H (9-20) mg/dL Creatinine 2.79 H (0.66-1.25) mg/dL Glucose 331 H (74-99) mg/dL POC Glucose (mg/dL) 403 H (70-110) mg/dL Calcium 8.3 L (8.4-10.2) mg/dL Microbiology - Last 24 Hours (Table) 04/24/25 14:40 Urine Culture - Final Urine,Catheterized Escherichia coli ESBL 04/25/25 16:28 Urine Culture - Preliminary Urine,Voided Gram Neg Bacilli Assessment and Plan Assessment: 1. Acute kidney injury secondary to ATN secondary to cardiorenal syndrome. Started on hemodialysis April 17, 2025 due to refractory hyperkalemia and oliguria. UA shows 2+ protein, large blood and WBCs more than 182 has femoral catheter. Kidney ultrasound from December 2024 showed no evidence of hydronephrosis. Now nonoliguric. Hemodialysis on hold for possible recovery of renal function with increased urine output. Last hemodialysis was 05/19/2025. Dialysis catheter removed on 04/24/2025 2. Chronic kidney disease stage IV with baseline creatinine 2.2-2.3. Etiology is diabetic kidney disease. 3. Hyperkalemia secondary to acute kidney injury and acidosis. Improved with dialysis. 4. Acute on chronic systolic CHF with ejection fraction of 40 to 45% with moderate mitral and tricuspid regurgitation. 5. Diabetes mellitus. 6. Coronary disease status post CABG. 7. Cardiac arrhythmia secondary to hyperkalemia. 8. Acute blood loss anemia status post blood transfusions. Also received IV DDAVP. 9. Volume overload, improved Plan: Continue to hold Lasix Patient may need Lasix 2-3 times a week post discharge. Stable for discharge from nephrology standpoint. repeat labs in a.m. Continue to avoid nephrotoxic agents
[2025-04-27 16:52] LABS: Glucose,Whole Blood 217 mg/dL (70-110)
[2025-04-27 20:19] LABS: Glucose,Whole Blood 104 mg/dL (70-110)
[2025-04-28 07:06] LABS: Glucose,Whole Blood 152 mg/dL (70-110)
--- NOTE | 2025-04-28 08:33 | P.PN ---
Subjective 74-year-old male patient with history of coronary artery disease with previous stent placement, subsequent coronary bypass grafting, peripheral arterial disease, diabetes mellitus, diabetic neuropathy, gastroesophageal reflux disease, hypertension, hyperlipidemia, hypothyroidism, former smoker who was brought in from the local [facility] with complaints of persistent nausea and shortness of breath. Chest x-ray reveals cardiomegaly and pulmonary vascular congestion. EKG revealed significant sinus pauses and bradycardia. White count 12.4. Hemoglobin 7.7. Platelets 270. Sodium 128. Potassium 7.7. Bicarb 17. BUN 83. Creatinine 3.68. Glucose 483. Acetone negative. proBNP 11,400. Troponin opponent negative x 1. He was taken to the Regulatory [facility]st for temporary venous pacemaker placement. He is seen in consultation in the intensive care unit. He is receiving a hemodialysis catheter. He is maintaining O2 saturations in the 90s on 2 L/min per nasal cannula. He is currently afebrile. Mean arterial pressure 68. Heart rate 60. He is on normal saline at 50 mL/h. Receiving Lasix 40 mg IV every 12 hours. On an insulin drip at 10.7 units/h. 04/20/2025 Patient is seen and evaluated in follow-up in the intensive care unit. He is currently sitting up in bed. Awake and alert in no acute distress. Maintaining good O2 saturations in the 90s on 3 L/min per nasal cannula. No IV fluids. - His temporary venous pacemaker was discontinued. Patient remains on Lantus and Humalog sliding scale; with Accu-Cheks before every meal and at bedtime with insulin sliding. Blood work is reviewed white count 7.7. Hemoglobin 7.7. Platelets 101. Sodium 133. Potassium 3.7. Bicarb 31. BUN 51. Creatinine 2.60. Glucose 200. - Chest x-ray reveals mild fluid volume overload; patient received Lasix 80 mg IV push x 1 yesterday --Hemodialysis, third session done yesterday - We will continue to monitor electrolytes - O2 saturation markedly improved currently on 3 L per nasal cannula 04/21 This is a pleasant 74 years old male who presents with acute CHF exacerbation, EF is 40 to 45% Also patient was found to have severe anemia status post 2 units of blood transfusion and thrombocytopenia which is mild but acute kidney injury was worsening and he was started on hemodialysis on 04/17. Patient is a known case of stage IV chronic kidney disease. Continue with IV Lasix per nephrology currently on 60 mg twice daily continue and electrolytes. Nephrology team consult Vital stable Creatinine 2.6 yesterday. Which is improving Check labs tomorrow 04/22 Patient still tachypneic and coughing but not bothering the patient much Romeo catheter in place Going to [facility]CF for rehab Eat meals well no other new signs symptoms He has 1 loose bowel movement yesterday but no abdominal pain. Discussed case with nephrology team would like to monitor 1 more day. Currently hemodialysis is on hold Remains on IV Lasix from 60 mg twice daily which, to be switched to the same dose upon discharge compared to 40 mg twice daily prior to hospitalization 04/23 Patient has left upper extremity swelling, venous Doppler ordered showing superficial vein thrombosis no significant pain or erythema Still mildly tachypneic Not on a blood thinner at home and on aspirin No other new complaint Today Lasix which and to oral dose 04/24 Patient overall was doing well clinically today, he was sitting up in bed breathing okay no other complaints or pain Temporal hemodialysis catheter was still on the left groin which was removed by vascular surgery team However his creatinine jumped up today to 3.2 compared to 2.6 yesterday. IV Lasix was held, most likely secondary to overdiuresis, this was precipitated by hyperglycemia causing more dehydration which might contributed to elevated creatinine. Therefore we increased his Lantus currently he was taking 24 units at bedtime we submitted back to 13 units twice daily because of his yearly morning hypoglycemia and also will increase short acting insulin from 5 units up to 10 units with meal Continue monitoring and if he keeps improving may be discharge in 24 to 48 hours 04/25 Patient was improving slowly and gradually, his IV Lasix was switched to oral dose and creatinine stable and down to 3.1 Patient was going been considered for possible discharge today however he developed fever of 100.4 workup showing abnormal urine analysis and culture of the urine growing gram-negative bacilli Patient started on ceftriaxone Nephrology team already cleared her for discharge Also using oral Lasix His temporal hemodialysis catheter was removed from his left groin yesterday and he tolerated the procedure well 04/26 Patient spiked a fever 100.4 secondary to UTI Urine cultures Gram negative bacilli On ceftriaxone Creatinine trending down 2.9 04/27 Patient was about to be discharged on Monday when he developed fever 100.4 We had recent urine culture which came back positive for ESBL E. coli and Proteus Other than that patient up in bed feels fine denies any specific complaints Objective - Vital Signs Vital signs: Vital Signs Temp 98.9 F 04/27/25 06:54 Pulse 66 04/27/25 06:54 Resp 16 04/27/25 06:54 BP 145/71 04/27/25 06:54 Pulse Ox 93 L 04/27/25 06:54 FiO2 100 04/19/25 13:15 Intake & Output 04/26/25 04/27/25 04/27/25 18:59 06:59 18:59 Intake Total 1330 860 Output Total 900 1800 Balance 430 -940 Weight 91 kg Intake: IV 10 10 Invasive Line 7 10 10 Oral 1320 Other 850 Output: Urine 900 1800 Uretheral (Romeo) 900 Other: Voiding Method Indwelling Catheter Indwelling Catheter # Bowel Movements 1 - Exam GENERAL: The patient is alert and oriented x3, not in any acute distress. Well developed, well nourished. HEENT: Pupils are round and equally reacting to light. EOMI. No scleral icterus. No conjunctival pallor. Normocephalic, atraumatic. No pharyngeal erythema. No thyromegaly. CARDIOVASCULAR: S1 and S2 present. No murmurs, rubs, or gallops. PULMONARY: Chest is clear to auscultation, no wheezing , no crackles. ABDOMEN: Soft, nontender, nondistended, normoactive bowel sounds. No palpable organomegaly. MUSCULOSKELETAL: No joint swelling or deformity. EXTREMITIES: No cyanosis, clubbing, or pedal edema. NEUROLOGICAL: Gross neurological examination did not reveal any focal deficits. SKIN: No rashes. no petechiae. - Labs CBC & Chem 7: 04/23/25 08:48 04/27/25 10:05 Labs: Abnormal Lab Results - Last 24 Hours (Table) 04/26/25 04/26/25 04/26/25 Range/Units 10:43 12:06 16:37 Sodium 133 L (137-145) mmol/L Chloride 97 L (98-107) mmol/L BUN 91 H (9-20) mg/dL Creatinine 2.95 H (0.66-1.25) mg/dL Glucose 233 H (74-99) mg/dL POC Glucose (mg/dL) 236 H 133 H (70-110) mg/dL Calcium 8.3 L (8.4-10.2) mg/dL 04/26/25 04/27/25 Range/Units 20:09 06:57 Sodium (137-145) mmol/L Chloride (98-107) mmol/L BUN (9-20) mg/dL Creatinine (0.66-1.25) mg/dL Glucose (74-99) mg/dL POC Glucose (mg/dL) 142 H 237 H (70-110) mg/dL Calcium (8.4-10.2) mg/dL Microbiology - Last 24 Hours (Table) 04/24/25 14:40 Urine Culture - Final Urine,Catheterized Escherichia coli ESBL 04/25/25 16:28 Urine Culture - Preliminary Urine,Voided Gram Neg Bacilli Assessment and Plan Assessment: Acute urinary tract infection secondary to ESBL E. coli and Proteus Acute kidney injury secondary to ATN secondary to cardiorenal syndrome. Re ceived temporary dialysis catheter 04/17/2025. Received hemodialysis 04/17, 04/18 and 04/20 Acute anemia secondary to above with a hemoglobin of 6.4, status post 2 units of packed red blood cells, improved Hyperkalemia secondary to above, improved Hyponatremia, improved Metabolic acidosis improved Sinus pause with significant bradycardia requiring temporary venous pacer placement 04/17/2025 Acute exacerbation of chronic diastolic congestive heart failure Acute hypoxic respiratory failure secondary to above, currently on 10 L high flow nasal cannula Moderate to severe mitral regurgitation History of chronic kidney disease stage IV Diabetes mellitus with hyperglycemia//Diabetic neuropathy Coronary artery disease with previous coronary artery bypass grafting Plan: Consult infectious disease team Continue with ceftriaxone. Follow-up urine culture Continue with oral Lasix per nephrology team Monitor creatinine and electrolytes Change Lantus to 13 units twice daily which is home dose but increase short acting insulin to 10 units with meals 3 times daily Nephrology team consult Cardiology and pulmonary team consult. Cardiology team sign off the case Labs and medication were reviewed.. Continue same treatment. Continue with symptomatic treatment. Resume home medication. Monitor labs and vitals. DVT and GI prophylaxis. Further recommendations as per clinical course of the patient DVT prophylaxis: no Subcutaneous heparin for severe anemia GI Prophylaxis: Pepcid and Protonix PT/OT: Pending Prognosis is guarded
--- NOTE | 2025-04-28 09:28 | P.PN ---
Subjective Patient is seen in follow-up for acute kidney injury on chronic kidney disease. Status post hemodialysis this admission with subsequent recovery of renal function. Has Romeo catheter. Nonoliguric. Vital signs are stable. General: Resting in bed. HEENT: On room air. LUNGS: No audible rhonchi or wheezes. HEART: Rate and Rhythm are regular. ABDOMEN: Obese. EXTREMITITES: Trace edema. Objective - Vital Signs Vital signs: Vital Signs Temp 98.3 F 04/28/25 07:52 Pulse 75 04/28/25 07:52 Resp 18 04/28/25 07:52 BP 152/71 04/28/25 07:52 Pulse Ox 94 L 04/28/25 07:52 FiO2 100 04/19/25 13:15 Intake & Output 04/27/25 04/28/25 04/28/25 18:59 06:59 18:59 Intake Total 1370 955 Output Total 1300 1100 350 Balance 70 -145 -350 Weight 91 kg Intake: Intake, IV Titration 50 Amount cefTRIAXone 1 gm In 50 Sodium Chloride 0.9% 50 ml @ 100 mls/hr IVPB Q24HR [facility] Rx#:[id number] Oral 1320 Other 955 Output: Urine 1300 1100 350 Other: Voiding Method Indwelling Catheter Indwelling Catheter Indwelling Catheter - Labs CBC & Chem 7: 04/23/25 08:48 04/27/25 10:05 Labs: Abnormal Lab Results - Last 24 Hours (Table) 04/27/25 04/27/25 04/27/25 Range/Units 10:05 11:58 16:51 Sodium 135 L (137-145) mmol/L BUN 82 H (9-20) mg/dL Creatinine 2.79 H (0.66-1.25) mg/dL Glucose 331 H (74-99) mg/dL POC Glucose (mg/dL) 403 H 217 H (70-110) mg/dL Calcium 8.3 L (8.4-10.2) mg/dL 04/28/25 Range/Units 07:04 Sodium (137-145) mmol/L BUN (9-20) mg/dL Creatinine (0.66-1.25) mg/dL Glucose (74-99) mg/dL POC Glucose (mg/dL) 152 H (70-110) mg/dL Calcium (8.4-10.2) mg/dL Microbiology - Last 24 Hours (Table) 04/25/25 16:28 Urine Culture - Final Urine,Voided Escherichia coli ESBL Proteus mirabilis Assessment and Plan Plan: Assessment: 1. Acute kidney injury secondary to ATN secondary to cardiorenal syndrome. Started on hemodialysis April 17, 2025 due to refractory hyperkalemia and oliguria. Renal function subsequently improved. Dialysis catheter removed. Kidney ultrasound from December 2024 showed no evidence of hydronephrosis. Now nonoliguric. Creatinine 2.79 yesterday. 2. Chronic kidney disease stage IV with baseline creatinine 2.2-2.3. Etiology is diabetic kidney disease. 3. Hyperkalemia secondary to acute kidney injury and acidosis. Improved with dialysis and diuresis. 4. Acute on chronic systolic CHF with ejection fraction of 40 to 45% with moderate mitral and tricuspid regurgitation. 5. Diabetes mellitus. 6. Coronary disease status post CABG. 7. Cardiac arrhythmia secondary to hyperkalemia. 8. Acute blood loss anemia status post blood transfusions. Also received IV DDAVP. Improved. Plan: Diuretics currently held. Advised patient to maintain low-salt diet and fluid restriction of less than 55 ounces per day upon discharge. Advised patient to monitor his weight closely at home and to notify physician if develops edema or gains more than 3 pounds in 1 week duration. Repeat BMP and magnesium level 2 to 3 days postdischarge. Follow-up outpatient 1 week postdischarge.
[2025-04-28 12:05] LABS: Glucose,Whole Blood 328 mg/dL (70-110)
[2025-04-28] MEDS: ERTAPENEM 0.5 GM in SODIUM CHLORIDE 0.9% 50 ML IVPB SCH (13:04)
--- NOTE | 2025-04-28 17:13 | XR ---
EXAMINATION TYPE: XR chest 1V portable DATE OF EXAM: 04/28/2025 5:08 PM COMPARISON: Chest radiographs from 04/24/2025 TECHNIQUE: XR chest 1V portable Portable AP radiograph of the chest. CLINICAL INDICATION:Male, 74 years old with history of shortness of breath; FINDINGS: Lungs/Pleura: There is no evidence of pleural effusion, focal consolidation, or pneumothorax. Diffus e interstitial prominence redemonstrated. Heart/mediastinum: Cardiomediastinal silhouette is enlarged and stable. Postoperative changes are pr esent in the mediastinum. Musculoskeletal: No acute osseous pathology. Midline sternotomy wires are noted and stable. IMPRESSION: Similar diffuse interstitial prominence suggesting pulmonary vascular congestion. No focal consolidat ion. [facility], , 04/28/2025 5:10 PM
[2025-04-28 17:16] LABS: Glucose,Whole Blood 229 mg/dL (70-110)
[2025-04-28 20:21] LABS: Glucose,Whole Blood 100 mg/dL (70-110)
--- NOTE | 2025-04-28 22:30 | P.CONS ---
History of Present Illness - Reason for Consult Consult date: 04/28/25 ESBL E. coli UTI Requesting physician: Aileen Poon - Chief Complaint Fever x 2 days - History of Present Illness Patient is a 74-year-old male with a past medical history significant for coronary artery disease hypertension hyperlipidemia reflux diabetes mellitus DC history of diabetic foot infection and osteomyelitis requiring amputation of the toe with initial presentation the hospital more than 10 days ago on 04/16/2025 for evaluation of persistent nausea and difficulty breathing patient has been evaluated by multiple store consultant including cardiology and nephrology pulmonary services in this patient also required dialysis during this hospital stay dialysis catheter has been subsequent discontinued patient did have a low- grade fever of 100.2 F on 04/24/2025 and a temperature of 100.4 F on 04/25/2025 40 the patient did have a UA obtained on 04/25/2025 which was significantly positive patient did not have any CBC done on 04/24 or 04/25/2025 last CBC on 04/23/2025 and his white count was normal patient did have a BUN of 82 creatinine 2.79 this morning patient did have a urine culture on 6 which grew ESBL E. coli with repeat culture on 04/25/2025 is growing Proteus and ESBL E. coli patient has been treated with Rocephin infectious he was consulted for further management of antibiotic therapy patient currently denies having any fever or drainage and the patient is breathing comfortably no chest pain or shortness of breath or cough denies any abdominal pain no nausea vomiting or diarrhea he did have a Romeo catheter Review of Systems Positive point and negatives has been mentioned in the HPI, complete review of systems was performed and all other systems are negative Past Medical History Past Medical History: Coronary Artery Disease (CAD), Diabetes Mellitus, GERD/Reflux, Hyperlipidemia, Hypertension, Myocardial Infarction (DC), Thyroid Disorder Additional Past Medical History / Comment(s): neuropathy, diabetic coma in 2000 and pt's sister has had legal guardianship since. Last Myocardial Infarction Date:: unknown History of Any Multi-Drug Resistant Organisms: ESBL Year Discovered:: 04/25/25 MDRO Source:: urine Past Surgical History: Appendectomy, Coronary Bypass/CABG, Heart Catheterization With Stent Additional Past Surgical History / Comment(s): Sister relays, "He had peripheral artery surgery too." Past Anesthesia/Blood Transfusion Reactions: No Reported Reaction Date of Last Stent Placement:: unknown Past Psychological History: Depression, Panic Disorder Smoking Status: Former smoker Past Alcohol Use History: Daily Past Drug Use History: Marijuana - Past Family History Father Family Medical History: Congestive Heart Failure (CHF) Mother Additional Family Medical History / Comment(s): of old age. Medications and Allergies Home Medications Medication Instructions Recorded Confirmed Type Aspirin [[place] Aspirin EC] 81 mg PO DAILY@1700 03/13/19 04/17/25 History Ferrous Sulfate [Iron (65 MG 325 mg PO TID@08,12,17 03/13/19 04/17/25 History Elemental)] Isosorbide Mononitrate ER [Imdur] 30 mg PO DAILY@0800 03/13/19 04/17/25 History Pantoprazole Sodium [Protonix] 40 mg PO DAILY@0800 03/13/19 04/17/25 History Escitalopram [Lexapro] 10 mg PO DAILY@0800 04/13/23 04/17/25 History Glucerna Shake 1 can PO DAILY PRN 09/24/23 04/17/25 History Magnesium Hydroxide [Milk of 7,200 mg PO Q48H PRN 09/24/23 04/17/25 History Magnesia Concentrate] Metoprolol Tartrate [Lopressor] 50 mg PO BID@0800,1700 09/24/23 04/17/25 History bisacodyL [Dulcolax] 10 mg RECTAL DAILY PRN 09/24/23 04/17/25 History Cholecalciferol [Vitamin D3 (25 25 mcg PO DAILY@0800 12/19/23 04/17/25 History Mcg = 1000 Iu)] Famotidine [Pepcid] 20 mg PO DAILY@0800 12/19/23 04/17/25 History Tamsulosin HCl [Flomax] 0.4 mg PO HS@2100 12/19/23 04/17/25 History Ondansetron [Zofran] 4 mg PO Q8H PRN 01/13/24 04/17/25 History amLODIPine [Norvasc] 5 mg PO BID@0800,2000 01/13/24 04/17/25 History Folic Acid 1 mg PO DAILY@1200 tab 01/23/24 04/17/25 Rx Nystatin 100,000 Unit/gm Powd 1 applic TOPICAL TID each 01/23/24 04/17/25 Rx [Mycostatin Powder] Acetaminophen [Tylenol 8 Hour] 650 mg PO Q6H PRN 02/16/24 04/17/25 History Ipratropium-Albuterol Nebulize 3 ml INHALATION RT-Q6H PRN 02/16/24 04/17/25 History [Duoneb 0.5 mg-3 mg/3 ml Soln] Multivitamins, Thera [Multivitamin 1 tab PO DAILY@1200 02/16/24 04/17/25 History (formulary)] INSULIN ASPART (NovoLOG) [NovoLOG 8 unit SQ W/LUNCH@1100 03/26/24 04/17/25 History (formulary)] INSULIN ASPART (NovoLOG) [NovoLOG See Protocol SQ 03/26/24 04/17/25 History (formulary)] ACHS@07,11,1630,2130 Gabapentin [Neurontin] 400 mg PO HS@2100 #3 cap 04/05/24 04/17/25 Rx Lactulose [Cephulac] 20 gm PO DAILY PRN ml 04/05/24 04/17/25 Rx Atorvastatin [Lipitor] 20 mg PO HS@2100 12/27/24 04/17/25 History Dextrose Chew [Glucose Chew Tab] 16 gm PO DAILY PRN 12/27/24 04/17/25 History Dulaglutide [Trulicity] 4.5 mg SQ SA@0800 12/27/24 04/17/25 History INSULIN ASPART (NovoLOG) [NovoLOG 10 unit SQ BID-W/MEALS@07,1630 12/27/24 04/17/25 History (formulary)] Insulin Glargine,Hum.rec.anlog 13 units SQ BID@0800,2100 12/27/24 04/17/25 History [Lantus Solostar Pen] Sennosides [Senokot] 8.6 mg PO BID@0800,1700 12/27/24 04/17/25 History Thiamine [Vitamin B-1] 100 mg PO BID@0800,1700 12/27/24 04/17/25 History HYDROcodone/APAP 7.5-325MG [[place] 1 tab PO Q6HR PRN 04/17/25 04/17/25 History 7.5-325] Levothyroxine Sodium [Synthroid] 175 mcg PO DAILY@0600 04/17/25 04/17/25 History Loperamide HCl [Imodium A-D] 4 mg PO BID PRN 04/17/25 04/17/25 History Na Phos,M-B/Na Phos,Di-Ba [Fleet 133 ml RECTAL DAILY 04/17/25 04/17/25 History Adult] SILVER sulfADIAZINE Cream 1 applic TOPICAL DAILY 04/17/25 04/17/25 History [Silvadene 1% Cream] Allergies Allergy/AdvReac Type Severity Reaction Status Date / Time No Known Allergies Allergy Verified 04/17/25 07:38 Physical Exam Vitals: Vital Signs Temp Pulse Resp BP Pulse Ox 04/28/25 07:52 98.3 F 75 18 152/71 94 L 04/28/25 01:27 98.4 F 77 18 135/75 96 04/27/25 19:41 97.9 F 78 17 154/72 97 04/27/25 11:56 97.4 F L 90 16 134/72 100 Intake and Output 04/27/25 04/28/25 04/28/25 22:59 06:59 14:59 Intake Total 1370 955 Output Total 1300 1100 350 Balance 70 -145 -350 Intake: Intake, IV Titration 50 Amount cefTRIAXone 1 gm In 50 Sodium Chloride 0.9% 50 ml @ 100 mls/hr IVPB Q24HR [facility] Rx#:[id number] Oral 1320 Other 955 Output: Urine 1300 1100 350 Other: Voiding Method Indwelling Catheter Indwelling Catheter Weight 91 kg GENERAL DESCRIPTION: Elderly male lying in bed, no distress. No tachypnea or accessory muscle of respiration use. HEENT: Shows Pallor , no scleral icterus. Oral mucous membrane is dry. No pharyngeal erythema or thrush NECK: Trachea central, no thyromegaly. LUNGS: Unlabored breathing. Clear to auscultation anteriorly. No wheeze or crackle. HEART: S1, S2, regular rate and rhythm. No loud murmur ABDOMEN: Soft, no tenderness , guarding or rigidity, no organomegaly EXTREMITIES: No edema of feet. SKIN: No rash, no masses palpable. NEUROLOGICAL: The patient is awake, alert, mood and affect normal. Results CBC & Chem 7: 04/23/25 08:48 04/27/25 10:05 Labs: Abnormal Lab Results - Last 24 Hours (Table) 04/27/25 04/27/25 04/28/25 Range/Units 11:58 16:51 07:04 POC Glucose (mg/dL) 403 H 217 H 152 H (70-110) mg/dL Microbiology - Last 24 Hours (Table) 04/25/25 16:28 Urine Culture - Final Urine,Voided Escherichia coli ESBL Proteus mirabilis Assessment and Plan (1) Fever Current Visit: Yes Status: Acute Code(s): R50.9 - FEVER, UNSPECIFIED SNOMED Code(s): 532983974 (2) Catheter-associated urinary tract infection Current Visit: Yes Status: Acute Code(s): T83.511A - I/I REACT D/T INDWELLING URETHRAL CATHETER, INIT; N39.0 - URINARY TRACT INFECTION, SITE NOT SPECIFIED SNOMED Code(s): 967613560 (3) ESBL (extended spectrum beta-lactamase) producing bacteria infection Current Visit: Yes Status: Acute Code(s): A49.9 - BACTERIAL INFECTION, UNSPECIFIED; Z16.12 - EXTENDED SPECTRUM BETA LACTAMASE (ESBL) RESISTANCE SNOMED Code(s): 689713308 Plan: 1patient who did have a multiple comorbidities and has been in the hospital for more than 12 days before initial evaluation in this patient who did have a low- grade fever on 04/24/2025 as well as 04/25/2025 and did have a urine culture done on both these positive for ESBL E. coli likely etiology of his fever is current no other obvious focus of infection in this patient did have a chronic indwelling Romeo catheter 2-discontinue Rocephin 3-we will start the patient on Invanz 500 mg daily as behaving more of a cystitis rather than deep infection consideration for 3 to 5-day course of therapy We will follow on clinical condition and cultures to further adjust medication if needed Thank you for this consultation we will follow the patient along with you Dictation was produced using [employer] dictation software. please excuse any grammatical, word or spelling errors. Time with Patient: Greater than 30
--- NOTE | 2025-04-29 05:40 | P.PN ---
Subjective Progress Note Date: 04/28/25 74-year-old male patient with history of coronary artery disease with previous stent placement, subsequent coronary bypass grafting, peripheral arterial disease, diabetes mellitus, diabetic neuropathy, gastroesophageal reflux disease, hypertension, hyperlipidemia, hypothyroidism, former smoker who was br ought in from the local [facility] with complaints of persistent nausea and shortness of breath. Chest x-ray reveals cardiomegaly and pulmonary vascular congestion. EKG revealed significant sinus pauses and bradycardia. White count 12.4. Hemoglobin 7.7. Platelets 270. Sodium 128. Potassium 7.7. Bicarb 17. BUN 83. Creatinine 3.68. Glucose 483. Acetone negative. proBNP 11,400. Troponin opponent negative x 1. He was taken to the [facility] for temporary venous pacemaker placement. He is seen in consultation in the intensive care unit. He is receiving a hemodialysis catheter. He is maintaining O2 saturations in the 90s on 2 L/min per nasal cannula. He is currently afebrile. Mean arterial pressure 68. Heart rate 60. He is on normal saline at 50 mL/h. Receiving Lasix 40 mg IV every 12 hours. On an insulin drip at 10.7 units/h. 04/20/2025 Patient is seen and evaluated in follow-up in the intensive care unit. He is currently sitting up in bed. Awake and alert in no acute distress. Maintaining good O2 saturations in the 90s on 3 L/min per nasal cannula. No IV fluids. - His temporary venous pacemaker was discontinued. Patient remains on Lantus and Humalog sliding scale; with Accu-Cheks before every meal and at bedtime with insulin sliding. Blood work is reviewed white count 7.7. Hemoglobin 7.7. Platelets 101. Sodium 133. Potassium 3.7. Bicarb 31. BUN 51. Creatinine 2.60. Glucose 200. - Chest x-ray reveals mild fluid volume overload; patient received Lasix 80 mg IV push x 1 yesterday --Hemodialysis, third session done yesterday - We will continue to monitor electrolytes - O2 saturation markedly improved currently on 3 L per nasal cannula 04/21 This is a pleasant 74 years old male who presents with acute CHF exacerbation, EF is 40 to 45% Also patient was found to have severe anemia status post 2 units of blood transfusion and thrombocytopenia which is mild but acute kidney injury was worsening and he was started on hemodialysis on 04/17. Patient is a known case of stage IV chronic kidney disease. Continue with IV Lasix per nephrology currently on 60 mg twice daily continue and electrolytes. Nephrology team consult Vital stable Creatinine 2.6 yesterday. Which is improving Check labs tomorrow 04/22 Patient still tachypneic and coughing but not bothering the patient much Romeo catheter in place Going to ECF for rehab Eat meals well no other new signs symptoms He has 1 loose bowel movement yesterday but no abdominal pain. Discussed case with nephrology team would like to monitor 1 more day. Currently hemodialysis is on hold Remains on IV Lasix from 60 mg twice daily which, to be switched to the same dose upon discharge compared to 40 mg twice daily prior to hospitalization 04/23 Patient has left upper extremity swelling, venous Doppler ordered showing superficial vein thrombosis no significant pain or erythema Still mildly tachypneic Not on a blood thinner at home and on aspirin No other new complaint Today Lasix which and to oral dose 04/24 Patient overall was doing well clinically today, he was sitting up in bed breathing okay no other complaints or pain Temporal hemodialysis catheter was still on the left groin which was removed by vascular surgery team However his creatinine jumped up today to 3.2 compared to 2.6 yesterday. IV Lasix was held, most likely secondary to overdiuresis, this was precipitated by hyperglycemia causing more dehydration which might contributed to elevated creatinine. Therefore we increased his Lantus currently he was taking 24 units at bedtime we submitted back to 13 units twice daily because of his yearly morning hypoglycemia and also will increase short acting insulin from 5 units up to 10 units with meal Continue monitoring and if he keeps improving may be discharge in 24 to 48 hours 04/25 Patient was improving slowly and gradually, his IV Lasix was switched to oral dose and creatinine stable and down to 3.1 Patient was going been considered for possible discharge today however he developed fever of 100.4 workup showing abnormal urine analysis and culture of t he urine growing gram-negative bacilli Patient started on ceftriaxone Nephrology team already cleared her for discharge Also using oral Lasix His temporal hemodialysis catheter was removed from his left groin yesterday and he tolerated the procedure well 04/26 Patient spiked a fever 100.4 secondary to UTI Urine cultures Gram negative bacilli On ceftriaxone Creatinine trending down 2.9 04/27 Patient was about to be discharged on Sar[facility]it when he developed fever 100.4 We had recent urine culture which came back positive for ESBL E. coli and Proteus Other than that patient up in bed feels fine denies any specific complaints 04/28/2025 Patient seen and evaluated in follow-up today asleep although overall. Patient is scheduled for return to [facility] where he resides discharge and is being treated for CHF exacerbation. Patient did have a spike in fever and repeat urinalysis was done showing UTI with E. coli and ESBL. Patient does have chronic indwelling Romeo catheter Review of systems: Constitutional: No reports of fatigue, fever, or chills Cardiovascular: No reports of chest pain or palpitations Respiratory: No reports of shortness of breath or cough GI: reports of nausea, no reports of of vomiting, : No reports of dysuria or retention Neurovascular: reports of generalized weakness, All medications have been reviewed Active Medications PHYSICAL EXAMINATION: GENERAL: The patient is alert and oriented x 3, Well developed, well nourished. Elderly appearing, chronically ill-appearing HEENT: Pupils are round and equally reacting to light. EOMI. no scleral icterus. No conjunctival pallor. Normocephalic, atraumatic. No pharyngeal erythema. No thyromegaly. CARDIOVASCULAR: S1 and S2 muffled PULMONARY: diminished breath sounds bilaterally with no wheezing or rhonchi noted. ABDOMEN: soft. Nontender on exam. non-distended, normoactive bowel sounds. No palpable organomegaly. MUSCULOSKELETAL: No joint swelling or deformity. EXTREMITIES: No cyanosis, clubbing, or pedal edema. NEUROLOGICAL: Gross neurological examination did not reveal any focal deficits. Diffuse weakness SKIN: No rashes. Assessment: Acute urinary tract infection secondary to ESBL E. coli and Proteus, secondary to chronic indwelling Romeo catheter Acute kidney injury secondary to ATN secondary to cardiorenal syndrome. Received temporary dialysis catheter 04/17/2025. Received hemodialysis 04/17, 04/18 and 04/20, recovered Acute anemia secondary to above with a hemoglobin of 6.4, status post 2 units of packed red blood cells, improved Hyperkalemia secondary to above, improved Hyponatremia, improved Metabolic acidosis improved Sinus pause with significant bradycardia requiring temporary venous pacer placement 04/17/2025 Acute exacerbation of chronic diastolic congestive heart failure Acute hypoxic respiratory failure secondary to above, currently on 10 L high flow nasal cannula Moderate to severe mitral regurgitation History of chronic kidney disease stage IV Diabetes mellitus with hyperglycemia//Diabetic neuropathy Coronary artery disease with previous coronary artery bypass grafting GI prophylaxis DVT prophylaxis Full code Plan: Patient is continued on antibiotics in the form of Invanz per infectious disease and Rocephin has been discontinued. Per ID behaving more of cystitis rather than deep infection and to consider 3 to 5-day course of IV Invanz Recommend to continue with Romeo catheter care Continue monitoring Accu-Cheks AC and at bedtime and adjust insulins accordingly Patient to follow-up with nephrology outpatient as well as cardiology. Plan will be for patient to return to [facility] where he resides on discharge with case management following. Will discuss further with infectious disease to determine discharge planning Due to multiple complex medical issues, overall prognosis is guarded Possible discharge in the next 24 to 48 hours The impression and plan of care has been dictated by Aileen Poon, nurse pr actitioner as directed. Dr. Fred MD I have performed a history and examination and MDM of this patient, discussed the same with the dictator, and agree with the dictator's assessment and plan as written ,documented as a scribe. Based on total visit time, I have performed more than 50% of the visit. Any additional findings or plans will be noted. Objective - Vital Signs Vital signs: Vital Signs Temp 98.2 F 04/28/25 12:50 Pulse 84 04/28/25 12:50 Resp 18 04/28/25 12:50 BP 138/70 04/28/25 12:50 Pulse Ox 97 04/28/25 12:50 FiO2 100 04/19/25 13:15 Intake & Output 04/27/25 04/28/25 04/28/25 18:59 06:59 18:59 Intake Total 1370 955 Output Total 1300 1100 350 Balance 70 -145 -350 Weight 91 kg Intake: Intake, IV Titration 50 Amount cefTRIAXone 1 gm In 50 Sodium Chloride 0.9% 50 ml @ 100 mls/hr IVPB Q24HR [facility] Rx#:[id number] Oral 1320 Other 955 Output: Urine 1300 1100 350 Other: Voiding Method Indwelling Catheter Indwelling Catheter Indwelling Catheter - Labs CBC & Chem 7: 04/23/25 08:48 04/27/25 10:05 Labs: Abnormal Lab Results - Last 24 Hours (Table) 04/27/25 04/28/25 04/28/25 Range/Units 16:51 07:04 12:01 POC Glucose (mg/dL) 217 H 152 H 328 H (70-110) mg/dL Microbiology - Last 24 Hours (Table) 04/25/25 16:28 Urine Culture - Final Urine,Voided Escherichia coli ESBL Proteus mirabilis
[2025-04-29 07:26] LABS: Glucose,Whole Blood 70 mg/dL (70-110)
[2025-04-29 08:00] LABS: Basophils # (A) 0.05 10*3/uL (0.00-0.10); Basophils % (A) 0.6 %; Eosinophils # (A) 0.33 10*3/uL (0.04-0.35); Eosinophils % (A) 4.1 %; HCT 30.7 % (39.6-50.0); HGB 9.4 g/dL (13.0-17.0); Lymphocytes # (A) 1.26 10*3/uL (0.90-5.00); Lymphocytes % (A) 15.6 %; MCH 28.1 pg (27.0-32.0); MCHC 30.6 g/dL (32.0-37.0); MCV 91.6 fL (80.0-97.0); Monocytes # (A) 0.65 10*3/uL (0.20-1.00); Monocytes % (A) 8.1 %; Neutrophils # (A) 5.74 10*3/uL (1.80-7.70); Neutrophils % (A) 71.1 %; RBC 3.35 10*6/uL (4.40-5.60); RDW 14.8 % (11.5-14.5); WBC 8.07 10*3/uL (4.50-10.00)
[2025-04-29 08:04] LABS: African American GFR (CKD) 23 (>60 ml/min/1.73 sqM); Anion Gap 9 mmol/L; Blood Urea Nitrogen 75 mg/dL (9-20); Calcium 9.0 mg/dL (8.4-10.2); Carbon Dioxide 26 mmol/L (22-30); Chloride 105 mmol/L (98-107); Glucose 75 mg/dL (74-99); Magnesium 1.9 mg/dL (1.6-2.3); Non-African American GFR(CKD) 20 (>60 ml/min/1.73 sqM); Potassium 5.0 mmol/L (3.5-5.1); Sodium 140 mmol/L (137-145)
[2025-04-29 08:55] LABS: Platelet Count 374 10*3/uL (140-440)
--- NOTE | 2025-04-29 10:55 | P.PN ---
Subjective Patient is seen in follow-up for acute kidney injury on chronic kidney disease. Status post hemodialysis this admission with subsequent recovery of renal function. Has Romeo catheter. Nonoliguric. Vital signs are stable. General: Resting in bed. HEENT: On room air. LUNGS: No audible rhonchi or wheezes. HEART: Rate and Rhythm are regular. ABDOMEN: Obese. EXTREMITITES: Trace edema. Objective - Vital Signs Vital signs: Vital Signs Temp 97.8 F 04/29/25 07:58 Pulse 71 04/29/25 07:58 Resp 19 04/29/25 07:58 BP 134/72 04/29/25 07:58 Pulse Ox 96 04/29/25 07:58 FiO2 100 04/19/25 13:15 Intake & Output 04/28/25 04/29/25 04/29/25 18:59 06:59 18:59 Intake Total 240 Output Total 900 1000 Balance -900 -1000 240 Weight 90 kg Intake: Oral 240 Output: Urine 900 1000 Other: Voiding Method Indwelling Catheter Indwelling Catheter Indwelling Catheter - Labs CBC & Chem 7: 04/29/25 05:17 04/29/25 05:17 Labs: Abnormal Lab Results - Last 24 Hours (Table) 04/28/25 04/28/25 04/29/25 Range/Units 12:01 17:12 05:17 RBC (4.40-5.60) 10*6/uL Hgb (13.0-17.0) g/dL Hct (39.6-50.0) % MCHC (32.0-37.0) g/dL RDW (11.5-14.5) % BUN 75 H (9-20) mg/dL Creatinine 2.97 H (0.66-1.25) mg/dL POC Glucose (mg/dL) 328 H 229 H (70-110) mg/dL C-Reactive Protein 2.3 H (<1.0) mg/dL 04/29/25 Range/Units 05:17 RBC 3.35 L (4.40-5.60) 10*6/uL Hgb 9.4 L (13.0-17.0) g/dL Hct 30.7 L (39.6-50.0) % MCHC 30.6 L (32.0-37.0) g/dL RDW 14.8 H (11.5-14.5) % BUN (9-20) mg/dL Creatinine (0.66-1.25) mg/dL POC Glucose (mg/dL) (70-110) mg/dL C-Reactive Protein (<1.0) mg/dL Assessment and Plan Plan: Assessment: 1. Acute kidney injury secondary to ATN secondary to cardiorenal syndrome. Started on hemodialysis April 17, 2025 due to refractory hyperkalemia and oliguria. Renal function subsequently improved. Dialysis catheter removed. Kidney ultrasound from December 2024 showed no evidence of hydronephrosis. Now nonoliguric. Creatinine fairly stable at 2.97 today. 2. Chronic kidney disease stage IV with baseline creatinine 2.2-2.3. Etiology is diabetic kidney disease. 3. Hyperkalemia secondary to acute kidney injury and acidosis. Improved with dialysis and diuresis. 4. Acute on chronic systolic CHF with ejection fraction of 40 to 45% with moderate mitral and tricuspid regurgitation. 5. Diabetes mellitus. 6. Coronary disease status post CABG. 7. Cardiac arrhythmia secondary to hyperkalemia. 8. Acute blood loss anemia status post blood transfusions. Also received IV DDAVP. Improved. Plan: Diuretics currently held. Advised patient to maintain low-salt diet and fluid restriction of less than 55 ounces per day upon discharge. Advised patient to monitor his weight closely at home and to notify physician if develops edema or gains more than 3 pounds in 1 week duration. Repeat BMP and magnesium level 2 to 3 days postdischarge. Follow-up outpatient 1 week postdischarge.
[2025-04-29 12:27] LABS: Glucose,Whole Blood 157 mg/dL (70-110)
[2025-04-29 14:10] VITALS: BP 152/68; PULSE 74; RESP 13; TEMP 97.6
--- NOTE | 2025-04-29 15:17 | P.DS ---
Providers Date of admission: 04/17/25 12:20 Expected date of discharge: 04/29/25 Attending physician: José Luis Parks Consults: 04/17/25 08:33 Consult Physician Routine Consulting Provider: Seb Saeed Consult Reason/Comments: CKD Do you want consulting provider notified?: Yes 04/17/25 13:10 Consult Physician Routine Consulting Provider: Alex Marshall Consult Reason/Comments: TVP today, K 8.3 Do you want consulting provider notified?: Already Contacted 04/17/25 13:27 Consult Physician Stat Consulting Provider: Alfredo Pascal Consult Reason/Comments: temporary HD cath needed now Do you want consulting provider notified?: Yes 04/23/25 08:37 Consult Physician Routine Consulting Provider: Alfredo Pascal Consult Reason/Comments: removal of dialysis cathter Do you want consulting provider notified?: Yes 04/27/25 18:11 Consult Physician Urgent Consulting Provider: Candido Fairbanks Consult Reason/Comments: esbl uti Do you want consulting provider notified?: Yes Primary care physician: Mika Bell Hospital Course: Final diagnosis Acute urinary tract infection secondary to ESBL E. coli and Proteus, secondary to chronic indwelling Romeo catheter, present on admission Acute kidney injury secondary to ATN secondary to cardiorenal syndrome. Received temporary dialysis catheter 04/17/2025. Received hemodialysis 04/17, 04/18 and 04/20, recovered Acute anemia secondary to above with a hemoglobin of 6.4, status post 2 units of packed red blood cells, improved Hyperkalemia secondary to above, improved Hyponatremia, improved Metabolic acidosis improved Sinus pause with significant bradycardia requiring temporary venous pacer placement 04/17/2025 Acute exacerbation of chronic diastolic congestive heart failure Acute hypoxic respiratory failure secondary to above, currently on 10 L high flow nasal cannula Moderate to severe mitral regurgitation History of chronic kidney disease stage IV Diabetes mellitus with hyperglycemia//Diabetic neuropathy Coronary artery disease with previous coronary artery bypass grafting GI prophylaxis DVT prophylaxis Full code Discharge disposition Patient is being discharged in a stable condition with guarded prognosis to [facility]. Patient will follow-up with Dr. Bell in the outpatient setting upon discharge. Patient is to continue with IV ertapenem daily for 5 days. Recommend follow-up with nephrology outpatient as scheduled. Total time taken is greater than 35 minutes. Hospital course This is a 74-year-old male who was recently admitted with acute kidney injury secondary to cardiorenal syndrome along with CHF exacerbation and acute hypoxic respiratory failure being closely monitored. Nephrology following closely and patient did require hemodialysis this hospitalization which was temporary d ialysis catheter was removed. Patient did spike some fevers and was noted to have urinary tract infection with chronic indwelling Romeo catheter that was likely present on admission as patient does have history of recurrent urinary tract infections. Patient did have indwelling Romeo catheter exchanged and recommend to change monthly. Continue Romeo catheter management. Patient did receive a midline and will continue on IV or ertapenem per ID recommendations as urine culture is showing E. coli with ESBL along with Proteus. Recommend repeat labs of CMP, CBC, magnesium in 2 to 3 days and also outpatient follow-up with nephrology. Patient has been cleared by consultations and will be returning to [facility]. Please refer to consultation notes for further HPI. Currently no reports of chest pain, shortness of breath, or palpitations. Patient is afebrile. No reports of nausea or vomiting and patient is tolerating diet. Patient will be going to [facility] where he resides today. Guarded prognosis and high risk for readmissions given significant comorbidities Physical exam: Gen: This is a 74-year-old male who is awake, alert and oriented x 2-3, baseline, well-developed, elderly appearing, chronically ill-appearing HEENT: Head is atraumatic, normocephalic. Pupils equal, round. Sclerae is anicteric. NECK: Supple. No JVD. No lymphadenopathy. No thyromegaly. LUNGS: Diminished breath sounds bilaterally otherwise clear to auscultation. No wheezes or rhonchi. No intercostal retractions. HEART: S1, S2 are muffled ABDOMEN: Soft. Bowel sounds are present. No masses. No tenderness. EXTREMITIES: No pedal edema. No calf tenderness. NEUROLOGICAL: Patient is awake, alert and oriented x2-3 cranial nerves 2 through 12 are grossly intact. Diffusely weak Please refer to medication reconciliation sheet for a list of medications. The impression and plan of care has been dictated by Aileen Poon, Nurse Practitioner as directed. Dr. Fred MD I have performed a history and examination and MDM of this patient, discussed the same with the dictator, and agree with the dictator's assessment and plan as written ,documented as a scribe. Based on total visit time, I have performed more than 50% of the visit. Patient Condition at Discharge: Stable Plan - Discharge Summary New Discharge Prescriptions: New Ertapenem [INVanz] 0.5 gm IVPB DAILY 5 Days #5 each Gabapentin [Neurontin] 200 mg PO HS cap Continue Pantoprazole Sodium [Protonix] 40 mg PO DAILY@0800 Ferrous Sulfate [Iron (65 MG Elemental)] 325 mg PO TID@08,12,17 Aspirin [Jefferson Aspirin EC] 81 mg PO DAILY@1700 Escitalopram [Lexapro] 10 mg PO DAILY@0800 bisacodyL [Dulcolax] 10 mg RECTAL DAILY PRN PRN Reason: Constipation Magnesium Hydroxide [Milk of Magnesia Concentrate] 7,200 mg PO Q48H PRN PRN Reason: Constipation Famotidine [Pepcid] 20 mg PO DAILY@0800 Tamsulosin HCl [Flomax] 0.4 mg PO HS@2100 Ondansetron [Zofran] 4 mg PO Q8H PRN PRN Reason: Nausea And Vomiting Folic Acid 1 mg PO DAILY@1200 tab Nystatin 100,000 Unit/gm Powd [Mycostatin Powder] 1 applic TOPICAL TID each Multivitamins, Thera [Multivitamin (formulary)] 1 tab PO DAILY@1200 Acetaminophen [Tylenol 8 Hour] 650 mg PO Q6H PRN PRN Reason: general discomfort INSULIN ASPART (NovoLOG) [NovoLOG (formulary)] See Protocol SQ ACHS@07,11,1630,2130 Sennosides [Senokot] 8.6 mg PO BID@0800,1700 INSULIN ASPART (NovoLOG) [NovoLOG (formulary)] 10 unit SQ BID-W/MEALS@07,1630 Insulin Glargine,Hum.rec.anlog [Lantus Solostar Pen] 13 units SQ BID@0800,2100 Dulaglutide [Trulicity] 4.5 mg SQ SA@0800 Atorvastatin [Lipitor] 20 mg PO HS@2100 Loperamide HCl [Imodium A-D] 4 mg PO BID PRN PRN Reason: Diarrhea SILVER sulfADIAZINE Cream [Silvadene 1% Cream] 1 applic TOPICAL DAILY Levothyroxine Sodium [Synthroid] 175 mcg PO DAILY@0600 Glucerna Shake 1 can PO DAILY PRN PRN Reason: low cbg Cholecalciferol [Vitamin D3 (25 Mcg = 1000 Iu)] 25 mcg PO DAILY@0800 amLODIPine [Norvasc] 5 mg PO BID@0800,2000 Ipratropium-Albuterol Nebulize [Duoneb 0.5 mg-3 mg/3 ml Soln] 3 ml INHALATION RT-Q6H PRN PRN Reason: Shortness Of Breath INSULIN ASPART (NovoLOG) [NovoLOG (formulary)] 8 unit SQ W/LUNCH@1100 Lactulose [Cephulac] 20 gm PO DAILY PRN ml PRN Reason: Constipation Dextrose Chew [Glucose Chew Tab] 16 gm PO DAILY PRN PRN Reason: low blood sugar Thiamine [Vitamin B-1] 100 mg PO BID@0800,1700 Na Phos,M-B/Na Phos,Di-Ba [Fleet Adult] 133 ml RECTAL DAILY Discontinued Isosorbide Mononitrate ER [Imdur] 30 mg PO DAILY@0800 HYDROcodone/APAP 7.5-325MG [[place] 7.5-325] 1 tab PO Q6HR PRN PRN Reason: Pain Metoprolol Tartrate [Lopressor] 50 mg PO BID@0800,1700 Gabapentin [Neurontin] 400 mg PO HS@2100 #3 cap Discharge Medication List Aspirin [Jefferson Aspirin EC] 81 mg PO DAILY@1700 03/13/19 [History] Ferrous Sulfate [Iron (65 MG Elemental)] 325 mg PO TID@08,12,17 03/13/19 [History] Pantoprazole Sodium [Protonix] 40 mg PO DAILY@0800 03/13/19 [History] Escitalopram [Lexapro] 10 mg PO DAILY@0800 04/13/23 [History] Glucerna Shake 1 can PO DAILY PRN 09/24/23 [History] Magnesium Hydroxide [Milk of Magnesia Concentrate] 7,200 mg PO Q48H PRN 09/24/23 [History] bisacodyL [Dulcolax] 10 mg RECTAL DAILY PRN 09/24/23 [History] Cholecalciferol [Vitamin D3 (25 Mcg = 1000 Iu)] 25 mcg PO DAILY@0800 12/19/23 [History] Famotidine [Pepcid] 20 mg PO DAILY@0800 12/19/23 [History] Tamsulosin HCl [Flomax] 0.4 mg PO HS@209912/19/23 [History] Ondansetron [Zofran] 4 mg PO Q8H PRN 01/13/24 [History] amLODIPine [Norvasc] 5 mg PO BID@0800,2000 01/13/24 [History] Folic Acid 1 mg PO DAILY@1200 tab 01/23/24 [Rx] Nystatin 100,000 Unit/gm Powd [Mycostatin Powder] 1 applic TOPICAL TID each 01/23/24 [Rx] Acetaminophen [Tylenol 8 Hour] 650 mg PO Q6H PRN 02/16/24 [History] Ipratropium-Albuterol Nebulize [Duoneb 0.5 mg-3 mg/3 ml Soln] 3 ml INHALATION RT-Q6H PRN 02/16/24 [History] Multivitamins, Thera [Multivitamin (formulary)] 1 tab PO DAILY@1200 02/16/24 [H istory] INSULIN ASPART (NovoLOG) [NovoLOG (formulary)] 8 unit SQ W/LUNCH@1100 03/26/24 [History] INSULIN ASPART (NovoLOG) [NovoLOG (formulary)] See Protocol SQ ACHS@07,11,1630,2130 03/26/24 [History] Lactulose [Cephulac] 20 gm PO DAILY PRN ml 04/05/24 [Rx] Atorvastatin [Lipitor] 20 mg PO HS@209912/27/24 [History] Dextrose Chew [Glucose Chew Tab] 16 gm PO DAILY PRN 12/27/24 [History] Dulaglutide [Trulicity] 4.5 mg SQ SA@0800 12/27/24 [History] INSULIN ASPART (NovoLOG) [NovoLOG (formulary)] 10 unit SQ BID-W/MEALS@07,1630 12/27/24 [History] Insulin Glargine,Hum.rec.anlog [Lantus Solostar Pen] 13 units SQ BID@0800,2100 12/27/24 [History] Sennosides [Senokot] 8.6 mg PO BID@0800,1700 12/27/24 [History] Thiamine [Vitamin B-1] 100 mg PO BID@0800,1700 12/27/24 [History] Levothyroxine Sodium [Synthroid] 175 mcg PO DAILY@0600 04/17/25 [History] Loperamide HCl [Imodium A-D] 4 mg PO BID PRN 04/17/25 [History] Na Phos,M-B/Na Phos,Di-Ba [Fleet Adult] 133 ml RECTAL DAILY 04/17/25 [History] SILVER sulfADIAZINE Cream [Silvadene 1% Cream] 1 applic TOPICAL DAILY 04/17/25 [History] Ertapenem [INVanz] 0.5 gm IVPB DAILY 5 Days #5 each 04/29/25 [Rx] Gabapentin [Neurontin] 200 mg PO HS cap 04/29/25 [Rx] Follow up Appointment(s)/Referral(s): Nisha Chaves MD [STAFF PHYSICIAN] - 1 Week Mika Bell DO [Primary Care Provider] - 1-2 days Arnulfo Edgar MD [STAFF PHYSICIAN] - 1 Week Activity/Diet/Wound Care/Special Instructions: Patient is going to [facility] as tolerated Patient has a midline and will continue on IV Invanz daily for the next 5 days per ID recommendations Continue with Romeo care and recommend exchanging at least monthly Repeat CBC, CMP, magnesium in 2 to 3 days Continue diabetic diet and monitoring Accu-Cheks ACH S Continue low-salt diet and fluid restrictions of less than 55 ounces daily Monitor weight daily and notify physician if more than 3 pounds in 1 week weight gain Adjust insulins accordingly NovoLog sliding scale 0-150 equals 0 units 151-200 equals 2 units 201-250 equals 4 units 251-300 equals 6 units 301-350 equals 8 units 351-400 equals 10 units Please notify provider if blood sugar is 400 or above Okay to discharge Per Dr. Chaves. 40mg Lasix BID. BMP 3-4 days Follow-up with nephrology outpatient . Discharge Disposition: TRANSFER TO SNF/ECF
--- NOTE | 2025-04-29 15:48 | P.PN ---
Subjective Progress Note Date: 04/29/25 Principal diagnosis: Reason for follow-up is ESBL E. coli UTI Patient is a 74-year-old male with a past medical history significant for coronary artery disease hypertension hyperlipidemia reflux diabetes mellitus MA history of diabetic foot infection and osteomyelitis requiring amputation of the toe with initial presentation the hospital more than 11 days ago on 04/16 for evaluation of persistent nausea and difficulty breathing, he did have low-grade fever with persistently positive urine culture with ESBL E. coli prompted this consultation. On today's evaluation that is 04/29/2025, Patient is afebrile this morning patient denies having any chest pain shortness of breath or cough, the patient is currently on room air, patient denies any abdominal pain no diarrhea no nausea no vomiting. Patient white count is 8.07, creatinine is 2.97 Objective - Vital Signs Vital signs: Vital Signs Temp 97.6 F 04/29/25 14:00 Pulse 74 04/29/25 14:00 Resp 13 04/29/25 14:00 BP 152/68 04/29/25 14:00 Pulse Ox 99 04/29/25 14:00 FiO2 100 04/19/25 13:15 Intake & Output 04/28/25 04/29/25 04/29/25 18:59 06:59 18:59 Intake Total 480 Output Total 900 1000 Balance -900 -1000 480 Weight 90 kg Intake: Oral 480 Output: Urine 900 1000 Other: Voiding Method Indwelling Catheter Indwelling Catheter Indwelling Catheter - Exam GENERAL DESCRIPTION: An elderly male lying in bed in no distress RESPIRATORY SYSTEM: Unlabored breathing , decreased breath sounds at bases HEART: S1 S2 regular rate and rhythm , ABDOMEN: Soft , no tenderness EXTREMITIES: No edema feet - Labs CBC & Chem 7: 04/29/25 05:17 04/29/25 05:17 Labs: Abnormal Lab Results - Last 24 Hours (Table) 04/28/25 04/29/25 04/29/25 Range/Units 17:12 05:17 05:17 RBC 3.35 L (4.40-5.60) 10*6/uL Hgb 9.4 L (13.0-17.0) g/dL Hct 30.7 L (39.6-50.0) % MCHC 30.6 L (32.0-37.0) g/dL RDW 14.8 H (11.5-14.5) % BUN 75 H (9-20) mg/dL Creatinine 2.97 H (0.66-1.25) mg/dL POC Glucose (mg/dL) 229 H (70-110) mg/dL C-Reactive Protein 2.3 H (<1.0) mg/dL 04/29/25 Range/Units 12:22 RBC (4.40-5.60) 10*6/uL Hgb (13.0-17.0) g/dL Hct (39.6-50.0) % MCHC (32.0-37.0) g/dL RDW (11.5-14.5) % BUN (9-20) mg/dL Creatinine (0.66-1.25) mg/dL POC Glucose (mg/dL) 157 H (70-110) mg/dL C-Reactive Protein (<1.0) mg/dL Assessment and Plan (1) Fever Current Visit: Yes Status: Acute Code(s): R50.9 - FEVER, UNSPECIFIED SNOMED Code(s): 388255218 (2) Catheter-associated urinary tract infection Current Visit: Yes Status: Acute Code(s): T83.511A - I/I REACT D/T INDWELLING URETHRAL CATHETER, INIT; N39.0 - URINARY TRACT INFECTION, SITE NOT SPECIFIED SNOMED Code(s): 444109166 (3) ESBL (extended spectrum beta-lactamase) producing bacteria infection Current Visit: Yes Status: Acute Code(s): A49.9 - BACTERIAL INFECTION, UNSPECIFIED; Z16.12 - EXTENDED SPECTRUM BETA LACTAMASE (ESBL) RESISTANCE SNOMED Code(s): 060801260 Plan: 1patient who did have a multiple comorbidities and has been in the hospital for more than 12 days before initial evaluation in this patient who did have a low- grade fever on 04/24/2025 as well as 04/25/2025 and did have a urine culture done on both these positive for ESBL E. coli likely etiology of his fever is current no other obvious focus of infection in this patient did have a chronic indwelling Romeo catheter 2-patient seem to have responded to Invanz 500 mg daily plan is for a short 5 to 7-day course of therapy discussed with CLIENT CUSTOMER MANAGER for admitting team working on discharge Dictation was produced using [employer] software. please excuse any grammatical, word or spelling errors. Time with Patient: Less than 30
--- NOTE | 2025-05-08 18:30 | CC ---
CARDIAC CATHETERIZATION REPORT INDICATION: High-grade complete heart block. PROCEDURE NOTE: After obtaining informed consent, a temporary transvenous pacemaker was performed via the right femoral vein. Femoral venous access was obtained using Seldinger technique, 6-Barbadian sheath was placed and temporary transvenous pacemaker was floated into the right ventricle under fluoroscopic guidance. Adequate pacing and sensing thresholds were obtained. It was sutured in place and the patient will be admitted to ICU for further care. Total sedation time was 15 minutes. SWATI / JOANNEN: [id number] /
== END 2025-04-29 16:38 | DRG 981 ==
LOC: EC 18:18 → 4SSUR 20:35 → 3SCARD 04-17 → 2SICU 04-17 11:19 → OBSVTOIN 04-17 12:20 → 3SCARD 04-20 14:57 → 5NMEDONC 04-24 22:04
PROVIDERS: ADMIT Hospitalist; ATTEND Hospitalist
PROC: 06HY33Z Insertion of Infusion Device into Lower Vein, Percutaneous Approach (ICD-10-PCS; 2025-04-17)
PROC: 5A1223Z Performance of Cardiac Pacing, Continuous (ICD-10-PCS; 2025-04-17)
PROC: 5A1D70Z Performance of Urinary Filtration, Intermittent, Less than 6 Hours Per Day (ICD-10-PCS; 2025-04-17)
PROC: 30233N1 Transfusion of Nonautologous Red Blood Cells into Peripheral Vein, Percutaneous Approach (ICD-10-PCS; 2025-04-17)
PROC: 02PA3MZ Removal of Cardiac Lead from Heart, Percutaneous Approach (ICD-10-PCS; principal; 2025-04-19)
PROC: 06PY33Z Removal of Infusion Device from Lower Vein, Percutaneous Approach (ICD-10-PCS; 2025-04-24)
PROC: 05HC33Z Insertion of Infusion Device into Left Basilic Vein, Percutaneous Approach (ICD-10-PCS; 2025-04-29)
DX: N17.0 Acute kidney failure with tubular necrosis (principal); G93.41 Metabolic encephalopathy; I50.23 Acute on chronic systolic (congestive) heart failure; J96.01 Acute respiratory failure with hypoxia; I44.2 Atrioventricular block, complete; D69.6 Thrombocytopenia, unspecified; I13.0 Hypertensive heart and chronic kidney disease with heart failure and stage 1 through stage 4 chronic kidney disease, or unspecified chronic kidney disease; J44.9 Chronic obstructive pulmonary disease, unspecified; E11.22 Type 2 diabetes mellitus with diabetic chronic kidney disease; N18.4 Chronic kidney disease, stage 4 (severe); I27.20 Pulmonary hypertension, unspecified; D63.1 Anemia in chronic kidney disease; F32.A Depression, unspecified; E03.9 Hypothyroidism, unspecified; I08.1 Rheumatic disorders of both mitral and tricuspid valves; I82.612 Acute embolism and thrombosis of superficial veins of left upper extremity; D62 Acute posthemorrhagic anemia; E87.20 Acidosis, unspecified; N13.8 Other obstructive and reflux uropathy; N39.0 Urinary tract infection, site not specified; E87.1 Hypo-osmolality and hyponatremia; Z16.12 Extended spectrum beta lactamase (ESBL) resistance; T83.511A Infection and inflammatory reaction due to indwelling urethral catheter, initial encounter; I49.5 Sick sinus syndrome; Z79.4 Long term (current) use of insulin; E11.40 Type 2 diabetes mellitus with diabetic neuropathy, unspecified; E11.51 Type 2 diabetes mellitus with diabetic peripheral angiopathy without gangrene; E11.65 Type 2 diabetes mellitus with hyperglycemia; E11.649 Type 2 diabetes mellitus with hypoglycemia without coma; Z89.412 Acquired absence of left great toe; Z89.429 Acquired absence of other toe(s), unspecified side; E87.5 Hyperkalemia; I44.0 Atrioventricular block, first degree; E86.0 Dehydration; I95.9 Hypotension, unspecified; B96.4 Proteus (mirabilis) (morganii) as the cause of diseases classified elsewhere; B96.20 Unspecified Escherichia coli [E. coli] as the cause of diseases classified elsewhere; I25.10 Atherosclerotic heart disease of native coronary artery without angina pectoris; E78.5 Hyperlipidemia, unspecified; K21.9 Gastro-esophageal reflux disease without esophagitis; N40.1 Benign prostatic hyperplasia with lower urinary tract symptoms; I25.2 Old myocardial infarction; F41.0 Panic disorder [episodic paroxysmal anxiety]; Z79.82 Long term (current) use of aspirin; Z79.85 Long-term (current) use of injectable non-insulin antidiabetic drugs; Z79.890 Hormone replacement therapy; Z79.899 Other long term (current) drug therapy; Z86.14 Personal history of Methicillin resistant Staphylococcus aureus infection; Z95.5 Presence of coronary angioplasty implant and graft; Z87.891 Personal history of nicotine dependence; Z95.1 Presence of aortocoronary bypass graft; Z87.440 Personal history of urinary (tract) infections; T50.2X5A Adverse effect of carbonic-anhydrase inhibitors, benzothiadiazides and other diuretics, initial encounter; W19.XXXA Unspecified fall, initial encounter; Y84.6 Urinary catheterization as the cause of abnormal reaction of the patient, or of later complication, without mention of misadventure at the time of the procedure
CPT/HCPCS: 33210; 36410; 36415; 36600; 71045; 71046; 76937; 80048; 80053; 81001; 82009; 82803; 82805; 83036; 83605; 83735; 83880; 84100; 84132; 84484; 85025; 85027; 85610; 85730; 86140; 86706; 86850; 86900; 86901; 86920; 87077; 87086; 87186; 87340; 90935; 93005; 93306; 94760; 96374; 96375; 96376; 99285